=== PATIENT | male | born 1935 | race Caucasian/White ===

== ENCOUNTER 2016-03-08 13:02 | Inpatient (IN) | payer OTHER ==
[~2016-03-08] VITALS: Ht 177.8 cm; Wt 84.7 kg
[~2016-03-08 13:02] MED LIST: AMIO200T4 PO; ASCO250T4 PO; BUME2TAB3 PO; CALC-220 PO; CALC0.2510 PO; CARV25TA2 PO; CHOL100010 PO; CLOP1TAB5 PO; FINA5TAB4 PO; LEVAAER2 INH; MULT-618 PO; NITR0.4S UT; NORT10CA2 PO; NRN100 PO; NVLGI7030 SC; PANC1200 PO; PANT40TA PO; POTA10CA28 PO; SERT25TA PO; SIMV20TA2 PO; SLWMEC PO; SYMIN160 INH; TAMS0.4C59 PO; TRIA0.1C20 TOP; WARF3TAB PO
--- NOTE | 2016-03-08 13:18 | EMERGENCY ROOM VISIT NOTE ---
History Report prepared by Masoud: Binta Jimenez Under the Supervision of: Dr. Ayaan Patten M.D. First contact with patient: 13:07 Stated Complaint: LACERATION/FALOL/DIZZINESS History of Present Illness The patient is an 80 year old male who presents to the Emergency Room with complaints of a sudden syncopal episode that occurred prior to arrival. The patient states that he felt dizzy and lightheaded and then suddenly lost consciousness. He states that he didn't feel well this morning, noting that he didn't eat anything but took his medications. The patient notes that he hit his head during the fall, noting that he is experiencing pain to his head. He additionally notes numbness to his hands, back pain, and pain to his elbows. The patient denies any neck pain, abdominal pain, or hip pain. He notes a history of pancreatic cancer and diabetes. EMS notes that the patient's blood glucose level was low today. The patient notes that he is on Coumadin. Source of History: patient, EMS Onset: prior to arrival Position: other (syncopal) Quality: other (syncopal episode) Timing: other (sudden) Associated Symptoms: + LOC, + back pain, No abdominal pain, No neck pain Note: Associated Symptoms: head pain, numbness to hands, pain to elbows, hit head during fall. Review of Systems See HPI for pertinent positives & negatives. A total of 10 systems reviewed and were otherwise negative. 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 (8) CVA (cerebral vascular accident) (9) Depression (10) DM2 (diabetes mellitus, type 2) (11) Fall (12) GERD (gastroesophageal reflux disease) (13) HLD (hyperlipidemia) (14) HTN (hypertension) (15) Pancreatic cancer (16) Pancreatic insufficiency Surgical Problems: (1) H/O cervical spine surgery (2) H/O hernia repair (3) H/O percutaneous transluminal coronary angioplasty (4) History of cardiac cath (5) History of hip replacement (6) S/P cholecystectomy (7) S/P hip replacement (8) Stented coronary artery Family History Diabetes mellitus FH: cancer FH: gallbladder disease Heart disease Hypertension Kidney disease Lung disease Social History Smoking Status: Former Smoker Drug Use: none Marital Status: single, in relationship Housing Status: lives with family Occupation Status: retired Current/Historical Medications Scheduled Ascorbic Acid (Vitamin C), 500 MG PO DAILY Atorvastatin (Lipitor), 10 MG PO DAILY Calcitriol (Rocaltrol Cap), 0.25 MCG PO MWF Carvedilol (Coreg), 6.25 MG PO BID Cholecalciferol (Vitamin D), 5,000 INTER.UNIT PO DAILY Clopidogrel Bisulfate (Plavix), 75 MG PO DAILY Esomeprazole Magnesium (Nexium), 40 MG PO DAILY Fluticasone Furoate-Vilanterol (Breo Ellipta), 1 PUFF INH DAILY Fluticasone Propionate (Nasal) (Flonase Allergy Relief), 2 SPRAY RICHA DAILY Insulin Aspart Protamine & Asp (Novolog Mix 70/30), 28 UNITS SC QAM Insulin Aspart Protamine & Asp (Novolog Mix 70/30), 12 UNITS SC QPM Magnesium Chloride (Mag64), 1 TAB PO DAILY Multiple Vitamins W/ Minerals (Centrum Silver Ultra Mens), 1 TABLET PO DAILY Nitroglycerin (Nitrostat), 0.4 MG UT PRN Pancrelipase (Lipase-Protease- (Creon 62276), 3 CAP PO with each meal Pancrelipase (Lipase-Protease- (Creon 50953), 1-2 CAP PO WITH SNACKS Potassium Chloride (Micro-K Ext Rel), 10 MEQ PO DAILY Sacubitril-Valsartan (Entresto 24-26 mg), 1 TAB PO BID Sertraline (Zoloft), 25 MG PO DAILY Tamsulosin Hcl (Flomax), 0.4 MG PO DAILY Torsemide (Demadex), 20 MG PO UD Warfarin Sodium (Coumadin), 3 MG PO UD Warfarin Sodium (Coumadin), 1.5 MG PO UD Scheduled PRN Levalbuterol (Xopenex Hfa), 2 PUFFS INH Q4H PRN for SOB/COUGH/WHEEZING Allergies Coded Allergies: Lisinopril (Verified Allergy, Unknown, RASH, 06/24/15) Spironolactone (Verified Allergy, Unknown, unkn, 06/24/15) Zolpidem (Verified Adverse Reaction, Unknown, HALLUCINATIONS, 06/24/15) Physical Exam Vital Signs Date Time Temp Pulse Resp B/P Pulse Ox O2 Delivery O2 Flow Rate FiO2 03/08/16 16:24 112/63 03/08/16 15:55 98/53 03/08/16 15:46 68 20 87/47 96 Room Air 69/45 03/08/16 13:24 67 03/08/16 13:24 36.6 57 14 102/50 94 Room Air Physical Exam GENERAL: Patient is well appearing and in minimal distress. HEENT: Small laceration over top of head. Normocephalic, mucous membranes moist , no nasal congestion, no scleral icterus. NECK: No stridor, no adenopathy, no meningismus, trachea is midline. LUNGS: No dyspnea. Clear to auscultation and equal bilaterally. No wheeze, no rhonchi. HEART: Regular rate and rhythm. No murmurs, rubs, gallops appreciated. ABDOMEN: Soft, nontender, bowel sounds positive, no masses appreciated, no peritonitis. BACK: Abrasion over left flank, nontender. No midline tenderness, no CVA tenderness EXTREMITIES: Tenderness to palpation mildly over the left elbow. Mild tenderness just below left scapula. Normal motion all extremities, no cyanosis , no edema. NEUROLOGIC: Alert and oriented, no acute motor or sensory deficits, no focal weakness, cranial nerves grossly intact. SKIN: No rash, no jaundice, no diaphoresis. Medical Decision & Procedures ER Provider Diagnostic Interpretation: X ray results and stated below per my interpretation and radiologist interpretation. Other radiology results and stated below per my review and radiologist interpretation: CT HEAD WITHOUT CONTRAST (CT) CLINICAL HISTORY: Head trauma, syncope. Head pain. Cough and laceration. COMPARISON STUDY: 08/22/2012 TECHNIQUE: Axial CT of the brain is performed from the vertex to the skull base. IV contrast was not administered for this examination. CT DOSE: 729.78 mGycm FINDINGS: There is scaphocephaly. No intra or extra-axial mass lesions are visualized. There is no CT evidence of acute cortical infarction. There is no evidence of midline shift. There is no acute hemorrhage. No calvarial fractures are visualized. There are patchy white matter hypodensities likely on a small vessel basis. There is a right parietal hypodensity involving both pearce and white matter. This is consistent with an area of prior infarction. There is no evidence of pathologic ventricular dilatation. There is no evidence of acute sinusitis IMPRESSION: Interval right parietal infarct. No acute intracranial findings. Electronically signed by: Mohsen Dobbs M.D. 03/08/2016 2:06 PM CHEST ONE VIEW PORTABLE CLINICAL HISTORY: Syncope COMPARISON STUDY: Chest radiograph June 24, 2015 FINDINGS: Lung volumes are normal. There is no consolidation or evidence of pulmonary edema. Apparent mild increase in mediastinal widening and cardiomegaly is likely due to supine technique. There is decreased sensitivity for detection of pneumothorax but no pneumothorax is identified. IMPRESSION: 1. No acute findings. 2. Apparent increase in size of the cardiac silhouette and mediastinal widening is likely due to supine technique. Electronically signed by: Torsten Dorsey M.D. 03/08/2016 1:[address] DOSE: 953.29 mGycm HISTORY: Trauma. Neuropathy. syncope left arm tingling TECHNIQUE: Multiaxial CT images of the cervical spine were performed and reformatted in the sagittal and coronal plane without the use of contrast. COMPARISON: None. FINDINGS: No evidence for compression deformity. Considerable degenerative change throughout the entire cervical region. Posterior laminectomies from C3 through C7. Considerable degenerative changes C1-C2 complex as well as all lateral facets. Mild anterior and posterior osteophytic reaction throughout. No acute bony abnormality. IMPRESSION: Findings of severe degenerative change combined with extensive posterior laminectomy defects. No acute process is appreciated. Electronically signed by: Korey Aguero M.D. 03/08/2016 2:11 PM Laboratory Results 03/08/16 13:40 Red Blood Count 4.76, Mean Corpuscular Volume 89.1, Mean Corpuscular Hemoglobin 30.7, Mean Corpuscular Hemoglobin Concent 34.4, Mean Platelet Volume 10.0, Neutrophils (%) (Auto) 69.6, Lymphocytes (%) (Auto) 19.8, Monocytes (%) (Auto) 8.6, Eosinophils (%) (Auto) 1.0, Basophils (%) (Auto) 0.2, Neutrophils # (Auto) 8.53, Lymphocytes # (Auto) 2.42, Monocytes # (Auto) 1.05, Eosinophils # (Auto) 0.12, Basophils # (Auto) 0.02 03/08/16 13:40 Test 03/08/16 13:40 White Blood Count 12.24 K/uL (4.8-10.8) Red Blood Count 4.76 M/uL (4.7-6.1) Hemoglobin 14.6 g/dL (14.0-18.0) Hematocrit 42.4 % (42-52) Mean Corpuscular Volume 89.1 fL (80-100) Mean Corpuscular Hemoglobin 30.7 pg (25-34) Mean Corpuscular Hemoglobin Concent 34.4 g/dl (32-36) Platelet Count 211 K/uL (130-400) Mean Platelet Volume 10.0 fL (7.4-10.4) Neutrophils (%) (Auto) 69.6 % Lymphocytes (%) (Auto) 19.8 % Monocytes (%) (Auto) 8.6 % Eosinophils (%) (Auto) 1.0 % Basophils (%) (Auto) 0.2 % Neutrophils # (Auto) 8.53 K/uL (1.4-6.5) Lymphocytes # (Auto) 2.42 K/uL (1.2-3.4) Monocytes # (Auto) 1.05 K/uL (0.11-0.59) Eosinophils # (Auto) 0.12 K/uL (0-0.5) Basophils # (Auto) 0.02 K/uL (0-0.2) RDW Standard Deviation 55.6 fL (36.4-46.3) RDW Coefficient of Variation 17.0 % (11.5-14.5) Immature Granulocyte % (Auto) 0.8 % Immature Granulocyte # (Auto) 0.10 K/uL (0.00-0.02) Ovalocytes 1+ Prothrombin Time 56.2 SECONDS (9.0-12.0) Prothromb Time International Ratio 4.9 (0.9-1.1) Activated Partial Thromboplast Time 40.6 SECONDS (21.0-31.0) Partial Thromboplastin Ratio 1.6 Anion Gap 9.0 mmol/L (3-11) Est Creatinine Clear Calc Drug Dose 25.5 ml/min Estimated GFR () 25.7 Estimated GFR (Non- 22.1 BUN/Creatinine Ratio 35.6 (10-20) Calcium Level 9.0 mg/dl (8.5-10.1) Magnesium Level 2.6 mg/dl (1.8-2.4) Laboratory results as reviewed by me. Medications Administered Medications (Trade) Dose Ordered Sig/Quoc Route Start Time Stop Time Status Last Admin Dose Admin Sodium Chloride (Nss 500ml) 500 ml @ 999 mls/hr Q31M STAT IV 03/08/16 15:51 03/08/16 16:21 DC 03/08/16 15:45 999 MLS/HR ECG Indication: syncope Rate (beats per minute): 40 Rhythm: atrial fibrillation Findings: PVC (multiple), no acute ischemic change ED Course 1310: The patient was evaluated in room B11. A complete history and physical exam was performed. 1439: I reevaluated the patient at this time and he is feeling much better. The patient's is now present and notes that the patient never passed out. She states that the patient became lightheaded and dizzy, and was on the floor, but states that he was not unconscious. 1455: Upon reevaluation, the patient is resting comfortably. I discussed results and treatment plan with the patient. He verbalized understanding and agreement with the treatment plan. The patient will be evaluated for further management. 1502: I discussed the patient's case with Inge Kirkpatrick. He is going to evaluate the patient for further treatment. 1551: Ordered Sodium Chloride 500 ml @ 999 mls/hr IV. 1554: The patient is now hypotensive, but after 500 ml of fluid, his blood pressure is now 98/66 mmHg. He states that he feels fine and I made Inge Kirkpatrick aware of the situation. Medical Decision Differential: Vaso-vagal, Intracerebral Event, Neurologic, Infectious, Volume Deficiency, Hypoglycemia, Electrolyte Abnormality, Cardiac Source, Toxicologic, amongst other pathologies entertained. 80 yr old male arrives for evaluation following near-(vs Total)-Syncopal event resulting in abrasion to top of head. Afib quite bradycardic with many PVCs. Did become significantly hypotensive of uncertain etiology which resolved with fluid bolus. This I am concerned for possible medication accidental OD as he does not at this time appear to have sepsis. Stable and feeling well throughout entire time. Mild bump Cr though not in failure. No symptoms even during hypotension (verified bilateral arms). Will need to come in for further work-up and evaluation. Consults Time Called: 1450 Consulting Physician: Inge Kirkpatrick Returned Call: [phone] I discussed the patient's case with Inge Kirkpatrick. He is going to evaluate the patient for further treatment. Impression Primary Impression: Bradycardia Additional Impressions: Syncope, Closed head injury, Supratherapeutic INR, Acute on chronic renal insufficiency Scribe Attestation The scribe's documentation has been prepared under my direction and personally reviewed by me in its entirety. I confirm that the note above accurately reflects all work, treatment, procedures, and medical decision making performed by me. Departure Information Dispostion Being Evaluated By Hospitalist Referrals Jadiel Ferrer M.D. (PCP)
--- NOTE | 2016-03-08 13:41 | DIAGNOSTIC IMAGING REPORT ---
CHEST ONE VIEW PORTABLE CLINICAL HISTORY: Syncope COMPARISON STUDY: Chest radiograph June 24, 2015 FINDINGS: Lung volumes are normal. There is no consolidation or evidence of pulmonary edema. Apparent mild increase in mediastinal widening and cardiomegaly is likely due to supine technique. There is decreased sensitivity for detection of pneumothorax but no pneumothorax is identified. IMPRESSION: 1. No acute findings. 2. Apparent increase in size of the cardiac silhouette and mediastinal widening is likely due to supine technique. Electronically signed by: Torsten Dorsey M.D. 03/08/2016 1:39 PM
[2016-03-08 13:56] LABS: HEMATOCRIT 42.4 % (42-52); MEAN CELL VOLUME 89.1 fL (80-100); MEAN CORPUSCULAR HEMOGLOBIN 30.7 pg (25-34); MEAN CORPUSCULAR HGB CONC 34.4 g/dl (32-36); PLATELET COUNT 211 K/uL (130-400); RED BLOOD COUNT 4.76 M/uL (4.7-6.1); WHITE BLOOD COUNT 12.24 K/uL (4.8-10.8)
--- NOTE | 2016-03-08 14:07 | DIAGNOSTIC IMAGING REPORT ---
CT HEAD WITHOUT CONTRAST (CT) CLINICAL HISTORY: Head trauma, syncope. Head pain. Cough and laceration. COMPARISON STUDY: 08/22/2012 TECHNIQUE: Axial CT of the brain is performed from the vertex to the skull base. IV contrast was not administered for this examination. CT DOSE: 729.78 mGycm FINDINGS: There is scaphocephaly. No intra or extra-axial mass lesions are visualized. There is no CT evidence of acute cortical infarction. There is no evidence of midline shift. There is no acute hemorrhage. No calvarial fractures are visualized. There are patchy white matter hypodensities likely on a small vessel basis. There is a right parietal hypodensity involving both pearce and white matter. This is consistent with an area of prior infarction. There is no evidence of pathologic ventricular dilatation. There is no evidence of acute sinusitis IMPRESSION: Interval right parietal infarct. No acute intracranial findings. Electronically signed by: Mohsen Dobbs M.D. 03/08/2016 2:06 PM
[2016-03-08 14:12] LABS: PARTIAL THROMBOPLASTIN RATIO 1.6; PROTHROMBIN TIME (PATIENT) 56.2 SECONDS (9.0-12.0)
--- NOTE | 2016-03-08 14:12 | DIAGNOSTIC IMAGING REPORT ---
CERVICAL SPINE CT CT DOSE: 953.29 mGycm HISTORY: Trauma. Neuropathy. syncope left arm tingling TECHNIQUE: Multiaxial CT images of the cervical spine were performed and reformatted in the sagittal and coronal plane without the use of contrast. COMPARISON: None. FINDINGS: No evidence for compression deformity. Considerable degenerative change throughout the entire cervical region. Posterior laminectomies from C3 through C7. Considerable degenerative changes C1-C2 complex as well as all lateral facets. Mild anterior and posterior osteophytic reaction throughout. No acute bony abnormality. IMPRESSION: Findings of severe degenerative change combined with extensive posterior laminectomy defects. No acute process is appreciated. Electronically signed by: Korey Aguero M.D. 03/08/2016 2:11 PM
[2016-03-08 14:19] LABS: BASO % 0.2 %; BASO ABS # 0.02 K/uL (0-0.2); COMPLETE YES; IG% 0.8 %; LYMPH % 19.8 %; LYMPH ABS # 2.42 K/uL (1.2-3.4); MONO % 8.6 %; NEUT % 69.6 %; OVALOCYTES 1+
[2016-03-08 14:22] LABS: INR 4.9 (0.9-1.1)
[2016-03-08] MEDS ORDERED: FLUT0.15 NAE (14:38)
[2016-03-08 14:39] LABS: BUN/CREATININE RATIO 35.6 (10-20); CREATININE 2.6 mg/dl (0.60-1.40)
[2016-03-08] MEDS ORDERED: FLUT1INH INH (14:39)
[2016-03-08] MEDS ORDERED: TORS20TA2 PO (14:39)
[2016-03-08] MEDS ORDERED: CARV6.25 PO (14:39)
[2016-03-08] MEDS ORDERED: NXM/40 PO (14:39)
[2016-03-08] MEDS ORDERED: SACU1TAB PO (14:39)
[2016-03-08] MEDS ORDERED: ATOR10TA88 PO (14:39)
[2016-03-08] MEDS ORDERED: SODIUM CHLORIDE 0.9% 500ML 500 ML IV STA (15:51)
[2016-03-08] MEDS ORDERED: NITROGLYCERIN 0.4 MG SL PER TAB CHARGE SL PRN (17:00)
[2016-03-08] MEDS ORDERED: ONDANSETRON INJ 2 MG/ML 2 ML VIAL IV PRN (17:00)
[2016-03-08] MEDS ORDERED: GLUCOSE 10 TABS/TUBE PO PRN (17:15)
[2016-03-08] MEDS ORDERED: GLUCOSE 40% GEL 15 GM TUBE PO PRN (17:15)
[2016-03-08] MEDS ORDERED: GLUCAGON FOR INJ 1 MG VIAL SQ PRN (17:15)
[2016-03-08] MEDS ORDERED: DEXTROSE 50% 50 ML SYR IV PRN (17:15)
[2016-03-08 18:10] LABS: MAGNESIUM 2.6 mg/dl (1.8-2.4)
[2016-03-08 18:43] VITALS: BP 104/50; PULSE 48; TEMP 36.7; O2SAT 97; BMI 29.4
[2016-03-08 19:19] VITALS: BP 107/57; PULSE 46; TEMP 36.3; O2SAT 97
[2016-03-08 19:30] VITALS: BP 106/49; PULSE 55; TEMP 36.3; O2SAT 95
[2016-03-08] MEDS ORDERED: PANCREAZE (LIPASE 10,500U) CAP PO PRN (19:45)
[2016-03-08] MEDS ORDERED: PHARMACY GLYCEMIC MGMT CONSULT PRN (19:45)
[2016-03-08 20:00] VITALS: O2SAT 95
[2016-03-08] MEDS ORDERED: SODIUM CHLORIDE 0.9% 1000ML 1,000 ML IV SCH (20:00)
[2016-03-08 20:04] LABS: URINE APPEARANCE CLEAR (CLEAR); URINE BILIRUBIN NEG (NEG); URINE COLOR YELLOW; URINE NITRITE NEG (NEG); URINE SPECIFIC GRAVITY 1.005 (1.000-1.030); UROBILINOGEN NEG (NEG)
[2016-03-08 20:05] LABS: MANUAL MICROSCOPIC REQUIRED? NO; REVIEW REQ? NO
[2016-03-08 20:22] LABS: CKMB/CK RATIO 7.9 (0-3.0)
[2016-03-08] MEDS: ACETAMINOPHEN 325 MG TAB PO PRN (20:47)
[2016-03-08] MEDS: INSULIN ASPART 100 UNITS/ML 3 ML PEN SC SCH (20:53)
[2016-03-08] MEDS: PANTOprazole INJ 40 MG in SYRINGE 0 ML IV SCH (21:41)
--- NOTE | 2016-03-08 22:42 | History and Physical ---
History & Physical Date & Time of Service: Mar 08, 2016 at 22:25 Chief Complaint: FALL Primary Care Physician: Jadiel Ferrer M.D. 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 Follows with [facility]. Patient admits to having poor appetite for the past few weeks now. Report intermittent dry heaving and epigastric pain. Today, patient woke up not feeling well- weak. He did not have breakfast, but administered usual Insulin dose. In the afternoon, patient got up from the chair and walked to go the bathroom. While walking, he felt dizziness and fell on the floor hitting his head on the cupboard. The fall was witnessed by his partner- no loss of consciousness, confusion, seizures noted. No chest pain,dyspnea, palpitations. Patient then brought to the ER by ambulance. At the ED, while being monitored, he was noted to be in A fib, HR 60s, but frequently drops to 30s. BP also noted to be as low as 69/45 as well, which responded to fluid challenge. On my exam, patient appears weak but alert, oriented, denies chest pain, dyspnea , dizziness, palpitations, nausea. Has some left shoulder pain after the fall. Past Medical/Surgical History Medical Problems: (1) Afib Status: Chronic (2) BPH (benign prostatic hyperplasia) Status: Chronic (3) CAD (coronary artery disease) Status: Chronic (4) CHF (congestive heart failure) Status: Chronic (5) CKD (chronic kidney disease), stage III Status: Chronic (6) COPD (chronic obstructive pulmonary disease) Status: Chronic (7) Current use of alf anticoagulation Status: Chronic (8) CVA (cerebral vascular accident) Status: Chronic (9) Depression Status: Chronic (10) DM2 (diabetes mellitus, type 2) Status: Chronic (11) GERD (gastroesophageal reflux disease) Status: Chronic (12) HLD (hyperlipidemia) Status: Chronic (13) HTN (hypertension) Status: Chronic (14) Pancreatic cancer Permanent Comment: [facility] 02/04 s/p neoadjuvant chemoradiotherapy 2005 Jason Urena MD Status: Chronic (15) Pancreatic insufficiency Status: Chronic Surgical Problems: (1) H/O cervical spine surgery Status: Chronic (2) H/O hernia repair Status: Chronic (3) H/O percutaneous transluminal coronary angioplasty Status: Resolved (4) History of cardiac cath Permanent Comment: with stent placement Status: Chronic (5) History of hip replacement Status: Chronic (6) S/P cholecystectomy Status: Chronic (7) S/P hip replacement Status: Chronic (8) Stented coronary artery Status: Chronic Family History Diabetes mellitus FH: cancer FH: gallbladder disease Heart disease Hypertension Kidney disease Lung disease Social History Smoking Status: Former Smoker Drug Use: none Marital Status: single, in relationship Housing status: lives with family Occupational Status: retired Immunizations History of Influenza Vaccine: Yes Influenza Vaccine Date: Jan 19, 2015 History of Tetanus Vaccine?: Unknown History of Pneumococcal: Yes Pneumococcal Date: Dec 21, 2010 History of Hepatitis B Vaccine: Unknown Multi-Drug Resistant Organisms History of MDRO: No Allergies Coded Allergies: Lisinopril (Verified Allergy, Unknown, RASH, 06/24/15) Spironolactone (Verified Allergy, Unknown, unkn, 06/24/15) Zolpidem (Verified Adverse Reaction, Unknown, HALLUCINATIONS, 06/24/15) Home Medications Scheduled Ascorbic Acid (Vitamin C), 500 MG PO DAILY Atorvastatin (Lipitor), 10 MG PO DAILY Calcitriol (Rocaltrol Cap), 0.25 MCG PO MWF Carvedilol (Coreg), 6.25 MG PO BID Cholecalciferol (Vitamin D), 5,000 INTER.UNIT PO DAILY Clopidogrel Bisulfate (Plavix), 75 MG PO DAILY Esomeprazole Magnesium (Nexium), 40 MG PO DAILY Fluticasone Furoate-Vilanterol (Breo Ellipta), 1 PUFF INH DAILY Fluticasone Propionate (Nasal) (Flonase Allergy Relief), 2 SPRAY RICHA DAILY Insulin Aspart Protamine & Asp (Novolog Mix 70/30), 28 UNITS SC QAM Insulin Aspart Protamine & Asp (Novolog Mix 70/30), 12 UNITS SC QPM Magnesium Chloride (Mag64), 1 TAB PO DAILY Multiple Vitamins W/ Minerals (Centrum Silver Ultra Mens), 1 TABLET PO DAILY Nitroglycerin (Nitrostat), 0.4 MG UT PRN Pancrelipase (Lipase-Protease- (Creon 59334), 3 CAP PO with each meal Pancrelipase (Lipase-Protease- (Creon 76866), 1-2 CAP PO WITH SNACKS Potassium Chloride (Micro-K Ext Rel), 10 MEQ PO DAILY Sacubitril-Valsartan (Entresto 24-26 mg), 1 TAB PO BID Sertraline (Zoloft), 25 MG PO DAILY Tamsulosin Hcl (Flomax), 0.4 MG PO DAILY Torsemide (Demadex), 20 MG PO UD Warfarin Sodium (Coumadin), 3 MG PO UD Warfarin Sodium (Coumadin), 1.5 MG PO UD Scheduled PRN Levalbuterol (Xopenex Hfa), 2 PUFFS INH Q4H PRN for SOB/COUGH/WHEEZING Review of Systems Constitutional- no fever; no weight loss Eyes- no acute visual changes ENT- no sinus drainage; no pharyngitis Pulmonary- no cough, no wheezing, no shortness of breath Cardiac- no chest pain, no palpitations, no orthopnea, no dependent edema GI- (+) as noted above - no dysuria, no hematuria Musculoskeletal- (+) left shoulder pain, no myalgias Derm- no rashes, no new skin lesions, no changing skin lesions Hematologic- no unusual bruising, no unusual bleeding Lymphatics- no adenopathy Endocrine- no polyuria or polydipsia; no heat or cold intolerance Neuro- no headaches, no focal neurologic symptoms Psych- no anxiety, no depression Physical Exam Vital Signs Date Time Temp Pulse Resp B/P Pulse Ox O2 Delivery O2 Flow Rate FiO2 03/08/16 19:30 36.3 55 18 106/49 95 Room Air 03/08/16 19:19 36.3 46 18 107/57 97 Room Air 03/08/16 18:43 36.7 48 19 104/50 97 Room Air 03/08/16 17:47 52 16 90/49 94 Room Air 03/08/16 16:24 112/63 03/08/16 15:55 98/53 03/08/16 15:46 68 20 87/47 96 Room Air 69/45 03/08/16 13:24 67 03/08/16 13:24 36.6 57 14 102/50 94 Room Air General Appearance: WD/WN, no apparent distress Head: + pertinent finding ((+) abrasion ont he left parietal region) Eyes: normal inspection, EOMI, sclerae normal ENT: normal ENT inspection, pharynx normal, + pertinent finding (poor hearing) Neck: supple, no adenopathy, thyroid normal, no JVD, trachea midline Respiratory/Chest: chest non-tender, lungs clear, normal breath sounds, no respiratory distress, no accessory muscle use Cardiovascular: no murmur, + irregularly irregular Abdomen/GI: normal bowel sounds, non tender, soft, no organomegaly Back: normal inspection, no CVA tenderness Extremities/Musculoskelatal: normal inspection, no calf tenderness, no pedal edema, normal range of motion Neurologic/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: 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, no motor/sensory deficits, alert, normal mood/affect, normal reflexes, oriented x 3 Skin: normal color, warm/dry, no rash Lymphatic: no adenopathy Diagnostics Laboratory Results Results Past 24 Hours Test 03/08/16 13:33 03/08/16 13:40 03/08/16 16:47 03/08/16 18:07 Range/Units Bedside Glucose 66 136 115 70-99 mg/dl White Blood Count 12.24 4.8-10.8 K/uL Red Blood Count 4.76 4.7-6.1 M/uL Hemoglobin 14.6 14.0-18.0 g/dL Hematocrit 42.4 42-52 % Mean Corpuscular Volume 89.1 80-100 fL Mean Corpuscular Hemoglobin 30.7 25-34 pg Mean Corpuscular Hemoglobin Concent 34.4 32-36 g/dl Platelet Count 211 130-400 K/uL Mean Platelet Volume 10.0 7.4-10.4 fL Neutrophils (%) (Auto) 69.6 % Lymphocytes (%) (Auto) 19.8 % Monocytes (%) (Auto) 8.6 % Eosinophils (%) (Auto) 1.0 % Basophils (%) (Auto) 0.2 % Neutrophils # (Auto) 8.53 1.4-6.5 K/uL Lymphocytes # (Auto) 2.42 1.2-3.4 K/uL Monocytes # (Auto) 1.05 0.11-0.59 K/uL Eosinophils # (Auto) 0.12 0-0.5 K/uL Basophils # (Auto) 0.02 0-0.2 K/uL RDW Standard Deviation 55.6 36.4-46.3 fL RDW Coefficient of Variation 17.0 11.5-14.5 % Immature Granulocyte % (Auto) 0.8 % Immature Granulocyte # (Auto) 0.10 0.00-0.02 K/uL Ovalocytes 1+ Prothrombin Time 56.2 9.0-12.0 SECONDS Prothromb Time International Ratio 4.9 0.9-1.1 Activated Partial Thromboplast Time 40.6 21.0-31.0 SECONDS Partial Thromboplastin Ratio 1.6 Sodium Level 142 136-145 mmol/L Potassium Level 4.0 3.5-5.1 mmol/L Chloride Level 107 98-107 mmol/L Carbon Dioxide Level 26 21-32 mmol/L Anion Gap 9.0 3-11 mmol/L Blood Urea Nitrogen 93 7-18 mg/dl Creatinine 2.60 0.60-1.40 mg/dl Est Creatinine Clear Calc Drug Dose 25.5 ml/min Estimated GFR () 25.7 Estimated GFR (Non- 22.1 BUN/Creatinine Ratio 35.6 10-20 Random Glucose 60 70-99 mg/dl Calcium Level 9.0 8.5-10.1 mg/dl Magnesium Level 2.6 1.8-2.4 mg/dl Troponin I 0.274 0-0.045 ng/ml Test 03/08/16 19:15 03/08/16 19:50 03/08/16 20:40 Range/Units Total Creatine Kinase 38 39-308 U/L Creatine Kinase MB 3.0 0.5-3.6 ng/ml Creatine Kinase MB Ratio 7.9 0-3.0 Troponin I 0.290 0-0.045 ng/ml Urine Color YELLOW Urine Appearance CLEAR CLEAR Urine pH 5.0 4.5-7.5 Urine Specific [place] 1.005 1.000-1.030 Urine Protein NEG NEG Urine Glucose (UA) NEG NEG Urine Ketones NEG NEG Urine Occult Blood NEG NEG Urine Nitrite NEG NEG Urine Bilirubin NEG NEG Urine Urobilinogen NEG NEG Urine Leukocyte Esterase NEG NEG Bedside Glucose 275 70-99 mg/dl Microbiology Results 03/08/16 Blood Culture, Received Pending 03/08/16 Blood Culture, Received Pending Diagnostic Radiology CT head: IMPRESSION: Interval right parietal infarct. No acute intracranial findings. CXR: 1. No acute findings. 2. Apparent increase in size of the cardiac silhouette and mediastinal widening is likely due to supine technique. Cervical Spine CT: IMPRESSION: Findings of severe degenerative change combined with extensive posterior laminectomy defects. No acute process is appreciated. 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 FALL, PRESYNCOPE LIKELY SECONDARY TO: ORTHOSTASIS, VOLUME DEPLETION - secondary to poor appetite, continued use of diuretics - gentle IV fluids hold Coreg, Entresto, Torsemide for now HYPOGLYCEMIA - poor oral intake, continue use of Novolog - Insulin Sliding scale for now R/O ACS - cardiac markers, echo R/O SYMPTOMATIC BRADYCARDIA - HR observed to be dropping to the 30s, asymptomatic, BP stable - check TSH - Co reg held - monitor for now - Cardiology consulted R/O INFECTION - check urine and blood cultures NAUSEA, POOR APPETITE - history of hiatal hernia per patient - Protonix - may need GI consult if persistent HISTORY OF CAD - cardiac markers, echo - on coumadin, plavix hold Coreg and Entresto for now NON ISCHEMIC CARDIOMYOPATHY - volume depleted - hold Torsemide - gentle IV fluids A FIB, ON COUMADIN - INR 4.9 - coumadin held monitor daily DM 2 - hold Novolog ISS for now Pharmacy consult may need to reduce dose of insulin as patient's appetite has been very poor HYPERTENSION - patient's blood pressure on the lower side - hold Coreg, Entresto, Torsemide for now CKD 3 - baseline around 1.5, but increasing to 2-2.2 the past few months - monitor HISTORY OF CVA - on coumadin, Plavix COPD not in exacerbation HISTORY OF PANCREATIC CANCER - on creON DVT prophylaxis on coumadin Code status Full code as per patient Disposition pending lives at home will need PT/OT Advanced Directives Existing Advance Directive: Yes Existing Living Will: Yes Existing Power of Supervisor Vendor Quality: Yes VTE Prophylaxis VTE Risk Assessment Done? Y/N: Yes Risk Level: Moderate
[2016-03-08] MEDS ORDERED: INSULIN GLARGINE SOLOSTAR 100 UNITS/ML 3 ML PEN SC SCH (22:45)
[2016-03-08 23:25] VITALS: BP_SYST 73; BP_SYST 90; BP_DIAS 41; BP_DIAS 49; PULSE 44; PULSE 52; TEMP 36.4; O2SAT 95
[2016-03-08] MEDS ORDERED: NURSING VERBAL MED ORDER ONE (23:45)
[2016-03-08 23:59] LABS: CKMB/CK RATIO 8.4 (0-3.0)
[2016-03-09] VITALS (49 sets, daily range): BP systolic 88–147; BP diastolic 38–69; PULSE 39–78; TEMP 36.6–36.8; O2SAT 90–99; Ht 177.8 cm; Wt 84.7 kg
[2016-03-09] MEDS ORDERED: NURSING VERBAL MED ORDER ONE (00:30)
--- NOTE | 2016-03-09 00:38 | Progress Note ---
Progress Note attending addendum: noted to have hypotension at around 1130pm, 70/30s; HR 44 external pacemaker placed, to maintain HR > 50; 500cc NSS given as bolus BP improved to systolic 100, HR 50-60s discussed with Dr. Ellis will transfer to ICU called [facility]- no answer, left a voicemail requesting for callback to update her on patient's status Donnie Lo MD
[2016-03-09] MEDS ORDERED: SODIUM CHLORIDE 0.9% 1000ML 500 ML IV ONE (00:45)
[2016-03-09] MEDS ORDERED: DOPamine 400MG / 250ML D5W ONE (02:27)
[2016-03-09] MEDS ORDERED: DOPamine 400MG / D5W 400 MG IV PRN (02:30)
[2016-03-09 06:05] LABS: HEMATOCRIT 42.3 % (42-52); MEAN CELL VOLUME 87.4 fL (80-100); MEAN CORPUSCULAR HEMOGLOBIN 30.2 pg (25-34); MEAN CORPUSCULAR HGB CONC 34.5 g/dl (32-36); MEAN PLATELET VOLUME 10.1 fL (7.4-10.4); PLATELET COUNT 218 K/uL (130-400); RED BLOOD COUNT 4.84 M/uL (4.7-6.1); WHITE BLOOD COUNT 12.18 K/uL (4.8-10.8)
[2016-03-09] MEDS: INSULIN ASPART 100 UNITS/ML 3 ML PEN SC SCH ×4 (06:05→20:50)
[2016-03-09 06:17] LABS: PROTHROMBIN TIME (PATIENT) 65.1 SECONDS (9.0-12.0)
[2016-03-09 06:21] LABS: INR 5.7 (0.9-1.1)
[2016-03-09 06:41] LABS: BUN/CREATININE RATIO 31.7 (10-20); CREATININE 2.7 mg/dl (0.60-1.40); MAGNESIUM 2.2 mg/dl (1.8-2.4); THYROID STIMULATING HORMONE 0.466 uIu/ml (0.300-4.500)
[2016-03-09 06:46] LABS: BASO % 0.1 %; BASO ABS # 0.01 K/uL (0-0.2); COMPLETE YES; ECHINOCYTES 1+; IG% 1.3 %; LYMPH % 18.9 %; MONO % 7.3 %; NEUT % 70.4 %; OVALOCYTES 1+
[2016-03-09 06:55] LABS: ESTIMATED AVERAGE GLUCOSE 189 mg/dl; HA1C FLAG Normal (Normal)
--- NOTE | 2016-03-09 07:12 | Critical Care Consultation ---
Critical Care Consultation Date of Consultation: Mar 09, 2016. Attending Physician: Meche Madrigal.Hoda Reason for Consultation: A-fib with heart rates dropping to the 30s frequently History of Present Illness This is an 80 year old white male that presented to [facility] for a fall, and has a significant past medical history of CAD, A-Fib on Coumadin, and Non-ischemic Cardiomyopathy with and EF of 33% baseline, DM II, HTN, CKD3, CVA. He follows with [facility]. Patient has a poor appetite for the last few weeks, as well as dry heaving epigastric pain. The patient woke up feeling weak and did not eat breakfast, but took his usual morning insulin dose. Later in the day , he became dizzy while walking to the bathroom and fell head-first, and hit his left shoulder on the way down. It was witnessed by his partner. He is unsure whether he lost consciousness, seize, or experience chest pain, palpitations, dyspnea. He was brought to the ED by ambulance. In the ED he had an episode of A-Fib, and a fluctuating HR from the 60s to 30s, and hypotensive BP's as low as 69/45. He was given IV fluids, which improved his state. He is anxious today about his status. He complains of left hand numbness that has been present ever since he hit his left shoulder. His left shoulder is achy with ROM due to the fall. Past Medical/Surgical History Whipple Procedure for Pancreatic Cancer, patient does not know how long ago Family History Diabetes mellitus FH: cancer FH: gallbladder disease Heart disease Hypertension Kidney disease Lung disease Social History Smoking Status: Former Smoker Drug Use: none Marital Status: single, in relationship Housing Status: lives with family Occupation Status: retired Allergies Coded Allergies: Lisinopril (Verified Allergy, Unknown, RASH, 06/24/15) Spironolactone (Verified Allergy, Unknown, unkn, 06/24/15) Zolpidem (Verified Adverse Reaction, Unknown, HALLUCINATIONS, 06/24/15) Home Medications Scheduled Ascorbic Acid (Vitamin C), 500 MG PO DAILY Atorvastatin (Lipitor), 10 MG PO DAILY Calcitriol (Rocaltrol Cap), 0.25 MCG PO MWF Carvedilol (Coreg), 6.25 MG PO BID Cholecalciferol (Vitamin D), 5,000 INTER.UNIT PO DAILY Clopidogrel Bisulfate (Plavix), 75 MG PO DAILY Esomeprazole Magnesium (Nexium), 40 MG PO DAILY Fluticasone Furoate-Vilanterol (Breo Ellipta), 1 PUFF INH DAILY Fluticasone Propionate (Nasal) (Flonase Allergy Relief), 2 SPRAY RICHA DAILY Insulin Aspart Protamine & Asp (Novolog Mix 70/30), 28 UNITS SC QAM Insulin Aspart Protamine & Asp (Novolog Mix 70/30), 12 UNITS SC QPM Magnesium Chloride (Mag64), 1 TAB PO DAILY Multiple Vitamins W/ Minerals (Centrum Silver Ultra Mens), 1 TABLET PO DAILY Nitroglycerin (Nitrostat), 0.4 MG UT PRN Pancrelipase (Lipase-Protease- (Creon 30953), 3 CAP PO with each meal Pancrelipase (Lipase-Protease- (Creon 88863), 1-2 CAP PO WITH SNACKS Potassium Chloride (Micro-K Ext Rel), 10 MEQ PO DAILY Sacubitril-Valsartan (Entresto 24-26 mg), 1 TAB PO BID Sertraline (Zoloft), 25 MG PO DAILY Tamsulosin Hcl (Flomax), 0.4 MG PO DAILY Torsemide (Demadex), 20 MG PO UD Warfarin Sodium (Coumadin), 3 MG PO UD Warfarin Sodium (Coumadin), 1.5 MG PO UD Scheduled PRN Levalbuterol (Xopenex Hfa), 2 PUFFS INH Q4H PRN for SOB/COUGH/WHEEZING Current Inpatient Medications Current Inpatient Medications Medications (Trade) Dose Ordered Sig/Quoc Route Start Time Stop Time Status Last Admin Dose Admin Sodium Chloride (Nss 1000ml) 1,000 ml @ 75 mls/hr [id number] IV 03/08/16 20:00 04/07/16 19:59 03/08/16 19:45 50 MLS/HR Acetaminophen (Tylenol Tab) 650 mg Q4H PRN PO 03/08/16 17:00 04/07/16 16:59 03/08/16 20:47 650 MG Ondansetron HCl (Zofran Inj) 4 mg Q6H PRN IV 03/08/16 17:00 04/07/16 16:59 Nitroglycerin (Nitrostat Tab) 0.4 mg UD PRN SL 03/08/16 17:00 04/07/16 16:59 Insulin Aspart SLIDING SCALE G... ACHS SC 03/08/16 21:00 04/07/16 20:59 03/08/16 20:53 6 UNITS Pantoprazole Sodium/Syringe (Protonix Inj/ Syringe) 10 ml @ 5 mls/min DAILY@09,21 IV 03/08/16 21:00 04/07/16 20:59 03/08/16 21:41 5 MLS/MIN Glucose (Glucose 40% Gel) 15-30 GRAMS 15 GRAMS... UD PRN PO 03/08/16 17:15 04/07/16 17:14 Glucose (Glucose Chew Tab) 4-8 Tablets 4 Tabl... UD PRN PO 03/08/16 17:15 04/07/16 17:14 Dextrose (Dextrose 50% 50ML Syringe) 25-50ML OF 50% DW IV FOR... UD PRN IV 03/08/16 17:15 04/07/16 17:14 Glucagon (Glucagon Inj) 1 mg UD PRN SQ 03/08/16 17:15 04/07/16 17:14 Miscellaneous Information (Consult Glycemic Management Pharmacy) 1 ea UD PRN N/A 03/08/16 19:45 04/07/16 19:44 Atorvastatin Calcium (Lipitor Tab) 10 mg DAILY PO 03/09/16 09:00 04/08/16 08:59 Calcitriol (Rocaltrol Cap) 0.25 mcg DAILY PO 03/09/16 09:00 04/08/16 08:59 Clopidogrel Bisulfate (plAVix TAB) 75 mg DAILY PO 03/09/16 09:00 04/08/16 08:59 Fluticasone Propionate (Flonase Nasal [place]) 2 sprays DAILY RICHA 03/09/16 09:00 04/08/16 08:59 Levalbuterol (Xopenex Hfa Inhaler) 2 puffs Q4H PRN INH 03/08/16 17:30 04/07/16 17:29 Multivitamins/ Minerals (Multivitamin W/ Minerals Tab) 1 tab DAILY PO 03/09/16 09:00 04/08/16 08:59 Sertraline HCl (Zoloft Tab) 25 mg DAILY PO 03/09/16 09:00 04/08/16 08:59 Tamsulosin HCl (Flomax Cap) 0.4 mg DAILY PO 03/09/16 09:00 04/08/16 08:59 Miscellaneous Information (Order Awaiting Action) 1 ea QS N/A 03/08/16 19:45 04/07/16 19:44 Amylase/Lipase/ Protease (Pancreaze (Lipase 10,500U) Cap) 2 cap TIDM PO 03/09/16 07:15 04/08/16 07:29 Amylase/Lipase/ Protease (Pancreaze (Lipase 10,500U) Cap) 1-2 CAPS WITH SNACKS UD PRN PO 03/08/16 19:45 04/07/16 19:44 Insulin Glargine 10 unit 10 unit BID SC 03/08/16 22:45 04/07/16 22:44 03/08/16 23:10 10 UNIT Dopamine HCl/ Dextrose (DOPamine 400MG / D5W) 250 ml @ 0 mls/hr Q0M PRN IV 03/09/16 02:30 04/08/16 02:29 Review of Systems Constitutional: + fever (complains of daily fevers "head ackerman up" first with meals, and now frequently throughout the days), + weight loss (8 lbs in last month) Eyes: + eye pain (photophobia) ENT: + hearing loss (hear loss noted in right ear), No nasal symptoms, No sore throat, No tinnitus Respiratory: + wheezing, No cough, No shortness of breath Cardiovascular: No chest pain, No palpitations Abdomen: + nausea, + pain, + vomiting, No constipation, No diarrhea Musculoskeletal: + joint pain Genitourinary - Male: + urinary frequency Neurologic: + numbness/tingling (left hand numbness reported) Endocrine: + excessive urination Integumentary: + problem reported (ecchymosis 2x2 cm area on top of head d/t fall, small hematoma right AC space) Physical Exam Date Time Temp Pulse Resp B/P Pulse Ox O2 Delivery O2 Flow Rate FiO2 03/09/16 06:03 64 23 112/69 97 Nasal Cannula 2.0 03/09/16 04:21 Nasal Cannula 2.0 03/09/16 04:00 67 19 124/60 95 Nasal Cannula 2.0 03/09/16 02:42 47 23 97/60 93 03/09/16 02:17 47 23 97/51 95 03/09/16 00:17 95/57 101/49 03/09/16 00:01 95 Room Air 03/08/16 23:25 36.4 44 16 90/49 95 Room Air 52 73/41 03/08/16 20:00 95 Room Air 03/08/16 19:30 36.3 55 18 106/49 95 Room Air 03/08/16 19:19 36.3 46 18 107/57 97 Room Air 03/08/16 18:43 36.7 48 19 104/50 97 Room Air 03/08/16 17:47 52 16 90/49 94 Room Air 03/08/16 16:24 112/63 03/08/16 15:55 98/53 03/08/16 15:46 68 20 87/47 96 Room Air 69/45 03/08/16 13:24 67 03/08/16 13:24 36.6 57 14 102/50 94 Room Air General Appearance: no apparent distress Head: normocephalic Eyes: PERRLA, no discharge, EOMI, sclerae normal, conjunctivae normal ENT: normal ear exam, normal mouth exam (no dentition) Neck: normal range of motion, trachea midline, no stridor, supple, no lymphadenopathy, other (pain to palpation over left lateral neck) Respiratory: no tenderness, wheezing Cardiovasular: irregular rate (bradycardia) Abdomen: normal bowel sounds, no rebound, no masses, guarding Genitourinary - Male: external genitalia normal Back: normal inspection Upper Extremities: no edema, deformity (third digit on right hand distal portion missing, d/t injury) Lower Extremities: no edema Pulses: dorsalis pedis (R) (1+), dorsalis pedis (L) (1+) Neuro: alert, oriented x 3, normal motor exam Psychiatric: normal affect, no suicidal ideation Laboratory Results Last 24 Hours Test 03/08/16 13:33 03/08/16 13:40 03/08/16 16:47 03/08/16 18:07 Bedside Glucose 66 mg/dl 136 mg/dl 115 mg/dl White Blood Count 12.24 K/uL Red Blood Count 4.76 M/uL Hemoglobin 14.6 g/dL Hematocrit 42.4 % Mean Corpuscular Volume 89.1 fL Mean Corpuscular Hemoglobin 30.7 pg Mean Corpuscular Hemoglobin Concent 34.4 g/dl Platelet Count 211 K/uL Mean Platelet Volume 10.0 fL Neutrophils (%) (Auto) 69.6 % Lymphocytes (%) (Auto) 19.8 % Monocytes (%) (Auto) 8.6 % Eosinophils (%) (Auto) 1.0 % Basophils (%) (Auto) 0.2 % Neutrophils # (Auto) 8.53 K/uL Lymphocytes # (Auto) 2.42 K/uL Monocytes # (Auto) 1.05 K/uL Eosinophils # (Auto) 0.12 K/uL Basophils # (Auto) 0.02 K/uL RDW Standard Deviation 55.6 fL RDW Coefficient of Variation 17.0 % Immature Granulocyte % (Auto) 0.8 % Immature Granulocyte # (Auto) 0.10 K/uL Ovalocytes 1+ Prothrombin Time 56.2 SECONDS Prothromb Time International Ratio 4.9 Activated Partial Thromboplast Time 40.6 SECONDS Partial Thromboplastin Ratio 1.6 Sodium Level 142 mmol/L Potassium Level 4.0 mmol/L Chloride Level 107 mmol/L Carbon Dioxide Level 26 mmol/L Anion Gap 9.0 mmol/L Blood Urea Nitrogen 93 mg/dl Creatinine 2.60 mg/dl Est Creatinine Clear Calc Drug Dose 25.5 ml/min Estimated GFR () 25.7 Estimated GFR (Non- 22.1 BUN/Creatinine Ratio 35.6 Random Glucose 60 mg/dl Calcium Level 9.0 mg/dl Magnesium Level 2.6 mg/dl Troponin I 0.274 ng/ml Test 03/08/16 19:15 03/08/16 19:50 03/08/16 20:40 03/08/16 22:55 Total Creatine Kinase 38 U/L 37 U/L Creatine Kinase MB 3.0 ng/ml 3.1 ng/ml Creatine Kinase MB Ratio 7.9 8.4 Troponin I 0.290 ng/ml 0.275 ng/ml Urine Color YELLOW Urine Appearance CLEAR Urine pH 5.0 Urine Specific Story 1.005 Urine Protein NEG Urine Glucose (UA) NEG Urine Ketones NEG Urine Occult Blood NEG Urine Nitrite NEG Urine Bilirubin NEG Urine Urobilinogen NEG Urine Leukocyte Esterase NEG Bedside Glucose 275 mg/dl Test 03/09/16 05:46 03/09/16 06:05 White Blood Count 12.18 K/uL Red Blood Count 4.84 M/uL Hemoglobin 14.6 g/dL Hematocrit 42.3 % Mean Corpuscular Volume 87.4 fL Mean Corpuscular Hemoglobin 30.2 pg Mean Corpuscular Hemoglobin Concent 34.5 g/dl Platelet Count 218 K/uL Mean Platelet Volume 10.1 fL Neutrophils (%) (Auto) 70.4 % Lymphocytes (%) (Auto) 18.9 % Monocytes (%) (Auto) 7.3 % Eosinophils (%) (Auto) 2.0 % Basophils (%) (Auto) 0.1 % Neutrophils # (Auto) 8.58 K/uL Lymphocytes # (Auto) 2.30 K/uL Monocytes # (Auto) 0.89 K/uL Eosinophils # (Auto) 0.24 K/uL Basophils # (Auto) 0.01 K/uL RDW Standard Deviation 54.6 fL RDW Coefficient of Variation 16.8 % Immature Granulocyte % (Auto) 1.3 % Immature Granulocyte # (Auto) 0.16 K/uL Ovalocytes 1+ Echinocytes 1+ Prothrombin Time 65.1 SECONDS Prothromb Time International Ratio 5.7 Sodium Level 144 mmol/L Potassium Level 4.0 mmol/L Chloride Level 109 mmol/L Carbon Dioxide Level 25 mmol/L Anion Gap 10.0 mmol/L Blood Urea Nitrogen 86 mg/dl Creatinine 2.70 mg/dl Est Creatinine Clear Calc Drug Dose 22.2 ml/min Estimated GFR () 24.5 Estimated GFR (Non- 21.1 BUN/Creatinine Ratio 31.7 Random Glucose 87 mg/dl Estimated Average Glucose 189 mg/dl Hemoglobin A1c 8.2 % Calcium Level 8.0 mg/dl Magnesium Level 2.2 mg/dl Total Creatine Kinase 41 U/L Creatine Kinase MB 3.7 ng/ml Creatine Kinase MB Ratio 9.0 Troponin I 0.298 ng/ml Thyroid Stimulating Hormone (TSH) 0.466 uIu/ml Bedside Glucose 87 mg/dl Diagnostic Results CERVICAL SPINE CT CT DOSE: 953.29 mGycm HISTORY: Trauma. Neuropathy. syncope left arm tingling TECHNIQUE: Multiaxial CT images of the cervical spine were performed and reformatted in the sagittal and coronal plane without the use of contrast. COMPARISON: None. FINDINGS: No evidence for compression deformity. Considerable degenerative change throughout the entire cervical region. Posterior laminectomies from C3 through C7. Considerable degenerative changes C1-C2 complex as well as all lateral facets. Mild anterior and posterior osteophytic reaction throughout. No acute bony abnormality. IMPRESSION: Findings of severe degenerative change combined with extensive posterior laminectomy defects. No acute process is appreciated. Electronically signed by: Korey Aguero M.D. CHEST ONE VIEW PORTABLE CLINICAL HISTORY: Syncope COMPARISON STUDY: Chest radiograph June 24, 2015 FINDINGS: Lung volumes are normal. There is no consolidation or evidence of pulmonary edema. Apparent mild increase in mediastinal widening and cardiomegaly is likely due to supine technique. There is decreased sensitivity for detection of pneumothorax but no pneumothorax is identified. IMPRESSION: 1. No acute findings. 2. Apparent increase in size of the cardiac silhouette and mediastinal widening is likely due to supine technique. Electronically signed by: Torsten Dorsey M.D. 03/08/2016 1:[address] HEAD WITHOUT CONTRAST (CT) CLINICAL HISTORY: Head trauma, syncope. Head pain. Cough and laceration. COMPARISON STUDY: 08/22/2012 TECHNIQUE: Axial CT of the brain is performed from the vertex to the skull base. IV contrast was not administered for this examination. CT DOSE: 729.78 mGycm FINDINGS: There is scaphocephaly. No intra or extra-axial mass lesions are visualized. There is no CT evidence of acute cortical infarction. There is no evidence of midline shift. There is no acute hemorrhage. No calvarial fractures are visualized. There are patchy white matter hypodensities likely on a small vessel basis. There is a right parietal hypodensity involving both pearce and white matter. This is consistent with an area of prior infarction. There is no evidence of pathologic ventricular dilatation. There is no evidence of acute sinusitis IMPRESSION: Interval right parietal infarct. No acute intracranial findings. Electronically signed by: Mohsen Dobbs Assessment & Plan Attending: Dr. 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 * AHA Diet * Continue Protonix QDaily * Hx Pancreatic Cancer - Continue Creon at home medication dose Renal: * BUN 86, Freight Engineer 2.7, BUN/Freight Engineer Ratio 31.7 * Voiding without dysuria, no barlow needed * Acute on Chronic CKD - gently push IV fluids, changed NS IV fluids to Half NSS , strictly monitor serial labs * Nephrology Consulted Endocrine: * DM II - A1C 8.5% - SSI & check sugars QDaily * Poor appetite * Pharmacy consulted by Hospitalist team Heme: * INR 5.7, PT 65.1, PTT 40.6 * Blood Cultures pending * Hold Coumadin ID: * Afebrile * Monitor fever curve * WBC 12 today Musculoskeletal: * Recommended PT/OT Consult IV Access: * Left [address] * Peripheral IV in place * Obtained consent for Central Line access per Dr. Graves Electrolytes: * Na 144, K 4.0, Cl 109 * Change NS fluids to 0.45 NSS DVT prophylaxis * Hold coumadin * SCDs in place Code status: Full code as per patient Level III Billing I have personally reviewed the patient's vitals, labs, imaging, diagnostics, nursing notes, consulted with other providers, I&Os, and microbiology reports, seen & evaluated the patient. Please refer to Dr. Graves's addendum for further recommendations. I have personally evaluated and examined this patient. I agree with assessment and plan of Binta Masterson PA-C. Patient is critically ill due to sick sinus syndrome and symptomatic bradycardia. His nose supratherapeutic INR, holding Coumadin not cracking at this time patient has pre-existing nonischemic cardiomyopathy was eventually able to stop transcutaneous pacing however required vasopressin. Cardiac output was waxing and waning well on the dopamine which was being infused for a peripheral IV. Done anticipates permanent pacemaker until INR corrected, placed right IJ central line to provide access for both vasoactive medications and possible transvenous pacer if required secondary to failure of vasoactive's to correct hypotension and bradycardia. I have personally spent 55 minutes of critical care time in the direct management of this patient. This is a life/limb threatening event. This includes time spent evaluating patient, direct bedside care, chart review, placing orders, interpretation of diagnostic studies, discussion with consultants, patient, and family members, as well as other required patient management activities. This time is exclusive of all separately billable procedures, and teaching time and separate from and in addition to any other critical care service time.
[2016-03-09] MEDS: CLOPIDOGREL BISULFATE 75 MG TAB PO SCH (07:44)
[2016-03-09] MEDS: ATORVASTATIN 10 MG TAB PO SCH (07:44)
[2016-03-09] MEDS: CALCITRIOL 0.25 MCG CAP PO SCH (07:44)
[2016-03-09] MEDS: TAMSULOSIN HCL 0.4 MG CAP PO SCH (07:45)
[2016-03-09] MEDS: SERTRALINE HCL 50 MG TAB PO SCH (07:48)
[2016-03-09] MEDS: PANTOprazole INJ 40 MG in SYRINGE 0 ML IV SCH (07:50)
[2016-03-09] MEDS: PANCREAZE (LIPASE 10,500U) CAP PO SCH ×3 (08:24→16:38)
--- NOTE | 2016-03-09 08:49 | Clinical Documentation Query ---
SOHAM Burgos : CLINICAL DOCUMENTATION QUERIES QUERY 1 OF 3 Patient is an 80 year old male admitted with presyncope. Differential broad but included orthostasis, volume depletion, hypoglycemia, ACS, symptomatic bradycardia, and infection. Patient has been repleted with IVF, BSG corrected, no chest pain or anginal equivalents, no ischemic EKG changes, afebrile, no leukocytosis on admission with cultures pending. Patient was noted to have recurrent hypotension in the setting of bradycardia, noted on telemetry. Subsequently, patient has been transferred to ICU. Treatment has included external cutaneous pacing and Dopamine infusion. Cardiology has been consulted for possible pacemaker. As possible and appropriate, please explicitly state your opinion at this time for the reason your patient was admitted. In your clinical opinion is this patient being managed for: (x ) Symptomatic bradycardia ( ) Other explanation of clinical findings (Please Explain) ( ) Unable to determine (Please Define) ( ) Need to Discuss ( ) Not Agree The medical record reflects the following clinical findings, treatment, and risk factors. Clinical Indicators: As above Treatment: IVF, external pacing, dopamine, ICU standard of care, cardiology consult Risk Factors: Age, afib, beta blockade QUERY 2 OF 3 Documentation includes "CKD 3". Baseline creatinine noted to be around 1.5 mg/dl, but also noting increasing the past few months to 2-2.2 mg/dl. Estimated GFR range from 2/16 to present of 26-34 ml/min. Additionally, serum creatinine on admission of 2.6 mg/dl with further increase this a.m. to 2.70 mg/dl. Patient is being treated with IVF, monitored with serial chemistries, and is to be seen in consultation by nephrology. In your clinical opinion is this patient being managed for: (x ) JOSUÉ on CKD stage 3-4 ( ) Other explanation of clinical findings (Please Explain) ( ) Unable to determine (Please Define) ( ) Need to Discuss ( ) Not Agree The medical record reflects the following clinical findings, treatment, and risk factors. Clinical Indicators: As above Treatment: Patient is being treated with IVF, monitored with serial chemistries, and is to be seen in consultation by nephrology Risk Factors: Age, afib, medications, hypotension QUERY 3 OF 3 Documentation includes "non-ischemic cardiomyopathy EF 33%." He is treated with Bumex and Coreg. Historical documentation includes a diagnosis of chronic systolic congestive heart failure. In your clinical opinion is this patient being managed for: (x ) Chronic systolic congestive heart failure ( ) Other explanation of clinical findings (Please Explain) ( ) Unable to determine (Please Define) ( ) Need to Discuss ( ) Not Agree The medical record reflects the following clinical findings, treatment, and risk factors. Clinical Indicators: As above Treatment: Currently Torsemide is on hold as arrived volume depleted. Risk Factors: Age, CAD, DM, hypertension Please clarify and document your clinical opinion in the progress notes and discharge summary. Terms such as "probable", "suspected", "likely", "questionable", "possible", or "still to be ruled out" are acceptable. IF IN AGREEMENT, YOU MUST DOCUMENT ABOVE DIAGNOSTIC STATEMENT IN DAILY PROGRESS NOTES AND DISCHARGE SUMMARY. This document is not part of the patient's record. Thank You, Richard Masterson, IVANA [phone]
[2016-03-09] MEDS ORDERED: INSULIN GLARGINE SOLOSTAR 100 UNITS/ML 3 ML PEN SC SCH (09:00)
--- NOTE | 2016-03-09 09:08 | CARDIOLOGY CONSULTATION ---
DATE OF CONSULTATION: 03/09/2016 DATE OF CONSULTATION: 03/09/2016. REFERRING PHYSICIAN: Dr. Lo. REASON FOR CONSULTATION: Bradycardia. HISTORY OF PRESENT ILLNESS: This is an 80-year-old male patient with multiple medical problems including ischemic cardiomyopathy with an estimated left ventricular ejection fraction of around 30%. He has had severe coronary artery disease and has undergone multiple coronary interventions including high risk left main stenting and ostial right coronary artery stenting in 2005. He had a repeat cardiac catheterization in 2012 that showed the stents to be patent. Between 2009 and 2012 his left ventricular ejection fraction declined from 55-33%. He had been followed by [facility] for many years; however about 4-5 months ago he was not happy with his care and transferred his specialty care to [facility] where he sees Dr. Wood for cardiology and set up inspector there. It should be noted that in the past he has declined to consider dialysis. He was offered an ICD and also declined that procedure. According to his partner, Lisa, who is with him today when he arrived at [place] they changed medications around but he really never felt any better. Over the past several weeks he has been slowly declining. He has had a loss of appetite and developed ongoing weakness. On the day of admission he was feeling weak and did not eat breakfast. He administered his usual dose of insulin and in the afternoon he got up to go the bathroom and while walking there became dizzy and fell to the floor. He did not lose consciousness and was alert immediately after the event. He was brought to the Emergency Department where he was given IV fluids and his blood pressure responded. His heart rates were in the 60s on admission and in a persistent atrial fibrillation. At times however, his heart rates dropped into the 30 and an external pacemaker was applied. He eventually was brought to the ICU where he was started on 3 mcg of dopamine, which stabilized his heart rate and he has remained stable through the rest of the night. The temporary pacemaker has been turned off. He is alert and oriented in no acute distress. He was made n.p.o. in possible preparation for procedures and he is complaining as he has not had breakfast. ALLERGIES: LISINOPRIL WHICH HE MAY HAVE DEVELOPED A RASH TO. HE ALSO HAS AN ALLERGY TO LOSARTAN DUE TO ORTHOSTATIC HYPOTENSION. HE ALSO LISTED ALLERGIES TO ZOLPIDEM AND SPIROLACTONE. PAST MEDICAL HISTORY: He has chronic stage III heart failure due to systolic dysfunction from an ischemic cardiomyopathy. His last estimated left ventricular ejection fraction was 33%. He has frequent ventricular ectopy and runs of nonsustained V-tach. He has been treated empirically with amiodarone in the past. He has chronic kidney disease and in the past has declined dialysis. He has also declined an ICD implant in the past. He is status post right parietal stroke documented by MRI and neurological findings in 2013. He has had multiple high risk stenting performed in 2005. This includes left main trunk stenting and ostial right coronary artery stenting. In 2012 he had a repeat cardiac catheterization that indicated the stents were patent. As mentioned above in 2009, his left ventricular ejection fraction was 55% and now has declined to 33%. He has chronic atrial fibrillation and a history of COPD. Finally, there is mention in the H\T\P of the patient having a Whipple's procedure for pancreatic cancer in 2005. SOCIAL HISTORY: He is a former smoker. He lives with his partner. FAMILY MEDICAL HISTORY: Noncontributory. REVIEW OF SYSTEMS: The 10-point review of systems is negative except for the history of chief complaint. PHYSICAL EXAMINATION: GENERAL: He is alert and oriented. VITAL SIGNS: Blood pressure is 123/53, pulse is irregular at 70 beats per minute. He is afebrile. HEAD, EYES, EARS, NOSE, AND THROAT: He is microcytic. Pupils are equal and reactive to light. Mucous membranes are moist. NECK: The neck veins are flat. Carotids have good upstrokes bilaterally without bruits. Thyroid is nonpalpable. RESPIRATORY: Breath sounds equal bilaterally and clear to auscultation. CARDIOVASCULAR: Heart has a regular rhythm. Normal S1, S2. No S3, S4. No cardiac rubs or murmurs. GASTROINTESTINAL: Abdomen is soft, nontender without organomegaly. EXTREMITIES: Free of edema, digit clubbing, or cyanosis. NEUROLOGIC: Grossly intact. SKIN: Warm to touch. LYMPH NODES: Negative to palpation. LABORATORY DATA: Hemoglobin is 14.6, potassium is 4.0. Creatinine is 2.6. Troponin is 0.29. IMPRESSION: 1. Ischemic cardiomyopathy with severe LV dysfunction and an estimated left ventricular ejection fraction of 30%. 2. Chronic atrial fibrillation, history of ventricular arrhythmias declining an ICD in the past. 3. Persistent atrial fibrillation with bradycardia. 4. Chronic kidney disease stage IV-V. 5. Diabetes mellitus. 6. Loss of appetite and poor oral intake over the past several weeks. 7. History of pancreatic cancer with a Whipple's procedure in 2006. RECOMMENDATIONS: I believe the patient should be evaluated for a pacemaker and ICD. I would hold his warfarin. Unfortunately, his INR is elevated today. I would continue the dopamine to maintain his heart rate, but at some point I think we may be able to discontinue this medication as we have held his Coreg. He will be seen by nephrology to provide a plan for his chronic kidney disease. Further evaluation and treatment following the above. LESLIED
[2016-03-09] MEDS: CEROVITE ADV FORMULA TAB PO SCH (11:29)
[2016-03-09] MEDS: SODIUM CHLORIDE 0.45% 1000ML 1,000 ML IV SCH (11:32)
--- NOTE | 2016-03-09 12:21 | ECHOCARDIOGRAM REPORT ---
*NOTICE TO RECEIVING LIBERTARIAN AGENCY This information is strictly Confidential and protected under [place] law. [place] law prohibits you from making any further disclosure of this information unless further disclosure is expressly permitted by the written consent of the person to whom it pertains or is authorized by law. A general authorization for the release of medical or other information is not sufficient for this purpose. Hospital accepts no responsibility if the information is made available to any other person, INCLUDING THE PATIENT. Interpretation Summary * Name: CALLY LOONEY JR Study Date: 03/09/2016 06:53 AM BP: 113/47 mmHg * Patient Location: [facility] HR: 44 * : 1935 (M/d/yyyy) Gender: Male Height: 70 in * Age: 80 yrs Ethnicity: CA Weight: 205 lb * Ordering Physician: Donnie Lo * Referring Physician: Self, Referred * Performed By: Kendra Pichardo RCS * * Reason For Study: Elevated Troponin * BSA: 2.1 m2 * The study was technically limited. * -- Conclusions -- * The study was technically limited. * The left ventricle is moderately dilated. * Left ventricular systolic function is moderate to severely reduced. * Ejection Fraction = 30-35%. * The right ventricular systolic function is normal. * There is mild mitral regurgitation. Procedure Details * A complete two-dimensional transthoracic echocardiogram was performed (2D, M-mode, Doppler and color flow Doppler). * Patient supine for imagining. Parasternal views were unobtainable due to shock pads needing to remain in position but some additional images where obtained from subcostal window to supplement for this. Left Ventricle * The left ventricle is moderately dilated. * Ejection Fraction = 30-35%. * Left ventricular systolic function is moderate to severely reduced. Right Ventricle * The right ventricle is normal size. * The right ventricular systolic function is normal. Atria * The left atrium is moderately dilated. * The right atrium is moderately dilated. * The interatrial septum is intact with no evidence for an atrial septal defect. Mitral Valve * The mitral valve anatomy is normal. * There is mild mitral regurgitation. Tricuspid Valve * The tricuspid valve is not well visualized. * Significant tricuspid regurgitation is absent. Aortic Valve * The aortic valve is not well visualized. * No hemodynamically significant valvular aortic stenosis. * Mild aortic regurgitation. Pulmonic Valve * The pulmonic valve is not well visualized. * There is no significant pulmonary regurgitation. Pericardium/Pleural * There is no pericardial effusion. MMode 2D Measurements and Calculations IVSd 10 cm IVSs 1.2 cm LVIDd 6.0 cm LVIDs 4.9 cm LVPWd 1.0 cm LVPWs 1.2 cm IVS/LVPW 0.96 FS 18.0 % EDV(Teich) 180.1 ml ESV(Teich) 114.0 ml EF(Teich) 36.7 % EDV(cubed) 216.2 ml ESV(cubed) 119.2 ml EF(cubed) 44.8 % % IVS thick 17.9 % % LVPW thick 13.5 % LV mass(C)d 252.7 grams LV mass(C)dI 119.8 grams/m\S\2 LV mass(C)s 221.8 grams LV mass(C)sI 105.2 grams/m\S\2 CO(Teich) 2.9 l/min CI(Teich) 1.4 l/min/m\S\2 SV(Teich) 66.1 ml SI(Teich) 31.4 ml/m\S\2 CO(cubed) 4.3 l/min CI(cubed) 2.0 l/min/m\S\2 SV(cubed) 97.0 ml SI(cubed) 46.0 ml/m\S\2 Ao root diam 3.5 cm Ao root area 9.7 cm\S\2 LA dimension 3.1 cm LA/Ao 0.87 LVAd ap4 35.0 cm\S\2 LVLd ap4 7.9 cm EDV(MOD-sp4) 130.0 ml LVAs ap4 27.1 cm\S\2 LVLs ap4 7.3 cm ESV(MOD-sp4) 84.0 ml EF(MOD-sp4) 35.4 % LVAd ap2 30.0 cm\S\2 LVLd ap2 7.9 cm EDV(MOD-sp2) 94.0 ml LVAs ap2 21.1 cm\S\2 LVLs ap2 7.1 cm ESV(MOD-sp2) 51.0 ml EF(MOD-sp2) 45.7 % CO(MOD-sp4) 2.0 l/min CI(MOD-sp4) 0.96 l/min/m\S\2 SV(MOD-sp4) 46.0 ml SI(MOD-sp4) 21.8 ml/m\S\2 CO(MOD-sp2) 1.9 l/min CI(MOD-sp2) 0.90 l/min/m\S\2 SV(MOD-sp2) 43.0 ml SI(MOD-sp2) 20.4 ml/m\S\2 Doppler Measurements and Calculations MV E max jony 84.1 cm/sec MV P1/2t max jony 95.1 cm/sec MV P1/2t 105.3 msec MVA(P1/2t) 2.1 cm\S\2 MV dec slope 264.3 cm/sec\S\2 MV dec time 0.28 sec Ao V2 max 130.1 cm/sec Ao max PG 6.9 mmHg Ao max PG (full) 4.7 mmHg AI max jony 408.7 cm/sec AI max PG 66.8 mmHg AI dec slope 224.5 cm/sec\S\2 AI P1/2t 533.2 msec LV V1 max PG 2.2 mmHg LV V1 max 74.2 cm/sec
[2016-03-09] MEDS: FLUTICASONE PROPIONATE NA SPR 16 GM BTL NAE SCH (12:34)
--- NOTE | 2016-03-09 13:55 | Pharmacy Progress Note ---
Glycemic Control Intl Consult Date of Service Mar 09, 2016. Scope Glycemic Pharmacist consulted by Dr Lo on 03/08/16 for glycemic control and to write orders per [facility] inpatient glycemic control protocol Objective Weight (Kilograms): 83.300 Accuchecks BSG (last 24hrs): Test 03/08/16 16:47 03/08/16 18:07 03/08/16 20:40 03/09/16 05:46 Bedside Glucose 136 mg/dl (70-99) 115 mg/dl (70-99) 275 mg/dl (70-99) Random Glucose 87 mg/dl (70-99) Test 03/09/16 06:05 03/09/16 11:01 Bedside Glucose 87 mg/dl (70-99) 85 mg/dl (70-99) Laboratory Data (last 24hrs) Test 03/09/16 05:46 Anion Gap 10.0 mmol/L BUN/Creatinine Ratio 31.7 Blood Urea Nitrogen 86 mg/dl Creatinine 2.70 mg/dl Hemoglobin A1c 8.2 % Potassium Level 4.0 mmol/L Sodium Level 144 mmol/L White Blood Count 12.18 K/uL Red Blood Count 4.84 M/uL Hemoglobin 14.6 g/dL Hematocrit 42.3 % Mean Corpuscular Volume 87.4 fL Mean Corpuscular Hemoglobin 30.2 pg Mean Corpuscular Hemoglobin Concent 34.5 g/dl Platelet Count 218 K/uL Mean Platelet Volume 10.1 fL Neutrophils (%) (Auto) 70.4 % Lymphocytes (%) (Auto) 18.9 % Monocytes (%) (Auto) 7.3 % Eosinophils (%) (Auto) 2.0 % Basophils (%) (Auto) 0.1 % Neutrophils # (Auto) 8.58 K/uL Lymphocytes # (Auto) 2.30 K/uL Monocytes # (Auto) 0.89 K/uL Eosinophils # (Auto) 0.24 K/uL Basophils # (Auto) 0.01 K/uL HbA1c Test 03/09/16 05:46 Hemoglobin A1c 8.2 %(4.5-5.6) H Recent Pertinent Medications Outpatient Anti-diabetic Regimen: * NovoLog Mix 70/30 * 28 units SQ in the AM * 12 units SQ in the evening with supper * A1c = 8.2 % 03/09/16 The patient is currently receiving: * Basal insulin: Lantus 10 units every 12 hours - currently on hold , has only received 1 dose 03/08 in the PM * Correctional Insulin: NovoLog Correction per scale AC/HS Goal Range: Low 140 mg/dL - High 180 mg/dL Correction Factor: 30 mg/dL/unit * Prandial insulin: Per carb ratio of 1 unit per 25 grams CHO consumed Risk Factors for Insulin Resistance: * Steroids: none none at this time * Infection: none at this time * Pressors: dopamine IV * IVF: 1/2NS @ 75mL/hr * Recent Surgery: n/a * Diet: T2DM/AHA, 1500mL restriction, mechanical soft * Mechanical Ventilation: n/a Assessment & Plan ASSESSMENT: * ADA & AACE recommend a goal blood sugar range 140-180 mg/dl for the majority of critically ill & non-critically ill patients. However, more stringent targets may be selected in individual cases. 03/09/16 * 80 y/o known type 2 diabetic who presents with near syncope and amanda cardia. * Hypoglycemia noted on admission * the patient has not been feeling well and has had decreased PO intake, however has continued his insulin administrations * BSGs remain below goal range despite minimal insulin administration * will continue to hold long acting Lantus at this time and only order correctional insulin * A1c- current * 8.2% may be slightly above goal for this patient, however would not aim much lower secondary to the Elements of Diabetes Care Scoring Scale and suggested glycemic targets based on this. PLAN FOR INPATIENT GLYCEMIC CONTROL: * Continue to hold outpatient regimen at this time * mixed insulins are not typically used for inpatients secondary to changing PO status/difficulty to titrate * Begin basal/bolus insulin with Lantus and NovoLog * Hold Lantus at this time secondary to BSGs below goal range * Continue NovoLog AC and HS * Correction factor: 30mg/dL/unit * Carb ratio: remove at this time * Goal range: 140-180mg/dL per ADA recommendations * A1c - current * added to discharge instructions This patient may require additional counseling upon discharge as to avoid hypoglycemia in the future when PO intake varies. * Please note that the plan above was derived based on current level of insulin resistance and hospital stress. These recommendations are appropriate for inpatient admission only. Plan of care upon discharge will need to be reassessed to avoid potential outpatient hypo/hyperglycemia. Thank you.
--- NOTE | 2016-03-09 17:17 | DIAGNOSTIC IMAGING REPORT ---
CHEST ONE VIEW PORTABLE CLINICAL HISTORY: line placement tube position COMPARISON STUDY: 03/08/2016 FINDINGS: Placement right internal jugular catheter in superior vena cava. No evidence pneumothorax. IMPRESSION: Superior vena cava. No evidence pneumothorax. Electronically signed by: Korey Aguero M.D. 03/09/2016 5:15 PM
--- NOTE | 2016-03-09 17:27 | Progress Note ---
Internal Med Progress Note Date of Service: Mar 09, 2016. Provider Documentation: SUBJECTIVE: Resting comfortably requiring dopamine drip to keep heart rate and blood pressure up denies chest pain or sob no headaches afebrile no nausea OBJECTIVE: Vital Signs-as noted below Exam: General-alert and oriented. Not in distress ENT-Hard of hearing Neck-no neck masses Lungs-cta b/l no wheezing or crackles Heart-S1 and S2 heard irregular rate and rhythm, no murmurs Abdomen-Soft bowels sounds present non tender no distension Extremities-no edema no erythema Neuro-alert and awake moves extremities Lab data as noted below. 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 FALL, PRESYNCOPE LIKELY SECONDARY TO: SYMPTOMATIC BRADYCARDIA tsh is normal hx of cardiomyopathy wth EF 30-35% requiring dopamine drip has introducer sheath incase temporary pacing required plan for pacemaker mostlikely on Saturday close monitor in ICU. NAUSEA, POOR APPETITE history of hiatal hernia per patient On Protonix Will monitor and GI consult if persistent HISTORY OF CAD mild elevation of troponin mostly from bradycardia on coumadin, plavix holding Coreg and Entresto for now NON ISCHEMIC CARDIOMYOPATHY poor appetite dehydration? on gentle fluids will monitor for volume overload holding Torsemide A FIB, ON COUMADIN INR 5.7 coumadin held will f/u inr DM 2 Holding Novolog currently on ISS for now Pharmacy consulted will monitor. HYPERTENSION hypotensive Holding Coreg, Entresto, Torsemide for now Arf on CKD 3 baseline around 1.5, but increasing to 2-2.2 the past few months cr 2.7 today on gentle fluids and diuretics on hold nephrology consulted f/u labs HISTORY OF CVA on coumadin, Plavix COPD not in exacerbation HISTORY OF PANCREATIC CANCER s/p Whipple procedure on creON DVT prophylaxis on coumadin inr 5.7 Code status Full code as per patient Disposition close monitor in icu await pacemaker/ICD Vital Signs: Date Time Temp Pulse Resp B/P Pulse Ox O2 Delivery O2 Flow Rate FiO2 03/09/16 16:14 36.6 70 12 117/60 96 Room Air 03/09/16 16:00 Room Air 03/09/16 15:59 71 18 133/45 99 Room Air 03/09/16 15:44 41 23 144/61 97 Room Air 03/09/16 14:59 41 19 147/62 94 Room Air 03/09/16 14:29 48 21 142/50 94 Room Air 03/09/16 14:20 43 25 122/48 96 Room Air 03/09/16 13:30 42 18 95 03/09/16 13:29 43 35 89/55 93 03/09/16 13:00 48 20 95 03/09/16 12:59 51 16 105/47 94 03/09/16 12:30 47 21 88/52 95 03/09/16 12:00 49 6 91 03/09/16 11:59 36.7 54 12 88/38 94 03/09/16 11:31 51 29 98/58 90 03/09/16 11:30 52 29 96 03/09/16 11:19 93 Room Air 03/09/16 11:00 52 10 93 03/09/16 10:59 44 11 96/45 93 03/09/16 10:30 44 18 96 03/09/16 10:29 50 13 108/62 97 03/09/16 10:00 51 17 94 03/09/16 09:00 48 23 96 03/09/16 08:59 48 21 113/47 91 03/09/16 08:30 54 14 111/67 96 03/09/16 08:00 Nasal Cannula 03/09/16 08:00 55 22 96 03/09/16 07:59 36.6 56 15 123/53 94 Nasal Cannula 2.0 03/09/16 07:45 94 Nasal Cannula 2.0 03/09/16 07:44 78 13 145/65 96 03/09/16 07:30 52 26 95 03/09/16 07:29 46 24 127/64 97 03/09/16 07:14 48 21 127/50 97 03/09/16 07:00 58 19 97 03/09/16 06:03 64 23 112/69 97 Nasal Cannula 2.0 03/09/16 04:21 Nasal Cannula 2.0 03/09/16 04:00 67 19 124/60 95 Nasal Cannula 2.0 03/09/16 02:42 47 23 97/60 93 03/09/16 02:17 47 23 97/51 95 03/09/16 00:17 95/57 101/49 03/09/16 00:01 95 Room Air 03/08/16 23:25 36.4 44 16 90/49 95 Room Air 52 73/41 03/08/16 20:00 95 Room Air 03/08/16 19:30 36.3 55 18 106/49 95 Room Air 03/08/16 19:19 36.3 46 18 107/57 97 Room Air 03/08/16 18:43 36.7 48 19 104/50 97 Room Air 03/08/16 17:47 52 16 90/49 94 Room Air Lab Results: Results Past 24 Hours Test 03/08/16 18:07 03/08/16 19:15 03/08/16 19:50 03/08/16 20:40 Range/Units Bedside Glucose 115 275 70-99 mg/dl Total Creatine Kinase 38 39-308 U/L Creatine Kinase MB 3.0 0.5-3.6 ng/ml Creatine Kinase MB Ratio 7.9 0-3.0 Troponin I 0.290 0-0.045 ng/ml Urine Color YELLOW Urine Appearance CLEAR CLEAR Urine pH 5.0 4.5-7.5 Urine Specific [place] 1.005 1.000-1.030 Urine Protein NEG NEG Urine Glucose (UA) NEG NEG Urine Ketones NEG NEG Urine Occult Blood NEG NEG Urine Nitrite NEG NEG Urine Bilirubin NEG NEG Urine Urobilinogen NEG NEG Urine Leukocyte Esterase NEG NEG Test 03/08/16 22:55 03/09/16 05:46 03/09/16 06:05 03/09/16 11:01 Range/Units Total Creatine Kinase 37 41 39-308 U/L Creatine Kinase MB 3.1 3.7 0.5-3.6 ng/ml Creatine Kinase MB Ratio 8.4 9.0 0-3.0 Troponin I 0.275 0.298 0-0.045 ng/ml White Blood Count 12.18 4.8-10.8 K/uL Red Blood Count 4.84 4.7-6.1 M/uL Hemoglobin 14.6 14.0-18.0 g/dL Hematocrit 42.3 42-52 % Mean Corpuscular Volume 87.4 80-100 fL Mean Corpuscular Hemoglobin 30.2 25-34 pg Mean Corpuscular Hemoglobin Concent 34.5 32-36 g/dl Platelet Count 218 130-400 K/uL Mean Platelet Volume 10.1 7.4-10.4 fL Neutrophils (%) (Auto) 70.4 % Lymphocytes (%) (Auto) 18.9 % Monocytes (%) (Auto) 7.3 % Eosinophils (%) (Auto) 2.0 % Basophils (%) (Auto) 0.1 % Neutrophils # (Auto) 8.58 1.4-6.5 K/uL Lymphocytes # (Auto) 2.30 1.2-3.4 K/uL Monocytes # (Auto) 0.89 0.11-0.59 K/uL Eosinophils # (Auto) 0.24 0-0.5 K/uL Basophils # (Auto) 0.01 0-0.2 K/uL RDW Standard Deviation 54.6 36.4-46.3 fL RDW Coefficient of Variation 16.8 11.5-14.5 % Immature Granulocyte % (Auto) 1.3 % Immature Granulocyte # (Auto) 0.16 0.00-0.02 K/uL Ovalocytes 1+ Echinocytes 1+ Prothrombin Time 65.1 9.0-12.0 SECONDS Prothromb Time International Ratio 5.7 0.9-1.1 Sodium Level 144 136-145 mmol/L Potassium Level 4.0 3.5-5.1 mmol/L Chloride Level 109 98-107 mmol/L Carbon Dioxide Level 25 21-32 mmol/L Anion Gap 10.0 3-11 mmol/L Blood Urea Nitrogen 86 7-18 mg/dl Creatinine 2.70 0.60-1.40 mg/dl Est Creatinine Clear Calc Drug Dose 22.2 ml/min Estimated GFR () 24.5 Estimated GFR (Non- 21.1 BUN/Creatinine Ratio 31.7 10-20 Random Glucose 87 70-99 mg/dl Estimated Average Glucose 189 mg/dl Hemoglobin A1c 8.2 4.5-5.6 % Calcium Level 8.0 8.5-10.1 mg/dl Magnesium Level 2.2 1.8-2.4 mg/dl Thyroid Stimulating Hormone (TSH) 0.466 0.300-4.500 uIu/ml Bedside Glucose 87 85 70-99 mg/dl Test 03/09/16 16:14 Range/Units Bedside Glucose 215 70-99 mg/dl Microbiology Results 03/08/16 Blood Culture, Received Pending 03/08/16 Blood Culture, Received Pending
--- NOTE | 2016-03-09 19:57 | Procedure Note ---
Procedure Note Procedure Date Mar 09, 2016. Central Line Procedure time out: side/site verified, patient ID confirmed, sterile procedure used Consent obtained: written Performed by: attending Indications: central drug admin. (dopamine), other (transvenous pacing) Contraindications: coagulopathy Prep: chlorhexadine prep Anesthesia: local injection, lidocaine 1% without epi Volume anesthetic (ml's): 2 Central line lumen: single Central line location: internal jugular (R) Additional details: ultrasound guidance, Selinger technique used, line sutured , good blood return CXR: appropriate position, no pneumothorax Patient tolerated procedure: well Post-procedure vital signs: reviewed and stable
--- NOTE | 2016-03-09 22:45 | NEPHROLOGY CONSULTATION ---
DATE OF CONSULTATION: 03/09/2016 REASON FOR CONSULTATION: JOSUÉ on CKD. HISTORY OF PRESENT ILLNESS: This is a patient with CKD stage III, who used to follow with me, but then moved to [place] and transitioned care to Dr. Barrientos. Patient does have underlying atrial fibrillation, on Coumadin; also has nonischemic cardiomyopathy with a depressed ejection fraction. He has had a poor appetite for several weeks and became lightheaded and had a fall. The patient was significantly bradycardic in the Emergency Room and was transcutaneously paced overnight and then started on dopamine and pulse is now in the 60s. The patient is feeling better with a better appetite and is much more awake and talkative. PAST MEDICAL HISTORY: Atrial fibrillation, BPH, heart disease, CKD stage III/IV with baseline creatinine in the high 2s, COPD, history of stroke, type 2 diabetes, hyperlipidemia, hypertension, pancreatic cancer, status post a Whipple in 2005. PAST SURGICAL HISTORY: Whipple, a stent placement to the heart, hip replacement, cholecystectomy, hernia repair, C-spine surgery. FAMILY HISTORY: Significant for hypertension and kidney disease. SOCIAL HISTORY: Former smoker. No alcohol, no drugs. Lives with family. REVIEW OF SYSTEMS: No fevers or chills. No shortness of breath. No chest pain. Positive fatigue, positive lightheadedness. When he fell, he did hit his head, but otherwise, with no other complaints at this time. Positive generalized weakness and dizziness. All other review of systems, otherwise, negative. CURRENT MEDICATIONS: Half normal saline at 75 mL an hour, Protonix, Lipitor 10, calcitriol 0.25 mcg daily, Plavix 75 mg daily, Zoloft 25 mg daily, Flomax 0.4 mg daily, pancreatic enzymes 2 capsules p.o. t.i.d. with meals, dopamine drip, sliding scale insulin. PHYSICAL EXAMINATION: VITAL SIGNS: Temperature 36.6, pulse 70, respiratory rate is 12, blood pressure 117/60, satting 96% on room air. Ins and outs 1844 in, 1000 out, voided 1000 mL today. GENERAL: Awake, alert, oriented x3. EYES: No scleral icterus. HEAD: Does have a lesion on his head/a laceration. NECK: Supple. PULMONARY: Clear to auscultation. CARDIAC: Bradycardic and irregular. ABDOMEN: Bowel sounds positive, soft, nontender. EXTREMITIES: No significant clubbing, cyanosis or edema. NEUROLOGIC: Nonfocal. DERMATOLOGIC: No rash or ulcers noted, other than the lesion on his head. LABORATORY STUDIES: A white count is 12,000, H\T\H 14 and 42, platelet count is 218. Sodium is 144, potassium is 4, chloride is 109, bicarbonate is 25, BUN is 86, creatinine is 2.7, glucose 87. Hemoglobin A1c 8.2, calcium is 8, mag is 2.2. Total CK 41. Troponin 0.298. TSH 0.466. INR is up to 5.7. UA was bland. Blood cultures are pending. Chest x-ray shows no acute findings, mediastinal widening, attributed to the techniques used to obtain the chest x-ray. IMPRESSION AND PLAN: Acute kidney injury with a creatinine of 2.7 in the setting of hypotension and bradycardia; likely had decreased perfusion to the kidneys and creatinine may worsen before it starts to improve, depending on the severity of the insult to the kidneys; may have been severe enough to cause an acute tubular necrosis-like episode. No indication for dialysis at this time. We will continue to follow electrolytes. Patient clinically appears to be improving with increased perfusion to the kidneys and good urine output with stable electrolytes. I greatly appreciate cardiology as well as pulmonary critical care for their help. Hopefully, creatinine eventually improves back down to baseline. CK is normal; so, no element of rhabdomyolysis and UA is bland. So, at this point, I feel the acute kidney injury is secondary to intravascular volume depletion/decreased perfusion to the kidneys, which may be severe enough to cause acute tubular necrosis, plus or minus a prerenal picture. Hopefully, creatinine starts to improve with the continued improvement in hemodynamics. I appreciate the consultation. CM
[2016-03-10] VITALS (37 sets, daily range): BP systolic 74–139; BP diastolic 40–85; PULSE 33–84; TEMP 36.3–36.6; O2SAT 90–97
[2016-03-10] MEDS: SODIUM CHLORIDE 0.45% 1000ML 1,000 ML IV SCH (01:04)
[2016-03-10] MEDS: ACETAMINOPHEN 325 MG TAB PO PRN (03:22)
[2016-03-10 05:46] LABS: BASO % 0.1 %; BASO ABS # 0.01 K/uL (0-0.2); COMPLETE YES; EOS % 2.6 %; HEMATOCRIT 39.8 % (42-52); IG% 0.6 %; LYMPH % 21.8 %; MEAN CELL VOLUME 87.7 fL (80-100); MEAN CORPUSCULAR HEMOGLOBIN 30.4 pg (25-34); MEAN CORPUSCULAR HGB CONC 34.7 g/dl (32-36); MEAN PLATELET VOLUME 9.4 fL (7.4-10.4); MONO % 8.2 %; NEUT % 66.7 %; PLATELET COUNT 189 K/uL (130-400); RED BLOOD COUNT 4.54 M/uL (4.7-6.1); WHITE BLOOD COUNT 11.03 K/uL (4.8-10.8)
[2016-03-10 06:01] LABS: PROTHROMBIN TIME (PATIENT) 43.9 SECONDS (9.0-12.0)
[2016-03-10 06:02] LABS: INR 3.9 (0.9-1.1)
[2016-03-10 06:13] LABS: BUN/CREATININE RATIO 30.7 (10-20); CREATININE 2.3 mg/dl (0.60-1.40); MAGNESIUM 2.3 mg/dl (1.8-2.4); POTASSIUM 3.9 mmol/L (3.5-5.1)
[2016-03-10 06:20] LABS: CALCIUM 8.1 mg/dl (8.5-10.1)
[2016-03-10] MEDS: CLOPIDOGREL BISULFATE 75 MG TAB PO SCH (07:44)
[2016-03-10] MEDS: PANCREAZE (LIPASE 10,500U) CAP PO SCH ×3 (07:44→17:08)
[2016-03-10] MEDS: FLUTICASONE PROPIONATE NA SPR 16 GM BTL NAE SCH (07:44)
[2016-03-10] MEDS: CEROVITE ADV FORMULA TAB PO SCH (07:44)
[2016-03-10] MEDS: TAMSULOSIN HCL 0.4 MG CAP PO SCH (07:45)
[2016-03-10] MEDS: CALCITRIOL 0.25 MCG CAP PO SCH (07:45)
[2016-03-10] MEDS: SERTRALINE HCL 50 MG TAB PO SCH (07:45)
[2016-03-10] MEDS: ATORVASTATIN 10 MG TAB PO SCH (07:46)
[2016-03-10] MEDS: PANTOprazole INJ 40 MG in SYRINGE 0 ML IV SCH (07:49)
[2016-03-10] MEDS: INSULIN ASPART 100 UNITS/ML 3 ML PEN SC SCH ×4 (07:51→21:08)
--- NOTE | 2016-03-10 08:13 | Cardiology Consultation ---
Cardiology Consultation Date of Consultation: Mar 09, 2016. Requesting Physician: Dr. Ellis Reason for Consultation: Ischemic cardiomyopathy, atrial fibrillation was slow heart rate Pt evaluation today including: conversation w/ patient, conversation w/ family , physical exam, lab review, review of studies, conversation w/ presales consultant, review of inpatient medication list History of Present Illness This is a very pleasant 80-year-old gentleman who has a history of ischemic cardiomyopathy including multiple coronary interventions. His left ventricular ejection fraction had declined to 33% in 2012 and has remained in that range. He was initially followed by [facility], subsequently transferred his care to [place], and has now returned to [facility]. He has a history of nonsustained ventricular tachycardia which I believe has been asymptomatic in the past. He has been offered an ICD in the past which she has declined, and still is not sure he wants that therapy. His current admission however is due to progressive weakness, loss of appetite and some shortness of breath. He then had a dizzy spell where he fell to the floor, evidently did not lose consciousness but came close. In the emergency room he was hypotensive and his blood pressure responded to IV fluids, he was also in atrial fibrillation (which is permanent) and he was bradycardic on minimal AV miky blocking medications (carvedilol 6.25 mg twice a day). His heart rate has increased with discontinuation of beta blockade and addition of dobutamine, he was temporary pacemaker for some time but that has been turned off. Here he has had a rising creatinine due to acute kidney injury, probably due to hypotension and bradycardia and decreased perfusion. He has also had low- grade enzyme release which is probably demand ischemia not infarction. Past Medical/Surgical History Medical Problems: (1) Afib Status: Chronic (2) BPH (benign prostatic hyperplasia) Status: Chronic (3) CAD (coronary artery disease) Status: Chronic (4) CHF (congestive heart failure) Status: Chronic (5) CKD (chronic kidney disease), stage III Status: Chronic (6) COPD (chronic obstructive pulmonary disease) Status: Chronic (7) Current use of long term care social worker anticoagulation Status: Chronic (8) CVA (cerebral vascular accident) Status: Chronic (9) Depression Status: Chronic (10) DM2 (diabetes mellitus, type 2) Status: Chronic (11) GERD (gastroesophageal reflux disease) Status: Chronic (12) HLD (hyperlipidemia) Status: Chronic (13) HTN (hypertension) Status: Chronic (14) Pancreatic cancer Permanent Comment: Whipple 02/04 s/p neoadjuvant chemoradiotherapy 2005 Jason Urena MD Status: Chronic (15) Pancreatic insufficiency Status: Chronic Surgical Problems: (1) H/O cervical spine surgery Status: Chronic (2) H/O hernia repair Status: Chronic (3) H/O percutaneous transluminal coronary angioplasty Status: Resolved (4) History of cardiac cath Permanent Comment: with stent placement Status: Chronic (5) History of hip replacement Status: Chronic (6) S/P cholecystectomy Status: Chronic (7) S/P hip replacement Status: Chronic (8) Stented coronary artery Status: Chronic Family History Diabetes mellitus FH: cancer FH: gallbladder disease Heart disease Hypertension Kidney disease Lung disease Social History Smoking Status: Former Smoker History of Alcohol Use: No Review of Systems Constitutional: No fever, No weakness, No weight loss Respiratory: + dyspnea on exertion, No cough, No shortness of breath, No wheezing Cardiac: + problem reported (presyncope prior to admission), + see HPI, No PND , No chest pain, No edema, No orthopnea, No palpitations Abdomen: No GI bleeding, No diarrhea, No nausea, No pain, No vomiting Male : No nocturia more than once/night, No sexual dysfunction, No slowing stream, No urinary frequency Neurologic: No balance problems, No numbness/tingling, No paralysis, No weakness Heme: No abnormal bleeding/bruising, No clotting problems Endo: No fatigue Skin: No problem reported All Other Systems: Reviewed and Negative Allergies Coded Allergies: Lisinopril (Verified Allergy, Unknown, RASH, 06/24/15) Spironolactone (Verified Allergy, Unknown, unkn, 06/24/15) Zolpidem (Verified Adverse Reaction, Unknown, HALLUCINATIONS, 06/24/15) Medications Current Inpatient Medications Medications (Trade) Dose Ordered Sig/Quoc Route Start Time Stop Time Status Last Admin Dose Admin Acetaminophen (Tylenol Tab) 650 mg Q4H PRN PO 03/08/16 17:00 04/07/16 16:59 03/10/16 03:22 650 MG Ondansetron HCl (Zofran Inj) 4 mg Q6H PRN IV 03/08/16 17:00 04/07/16 16:59 Nitroglycerin (Nitrostat Tab) 0.4 mg UD PRN SL 03/08/16 17:00 04/07/16 16:59 Insulin Aspart (novoLOG ASPART) SLIDING SCALE G... ACHS SC 03/08/16 21:00 04/07/16 20:59 03/09/16 20:50 2 UNITS Glucose (Glucose 40% Gel) 15-30 GRAMS 15 GRAMS... UD PRN PO 03/08/16 17:15 04/07/16 17:14 Glucose (Glucose Chew Tab) 4-8 Tablets 4 Tabl... UD PRN PO 03/08/16 17:15 04/07/16 17:14 Dextrose (Dextrose 50% 50ML Syringe) 25-50ML OF 50% DW IV FOR... UD PRN IV 03/08/16 17:15 04/07/16 17:14 Glucagon (Glucagon Inj) 1 mg UD PRN SQ 03/08/16 17:15 04/07/16 17:14 Miscellaneous Information (Consult Glycemic Management Pharmacy) 1 ea UD PRN N/A 03/08/16 19:45 04/07/16 19:44 Atorvastatin Calcium (Lipitor Tab) 10 mg DAILY PO 03/09/16 09:00 04/08/16 08:59 03/09/16 07:44 10 MG Calcitriol (Rocaltrol Cap) 0.25 mcg DAILY PO 03/09/16 09:00 04/08/16 08:59 03/09/16 07:44 0.25 MCG Clopidogrel Bisulfate (plAVix TAB) 75 mg DAILY PO 03/09/16 09:00 04/08/16 08:59 03/09/16 07:44 75 MG Fluticasone Propionate (Flonase Nasal [place]) 2 sprays DAILY RICHA 03/09/16 09:00 04/08/16 08:59 03/09/16 12:34 2 SPRAYS Levalbuterol (Xopenex Hfa Inhaler) 2 puffs Q4H PRN INH 03/08/16 17:30 04/07/16 17:29 Multivitamins/ Minerals (Multivitamin W/ Minerals Tab) 1 tab DAILY PO 03/09/16 09:00 04/08/16 08:59 03/09/16 11:29 1 TAB Sertraline HCl (Zoloft Tab) 25 mg DAILY PO 03/09/16 09:00 04/08/16 08:59 03/09/16 07:48 25 MG Tamsulosin HCl (Flomax Cap) 0.4 mg DAILY PO 03/09/16 09:00 04/08/16 08:59 03/09/16 07:45 0.4 MG Miscellaneous Information (Order Awaiting Action) 1 ea QS N/A 03/08/16 19:45 04/07/16 19:44 Amylase/Lipase/ Protease (Pancreaze (Lipase 10,500U) Cap) 2 cap TIDM PO 03/09/16 07:15 04/08/16 07:29 03/09/16 16:38 2 CAP Amylase/Lipase/ Protease (Pancreaze (Lipase 10,500U) Cap) 1-2 CAPS WITH SNACKS UD PRN PO 03/08/16 19:45 04/07/16 19:44 Insulin Glargine 10 unit 10 unit BID SC 03/08/16 22:45 04/07/16 22:44 Future Hold 03/08/16 23:10 10 UNIT Dopamine HCl/ Dextrose 250 ml @ 0 mls/hr Q0M PRN IV 03/09/16 02:30 04/08/16 02:29 03/10/16 05:12 3 MLS/HR Pantoprazole Sodium 40 mg/ Syringe 10 ml @ 5 mls/min Q24H IV 03/10/16 09:00 04/09/16 08:59 Sodium Chloride (1/2 Nss 1000ml) 1,000 ml @ 75 mls/hr [id number] IV 03/09/16 11:00 04/08/16 10:59 03/10/16 01:04 75 MLS/HR Physical Exam Vital Signs Past 12 Hours Date Time Temp Pulse Resp B/P Pulse Ox O2 Delivery O2 Flow Rate FiO2 03/10/16 05:59 36.6 61 19 130/72 94 Room Air 03/10/16 05:30 57 16 130/85 95 Room Air 03/10/16 04:59 42 10 120/68 90 Room Air 03/10/16 04:29 67 15 128/45 93 Room Air 03/10/16 04:08 96 Room Air 2.0 03/10/16 04:00 51 19 128/65 97 Room Air 03/10/16 03:33 50 13 127/45 96 Room Air 03/10/16 03:29 70 32 74/55 Room Air 03/10/16 02:59 33 15 126/59 96 Room Air 03/10/16 02:29 54 24 122/56 94 Room Air 03/10/16 00:30 54 16 109/70 93 Room Air 03/10/16 00:00 96 Room Air 2.0 03/09/16 23:59 36.8 49 21 112/50 92 Room Air 03/09/16 23:29 39 15 114/52 93 Room Air 03/09/16 22:59 47 19 119/62 93 Room Air 03/09/16 22:30 51 16 131/50 94 Room Air 03/09/16 21:59 43 23 93/64 91 Room Air 03/09/16 21:29 45 13 111/64 95 Room Air 03/09/16 20:30 67 18 138/51 93 Room Air 03/09/16 20:22 96 Room Air 2.0 03/09/16 20:00 53 26 126/65 94 Room Air Constitutional: General Apperance: heathly-appearing Level of Distress: mild distress Psychiatric: Mental Status: active & alert Head: normocephalic Eyes: EOM: EOMI ENMT: normal ENT inspection, hearing grossly normal Neck: supple, no masses Lungs: Respiratory effort: no dyspnea, good air movement Auscultation: breath sounds normal, no wheezing Cardiovascular: Heart Auscultation: no murmurs, no rubs, no gallops, bradycardia, irregular rate rhythm Peripheral Pulses: Bruits: none appreciated Abdomen: Bowel Sounds: normal Inspection & Palpation: soft, no tenderness, guarding & rebound, no masses Musculoskeletal: normal strength (5/5 throughout) Extremities: no edema Neurologic: Cranial Nerves: grossly intact Sensation: grossly intact Data Laboratory Results: Last 24 Hours Test 03/09/16 11:01 03/09/16 16:14 03/09/16 20:46 03/10/16 05:31 Bedside Glucose 85 mg/dl 215 mg/dl 224 mg/dl White Blood Count 11.03 K/uL Red Blood Count 4.54 M/uL Hemoglobin 13.8 g/dL Hematocrit 39.8 % Mean Corpuscular Volume 87.7 fL Mean Corpuscular Hemoglobin 30.4 pg Mean Corpuscular Hemoglobin Concent 34.7 g/dl Platelet Count 189 K/uL Mean Platelet Volume 9.4 fL Neutrophils (%) (Auto) 66.7 % Lymphocytes (%) (Auto) 21.8 % Monocytes (%) (Auto) 8.2 % Eosinophils (%) (Auto) 2.6 % Basophils (%) (Auto) 0.1 % Neutrophils # (Auto) 7.36 K/uL Lymphocytes # (Auto) 2.40 K/uL Monocytes # (Auto) 0.90 K/uL Eosinophils # (Auto) 0.29 K/uL Basophils # (Auto) 0.01 K/uL RDW Standard Deviation 53.6 fL RDW Coefficient of Variation 16.6 % Immature Granulocyte % (Auto) 0.6 % Immature Granulocyte # (Auto) 0.07 K/uL Prothrombin Time 43.9 SECONDS Prothromb Time International Ratio 3.9 Sodium Level 143 mmol/L Potassium Level 3.9 mmol/L Chloride Level 112 mmol/L Carbon Dioxide Level 21 mmol/L Anion Gap 10.0 mmol/L Blood Urea Nitrogen 71 mg/dl Creatinine 2.30 mg/dl Est Creatinine Clear Calc Drug Dose 26.0 ml/min Estimated GFR () 29.8 Estimated GFR (Non- 25.7 BUN/Creatinine Ratio 30.7 Random Glucose 90 mg/dl Calcium Level 8.1 mg/dl Magnesium Level 2.3 mg/dl Imaging: An echocardiogram done here on 03/09/2016 shows an ejection fraction between 30 and 35%. EKG: Atrial fibrillation with a very slow ventricular heart rate, on admission his heart rate was about 60 on electrocardiography however prehospitalization was in the mid 40s on average which included a lot of ventricular ectopy that is effective heart rate was slower than that. Telemetry reviewed: Atrial fibrillation with very frequent ventricular ectopy including PVCs and nonsustained ventricular tachycardia. Significant bradycardia , occasional pacing on admission with an external pacemaker, increasing heart rate subsequently but still quite slow. Assessment & Plan #1. Ischemic cardiomyopathy: He has a long-standing ischemic cardiomyopathy, he has been on Vadim there is no past and had a reaction to them check believe was allergic not renal insufficiency but that is also a problem, he has been on low- dose beta-blockade but they cannot be increased due to bradycardia, now to the point where he required temporary pacing. We therefore cannot treat his cardiomyopathy with appropriate medical therapy due to his bradycardia. He has had an ejection fraction stable in the low 30% range for several years, however symptoms have now been worsening. He has been offered an ICD in the past, I discussed that at length with him and his and he is not sure he wants that therapy. His is going to leave the decision up to him. He is going to think about it, clearly he is a candidate for ICD implantation for primary prevention of sudden cardiac . #2. Atrial fibrillation with slow ventricular response: He has atrial fibrillation now off of beta-blockade continues to have very slow heart rate although does not require temporary pacing. He is however on dobutamine. He will require pacing. He is agreeable to pace therapy. Although his conducted QRS is not wide enough to warrant biventricular pacing I think that if we implant a pacemaker he will be predominantly pacer dependent and should have a biventricular pacer implanted. He is in permanent atrial fibrillation so that would require a left ventricular and right ventricular lead. If he does not agreed to ICD therapy we would use a right ventricular pacing lead, if he does agree to ice the therapy we would use a defibrillator right ventricular lead. His INR is elevated at this point and will have to wait until that decreases and he has to think about what type of therapy he wants over the long run. #3. Ventricular ectopy: He has very frequent ventricular ectopy including PVCs and runs of ventricular tachycardia. This may well interfere with our ability to biventricular pace. He will likely need treatment of this, higher doses of beta-blockade might work or he may need amiodarone or another antiarrhythmic. Certainly with amiodarone and his heart rate will be even slower and so we can' t initiate that at this time. #4. Renal insufficiency: This is likely in part due to hypoperfusion due to a very irregular heart rate decreasing cardiac output as well as his cardiomyopathy doing the same and more recently hypotension. His renal function may improve significantly with biventricular pacing, it often does. Perhaps if it increases sufficiently we can consider a sore ARB therapy although his allergy needs to be worked through. #5. Congestive heart failure: He is clearly class III congestive heart failure based on the NYHA classification. As such she is a candidate for biventricular pacing if he requires significant pacing and I suspect he will be pacing all of the time once he is on appropriate medications, if not before. With his high INR I am inclined to let it drift down, he has not been on warfarin for several days and therefore this should correct on its own. In the meantime I will continue to talk to him about what type of therapy he desires. Thank you for allowing me to participate in his care.
--- NOTE | 2016-03-10 08:19 | Critical Care Progress Note ---
Critical Care Progress Note Date of Service Mar 10, 2016. Attending Dr. Graves Subjective Patient states he is not doing well today secondary to his breakfast tray not having any salt nor sugar and his food not tasting well due to this. Otherwise no chest pain no shortness of breath no abdominal pain. Objective MAGISTRATE ASSISTANT/Neuro: AAOx 3, Pupils: Equal round reactive, Focal Signs: None EEG/CT/MRI: CT had previously reviewed Restraints: None Respiratory: Scattered rhonchi bilaterally Chest x-ray: 03/09/2016 were reviewed HOB up 30 degrees: Yes Cardiovascular: S1-S2 occasional extrasystoles no murmurs rubs gallops CV drips: Dopamine 3 g Rhythm: Sinus EK03/08/2016 reviewed ECHO: 03/09/2016 echo reviewed EF 35% Fluids/Renal: Discontinued, patient taking fluids by mouth Net Urine: Net +1 L for stay Ruff: None GI/Nutrition: AHA ADA diet abdomen soft nondistended nontender Prophylaxis: Protonix On Creon 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 Endocrine: Last 24 hour glucose: Ranging from 85-224, recently restarted food Insulin protocol: Yes; Drip: No Hematology: DVT prophylaxis: Per therapeutic INR at 3.9, SCDs in place Infectious Disease/Immunology: Tmax: 36 6 CVL (date): Placed 03/09/2016, needed for vasoactive medication administration, and possible temporary transvenous pacer placement, poor vascular access Antimicrobials: None Cultures: Blood: No growth at 24 hours Assessment & Plan Cardiology: * Hx Atrial Fibrillation - Coumadin Held * Hx of Non-ischemic Cardiomyopathy * Continue Dopamine 2.5 mg * Cardiology Consulted * Hold Coreg, Entresto, Torsemide for now for Hypertension management per Cardiology * Anticipate pacer placement once coagulation profile within normal limits G.I. * AHA Diet * Continue Protonix QDaily * Hx Pancreatic Cancer - Continue Creon at home medication dose Renal: * BUN/creatinine improving slightly, reviewed renal consult * Stopped IV fluids as patient taking adequate by mouth Endocrine: * DM II - A1C 8.5% - SSI & check sugars per protocol * Heme: * Hold Coumadin * SCDs for prophylaxis ID: * Afebrile * Monitor fever curve * WBC 12 today IV Access: * Right introducer right internal jugular vein Patient critically ill due to coagulopathy, supratherapeutic INR, sick sinus syndrome, symptomatic bradycardia requiring vasoactive medications to maintain rate cardiac output. I have personally spent 40 minutes of critical care time in the direct management of this patient. This is a life/limb threatening event. This includes time spent evaluating patient, direct bedside care, chart review, placing orders, interpretation of diagnostic studies, discussion with consultants, patient, and family members, as well as other required patient management activities. This time is exclusive of all separately billable procedures, and teaching time and separate from and in addition to any other critical care service time. Data Medications: Current Inpatient Medications Medications (Trade) Dose Ordered Sig/Quoc Route Start Time Stop Time Status Last Admin Dose Admin Acetaminophen (Tylenol Tab) 650 mg Q4H PRN PO 03/08/16 17:00 04/07/16 16:59 03/10/16 03:22 650 MG Ondansetron HCl (Zofran Inj) 4 mg Q6H PRN IV 03/08/16 17:00 04/07/16 16:59 Nitroglycerin (Nitrostat Tab) 0.4 mg UD PRN SL 03/08/16 17:00 04/07/16 16:59 Insulin Aspart (novoLOG ASPART) SLIDING SCALE G... ACHS SC 03/08/16 21:00 04/07/16 20:59 03/09/16 20:50 2 UNITS Glucose (Glucose 40% Gel) 15-30 GRAMS 15 GRAMS... UD PRN PO 03/08/16 17:15 04/07/16 17:14 Glucose (Glucose Chew Tab) 4-8 Tablets 4 Tabl... UD PRN PO 03/08/16 17:15 04/07/16 17:14 Dextrose (Dextrose 50% 50ML Syringe) 25-50ML OF 50% DW IV FOR... UD PRN IV 03/08/16 17:15 04/07/16 17:14 Glucagon (Glucagon Inj) 1 mg UD PRN SQ 03/08/16 17:15 04/07/16 17:14 Miscellaneous Information (Consult Glycemic Management Pharmacy) 1 ea UD PRN N/A 03/08/16 19:45 04/07/16 19:44 Atorvastatin Calcium (Lipitor Tab) 10 mg DAILY PO 03/09/16 09:00 04/08/16 08:59 03/10/16 07:46 10 MG Calcitriol (Rocaltrol Cap) 0.25 mcg DAILY PO 03/09/16 09:00 04/08/16 08:59 03/10/16 07:45 0.25 MCG Clopidogrel Bisulfate (plAVix TAB) 75 mg DAILY PO 03/09/16 09:00 04/08/16 08:59 03/10/16 07:44 75 MG Fluticasone Propionate (Flonase Nasal [place]) 2 sprays DAILY RICHA 03/09/16 09:00 04/08/16 08:59 03/10/16 07:44 2 SPRAYS Levalbuterol (Xopenex Hfa Inhaler) 2 puffs Q4H PRN INH 03/08/16 17:30 04/07/16 17:29 Multivitamins/ Minerals (Multivitamin W/ Minerals Tab) 1 tab DAILY PO 03/09/16 09:00 04/08/16 08:59 03/10/16 07:44 1 TAB Sertraline HCl (Zoloft Tab) 25 mg DAILY PO 03/09/16 09:00 04/08/16 08:59 03/10/16 07:45 25 MG Tamsulosin HCl (Flomax Cap) 0.4 mg DAILY PO 03/09/16 09:00 04/08/16 08:59 03/10/16 07:45 0.4 MG Miscellaneous Information (Order Awaiting Action) 1 ea QS N/A 03/08/16 19:45 04/07/16 19:44 Amylase/Lipase/ Protease (Pancreaze (Lipase 10,500U) Cap) 2 cap TIDM PO 03/09/16 07:15 04/08/16 07:29 03/10/16 07:44 2 CAP Amylase/Lipase/ Protease (Pancreaze (Lipase 10,500U) Cap) 1-2 CAPS WITH SNACKS UD PRN PO 03/08/16 19:45 04/07/16 19:44 Insulin Glargine 10 unit 10 unit BID SC 03/08/16 22:45 04/07/16 22:44 Future Hold 03/08/16 23:10 10 UNIT Dopamine HCl/ Dextrose 250 ml @ 0 mls/hr Q0M PRN IV 03/09/16 02:30 04/08/16 02:29 03/10/16 05:12 3 MLS/HR Pantoprazole Sodium 40 mg/ Syringe 10 ml @ 5 mls/min Q24H IV 03/10/16 09:00 04/09/16 08:59 03/10/16 07:49 5 MLS/MIN Sodium Chloride (1/2 Nss 1000ml) 1,000 ml @ 75 mls/hr [id number] IV 03/09/16 11:00 04/08/16 10:59 03/10/16 01:04 75 MLS/HR I & O: 24-Hour Column 03/10/16 07:59 Intake Total 3077 ml Output Total 1975 ml Balance 1102 ml Vital Signs: Date Time Temp Pulse Resp B/P Pulse Ox O2 Delivery O2 Flow Rate FiO2 03/10/16 05:59 36.6 61 19 130/72 94 Room Air 03/10/16 05:30 57 16 130/85 95 Room Air 03/10/16 04:59 42 10 120/68 90 Room Air 03/10/16 04:29 67 15 128/45 93 Room Air 03/10/16 04:08 96 Room Air 2.0 03/10/16 04:00 51 19 128/65 97 Room Air 03/10/16 03:33 50 13 127/45 96 Room Air 03/10/16 03:29 70 32 74/55 Room Air 03/10/16 02:59 33 15 126/59 96 Room Air 03/10/16 02:29 54 24 122/56 94 Room Air 03/10/16 00:30 54 16 109/70 93 Room Air 03/10/16 00:00 96 Room Air 2.0 03/09/16 23:59 36.8 49 21 112/50 92 Room Air 03/09/16 23:29 39 15 114/52 93 Room Air 03/09/16 22:59 47 19 119/62 93 Room Air 03/09/16 22:30 51 16 131/50 94 Room Air 03/09/16 21:59 43 23 93/64 91 Room Air 03/09/16 21:29 45 13 111/64 95 Room Air 03/09/16 20:30 67 18 138/51 93 Room Air 03/09/16 20:22 96 Room Air 2.0 03/09/16 20:00 53 26 126/65 94 Room Air 03/09/16 19:29 40 23 147/60 95 Room Air 03/09/16 18:00 76 20 135/44 96 Room Air 03/09/16 16:14 36.6 70 12 117/60 96 Room Air 03/09/16 16:00 Room Air 03/09/16 15:59 71 18 133/45 99 Room Air 03/09/16 15:44 41 23 144/61 97 Room Air 03/09/16 14:59 41 19 147/62 94 Room Air 03/09/16 14:29 48 21 142/50 94 Room Air 03/09/16 14:20 43 25 122/48 96 Room Air 03/09/16 13:30 42 18 95 03/09/16 13:29 43 35 89/55 93 03/09/16 13:00 48 20 95 03/09/16 12:59 51 16 105/47 94 03/09/16 12:30 47 21 88/52 95 03/09/16 12:00 49 6 91 03/09/16 11:59 36.7 54 12 88/38 94 03/09/16 11:31 51 29 98/58 90 03/09/16 11:30 52 29 96 03/09/16 11:19 93 Room Air 03/09/16 11:00 52 10 93 03/09/16 10:59 44 11 96/45 93 03/09/16 10:30 44 18 96 03/09/16 10:29 50 13 108/62 97 03/09/16 10:00 51 17 94 03/09/16 09:00 48 23 96 03/09/16 08:59 48 21 113/47 91 03/09/16 08:30 54 14 111/67 96 Laboratory Results: Last 24 Hours Test 03/09/16 11:01 03/09/16 16:14 03/09/16 20:46 03/10/16 05:31 Bedside Glucose 85 mg/dl 215 mg/dl 224 mg/dl White Blood Count 11.03 K/uL Red Blood Count 4.54 M/uL Hemoglobin 13.8 g/dL Hematocrit 39.8 % Mean Corpuscular Volume 87.7 fL Mean Corpuscular Hemoglobin 30.4 pg Mean Corpuscular Hemoglobin Concent 34.7 g/dl Platelet Count 189 K/uL Mean Platelet Volume 9.4 fL Neutrophils (%) (Auto) 66.7 % Lymphocytes (%) (Auto) 21.8 % Monocytes (%) (Auto) 8.2 % Eosinophils (%) (Auto) 2.6 % Basophils (%) (Auto) 0.1 % Neutrophils # (Auto) 7.36 K/uL Lymphocytes # (Auto) 2.40 K/uL Monocytes # (Auto) 0.90 K/uL Eosinophils # (Auto) 0.29 K/uL Basophils # (Auto) 0.01 K/uL RDW Standard Deviation 53.6 fL RDW Coefficient of Variation 16.6 % Immature Granulocyte % (Auto) 0.6 % Immature Granulocyte # (Auto) 0.07 K/uL Prothrombin Time 43.9 SECONDS Prothromb Time International Ratio 3.9 Sodium Level 143 mmol/L Potassium Level 3.9 mmol/L Chloride Level 112 mmol/L Carbon Dioxide Level 21 mmol/L Anion Gap 10.0 mmol/L Blood Urea Nitrogen 71 mg/dl Creatinine 2.30 mg/dl Est Creatinine Clear Calc Drug Dose 26.0 ml/min Estimated GFR () 29.8 Estimated GFR (Non- 25.7 BUN/Creatinine Ratio 30.7 Random Glucose 90 mg/dl Calcium Level 8.1 mg/dl Magnesium Level 2.3 mg/dl
--- NOTE | 2016-03-10 10:31 | Pharmacy Progress Note ---
Glycemic Control: Progress Nt Date of Service Mar 10, 2016. Scope Glycemic Pharmacist consulted by Dr Lo on 03/08/16 for glycemic control and to write orders per [facility] inpatient glycemic control protocol. Objective Accuchecks BSG (last 24hrs): Test 03/09/16 11:01 03/09/16 16:14 03/09/16 20:46 03/10/16 05:31 Bedside Glucose 85 mg/dl (70-99) 215 mg/dl (70-99) 224 mg/dl (70-99) Random Glucose 90 mg/dl (70-99) Laboratory Data (last 24hrs) Test 03/10/16 05:31 Anion Gap 10.0 mmol/L BUN/Creatinine Ratio 30.7 Blood Urea Nitrogen 71 mg/dl Creatinine 2.30 mg/dl Potassium Level 3.9 mmol/L Sodium Level 143 mmol/L White Blood Count 11.03 K/uL Red Blood Count 4.54 M/uL Hemoglobin 13.8 g/dL Hematocrit 39.8 % Mean Corpuscular Volume 87.7 fL Mean Corpuscular Hemoglobin 30.4 pg Mean Corpuscular Hemoglobin Concent 34.7 g/dl Platelet Count 189 K/uL Mean Platelet Volume 9.4 fL Neutrophils (%) (Auto) 66.7 % Lymphocytes (%) (Auto) 21.8 % Monocytes (%) (Auto) 8.2 % Eosinophils (%) (Auto) 2.6 % Basophils (%) (Auto) 0.1 % Neutrophils # (Auto) 7.36 K/uL Lymphocytes # (Auto) 2.40 K/uL Monocytes # (Auto) 0.90 K/uL Eosinophils # (Auto) 0.29 K/uL Basophils # (Auto) 0.01 K/uL HbA1c: Test 03/09/16 05:46 Hemoglobin A1c 8.2 % (4.5-5.6) H Recent Pertinent Medications Outpatient Anti-diabetic Regimen: * NovoLog Mix 70/30 * 28 units SQ in the AM * 12 units SQ in the evening with supper The patient is currently receiving: * Basal insulin: Lantus 10 units every 12 hours - currently on hold , has only received 1 dose 12/8 in the PM * Correctional Insulin: NovoLog Correction per scale AC/HS Goal Range: Low 140 mg/dL - High 180 mg/dL Correction Factor: 30 mg/dL/unit * Prandial insulin: Not ordered Risk Factors for Insulin Resistance: * Pressors: dopamine IV * Diet: T2DM/AHA, 1500mL restriction, mechanical soft - resumed yesterday Assessment & Plan ASSESSMENT: * ADA & AACE recommend a goal blood sugar range 140-180 mg/dl for the majority of critically ill & non-critically ill patients. However, more stringent targets may be selected in individual cases. 03/09/16 * 80 y/o known type 2 diabetic who presents with near syncope and amanda cardia. * Hypoglycemia noted on admission * the patient has not been feeling well and has had decreased PO intake, however has continued his insulin administrations * BSGs remain below goal range despite minimal insulin administration * will continue to hold long acting Lantus at this time and only order correctional insulin * A1c- current * 8.2% may be slightly above goal for this patient, however would not aim much lower secondary to the Elements of Diabetes Care Scoring Scale and suggested glycemic targets based on this. 03/10/16 * Mr. Redd received 4 units of insulin yesterday with BSGs ranging from 85- 224 mg/dL in the past 24 hrs * His BSGs became elevated later yesterday, most likely due to po intake w/o prandial coverage * His fasting is acceptable this AM w/o basal insulin on board - will continue to hold basal at this time PLAN FOR INPATIENT GLYCEMIC CONTROL: * Continue to hold Lantus for now - will consider resuming a low dose if BSGs become significantly elevated with carb coverage on board * Continue correction factor of 30 mg/dl/unit * ADD carb ratio of 1 unit per 20 grams CHO consumed * Continue goal range of Low 140 mg/dL - High 180 mg/dL for critically ill patient in the ICU * Please note that the plan above was derived based on current level of insulin resistance and hospital stress. These recommendations are appropriate for inpatient admission only. Plan of care upon discharge will need to be reassessed to avoid potential outpatient hypo/hyperglycemia. Thank you.
--- NOTE | 2016-03-10 11:50 | Cardiology Follow-Up ---
Subjective Date of Service: Mar 10, 2016. Pt evaluation today including: conversation w/ patient, physical exam, lab review, review of studies, review of inpatient medication list History of Present Illness This is a very pleasant 80-year-old gentleman who has a history of ischemic cardiomyopathy including multiple coronary interventions. His left ventricular ejection fraction had declined to 33% in 2012 and has remained in that range. He was initially followed by [facility], subsequently transferred his care to [facility], and has now returned to [facility]. He has a history of nonsustained ventricular tachycardia which I believe has been asymptomatic in the past. He has been offered an ICD in the past which she has declined, and still is not sure he wants that therapy. His current admission however is due to progressive weakness, loss of appetite and some shortness of breath. He then had a dizzy spell where he fell to the floor, evidently did not lose consciousness but came close. In the emergency room he was hypotensive and his blood pressure responded to IV fluids, he was also in atrial fibrillation (which is permanent) and he was bradycardic on minimal AV miky blocking medications (carvedilol 6.25 mg twice a day). His heart rate has increased with discontinuation of beta blockade and addition of dobutamine, he was temporary pacemaker for some time but that has been turned off. Here he has had a rising creatinine due to acute kidney injury, probably due to hypotension and bradycardia and decreased perfusion. He has also had low- grade enzyme release which is probably demand ischemia not infarction. Yesterday I discussed options of biventricular pacing to improve cardiac output and renal perfusion as well as to try to help his cardiomyopathy due to improvement in regularity, I also discussed ICD implantation. At that time he was not sure whether he wanted an ICD. Since yesterday he feels well, he has decided to go ahead with the ICD, and he feels better in general. Social History Smoking Status: Former Smoker History of Alcohol Use: No Review of Systems Respiratory: + dyspnea on exertion, No cough, No shortness of breath, No wheezing Cardiac: + problem reported (presyncope prior to admission), + see HPI, No PND , No chest pain, No edema, No orthopnea, No palpitations Medications Cardiovascular: Item Value Date Time Atorvastatin 10 mg 03/09/16 0900 Calcium DAILY/PO 03/10/16 0746 (Lipitor Tab) Clopidogrel 75 mg 03/09/16 0900 Bisulfate DAILY/PO 03/10/16 0744 (plAVix TAB) Dopamine HCl/ 250 ml @ 0 mls/hr 03/09/16 0230 Dextrose .Q0M PRN/IV 03/10/16 0512 Objective Vital Signs Past 12 Hours Date Time Temp Pulse Resp B/P Pulse Ox O2 Delivery O2 Flow Rate FiO2 03/10/16 07:45 95 Room Air 03/10/16 05:59 36.6 61 19 130/72 94 Room Air 03/10/16 05:30 57 16 130/85 95 Room Air 03/10/16 04:59 42 10 120/68 90 Room Air 03/10/16 04:29 67 15 128/45 93 Room Air 03/10/16 04:08 96 Room Air 2.0 03/10/16 04:00 51 19 128/65 97 Room Air 03/10/16 03:33 50 13 127/45 96 Room Air 03/10/16 03:29 70 32 74/55 Room Air 03/10/16 02:59 33 15 126/59 96 Room Air 03/10/16 02:29 54 24 122/56 94 Room Air 03/10/16 00:30 54 16 109/70 93 Room Air 03/10/16 00:00 96 Room Air 2.0 03/09/16 23:59 36.8 49 21 112/50 92 Room Air Last Recorded Weight-Kilograms: 83.300 Intake & Output 8-Hour Column 03/09/16 03/10/16 03/10/16 16:00 00:00 08:00 Intake Total 1231 ml 941 ml 905 ml Output Total 650 ml 625 ml 700 ml Balance 581 ml 316 ml 205 ml 24-Hour Column 03/10/16 08:00 Intake Total 3077 ml Output Total 1975 ml Balance 1102 ml Physical Exam Constitutional: General Apperance: heathly-appearing Level of Distress: mild distress Lungs: Respiratory effort: no dyspnea, good air movement Auscultation: breath sounds normal, no wheezing Cardiovascular: Heart Auscultation: no murmurs, no rubs, no gallops, bradycardia, irregular rate rhythm Peripheral Pulses: Bruits: none appreciated Extremities: no edema Data Laboratory Results: Last 24 Hours Test 03/09/16 16:14 03/09/16 20:46 03/10/16 05:31 Bedside Glucose 215 mg/dl 224 mg/dl White Blood Count 11.03 K/uL Red Blood Count 4.54 M/uL Hemoglobin 13.8 g/dL Hematocrit 39.8 % Mean Corpuscular Volume 87.7 fL Mean Corpuscular Hemoglobin 30.4 pg Mean Corpuscular Hemoglobin Concent 34.7 g/dl Platelet Count 189 K/uL Mean Platelet Volume 9.4 fL Neutrophils (%) (Auto) 66.7 % Lymphocytes (%) (Auto) 21.8 % Monocytes (%) (Auto) 8.2 % Eosinophils (%) (Auto) 2.6 % Basophils (%) (Auto) 0.1 % Neutrophils # (Auto) 7.36 K/uL Lymphocytes # (Auto) 2.40 K/uL Monocytes # (Auto) 0.90 K/uL Eosinophils # (Auto) 0.29 K/uL Basophils # (Auto) 0.01 K/uL RDW Standard Deviation 53.6 fL RDW Coefficient of Variation 16.6 % Immature Granulocyte % (Auto) 0.6 % Immature Granulocyte # (Auto) 0.07 K/uL Prothrombin Time 43.9 SECONDS Prothromb Time International Ratio 3.9 Sodium Level 143 mmol/L Potassium Level 3.9 mmol/L Chloride Level 112 mmol/L Carbon Dioxide Level 21 mmol/L Anion Gap 10.0 mmol/L Blood Urea Nitrogen 71 mg/dl Creatinine 2.30 mg/dl Est Creatinine Clear Calc Drug Dose 26.0 ml/min Estimated GFR () 29.8 Estimated GFR (Non- 25.7 BUN/Creatinine Ratio 30.7 Random Glucose 90 mg/dl Calcium Level 8.1 mg/dl Magnesium Level 2.3 mg/dl Telemetry reviewed: Atrial fibrillation, heart rate often around 60 bpm. Frequent ventricular ectopy including a run of nonsustained ventricular tachycardia this morning. Assessment and Plan #1. Ischemic cardiomyopathy: He has a long-standing ischemic cardiomyopathy, he has been on BRANDON inhibition in the past and had a reaction to him which I believe was allergic, not renal insufficiency but that is also a problem, he has been on low-dose beta-blockade but that cannot be increased due to bradycardia, now to the point where he required temporary pacing. We therefore cannot treat his cardiomyopathy with appropriate medical therapy due to his bradycardia. He has had an ejection fraction stable in the low 30% range for several years, however symptoms have now been worsening. He has been offered an ICD in the past, I discussed that at length with him and his yesterday and he was not sure he wanted that therapy, however he has reconsidered and is willing to have an ICD placement. Clearly he is a candidate for ICD implantation for primary prevention of sudden cardiac . #2. Atrial fibrillation with slow ventricular response: He has atrial fibrillation now off of beta-blockade and continues to have a slow heart rate although does not require temporary pacing. He is however on dobutamine. He will require pacing. Although his conducted QRS is not wide enough to warrant biventricular pacing I think that if we implant a pacemaker he will be predominantly pacer dependent and should have a biventricular pacer implanted. He is in permanent atrial fibrillation so that would require a left ventricular and right ventricular ICD lead. His heart rate has improved now off of medications and with improvement in his general status, with increased ectopy I agree with reduction or discontinuation of dobutamine. #3. Ventricular ectopy: He has very frequent ventricular ectopy including PVCs and runs of ventricular tachycardia. This may well interfere with our ability to biventricularly pace. He will likely need treatment of ventricular ectopy, higher doses of beta-blockade might work or he may need amiodarone or another antiarrhythmic. Certainly with amiodarone and his heart rate will be even slower and so we can't initiate that at this time. With a long run of nonsustained ventricular tachycardia I agree with reduction of dobutamine. If we have to we can consider temporary pacemaker implantation by very reluctant to do that with his high INR. #4. Renal insufficiency: This is likely in part due to hypoperfusion due to a very irregular heart rate decreasing cardiac output as well as his cardiomyopathy doing the same and more recently hypotension. His renal function may improve significantly with biventricular pacing, it often does. Perhaps if it increases sufficiently we can consider a sore ARB therapy although his allergy needs to be worked through. His kidney function is better today. #5. Congestive heart failure: He is clearly class III congestive heart failure based on the NYHA classification. As such he is a candidate for biventricular pacing if he requires significant pacing and I suspect he will be pacing all of the time once he is on appropriate medications, if not before. I will plan on biventricular pacemaker (as part of an ICD) therapy on Saturday with titration of beta blockade subsequently. With his high INR I am inclined to let it drift down, he has not been on warfarin for several days and therefore this should correct on its own. Today his INR has dropped significantly although it is still elevated. If it does not drop significantly tomorrow we will give him a small dose of vitamin K so that his INR will be closer to normal on Saturday. Thank you for allowing me to participate in his care.
--- NOTE | 2016-03-10 12:38 | CARDIOLOGY PROGRESS NOTE ---
DATE: 03/10/2016 SUBJECTIVE: The patient is seen and examined at the bedside. Denies chest discomfort or unusual shortness of breath. A 20 beats edilberto of nonsustained ventricular tachycardia recorded this morning at approximately 10:00 a.m. No associated symptoms. Otherwise, telemetry demonstrates atrial fibrillation with frequent ventricular ectopy. The patient denies shortness of breath or palpitations. No lightheadedness or dizziness. He has been evaluated by electrophysiology with tentative plan for ICD implantation on Saturday. The is present at bedside. She offers no complaints. REVIEW OF SYSTEMS: Pertinent positives noted above, a 4-system review including cardiovascular, pulmonary, neurologic, and endocrinologic systems otherwise unremarkable. LABORATORY DATA: White blood cell count 11.03, hemoglobin is 13.8, platelet count is 189. Sodium 143, potassium 3.9, chloride 102, CO2 is 21, BUN 71, creatinine 2.30. INR is 3.9. PHYSICAL EXAMINATION: VITAL SIGNS: Temperature is 36.6 degrees centigrade, pulse is 65 beats per minute and irregular, respiratory rate 24 breaths per minute, blood pressure 107/74, SAO2 93% on room air. GENERAL: NAD, awake, alert and oriented x3. HEENT: Mucous membranes moist. No scleral icterus. Conjunctivae pink. NECK: Supple. No JVD or HJR. No carotid bruit. HEART: Irregular with a normal S1 and S2, soft 1/6 mid systolic murmur heard best at the apex. LUNGS: Clear without rales, rhonchi or wheeze. ABDOMEN: Soft, nontender. No rebound or guarding. EXTREMITIES: Warm and dry without clubbing, cyanosis or edema. NEUROLOGIC: Demonstrates no focal motor deficit. FINAL IMPRESSION: 1. An 80-year-old male with known severe underlying ischemic cardiomyopathy, presents with symptomatic bradycardia, heart rate currently supported with dopamine infusion, however, 20 beats edilberto of nonsustained ventricular tachycardia recorded his a.m. without associated symptoms. 2. Chronic atrial fibrillation with supratherapeutic INR. 3. Chronic kidney disease stage IV-V. 4. Nonsustained ventricular tachycardia. PLAN AND RECOMMENDATIONS: I had a long discussion with the patient and his regarding the indications for ICD. They are agreeable to implantation of BIV ICD on Saturday with Dr. Carrington. Coumadin is on hold. INR is trending down slowly. We will repeat his INR in the a.m. and consider treatment with vitamin K. pending review of that result. Dopamine infusion will be reduced to 1.5 mcg per kilogram per minute. We will continue to follow telemetry closely. AV miky blocking agents will remain on hold.
--- NOTE | 2016-03-10 17:35 | Progress Note ---
Internal Med Progress Note Date of Service: Mar 10, 2016. Provider Documentation: SUBJECTIVE: slept ok denies any chest pain or sob no headaches afebrile had breakfast waiting for procedure on Saturday OBJECTIVE: Vital Signs-as noted below Exam: General-alert and oriented. Not in distress ENT-Hard of hearing Neck-no neck masses Lungs-cta b/l no wheezing or crackles Heart-S1 and S2 heard irregular rate and rhythm, no murmurs Abdomen-Soft bowels sounds present non tender no distension Extremities-no edema no erythema Neuro-alert and awake moves extremities Lab data as noted below. 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 FALL, PRESYNCOPE LIKELY SECONDARY TO: SYMPTOMATIC BRADYCARDIA tsh is normal hx of cardiomyopathy wth EF 30-35% still requiring dopamine drip has introducer sheath incase temporary pacing required plan for ICD on Saturday close monitor in ICU. NAUSEA, POOR APPETITE history of hiatal hernia per patient On Protonix Will monitor and GI consult if persistent No complaints HISTORY OF CAD mild elevation of troponin mostly from bradycardia on , plavix holding Coreg and Entresto for now NON ISCHEMIC CARDIOMYOPATHY poor appetite dehydration? on gentle fluids will monitor for volume overload holding Torsemide stopped fluids today A FIB, ON COUMADIN INR 5.7 to 3.9 today Coumadin held will f/u inr DM 2 Holding Novolog currently on ISS for now Pharmacy consulted 215/224/90/231 will monitor. HYPERTENSION hypotensive Holding Coreg, Entresto, Torsemide for now Arf on CKD 3 baseline around 1.5, but increasing to 2-2.2 the past few months cr 2.7 yesterday cr .3 today stopped fluids today. diuretics on hold nephrology consulted f/u labs HISTORY OF CVA on coumadin, Plavix Coumadin on hold COPD not in exacerbation HISTORY OF PANCREATIC CANCER s/p Whipple procedure on creON DVT prophylaxis inr 3.9 Code status Full code as per patient Disposition close monitor in icu await pacemaker/ICD Vital Signs: Date Time Temp Pulse Resp B/P Pulse Ox O2 Delivery O2 Flow Rate FiO2 03/10/16 14:00 68 20 104/40 95 Room Air 03/10/16 11:31 36.6 46 24 107/74 93 Room Air 03/10/16 11:30 47 23 95 03/10/16 11:30 95 Room Air 03/10/16 11:00 59 17 95 03/10/16 10:59 53 25 126/65 93 03/10/16 10:30 49 17 105/58 95 03/10/16 10:05 61 20 131/63 96 03/10/16 10:00 58 20 130/56 95 03/10/16 09:30 54 14 94 03/10/16 09:29 58 13 126/62 91 03/10/16 09:00 57 15 94 03/10/16 08:59 42 14 119/53 95 03/10/16 08:30 60 16 93 03/10/16 08:29 71 13 104/44 03/10/16 08:00 54 14 93 03/10/16 07:59 36.3 47 123/81 92 03/10/16 07:58 55 14 113/54 93 03/10/16 07:45 95 Room Air 03/10/16 07:30 84 15 93 03/10/16 07:00 49 14 96 03/10/16 05:59 36.6 61 19 130/72 94 Room Air 03/10/16 05:30 57 16 130/85 95 Room Air 03/10/16 04:59 42 10 120/68 90 Room Air 03/10/16 04:29 67 15 128/45 93 Room Air 03/10/16 04:08 96 Room Air 2.0 03/10/16 04:00 51 19 128/65 97 Room Air 03/10/16 03:33 50 13 127/45 96 Room Air 03/10/16 03:29 70 32 74/55 Room Air 03/10/16 02:59 33 15 126/59 96 Room Air 03/10/16 02:29 54 24 122/56 94 Room Air 03/10/16 00:30 54 16 109/70 93 Room Air 03/10/16 00:00 96 Room Air 2.0 03/09/16 23:59 36.8 49 21 112/50 92 Room Air 03/09/16 23:29 39 15 114/52 93 Room Air 03/09/16 22:59 47 19 119/62 93 Room Air 03/09/16 22:30 51 16 131/50 94 Room Air 03/09/16 21:59 43 23 93/64 91 Room Air 03/09/16 21:29 45 13 111/64 95 Room Air 03/09/16 20:30 67 18 138/51 93 Room Air 03/09/16 20:22 96 Room Air 2.0 03/09/16 20:00 53 26 126/65 94 Room Air 03/09/16 19:29 40 23 147/60 95 Room Air 03/09/16 18:00 76 20 135/44 96 Room Air Lab Results: Results Past 24 Hours Test 03/09/16 20:46 03/10/16 05:31 03/10/16 16:36 Range/Units Bedside Glucose 224 231 70-99 mg/dl White Blood Count 11.03 4.8-10.8 K/uL Red Blood Count 4.54 4.7-6.1 M/uL Hemoglobin 13.8 14.0-18.0 g/dL Hematocrit 39.8 42-52 % Mean Corpuscular Volume 87.7 80-100 fL Mean Corpuscular Hemoglobin 30.4 25-34 pg Mean Corpuscular Hemoglobin Concent 34.7 32-36 g/dl Platelet Count 189 130-400 K/uL Mean Platelet Volume 9.4 7.4-10.4 fL Neutrophils (%) (Auto) 66.7 % Lymphocytes (%) (Auto) 21.8 % Monocytes (%) (Auto) 8.2 % Eosinophils (%) (Auto) 2.6 % Basophils (%) (Auto) 0.1 % Neutrophils # (Auto) 7.36 1.4-6.5 K/uL Lymphocytes # (Auto) 2.40 1.2-3.4 K/uL Monocytes # (Auto) 0.90 0.11-0.59 K/uL Eosinophils # (Auto) 0.29 0-0.5 K/uL Basophils # (Auto) 0.01 0-0.2 K/uL RDW Standard Deviation 53.6 36.4-46.3 fL RDW Coefficient of Variation 16.6 11.5-14.5 % Immature Granulocyte % (Auto) 0.6 % Immature Granulocyte # (Auto) 0.07 0.00-0.02 K/uL Prothrombin Time 43.9 9.0-12.0 SECONDS Prothromb Time International Ratio 3.9 0.9-1.1 Sodium Level 143 136-145 mmol/L Potassium Level 3.9 3.5-5.1 mmol/L Chloride Level 112 98-107 mmol/L Carbon Dioxide Level 21 21-32 mmol/L Anion Gap 10.0 3-11 mmol/L Blood Urea Nitrogen 71 7-18 mg/dl Creatinine 2.30 0.60-1.40 mg/dl Est Creatinine Clear Calc Drug Dose 26.0 ml/min Estimated GFR () 29.8 Estimated GFR (Non- 25.7 BUN/Creatinine Ratio 30.7 10-20 Random Glucose 90 70-99 mg/dl Calcium Level 8.1 8.5-10.1 mg/dl Magnesium Level 2.3 1.8-2.4 mg/dl
[2016-03-10] MEDS ORDERED: NURSING VERBAL MED ORDER ONE (17:45)
[2016-03-10] MEDS: POLYETHYLENE (MIRALAX) 17 GM PACK PO SCH (18:16)
[2016-03-10] MEDS: DOCUSATE SODIUM 100 MG CAP PO SCH (18:16)
[2016-03-10] MEDS ORDERED: POLYETHYLENE (MIRALAX) 17 GM PACK PO ONE (21:30)
[2016-03-11] VITALS (41 sets, daily range): BP systolic 91–144; BP diastolic 42–82; PULSE 34–88; TEMP 36.4–36.8; O2SAT 90–98
[2016-03-11 05:40] LABS: COMPLETE YES; HEMATOCRIT 38.9 % (42-52); IG% 0.6 %; LYMPH % 16.7 %; LYMPH ABS # 1.74 K/uL (1.2-3.4); MEAN CELL VOLUME 88.6 fL (80-100); MEAN CORPUSCULAR HEMOGLOBIN 30.1 pg (25-34); MEAN CORPUSCULAR HGB CONC 33.9 g/dl (32-36); MEAN PLATELET VOLUME 9.6 fL (7.4-10.4); MONO % 6.7 %; PLATELET COUNT 175 K/uL (130-400); RED BLOOD COUNT 4.39 M/uL (4.7-6.1); WHITE BLOOD COUNT 10.45 K/uL (4.8-10.8)
[2016-03-11 05:48] LABS: INR 2.7 (0.9-1.1); PROTHROMBIN TIME (PATIENT) 30.5 SECONDS (9.0-12.0)
[2016-03-11 06:10] LABS: MAGNESIUM 2.4 mg/dl (1.8-2.4); POTASSIUM 4.6 mmol/L (3.5-5.1)
[2016-03-11 06:27] LABS: CALCIUM 8.3 mg/dl (8.5-10.1)
[2016-03-11] MEDS ORDERED: PHYTONADIONE 5 MG TAB PO STA (07:35)
--- NOTE | 2016-03-11 07:54 | Cardiology Follow-Up ---
Subjective Date of Service: Mar 11, 2016. Pt evaluation today including: conversation w/ patient, physical exam, lab review, review of studies, review of inpatient medication list History of Present Illness This is a very pleasant 80-year-old gentleman who has a history of ischemic cardiomyopathy including multiple coronary interventions. His left ventricular ejection fraction had declined to 33% in 2012 and has remained in that range. He was initially followed by [facility], subsequently transferred his care to [facility], and has now returned to [facility]. He has a history of nonsustained ventricular tachycardia which I believe has been asymptomatic in the past. He has been offered an ICD in the past which she has declined, and still is not sure he wants that therapy. His current admission however is due to progressive weakness, loss of appetite and some shortness of breath. He then had a dizzy spell where he fell to the floor, evidently did not lose consciousness but came close. In the emergency room he was hypotensive and his blood pressure responded to IV fluids, he was also in atrial fibrillation (which is permanent) and he was bradycardic on minimal AV miky blocking medications (carvedilol 6.25 mg twice a day). His heart rate has increased with discontinuation of beta blockade and addition of dobutamine, he was temporary pacemaker for some time but that has been turned off. Here he has had a rising creatinine due to acute kidney injury, probably due to hypotension and bradycardia and decreased perfusion. He has also had low- grade enzyme release which is probably demand ischemia not infarction. I discussed options of biventricular pacing to improve cardiac output and renal perfusion as well as to try to help his cardiomyopathy due to improvement in regularity, Since yesterday he feels well, he has decided to go ahead with the ICD, and he feels better from the cardiovascular standpoint, he is complaining about his bowels. Social History Smoking Status: Former Smoker History of Alcohol Use: No Review of Systems Respiratory: + dyspnea on exertion, No cough, No shortness of breath, No wheezing Cardiac: + problem reported (presyncope prior to admission), + see HPI, No PND , No chest pain, No edema, No orthopnea, No palpitations Objective Vital Signs Past 12 Hours Date Time Temp Pulse Resp B/P Pulse Ox O2 Delivery O2 Flow Rate FiO2 03/11/16 05:59 36.8 46 14 136/72 96 Room Air 03/11/16 05:00 69 21 130/82 94 Room Air 03/11/16 04:22 96 Room Air 2.0 03/11/16 03:59 71 23 141/59 Room Air 03/11/16 02:00 47 17 129/52 95 Room Air 03/11/16 01:00 53 18 134/57 93 Room Air 03/11/16 00:21 96 Room Air 2.0 03/11/16 00:00 36.8 61 14 125/48 92 Room Air 03/10/16 22:00 48 26 119/47 93 Room Air 03/10/16 21:00 41 16 139/59 96 Room Air 03/10/16 20:07 96 Room Air 2.0 03/10/16 19:59 36.6 48 22 106/45 93 Room Air Last Recorded Weight-Kilograms: 83.000 Intake & Output 8-Hour Column 03/10/16 03/11/16 03/11/16 16:00 00:00 08:00 Intake Total 1067 ml 407 ml 141 ml Output Total 550 ml 50 ml 375 ml Balance 517 ml 357 ml -234 ml 24-Hour Column 03/11/16 08:00 Intake Total 1615 ml Output Total 975 ml Balance 640 ml Physical Exam Constitutional: General Apperance: heathly-appearing Level of Distress: mild distress Lungs: Respiratory effort: no dyspnea, good air movement Auscultation: breath sounds normal, no wheezing Cardiovascular: Heart Auscultation: no murmurs, no rubs, no gallops, bradycardia, irregular rate rhythm Peripheral Pulses: Bruits: none appreciated Extremities: no edema Data Laboratory Results: Last 24 Hours Test 03/10/16 16:36 03/10/16 21:01 03/11/16 05:14 03/11/16 05:15 Bedside Glucose 231 mg/dl 202 mg/dl White Blood Count 10.45 K/uL Red Blood Count 4.39 M/uL Hemoglobin 13.2 g/dL Hematocrit 38.9 % Mean Corpuscular Volume 88.6 fL Mean Corpuscular Hemoglobin 30.1 pg Mean Corpuscular Hemoglobin Concent 33.9 g/dl Platelet Count 175 K/uL Mean Platelet Volume 9.6 fL Neutrophils (%) (Auto) 74.0 % Lymphocytes (%) (Auto) 16.7 % Monocytes (%) (Auto) 6.7 % Eosinophils (%) (Auto) 2.0 % Basophils (%) (Auto) 0.0 % Neutrophils # (Auto) 7.74 K/uL Lymphocytes # (Auto) 1.74 K/uL Monocytes # (Auto) 0.70 K/uL Eosinophils # (Auto) 0.21 K/uL Basophils # (Auto) 0.00 K/uL RDW Standard Deviation 54.5 fL RDW Coefficient of Variation 16.7 % Immature Granulocyte % (Auto) 0.6 % Immature Granulocyte # (Auto) 0.06 K/uL Prothrombin Time 30.5 SECONDS Prothromb Time International Ratio 2.7 Sodium Level 141 mmol/L Potassium Level 4.6 mmol/L Chloride Level 111 mmol/L Carbon Dioxide Level 22 mmol/L Anion Gap 8.0 mmol/L Blood Urea Nitrogen 62 mg/dl Creatinine 2.00 mg/dl Est Creatinine Clear Calc Drug Dose 29.9 ml/min Estimated GFR () 35.2 Estimated GFR (Non- 30.4 BUN/Creatinine Ratio 31.0 Random Glucose 199 mg/dl Calcium Level 8.3 mg/dl Magnesium Level 2.4 mg/dl Telemetry reviewed: Lupe berger with an improvement in heart rate, very frequent PVCs, nonsustained ventricular tachycardia Assessment and Plan #1. Ischemic cardiomyopathy: He has a long-standing ischemic cardiomyopathy, he has been on BRANDON inhibition in the past and had a reaction to him which I believe was allergic, not renal insufficiency but that is also a problem, he has been on low-dose beta-blockade but that cannot be increased due to bradycardia, now to the point where he required temporary pacing. We therefore cannot treat his cardiomyopathy with appropriate medical therapy due to his bradycardia. He has had an ejection fraction stable in the low 30% range for several years, however symptoms have now been worsening. He has been offered an ICD in the past, I discussed that at length with him and his yesterday and he was not sure he wanted that therapy, however he has reconsidered and is willing to have an ICD placement. Clearly he is a candidate for ICD implantation for primary prevention of sudden cardiac . #2. Atrial fibrillation with slow ventricular response: He has atrial fibrillation now off of beta-blockade and now does not require temporary pacing. He is however on dobutamine. He will require pacing. Although his conducted QRS is not wide enough to warrant biventricular pacing I think that if we implant a pacemaker he will be predominantly pacer dependent and should have a biventricular pacer implanted. He is in permanent atrial fibrillation so that would require a left ventricular and right ventricular ICD lead. His heart rate has improved now off of medications and with improvement in his general status, with increased ectopy I agree with reduction or discontinuation of dobutamine. #3. Ventricular ectopy: He has very frequent ventricular ectopy including PVCs and runs of ventricular tachycardia. This may well interfere with our ability to biventricularly pace. He will likely need treatment of ventricular ectopy, higher doses of beta-blockade might work or he may need amiodarone or another antiarrhythmic. Certainly with amiodarone his heart rate will be even slower and so we can't initiate that at this time. #4. Renal insufficiency: This is likely in part due to hypoperfusion due to a very irregular heart rate decreasing cardiac output as well as his cardiomyopathy doing the same and more recently hypotension. His renal function has been improving and may improve significantly with biventricular pacing, it often does. Perhaps if it increases sufficiently we can consider a trial of ARB therapy although his allergy needs to be worked through. His kidney function is better today. #5. Congestive heart failure: He is clearly class III congestive heart failure based on the NYHA classification. As such he is a candidate for biventricular pacing if he requires significant pacing and I suspect he will be pacing all of the time once he is on appropriate medications, if not before. I will plan on biventricular pacemaker (as part of an ICD) therapy on Saturday with titration of beta blockade subsequently. With his high INR I am going to give a low dose of vitamin K. Today his INR has dropped significantly although it is still elevated and may not get low enough for surgery tomorrow morning. If it does not drop significantly throughout today we will give him an additional dose of vitamin K this evening so that his INR will be closer to normal on Saturday. Thank you for allowing me to participate in his care.
[2016-03-11] MEDS: PANCREAZE (LIPASE 10,500U) CAP PO SCH ×3 (07:57→16:27)
[2016-03-11] MEDS ORDERED: INSULIN GLARGINE SOLOSTAR 100 UNITS/ML 3 ML PEN SC ONE (08:00)
[2016-03-11] MEDS: PANTOprazole INJ 40 MG in SYRINGE 0 ML IV SCH (08:01)
[2016-03-11] MEDS: FLUTICASONE PROPIONATE NA SPR 16 GM BTL NAE SCH (08:02)
[2016-03-11] MEDS: TAMSULOSIN HCL 0.4 MG CAP PO SCH (08:02)
[2016-03-11] MEDS: DOCUSATE SODIUM 100 MG CAP PO SCH ×2 (08:02→21:00)
[2016-03-11] MEDS: CALCITRIOL 0.25 MCG CAP PO SCH (08:04)
[2016-03-11] MEDS: CLOPIDOGREL BISULFATE 75 MG TAB PO SCH (08:04)
[2016-03-11] MEDS: CEROVITE ADV FORMULA TAB PO SCH (08:04)
[2016-03-11] MEDS: SERTRALINE HCL 50 MG TAB PO SCH (08:05)
[2016-03-11] MEDS: ATORVASTATIN 10 MG TAB PO SCH (08:05)
[2016-03-11] MEDS: INSULIN ASPART 100 UNITS/ML 3 ML PEN SC SCH ×4 (08:16→21:03)
--- NOTE | 2016-03-11 09:31 | Cardiology Follow-Up ---
Subjective General Date of Service: Mar 11, 2016. Pt evaluation today including: conversation w/ patient, physical exam, chart review, lab review, review of studies, review of inpatient medication list History of Present Illness The patient is a 80 year old male seen in follow up. Complains of constipation and mild abdominal discomfort which has improved over the past 12 hours. No CP or SOB. Frequent PVC's and 3 - 5 salvos of NSVT on telemetry. Low dose dopamine infusing. Patient is hemodynamically stable. Allergies Coded Allergies: Lisinopril (Verified Allergy, Unknown, RASH, 06/24/15) Spironolactone (Verified Allergy, Unknown, unkn, 06/24/15) Zolpidem (Verified Adverse Reaction, Unknown, HALLUCINATIONS, 06/24/15) Social History Smoking Status: Former Smoker Hx Tobacco Use In Past Year?: No Hx Alcohol Use - Type And Amou: No Hx Substance Use - Type And Am: No Problem List Medical Problems: (1) Acute bronchitis Status: Acute (2) Chronic renal disease Status: Acute (3) Elevated troponin Status: Acute (4) Influenza Status: Acute (5) Systolic congestive heart failure Status: Acute Review of Systems Respiratory: + cough, + dyspnea on exertion, No dyspnea at rest, No hemoptysis , No shortness of breath, No sputum, No wheezing Cardiac: No PND, No chest pain, No claudication, No edema, No orthopnea, No palpitations Physical Exam Vital Signs Last Vital Signs Documentation Date Time Temp Pulse Resp B/P Pulse Ox O2 Delivery O2 Flow Rate FiO2 03/11/16 08:59 42 18 144/53 94 Room Air 03/11/16 07:59 36.4 03/11/16 04:22 2.0 Physical Exam Constitutional: General Apperance: heathly-appearing Level of Distress: mild distress Psychiatric: Mental Status: active & alert Head: normocephalic Eyes: EOM: EOMI ENMT: normal ENT inspection, hearing grossly normal Neck: supple, no masses Lungs: Respiratory effort: no dyspnea, good air movement Auscultation: breath sounds normal, no wheezing Cardiovascular: Heart Auscultation: no murmurs, no rubs, no gallops, bradycardia, irregular rate rhythm Peripheral Pulses: Bruits: none appreciated Abdomen: Bowel Sounds: normal Inspection & Palpation: soft, no tenderness, guarding & rebound, no masses Musculoskeletal: normal strength (5/5 throughout) Extremities: no edema Neurologic: Cranial Nerves: grossly intact Sensation: grossly intact Assessment and Plan Assessment and Plan FINAL IMPRESSION: 1. An 80-year-old male with known severe underlying ischemic cardiomyopathy, presents with symptomatic bradycardia, heart rate currently supported with with low dose dopamine infusion. 2. Chronic atrial fibrillation with therapeutic INR. 2.7 today. 3. Chronic kidney disease stage IV. 4. Nonsustained ventricular tachycardia. PLAN AND RECOMMENDATIONS: Patient will receive dose of vitamine K per EP recommendations. Continue low dose dopamine infusion. Repeat electrolytes in AM. Plan BiV-ICD implantation in AM. Will Follow. Laboratory Results Last 24 Hours Test 03/10/16 16:36 03/10/16 21:01 03/11/16 05:14 03/11/16 05:15 Bedside Glucose 231 mg/dl 202 mg/dl White Blood Count 10.45 K/uL Red Blood Count 4.39 M/uL Hemoglobin 13.2 g/dL Hematocrit 38.9 % Mean Corpuscular Volume 88.6 fL Mean Corpuscular Hemoglobin 30.1 pg Mean Corpuscular Hemoglobin Concent 33.9 g/dl Platelet Count 175 K/uL Mean Platelet Volume 9.6 fL Neutrophils (%) (Auto) 74.0 % Lymphocytes (%) (Auto) 16.7 % Monocytes (%) (Auto) 6.7 % Eosinophils (%) (Auto) 2.0 % Basophils (%) (Auto) 0.0 % Neutrophils # (Auto) 7.74 K/uL Lymphocytes # (Auto) 1.74 K/uL Monocytes # (Auto) 0.70 K/uL Eosinophils # (Auto) 0.21 K/uL Basophils # (Auto) 0.00 K/uL RDW Standard Deviation 54.5 fL RDW Coefficient of Variation 16.7 % Immature Granulocyte % (Auto) 0.6 % Immature Granulocyte # (Auto) 0.06 K/uL Prothrombin Time 30.5 SECONDS Prothromb Time International Ratio 2.7 Sodium Level 141 mmol/L Potassium Level 4.6 mmol/L Chloride Level 111 mmol/L Carbon Dioxide Level 22 mmol/L Anion Gap 8.0 mmol/L Blood Urea Nitrogen 62 mg/dl Creatinine 2.00 mg/dl Est Creatinine Clear Calc Drug Dose 29.9 ml/min Estimated GFR () 35.2 Estimated GFR (Non- 30.4 BUN/Creatinine Ratio 31.0 Random Glucose 199 mg/dl Calcium Level 8.3 mg/dl Magnesium Level 2.4 mg/dl
--- NOTE | 2016-03-11 11:03 | Pharmacy Progress Note ---
Glycemic Control: Progress Nt Date of Service Mar 11, 2016. Scope Glycemic Pharmacist consulted by Dr Lo on 03/08/16 for glycemic control and to write orders per [facility] inpatient glycemic control protocol. Objective Accuchecks BSG (last 24hrs): Test 03/10/16 16:36 03/10/16 21:01 03/11/16 05:15 Bedside Glucose 231 mg/dl (70-99) 202 mg/dl (70-99) Random Glucose 199 mg/dl (70-99) Laboratory Data (last 24hrs) Test 03/11/16 05:14 03/11/16 05:15 White Blood Count 10.45 K/uL Red Blood Count 4.39 M/uL Hemoglobin 13.2 g/dL Hematocrit 38.9 % Mean Corpuscular Volume 88.6 fL Mean Corpuscular Hemoglobin 30.1 pg Mean Corpuscular Hemoglobin Concent 33.9 g/dl Platelet Count 175 K/uL Mean Platelet Volume 9.6 fL Neutrophils (%) (Auto) 74.0 % Lymphocytes (%) (Auto) 16.7 % Monocytes (%) (Auto) 6.7 % Eosinophils (%) (Auto) 2.0 % Basophils (%) (Auto) 0.0 % Neutrophils # (Auto) 7.74 K/uL Lymphocytes # (Auto) 1.74 K/uL Monocytes # (Auto) 0.70 K/uL Eosinophils # (Auto) 0.21 K/uL Basophils # (Auto) 0.00 K/uL Anion Gap 8.0 mmol/L BUN/Creatinine Ratio 31.0 Blood Urea Nitrogen 62 mg/dl Creatinine 2.00 mg/dl Potassium Level 4.6 mmol/L Sodium Level 141 mmol/L HbA1c: Test 03/09/16 05:46 Hemoglobin A1c 8.2 % (4.5-5.6) H Recent Pertinent Medications Outpatient Anti-diabetic Regimen: * NovoLog Mix 70/30 * 28 units SQ in the AM * 12 units SQ in the evening with supper The patient is currently receiving: * Basal insulin: Lantus 10 units every 12 hours - currently on hold , has only received 1 dose 12/8 in the PM * Correctional Insulin: NovoLog Correction per scale AC/HS Goal Range: Low 140 mg/dL - High 180 mg/dL Correction Factor: 30 mg/dL/unit * Prandial insulin: 1 unit per 20 gm CHO consumed Risk Factors for Insulin Resistance: * Pressors: dopamine IV * Diet: T2DM/AHA, 1500mL restriction, mechanical soft - resumed yesterday Risk Factors for Insulin Sensitivity: * Acute on chronic kidney disease - SCr improving daily Assessment & Plan ASSESSMENT: * ADA & AACE recommend a goal blood sugar range 140-180 mg/dl for the majority of critically ill & non-critically ill patients. However, more stringent targets may be selected in individual cases. 03/09/16 * 80 y/o known type 2 diabetic who presents with near syncope and amanda cardia. * Hypoglycemia noted on admission * the patient has not been feeling well and has had decreased PO intake, however has continued his insulin administrations * BSGs remain below goal range despite minimal insulin administration * will continue to hold long acting Lantus at this time and only order correctional insulin * A1c- current * 8.2% may be slightly above goal for this patient, however would not aim much lower secondary to the Elements of Diabetes Care Scoring Scale and suggested glycemic targets based on this. 03/10/16 * Mr. Redd received 4 units of insulin yesterday with BSGs ranging from 85- 224 mg/dL in the past 24 hrs * His BSGs became elevated later yesterday, most likely due to po intake w/o prandial coverage * His fasting is acceptable this AM w/o basal insulin on board - will continue to hold basal at this time 03/11/16 * Mr. Redd's BSGs have finally started to increase and consistently stay high * This is most likely a result of resuming po intake and SCr improving * He received 9 units of insulin yesterday with fasting today of 199 mg/dL * Will plan to resume basal at this time but will be conservative with dosing and only give a one time dose as he will be NPO tomorrow for ICD placement PLAN FOR INPATIENT GLYCEMIC CONTROL: * Lantus 10 units x 1 this AM - re-evaluate tomorrow if additional Lantus needed * Continue correction factor of 30 mg/dl/unit * Continue carb ratio of 1 unit per 20 grams CHO consumed * Continue goal range of Low 140 mg/dL - High 180 mg/dL for critically ill patient in the ICU DISCHARGE RECOMMENDATIONS: * Continue outpatient regimen of Novolog 70/30 as per A1c and CDE discussion with patient's * Ensure patient and understand that dose needs reduced if patient is not eating well during the day (which occurred prior to admission). Can consider having them decrease AM dose to 20 units if patient does not plan to eat much during breakfast/lunch that day. Thank you.
--- NOTE | 2016-03-11 12:25 | Critical Care Progress Note ---
Critical Care Progress Note Date of Service Mar 11, 2016. Attending Dr. Graves Subjective No complaints, denies chest pain shortness of breath, no headache. 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 Endocrine: Last 24 hour glucose: Ranging from 215-231, recently restarted food Insulin protocol: Yes; Drip: No Hematology: DVT prophylaxis: Per therapeutic INR at 2.7, SCDs in place Infectious Disease/Immunology: Tmax: 36 6 CVL (date): Placed 03/09/2016, needed for vasoactive medication administration, and possible temporary transvenous pacer placement, poor vascular access Antimicrobials: None Cultures: Blood: No growth at 24 hours Assessment & Plan Cardiology: * Hx Atrial Fibrillation - Coumadin Held * Hx of Non-ischemic Cardiomyopathy * Continue Dopamine * Cardiology Consulted * Pacer/AICD placement scheduled for tomorrow G.I. * AHA Diet * Continue Protonix QDaily * Hx Pancreatic Cancer - Continue Creon at home medication dose * Nothing by mouth after midnight, reviewed pharmacy glycemic control, we'll not get p.m. insulin Renal: * BUN/creatinine improving slightly, reviewed renal consult * Stopped IV fluids as patient taking adequate by mouth * Nothing by mouth at midnight, and saline will be TKO at midnight Endocrine: * DM II - A1C 8.5% - SSI & check sugars per protocol * Heme: * Hold Coumadin * SCDs for prophylaxis * Given 2.5 mg vitamin K by mouth in anticipation of pacer tomorrow management by cardiology ID: * Afebrile * Monitor fever curve * WBC 12 today IV Access: * Right introducer right internal jugular vein for vasoactive medications and possible temporary pacer if needed * DC CVL tomorrow once pacer placed Data Medications: Current Inpatient Medications Medications (Trade) Dose Ordered Sig/Quoc Route Start Time Stop Time Status Last Admin Dose Admin Acetaminophen (Tylenol Tab) 650 mg Q4H PRN PO 03/08/16 17:00 04/07/16 16:59 03/10/16 03:22 650 MG Ondansetron HCl (Zofran Inj) 4 mg Q6H PRN IV 03/08/16 17:00 04/07/16 16:59 Nitroglycerin (Nitrostat Tab) 0.4 mg UD PRN SL 03/08/16 17:00 04/07/16 16:59 Insulin Aspart (novoLOG ASPART) SLIDING SCALE G... ACHS SC 03/08/16 21:00 04/07/16 20:59 03/11/16 12:02 5 UNITS Glucose (Glucose 40% Gel) 15-30 GRAMS 15 GRAMS... UD PRN PO 03/08/16 17:15 04/07/16 17:14 Glucose (Glucose Chew Tab) 4-8 Tablets 4 Tabl... UD PRN PO 03/08/16 17:15 04/07/16 17:14 Dextrose (Dextrose 50% 50ML Syringe) 25-50ML OF 50% DW IV FOR... UD PRN IV 03/08/16 17:15 04/07/16 17:14 Glucagon (Glucagon Inj) 1 mg UD PRN SQ 03/08/16 17:15 04/07/16 17:14 Miscellaneous Information (Consult Glycemic Management Pharmacy) 1 ea UD PRN N/A 03/08/16 19:45 04/07/16 19:44 Atorvastatin Calcium (Lipitor Tab) 10 mg DAILY PO 03/09/16 09:00 04/08/16 08:59 03/11/16 08:05 10 MG Calcitriol (Rocaltrol Cap) 0.25 mcg DAILY PO 03/09/16 09:00 04/08/16 08:59 03/11/16 08:04 0.25 MCG Clopidogrel Bisulfate (plAVix TAB) 75 mg DAILY PO 03/09/16 09:00 04/08/16 08:59 03/11/16 08:04 75 MG Fluticasone Propionate (Flonase Nasal [place]) 2 sprays DAILY RICHA 03/09/16 09:00 04/08/16 08:59 03/11/16 08:02 2 SPRAYS Levalbuterol (Xopenex Hfa Inhaler) 2 puffs Q4H PRN INH 03/08/16 17:30 04/07/16 17:29 Multivitamins/ Minerals (Multivitamin W/ Minerals Tab) 1 tab DAILY PO 03/09/16 09:00 04/08/16 08:59 03/11/16 08:04 1 TAB Sertraline HCl (Zoloft Tab) 25 mg DAILY PO 03/09/16 09:00 04/08/16 08:59 03/11/16 08:05 25 MG Tamsulosin HCl (Flomax Cap) 0.4 mg DAILY PO 03/09/16 09:00 04/08/16 08:59 03/11/16 08:02 0.4 MG Miscellaneous Information (Order Awaiting Action) 1 ea QS N/A 03/08/16 19:45 04/07/16 19:44 Amylase/Lipase/ Protease (Pancreaze (Lipase 10,500U) Cap) 2 cap TIDM PO 03/09/16 07:15 04/08/16 07:29 03/11/16 11:14 2 CAP Amylase/Lipase/ Protease 1-2 CAPS WITH SNACKS UD PRN PO 03/08/16 19:45 04/07/16 19:44 Dopamine HCl/ Dextrose 250 ml @ 0 mls/hr Q0M PRN IV 03/09/16 02:30 04/08/16 02:29 03/10/16 05:12 3 MLS/HR Pantoprazole Sodium/Syringe (Protonix Inj/ Syringe) 10 ml @ 5 mls/min Q24H IV 03/10/16 09:00 04/09/16 08:59 03/11/16 08:01 5 MLS/MIN Docusate Sodium (coLACE CAP) 100 mg BID PO 03/10/16 18:00 04/09/16 17:59 03/11/16 08:02 100 MG Polyethylene (Miralax Powder Packet) 17 gm HS PO 03/10/16 18:00 04/09/16 17:59 03/10/16 18:16 17 GM Polyethylene (Miralax Powder Packet) 17 gm Q6H PRN PO 03/10/16 21:15 04/09/16 21:14 Cefazolin Sodium 1000 mg 1,000 mg PREOP IV 03/12/16 06:00 03/12/16 12:00 Lactated Ringer's (Lr 1000ml) 1,000 ml @ 15 mls/hr Q24H ONCE IV 03/12/16 06:00 03/13/16 05:59 I & O: 24-Hour Column 03/11/16 07:59 Intake Total 1615 ml Output Total 975 ml Balance 640 ml Vital Signs: Date Time Temp Pulse Resp B/P Pulse Ox O2 Delivery O2 Flow Rate FiO2 03/11/16 10:00 82 18 100/59 94 Room Air 03/11/16 08:59 42 18 144/53 94 Room Air 03/11/16 08:00 61 19 96 03/11/16 07:59 36.4 82 17 129/78 97 Room Air 03/11/16 07:40 97 Room Air 03/11/16 07:00 71 22 97 03/11/16 05:59 36.8 46 14 136/72 96 Room Air 03/11/16 05:00 69 21 130/82 94 Room Air 03/11/16 04:22 96 Room Air 2.0 03/11/16 03:59 71 23 141/59 Room Air 03/11/16 02:00 47 17 129/52 95 Room Air 03/11/16 01:00 53 18 134/57 93 Room Air 03/11/16 00:21 96 Room Air 2.0 03/11/16 00:00 36.8 61 14 125/48 92 Room Air 03/10/16 22:00 48 26 119/47 93 Room Air 03/10/16 21:00 41 16 139/59 96 Room Air 03/10/16 20:07 96 Room Air 2.0 03/10/16 19:59 36.6 48 22 106/45 93 Room Air 03/10/16 19:18 63 21 82/51 92 03/10/16 16:15 Room Air 03/10/16 14:00 68 20 104/40 95 Room Air Laboratory Results: Last 24 Hours Test 03/10/16 16:36 03/10/16 21:01 03/11/16 05:14 03/11/16 05:15 Bedside Glucose 231 mg/dl 202 mg/dl White Blood Count 10.45 K/uL Red Blood Count 4.39 M/uL Hemoglobin 13.2 g/dL Hematocrit 38.9 % Mean Corpuscular Volume 88.6 fL Mean Corpuscular Hemoglobin 30.1 pg Mean Corpuscular Hemoglobin Concent 33.9 g/dl Platelet Count 175 K/uL Mean Platelet Volume 9.6 fL Neutrophils (%) (Auto) 74.0 % Lymphocytes (%) (Auto) 16.7 % Monocytes (%) (Auto) 6.7 % Eosinophils (%) (Auto) 2.0 % Basophils (%) (Auto) 0.0 % Neutrophils # (Auto) 7.74 K/uL Lymphocytes # (Auto) 1.74 K/uL Monocytes # (Auto) 0.70 K/uL Eosinophils # (Auto) 0.21 K/uL Basophils # (Auto) 0.00 K/uL RDW Standard Deviation 54.5 fL RDW Coefficient of Variation 16.7 % Immature Granulocyte % (Auto) 0.6 % Immature Granulocyte # (Auto) 0.06 K/uL Prothrombin Time 30.5 SECONDS Prothromb Time International Ratio 2.7 Sodium Level 141 mmol/L Potassium Level 4.6 mmol/L Chloride Level 111 mmol/L Carbon Dioxide Level 22 mmol/L Anion Gap 8.0 mmol/L Blood Urea Nitrogen 62 mg/dl Creatinine 2.00 mg/dl Est Creatinine Clear Calc Drug Dose 29.9 ml/min Estimated GFR () 35.2 Estimated GFR (Non- 30.4 BUN/Creatinine Ratio 31.0 Random Glucose 199 mg/dl Calcium Level 8.3 mg/dl Magnesium Level 2.4 mg/dl
--- NOTE | 2016-03-11 13:17 | PROGRESS NOTE ---
DATE: 03/11/2016 SUBJECTIVE: The patient denies any new complaints. He denies any constipation, abdominal pain which he had 2 days ago, but no longer has that. No chest pain or shortness of breath. He is still getting low dose dopamine. He is otherwise hemodynamically stable. He is scheduled to have a biventricular ICD placement tomorrow. Urine output has increased. He made 1300 mL in a 24-hour time period yesterday. PHYSICAL EXAMINATION: GENERAL: He is awake, alert, oriented x3. HEENT: Mucous membrane is moist. NECK: Supple. No jugular venous distention. VITAL SIGNS: Most recent vital signs shows a blood pressure of 100/59, 94% on room air, pulse rate 82 per minute. CHEST: Bilateral decreased breath sounds and occasional crackles. CARDIOVASCULAR: S1 and S2 irregular. ABDOMEN: Soft, nontender. EXTREMITIES: Show no edema. LABORATORY TESTS: From this morning shows sodium 141, potassium 4.6, chloride 111, BUN 62, creatinine is 2.00. It is worth noting creatinine has improved from the peak of 2.7 to 2.0 now. Glucose 202, calcium 8.3, magnesium 2.4. ASSESSMENT AND PLAN: An 80-year-old male with known severe underlying ischemic cardiomyopathy, presented with symptomatic bradycardia, hypotension which led to acute kidney injury. 1. Acute kidney injury. This was prerenal secondary to low blood pressure and low heart rate. It has improved with better vital signs. He is making adequate urine. He does not appear fluid overloaded or volume depleted at this time. Continue current management. No further action needed from the renal standpoint. Most likely creatinine will improve further in the coming days. MTDD
--- NOTE | 2016-03-11 17:08 | Progress Note ---
Internal Med Progress Note Date of Service: Mar 11, 2016. Provider Documentation: SUBJECTIVE: was constipated but moved bowels now has some abdominal discomfort afebrile denies chest pain or sob awaiting procedure in am OBJECTIVE: Vital Signs-as noted below Exam: General-alert and oriented. Not in distress ENT-Hard of hearing Neck-no neck masses Lungs-cta b/l no wheezing or crackles Heart-S1 and S2 heard irregular rate and rhythm, no murmurs Abdomen-Soft bowels sounds present non tender no distension Extremities-no edema no erythema Neuro-alert and awake moves extremities Lab data as noted below. 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 FALL, PRESYNCOPE LIKELY SECONDARY TO: SYMPTOMATIC BRADYCARDIA tsh is normal hx of cardiomyopathy wth EF 30-35% still requiring low dose dopamine drip has introducer sheath incase temporary pacing required plan for ICD on Saturday close monitor in ICU. stable NAUSEA, POOR APPETITE history of hiatal hernia per patient On Protonix Will monitor and GI consult if persistent No complaints . stable HISTORY OF CAD mild elevation of troponin mostly from bradycardia on , plavix holding Coreg and Entresto for now asymptomatic NON ISCHEMIC CARDIOMYOPATHY will monitor for volume overload holding Torsemide A FIB, ON COUMADIN INR 5.7 to 2.7 today Coumadin held received vitamin k for procedure tomorrow. will f/u inr DM 2 Holding Novolog currently on ISS for now Pharmacy consulted 202/199/258/213 will monitor. HYPERTENSION hypotensive Holding Coreg, Entresto, Torsemide for now Arf on CKD 3 baseline around 1.5, but increasing to 2-2.2 the past few months presented with cr 2.7 received gentle fluids cr .2.0 today stopped fluids diuretics on hold nephrology consulted f/u labs HISTORY OF CVA on coumadin, Plavix Coumadin on hold COPD not in exacerbation HISTORY OF PANCREATIC CANCER s/p Whipple procedure on creON DVT prophylaxis inr 2.7 Code status Full code as per patient Disposition close monitor in icu await pacemaker/ICD in am. Vital Signs: Date Time Temp Pulse Resp B/P Pulse Ox O2 Delivery O2 Flow Rate FiO2 03/11/16 15:08 98 Room Air 03/11/16 12:30 46 15 95 03/11/16 12:00 45 22 94 03/11/16 11:59 36.5 35 14 112/57 96 Room Air 03/11/16 11:35 93 Room Air 03/11/16 11:30 88 26 96 03/11/16 11:00 52 20 133/66 94 03/11/16 10:30 34 16 96 03/11/16 10:00 82 18 100/59 94 Room Air 03/11/16 08:59 42 18 144/53 94 Room Air 03/11/16 08:00 61 19 96 03/11/16 07:59 36.4 82 17 129/78 97 Room Air 03/11/16 07:40 97 Room Air 03/11/16 07:00 71 22 97 03/11/16 05:59 36.8 46 14 136/72 96 Room Air 03/11/16 05:00 69 21 130/82 94 Room Air 03/11/16 04:22 96 Room Air 2.0 03/11/16 03:59 71 23 141/59 Room Air 03/11/16 02:00 47 17 129/52 95 Room Air 03/11/16 01:00 53 18 134/57 93 Room Air 03/11/16 00:21 96 Room Air 2.0 03/11/16 00:00 36.8 61 14 125/48 92 Room Air 03/10/16 22:00 48 26 119/47 93 Room Air 03/10/16 21:00 41 16 139/59 96 Room Air 03/10/16 20:07 96 Room Air 2.0 03/10/16 19:59 36.6 48 22 106/45 93 Room Air 03/10/16 19:18 63 21 82/51 92 Lab Results: Results Past 24 Hours Test 03/10/16 21:01 03/11/16 05:14 03/11/16 05:15 03/11/16 11:23 Range/Units Bedside Glucose 202 258 70-99 mg/dl White Blood Count 10.45 4.8-10.8 K/uL Red Blood Count 4.39 4.7-6.1 M/uL Hemoglobin 13.2 14.0-18.0 g/dL Hematocrit 38.9 42-52 % Mean Corpuscular Volume 88.6 80-100 fL Mean Corpuscular Hemoglobin 30.1 25-34 pg Mean Corpuscular Hemoglobin Concent 33.9 32-36 g/dl Platelet Count 175 130-400 K/uL Mean Platelet Volume 9.6 7.4-10.4 fL Neutrophils (%) (Auto) 74.0 % Lymphocytes (%) (Auto) 16.7 % Monocytes (%) (Auto) 6.7 % Eosinophils (%) (Auto) 2.0 % Basophils (%) (Auto) 0.0 % Neutrophils # (Auto) 7.74 1.4-6.5 K/uL Lymphocytes # (Auto) 1.74 1.2-3.4 K/uL Monocytes # (Auto) 0.70 0.11-0.59 K/uL Eosinophils # (Auto) 0.21 0-0.5 K/uL Basophils # (Auto) 0.00 0-0.2 K/uL RDW Standard Deviation 54.5 36.4-46.3 fL RDW Coefficient of Variation 16.7 11.5-14.5 % Immature Granulocyte % (Auto) 0.6 % Immature Granulocyte # (Auto) 0.06 0.00-0.02 K/uL Prothrombin Time 30.5 9.0-12.0 SECONDS Prothromb Time International Ratio 2.7 0.9-1.1 Sodium Level 141 136-145 mmol/L Potassium Level 4.6 3.5-5.1 mmol/L Chloride Level 111 98-107 mmol/L Carbon Dioxide Level 22 21-32 mmol/L Anion Gap 8.0 3-11 mmol/L Blood Urea Nitrogen 62 7-18 mg/dl Creatinine 2.00 0.60-1.40 mg/dl Est Creatinine Clear Calc Drug Dose 29.9 ml/min Estimated GFR () 35.2 Estimated GFR (Non- 30.4 BUN/Creatinine Ratio 31.0 10-20 Random Glucose 199 70-99 mg/dl Calcium Level 8.3 8.5-10.1 mg/dl Magnesium Level 2.4 1.8-2.4 mg/dl Test 03/11/16 16:30 Range/Units Bedside Glucose 213 70-99 mg/dl
[2016-03-11 18:40] LABS: INR 2.2 (0.9-1.1); PROTHROMBIN TIME (PATIENT) 24.8 SECONDS (9.0-12.0)
[2016-03-11] MEDS ORDERED: NURSING VERBAL MED ORDER ONE (19:45)
[2016-03-11] MEDS ORDERED: PHYTONADIONE 5 MG TAB PO ONE (20:15)
[2016-03-11] MEDS: POLYETHYLENE (MIRALAX) 17 GM PACK PO SCH (21:04)
[2016-03-12] VITALS (28 sets, daily range): BP systolic 79–170; BP diastolic 47–93; PULSE 39–108; TEMP 36.5–36.8; O2SAT 92–100
[2016-03-12] MEDS ORDERED: SODIUM CHLORIDE 0.9% 1000ML 1,000 ML IV SCH (01:00)
[2016-03-12] MEDS ORDERED: LACTATED RINGER'S 1000ML 1,000 ML IV ONE (06:00)
[2016-03-12] MEDS ORDERED: CEFAZOLIN IV 2,000 MG/60 ML D5W IV SCH (06:00)
[2016-03-12 06:17] LABS: BASO % 0.1 %; BASO ABS # 0.01 K/uL (0-0.2); COMPLETE YES; EOS % 3.6 %; IG% 0.4 %; LYMPH ABS # 1.71 K/uL (1.2-3.4); MEAN CORPUSCULAR HEMOGLOBIN 30.4 pg (25-34); MEAN CORPUSCULAR HGB CONC 34.2 g/dl (32-36); MEAN PLATELET VOLUME 10.3 fL (7.4-10.4); MONO % 7.9 %; PLATELET COUNT 160 K/uL (130-400); RED BLOOD COUNT 4.27 M/uL (4.7-6.1)
[2016-03-12 06:25] LABS: INR 1.5 (0.9-1.1); PROTHROMBIN TIME (PATIENT) 16.7 SECONDS (9.0-12.0)
[2016-03-12 06:51] LABS: BUN/CREATININE RATIO 26.4 (10-20); MAGNESIUM 2.6 mg/dl (1.8-2.4); POTASSIUM 4.5 mmol/L (3.5-5.1)
[2016-03-12] MEDS ORDERED: BACITRACIN OINT 0.9 GM PKT ONE (06:58)
[2016-03-12] MEDS ORDERED: BACITRACIN 50000 UNIT VIAL ONE (06:58)
[2016-03-12] MEDS ORDERED: LIDOCAINE HCL 1% 20 ML VIAL ONE (06:58)
[2016-03-12] MEDS ORDERED: MIDAZOLAM HCL 5 MG/ML 1 ML VIAL ONE (07:13)
[2016-03-12] MEDS ORDERED: FENTANYL CITRATE INJ 50 MCG/1 ML 2 ML VIAL ONE (07:13)
[2016-03-12] MEDS ORDERED: INSULIN GLARGINE SOLOSTAR 100 UNITS/ML 3 ML PEN SC SCH ×2 (07:15→21:00)
[2016-03-12] MEDS: PANCREAZE (LIPASE 10,500U) CAP PO SCH ×3 (07:15→15:49)
[2016-03-12 07:20] LABS: CALCIUM 8.5 mg/dl (8.5-10.1)
[2016-03-12] MEDS ORDERED: KEFZOL SPECIAL PROCEDURE STOCK 1 GM ADDVIAL IV ONE (07:20)
[2016-03-12] MEDS: INSULIN ASPART 100 UNITS/ML 3 ML PEN SC SCH ×4 (07:30→20:40)
--- NOTE | 2016-03-12 07:38 | Procedure Note ---
Pre-Mod Sedation Assessment General Date of Moderate Sedation: Mar 12, 2016. Vital Signs: Vital Signs Past 12 Hours Date Time Temp Pulse Resp B/P Pulse Ox O2 Delivery O2 Flow Rate FiO2 03/12/16 05:59 75 17 134/49 Room Air 03/12/16 05:27 58 17 142/52 92 Room Air 03/12/16 04:59 80 18 170/64 95 Room Air 03/12/16 04:09 95 Room Air 2.0 03/12/16 03:59 53 16 147/54 93 Room Air 03/12/16 03:00 55 19 121/75 93 Room Air 03/12/16 02:00 57 20 134/48 95 Room Air 03/12/16 01:00 39 18 123/51 94 Room Air 03/12/16 00:11 95 Room Air 2.0 03/11/16 23:59 54 22 122/64 91 Room Air 03/11/16 22:59 66 20 137/57 94 Room Air 03/11/16 21:59 40 26 127/48 93 Room Air 03/11/16 21:00 70 23 124/58 Room Air 03/11/16 20:03 53 15 105/42 93 Room Air 03/11/16 20:03 95 Room Air 2.0 Review Cardiovascular: + irregularly irregular Abdomen: normal bowel sounds Lungs: lungs clear Pre-Sedation Airway Assessment Oral Cavity: Dental Abnormalities Smoking Status: Former Smoker Procedure Planning Contraindications-for Mod Sed: None Yes Notes The planned sedation has been discussed with the patient and consent obtained. I have identified the patient, determined the appropriateness of sedation and have assessed the patient immediately prior to the procedure. All medicine(s) and interventions are by my order.
[2016-03-12] MEDS: CLOPIDOGREL BISULFATE 75 MG TAB PO SCH ×2 (09:00→11:37)
[2016-03-12] MEDS: DOCUSATE SODIUM 100 MG CAP PO SCH ×2 (09:00→20:49)
--- NOTE | 2016-03-12 09:17 | Procedure Note ---
Post-Mod Sedation Assessment General Date of Moderate Sedation Mar 12, 2016. Vital Signs: Vital Signs Past 12 Hours Date Time Temp Pulse Resp B/P Pulse Ox O2 Delivery O2 Flow Rate FiO2 03/12/16 05:59 75 17 134/49 Room Air 03/12/16 05:27 58 17 142/52 92 Room Air 03/12/16 04:59 80 18 170/64 95 Room Air 03/12/16 04:09 95 Room Air 2.0 03/12/16 03:59 53 16 147/54 93 Room Air 03/12/16 03:00 55 19 121/75 93 Room Air 03/12/16 02:00 57 20 134/48 95 Room Air 03/12/16 01:00 39 18 123/51 94 Room Air 03/12/16 00:11 95 Room Air 2.0 03/11/16 23:59 54 22 122/64 91 Room Air 03/11/16 22:59 66 20 137/57 94 Room Air 03/11/16 21:59 40 26 127/48 93 Room Air Review - Discharge Criteria Vital Signs Stable: Yes Alert/Oriented/Conversant: Yes Returned to Baseline Mental St: Yes Nausea Absent/Minimal: Yes Pain/Discomfort/Absent/Minimal: Yes Normal/Baseline Respirations: Yes Active Bleeding?: No
--- NOTE | 2016-03-12 09:20 | Cardiology Procedure Brief Nt ---
Preliminary Cardiology Note Procedure Date Mar 12, 2016. Pre-Procedure Diagnosis ischemic cardiomyopathy and bradycardia Post-Procedure Diagnosis same Procedure(s) Performed Left subclavian venogram Right ventricular ICD lead implantation Coronary sinus angiography Biventricular ICD implantation (no atrial lead) Prosthetist Dr. Carrington Health [employer] Manager(s) none Estimated Blood Loss 50 cc Preliminary Findings Acceptable lead position in the mid posterior lateral left ventricle, diaphragmatic pacing in many configurations but acceptable margin from LV 1 to LV 2 Recommendations Monitor Specimens None Anesthesia local with sedation Complication(s) None Disposition Surgical ICU
--- NOTE | 2016-03-12 09:23 | Pharmacy Progress Note ---
Glycemic Control: Progress Nt Date of Service Mar 12, 2016. Scope Glycemic Pharmacist consulted by Dr Lo on 03/08/16 for glycemic control and to write orders per [facility] inpatient glycemic control protocol. Objective Accuchecks BSG (last 24hrs): Test 03/11/16 11:23 03/11/16 16:30 03/11/16 20:25 03/12/16 05:54 Bedside Glucose 258 mg/dl (70-99) 213 mg/dl (70-99) 197 mg/dl (70-99) Random Glucose 195 mg/dl (70-99) Laboratory Data (last 24hrs) Test 03/12/16 05:54 Anion Gap 8.0 mmol/L BUN/Creatinine Ratio 26.4 Blood Urea Nitrogen 53 mg/dl Creatinine 2.00 mg/dl Potassium Level 4.5 mmol/L Sodium Level 145 mmol/L White Blood Count 9.50 K/uL Red Blood Count 4.27 M/uL Hemoglobin 13.0 g/dL Hematocrit 38.0 % Mean Corpuscular Volume 89.0 fL Mean Corpuscular Hemoglobin 30.4 pg Mean Corpuscular Hemoglobin Concent 34.2 g/dl Platelet Count 160 K/uL Mean Platelet Volume 10.3 fL Neutrophils (%) (Auto) 70.0 % Lymphocytes (%) (Auto) 18.0 % Monocytes (%) (Auto) 7.9 % Eosinophils (%) (Auto) 3.6 % Basophils (%) (Auto) 0.1 % Neutrophils # (Auto) 6.65 K/uL Lymphocytes # (Auto) 1.71 K/uL Monocytes # (Auto) 0.75 K/uL Eosinophils # (Auto) 0.34 K/uL Basophils # (Auto) 0.01 K/uL HbA1c: Test 03/09/16 05:46 Hemoglobin A1c 8.2 %(4.5-5.6) H Recent Pertinent Medications Outpatient Anti-diabetic Regimen: * NovoLog Mix 70/30 * 28 units SQ in the AM * 12 units SQ in the evening with supper * A1c = 8.2 % 03/09/16 The patient is currently receiving: * Basal insulin: Lantus 10 units PRN - last dose 03/11 AM * Correctional Insulin: NovoLog Correction per scale AC/HS Goal Range: Low 140 mg/dL - High 180 mg/dL Correction Factor: 30 mg/dL/unit * Prandial insulin: Per carb ratio of 1 unit per 15 grams CHO consumed Risk Factors for Insulin Resistance: * Pressors: dopamine IV - likely will be discontinued postprocedure * Recent Procedure: 03/[address] Carrington * Diet: T2DM/AHA, 1500mL restriction, mechanical soft --> NPO --> diet resumed post procedure Assessment & Plan ASSESSMENT: * ADA & AACE recommend a goal blood sugar range 140-180 mg/dl for the majority of critically ill & non-critically ill patients. However, more stringent targets may be selected in individual cases. 03/09/16 * 80 y/o known type 2 diabetic who presents with near syncope and amanda cardia. * Hypoglycemia noted on admission * the patient has not been feeling well and has had decreased PO intake, however has continued his insulin administrations * BSGs remain below goal range despite minimal insulin administration * will continue to hold long acting Lantus at this time and only order correctional insulin * A1c- current * 8.2% may be slightly above goal for this patient, however would not aim much lower secondary to the Elements of Diabetes Care Scoring Scale and suggested glycemic targets based on this. 03/10/16 * Mr. Redd received 4 units of insulin yesterday with BSGs ranging from 85- 224 mg/dL in the past 24 hrs * His BSGs became elevated later yesterday, most likely due to po intake w/o prandial coverage * His fasting is acceptable this AM w/o basal insulin on board - will continue to hold basal at this time 03/11/16 * Mr. Redd's BSGs have finally started to increase and consistently stay high * This is most likely a result of resuming po intake and SCr improving * He received 9 units of insulin yesterday with fasting today of 199 mg/dL * Will plan to resume basal at this time but will be conservative with dosing and only give a one time dose as he will be NPO tomorrow for ICD placement 03/12/16 * Mr Redd received 24 units on 03/11 with BSGs ranging from 197-258mg/dL * likely he is somewhat basal insulin deficient since we were holding doses 2/ 2 hypoglycemia on admission - will resume basal insulin and likely see a trend downward of BSGs * NPO this AM for procedure with Dr. Nydegger - likely diet will resume after this. * continue both basal and prandial insulins * slight tighten carb ratio at this time for better glycemic control PLAN FOR INPATIENT GLYCEMIC CONTROL: * Continue to hold outpatient regimen at this time * mixed insulins are not typically used for inpatients secondary to changing PO status/difficulty to titrate * Lantus 10 units SQ x1 this AM * Will further increase to 10 units BID - half dose if BSG is below 140mg/dL * Continue NovoLog AC and HS * Correction factor: 30mg/dL/unit * Carb ratio: 1 unit per 10 g of CHO consumed * Goal range: 140-180mg/dL per ADA recommendations * A1c - current * added to discharge instructions This patient may require additional counseling upon discharge as to avoid hypoglycemia in the future when PO intake varies. * Please note that the plan above was derived based on current level of insulin resistance and hospital stress. These recommendations are appropriate for inpatient admission only. Plan of care upon discharge will need to be reassessed to avoid potential outpatient hypo/hyperglycemia. Thank you.
[2016-03-12] MEDS: TAMSULOSIN HCL 0.4 MG CAP PO SCH (10:02)
[2016-03-12] MEDS: ATORVASTATIN 10 MG TAB PO SCH (10:02)
[2016-03-12] MEDS: SERTRALINE HCL 50 MG TAB PO SCH (10:02)
[2016-03-12] MEDS: CALCITRIOL 0.25 MCG CAP PO SCH (10:02)
[2016-03-12] MEDS: PANTOprazole SOD 40 MG TAB PO SCH (10:02)
[2016-03-12] MEDS: CEROVITE ADV FORMULA TAB PO SCH (10:02)
[2016-03-12] MEDS: FLUTICASONE PROPIONATE NA SPR 16 GM BTL NAE SCH (10:03)
[2016-03-12] MEDS: ACETAMINOPHEN/CODEINE 300/30MG TAB PO PRN ×2 (10:05→22:04)
[2016-03-12] MEDS: CARVEDILOL 6.25 MG TAB PO SCH ×2 (11:40→20:08)
--- NOTE | 2016-03-12 11:50 | Cardiology Follow-Up ---
Subjective General Date of Service: Mar 12, 2016. Chief Complaint: follow up syncope, cardiomyopathy, chronic AF Pt evaluation today including: conversation w/ patient, conversation w/ family , physical exam, conversation w/ [facility] consultant History of Present Illness The patient is a 80 year old male seen in general cardiology follow up today. Earlier this am he underwent implant of a biventricular pacemaker AICD by EP. Pt tolerated the procedure well. He returned to the surgical intensive care unit. Telemetry reveals occasional ventricular paced QRS complexes with ventricular rates in the 90-100 bpm range. Underlying rhythm appears to be atrial fibrillation with rapid ventricular rate and recurrent PVCs with occasional ventricular pacing. Allergies Coded Allergies: Lisinopril (Verified Allergy, Unknown, RASH, 06/24/15) Spironolactone (Verified Allergy, Unknown, unkn, 06/24/15) Zolpidem (Verified Adverse Reaction, Unknown, HALLUCINATIONS, 06/24/15) Social History Smoking Status: Former Smoker Hx Tobacco Use In Past Year?: No Hx Alcohol Use - Type And Amou: No Hx Substance Use - Type And Am: No Problem List Medical Problems: (1) Acute bronchitis Status: Acute (2) Chronic renal disease Status: Acute (3) Elevated troponin Status: Acute (4) Influenza Status: Acute (5) Systolic congestive heart failure Status: Acute Physical Exam Vital Signs Last Vital Signs Documentation Date Time Temp Pulse Resp B/P Pulse Ox O2 Delivery O2 Flow Rate FiO2 03/12/16 11:14 Nasal Cannula 03/12/16 10:14 104 20 115/73 94 03/12/16 09:44 36.7 03/12/16 04:09 2.0 Physical Exam Constitutional: General Apperance: heathly-appearing Level of Distress: mild distress Psychiatric: Mental Status: active & alert Head: normocephalic Eyes: EOM: EOMI ENMT: normal ENT inspection, hearing grossly normal Neck: supple, no masses Lungs: Respiratory effort: no dyspnea, good air movement Auscultation: breath sounds normal, no wheezing Cardiovascular: Heart Auscultation: no murmurs, no rubs, no gallops, irregular rate rhythm Peripheral Pulses: Bruits: none appreciated Abdomen: Bowel Sounds: normal Inspection & Palpation: soft, no tenderness, guarding & rebound, no masses Musculoskeletal: normal strength (5/5 throughout) Extremities: no edema Neurologic: Cranial Nerves: grossly intact Sensation: grossly intact Additional Comments: Chest wall: Left infraclavicular device pocket site clean dry and intact. Assessment and Plan Assessment and Plan Impression: 80-year-old male 1. Admitted with syncope, noted to have persistent bradycardia which required transient transcutaneous pacing and support with dopamine 2. History of chronic atrial fibrillation for which he is on chronic anticoagulation, history of past strokes 3. Chronic systolic heart failure, LVEF 30-35% 4. 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 Stage III chronic kidney disease 6. History of hyperkalemia 7. Underlying COPD Recommendations: As said previously been documented this hospital stay, the patient had previously followed as an outpatient with both the undersigned as well as Erica [place] of our practice. His last been seen by Erica [place] on . In the meantime he had transitioned care to Dr Wood of cardiology in [place]. Medication changes were made including the addition of Entresto (sacubitril/ valsartan) I had personally previously discussed AICD placement with the patient and he declined. Patient however came in with a syncopal episode, and was agreeable to device implant this hospital stay. A biventricular device was implanted due to anticipated need for chronic pacing. He is now off the dopamine infusion. His INR had been reversed with vitamin K to proceed with the procedure, and he is now back on Coumadin. No bridge therapy given risk of pocket hematoma. Clopidogrel had been held this morning preprocedure, I have asked for his morning dose to be administered at this time, as he does have a history of left main stenting. At present, will remain off of Entresto , but will reassess candidacy for initiating this medication again based on his blood pressure, kidney function, and electrolytes. Proceed with carvedilol as previously ordered by electrophysiology. ACEI / ARB therapy at been held in the past due to renal insufficiency, and presumed orthostatic hypotension, but he apparently was on Entresto (with valsartan component) and as noted above will re-consider resuming this. Plan to transfer to telemetry, as he no longer requires ICU level care , as he is off of the dopamine infusion and his intracardiac device is functioning appropriately. Resume coumadin for stroke and DVT prophylaxis. Laboratory Results Last 24 Hours Test 03/11/16 16:30 03/11/16 18:05 03/11/16 20:25 03/12/16 05:54 Bedside Glucose 213 mg/dl 197 mg/dl Prothrombin Time 24.8 SECONDS 16.7 SECONDS Prothromb Time International Ratio 2.2 1.5 White Blood Count 9.50 K/uL Red Blood Count 4.27 M/uL Hemoglobin 13.0 g/dL Hematocrit 38.0 % Mean Corpuscular Volume 89.0 fL Mean Corpuscular Hemoglobin 30.4 pg Mean Corpuscular Hemoglobin Concent 34.2 g/dl Platelet Count 160 K/uL Mean Platelet Volume 10.3 fL Neutrophils (%) (Auto) 70.0 % Lymphocytes (%) (Auto) 18.0 % Monocytes (%) (Auto) 7.9 % Eosinophils (%) (Auto) 3.6 % Basophils (%) (Auto) 0.1 % Neutrophils # (Auto) 6.65 K/uL Lymphocytes # (Auto) 1.71 K/uL Monocytes # (Auto) 0.75 K/uL Eosinophils # (Auto) 0.34 K/uL Basophils # (Auto) 0.01 K/uL RDW Standard Deviation 55.3 fL RDW Coefficient of Variation 16.9 % Immature Granulocyte % (Auto) 0.4 % Immature Granulocyte # (Auto) 0.04 K/uL Sodium Level 145 mmol/L Potassium Level 4.5 mmol/L Chloride Level 114 mmol/L Carbon Dioxide Level 23 mmol/L Anion Gap 8.0 mmol/L Blood Urea Nitrogen 53 mg/dl Creatinine 2.00 mg/dl Est Creatinine Clear Calc Drug Dose 29.9 ml/min Estimated GFR () 35.2 Estimated GFR (Non- 30.4 BUN/Creatinine Ratio 26.4 Random Glucose 195 mg/dl Calcium Level 8.5 mg/dl Magnesium Level 2.6 mg/dl Test 03/12/16 09:59 Bedside Glucose 191 mg/dl
[2016-03-12 12:30] LABS: HEMATOCRIT 37.4 % (42-52)
[2016-03-12] MEDS ORDERED: CARVEDILOL 3.125 MG TAB PO ONE (12:30)
[2016-03-12 12:38] LABS: INR 1.4 (0.9-1.1); PROTHROMBIN TIME (PATIENT) 15.3 SECONDS (9.0-12.0)
--- NOTE | 2016-03-12 12:47 | Nephrology Progress Note ---
Nephrology Progress Note Date of Service: Mar 12, 2016. Subjective 80 yo male admitted with bradycardia requiring a dopamine drip and regis on ckd and seen this morning. pt feels better. no complaints. waiting for AICD placement this morning. no chest pain or sob. Objective Date Time Temp Pulse Resp B/P Pulse Ox O2 Delivery O2 Flow Rate FiO2 03/12/16 12:00 Room Air 03/12/16 11:44 36.7 99 16 88/52 99 Room Air 03/12/16 11:14 Nasal Cannula 03/12/16 10:59 99 24 119/49 99 Room Air 03/12/16 10:35 100 19 97/65 100 Room Air 03/12/16 10:14 104 20 115/73 94 Room Air 03/12/16 09:59 96 18 119/74 94 Room Air 03/12/16 09:45 Room Air 03/12/16 09:44 36.7 100 15 100/71 93 Room Air 03/12/16 09:30 95 16 128/76 98 Room Air 03/12/16 09:15 95 16 123/80 98 Room Air 03/12/16 06:59 73 18 127/47 94 Room Air 03/12/16 05:59 75 17 134/49 Room Air 03/12/16 05:27 58 17 142/52 92 Room Air 03/12/16 04:59 80 18 170/64 95 Room Air 03/12/16 04:09 95 Room Air 2.0 03/12/16 03:59 53 16 147/54 93 Room Air 03/12/16 03:00 55 19 121/75 93 Room Air 03/12/16 02:00 57 20 134/48 95 Room Air 03/12/16 01:00 39 18 123/51 94 Room Air 03/12/16 00:11 95 Room Air 2.0 03/11/16 23:59 54 22 122/64 91 Room Air 03/11/16 22:59 66 20 137/57 94 Room Air 03/11/16 21:59 40 26 127/48 93 Room Air 03/11/16 21:00 70 23 124/58 Room Air 03/11/16 20:03 53 15 105/42 93 Room Air 03/11/16 20:03 95 Room Air 2.0 03/11/16 19:00 36.7 44 24 91/50 96 Room Air 03/11/16 17:59 37 27 123/51 96 03/11/16 17:00 44 18 96 03/11/16 16:59 51 18 119/52 95 03/11/16 16:59 51 18 119/52 95 03/11/16 16:30 51 19 95 03/11/16 16:00 36.5 40 20 104/44 95 03/11/16 16:00 40 20 104/44 95 03/11/16 15:30 55 21 95 03/11/16 15:08 98 Room Air 03/11/16 15:00 58 24 95 03/11/16 15:00 58 24 95 03/11/16 14:59 61 20 134/52 93 03/11/16 14:59 61 20 134/52 93 03/11/16 14:30 39 22 96 03/11/16 14:00 40 22 96 03/11/16 13:59 48 19 111/48 92 03/11/16 13:59 48 19 111/48 92 03/11/16 13:30 40 21 93 03/11/16 13:00 39 21 90 03/11/16 13:00 39 21 90 Physical Exam: General-aaox3 Eyes-no sceral icterus ENT-mmm Neck-supple Lungs-cta Heart-irregular Abdomen-bs+ s/nt/nd Extremities-no c/c/e Neuro-nonfocal Current Inpatient Medications Medications (Trade) Dose Ordered Sig/Quoc Route Start Time Stop Time Status Last Admin Dose Admin Nitroglycerin (Nitrostat Tab) 0.4 mg UD PRN SL 03/08/16 17:00 04/07/16 16:59 Glucose (Glucose 40% Gel) 15-30 GRAMS 15 GRAMS... UD PRN PO 03/08/16 17:15 04/07/16 17:14 Glucose (Glucose Chew Tab) 4-8 Tablets 4 Tabl... UD PRN PO 03/08/16 17:15 04/07/16 17:14 Dextrose (Dextrose 50% 50ML Syringe) 25-50ML OF 50% DW IV FOR... UD PRN IV 03/08/16 17:15 04/07/16 17:14 Glucagon (Glucagon Inj) 1 mg UD PRN SQ 03/08/16 17:15 04/07/16 17:14 Miscellaneous Information (Consult Glycemic Management Pharmacy) 1 ea UD PRN N/A 03/08/16 19:45 04/07/16 19:44 Atorvastatin Calcium (Lipitor Tab) 10 mg DAILY PO 03/09/16 09:00 04/08/16 08:59 03/12/16 10:02 10 MG Calcitriol (Rocaltrol Cap) 0.25 mcg DAILY PO 03/09/16 09:00 04/08/16 08:59 03/12/16 10:02 0.25 MCG Clopidogrel Bisulfate (plAVix TAB) 75 mg DAILY PO 03/09/16 09:00 04/08/16 08:59 03/12/16 11:37 75 MG Fluticasone Propionate (Flonase Nasal [place]) 2 sprays DAILY RICHA 03/09/16 09:00 04/08/16 08:59 03/12/16 10:03 2 SPRAYS Levalbuterol (Xopenex Hfa Inhaler) 2 puffs Q4H PRN INH 03/08/16 17:30 04/07/16 17:29 Multivitamins/ Minerals (Multivitamin W/ Minerals Tab) 1 tab DAILY PO 03/09/16 09:00 04/08/16 08:59 03/12/16 10:02 1 TAB Sertraline HCl (Zoloft Tab) 25 mg DAILY PO 03/09/16 09:00 04/08/16 08:59 03/12/16 10:02 25 MG Tamsulosin HCl (Flomax Cap) 0.4 mg DAILY PO 03/09/16 09:00 04/08/16 08:59 03/12/16 10:02 0.4 MG Miscellaneous Information (Order Awaiting Action) 1 ea QS N/A 03/08/16 19:45 04/07/16 19:44 Amylase/Lipase/ Protease (Pancreaze (Lipase 10,500U) Cap) 2 cap TIDM PO 03/09/16 07:15 04/08/16 07:29 03/12/16 10:02 2 CAP Amylase/Lipase/ Protease (Pancreaze (Lipase 10,500U) Cap) 1-2 CAPS WITH SNACKS UD PRN PO 03/08/16 19:45 04/07/16 19:44 Docusate Sodium (coLACE CAP) 100 mg BID PO 03/10/16 18:00 1/9/17 17:59 03/11/16 21:00 100 MG Polyethylene (Miralax Powder Packet) 17 gm HS PO 03/10/16 18:00 04/09/16 17:59 03/11/16 21:04 17 GM Polyethylene (Miralax Powder Packet) 17 gm Q6H PRN PO 03/10/16 21:15 04/09/16 21:14 Insulin Aspart (novoLOG ASPART) SLIDING SCALE G... Q6 SC 03/12/16 07:15 04/11/16 07:14 03/12/16 10:08 7 UNITS Pantoprazole Sodium (Protonix Tab) 40 mg QAM PO 03/12/16 09:00 04/11/16 08:59 03/12/16 10:02 40 MG Carvedilol (Coreg Tab) 6.25 mg BID PO 03/12/16 21:00 04/11/16 20:59 03/12/16 11:40 6.25 MG Warfarin Sodium (Coumadin Tab) 3 mg TODAY@1600 ONCE PO 03/12/16 16:00 03/12/16 16:01 Acetaminophen/ Codeine Phosphate 1 tab for pain scale 4-6 2 t... Q4H PRN PO 03/12/16 09:30 04/11/16 09:29 03/12/16 10:05 2 TAB Cefazolin Sodium/ Dextrose (Ancef Iv/D5 50ml) 60 ml @ 100 mls/hr Q8H IV 03/12/16 16:00 03/13/16 15:59 Acetaminophen (Tylenol Tab) 650 mg Q4H PRN PO 03/12/16 09:30 04/11/16 09:29 Insulin Glargine (Lantus Solostar Pen) 10 unit BID SC 03/12/16 21:00 04/11/16 20:59 Last 24 Hours Test 03/11/16 16:30 03/11/16 18:05 03/11/16 20:25 03/12/16 05:54 Bedside Glucose 213 mg/dl 197 mg/dl Prothrombin Time 24.8 SECONDS 16.7 SECONDS Prothromb Time International Ratio 2.2 1.5 White Blood Count 9.50 K/uL Red Blood Count 4.27 M/uL Hemoglobin 13.0 g/dL Hematocrit 38.0 % Mean Corpuscular Volume 89.0 fL Mean Corpuscular Hemoglobin 30.4 pg Mean Corpuscular Hemoglobin Concent 34.2 g/dl Platelet Count 160 K/uL Mean Platelet Volume 10.3 fL Neutrophils (%) (Auto) 70.0 % Lymphocytes (%) (Auto) 18.0 % Monocytes (%) (Auto) 7.9 % Eosinophils (%) (Auto) 3.6 % Basophils (%) (Auto) 0.1 % Neutrophils # (Auto) 6.65 K/uL Lymphocytes # (Auto) 1.71 K/uL Monocytes # (Auto) 0.75 K/uL Eosinophils # (Auto) 0.34 K/uL Basophils # (Auto) 0.01 K/uL RDW Standard Deviation 55.3 fL RDW Coefficient of Variation 16.9 % Immature Granulocyte % (Auto) 0.4 % Immature Granulocyte # (Auto) 0.04 K/uL Sodium Level 145 mmol/L Potassium Level 4.5 mmol/L Chloride Level 114 mmol/L Carbon Dioxide Level 23 mmol/L Anion Gap 8.0 mmol/L Blood Urea Nitrogen 53 mg/dl Creatinine 2.00 mg/dl Est Creatinine Clear Calc Drug Dose 29.9 ml/min Estimated GFR () 35.2 Estimated GFR (Non- 30.4 BUN/Creatinine Ratio 26.4 Random Glucose 195 mg/dl Calcium Level 8.5 mg/dl Magnesium Level 2.6 mg/dl Test 03/12/16 09:59 03/12/16 12:20 Bedside Glucose 191 mg/dl Hemoglobin 12.6 g/dL Hematocrit 37.4 % Prothrombin Time 15.3 SECONDS Prothromb Time International Ratio 1.4 Assessment & Plan cue-[id number]-likely had element of atn with poor perfusion to kidneys secondary to hypotension and bradycardia. pulse is better now and for AICD this morning. creatinine peaked at 2.7 and now at 2. follows with Dr[address] Barrientos in [place]. no role for dialysis at this time. creatinine stable. volume status is acceptable. electrolytes are good other than hypermagnesemia and recieving no magnesium at this time. monitor. no changes.
--- NOTE | 2016-03-12 13:02 | Cardiology Progress Note ---
Cardiology Progress Note Patient assessed per request of nursing. Concern of fullness at incision site for AICD/ small amount of blood on bandage which as since been changed. Patient asymptomatic lying at 20 degrees, supine. Mild fullness around device perhaps mild / small hematoma, but incision looks stable. Hgb, and INR stable. Last Resulted 03/12/16 05:54 Red Blood Count 4.27, Mean Corpuscular Volume 89.0, Mean Corpuscular Hemoglobin 30.4, Mean Corpuscular Hemoglobin Concent 34.2, Mean Platelet Volume 10.3, Neutrophils (%) (Auto) 70.0, Lymphocytes (%) (Auto) 18.0, Monocytes (%) (Auto) 7.9, Eosinophils (%) (Auto) 3.6, Basophils (%) (Auto) 0.1, Neutrophils # (Auto) 6.65, Lymphocytes # (Auto) 1.71, Monocytes # (Auto) 0.75, Eosinophils # (Auto) 0.34, Basophils # (Auto) 0.01 03/12/16 12:20 Last Resulted 03/12/16 05:54 Past 24 Hours Test 03/11/16 18:05 03/12/16 05:54 03/12/16 12:20 Range/Units Prothromb Time International Ratio 2.2 H 1.5 H 1.4 H 0.9-1.1 Prothrombin Time 24.8 H 16.7 H 15.3 H 9.0-12.0 SECONDS Impression: Perhaps small/ mild pocket hematoma BP , site, Hgb and INR stable. Will hold today's dose of coumadin. Check INR in am. Need not minimize time off coumadin as given chronic AF, h/o Cerebrovascular disease, and low LVEF he at high risk of stroke. No bridge given bleeding risk. Will place pressure bandage, and monitor. INR and CBC ordered for am. Mr Ohara of ICU discussed case with Dr Carrington who in addition to above recommended we sit pt up so allow better visualization and gravity. Franky Morales, DO
--- NOTE | 2016-03-12 13:11 | CRITICAL CARE PROGRESS NOTE ---
DATE: 03/12/2016 GENERAL INFORMATION: This is an 80-year-old gentleman with a history of atrial fibrillation, nonischemic cardiomyopathy, coronary artery disease, chronic kidney disease, diabetes and hypertension who presented to the hospital and was admitted on March 08 secondary to syncope. He was found to have sick sinus syndrome and symptomatic bradycardia with a supratherapeutic INR. He required transcutaneous pacing, which was eventually stopped and he was also placed on dopamine. A central line was placed on arrival to the intensive care unit as well. His Coumadin was held and he underwent biventricular pacemaker placement earlier today. His care was discussed in detail on multidisciplinary rounds, this morning. He has no specific complaints. He denies shortness of breath or chest pain. PHYSICAL EXAMINATION: VITAL SIGNS: Maximum temperature 36.7, heart rate 39-104, respiratory rate 16-24, blood pressure 88-115/52-73, oxygen saturation 99% on room air. A 24-hour fluid balance minus 9 mL. GENERAL: He is awake, alert and in no acute distress. CHEST: Lungs are clear to auscultation bilaterally. The left chest has a dressing just below the clavicle which has a small amount of blood seeping through. It is firm surrounding the dressing and mildly tender to palpation. It is asymmetric with respect to the edema on that side of the chest compared to the right side. HEART: Irregular. No murmurs. ABDOMEN: Soft, nondistended, nontender. EXTREMITIES: Warm. No edema. LABORATORY DATA: White blood cell count 9.5, hemoglobin 13, hematocrit 38.9, platelets 160. INR 1.5, PT 16.7. Sodium 145, potassium 4.5, chloride 114, CO2 23, BUN 53, creatinine 2.0, blood sugar 191, magnesium 2.6. MEDICATIONS: Tylenol with codeine, pancrease, Lipitor, calcitriol, Coreg, cefazolin, Plavix, Colace, Flonase, NovoLog sliding scale, Lantus, Xopenex, multivitamin, nitroglycerin, Protonix, MiraLax, Zoloft, tamsulosin and Coumadin. MICROBIOLOGY: Blood cultures March 08 - no growth to date. IMPRESSION: 1. Status post biventricular pacemaker placement secondary to sick sinus syndrome. I am concerned he may be having some bleeding into the pocket. 2. History of atrial fibrillation and coronary artery disease. 3. History of nonischemic cardiomyopathy. 4. Acute kidney injury on chronic kidney disease, improved. 5. History of hypertension, presently his blood pressure is soft, hopefully this is not secondary to volume loss from bleeding. His dopamine has been discontinued after his procedure this morning. 6. Diabetes mellitus, now on Lantus. 7. History of cerebrovascular accident. 8. History of pancreatic cancer status post Whipple. PLAN: 1. I have ordered serial blood counts throughout the day today and I am also repeating coags. The cardiology service has been paged. 2. The triple-lumen catheter has been discontinued. 3. Hold carvedilol for now. 4. Continue to hold Coumadin for the time being. He received Plavix today. 5. Continue to follow the creatinine. I do not think he needs additional fluids at this point. 6. I have ordered physical therapy. 7. Continue Protonix for GI prophylaxis. 8. He has SCDs in place. 9. Hold transfer for the time being. [facility]
--- NOTE | 2016-03-12 14:13 | DIAGNOSTIC IMAGING REPORT ---
CHEST ONE VIEW PORTABLE CLINICAL HISTORY: Postop pacemaker placement. Trauma. COMPARISON STUDY: 03/09/2016 FINDINGS: The heart is mildly enlarged. There is a left subclavian pacemaker/defibrillator present. There is no focal pulmonary consolidation. There is no failure. There is no pneumothorax. There are bibasal atelectatic changes.[ IMPRESSION: Mild bibasilar atelectasis. No evidence of acute parenchymal consolidation. No evidence of pneumothorax. Electronically signed by: Mohsen Dobbs M.D. 03/12/2016 2:12 PM
[2016-03-12] MEDS ORDERED: NURSING VERBAL MED ORDER ONE (14:45)
[2016-03-12] MEDS: CEFAZOLIN IV 2,000 MG in DEXTROSE 5% 50ML 50 ML IV SCH (15:49)
[2016-03-12] MEDS ORDERED: WARFARIN SOD 3 MG TAB PO ONE (16:00)
[2016-03-12 16:39] LABS: HEMATOCRIT 37.4 % (42-52)
--- NOTE | 2016-03-12 16:59 | Progress Note ---
Internal Med Progress Note Date of Service: Mar 12, 2016. Provider Documentation: SUBJECTIVE: s/p ICD today had some bleeding at the site which seems controlled now had some pain at site earlier but resolved now denies chest pain or sob cough once in a while afebrile hemodynamics stable OBJECTIVE: Vital Signs-as noted below Exam: General-alert and oriented. Not in distress ENT-Hard of hearing Neck-no neck masses Lungs-cta b/l no wheezing or crackles Heart-S1 and S2 heard irregular rate and rhythm, no murmurs s/p ICD site is bandaged Abdomen-Soft bowels sounds present non tender no distension Extremities-no edema no erythema Neuro-alert and awake moves extremities Lab data as noted below. 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 s/p ICD with biventricular pace maker today .HAd some bleeding at site post procdure. Coumadin o n hold. lose monitro in ICU today. Possible d/c in 1-2 days if stable.PT/OT. FALL, PRESYNCOPE LIKELY SECONDARY TO: SYMPTOMATIC BRADYCARDIA Sick sinus syndrome tsh is normal hx of cardiomyopathy wth EF 30-35% Required low dose dopamine drip has introducer sheath incase temporary pacing required which is removed today s/p ICD today- had some bleeding post procedure-question of bleeding in to pocket- close monitor. Coumadin on hold NAUSEA, POOR APPETITE history of hiatal hernia per patient On Protonix Will monitor and GI consult if persistent No complaints . stable HISTORY OF CAD mild elevation of troponin mostly from bradycardia on , plavix restarted coreg holding Entresto for now asymptomatic NON ISCHEMIC CARDIOMYOPATHY will monitor for volume overload holding Torsemide for now A FIB, ON COUMADIN INR was 5.7 Coumadin held received vitamin k for procedure inr 1.4 today. restart Coumadin as per cardiology will f/u inr DM 2 Holding Novolog mix currently on ISS for now 197/195/191/211 Pharmacy consulted will monitor. HYPERTENSION hypotensive on presentation was on dopamine drip currently off dopamine drip Coreg restarted Holding Entresto, Torsemide for now Arf on CKD 3 baseline around 1.5, but increasing to 2-2.2 the past few months presented with cr 2.7 received gentle fluids cr .2.0 today stopped fluids diuretics on hold nephrology consulted f/u labs HISTORY OF CVA on Coumadin, Plavix Coumadin on hold COPD not in exacerbation HISTORY OF PANCREATIC CANCER s/p Whipple procedure on creON DVT prophylaxis inr 1.4 scds Code status Full code as per patient Disposition close monitor in icu pt/ot Vital Signs: Date Time Temp Pulse Resp B/P Pulse Ox O2 Delivery O2 Flow Rate FiO2 03/12/16 18:56 108 18 89/93 99 Room Air 03/12/16 16:00 100 18 92/60 95 Room Air 03/12/16 16:00 Room Air 03/12/16 13:59 93 21 90/59 99 Room Air 03/12/16 13:30 83 15 107/50 97 Room Air 03/12/16 12:59 98 26 83/57 99 Room Air 03/12/16 12:44 88 16 88/58 96 Room Air 03/12/16 12:39 96 15 88/64 94 Room Air 03/12/16 12:14 86 15 84/63 97 Room Air 03/12/16 12:00 Room Air 03/12/16 11:44 36.7 99 16 88/52 99 Room Air 03/12/16 11:14 Nasal Cannula 03/12/16 10:59 99 24 119/49 99 Room Air 03/12/16 10:35 100 19 97/65 100 Room Air 03/12/16 10:14 104 20 115/73 94 Room Air 03/12/16 09:59 96 18 119/74 94 Room Air 03/12/16 09:45 Room Air 03/12/16 09:44 36.7 100 15 100/71 93 Room Air 03/12/16 09:30 95 16 128/76 98 Room Air 03/12/16 09:15 95 16 123/80 98 Room Air 03/12/16 06:59 73 18 127/47 94 Room Air 03/12/16 05:59 75 17 134/49 Room Air 03/12/16 05:27 58 17 142/52 92 Room Air 03/12/16 04:59 80 18 170/64 95 Room Air 03/12/16 04:09 95 Room Air 2.0 03/12/16 03:59 53 16 147/54 93 Room Air 03/12/16 03:00 55 19 121/75 93 Room Air 03/12/16 02:00 57 20 134/48 95 Room Air 03/12/16 01:00 39 18 123/51 94 Room Air 03/12/16 00:11 95 Room Air 2.0 03/11/16 23:59 54 22 122/64 91 Room Air 03/11/16 22:59 66 20 137/57 94 Room Air 03/11/16 21:59 40 26 127/48 93 Room Air 03/11/16 21:00 70 23 124/58 Room Air 03/11/16 20:03 53 15 105/42 93 Room Air 03/11/16 20:03 95 Room Air 2.0 Lab Results: Results Past 24 Hours Test 03/11/16 20:25 03/12/16 05:54 03/12/16 09:59 03/12/16 12:20 Range/Units Bedside Glucose 197 191 70-99 mg/dl White Blood Count 9.50 4.8-10.8 K/uL Red Blood Count 4.27 4.7-6.1 M/uL Hemoglobin 13.0 12.6 14.0-18.0 g/dL Hematocrit 38.0 37.4 42-52 % Mean Corpuscular Volume 89.0 80-100 fL Mean Corpuscular Hemoglobin 30.4 25-34 pg Mean Corpuscular Hemoglobin Concent 34.2 32-36 g/dl Platelet Count 160 130-400 K/uL Mean Platelet Volume 10.3 7.4-10.4 fL Neutrophils (%) (Auto) 70.0 % Lymphocytes (%) (Auto) 18.0 % Monocytes (%) (Auto) 7.9 % Eosinophils (%) (Auto) 3.6 % Basophils (%) (Auto) 0.1 % Neutrophils # (Auto) 6.65 1.4-6.5 K/uL Lymphocytes # (Auto) 1.71 1.2-3.4 K/uL Monocytes # (Auto) 0.75 0.11-0.59 K/uL Eosinophils # (Auto) 0.34 0-0.5 K/uL Basophils # (Auto) 0.01 0-0.2 K/uL RDW Standard Deviation 55.3 36.4-46.3 fL RDW Coefficient of Variation 16.9 11.5-14.5 % Immature Granulocyte % (Auto) 0.4 % Immature Granulocyte # (Auto) 0.04 0.00-0.02 K/uL Prothrombin Time 16.7 15.3 9.0-12.0 SECONDS Prothromb Time International Ratio 1.5 1.4 0.9-1.1 Sodium Level 145 136-145 mmol/L Potassium Level 4.5 3.5-5.1 mmol/L Chloride Level 114 98-107 mmol/L Carbon Dioxide Level 23 21-32 mmol/L Anion Gap 8.0 3-11 mmol/L Blood Urea Nitrogen 53 7-18 mg/dl Creatinine 2.00 0.60-1.40 mg/dl Est Creatinine Clear Calc Drug Dose 29.9 ml/min Estimated GFR () 35.2 Estimated GFR (Non- 30.4 BUN/Creatinine Ratio 26.4 10-20 Random Glucose 195 70-99 mg/dl Calcium Level 8.5 8.5-10.1 mg/dl Magnesium Level 2.6 1.8-2.4 mg/dl Test 03/12/16 15:51 Range/Units Hemoglobin 12.7 14.0-18.0 g/dL Hematocrit 37.4 42-52 % Bedside Glucose 211 70-99 mg/dl Microbiology Results 03/12/16 MRSA DNA Surveillance Screen - Final, Complete Specimen Negative for MRSA by DNA Probe
[2016-03-12] MEDS: POLYETHYLENE (MIRALAX) 17 GM PACK PO SCH (20:49)
[2016-03-12 22:16] LABS: HEMATOCRIT 38.1 % (42-52)
[2016-03-13] VITALS (22 sets, daily range): BP systolic 75–118; BP diastolic 45–77; PULSE 66–114; TEMP 36.6–37.1; O2SAT 94–100
[2016-03-13] MEDS ORDERED: SODIUM CHLORIDE 0.9% 250ML 250 ML IV ONE ×2 (03:00)
[2016-03-13 06:42] LABS: BASO % 0.1 %; BASO ABS # 0.01 K/uL (0-0.2); COMPLETE YES; EOS % 3.9 %; HEMATOCRIT 37.6 % (42-52); IG% 0.3 %; LYMPH % 15.6 %; LYMPH ABS # 1.85 K/uL (1.2-3.4); MEAN CELL VOLUME 90.4 fL (80-100); MEAN CORPUSCULAR HGB CONC 33.2 g/dl (32-36); MEAN PLATELET VOLUME 9.9 fL (7.4-10.4); MONO % 7.3 %; NEUT % 72.8 %; PLATELET COUNT 131 K/uL (130-400); RED BLOOD COUNT 4.16 M/uL (4.7-6.1); WHITE BLOOD COUNT 11.85 K/uL (4.8-10.8)
[2016-03-13] MEDS: INSULIN ASPART 100 UNITS/ML 3 ML PEN SC SCH ×4 (06:42→21:11)
[2016-03-13 06:52] LABS: INR 1.2 (0.9-1.1); PROTHROMBIN TIME (PATIENT) 13.3 SECONDS (9.0-12.0)
[2016-03-13 07:16] LABS: BUN/CREATININE RATIO 19.3 (10-20); CALCIUM 8.7 mg/dl (8.5-10.1); CREATININE 2.9 mg/dl (0.60-1.40); MAGNESIUM 2.4 mg/dl (1.8-2.4)
[2016-03-13] MEDS: PANCREAZE (LIPASE 10,500U) CAP PO SCH ×3 (07:33→16:30)
--- NOTE | 2016-03-13 07:46 | DIAGNOSTIC IMAGING REPORT ---
CHEST 2 VIEWS ROUTINE CLINICAL HISTORY: Pacemaker insertion. COMPARISON STUDY: Chest radiograph March 12, 2016 FINDINGS: No pneumothorax is identified status post placement of a left subclavian biventricular pacer/AICD. Lead tips project over the right ventricle as well as a second lead which likely extends through the coronary sinus. Moderate cardiomegaly is unchanged. There is no evidence of pulmonary edema. Bibasilar opacities favor atelectasis. IMPRESSION: 1. No pneumothorax following placement of a left subclavian biventricular pacer/AICD. 2. No evidence of pulmonary edema. 3. Bibasilar opacities which favor atelectasis. Electronically signed by: Torsten Dorsey M.D. 03/13/2016 7:45 AM
[2016-03-13] MEDS ORDERED: DOPamine 400MG / D5W 400 MG IV PRN (08:15)
[2016-03-13] MEDS ORDERED: ALBUMIN HUMAN 25% 12.5 GM/50 ML VIAL IV SCH (08:30)
[2016-03-13] MEDS: CEFAZOLIN IV 2,000 MG in DEXTROSE 5% 50ML 50 ML IV SCH ×3 (08:41)
[2016-03-13] MEDS: FLUTICASONE PROPIONATE NA SPR 16 GM BTL NAE SCH (08:41)
[2016-03-13] MEDS: DOCUSATE SODIUM 100 MG CAP PO SCH ×2 (08:42→21:08)
[2016-03-13] MEDS: PANTOprazole SOD 40 MG TAB PO SCH (08:42)
[2016-03-13] MEDS: CLOPIDOGREL BISULFATE 75 MG TAB PO SCH (08:42)
[2016-03-13] MEDS: ATORVASTATIN 10 MG TAB PO SCH (08:42)
[2016-03-13] MEDS: SERTRALINE HCL 50 MG TAB PO SCH (08:42)
[2016-03-13] MEDS: CALCITRIOL 0.25 MCG CAP PO SCH (08:43)
[2016-03-13] MEDS: CEROVITE ADV FORMULA TAB PO SCH (08:43)
[2016-03-13] MEDS: TAMSULOSIN HCL 0.4 MG CAP PO SCH (08:43)
--- NOTE | 2016-03-13 08:52 | Cardiology Follow-Up ---
Subjective General Date of Service: Mar 13, 2016. Chief Complaint: follow up syncope, cardiomyopathy, chronic AF Pt evaluation today including: conversation w/ patient, physical exam History of Present Illness The patient is a 80 year old male seen in cardiology follow up. Pt notes mild left shoulder discomfort (procedure side) , no pain at AICD pocket site. Pressure bandage removed-mild ecchymosis in the left axilla, no significant hematoma, incision intact. SBP low yesterday and overnight in the 80's, BUN and creatinine increased, decreased urine output. Telemetry and device check reveal AF with frequent PVCs. Limiting percentage of biV pacing. Allergies Coded Allergies: Lisinopril (Verified Allergy, Unknown, RASH, 06/24/15) Spironolactone (Verified Allergy, Unknown, unkn, 06/24/15) Zolpidem (Verified Adverse Reaction, Unknown, HALLUCINATIONS, 06/24/15) Social History Smoking Status: Former Smoker Hx Tobacco Use In Past Year?: No Hx Alcohol Use - Type And Amou: No Hx Substance Use - Type And Am: No Problem List Medical Problems: (1) Acute bronchitis Status: Acute (2) Chronic renal disease Status: Acute (3) Elevated troponin Status: Acute (4) Influenza Status: Acute (5) Systolic congestive heart failure Status: Acute Physical Exam Vital Signs Last Vital Signs Documentation Date Time Temp Pulse Resp B/P Pulse Ox O2 Delivery O2 Flow Rate FiO2 03/13/16 06:19 87 19 87/63 97 03/13/16 04:00 Room Air 03/13/16 03:59 36.6 03/12/16 04:09 2.0 Physical Exam Constitutional: General Apperance: heathly-appearing Level of Distress: mild distress Psychiatric: Mental Status: active & alert Head: normocephalic Eyes: EOM: EOMI ENMT: normal ENT inspection, hearing grossly normal Neck: supple, no masses Lungs: Respiratory effort: no dyspnea, good air movement Auscultation: breath sounds normal, no wheezing Cardiovascular: Heart Auscultation: no murmurs, no rubs, no gallops, irregular rate rhythm Peripheral Pulses: Bruits: none appreciated Abdomen: Bowel Sounds: normal Inspection & Palpation: soft, no tenderness, guarding & rebound, no masses Musculoskeletal: normal strength (5/5 throughout) Extremities: no edema Neurologic: Cranial Nerves: grossly intact Sensation: grossly intact Additional Comments: Pocket site as described in HPI. Assessment and Plan Assessment and Plan Impression: 80-year-old male with noted hypotension yesterday , last night and this am, now with JOSUÉ on baseline Stage IV CKD 1. Admitted with syncope, noted to have persistent bradycardia which required transient transcutaneous pacing and support with dopamine 2. History of chronic atrial fibrillation (also frequent PVCs) for which he is on chronic anticoagulation, history of past strokes 3. Chronic systolic heart failure, LVEF 30-35% 4. 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 Stage III chronic kidney disease 6. History of hyperkalemia 7. Underlying COPD Recommendations: CXR with no PTX. Question if patient is intravascularly volume depleted- elevated HR, elevated BUN/ CR, hypotension, decreased urine output. Start IVF NS at 75 mg/hour. Limited TTecho to rule out pericardial effusion, assess IVC size for estimation of CVP, RA pressure performed, no significant pericardial effusion. Moderate biventricular systolic dysfunction noted. Inferior vena cava diameter small, completely collapses with inspiration, consistent with low CVP, low RA pressure. Since no pericardial effusion, will resume coumadin. Instead of proceeding with coreg and BP support with dopamine, recommend holding coreg, and not restarting dopamine , and administer IVF. Start low dose oral amiodarone, fo purpose of PVC suppression, reduce ectopy, increase BiV pacing and hopefully improve cardiac output as a result. Pt has chronic AF, low dose amiodarone low is not likely to cause chemical cardioversion in setting of low INR, feel safe to start now. K, has trending up, will hold multivitamin. Entresto on hold due to low BP and JOSUÉ. DVT proph: coumadin restarted. Franky Morales, Laboratory Results Last 24 Hours Test 03/12/16 09:59 03/12/16 12:20 03/12/16 15:51 03/12/16 20:40 Bedside Glucose 191 mg/dl 211 mg/dl 84 mg/dl Hemoglobin 12.6 g/dL 12.7 g/dL Hematocrit 37.4 % 37.4 % Prothrombin Time 15.3 SECONDS Prothromb Time International Ratio 1.4 Test 03/12/16 22:07 03/13/16 00:35 03/13/16 06:18 03/13/16 06:30 Hemoglobin 12.9 g/dL 12.5 g/dL Hematocrit 38.1 % 37.6 % Lactic Acid Level 1.0 mmol/L Bedside Glucose 85 mg/dl White Blood Count 11.85 K/uL Red Blood Count 4.16 M/uL Mean Corpuscular Volume 90.4 fL Mean Corpuscular Hemoglobin 30.0 pg Mean Corpuscular Hemoglobin Concent 33.2 g/dl Platelet Count 131 K/uL Mean Platelet Volume 9.9 fL Neutrophils (%) (Auto) 72.8 % Lymphocytes (%) (Auto) 15.6 % Monocytes (%) (Auto) 7.3 % Eosinophils (%) (Auto) 3.9 % Basophils (%) (Auto) 0.1 % Neutrophils # (Auto) 8.62 K/uL Lymphocytes # (Auto) 1.85 K/uL Monocytes # (Auto) 0.87 K/uL Eosinophils # (Auto) 0.46 K/uL Basophils # (Auto) 0.01 K/uL RDW Standard Deviation 57.0 fL RDW Coefficient of Variation 17.1 % Immature Granulocyte % (Auto) 0.3 % Immature Granulocyte # (Auto) 0.04 K/uL Prothrombin Time 13.3 SECONDS Prothromb Time International Ratio 1.2 Sodium Level 143 mmol/L Potassium Level 5.0 mmol/L Chloride Level 111 mmol/L Carbon Dioxide Level 22 mmol/L Anion Gap 10.0 mmol/L Blood Urea Nitrogen 56 mg/dl Creatinine 2.90 mg/dl Est Creatinine Clear Calc Drug Dose 20.6 ml/min Estimated GFR () 22.5 Estimated GFR (Non- 19.4 BUN/Creatinine Ratio 19.3 Random Glucose 95 mg/dl Calcium Level 8.7 mg/dl Magnesium Level 2.4 mg/dl Test 03/13/16 08:04
[2016-03-13] MEDS: SODIUM CHLORIDE 0.9% 1000ML 1,000 ML IV SCH ×2 (08:53→21:14)
[2016-03-13] MEDS ORDERED: CARVEDILOL 3.125 MG TAB PO SCH (09:00)
--- NOTE | 2016-03-13 09:45 | Nephrology Progress Note ---
Nephrology Progress Note Date of Service: Mar 13, 2016. Subjective 80 yo male admitted with bradycardia requiring a dopamine drip and regis on ckd, creatinine eventually improved to 2 and then went for an AICD yesterday. did require about 10cc of contrast. pts bp was low yesterday and urination has trended down. creatinine up to 2.9 today. pt tender over insertion site. otherwise doing well. started on albumin and iv fluids. Objective Date Time Temp Pulse Resp B/P Pulse Ox O2 Delivery O2 Flow Rate FiO2 03/13/16 08:00 Room Air 03/13/16 08:00 36.9 107 16 95/58 99 Room Air 03/13/16 06:19 87 19 87/63 97 03/13/16 04:59 86 15 99/53 94 03/13/16 04:00 Room Air 03/13/16 03:59 36.6 93 17 94/52 94 Room Air 03/13/16 02:59 102 16 94/48 96 Room Air 03/13/16 02:47 73 19 75/61 96 Room Air 03/13/16 01:59 105 16 87/54 97 03/13/16 01:49 96 18 78/56 96 03/13/16 00:59 97 20 88/55 97 Room Air 03/13/16 00:01 Room Air 03/13/16 00:00 95 18 99/55 98 Room Air 03/12/16 23:40 36.6 96 18 79/51 96 Room Air 03/12/16 23:00 81 13 83/60 98 Room Air 03/12/16 22:00 36.8 104 20 104/72 97 Room Air 03/12/16 20:00 Room Air 03/12/16 20:00 36.5 97 20 92/60 98 Room Air 03/12/16 18:56 108 18 89/93 99 Room Air 03/12/16 16:00 100 18 92/60 95 Room Air 03/12/16 16:00 Room Air 03/12/16 13:59 93 21 90/59 99 Room Air 03/12/16 13:30 83 15 107/50 97 Room Air 03/12/16 12:59 98 26 83/57 99 Room Air 03/12/16 12:44 88 16 88/58 96 Room Air 03/12/16 12:39 96 15 88/64 94 Room Air 03/12/16 12:14 86 15 84/63 97 Room Air 03/12/16 12:00 Room Air 03/12/16 11:44 36.7 99 16 88/52 99 Room Air 03/12/16 11:14 Nasal Cannula 03/12/16 10:59 99 24 119/49 99 Room Air 03/12/16 10:35 100 19 97/65 100 Room Air 03/12/16 10:14 104 20 115/73 94 Room Air 03/12/16 09:59 96 18 119/74 94 Room Air 03/12/16 09:45 Room Air 03/12/16 09:44 36.7 100 15 100/71 93 Room Air Physical Exam: General-aaox3 Eyes-no sceral icterus ENT-mmm Neck-supple Lungs-clear Heart-irregular/tachy Abdomen-bs+ s/nt/nd Extremities-no c/c/e Neuro-nonfocal Current Inpatient Medications Medications (Trade) Dose Ordered Sig/Quoc Route Start Time Stop Time Status Last Admin Dose Admin Nitroglycerin (Nitrostat Tab) 0.4 mg UD PRN SL 03/08/16 17:00 04/07/16 16:59 Glucose (Glucose 40% Gel) 15-30 GRAMS 15 GRAMS... UD PRN PO 03/08/16 17:15 04/07/16 17:14 Glucose (Glucose Chew Tab) 4-8 Tablets 4 Tabl... UD PRN PO 03/08/16 17:15 04/07/16 17:14 Dextrose (Dextrose 50% 50ML Syringe) 25-50ML OF 50% DW IV FOR... UD PRN IV 03/08/16 17:15 04/07/16 17:14 Glucagon (Glucagon Inj) 1 mg UD PRN SQ 03/08/16 17:15 04/07/16 17:14 Miscellaneous Information (Consult Glycemic Management Pharmacy) 1 ea UD PRN N/A 03/08/16 19:45 04/07/16 19:44 Atorvastatin Calcium (Lipitor Tab) 10 mg DAILY PO 03/09/16 09:00 04/08/16 08:59 03/13/16 08:42 10 MG Calcitriol (Rocaltrol Cap) 0.25 mcg DAILY PO 03/09/16 09:00 04/08/16 08:59 03/13/16 08:43 0.25 MCG Clopidogrel Bisulfate (plAVix TAB) 75 mg DAILY PO 03/09/16 09:00 04/08/16 08:59 03/13/16 08:42 75 MG Fluticasone Propionate (Flonase Nasal Joffre) 2 sprays DAILY RICHA 03/09/16 09:00 04/08/16 08:59 03/13/16 08:41 2 SPRAYS Levalbuterol (Xopenex Hfa Inhaler) 2 puffs Q4H PRN INH 03/08/16 17:30 04/07/16 17:29 Sertraline HCl (Zoloft Tab) 25 mg DAILY PO 03/09/16 09:00 04/08/16 08:59 03/13/16 08:42 25 MG Tamsulosin HCl (Flomax Cap) 0.4 mg DAILY PO 03/09/16 09:00 04/08/16 08:59 03/13/16 08:43 0.4 MG Miscellaneous Information (Order Awaiting Action) 1 ea QS N/A 03/08/16 19:45 04/07/16 19:44 Amylase/Lipase/ Protease (Pancreaze (Lipase 10,500U) Cap) 2 cap TIDM PO 03/09/16 07:15 04/08/16 07:29 03/13/16 07:33 2 CAP Amylase/Lipase/ Protease (Pancreaze (Lipase 10,500U) Cap) 1-2 CAPS WITH SNACKS UD PRN PO 03/08/16 19:45 04/07/16 19:44 Docusate Sodium (coLACE CAP) 100 mg BID PO 03/10/16 18:00 04/09/16 17:59 03/13/16 08:42 100 MG Polyethylene (Miralax Powder Packet) 17 gm HS PO 03/10/16 18:00 04/09/16 17:59 03/12/16 20:49 17 GM Polyethylene (Miralax Powder Packet) 17 gm Q6H PRN PO 03/10/16 21:15 04/09/16 21:14 Pantoprazole Sodium (Protonix Tab) 40 mg QAM PO 03/12/16 09:00 04/11/16 08:59 03/13/16 08:42 40 MG Acetaminophen/ Codeine Phosphate 1 tab for pain scale 4-6 2 t... Q4H PRN PO 03/12/16 09:30 04/11/16 09:29 03/12/16 22:04 2 TAB Cefazolin Sodium/ Dextrose (Ancef Iv/D5 50ml) 60 ml @ 100 mls/hr Q8H IV 03/12/16 16:00 03/13/16 15:59 03/13/16 08:41 100 MLS/HR Acetaminophen (Tylenol Tab) 650 mg Q4H PRN PO 03/12/16 09:30 04/11/16 09:29 Insulin Glargine (Lantus Solostar Pen) 10 unit BID SC 03/12/16 21:00 04/11/16 20:59 Future Hold 03/12/16 20:47 5 UNIT Insulin Aspart SLIDING SCALE G... ACHS SC 03/12/16 16:00 04/11/16 15:59 03/12/16 16:43 6 UNITS Dopamine HCl/ Dextrose 0 ml @ 0 mls/hr Q0M PRN IV 03/13/16 08:15 04/12/16 08:14 Future Hold Sodium Chloride (Nss 1000ml) 1,000 ml @ 75 mls/hr [id number] IV 03/13/16 08:45 04/12/16 08:44 03/13/16 08:53 75 MLS/HR Warfarin Sodium (Coumadin Tab) 2.5 mg DAILY@16 PO 03/13/16 16:00 04/12/16 15:59 Amiodarone HCl (Cordarone Tab) 200 mg BID PO 03/13/16 09:00 04/12/16 08:59 Last 24 Hours Test 03/12/16 09:59 03/12/16 12:20 03/12/16 15:51 03/12/16 20:40 Bedside Glucose 191 mg/dl 211 mg/dl 84 mg/dl Hemoglobin 12.6 g/dL 12.7 g/dL Hematocrit 37.4 % 37.4 % Prothrombin Time 15.3 SECONDS Prothromb Time International Ratio 1.4 Test 03/12/16 22:07 03/13/16 00:35 03/13/16 06:18 03/13/16 06:30 Hemoglobin 12.9 g/dL 12.5 g/dL Hematocrit 38.1 % 37.6 % Lactic Acid Level 1.0 mmol/L Bedside Glucose 85 mg/dl White Blood Count 11.85 K/uL Red Blood Count 4.16 M/uL Mean Corpuscular Volume 90.4 fL Mean Corpuscular Hemoglobin 30.0 pg Mean Corpuscular Hemoglobin Concent 33.2 g/dl Platelet Count 131 K/uL Mean Platelet Volume 9.9 fL Neutrophils (%) (Auto) 72.8 % Lymphocytes (%) (Auto) 15.6 % Monocytes (%) (Auto) 7.3 % Eosinophils (%) (Auto) 3.9 % Basophils (%) (Auto) 0.1 % Neutrophils # (Auto) 8.62 K/uL Lymphocytes # (Auto) 1.85 K/uL Monocytes # (Auto) 0.87 K/uL Eosinophils # (Auto) 0.46 K/uL Basophils # (Auto) 0.01 K/uL RDW Standard Deviation 57.0 fL RDW Coefficient of Variation 17.1 % Immature Granulocyte % (Auto) 0.3 % Immature Granulocyte # (Auto) 0.04 K/uL Prothrombin Time 13.3 SECONDS Prothromb Time International Ratio 1.2 Sodium Level 143 mmol/L Potassium Level 5.0 mmol/L Chloride Level 111 mmol/L Carbon Dioxide Level 22 mmol/L Anion Gap 10.0 mmol/L Blood Urea Nitrogen 56 mg/dl Creatinine 2.90 mg/dl Est Creatinine Clear Calc Drug Dose 20.6 ml/min Estimated GFR () 22.5 Estimated GFR (Non- 19.4 BUN/Creatinine Ratio 19.3 Random Glucose 95 mg/dl Calcium Level 8.7 mg/dl Magnesium Level 2.4 mg/dl Test 03/13/16 08:33 Procalcitonin 0.10 ng/mL Date/Time Source Procedure Growth Status 03/12/16 15:15 Nasal MRSA DNA Surveillance Screen - Final Specimen Negative for MRSA by DNA Probe Complete Assessment & Plan [id number]-creatinine trending back up and may have element of volume depletion. hopefully creatinine will start to improve back down to 2 and urination increases. tolerating the fluids well. no role for dialysis. greatly appreciate cardiology and critical care help. continue iv fluids as tolerated and will follow creatinine trend. pts k also trending up and will make sure he is on a low k diet.
[2016-03-13] MEDS: AMIODARONE 200 MG TAB PO SCH ×2 (09:48→21:08)
[2016-03-13] MEDS: POLYETHYLENE (MIRALAX) 17 GM PACK PO PRN (10:48)
--- NOTE | 2016-03-13 12:56 | Pharmacy Progress Note ---
Glycemic Control: Progress Nt Date of Service Mar 13, 2016. Scope Glycemic Pharmacist consulted by Dr Lo on 03/08/16 for glycemic control and to write orders per [facility] inpatient glycemic control protocol. Objective Accuchecks BSG (last 24hrs): Test 03/12/16 15:51 03/12/16 20:40 03/13/16 06:18 03/13/16 06:30 Bedside Glucose 211 mg/dl (70-99) 84 mg/dl (70-99) 85 mg/dl (70-99) Random Glucose 95 mg/dl (70-99) Test 03/13/16 10:48 Bedside Glucose 128 mg/dl (70-99) Laboratory Data (last 24hrs) Test 03/13/16 06:30 Anion Gap 10.0 mmol/L BUN/Creatinine Ratio 19.3 Blood Urea Nitrogen 56 mg/dl Creatinine 2.90 mg/dl Potassium Level 5.0 mmol/L Sodium Level 143 mmol/L White Blood Count 11.85 K/uL Red Blood Count 4.16 M/uL Hemoglobin 12.5 g/dL Hematocrit 37.6 % Mean Corpuscular Volume 90.4 fL Mean Corpuscular Hemoglobin 30.0 pg Mean Corpuscular Hemoglobin Concent 33.2 g/dl Platelet Count 131 K/uL Mean Platelet Volume 9.9 fL Neutrophils (%) (Auto) 72.8 % Lymphocytes (%) (Auto) 15.6 % Monocytes (%) (Auto) 7.3 % Eosinophils (%) (Auto) 3.9 % Basophils (%) (Auto) 0.1 % Neutrophils # (Auto) 8.62 K/uL Lymphocytes # (Auto) 1.85 K/uL Monocytes # (Auto) 0.87 K/uL Eosinophils # (Auto) 0.46 K/uL Basophils # (Auto) 0.01 K/uL HbA1c: Test 03/09/16 05:46 Hemoglobin A1c 8.2 %(4.5-5.6) H Recent Pertinent Medications Outpatient Anti-diabetic Regimen: * NovoLog Mix 70/30 * 28 units SQ in the AM * 12 units SQ in the evening with supper * A1c = 8.2 % 03/09/16 The patient is currently receiving: * Basal insulin: Lantus 10 units SQ BID - PM dose on 03/12 required 50% reduction * Correctional Insulin: NovoLog Correction per scale AC/HS Goal Range: Low 140 mg/dL - High 180 mg/dL Correction Factor: 30 mg/dL/unit * Prandial insulin: Per carb ratio of 1 unit per 15 grams CHO consumed Risk Factors for Insulin Resistance: * Pressors: dopamine IV - ON HOLD * Recent Procedure: 03/[address] Carrington * Diet: T2DM/AHA, 1500mL restriction, mechanical soft Assessment & Plan ASSESSMENT: * ADA & AACE recommend a goal blood sugar range 140-180 mg/dl for the majority of critically ill & non-critically ill patients. However, more stringent targets may be selected in individual cases. 03/09/16 * 80 y/o known type 2 diabetic who presents with near syncope and amanda cardia. * Hypoglycemia noted on admission * the patient has not been feeling well and has had decreased PO intake, however has continued his insulin administrations * BSGs remain below goal range despite minimal insulin administration * will continue to hold long acting Lantus at this time and only order correctional insulin * A1c- current * 8.2% may be slightly above goal for this patient, however would not aim much lower secondary to the Elements of Diabetes Care Scoring Scale and suggested glycemic targets based on this. 03/10/16 * Mr. Redd received 4 units of insulin yesterday with BSGs ranging from 85- 224 mg/dL in the past 24 hrs * His BSGs became elevated later yesterday, most likely due to po intake w/o prandial coverage * His fasting is acceptable this AM w/o basal insulin on board - will continue to hold basal at this time 03/11/16 * Mr. Redd's BSGs have finally started to increase and consistently stay high * This is most likely a result of resuming po intake and SCr improving * He received 9 units of insulin yesterday with fasting today of 199 mg/dL * Will plan to resume basal at this time but will be conservative with dosing and only give a one time dose as he will be NPO tomorrow for ICD placement 03/12/16 * Mr Redd received 24 units on 03/11 with BSGs ranging from 197-258mg/dL * likely he is somewhat basal insulin deficient since we were holding doses 2/ 2 hypoglycemia on admission - will resume basal insulin and likely see a trend downward of BSGs * NPO this AM for procedure with Dr. Carrington - likely diet will resume after this. * continue both basal and prandial insulins * slight tighten carb ratio at this time for better glycemic control 03/13/16 * After being NPO on 03/12 and receiving 15 units of basal insulin, BSGs are below goal range * hold AM Lantus * Decrease dose to Lantus 10 units SQ q PM * Carb ratio was made more aggressive yesterday, however dinner --> PM BSG went below goal range * loosen carb ratio back to 1:15 PLAN FOR INPATIENT GLYCEMIC CONTROL: * Continue to hold outpatient regimen at this time * mixed insulins are not typically used for inpatients secondary to changing PO status/difficulty to titrate * Hold Lantus this AM * Lantus 10 units SQ q PM * half dose if BSG is below 140mg/dL * Continue NovoLog AC and HS * Correction factor: 30mg/dL/unit * Carb ratio: 1 unit per 15 g of CHO consumed * Goal range: 140-180mg/dL per ADA recommendations * A1c - current * added to discharge instructions This patient may require additional counseling upon discharge as to avoid hypoglycemia in the future when PO intake varies. * Please note that the plan above was derived based on current level of insulin resistance and hospital stress. These recommendations are appropriate for inpatient admission only. Plan of care upon discharge will need to be reassessed to avoid potential outpatient hypo/hyperglycemia. Thank you.
--- NOTE | 2016-03-13 15:21 | ECHOCARDIOGRAM REPORT ---
*NOTICE TO RECEIVING DEMOCRAT AGENCY This information is strictly Confidential and protected under [place] law. [place] law prohibits you from making any further disclosure of this information unless further disclosure is expressly permitted by the written consent of the person to whom it pertains or is authorized by law. A general authorization for the release of medical or other information is not sufficient for this purpose. Hospital accepts no responsibility if the information is made available to any other person, INCLUDING THE PATIENT. Interpretation Summary * Name: CALLY LOONEY JR Study Date: 03/13/2016 09:43 AM BP: 87/63 mmHg * Patient Location: [facility] HR: 99 * : 1935 (M/d/yyyy) Gender: Male Height: 70 in * Age: 80 yrs Ethnicity: [place] Weight: 185 lb * Ordering Physician: Gustavo Morales DO, [facility] * Performed By: Yuliya Mike RCS * * Reason For Study: ASSESS FOR PERICARDIAL EFFUSION POST AICD / 2D / MV INFLOW / IVC * BSA: 2.0 m2 * -- Conclusions -- * A focused study was performed in the surgical ICU to evaluate for hypotension. * Limited focused views were obtained. * A trivial amount of pericardial fluid is noted adjacent to the lateral wall and the right ventricular free wall. * There is no pericardial effusion. * There are no echocardiographic indications of cardiac tamponade. * Normal inferior vena cava size and collapsability with sniff indicates a normal right atrial pressure of 3 mmHg Procedure Details * Limited views were obtained. Left Ventricle * There is mild concentric left ventricular hypertrophy. * Left ventricular systolic function is moderately reduced. * Ejection Fraction = 30-35%. * There is moderate global hypokinesis of the left ventricle. Right Ventricle * The right ventricle is grossly normal size. * The right ventricular systolic function is mildly reduced. Atria * The left atrium is moderately dilated. * The right atrium is moderately dilated. Aortic Valve * The aortic valve is trileaflet. Pericardium/Pleural * A trivial amount of pericardial fluide is noted adjacent to the the lateral wall and the right ventricular free wall. * There is no pericardial effusion. * There are no echocardiographic indications of cardiac tamponade. Great Vessels * Normal inferior vena cava size and collapsability with sniff indicates a normal right atrial pressure of 3 mmHg
[2016-03-13 16:27] LABS: MANUAL MICROSCOPIC REQUIRED? NO; REVIEW REQ? NO; URINE APPEARANCE CLEAR (CLEAR); URINE BILIRUBIN NEG (NEG); URINE COLOR YELLOW; URINE EPITHELIAL CELL AUTO >30 /lpf (0-5); URINE NITRITE NEG (NEG); URINE SPECIFIC GRAVITY 1.018 (1.000-1.030); UROBILINOGEN NEG (NEG); ZZUR CULT IF INDIC CLEAN CATCH NO
[2016-03-13 16:53] LABS: BUN/CREATININE RATIO 16.8 (10-20); CREATININE 3.3 mg/dl (0.60-1.40)
[2016-03-13] MEDS: WARFARIN SOD 2.5 MG TAB PO SCH (16:58)
[2016-03-13] MEDS ORDERED: SODIUM CHLORIDE 0.9% 500ML 500 ML IV ONE (17:00)
[2016-03-13] MEDS ORDERED: LIDOCAINE HCL 2% JELLY 30 ML TUBE EXT ONE (17:05)
--- NOTE | 2016-03-13 17:05 | CRITICAL CARE PROGRESS NOTE ---
DATE: 03/13/2016 DATE: 03/13/2016. GENERAL INFORMATION: The patient's care was discussed on multidisciplinary rounds this morning. His blood pressure was soft overnight in the 80s-90s and his urine output dropped off. He developed ecchymosis over his right chest and axilla as well. He is post-procedure day 1 from biventricular pacemaker placement. He has no specific complaints other than some chest discomfort around the pacemaker site. He denies shortness of breath and is having some difficulty urinating. His bladder scan does show 210 mL after voiding about 50 mL. He denies shortness of breath, abdominal pain, chest pain. He had a bowel movement last night. PHYSICAL EXAMINATION: VITAL SIGNS: Maximum temperature 36.9, heart rate 73-108, respiratory rate 18-27, blood pressure 83-118/50-60, oxygen saturation 95% on room air. 24-hour fluid balance is positive 91 mL. GENERAL: He is awake, alert and sitting in a chair. He can easily carry on a conversation. LUNGS: Clear to auscultation bilaterally. No rales, rhonchi or wheezes. HEART: Irregular. No murmurs. CHEST: With ecchymosis and induration around the pacemaker battery site. ABDOMINAL EXAMINATION: Limited due to his seated position but nontender and mildly distended, hypoactive bowel sounds. EXTREMITIES: Warm. No edema and adequate capillary refill. LABORATORY DATA: Sodium 143, potassium 5, chloride 111, CO2 22, BUN 56, creatinine 2.9. Procalcitonin 0.1. Blood sugar 128, magnesium 2.4, calcium 8.7. White blood cell count 11.85, hemoglobin 12.5, hematocrit 37.6, platelets 131. INR 1.2. Urinalysis and urine electrolytes are pending. MICROBIOLOGY: Blood cultures 03/08/2016 no growth to date. Portable chest x-ray from this morning was reviewed and shows no evidence of pulmonary edema. He has some bibasilar infiltrates consistent with atelectasis. MEDICATIONS AND INFUSIONS: Acetaminophen, Tylenol with codeine, amiodarone, pancrease, atorvastatin, Pro-Calcitriol, cefazolin, Plavix, Colace, Flonase, sliding scale insulin, Lantus, Xopenex, Protonix, nitroglycerin as needed, MiraLax, Zoloft, normal saline 75 mL per hour, tamsulosin, Coumadin. IMPRESSION AND PLAN: CARDIOVASCULAR: He is postop day 1 from his biventricular pacemaker placement. He has chronic atrial fibrillation and is having ectopy for which amiodarone was started earlier today by the cardiology service. His blood pressure has improved off the carvedilol which was held today. We will continue to hold Coreg and hope to suppress his tachycardia. Anticoagulation was also started today. He continues on Plavix. PULMONARY: No active issues. NEUROLOGY: He has pain at the pacemaker insertion site. I offered him some acetaminophen for that. RENAL: He has acute kidney injury which may be secondary to some volume depletion along with his cardiomyopathy. I should note that his ejection fraction today on echocardiogram was 30-35% and there was no pericardial effusion or tamponade. The nephrology service is seeing him and he received 12.5 grams of albumin this morning as well. Continue saline and consider small boluses should his pressure drop. Urine electrolytes are pending. Potassium a little bit elevated today and we are rechecking a PRP presently. INFECTIOUS DISEASE: White blood cell count is a bit elevated. This may be secondary to the hematoma. He had an episode of diaphoresis and chills last night. Low threshold for getting blood cultures and considering antibiotics. I do not see a definite source of infection presently. Urine culture is pending. GASTROINTESTINAL: No active issues. History of Whipple/pancreatic ca. I will change him to a renal diet if he is not already on one. HEMATOLOGY: He did have some bleeding and ecchymosis, but his blood counts have remained stable throughout yesterday into today. PROPHYLAXIS: He is on Protonix and is beginning his Coumadin. Many to Dr. Morales in his care of this patient. Please call me with any questions or concerns. Addendum: Cr continues to rise and he has PVR of 210cc. Attempts made by RN's at placement of barlow and Coude catheter without success. Has had ureteroscopy in the past and may have had difficulty with barlow placement in the past as well. Urology has been paged. MTDD
[2016-03-13 17:06] LABS: CALCIUM 8.7 mg/dl (8.5-10.1)
[2016-03-13] MEDS ORDERED: NURSING DECISION MEDICATION ORDER SCH (18:00)
--- NOTE | 2016-03-13 18:06 | Progress Note ---
Medicine Progress Note Date & Time of Visit: Mar 13, 2016 at 17:50. Subjective Patient seen at bedside. present. Patient denies chest pain or SOB. Notes a little lightheadedness when he first walked around his room with a walker that quickly resolved. Objective Last 8 Hrs Date Time Temp Pulse Resp B/P Pulse Ox O2 Delivery O2 Flow Rate FiO2 03/13/16 16:00 36.9 109 18 113/70 99 Room Air 03/13/16 16:00 Room Air 03/13/16 14:00 36.6 104 19 118/45 95 Room Air 03/13/16 13:59 106 19 118/45 95 Room Air 03/13/16 13:26 111 27 114/76 100 Room Air 03/13/16 13:23 111 22 94/64 98 Room Air 03/13/16 13:21 107 25 90/61 99 Room Air 03/13/16 12:43 36.7 105 18 83/54 98 Room Air 03/13/16 12:00 Room Air 03/13/16 10:00 108 18 112/77 96 Room Air Physical Exam: General-awake; alert; NAD Eyes-EOMI; no scleral icterus Neck-no stridor; trachea midline Lungs-CTA bilaterally; no wheezes/crackles Heart-tachycardic; irregularly irregular Abdomen-soft; NTND; nBS Extremities-2+ peripheral pulses; no c/c/e Neuro-no gross focal deficits Laboratory Results: Last 24 Hours Test 03/12/16 20:40 03/12/16 22:07 03/13/16 00:35 03/13/16 06:18 Bedside Glucose 84 mg/dl 85 mg/dl Hemoglobin 12.9 g/dL Hematocrit 38.1 % Lactic Acid Level 1.0 mmol/L Test 03/13/16 06:30 03/13/16 08:33 03/13/16 10:48 03/13/16 16:05 White Blood Count 11.85 K/uL Red Blood Count 4.16 M/uL Hemoglobin 12.5 g/dL Hematocrit 37.6 % Mean Corpuscular Volume 90.4 fL Mean Corpuscular Hemoglobin 30.0 pg Mean Corpuscular Hemoglobin Concent 33.2 g/dl Platelet Count 131 K/uL Mean Platelet Volume 9.9 fL Neutrophils (%) (Auto) 72.8 % Lymphocytes (%) (Auto) 15.6 % Monocytes (%) (Auto) 7.3 % Eosinophils (%) (Auto) 3.9 % Basophils (%) (Auto) 0.1 % Neutrophils # (Auto) 8.62 K/uL Lymphocytes # (Auto) 1.85 K/uL Monocytes # (Auto) 0.87 K/uL Eosinophils # (Auto) 0.46 K/uL Basophils # (Auto) 0.01 K/uL RDW Standard Deviation 57.0 fL RDW Coefficient of Variation 17.1 % Immature Granulocyte % (Auto) 0.3 % Immature Granulocyte # (Auto) 0.04 K/uL Prothrombin Time 13.3 SECONDS Prothromb Time International Ratio 1.2 Sodium Level 143 mmol/L Potassium Level 5.0 mmol/L Chloride Level 111 mmol/L Carbon Dioxide Level 22 mmol/L Anion Gap 10.0 mmol/L Blood Urea Nitrogen 56 mg/dl Creatinine 2.90 mg/dl Est Creatinine Clear Calc Drug Dose 20.6 ml/min Estimated GFR () 22.5 Estimated GFR (Non- 19.4 BUN/Creatinine Ratio 19.3 Random Glucose 95 mg/dl Calcium Level 8.7 mg/dl Magnesium Level 2.4 mg/dl Procalcitonin 0.10 ng/mL Bedside Glucose 128 mg/dl Urine Color YELLOW Urine Appearance CLEAR Urine pH 5.0 Urine Specific [place] 1.018 Urine Protein NEG Urine Glucose (UA) NEG Urine Ketones NEG Urine Occult Blood 2+ Urine Nitrite NEG Urine Bilirubin NEG Urine Urobilinogen NEG Urine Leukocyte Esterase SMALL Urine WBC (Auto) 5-10 /hpf Urine RBC (Auto) 5-10 /hpf Urine Hyaline Casts (Auto) 1-5 /lpf Urine Epithelial Cells (Auto) >30 /lpf Urine Bacteria (Auto) NEG Urine Osmolality 396 mOms/kg Urine Random Sodium 21 mEq/L Urine Random Chloride 22 mEq/L Test 03/13/16 16:24 Sodium Level 138 mmol/L Potassium Level 5.0 mmol/L Chloride Level 108 mmol/L Carbon Dioxide Level 20 mmol/L Anion Gap 10.0 mmol/L Blood Urea Nitrogen 55 mg/dl Creatinine 3.30 mg/dl Est Creatinine Clear Calc Drug Dose 18.1 ml/min Estimated GFR () 19.2 Estimated GFR (Non- 16.6 BUN/Creatinine Ratio 16.8 Random Glucose 192 mg/dl Calcium Level 8.7 mg/dl Assessment & Plan 80 year old male with history of CAD, A fib on Coumadin, 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 Found to have symptomatic bradycardia, sick sinus syndrome. s/p biventricular pacemaker 03/12/16. FALL, PRESYNCOPE - likely 2/2 symptomatic bradycardia - Cardiology consulted - initially required pressure support with dopamine drip - also had temporary pacemaker - s/p biventricular pacemaker 03/12/16 - started on amiodarone for ectopy HISTORY OF NON ISCHEMIC CARDIOMYOPATHY - continue atorvastatin, clopidogrel - holding carvedilol, torsemide and Entresto given low-normal pressures and JOSUÉ A FIB - Coumadin initially held for supratherapeutic INR - Coumadin restarted post-procedure - started on Amiodarone DM 2 - glycemic pharmacy consulted - continue insulin therapy Acute renal insufficiency (baseline CKD stage 3) - nephrology consulted - possibly related to volume depletion, cardiomyopathy - receiving albumin and IVF's - holding torsemide and Entresto HISTORY OF CVA - continue Coumadin, Plavix, Atorvastatin HISTORY OF PANCREATIC CANCER - s/p Whipple procedure - continue Pancreaze DVT prophylaxis - Coumadin Code status Full code as per patient Consultants: Critical care Nephrology Cardiology Procedures: CT head Interval right parietal infarct. No acute intracranial findings. CT c-spine Findings of severe degenerative change combined with extensive posterior laminectomy defects. No acute process is appreciated. TTE * The study was technically limited. * The left ventricle is moderately dilated. * Left ventricular systolic function is moderate to severely reduced. * Ejection Fraction = 30-35%. * The right ventricular systolic function is normal. * There is mild mitral regurgitation. Current Inpatient Medications: Current Inpatient Medications Medications (Trade) Dose Ordered Sig/Quoc Route Start Time Stop Time Status Last Admin Dose Admin Nitroglycerin (Nitrostat Tab) 0.4 mg UD PRN SL 03/08/16 17:00 04/07/16 16:59 Glucose (Glucose 40% Gel) 15-30 GRAMS 15 GRAMS... UD PRN PO 03/08/16 17:15 04/07/16 17:14 Glucose (Glucose Chew Tab) 4-8 Tablets 4 Tabl... UD PRN PO 03/08/16 17:15 04/07/16 17:14 Dextrose (Dextrose 50% 50ML Syringe) 25-50ML OF 50% DW IV FOR... UD PRN IV 03/08/16 17:15 04/07/16 17:14 Glucagon (Glucagon Inj) 1 mg UD PRN SQ 03/08/16 17:15 04/07/16 17:14 Miscellaneous Information (Consult Glycemic Management Pharmacy) 1 ea UD PRN N/A 03/08/16 19:45 04/07/16 19:44 Atorvastatin Calcium (Lipitor Tab) 10 mg DAILY PO 03/09/16 09:00 04/08/16 08:59 03/13/16 08:42 10 MG Calcitriol (Rocaltrol Cap) 0.25 mcg DAILY PO 03/09/16 09:00 04/08/16 08:59 03/13/16 08:43 0.25 MCG Clopidogrel Bisulfate (plAVix TAB) 75 mg DAILY PO 03/09/16 09:00 04/08/16 08:59 03/13/16 08:42 75 MG Fluticasone Propionate (Flonase Nasal [place]) 2 sprays DAILY RICHA 03/09/16 09:00 04/08/16 08:59 03/13/16 08:41 2 SPRAYS Levalbuterol (Xopenex Hfa Inhaler) 2 puffs Q4H PRN INH 03/08/16 17:30 04/07/16 17:29 Sertraline HCl (Zoloft Tab) 25 mg DAILY PO 03/09/16 09:00 04/08/16 08:59 03/13/16 08:42 25 MG Tamsulosin HCl (Flomax Cap) 0.4 mg DAILY PO 03/09/16 09:00 04/08/16 08:59 03/13/16 08:43 0.4 MG Miscellaneous Information (Order Awaiting Action) 1 ea QS N/A 03/08/16 19:45 04/07/16 19:44 Amylase/Lipase/ Protease (Pancreaze (Lipase 10,500U) Cap) 2 cap TIDM PO 03/09/16 07:15 04/08/16 07:29 03/13/16 16:30 2 CAP Amylase/Lipase/ Protease (Pancreaze (Lipase 10,500U) Cap) 1-2 CAPS WITH SNACKS UD PRN PO 03/08/16 19:45 04/07/16 19:44 Docusate Sodium (coLACE CAP) 100 mg BID PO 03/10/16 18:00 04/09/16 17:59 03/13/16 08:42 100 MG Polyethylene (Miralax Powder Packet) 17 gm HS PO 03/10/16 18:00 04/09/16 17:59 03/12/16 20:49 17 GM Polyethylene (Miralax Powder Packet) 17 gm Q6H PRN PO 03/10/16 21:15 04/09/16 21:14 03/13/16 10:48 17 GM Pantoprazole Sodium (Protonix Tab) 40 mg QAM PO 03/12/16 09:00 04/11/16 08:59 03/13/16 08:42 40 MG Acetaminophen/ Codeine Phosphate (Tylenol w/ Codeine #3 Tab) 1 tab for pain scale 4-6 2 t... Q4H PRN PO 03/12/16 09:30 04/11/16 09:29 03/12/16 22:04 2 TAB Acetaminophen (Tylenol Tab) 650 mg Q4H PRN PO 03/12/16 09:30 04/11/16 09:29 Insulin Aspart SLIDING SCALE G... ACHS SC 03/12/16 16:00 04/11/16 15:59 03/13/16 17:06 3 UNITS Dopamine HCl/ Dextrose 0 ml @ 0 mls/hr Q0M PRN IV 03/13/16 08:15 04/12/16 08:14 Future Hold Sodium Chloride (Nss 1000ml) 1,000 ml @ 75 mls/hr [id number] IV 03/13/16 08:45 04/12/16 08:44 03/13/16 08:53 75 MLS/HR Warfarin Sodium (Coumadin Tab) 2.5 mg DAILY@16 PO 03/13/16 16:00 04/12/16 15:59 03/13/16 16:58 2.5 MG Amiodarone HCl (Cordarone Tab) 200 mg BID PO 03/13/16 09:00 04/12/16 08:59 03/13/16 09:48 200 MG Insulin Glargine 10 unit 10 unit PM SC 03/13/16 21:00 04/12/16 20:59 Sodium Chloride (Nss 500ml) 500 ml @ 500 mls/hr Q1H ONCE IV 03/13/16 17:00 03/13/16 17:59 03/13/16 17:33 500 MLS/HR
[2016-03-13 20:04] LABS: INR 1.3 (0.9-1.1)
[2016-03-13] MEDS ORDERED: INSULIN GLARGINE SOLOSTAR 100 UNITS/ML 3 ML PEN SC SCH (21:00)
[2016-03-13] MEDS: POLYETHYLENE (MIRALAX) 17 GM PACK PO SCH (21:08)
[2016-03-13 23:20] LABS: BUN/CREATININE RATIO 18.2 (10-20); POTASSIUM 4.4 mmol/L (3.5-5.1)
[2016-03-14] VITALS (16 sets, daily range): BP systolic 74–113; BP diastolic 42–63; PULSE 76–113; TEMP 36.5–36.9; O2SAT 96–100
[2016-03-14 00:35] LABS: CALCIUM 7.5 mg/dl (8.5-10.1)
[2016-03-14 05:45] LABS: MEAN CELL VOLUME 89.9 fL (80-100); MEAN CORPUSCULAR HEMOGLOBIN 29.2 pg (25-34); MEAN CORPUSCULAR HGB CONC 32.4 g/dl (32-36); MEAN PLATELET VOLUME 10.2 fL (7.4-10.4); PLATELET COUNT 104 K/uL (130-400); RED BLOOD COUNT 3.67 M/uL (4.7-6.1); WHITE BLOOD COUNT 11.64 K/uL (4.8-10.8)
[2016-03-14 05:53] LABS: INR 1.3 (0.9-1.1); PROTHROMBIN TIME (PATIENT) 13.9 SECONDS (9.0-12.0)
[2016-03-14 06:24] LABS: CREATININE 3.3 mg/dl (0.60-1.40); MAGNESIUM 2.2 mg/dl (1.8-2.4); PHOSPHORUS 3.8 mg/dl (2.5-4.9); POTASSIUM 4.6 mmol/L (3.5-5.1)
[2016-03-14 06:50] LABS: CALCIUM 8.4 mg/dl (8.5-10.1)
[2016-03-14] MEDS: PANCREAZE (LIPASE 10,500U) CAP PO SCH ×3 (07:52→16:32)
[2016-03-14] MEDS: ACETAMINOPHEN/CODEINE 300/30MG TAB PO PRN ×2 (07:56→22:25)
[2016-03-14] MEDS ORDERED: ALUMINUM/MAGNESIUM/SIMETH (MAALOX MAX) 30 ML UDC PO ONE (08:00)
[2016-03-14] MEDS ORDERED: ALUMINUM/MAGNESIUM SUSP 30 ML UDC ONE (08:00)
[2016-03-14] MEDS: ONDANSETRON INJ 2 MG/ML 2 ML VIAL IV PRN (08:34)
--- NOTE | 2016-03-14 08:41 | Urology Consultation ---
History General Date of Service: Mar 14, 2016. Chief Complaint: incomplete bladder emptying Primary Care Physician: Jadiel Ferrer M.D. History of Present Illness 80 yo male admitted s/p fall. consulted for incomplete bladder emptying and inability to place barlow catheter. Failed attempt to place barlow by nursing staff. Pt with gross hematuria after placement. Per Dr. Galaviz, nursing staff to avoid placing the catheter while on Plavix as this could cause increased bleeding. PVR of 125ml today per RN. Cr noted to be 3.3. Hx of CKD. Baseline between 1.9-2.0 over the past year. Pt reports he is voiding well on his own currently. He is more concerned about his chest pain, SOB, and nausea he is c/o this morning. He reports he feels as though his "egg is caught in my throat." Laboratory Last 24 Hours Test 03/13/16 08:33 03/13/16 10:48 03/13/16 16:05 03/13/16 16:24 Procalcitonin 0.10 ng/mL Bedside Glucose 128 mg/dl Urine Color YELLOW Urine Appearance CLEAR Urine pH 5.0 Urine Specific [place] 1.018 Urine Protein NEG Urine Glucose (UA) NEG Urine Ketones NEG Urine Occult Blood 2+ Urine Nitrite NEG Urine Bilirubin NEG Urine Urobilinogen NEG Urine Leukocyte Esterase SMALL Urine WBC (Auto) 5-10 /hpf Urine RBC (Auto) 5-10 /hpf Urine Hyaline Casts (Auto) 1-5 /lpf Urine Epithelial Cells (Auto) >30 /lpf Urine Bacteria (Auto) NEG Urine Osmolality 396 mOms/kg Urine Random Sodium 21 mEq/L Urine Random Chloride 22 mEq/L Sodium Level 138 mmol/L Potassium Level 5.0 mmol/L Chloride Level 108 mmol/L Carbon Dioxide Level 20 mmol/L Anion Gap 10.0 mmol/L Blood Urea Nitrogen 55 mg/dl Creatinine 3.30 mg/dl Est Creatinine Clear Calc Drug Dose 18.1 ml/min Estimated GFR () 19.2 Estimated GFR (Non- 16.6 BUN/Creatinine Ratio 16.8 Random Glucose 192 mg/dl Calcium Level 8.7 mg/dl Test 03/13/16 19:40 03/13/16 21:06 03/13/16 22:18 03/14/16 05:35 Prothrombin Time 14.0 SECONDS 13.9 SECONDS Prothromb Time International Ratio 1.3 1.3 Bedside Glucose 200 mg/dl Sodium Level 141 mmol/L 139 mmol/L Potassium Level 4.4 mmol/L 4.6 mmol/L Chloride Level 113 mmol/L 111 mmol/L Carbon Dioxide Level 20 mmol/L 18 mmol/L Anion Gap 8.0 mmol/L 10.0 mmol/L Blood Urea Nitrogen 55 mg/dl 59 mg/dl Creatinine 3.00 mg/dl 3.30 mg/dl Est Creatinine Clear Calc Drug Dose 19.9 ml/min 18.1 ml/min Estimated GFR () 21.6 19.2 Estimated GFR (Non- 18.6 16.6 BUN/Creatinine Ratio 18.2 18.0 Random Glucose 153 mg/dl 98 mg/dl Calcium Level 7.5 mg/dl 8.4 mg/dl White Blood Count 11.64 K/uL Red Blood Count 3.67 M/uL Hemoglobin 10.7 g/dL Hematocrit 33.0 % Mean Corpuscular Volume 89.9 fL Mean Corpuscular Hemoglobin 29.2 pg Mean Corpuscular Hemoglobin Concent 32.4 g/dl RDW Standard Deviation 56.0 fL RDW Coefficient of Variation 16.9 % Platelet Count 104 K/uL Mean Platelet Volume 10.2 fL Phosphorus Level 3.8 mg/dl Magnesium Level 2.2 mg/dl Test 03/14/16 06:12 03/14/16 08:27 Bedside Glucose 100 mg/dl Problem List Medical Problems: (1) Acute bronchitis Status: Acute (2) Chronic renal disease Status: Acute (3) Elevated troponin Status: Acute (4) Influenza Status: Acute (5) Systolic congestive heart failure Status: Acute Past History A Fib, BPH, cancer (pancreatic), congestive heart failure, COPD, coronary artery disease, CVA/TIA/stroke (CVA), depression, diabetes, GERD, high cholesterol, other (CKD) Past Surgical History: angioplasty with stent (coronary artery), cardiac catheterization, cholecystectomy, spinal surgery (cervical spine), THR, other ( hernia repair) Family History Diabetes mellitus FH: cancer FH: gallbladder disease Heart disease Hypertension Kidney disease Lung disease Social History Hx Tobacco Use In Past Year?: No Smoking: other (former smoker) Drug use: none Marital status: single, in relationship Housing status: lives with family Occupation status: retired Immunizations History of Influenza Vaccine: Yes Influenza Vaccine Date: Jan 19, 2015 History of Tetanus Vaccine?: Unknown History of Pneumococcal: Yes Pneumococcal Date: Dec 21, 2010 History of Hepatitis B Vaccine: Unknown History of MDRO No Allergies Coded Allergies: Lisinopril (Verified Allergy, Unknown, RASH, 06/24/15) Spironolactone (Verified Allergy, Unknown, unkn, 06/24/15) Zolpidem (Verified Adverse Reaction, Unknown, HALLUCINATIONS, 06/24/15) Medications Home Medications: Home Meds and Scripts Medications Dose Route/Sig Max Daily Dose Days Date Category Dose Instructions Entresto 24-26 mg (Sacubitril-Valsartan) 1 Tab Tab 1 Tab PO BID 03/08/16 Reported Coreg (Carvedilol) 6.25 Mg Tab 6.25 Mg PO BID 03/08/16 Reported Demadex (Torsemide) 20 Mg Tab 20 Mg PO UD 03/08/16 Reported 1 TAB IF GAIN OF 3 LBS 2 TABS IF GAIN OF 5 LBS Nexium (Esomeprazole Magnesium) 40 Mg Capcr 40 Mg PO DAILY 03/08/16 Reported Breo Ellipta (Fluticasone Furoate-Vilanterol) 1 Inh Inh 1 Puff INH DAILY 03/08/16 Reported Lipitor (Atorvastatin Calcium) 10 Mg Tab 10 Mg PO DAILY 03/08/16 Reported Flonase Allergy Relief (Fluticasone Propionate (Nasal)) 50 Mcg/Act Spr 2 [place] RICHA DAILY 03/08/16 Reported Mag64 (Magnesium Chloride) 64 Mg Tabcr 1 Tab PO DAILY 30 06/02/15 Rx Rocaltrol Cap (Calcitriol) 0.25 Mcg Cap 0.25 Mcg PO MWF 05/28/15 Reported Creon 53634 (Pancrelipase (Lipase-Protease-) 1 Cap Cap 1-2 Cap PO WITH SNACKS 05/28/15 Reported Xopenex Hfa (Levalbuterol) Inh 2 Puffs INH Q4H PRN 11/24/14 Reported Zoloft (Sertraline HCl) 25 Mg Tab 25 Mg PO DAILY 11/24/14 Reported TAKE 1 TABLET DAILY Creon 24860 (Pancrelipase (Lipase-Protease-) 1 Cap Cap 3 Cap PO WITH EACH MEAL 11/24/14 Reported Vitamin C (Ascorbic Acid) 250 Mg Tab 500 Mg PO DAILY 11/24/14 Reported Coumadin (Warfarin Sodium) 3 Mg Tab 1.5 Mg PO UD 30 11/24/14 Reported SATURDAY, SATURDAY,SATURDAY, SATURDAY Vitamin D (Cholecalciferol) 1,000 Inter.unit Tab 5,000 Inter.unit PO DAILY 06/10/14 Reported Micro-K Ext Rel (Potassium Chloride) 10 Meq Capcr 10 Meq PO DAILY 06/10/14 Reported TAKE 1 TABLET DAILY WITH FOOD Plavix (Clopidogrel Bisulfate) 75 Mg Tab 75 Mg PO DAILY 02/02/13 Reported Centrum Silver Ultra Mens (Multiple Vitamins W/ Minerals) 1 Tab Tab 1 Tablet PO DAILY 02/02/13 Reported Nitrostat (Nitroglycerin) 0.4 Mg Sub 0.4 Mg UT PRN 02/02/13 Reported Novolog Mix 70/30 (Insulin Aspart Protamine & Asp) 1 Inj Inj 12 Units SC QPM 08/22/12 Reported TAKE WITH SUPPER Novolog Mix 70/30 (Insulin Aspart Protamine & Asp) 1 Inj Inj 28 Units SC QAM 08/22/12 Reported Flomax (Tamsulosin Hcl) 0.4 Mg Cap 0.4 Mg PO DAILY 08/22/12 Reported TAKE 1 TABLET DAILY Coumadin (Warfarin Sodium) 3 Mg Tab 3 Mg PO UD 08/22/12 Reported SATURDAY, SATURDAY, SATURDAY Inpatient Medications: Current Inpatient Medications Medications (Trade) Dose Ordered Sig/Quoc Route Start Time Stop Time Status Last Admin Dose Admin Nitroglycerin (Nitrostat Tab) 0.4 mg UD PRN SL 03/08/16 17:00 04/07/16 16:59 Glucose (Glucose 40% Gel) 15-30 GRAMS 15 GRAMS... UD PRN PO 03/08/16 17:15 04/07/16 17:14 Glucose (Glucose Chew Tab) 4-8 Tablets 4 Tabl... UD PRN PO 03/08/16 17:15 04/07/16 17:14 Dextrose (Dextrose 50% 50ML Syringe) 25-50ML OF 50% DW IV FOR... UD PRN IV 03/08/16 17:15 04/07/16 17:14 Glucagon (Glucagon Inj) 1 mg UD PRN SQ 03/08/16 17:15 04/07/16 17:14 Miscellaneous Information (Consult Glycemic Management Pharmacy) 1 ea UD PRN N/A 03/08/16 19:45 04/07/16 19:44 Atorvastatin Calcium (Lipitor Tab) 10 mg DAILY PO 03/09/16 09:00 04/08/16 08:59 03/13/16 08:42 10 MG Calcitriol (Rocaltrol Cap) 0.25 mcg DAILY PO 03/09/16 09:00 04/08/16 08:59 03/13/16 08:43 0.25 MCG Clopidogrel Bisulfate (plAVix TAB) 75 mg DAILY PO 03/09/16 09:00 04/08/16 08:59 Future Hold 03/13/16 08:42 75 MG Fluticasone Propionate (Flonase Nasal [place]) 2 sprays DAILY RICHA 03/09/16 09:00 04/08/16 08:59 03/13/16 08:41 2 SPRAYS Levalbuterol (Xopenex Hfa Inhaler) 2 puffs Q4H PRN INH 03/08/16 17:30 04/07/16 17:29 Sertraline HCl (Zoloft Tab) 25 mg DAILY PO 03/09/16 09:00 04/08/16 08:59 03/13/16 08:42 25 MG Tamsulosin HCl (Flomax Cap) 0.4 mg DAILY PO 03/09/16 09:00 04/08/16 08:59 03/13/16 08:43 0.4 MG Miscellaneous Information (Order Awaiting Action) 1 ea QS N/A 03/08/16 19:45 04/07/16 19:44 Amylase/Lipase/ Protease (Pancreaze (Lipase 10,500U) Cap) 2 cap TIDM PO 03/09/16 07:15 04/08/16 07:29 03/14/16 07:52 2 CAP Amylase/Lipase/ Protease (Pancreaze (Lipase 10,500U) Cap) 1-2 CAPS WITH SNACKS UD PRN PO 03/08/16 19:45 04/07/16 19:44 Docusate Sodium (coLACE CAP) 100 mg BID PO 03/10/16 18:00 04/09/16 17:59 03/13/16 21:08 100 MG Polyethylene (Miralax Powder Packet) 17 gm HS PO 03/10/16 18:00 04/09/16 17:59 03/13/16 21:08 17 GM Polyethylene (Miralax Powder Packet) 17 gm Q6H PRN PO 03/10/16 21:15 04/09/16 21:14 03/13/16 10:48 17 GM Pantoprazole Sodium (Protonix Tab) 40 mg QAM PO 03/12/16 09:00 04/11/16 08:59 03/13/16 08:42 40 MG Acetaminophen/ Codeine Phosphate (Tylenol w/ Codeine #3 Tab) 1 tab for pain scale 4-6 2 t... Q4H PRN PO 03/12/16 09:30 04/11/16 09:29 03/14/16 07:56 2 TAB Acetaminophen (Tylenol Tab) 650 mg Q4H PRN PO 03/12/16 09:30 04/11/16 09:29 Insulin Aspart SLIDING SCALE G... ACHS MA 03/12/16 16:00 04/11/16 15:59 03/13/16 21:11 1 UNITS Sodium Chloride (Nss 1000ml) 1,000 ml @ 75 mls/hr [id number] IV 03/13/16 08:45 04/12/16 08:44 03/13/16 21:14 75 MLS/HR Warfarin Sodium (Coumadin Tab) 2.5 mg DAILY@16 PO 03/13/16 16:00 04/12/16 15:59 Future Hold 03/13/16 16:58 2.5 MG Amiodarone HCl (Cordarone Tab) 200 mg BID PO 03/13/16 09:00 04/12/16 08:59 03/13/16 21:08 200 MG Insulin Glargine (Lantus Solostar Pen) 10 unit PM SC 03/13/16 21:00 04/12/16 20:59 03/13/16 21:10 10 UNIT Review of Systems Review of Systems Constitutional: No chills, No fever Eyes: No double vision Neurological: No dizzy Endocrine: No excessive thirst Gastrointestinal: + nausea, No abdominal pain, No vomiting Cardiovascular: + chest pain Respiratory: + shortness of breath Skin: No rash Musculoskeletal: + arthritis Male : No painful urination Physical Exam Vital Signs: Vital Signs Past 12 Hours Date Time Temp Pulse Resp B/P Pulse Ox O2 Delivery O2 Flow Rate FiO2 03/14/16 06:17 106 16 108/63 98 Room Air 03/14/16 04:00 98 Room Air 03/14/16 04:00 36.9 107 16 98/63 99 Room Air 03/14/16 02:00 36.9 106 16 105/57 97 Room Air 03/14/16 00:00 98 Room Air 03/14/16 00:00 113 16 104/58 98 Room Air 03/13/16 22:00 114 17 97/48 99 Room Air Physical Exam: General Appearance: + moderate distress Eyes: bilateral eyes normal inspection ENT: hearing grossly normal Neck: no JVD Respiratory/Chest: no respiratory distress, no accessory muscle use Cardiovascular: no JVD Extremities: normal inspection Neurologic/Psychiatric: alert, normal mood/affect, oriented x 3 Skin: normal color Assessment & Plan Assessment & Plan A/P: Incomplete bladder emptying; gross hematuria s/p attempted barlow placement RN and Denny Brito PA-C notified of pt's SOB and chest pain this AM. Would recommend leaving barlow catheter out for now d/t increased risk of bleeding with placement. Continue to monitor PVRs qshift. Call urology if pt unable to void. Would also recommend starting him on Flomax if able, however I am cautious to do so in the setting of recent fall. Continue to monitor renal function. Thanks for the consult. No further management at this time. Will continue to follow along with primary service.
[2016-03-14] MEDS: INSULIN ASPART 100 UNITS/ML 3 ML PEN SC SCH ×4 (08:56→19:34)
--- NOTE | 2016-03-14 09:09 | Cardiology Follow-Up ---
Subjective General Date of Service: Mar 14, 2016. Chief Complaint: incomplete bladder emptying Pt evaluation today including: conversation w/ patient, physical exam History of Present Illness The patient is a 80 year old male seen in follow up. Patient feels worse this am. Did well yesterday. BP better during the day and overnight last night. This am he started his breakfast, ate some toast an then had chest pain. He then reported nausea and vomited. At the time of my assessment, he had just completed a stat EKG and he was feeling better post vomiting having received zofran an SL nitroglycerin. Telemetry reveals V-paced rhythm with frequent PVCs and brief salvos of non sustained VT , 6 beats in duration. Renal function has worsened, creatinine 3 yesterday, now 3.5 this am. Allergies Coded Allergies: Lisinopril (Verified Allergy, Unknown, RASH, 06/24/15) Spironolactone (Verified Allergy, Unknown, unkn, 06/24/15) Zolpidem (Verified Adverse Reaction, Unknown, HALLUCINATIONS, 06/24/15) Social History Smoking Status: Former Smoker Hx Tobacco Use In Past Year?: No Hx Alcohol Use - Type And Amou: No Hx Substance Use - Type And Am: No Problem List Medical Problems: (1) Acute bronchitis Status: Acute (2) Chronic renal disease Status: Acute (3) Elevated troponin Status: Acute (4) Influenza Status: Acute (5) Systolic congestive heart failure Status: Acute Physical Exam Vital Signs Last Vital Signs Documentation Date Time Temp Pulse Resp B/P Pulse Ox O2 Delivery O2 Flow Rate FiO2 03/14/16 06:17 106 16 108/63 98 Room Air 03/14/16 04:00 36.9 03/12/16 04:09 2.0 Physical Exam Constitutional: General Apperance: heathly-appearing Level of Distress: mild distress Psychiatric: Mental Status: active & alert Head: normocephalic Eyes: EOM: EOMI ENMT: normal ENT inspection, hearing grossly normal Neck: supple, no masses Lungs: Respiratory effort: no dyspnea, good air movement Auscultation: breath sounds normal, no wheezing Cardiovascular: Heart Auscultation: no murmurs, no rubs, no gallops, irregular rate rhythm Peripheral Pulses: Bruits: none appreciated Abdomen: Bowel Sounds: normal Inspection & Palpation: soft, no tenderness, guarding & rebound, no masses Musculoskeletal: normal strength (5/5 throughout) Extremities: no edema Neurologic: Cranial Nerves: grossly intact Sensation: grossly intact Assessment and Plan Assessment and Plan Impression: 80-year-old male 1. Admitted with syncope, noted to have persistent bradycardia which required transient transcutaneous pacing and support with dopamine -underwent biventricular pacemaker AICD , 03/12/16 2. History of chronic atrial fibrillation (also frequent PVCs) for which he is on chronic anticoagulation, history of past strokes 3. Chronic systolic heart failure, LVEF 30-35% 4. 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 JOSUÉ, on baseline stage IV chronic kidney disease -likely due to poor renal perfusion , low cardiac output state, hypovolemia 6. History of hyperkalemia 7. Underlying COPD Recommendations: Question if patient is intravascularly volume depleted- elevated HR, elevated BUN/ CR, hypotension, decreased urine output. Continue Plavix, given h/o left main stent, would continue unless there is overt sign of hemorrhage (which is not present ). Continue NS 75 ml/hr. No need for barlow at present, no significant bladder retention of bladder scan. Limited TTecho to rule out pericardial effusion, assess IVC size for estimation of CVP, RA pressure performed, no significant pericardial effusion. Moderate biventricular systolic dysfunction noted. Inferior vena cava diameter small, completely collapses with inspiration, consistent with low CVP, low RA pressure. Since no pericardial effusion, will resume coumadin. Instead of proceeding with coreg and BP support with dopamine, recommend holding coreg, and not restarting dopamine , and administer IVF. Start low dose oral amiodarone, fo purpose of PVC suppression, reduce ectopy, increase BiV pacing and hopefully improve cardiac output as a result. Pt has chronic AF, low dose amiodarone low is not likely to cause chemical cardioversion in setting of low INR, feel safe to start now. Troponin ordered. Entresto on hold due to low BP and JOSUÉ. DVT proph: coumadin restarted. Franky Morales, Laboratory Results Last 24 Hours Test 03/13/16 10:48 03/13/16 16:05 03/13/16 16:24 03/13/16 19:40 Bedside Glucose 128 mg/dl Urine Color YELLOW Urine Appearance CLEAR Urine pH 5.0 Urine Specific [place] 1.018 Urine Protein NEG Urine Glucose (UA) NEG Urine Ketones NEG Urine Occult Blood 2+ Urine Nitrite NEG Urine Bilirubin NEG Urine Urobilinogen NEG Urine Leukocyte Esterase SMALL Urine WBC (Auto) 5-10 /hpf Urine RBC (Auto) 5-10 /hpf Urine Hyaline Casts (Auto) 1-5 /lpf Urine Epithelial Cells (Auto) >30 /lpf Urine Bacteria (Auto) NEG Urine Osmolality 396 mOms/kg Urine Random Sodium 21 mEq/L Urine Random Chloride 22 mEq/L Sodium Level 138 mmol/L Potassium Level 5.0 mmol/L Chloride Level 108 mmol/L Carbon Dioxide Level 20 mmol/L Anion Gap 10.0 mmol/L Blood Urea Nitrogen 55 mg/dl Creatinine 3.30 mg/dl Est Creatinine Clear Calc Drug Dose 18.1 ml/min Estimated GFR () 19.2 Estimated GFR (Non- 16.6 BUN/Creatinine Ratio 16.8 Random Glucose 192 mg/dl Calcium Level 8.7 mg/dl Prothrombin Time 14.0 SECONDS Prothromb Time International Ratio 1.3 Test 03/13/16 21:06 03/13/16 22:18 03/14/16 05:35 03/14/16 06:12 Bedside Glucose 200 mg/dl 100 mg/dl Sodium Level 141 mmol/L 139 mmol/L Potassium Level 4.4 mmol/L 4.6 mmol/L Chloride Level 113 mmol/L 111 mmol/L Carbon Dioxide Level 20 mmol/L 18 mmol/L Anion Gap 8.0 mmol/L 10.0 mmol/L Blood Urea Nitrogen 55 mg/dl 59 mg/dl Creatinine 3.00 mg/dl 3.30 mg/dl Est Creatinine Clear Calc Drug Dose 19.9 ml/min 18.1 ml/min Estimated GFR () 21.6 19.2 Estimated GFR (Non- 18.6 16.6 BUN/Creatinine Ratio 18.2 18.0 Random Glucose 153 mg/dl 98 mg/dl Calcium Level 7.5 mg/dl 8.4 mg/dl White Blood Count 11.64 K/uL Red Blood Count 3.67 M/uL Hemoglobin 10.7 g/dL Hematocrit 33.0 % Mean Corpuscular Volume 89.9 fL Mean Corpuscular Hemoglobin 29.2 pg Mean Corpuscular Hemoglobin Concent 32.4 g/dl RDW Standard Deviation 56.0 fL RDW Coefficient of Variation 16.9 % Platelet Count 104 K/uL Mean Platelet Volume 10.2 fL Prothrombin Time 13.9 SECONDS Prothromb Time International Ratio 1.3 Phosphorus Level 3.8 mg/dl Magnesium Level 2.2 mg/dl Test 03/14/16 08:27
[2016-03-14] MEDS: CLOPIDOGREL BISULFATE 75 MG TAB PO SCH (09:23)
[2016-03-14] MEDS: ATORVASTATIN 10 MG TAB PO SCH (09:23)
[2016-03-14] MEDS: DOCUSATE SODIUM 100 MG CAP PO SCH ×2 (09:23→19:38)
[2016-03-14] MEDS: SERTRALINE HCL 50 MG TAB PO SCH (09:24)
[2016-03-14] MEDS: AMIODARONE 200 MG TAB PO SCH ×2 (09:24→16:34)
[2016-03-14] MEDS: CALCITRIOL 0.25 MCG CAP PO SCH (09:24)
[2016-03-14] MEDS: PANTOprazole SOD 40 MG TAB PO SCH (09:24)
[2016-03-14] MEDS: TAMSULOSIN HCL 0.4 MG CAP PO SCH (09:24)
[2016-03-14] MEDS: FLUTICASONE PROPIONATE NA SPR 16 GM BTL NAE SCH (09:26)
--- NOTE | 2016-03-14 09:45 | Cardiology Follow-Up ---
Subjective Date of Service: Mar 14, 2016. Pt evaluation today including: conversation w/ patient, physical exam, lab review, review of studies, review of inpatient medication list History of Present Illness This is a very pleasant 80-year-old gentleman who has a history of ischemic cardiomyopathy including multiple coronary interventions. His left ventricular ejection fraction had declined to 33% in 2012 and has remained in that range. He was initially followed by [facility], subsequently transferred his care to [place], and has now returned to [facility]. He has a history of nonsustained ventricular tachycardia which I believe has been asymptomatic in the past. He has been offered an ICD in the past which she has declined. His current admission however is due to progressive weakness, loss of appetite and some shortness of breath. He then had a dizzy spell where he fell to the floor, evidently did not lose consciousness but came close. In the emergency room he was hypotensive and his blood pressure responded to IV fluids, he was also in atrial fibrillation (which is permanent) and he was bradycardic on minimal AV miky blocking medications (carvedilol 6.25 mg twice a day which he needs for his cardiomyopathy). His heart rate has increased with discontinuation of beta blockade and addition of dobutamine, he was temporary paced for some time. Here he has had a rising creatinine due to acute kidney injury, probably due to hypotension and bradycardia and decreased perfusion. He has also had low-grade enzyme release which is probably demand ischemia not infarction. I discussed options of biventricular pacing to improve cardiac output and renal perfusion as well as to try to help his cardiomyopathy due to improvement in regularity, He agreed to this and ICD therapy and a Bi-Ventricular ICD (without an atrial lead) was implanted 03/12/2016. There was only one adequate LV location due to venous anatomy, it is anatomically good but thresholds are a little high but stable and acceptable. With very frequent ventricular ectopy oral amiodarone has been started. He is not feeling very well today, some nausea and vomiting. No significant incisional discomfort. Social History Smoking Status: Former Smoker History of Alcohol Use: No Review of Systems Respiratory: + cough, No dyspnea at rest, No hemoptysis, No shortness of breath , No sputum, No wheezing Cardiac: No PND, No chest pain, No claudication, No edema, No orthopnea, No palpitations Objective Vital Signs Past 12 Hours Date Time Temp Pulse Resp B/P Pulse Ox O2 Delivery O2 Flow Rate FiO2 03/14/16 08:54 Room Air 03/14/16 06:17 106 16 108/63 98 Room Air 03/14/16 04:00 98 Room Air 03/14/16 04:00 36.9 107 16 98/63 99 Room Air 03/14/16 02:00 36.9 106 16 105/57 97 Room Air 03/14/16 00:00 98 Room Air 03/14/16 00:00 113 16 104/58 98 Room Air 03/13/16 22:00 114 17 97/48 99 Room Air Last Recorded Weight-Kilograms: 87.500 Intake & Output 8-Hour Column 03/13/16 03/14/16 03/14/16 16:00 00:00 08:00 Intake Total 1816 ml 1420 ml 840 ml Output Total 125 ml 200 ml Balance 1816 ml 1295 ml 640 ml 24-Hour Column 03/14/16 08:00 Intake Total 4076 ml Output Total 325 ml Balance 3751 ml Physical Exam Constitutional: General Apperance: heathly-appearing Level of Distress: mild distress Lungs: Respiratory effort: no dyspnea, good air movement Auscultation: breath sounds normal, no wheezing Cardiovascular: Heart Auscultation: no murmurs, no rubs, no gallops, tachycardia, irregular rate rhythm Peripheral Pulses: Bruits: none appreciated Data Laboratory Results: Last 24 Hours Test 03/13/16 10:48 03/13/16 16:05 03/13/16 16:24 03/13/16 19:40 Bedside Glucose 128 mg/dl Urine Color YELLOW Urine Appearance CLEAR Urine pH 5.0 Urine Specific [place] 1.018 Urine Protein NEG Urine Glucose (UA) NEG Urine Ketones NEG Urine Occult Blood 2+ Urine Nitrite NEG Urine Bilirubin NEG Urine Urobilinogen NEG Urine Leukocyte Esterase SMALL Urine WBC (Auto) 5-10 /hpf Urine RBC (Auto) 5-10 /hpf Urine Hyaline Casts (Auto) 1-5 /lpf Urine Epithelial Cells (Auto) >30 /lpf Urine Bacteria (Auto) NEG Urine Osmolality 396 mOms/kg Urine Random Sodium 21 mEq/L Urine Random Chloride 22 mEq/L Sodium Level 138 mmol/L Potassium Level 5.0 mmol/L Chloride Level 108 mmol/L Carbon Dioxide Level 20 mmol/L Anion Gap 10.0 mmol/L Blood Urea Nitrogen 55 mg/dl Creatinine 3.30 mg/dl Est Creatinine Clear Calc Drug Dose 18.1 ml/min Estimated GFR () 19.2 Estimated GFR (Non- 16.6 BUN/Creatinine Ratio 16.8 Random Glucose 192 mg/dl Calcium Level 8.7 mg/dl Prothrombin Time 14.0 SECONDS Prothromb Time International Ratio 1.3 Test 03/13/16 21:06 03/13/16 22:18 03/14/16 05:35 03/14/16 06:12 Bedside Glucose 200 mg/dl 100 mg/dl Sodium Level 141 mmol/L 139 mmol/L Potassium Level 4.4 mmol/L 4.6 mmol/L Chloride Level 113 mmol/L 111 mmol/L Carbon Dioxide Level 20 mmol/L 18 mmol/L Anion Gap 8.0 mmol/L 10.0 mmol/L Blood Urea Nitrogen 55 mg/dl 59 mg/dl Creatinine 3.00 mg/dl 3.30 mg/dl Est Creatinine Clear Calc Drug Dose 19.9 ml/min 18.1 ml/min Estimated GFR () 21.6 19.2 Estimated GFR (Non- 18.6 16.6 BUN/Creatinine Ratio 18.2 18.0 Random Glucose 153 mg/dl 98 mg/dl Calcium Level 7.5 mg/dl 8.4 mg/dl White Blood Count 11.64 K/uL Red Blood Count 3.67 M/uL Hemoglobin 10.7 g/dL Hematocrit 33.0 % Mean Corpuscular Volume 89.9 fL Mean Corpuscular Hemoglobin 29.2 pg Mean Corpuscular Hemoglobin Concent 32.4 g/dl RDW Standard Deviation 56.0 fL RDW Coefficient of Variation 16.9 % Platelet Count 104 K/uL Mean Platelet Volume 10.2 fL Prothrombin Time 13.9 SECONDS Prothromb Time International Ratio 1.3 Phosphorus Level 3.8 mg/dl Magnesium Level 2.2 mg/dl Test 03/14/16 09:18 Imaging: Post-op CXR shows good lead position (RV and LV), no pneumothorax Telemetry reviewed: Intermittent appropriate V pacing, PVCs and runs of ventricular beats, some intrinsic conduction Assessment and Plan #1. Ischemic cardiomyopathy: Post ICD implant: The device is functioning well, the site looks good. #2. Atrial fibrillation: On admission with slow ventricular response, now improved but very irregular. #3. Ventricular ectopy: He has very frequent ventricular ectopy including PVCs and runs of ventricular tachycardia. This will interfere with our ability to biventricularly pace. He is on oral amiodarone, but that may take some time to take effect. Consider IV for a few days. #4. Renal insufficiency: This is likely in part due to hypoperfusion due to a very irregular heart rate decreasing cardiac output as well as his cardiomyopathy doing the same and more recently hypotension. His renal function may improve overf the long run with biventricular pacing and rate regularization. Thank you for allowing me to participate in his care.
--- NOTE | 2016-03-14 09:46 | Nephrology Progress Note ---
Nephrology Progress Note Date of Service: Mar 14, 2016. Subjective 80 yo male admitted with bradycardia required a dopamine drip. initially had regis which improved with better bp support and dopamine. creatinine was 2 and then worsened after the defibrillator was placed. may have been having hypoperfusion significant enough to have a second insult and creatinine worsening again. does have some urinary retention which we are monitoring. pt choked on his eggs this morning resulting in nausea and vomiting. has been having pvcs and followed by cardiology. bp remains in the 80s despite iv fluids. pt though comfortable and happy. Objective Date Time Temp Pulse Resp B/P Pulse Ox O2 Delivery O2 Flow Rate FiO2 03/14/16 08:54 Room Air 03/14/16 06:17 106 16 108/63 98 Room Air 03/14/16 04:00 98 Room Air 03/14/16 04:00 36.9 107 16 98/63 99 Room Air 03/14/16 02:00 36.9 106 16 105/57 97 Room Air 03/14/16 00:00 98 Room Air 03/14/16 00:00 113 16 104/58 98 Room Air 03/13/16 22:00 114 17 97/48 99 Room Air 03/13/16 20:00 100 Room Air 03/13/16 19:59 37.1 84 17 92/64 100 Room Air 03/13/16 18:26 37.1 104 16 113/72 99 03/13/16 16:00 36.9 109 18 113/70 99 Room Air 03/13/16 16:00 Room Air 03/13/16 14:00 36.6 104 19 118/45 95 Room Air 03/13/16 13:59 106 19 118/45 95 Room Air 03/13/16 13:26 111 27 114/76 100 Room Air 03/13/16 13:23 111 22 94/64 98 Room Air 03/13/16 13:21 107 25 90/61 99 Room Air 03/13/16 12:43 36.7 105 18 83/54 98 Room Air 03/13/16 12:00 Room Air 03/13/16 10:00 108 18 112/77 96 Room Air Physical Exam: General-aaox3 Eyes-no sceral icterus ENT-mmm Neck-supple Lungs-cta Heart-irregular/tachy Abdomen-bs+ s/nt/nd Extremities-no c/c/e Neuro-nonfocal Current Inpatient Medications Medications (Trade) Dose Ordered Sig/Quoc Route Start Time Stop Time Status Last Admin Dose Admin Nitroglycerin (Nitrostat Tab) 0.4 mg UD PRN SL 03/08/16 17:00 04/07/16 16:59 03/14/16 08:34 0.4 MG Glucose (Glucose 40% Gel) 15-30 GRAMS 15 GRAMS... UD PRN PO 03/08/16 17:15 04/07/16 17:14 Glucose (Glucose Chew Tab) 4-8 Tablets 4 Tabl... UD PRN PO 03/08/16 17:15 04/07/16 17:14 Dextrose (Dextrose 50% 50ML Syringe) 25-50ML OF 50% DW IV FOR... UD PRN IV 03/08/16 17:15 04/07/16 17:14 Glucagon (Glucagon Inj) 1 mg UD PRN SQ 03/08/16 17:15 04/07/16 17:14 Miscellaneous Information (Consult Glycemic Management Pharmacy) 1 ea UD PRN N/A 03/08/16 19:45 04/07/16 19:44 Atorvastatin Calcium (Lipitor Tab) 10 mg DAILY PO 03/09/16 09:00 04/08/16 08:59 03/14/16 09:23 10 MG Calcitriol (Rocaltrol Cap) 0.25 mcg DAILY PO 03/09/16 09:00 04/08/16 08:59 03/14/16 09:24 0.25 MCG Clopidogrel Bisulfate (plAVix TAB) 75 mg DAILY PO 03/09/16 09:00 04/08/16 08:59 Future hold 03/14/16 09:23 75 MG Fluticasone Propionate (Flonase Nasal [place]) 2 sprays DAILY RICHA 03/09/16 09:00 04/08/16 08:59 03/14/16 09:26 2 SPRAYS Levalbuterol (Xopenex Hfa Inhaler) 2 puffs Q4H PRN INH 03/08/16 17:30 04/07/16 17:29 Sertraline HCl (Zoloft Tab) 25 mg DAILY PO 03/09/16 09:00 04/08/16 08:59 03/14/16 09:24 25 MG Tamsulosin HCl (Flomax Cap) 0.4 mg DAILY PO 03/09/16 09:00 04/08/16 08:59 03/14/16 09:24 0.4 MG Miscellaneous Information (Order Awaiting Action) 1 ea QS N/A 03/08/16 19:45 04/07/16 19:44 Amylase/Lipase/ Protease (Pancreaze (Lipase 10,500U) Cap) 2 cap TIDM PO 03/09/16 07:15 04/08/16 07:29 03/14/16 07:52 2 CAP Amylase/Lipase/ Protease (Pancreaze (Lipase 10,500U) Cap) 1-2 CAPS WITH SNACKS UD PRN PO 03/08/16 19:45 04/07/16 19:44 Docusate Sodium (coLACE CAP) 100 mg BID PO 03/10/16 18:00 04/09/16 17:59 03/14/16 09:23 100 MG Polyethylene (Miralax Powder Packet) 17 gm HS PO 03/10/16 18:00 04/09/16 17:59 03/13/16 21:08 17 GM Polyethylene (Miralax Powder Packet) 17 gm Q6H PRN PO 03/10/16 21:15 04/09/16 21:14 03/13/16 10:48 17 GM Pantoprazole Sodium (Protonix Tab) 40 mg QAM PO 03/12/16 09:00 04/11/16 08:59 03/14/16 09:24 40 MG Acetaminophen/ Codeine Phosphate (Tylenol w/ Codeine #3 Tab) 1 tab for pain scale 4-6 2 t... Q4H PRN PO 03/12/16 09:30 04/11/16 09:29 03/14/16 07:56 2 TAB Acetaminophen (Tylenol Tab) 650 mg Q4H PRN PO 03/12/16 09:30 04/11/16 09:29 Insulin Aspart SLIDING SCALE G... ACHS SC 03/12/16 16:00 04/11/16 15:59 03/13/16 21:11 1 UNITS Sodium Chloride (Nss 1000ml) 1,000 ml @ 75 mls/hr [id number] IV 03/13/16 08:45 04/12/16 08:44 03/13/16 21:14 75 MLS/HR Warfarin Sodium (Coumadin Tab) 2.5 mg DAILY@16 PO 03/13/16 16:00 04/12/16 15:59 Future hold 03/13/16 16:58 2.5 MG Amiodarone HCl (Cordarone Tab) 200 mg BID PO 03/13/16 09:00 04/12/16 08:59 03/14/16 09:24 200 MG Insulin Glargine (Lantus Solostar Pen) 10 unit PM SC 03/13/16 21:00 04/12/16 20:59 03/13/16 21:10 10 UNIT Ondansetron HCl (Zofran Inj) 4 mg Q4H PRN IV 03/14/16 08:45 04/13/16 08:44 03/14/16 08:34 4 MG Last 24 Hours Test 03/13/16 10:48 03/13/16 16:05 03/13/16 16:24 03/13/16 19:40 Bedside Glucose 128 mg/dl Urine Color YELLOW Urine Appearance CLEAR Urine pH 5.0 Urine Specific [place] 1.018 Urine Protein NEG Urine Glucose (UA) NEG Urine Ketones NEG Urine Occult Blood 2+ Urine Nitrite NEG Urine Bilirubin NEG Urine Urobilinogen NEG Urine Leukocyte Esterase SMALL Urine WBC (Auto) 5-10 /hpf Urine RBC (Auto) 5-10 /hpf Urine Hyaline Casts (Auto) 1-5 /lpf Urine Epithelial Cells (Auto) >30 /lpf Urine Bacteria (Auto) NEG Urine Osmolality 396 mOms/kg Urine Random Sodium 21 mEq/L Urine Random Chloride 22 mEq/L Sodium Level 138 mmol/L Potassium Level 5.0 mmol/L Chloride Level 108 mmol/L Carbon Dioxide Level 20 mmol/L Anion Gap 10.0 mmol/L Blood Urea Nitrogen 55 mg/dl Creatinine 3.30 mg/dl Est Creatinine Clear Calc Drug Dose 18.1 ml/min Estimated GFR () 19.2 Estimated GFR (Non- 16.6 BUN/Creatinine Ratio 16.8 Random Glucose 192 mg/dl Calcium Level 8.7 mg/dl Prothrombin Time 14.0 SECONDS Prothromb Time International Ratio 1.3 Test 03/13/16 21:06 03/13/16 22:18 03/14/16 05:35 03/14/16 06:12 Bedside Glucose 200 mg/dl 100 mg/dl Sodium Level 141 mmol/L 139 mmol/L Potassium Level 4.4 mmol/L 4.6 mmol/L Chloride Level 113 mmol/L 111 mmol/L Carbon Dioxide Level 20 mmol/L 18 mmol/L Anion Gap 8.0 mmol/L 10.0 mmol/L Blood Urea Nitrogen 55 mg/dl 59 mg/dl Creatinine 3.00 mg/dl 3.30 mg/dl Est Creatinine Clear Calc Drug Dose 19.9 ml/min 18.1 ml/min Estimated GFR () 21.6 19.2 Estimated GFR (Non- 18.6 16.6 BUN/Creatinine Ratio 18.2 18.0 Random Glucose 153 mg/dl 98 mg/dl Calcium Level 7.5 mg/dl 8.4 mg/dl White Blood Count 11.64 K/uL Red Blood Count 3.67 M/uL Hemoglobin 10.7 g/dL Hematocrit 33.0 % Mean Corpuscular Volume 89.9 fL Mean Corpuscular Hemoglobin 29.2 pg Mean Corpuscular Hemoglobin Concent 32.4 g/dl RDW Standard Deviation 56.0 fL RDW Coefficient of Variation 16.9 % Platelet Count 104 K/uL Mean Platelet Volume 10.2 fL Prothrombin Time 13.9 SECONDS Prothromb Time International Ratio 1.3 Phosphorus Level 3.8 mg/dl Magnesium Level 2.2 mg/dl Test 03/14/16 09:18 Assessment & Plan [id number]-creatinine worsening from likely second insult. discussed case with Dr. Morales, Dr. Carrington and Dr. Lau of critical care. Cardiology is considering adjusting the amiodarone for better rhythm control. may help with bp and perfusion to kidneys. expect creatinine to worsen and eventually peak and start to trend down again. no role for dialysis. giving fluids as tolerated to help with renal recovery. does have element of urinary retention which we are monitoring. Metabolic acidosis-will switch normal saline to 1/2ns with 75 of bicarb and monitor calcium levels which may drop with bicarb administration.
[2016-03-14] MEDS ORDERED: AMIODARONE IV BOLUS / DRIP IV STA (11:19)
[2016-03-14] MEDS: SODIUM BICARBONATE 8.4% INJ 75 MEQ in SODIUM CHLORIDE 0.45% 1000ML 1,000 ML IV SCH (11:31)
[2016-03-14] MEDS ORDERED: AMIODARONE / D5W 100 ML IV SCH (12:00)
--- NOTE | 2016-03-14 12:07 | Pharmacy Progress Note ---
Glycemic Control: Progress Nt Date of Service Mar 14, 2016. Scope Glycemic Pharmacist consulted by Dr Lo on 03/08/16 for glycemic control and to write orders per [facility] inpatient glycemic control protocol. Objective Accuchecks BSG (last 24hrs): Test 03/13/16 16:24 03/13/16 21:06 03/13/16 22:18 03/14/16 05:35 Random Glucose 192 mg/dl (70-99) 153 mg/dl (70-99) 98 mg/dl (70-99) Bedside Glucose 200 mg/dl (70-99) Test 03/14/16 06:12 03/14/16 11:18 Bedside Glucose 100 mg/dl (70-99) 105 mg/dl (70-99) Laboratory Data (last 24hrs) Test 03/13/16 16:24 03/13/16 22:18 03/14/16 05:35 Anion Gap 10.0 mmol/L 8.0 mmol/L 10.0 mmol/L BUN/Creatinine Ratio 16.8 18.2 18.0 Blood Urea Nitrogen 55 mg/dl 55 mg/dl 59 mg/dl Creatinine 3.30 mg/dl 3.00 mg/dl 3.30 mg/dl Potassium Level 5.0 mmol/L 4.4 mmol/L 4.6 mmol/L Sodium Level 138 mmol/L 141 mmol/L 139 mmol/L White Blood Count 11.64 K/uL HbA1c: Test 03/09/16 05:46 Hemoglobin A1c 8.2 % (4.5-5.6) H Recent Pertinent Medications Outpatient Anti-diabetic Regimen: * NovoLog Mix 70/30 * 28 units SQ in the AM * 12 units SQ in the evening with supper * A1c = 8.2 % 03/09/16 The patient is currently receiving: * Basal insulin: Lantus 10 units SQ PM - half dose if BSG is below 140mg/dL * Correctional Insulin: NovoLog Correction per scale AC/HS Goal Range: Low 140 mg/dL - High 180 mg/dL Correction Factor: 30 mg/dL/unit * Prandial insulin: Per carb ratio of 1 unit per 15 grams CHO consumed Risk Factors for Insulin Resistance: * Pressors: none * IV fluids: amiodarone gtt started today (mixed in dextrose) * Recent Procedure: 03/[address] Carrington * Diet: T2DM/AHA/low K, 1500mL restriction, mechanical soft Assessment & Plan ASSESSMENT: * ADA & AACE recommend a goal blood sugar range 140-180 mg/dl for the majority of critically ill & non-critically ill patients. However, more stringent targets may be selected in individual cases. 03/09/16 * 80 y/o known type 2 diabetic who presents with near syncope and amanda cardia. * Hypoglycemia noted on admission * the patient has not been feeling well and has had decreased PO intake, however has continued his insulin administrations * BSGs remain below goal range despite minimal insulin administration * will continue to hold long acting Lantus at this time and only order correctional insulin * A1c- current * 8.2% may be slightly above goal for this patient, however would not aim much lower secondary to the Elements of Diabetes Care Scoring Scale and suggested glycemic targets based on this. 03/11/16 * Mr. Redd's BSGs have finally started to increase and consistently stay high * This is most likely a result of resuming po intake and SCr improving * He received 9 units of insulin yesterday with fasting today of 199 mg/dL * Will plan to resume basal at this time but will be conservative with dosing and only give a one time dose as he will be NPO tomorrow for ICD placement 03/12/16 * Mr Redd received 24 units on 03/11 with BSGs ranging from 197-258mg/dL * likely he is somewhat basal insulin deficient since we were holding doses 2/ 2 hypoglycemia on admission - will resume basal insulin and likely see a trend downward of BSGs * NPO this AM for procedure with Dr. Carrington - likely diet will resume after this. * continue both basal and prandial insulins * slight tighten carb ratio at this time for better glycemic control 03/13/16 * After being NPO on 03/12 and receiving 15 units of basal insulin, BSGs are below goal range * hold AM Lantus * Decrease dose to Lantus 10 units SQ q PM * Carb ratio was made more aggressive yesterday, however dinner --> PM BSG went below goal range * loosen carb ratio back to 1:15 03/14/16 * BSGs dracy throughout the day yesterday after omitting AM Lantus for below goal values * After the PM dose of Lantus was given, BSGs have returned to normal, and now, below goal * continue evening Lantus with a slight decrease, but change parameter to hold if BSG is below 140mg/dL * Mr Redd is complaining of nausea and had emesis after breakfast today * likely BSGs will remain at or below goal while he is not tolerating PO intake well PLAN FOR INPATIENT GLYCEMIC CONTROL: * Continue to hold outpatient regimen at this time * mixed insulins are not typically used for inpatients secondary to changing PO status/difficulty to titrate * Lantus 8 units SQ q PM * hold dose if BSG is below 140mg/dL * Continue NovoLog AC and HS * Correction factor: 30mg/dL/unit * Carb ratio: 1 unit per 15 g of CHO consumed * Goal range: 140-180mg/dL per ADA recommendations * A1c - current * added to discharge instructions * Please note that the plan above was derived based on current level of insulin resistance and hospital stress. These recommendations are appropriate for inpatient admission only. Plan of care upon discharge will need to be reassessed to avoid potential outpatient hypo/hyperglycemia. Thank you.
[2016-03-14] MEDS ORDERED: AMIODARONE / D5W 200 ML IV SCH (12:15)
[2016-03-14 15:32] LABS: BUN/CREATININE RATIO 17.6 (10-20); CREATININE 3.5 mg/dl (0.60-1.40); POTASSIUM 5.1 mmol/L (3.5-5.1)
[2016-03-14 15:38] LABS: CALCIUM 7.6 mg/dl (8.5-10.1)
--- NOTE | 2016-03-14 16:04 | Progress Note ---
Medicine Progress Note Date & Time of Visit: Mar 14, 2016 at 15:59. Subjective Patient seen and examined. Nursing staff notes episode of nausea, vomiting and chest discomfort this morning. Patient evaluated by Cardiology. Started on IV amiodarone today. Objective Last 8 Hrs Date Time Temp Pulse Resp B/P Pulse Ox O2 Delivery O2 Flow Rate FiO2 03/14/16 14:42 100 03/14/16 14:00 36.7 93 20 101/52 100 Nasal Cannula 4.0 03/14/16 12:00 100 Nasal Cannula 4.0 03/14/16 12:00 36.7 88 12 89/55 100 Nasal Cannula 4.0 03/14/16 10:00 36.7 90 18 83/57 100 Room Air 03/14/16 08:54 Room Air 03/14/16 08:00 36.7 86 18 113/42 96 Room Air 03/14/16 08:00 98 Room Air Physical Exam: General-awake; alert; NAD Eyes-EOMI; no scleral icterus Neck-no stridor; trachea midline Lungs-CTA bilaterally anteriorly Heart-tachycardic; irregularly irregular Abdomen-soft; NTND; nBS Extremities-2+ peripheral pulses; no c/c/e Neuro-no gross focal deficits Laboratory Results: Last 24 Hours Test 03/13/16 16:05 03/13/16 16:24 03/13/16 19:40 03/13/16 21:06 Urine Color YELLOW Urine Appearance CLEAR Urine pH 5.0 Urine Specific [place] 1.018 Urine Protein NEG Urine Glucose (UA) NEG Urine Ketones NEG Urine Occult Blood 2+ Urine Nitrite NEG Urine Bilirubin NEG Urine Urobilinogen NEG Urine Leukocyte Esterase SMALL Urine WBC (Auto) 5-10 /hpf Urine RBC (Auto) 5-10 /hpf Urine Hyaline Casts (Auto) 1-5 /lpf Urine Epithelial Cells (Auto) >30 /lpf Urine Bacteria (Auto) NEG Urine Osmolality 396 mOms/kg Urine Random Sodium 21 mEq/L Urine Random Chloride 22 mEq/L Sodium Level 138 mmol/L Potassium Level 5.0 mmol/L Chloride Level 108 mmol/L Carbon Dioxide Level 20 mmol/L Anion Gap 10.0 mmol/L Blood Urea Nitrogen 55 mg/dl Creatinine 3.30 mg/dl Est Creatinine Clear Calc Drug Dose 18.1 ml/min Estimated GFR () 19.2 Estimated GFR (Non- 16.6 BUN/Creatinine Ratio 16.8 Random Glucose 192 mg/dl Calcium Level 8.7 mg/dl Prothrombin Time 14.0 SECONDS Prothromb Time International Ratio 1.3 Bedside Glucose 200 mg/dl Test 03/13/16 22:18 03/14/16 05:35 03/14/16 06:12 03/14/16 09:18 Sodium Level 141 mmol/L 139 mmol/L Potassium Level 4.4 mmol/L 4.6 mmol/L Chloride Level 113 mmol/L 111 mmol/L Carbon Dioxide Level 20 mmol/L 18 mmol/L Anion Gap 8.0 mmol/L 10.0 mmol/L Blood Urea Nitrogen 55 mg/dl 59 mg/dl Creatinine 3.00 mg/dl 3.30 mg/dl Est Creatinine Clear Calc Drug Dose 19.9 ml/min 18.1 ml/min Estimated GFR () 21.6 19.2 Estimated GFR (Non- 18.6 16.6 BUN/Creatinine Ratio 18.2 18.0 Random Glucose 153 mg/dl 98 mg/dl Calcium Level 7.5 mg/dl 8.4 mg/dl White Blood Count 11.64 K/uL Red Blood Count 3.67 M/uL Hemoglobin 10.7 g/dL Hematocrit 33.0 % Mean Corpuscular Volume 89.9 fL Mean Corpuscular Hemoglobin 29.2 pg Mean Corpuscular Hemoglobin Concent 32.4 g/dl RDW Standard Deviation 56.0 fL RDW Coefficient of Variation 16.9 % Platelet Count 104 K/uL Mean Platelet Volume 10.2 fL Prothrombin Time 13.9 SECONDS Prothromb Time International Ratio 1.3 Phosphorus Level 3.8 mg/dl Magnesium Level 2.2 mg/dl Bedside Glucose 100 mg/dl Troponin I 0.384 ng/ml Test 03/14/16 11:18 03/14/16 15:03 Bedside Glucose 105 mg/dl Sodium Level 138 mmol/L Potassium Level 5.1 mmol/L Chloride Level 110 mmol/L Carbon Dioxide Level 17 mmol/L Anion Gap 11.0 mmol/L Blood Urea Nitrogen 62 mg/dl Creatinine 3.50 mg/dl Est Creatinine Clear Calc Drug Dose 17.1 ml/min Estimated GFR () 17.9 Estimated GFR (Non- 15.5 BUN/Creatinine Ratio 17.6 Random Glucose 130 mg/dl Calcium Level 7.6 mg/dl Date/Time Source Procedure Growth Status 03/14/16 11:00 Urine , Clean Catch Urine Culture Pending Received Assessment & Plan 80 year old male with history of CAD, A fib on Coumadin, 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 Found to have symptomatic bradycardia, sick sinus syndrome, s/p biventricular pacemaker 03/12/16. FALL, PRESYNCOPE - likely 2/2 symptomatic bradycardia - Cardiology consulted - initially required pressure support with dopamine drip - also had temporary pacemaker - s/p biventricular pacemaker 03/12/16 - started on amiodarone for ectopy HISTORY OF NON ISCHEMIC CARDIOMYOPATHY - continue atorvastatin, clopidogrel - holding carvedilol, torsemide and Entresto given low-normal pressures and JOSUÉ A FIB - Coumadin initially held for supratherapeutic INR - Coumadin restarted post-procedure - started on Amiodarone DM 2 - glycemic pharmacy consulted - continue insulin therapy Acute renal insufficiency (baseline CKD stage 3) - nephrology consulted - possibly related to volume depletion, cardiomyopathy - receiving albumin and cautious IVF's - holding torsemide and Entresto HISTORY OF CVA - continue Coumadin, Plavix, Atorvastatin HISTORY OF PANCREATIC CANCER - s/p Whipple procedure - continue Pancreaze BPH - Urology consulted for mild urinary retention - no indication for barlow catheter at this time - continue tamsulosin DVT prophylaxis - Coumadin DISPO PT recommending acute rehab when medically stable Code status Full code as per patient Consultants: Critical care Nephrology Cardiology Urology Procedures: CT head Interval right parietal infarct. No acute intracranial findings. CT c-spine Findings of severe degenerative change combined with extensive posterior laminectomy defects. No acute process is appreciated. TTE * The study was technically limited. * The left ventricle is moderately dilated. * Left ventricular systolic function is moderate to severely reduced. * Ejection Fraction = 30-35%. * The right ventricular systolic function is normal. * There is mild mitral regurgitation. Current Inpatient Medications: Current Inpatient Medications Medications (Trade) Dose Ordered Sig/Quoc Route Start Time Stop Time Status Last Admin Dose Admin Nitroglycerin (Nitrostat Tab) 0.4 mg UD PRN SL 03/08/16 17:00 04/07/16 16:59 03/14/16 08:34 0.4 MG Glucose (Glucose 40% Gel) 15-30 GRAMS 15 GRAMS... UD PRN PO 03/08/16 17:15 04/07/16 17:14 Glucose (Glucose Chew Tab) 4-8 Tablets 4 Tabl... UD PRN PO 03/08/16 17:15 04/07/16 17:14 Dextrose (Dextrose 50% 50ML Syringe) 25-50ML OF 50% DW IV FOR... UD PRN IV 03/08/16 17:15 04/07/16 17:14 Glucagon (Glucagon Inj) 1 mg UD PRN SQ 03/08/16 17:15 04/07/16 17:14 Miscellaneous Information (Consult Glycemic Management Pharmacy) 1 ea UD PRN N/A 03/08/16 19:45 04/07/16 19:44 Atorvastatin Calcium (Lipitor Tab) 10 mg DAILY PO 03/09/16 09:00 04/08/16 08:59 03/14/16 09:23 10 MG Calcitriol (Rocaltrol Cap) 0.25 mcg DAILY PO 03/09/16 09:00 04/08/16 08:59 03/14/16 09:24 0.25 MCG Clopidogrel Bisulfate (plAVix TAB) 75 mg DAILY PO 03/09/16 09:00 04/08/16 08:59 Future hold 03/14/16 09:23 75 MG Fluticasone Propionate (Flonase Nasal [place]) 2 sprays DAILY RICHA 03/09/16 09:00 04/08/16 08:59 03/14/16 09:26 2 SPRAYS Levalbuterol (Xopenex Hfa Inhaler) 2 puffs Q4H PRN INH 03/08/16 17:30 04/07/16 17:29 Sertraline HCl (Zoloft Tab) 25 mg DAILY PO 03/09/16 09:00 04/08/16 08:59 03/14/16 09:24 25 MG Tamsulosin HCl (Flomax Cap) 0.4 mg DAILY PO 03/09/16 09:00 04/08/16 08:59 03/14/16 09:24 0.4 MG Miscellaneous Information (Order Awaiting Action) 1 ea QS N/A 03/08/16 19:45 04/07/16 19:44 Amylase/Lipase/ Protease (Pancreaze (Lipase 10,500U) Cap) 2 cap TIDM PO 03/09/16 07:15 04/08/16 07:29 03/14/16 07:52 2 CAP Amylase/Lipase/ Protease (Pancreaze (Lipase 10,500U) Cap) 1-2 CAPS WITH SNACKS UD PRN PO 03/08/16 19:45 04/07/16 19:44 Docusate Sodium (coLACE CAP) 100 mg BID PO 03/10/16 18:00 04/09/16 17:59 03/14/16 09:23 100 MG Polyethylene (Miralax Powder Packet) 17 gm HS PO 03/10/16 18:00 04/09/16 17:59 03/13/16 21:08 17 GM Polyethylene (Miralax Powder Packet) 17 gm Q6H PRN PO 03/10/16 21:15 04/09/16 21:14 03/13/16 10:48 17 GM Pantoprazole Sodium (Protonix Tab) 40 mg QAM PO 03/12/16 09:00 04/11/16 08:59 03/14/16 09:24 40 MG Acetaminophen/ Codeine Phosphate (Tylenol w/ Codeine #3 Tab) 1 tab for pain scale 4-6 2 t... Q4H PRN PO 03/12/16 09:30 04/11/16 09:29 03/14/16 07:56 2 TAB Acetaminophen (Tylenol Tab) 650 mg Q4H PRN PO 03/12/16 09:30 04/11/16 09:29 Insulin Aspart (novoLOG ASPART) SLIDING SCALE G... ACHS SC 03/12/16 16:00 04/11/16 15:59 03/13/16 21:11 1 UNITS Warfarin Sodium (Coumadin Tab) 2.5 mg DAILY@16 PO 03/13/16 16:00 04/12/16 15:59 Future hold 03/13/16 16:58 2.5 MG Ondansetron HCl 4 mg 4 mg Q4H PRN IV 03/14/16 08:45 04/13/16 08:44 03/14/16 08:34 4 MG Sodium Bicarbonate/ Sodium Chloride (Sodium Bicarbonate 8.4% Inj/1/2 Nss 1000ml) 1,075 ml @ 75 mls/hr [id number] IV 03/14/16 10:00 04/13/16 09:59 03/14/16 11:31 75 MLS/HR Amiodarone HCl 200 mg 200 mg BIDM PO 03/14/16 16:30 04/13/16 16:29 Amiodarone HCL/ Dextrose 200 ml @ 33.3 mls/hr Q6H1M IV 03/14/16 12:15 03/14/16 18:15 03/14/16 12:04 33.3 MLS/HR Amiodarone HCL/ Dextrose (Nexterone / D5w) 200 ml @ 16.7 mls/hr Q96H24C IV 03/14/16 18:16 04/13/16 18:15 Insulin Glargine (Lantus Solostar Pen) 8 unit PM SC 03/14/16 21:00 04/13/16 20:59
[2016-03-14] MEDS ORDERED: ALBUMIN HUMAN 25% 12.5 GM/50 ML VIAL IV STA (16:13)
[2016-03-14] MEDS: WARFARIN SOD 2.5 MG TAB PO SCH (16:33)
--- NOTE | 2016-03-14 17:25 | CRITICAL CARE PROGRESS NOTE ---
DATE: 03/14/2016 GENERAL INFORMATION: There were no acute events overnight. This morning, however, while we were on multidisciplinary rounds, the patient experienced some chest discomfort, which he describes as his typical indigestion. He had recently eaten breakfast and had received some pain medication. He started to vomit and was given sublingual nitroglycerin. EKG showed a paced rhythm with some ectopy. His pain resolved after emesis and troponins are being trended. When I talked to him this afternoon, he describes no chest pain whatsoever. He believes that the emesis was what made him feel better. I have discussed his care with the cardiology service and he was started on amiodarone infusion today. Additionally, he is still having postvoid residuals when he urinates. OBJECTIVE: VITAL SIGNS: Maximum temperature 37.1, heart rate 80-114, respiratory rate 16-18, and blood pressure 92-108/40s-60s. Oxygen saturation 98% on room air. 24-hour fluid balance positive 3.9 liters. GENERAL: He is awake, alert and sitting in a chair. He feels comfortable and is eating ice cream. NEUROLOGIC: He follows commands and moves all 4 extremities. LUNGS: Have some rales in the right base. No rhonchi or wheezes. HEART: Regular rate, irregular rhythm. No murmurs noted. CHEST: Shows the ecchymosis in the inferior clavicular area on the right. There is some tenderness to palpation as well. There is a dressing, which is clean, dry and intact. ABDOMEN: Limited due to the patient's seated position. EXTREMITIES: Warm. No edema. LABORATORY DATA: White blood cell count 11.64, hemoglobin 10.7, hematocrit 33, and platelets 104. Sodium 139, potassium 4.6, chloride 111, CO2 of 18, BUN 59, creatinine 3.3, calcium 8.4, magnesium 2.2, and phosphorus 3.8. Troponin 0.384. Blood sugar 100. INR 1.3. MEDICATIONS: Acetaminophen, Tylenol #3, amiodarone infusion, pancrease, atorvastatin, Rocalcitriol, Plavix, Colace, Flonase, NovoLog insulin, Lantus insulin, Xopenex, nitroglycerin, Zofran, Protonix, MiraLax, Zoloft, bicarbonate infusion, tamsulosin, and Coumadin. IMPRESSION: 1. Postop day #2 status post biventricular pacemaker placement. 2. Chronic atrial fibrillation, now on amiodarone infusion. 3. Acute kidney injury and post-void residual - inability to place barlow but still urinating. 4. Cardiomyopathy, ejection fraction 30%-35%. 5. Leukocytosis. 6. Decreasing platelets. 7. History of pancreatic cancer, status post Whipple. 8. Diabetes mellitus with adequate blood sugar control. 9. History of benign prostatic hypertrophy. 10. History of cerebrovascular accident. 11. History of coronary artery disease, status post stenting and on Plavix. 12. Hematuria, likely from trauma associated with barlow attempts. PLAN: NEUROLOGIC: Continue Tylenol or Tylenol #3 for analgesia. CARDIOVASCULAR: Continue to hold carvedilol and continue amiodarone infusion. Continue to hydrate with IV fluids and sodium bicarbonate. PULMONARY: No active issues. Encourage deep breathing. RENAL: Continue sodium bicarbonate infusion. Follow potassium and creatinine. GASTROINTESTINAL: Begin a diet. Maalox was ordered as q. 6 hours p.r.n. constipation. Consider Dulcolax suppository. Continue GI prophylaxis. HEMATOLOGY: Follow platelets and watch for any signs of bleeding. He was resumed on Coumadin yesterday and will follow the INR. GENITOURINARY: Many thanks to the urology service. No definite need for Barlow catheter at present time. There is certainly a risk for hematuria and bleeding since he is on the Plavix if instrumentation would be needed. Follow post-void residuals. INFECTIOUS DISEASE: No active issues. Follow the white blood cell count. Low threshold for blood cultures should he become febrile. Many thanks for asking me to see this patient. Please call me with any questions or concerns. If his blood pressure remains stable, I think he may be a candidate for transfer to telemetry later today. His blood pressure is softer since he has been on amiodarone. MTDD
[2016-03-14] MEDS: AMIODARONE / D5W 200 ML IV SCH (18:30)
[2016-03-14] MEDS: POLYETHYLENE (MIRALAX) 17 GM PACK PO SCH (19:38)
[2016-03-14] MEDS: INSULIN GLARGINE SOLOSTAR 100 UNITS/ML 3 ML PEN SC SCH (19:42)
[2016-03-14 20:25] LABS: BUN/CREATININE RATIO 15.7 (10-20); CALCIUM 7.8 mg/dl (8.5-10.1); CREATININE 3.7 mg/dl (0.60-1.40); POTASSIUM 4.9 mmol/L (3.5-5.1)
[2016-03-15] VITALS (16 sets, daily range): BP systolic 72–135; BP diastolic 42–87; PULSE 77–110; TEMP 36.4–37; O2SAT 91–100
[2016-03-15] MEDS: SODIUM BICARBONATE 8.4% INJ 75 MEQ in SODIUM CHLORIDE 0.45% 1000ML 1,000 ML IV SCH ×2 (01:51→16:40)
[2016-03-15] MEDS: AMIODARONE / D5W 200 ML IV SCH ×2 (04:39→16:43)
[2016-03-15 05:50] LABS: HEMATOCRIT 28.7 % (42-52); MEAN CELL VOLUME 90.8 fL (80-100); MEAN CORPUSCULAR HEMOGLOBIN 30.1 pg (25-34); MEAN CORPUSCULAR HGB CONC 33.1 g/dl (32-36); RED BLOOD COUNT 3.16 M/uL (4.7-6.1); WHITE BLOOD COUNT 8.99 K/uL (4.8-10.8)
[2016-03-15 05:58] LABS: INR 1.4 (0.9-1.1); PROTHROMBIN TIME (PATIENT) 15.3 SECONDS (9.0-12.0)
[2016-03-15 06:13] LABS: MEAN PLATELET VOLUME 10.5 fL (7.4-10.4); PLATELET COUNT 98 K/uL (130-400)
[2016-03-15 06:14] LABS: BASO % 0.1 %; BASO ABS # 0.01 K/uL (0-0.2); COMPLETE YES; ECHINOCYTES 1+; EOS % 1.9 %; IG% 0.3 %; LYMPH % 11.5 %; LYMPH ABS # 1.03 K/uL (1.2-3.4); MONO % 7.3 %; NEUT % 78.9 %; PLT ESTIMATE DECREASED
[2016-03-15 06:30] LABS: BUN/CREATININE RATIO 16.2 (10-20); CREATININE 4.1 mg/dl (0.60-1.40); MAGNESIUM 2.3 mg/dl (1.8-2.4); PHOSPHORUS 4.1 mg/dl (2.5-4.9); POTASSIUM 4.7 mmol/L (3.5-5.1)
[2016-03-15 06:43] LABS: CALCIUM 7.7 mg/dl (8.5-10.1)
[2016-03-15] MEDS: PANCREAZE (LIPASE 10,500U) CAP PO SCH ×3 (07:44→16:30)
[2016-03-15] MEDS: AMIODARONE 200 MG TAB PO SCH ×2 (07:44→16:40)
[2016-03-15] MEDS: ACETAMINOPHEN/CODEINE 300/30MG TAB PO PRN (07:45)
--- NOTE | 2016-03-15 08:02 | DIAGNOSTIC IMAGING REPORT ---
RENAL ULTRASOUND HISTORY: Renal ultrasound kaylin rule out hydro COMPARISON: None. FINDINGS: Right kidney: Maximum dimension 11.5 cm. Mild fullness right renal collecting system. 1.2 cm complex cystic nodule lower pole. Left kidney: 11.1 cm maximum dimension. No significant hydronephrosis. 1.5 cm mid pole cyst. 3 cm lateral cyst. 1 cm nonobstructing lower pole calcification Normal corticomedullary differentiation and cortical thickness. Bladder: No bladder wall thickening. The bilateral ureteral jets were identified. IMPRESSION: 1. there is mild hydronephrosis right kidney. 2. Several left renal cyst. 3. Complex cyst mid to lower aspect right kidney. Electronically signed by: Korey Aguero M.D. 03/15/2016 8:01 AM
--- NOTE | 2016-03-15 09:38 | Cardiology Follow-Up ---
Subjective General Date of Service: Mar 15, 2016. Chief Complaint: incomplete bladder emptying Pt evaluation today including: conversation w/ patient History of Present Illness The patient is a 80 year old male seen in follow up. Pt actually feels improved today. No additional chest pain or nausea since yesterday am. Creatinine continues to increase. Still with hypotension, SBPs mostly in the 80's , one recent reading overnight in the 70's. Ectopy improved on telemetry, on amiodarone infusion. Allergies Coded Allergies: Lisinopril (Verified Allergy, Unknown, RASH, 06/24/15) Spironolactone (Verified Allergy, Unknown, unkn, 06/24/15) Zolpidem (Verified Adverse Reaction, Unknown, HALLUCINATIONS, 06/24/15) Social History Smoking Status: Former Smoker Hx Tobacco Use In Past Year?: No Hx Alcohol Use - Type And Amou: No Hx Substance Use - Type And Am: No Problem List Medical Problems: (1) Acute bronchitis Status: Acute (2) Chronic renal disease Status: Acute (3) Elevated troponin Status: Acute (4) Influenza Status: Acute (5) Systolic congestive heart failure Status: Acute Physical Exam Vital Signs Last Vital Signs Documentation Date Time Temp Pulse Resp B/P Pulse Ox O2 Delivery O2 Flow Rate FiO2 03/15/16 06:56 85 24 102/77 100 Room Air 03/15/16 03:59 37.0 03/14/16 14:00 4.0 Physical Exam Constitutional: General Apperance: heathly-appearing Level of Distress: mild distress Psychiatric: Mental Status: active & alert Head: normocephalic Eyes: EOM: EOMI ENMT: normal ENT inspection, hearing grossly normal Neck: supple, no masses Lungs: Respiratory effort: no dyspnea, good air movement Auscultation: breath sounds normal, no wheezing Cardiovascular: Heart Auscultation: no murmurs, no rubs, no gallops, tachycardia, irregular rate rhythm Peripheral Pulses: Bruits: none appreciated Abdomen: Bowel Sounds: normal Inspection & Palpation: soft, no tenderness, guarding & rebound, no masses Musculoskeletal: normal strength (5/5 throughout) Neurologic: Cranial Nerves: grossly intact Sensation: grossly intact Assessment and Plan Assessment and Plan Impression: 80-year-old male 1. Admitted with syncope, noted to have persistent bradycardia which required transient transcutaneous pacing and support with dopamine -underwent biventricular pacemaker AICD , 03/12/16 2. History of chronic atrial fibrillation (also frequent PVCs) for which he is on chronic anticoagulation, history of past strokes 3. Chronic systolic heart failure, LVEF 30-35% 4. 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 JOSUÉ, on baseline stage IV chronic kidney disease -likely due to poor renal perfusion , low cardiac output state, hypovolemia 6. History of hyperkalemia 7. Underlying COPD Recommendations: Continue to hold beta blockers. Start dopamine , for inotropic and BP support. Continue amiodarone infusion. PICC line for dopamine, in R upper extremity, if not amenable to right side , need to avoid left arm given recent AICD due to risk of DVT. Can infuse low dose dopamine at 2.5 mcg/ kg/ min via peripheral IV pending PICC. Franky Morales, Laboratory Results Last 24 Hours Test 03/14/16 11:18 03/14/16 15:03 03/14/16 16:30 03/14/16 19:31 Bedside Glucose 105 mg/dl 162 mg/dl 166 mg/dl Sodium Level 138 mmol/L Potassium Level 5.1 mmol/L Chloride Level 110 mmol/L Carbon Dioxide Level 17 mmol/L Anion Gap 11.0 mmol/L Blood Urea Nitrogen 62 mg/dl Creatinine 3.50 mg/dl Est Creatinine Clear Calc Drug Dose 17.1 ml/min Estimated GFR () 17.9 Estimated GFR (Non- 15.5 BUN/Creatinine Ratio 17.6 Random Glucose 130 mg/dl Calcium Level 7.6 mg/dl Test 03/14/16 19:54 03/15/16 05:04 03/15/16 06:23 Sodium Level 136 mmol/L 137 mmol/L Potassium Level 4.9 mmol/L 4.7 mmol/L Chloride Level 107 mmol/L 107 mmol/L Carbon Dioxide Level 18 mmol/L 20 mmol/L Anion Gap 11.0 mmol/L 10.0 mmol/L Blood Urea Nitrogen 58 mg/dl 66 mg/dl Creatinine 3.70 mg/dl 4.10 mg/dl Est Creatinine Clear Calc Drug Dose 16.2 ml/min 14.6 ml/min Estimated GFR () 16.7 14.8 Estimated GFR (Non- 14.4 12.8 BUN/Creatinine Ratio 15.7 16.2 Random Glucose 162 mg/dl 141 mg/dl Calcium Level 7.8 mg/dl 7.7 mg/dl White Blood Count 8.99 K/uL Red Blood Count 3.16 M/uL Hemoglobin 9.5 g/dL Hematocrit 28.7 % Mean Corpuscular Volume 90.8 fL Mean Corpuscular Hemoglobin 30.1 pg Mean Corpuscular Hemoglobin Concent 33.1 g/dl Platelet Count 98 K/uL Mean Platelet Volume 10.5 fL Neutrophils (%) (Auto) 78.9 % Lymphocytes (%) (Auto) 11.5 % Monocytes (%) (Auto) 7.3 % Eosinophils (%) (Auto) 1.9 % Basophils (%) (Auto) 0.1 % Neutrophils # (Auto) 7.09 K/uL Lymphocytes # (Auto) 1.03 K/uL Monocytes # (Auto) 0.66 K/uL Eosinophils # (Auto) 0.17 K/uL Basophils # (Auto) 0.01 K/uL RDW Standard Deviation 56.9 fL RDW Coefficient of Variation 17.2 % Immature Granulocyte % (Auto) 0.3 % Immature Granulocyte # (Auto) 0.03 K/uL Platelet Estimate DECREASED Echinocytes 1+ Prothrombin Time 15.3 SECONDS Prothromb Time International Ratio 1.4 Phosphorus Level 4.1 mg/dl Magnesium Level 2.3 mg/dl Troponin I 0.248 ng/ml Bedside Glucose 146 mg/dl
[2016-03-15] MEDS: INSULIN ASPART 100 UNITS/ML 3 ML PEN SC SCH ×4 (10:13→21:00)
[2016-03-15] MEDS: FLUTICASONE PROPIONATE NA SPR 16 GM BTL NAE SCH (10:15)
[2016-03-15] MEDS: ATORVASTATIN 10 MG TAB PO SCH (10:15)
[2016-03-15] MEDS: TAMSULOSIN HCL 0.4 MG CAP PO SCH (10:15)
[2016-03-15] MEDS: DOCUSATE SODIUM 100 MG CAP PO SCH ×2 (10:15→21:35)
[2016-03-15] MEDS: CLOPIDOGREL BISULFATE 75 MG TAB PO SCH (10:16)
[2016-03-15] MEDS: PANTOprazole SOD 40 MG TAB PO SCH (10:16)
[2016-03-15] MEDS: CALCITRIOL 0.25 MCG CAP PO SCH (10:16)
[2016-03-15] MEDS: SERTRALINE HCL 50 MG TAB PO SCH (10:18)
--- NOTE | 2016-03-15 11:16 | Pharmacy Progress Note ---
Glycemic Control: Progress Nt Date of Service Mar 15, 2016. Scope Glycemic Pharmacist consulted by Dr Lo on 03/08/16 for glycemic control and to write orders per [facility] inpatient glycemic control protocol. Objective Accuchecks BSG (last 24hrs): Test 03/14/16 11:18 03/14/16 15:03 03/14/16 16:30 03/14/16 19:31 Bedside Glucose 105 mg/dl (70-99) 162 mg/dl (70-99) 166 mg/dl (70-99) Random Glucose 130 mg/dl (70-99) Test 03/14/16 19:54 03/15/16 05:04 03/15/16 06:23 Random Glucose 162 mg/dl (70-99) 141 mg/dl (70-99) Bedside Glucose 146 mg/dl (70-99) Laboratory Data (last 24hrs) Test 03/14/16 15:03 03/14/16 19:54 03/15/16 05:04 Anion Gap 11.0 mmol/L 11.0 mmol/L 10.0 mmol/L BUN/Creatinine Ratio 17.6 15.7 16.2 Blood Urea Nitrogen 62 mg/dl 58 mg/dl 66 mg/dl Creatinine 3.50 mg/dl 3.70 mg/dl 4.10 mg/dl Potassium Level 5.1 mmol/L 4.9 mmol/L 4.7 mmol/L Sodium Level 138 mmol/L 136 mmol/L 137 mmol/L White Blood Count 8.99 K/uL Red Blood Count 3.16 M/uL Hemoglobin 9.5 g/dL Hematocrit 28.7 % Mean Corpuscular Volume 90.8 fL Mean Corpuscular Hemoglobin 30.1 pg Mean Corpuscular Hemoglobin Concent 33.1 g/dl Platelet Count 98 K/uL Mean Platelet Volume 10.5 fL Neutrophils (%) (Auto) 78.9 % Lymphocytes (%) (Auto) 11.5 % Monocytes (%) (Auto) 7.3 % Eosinophils (%) (Auto) 1.9 % Basophils (%) (Auto) 0.1 % Neutrophils # (Auto) 7.09 K/uL Lymphocytes # (Auto) 1.03 K/uL Monocytes # (Auto) 0.66 K/uL Eosinophils # (Auto) 0.17 K/uL Basophils # (Auto) 0.01 K/uL Recent Pertinent Medications Outpatient Anti-diabetic Regimen: * NovoLog Mix 70/30 * 28 units SQ in the AM * 12 units SQ in the evening with supper * A1c = 8.2 % 03/09/16 The patient is currently receiving: * Basal insulin: Lantus 8 units SQ PM - hold dose if BSG is below 140mg/dL * Correctional Insulin: NovoLog Correction per scale AC/HS Goal Range: Low 140 mg/dL - High 180 mg/dL Correction Factor: 30 mg/dL/unit * Prandial insulin: Per carb ratio of 1 unit per 15 grams CHO consumed Risk Factors for Insulin Resistance: * Pressors: dopamine gtt * Renal: increasing serum creatinine can alter kinetics of insulin * IV fluids: amiodarone gtt(mixed in dextrose) * Recent Procedure: 03/[address] Carrington * Diet: T2DM/AHA/low K, 1500mL restriction, mechanical soft Assessment & Plan ASSESSMENT: * ADA & AACE recommend a goal blood sugar range 140-180 mg/dl for the majority of critically ill & non-critically ill patients. However, more stringent targets may be selected in individual cases. 03/09/16 * 80 y/o known type 2 diabetic who presents with near syncope and amanda cardia. * Hypoglycemia noted on admission * the patient has not been feeling well and has had decreased PO intake, however has continued his insulin administrations * BSGs remain below goal range despite minimal insulin administration * will continue to hold long acting Lantus at this time and only order correctional insulin * A1c- current * 8.2% may be slightly above goal for this patient, however would not aim much lower secondary to the Elements of Diabetes Care Scoring Scale and suggested glycemic targets based on this. 03/12/16 * Mr Redd received 24 units on 03/11 with BSGs ranging from 197-258mg/dL * likely he is somewhat basal insulin deficient since we were holding doses 2/ 2 hypoglycemia on admission - will resume basal insulin and likely see a trend downward of BSGs * NPO this AM for procedure with Dr. Carrington - likely diet will resume after this. * continue both basal and prandial insulins * slight tighten carb ratio at this time for better glycemic control 03/14/16 * BSGs darcy throughout the day yesterday after omitting AM Lantus for below goal values * After the PM dose of Lantus was given, BSGs have returned to normal, and now, below goal * continue evening Lantus with a slight decrease, but change parameter to hold if BSG is below 140mg/dL * Mr Redd is complaining of nausea and had emesis after breakfast today * likely BSGs will remain at or below goal while he is not tolerating PO intake well 03/15/16 * BSGs WNL throughout the day on 03/14 with only 9 units of insulin administered * continue reduced Lantus dose * If BSGs begin to rise again today * may consider increasing Lantus back to 10 units or tightening NovoLog parameters PLAN FOR INPATIENT GLYCEMIC CONTROL: * Continue to hold outpatient regimen at this time * mixed insulins are not typically used for inpatients secondary to changing PO status/difficulty to titrate * Lantus 8 units SQ q PM * hold dose if BSG is below 140mg/dL * Continue NovoLog AC and HS * Correction factor: 30mg/dL/unit * Carb ratio: 1 unit per 15 g of CHO consumed * Goal range: 140-180mg/dL per ADA recommendations * A1c - current * added to discharge instructions * Please note that the plan above was derived based on current level of insulin resistance and hospital stress. These recommendations are appropriate for inpatient admission only. Plan of care upon discharge will need to be reassessed to avoid potential outpatient hypo/hyperglycemia. Thank you.
[2016-03-15] MEDS: DOPamine 400MG / D5W 400 MG IV PRN (11:26)
--- NOTE | 2016-03-15 13:03 | Progress Note ---
Subjective Date of Service: Mar 15, 2016. Subjective Pt evaluation today including: conversation w/ patient, chart review, lab review Voiding: voiding difficulty Pt reports difficulty voiding this AM. No recorded PVRs this morning. Hematuria persists. Denies n/v, SOB, or chest pain this AM. Cr has risen to 4.10. UC&S and cytology are negative. Problem List Medical Problems: (1) Acute bronchitis Status: Acute (2) Chronic renal disease Status: Acute (3) Elevated troponin Status: Acute (4) Influenza Status: Acute (5) Systolic congestive heart failure Status: Acute Review of Systems Constitutional: No chills, No fever Respiratory: No shortness of breath Cardiac: No chest pain Abdomen: No nausea, No pain, No vomiting Male : + hematuria, + slowing stream Objective Vital Signs Date Time Temp Pulse Resp B/P Pulse Ox O2 Delivery O2 Flow Rate FiO2 03/15/16 12:00 Room Air 03/15/16 08:00 Room Air 03/15/16 08:00 Room Air 03/15/16 06:56 85 24 102/77 100 Room Air 03/15/16 04:59 90 20 79/45 97 Room Air 03/15/16 04:00 Room Air 03/15/16 03:59 37.0 95 16 80/43 91 Room Air 03/15/16 02:59 85 14 86/49 98 Room Air 03/15/16 01:59 77 14 80/42 93 Room Air 03/15/16 00:59 84 12 72/44 95 Room Air 03/15/16 00:01 Room Air 03/14/16 23:59 36.6 84 12 82/42 98 Room Air 03/14/16 22:00 98 16 85/53 100 Room Air 03/14/16 21:00 80 102/55 98 03/14/16 20:00 82 14 111/51 99 Room Air 03/14/16 20:00 100 Room Air 03/14/16 19:30 76 14 84/56 03/14/16 19:00 36.5 79 16 94/52 100 Room Air 03/14/16 16:00 98 Room Air 03/14/16 16:00 36.7 86 12 81/48 99 Room Air 03/14/16 14:42 100 03/14/16 14:00 36.7 93 20 101/52 100 Nasal Cannula 4.0 Physical Exam General Appearance: no apparent distress Eyes: normal inspection ENT: hearing grossly normal Neck: no JVD Respiratory/Chest: no respiratory distress, no accessory muscle use Cardiovascular: no JVD Extremities: normal inspection Neurologic/Psychiatric: alert, normal mood/affect, oriented x 3 Skin: normal color Laboratory Results Last 24 Hours Test 03/14/16 15:03 03/14/16 16:30 03/14/16 19:31 03/14/16 19:54 Sodium Level 138 mmol/L 136 mmol/L Potassium Level 5.1 mmol/L 4.9 mmol/L Chloride Level 110 mmol/L 107 mmol/L Carbon Dioxide Level 17 mmol/L 18 mmol/L Anion Gap 11.0 mmol/L 11.0 mmol/L Blood Urea Nitrogen 62 mg/dl 58 mg/dl Creatinine 3.50 mg/dl 3.70 mg/dl Est Creatinine Clear Calc Drug Dose 17.1 ml/min 16.2 ml/min Estimated GFR () 17.9 16.7 Estimated GFR (Non- 15.5 14.4 BUN/Creatinine Ratio 17.6 15.7 Random Glucose 130 mg/dl 162 mg/dl Calcium Level 7.6 mg/dl 7.8 mg/dl Bedside Glucose 162 mg/dl 166 mg/dl Test 03/15/16 05:04 03/15/16 06:23 03/15/16 11:28 White Blood Count 8.99 K/uL Red Blood Count 3.16 M/uL Hemoglobin 9.5 g/dL Hematocrit 28.7 % Mean Corpuscular Volume 90.8 fL Mean Corpuscular Hemoglobin 30.1 pg Mean Corpuscular Hemoglobin Concent 33.1 g/dl Platelet Count 98 K/uL Mean Platelet Volume 10.5 fL Neutrophils (%) (Auto) 78.9 % Lymphocytes (%) (Auto) 11.5 % Monocytes (%) (Auto) 7.3 % Eosinophils (%) (Auto) 1.9 % Basophils (%) (Auto) 0.1 % Neutrophils # (Auto) 7.09 K/uL Lymphocytes # (Auto) 1.03 K/uL Monocytes # (Auto) 0.66 K/uL Eosinophils # (Auto) 0.17 K/uL Basophils # (Auto) 0.01 K/uL RDW Standard Deviation 56.9 fL RDW Coefficient of Variation 17.2 % Immature Granulocyte % (Auto) 0.3 % Immature Granulocyte # (Auto) 0.03 K/uL Platelet Estimate DECREASED Echinocytes 1+ Prothrombin Time 15.3 SECONDS Prothromb Time International Ratio 1.4 Sodium Level 137 mmol/L Potassium Level 4.7 mmol/L Chloride Level 107 mmol/L Carbon Dioxide Level 20 mmol/L Anion Gap 10.0 mmol/L Blood Urea Nitrogen 66 mg/dl Creatinine 4.10 mg/dl Est Creatinine Clear Calc Drug Dose 14.6 ml/min Estimated GFR () 14.8 Estimated GFR (Non- 12.8 BUN/Creatinine Ratio 16.2 Random Glucose 141 mg/dl Calcium Level 7.7 mg/dl Phosphorus Level 4.1 mg/dl Magnesium Level 2.3 mg/dl Troponin I 0.248 ng/ml Bedside Glucose 146 mg/dl 141 mg/dl Assessment and Plan A/P: Incomplete bladder emptying, gross hematuria I have discussed pt's rising Cr and incomplete bladder emptying with crisis counselor Dr. Lau this morning. Remain in agreement to avoid barlow placement unless he develops complete urinary retention or worsening renal function. Pt is at high risk for persistent gross hematuria with barlow placement as he is currently on Plavix. Strict I&Os not needed at this time, and Dr. Lau does not feel a barlow will change/improve current clinical course at this time. Continue to monitor renal function and PVRs qshift. No further management at this time. Recall if pt develops complete urinary retention or barlow catheter felt necessary. Will sign off for now. Thanks for allowing us to participate in this pt's care.
--- NOTE | 2016-03-15 14:31 | DIAGNOSTIC IMAGING REPORT ---
CHEST ONE VIEW PORTABLE CLINICAL HISTORY: Right PICC placement. COMPARISON STUDY: Chest radiograph March 13, 2016. FINDINGS: The tip of the right PICC is slightly obscured by pacer leads but is likely within the distal SVC. A left subclavian pacer/AICD is in place. There is no pneumothorax or evidence of pulmonary edema. Cardiomegaly is unchanged. IMPRESSION: Tip of right PICC partially obscured by pacer leads but likely within the distal SVC. Electronically signed by: Torsten Dorsey M.D. 03/15/2016 2:29 PM
--- NOTE | 2016-03-15 15:18 | Nephrology Progress Note ---
Nephrology Progress Note Date of Service: Mar 15, 2016. Subjective 80 yo male admitted with bradycardia required a dopamine drip. initially had regis which improved with better bp support and dopamine. creatinine started to worsen and urine output decreasing. pt not uremic. comfortable. good appetite. no sob. started on iv amiodarone and recently started on dopamine again to help improve cardiac output and improve bp. continues on bicarb drip. Objective Date Time Temp Pulse Resp B/P Pulse Ox O2 Delivery O2 Flow Rate FiO2 03/15/16 12:00 Room Air 03/15/16 08:00 Room Air 03/15/16 08:00 Room Air 03/15/16 06:56 85 24 102/77 100 Room Air 03/15/16 04:59 90 20 79/45 97 Room Air 03/15/16 04:00 Room Air 03/15/16 03:59 37.0 95 16 80/43 91 Room Air 03/15/16 02:59 85 14 86/49 98 Room Air 03/15/16 01:59 77 14 80/42 93 Room Air 03/15/16 00:59 84 12 72/44 95 Room Air 03/15/16 00:01 Room Air 03/14/16 23:59 36.6 84 12 82/42 98 Room Air 03/14/16 22:00 98 16 85/53 100 Room Air 03/14/16 21:00 80 102/55 98 03/14/16 20:00 82 14 111/51 99 Room Air 03/14/16 20:00 100 Room Air 03/14/16 19:30 76 14 84/56 03/14/16 19:00 36.5 79 16 94/52 100 Room Air 03/14/16 16:00 98 Room Air 03/14/16 16:00 36.7 86 12 81/48 99 Room Air Physical Exam: General-aaox3 Eyes-no sceral icterus ENT-mmm Neck-supple Lungs-clear Heart-irregular/tachy Abdomen-bs+ s/nt/nd Extremities-no c/c/e Neuro-nonfocal Current Inpatient Medications Medications (Trade) Dose Ordered Sig/Quoc Route Start Time Stop Time Status Last Admin Dose Admin Nitroglycerin (Nitrostat Tab) 0.4 mg UD PRN SL 03/08/16 17:00 04/07/16 16:59 03/14/16 08:34 0.4 MG Glucose (Glucose 40% Gel) 15-30 GRAMS 15 GRAMS... UD PRN PO 03/08/16 17:15 04/07/16 17:14 Glucose (Glucose Chew Tab) 4-8 Tablets 4 Tabl... UD PRN PO 03/08/16 17:15 04/07/16 17:14 Dextrose (Dextrose 50% 50ML Syringe) 25-50ML OF 50% DW IV FOR... UD PRN IV 03/08/16 17:15 04/07/16 17:14 Glucagon (Glucagon Inj) 1 mg UD PRN SQ 03/08/16 17:15 04/07/16 17:14 Miscellaneous Information (Consult Glycemic Management Pharmacy) 1 ea UD PRN N/A 03/08/16 19:45 04/07/16 19:44 Atorvastatin Calcium (Lipitor Tab) 10 mg DAILY PO 03/09/16 09:00 04/08/16 08:59 03/15/16 10:15 10 MG Calcitriol (Rocaltrol Cap) 0.25 mcg DAILY PO 03/09/16 09:00 04/08/16 08:59 03/15/16 10:16 0.25 MCG Clopidogrel Bisulfate (plAVix TAB) 75 mg DAILY PO 03/09/16 09:00 04/08/16 08:59 Future hold 03/15/16 10:16 75 MG Fluticasone Propionate (Flonase Nasal [place]) 2 sprays DAILY RICHA 03/09/16 09:00 04/08/16 08:59 03/15/16 10:15 2 SPRAYS Levalbuterol (Xopenex Hfa Inhaler) 2 puffs Q4H PRN INH 03/08/16 17:30 04/07/16 17:29 Sertraline HCl (Zoloft Tab) 25 mg DAILY PO 03/09/16 09:00 04/08/16 08:59 03/15/16 10:18 25 MG Tamsulosin HCl (Flomax Cap) 0.4 mg DAILY PO 03/09/16 09:00 04/08/16 08:59 03/15/16 10:15 0.4 MG Miscellaneous Information (Order Awaiting Action) 1 ea QS N/A 03/08/16 19:45 04/07/16 19:44 Amylase/Lipase/ Protease (Pancreaze (Lipase 10,500U) Cap) 2 cap TIDM PO 03/09/16 07:15 04/08/16 07:29 03/15/16 11:34 2 CAP Amylase/Lipase/ Protease (Pancreaze (Lipase 10,500U) Cap) 1-2 CAPS WITH SNACKS UD PRN PO 03/08/16 19:45 04/07/16 19:44 Docusate Sodium (coLACE CAP) 100 mg BID PO 03/10/16 18:00 04/09/16 17:59 03/15/16 10:15 100 MG Polyethylene (Miralax Powder Packet) 17 gm HS PO 03/10/16 18:00 04/09/16 17:59 03/14/16 19:38 17 GM Polyethylene (Miralax Powder Packet) 17 gm Q6H PRN PO 03/10/16 21:15 04/09/16 21:14 03/13/16 10:48 17 GM Pantoprazole Sodium (Protonix Tab) 40 mg QAM PO 03/12/16 09:00 04/11/16 08:59 03/15/16 10:16 40 MG Acetaminophen/ Codeine Phosphate (Tylenol w/ Codeine #3 Tab) 1 tab for pain scale 4-6 2 t... Q4H PRN PO 03/12/16 09:30 04/11/16 09:29 03/15/16 07:45 2 TAB Acetaminophen (Tylenol Tab) 650 mg Q4H PRN PO 03/12/16 09:30 04/11/16 09:29 Insulin Aspart (novoLOG ASPART) SLIDING SCALE G... ACHS SC 03/12/16 16:00 04/11/16 15:59 03/15/16 12:03 2 UNITS Warfarin Sodium (Coumadin Tab) 2.5 mg DAILY@16 PO 03/13/16 16:00 04/12/16 15:59 Future hold 03/14/16 16:33 2.5 MG Ondansetron HCl 4 mg 4 mg Q4H PRN IV 03/14/16 08:45 04/13/16 08:44 03/14/16 08:34 4 MG Sodium Bicarbonate/ Sodium Chloride (Sodium Bicarbonate 8.4% Inj/1/2 Nss 1000ml) 1,075 ml @ 75 mls/hr [id number] IV 03/14/16 10:00 04/13/16 09:59 03/15/16 01:51 75 MLS/HR Amiodarone HCl 200 mg 200 mg BIDM PO 03/14/16 16:30 04/13/16 16:29 03/15/16 07:44 200 MG Amiodarone HCL/ Dextrose (Nexterone / D5w) 200 ml @ 16.7 mls/hr [id number] IV 03/14/16 18:16 04/13/16 18:15 03/15/16 04:39 16.7 MLS/HR Insulin Glargine 8 unit 8 unit PM SC 03/14/16 21:00 04/13/16 20:59 03/14/16 19:42 8 UNIT Dopamine HCl/ Dextrose (DOPamine 400MG / D5W) 250 ml @ 0 mls/hr Q0M PRN IV 03/15/16 09:45 04/14/16 09:44 03/15/16 11:26 8.2 MLS/HR Last 24 Hours Test 03/14/16 15:03 03/14/16 16:30 03/14/16 19:31 03/14/16 19:54 Sodium Level 138 mmol/L 136 mmol/L Potassium Level 5.1 mmol/L 4.9 mmol/L Chloride Level 110 mmol/L 107 mmol/L Carbon Dioxide Level 17 mmol/L 18 mmol/L Anion Gap 11.0 mmol/L 11.0 mmol/L Blood Urea Nitrogen 62 mg/dl 58 mg/dl Creatinine 3.50 mg/dl 3.70 mg/dl Est Creatinine Clear Calc Drug Dose 17.1 ml/min 16.2 ml/min Estimated GFR () 17.9 16.7 Estimated GFR (Non- 15.5 14.4 BUN/Creatinine Ratio 17.6 15.7 Random Glucose 130 mg/dl 162 mg/dl Calcium Level 7.6 mg/dl 7.8 mg/dl Bedside Glucose 162 mg/dl 166 mg/dl Test 03/15/16 05:04 03/15/16 06:23 03/15/16 11:28 White Blood Count 8.99 K/uL Red Blood Count 3.16 M/uL Hemoglobin 9.5 g/dL Hematocrit 28.7 % Mean Corpuscular Volume 90.8 fL Mean Corpuscular Hemoglobin 30.1 pg Mean Corpuscular Hemoglobin Concent 33.1 g/dl Platelet Count 98 K/uL Mean Platelet Volume 10.5 fL Neutrophils (%) (Auto) 78.9 % Lymphocytes (%) (Auto) 11.5 % Monocytes (%) (Auto) 7.3 % Eosinophils (%) (Auto) 1.9 % Basophils (%) (Auto) 0.1 % Neutrophils # (Auto) 7.09 K/uL Lymphocytes # (Auto) 1.03 K/uL Monocytes # (Auto) 0.66 K/uL Eosinophils # (Auto) 0.17 K/uL Basophils # (Auto) 0.01 K/uL RDW Standard Deviation 56.9 fL RDW Coefficient of Variation 17.2 % Immature Granulocyte % (Auto) 0.3 % Immature Granulocyte # (Auto) 0.03 K/uL Platelet Estimate DECREASED Echinocytes 1+ Prothrombin Time 15.3 SECONDS Prothromb Time International Ratio 1.4 Sodium Level 137 mmol/L Potassium Level 4.7 mmol/L Chloride Level 107 mmol/L Carbon Dioxide Level 20 mmol/L Anion Gap 10.0 mmol/L Blood Urea Nitrogen 66 mg/dl Creatinine 4.10 mg/dl Est Creatinine Clear Calc Drug Dose 14.6 ml/min Estimated GFR () 14.8 Estimated GFR (Non- 12.8 BUN/Creatinine Ratio 16.2 Random Glucose 141 mg/dl Calcium Level 7.7 mg/dl Phosphorus Level 4.1 mg/dl Magnesium Level 2.3 mg/dl Troponin I 0.248 ng/ml Bedside Glucose 146 mg/dl 141 mg/dl Assessment & Plan [id number] worsening and on iv amio and started on dopamine. bp is better. there has been some more excitability on tele with the dopamine but I agree that the benefits outweight the risks. unfortunately urine output is trending down. did do renal us and shows mild hydro but do not feel the hydro is contributing significantly to the regis. no indication for emergent dialysis at this time. creatinine though likely to continue to worsen over the next several days and may need temporary dialysis in the future if creatinine continues to worsen. acidosis-bicarb levels are improving. on 1/2ns with 75 of bicarb and tolerating the fluids well. will give one gram of calcium gluconate with the excitability and check an ionized calcium tomorrow. .
[2016-03-15] MEDS ORDERED: CALCIUM GLUCONATE 10% 1,000 MG in SODIUM CHLORIDE 0.9% 50ML 50 ML IV ONE (15:30)
[2016-03-15] MEDS: WARFARIN SOD 2.5 MG TAB PO SCH (16:39)
[2016-03-15] MEDS: ONDANSETRON INJ 2 MG/ML 2 ML VIAL IV PRN (16:39)
--- NOTE | 2016-03-15 17:13 | Progress Note ---
Medicine Progress Note Date & Time of Visit: Mar 15, 2016 at 17:04. Subjective Patient seen and examined. Feeling well today. Denies chest pain, SOB. Objective Last 8 Hrs Date Time Temp Pulse Resp B/P Pulse Ox O2 Delivery O2 Flow Rate FiO2 03/15/16 12:00 Room Air Physical Exam: General-awake; alert; NAD Eyes-EOMI; no scleral icterus Neck-no stridor; trachea midline Lungs-CTA bilaterally; no wheezes/crackles Heart-irregularly irregular Abdomen-soft; NTND; nBS Extremities-2+ peripheral pulses; no c/c/e Neuro-no gross focal deficits Laboratory Results: Last 24 Hours Test 03/14/16 19:31 03/14/16 19:54 03/15/16 05:04 03/15/16 06:23 Bedside Glucose 166 mg/dl 146 mg/dl Sodium Level 136 mmol/L 137 mmol/L Potassium Level 4.9 mmol/L 4.7 mmol/L Chloride Level 107 mmol/L 107 mmol/L Carbon Dioxide Level 18 mmol/L 20 mmol/L Anion Gap 11.0 mmol/L 10.0 mmol/L Blood Urea Nitrogen 58 mg/dl 66 mg/dl Creatinine 3.70 mg/dl 4.10 mg/dl Est Creatinine Clear Calc Drug Dose 16.2 ml/min 14.6 ml/min Estimated GFR () 16.7 14.8 Estimated GFR (Non- 14.4 12.8 BUN/Creatinine Ratio 15.7 16.2 Random Glucose 162 mg/dl 141 mg/dl Calcium Level 7.8 mg/dl 7.7 mg/dl White Blood Count 8.99 K/uL Red Blood Count 3.16 M/uL Hemoglobin 9.5 g/dL Hematocrit 28.7 % Mean Corpuscular Volume 90.8 fL Mean Corpuscular Hemoglobin 30.1 pg Mean Corpuscular Hemoglobin Concent 33.1 g/dl Platelet Count 98 K/uL Mean Platelet Volume 10.5 fL Neutrophils (%) (Auto) 78.9 % Lymphocytes (%) (Auto) 11.5 % Monocytes (%) (Auto) 7.3 % Eosinophils (%) (Auto) 1.9 % Basophils (%) (Auto) 0.1 % Neutrophils # (Auto) 7.09 K/uL Lymphocytes # (Auto) 1.03 K/uL Monocytes # (Auto) 0.66 K/uL Eosinophils # (Auto) 0.17 K/uL Basophils # (Auto) 0.01 K/uL RDW Standard Deviation 56.9 fL RDW Coefficient of Variation 17.2 % Immature Granulocyte % (Auto) 0.3 % Immature Granulocyte # (Auto) 0.03 K/uL Platelet Estimate DECREASED Echinocytes 1+ Prothrombin Time 15.3 SECONDS Prothromb Time International Ratio 1.4 Phosphorus Level 4.1 mg/dl Magnesium Level 2.3 mg/dl Troponin I 0.248 ng/ml Test 03/15/16 11:28 03/15/16 16:54 Bedside Glucose 141 mg/dl 146 mg/dl Assessment & Plan 80 year old male with history of CAD, A fib on Coumadin, 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 Found to have symptomatic bradycardia, sick sinus syndrome, s/p biventricular pacemaker 03/12/16. FALL, PRESYNCOPE - likely 2/2 symptomatic bradycardia - Cardiology consulted - initially required pressure support with dopamine drip - now back on dopamine for pressure support - also had temporary pacemaker - s/p biventricular pacemaker 03/12/16 - started on amiodarone for ectopy HISTORY OF NON ISCHEMIC CARDIOMYOPATHY - continue atorvastatin, clopidogrel - holding carvedilol, torsemide and Entresto given low-normal pressures and JOSUÉ A FIB - Coumadin initially held for supratherapeutic INR - Coumadin restarted post-procedure - started on Amiodarone DM 2 - glycemic pharmacy consulted - continue insulin therapy Acute renal insufficiency (baseline CKD stage 3) - nephrology consulted - possibly related to volume depletion, cardiomyopathy - received albumin - receiving IVF's with sodium bicarbonate - holding torsemide and Entresto - renal ultrasound with mild hydronephrosis, not thought to be contributory HISTORY OF CVA - continue Coumadin, Plavix, Atorvastatin HISTORY OF PANCREATIC CANCER - s/p Whipple procedure - continue Pancreaze BPH - Urology consulted for mild urinary retention - no indication for barlow catheter at this time - continue tamsulosin DVT prophylaxis - Coumadin DISPO PT recommending acute rehab when medically stable Code status Full code as per patient Consultants: Critical care Nephrology Cardiology Urology Procedures: CT head Interval right parietal infarct. No acute intracranial findings. CT c-spine Findings of severe degenerative change combined with extensive posterior laminectomy defects. No acute process is appreciated. TTE * The study was technically limited. * The left ventricle is moderately dilated. * Left ventricular systolic function is moderate to severely reduced. * Ejection Fraction = 30-35%. * The right ventricular systolic function is normal. * There is mild mitral regurgitation. Renal ultrasound 1. there is mild hydronephrosis right kidney. 2. Several left renal cyst. 3. Complex cyst mid to lower aspect right kidney. Current Inpatient Medications: Current Inpatient Medications Medications (Trade) Dose Ordered Sig/Quoc Route Start Time Stop Time Status Last Admin Dose Admin Nitroglycerin (Nitrostat Tab) 0.4 mg UD PRN SL 03/08/16 17:00 04/07/16 16:59 03/14/16 08:34 0.4 MG Glucose (Glucose 40% Gel) 15-30 GRAMS 15 GRAMS... UD PRN PO 03/08/16 17:15 04/07/16 17:14 Glucose (Glucose Chew Tab) 4-8 Tablets 4 Tabl... UD PRN PO 03/08/16 17:15 04/07/16 17:14 Dextrose (Dextrose 50% 50ML Syringe) 25-50ML OF 50% DW IV FOR... UD PRN IV 03/08/16 17:15 04/07/16 17:14 Glucagon (Glucagon Inj) 1 mg UD PRN SQ 03/08/16 17:15 04/07/16 17:14 Miscellaneous Information (Consult Glycemic Management Pharmacy) 1 ea UD PRN N/A 03/08/16 19:45 04/07/16 19:44 Atorvastatin Calcium (Lipitor Tab) 10 mg DAILY PO 03/09/16 09:00 04/08/16 08:59 03/15/16 10:15 10 MG Calcitriol (Rocaltrol Cap) 0.25 mcg DAILY PO 03/09/16 09:00 04/08/16 08:59 03/15/16 10:16 0.25 MCG Clopidogrel Bisulfate (plAVix TAB) 75 mg DAILY PO 03/09/16 09:00 04/08/16 08:59 Future hold 03/15/16 10:16 75 MG Fluticasone Propionate (Flonase Nasal [place]) 2 sprays DAILY RICHA 03/09/16 09:00 04/08/16 08:59 03/15/16 10:15 2 SPRAYS Levalbuterol (Xopenex Hfa Inhaler) 2 puffs Q4H PRN INH 03/08/16 17:30 04/07/16 17:29 Sertraline HCl (Zoloft Tab) 25 mg DAILY PO 03/09/16 09:00 04/08/16 08:59 03/15/16 10:18 25 MG Tamsulosin HCl (Flomax Cap) 0.4 mg DAILY PO 03/09/16 09:00 04/08/16 08:59 03/15/16 10:15 0.4 MG Miscellaneous Information (Order Awaiting Action) 1 ea QS N/A 03/08/16 19:45 04/07/16 19:44 Amylase/Lipase/ Protease (Pancreaze (Lipase 10,500U) Cap) 2 cap TIDM PO 03/09/16 07:15 04/08/16 07:29 03/15/16 11:34 2 CAP Amylase/Lipase/ Protease (Pancreaze (Lipase 10,500U) Cap) 1-2 CAPS WITH SNACKS UD PRN PO 03/08/16 19:45 04/07/16 19:44 Docusate Sodium (coLACE CAP) 100 mg BID PO 03/10/16 18:00 04/09/16 17:59 03/15/16 10:15 100 MG Polyethylene (Miralax Powder Packet) 17 gm HS PO 03/10/16 18:00 04/09/16 17:59 03/14/16 19:38 17 GM Polyethylene (Miralax Powder Packet) 17 gm Q6H PRN PO 03/10/16 21:15 04/09/16 21:14 03/13/16 10:48 17 GM Pantoprazole Sodium (Protonix Tab) 40 mg QAM PO 03/12/16 09:00 04/11/16 08:59 03/15/16 10:16 40 MG Acetaminophen/ Codeine Phosphate (Tylenol w/ Codeine #3 Tab) 1 tab for pain scale 4-6 2 t... Q4H PRN PO 03/12/16 09:30 04/11/16 09:29 03/15/16 07:45 2 TAB Acetaminophen (Tylenol Tab) 650 mg Q4H PRN PO 03/12/16 09:30 04/11/16 09:29 Insulin Aspart (novoLOG ASPART) SLIDING SCALE G... ACHS SC 03/12/16 16:00 04/11/16 15:59 03/15/16 12:03 2 UNITS Warfarin Sodium (Coumadin Tab) 2.5 mg DAILY@16 PO 03/13/16 16:00 04/12/16 15:59 Future hold 03/15/16 16:39 2.5 MG Ondansetron HCl 4 mg 4 mg Q4H PRN IV 03/14/16 08:45 04/13/16 08:44 03/15/16 16:39 4 MG Sodium Bicarbonate/ Sodium Chloride (Sodium Bicarbonate 8.4% Inj/1/2 Nss 1000ml) 1,075 ml @ 75 mls/hr [id number] IV 03/14/16 10:00 04/13/16 09:59 03/15/16 16:40 75 MLS/HR Amiodarone HCl 200 mg 200 mg BIDM PO 03/14/16 16:30 04/13/16 16:29 03/15/16 16:40 200 MG Amiodarone HCL/ Dextrose (Nexterone / D5w) 200 ml @ 16.7 mls/hr [id number] IV 03/14/16 18:16 04/13/16 18:15 03/15/16 16:43 16.7 MLS/HR Insulin Glargine 8 unit 8 unit PM SC 03/14/16 21:00 04/13/16 20:59 03/14/16 19:42 8 UNIT Dopamine HCl/ Dextrose (DOPamine 400MG / D5W) 250 ml @ 0 mls/hr Q0M PRN IV 03/15/16 09:45 04/14/16 09:44 03/15/16 11:26 8.2 MLS/HR
[2016-03-15] MEDS ORDERED: PROCHLORPERAZINE IV ONE (19:00)
--- NOTE | 2016-03-15 19:46 | DIAGNOSTIC IMAGING REPORT ---
ABDOMEN 2 VIEWS CLINICAL HISTORY: nausea, vomiting, constipation COMPARISON STUDY: 06/19/2013 FINDINGS: No free air is visualized. There are no transition zones to indicate a high-grade bowel obstruction. There are postsurgical changes of a right hip arthroplasty. There are surgical clips within the upper abdomen. There are granular calcifications within the left quadrants, possibly related to enteric contents. Degenerative changes are present within the spine. IMPRESSION: No evidence of bowel obstruction. No evidence of free air. Electronically signed by: Mohsen Dobbs M.D. 03/15/2016 7:44 PM
--- NOTE | 2016-03-15 19:49 | CRITICAL CARE PROGRESS NOTE ---
DATE: 03/15/2016 SUBJECTIVE: The patient's blood pressure was low overnight and his urine output had not increased despite IV fluids and volume expansion. During the day today, he was placed on a dopamine infusion and he continues on the amiodarone infusion. He continues to have hematuria and only use the urinal once during the day today. His postvoid residual was less than 200 mL. This evening, he became very nauseated and vomited digested food several times. He was given Zofran and complains of some bilateral lower quadrant pain. He reports that he sometimes vomits at home, but he feels like this may be different. He continues to receive his Plavix and his Coumadin. OBJECTIVE: VITAL SIGNS: Maximum temperature 37, heart rate 80s-90s, respiratory rate 12-24, blood pressure not documented since this morning at 7:00 a.m. I have seen in the low 100s. Oxygen saturation 100% on room air. A 24-hour fluid balance positive 2.7 liters. He had a bowel movement last night and this morning. GENERAL: He is awake but looking tired. LUNGS: Decreased breath sounds in the bases and throughout but more so in the bases. No rales, rhonchi or wheezes. HEART: Irregular. I do not hear any murmurs. Chest shows there to be a piece of gauze over the incision site of the pacemaker. The area surrounding it is firm and ecchymotic. ABDOMEN: Mildly distended and tender inferiorly, no rebound or guarding. Bowel sounds are hypoactive. EXTREMITIES: Somewhat cool but there is no edema. LABORATORY DATA: White blood cell count 8.99, hemoglobin 9.5, hematocrit 28.7, platelets 98. Sodium 137, potassium 4.7, chloride 107, CO2 20, BUN 66, creatinine 4.1, blood sugar 141, calcium 7.7, phosphorus 4.1. Troponin 2.48. MEDICATIONS: Reviewed. IMAGING DATA: Chest x-ray from today was reviewed and shows no definite pulmonary edema. PICC line is in place. Renal ultrasound from today also shows mild right hydronephrosis and bilateral renal cysts. IMPRESSION: 1. Postop day #3 status post pacemaker placement. 2. Chronic atrial fibrillation and some hypotension, improved with the dopamine. His ectopy is also improved with the amiodarone. 3. Cardiomyopathy, ejection fraction 30-35% 4. Acute kidney injury likely from ATN. Cr has not peaked and urine output is poor. 4. Nausea - ? diabetic gastroparesis. 5. Diabetes mellitus with satisfactory blood sugar control. 6. Hematuria and inability to place Ruff or Coude catheter. 7. Leukocytosis, improved. 8. Decreasing platelets. 9. History of cerebrovascular accident. 10. History of coronary artery disease status post stenting and he remains on Plavix. PLAN: 1. I have ordered abdominal x-ray, rule out obstruction. 2. I gave him 1 small dose of Compazine. 3. Continue amiodarone and dopamine and hope it helps his renal perfusion. 4. Follow chemistries and watch for hyperkalemia. Continue sodium bicarbonate infusion. 5. Continue postvoid residuals after each time he urinates. 6. Occupational therapy was ordered. He is getting PT. 7. Follow platelets carefully. 8. Urology is still following in the event that he should require a Ruff. 9. Continue bowel regimen. Please call me with any questions or concerns. MTDD
--- NOTE | 2016-03-15 20:29 | CRITICAL CARE PROGRESS NOTE ---
DATE: 03/15/2016 NO DICTATION.
[2016-03-15 21:04] LABS: BUN/CREATININE RATIO 15.4 (10-20); CREATININE 4.5 mg/dl (0.60-1.40); POTASSIUM 4.5 mmol/L (3.5-5.1)
[2016-03-15 21:13] LABS: CALCIUM 7.9 mg/dl (8.5-10.1)
[2016-03-15] MEDS: INSULIN GLARGINE SOLOSTAR 100 UNITS/ML 3 ML PEN SC SCH (21:34)
[2016-03-15] MEDS: POLYETHYLENE (MIRALAX) 17 GM PACK PO SCH (21:34)
[2016-03-16] VITALS (26 sets, daily range): BP systolic 84–125; BP diastolic 38–81; PULSE 70–92; TEMP 36.9–37.7; O2SAT 90–96
[2016-03-16] MEDS: AMIODARONE / D5W 200 ML IV SCH ×2 (04:16→15:24)
[2016-03-16 05:42] LABS: HEMATOCRIT 28.3 % (42-52); MEAN CELL VOLUME 88.4 fL (80-100); MEAN CORPUSCULAR HEMOGLOBIN 29.7 pg (25-34); MEAN CORPUSCULAR HGB CONC 33.6 g/dl (32-36); MEAN PLATELET VOLUME 9.7 fL (7.4-10.4); PLATELET COUNT 108 K/uL (130-400); WHITE BLOOD COUNT 10.83 K/uL (4.8-10.8)
[2016-03-16 05:52] LABS: INR 1.9 (0.9-1.1); PROTHROMBIN TIME (PATIENT) 21.1 SECONDS (9.0-12.0)
[2016-03-16] MEDS: SODIUM BICARBONATE 8.4% INJ 75 MEQ in SODIUM CHLORIDE 0.45% 1000ML 1,000 ML IV SCH (05:55)
[2016-03-16] MEDS: ACETAMINOPHEN/CODEINE 300/30MG TAB PO PRN (05:57)
[2016-03-16 06:23] LABS: BUN/CREATININE RATIO 13.7 (10-20); MAGNESIUM 2.2 mg/dl (1.8-2.4); PHOSPHORUS 4.4 mg/dl (2.5-4.9); POTASSIUM 4.4 mmol/L (3.5-5.1)
[2016-03-16 06:30] LABS: CALCIUM 7.5 mg/dl (8.5-10.1); CREATININE 4.9 mg/dl (0.60-1.40)
[2016-03-16] MEDS: INSULIN ASPART 100 UNITS/ML 3 ML PEN SC SCH ×4 (07:40→21:00)
[2016-03-16] MEDS: PANCREAZE (LIPASE 10,500U) CAP PO SCH ×3 (07:47→16:50)
--- NOTE | 2016-03-16 07:48 | Nephrology Progress Note ---
Nephrology Progress Note Date of Service: Mar 16, 2016. Subjective 80 yo male with regis/atn with anuric/oliguria. has 400 cc via bladder scan. difficult to catheterize. pt did have nausea and vomiting last night. still alert and eating well with no sob and no chest pain. pt feels he needs to have a bm. Objective Date Time Temp Pulse Resp B/P Pulse Ox O2 Delivery O2 Flow Rate FiO2 03/16/16 05:59 80 17 110/61 93 Room Air 03/16/16 05:09 87 19 103/38 93 Room Air 03/16/16 04:00 Room Air 03/16/16 03:59 37.1 80 14 111/55 96 Room Air 03/16/16 02:59 80 12 107/55 90 Room Air 03/16/16 01:59 84 12 115/44 91 Room Air 03/16/16 00:59 76 14 103/49 95 Room Air 03/16/16 00:01 Room Air 03/16/16 00:00 37.7 82 16 104/52 93 Room Air 03/15/16 22:59 85 14 126/46 93 Room Air 03/15/16 21:59 93 14 120/51 95 Room Air 03/15/16 20:59 95 16 117/43 94 Room Air 03/15/16 20:00 Room Air 03/15/16 19:59 36.8 97 14 135/63 93 Room Air 03/15/16 18:00 36.4 105 16 115/87 98 03/15/16 16:00 36.6 110 22 116/64 98 03/15/16 16:00 Room Air 03/15/16 14:00 36.6 96 17 127/49 100 03/15/16 12:00 Room Air 03/15/16 11:59 36.5 97 15 113/64 98 03/15/16 09:59 36.5 89 7 98/57 96 03/15/16 08:00 Room Air 03/15/16 08:00 36.5 84 22 /51 91 03/15/16 08:00 Room Air Physical Exam: General-aaox3 Eyes-no sceral icterus ENT-mmm Neck-supple Lungs-cta Heart-irregular, chest wall with bruising with recent defibrillator Abdomen-bs+ s/nt/nd Extremities-no c/c/e Neuro-nonfocal Current Inpatient Medications Medications (Trade) Dose Ordered Sig/Quoc Route Start Time Stop Time Status Last Admin Dose Admin Nitroglycerin (Nitrostat Tab) 0.4 mg UD PRN SL 03/08/16 17:00 04/07/16 16:59 03/14/16 08:34 0.4 MG Glucose (Glucose 40% Gel) 15-30 GRAMS 15 GRAMS... UD PRN PO 03/08/16 17:15 04/07/16 17:14 Glucose (Glucose Chew Tab) 4-8 Tablets 4 Tabl... UD PRN PO 03/08/16 17:15 04/07/16 17:14 Dextrose (Dextrose 50% 50ML Syringe) 25-50ML OF 50% DW IV FOR... UD PRN IV 03/08/16 17:15 04/07/16 17:14 Glucagon (Glucagon Inj) 1 mg UD PRN SQ 03/08/16 17:15 04/07/16 17:14 Miscellaneous Information (Consult Glycemic Management Pharmacy) 1 ea UD PRN N/A 03/08/16 19:45 04/07/16 19:44 Atorvastatin Calcium (Lipitor Tab) 10 mg DAILY PO 03/09/16 09:00 04/08/16 08:59 03/15/16 10:15 10 MG Calcitriol (Rocaltrol Cap) 0.25 mcg DAILY PO 03/09/16 09:00 04/08/16 08:59 03/15/16 10:16 0.25 MCG Clopidogrel Bisulfate (plAVix TAB) 75 mg DAILY PO 03/09/16 09:00 04/08/16 08:59 Future hold 03/15/16 10:16 75 MG Fluticasone Propionate (Flonase Nasal [place]) 2 sprays DAILY RICHA 03/09/16 09:00 04/08/16 08:59 03/15/16 10:15 2 SPRAYS Levalbuterol (Xopenex Hfa Inhaler) 2 puffs Q4H PRN INH 03/08/16 17:30 04/07/16 17:29 Sertraline HCl (Zoloft Tab) 25 mg DAILY PO 03/09/16 09:00 04/08/16 08:59 03/15/16 10:18 25 MG Tamsulosin HCl (Flomax Cap) 0.4 mg DAILY PO 03/09/16 09:00 04/08/16 08:59 03/15/16 10:15 0.4 MG Miscellaneous Information (Order Awaiting Action) 1 ea QS N/A 03/08/16 19:45 04/07/16 19:44 Amylase/Lipase/ Protease (Pancreaze (Lipase 10,500U) Cap) 2 cap TIDM PO 03/09/16 07:15 04/08/16 07:29 03/15/16 11:34 2 CAP Amylase/Lipase/ Protease (Pancreaze (Lipase 10,500U) Cap) 1-2 CAPS WITH SNACKS UD PRN PO 03/08/16 19:45 04/07/16 19:44 Docusate Sodium (coLACE CAP) 100 mg BID PO 03/10/16 18:00 04/09/16 17:59 03/15/16 10:15 100 MG Polyethylene (Miralax Powder Packet) 17 gm HS PO 03/10/16 18:00 04/09/16 17:59 03/14/16 19:38 17 GM Polyethylene (Miralax Powder Packet) 17 gm Q6H PRN PO 03/10/16 21:15 04/09/16 21:14 03/13/16 10:48 17 GM Pantoprazole Sodium (Protonix Tab) 40 mg QAM PO 03/12/16 09:00 04/11/16 08:59 03/15/16 10:16 40 MG Acetaminophen/ Codeine Phosphate (Tylenol w/ Codeine #3 Tab) 1 tab for pain scale 4-6 2 t... Q4H PRN PO 03/12/16 09:30 04/11/16 09:29 03/16/16 05:57 1 TAB Acetaminophen (Tylenol Tab) 650 mg Q4H PRN PO 03/12/16 09:30 04/11/16 09:29 Insulin Aspart (novoLOG ASPART) SLIDING SCALE G... ACHS SC 03/12/16 16:00 04/11/16 15:59 03/15/16 12:03 2 UNITS Warfarin Sodium (Coumadin Tab) 2.5 mg DAILY@16 PO 03/13/16 16:00 04/12/16 15:59 Future hold 03/15/16 16:39 2.5 MG Ondansetron HCl 4 mg 4 mg Q4H PRN IV 03/14/16 08:45 04/13/16 08:44 03/15/16 16:39 4 MG Sodium Bicarbonate/ Sodium Chloride (Sodium Bicarbonate 8.4% Inj/1/2 Nss 1000ml) 1,075 ml @ 75 mls/hr [id number] IV 03/14/16 10:00 04/13/16 09:59 03/16/16 05:55 75 MLS/HR Amiodarone HCl 200 mg 200 mg BIDM PO 03/14/16 16:30 04/13/16 16:29 03/15/16 16:40 200 MG Amiodarone HCL/ Dextrose (Nexterone / D5w) 200 ml @ 16.7 mls/hr [id number] IV 03/14/16 18:16 04/13/16 18:15 03/16/16 04:16 16.7 MLS/HR Insulin Glargine 8 unit 8 unit PM SC 03/14/16 21:00 04/13/16 20:59 03/15/16 21:34 8 UNIT Dopamine HCl/ Dextrose (DOPamine 400MG / D5W) 250 ml @ 0 mls/hr Q0M PRN IV 03/15/16 09:45 04/14/16 09:44 03/15/16 11:26 8.2 MLS/HR Last 24 Hours Test 03/15/16 11:28 03/15/16 16:54 03/15/16 20:14 03/15/16 20:57 Bedside Glucose 141 mg/dl 146 mg/dl 152 mg/dl Sodium Level 135 mmol/L Potassium Level 4.5 mmol/L Chloride Level 103 mmol/L Carbon Dioxide Level 19 mmol/L Anion Gap 13.0 mmol/L Blood Urea Nitrogen 69 mg/dl Creatinine 4.50 mg/dl Est Creatinine Clear Calc Drug Dose 13.3 ml/min Estimated GFR () 13.2 Estimated GFR (Non- 11.4 BUN/Creatinine Ratio 15.4 Random Glucose 163 mg/dl Calcium Level 7.9 mg/dl Test 03/16/16 05:29 03/16/16 06:18 White Blood Count 10.83 K/uL Red Blood Count 3.20 M/uL Hemoglobin 9.5 g/dL Hematocrit 28.3 % Mean Corpuscular Volume 88.4 fL Mean Corpuscular Hemoglobin 29.7 pg Mean Corpuscular Hemoglobin Concent 33.6 g/dl RDW Standard Deviation 53.9 fL RDW Coefficient of Variation 16.7 % Platelet Count 108 K/uL Mean Platelet Volume 9.7 fL Prothrombin Time 21.1 SECONDS Prothromb Time International Ratio 1.9 Sodium Level 135 mmol/L Potassium Level 4.4 mmol/L Chloride Level 103 mmol/L Carbon Dioxide Level 21 mmol/L Anion Gap 11.0 mmol/L Blood Urea Nitrogen 67 mg/dl Creatinine 4.90 mg/dl Est Creatinine Clear Calc Drug Dose 13.3 ml/min Estimated GFR () 11.9 Estimated GFR (Non- 10.3 BUN/Creatinine Ratio 13.7 Random Glucose 99 mg/dl Calcium Level 7.5 mg/dl Ionized Calcium 1.06 mmol/l Phosphorus Level 4.4 mg/dl Magnesium Level 2.2 mg/dl Bedside Glucose 102 mg/dl Assessment & Plan regis-anuric with 400cc of urine output-may benefit from a barlow catheter although difficult insertion. critical care to discuss further with urology. trying to optimize heart rhythm with amio and dopamine and greatly appreciate cardiology help. pt is on 1/2 ns with 75 of bicarb and would like to stop the iv fluids for concern of eventual volume overload. may need dialysis however bicarb and electrolytes and volume status are acceptable at this time. monitoring for uremia. for now, no dialysis indicated. hypocalcemia-ionized calcium is low and would give iv calcium gluconate. .
[2016-03-16] MEDS ORDERED: CALCIUM GLUCONATE 10% 1,000 MG in SODIUM CHLORIDE 0.9% 50ML 50 ML IV ONE (08:00)
[2016-03-16] MEDS ORDERED: SODIUM CHLORIDE 0.65% NA SOLN 45 ML (OCEAN) ONE (08:31)
[2016-03-16] MEDS: FLUTICASONE PROPIONATE NA SPR 16 GM BTL NAE SCH (08:32)
[2016-03-16] MEDS: TAMSULOSIN HCL 0.4 MG CAP PO SCH (08:32)
[2016-03-16] MEDS: CLOPIDOGREL BISULFATE 75 MG TAB PO SCH (08:32)
[2016-03-16] MEDS: ATORVASTATIN 10 MG TAB PO SCH (08:32)
[2016-03-16] MEDS: SERTRALINE HCL 50 MG TAB PO SCH (08:32)
[2016-03-16] MEDS: DOCUSATE SODIUM 100 MG CAP PO SCH ×2 (08:32→21:15)
[2016-03-16] MEDS: CALCITRIOL 0.25 MCG CAP PO SCH (08:33)
[2016-03-16] MEDS: AMIODARONE 200 MG TAB PO SCH ×2 (08:33→16:49)
[2016-03-16] MEDS: PANTOprazole SOD 40 MG TAB PO SCH (08:33)
--- NOTE | 2016-03-16 08:43 | Procedure Note ---
Procedure Note Patient with worsening renal function, poor voiding. Staff unable to place barlow yesterday, called for assistance. 18 fr coude barlow placed in standard sterile fashion, 10 cc in balloon, drainage of clear urine, no hematuria on initial placement. Well tolerated. Continue care per primary service.
--- NOTE | 2016-03-16 08:45 | DIAGNOSTIC IMAGING REPORT ---
CHEST ONE VIEW PORTABLE CLINICAL HISTORY: wheezing dyspnea COMPARISON STUDY: 03/15/2016 FINDINGS: Mild stable cardiomegaly. Trace catheters lies as well as bipolar cardiac pacemaker/fibrillator unchanged. No pneumothorax. Lungs are grossly clear. IMPRESSION: Unchanged evaluation of the chest compared to the prior study. Electronically signed by: Korey Aguero M.D. 03/16/2016 8:44 AM
[2016-03-16] MEDS ORDERED: FENTANYL CITRATE INJ 50 MCG/1 ML 2 ML VIAL IV PRN (09:45)
[2016-03-16] MEDS ORDERED: BISACODYL 10 MG SUPP PR PRN (09:45)
--- NOTE | 2016-03-16 10:02 | Progress Note ---
Subjective Date of Service: Mar 16, 2016. Subjective 80 year old male s/p fall. Urology initially consulted for incomplete bladder emptying and difficult barlow placement. Barlow at that time was avoided due to hematuria and pt being on Plavix. Unfortunately his creatinine has continued to rise and pt reported difficulty voiding. Dr. Cruz placed 18 nepalese coude cath with 10 cc balloon this am. Clear urine. No hematuria upon placement. Urine remains clear. White count -10.8 Creatinine went from 4.1 to 4.9 today. Urine culture, cytology and blood cultures are negative. AFVSS Problem List Medical Problems: (1) Acute bronchitis Status: Acute (2) Chronic renal disease Status: Acute (3) Elevated troponin Status: Acute (4) Influenza Status: Acute (5) Systolic congestive heart failure Status: Acute Review of Systems Constitutional: No chills, No fever ENT: No hearing loss Respiratory: No cough Cardiac: No chest pain Abdomen: No nausea, No vomiting Male : + see HPI Heme: No abnormal bleeding/bruising Skin: No rash Objective Vital Signs Date Time Temp Pulse Resp B/P Pulse Ox O2 Delivery O2 Flow Rate FiO2 03/16/16 08:00 Room Air 03/16/16 08:00 37.0 70 18 84/58 95 Room Air 03/16/16 05:59 80 17 110/61 93 Room Air 03/16/16 05:09 87 19 103/38 93 Room Air 03/16/16 04:00 Room Air 03/16/16 03:59 37.1 80 14 111/55 96 Room Air 03/16/16 02:59 80 12 107/55 90 Room Air 03/16/16 01:59 84 12 115/44 91 Room Air 03/16/16 00:59 76 14 103/49 95 Room Air 03/16/16 00:01 Room Air 03/16/16 00:00 37.7 82 16 104/52 93 Room Air 03/15/16 22:59 85 14 126/46 93 Room Air 03/15/16 21:59 93 14 120/51 95 Room Air 03/15/16 20:59 95 16 117/43 94 Room Air 03/15/16 20:00 Room Air 03/15/16 19:59 36.8 97 14 135/63 93 Room Air 03/15/16 18:00 36.4 105 16 115/87 98 03/15/16 16:00 36.6 110 22 116/64 98 03/15/16 16:00 Room Air 03/15/16 14:00 36.6 96 17 127/49 100 03/15/16 12:00 Room Air 03/15/16 11:59 36.5 97 15 113/64 98 03/15/16 09:59 36.5 89 7 98/57 96 Physical Exam General Appearance: no apparent distress Respiratory/Chest: no respiratory distress, no accessory muscle use Neurologic/Psychiatric: alert Skin: normal color Laboratory Results Last 24 Hours Test 03/15/16 11:28 03/15/16 16:54 03/15/16 20:14 03/15/16 20:57 Bedside Glucose 141 mg/dl 146 mg/dl 152 mg/dl Sodium Level 135 mmol/L Potassium Level 4.5 mmol/L Chloride Level 103 mmol/L Carbon Dioxide Level 19 mmol/L Anion Gap 13.0 mmol/L Blood Urea Nitrogen 69 mg/dl Creatinine 4.50 mg/dl Est Creatinine Clear Calc Drug Dose 13.3 ml/min Estimated GFR () 13.2 Estimated GFR (Non- 11.4 BUN/Creatinine Ratio 15.4 Random Glucose 163 mg/dl Calcium Level 7.9 mg/dl Test 03/16/16 05:29 03/16/16 06:18 White Blood Count 10.83 K/uL Red Blood Count 3.20 M/uL Hemoglobin 9.5 g/dL Hematocrit 28.3 % Mean Corpuscular Volume 88.4 fL Mean Corpuscular Hemoglobin 29.7 pg Mean Corpuscular Hemoglobin Concent 33.6 g/dl RDW Standard Deviation 53.9 fL RDW Coefficient of Variation 16.7 % Platelet Count 108 K/uL Mean Platelet Volume 9.7 fL Prothrombin Time 21.1 SECONDS Prothromb Time International Ratio 1.9 Sodium Level 135 mmol/L Potassium Level 4.4 mmol/L Chloride Level 103 mmol/L Carbon Dioxide Level 21 mmol/L Anion Gap 11.0 mmol/L Blood Urea Nitrogen 67 mg/dl Creatinine 4.90 mg/dl Est Creatinine Clear Calc Drug Dose 13.3 ml/min Estimated GFR () 11.9 Estimated GFR (Non- 10.3 BUN/Creatinine Ratio 13.7 Random Glucose 99 mg/dl Calcium Level 7.5 mg/dl Ionized Calcium 1.06 mmol/l Phosphorus Level 4.4 mg/dl Magnesium Level 2.2 mg/dl Total Bilirubin 0.3 mg/dl Direct Bilirubin 0.2 mg/dl Aspartate Amino Transf (AST/SGOT) 16 U/L Alanine Aminotransferase (ALT/SGPT) 9 U/L Alkaline Phosphatase 136 U/L Total Protein 5.6 gm/dl Albumin 2.3 gm/dl Bedside Glucose 102 mg/dl Assessment and Plan Urinary retention 18 fr coude placed this am by Dr. Cruz. Urine remains clear. Hopefully his renal function will improve. Renal u/s on 03/15 only showed mild right sided hydro. Please call with persistent hematuria. Consider TOV prior to discharge.
--- NOTE | 2016-03-16 10:53 | Cardiology Follow-Up ---
Subjective General Date of Service: Mar 16, 2016. Chief Complaint: follow-up shortness of breath, congestive heart failure Pt evaluation today including: conversation w/ patient, physical exam, conversation w/ behavioral consultant History of Present Illness The patient is a 80 year old male seen in follow-up. Patient remains in the ICU room 103. A right upper extremity PICC line was successfully placed yesterday and dopamine is being infused at a rate of 2.5 pg/kg/m. Blood pressure is improved with most of his systolic blood pressures over 100 mmHg, compared to being in the 80 mmHg range before the dopamine. Patient denies any chest discomfort or shortness of breath. Ruff catheter had been placed with the assistance of urology just before my arrival today. Urine free of gross hematuria was present in the collection system. The patient was tolerating the catheter well. Telemetry reveals atrial fibrillation with frequent PVCs approximately 100 bpm. He had some short salvos of nonsustained ventricular tachycardia yesterday, but nothing prolonged. He denies any subjective palpitations. Allergies Coded Allergies: Lisinopril (Verified Allergy, Unknown, RASH, 06/24/15) Spironolactone (Verified Allergy, Unknown, unkn, 06/24/15) Zolpidem (Verified Adverse Reaction, Unknown, HALLUCINATIONS, 06/24/15) Social History Smoking Status: Former Smoker Hx Tobacco Use In Past Year?: No Hx Alcohol Use - Type And Amou: No Hx Substance Use - Type And Am: No Problem List Medical Problems: (1) Acute bronchitis Status: Acute (2) Chronic renal disease Status: Acute (3) Elevated troponin Status: Acute (4) Influenza Status: Acute (5) Systolic congestive heart failure Status: Acute Physical Exam Vital Signs Last Vital Signs Documentation Date Time Temp Pulse Resp B/P Pulse Ox O2 Delivery O2 Flow Rate FiO2 03/16/16 10:00 36.9 83 18 104/54 94 Room Air 03/14/16 14:00 4.0 Physical Exam Constitutional: General Apperance: heathly-appearing Level of Distress: mild distress Psychiatric: Mental Status: active & alert Head: normocephalic Eyes: EOM: EOMI ENMT: normal ENT inspection, hearing grossly normal Neck: supple, no masses Lungs: Respiratory effort: no dyspnea, good air movement Auscultation: breath sounds normal, no wheezing Cardiovascular: Heart Auscultation: no murmurs, no rubs, no gallops, tachycardia, irregular rate rhythm Peripheral Pulses: Bruits: none appreciated Abdomen: Bowel Sounds: normal Inspection & Palpation: soft, no tenderness, guarding & rebound, no masses Musculoskeletal: normal strength (5/5 throughout) Neurologic: Cranial Nerves: grossly intact Sensation: grossly intact Assessment and Plan Assessment and Plan Impression: 80-year-old male with low cardiac output syndrome, cardiorenal syndrome. 1. Admitted with syncope, noted to have persistent bradycardia which required transient transcutaneous pacing and support with dopamine -underwent biventricular pacemaker AICD , 03/12/16 2. History of chronic atrial fibrillation (also frequent PVCs) for which he is on chronic anticoagulation, history of past strokes 3. Chronic systolic heart failure, LVEF 30-35% 4. 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 JOSUÉ, on baseline stage IV chronic kidney disease -likely due to poor renal perfusion , low cardiac output state, hypovolemia 6. History of hyperkalemia 7. Underlying COPD Recommendations: Continue to hold beta blockers. Continue dopamine for inotropic and BP support. Continue amiodarone infusion. Ruff catheter is now place. Continue to monitor kidney function. Electrolyte replacement as already been ordered by the primary service. Continue Plavix. Coumadin will be held in case temporary dialysis catheter needs to be placed. I will be rounding this weekend and will continue to follow the patient. Franky Morales, Laboratory Results Last 24 Hours Test 03/15/16 11:28 03/15/16 16:54 03/15/16 20:14 03/15/16 20:57 Bedside Glucose 141 mg/dl 146 mg/dl 152 mg/dl Sodium Level 135 mmol/L Potassium Level 4.5 mmol/L Chloride Level 103 mmol/L Carbon Dioxide Level 19 mmol/L Anion Gap 13.0 mmol/L Blood Urea Nitrogen 69 mg/dl Creatinine 4.50 mg/dl Est Creatinine Clear Calc Drug Dose 13.3 ml/min Estimated GFR () 13.2 Estimated GFR (Non- 11.4 BUN/Creatinine Ratio 15.4 Random Glucose 163 mg/dl Calcium Level 7.9 mg/dl Test 03/16/16 05:29 03/16/16 06:18 White Blood Count 10.83 K/uL Red Blood Count 3.20 M/uL Hemoglobin 9.5 g/dL Hematocrit 28.3 % Mean Corpuscular Volume 88.4 fL Mean Corpuscular Hemoglobin 29.7 pg Mean Corpuscular Hemoglobin Concent 33.6 g/dl RDW Standard Deviation 53.9 fL RDW Coefficient of Variation 16.7 % Platelet Count 108 K/uL Mean Platelet Volume 9.7 fL Prothrombin Time 21.1 SECONDS Prothromb Time International Ratio 1.9 Sodium Level 135 mmol/L Potassium Level 4.4 mmol/L Chloride Level 103 mmol/L Carbon Dioxide Level 21 mmol/L Anion Gap 11.0 mmol/L Blood Urea Nitrogen 67 mg/dl Creatinine 4.90 mg/dl Est Creatinine Clear Calc Drug Dose 13.3 ml/min Estimated GFR () 11.9 Estimated GFR (Non- 10.3 BUN/Creatinine Ratio 13.7 Random Glucose 99 mg/dl Calcium Level 7.5 mg/dl Ionized Calcium 1.06 mmol/l Phosphorus Level 4.4 mg/dl Magnesium Level 2.2 mg/dl Total Bilirubin 0.3 mg/dl Direct Bilirubin 0.2 mg/dl Aspartate Amino Transf (AST/SGOT) 16 U/L Alanine Aminotransferase (ALT/SGPT) 9 U/L Alkaline Phosphatase 136 U/L Total Protein 5.6 gm/dl Albumin 2.3 gm/dl Bedside Glucose 102 mg/dl
[2016-03-16] MEDS ORDERED: FUROSEMIDE INJ 80 MG in SYRINGE 0 ML IV ONE (15:00)
[2016-03-16] MEDS: DOPamine 400MG / D5W 400 MG IV PRN (15:23)
[2016-03-16] MEDS: ONDANSETRON INJ 2 MG/ML 2 ML VIAL IV PRN (16:05)
--- NOTE | 2016-03-16 16:25 | Progress Note ---
Medicine Progress Note Date & Time of Visit: Mar 16, 2016 at 16:16. Subjective Patient seen and examined. Barlow catheter inserted this morning by Urology for urinary retention. Other than requesting to be repositioned, patient is without complaints. Objective Last 8 Hrs Date Time Temp Pulse Resp B/P Pulse Ox O2 Delivery O2 Flow Rate FiO2 03/16/16 14:29 37.2 86 18 118/55 93 Room Air 03/16/16 13:59 87 18 125/48 96 Room Air 03/16/16 13:29 83 16 108/65 94 Room Air 03/16/16 12:59 79 15 104/56 94 Room Air 03/16/16 12:00 87 16 115/81 94 Room Air 03/16/16 12:00 Room Air 03/16/16 10:00 36.9 83 18 104/54 94 Room Air 03/16/16 09:29 77 16 122/73 90 Room Air Physical Exam: General-awake; alert; NAD Eyes-EOMI; no scleral icterus Neck-no stridor; trachea midline Lungs-coarse breath sounds; no wheezes/crackles Heart-irregularly irregular Abdomen-soft; NTND; nBS Extremities-2+ peripheral pulses; trace le edema Neuro-no gross focal deficits Laboratory Results: Last 24 Hours Test 03/15/16 16:54 03/15/16 20:14 03/15/16 20:57 03/16/16 05:29 Bedside Glucose 146 mg/dl 152 mg/dl Sodium Level 135 mmol/L 135 mmol/L Potassium Level 4.5 mmol/L 4.4 mmol/L Chloride Level 103 mmol/L 103 mmol/L Carbon Dioxide Level 19 mmol/L 21 mmol/L Anion Gap 13.0 mmol/L 11.0 mmol/L Blood Urea Nitrogen 69 mg/dl 67 mg/dl Creatinine 4.50 mg/dl 4.90 mg/dl Est Creatinine Clear Calc Drug Dose 13.3 ml/min 13.3 ml/min Estimated GFR () 13.2 11.9 Estimated GFR (Non- 11.4 10.3 BUN/Creatinine Ratio 15.4 13.7 Random Glucose 163 mg/dl 99 mg/dl Calcium Level 7.9 mg/dl 7.5 mg/dl White Blood Count 10.83 K/uL Red Blood Count 3.20 M/uL Hemoglobin 9.5 g/dL Hematocrit 28.3 % Mean Corpuscular Volume 88.4 fL Mean Corpuscular Hemoglobin 29.7 pg Mean Corpuscular Hemoglobin Concent 33.6 g/dl RDW Standard Deviation 53.9 fL RDW Coefficient of Variation 16.7 % Platelet Count 108 K/uL Mean Platelet Volume 9.7 fL Prothrombin Time 21.1 SECONDS Prothromb Time International Ratio 1.9 Ionized Calcium 1.06 mmol/l Phosphorus Level 4.4 mg/dl Magnesium Level 2.2 mg/dl Total Bilirubin 0.3 mg/dl Direct Bilirubin 0.2 mg/dl Aspartate Amino Transf (AST/SGOT) 16 U/L Alanine Aminotransferase (ALT/SGPT) 9 U/L Alkaline Phosphatase 136 U/L Total Protein 5.6 gm/dl Albumin 2.3 gm/dl Test 03/16/16 06:18 03/16/16 11:08 Bedside Glucose 102 mg/dl Bedside Glucose (other) 109 mg/dl Assessment & Plan 80 year old male with history of CAD, A fib on Coumadin, 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 Found to have symptomatic bradycardia, sick sinus syndrome, s/p biventricular pacemaker 03/12/16. FALL, PRESYNCOPE - likely 2/2 symptomatic bradycardia - Cardiology consulted - initially required pressure support with dopamine drip, then weaned off - now back on dopamine for pressure support - also initially had temporary pacemaker - s/p biventricular pacemaker 03/12/16 - started on amiodarone for ectopy HISTORY OF NON ISCHEMIC CARDIOMYOPATHY - continue atorvastatin, clopidogrel - holding carvedilol, torsemide and Entresto given low-normal pressures and JOSUÉ A FIB - Coumadin initially held for supratherapeutic INR - Coumadin then restarted post-procedure - Coumadin back on hold in case of need for line placement - started on Amiodarone DM 2 - glycemic pharmacy consulted - continue insulin therapy Acute renal insufficiency (baseline CKD stage 3) - nephrology consulted - possibly related to volume depletion, cardiomyopathy - received albumin and IVF's with sodium bicarbonate - holding torsemide and Entresto - renal ultrasound with mild hydronephrosis, not thought to be contributory Urinary retention - Urology consulted - barlow placed - continue tamsulosin HISTORY OF CVA - continue Plavix, Atorvastatin - Coumadin on hold in case of need for line placement HISTORY OF PANCREATIC CANCER - s/p Whipple procedure - continue Pancreaze DVT prophylaxis - Coumadin on hold - SCD's DISPO PT recommending acute rehab when medically stable Code status Full code as per patient Consultants: Critical care Nephrology Cardiology Urology Procedures: CT head Interval right parietal infarct. No acute intracranial findings. CT c-spine Findings of severe degenerative change combined with extensive posterior laminectomy defects. No acute process is appreciated. TTE * The study was technically limited. * The left ventricle is moderately dilated. * Left ventricular systolic function is moderate to severely reduced. * Ejection Fraction = 30-35%. * The right ventricular systolic function is normal. * There is mild mitral regurgitation. Renal ultrasound 1. there is mild hydronephrosis right kidney. 2. Several left renal cyst. 3. Complex cyst mid to lower aspect right kidney. Current Inpatient Medications: Current Inpatient Medications Medications (Trade) Dose Ordered Sig/Quoc Route Start Time Stop Time Status Last Admin Dose Admin Nitroglycerin (Nitrostat Tab) 0.4 mg UD PRN SL 03/08/16 17:00 04/07/16 16:59 03/14/16 08:34 0.4 MG Glucose (Glucose 40% Gel) 15-30 GRAMS 15 GRAMS... UD PRN PO 03/08/16 17:15 04/07/16 17:14 Glucose (Glucose Chew Tab) 4-8 Tablets 4 Tabl... UD PRN PO 03/08/16 17:15 04/07/16 17:14 Dextrose (Dextrose 50% 50ML Syringe) 25-50ML OF 50% DW IV FOR... UD PRN IV 03/08/16 17:15 04/07/16 17:14 Glucagon (Glucagon Inj) 1 mg UD PRN SQ 03/08/16 17:15 04/07/16 17:14 Miscellaneous Information (Consult Glycemic Management Pharmacy) 1 ea UD PRN N/A 03/08/16 19:45 04/07/16 19:44 Atorvastatin Calcium (Lipitor Tab) 10 mg DAILY PO 03/09/16 09:00 04/08/16 08:59 03/16/16 08:32 10 MG Calcitriol (Rocaltrol Cap) 0.25 mcg DAILY PO 03/09/16 09:00 04/08/16 08:59 03/16/16 08:33 0.25 MCG Clopidogrel Bisulfate (plAVix TAB) 75 mg DAILY PO 03/09/16 09:00 04/08/16 08:59 Future hold 03/16/16 08:32 75 MG Fluticasone Propionate (Flonase Nasal [place]) 2 sprays DAILY RICHA 03/09/16 09:00 04/08/16 08:59 03/16/16 08:32 2 SPRAYS Levalbuterol (Xopenex Hfa Inhaler) 2 puffs Q4H PRN INH 03/08/16 17:30 04/07/16 17:29 Sertraline HCl (Zoloft Tab) 25 mg DAILY PO 03/09/16 09:00 04/08/16 08:59 03/16/16 08:32 25 MG Tamsulosin HCl (Flomax Cap) 0.4 mg DAILY PO 03/09/16 09:00 04/08/16 08:59 03/16/16 08:32 0.4 MG Miscellaneous Information (Order Awaiting Action) 1 ea QS N/A 03/08/16 19:45 04/07/16 19:44 Amylase/Lipase/ Protease (Pancreaze (Lipase 10,500U) Cap) 2 cap TIDM PO 03/09/16 07:15 04/08/16 07:29 03/16/16 11:47 2 CAP Amylase/Lipase/ Protease (Pancreaze (Lipase 10,500U) Cap) 1-2 CAPS WITH SNACKS UD PRN PO 03/08/16 19:45 04/07/16 19:44 Docusate Sodium (coLACE CAP) 100 mg BID PO 03/10/16 18:00 04/09/16 17:59 03/16/16 08:32 100 MG Polyethylene (Miralax Powder Packet) 17 gm HS PO 03/10/16 18:00 04/09/16 17:59 03/14/16 19:38 17 GM Polyethylene (Miralax Powder Packet) 17 gm Q6H PRN PO 03/10/16 21:15 04/09/16 21:14 03/13/16 10:48 17 GM Pantoprazole Sodium (Protonix Tab) 40 mg QAM PO 03/12/16 09:00 04/11/16 08:59 03/16/16 08:33 40 MG Acetaminophen/ Codeine Phosphate (Tylenol w/ Codeine #3 Tab) 1 tab for pain scale 4-6 2 t... Q4H PRN PO 03/12/16 09:30 04/11/16 09:29 03/16/16 05:57 1 TAB Acetaminophen (Tylenol Tab) 650 mg Q4H PRN PO 03/12/16 09:30 04/11/16 09:29 Insulin Aspart (novoLOG ASPART) SLIDING SCALE G... ACHS SC 03/12/16 16:00 04/11/16 15:59 03/15/16 12:03 2 UNITS Warfarin Sodium (Coumadin Tab) 2.5 mg DAILY@16 PO 03/13/16 16:00 04/12/16 15:59 Future Hold 03/15/16 16:39 2.5 MG Ondansetron HCl (Zofran Inj) 4 mg Q4H PRN IV 03/14/16 08:45 04/13/16 08:44 03/15/16 16:39 4 MG Amiodarone HCl 200 mg 200 mg BIDM PO 03/14/16 16:30 04/13/16 16:29 03/16/16 08:33 200 MG Amiodarone HCL/ Dextrose 200 ml @ 16.7 mls/hr [id number] IV 03/14/16 18:16 04/13/16 18:15 03/16/16 15:24 16.7 MLS/HR Dopamine HCl/ Dextrose (DOPamine 400MG / D5W) 250 ml @ 0 mls/hr Q0M PRN IV 03/15/16 09:45 04/14/16 09:44 03/16/16 15:23 8 MLS/HR Fentanyl Citrate (Fentanyl Inj) 25 mcg Q2H PRN IV 03/16/16 09:45 03/30/16 09:44 03/16/16 11:32 25 MCG Bisacodyl (Dulcolax Supp) 10 mg DAILY PRN [place] 03/16/16 09:45 04/15/16 09:44 Insulin Glargine (Lantus Solostar Pen) 4 unit PM SC 03/16/16 21:00 04/15/16 20:59
--- NOTE | 2016-03-16 17:03 | CRITICAL CARE PROGRESS NOTE ---
DATE: 03/16/2016 GENERAL INFORMATION: Last evening, the patient was very nauseated. That seems to have improved. He did not, however, make any urine last night and this morning the urology service placed a Coude catheter. He has not had much urine output throughout the day either. He denies chest pain other than around the pacemaker site. He continues on amiodarone and dopamine infusions. He has not had a bowel movement in the past 24 hours. His care was discussed in detail on multidisciplinary rounds today. PHYSICAL EXAMINATION: VITAL SIGNS: Maximum temperature 37.7, heart rate 70s-80s, respiratory rate 12-19, blood pressure 120-115/40s-50s, oxygen saturation 96% on 4 liters nasal cannula. A 24-hour fluid balance positive 2.37 liters. GENERAL: He is awake and alert and in no distress. NEUROLOGIC: He moves all 4 extremities and is oriented to person and place. LUNGS: Have some fine bibasilar rales. No rhonchi or wheezes. HEART: Irregular. No murmurs noted. ABDOMEN: Distended, firm, nontender. Hypoactive bowel sounds. EXTREMITIES: With 2+ edema of the hands and 1+ in the feet. Chest shows ecchymosis around the pacemaker battery. The dressing is intact. LABORATORY DATA: White blood cell count 10.83, hemoglobin 9.5, hematocrit 28.3, platelets 108. Sodium 135, potassium 4.4, chloride 103, CO2 21, BUN 67, creatinine 4.9, calcium 7.5, magnesium 4.4, phosphorus 2.2. IMAGING DATA: Portable chest x-ray from this morning was reviewed which shows cardiomegaly and no definitive infiltrate. MEDICATIONS AND INFUSIONS: Acetaminophen, amiodarone infusion at 0.5 mg per hour, pancrease, atorvastatin, Dulcolax, Rocaltrol, Plavix, dopamine 2.5 mcg per kilogram per minute, fentanyl, Flonase, insulin sliding scale, Lantus, Xopenex, nitroglycerin, Zofran, Protonix, MiraLax, Zoloft, tamsulosin. IMPRESSION: 1. Status post biventricular pacemaker placement. 2. Acute kidney injury, oliguric despite volume resuscitation and dopamine. 3. Cardiomyopathy, ejection fraction 30-35%. 4. Constipation. 5. Diabetes mellitus. 6. Hematuria, no real change. 7. Decreased platelets, improving. 8. History of cerebrovascular accident. 9. History of coronary artery disease and stenting. PLAN: 1. Fentanyl was started today as his Tylenol No.3 was not adequately controlling the pain in his left upper chest. 2. Lasix 60 mg IV x1 has been given. He may require hemodialysis. 3. Coumadin is being held. 4. Continue physical therapy and occupational therapy. 5. Consider b.i.d. MiraLax. 6. Discontinue sodium bicarbonate infusion. Many thanks to Dr. Morales and Dr. Sifuentes for their assistance in this patient's care. Please call me with any questions or concerns.
[2016-03-16] MEDS ORDERED: INSULIN GLARGINE SOLOSTAR 100 UNITS/ML 3 ML PEN SC SCH (21:00)
[2016-03-16] MEDS: POLYETHYLENE (MIRALAX) 17 GM PACK PO SCH (21:17)
[2016-03-17] VITALS (26 sets, daily range): BP systolic 86–149; BP diastolic 42–93; PULSE 79–96; TEMP 36.8–37.2; O2SAT 90–96
[2016-03-17] MEDS: AMIODARONE / D5W 200 ML IV SCH ×2 (03:26→16:00)
[2016-03-17 06:27] LABS: BASO % 0.1 %; BASO ABS # 0.01 K/uL (0-0.2); COMPLETE YES; EOS % 2.1 %; IG% 0.3 %; LYMPH % 9.3 %; LYMPH ABS # 1.09 K/uL (1.2-3.4); MEAN CELL VOLUME 87.5 fL (80-100); MEAN CORPUSCULAR HGB CONC 34.3 g/dl (32-36); MEAN PLATELET VOLUME 10.4 fL (7.4-10.4); MONO % 8.8 %; NEUT % 79.4 %; PLATELET COUNT 121 K/uL (130-400); WHITE BLOOD COUNT 11.73 K/uL (4.8-10.8)
[2016-03-17 06:36] LABS: INR 2.6 (0.9-1.1); PROTHROMBIN TIME (PATIENT) 29.1 SECONDS (9.0-12.0)
[2016-03-17 07:16] LABS: BUN/CREATININE RATIO 13.1 (10-20); CREATININE 5.8 mg/dl (0.60-1.40); MAGNESIUM 2.2 mg/dl (1.8-2.4); POTASSIUM 4.3 mmol/L (3.5-5.1)
--- NOTE | 2016-03-17 07:19 | Progress Note ---
Subjective Date of Service: Mar 17, 2016. Subjective Pt evaluation today including: conversation w/ patient, physical exam, chart review, lab review, review of inpatient medication list Pain: Denies PO Intake: Marla PO Voiding: barlow catheter in place (urine clear) 80 yo male seen yesterday for complex barlow placement. Catheter draining well, urine clear. No new complaints. AM Cr pending. Problem List Medical Problems: (1) Acute bronchitis Status: Acute (2) Chronic renal disease Status: Acute (3) Elevated troponin Status: Acute (4) Influenza Status: Acute (5) Systolic congestive heart failure Status: Acute Review of Systems Constitutional: No chills, No fever Eyes: No worsening of vision ENT: No hearing loss Respiratory: No shortness of breath Abdomen: No nausea, No vomiting Male : + see HPI, No hematuria Neurologic: No memory loss Skin: No new/changing skin lesions Objective Vital Signs Date Time Temp Pulse Resp B/P Pulse Ox O2 Delivery O2 Flow Rate FiO2 03/17/16 06:00 84 14 91 03/17/16 05:58 36.9 89 16 113/59 90 03/17/16 05:00 82 12 92 03/17/16 04:12 94 Room Air 4.0 03/17/16 04:00 83 12 93 03/17/16 03:59 82 12 96/45 93 03/17/16 03:00 84 12 93 03/17/16 02:00 80 12 95 03/17/16 01:59 37.2 83 12 103/42 95 03/17/16 01:00 81 12 93 03/17/16 00:13 94 Room Air 4.0 03/17/16 00:00 84 12 95 03/16/16 23:59 83 12 98/39 94 03/16/16 23:00 86 21 94 03/16/16 22:00 87 21 96 03/16/16 21:59 79 12 86/40 96 03/16/16 21:26 92 14 111/52 93 03/16/16 20:00 82 14 94 03/16/16 20:00 94 Room Air 4.0 03/16/16 19:59 36.9 89 14 110/81 94 03/16/16 19:00 86 14 95 03/16/16 18:00 86 18 103/50 94 Room Air 03/16/16 16:59 37.4 81 17 113/64 94 Room Air 03/16/16 16:00 Room Air 03/16/16 15:59 84 16 105/43 95 Room Air 03/16/16 14:29 37.2 86 18 118/55 93 Room Air 03/16/16 13:59 87 18 125/48 96 Room Air 03/16/16 13:29 83 16 108/65 94 Room Air 03/16/16 12:59 79 15 104/56 94 Room Air 03/16/16 12:00 87 16 115/81 94 Room Air 03/16/16 12:00 Room Air 03/16/16 10:00 36.9 83 18 104/54 94 Room Air 03/16/16 09:29 77 16 122/73 90 Room Air 03/16/16 08:00 Room Air 03/16/16 08:00 Room Air 03/16/16 08:00 37.0 70 18 84/58 95 Room Air Physical Exam General Appearance: no apparent distress ENT: hearing grossly normal Neck: no adenopathy Respiratory/Chest: no respiratory distress, no accessory muscle use Abdomen: non tender, soft Neurologic/Psychiatric: alert Skin: normal color Laboratory Results Last 24 Hours Test 03/16/16 11:08 03/16/16 16:12 03/16/16 20:00 03/17/16 05:37 Bedside Glucose (other) 109 mg/dl 124 mg/dl Bedside Glucose 121 mg/dl White Blood Count 11.73 K/uL Red Blood Count 3.20 M/uL Hemoglobin 9.6 g/dL Hematocrit 28.0 % Mean Corpuscular Volume 87.5 fL Mean Corpuscular Hemoglobin 30.0 pg Mean Corpuscular Hemoglobin Concent 34.3 g/dl Platelet Count 121 K/uL Mean Platelet Volume 10.4 fL Neutrophils (%) (Auto) 79.4 % Lymphocytes (%) (Auto) 9.3 % Monocytes (%) (Auto) 8.8 % Eosinophils (%) (Auto) 2.1 % Basophils (%) (Auto) 0.1 % Neutrophils # (Auto) 9.31 K/uL Lymphocytes # (Auto) 1.09 K/uL Monocytes # (Auto) 1.03 K/uL Eosinophils # (Auto) 0.25 K/uL Basophils # (Auto) 0.01 K/uL RDW Standard Deviation 54.8 fL RDW Coefficient of Variation 17.0 % Immature Granulocyte % (Auto) 0.3 % Immature Granulocyte # (Auto) 0.04 K/uL Prothrombin Time 29.1 SECONDS Prothromb Time International Ratio 2.6 Test 03/17/16 05:39 Bedside Glucose 94 mg/dl Assessment and Plan A/P 80 yo male s/p barlow placement Modest urine output since barlow placed. Monitor Cr, medical evaluation for renal failure ongoing. Would not suspect a significant obstructive component. Would plan trial of void prior to discharge home. Will arrange for outpatient follow-up of the patient's voiding with our service. Thank you for allowing us to participate in this patient's acute care. Please recall our service PRN any new questions or concerns.
[2016-03-17 07:25] LABS: CALCIUM 7.6 mg/dl (8.5-10.1)
[2016-03-17 07:26] LABS: PHOSPHORUS 5.3 mg/dl (2.5-4.9)
[2016-03-17] MEDS ORDERED: BUMETANIDE IV 1 MG in SYRINGE 0 ML IV ONE (07:30)
[2016-03-17] MEDS: DOCUSATE SODIUM 100 MG CAP PO SCH ×2 (07:31→20:01)
[2016-03-17] MEDS: SERTRALINE HCL 50 MG TAB PO SCH (07:31)
[2016-03-17] MEDS: ATORVASTATIN 10 MG TAB PO SCH (07:31)
[2016-03-17] MEDS: PANTOprazole SOD 40 MG TAB PO SCH (07:32)
[2016-03-17] MEDS: CLOPIDOGREL BISULFATE 75 MG TAB PO SCH (07:32)
[2016-03-17] MEDS: PANCREAZE (LIPASE 10,500U) CAP PO SCH ×3 (07:32→16:46)
[2016-03-17] MEDS: TAMSULOSIN HCL 0.4 MG CAP PO SCH (07:32)
[2016-03-17] MEDS: AMIODARONE 200 MG TAB PO SCH ×2 (07:32→16:46)
[2016-03-17] MEDS: CALCITRIOL 0.25 MCG CAP PO SCH (07:32)
[2016-03-17] MEDS: FLUTICASONE PROPIONATE NA SPR 16 GM BTL NAE SCH (07:33)
[2016-03-17] MEDS: POLYETHYLENE (MIRALAX) 17 GM PACK PO SCH ×2 (07:33→20:01)
[2016-03-17] MEDS: INSULIN ASPART 100 UNITS/ML 3 ML PEN SC SCH ×4 (07:43→20:11)
--- NOTE | 2016-03-17 08:49 | Cardiology Follow-Up ---
Subjective General Date of Service: Mar 17, 2016. Chief Complaint: follow-up shortness of breath, congestive heart failure Pt evaluation today including: conversation w/ patient, physical exam History of Present Illness The patient is a 80 year old male seen in cardiology follow up. Pt only complains [facility]. Denies SOB. Has been confined to bed for over a week since presenting to the hospital. Telemetry reveals AF, occasional V paced QRS complexes, less PVCs. Allergies Coded Allergies: Lisinopril (Verified Allergy, Unknown, RASH, 06/24/15) Spironolactone (Verified Allergy, Unknown, unkn, 06/24/15) Zolpidem (Verified Adverse Reaction, Unknown, HALLUCINATIONS, 06/24/15) Social History Smoking Status: Former Smoker Hx Tobacco Use In Past Year?: No Hx Alcohol Use - Type And Amou: No Hx Substance Use - Type And Am: No Problem List Medical Problems: (1) Acute bronchitis Status: Acute (2) Chronic renal disease Status: Acute (3) Elevated troponin Status: Acute (4) Influenza Status: Acute (5) Systolic congestive heart failure Status: Acute Physical Exam Vital Signs Last Vital Signs Documentation Date Time Temp Pulse Resp B/P Pulse Ox O2 Delivery O2 Flow Rate FiO2 03/17/16 08:00 Room Air 03/17/16 06:00 84 14 91 03/17/16 05:58 36.9 113/59 03/17/16 04:12 4.0 Physical Exam Constitutional: General Apperance: heathly-appearing Level of Distress: mild distress Psychiatric: Mental Status: active & alert Head: normocephalic Eyes: EOM: EOMI ENMT: normal ENT inspection, hearing grossly normal Neck: supple, no masses Lungs: Respiratory effort: no dyspnea, good air movement Auscultation: breath sounds normal, no wheezing Cardiovascular: Heart Auscultation: no murmurs, no rubs, no gallops, tachycardia, irregular rate rhythm Peripheral Pulses: Bruits: none appreciated Abdomen: Bowel Sounds: normal Inspection & Palpation: soft, no tenderness, guarding & rebound, no masses Musculoskeletal: normal strength (5/5 throughout) Neurologic: Cranial Nerves: grossly intact Sensation: grossly intact Assessment and Plan Assessment and Plan Impression: 80-year-old male with low cardiac output syndrome, cardiorenal syndrome. 1. Admitted with syncope, noted to have persistent bradycardia which required transient transcutaneous pacing and support with dopamine -underwent biventricular pacemaker AICD , 03/12/16 2. History of chronic atrial fibrillation (also frequent PVCs) for which he is on chronic anticoagulation, history of past strokes 3. Chronic systolic heart failure, LVEF 30-35% 4. 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 JOSUÉ, on baseline stage IV chronic kidney disease -likely due to poor renal perfusion , low cardiac output state, hypovolemia 6. History of hyperkalemia 7. Underlying COPD Recommendations: Continue dopamine for inotropic and BP support. Continue amiodarone infusion. Ruff catheter is now place. Creatinine continues to worsen. Baseline creatinine was ~2.3 mg/dl, up to 5.8 mg/dl this am. INR =2.6 , coumadin is on hold. Continue current measures. Will discuss with nephrology. Franky Morales DO Laboratory Results Last 24 Hours Test 03/16/16 11:08 03/16/16 16:12 03/16/16 20:00 03/17/16 05:37 Bedside Glucose (other) 109 mg/dl 124 mg/dl Bedside Glucose 121 mg/dl White Blood Count 11.73 K/uL Red Blood Count 3.20 M/uL Hemoglobin 9.6 g/dL Hematocrit 28.0 % Mean Corpuscular Volume 87.5 fL Mean Corpuscular Hemoglobin 30.0 pg Mean Corpuscular Hemoglobin Concent 34.3 g/dl Platelet Count 121 K/uL Mean Platelet Volume 10.4 fL Neutrophils (%) (Auto) 79.4 % Lymphocytes (%) (Auto) 9.3 % Monocytes (%) (Auto) 8.8 % Eosinophils (%) (Auto) 2.1 % Basophils (%) (Auto) 0.1 % Neutrophils # (Auto) 9.31 K/uL Lymphocytes # (Auto) 1.09 K/uL Monocytes # (Auto) 1.03 K/uL Eosinophils # (Auto) 0.25 K/uL Basophils # (Auto) 0.01 K/uL RDW Standard Deviation 54.8 fL RDW Coefficient of Variation 17.0 % Immature Granulocyte % (Auto) 0.3 % Immature Granulocyte # (Auto) 0.04 K/uL Prothrombin Time 29.1 SECONDS Prothromb Time International Ratio 2.6 Sodium Level 134 mmol/L Potassium Level 4.3 mmol/L Chloride Level 102 mmol/L Carbon Dioxide Level 19 mmol/L Anion Gap 13.0 mmol/L Blood Urea Nitrogen 76 mg/dl Creatinine 5.80 mg/dl Est Creatinine Clear Calc Drug Dose 11.3 ml/min Estimated GFR () 9.7 Estimated GFR (Non- 8.4 BUN/Creatinine Ratio 13.1 Random Glucose 96 mg/dl Calcium Level 7.6 mg/dl Phosphorus Level 5.3 mg/dl Magnesium Level 2.2 mg/dl Test 03/17/16 05:39 Bedside Glucose 94 mg/dl
--- NOTE | 2016-03-17 10:33 | Pharmacy Progress Note ---
Glycemic: Assessment & Plan Date of Service Mar 17, 2016. Assessment & Plan The patient is currently receiving 4 units of insulin per day yesterday; 12 units on 03/15. BSGs ranging 94 - 124 mg/dl over the past 24hrs. I will place Lantus on hold to prevent hypoglycemia. SCr = 1.5mg/dL today. Urff catheter placed. * Basal insulin: Lantus 4 units every 24 hours - HOLD at this time * Correctional Insulin: Novolog Correction per scale ACHS Goal Range: Low 140 mg/dL - High 180 mg/dL Correction Factor: 30 mg/dL/unit * Prandial insulin: Per carb ratio of 1 unit per 15 grams CHO consumed Pharmacy will continue to monitor patient daily and write orders per [facility] inpatient glycemic control protocol. Thanks. * Please note that the plan above was derived based on current level of insulin resistance and hospital stress. These recommendations are appropriate for inpatient admission only. Plan of care upon discharge will need to be reassessed to avoid potential outpatient hypo/hyperglycemia.
--- NOTE | 2016-03-17 12:49 | Progress Note ---
Medicine Progress Note Date & Time of Visit: Mar 17, 2016 at 12:45. Subjective Patient seen and examined. Is without complaints this morning. Objective Last 8 Hrs Date Time Temp Pulse Resp B/P Pulse Ox O2 Delivery O2 Flow Rate FiO2 03/17/16 12:00 37.2 95 16 126/70 91 Room Air 03/17/16 10:00 94 18 109/83 93 Room Air 03/17/16 08:00 36.8 93 13 129/93 93 Room Air 03/17/16 08:00 Room Air 03/17/16 06:00 84 14 91 03/17/16 05:58 36.9 89 16 113/59 90 03/17/16 05:00 82 12 92 Physical Exam: General-sleeping but arousable Eyes-EOMI; no scleral icterus Neck-no stridor; trachea midline Lungs-coarse breath sounds anteriorly Heart-irregularly irregular Abdomen-soft; NTND; nBS Extremities-2+ peripheral pulses; 1+ le edema; edema of ue, r>l Neuro-no gross focal deficits Laboratory Results: Last 24 Hours Test 03/16/16 16:12 03/16/16 20:00 03/17/16 05:37 03/17/16 05:39 Bedside Glucose (other) 124 mg/dl Bedside Glucose 121 mg/dl 94 mg/dl White Blood Count 11.73 K/uL Red Blood Count 3.20 M/uL Hemoglobin 9.6 g/dL Hematocrit 28.0 % Mean Corpuscular Volume 87.5 fL Mean Corpuscular Hemoglobin 30.0 pg Mean Corpuscular Hemoglobin Concent 34.3 g/dl Platelet Count 121 K/uL Mean Platelet Volume 10.4 fL Neutrophils (%) (Auto) 79.4 % Lymphocytes (%) (Auto) 9.3 % Monocytes (%) (Auto) 8.8 % Eosinophils (%) (Auto) 2.1 % Basophils (%) (Auto) 0.1 % Neutrophils # (Auto) 9.31 K/uL Lymphocytes # (Auto) 1.09 K/uL Monocytes # (Auto) 1.03 K/uL Eosinophils # (Auto) 0.25 K/uL Basophils # (Auto) 0.01 K/uL RDW Standard Deviation 54.8 fL RDW Coefficient of Variation 17.0 % Immature Granulocyte % (Auto) 0.3 % Immature Granulocyte # (Auto) 0.04 K/uL Prothrombin Time 29.1 SECONDS Prothromb Time International Ratio 2.6 Sodium Level 134 mmol/L Potassium Level 4.3 mmol/L Chloride Level 102 mmol/L Carbon Dioxide Level 19 mmol/L Anion Gap 13.0 mmol/L Blood Urea Nitrogen 76 mg/dl Creatinine 5.80 mg/dl Est Creatinine Clear Calc Drug Dose 11.3 ml/min Estimated GFR () 9.7 Estimated GFR (Non- 8.4 BUN/Creatinine Ratio 13.1 Random Glucose 96 mg/dl Calcium Level 7.6 mg/dl Phosphorus Level 5.3 mg/dl Magnesium Level 2.2 mg/dl Test 03/17/16 11:05 Bedside Glucose (other) 142 mg/dl Assessment & Plan 80 year old male with history of CAD, A fib on Coumadin, 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 Found to have symptomatic bradycardia, sick sinus syndrome, s/p biventricular pacemaker 03/12/16. FALL, PRESYNCOPE - likely 2/2 symptomatic bradycardia - Cardiology consulted - initially required pressure support with dopamine drip, then weaned off - now back on dopamine for pressure support - also initially had temporary pacemaker - s/p biventricular pacemaker 03/12/16 - continued on amiodarone for ectopy HISTORY OF NON ISCHEMIC CARDIOMYOPATHY - continue atorvastatin, clopidogrel - holding carvedilol, torsemide and Entresto given pressor requirement and JOSUÉ A FIB - Coumadin initially held for supratherapeutic INR - Coumadin then restarted post-procedure - Coumadin back on hold in case of need for line placement - continued on Amiodarone DM 2 - glycemic pharmacy consulted - continue insulin therapy Acute renal insufficiency (baseline CKD stage 3) - nephrology consulted - worsening - received albumin and IVF's with sodium bicarbonate - now intermittently diuresing with furosemide vs bumetanide - holding torsemide and Entresto (home medications) - renal ultrasound with mild hydronephrosis, not thought to be contributory Urinary retention - Urology consulted - barlow placed - continue tamsulosin HISTORY OF CVA - continue Plavix, Atorvastatin - Coumadin on hold in case of need for line placement HISTORY OF PANCREATIC CANCER - s/p Whipple procedure - continue Pancreaze DVT prophylaxis - Coumadin on hold - SCD's DISPO PT recommending acute rehab when medically stable Code status Full code as per patient Consultants: Critical care Nephrology Cardiology Urology Procedures: CT head Interval right parietal infarct. No acute intracranial findings. CT c-spine Findings of severe degenerative change combined with extensive posterior laminectomy defects. No acute process is appreciated. TTE * The study was technically limited. * The left ventricle is moderately dilated. * Left ventricular systolic function is moderate to severely reduced. * Ejection Fraction = 30-35%. * The right ventricular systolic function is normal. * There is mild mitral regurgitation. Renal ultrasound 1. there is mild hydronephrosis right kidney. 2. Several left renal cyst. 3. Complex cyst mid to lower aspect right kidney. Current Inpatient Medications: Current Inpatient Medications Medications (Trade) Dose Ordered Sig/Quoc Route Start Time Stop Time Status Last Admin Dose Admin Nitroglycerin (Nitrostat Tab) 0.4 mg UD PRN SL 03/08/16 17:00 04/07/16 16:59 03/14/16 08:34 0.4 MG Glucose (Glucose 40% Gel) 15-30 GRAMS 15 GRAMS... UD PRN PO 03/08/16 17:15 04/07/16 17:14 Glucose (Glucose Chew Tab) 4-8 Tablets 4 Tabl... UD PRN PO 03/08/16 17:15 04/07/16 17:14 Dextrose (Dextrose 50% 50ML Syringe) 25-50ML OF 50% DW IV FOR... UD PRN IV 03/08/16 17:15 04/07/16 17:14 Glucagon (Glucagon Inj) 1 mg UD PRN SQ 03/08/16 17:15 04/07/16 17:14 Miscellaneous Information (Consult Glycemic Management Pharmacy) 1 ea UD PRN N/A 03/08/16 19:45 04/07/16 19:44 Atorvastatin Calcium (Lipitor Tab) 10 mg DAILY PO 03/09/16 09:00 04/08/16 08:59 03/17/16 07:31 10 MG Calcitriol (Rocaltrol Cap) 0.25 mcg DAILY PO 03/09/16 09:00 04/08/16 08:59 03/17/16 07:32 0.25 MCG Clopidogrel Bisulfate (plAVix TAB) 75 mg DAILY PO 03/09/16 09:00 04/08/16 08:59 Future hold 03/17/16 07:32 75 MG Fluticasone Propionate (Flonase Nasal [place]) 2 sprays DAILY RICHA 03/09/16 09:00 04/08/16 08:59 03/17/16 07:33 2 SPRAYS Levalbuterol (Xopenex Hfa Inhaler) 2 puffs Q4H PRN INH 03/08/16 17:30 04/07/16 17:29 Sertraline HCl (Zoloft Tab) 25 mg DAILY PO 03/09/16 09:00 04/08/16 08:59 03/17/16 07:31 25 MG Tamsulosin HCl (Flomax Cap) 0.4 mg DAILY PO 03/09/16 09:00 04/08/16 08:59 03/17/16 07:32 0.4 MG Miscellaneous Information (Order Awaiting Action) 1 ea QS N/A 03/08/16 19:45 04/07/16 19:44 Amylase/Lipase/ Protease (Pancreaze (Lipase 10,500U) Cap) 2 cap TIDM PO 03/09/16 07:15 04/08/16 07:29 03/17/16 11:46 2 CAP Amylase/Lipase/ Protease (Pancreaze (Lipase 10,500U) Cap) 1-2 CAPS WITH SNACKS UD PRN PO 03/08/16 19:45 04/07/16 19:44 Docusate Sodium (coLACE CAP) 100 mg BID PO 03/10/16 18:00 04/09/16 17:59 03/17/16 07:31 100 MG Polyethylene (Miralax Powder Packet) 17 gm Q6H PRN PO 03/10/16 21:15 04/09/16 21:14 03/13/16 10:48 17 GM Pantoprazole Sodium (Protonix Tab) 40 mg QAM PO 03/12/16 09:00 04/11/16 08:59 03/17/16 07:32 40 MG Acetaminophen/ Codeine Phosphate (Tylenol w/ Codeine #3 Tab) 1 tab for pain scale 4-6 2 t... Q4H PRN PO 03/12/16 09:30 04/11/16 09:29 03/16/16 05:57 1 TAB Acetaminophen (Tylenol Tab) 650 mg Q4H PRN PO 03/12/16 09:30 04/11/16 09:29 Insulin Aspart (novoLOG ASPART) SLIDING SCALE G... ACHS SC 03/12/16 16:00 04/11/16 15:59 03/15/16 12:03 2 UNITS Warfarin Sodium (Coumadin Tab) 2.5 mg DAILY@16 PO 03/13/16 16:00 04/12/16 15:59 Future Hold 03/15/16 16:39 2.5 MG Ondansetron HCl (Zofran Inj) 4 mg Q4H PRN IV 03/14/16 08:45 04/13/16 08:44 03/16/16 16:05 4 MG Amiodarone HCl 200 mg 200 mg BIDM PO 03/14/16 16:30 04/13/16 16:29 03/17/16 07:32 200 MG Amiodarone HCL/ Dextrose 200 ml @ 16.7 mls/hr [id number] IV 03/14/16 18:16 04/13/16 18:15 03/17/16 03:26 16.7 MLS/HR Dopamine HCl/ Dextrose (DOPamine 400MG / D5W) 250 ml @ 0 mls/hr Q0M PRN IV 03/15/16 09:45 04/14/16 09:44 03/16/16 15:23 8 MLS/HR Fentanyl Citrate (Fentanyl Inj) 25 mcg Q2H PRN IV 03/16/16 09:45 03/30/16 09:44 03/16/16 11:32 25 MCG Bisacodyl (Dulcolax Supp) 10 mg DAILY PRN [place] 03/16/16 09:45 04/15/16 09:44 03/17/16 10:10 10 MG Insulin Glargine (Lantus Solostar Pen) 4 unit PM SC 03/16/16 21:00 04/15/16 20:59 Future Hold 03/16/16 21:18 4 UNIT Polyethylene (Miralax Powder Packet) 17 gm BID PO 03/17/16 09:00 04/16/16 08:59 03/17/16 07:33 17 GM
[2016-03-17] MEDS: ACETAMINOPHEN 325 MG TAB PO PRN (12:53)
--- NOTE | 2016-03-17 13:39 | CRITICAL CARE PROGRESS NOTE ---
DATE: 03/17/2016 DATE: 03/17/2016. SUBJECTIVE: There were no acute events overnight. He remains on a dopamine infusion at 2.5 mcg per kilogram per minute as well as amiodarone at 0.5 mg per minute. He had a bowel movement this morning but does not seem to remember it. He is not eating very well and is having difficulty holding his food secondary to edema in his hands. He seems more drowsy and fell asleep during breakfast when his nurse was trying to feed him. He certainly is a bit slow to respond to my questions, but answers them appropriately. He received Bumex 1 mg IV this morning. He has had 250 mL of urine output since 6:30 a.m. today. PHYSICAL EXAMINATION: VITAL SIGNS: Maximum temperature 37.2, heart rate 80s, respiratory rate 12, blood pressure 86-113/30s-60s. Oxygen saturation 94% on room air. 24-hour fluid balance positive 1.5 liters. GENERAL: He will awaken but is slow to respond. He follows commands and moves all 4 extremities but it seems to take him several seconds to respond. LUNGS: Have decreased breath sounds in the bases. No rales, rhonchi or wheezes. HEART: Irregularly irregular. I do not hear a murmur. CHEST: The inferior clavicular pacemaker incision is clean, dry and intact and well approximated. ABDOMEN: Moderately distended, a bit firm, nontender, hypoactive bowel sounds. EXTREMITIES: With 2+ edema of the hands and 1+ edema of the feet. All extremities are warm. LABORATORY DATA: White blood cell count 11.7, hemoglobin 9.6, hematocrit 28, platelets 121. Sodium 134, potassium 4.3, chloride 102, CO2 19, BUN 76, creatinine 5.8. Calcium 7.6, phosphorus 5.3, magnesium 2.2. MEDICATIONS AND INFUSIONS: Tylenol #3, amiodarone infusion and p.o., pancrease, atorvastatin, Dulcolax, rocaltrol, Plavix, dopamine, Colace, fentanyl, Flonase, NovoLog, Xopenex, nitroglycerin, Zofran, Protonix, MiraLax, Zoloft, Flomax. There is no radiographic data from today. IMPRESSION: 1. Acute kidney injury, nonoliguric. His urine output is increasing; however, his BUN and creatinine are not stabilizing. The renal service is following and we are watching his potassium and volume status. He is now definitely more drowsy, which I attribute to his elevated BUN. Hopefully, we will see some improvement in his BUN and creatinine soon or I anticipate he will need hemodialysis. Hopefully his blood pressure will be able to tolerate that. 2. Status post pacemaker placement on 03/12/2016 with post-procedure bleeding. 3. Chronic atrial fibrillation. The warfarin is being held due to the possibility of needing a temporary dialysis catheter. 4. Cardiomyopathy, ejection fraction 30-35%. 5. Constipation, improved. 6. Diabetes mellitus with satisfactory blood sugar control. 7. Hematuria, definitely improved. 8. Decreased platelets, continues to improve. 9. History of cerebrovascular accident. 10. History of coronary artery disease and stenting. 11. Encephalopathy likely secondary to elevated BUN. PLAN: 1. Continue Tylenol or Tylenol #3 for pain. The fentanyl did not really help him according to his nurse. I will discontinue that. 2. Continue incentive spirometry. Hopefully, he will not become hypoxemic as he has had very positive fluid balance over the past week. 3. Continue to hold Coumadin in anticipation of temporary HD catheter. 4. Continue dopamine and amiodarone. His ectopy has improved. Consider discontinuing the amiodarone infusion. 5. I increased the MiraLax to b.i.d. and we could consider an enema. He had a Dulcolax suppository earlier today. 6. Continue to hold the Coumadin. 7. Await further recommendations from the nephrology service. Consider albumin with a Bumex or Lasix chaser. 8. Continue Plavix for CAD. [facility]
--- NOTE | 2016-03-17 15:38 | Nephrology Progress Note ---
Nephrology Progress Note Date of Service: Mar 17, 2016. Subjective 250 cc uop first 8hrs today; still on amio + dopa; extremely tired; no n/v; not overtly dyspneic Objective Date Time Temp Pulse Resp B/P Pulse Ox O2 Delivery O2 Flow Rate FiO2 03/17/16 14:00 96 14 86/68 93 Room Air 03/17/16 12:00 Room Air 03/17/16 12:00 37.2 95 16 126/70 91 Room Air 03/17/16 10:00 94 18 109/83 93 Room Air 03/17/16 08:00 36.8 93 13 129/93 93 Room Air 03/17/16 08:00 Room Air 03/17/16 06:00 84 14 91 03/17/16 05:58 36.9 89 16 113/59 90 03/17/16 05:00 82 12 92 03/17/16 04:12 94 Room Air 4.0 03/17/16 04:00 83 12 93 03/17/16 03:59 82 12 96/45 93 03/17/16 03:00 84 12 93 03/17/16 02:00 80 12 95 03/17/16 01:59 37.2 83 12 103/42 95 03/17/16 01:00 81 12 93 03/17/16 00:13 94 Room Air 4.0 03/17/16 00:00 84 12 95 03/16/16 23:59 83 12 98/39 94 03/16/16 23:00 86 21 94 03/16/16 22:00 87 21 96 03/16/16 21:59 79 12 86/40 96 03/16/16 21:26 92 14 111/52 93 03/16/16 20:00 82 14 94 03/16/16 20:00 94 Room Air 4.0 03/16/16 19:59 36.9 89 14 110/81 94 03/16/16 19:00 86 14 95 03/16/16 18:00 86 18 103/50 94 Room Air 03/16/16 16:59 37.4 81 17 113/64 94 Room Air 03/16/16 16:00 Room Air 03/16/16 15:59 84 16 105/43 95 Room Air Physical Exam: General-extremely fatigued, oriented x 3, on RA Eyes-no sceral icterus ENT-dry mm Neck-supple Lungs-diminished and rhoncherous in places but no wheeze/ crackle Heart-RRR w/ frequent premature beat; defib incision clean Abdomen-bs+ s/nt/nd; barlow present Extremities-no c/c; 2+ ankle edema + BUE edema Neuro-[place] Current Inpatient Medications Medications (Trade) Dose Ordered Sig/Quoc Route Start Time Stop Time Status Last Admin Dose Admin Nitroglycerin (Nitrostat Tab) 0.4 mg UD PRN SL 03/08/16 17:00 04/07/16 16:59 03/14/16 08:34 0.4 MG Glucose (Glucose 40% Gel) 15-30 GRAMS 15 GRAMS... UD PRN PO 03/08/16 17:15 04/07/16 17:14 Glucose (Glucose Chew Tab) 4-8 Tablets 4 Tabl... UD PRN PO 03/08/16 17:15 04/07/16 17:14 Dextrose (Dextrose 50% 50ML Syringe) 25-50ML OF 50% DW IV FOR... UD PRN IV 03/08/16 17:15 04/07/16 17:14 Glucagon (Glucagon Inj) 1 mg UD PRN SQ 03/08/16 17:15 04/07/16 17:14 Miscellaneous Information (Consult Glycemic Management Pharmacy) 1 ea UD PRN N/A 03/08/16 19:45 04/07/16 19:44 Atorvastatin Calcium (Lipitor Tab) 10 mg DAILY PO 03/09/16 09:00 04/08/16 08:59 03/17/16 07:31 10 MG Calcitriol (Rocaltrol Cap) 0.25 mcg DAILY PO 03/09/16 09:00 04/08/16 08:59 03/17/16 07:32 0.25 MCG Clopidogrel Bisulfate (plAVix TAB) 75 mg DAILY PO 03/09/16 09:00 04/08/16 08:59 Future hold 03/17/16 07:32 75 MG Fluticasone Propionate (Flonase Nasal [place]) 2 sprays DAILY RICHA 03/09/16 09:00 04/08/16 08:59 03/17/16 07:33 2 SPRAYS Levalbuterol (Xopenex Hfa Inhaler) 2 puffs Q4H PRN INH 03/08/16 17:30 04/07/16 17:29 Sertraline HCl (Zoloft Tab) 25 mg DAILY PO 03/09/16 09:00 04/08/16 08:59 03/17/16 07:31 25 MG Tamsulosin HCl (Flomax Cap) 0.4 mg DAILY PO 03/09/16 09:00 04/08/16 08:59 03/17/16 07:32 0.4 MG Miscellaneous Information (Order Awaiting Action) 1 ea QS N/A 03/08/16 19:45 04/07/16 19:44 Amylase/Lipase/ Protease (Pancreaze (Lipase 10,500U) Cap) 2 cap TIDM PO 03/09/16 07:15 04/08/16 07:29 03/17/16 11:46 2 CAP Amylase/Lipase/ Protease (Pancreaze (Lipase 10,500U) Cap) 1-2 CAPS WITH SNACKS UD PRN PO 03/08/16 19:45 04/07/16 19:44 Docusate Sodium (coLACE CAP) 100 mg BID PO 03/10/16 18:00 04/09/16 17:59 03/17/16 07:31 100 MG Polyethylene (Miralax Powder Packet) 17 gm Q6H PRN PO 03/10/16 21:15 04/09/16 21:14 03/13/16 10:48 17 GM Pantoprazole Sodium (Protonix Tab) 40 mg QAM PO 03/12/16 09:00 04/11/16 08:59 03/17/16 07:32 40 MG Acetaminophen/ Codeine Phosphate (Tylenol w/ Codeine #3 Tab) 1 tab for pain scale 4-6 2 t... Q4H PRN PO 03/12/16 09:30 04/11/16 09:29 03/16/16 05:57 1 TAB Acetaminophen (Tylenol Tab) 650 mg Q4H PRN PO 03/12/16 09:30 04/11/16 09:29 03/17/16 12:53 650 MG Insulin Aspart (novoLOG ASPART) SLIDING SCALE G... ACHS SC 03/12/16 16:00 04/11/16 15:59 03/15/16 12:03 2 UNITS Warfarin Sodium (Coumadin Tab) 2.5 mg DAILY@16 PO 03/13/16 16:00 04/12/16 15:59 Future Hold 03/15/16 16:39 2.5 MG Ondansetron HCl (Zofran Inj) 4 mg Q4H PRN IV 03/14/16 08:45 04/13/16 08:44 03/16/16 16:05 4 MG Amiodarone HCl 200 mg 200 mg BIDM PO 03/14/16 16:30 04/13/16 16:29 03/17/16 07:32 200 MG Amiodarone HCL/ Dextrose 200 ml @ 16.7 mls/hr [id number] IV 03/14/16 18:16 04/13/16 18:15 03/17/16 03:26 16.7 MLS/HR Dopamine HCl/ Dextrose (DOPamine 400MG / D5W) 250 ml @ 0 mls/hr Q0M PRN IV 03/15/16 09:45 04/14/16 09:44 03/16/16 15:23 8 MLS/HR Fentanyl Citrate (Fentanyl Inj) 25 mcg Q2H PRN IV 03/16/16 09:45 03/30/16 09:44 03/16/16 11:32 25 MCG Bisacodyl (Dulcolax Supp) 10 mg DAILY PRN [place] 03/16/16 09:45 04/15/16 09:44 03/17/16 10:10 10 MG Insulin Glargine (Lantus Solostar Pen) 4 unit PM SC 03/16/16 21:00 04/15/16 20:59 Future Hold 03/16/16 21:18 4 UNIT Polyethylene (Miralax Powder Packet) 17 gm BID PO 03/17/16 09:00 04/16/16 08:59 03/17/16 07:33 17 GM Last 24 Hours Test 03/16/16 16:12 03/16/16 20:00 03/17/16 05:37 03/17/16 05:39 Bedside Glucose (other) 124 mg/dl Bedside Glucose 121 mg/dl 94 mg/dl White Blood Count 11.73 K/uL Red Blood Count 3.20 M/uL Hemoglobin 9.6 g/dL Hematocrit 28.0 % Mean Corpuscular Volume 87.5 fL Mean Corpuscular Hemoglobin 30.0 pg Mean Corpuscular Hemoglobin Concent 34.3 g/dl Platelet Count 121 K/uL Mean Platelet Volume 10.4 fL Neutrophils (%) (Auto) 79.4 % Lymphocytes (%) (Auto) 9.3 % Monocytes (%) (Auto) 8.8 % Eosinophils (%) (Auto) 2.1 % Basophils (%) (Auto) 0.1 % Neutrophils # (Auto) 9.31 K/uL Lymphocytes # (Auto) 1.09 K/uL Monocytes # (Auto) 1.03 K/uL Eosinophils # (Auto) 0.25 K/uL Basophils # (Auto) 0.01 K/uL RDW Standard Deviation 54.8 fL RDW Coefficient of Variation 17.0 % Immature Granulocyte % (Auto) 0.3 % Immature Granulocyte # (Auto) 0.04 K/uL Prothrombin Time 29.1 SECONDS Prothromb Time International Ratio 2.6 Sodium Level 134 mmol/L Potassium Level 4.3 mmol/L Chloride Level 102 mmol/L Carbon Dioxide Level 19 mmol/L Anion Gap 13.0 mmol/L Blood Urea Nitrogen 76 mg/dl Creatinine 5.80 mg/dl Est Creatinine Clear Calc Drug Dose 11.3 ml/min Estimated GFR () 9.7 Estimated GFR (Non- 8.4 BUN/Creatinine Ratio 13.1 Random Glucose 96 mg/dl Calcium Level 7.6 mg/dl Phosphorus Level 5.3 mg/dl Magnesium Level 2.2 mg/dl Test 03/17/16 11:05 Bedside Glucose (other) 142 mg/dl Assessment & Plan 80 yo male with atn and borderline oliguria on underlying ckd 4 w/ baseline creatinine about 2.0. EF 30% and w/ CAD; admitted after syncope from arrhythmia oliguric ATN on CKD 4, worsening creatinine though chemistries remain acceptable. may well need to start HD next 24-48 hrs for volume and clearance issues, though no urgent start needed today. cont strict I/O and bp/rhythm support. volume overload > trying to optimize heart rhythm with amio and dopamine; IVF off. had 80 mg iv lasix yesterday x 1, had bumex this am 1 mg x 1 Appreciate consult; will follow with you. Care coordinated w/ Andrew Mckenna
[2016-03-17] MEDS: DOPamine 400MG / D5W 400 MG IV PRN (22:06)
[2016-03-18] VITALS (34 sets, daily range): BP systolic 91–177; BP diastolic 44–106; PULSE 68–90; TEMP 36.5–37; O2SAT 91–97
[2016-03-18] MEDS: AMIODARONE / D5W 200 ML IV SCH (03:50)
[2016-03-18 06:26] LABS: HEMATOCRIT 27.2 % (42-52); MEAN CELL VOLUME 86.6 fL (80-100); MEAN CORPUSCULAR HEMOGLOBIN 30.3 pg (25-34); MEAN CORPUSCULAR HGB CONC 34.9 g/dl (32-36); MEAN PLATELET VOLUME 9.9 fL (7.4-10.4); PLATELET COUNT 117 K/uL (130-400); RED BLOOD COUNT 3.14 M/uL (4.7-6.1); WHITE BLOOD COUNT 10.81 K/uL (4.8-10.8)
[2016-03-18 06:51] LABS: INR 3.1 (0.9-1.1); PROTHROMBIN TIME (PATIENT) 35.2 SECONDS (9.0-12.0)
[2016-03-18 07:30] LABS: BUN/CREATININE RATIO 12.3 (10-20); MAGNESIUM 2.3 mg/dl (1.8-2.4); PHOSPHORUS 6.1 mg/dl (2.5-4.9); POTASSIUM 4.3 mmol/L (3.5-5.1)
[2016-03-18] MEDS: ATORVASTATIN 10 MG TAB PO SCH (07:33)
[2016-03-18] MEDS: CLOPIDOGREL BISULFATE 75 MG TAB PO SCH (07:33)
[2016-03-18] MEDS: POLYETHYLENE (MIRALAX) 17 GM PACK PO SCH ×2 (07:33→20:10)
[2016-03-18] MEDS: DOCUSATE SODIUM 100 MG CAP PO SCH ×2 (07:33→20:10)
[2016-03-18] MEDS: PANCREAZE (LIPASE 10,500U) CAP PO SCH ×3 (07:33→16:14)
[2016-03-18] MEDS: SERTRALINE HCL 50 MG TAB PO SCH (07:34)
[2016-03-18] MEDS: AMIODARONE 200 MG TAB PO SCH ×2 (07:34→16:14)
[2016-03-18] MEDS: CALCITRIOL 0.25 MCG CAP PO SCH (07:34)
[2016-03-18] MEDS: FLUTICASONE PROPIONATE NA SPR 16 GM BTL NAE SCH (07:34)
[2016-03-18] MEDS: TAMSULOSIN HCL 0.4 MG CAP PO SCH (07:34)
[2016-03-18] MEDS: PANTOprazole SOD 40 MG TAB PO SCH (07:34)
[2016-03-18 07:35] LABS: CALCIUM 7.8 mg/dl (8.5-10.1)
[2016-03-18] MEDS: INSULIN ASPART 100 UNITS/ML 3 ML PEN SC SCH ×4 (07:35→20:40)
[2016-03-18] MEDS ORDERED: PHYTONADIONE INJ 2.5 MG in SODIUM CHLORIDE 0.9% 50ML 50 ML IV STA (08:57)
--- NOTE | 2016-03-18 08:58 | Cardiology Follow-Up ---
Subjective General Date of Service: Mar 18, 2016. Chief Complaint: follow-up shortness of breath, congestive heart failure Pt evaluation today including: conversation w/ patient, physical exam History of Present Illness The patient is a 80 year old male seen in follow up. The patient remains in the ICU. He remains on a dopamine infusion at 2.5 mcg/kg /m, amiodarone at 0.5 mg/m. He small breakfast this morning. His only complaint is fatigue. He remains bedbound for the most part. He has always been small amounts of time in the bedside chair. He remains oliguric, with minimal urine output after Bumex yesterday. Creatinine has trended up from yesterday to 6 mg/dL. Coumadin has been on hold with last dose on 03/15/16 the INR however remains elevated at 3.1 mg /dl. Allergies Coded Allergies: Lisinopril (Verified Allergy, Unknown, RASH, 06/24/15) Spironolactone (Verified Allergy, Unknown, unkn, 06/24/15) Zolpidem (Verified Adverse Reaction, Unknown, HALLUCINATIONS, 06/24/15) Social History Smoking Status: Former Smoker Hx Tobacco Use In Past Year?: No Hx Alcohol Use - Type And Amou: No Hx Substance Use - Type And Am: No Problem List Medical Problems: (1) Acute bronchitis Status: Acute (2) Chronic renal disease Status: Acute (3) Elevated troponin Status: Acute (4) Influenza Status: Acute (5) Systolic congestive heart failure Status: Acute Physical Exam Vital Signs Last Vital Signs Documentation Date Time Temp Pulse Resp B/P Pulse Ox O2 Delivery O2 Flow Rate FiO2 03/18/16 08:00 37.0 81 18 95/65 95 Room Air 03/18/16 04:27 4.0 Physical Exam Constitutional: General Apperance: heathly-appearing Level of Distress: mild distress Psychiatric: Mental Status: active & alert Head: normocephalic Eyes: EOM: EOMI ENMT: normal ENT inspection, hearing grossly normal Neck: supple, no masses Lungs: Respiratory effort: no dyspnea, good air movement Auscultation: breath sounds normal, no wheezing Cardiovascular: Heart Auscultation: no murmurs, no rubs, no gallops, tachycardia, irregular rate rhythm Peripheral Pulses: Bruits: none appreciated Abdomen: Bowel Sounds: normal Inspection & Palpation: soft, no tenderness, guarding & rebound, no masses Musculoskeletal: normal strength (5/5 throughout) Neurologic: Cranial Nerves: grossly intact Sensation: grossly intact Assessment and Plan Assessment and Plan Impression: 80-year-old male with a history of CAD, remote left main and RCA stents, chronic A. fib, with cardiomyopathy out of proportion to his CAD who is now being followed in the ICU with with low cardiac output syndrome, cardiorenal syndrome. 1. Admitted with syncope, noted to have persistent bradycardia which required transient transcutaneous pacing and support with dopamine -underwent biventricular pacemaker AICD , 03/12/16 2. History of chronic atrial fibrillation (also frequent PVCs) for which he is on chronic anticoagulation, history of past strokes 3. Chronic systolic heart failure, LVEF 30-35%, RV dysfunction 4. 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 JOSUÉ, on baseline stage IV chronic kidney disease -likely due to poor renal perfusion , low cardiac output state, hypovolemia 6. History of hyperkalemia 7. Underlying COPD Recommendations: Continue dopamine for inotropic and BP support. Discontinue IV amiodarone. Continue oral amiodarone. Blood pressure has been too low back carvedilol or other afterload reduction agents. Will administer a 2.5 mg IV 1, in anticipation of need for dialysis access. Patient's significant other is his girlfriend, Lisa. I'll discuss progress with her when she rested. DVT prophylaxis: Coumadin has been held with last dose on 03/15/16, INR slightly above goal today. If remains of anticoagulation with subtherapeutic INR for a significant amount of time, will likely need DVT prophylaxis. Plavix has been continued due to his history of left main stenting. Would recommend limiting time off of anticoagulation due to history of cardioembolic stroke. Lines: Right upper extremity PICC line, Ruff catheter. Franky Morales, Laboratory Results Last 24 Hours Test 03/17/16 11:05 03/17/16 16:08 03/18/16 05:22 03/18/16 05:57 Bedside Glucose (other) 142 mg/dl 173 mg/dl Bedside Glucose 132 mg/dl White Blood Count 10.81 K/uL Red Blood Count 3.14 M/uL Hemoglobin 9.5 g/dL Hematocrit 27.2 % Mean Corpuscular Volume 86.6 fL Mean Corpuscular Hemoglobin 30.3 pg Mean Corpuscular Hemoglobin Concent 34.9 g/dl RDW Standard Deviation 54.2 fL RDW Coefficient of Variation 17.2 % Platelet Count 117 K/uL Mean Platelet Volume 9.9 fL Prothrombin Time 35.2 SECONDS Prothromb Time International Ratio 3.1 Sodium Level 134 mmol/L Potassium Level 4.3 mmol/L Chloride Level 100 mmol/L Carbon Dioxide Level 19 mmol/L Anion Gap 15.0 mmol/L Blood Urea Nitrogen 75 mg/dl Creatinine 6.00 mg/dl Est Creatinine Clear Calc Drug Dose 10.9 ml/min Estimated GFR () 9.3 Estimated GFR (Non- 8.1 BUN/Creatinine Ratio 12.3 Random Glucose 127 mg/dl Calcium Level 7.8 mg/dl Phosphorus Level 6.1 mg/dl Magnesium Level 2.3 mg/dl
[2016-03-18 09:33] LABS: HEPATITIS B AB NEG
--- NOTE | 2016-03-18 15:31 | Nephrology Progress Note ---
Nephrology Progress Note Date of Service: Mar 18, 2016. Subjective 700cc uop so far today; still on amio; dopa just turned off when I saw him; extremely tired; no n/v; poor/touch appetite; not overtly dyspneic Objective Date Time Temp Pulse Resp B/P Pulse Ox O2 Delivery O2 Flow Rate FiO2 03/18/16 14:00 87 12 149/89 95 Room Air 03/18/16 13:29 86 11 140/63 93 Room Air 03/18/16 13:00 80 13 147/59 96 Room Air 03/18/16 12:00 Room Air 03/18/16 12:00 36.9 88 20 165/95 97 Room Air 03/18/16 10:00 86 16 91/75 95 Room Air 03/18/16 08:00 37.0 81 18 95/65 95 Room Air 03/18/16 08:00 Room Air 03/18/16 06:00 87 17 95 03/18/16 05:59 79 16 101/63 93 03/18/16 05:02 78 12 129/44 91 03/18/16 05:00 82 13 95 03/18/16 04:27 94 Room Air 4.0 03/18/16 04:00 82 14 94 03/18/16 03:59 36.7 78 12 132/61 94 03/18/16 03:00 86 12 96 03/18/16 02:00 75 10 93 03/18/16 01:59 36.8 83 12 107/71 94 03/18/16 01:00 80 20 96 03/18/16 00:08 94 Room Air 4.0 03/18/16 00:07 84 12 107/59 03/18/16 00:00 75 19 95 03/17/16 23:00 87 19 95 03/17/16 22:00 81 19 96 03/17/16 21:59 84 10 102/45 95 03/17/16 21:00 88 12 94 03/17/16 20:59 83 10 100/53 95 03/17/16 20:11 92 12 133/59 93 03/17/16 20:00 94 Room Air 4.0 03/17/16 20:00 36.8 86 13 03/17/16 19:00 79 22 149/49 93 03/17/16 18:00 81 14 100/60 93 Room Air 03/17/16 16:00 Room Air 03/17/16 16:00 37.1 84 20 128/63 94 Room Air Physical Exam: General-fatigued, oriented x 3, on RA Eyes-no sceral icterus ENT-dry mm Neck-supple Lungs-diminished and rhoncherous in places Heart-RRR w/ frequent premature beats Abdomen-bs+ s/nt/nd; barlow present Extremities-no c/c; 2+ ankle edema + BUE edema Neuro-[place], notable myoclonic jerks today Current Inpatient Medications Medications (Trade) Dose Ordered Sig/Quoc Route Start Time Stop Time Status Last Admin Dose Admin Nitroglycerin (Nitrostat Tab) 0.4 mg UD PRN SL 03/08/16 17:00 04/07/16 16:59 03/14/16 08:34 0.4 MG Glucose (Glucose 40% Gel) 15-30 GRAMS 15 GRAMS... UD PRN PO 03/08/16 17:15 04/07/16 17:14 Glucose (Glucose Chew Tab) 4-8 Tablets 4 Tabl... UD PRN PO 03/08/16 17:15 04/07/16 17:14 Dextrose (Dextrose 50% 50ML Syringe) 25-50ML OF 50% DW IV FOR... UD PRN IV 03/08/16 17:15 04/07/16 17:14 Glucagon (Glucagon Inj) 1 mg UD PRN SQ 03/08/16 17:15 04/07/16 17:14 Miscellaneous Information (Consult Glycemic Management Pharmacy) 1 ea UD PRN N/A 03/08/16 19:45 04/07/16 19:44 Atorvastatin Calcium (Lipitor Tab) 10 mg DAILY PO 03/09/16 09:00 04/08/16 08:59 03/18/16 07:33 10 MG Calcitriol (Rocaltrol Cap) 0.25 mcg DAILY PO 03/09/16 09:00 04/08/16 08:59 03/18/16 07:34 0.25 MCG Clopidogrel Bisulfate (plAVix TAB) 75 mg DAILY PO 03/09/16 09:00 04/08/16 08:59 Future hold 03/18/16 07:33 75 MG Fluticasone Propionate (Flonase Nasal [place]) 2 sprays DAILY RICHA 03/09/16 09:00 04/08/16 08:59 03/18/16 07:34 2 SPRAYS Levalbuterol (Xopenex Hfa Inhaler) 2 puffs Q4H PRN INH 03/08/16 17:30 04/07/16 17:29 Sertraline HCl (Zoloft Tab) 25 mg DAILY PO 03/09/16 09:00 04/08/16 08:59 03/18/16 07:34 25 MG Tamsulosin HCl (Flomax Cap) 0.4 mg DAILY PO 03/09/16 09:00 04/08/16 08:59 03/18/16 07:34 0.4 MG Miscellaneous Information (Order Awaiting Action) 1 ea QS N/A 03/08/16 19:45 04/07/16 19:44 Amylase/Lipase/ Protease (Pancreaze (Lipase 10,500U) Cap) 2 cap TIDM PO 03/09/16 07:15 04/08/16 07:29 03/18/16 11:41 2 CAP Amylase/Lipase/ Protease (Pancreaze (Lipase 10,500U) Cap) 1-2 CAPS WITH SNACKS UD PRN PO 03/08/16 19:45 04/07/16 19:44 Docusate Sodium (coLACE CAP) 100 mg BID PO 03/10/16 18:00 04/09/16 17:59 03/18/16 07:33 100 MG Polyethylene (Miralax Powder Packet) 17 gm Q6H PRN PO 03/10/16 21:15 04/09/16 21:14 03/13/16 10:48 17 GM Pantoprazole Sodium (Protonix Tab) 40 mg QAM PO 03/12/16 09:00 04/11/16 08:59 03/18/16 07:34 40 MG Acetaminophen/ Codeine Phosphate (Tylenol w/ Codeine #3 Tab) 1 tab for pain scale 4-6 2 t... Q4H PRN PO 03/12/16 09:30 04/11/16 09:29 03/16/16 05:57 1 TAB Acetaminophen (Tylenol Tab) 650 mg Q4H PRN PO 03/12/16 09:30 04/11/16 09:29 03/17/16 12:53 650 MG Insulin Aspart (novoLOG ASPART) SLIDING SCALE G... ACHS SC 03/12/16 16:00 04/11/16 15:59 03/18/16 11:42 2 UNITS Warfarin Sodium (Coumadin Tab) 2.5 mg DAILY@16 PO 03/13/16 16:00 04/12/16 15:59 Future Hold 03/15/16 16:39 2.5 MG Ondansetron HCl (Zofran Inj) 4 mg Q4H PRN IV 03/14/16 08:45 04/13/16 08:44 03/16/16 16:05 4 MG Amiodarone HCl 200 mg 200 mg BIDM PO 03/14/16 16:30 04/13/16 16:29 03/18/16 07:34 200 MG Dopamine HCl/ Dextrose (DOPamine 400MG / D5W) 250 ml @ 0 mls/hr Q0M PRN IV 03/15/16 09:45 04/14/16 09:44 03/17/16 22:06 16.7 MLS/HR Bisacodyl (Dulcolax Supp) 10 mg DAILY PRN GA 03/16/16 09:45 04/15/16 09:44 03/17/16 10:10 10 MG Insulin Glargine (Lantus Solostar Pen) 4 unit PM SC 03/16/16 21:00 04/15/16 20:59 Future Hold 03/16/16 21:18 4 UNIT Polyethylene (Miralax Powder Packet) 17 gm BID PO 03/17/16 09:00 04/16/16 08:59 03/18/16 07:33 17 GM Last 24 Hours Test 03/17/16 16:08 03/18/16 05:22 03/18/16 05:57 03/18/16 11:27 Bedside Glucose (other) 173 mg/dl 154 mg/dl Bedside Glucose 132 mg/dl White Blood Count 10.81 K/uL Red Blood Count 3.14 M/uL Hemoglobin 9.5 g/dL Hematocrit 27.2 % Mean Corpuscular Volume 86.6 fL Mean Corpuscular Hemoglobin 30.3 pg Mean Corpuscular Hemoglobin Concent 34.9 g/dl RDW Standard Deviation 54.2 fL RDW Coefficient of Variation 17.2 % Platelet Count 117 K/uL Mean Platelet Volume 9.9 fL Prothrombin Time 35.2 SECONDS Prothromb Time International Ratio 3.1 Sodium Level 134 mmol/L Potassium Level 4.3 mmol/L Chloride Level 100 mmol/L Carbon Dioxide Level 19 mmol/L Anion Gap 15.0 mmol/L Blood Urea Nitrogen 75 mg/dl Creatinine 6.00 mg/dl Est Creatinine Clear Calc Drug Dose 10.9 ml/min Estimated GFR () 9.3 Estimated GFR (Non- 8.1 BUN/Creatinine Ratio 12.3 Random Glucose 127 mg/dl Calcium Level 7.8 mg/dl Phosphorus Level 6.1 mg/dl Magnesium Level 2.3 mg/dl Hepatitis B Surface Antigen NEG Hepatitis B Surface Antibody NEG Assessment & Plan 80 yo male with atn and borderline oliguria on underlying ckd 4 w/ baseline creatinine about 2.0. EF 30% and w/ CAD; admitted after syncope from arrhythmia borderline oliguric ATN on CKD 4, worsening creatinine though we may be nearing plateau/ rate of rise has slowed. chemistries remain acceptable. may well need to start HD next 24-48 hrs for volume and clearance issues, though no urgent start needed today. cont strict I/O, daily/bid bmp and bp/rhythm support. volume overload > trying to optimize heart rhythm with amio; IVF off. had 80 mg iv lasix 12/16 x 1, had bumex 12/17 1 mg x 1; no diuretics today and would use prn only Appreciate consult; will follow with you. Care coordinated w/ Andrew Mckenna
--- NOTE | 2016-03-18 16:14 | CRITICAL CARE PROGRESS NOTE ---
DATE: 03/18/2016 SUBJECTIVE: There were no acute events overnight. The patient has no specific complaints other than he feels lousy. He is starting to make more urine today and has not had any diuretics. He was on amiodarone and dopamine infusions this morning and since then the amiodarone has been discontinued. He remains on oral amiodarone. He is having bowel movements. PHYSICAL EXAMINATION: VITAL SIGNS: Maximum temperature 37.2, heart rate 70s-80s, respiratory rate 12-16, blood pressure 101-149/40s-70s, oxygen saturation 95% on room air. A 24-hour fluid balance positive 267 mL. GENERAL: He is awake and sitting in the bed. He is slow to respond at times but stays awake more easily than he did yesterday. LUNGS: Remarkably clear with the exception of decreased breath sounds at the bases. HEART: Irregular. I do not hear any murmurs. CHEST: Incision in the left upper chest is well approximated and without drainage. ABDOMEN: Firm, mildly distended, nontender. Active bowel sounds. EXTREMITIES: With 2+ edema of the hands and trace to 1+ in the feet. NEUROLOGIC: He is able to carry on a conversation and move all 4 extremities. His speech is clear. LABORATORY DATA: White blood cell count 10.81, hemoglobin 9.5, hematocrit 27.2, platelets 117. Sodium 134, potassium 4.3, chloride 100, CO2 of 19, BUN 75, creatinine 6, blood sugar 127, calcium 7.8, phosphorus 6.1, magnesium 2.3. INR 3.1. Urine culture 03/14/2016 no growth. MEDICATIONS AND INFUSIONS: Acetaminophen, Tylenol No. 3, amiodarone, Pancrease, atorvastatin, Dulcolax, Rocaltrol, Plavix, Colace, dopamine, Flonase, insulin sliding scale, NovoLog, Xopenex, nitroglycerin, Zofran, Protonix, MiraLax, Zoloft, Flomax. IMPRESSION: 1. Acute kidney injury, nonoliguric. His urine output continues to increase, although it is not clear that he will avert hemodialysis at this point. 2. Cardiomyopathy, ejection fraction 30%-35%. 3. Chronic atrial fibrillation status post biventricular pacemaker on 03/12/2016. He has been transitioned to oral amiodarone and the dopamine is being weaned off. 4. Diabetes mellitus with satisfactory blood sugars. 5. Constipation, improved. 6. Decreased platelets, likely secondary to bleeding after his pacemaker. This could be secondary to medications as well. It is relatively stable. 7. History of cerebrovascular accident. 8. History of coronary artery disease, stenting, he is on Plavix. 9. Encephalopathy, suspected secondary to elevated BUN. PLAN: 1. Attempt to wean off the dopamine. 2. Continue to follow PRP and await return of his renal function or the need for hemodialysis. 3. Incentive spirometry. 4. Continue to hold Coumadin. 5. The amiodarone infusion has been discontinued. 6. Continue Plavix. 7. His Lantus appears to have been stopped by the pharmacy as he is not eating very well. 8. Follow the platelets. Thank you for asking me to see this nice gentleman. Please call me with any questions or concerns.
--- NOTE | 2016-03-18 17:09 | Progress Note ---
Medicine Progress Note Date & Time of Visit: Mar 18, 2016 at 17:06. Subjective Patient seen and examined. Is without complaints today. Feels tired. Objective Last 8 Hrs Date Time Temp Pulse Resp B/P Pulse Ox O2 Delivery O2 Flow Rate FiO2 03/18/16 16:00 36.6 79 16 110/50 96 Room Air 03/18/16 16:00 Room Air 03/18/16 15:29 68 18 116/56 94 Room Air 03/18/16 14:59 90 23 119/61 95 Room Air 03/18/16 14:29 84 16 137/62 94 Room Air 03/18/16 14:00 87 12 149/89 95 Room Air 03/18/16 13:29 86 11 140/63 93 Room Air 03/18/16 13:00 80 13 147/59 96 Room Air 03/18/16 12:00 Room Air 03/18/16 12:00 36.9 88 20 165/95 97 Room Air 03/18/16 10:00 86 16 91/75 95 Room Air Physical Exam: General-awake; alert; NAD Eyes-EOMI; no scleral icterus Neck-no stridor; trachea midline Lungs-coarse breath sounds Heart-irregularly irregular Abdomen-soft; NTND; nBS Extremities-2+ peripheral pulses; 1+ le edema; edema of ue, r>l Neuro-no gross focal deficits Laboratory Results: Last 24 Hours Test 03/18/16 05:22 03/18/16 05:57 03/18/16 11:27 03/18/16 16:04 Bedside Glucose 132 mg/dl 160 mg/dl White Blood Count 10.81 K/uL Red Blood Count 3.14 M/uL Hemoglobin 9.5 g/dL Hematocrit 27.2 % Mean Corpuscular Volume 86.6 fL Mean Corpuscular Hemoglobin 30.3 pg Mean Corpuscular Hemoglobin Concent 34.9 g/dl RDW Standard Deviation 54.2 fL RDW Coefficient of Variation 17.2 % Platelet Count 117 K/uL Mean Platelet Volume 9.9 fL Prothrombin Time 35.2 SECONDS Prothromb Time International Ratio 3.1 Sodium Level 134 mmol/L Potassium Level 4.3 mmol/L Chloride Level 100 mmol/L Carbon Dioxide Level 19 mmol/L Anion Gap 15.0 mmol/L Blood Urea Nitrogen 75 mg/dl Creatinine 6.00 mg/dl Est Creatinine Clear Calc Drug Dose 10.9 ml/min Estimated GFR () 9.3 Estimated GFR (Non- 8.1 BUN/Creatinine Ratio 12.3 Random Glucose 127 mg/dl Calcium Level 7.8 mg/dl Phosphorus Level 6.1 mg/dl Magnesium Level 2.3 mg/dl Hepatitis B Surface Antigen NEG Hepatitis B Surface Antibody NEG Bedside Glucose (other) 154 mg/dl Assessment & Plan 80 year old male with history of CAD, A fib on Coumadin, 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 Found to have symptomatic bradycardia, sick sinus syndrome, s/p biventricular pacemaker 03/12/16. FALL, PRESYNCOPE - likely 2/2 symptomatic bradycardia - Cardiology consulted - initially required pressure support with dopamine drip, then weaned off - now back on dopamine for pressure support - also initially had temporary pacemaker - s/p biventricular pacemaker 03/12/16 - continued on amiodarone for ectopy HISTORY OF NON ISCHEMIC CARDIOMYOPATHY - continue atorvastatin, clopidogrel - holding carvedilol, torsemide and Entresto given pressor requirement and JOSUÉ A FIB - Coumadin initially held for supratherapeutic INR - Coumadin then restarted post-procedure - Coumadin back on hold in case of need for line placement - continued on Amiodarone DM 2 - glycemic pharmacy consulted - continue insulin therapy Acute renal insufficiency (baseline CKD stage 3) - nephrology consulted - creatinine up-trending - received albumin and IVF's with sodium bicarbonate - intermittently diuresed with furosemide vs bumetanide - holding torsemide and Entresto (home medications) - renal ultrasound with mild hydronephrosis, not thought to be contributory - urine output improving Urinary retention - Urology consulted - barlow placed - continue tamsulosin HISTORY OF CVA - continue Plavix, Atorvastatin - Coumadin on hold in case of need for line placement HISTORY OF PANCREATIC CANCER - s/p Whipple procedure - continue Pancreaze DVT prophylaxis - Coumadin on hold - SCD's DISPO PT recommending acute rehab when medically stable Code status Full code as per patient Discharge planning: rehab hospital Consultants: Critical care Nephrology Cardiology Urology Procedures: CT head Interval right parietal infarct. No acute intracranial findings. CT c-spine Findings of severe degenerative change combined with extensive posterior laminectomy defects. No acute process is appreciated. TTE * The study was technically limited. * The left ventricle is moderately dilated. * Left ventricular systolic function is moderate to severely reduced. * Ejection Fraction = 30-35%. * The right ventricular systolic function is normal. * There is mild mitral regurgitation. Renal ultrasound 1. there is mild hydronephrosis right kidney. 2. Several left renal cyst. 3. Complex cyst mid to lower aspect right kidney. Current Inpatient Medications: Current Inpatient Medications Medications (Trade) Dose Ordered Sig/Quoc Route Start Time Stop Time Status Last Admin Dose Admin Nitroglycerin (Nitrostat Tab) 0.4 mg UD PRN SL 03/08/16 17:00 04/07/16 16:59 03/14/16 08:34 0.4 MG Glucose (Glucose 40% Gel) 15-30 GRAMS 15 GRAMS... UD PRN PO 03/08/16 17:15 04/07/16 17:14 Glucose (Glucose Chew Tab) 4-8 Tablets 4 Tabl... UD PRN PO 03/08/16 17:15 04/07/16 17:14 Dextrose (Dextrose 50% 50ML Syringe) 25-50ML OF 50% DW IV FOR... UD PRN IV 03/08/16 17:15 04/07/16 17:14 Glucagon (Glucagon Inj) 1 mg UD PRN SQ 03/08/16 17:15 04/07/16 17:14 Miscellaneous Information (Consult Glycemic Management Pharmacy) 1 ea UD PRN N/A 03/08/16 19:45 04/07/16 19:44 Atorvastatin Calcium (Lipitor Tab) 10 mg DAILY PO 03/09/16 09:00 04/08/16 08:59 03/18/16 07:33 10 MG Calcitriol (Rocaltrol Cap) 0.25 mcg DAILY PO 03/09/16 09:00 04/08/16 08:59 03/18/16 07:34 0.25 MCG Clopidogrel Bisulfate (plAVix TAB) 75 mg DAILY PO 03/09/16 09:00 04/08/16 08:59 Future hold 03/18/16 07:33 75 MG Fluticasone Propionate (Flonase Nasal [place]) 2 sprays DAILY RICHA 03/09/16 09:00 04/08/16 08:59 03/18/16 07:34 2 SPRAYS Levalbuterol (Xopenex Hfa Inhaler) 2 puffs Q4H PRN INH 03/08/16 17:30 04/07/16 17:29 Sertraline HCl (Zoloft Tab) 25 mg DAILY PO 03/09/16 09:00 04/08/16 08:59 03/18/16 07:34 25 MG Tamsulosin HCl (Flomax Cap) 0.4 mg DAILY PO 03/09/16 09:00 04/08/16 08:59 03/18/16 07:34 0.4 MG Miscellaneous Information (Order Awaiting Action) 1 ea QS N/A 03/08/16 19:45 04/07/16 19:44 Amylase/Lipase/ Protease (Pancreaze (Lipase 10,500U) Cap) 2 cap TIDM PO 03/09/16 07:15 04/08/16 07:29 03/18/16 16:14 2 CAP Amylase/Lipase/ Protease (Pancreaze (Lipase 10,500U) Cap) 1-2 CAPS WITH SNACKS UD PRN PO 03/08/16 19:45 04/07/16 19:44 Docusate Sodium (coLACE CAP) 100 mg BID PO 03/10/16 18:00 04/09/16 17:59 03/18/16 07:33 100 MG Polyethylene (Miralax Powder Packet) 17 gm Q6H PRN PO 03/10/16 21:15 04/09/16 21:14 03/13/16 10:48 17 GM Pantoprazole Sodium (Protonix Tab) 40 mg QAM PO 03/12/16 09:00 04/11/16 08:59 03/18/16 07:34 40 MG Acetaminophen/ Codeine Phosphate (Tylenol w/ Codeine #3 Tab) 1 tab for pain scale 4-6 2 t... Q4H PRN PO 03/12/16 09:30 04/11/16 09:29 03/16/16 05:57 1 TAB Acetaminophen (Tylenol Tab) 650 mg Q4H PRN PO 03/12/16 09:30 04/11/16 09:29 03/17/16 12:53 650 MG Insulin Aspart (novoLOG ASPART) SLIDING SCALE G... ACHS SC 03/12/16 16:00 04/11/16 15:59 03/18/16 16:39 4 UNITS Warfarin Sodium (Coumadin Tab) 2.5 mg DAILY@16 PO 03/13/16 16:00 04/12/16 15:59 Future Hold 03/15/16 16:39 2.5 MG Ondansetron HCl (Zofran Inj) 4 mg Q4H PRN IV 03/14/16 08:45 04/13/16 08:44 03/16/16 16:05 4 MG Amiodarone HCl 200 mg 200 mg BIDM PO 03/14/16 16:30 04/13/16 16:29 03/18/16 16:14 200 MG Dopamine HCl/ Dextrose (DOPamine 400MG / D5W) 250 ml @ 0 mls/hr Q0M PRN IV 03/15/16 09:45 04/14/16 09:44 03/17/16 22:06 16.7 MLS/HR Bisacodyl (Dulcolax Supp) 10 mg DAILY PRN GA 03/16/16 09:45 04/15/16 09:44 03/17/16 10:10 10 MG Insulin Glargine (Lantus Solostar Pen) 4 unit PM SC 03/16/16 21:00 04/15/16 20:59 Future Hold 03/16/16 21:18 4 UNIT Polyethylene (Miralax Powder Packet) 17 gm BID PO 03/17/16 09:00 04/16/16 08:59 03/18/16 07:33 17 GM
[2016-03-19] VITALS (53 sets, daily range): BP systolic 61–137; BP diastolic 32–66; PULSE 51–116; TEMP 36.6–38.6; O2SAT 90–99
[2016-03-19 05:37] LABS: MEAN CELL VOLUME 85.5 fL (80-100); MEAN CORPUSCULAR HEMOGLOBIN 29.3 pg (25-34); MEAN CORPUSCULAR HGB CONC 34.2 g/dl (32-36); MEAN PLATELET VOLUME 10.3 fL (7.4-10.4); PLATELET COUNT 127 K/uL (130-400); RED BLOOD COUNT 3.04 M/uL (4.7-6.1); WHITE BLOOD COUNT 9.33 K/uL (4.8-10.8)
[2016-03-19 05:44] LABS: INR 1.6 (0.9-1.1); PROTHROMBIN TIME (PATIENT) 17.1 SECONDS (9.0-12.0)
[2016-03-19] MEDS: ACETAMINOPHEN/CODEINE 300/30MG TAB PO PRN (06:03)
[2016-03-19 06:26] LABS: BUN/CREATININE RATIO 12.1 (10-20); CREATININE 6.6 mg/dl (0.60-1.40); MAGNESIUM 2.3 mg/dl (1.8-2.4); PHOSPHORUS 6.2 mg/dl (2.5-4.9)
[2016-03-19 06:34] LABS: CALCIUM 7.6 mg/dl (8.5-10.1)
[2016-03-19] MEDS ORDERED: VANCOMYCIN INJ 500 MG in SODIUM CHLORIDE 0.9% 250ML 250 ML IV STA (06:58)
[2016-03-19] MEDS ORDERED: VANCOMYCIN INJ 1,800 MG in SODIUM CHLORIDE 0.9% 500ML 500 ML IV STA (07:02)
[2016-03-19] MEDS: PANCREAZE (LIPASE 10,500U) CAP PO SCH ×3 (07:15→16:30)
[2016-03-19] MEDS: AMIODARONE 200 MG TAB PO SCH ×2 (07:15→16:30)
[2016-03-19] MEDS ORDERED: MEPERIDINE HCL 25 MG/ML CARP ONE (07:20)
--- NOTE | 2016-03-19 07:29 | Nephrology Progress Note ---
Nephrology Progress Note Date of Service: Mar 19, 2016. Subjective 80 yo male with regis/atn whose urine output has increased over the weekend. unfortunately, creatinine continues to trend up. last night, pt started to have chills and rigors. continues to have rigors. antibiotics have been started. Objective Date Time Temp Pulse Resp B/P Pulse Ox O2 Delivery O2 Flow Rate FiO2 03/19/16 06:00 79 18 95 03/19/16 05:59 82 18 98/50 93 03/19/16 05:00 79 18 96 03/19/16 04:09 94 Room Air 03/19/16 04:00 36.9 88 18 96 03/19/16 03:59 84 27 116/58 97 03/19/16 03:00 86 16 98 03/19/16 02:07 94 16 132/59 94 03/19/16 02:00 87 13 91 03/19/16 01:00 91 13 96 03/19/16 00:00 36.6 85 13 137/58 93 03/19/16 00:00 94 Room Air 03/18/16 23:59 83 13 124/106 95 03/18/16 23:00 79 13 95 03/18/16 22:59 75 13 151/68 95 03/18/16 22:00 85 12 96 03/18/16 21:00 80 14 97 03/18/16 20:59 77 14 143/79 96 03/18/16 20:09 36.5 80 14 177/78 95 03/18/16 20:00 94 Room Air 03/18/16 19:00 80 14 95 03/18/16 18:00 73 14 105/45 96 Room Air 03/18/16 16:00 36.6 79 16 110/50 96 Room Air 03/18/16 16:00 Room Air 03/18/16 15:29 68 18 116/56 94 Room Air 03/18/16 14:59 90 23 119/61 95 Room Air 03/18/16 14:29 84 16 137/62 94 Room Air 03/18/16 14:00 87 12 149/89 95 Room Air 03/18/16 13:29 86 11 140/63 93 Room Air 03/18/16 13:00 80 13 147/59 96 Room Air 03/18/16 12:00 Room Air 03/18/16 12:00 36.9 88 20 165/95 97 Room Air 03/18/16 10:00 86 16 91/75 95 Room Air 03/18/16 08:00 37.0 81 18 95/65 95 Room Air 03/18/16 08:00 Room Air Physical Exam: General-aaox2, rigors Eyes-no sceral icterus ENT-mmm Neck-supple Lungs-clear Heart-irregular, tachy Abdomen-bs+ s/nt/nd Extremities-+2 edema Neuro-rigors, chills Current Inpatient Medications Medications (Trade) Dose Ordered Sig/Quoc Route Start Time Stop Time Status Last Admin Dose Admin Nitroglycerin (Nitrostat Tab) 0.4 mg UD PRN SL 03/08/16 17:00 04/07/16 16:59 03/14/16 08:34 0.4 MG Glucose (Glucose 40% Gel) 15-30 GRAMS 15 GRAMS... UD PRN PO 03/08/16 17:15 04/07/16 17:14 Glucose (Glucose Chew Tab) 4-8 Tablets 4 Tabl... UD PRN PO 03/08/16 17:15 04/07/16 17:14 Dextrose (Dextrose 50% 50ML Syringe) 25-50ML OF 50% DW IV FOR... UD PRN IV 03/08/16 17:15 04/07/16 17:14 Glucagon (Glucagon Inj) 1 mg UD PRN SQ 03/08/16 17:15 04/07/16 17:14 Miscellaneous Information (Consult Glycemic Management Pharmacy) 1 ea UD PRN N/A 03/08/16 19:45 04/07/16 19:44 Atorvastatin Calcium (Lipitor Tab) 10 mg DAILY PO 03/09/16 09:00 04/08/16 08:59 03/18/16 07:33 10 MG Calcitriol (Rocaltrol Cap) 0.25 mcg DAILY PO 03/09/16 09:00 04/08/16 08:59 03/18/16 07:34 0.25 MCG Clopidogrel Bisulfate (plAVix TAB) 75 mg DAILY PO 03/09/16 09:00 04/08/16 08:59 Future hold 03/18/16 07:33 75 MG Fluticasone Propionate (Flonase Nasal [place]) 2 sprays DAILY RICHA 03/09/16 09:00 04/08/16 08:59 03/18/16 07:34 2 SPRAYS Levalbuterol (Xopenex Hfa Inhaler) 2 puffs Q4H PRN INH 03/08/16 17:30 04/07/16 17:29 Sertraline HCl (Zoloft Tab) 25 mg DAILY PO 03/09/16 09:00 04/08/16 08:59 03/18/16 07:34 25 MG Tamsulosin HCl (Flomax Cap) 0.4 mg DAILY PO 03/09/16 09:00 04/08/16 08:59 03/18/16 07:34 0.4 MG Miscellaneous Information (Order Awaiting Action) 1 ea QS N/A 03/08/16 19:45 04/07/16 19:44 Amylase/Lipase/ Protease (Pancreaze (Lipase 10,500U) Cap) 2 cap TIDM PO 03/09/16 07:15 04/08/16 07:29 03/18/16 16:14 2 CAP Amylase/Lipase/ Protease (Pancreaze (Lipase 10,500U) Cap) 1-2 CAPS WITH SNACKS UD PRN PO 03/08/16 19:45 04/07/16 19:44 Docusate Sodium (coLACE CAP) 100 mg BID PO 03/10/16 18:00 04/09/16 17:59 03/18/16 20:10 100 MG Polyethylene (Miralax Powder Packet) 17 gm Q6H PRN PO 03/10/16 21:15 04/09/16 21:14 03/13/16 10:48 17 GM Pantoprazole Sodium (Protonix Tab) 40 mg QAM PO 03/12/16 09:00 04/11/16 08:59 03/18/16 07:34 40 MG Acetaminophen/ Codeine Phosphate (Tylenol w/ Codeine #3 Tab) 1 tab for pain scale 4-6 2 t... Q4H PRN PO 03/12/16 09:30 04/11/16 09:29 03/19/16 06:03 2 TAB Acetaminophen (Tylenol Tab) 650 mg Q4H PRN PO 03/12/16 09:30 04/11/16 09:29 03/17/16 12:53 650 MG Insulin Aspart (novoLOG ASPART) SLIDING SCALE G... ACHS SC 03/12/16 16:00 04/11/16 15:59 03/18/16 16:39 4 UNITS Warfarin Sodium (Coumadin Tab) 2.5 mg DAILY@16 PO 03/13/16 16:00 04/12/16 15:59 Future Hold 03/15/16 16:39 2.5 MG Ondansetron HCl (Zofran Inj) 4 mg Q4H PRN IV 03/14/16 08:45 04/13/16 08:44 03/16/16 16:05 4 MG Amiodarone HCl 200 mg 200 mg BIDM PO 03/14/16 16:30 04/13/16 16:29 03/18/16 16:14 200 MG Dopamine HCl/ Dextrose (DOPamine 400MG / D5W) 250 ml @ 0 mls/hr Q0M PRN IV 03/15/16 09:45 04/14/16 09:44 03/17/16 22:06 16.7 MLS/HR Bisacodyl (Dulcolax Supp) 10 mg DAILY PRN ND 03/16/16 09:45 04/15/16 09:44 03/17/16 10:10 10 MG Insulin Glargine (Lantus Solostar Pen) 4 unit PM SC 03/16/16 21:00 04/15/16 20:59 Future Hold 03/16/16 21:18 4 UNIT Polyethylene 17 gm 17 gm BID PO 03/17/16 09:00 04/16/16 08:59 03/18/16 20:10 17 GM Vancomycin HCl 500 mg/Sodium Chloride 260 ml @ 125 mls/hr NOW STAT IV 03/19/16 06:58 03/19/16 09:02 UNV Vancomycin HCl/ Sodium Chloride (Vancomycin Inj/ Nss 500ml) 536 ml @ 200 mls/hr NOW STAT IV 03/19/16 07:02 03/19/16 09:42 Last 24 Hours Test 03/18/16 11:27 03/18/16 16:04 03/18/16 20:14 03/19/16 05:00 Bedside Glucose (other) 154 mg/dl Bedside Glucose 160 mg/dl 139 mg/dl White Blood Count 9.33 K/uL Red Blood Count 3.04 M/uL Hemoglobin 8.9 g/dL Hematocrit 26.0 % Mean Corpuscular Volume 85.5 fL Mean Corpuscular Hemoglobin 29.3 pg Mean Corpuscular Hemoglobin Concent 34.2 g/dl RDW Standard Deviation 53.6 fL RDW Coefficient of Variation 17.2 % Platelet Count 127 K/uL Mean Platelet Volume 10.3 fL Prothrombin Time 17.1 SECONDS Prothromb Time International Ratio 1.6 Sodium Level 133 mmol/L Potassium Level 4.0 mmol/L Chloride Level 101 mmol/L Carbon Dioxide Level 18 mmol/L Anion Gap 14.0 mmol/L Blood Urea Nitrogen 80 mg/dl Creatinine 6.60 mg/dl Est Creatinine Clear Calc Drug Dose 9.9 ml/min Estimated GFR () 8.3 Estimated GFR (Non- 7.2 BUN/Creatinine Ratio 12.1 Random Glucose 117 mg/dl Calcium Level 7.6 mg/dl Phosphorus Level 6.2 mg/dl Magnesium Level 2.3 mg/dl Test 03/19/16 05:30 Bedside Glucose 116 mg/dl Date/Time Source Procedure Growth Status 03/19/16 06:53 Blood Blood Culture Pending Tiera Batch 03/19/16 06:53 Blood Blood Culture Pending Tiera Batch Assessment & Plan regis-urinating well. was hoping creatinine was to have peaked and started to improve. however creatinine continues to trend up. now with rigors and chills and may be becoming septic which would be another insult to the kidneys. discussed further with Dr. Lau. inr is trending down. working on giving him antibiotics and will re-evaluate in the afternoon. despite bun and creatinine trending up, the k and bicarb are stable. does have edema and is puffy but still oxygenating well. concern of mental status worsening as creatinine continues to trend up however feel his rigors/chills may be more an element of sepsis than uremia. may initiate dialysis this afternoon depending on clinical presentation in the afternoon after rigors improve. .
[2016-03-19] MEDS ORDERED: VANCOMYCIN CONSULT ACTIVE PRN (07:30)
[2016-03-19] MEDS ORDERED: MEPERIDINE HCL 25 MG/ML CARP IV STA (07:30)
[2016-03-19] MEDS: INSULIN ASPART 100 UNITS/ML 3 ML PEN SC SCH ×4 (07:54→21:00)
[2016-03-19] MEDS: CEFEPIME IV 500 MG in DEXTROSE 5% 100ML 100 ML IV SCH ×2 (08:00→20:33)
[2016-03-19] MEDS: PANTOprazole SOD 40 MG TAB PO SCH (09:00)
[2016-03-19] MEDS: ATORVASTATIN 10 MG TAB PO SCH (09:00)
[2016-03-19] MEDS: DOCUSATE SODIUM 100 MG CAP PO SCH ×2 (09:00→21:26)
[2016-03-19] MEDS: TAMSULOSIN HCL 0.4 MG CAP PO SCH (09:00)
[2016-03-19] MEDS: POLYETHYLENE (MIRALAX) 17 GM PACK PO SCH ×2 (09:00→21:26)
[2016-03-19] MEDS: CLOPIDOGREL BISULFATE 75 MG TAB PO SCH (09:00)
[2016-03-19] MEDS: SERTRALINE HCL 50 MG TAB PO SCH (09:00)
[2016-03-19] MEDS: FLUTICASONE PROPIONATE NA SPR 16 GM BTL NAE SCH (09:00)
[2016-03-19] MEDS: DOPamine 400MG / D5W 400 MG IV PRN ×2 (09:38→23:32)
[2016-03-19 09:51] LABS: URINE APPEARANCE TURBID (CLEAR); URINE BILIRUBIN NEG (NEG); URINE COLOR YELLOW; URINE EPITHELIAL CELL AUTO >30 /lpf (0-5); URINE NITRITE NEG (NEG); URINE SPECIFIC GRAVITY 1.016 (1.000-1.030); UROBILINOGEN NEG (NEG)
[2016-03-19 09:53] LABS: MANUAL MICROSCOPIC REQUIRED? NO; REVIEW REQ? YES
[2016-03-19] MEDS ORDERED: SODIUM CHLORIDE 0.9% 500ML 500 ML IV SCH (10:00)
[2016-03-19] MEDS ORDERED: ALBUMIN HUMAN 25% 12.5 GM/50 ML VIAL IV ONE (10:00)
[2016-03-19] MEDS ORDERED: CEFEPIME CONSULT ACTIVE PRN ×2 (10:15)
[2016-03-19] MEDS ORDERED: SODIUM BICARB 8.4% INJ 50 MEQ/50 ML SYR IV STA (10:44)
--- NOTE | 2016-03-19 10:44 | Progress Note ---
Progress Note [employer]: Rigors this morning. Eventually febrile. PICC removed and vanco started at 0751. Will call time 0 for sepsis bundle at 0740 based on my evaluation when I arrived on the unit and after having a chance to evaluate. Blood cultures drawn. Cefepime also ordered. Lactic acid being drawn right now. Recently hypotensive - last hour - getting NS 250ml and albumin 25grams. Will not give 30ml/kg bolus due to CMP and renal failure. Placed on dopa at 2mcg/kg/min. Will reevaluate regarding HD this afternoon and repeat lactate at 1300.
[2016-03-19 10:54] LABS: ISTAT ALLEN TEST Pass; ISTAT ARTERIAL BLOOD GAS HCO3 16 meq/L (19-24); ISTAT ARTERIAL BLOOD GAS PCO2 38 mmHg (35-46); ISTAT ARTERIAL BLOOD GAS PO2 81 mmHg (80-95); ISTAT ARTERIAL BLOOD GAS pH 7.23 (7.35-7.45); ISTAT CARBON DIOXIDE 17 mEq/l (24-31); ISTAT DELIVERY SYSTEM Cannula; ISTAT SITE R Radial
[2016-03-19] MEDS ORDERED: SODIUM BICARB 8.4% INJ 50 MEQ/50 ML SYR - CCU EMERGENCY DRUG IV ONE (11:19)
--- NOTE | 2016-03-19 12:23 | Pharmacy Progress Note ---
Pharmacy Antibiotic Consult Date of Service: Mar 19, 2016. Pharmacy Dosing Scope Pharmacy is consulted to initiate Vancomycin/Cefepime IV dosing therapy, order appropriate labs and adjust drug dose/frequency. Subjective The patient is a 80 year old male admitted on Mar 08, 2016 at 16:59 after falling at home. Objective Height (Feet): 5 Height (Inches): 10.00 Weight (Kilograms): 89.000 Lab Results (24hrs): Laboratory Tests Test 03/19/16 05:00 BUN/Creatinine Ratio 12.1 Blood Urea Nitrogen 80 mg/dl Creatinine 6.60 mg/dl White Blood Count 9.33 K/uL Micro Results: Item Value Date Time Blood Culture Received 03/19/16 0720 Blood Pending Blood Culture Received 03/19/16 0712 Blood Pending Catheter Tip Culture Received 03/19/16 0000 Catheter Tip Picc Line Pending Urine Culture Received 03/19/16 0000 Urine,Catheterized Pending Urine Culture - Final Complete 03/14/16 1100 Urine , Clean Catch NO GROWTH - LESS THAN 1,000 COLONIES/ML MRSA DNA Surveillance Screen - Final Complete 03/12/16 1515 Nasal Specimen Negative for MRSA by DNA Probe Blood Culture - Final Complete 03/08/16 1922 Blood NO GROWTH Blood Culture - Final Complete 03/08/16 1915 Blood NO GROWTH Assessment & Plan Patient's SCr has increased dramatically during admission (2.6 --> 3.5 --> 6.6) . Urine output has started to increase, however, SCr continues to rise. Pt is being evaluated for possible dialysis initiation this afternoon. VANCOMYCIN * Loading dose: Vancomycin 1800 mg (~20mg/kg) IV x1 dose, then dosing based on random vanc levels * Goal trough level estimate: between 15 - 20 mcg/mL for possible sepsis. * Random level has been ordered for: 03/20/16 with AM labs * Vanc will be re-dosed when level falls within goal range and monitored carefully in the setting of unstable renal function CEFEPIME * Cefepime 500mg IV q12h on Day 1, for total of 1gm, then Cefepime 500mg IV daily * as recommended for patients with CrCl < 11mL/min or patients receiving intermittent HD Pharmacy will continue to follow and will adjust dose/frequency as necessary. Thank you
--- NOTE | 2016-03-19 12:48 | CARDIOLOGY PROGRESS NOTE ---
DATE: 03/19/2016 HISTORY OF PRESENT ILLNESS: The patient is an 80-year-old male seen in followup. This morning the patient developed rigors. He was treated empirically with antibiotics and received Demerol. Mental status somewhat confused currently. Denies chest discomfort or shortness of breath. Blood cultures sent to the lab. The patient's creatinine continues to trend upward. Dopamine discontinued yesterday in the afternoon; however, restart his a.m. in the setting of rigors and hypotension. is present at bedside. Case discussed with the critical care team as well. REVIEW OF SYSTEMS: The pertinent positive noted above. A 4-system review including cardiovascular, pulmonary, gastroenterologic, and musculoskeletal systems otherwise negative. MEDICATIONS: Reviewed via EMR. Please see list for details. Telemetry demonstrates intermittent ventricular pacing. LABORATORY DATA: White blood cell count 9.33, hemoglobin 8.9, platelet count is 127. Sodium 133, potassium 4.0, chloride 101, CO2 is 18, BUN is 80, creatinine is 6.60. ABG 7.23/38/81/16/93%. INR is 1.6. PHYSICAL EXAMINATION: VITAL SIGNS: Temperature is 37.1 degrees centigrade, pulse 109 beats per minute and irregular, respiratory rate is 18 breaths per minute, blood pressure 198/59, SaO2 of 96% on 2 liters. GENERAL: Confused, NAD, chronically ill. HEENT: Mucous membranes moist. NECK: Supple with no mass. RESPIRATORY: Clear bilateral, no rales, rhonchi or wheeze. HEART: Irregular, tachycardia, no murmur or rub appreciated. ABDOMEN: Soft, nontender. No rebound or guarding. EXTREMITIES: Warm and dry with +2 upper and lower extremity edema. FINAL IMPRESSION: 1. 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 2. Chronic atrial fibrillation with frequent premature ventricular contractions -- borderline rate control. 3. Chronic systolic heart failure with ejection fraction of 30-35% -- patient currently volume overloaded secondary to acute renal dysfunction, poor urine output. 4. Acute rigors -- suspect early sepsis, treatment as per critical care team. 5. 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 6. Acute kidney injury on chronic kidney disease. 7. Underlying chronic obstructive pulmonary disease. PLAN AND RECOMMENDATIONS: Agree with restarting dopamine in the setting of early sepsis, acute rigors. Continue amiodarone for rhythm control, avoid afterload reducing agents currently due to hypotension. Await nephrology input regarding possible dialysis with further decline in renal function and poor urine output and volume overload. Recommend limiting time off anticoagulation due to history of cardioembolic stroke. Continue Plavix due to history of left main stenting. Continue to follow during hospitalization.
[2016-03-19 13:37] LABS: BUN/CREATININE RATIO 12.9 (10-20); CREATININE 6.6 mg/dl (0.60-1.40); POTASSIUM 3.5 mmol/L (3.5-5.1)
[2016-03-19 13:46] LABS: CALCIUM 7.5 mg/dl (8.5-10.1)
--- NOTE | 2016-03-19 14:10 | CRITICAL CARE PROGRESS NOTE ---
DATE: 03/19/2016 GENERAL INFORMATION: There were no acute events overnight until he complained of back pain just before 0700. He then had rigors and eventually had a fever of 38.6. Blood cultures were drawn and he was given vancomycin IV stat and then cefepime. His initial lactate was 1.6 according to his nurse; however, I do not see it documented in the computer. His PICC line was removed and he now has peripheral access. He is drowsy secondary to receiving some Demerol for his rigors. He denies pain and will awaken to converse with me, but he wants to stay awake for very long. He had a bowel movement yesterday. He was placed on oxygen when he was having rigors. He was never hypoxemic. PHYSICAL EXAMINATION: VITAL SIGNS: Maximum temperature 38.6, heart rate 70-111, respiratory rate 18-27, blood pressure 98-151/50, and oxygen saturation 95% on 2 liters nasal cannula. 24-hour fluid balance is 431 mL. Urine output over 24 hours is 850 mL. GENERAL: He will awaken to sternal rub and noxious stimuli such as putting Yankaur catheter in his posterior pharynx. LUNGS: Have decreased breath sounds throughout. No rales, rhonchi or wheezes. HEART: Tachycardic, irregular. No murmurs. ABDOMEN: Mildly distended. Soft and nontender. Hypoactive bowel sounds. EXTREMITIES: With 2-3+ edema. NEUROLOGIC: He follows commands and moves all 4 extremities, but is very drowsy to lethargic when not stimulated. LABORATORY DATA: White blood cell count 9.33, hemoglobin 8.9, hematocrit 26, and platelets 127. ABG, pH 7.23, pCO2 of 38, pO2 of 81, and HCO3 of 16. Sodium 133, potassium 4, chloride 101, CO2 of 18, BUN 80, creatinine 6.6, blood sugar 117, phosphorus 6.2, and magnesium 2.3. Urinalysis significant for moderate leukocyte esterase, 3+ blood, and 10-30 white blood cells. INR 1.6. MEDICATIONS AND INFUSIONS: Acetaminophen, Tylenol #3, amiodarone, pancrease, Lipitor, Dulcolax, Rocaltrol, cefepime day zero, Plavix, Colace, dopamine, Flonase, insulin sliding scale, Xopenex, nitroglycerin, Zofran, Protonix, MiraLax, Zoloft, tamsulosin, and vancomycin day zero. IMPRESSION: 1. Fever and probably sepsis. He was placed back on some dopamine and I am giving him judicious volume with 25 grams of albumin and 250 mL of saline. The most likely source at this point is his PICC line. Urine culture has been collected. I am waiting to see if he needs a dialysis catheter today before checking a chest x-ray. He is on Cefepime and Vancomycin. 2. Acute on chronic kidney failure with creatinine worse than yesterday. This may be related to his sepsis and I thought perhaps he was turning the corner on his renal failure yesterday. Labs are being drawn at 1:00 p.m. and we will reevaluate possible dialysis today. 3. Metabolic encephalopathy, which is multifactorial. 4. Cardiomyopathy, ejection fraction 30%-35%. 5. Chronic atrial fibrillation with INR now 1.6. Coumadin on hold for temporary dialysis catheter. 6. History of coronary artery disease, status post stenting. He remains on Plavix. 7. Constipation, resolved. 8. Diabetes mellitus with controlled blood sugars. 9. Decreased platelets, stable. 10. History of cerebrovascular accident. 11. Status post biventricular pacemaker placement on 03/12/2016. 12. History of pancreatic cancer, status post Whipple in 2005. PLAN: NEUROLOGIC: Avoid sedatives and treat pain with Tylenol. PULMONARY: No active issues other than he is at risk for aspiration due to his altered mental status. Eventually, he will need to be using his incentive spirometer when he is able. CARDIOVASCULAR: Continue dopamine and judicious fluid management. He is on p.o. amiodarone as well as his Plavix. RENAL: Consideration for dialysis this afternoon after labs are back. GASTROINTESTINAL: N.p.o. for now. Continue GI prophylaxis. His bowel regimen seems to be working for him. ID: Vanco and Cefepime Follow cultures. His was updated at the bedside. Please call me with any questions or concerns. Critical care time 40 minutes. CM
--- NOTE | 2016-03-19 18:46 | Progress Note ---
Medicine Progress Note Date & Time of Visit: Mar 19, 2016 at 18:39. Subjective Patient seen and examined. Had rigors this morning. Objective Last 8 Hrs Date Time Temp Pulse Resp B/P Pulse Ox O2 Delivery O2 Flow Rate FiO2 03/19/16 18:00 92 15 103/46 96 03/19/16 17:29 95 10 89/45 96 03/19/16 16:59 99 12 87/48 96 03/19/16 16:00 Nasal Cannula 2.0 03/19/16 15:59 37.1 91 21 99/46 97 03/19/16 15:29 116 13 99/48 94 03/19/16 14:29 100 10 72/48 96 Nasal Cannula 2.0 03/19/16 13:58 109 9 82/55 96 Nasal Cannula 2.0 03/19/16 13:29 106 12 82/55 94 Nasal Cannula 2.0 03/19/16 13:27 108 20 80/44 95 Nasal Cannula 2.0 03/19/16 12:59 89 34 87/37 95 Nasal Cannula 2.0 03/19/16 12:44 87 11 90/43 95 Nasal Cannula 2.0 03/19/16 12:00 37.1 109 18 98/59 96 Nasal Cannula 2.0 03/19/16 12:00 Nasal Cannula 2.0 Physical Exam: General-awake; alert; NAD Eyes-EOMI; no scleral icterus Neck-no stridor; trachea midline Lungs-coarse breath sounds anteriorly Heart-irregularly irregular Abdomen-soft; NTND; nBS Extremities-2+ peripheral pulses; 1+ le edema; edema of ue, r>l Neuro-no gross focal deficits Laboratory Results: Last 24 Hours Test 03/18/16 20:14 03/19/16 00:00 03/19/16 05:00 03/19/16 05:30 Bedside Glucose 139 mg/dl 116 mg/dl Urine Color YELLOW Urine Appearance TURBID Urine pH 5.0 Urine Specific [place] 1.016 Urine Protein 2+ Urine Glucose (UA) NEG Urine Ketones NEG Urine Occult Blood 3+ Urine Nitrite NEG Urine Bilirubin NEG Urine Urobilinogen NEG Urine Leukocyte Esterase MODERATE Urine WBC (Auto) 10-30 /hpf Urine RBC (Auto) >30 /hpf Urine Hyaline Casts (Auto) 1-5 /lpf Urine Epithelial Cells (Auto) >30 /lpf Urine Bacteria (Auto) NEG Urine Pathogenic Casts /lpf Urine Yeast (Auto) White Blood Count 9.33 K/uL Red Blood Count 3.04 M/uL Hemoglobin 8.9 g/dL Hematocrit 26.0 % Mean Corpuscular Volume 85.5 fL Mean Corpuscular Hemoglobin 29.3 pg Mean Corpuscular Hemoglobin Concent 34.2 g/dl RDW Standard Deviation 53.6 fL RDW Coefficient of Variation 17.2 % Platelet Count 127 K/uL Mean Platelet Volume 10.3 fL Prothrombin Time 17.1 SECONDS Prothromb Time International Ratio 1.6 Sodium Level 133 mmol/L Potassium Level 4.0 mmol/L Chloride Level 101 mmol/L Carbon Dioxide Level 18 mmol/L Anion Gap 14.0 mmol/L Blood Urea Nitrogen 80 mg/dl Creatinine 6.60 mg/dl Est Creatinine Clear Calc Drug Dose 9.9 ml/min Estimated GFR () 8.3 Estimated GFR (Non- 7.2 BUN/Creatinine Ratio 12.1 Random Glucose 117 mg/dl Calcium Level 7.6 mg/dl Phosphorus Level 6.2 mg/dl Magnesium Level 2.3 mg/dl Test 03/19/16 10:37 03/19/16 10:41 03/19/16 13:02 03/19/16 17:33 Bedside Lactic Acid Arterial 1.01 mmol/L Blood Gas Sample Site R Radial Bedside Blood Gas pH (LAB) 7.23 Bedside Blood Gas pCO2 (LAB) 38 mmHg Bedside Blood Gas pO2 (LAB) 81 mmHg Bedside Blood Gas HCO3 (LAB) 16 meq/L Bedside Blood Gas Total CO2 17 mEq/l Bedside Blood Gas Base Excess (LAB) -12.0 meq/L Bedside Blood Gas O2 Saturation 93.0 % Louie Test Pass Oxygen Delivery Device Cannula Sodium Level 135 mmol/L Potassium Level 3.5 mmol/L Chloride Level 102 mmol/L Carbon Dioxide Level 17 mmol/L Anion Gap 16.0 mmol/L Blood Urea Nitrogen 85 mg/dl Creatinine 6.60 mg/dl Est Creatinine Clear Calc Drug Dose 9.9 ml/min Estimated GFR () 8.3 Estimated GFR (Non- 7.2 BUN/Creatinine Ratio 12.9 Random Glucose 121 mg/dl Lactic Acid Level 1.5 mmol/L Calcium Level 7.5 mg/dl Bedside Glucose 148 mg/dl Date/Time Source Procedure Growth Status 03/19/16 07:20 Blood Blood Culture Pending Received 03/19/16 07:12 Blood Blood Culture - Preliminary Gram Negative Bacilli Resulted 03/19/16 00:00 Urine,Catheterized Urine Culture Pending Received 03/19/16 00:00 Catheter Tip Picc Line Catheter Tip Culture Pending Received Assessment & Plan 80 year old male with history of CAD, A fib on Coumadin, 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 Found to have symptomatic bradycardia, sick sinus syndrome, s/p biventricular pacemaker 03/12/16. Now with sepsis (febrile, rigors, hypotensive), likely PICC line related. Sepsis - likely line related as source - cautious fluid resuscitation as per ICU given worsening kidney function and concern for volume overload - continue dopamine drip - blood cultures 1 of 2 with gram negative bacilli - PICC line removed and tip sent for culture - urine culture pending - continue vancomycin and cefepime - lactic acid normal FALL, PRESYNCOPE - likely 2/2 symptomatic bradycardia - Cardiology consulted - initially required pressure support with dopamine drip, then weaned off - now back on dopamine drip - also initially had temporary pacemaker - s/p biventricular pacemaker 03/12/16 - continued on amiodarone for ectopy HISTORY OF NON ISCHEMIC CARDIOMYOPATHY - continue atorvastatin, clopidogrel - holding carvedilol, torsemide and Entresto given pressor requirement and JOSUÉ A FIB - Coumadin initially held for supratherapeutic INR - Coumadin then restarted post-procedure (pacemaker placement) - Coumadin back on hold in case of need for line placement for HD - continued on Amiodarone DM 2 - glycemic pharmacy consulted - continue insulin therapy Acute renal insufficiency (baseline CKD stage 3) - nephrology consulted - creatinine up-trending - received albumin and IVF's with sodium bicarbonate - then intermittently diuresed with furosemide vs bumetanide given volume status - holding torsemide and Entresto (home medications) - renal ultrasound with mild hydronephrosis, not thought to be contributory - urine output was improving but now on decline, likely 2/2 sepsis Urinary retention - Urology consulted - barlow placed - continue tamsulosin HISTORY OF CVA - continue Plavix, Atorvastatin - Coumadin on hold in case of need for line placement HISTORY OF PANCREATIC CANCER - s/p Whipple procedure - continue Pancreaze DVT prophylaxis - Coumadin on hold - SCD's DISPO PT recommending acute rehab when medically stable Code status Full code as per patient Discharge planning: rehab hospital Consultants: Critical care Nephrology Cardiology Urology Procedures: CT head Interval right parietal infarct. No acute intracranial findings. CT c-spine Findings of severe degenerative change combined with extensive posterior laminectomy defects. No acute process is appreciated. TTE * The study was technically limited. * The left ventricle is moderately dilated. * Left ventricular systolic function is moderate to severely reduced. * Ejection Fraction = 30-35%. * The right ventricular systolic function is normal. * There is mild mitral regurgitation. Renal ultrasound 1. there is mild hydronephrosis right kidney. 2. Several left renal cyst. 3. Complex cyst mid to lower aspect right kidney. Current Inpatient Medications: Current Inpatient Medications Medications (Trade) Dose Ordered Sig/Quoc Route Start Time Stop Time Status Last Admin Dose Admin Nitroglycerin (Nitrostat Tab) 0.4 mg UD PRN SL 03/08/16 17:00 04/07/16 16:59 03/14/16 08:34 0.4 MG Glucose (Glucose 40% Gel) 15-30 GRAMS 15 GRAMS... UD PRN PO 03/08/16 17:15 04/07/16 17:14 Glucose (Glucose Chew Tab) 4-8 Tablets 4 Tabl... UD PRN PO 03/08/16 17:15 04/07/16 17:14 Dextrose (Dextrose 50% 50ML Syringe) 25-50ML OF 50% DW IV FOR... UD PRN IV 03/08/16 17:15 04/07/16 17:14 Glucagon (Glucagon Inj) 1 mg UD PRN SQ 03/08/16 17:15 04/07/16 17:14 Miscellaneous Information (Consult Glycemic Management Pharmacy) 1 ea UD PRN N/A 03/08/16 19:45 04/07/16 19:44 Atorvastatin Calcium (Lipitor Tab) 10 mg DAILY PO 03/09/16 09:00 04/08/16 08:59 03/18/16 07:33 10 MG Clopidogrel Bisulfate (plAVix TAB) 75 mg DAILY PO 03/09/16 09:00 04/08/16 08:59 Future hold 03/18/16 07:33 75 MG Fluticasone Propionate (Flonase Nasal [place]) 2 sprays DAILY RICHA 03/09/16 09:00 04/08/16 08:59 03/18/16 07:34 2 SPRAYS Levalbuterol (Xopenex Hfa Inhaler) 2 puffs Q4H PRN INH 03/08/16 17:30 04/07/16 17:29 Sertraline HCl (Zoloft Tab) 25 mg DAILY PO 03/09/16 09:00 04/08/16 08:59 03/18/16 07:34 25 MG Tamsulosin HCl (Flomax Cap) 0.4 mg DAILY PO 03/09/16 09:00 04/08/16 08:59 03/18/16 07:34 0.4 MG Miscellaneous Information (Order Awaiting Action) 1 ea QS N/A 03/08/16 19:45 04/07/16 19:44 Amylase/Lipase/ Protease (Pancreaze (Lipase 10,500U) Cap) 2 cap TIDM PO 03/09/16 07:15 04/08/16 07:29 03/18/16 16:14 2 CAP Amylase/Lipase/ Protease (Pancreaze (Lipase 10,500U) Cap) 1-2 CAPS WITH SNACKS UD PRN PO 03/08/16 19:45 04/07/16 19:44 Docusate Sodium (coLACE CAP) 100 mg BID PO 03/10/16 18:00 04/09/16 17:59 03/18/16 20:10 100 MG Polyethylene (Miralax Powder Packet) 17 gm Q6H PRN PO 03/10/16 21:15 04/09/16 21:14 03/13/16 10:48 17 GM Pantoprazole Sodium (Protonix Tab) 40 mg QAM PO 03/12/16 09:00 04/11/16 08:59 03/18/16 07:34 40 MG Acetaminophen/ Codeine Phosphate (Tylenol w/ Codeine #3 Tab) 1 tab for pain scale 4-6 2 t... Q4H PRN PO 03/12/16 09:30 04/11/16 09:29 03/19/16 06:03 2 TAB Acetaminophen (Tylenol Tab) 650 mg Q4H PRN PO 03/12/16 09:30 04/11/16 09:29 03/17/16 12:53 650 MG Insulin Aspart (novoLOG ASPART) SLIDING SCALE G... ACHS SC 03/12/16 16:00 04/11/16 15:59 03/18/16 16:39 4 UNITS Warfarin Sodium (Coumadin Tab) 2.5 mg DAILY@16 PO 03/13/16 16:00 04/12/16 15:59 Future Hold 03/15/16 16:39 2.5 MG Ondansetron HCl (Zofran Inj) 4 mg Q4H PRN IV 03/14/16 08:45 04/13/16 08:44 03/16/16 16:05 4 MG Amiodarone HCl 200 mg 200 mg BIDM PO 03/14/16 16:30 04/13/16 16:29 03/18/16 16:14 200 MG Dopamine HCl/ Dextrose (DOPamine 400MG / D5W) 250 ml @ 0 mls/hr Q0M PRN IV 03/15/16 09:45 04/14/16 09:44 03/19/16 09:38 6.7 MLS/HR Bisacodyl (Dulcolax Supp) 10 mg DAILY PRN MS 03/16/16 09:45 04/15/16 09:44 03/17/16 10:10 10 MG Insulin Glargine (Lantus Solostar Pen) 4 unit PM SC 03/16/16 21:00 04/15/16 20:59 Future Hold 03/16/16 21:18 4 UNIT Polyethylene 17 gm 17 gm BID PO 03/17/16 09:00 04/16/16 08:59 03/18/16 20:10 17 GM Cefepime HCl/ Dextrose (Maxipime IV/D5 100ml) 105.65 ml @ 200 mls/ hr Q12H IV 03/19/16 08:00 03/19/16 21:00 03/19/16 08:00 200 MLS/HR Vancomycin HCl 1 ea 1 ea UD PRN N/A 03/19/16 07:30 04/18/16 07:29 Sodium Chloride (Nss 500ml) 500 ml @ 250 mls/hr Q2H IV 03/19/16 10:00 04/18/16 09:59 03/19/16 10:14 250 MLS/HR Cefepime HCl 1 ea 1 ea UD PRN N/A 03/19/16 10:15 04/18/16 10:14 Cefepime HCl/ Dextrose (Maxipime IV/D5 100ml) 105.65 ml @ 200 mls/ hr Q24H IV 03/20/16 20:00 03/29/16 19:59 Calcitriol (Rocaltrol Cap) 0.25 mcg MoWeFr@0900 PO 03/21/16 09:00 04/20/16 08:59
[2016-03-19] MEDS ORDERED: [UNRECOGNIZED DRUG - OTHER] IV STA (18:56)
[2016-03-19] MEDS ORDERED: LEVOFLOXACIN IV STA (18:56)
[2016-03-19] MEDS ORDERED: D5W IV STA (18:56)
[2016-03-19] MEDS ORDERED: PREMIXED IV STA (18:56)
[2016-03-19] MEDS ORDERED: NURSING VERBAL MED ORDER ONE ×2 (19:00→22:15)
--- NOTE | 2016-03-19 19:10 | DIAGNOSTIC IMAGING REPORT ---
CHEST ONE VIEW PORTABLE CLINICAL HISTORY: Chest x-ray for central line placement COMPARISON STUDY: 03/16/2016 FINDINGS: The heart is enlarged. There is no focal pulmonary consolidation. There is a double-lumen left subclavian implantable defibrillator. The right-sided PICC catheter has been removed. There is been interval insertion of left internal jugular central venous catheter. The tip extends to the superior vena cava. There is no pneumothorax.[ IMPRESSION: No pneumothorax status post placement of left internal jugular central venous catheter. Electronically signed by: Mohsen Dobbs M.D. 03/19/2016 7:08 PM
[2016-03-19] MEDS ORDERED: LEVOFLOXACIN CONSULT ACTIVE PRN (20:00)
[2016-03-19] MEDS ORDERED: LEVOFLOXACIN 750MG / D5W IV ONE (20:00)
[2016-03-19] MEDS: ACETAMINOPHEN 325 MG TAB PO PRN (21:41)
[2016-03-19] MEDS: ALBUMIN HUMAN 25% 12.5 GM/50 ML VIAL IV SCH ×2 (22:32→23:12)
--- NOTE | 2016-03-19 23:50 | OPERATIVE REPORT ---
DATE OF OPERATION: 03/19/2016 PROCEDURE: Left internal jugular triple lumen catheter placement. PREPROCEDURE DIAGNOSIS: Sepsis. POSTPROCEDURE DIAGNOSIS: Same. INDICATIONS: Need for vasopressors and multiple lab draws. TIME OF PROCEDURE: 6:15 p.m. DESCRIPTION OF PROCEDURE: Informed consent was obtained from his . The patient was placed supine and a time out was performed. The half mask, sterile gown, and sterile gloves were donned and I prepared the right neck with chlorhexidine. The patient was draped in sterile fashion from head to toe. A 2 mL of lidocaine was used to numb the skin adjacent to the left internal jugular vein. I then used an 18 gauge needle and the ultrasound to cannulate the vein on the first pass. A wire was placed through the needle and the needle was removed. A #11 scalpel blade was used to make a talon in the skin adjacent to the wire. The vein was then dilated using the dilator from the arrow triple lumen kit. The triple lumen catheter was then placed over the wire and the wire was removed. All 3 ports had good blood flow and flushed easily. The line was sutured into place and a dressing was applied. The patient tolerated the procedure well and follow up chest x-ray had no pneumothorax and showed the tip of the line to be in the superior vena cava. Hemostasis was achieved. I attest to the content of the Intraoperative Record and any orders documented therein. Any exceptio ns are noted below.
[2016-03-20] VITALS (37 sets, daily range): BP systolic 87–132; BP diastolic 39–83; PULSE 83–108; TEMP 36.6–36.9; O2SAT 86–97
[2016-03-20] MEDS: ACETAMINOPHEN/CODEINE 300/30MG TAB PO PRN ×2 (02:17→21:03)
[2016-03-20 04:55] LABS: HEMATOCRIT 25.6 % (42-52); MEAN CELL VOLUME 85.3 fL (80-100); MEAN CORPUSCULAR HEMOGLOBIN 30.3 pg (25-34); MEAN CORPUSCULAR HGB CONC 35.5 g/dl (32-36); PLATELET COUNT 133 K/uL (130-400)
[2016-03-20 04:56] LABS: INR 1.9 (0.9-1.1); PROTHROMBIN TIME (PATIENT) 20.5 SECONDS (9.0-12.0)
[2016-03-20 05:29] LABS: BUN/CREATININE RATIO 12.2 (10-20); CALCIUM 7.2 mg/dl (8.5-10.1); CREATININE 6.6 mg/dl (0.60-1.40); MAGNESIUM 2.2 mg/dl (1.8-2.4); PHOSPHORUS 6.4 mg/dl (2.5-4.9); POTASSIUM 4.2 mmol/L (3.5-5.1)
--- NOTE | 2016-03-20 07:02 | Nephrology Progress Note ---
Nephrology Progress Note Date of Service: Mar 20, 2016. Subjective 80 yo male with regis/atn with creatinine of 6.6. yesterday, pt became septic. blood cultures were positive for gram negative bacilli. he was having rigors. this morning, pt more comfortable. no longer with rigors. more alert. still urinating. knows where he is and the year. complaining of pain in the left shoulder. no n/v. no sob. Objective Date Time Temp Pulse Resp B/P Pulse Ox O2 Delivery O2 Flow Rate FiO2 03/20/16 06:00 91 13 114/69 96 Room Air 03/20/16 05:59 97 17 114/69 96 03/20/16 04:00 95 Room Air 03/20/16 04:00 36.8 98 17 114/42 93 Room Air 03/20/16 03:29 108 26 92/57 86 03/20/16 03:00 99 10 94 03/20/16 02:30 102 8 127/45 94 03/20/16 02:14 98 17 129/83 92 03/20/16 02:00 98 13 132/55 03/20/16 01:00 94 14 94 03/20/16 01:00 94 14 91/51 94 03/20/16 00:29 91 19 106/52 96 03/20/16 00:00 36.8 99 20 114/59 95 Room Air 03/19/16 23:59 95 Room Air 03/19/16 21:30 114 23 95 03/19/16 21:29 106 24 109/57 96 03/19/16 21:24 106 25 105/48 95 03/19/16 21:19 107 18 134/66 96 03/19/16 21:15 100 12 91 03/19/16 21:14 103 16 115/56 96 03/19/16 21:09 100 15 99/58 90 03/19/16 21:04 99 13 111/48 94 03/19/16 21:00 96 16 96 03/19/16 20:59 99 18 101/59 95 03/19/16 20:54 99 12 99/57 94 03/19/16 20:49 99 14 100/44 94 03/19/16 20:45 98 16 95 03/19/16 20:44 97 21 109/49 92 03/19/16 20:37 91 9 90/37 03/19/16 20:36 97 10 76/41 03/19/16 20:30 95 13 92 03/19/16 20:29 99 11 96/42 94 03/19/16 20:15 99 14 92 03/19/16 20:00 94 Room Air 03/19/16 20:00 102 15 93 03/19/16 18:00 92 15 103/46 96 03/19/16 17:29 95 10 89/45 96 03/19/16 16:59 99 12 87/48 96 03/19/16 16:00 Nasal Cannula 2.0 03/19/16 15:59 37.1 91 21 99/46 97 03/19/16 15:29 116 13 99/48 94 03/19/16 14:29 100 10 72/48 96 Nasal Cannula 2.0 03/19/16 13:58 109 9 82/55 96 Nasal Cannula 2.0 03/19/16 13:29 106 12 82/55 94 Nasal Cannula 2.0 03/19/16 13:27 108 20 80/44 95 Nasal Cannula 2.0 03/19/16 12:59 89 34 87/37 95 Nasal Cannula 2.0 03/19/16 12:44 87 11 90/43 95 Nasal Cannula 2.0 03/19/16 12:00 37.1 109 18 98/59 96 Nasal Cannula 2.0 03/19/16 12:00 Nasal Cannula 2.0 03/19/16 10:14 92 9 97/37 96 Nasal Cannula 2.0 03/19/16 09:59 37.1 95 11 80/32 96 Nasal Cannula 2.0 03/19/16 09:52 97 10 80/47 95 Nasal Cannula 2.0 03/19/16 09:29 51 14 61/44 92 Nasal Cannula 2.0 03/19/16 09:16 90 18 80/35 96 Nasal Cannula 2.0 03/19/16 09:14 84 12 62/47 95 Nasal Cannula 2.0 03/19/16 09:12 85 10 80/39 96 Nasal Cannula 2.0 03/19/16 09:05 88 11 76/35 94 Nasal Cannula 2.0 03/19/16 08:00 38.6 87 14 88/46 99 Nasal Cannula 2.0 03/19/16 08:00 Nasal Cannula 03/19/16 08:00 Nasal Cannula 2.0 Physical Exam: General-aaox3 Eyes-no sceral icterus ENT-mmm Neck-supple Lungs-clear Heart-irregular Abdomen-bs+ s/nt/nd Extremities-+2 edema in arms and legs Neuro-nonfocal Current Inpatient Medications Medications (Trade) Dose Ordered Sig/Quoc Route Start Time Stop Time Status Last Admin Dose Admin Nitroglycerin (Nitrostat Tab) 0.4 mg UD PRN SL 03/08/16 17:00 04/07/16 16:59 03/14/16 08:34 0.4 MG Glucose (Glucose 40% Gel) 15-30 GRAMS 15 GRAMS... UD PRN PO 03/08/16 17:15 04/07/16 17:14 Glucose (Glucose Chew Tab) 4-8 Tablets 4 Tabl... UD PRN PO 03/08/16 17:15 04/07/16 17:14 Dextrose (Dextrose 50% 50ML Syringe) 25-50ML OF 50% DW IV FOR... UD PRN IV 03/08/16 17:15 04/07/16 17:14 Glucagon (Glucagon Inj) 1 mg UD PRN SQ 03/08/16 17:15 04/07/16 17:14 Miscellaneous Information (Consult Glycemic Management Pharmacy) 1 ea UD PRN N/A 03/08/16 19:45 04/07/16 19:44 Atorvastatin Calcium (Lipitor Tab) 10 mg DAILY PO 03/09/16 09:00 04/08/16 08:59 03/18/16 07:33 10 MG Clopidogrel Bisulfate (plAVix TAB) 75 mg DAILY PO 03/09/16 09:00 04/08/16 08:59 Future hold 03/18/16 07:33 75 MG Fluticasone Propionate (Flonase Nasal [place]) 2 sprays DAILY RICHA 03/09/16 09:00 04/08/16 08:59 03/18/16 07:34 2 SPRAYS Levalbuterol (Xopenex Hfa Inhaler) 2 puffs Q4H PRN INH 03/08/16 17:30 04/07/16 17:29 Sertraline HCl (Zoloft Tab) 25 mg DAILY PO 03/09/16 09:00 04/08/16 08:59 03/18/16 07:34 25 MG Tamsulosin HCl (Flomax Cap) 0.4 mg DAILY PO 03/09/16 09:00 04/08/16 08:59 03/18/16 07:34 0.4 MG Miscellaneous Information (Order Awaiting Action) 1 ea QS N/A 03/08/16 19:45 04/07/16 19:44 Amylase/Lipase/ Protease (Pancreaze (Lipase 10,500U) Cap) 2 cap TIDM PO 03/09/16 07:15 04/08/16 07:29 03/18/16 16:14 2 CAP Amylase/Lipase/ Protease (Pancreaze (Lipase 10,500U) Cap) 1-2 CAPS WITH SNACKS UD PRN PO 03/08/16 19:45 04/07/16 19:44 Docusate Sodium (coLACE CAP) 100 mg BID PO 03/10/16 18:00 04/09/16 17:59 03/19/16 21:26 100 MG Polyethylene (Miralax Powder Packet) 17 gm Q6H PRN PO 03/10/16 21:15 04/09/16 21:14 03/13/16 10:48 17 GM Pantoprazole Sodium (Protonix Tab) 40 mg QAM PO 03/12/16 09:00 04/11/16 08:59 03/18/16 07:34 40 MG Acetaminophen/ Codeine Phosphate (Tylenol w/ Codeine #3 Tab) 1 tab for pain scale 4-6 2 t... Q4H PRN PO 03/12/16 09:30 04/11/16 09:29 03/20/16 02:17 2 TAB Acetaminophen (Tylenol Tab) 650 mg Q4H PRN PO 03/12/16 09:30 04/11/16 09:29 03/19/16 21:41 650 MG Insulin Aspart (novoLOG ASPART) SLIDING SCALE G... ACHS SC 03/12/16 16:00 04/11/16 15:59 03/18/16 16:39 4 UNITS Warfarin Sodium (Coumadin Tab) 2.5 mg DAILY@16 PO 03/13/16 16:00 04/12/16 15:59 Future Hold 03/15/16 16:39 2.5 MG Ondansetron HCl (Zofran Inj) 4 mg Q4H PRN IV 03/14/16 08:45 04/13/16 08:44 03/16/16 16:05 4 MG Amiodarone HCl 200 mg 200 mg BIDM PO 03/14/16 16:30 04/13/16 16:29 03/18/16 16:14 200 MG Dopamine HCl/ Dextrose (DOPamine 400MG / D5W) 250 ml @ 0 mls/hr Q0M PRN IV 03/15/16 09:45 04/14/16 09:44 03/19/16 23:32 13.4 MLS/HR Bisacodyl (Dulcolax Supp) 10 mg DAILY PRN OK 03/16/16 09:45 04/15/16 09:44 03/17/16 10:10 10 MG Insulin Glargine (Lantus Solostar Pen) 4 unit PM SC 03/16/16 21:00 04/15/16 20:59 Future Hold 03/16/16 21:18 4 UNIT Polyethylene (Miralax Powder Packet) 17 gm BID PO 03/17/16 09:00 04/16/16 08:59 03/19/16 21:26 17 GM Vancomycin HCl (Consult) 1 ea UD PRN N/A 03/19/16 07:30 04/18/16 07:29 Cefepime HCl 1 ea 1 ea UD PRN N/A 03/19/16 10:15 04/18/16 10:14 Cefepime HCl/ Dextrose (Maxipime IV/D5 100ml) 105.65 ml @ 200 mls/ hr Q24H IV 03/20/16 20:00 03/29/16 19:59 Calcitriol (Rocaltrol Cap) 0.25 mcg MoWeFr@0900 PO 03/21/16 09:00 04/20/16 08:59 Levofloxacin 1 ea 1 ea UD PRN N/A 03/19/16 20:00 04/18/16 19:59 Levofloxacin/Prmx (Levaquin / D5W/ Premixed D5W) 100 ml @ 100 mls/hr Q48H IV 03/21/16 20:00 03/29/16 19:59 Last 24 Hours Test 03/19/16 10:37 03/19/16 10:41 03/19/16 13:02 03/19/16 17:33 Bedside Lactic Acid Arterial 1.01 mmol/L Blood Gas Sample Site R Radial Bedside Blood Gas pH (LAB) 7.23 Bedside Blood Gas pCO2 (LAB) 38 mmHg Bedside Blood Gas pO2 (LAB) 81 mmHg Bedside Blood Gas HCO3 (LAB) 16 meq/L Bedside Blood Gas Total CO2 17 mEq/l Bedside Blood Gas Base Excess (LAB) -12.0 meq/L Bedside Blood Gas O2 Saturation 93.0 % Louie Test Pass Oxygen Delivery Device Cannula Sodium Level 135 mmol/L Potassium Level 3.5 mmol/L Chloride Level 102 mmol/L Carbon Dioxide Level 17 mmol/L Anion Gap 16.0 mmol/L Blood Urea Nitrogen 85 mg/dl Creatinine 6.60 mg/dl Est Creatinine Clear Calc Drug Dose 9.9 ml/min Estimated GFR () 8.3 Estimated GFR (Non- 7.2 BUN/Creatinine Ratio 12.9 Random Glucose 121 mg/dl Lactic Acid Level 1.5 mmol/L Calcium Level 7.5 mg/dl Bedside Glucose 148 mg/dl Test 03/19/16 21:19 03/19/16 21:21 03/20/16 04:25 03/20/16 06:22 Bedside Glucose 173 mg/dl 179 mg/dl 122 mg/dl White Blood Count 19.70 K/uL Red Blood Count 3.00 M/uL Hemoglobin 9.1 g/dL Hematocrit 25.6 % Mean Corpuscular Volume 85.3 fL Mean Corpuscular Hemoglobin 30.3 pg Mean Corpuscular Hemoglobin Concent 35.5 g/dl RDW Standard Deviation 53.7 fL RDW Coefficient of Variation 17.3 % Platelet Count 133 K/uL Mean Platelet Volume 10.0 fL Prothrombin Time 20.5 SECONDS Prothromb Time International Ratio 1.9 Sodium Level 134 mmol/L Potassium Level 4.2 mmol/L Chloride Level 102 mmol/L Carbon Dioxide Level 19 mmol/L Anion Gap 13.0 mmol/L Blood Urea Nitrogen 81 mg/dl Creatinine 6.60 mg/dl Est Creatinine Clear Calc Drug Dose 9.9 ml/min Estimated GFR () 8.3 Estimated GFR (Non- 7.2 BUN/Creatinine Ratio 12.2 Random Glucose 130 mg/dl Calcium Level 7.2 mg/dl Phosphorus Level 6.4 mg/dl Magnesium Level 2.2 mg/dl Random Vancomycin Level 15.2 mcg/ml Date/Time Source Procedure Growth Status 12/19/16 07:20 Blood Blood Culture - Preliminary Gram Negative Bacilli Resulted 03/19/16 07:12 Blood Blood Culture - Preliminary Gram Negative Bacilli Resulted Assessment & Plan regis/atn who has had a complicated hospital course with bradycardia/hypotension at presentation requiring dopamine drip and transcutaneous pacing. underwent aicd placement and developed second insult and worsening regis. now with third insult to kidneys with gram negative bacilli. creatinine though has been 6.6 for past 36 hours and urinating over 400 cc a day. pt not uremic. not hyperkalemia. not severely acidotic. does have interstitial edema in arms and legs. inr 1.9-coumadin on hold. would like to avoid placement of a temporary dialysis catheter today with the elevated inr and gram negative bacteremia. may be safer for patient to re-evaluate tomorrow as the infection continues to improve with appropriate antibiotics. would only dialyze today on an emergent basis. will discuss further with team. .
[2016-03-20] MEDS: INSULIN ASPART 100 UNITS/ML 3 ML PEN SC SCH ×4 (07:35→21:00)
[2016-03-20] MEDS: SERTRALINE HCL 50 MG TAB PO SCH (07:36)
[2016-03-20] MEDS: CLOPIDOGREL BISULFATE 75 MG TAB PO SCH (07:36)
[2016-03-20] MEDS: POLYETHYLENE (MIRALAX) 17 GM PACK PO SCH ×2 (07:36→21:00)
[2016-03-20] MEDS: AMIODARONE 200 MG TAB PO SCH ×2 (07:36→16:29)
[2016-03-20] MEDS: DOCUSATE SODIUM 100 MG CAP PO SCH ×2 (07:36→21:01)
[2016-03-20] MEDS: PANCREAZE (LIPASE 10,500U) CAP PO SCH ×3 (07:36→16:29)
[2016-03-20] MEDS: ATORVASTATIN 10 MG TAB PO SCH (07:36)
[2016-03-20] MEDS: FLUTICASONE PROPIONATE NA SPR 16 GM BTL NAE SCH (07:37)
[2016-03-20] MEDS: PANTOprazole SOD 40 MG TAB PO SCH (07:37)
[2016-03-20] MEDS: TAMSULOSIN HCL 0.4 MG CAP PO SCH (07:37)
[2016-03-20] MEDS: ALBUMIN HUMAN 25% 12.5 GM/50 ML VIAL IV SCH ×2 (08:29→08:33)
--- NOTE | 2016-03-20 10:54 | Pharmacy Progress Note ---
Pharmacy Antibiotic Prog Note Date of Service: Mar 20, 2016. Subjective: The patient is currently receiving Vancomycin IV, dosing guided by random levels in the setting of severe JOSUÉ. The patient is currently on day # 2 of Vancomycin IV therapy. Objective: Height (Feet): 5 Height (Inches): 10.00 Weight (Kilograms): 91.300 Levels: Item Value Date Time Random Vancomycin Level 15.2 mcg/ml 03/20/16 0425 Lab Results (24hrs): Laboratory Tests Test 03/19/16 13:02 03/20/16 04:25 BUN/Creatinine Ratio 12.9 12.2 Blood Urea Nitrogen 85 mg/dl 81 mg/dl Creatinine 6.60 mg/dl 6.60 mg/dl White Blood Count 19.70 K/uL Micro Results: Item Value Date Time Blood Culture - Preliminary Resulted 03/19/16 0720 Blood Probable Pseudomonas Species Blood Culture - Preliminary Resulted 03/19/16 0712 Blood Probable Pseudomonas Species Catheter Tip Culture Received 03/19/16 0000 Catheter Tip Picc Line Pending Urine Culture Received 03/19/16 0000 Urine,Catheterized Pending MRSA DNA Surveillance Screen - Final Complete 03/19/16 0000 Nasal Specimen Negative for MRSA by DNA Probe Urine Culture - Final Complete 03/14/16 1100 Urine , Clean Catch NO GROWTH - LESS THAN 1,000 COLONIES/ML MRSA DNA Surveillance Screen - Final Complete 03/12/16 1515 Nasal Specimen Negative for MRSA by DNA Probe Blood Culture - Final Complete 03/08/16 1922 Blood NO GROWTH Blood Culture - Final Complete 03/08/16 1915 Blood NO GROWTH Assessment & Plan: Patient's SCr has increased dramatically during admission (2.6 --> 3.5 --> 6.6) . Urine output has started to increase, however, SCr continues to rise. Pt is being evaluated for possible dialysis initiation. Broad-spectrum abx initiated d/t the assumption of early sepsis as pt developed fever/rigors/confusion. Probable pseudomonas species growing in 2/2 blood cultures. VANCOMYCIN * Random vanc level this mornin.2 mcg/mL * Goal trough level estimate: between 15 - 20 mcg/mL for possible sepsis. * Vancomycin 650mg IV x1 dose now * Random level has been ordered for: 03/21/16 with AM labs * Vanc will be re-dosed when level falls within goal range and monitored carefully in the setting of unstable renal function CEFEPIME * Cefepime 500mg IV q12h on Day 1, for total of 1gm, then Cefepime 500mg IV daily * as recommended for patients with CrCl < 11mL/min or patients receiving intermittent HD LEVAQUIN * Levaquin 750mg IV x1 dose, then 500mg IV q48h Pharmacy will continue to follow and will adjust dose/frequency as necessary. Thank you
[2016-03-20] MEDS ORDERED: VANCOMYCIN INJ 650 MG in SODIUM CHLORIDE 0.9% 250ML 250 ML IV ONE (11:00)
--- NOTE | 2016-03-20 11:23 | Progress Note ---
Internal Med Progress Note Date of Service: Mar 20, 2016. Provider Documentation: SUBJECTIVE: Patient denies any new complaints. Had a fever spike 38.1 yesterday, no more chills. No new cough, chest pain, nausea, vomiting, abd pain, urinary symptoms C/o back /left shoulder pain OBJECTIVE: Vital Signs-as noted below Exam: General-awake; alert; NAD Eyes-EOMI; no scleral icterus Neck-no JVD; Left IJ Central line + Lungs-coarse breath sounds anteriorly Heart-irregularly irregular Abdomen-soft; NTND; nBS Extremities-2+ peripheral pulses; 1+ le edema; edema of ue, r>l Neuro-no gross focal deficits Lab data as noted below. Procedures: CT head Interval right parietal infarct. No acute intracranial findings. CT c-spine Findings of severe degenerative change combined with extensive posterior laminectomy defects. No acute process is appreciated. TTE * The study was technically limited. * The left ventricle is moderately dilated. * Left ventricular systolic function is moderate to severely reduced. * Ejection Fraction = 30-35%. * The right ventricular systolic function is normal. * There is mild mitral regurgitation. Renal ultrasound 1. there is mild hydronephrosis right kidney. 2. Several left renal cyst. 3. Complex cyst mid to lower aspect right kidney. 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 Found to have symptomatic bradycardia, sick sinus syndrome, s/p biventricular pacemaker 03/12/16. Now with sepsis (febrile, rigors, hypotensive). SEPSIS/BACTEREMIA (GRAM NEG- PROBABLE PSEUDOMONAS) - Unclear source - D/D considered: Abdominal source, UTI but not positive, no pneumonia, Line in situ- sent for cultures - IV fluid - cautious with worsening kidney function/concern for volume overload - On IV Dopamine drip - Blood cx x 2- probable pseudomonas. Follow up PICC line/tip for culture, Urine culture- pending - Continue with IV Vancomycin, Cefepime, Add levofloxacin for double pseudomonas coverage; Lactic acid- normal FALL, PRESYNCOPE - likely 2/2 symptomatic bradycardia - initially required pressure support with dopamine drip, then weaned off - now back on dopamine drip - also initially had temporary pacemaker - s/p biventricular pacemaker 03/12/16 - continued on amiodarone for ectopy - Cardiology on board HISTORY OF NON ISCHEMIC CARDIOMYOPATHY - continue atorvastatin, clopidogrel - holding carvedilol, torsemide and Entresto given pressor requirement and JOSUÉ A FIB - Coumadin initially held for supratherapeutic INR - Coumadin then restarted post-procedure (pacemaker placement) - Coumadin back on hold in case of need for line placement for HD - Continued on Amiodarone DM 2 - glycemic pharmacy consulted - continue insulin therapy JOSUÉ (baseline CKD stage 3) - nephrology consulted - creatinine up-trending - received albumin and IVF's with sodium bicarbonate - then intermittently diuresed with furosemide vs bumetanide given volume status - holding torsemide and Entresto (home medications) - renal ultrasound with mild hydronephrosis, not thought to be contributory - urine output was improving but now on decline, likely 2/2 sepsis - Nephrology to decide about dialysis URINARY RETENTION - Urology consulted - barlow placed - continue tamsulosin HISTORY OF CVA - continue Plavix, Atorvastatin - Coumadin on hold in case of need for line placement HISTORY OF PANCREATIC CANCER - s/p Whipple procedure - continue Pancreaze DVT prophylaxis - Coumadin on hold - SCD's DISPO PT recommending acute rehab when medically stable Code status Full code as per patient Discharge planning: rehab hospital Discussed with Emergency Services Director/ by bedside,. Vital Signs: Date Time Temp Pulse Resp B/P Pulse Ox O2 Delivery O2 Flow Rate FiO2 03/20/16 08:29 36.9 88 19 103/48 94 Room Air 03/20/16 08:00 Room Air 03/20/16 07:59 93 22 109/66 95 Room Air 03/20/16 07:44 95 18 101/49 97 Room Air 03/20/16 07:30 93 20 100/62 94 Room Air 03/20/16 07:14 93 19 113/65 97 Room Air 03/20/16 06:00 91 13 114/69 96 Room Air 03/20/16 05:59 97 17 114/69 96 03/20/16 04:00 95 Room Air 03/20/16 04:00 36.8 98 17 114/42 93 Room Air 03/20/16 03:29 108 26 92/57 86 03/20/16 03:00 99 10 94 03/20/16 02:30 102 8 127/45 94 03/20/16 02:14 98 17 129/83 92 03/20/16 02:00 98 13 132/55 03/20/16 01:00 94 14 94 03/20/16 01:00 94 14 91/51 94 03/20/16 00:29 91 19 106/52 96 03/20/16 00:00 36.8 99 20 114/59 95 Room Air 03/19/16 23:59 95 Room Air 03/19/16 21:30 114 23 95 03/19/16 21:29 106 24 109/57 96 03/19/16 21:24 106 25 105/48 95 03/19/16 21:19 107 18 134/66 96 03/19/16 21:15 100 12 91 03/19/16 21:14 103 16 115/56 96 03/19/16 21:09 100 15 99/58 90 03/19/16 21:04 99 13 111/48 94 03/19/16 21:00 96 16 96 03/19/16 20:59 99 18 101/59 95 03/19/16 20:54 99 12 99/57 94 03/19/16 20:49 99 14 100/44 94 03/19/16 20:45 98 16 95 03/19/16 20:44 97 21 109/49 92 16 20:37 91 9 90/37 03/19/16 20:36 97 10 76/41 03/19/16 20:30 95 13 92 03/19/16 20:29 99 11 96/42 94 03/19/16 20:15 99 14 92 03/19/16 20:00 94 Room Air 03/19/16 20:00 102 15 93 03/19/16 18:00 92 15 103/46 96 16 17:29 95 10 89/45 96 16 16:59 99 12 87/48 96 03/19/16 16:00 Nasal Cannula 2.0 03/19/16 15:59 37.1 91 21 99/46 97 03/19/16 15:29 116 13 99/48 94 03/19/16 14:29 100 10 72/48 96 Nasal Cannula 2.0 03/19/16 13:58 109 9 82/55 96 Nasal Cannula 2.0 03/19/16 13:29 106 12 82/55 94 Nasal Cannula 2.0 03/19/16 13:27 108 20 80/44 95 Nasal Cannula 2.0 03/19/16 12:59 89 34 87/37 95 Nasal Cannula 2.0 03/19/16 12:44 87 11 90/43 95 Nasal Cannula 2.0 03/19/16 12:00 37.1 109 18 98/59 96 Nasal Cannula 2.0 03/19/16 12:00 Nasal Cannula 2.0 Lab Results: Results Past 24 Hours Test 03/19/16 13:02 03/19/16 17:33 03/19/16 21:19 03/19/16 21:21 Range/Units Sodium Level 135 136-145 mmol/L Potassium Level 3.5 3.5-5.1 mmol/L Chloride Level 102 98-107 mmol/L Carbon Dioxide Level 17 21-32 mmol/L Anion Gap 16.0 3-11 mmol/L Blood Urea Nitrogen 85 7-18 mg/dl Creatinine 6.60 0.60-1.40 mg/dl Est Creatinine Clear Calc Drug Dose 9.9 ml/min Estimated GFR () 8.3 Estimated GFR (Non- 7.2 BUN/Creatinine Ratio 12.9 10-20 Random Glucose 121 70-99 mg/dl Lactic Acid Level 1.5 0.4-2.0 mmol/L Calcium Level 7.5 8.5-10.1 mg/dl Bedside Glucose 148 173 179 70-99 mg/dl Test 03/20/16 04:25 03/20/16 06:22 03/20/16 11:00 Range/Units White Blood Count 19.70 4.8-10.8 K/uL Red Blood Count 3.00 4.7-6.1 M/uL Hemoglobin 9.1 14.0-18.0 g/dL Hematocrit 25.6 42-52 % Mean Corpuscular Volume 85.3 80-100 fL Mean Corpuscular Hemoglobin 30.3 25-34 pg Mean Corpuscular Hemoglobin Concent 35.5 32-36 g/dl RDW Standard Deviation 53.7 36.4-46.3 fL RDW Coefficient of Variation 17.3 11.5-14.5 % Platelet Count 133 130-400 K/uL Mean Platelet Volume 10.0 7.4-10.4 fL Prothrombin Time 20.5 9.0-12.0 SECONDS Prothromb Time International Ratio 1.9 0.9-1.1 Sodium Level 134 136-145 mmol/L Potassium Level 4.2 3.5-5.1 mmol/L Chloride Level 102 98-107 mmol/L Carbon Dioxide Level 19 21-32 mmol/L Anion Gap 13.0 3-11 mmol/L Blood Urea Nitrogen 81 7-18 mg/dl Creatinine 6.60 0.60-1.40 mg/dl Est Creatinine Clear Calc Drug Dose 9.9 ml/min Estimated GFR () 8.3 Estimated GFR (Non- 7.2 BUN/Creatinine Ratio 12.2 10-20 Random Glucose 130 70-99 mg/dl Calcium Level 7.2 8.5-10.1 mg/dl Phosphorus Level 6.4 2.5-4.9 mg/dl Magnesium Level 2.2 1.8-2.4 mg/dl Random Vancomycin Level 15.2 mcg/ml Bedside Glucose 122 70-99 mg/dl Bedside Glucose (other) 86 70-99 mg/dl
[2016-03-20] MEDS ORDERED: OLANZAPINE ZYDIS 5 MG ORALLY DIS. TAB PO ONE (15:00)
[2016-03-20] MEDS: ACETAMINOPHEN 325 MG TAB PO PRN ×2 (15:25→22:59)
--- NOTE | 2016-03-20 15:28 | CRITICAL CARE PROGRESS NOTE ---
DATE: 03/20/2016 SUBJECTIVE: There were no acute events overnight. The patient's care was discussed in detail on multidisciplinary rounds today. He has grown probable Pseudomonas from his blood cultures drawn yesterday. Levaquin was added to his antibiotic regimen last night and I placed a triple lumen catheter yesterday evening. He is more awake today and answering questions. He complains of some difficulty swallowing and feels like his throat is dry. He is not eating very well and feels uncomfortable from all the swelling that he has. His dopamine has been weaned from 3 mcg per kilogram per minute to 1.5 mcg per kilogram per minute since rounds today. His urine output yesterday was 450 mL. For the day today, he has already had 525 mL. PHYSICAL EXAMINATION: VITAL SIGNS: Maximum temperature 38.6 yesterday, heart rate 91-108, respiratory rate -26, blood pressure 92-114/40-60, oxygen saturation 88-96% on room air. 24-hour fluid balance positive 1.3 liters. GENERAL: He is awake but a little bit drowsy. He can carry on a conversation but is slow to respond. NEUROLOGIC: He moves all 4 extremities and is oriented to person and place. LUNGS: Have decreased breath sounds at the bases but no rales, rhonchi or wheezes. HEART: Irregular, no murmurs. ABDOMEN: Distended, firm, diffusely mildly tender. No rebound or guarding. Bowel sounds hypoactive. EXTREMITIES: With 2+ lower extremity edema and 2-3+ upper extremity edema. LABORATORY DATA: White blood cell count 19.7, hemoglobin 9.1, hematocrit 25.6, platelets 133. Sodium 134, potassium 4.2, chloride 102, CO2 of 19, BUN 81, creatinine 6.6. INR 1.9. Blood cultures drawn yesterday, probable Pseudomonas in both sets. Blood cultures from today pending. Catheter tip shows no growth from the PICC line. Urine culture less than 1000 colonies per mL, no growth. MEDICATIONS AND INFUSIONS: Acetaminophen, Tylenol No. 3, amiodarone, pancrease, atorvastatin, Dulcolax, Rocaltrol, cefepime day 2, Plavix, Colace, dopamine, Flonase, insulin sliding scale, Xopenex, Levaquin day 2, nitroglycerin, Zofran, Protonix, MiraLax, Zoloft, Flomax, vancomycin day 2. IMPRESSION: This is an 80-year-old gentleman admitted to the hospital on March 08 secondary to syncope. He also had bradycardia and underwent pacemaker placement after his anticoagulation was held. He has had acute kidney injury post-procedure and now Gram-negative bacteremia. Problems are as follows: 1. Gram-negative bacteremia, of undetermined source. Followup cultures are pending and he is double covered for Pseudomonas. He has no abdominal pain and nothing is growing in the urine at this point. He did have a hematoma and some bleeding after his pacemaker. 2. Acute kidney injury with creatinine that was starting to plateau when he became septic. His urine output is increasing today with ongoing use of dopamine as well. Neurology is following and we have opted not to dialyze him today in order to try to clear his blood before placing another catheter. 3. Metabolic encephalopathy, multifactorial. His BUN has been rising, but he was more somnolent and confused yesterday. Overall, he has improved. 4. Chronic atrial fibrillation on Coumadin as an outpatient. Coumadin is on hold in anticipation of probable dialysis catheter tomorrow. 5. Difficulty swallowing subjectively by the patient. He has not been noted to aspirate. 6. Cardiomyopathy, ejection fraction 30%-35%. 7. History of coronary artery disease, status post stenting for which he continues and has continued on his Plavix. 8. Diabetes mellitus, now off his long-acting insulin, but blood sugars are controlled. 9. Decreased platelets, possibly secondary to bleeding, resolved. 10. History of cerebrovascular accident. 11. Status post biventricular pacemaker on 03/12/2016. 12. History of pancreatic cancer status post Whipple. PLAN: 1. Infectious disease consultation. 2. Speech therapy consult. 3. Probable dialysis tomorrow. 4. Continue broad-spectrum antibiotics and consider discontinuing the vancomycin. Repeat blood cultures. 5. Watch volume status carefully. His last CVP was 4. 6. Continue oral amiodarone which was started this admission along with an amiodarone infusion. 7. Wean dopamine. 8. Provide DVT prophylaxis with SCDs. PPI for GI prophylaxis. He is getting physical therapy as well. Out of bed to chair. I discussed his care with his extensively yesterday and again today. She had an opportunity to ask questions. Critical care time 35 minutes. CM
--- NOTE | 2016-03-20 15:37 | Progress Note ---
Progress Note ID Consult Dictated #[id number] A/P: 1. Pseudomonas septicemia -Continue abx, repeat cultures pending, await final sensitivities -Would repeat echo -Will follow, thank you
--- NOTE | 2016-03-20 16:20 | Cardiology Follow-Up ---
Subjective General Date of Service: Mar 20, 2016. Chief Complaint: follow-up shortness of breath, congestive heart failure Pt evaluation today including: conversation w/ patient, physical exam, chart review, lab review, review of studies, review of inpatient medication list History of Present Illness The patient is a 80 year old male seen in follow up. Feeling better today. No rigors. Blood cultures with pseudomonas. Denies CP or SOB. Dopamine infusing. Hemodynamically stable. Allergies Coded Allergies: Lisinopril (Verified Allergy, Unknown, RASH, 06/24/15) Spironolactone (Verified Allergy, Unknown, unkn, 06/24/15) Zolpidem (Verified Adverse Reaction, Unknown, HALLUCINATIONS, 06/24/15) Social History Smoking Status: Former Smoker Hx Tobacco Use In Past Year?: No Hx Alcohol Use - Type And Amou: No Hx Substance Use - Type And Am: No Problem List Medical Problems: (1) Acute bronchitis Status: Acute (2) Chronic renal disease Status: Acute (3) Elevated troponin Status: Acute (4) Influenza Status: Acute (5) Systolic congestive heart failure Status: Acute Review of Systems Respiratory: No cough, No dyspnea at rest, No hemoptysis, No shortness of breath, No wheezing Cardiac: No PND, No chest pain, No claudication, No edema, No orthopnea, No palpitations Physical Exam Vital Signs Last Vital Signs Documentation Date Time Temp Pulse Resp B/P Pulse Ox O2 Delivery O2 Flow Rate FiO2 03/20/16 14:29 90 18 109/59 94 Room Air 03/20/16 11:59 36.6 03/19/16 16:00 2.0 Physical Exam Constitutional: Level of Distress: NAD, chronically ill Psychiatric: Mental Status: active & alert Head: normocephalic Eyes: EOM: EOMI ENMT: normal ENT inspection, hearing grossly normal Neck: supple, no masses Lungs: Respiratory effort: no dyspnea, good air movement Auscultation: breath sounds normal, no wheezing Cardiovascular: Heart Auscultation: no murmurs, no rubs, no gallops, irregular rate rhythm Peripheral Pulses: Bruits: none appreciated Abdomen: Bowel Sounds: normal Inspection & Palpation: soft, no tenderness, guarding & rebound, no masses Musculoskeletal: normal strength (5/5 throughout) Extremities: edema Neurologic: Gait & Station: pertinent finding (No focal motor deficit) Cranial Nerves: grossly intact Assessment and Plan Assessment and Plan FINAL IMPRESSION: 1. Pseudomonas bacteremia / sepsis 2. 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 3. Chronic atrial fibrillation with frequent premature ventricular contractions -- borderline rate control. 4. Chronic systolic heart failure with ejection fraction of 30-35% -- patient currently volume overloaded secondary to acute renal dysfunction, poor urine output. 5. 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 6. Acute kidney injury on chronic kidney disease. -creatinine plateaued at 6.6 7. Underlying chronic obstructive pulmonary disease. PLAN AND RECOMMENDATIONS: Await ID input. Continue broad spectrum antibiotics. Wean low dose dopamine infusion as tolerated. Coumadin on hold in anticipation of dialysis catheter placement. Probable HD tomorrow. Will Follow. Laboratory Results Last 24 Hours Test 03/19/16 17:33 03/19/16 21:21 03/20/16 04:25 03/20/16 06:22 Bedside Glucose 148 mg/dl 179 mg/dl 122 mg/dl White Blood Count 19.70 K/uL Red Blood Count 3.00 M/uL Hemoglobin 9.1 g/dL Hematocrit 25.6 % Mean Corpuscular Volume 85.3 fL Mean Corpuscular Hemoglobin 30.3 pg Mean Corpuscular Hemoglobin Concent 35.5 g/dl RDW Standard Deviation 53.7 fL RDW Coefficient of Variation 17.3 % Platelet Count 133 K/uL Mean Platelet Volume 10.0 fL Prothrombin Time 20.5 SECONDS Prothromb Time International Ratio 1.9 Sodium Level 134 mmol/L Potassium Level 4.2 mmol/L Chloride Level 102 mmol/L Carbon Dioxide Level 19 mmol/L Anion Gap 13.0 mmol/L Blood Urea Nitrogen 81 mg/dl Creatinine 6.60 mg/dl Est Creatinine Clear Calc Drug Dose 9.9 ml/min Estimated GFR () 8.3 Estimated GFR (Non- 7.2 BUN/Creatinine Ratio 12.2 Random Glucose 130 mg/dl Calcium Level 7.2 mg/dl Phosphorus Level 6.4 mg/dl Magnesium Level 2.2 mg/dl Random Vancomycin Level 15.2 mcg/ml Test 03/20/16 11:00 Bedside Glucose (other) 86 mg/dl
--- NOTE | 2016-03-20 16:25 | INFECT. DISEASE CONSULTATION ---
DATE OF CONSULTATION: 03/20/2016 DATE OF CONSULTATION: 03/20/2016. REQUESTING PHYSICIAN: Dr. Lau. HISTORY OF PRESENT ILLNESS: This is an 80-year-old gentleman who was admitted from home after he had a fall at home. He has a history of nonischemic cardiomyopathy with a known ejection fraction of 33%. He was admitted to the intensive care unit and was followed by critical care as well as cardiology. The decision was made to place a pacemaker and this was done on the . Throughout his hospital stay he also has had poor urine output and incomplete emptying of his bladder. He is also being followed by urology. Catheter has been placed. When he was initially admitted to the hospital, he was afebrile. Over the course of his hospital stay he had a low grade temperature on the of 37.7, on the 19 of March he had a T-max of 38.6. This was an isolated incident. He has subsequently been afebrile; however, as part of his workup for fever blood cultures were obtained on the and are growing a probable pseudomonas species in 2 out of 2 sets. His initial blood cultures on the are no growth and final. He did have a urine culture on the at the time of urology consultation and again this was no growth. A repeat urine culture was done on the and this is showing less than 1000 colonies. A urinalysis on the showed 10-30 WBCs, but no bacteria on urinalysis. He also had a catheter tip removed on the , and the tip is no growth. Repeat blood cultures were ordered today and results of this are pending. He was started on cefepime today and is due to get levofloxacin as well tomorrow. He has been on vancomycin empirically. He has also been placed on amiodarone. He appears to be tolerating antibiotics well. Review of systems is difficult with this patient. He does admit to having diffuse pain. He states this is in the back of the neck and the abdomen. He denies any chest pain. He states he has no difficulty breathing. He states that he is hungry but he is having difficulty swallowing. He denies any fevers or chills; however he did have a documented one time temperature last night of 38.6. He currently has a Ruff catheter in place and a left-sided IJ catheter. Since admission to the hospital, he has had worsening creatinine as well and this has gone up to 6.6 today. He is being followed by nephrology as well. All remaining review of systems are reviewed and are negative except or as noted above. PAST MEDICAL HISTORY: Significant for Afib, BPH, coronary artery disease, CHF, chronic kidney disease, COPD, CVA, depression, type 2 diabetes, GERD, hyperlipidemia, hypertension, pancreatic cancer. PAST SURGICAL HISTORY: Significant for cervical spine surgery, hernia repair, coronary angioplasty, cardiac catheterization, hip replacement, cholecystectomy. FAMILY HISTORY: Noncontributory. SOCIAL HISTORY: Significant for history of tobacco use. He denies any drug or alcohol use. He lives with his family. ALLERGIES: INCLUDE LISINOPRIL, AMBIEN AND SPIRONOLACTONE. CURRENT MEDICATIONS: Include Levaquin, calcitriol, cefepime, vancomycin, MiraLax, Dulcolax, dopamine, amiodarone, Zofran, insulin, Tylenol #3, Protonix, MiraLax, Colace, Lipitor, Plavix, Flonase, Zoloft, Flomax, pancreatic enzyme, Xopenex. PHYSICAL EXAMINATION: VITAL SIGNS: He has been afebrile with a T-max on the of 38.6 at 8 a.m. He has otherwise been afebrile. Pulse 90, respiratory rate 18, blood pressure 109/59, oxygen saturation is 94% on room air. GENERAL: He is awake, alert and oriented. HEAD, EYES, EARS, NOSE, AND THROAT: Mucous membranes are dry. HEART: Without murmur. LUNGS: Clear bilaterally but there is poor inspiratory effort. ABDOMEN: Soft and nondistended, but there is diffuse tenderness to light palpation. Ruff catheter is in place. There is no edema. SKIN: Without rash. Left IJ catheter is in place and is clean, dry and intact. LABORATORY STUDIES: Chemistry panel today reveals a sodium of 134, potassium 4.2, chloride 102, bicarbonate 19, BUN 81, creatinine 6.6, glucose is 122. LFTs were done on the and are within normal limits. CBC today reveals a white blood cell count of 19.7, up from 9.3 yesterday, hemoglobin 9.1, hematocrit 25.6, glucose 133. Again, urinalysis on the shows 10-30 WBCs with no bacteria. Her random vancomycin level today is 15. Hepatitis C antibodies are negative. Again, blood cultures from the are growing probable pseudomonas species in 2 of 2 sets. Repeat blood cultures from today are pending and cath tip from the is no growth to date. A urine culture from the is less than 1000 colonies. Urine culture from the is no growth and final blood cultures from the are no growth and final x2 sets. Most recent chest x-ray was done on the and this showed no pneumothorax after insertion of central catheter no consolidation was noted. An abdominal x-ray was done on the which shows no evidence of free air or obstruction. Her renal ultrasound was performed on the and shows mild hydronephrosis of the right kidney. Head CT was done in the ER and was unremarkable for acute findings. He also had a cervical spine CT done as part of this fall workup which showed degenerative joint disease but no acute process. ASSESSMENT AND PLAN: Pseudomonas septicemia, questionable central line versus urinary source. He will be continued on antibiotics pending the results of his repeat blood cultures and sensitivities. It does appear that his last echocardiogram was performed prior to having positive blood cultures. This may require a repeat echocardiogram to assess for any evidence of infected pacer leads, however this would be less likely with pseudomonas. We will follow along with you. Thank you for this consultation.
[2016-03-20] MEDS: CEFEPIME IV 500 MG in DEXTROSE 5% 100ML 100 ML IV SCH (21:01)
[2016-03-21] VITALS (32 sets, daily range): BP systolic 62–118; BP diastolic 26–69; PULSE 68–111; TEMP 36.6–36.9; O2SAT 86–100
[2016-03-21] MEDS: DOPamine 400MG / D5W 400 MG IV PRN (05:34)
[2016-03-21 05:38] LABS: BASO % 0.2 %; BASO ABS # 0.03 K/uL (0-0.2); COMPLETE YES; EOS % 3.3 %; HEMATOCRIT 26.2 % (42-52); IG% 0.5 %; LYMPH ABS # 1.03 K/uL (1.2-3.4); MEAN CELL VOLUME 85.9 fL (80-100); MEAN CORPUSCULAR HEMOGLOBIN 30.2 pg (25-34); MEAN CORPUSCULAR HGB CONC 35.1 g/dl (32-36); MEAN PLATELET VOLUME 9.4 fL (7.4-10.4); MONO % 4.7 %; NEUT % 84.3 %; PLATELET COUNT 145 K/uL (130-400); RED BLOOD COUNT 3.05 M/uL (4.7-6.1); WHITE BLOOD COUNT 14.69 K/uL (4.8-10.8)
[2016-03-21 05:44] LABS: INR 1.7 (0.9-1.1); PROTHROMBIN TIME (PATIENT) 18.1 SECONDS (9.0-12.0)
[2016-03-21 06:19] LABS: BUN/CREATININE RATIO 12.4 (10-20); CALCIUM 7.7 mg/dl (8.5-10.1); CREATININE 6.6 mg/dl (0.60-1.40); PHOSPHORUS 5.9 mg/dl (2.5-4.9); POTASSIUM 3.9 mmol/L (3.5-5.1)
--- NOTE | 2016-03-21 06:27 | Nephrology Progress Note ---
Nephrology Progress Note Date of Service: Mar 21, 2016. Subjective 80 yo male with regis/atn with creatinine of 6.6 yesterday. today's labs are pending. pt with improved urine output and eating well. nurse from overnight felt he was "a little off". pt has had multiple insults to the kidney. did get 25 grams of albumin yesterday to try to improve intravascular volume. pt with pseudomonas bacteremia. negative urine culture. Objective Date Time Temp Pulse Resp B/P Pulse Ox O2 Delivery O2 Flow Rate FiO2 03/21/16 06:00 93 18 100/68 93 Room Air 03/21/16 04:00 36.8 83 14 97/43 94 Room Air 03/21/16 04:00 94 Room Air 03/21/16 02:00 99 19 117/49 96 Room Air 03/21/16 00:00 99 12 93/53 96 Room Air 03/20/16 23:59 96 Room Air 03/20/16 22:00 96 17 105/52 93 Room Air 03/20/16 20:00 95 Room Air 03/20/16 20:00 36.8 105 15 104/60 93 Room Air 03/20/16 18:00 95 20 90/58 93 Room Air 03/20/16 16:00 Room Air 03/20/16 16:00 36.9 84 17 87/40 97 Room Air 03/20/16 15:29 99 17 98/40 94 Room Air 03/20/16 15:11 89 15 95/41 03/20/16 15:08 94 22 87/53 03/20/16 15:05 89 23 108/51 03/20/16 14:59 103 17 117/65 03/20/16 14:29 90 18 109/59 94 Room Air 03/20/16 13:59 83 16 89/42 92 Room Air 03/20/16 12:59 85 15 93/50 96 Room Air 03/20/16 12:29 89 16 98/61 94 Room Air 03/20/16 12:00 Room Air 03/20/16 11:59 36.6 87 19 94/49 94 Room Air 03/20/16 11:29 89 25 109/56 96 Room Air 03/20/16 11:16 97 22 119/44 94 Room Air 03/20/16 10:59 90 15 119/44 94 Room Air 03/20/16 10:29 88 18 114/41 95 Room Air 03/20/16 09:59 91 23 104/50 95 Room Air 03/20/16 09:29 90 14 110/39 95 Room Air 03/20/16 08:29 36.9 88 19 103/48 94 Room Air 03/20/16 08:00 Room Air 03/20/16 08:00 Nasal Cannula 03/20/16 07:59 93 22 109/66 95 Room Air 03/20/16 07:44 95 18 101/49 97 Room Air 03/20/16 07:30 93 20 100/62 94 Room Air 03/20/16 07:14 93 19 113/65 97 Room Air Physical Exam: General-aaox3 Eyes-no sceral icterus ENT-mmm Neck-supple Lungs-cta Heart-irregular, tachy Abdomen-bs+ s/nt/nd Extremities-+2 edema Neuro-nonfocal Current Inpatient Medications Medications (Trade) Dose Ordered Sig/Quoc Route Start Time Stop Time Status Last Admin Dose Admin Nitroglycerin (Nitrostat Tab) 0.4 mg UD PRN SL 03/08/16 17:00 04/07/16 16:59 03/14/16 08:34 0.4 MG Glucose (Glucose 40% Gel) 15-30 GRAMS 15 GRAMS... UD PRN PO 03/08/16 17:15 04/07/16 17:14 Glucose (Glucose Chew Tab) 4-8 Tablets 4 Tabl... UD PRN PO 03/08/16 17:15 04/07/16 17:14 Dextrose (Dextrose 50% 50ML Syringe) 25-50ML OF 50% DW IV FOR... UD PRN IV 03/08/16 17:15 04/07/16 17:14 Glucagon (Glucagon Inj) 1 mg UD PRN SQ 03/08/16 17:15 04/07/16 17:14 Miscellaneous Information (Consult Glycemic Management Pharmacy) 1 ea UD PRN N/A 03/08/16 19:45 04/07/16 19:44 Atorvastatin Calcium (Lipitor Tab) 10 mg DAILY PO 03/09/16 09:00 04/08/16 08:59 03/20/16 07:36 10 MG Clopidogrel Bisulfate (plAVix TAB) 75 mg DAILY PO 03/09/16 09:00 04/08/16 08:59 Future hold 03/20/16 07:36 75 MG Fluticasone Propionate (Flonase Nasal [place]) 2 sprays DAILY RICHA 03/09/16 09:00 04/08/16 08:59 03/20/16 07:37 2 SPRAYS Levalbuterol (Xopenex Hfa Inhaler) 2 puffs Q4H PRN INH 03/08/16 17:30 04/07/16 17:29 Sertraline HCl (Zoloft Tab) 25 mg DAILY PO 03/09/16 09:00 04/08/16 08:59 03/20/16 07:36 25 MG Tamsulosin HCl (Flomax Cap) 0.4 mg DAILY PO 03/09/16 09:00 04/08/16 08:59 03/20/16 07:37 0.4 MG Miscellaneous Information (Order Awaiting Action) 1 ea QS N/A 03/08/16 19:45 04/07/16 19:44 Amylase/Lipase/ Protease (Pancreaze (Lipase 10,500U) Cap) 2 cap TIDM PO 03/09/16 07:15 04/08/16 07:29 03/20/16 16:29 2 CAP Amylase/Lipase/ Protease (Pancreaze (Lipase 10,500U) Cap) 1-2 CAPS WITH SNACKS UD PRN PO 03/08/16 19:45 04/07/16 19:44 Docusate Sodium (coLACE CAP) 100 mg BID PO 03/10/16 18:00 04/09/16 17:59 03/20/16 21:01 100 MG Polyethylene (Miralax Powder Packet) 17 gm Q6H PRN PO 03/10/16 21:15 04/09/16 21:14 03/13/16 10:48 17 GM Pantoprazole Sodium (Protonix Tab) 40 mg QAM PO 03/12/16 09:00 04/11/16 08:59 03/20/16 07:37 40 MG Acetaminophen/ Codeine Phosphate (Tylenol w/ Codeine #3 Tab) 1 tab for pain scale 4-6 2 t... Q4H PRN PO 03/12/16 09:30 04/11/16 09:29 03/20/16 21:03 2 TAB Acetaminophen (Tylenol Tab) 650 mg Q4H PRN PO 03/12/16 09:30 04/11/16 09:29 03/20/16 22:59 650 MG Insulin Aspart (novoLOG ASPART) SLIDING SCALE G... ACHS SC 03/12/16 16:00 04/11/16 15:59 03/18/16 16:39 4 UNITS Warfarin Sodium (Coumadin Tab) 2.5 mg DAILY@16 PO 03/13/16 16:00 04/12/16 15:59 Future Hold 03/15/16 16:39 2.5 MG Ondansetron HCl (Zofran Inj) 4 mg Q4H PRN IV 03/14/16 08:45 04/13/16 08:44 03/16/16 16:05 4 MG Amiodarone HCl 200 mg 200 mg BIDM PO 03/14/16 16:30 04/13/16 16:29 03/20/16 16:29 200 MG Dopamine HCl/ Dextrose (DOPamine 400MG / D5W) 250 ml @ 0 mls/hr Q0M PRN IV 03/15/16 09:45 04/14/16 09:44 03/21/16 05:34 6.6 MLS/HR Bisacodyl (Dulcolax Supp) 10 mg DAILY PRN OK 03/16/16 09:45 04/15/16 09:44 03/17/16 10:10 10 MG Polyethylene (Miralax Powder Packet) 17 gm BID PO 03/17/16 09:00 04/16/16 08:59 03/20/16 07:36 17 GM Vancomycin HCl (Consult) 1 ea UD PRN N/A 03/19/16 07:30 04/18/16 07:29 Cefepime HCl 1 ea 1 ea UD PRN N/A 03/19/16 10:15 04/18/16 10:14 Cefepime HCl/ Dextrose (Maxipime IV/D5 100ml) 105.65 ml @ 200 mls/ hr Q24H IV 03/20/16 20:00 03/29/16 19:59 03/20/16 21:01 200 MLS/HR Calcitriol (Rocaltrol Cap) 0.25 mcg MoWeFr@0900 PO 03/21/16 09:00 1/20/17 08:59 Levofloxacin 1 ea 1 ea UD PRN N/A 03/19/16 20:00 04/18/16 19:59 Levofloxacin/Prmx (Levaquin / D5W/ Premixed D5W) 100 ml @ 100 mls/hr Q48H IV 03/21/16 20:00 03/29/16 19:59 Last 24 Hours Test 03/20/16 06:22 03/20/16 11:00 03/20/16 16:06 03/21/16 05:25 Bedside Glucose 122 mg/dl Bedside Glucose (other) 86 mg/dl 90 mg/dl White Blood Count 14.69 K/uL Red Blood Count 3.05 M/uL Hemoglobin 9.2 g/dL Hematocrit 26.2 % Mean Corpuscular Volume 85.9 fL Mean Corpuscular Hemoglobin 30.2 pg Mean Corpuscular Hemoglobin Concent 35.1 g/dl Platelet Count 145 K/uL Mean Platelet Volume 9.4 fL Neutrophils (%) (Auto) 84.3 % Lymphocytes (%) (Auto) 7.0 % Monocytes (%) (Auto) 4.7 % Eosinophils (%) (Auto) 3.3 % Basophils (%) (Auto) 0.2 % Neutrophils # (Auto) 12.37 K/uL Lymphocytes # (Auto) 1.03 K/uL Monocytes # (Auto) 0.69 K/uL Eosinophils # (Auto) 0.49 K/uL Basophils # (Auto) 0.03 K/uL RDW Standard Deviation 55.7 fL RDW Coefficient of Variation 17.6 % Immature Granulocyte % (Auto) 0.5 % Immature Granulocyte # (Auto) 0.08 K/uL Prothrombin Time 18.1 SECONDS Prothromb Time International Ratio 1.7 Random Vancomycin Level 17.4 mcg/ml Date/Time Source Procedure Growth Status 03/20/16 13:45 Blood Blood Culture Pending Received 03/20/16 13:36 Blood Blood Culture Pending Received Assessment & Plan regis/atn with multiple insults to the kidney. may need dialysis during this admission. monitoring closely. on appropriate antibiotics and did get 25 grams of albumin to help intravascular volume given low cvps yesterday. urinated 800cc yesterday and has 300cc out already this morning. on low dose dopamine which is helping to aide in renal recovery. holding on dialysis for now and hoping creatinine will peak and start to improve. inr 1.7 today and leukocytosis is improving. creatinine has remained 6.6 for past three days and hoping it will start to trend down in the next 24 hours. will give another dose of albumin 25 grams. electrolytes otherwise stable. .
[2016-03-21] MEDS: INSULIN ASPART 100 UNITS/ML 3 ML PEN SC SCH ×4 (07:54→23:54)
[2016-03-21] MEDS: ALBUMIN HUMAN 25% 12.5 GM/50 ML VIAL IV SCH ×2 (07:55→09:11)
[2016-03-21] MEDS: PANCREAZE (LIPASE 10,500U) CAP PO SCH ×3 (07:56→16:30)
[2016-03-21] MEDS: POLYETHYLENE (MIRALAX) 17 GM PACK PO SCH ×2 (07:56→21:12)
[2016-03-21] MEDS: CLOPIDOGREL BISULFATE 75 MG TAB PO SCH (07:57)
[2016-03-21] MEDS: DOCUSATE SODIUM 100 MG CAP PO SCH ×2 (07:57→19:41)
[2016-03-21] MEDS: ATORVASTATIN 10 MG TAB PO SCH (07:57)
[2016-03-21] MEDS: SERTRALINE HCL 50 MG TAB PO SCH (07:57)
[2016-03-21] MEDS: TAMSULOSIN HCL 0.4 MG CAP PO SCH (07:58)
[2016-03-21] MEDS: PANTOprazole SOD 40 MG TAB PO SCH (07:58)
[2016-03-21] MEDS: CALCITRIOL 0.25 MCG CAP PO SCH (07:58)
[2016-03-21] MEDS: AMIODARONE 200 MG TAB PO SCH ×2 (07:58→16:30)
[2016-03-21] MEDS: FLUTICASONE PROPIONATE NA SPR 16 GM BTL NAE SCH (07:59)
--- NOTE | 2016-03-21 09:40 | ECHOCARDIOGRAM REPORT ---
*NOTICE TO RECEIVING CONSTITUTION PARTY AGENCY This information is strictly Confidential and protected under [place] law. [place] law prohibits you from making any further disclosure of this information unless further disclosure is expressly permitted by the written consent of the person to whom it pertains or is authorized by law. A general authorization for the release of medical or other information is not sufficient for this purpose. Hospital accepts no responsibility if the information is made available to any other person, INCLUDING THE PATIENT. Interpretation Summary * Name: CALLY LOONEY JR Study Date: 03/21/2016 07:36 AM BP: 100/68 mmHg * Patient Location: .[facility]\S\E103\S\1 HR: 110 * : 1935 (M/d/yyyy) Gender: Male Height: 70 in * Age: 80 yrs Ethnicity: CA Weight: 201 lb * Ordering Physician: Syeda Lau * Referring Physician: Self, Referred * Performed By: Yuliya Mike RCS * * Reason For Study: BACTEREMIA * BSA: 2.1 m2 * The study was technically adequate. * Limited views were obtained. * Compared to prior study, changes are noted. * -- Conclusions -- * Ejection Fraction = 30-35%. * There is moderate global hypokinesis of the left ventricle. * There is mild concentric left ventricular hypertrophy. * There is a small circumferential pericardial effusion with a moderate amount of fluid in the posterior region. * Pericardial fibrinous strands are noted. * There is no diastolic compression of the right ventricle to suggest cardiac tamponade. Procedure Details * Limited views were obtained. Left Ventricle * There is mild concentric left ventricular hypertrophy. * Ejection Fraction = 30-35%. * There is moderate global hypokinesis of the left ventricle. Right Ventricle * There is a catheter in the right ventricle. * The right ventricular cavity size is normal (basal dimension <4.2 cm in right ventricular apical 4-chamber view). * The right ventricular systolic function is normal. Atria * The left atrium is moderately dilated. * The right atrium is moderately dilated. Mitral Valve * There is moderate mitral annular calcification. * The mitral valve leaflets appear thickened, but open well. * There is no mitral valve stenosis. * There is mild to moderate mitral regurgitation. Tricuspid Valve * The tricuspid valve anatomy is normal. * There is no tricuspid stenosis. * No tricuspid regurgitation. Aortic Valve * The aortic valve is not well visualized. * Aortic valve sclerosis mild, without significant aortic valvular stenosis. * There is no significant aortic regurgitation. Pulmonic Valve * The pulmonary valve is not well seen, but the Doppler examination is normal without significant regurgitation or stenosis. Pericardium/Pleural * There is a small circumferential pericardial effusion with a moderate amount of fluid in the posterior region. * Pericardial fibrinous strands are noted. * There is no diastolic compression of the right ventricle to suggest cardiac tamponade. Great Vessels * Dilated inferior vena cava with reduced collapsability with sniff indicates an elevated right atrial pressure of 15 mmHg MMode 2D Measurements and Calculations IVSd 1.7 cm IVSs 2.1 cm LVIDd 6.6 cm LVIDs 5.5 cm LVPWd 1.4 cm LVPWs 2.0 cm IVS/LVPW 1.2 FS 17.0 % EDV(Teich) 225.1 ml ESV(Teich) 147.2 ml EF(Teich) 34.6 % EDV(cubed) 290.1 ml ESV(cubed) 166.0 ml EF(cubed) 42.8 % % IVS thick 29.3 % % LVPW thick 44.3 % LV mass(C)d 515.7 grams LV mass(C)dI 246.5 grams/m\S\2 LV mass(C)s 616.0 grams LV mass(C)sI 294.5 grams/m\S\2 SV(Teich) 78.0 ml SI(Teich) 37.3 ml/m\S\2 SV(cubed) 124.1 ml SI(cubed) 59.3 ml/m\S\2 Ao root diam 3.6 cm Ao root area 10.1 cm\S\2 LA dimension 4.5 cm LA/Ao 1.3 LVOT diam 2.2 cm LVOT area 3.9 cm\S\2
--- NOTE | 2016-03-21 09:56 | Cardiology Follow-Up ---
Subjective General Date of Service: Mar 21, 2016. Chief Complaint: follow-up shortness of breath, congestive heart failure Pt evaluation today including: conversation w/ patient, conversation w/ family , physical exam, chart review, lab review, review of studies, conversation w/ market intelligence consultant, review of inpatient medication list History of Present Illness The patient is a 80 year old male seen in follow up. More confused today. C/o dysphagia. Nursing reports CP earlier, however, patient denies CP currently. Unable to wean dopamine. Creatinine and edema unchanged. Allergies Coded Allergies: Lisinopril (Verified Allergy, Unknown, RASH, 06/24/15) Spironolactone (Verified Allergy, Unknown, unkn, 06/24/15) Zolpidem (Verified Adverse Reaction, Unknown, HALLUCINATIONS, 06/24/15) Social History Smoking Status: Former Smoker Hx Tobacco Use In Past Year?: No Hx Alcohol Use - Type And Amou: No Hx Substance Use - Type And Am: No Problem List Medical Problems: (1) Acute bronchitis Status: Acute (2) Chronic renal disease Status: Acute (3) Elevated troponin Status: Acute (4) Influenza Status: Acute (5) Systolic congestive heart failure Status: Acute Review of Systems Respiratory: + shortness of breath, No cough, No dyspnea at rest, No dyspnea on exertion, No hemoptysis, No wheezing Cardiac: + edema, No PND, No chest pain, No claudication, No orthopnea, No palpitations Physical Exam Vital Signs Last Vital Signs Documentation Date Time Temp Pulse Resp B/P Pulse Ox O2 Delivery O2 Flow Rate FiO2 03/21/16 09:00 97 13 105/56 97 Room Air 03/21/16 07:59 36.7 03/19/16 16:00 2.0 Physical Exam Constitutional: Level of Distress: NAD, chronically ill Psychiatric: Mental Status: active & alert Head: normocephalic Eyes: EOM: EOMI ENMT: normal ENT inspection, hearing grossly normal Neck: supple, no masses Lungs: Respiratory effort: no dyspnea, good air movement Auscultation: breath sounds normal, no wheezing Cardiovascular: Heart Auscultation: no murmurs, no rubs, no gallops, irregular rate rhythm Peripheral Pulses: Bruits: none appreciated Abdomen: Bowel Sounds: normal Inspection & Palpation: soft, no tenderness, guarding & rebound, no masses Musculoskeletal: normal strength (5/5 throughout) Extremities: edema Neurologic: Gait & Station: pertinent finding (No focal motor deficit) Cranial Nerves: grossly intact Assessment and Plan Assessment and Plan FINAL IMPRESSION: 1. Pseudomonas bacteremia / sepsis - no vegetation on TTE - catheter tip culture negative 2. Small circumferential pericardial effusion - ? uremic or procedure related 3. TTE evidence of elevated RA pressure 4. 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 5. Chronic atrial fibrillation with frequent premature ventricular contractions -- borderline rate control. 6. Chronic systolic heart failure and cardiorenal syndrome with ejection fraction of 30-35% -volume overloaded. 7. 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 8. Acute kidney injury on chronic kidney disease. -creatinine plateaued at 6.6 9. Underlying chronic obstructive pulmonary disease. PLAN AND RECOMMENDATIONS: Transition dopamine infusion to levophed secondary to frequent ventricular ectopy and borderline rate control. PPM interrogation today to assess thresholds with evidence of new pericardial effusion. Coumadin on hold. Continue plavix. Await nephrology input regarding possible HD. Antibiotics per ID. Laboratory Results Last 24 Hours Test 03/20/16 11:00 03/20/16 16:06 03/21/16 05:25 03/21/16 06:18 Bedside Glucose (other) 86 mg/dl 90 mg/dl White Blood Count 14.69 K/uL Red Blood Count 3.05 M/uL Hemoglobin 9.2 g/dL Hematocrit 26.2 % Mean Corpuscular Volume 85.9 fL Mean Corpuscular Hemoglobin 30.2 pg Mean Corpuscular Hemoglobin Concent 35.1 g/dl Platelet Count 145 K/uL Mean Platelet Volume 9.4 fL Neutrophils (%) (Auto) 84.3 % Lymphocytes (%) (Auto) 7.0 % Monocytes (%) (Auto) 4.7 % Eosinophils (%) (Auto) 3.3 % Basophils (%) (Auto) 0.2 % Neutrophils # (Auto) 12.37 K/uL Lymphocytes # (Auto) 1.03 K/uL Monocytes # (Auto) 0.69 K/uL Eosinophils # (Auto) 0.49 K/uL Basophils # (Auto) 0.03 K/uL RDW Standard Deviation 55.7 fL RDW Coefficient of Variation 17.6 % Immature Granulocyte % (Auto) 0.5 % Immature Granulocyte # (Auto) 0.08 K/uL Prothrombin Time 18.1 SECONDS Prothromb Time International Ratio 1.7 Sodium Level 134 mmol/L Potassium Level 3.9 mmol/L Chloride Level 103 mmol/L Carbon Dioxide Level 19 mmol/L Anion Gap 12.0 mmol/L Blood Urea Nitrogen 82 mg/dl Creatinine 6.60 mg/dl Est Creatinine Clear Calc Drug Dose 10.0 ml/min Estimated GFR () 8.3 Estimated GFR (Non- 7.2 BUN/Creatinine Ratio 12.4 Random Glucose 133 mg/dl Calcium Level 7.7 mg/dl Phosphorus Level 5.9 mg/dl Random Vancomycin Level 17.4 mcg/ml Bedside Glucose 135 mg/dl
--- NOTE | 2016-03-21 09:58 | Pharmacy Progress Note ---
Glycemic: Assessment & Plan Date of Service Mar 21, 2016. Assessment & Plan Patient is an 80yo diabetic male who typically uses ~40 units of insulin per day as an outpatient. Since admission, renal function has been reduced dramatically (SCr 6.6 past 3 days). Patient has also had very little to eat past several days d/t difficulty swallowing, etc. Patient has required no insulin the past 48+ hours, with blood sugars all within or below goal range. Basal insulin has been discontinued at this point and patient has accu-checks four times daily with correctional insulin available if blood sugars begin to rise as kidney function and/or nutrition improves. * Basal insulin: On hold for now * Correctional Insulin: Novolog Correction per scale ACHS Goal Range: Low 140 mg/dL - High 180 mg/dL Correction Factor: 30 mg/dL/unit * Prandial insulin: Per carb ratio of 1 unit per 15 grams CHO consumed No changes needed to inpatient regimen at this time. Pharmacy will continue to monitor patient daily and write orders per [facility] inpatient glycemic control protocol. Thanks. * Please note that the plan above was derived based on current level of insulin resistance and hospital stress. These recommendations are appropriate for inpatient admission only. Plan of care upon discharge will need to be reassessed to avoid potential outpatient hypo/hyperglycemia.
[2016-03-21] MEDS: NOREPINEPHRINE BIT INJ 8 MG in DEXTROSE 5% 500ML 500 ML IV PRN ×2 (11:13→23:59)
--- NOTE | 2016-03-21 11:25 | Progress Note ---
Subjective Date of Service: Mar 21, 2016. Subjective repeat blood cultures pending, blood cultures from 03/19 growing pseudomonas, I to aztreonam only. Echo done on 03/21, no evidence of veg, effusion noted, no tamponade. He remains afebrile. tolerating abx, placed on cefepime and levaquin emperically. creat remains elevated 6.6, ? HD. wbc improved to 14.7 today. cath tip culture negative, final, urine culture negative. Problem List Medical Problems: (1) Acute bronchitis Status: Acute (2) Chronic renal disease Status: Acute (3) Elevated troponin Status: Acute (4) Influenza Status: Acute (5) Systolic congestive heart failure Status: Acute Objective Vital Signs Date Time Temp Pulse Resp B/P Pulse Ox O2 Delivery O2 Flow Rate FiO2 03/21/16 09:00 97 13 105/56 97 Room Air 03/21/16 08:29 104 14 105/64 95 Room Air 03/21/16 08:00 Room Air 03/21/16 07:59 36.7 111 15 118/59 95 Room Air 03/21/16 07:29 96 13 106/33 91 Room Air 03/21/16 06:00 93 18 100/68 93 Room Air 03/21/16 04:00 36.8 83 14 97/43 94 Room Air 03/21/16 04:00 94 Room Air 03/21/16 02:00 99 19 117/49 96 Room Air 03/21/16 00:00 99 12 93/53 96 Room Air 03/20/16 23:59 96 Room Air 03/20/16 22:00 96 17 105/52 93 Room Air 03/20/16 20:00 95 Room Air 03/20/16 20:00 36.8 105 15 104/60 93 Room Air 03/20/16 18:00 95 20 90/58 93 Room Air 03/20/16 16:00 Room Air 03/20/16 16:00 36.9 84 17 87/40 97 Room Air 03/20/16 15:29 99 17 98/40 94 Room Air 03/20/16 15:11 89 15 95/41 03/20/16 15:08 94 22 87/53 03/20/16 15:05 89 23 108/51 03/20/16 14:59 103 17 117/65 03/20/16 14:29 90 18 109/59 94 Room Air 03/20/16 13:59 83 16 89/42 92 Room Air 03/20/16 12:59 85 15 93/50 96 Room Air 03/20/16 12:29 89 16 98/61 94 Room Air 03/20/16 12:00 Room Air 03/20/16 11:59 36.6 87 19 94/49 94 Room Air 03/20/16 11:29 89 25 109/56 96 Room Air Laboratory Results Item Value Date Time Blood Culture - Preliminary Resulted 03/19/16 0712 Blood Pseudomonas Aeruginosa Blood Culture - Final Complete 03/19/16 0720 Blood Pseudomonas Aeruginosa Catheter Tip Culture - Final Complete 03/19/16 0000 Catheter Tip Picc Line NO GROWTH Urine Culture - Final Complete 03/19/16 0000 Urine,Catheterized NO GROWTH - LESS THAN 1,000 COLONIES/ML Last 24 Hours Test 03/20/16 16:06 03/21/16 05:25 03/21/16 06:18 Bedside Glucose (other) 90 mg/dl White Blood Count 14.69 K/uL Red Blood Count 3.05 M/uL Hemoglobin 9.2 g/dL Hematocrit 26.2 % Mean Corpuscular Volume 85.9 fL Mean Corpuscular Hemoglobin 30.2 pg Mean Corpuscular Hemoglobin Concent 35.1 g/dl Platelet Count 145 K/uL Mean Platelet Volume 9.4 fL Neutrophils (%) (Auto) 84.3 % Lymphocytes (%) (Auto) 7.0 % Monocytes (%) (Auto) 4.7 % Eosinophils (%) (Auto) 3.3 % Basophils (%) (Auto) 0.2 % Neutrophils # (Auto) 12.37 K/uL Lymphocytes # (Auto) 1.03 K/uL Monocytes # (Auto) 0.69 K/uL Eosinophils # (Auto) 0.49 K/uL Basophils # (Auto) 0.03 K/uL RDW Standard Deviation 55.7 fL RDW Coefficient of Variation 17.6 % Immature Granulocyte % (Auto) 0.5 % Immature Granulocyte # (Auto) 0.08 K/uL Prothrombin Time 18.1 SECONDS Prothromb Time International Ratio 1.7 Sodium Level 134 mmol/L Potassium Level 3.9 mmol/L Chloride Level 103 mmol/L Carbon Dioxide Level 19 mmol/L Anion Gap 12.0 mmol/L Blood Urea Nitrogen 82 mg/dl Creatinine 6.60 mg/dl Est Creatinine Clear Calc Drug Dose 10.0 ml/min Estimated GFR () 8.3 Estimated GFR (Non- 7.2 BUN/Creatinine Ratio 12.4 Random Glucose 133 mg/dl Calcium Level 7.7 mg/dl Phosphorus Level 5.9 mg/dl Random Vancomycin Level 17.4 mcg/ml Bedside Glucose 135 mg/dl Assessment and Plan (1) Pseudomonas septicemia Assessment & Plan: continue cefepime, will stop levaquin, especially with pt being on amio as well. He will likely need 14 days from first negative, 03/20 cultures pending. ? source, cath tip negative, urine culture negative, echo without veg. continue supportive care. Discharge planning: rehab hospital
[2016-03-21] MEDS ORDERED: VANCOMYCIN INJ 800 MG in SODIUM CHLORIDE 0.9% 250ML 250 ML IV ONE (12:00)
--- NOTE | 2016-03-21 12:30 | Critical Care Progress Note ---
Critical Care Progress Note Date of Service Mar 21, 2016. Attending Dr. Cleveland Subjective Sleepy today C/o difficulty swallowing, feeling sore. Hiccups for couple of days. Remains on Dopamine Objective Date Time Temp Pulse Resp B/P Pulse Ox O2 Delivery O2 Flow Rate FiO2 03/21/16 09:00 97 13 105/56 97 Room Air 03/21/16 08:29 104 14 105/64 95 Room Air 03/21/16 08:00 Room Air 03/21/16 07:59 36.7 111 15 118/59 95 Room Air 03/21/16 07:29 96 13 106/33 91 Room Air 03/21/16 06:00 93 18 100/68 93 Room Air 03/21/16 04:00 36.8 83 14 97/43 94 Room Air 03/21/16 04:00 94 Room Air 03/21/16 02:00 99 19 117/49 96 Room Air 03/21/16 00:00 99 12 93/53 96 Room Air 03/20/16 23:59 96 Room Air 03/20/16 22:00 96 17 105/52 93 Room Air 03/20/16 20:00 95 Room Air 03/20/16 20:00 36.8 105 15 104/60 93 Room Air 03/20/16 18:00 95 20 90/58 93 Room Air 03/20/16 16:00 Room Air 03/20/16 16:00 36.9 84 17 87/40 97 Room Air 03/20/16 15:29 99 17 98/40 94 Room Air 03/20/16 15:11 89 15 95/41 03/20/16 15:08 94 22 87/53 03/20/16 15:05 89 23 108/51 03/20/16 14:59 103 17 117/65 03/20/16 14:29 90 18 109/59 94 Room Air 03/20/16 13:59 83 16 89/42 92 Room Air 03/20/16 12:59 85 15 93/50 96 Room Air 03/20/16 12:29 89 16 98/61 94 Room Air BOTTOM SAW OPERATOR: AAOx 3 but lethargic. No focal deficit HEENT: PERRL. Throat is clean, no thrush Pupils: Equal round reactive, Focal Signs: None Respiratory: Scattered rhonchi bilaterally Cardiovascular: S1-S2 occasional extrasystoles no murmurs rubs gallops Rhythm: paced Abdomen: Soft, non-tender, non-distended Ext: Anasarca, more pronounced in the upper extremities 24-Hour Column 03/21/16 08:00 Intake Total 1519 ml Output Total 875 ml Balance 644 ml Assessment & Plan 80 year-old male with advanced cardiomyopathy, s/p PPM/ICD. Now with Pseudomonas bacteremia, PICC removed. Worsening renal failure A-fib H/o pancreatic CA, s/p Whipple DM H/o CVA Plan: BOTTOM SAW OPERATOR: Monitor mental status, most likely uremia plays a role in his confusion CVS: Switch Dopamine to Levophed, not bradycardic now that he was the pacemaker. Also, Levophed is less arrhythmogenic. Continue Plavix. Warfarin on hold for now. Resume when ok with cardiology given pocket hematoma Continue Amiodarone Pulmonary: Stable for now Elevate head ID: Pseudomonas sensitivities reviewed. Abx tailored to Cefepime for now. F/u repeat blood cultures PICC removed Renal/Metabolic: May require HD Monitor creatinine and urine output. S/p albumin today GI: Failed swallow evaluation today Needs NGT Heme: To eventually resume anticoagulation Platelets recovered Endo: Good glycemic control for now I discussed his care with his extensively at bedside She had an opportunity to ask questions. DVT prophylaxis: ICDs Critical care time 35 minutes. Data Medications: Current Inpatient Medications Medications (Trade) Dose Ordered Sig/Quoc Route Start Time Stop Time Status Last Admin Dose Admin Nitroglycerin (Nitrostat Tab) 0.4 mg UD PRN SL 03/08/16 17:00 04/07/16 16:59 03/14/16 08:34 0.4 MG Glucose (Glucose 40% Gel) 15-30 GRAMS 15 GRAMS... UD PRN PO 03/08/16 17:15 04/07/16 17:14 Glucose (Glucose Chew Tab) 4-8 Tablets 4 Tabl... UD PRN PO 03/08/16 17:15 04/07/16 17:14 Dextrose (Dextrose 50% 50ML Syringe) 25-50ML OF 50% DW IV FOR... UD PRN IV 03/08/16 17:15 04/07/16 17:14 Glucagon (Glucagon Inj) 1 mg UD PRN SQ 03/08/16 17:15 04/07/16 17:14 Miscellaneous Information (Consult Glycemic Management Pharmacy) 1 ea UD PRN N/A 03/08/16 19:45 04/07/16 19:44 Atorvastatin Calcium (Lipitor Tab) 10 mg DAILY PO 03/09/16 09:00 04/08/16 08:59 03/21/16 07:57 10 MG Clopidogrel Bisulfate (plAVix TAB) 75 mg DAILY PO 03/09/16 09:00 04/08/16 08:59 Future hold 03/21/16 07:57 75 MG Fluticasone Propionate (Flonase Nasal Graham) 2 sprays DAILY RICHA 03/09/16 09:00 04/08/16 08:59 03/21/16 07:59 2 SPRAYS Levalbuterol (Xopenex Hfa Inhaler) 2 puffs Q4H PRN INH 03/08/16 17:30 04/07/16 17:29 Sertraline HCl (Zoloft Tab) 25 mg DAILY PO 03/09/16 09:00 04/08/16 08:59 03/21/16 07:57 25 MG Tamsulosin HCl (Flomax Cap) 0.4 mg DAILY PO 03/09/16 09:00 04/08/16 08:59 03/21/16 07:58 0.4 MG Miscellaneous Information (Order Awaiting Action) 1 ea QS N/A 03/08/16 19:45 04/07/16 19:44 Amylase/Lipase/ Protease (Pancreaze (Lipase 10,500U) Cap) 2 cap TIDM PO 03/09/16 07:15 04/08/16 07:29 03/21/16 07:56 2 CAP Amylase/Lipase/ Protease (Pancreaze (Lipase 10,500U) Cap) 1-2 CAPS WITH SNACKS UD PRN PO 03/08/16 19:45 04/07/16 19:44 Docusate Sodium (coLACE CAP) 100 mg BID PO 03/10/16 18:00 04/09/16 17:59 03/21/16 07:57 100 MG Polyethylene (Miralax Powder Packet) 17 gm Q6H PRN PO 03/10/16 21:15 04/09/16 21:14 03/13/16 10:48 17 GM Pantoprazole Sodium (Protonix Tab) 40 mg QAM PO 03/12/16 09:00 04/11/16 08:59 03/21/16 07:58 40 MG Acetaminophen/ Codeine Phosphate (Tylenol w/ Codeine #3 Tab) 1 tab for pain scale 4-6 2 t... Q4H PRN PO 03/12/16 09:30 04/11/16 09:29 03/20/16 21:03 2 TAB Acetaminophen (Tylenol Tab) 650 mg Q4H PRN PO 03/12/16 09:30 04/11/16 09:29 03/20/16 22:59 650 MG Insulin Aspart (novoLOG ASPART) SLIDING SCALE G... ACHS SC 03/12/16 16:00 04/11/16 15:59 03/18/16 16:39 4 UNITS Warfarin Sodium (Coumadin Tab) 2.5 mg DAILY@16 PO 03/13/16 16:00 04/12/16 15:59 Future Hold 03/15/16 16:39 2.5 MG Ondansetron HCl (Zofran Inj) 4 mg Q4H PRN IV 03/14/16 08:45 04/13/16 08:44 03/16/16 16:05 4 MG Amiodarone HCl 200 mg 200 mg BIDM PO 03/14/16 16:30 04/13/16 16:29 03/21/16 07:58 200 MG Dopamine HCl/ Dextrose (DOPamine 400MG / D5W) 250 ml @ 0 mls/hr Q0M PRN IV 03/15/16 09:45 04/14/16 09:44 03/21/16 05:34 6.6 MLS/HR Bisacodyl (Dulcolax Supp) 10 mg DAILY PRN MI 03/16/16 09:45 04/15/16 09:44 03/17/16 10:10 10 MG Polyethylene (Miralax Powder Packet) 17 gm BID PO 03/17/16 09:00 04/16/16 08:59 03/21/16 07:56 17 GM Vancomycin HCl (Consult) 1 ea UD PRN N/A 03/19/16 07:30 04/18/16 07:29 Cefepime HCl 1 ea 1 ea UD PRN N/A 03/19/16 10:15 04/18/16 10:14 Cefepime HCl/ Dextrose (Maxipime IV/D5 100ml) 105.65 ml @ 200 mls/ hr Q24H IV 03/20/16 20:00 03/29/16 19:59 03/20/16 21:01 200 MLS/HR Calcitriol (Rocaltrol Cap) 0.25 mcg MoWeFr@0900 PO 03/21/16 09:00 04/20/16 08:59 03/21/16 07:58 0.25 MCG Levofloxacin (Consult) 1 ea UD PRN N/A 03/19/16 20:00 04/18/16 19:59 Albumin Human 12.5 gm 12.5 gm 0700,0800 IV 03/21/16 07:00 03/21/16 18:00 03/21/16 09:11 12.5 GM Norepinephrine Bitartrate 8 mg/ Dextrose 508 ml @ 0 mls/hr Q0M PRN IV 03/21/16 10:45 04/20/16 10:44 03/21/16 11:13 30 MLS/HR Vancomycin HCl/ Sodium Chloride (Vancomycin Inj/ Nss 250ml) 266 ml @ 125 mls/hr TODAY@1200 ONCE IV 03/21/16 12:00 03/21/16 14:07 I & O: 24-Hour Column 03/21/16 08:00 Intake Total 1519 ml Output Total 875 ml Balance 644 ml Vital Signs: Date Time Temp Pulse Resp B/P Pulse Ox O2 Delivery O2 Flow Rate FiO2 03/21/16 09:00 97 13 105/56 97 Room Air 03/21/16 08:29 104 14 105/64 95 Room Air 03/21/16 08:00 Room Air 03/21/16 07:59 36.7 111 15 118/59 95 Room Air 03/21/16 07:29 96 13 106/33 91 Room Air 03/21/16 06:00 93 18 100/68 93 Room Air 03/21/16 04:00 36.8 83 14 97/43 94 Room Air 03/21/16 04:00 94 Room Air 03/21/16 02:00 99 19 117/49 96 Room Air 03/21/16 00:00 99 12 93/53 96 Room Air 03/20/16 23:59 96 Room Air 03/20/16 22:00 96 17 105/52 93 Room Air 03/20/16 20:00 95 Room Air 03/20/16 20:00 36.8 105 15 104/60 93 Room Air 03/20/16 18:00 95 20 90/58 93 Room Air 03/20/16 16:00 Room Air 03/20/16 16:00 36.9 84 17 87/40 97 Room Air 03/20/16 15:29 99 17 98/40 94 Room Air 03/20/16 15:11 89 15 95/41 03/20/16 15:08 94 22 87/53 03/20/16 15:05 89 23 108/51 03/20/16 14:59 103 17 117/65 03/20/16 14:29 90 18 109/59 94 Room Air 03/20/16 13:59 83 16 89/42 92 Room Air 03/20/16 12:59 85 15 93/50 96 Room Air 03/20/16 12:29 89 16 98/61 94 Room Air 03/20/16 12:00 Room Air 03/20/16 11:59 36.6 87 19 94/49 94 Room Air Laboratory Results: Last 24 Hours Test 03/20/16 16:06 03/21/16 05:25 03/21/16 06:18 Bedside Glucose (other) 90 mg/dl White Blood Count 14.69 K/uL Red Blood Count 3.05 M/uL Hemoglobin 9.2 g/dL Hematocrit 26.2 % Mean Corpuscular Volume 85.9 fL Mean Corpuscular Hemoglobin 30.2 pg Mean Corpuscular Hemoglobin Concent 35.1 g/dl Platelet Count 145 K/uL Mean Platelet Volume 9.4 fL Neutrophils (%) (Auto) 84.3 % Lymphocytes (%) (Auto) 7.0 % Monocytes (%) (Auto) 4.7 % Eosinophils (%) (Auto) 3.3 % Basophils (%) (Auto) 0.2 % Neutrophils # (Auto) 12.37 K/uL Lymphocytes # (Auto) 1.03 K/uL Monocytes # (Auto) 0.69 K/uL Eosinophils # (Auto) 0.49 K/uL Basophils # (Auto) 0.03 K/uL RDW Standard Deviation 55.7 fL RDW Coefficient of Variation 17.6 % Immature Granulocyte % (Auto) 0.5 % Immature Granulocyte # (Auto) 0.08 K/uL Prothrombin Time 18.1 SECONDS Prothromb Time International Ratio 1.7 Sodium Level 134 mmol/L Potassium Level 3.9 mmol/L Chloride Level 103 mmol/L Carbon Dioxide Level 19 mmol/L Anion Gap 12.0 mmol/L Blood Urea Nitrogen 82 mg/dl Creatinine 6.60 mg/dl Est Creatinine Clear Calc Drug Dose 10.0 ml/min Estimated GFR () 8.3 Estimated GFR (Non- 7.2 BUN/Creatinine Ratio 12.4 Random Glucose 133 mg/dl Calcium Level 7.7 mg/dl Phosphorus Level 5.9 mg/dl Random Vancomycin Level 17.4 mcg/ml Bedside Glucose 135 mg/dl
--- NOTE | 2016-03-21 14:24 | Cardiology Follow-Up ---
Subjective Date of Service: Mar 21, 2016. Pt evaluation today including: conversation w/ patient, conversation w/ family , physical exam, lab review, review of studies, conversation w/ nurse consultant History of Present Illness This is a very pleasant 80-year-old gentleman who has a history of ischemic cardiomyopathy including multiple coronary interventions. His left ventricular ejection fraction had declined to 33% in 2012 and has remained in that range. He was initially followed by [facility], subsequently transferred his care to [place], and has now returned to [facility]. He has a history of nonsustained ventricular tachycardia which I believe has been asymptomatic in the past. He has been offered an ICD in the past which she has declined. His current admission however is due to progressive weakness, loss of appetite and some shortness of breath. He then had a dizzy spell where he fell to the floor, evidently did not lose consciousness but came close. In the emergency room he was hypotensive and his blood pressure responded to IV fluids, he was also in atrial fibrillation (which is permanent) and he was bradycardic on minimal AV miky blocking medications (carvedilol 6.25 mg twice a day which he needs for his cardiomyopathy). His heart rate has increased with discontinuation of beta blockade and addition of dobutamine, he was temporary paced for some time. Here he has had a rising creatinine due to acute kidney injury, probably due to hypotension and bradycardia and decreased perfusion. He has also had low-grade enzyme release which is probably demand ischemia not infarction. I discussed options of biventricular pacing to improve cardiac output and renal perfusion as well as to try to help his cardiomyopathy due to improvement in regularity, He agreed to this and ICD therapy and a Bi-Ventricular ICD (without an atrial lead) was implanted 03/12/2016. There was only one adequate LV location due to venous anatomy, it is anatomically good but thresholds were a little high but stable and acceptable. Events over the last several days were reviewed, he is having difficulty with hypotension and kidney function, he does have a small pericardial effusion and his left ventricular pacing threshold is increased somewhat. He is sleepy today , does not communicate normally but appears to be comfortable in bed. Social History Smoking Status: Former Smoker History of Alcohol Use: No Review of Systems Respiratory: + shortness of breath, No cough, No dyspnea at rest, No dyspnea on exertion, No hemoptysis, No wheezing Cardiac: + edema, No PND, No chest pain, No claudication, No orthopnea, No palpitations Objective Vital Signs Past 12 Hours Date Time Temp Pulse Resp B/P Pulse Ox O2 Delivery O2 Flow Rate FiO2 03/21/16 12:39 Room Air Nasal Cannula 03/21/16 12:15 36.9 89 14 101/49 97 Room Air 03/21/16 12:15 Room Air 03/21/16 09:00 97 13 105/56 97 Room Air 03/21/16 08:29 104 14 105/64 95 Room Air 03/21/16 08:00 Room Air 03/21/16 07:59 36.7 111 15 118/59 95 Room Air 03/21/16 07:29 96 13 106/33 91 Room Air 03/21/16 06:00 93 18 100/68 93 Room Air 03/21/16 04:00 36.8 83 14 97/43 94 Room Air 03/21/16 04:00 94 Room Air Last Recorded Weight-Kilograms: 92.200 Intake & Output 8-Hour Column 03/20/16 03/20/16 03/21/16 15:59 23:59 07:59 Intake Total 472 ml 394 ml 653 ml Output Total 275 ml 275 ml 325 ml Balance 197 ml 119 ml 328 ml 24-Hour Column 03/21/16 07:59 Intake Total 1519 ml Output Total 875 ml Balance 644 ml Physical Exam Constitutional: Level of Distress: NAD, chronically ill Lungs: Respiratory effort: good air movement Auscultation: no wheezing, decreased breath sounds Cardiovascular: Heart Auscultation: no murmurs, no rubs, no gallops, irregular rate rhythm Peripheral Pulses: Bruits: none appreciated The incision is clean and dry, no hematoma or ecchymosis. No tenderness. Data Laboratory Results: Last 24 Hours Test 03/20/16 16:06 03/21/16 05:25 03/21/16 06:18 03/21/16 11:05 Bedside Glucose (other) 90 mg/dl 92 mg/dl White Blood Count 14.69 K/uL Red Blood Count 3.05 M/uL Hemoglobin 9.2 g/dL Hematocrit 26.2 % Mean Corpuscular Volume 85.9 fL Mean Corpuscular Hemoglobin 30.2 pg Mean Corpuscular Hemoglobin Concent 35.1 g/dl Platelet Count 145 K/uL Mean Platelet Volume 9.4 fL Neutrophils (%) (Auto) 84.3 % Lymphocytes (%) (Auto) 7.0 % Monocytes (%) (Auto) 4.7 % Eosinophils (%) (Auto) 3.3 % Basophils (%) (Auto) 0.2 % Neutrophils # (Auto) 12.37 K/uL Lymphocytes # (Auto) 1.03 K/uL Monocytes # (Auto) 0.69 K/uL Eosinophils # (Auto) 0.49 K/uL Basophils # (Auto) 0.03 K/uL RDW Standard Deviation 55.7 fL RDW Coefficient of Variation 17.6 % Immature Granulocyte % (Auto) 0.5 % Immature Granulocyte # (Auto) 0.08 K/uL Prothrombin Time 18.1 SECONDS Prothromb Time International Ratio 1.7 Sodium Level 134 mmol/L Potassium Level 3.9 mmol/L Chloride Level 103 mmol/L Carbon Dioxide Level 19 mmol/L Anion Gap 12.0 mmol/L Blood Urea Nitrogen 82 mg/dl Creatinine 6.60 mg/dl Est Creatinine Clear Calc Drug Dose 10.0 ml/min Estimated GFR () 8.3 Estimated GFR (Non- 7.2 BUN/Creatinine Ratio 12.4 Random Glucose 133 mg/dl Calcium Level 7.7 mg/dl Phosphorus Level 5.9 mg/dl Random Vancomycin Level 17.4 mcg/ml Bedside Glucose 135 mg/dl Imaging: I reviewed his chest x-rays from postoperative pacemaker implantation to current, left ventricular lead appears to be unchanged in position as does the right ventricular lead. Pacemaker evaluation: His left ventricular pacing threshold has been gradually increasing since implantation, however remains within the capability of his device. We did not try alternative vectors for pacing, in the laboratory at implant these cause diaphragmatic pacing. Assessment and Plan #1. Biventricular ICD: Post ICD implant: The device is functioning adequately although the left ventricular pacing threshold is gradually rising. We did reprogram the device today but did not test for additional vectors as they cause diaphragmatic pacing at implant. We may be able to test for that in the future, perhaps there will be a change postoperatively if there was a micro- dislodgment of the lead. The site looks good. #2. Atrial fibrillation: On admission with slow ventricular response, now improved but continues to be irregular. #3. Ventricular ectopy: He has very frequent ventricular ectopy including PVCs and runs of ventricular tachycardia. This will interfere with our ability to biventricularly pace. This may limit his long-term response but over the short- term is probably not terribly important. #4. Rising left ventricular lead threshold: I don't think this is due to perforation, I have not heard of a left ventricular lead (which is in a epicardial vein) perforation, and a small pericardial effusion is unlikely to be due to perforation. Right ventricular lead appears to be stable and in good location as well. On x-ray the left ventricular lead position appears unchanged. I think this is due to changes in his myocardium or micro- dislodgment (slight movement) which can occur and is not generally detrimental. We should continue to follow his threshold, at some point I would like to test for different factors but at the moment I was really not consider invasive evaluation. Thank you for allowing me to participate in his care.
--- NOTE | 2016-03-21 15:03 | DIAGNOSTIC IMAGING REPORT ---
MODIFIED BARIUM SWALLOW CLINICAL HISTORY: Difficulty swallowing. COMPARISON STUDY: Modified barium swallow May 21, 2014. Fluoroscopy time: 4 minutes. FINDINGS: Several episodes of silent tracheal aspiration were noted with thin liquids, nectar thick liquids and honey consistency. No aspiration was noted with pudding consistency. There was premature spillage. Residuals were noted with pudding consistency. IMPRESSION: 1. Several episodes of silent tracheal aspiration with thin liquids, nectar thick liquids and honey consistency. No aspiration with pudding consistency. 2. Premature spillage with thin liquids and nectar thick liquids with moderate residuals with pudding consistency. 3. Full recommendations by speech pathology to follow. Electronically signed by: Torsten Dorsey M.D. 03/21/2016 3:02 PM
[2016-03-21] MEDS ORDERED: INSULIN ASPART 100 UNITS/ML 3 ML PEN SC SCH (16:15)
[2016-03-21] MEDS ORDERED: NURSING VERBAL MED ORDER ONE ×2 (16:15→17:30)
[2016-03-21] MEDS ORDERED: NOVASOURCE RENAL 1000ML BAG PO SCH (17:30)
--- NOTE | 2016-03-21 17:43 | DIAGNOSTIC IMAGING REPORT ---
KUB CLINICAL HISTORY: Abdominal film for nasogastric tube placement COMPARISON STUDY: 03/15/2016 FINDINGS: There is a feeding tube with its tip at the level of the gastric cardia. The heart is enlarged. There is no pathologic bowel dilatation. There are degenerative changes within the spine. There is a screw visualized from a right hip arthroplasty. IMPRESSION: The feeding tube is positioned within the stomach. Electronically signed by: Mohsen Dobbs M.D. 03/21/2016 5:42 PM
--- NOTE | 2016-03-21 17:58 | Progress Note ---
Internal Med Progress Note Date of Service: Mar 21, 2016. Provider Documentation: SUBJECTIVE: Patient had a video fluroscopy- aspirating + NPO now and has an NG tube No new cough, chest pain, nausea, vomiting, abd pain, urinary symptoms No fever spikes OBJECTIVE: Vital Signs-as noted below Exam: General-awake; oriented x 2, lethargic Eyes-EOMI; no scleral icterus Neck-no JVD; Left IJ Central line + Lungs-coarse breath sounds anteriorly Heart-irregularly irregular Abdomen-soft; NTND; nBS Extremities-2+ peripheral pulses; 1+ le edema; edema of ue, r>l Neuro-no gross focal deficits Lab data as noted below. Procedures: CT head Interval right parietal infarct. No acute intracranial findings. CT c-spine Findings of severe degenerative change combined with extensive posterior laminectomy defects. No acute process is appreciated. TTE * The study was technically limited. * The left ventricle is moderately dilated. * Left ventricular systolic function is moderate to severely reduced. * Ejection Fraction = 30-35%. * The right ventricular systolic function is normal. * There is mild mitral regurgitation. Renal ultrasound 1. there is mild hydronephrosis right kidney. 2. Several left renal cyst. 3. Complex cyst mid to lower aspect right kidney. 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 Found to have symptomatic bradycardia, sick sinus syndrome, s/p biventricular pacemaker 03/12/16. Now with sepsis (febrile, rigors, hypotensive). SEPSIS/BACTEREMIA ( PSEUDOMONAS) - Unclear source - D/D considered: Abdominal source, UTI but negative, no pneumonia, Line in situ- sent for cultures - IV fluid - cautious with worsening kidney function/concern for volume overload - S/P IV Dopamine drip--changed to levophed due to ventricular ectopy - Blood cx x 2- pseudomonas. Tip culture/Urine cx- negative. Repeat Blood cultures ordered - pending. - Continue with IV Cefepime per ID (To be continued x 14 days post negative repeat blood cx). Lactic acid- normal SYMPTOMATIC BRADYCARDIA S/P BIVENTRICULAR PACEMAKER AICD -03/21/16 -Echo shows small circumferential pericardial effusion -EP evaluated patient- interrogated pacemaker and reprogramed the device -On amiodarone for ectopy -Cardiology/EP following ASPIRATION + Video swallow test done today - aspirating liquids/solids -Swallow evaluation recommends- NPO -NG tube placed- plan is to start feeding from today HISTORY OF NON ISCHEMIC CARDIOMYOPATHY - continue atorvastatin, clopidogrel - holding carvedilol, torsemide and Entresto given pressor requirement and JOSUÉ A FIB - Coumadin initially held for supratherapeutic INR - Coumadin then restarted post-procedure (pacemaker placement) - Coumadin back on hold in case of need for line placement for HD - Continued on Amiodarone DM 2 - glycemic pharmacy consulted - continue insulin therapy JOSUÉ (baseline CKD stage 3) - nephrology consulted - creatinine up-trending - received albumin and IVF's with sodium bicarbonate - then intermittently diuresed with furosemide vs bumetanide given volume status - holding torsemide and Entresto (home medications) - renal ultrasound with mild hydronephrosis, not thought to be contributory - urine output was improving but now on decline, likely 2/2 sepsis - Nephrology to decide about dialysis URINARY RETENTION - Urology consulted - barlow placed - continue tamsulosin HISTORY OF CVA - continue Plavix, Atorvastatin - Coumadin on hold in case of need for line placement HISTORY OF PANCREATIC CANCER - s/p Whipple procedure - continue Pancreaze NUTRITION Video swallow test done today - aspirating liquids/solids -Swallow evaluation recommends- NPO -NG tube placed- plan is to start feeding from today DVT prophylaxis - Coumadin on hold - SCD's DISPO PT recommending acute rehab when medically stable Code status Full code as per patient Discharge planning: rehab hospital Discussed with Hogshead Inspector/ by bedside,. Vital Signs: Date Time Temp Pulse Resp B/P Pulse Ox O2 Delivery O2 Flow Rate FiO2 03/21/16 16:00 Room Air 03/21/16 15:02 104 17 105/62 96 Room Air 03/21/16 14:29 102 18 103/53 95 Room Air 03/21/16 13:59 103 18 92/58 93 Room Air 03/21/16 13:29 109 16 102/52 96 Room Air 03/21/16 12:39 Room Air Nasal Cannula 03/21/16 12:15 36.9 89 14 101/49 97 Room Air 03/21/16 12:15 Room Air 03/21/16 09:00 97 13 105/56 97 Room Air 03/21/16 08:29 104 14 105/64 95 Room Air 03/21/16 08:00 Room Air 03/21/16 07:59 36.7 111 15 118/59 95 Room Air 03/21/16 07:29 96 13 106/33 91 Room Air 03/21/16 06:00 93 18 100/68 93 Room Air 03/21/16 04:00 36.8 83 14 97/43 94 Room Air 03/21/16 04:00 94 Room Air 03/21/16 02:00 99 19 117/49 96 Room Air 03/21/16 00:00 99 12 93/53 96 Room Air 03/20/16 23:59 96 Room Air 03/20/16 22:00 96 17 105/52 93 Room Air 03/20/16 20:00 95 Room Air 03/20/16 20:00 36.8 105 15 104/60 93 Room Air 03/20/16 18:00 95 20 90/58 93 Room Air Lab Results: Results Past 24 Hours Test 03/21/16 05:25 03/21/16 06:18 03/21/16 11:05 Range/Units White Blood Count 14.69 4.8-10.8 K/uL Red Blood Count 3.05 4.7-6.1 M/uL Hemoglobin 9.2 14.0-18.0 g/dL Hematocrit 26.2 42-52 % Mean Corpuscular Volume 85.9 80-100 fL Mean Corpuscular Hemoglobin 30.2 25-34 pg Mean Corpuscular Hemoglobin Concent 35.1 32-36 g/dl Platelet Count 145 130-400 K/uL Mean Platelet Volume 9.4 7.4-10.4 fL Neutrophils (%) (Auto) 84.3 % Lymphocytes (%) (Auto) 7.0 % Monocytes (%) (Auto) 4.7 % Eosinophils (%) (Auto) 3.3 % Basophils (%) (Auto) 0.2 % Neutrophils # (Auto) 12.37 1.4-6.5 K/uL Lymphocytes # (Auto) 1.03 1.2-3.4 K/uL Monocytes # (Auto) 0.69 0.11-0.59 K/uL Eosinophils # (Auto) 0.49 0-0.5 K/uL Basophils # (Auto) 0.03 0-0.2 K/uL RDW Standard Deviation 55.7 36.4-46.3 fL RDW Coefficient of Variation 17.6 11.5-14.5 % Immature Granulocyte % (Auto) 0.5 % Immature Granulocyte # (Auto) 0.08 0.00-0.02 K/uL Prothrombin Time 18.1 9.0-12.0 SECONDS Prothromb Time International Ratio 1.7 0.9-1.1 Sodium Level 134 136-145 mmol/L Potassium Level 3.9 3.5-5.1 mmol/L Chloride Level 103 98-107 mmol/L Carbon Dioxide Level 19 21-32 mmol/L Anion Gap 12.0 3-11 mmol/L Blood Urea Nitrogen 82 7-18 mg/dl Creatinine 6.60 0.60-1.40 mg/dl Est Creatinine Clear Calc Drug Dose 10.0 ml/min Estimated GFR () 8.3 Estimated GFR (Non- 7.2 BUN/Creatinine Ratio 12.4 10-20 Random Glucose 133 70-99 mg/dl Calcium Level 7.7 8.5-10.1 mg/dl Phosphorus Level 5.9 2.5-4.9 mg/dl Random Vancomycin Level 17.4 mcg/ml Bedside Glucose 135 70-99 mg/dl Bedside Glucose (other) 92 70-99 mg/dl
[2016-03-21] MEDS: CEFEPIME IV 500 MG in DEXTROSE 5% 100ML 100 ML IV SCH (19:41)
[2016-03-21] MEDS ORDERED: LEVOFLOXACIN 500MG / D5W IV SCH (20:00)
[2016-03-22] VITALS (48 sets, daily range): BP systolic 82–123; BP diastolic 43–69; PULSE 83–113; TEMP 36.4–37; O2SAT 90–100
[2016-03-22] MEDS: INSULIN ASPART 100 UNITS/ML 3 ML PEN SC SCH ×3 (05:49→16:50)
[2016-03-22 06:01] LABS: HEMATOCRIT 26.3 % (42-52); MEAN CELL VOLUME 84.6 fL (80-100); MEAN CORPUSCULAR HEMOGLOBIN 29.9 pg (25-34); MEAN CORPUSCULAR HGB CONC 35.4 g/dl (32-36); MEAN PLATELET VOLUME 9.4 fL (7.4-10.4); PLATELET COUNT 171 K/uL (130-400); RED BLOOD COUNT 3.11 M/uL (4.7-6.1); WHITE BLOOD COUNT 13.63 K/uL (4.8-10.8)
--- NOTE | 2016-03-22 06:22 | Nephrology Progress Note ---
Nephrology Progress Note Date of Service: Mar 22, 2016. Subjective 80 yo male with regis/atn with creatinine of 6.6 yesterday. today's labs are pending. pt off of dopamine secondary to ectopy and on levo. urine output is slowing down overnight. was 250 from 3 to 11 and 120 from 11 to 7. pt now on tube feeds since having difficulty with swallowing. pt more confused now. Objective Date Time Temp Pulse Resp B/P Pulse Ox O2 Delivery O2 Flow Rate FiO2 03/22/16 04:29 90 14 86/48 97 03/22/16 04:00 Room Air 03/22/16 03:59 36.6 103 16 101/67 98 Room Air 03/22/16 03:29 104 18 118/45 98 03/22/16 02:59 92 16 97/60 98 03/22/16 02:29 102 15 98/50 100 03/22/16 01:59 111 16 96/56 97 03/22/16 01:29 98 17 119/55 100 03/22/16 00:59 103 13 99/57 99 03/22/16 00:29 103 17 91/61 99 03/22/16 00:01 Room Air 03/21/16 23:59 36.8 102 15 108/51 99 Room Air 03/21/16 23:48 95 20 98/55 98 03/21/16 23:29 82 16 85/57 99 03/21/16 22:59 90 22 91/53 97 03/21/16 22:29 102 14 113/50 97 03/21/16 21:59 108 22 101/69 97 03/21/16 21:49 109 22 93/53 93 03/21/16 21:32 101 16 90/43 96 03/21/16 21:29 68 19 78/43 95 03/21/16 21:23 108 20 84/49 95 03/21/16 21:04 97 22 88/50 92 03/21/16 21:02 89 19 62/26 86 03/21/16 20:59 92 26 79/45 98 03/21/16 20:43 93 26 92/56 03/21/16 20:29 102 21 91/51 03/21/16 20:00 Room Air 03/21/16 19:59 36.6 92 22 116/44 100 Room Air 03/21/16 19:29 91 23 113/57 100 03/21/16 19:12 102 22 90/48 96 03/21/16 18:00 88 20 100/48 95 Room Air 03/21/16 16:00 Room Air 03/21/16 15:02 104 17 105/62 96 Room Air 03/21/16 14:29 102 18 103/53 95 Room Air 03/21/16 13:59 103 18 92/58 93 Room Air 03/21/16 13:29 109 16 102/52 96 Room Air 03/21/16 12:39 Room Air Nasal Cannula 03/21/16 12:15 36.9 89 14 101/49 97 Room Air 03/21/16 12:15 Room Air 03/21/16 09:00 97 13 105/56 97 Room Air 03/21/16 08:29 104 14 105/64 95 Room Air 03/21/16 08:00 Room Air 03/21/16 07:59 36.7 111 15 118/59 95 Room Air 03/21/16 07:29 96 13 106/33 91 Room Air Physical Exam: General-confused, lethargic Eyes-no sceral icterus ENT-mmm Neck-supple Lungs-decreased breath sounds at bases Heart-irregular, tachy Abdomen-bs+ s/nt/nd Extremities-+3 pitting edema Neuro-confused Current Inpatient Medications Medications (Trade) Dose Ordered Sig/Quoc Route Start Time Stop Time Status Last Admin Dose Admin Nitroglycerin (Nitrostat Tab) 0.4 mg UD PRN SL 03/08/16 17:00 04/07/16 16:59 03/14/16 08:34 0.4 MG Glucose (Glucose 40% Gel) 15-30 GRAMS 15 GRAMS... UD PRN PO 03/08/16 17:15 04/07/16 17:14 Glucose (Glucose Chew Tab) 4-8 Tablets 4 Tabl... UD PRN PO 03/08/16 17:15 04/07/16 17:14 Dextrose (Dextrose 50% 50ML Syringe) 25-50ML OF 50% DW IV FOR... UD PRN IV 03/08/16 17:15 04/07/16 17:14 03/21/16 18:22 50 ML Glucagon (Glucagon Inj) 1 mg UD PRN SQ 03/08/16 17:15 04/07/16 17:14 Miscellaneous Information (Consult Glycemic Management Pharmacy) 1 ea UD PRN N/A 03/08/16 19:45 04/07/16 19:44 Atorvastatin Calcium (Lipitor Tab) 10 mg DAILY PO 03/09/16 09:00 04/08/16 08:59 03/21/16 07:57 10 MG Clopidogrel Bisulfate (plAVix TAB) 75 mg DAILY PO 03/09/16 09:00 04/08/16 08:59 Future hold 03/21/16 07:57 75 MG Fluticasone Propionate (Flonase Nasal [place]) 2 sprays DAILY RICHA 03/09/16 09:00 04/08/16 08:59 03/21/16 07:59 2 SPRAYS Levalbuterol (Xopenex Hfa Inhaler) 2 puffs Q4H PRN INH 03/08/16 17:30 04/07/16 17:29 Sertraline HCl (Zoloft Tab) 25 mg DAILY PO 03/09/16 09:00 04/08/16 08:59 03/21/16 07:57 25 MG Tamsulosin HCl (Flomax Cap) 0.4 mg DAILY PO 03/09/16 09:00 04/08/16 08:59 03/21/16 07:58 0.4 MG Miscellaneous Information (Order Awaiting Action) 1 ea QS N/A 03/08/16 19:45 04/07/16 19:44 Amylase/Lipase/ Protease (Pancreaze (Lipase 10,500U) Cap) 2 cap TIDM PO 03/09/16 07:15 04/08/16 07:29 03/21/16 07:56 2 CAP Amylase/Lipase/ Protease (Pancreaze (Lipase 10,500U) Cap) 1-2 CAPS WITH SNACKS UD PRN PO 03/08/16 19:45 04/07/16 19:44 Docusate Sodium (coLACE CAP) 100 mg BID PO 03/10/16 18:00 04/09/16 17:59 03/21/16 07:57 100 MG Polyethylene (Miralax Powder Packet) 17 gm Q6H PRN PO 03/10/16 21:15 04/09/16 21:14 03/13/16 10:48 17 GM Pantoprazole Sodium (Protonix Tab) 40 mg QAM PO 03/12/16 09:00 04/11/16 08:59 03/21/16 07:58 40 MG Acetaminophen/ Codeine Phosphate (Tylenol w/ Codeine #3 Tab) 1 tab for pain scale 4-6 2 t... Q4H PRN PO 03/12/16 09:30 04/11/16 09:29 03/20/16 21:03 2 TAB Acetaminophen (Tylenol Tab) 650 mg Q4H PRN PO 03/12/16 09:30 04/11/16 09:29 03/20/16 22:59 650 MG Warfarin Sodium (Coumadin Tab) 2.5 mg DAILY@16 PO 03/13/16 16:00 04/12/16 15:59 Future Hold 03/15/16 16:39 2.5 MG Ondansetron HCl (Zofran Inj) 4 mg Q4H PRN IV 03/14/16 08:45 04/13/16 08:44 03/16/16 16:05 4 MG Amiodarone HCl 200 mg 200 mg BIDM PO 03/14/16 16:30 04/13/16 16:29 03/21/16 07:58 200 MG Dopamine HCl/ Dextrose (DOPamine 400MG / D5W) 250 ml @ 0 mls/hr Q0M PRN IV 03/15/16 09:45 04/14/16 09:44 03/21/16 05:34 6.6 MLS/HR Bisacodyl (Dulcolax Supp) 10 mg DAILY PRN SD 03/16/16 09:45 04/15/16 09:44 03/17/16 10:10 10 MG Polyethylene (Miralax Powder Packet) 17 gm BID PO 03/17/16 09:00 04/16/16 08:59 03/21/16 21:12 17 GM Vancomycin HCl (Consult) 1 ea UD PRN N/A 03/19/16 07:30 04/18/16 07:29 Cefepime HCl 1 ea 1 ea UD PRN N/A 03/19/16 10:15 04/18/16 10:14 Cefepime HCl/ Dextrose (Maxipime IV/D5 100ml) 105.65 ml @ 200 mls/ hr Q24H IV 03/20/16 20:00 03/29/16 19:59 03/21/16 19:41 200 MLS/HR Calcitriol (Rocaltrol Cap) 0.25 mcg MoWeFr@0900 PO 03/21/16 09:00 04/20/16 08:59 03/21/16 07:58 0.25 MCG Levofloxacin 1 ea 1 ea UD PRN N/A 03/19/16 20:00 04/18/16 19:59 Norepinephrine Bitartrate/ Dextrose (Levophed Inj/ D5W 500ml) 508 ml @ 0 mls/hr Q0M PRN IV 03/21/16 10:45 04/20/16 10:44 03/21/16 23:59 53.4 MLS/HR Insulin Aspart (novoLOG ASPART) SLIDING SCALE G... Q6 SC 03/21/16 18:00 04/20/16 17:59 03/22/16 05:49 2 UNITS Enteral Nutritional Formula (Novasource Renal) 1,000 ml 20 ML/HR PO 03/21/16 17:30 04/20/16 17:29 03/21/16 18:23 1,000 ML Last 24 Hours Test 03/21/16 06:18 03/21/16 11:05 03/22/16 05:42 Bedside Glucose 135 mg/dl Bedside Glucose (other) 92 mg/dl White Blood Count 13.63 K/uL Red Blood Count 3.11 M/uL Hemoglobin 9.3 g/dL Hematocrit 26.3 % Mean Corpuscular Volume 84.6 fL Mean Corpuscular Hemoglobin 29.9 pg Mean Corpuscular Hemoglobin Concent 35.4 g/dl RDW Standard Deviation 55.1 fL RDW Coefficient of Variation 17.6 % Platelet Count 171 K/uL Mean Platelet Volume 9.4 fL Assessment & Plan regis/atn with multiple insults to the kidney. was hoping he would eventually recover but appears to be clinically worsening throughout the hospitilization. recommending initiation of dialysis to help with mental status and optimize electrolytes. given the pressors and ectopy, was treating conservatively but now with the decrease in mental status, the benefits outweigh the risks. unable to remove fluid with the pt on pressors but would like to remove toxins. will discuss further with critical care about placement of temporary dialysis catheter. inr 1.7 yesterday. .
[2016-03-22 06:36] LABS: BUN/CREATININE RATIO 12.1 (10-20); CALCIUM 7.7 mg/dl (8.5-10.1); CREATININE 6.7 mg/dl (0.60-1.40); POTASSIUM 3.9 mmol/L (3.5-5.1)
[2016-03-22] MEDS: AMIODARONE 200 MG TAB PO SCH ×2 (10:39→16:49)
[2016-03-22] MEDS: DOCUSATE SODIUM 100 MG CAP PO SCH (10:40)
[2016-03-22] MEDS: PANCREAZE (LIPASE 10,500U) CAP PO SCH ×3 (10:40→16:09)
[2016-03-22] MEDS: FLUTICASONE PROPIONATE NA SPR 16 GM BTL NAE SCH (10:40)
[2016-03-22] MEDS: TAMSULOSIN HCL 0.4 MG CAP PO SCH (10:41)
[2016-03-22] MEDS: POLYETHYLENE (MIRALAX) 17 GM PACK PO SCH ×2 (10:41→16:52)
[2016-03-22] MEDS: ATORVASTATIN 10 MG TAB PO SCH (10:42)
[2016-03-22] MEDS: SERTRALINE HCL 50 MG TAB PO SCH (10:42)
[2016-03-22] MEDS: PANTOprazole SOD 40 MG TAB PO SCH (10:42)
[2016-03-22] MEDS: CLOPIDOGREL BISULFATE 75 MG TAB PO SCH (10:42)
--- NOTE | 2016-03-22 11:03 | Critical Care Progress Note ---
Critical Care Progress Note Date of Service Mar 22, 2016. Attending Dr. [place] Subjective Appears more confused today. Remains on Levophed Objective Date Time Temp Pulse Resp B/P Pulse Ox O2 Delivery O2 Flow Rate FiO2 03/21/16 09:00 97 13 105/56 97 Room Air 03/21/16 08:29 104 14 105/64 95 Room Air 03/21/16 08:00 Room Air 03/21/16 07:59 36.7 111 15 118/59 95 Room Air 03/21/16 07:29 96 13 106/33 91 Room Air 03/21/16 06:00 93 18 100/68 93 Room Air 03/21/16 04:00 36.8 83 14 97/43 94 Room Air 03/21/16 04:00 94 Room Air 03/21/16 02:00 99 19 117/49 96 Room Air 03/21/16 00:00 99 12 93/53 96 Room Air 03/20/16 23:59 96 Room Air 03/20/16 22:00 96 17 105/52 93 Room Air 03/20/16 20:00 95 Room Air 03/20/16 20:00 36.8 105 15 104/60 93 Room Air 03/20/16 18:00 95 20 90/58 93 Room Air 03/20/16 16:00 Room Air 03/20/16 16:00 36.9 84 17 87/40 97 Room Air 03/20/16 15:29 99 17 98/40 94 Room Air 03/20/16 15:11 89 15 95/41 03/20/16 15:08 94 22 87/53 03/20/16 15:05 89 23 108/51 03/20/16 14:59 103 17 117/65 03/20/16 14:29 90 18 109/59 94 Room Air 03/20/16 13:59 83 16 89/42 92 Room Air 03/20/16 12:59 85 15 93/50 96 Room Air 03/20/16 12:29 89 16 98/61 94 Room Air TYPESETTING SUPERVISOR: AAOx 3 but lethargic. No focal deficit HEENT: PERRL. Throat is clean, no thrush Pupils: Equal round reactive, Focal Signs: None Respiratory: Scattered rhonchi bilaterally Cardiovascular: S1-S2 occasional extrasystoles no murmurs rubs gallops Rhythm: paced Abdomen: Soft, non-tender, non-distended Ext: Anasarca, more pronounced in the upper extremities 24-Hour Column 03/21/16 08:00 Intake Total 1519 ml Output Total 875 ml Balance 644 ml Assessment & Plan 80 year-old male with advanced cardiomyopathy, s/p PPM/Bi-V ICD. Now with Pseudomonas bacteremia, PICC removed. Worsening renal failure A-fib H/o pancreatic CA, s/p Whipple DM H/o CVA Plan: TYPESETTING SUPERVISOR: Monitor mental status, most likely uremia plays a role in his confusion Will start HD today CVS: Continue Levophed as an inopressor. S/p Bi-V ICD on 03/12/16 Continue Plavix. Warfarin on hold for now. Resume when ok with cardiology given pocket hematoma Continue Amiodarone Pulmonary: Stable for now Elevate head ID: Pseudomonas sensitivities reviewed. Abx tailored to Cefepime for now. Repeat blood cultures from 03/20 negative to date PICC removed Renal/Metabolic: Initiate HD today Monitor creatinine and urine output. Will insert a femoral HD catheter GI: S/p NGT, failed swallow eval Heme: To eventually resume anticoagulation Platelets recovered Endo: Good glycemic control for now I discussed his care with his extensively at bedside She had an opportunity to ask questions. DVT prophylaxis: ICDs Critical care time 35 minutes. Data Medications: Current Inpatient Medications Medications (Trade) Dose Ordered Sig/Quoc Route Start Time Stop Time Status Last Admin Dose Admin Nitroglycerin (Nitrostat Tab) 0.4 mg UD PRN SL 03/08/16 17:00 04/07/16 16:59 03/14/16 08:34 0.4 MG Glucose (Glucose 40% Gel) 15-30 GRAMS 15 GRAMS... UD PRN PO 03/08/16 17:15 04/07/16 17:14 Glucose (Glucose Chew Tab) 4-8 Tablets 4 Tabl... UD PRN PO 03/08/16 17:15 04/07/16 17:14 Dextrose (Dextrose 50% 50ML Syringe) 25-50ML OF 50% DW IV FOR... UD PRN IV 03/08/16 17:15 04/07/16 17:14 03/21/16 18:22 50 ML Glucagon (Glucagon Inj) 1 mg UD PRN SQ 03/08/16 17:15 04/07/16 17:14 Miscellaneous Information (Consult Glycemic Management Pharmacy) 1 ea UD PRN N/A 03/08/16 19:45 04/07/16 19:44 Atorvastatin Calcium (Lipitor Tab) 10 mg DAILY PO 03/09/16 09:00 04/08/16 08:59 03/22/16 10:42 10 MG Clopidogrel Bisulfate (plAVix TAB) 75 mg DAILY PO 03/09/16 09:00 04/08/16 08:59 Future hold 03/22/16 10:42 75 MG Fluticasone Propionate (Flonase Nasal [place]) 2 sprays DAILY RICHA 03/09/16 09:00 04/08/16 08:59 03/22/16 10:40 2 SPRAYS Levalbuterol (Xopenex Hfa Inhaler) 2 puffs Q4H PRN INH 03/08/16 17:30 04/07/16 17:29 Sertraline HCl (Zoloft Tab) 25 mg DAILY PO 03/09/16 09:00 04/08/16 08:59 03/22/16 10:42 25 MG Tamsulosin HCl (Flomax Cap) 0.4 mg DAILY PO 03/09/16 09:00 04/08/16 08:59 03/21/16 07:58 0.4 MG Miscellaneous Information (Order Awaiting Action) 1 ea QS N/A 03/08/16 19:45 04/07/16 19:44 Amylase/Lipase/ Protease (Pancreaze (Lipase 10,500U) Cap) 2 cap TIDM PO 03/09/16 07:15 04/08/16 07:29 03/22/16 10:40 2 CAP Amylase/Lipase/ Protease (Pancreaze (Lipase 10,500U) Cap) 1-2 CAPS WITH SNACKS UD PRN PO 03/08/16 19:45 04/07/16 19:44 Docusate Sodium (coLACE CAP) 100 mg BID PO 03/10/16 18:00 04/09/16 17:59 03/21/16 07:57 100 MG Polyethylene (Miralax Powder Packet) 17 gm Q6H PRN PO 03/10/16 21:15 04/09/16 21:14 03/13/16 10:48 17 GM Pantoprazole Sodium (Protonix Tab) 40 mg QAM PO 03/12/16 09:00 04/11/16 08:59 03/21/16 07:58 40 MG Acetaminophen/ Codeine Phosphate (Tylenol w/ Codeine #3 Tab) 1 tab for pain scale 4-6 2 t... Q4H PRN PO 03/12/16 09:30 04/11/16 09:29 03/20/16 21:03 2 TAB Acetaminophen (Tylenol Tab) 650 mg Q4H PRN PO 03/12/16 09:30 04/11/16 09:29 03/20/16 22:59 650 MG Warfarin Sodium (Coumadin Tab) 2.5 mg DAILY@16 PO 03/13/16 16:00 04/12/16 15:59 Future Hold 03/15/16 16:39 2.5 MG Ondansetron HCl (Zofran Inj) 4 mg Q4H PRN IV 03/14/16 08:45 04/13/16 08:44 03/16/16 16:05 4 MG Amiodarone HCl 200 mg 200 mg BIDM PO 03/14/16 16:30 04/13/16 16:29 03/22/16 10:39 200 MG Dopamine HCl/ Dextrose (DOPamine 400MG / D5W) 250 ml @ 0 mls/hr Q0M PRN IV 03/15/16 09:45 04/14/16 09:44 03/21/16 05:34 6.6 MLS/HR Bisacodyl (Dulcolax Supp) [address] 03/16/16 09:45 04/15/16 09:44 03/17/16 10:10 10 MG Polyethylene (Miralax Powder Packet) 17 gm BID PO 03/17/16 09:00 04/16/16 08:59 03/22/16 10:41 17 GM Cefepime HCl 1 ea 1 ea UD PRN N/A 03/19/16 10:15 04/18/16 10:14 Cefepime HCl/ Dextrose (Maxipime IV/D5 100ml) 105.65 ml @ 200 mls/ hr Q24H IV 03/20/16 20:00 03/29/16 19:59 03/21/16 19:41 200 MLS/HR Calcitriol 0.25 mcg 0.25 mcg MoWeFr@0900 PO 03/21/16 09:00 04/20/16 08:59 03/21/16 07:58 0.25 MCG Norepinephrine Bitartrate/ Dextrose (Levophed Inj/ D5W 500ml) 508 ml @ 0 mls/hr Q0M PRN IV 03/21/16 10:45 04/20/16 10:44 03/21/16 23:59 53.4 MLS/HR Insulin Aspart (novoLOG ASPART) SLIDING SCALE G... Q6 SC 03/21/16 18:00 04/20/16 17:59 03/22/16 05:49 2 UNITS Enteral Nutritional Formula (Novasource Renal) 1,000 ml 20 ML/HR PO 03/21/16 17:30 04/20/16 17:29 03/21/16 18:23 1,000 ML I & O: 24-Hour Column 03/22/16 08:00 Intake Total 1590 ml Output Total 720 ml Balance 870 ml Vital Signs: Date Time Temp Pulse Resp B/P Pulse Ox O2 Delivery O2 Flow Rate FiO2 03/22/16 06:14 100 21 100/55 98 03/22/16 05:59 88 8 89/43 98 03/22/16 05:44 88 13 95/58 98 03/22/16 05:29 93 11 100/57 99 03/22/16 04:59 87 13 95/44 98 03/22/16 04:29 90 14 86/48 97 03/22/16 04:00 Room Air 03/22/16 03:59 36.6 103 16 101/67 98 Room Air 03/22/16 03:29 104 18 118/45 98 03/22/16 02:59 92 16 97/60 98 03/22/16 02:29 102 15 98/50 100 03/22/16 01:59 111 16 96/56 97 03/22/16 01:29 98 17 119/55 100 03/22/16 00:59 103 13 99/57 99 03/22/16 00:29 103 17 91/61 99 03/22/16 00:01 Room Air 03/21/16 23:59 36.8 102 15 108/51 99 Room Air 03/21/16 23:48 95 20 98/55 98 03/21/16 23:29 82 16 85/57 99 03/21/16 22:59 90 22 91/53 97 03/21/16 22:29 102 14 113/50 97 03/21/16 21:59 108 22 101/69 97 03/21/16 21:49 109 22 93/53 93 03/21/16 21:32 101 16 90/43 96 03/21/16 21:29 68 19 78/43 95 03/21/16 21:23 108 20 84/49 95 03/21/16 21:04 97 22 88/50 92 03/21/16 21:02 89 19 62/26 86 03/21/16 20:59 92 26 79/45 98 03/21/16 20:43 93 26 92/56 03/21/16 20:29 102 21 91/51 03/21/16 20:00 Room Air 03/21/16 19:59 36.6 92 22 116/44 100 Room Air 03/21/16 19:29 91 23 113/57 100 03/21/16 19:12 102 22 90/48 96 03/21/16 18:00 88 20 100/48 95 Room Air 03/21/16 16:00 Room Air 03/21/16 15:02 104 17 105/62 96 Room Air 03/21/16 14:29 102 18 103/53 95 Room Air 03/21/16 13:59 103 18 92/58 93 Room Air 03/21/16 13:29 109 16 102/52 96 Room Air 03/21/16 12:39 Room Air Nasal Cannula 03/21/16 12:15 36.9 89 14 101/49 97 Room Air 03/21/16 12:15 Room Air Laboratory Results: Last 24 Hours Test 03/21/16 11:05 03/22/16 05:42 Bedside Glucose (other) 92 mg/dl White Blood Count 13.63 K/uL Red Blood Count 3.11 M/uL Hemoglobin 9.3 g/dL Hematocrit 26.3 % Mean Corpuscular Volume 84.6 fL Mean Corpuscular Hemoglobin 29.9 pg Mean Corpuscular Hemoglobin Concent 35.4 g/dl RDW Standard Deviation 55.1 fL RDW Coefficient of Variation 17.6 % Platelet Count 171 K/uL Mean Platelet Volume 9.4 fL Sodium Level 134 mmol/L Potassium Level 3.9 mmol/L Chloride Level 104 mmol/L Carbon Dioxide Level 19 mmol/L Anion Gap 11.0 mmol/L Blood Urea Nitrogen 81 mg/dl Creatinine 6.70 mg/dl Est Creatinine Clear Calc Drug Dose 10.0 ml/min Estimated GFR () 8.2 Estimated GFR (Non- 7.0 BUN/Creatinine Ratio 12.1 Random Glucose 218 mg/dl Calcium Level 7.7 mg/dl Random Vancomycin Level 20.6 mcg/ml
--- NOTE | 2016-03-22 12:25 | Procedure Note ---
Procedure Note Procedure Date Mar 22, 2016. Central Line Procedure time out: side/site verified, patient ID confirmed, sterile procedure used Consent obtained: written Time of procedure: 12:00 Performed by: attending Indications: other (Hemodialysis) Prep: chlorhexadine prep, sterile drape, sterile procedures used Anesthesia: local injection, lidocaine 1% without epi Volume anesthetic (ml's): 5 Central line lumen: double (20 cm) Central line location: femoral (R) Additional details: percutaneous placement, ultrasound guidance, Selinger technique used, line sutured, good blood return Complications: none Patient tolerated procedure: well Post-procedure vital signs: reviewed and stable Comments: May proceed with hemodialysis
--- NOTE | 2016-03-22 12:25 | Progress Note ---
Internal Med Progress Note Date of Service: Mar 22, 2016. Provider Documentation: SUBJECTIVE: Patient is deteriorating clinically. Mental status: Confused, disoriented today No new cough, chest pain, nausea, vomiting, abd pain, urinary symptoms No fever spikes Has an feeding tube OBJECTIVE: Vital Signs-as noted below Exam: General-awake; disoriented x 2, no distress Eyes-EOMI; no scleral icterus HEENT- Feeding tube + Neck-no JVD; Left IJ Central line + Lungs-coarse breath sounds anteriorly Heart-irregularly irregular Abdomen-soft; NTND; nBS Extremities-2+ peripheral pulses; 1+ le edema; edema of UE- Rt > Lt Neuro-no gross focal deficits Lab data as noted below. Procedures: CT head Interval right parietal infarct. No acute intracranial findings. CT c-spine Findings of severe degenerative change combined with extensive posterior laminectomy defects. No acute process is appreciated. TTE * The study was technically limited. * The left ventricle is moderately dilated. * Left ventricular systolic function is moderate to severely reduced. * Ejection Fraction = 30-35%. * The right ventricular systolic function is normal. * There is mild mitral regurgitation. Renal ultrasound 1. there is mild hydronephrosis right kidney. 2. Several left renal cyst. 3. Complex cyst mid to lower aspect right kidney. 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 Found to have symptomatic bradycardia, sick sinus syndrome, s/p biventricular pacemaker 03/12/16. Now with sepsis (febrile, rigors, hypotensive). JOSUÉ (baseline CKD stage 3)- Deteriorating - Received albumin and IVF's with sodium bicarbonate, then intermittently diuresed with furosemide vs bumetanide given volume status - Holding torsemide and Entresto (home medications) - Renal ultrasound with mild hydronephrosis, not thought to be contributory - urine output was improving but now on decline, likely 2/2 sepsis - Nephrology-- PLAN is to start dialysis given worsening/mental status changes/ Dialysis catheter placement SEPSIS/BACTEREMIA ( PSEUDOMONAS) - Unclear source - D/D considered: Abdominal source, UTI but negative, no pneumonia, Line in situ- sent for cultures - Afebrile - IV fluid - cautious with worsening kidney function/concern for volume overload - S/P IV Dopamine drip--changed to levophed due to ventricular ectopy - Blood cx x 2- pseudomonas. Tip culture/Urine cx- negative. Repeat Blood cultures ordered - pending. - Continue with IV Cefepime per ID (To be continued x 14 days post negative repeat blood cx). Lactic acid- normal SYMPTOMATIC BRADYCARDIA S/P BIVENTRICULAR PACEMAKER AICD -03/21/16 -Echo shows small circumferential pericardial effusion -EP evaluated patient- interrogated pacemaker and reprogramed the device -On amiodarone for ectopy -Cardiology/EP following HISTORY OF NON ISCHEMIC CARDIOMYOPATHY - continue atorvastatin, clopidogrel - holding carvedilol, torsemide and Entresto given pressor requirement and JOSUÉ A FIB - Coumadin initially held for supratherapeutic INR - Coumadin then restarted post-procedure (pacemaker placement) - Coumadin back on hold for need for line placement for HD - Continued on Amiodarone DM 2 - glycemic pharmacy consulted - continue insulin therapy URINARY RETENTION - Urology consulted - barlow placed - continue tamsulosin HISTORY OF CVA - continue Plavix, Atorvastatin - Coumadin on hold in case of need for line placement HISTORY OF PANCREATIC CANCER - s/p Whipple procedure - continue Pancreaze NUTRITION/ASPIRATION + Video swallow test done 03/21/16 - aspirating liquids/solids -Swallow evaluation recommends- NPO -NG tube placed- plan is to start feeding from today DVT prophylaxis - Coumadin on hold - SCD's DISPO PT recommending acute rehab when medically stable Code status Full code as per patient Discharge planning: rehab hospital Discussed with Instructor Physical/ by bedside. PROGNOSIS: Guarded Vital Signs: Date Time Temp Pulse Resp B/P Pulse Ox O2 Delivery O2 Flow Rate FiO2 03/22/16 11:29 36.4 96 14 118/48 100 Nasal Cannula 2.0 03/22/16 10:59 103 21 100/62 99 Nasal Cannula 2.0 03/22/16 09:59 95 13 86/53 100 Nasal Cannula 2.0 03/22/16 09:29 93 14 118/47 03/22/16 08:59 89 23 86/51 100 Nasal Cannula 2.0 03/22/16 08:29 98 17 93/45 100 Nasal Cannula 2.0 03/22/16 08:00 Room Air Nasal Cannula 03/22/16 07:59 36.8 100 17 82/45 99 Nasal Cannula 2.0 03/22/16 07:29 83 15 90/61 98 03/22/16 06:59 95 12 95/55 97 03/22/16 06:14 100 21 100/55 98 03/22/16 05:59 88 8 89/43 98 03/22/16 05:44 88 13 95/58 98 03/22/16 05:29 93 11 100/57 99 03/22/16 04:59 87 13 95/44 98 03/22/16 04:29 90 14 86/48 97 03/22/16 04:00 Room Air 03/22/16 03:59 36.6 103 16 101/67 98 Room Air 03/22/16 03:29 104 18 118/45 98 03/22/16 02:59 92 16 97/60 98 03/22/16 02:29 102 15 98/50 100 03/22/16 01:59 111 16 96/56 97 03/22/16 01:29 98 17 119/55 100 03/22/16 00:59 103 13 99/57 99 03/22/16 00:29 103 17 91/61 99 03/22/16 00:01 Room Air 03/21/16 23:59 36.8 102 15 108/51 99 Room Air 03/21/16 23:48 95 20 98/55 98 03/21/16 23:29 82 16 85/57 99 03/21/16 22:59 90 22 91/53 97 03/21/16 22:29 102 14 113/50 97 03/21/16 21:59 108 22 101/69 97 03/21/16 21:49 109 22 93/53 93 03/21/16 21:32 101 16 90/43 96 03/21/16 21:29 68 19 78/43 95 03/21/16 21:23 108 20 84/49 95 03/21/16 21:04 97 22 88/50 92 03/21/16 21:02 89 19 62/26 86 03/21/16 20:59 92 26 79/45 98 03/21/16 20:43 93 26 92/56 03/21/16 20:29 102 21 91/51 03/21/16 20:00 Room Air 03/21/16 19:59 36.6 92 22 116/44 100 Room Air 03/21/16 19:29 91 23 113/57 100 03/21/16 19:12 102 22 90/48 96 03/21/16 18:00 88 20 100/48 95 Room Air 03/21/16 16:00 Room Air 03/21/16 15:02 104 17 105/62 96 Room Air 03/21/16 14:29 102 18 103/53 95 Room Air 03/21/16 13:59 103 18 92/58 93 Room Air 03/21/16 13:29 109 16 102/52 96 Room Air 03/21/16 12:39 Room Air Nasal Cannula Lab Results: Results Past 24 Hours Test 03/22/16 05:42 03/22/16 11:03 Range/Units White Blood Count 13.63 4.8-10.8 K/uL Red Blood Count 3.11 4.7-6.1 M/uL Hemoglobin 9.3 14.0-18.0 g/dL Hematocrit 26.3 42-52 % Mean Corpuscular Volume 84.6 80-100 fL Mean Corpuscular Hemoglobin 29.9 25-34 pg Mean Corpuscular Hemoglobin Concent 35.4 32-36 g/dl RDW Standard Deviation 55.1 36.4-46.3 fL RDW Coefficient of Variation 17.6 11.5-14.5 % Platelet Count 171 130-400 K/uL Mean Platelet Volume 9.4 7.4-10.4 fL Sodium Level 134 136-145 mmol/L Potassium Level 3.9 3.5-5.1 mmol/L Chloride Level 104 98-107 mmol/L Carbon Dioxide Level 19 21-32 mmol/L Anion Gap 11.0 3-11 mmol/L Blood Urea Nitrogen 81 7-18 mg/dl Creatinine 6.70 0.60-1.40 mg/dl Est Creatinine Clear Calc Drug Dose 10.0 ml/min Estimated GFR () 8.2 Estimated GFR (Non- 7.0 BUN/Creatinine Ratio 12.1 10-20 Random Glucose 218 70-99 mg/dl Calcium Level 7.7 8.5-10.1 mg/dl Random Vancomycin Level 20.6 mcg/ml Bedside Glucose 216 70-99 mg/dl
--- NOTE | 2016-03-22 13:37 | Cardiology Follow-Up ---
Subjective General Date of Service: Mar 22, 2016. Chief Complaint: follow-up shortness of breath, congestive heart failure Pt evaluation today including: conversation w/ patient, conversation w/ family , physical exam, chart review, lab review, review of studies, review of inpatient medication list History of Present Illness The patient is a 80 year old male seen in follow up. More confused today. No recurrent CP. Dopamine transitioned to levaphed. No significant change in PVC's on monitor. Creatinine and edema unchanged. Dialysis catheter in place. Plan for HD today. Allergies Coded Allergies: Lisinopril (Verified Allergy, Unknown, RASH, 06/24/15) Spironolactone (Verified Allergy, Unknown, unkn, 06/24/15) Zolpidem (Verified Adverse Reaction, Unknown, HALLUCINATIONS, 06/24/15) Social History Smoking Status: Former Smoker Hx Tobacco Use In Past Year?: No Hx Alcohol Use - Type And Amou: No Hx Substance Use - Type And Am: No Problem List Medical Problems: (1) Acute bronchitis Status: Acute (2) Chronic renal disease Status: Acute (3) Elevated troponin Status: Acute (4) Influenza Status: Acute (5) Systolic congestive heart failure Status: Acute Review of Systems Respiratory: No cough, No hemoptysis, No shortness of breath, No sputum, No wheezing Cardiac: + edema, No chest pain, No orthopnea Physical Exam Vital Signs Last Vital Signs Documentation Date Time Temp Pulse Resp B/P Pulse Ox O2 Delivery O2 Flow Rate FiO2 03/22/16 12:00 Nasal Cannula 2.0 03/22/16 11:29 36.4 96 14 118/48 100 Physical Exam Constitutional: Level of Distress: NAD, chronically ill Psychiatric: Mental Status: active & alert Head: normocephalic Eyes: EOM: EOMI ENMT: normal ENT inspection, hearing grossly normal Neck: supple, no masses Lungs: Respiratory effort: good air movement Auscultation: no wheezing, decreased breath sounds Cardiovascular: Heart Auscultation: no murmurs, no rubs, no gallops, irregular rate rhythm Peripheral Pulses: Bruits: none appreciated Abdomen: Bowel Sounds: normal Inspection & Palpation: soft, no tenderness, guarding & rebound, no masses Musculoskeletal: normal strength (5/5 throughout) Extremities: edema (anasarca ) Neurologic: Gait & Station: pertinent finding (No focal motor deficit) Cranial Nerves: grossly intact Assessment and Plan Assessment and Plan FINAL IMPRESSION: 1. Pseudomonas bacteremia / sepsis - no vegetation on TTE - catheter tip culture negative 2. Small circumferential pericardial effusion - likely uremic 3. TTE evidence of elevated RA pressure 4. 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 5. Chronic atrial fibrillation with frequent premature ventricular contractions -- borderline rate control. 6. Chronic systolic heart failure and cardiorenal syndrome with ejection fraction of 30-35% -volume overloaded. 7. 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 8. Acute kidney injury on chronic kidney disease. -creatinine up to 6.7 9. Underlying chronic obstructive pulmonary disease. PLAN AND RECOMMENDATIONS: Appreciate EP input. Coumadin on hold. Continue plavix, amiodarone, and atorvastatin. HD today as per nephrology. Antibiotics per ID. Laboratory Results Last 24 Hours Test 03/22/16 05:42 03/22/16 11:03 White Blood Count 13.63 K/uL Red Blood Count 3.11 M/uL Hemoglobin 9.3 g/dL Hematocrit 26.3 % Mean Corpuscular Volume 84.6 fL Mean Corpuscular Hemoglobin 29.9 pg Mean Corpuscular Hemoglobin Concent 35.4 g/dl RDW Standard Deviation 55.1 fL RDW Coefficient of Variation 17.6 % Platelet Count 171 K/uL Mean Platelet Volume 9.4 fL Sodium Level 134 mmol/L Potassium Level 3.9 mmol/L Chloride Level 104 mmol/L Carbon Dioxide Level 19 mmol/L Anion Gap 11.0 mmol/L Blood Urea Nitrogen 81 mg/dl Creatinine 6.70 mg/dl Est Creatinine Clear Calc Drug Dose 10.0 ml/min Estimated GFR () 8.2 Estimated GFR (Non- 7.0 BUN/Creatinine Ratio 12.1 Random Glucose 218 mg/dl Calcium Level 7.7 mg/dl Random Vancomycin Level 20.6 mcg/ml Bedside Glucose 216 mg/dl
--- NOTE | 2016-03-22 15:11 | Progress Note ---
Subjective Date of Service: Mar 22, 2016. Subjective repeat cultures negative, tolerating cefepime, for HD. afebrile. wbc improving. cath tip and urine culture negative. Problem List Medical Problems: (1) Acute bronchitis Status: Acute (2) Chronic renal disease Status: Acute (3) Elevated troponin Status: Acute (4) Influenza Status: Acute (5) Systolic congestive heart failure Status: Acute Objective Vital Signs Date Time Temp Pulse Resp B/P Pulse Ox O2 Delivery O2 Flow Rate FiO2 03/22/16 14:45 103 108/56 03/22/16 14:30 106 110/64 03/22/16 14:15 102 116/55 03/22/16 14:00 113 121/64 03/22/16 13:45 107 113/55 03/22/16 13:30 104 107/61 03/22/16 13:30 100 20 100/54 100 Nasal Cannula 2.0 03/22/16 13:15 105 110/59 03/22/16 13:00 109 106/69 03/22/16 12:58 86 16 98/43 99 Nasal Cannula 2.0 03/22/16 12:45 36.6 93 111/58 03/22/16 12:29 98 17 87/63 100 Nasal Cannula 2.0 03/22/16 12:00 Nasal Cannula 2.0 03/22/16 11:59 97 13 98/53 100 Nasal Cannula 2.0 03/22/16 11:29 36.4 96 14 118/48 100 Nasal Cannula 2.0 03/22/16 10:59 103 21 100/62 99 Nasal Cannula 2.0 03/22/16 09:59 95 13 86/53 100 Nasal Cannula 2.0 03/22/16 09:29 93 14 118/47 03/22/16 08:59 89 23 86/51 100 Nasal Cannula 2.0 03/22/16 08:29 98 17 93/45 100 Nasal Cannula 2.0 03/22/16 08:00 Room Air Nasal Cannula 03/22/16 08:00 Nasal Cannula 2.0 03/22/16 07:59 36.8 100 17 82/45 99 Nasal Cannula 2.0 03/22/16 07:29 83 15 90/61 98 03/22/16 06:59 95 12 95/55 97 03/22/16 06:14 100 21 100/55 98 03/22/16 05:59 88 8 89/43 98 03/22/16 05:44 88 13 95/58 98 03/22/16 05:29 93 11 100/57 99 03/22/16 04:59 87 13 95/44 98 03/22/16 04:29 90 14 86/48 97 03/22/16 04:00 Room Air 03/22/16 03:59 36.6 103 16 101/67 98 Room Air 03/22/16 03:29 104 18 118/45 98 03/22/16 02:59 92 16 97/60 98 03/22/16 02:29 102 15 98/50 100 03/22/16 01:59 111 16 96/56 97 03/22/16 01:29 98 17 119/55 100 03/22/16 00:59 103 13 99/57 99 03/22/16 00:29 103 17 91/61 99 03/22/16 00:01 Room Air 03/21/16 23:59 36.8 102 15 108/51 99 Room Air 03/21/16 23:48 95 20 98/55 98 03/21/16 23:29 82 16 85/57 99 03/21/16 22:59 90 22 91/53 97 03/21/16 22:29 102 14 113/50 97 03/21/16 21:59 108 22 101/69 97 03/21/16 21:49 109 22 93/53 93 03/21/16 21:32 101 16 90/43 96 03/21/16 21:29 68 19 78/43 95 03/21/16 21:23 108 20 84/49 95 03/21/16 21:04 97 22 88/50 92 03/21/16 21:02 89 19 62/26 86 03/21/16 20:59 92 26 79/45 98 03/21/16 20:43 93 26 92/56 03/21/16 20:29 102 21 91/51 03/21/16 20:00 Room Air 03/21/16 19:59 36.6 92 22 116/44 100 Room Air 03/21/16 19:29 91 23 113/57 100 03/21/16 19:12 102 22 90/48 96 03/21/16 18:00 88 20 100/48 95 Room Air 03/21/16 16:00 Room Air Laboratory Results Item Value Date Time Catheter Tip Culture - Final Complete 03/19/16 0000 Catheter Tip Picc Line NO GROWTH Urine Culture - Final Complete 03/19/16 0000 Urine,Catheterized NO GROWTH - LESS THAN 1,000 COLONIES/ML Blood Culture - Preliminary Resulted 03/19/16 0712 Blood Pseudomonas Aeruginosa Blood Culture - Final Complete 03/19/16 0720 Blood Pseudomonas Aeruginosa Blood Culture - Preliminary Resulted 03/20/16 1336 Blood NO GROWTH TO DATE. Blood Culture - Preliminary Resulted 03/20/16 1345 Blood NO GROWTH TO DATE. Last 24 Hours Test 03/21/16 18:13 03/21/16 18:43 03/21/16 22:07 03/21/16 23:50 Bedside Glucose (other) 60 mg/dl 140 mg/dl 232 mg/dl 231 mg/dl Test 03/22/16 05:42 03/22/16 05:45 03/22/16 11:03 White Blood Count 13.63 K/uL Red Blood Count 3.11 M/uL Hemoglobin 9.3 g/dL Hematocrit 26.3 % Mean Corpuscular Volume 84.6 fL Mean Corpuscular Hemoglobin 29.9 pg Mean Corpuscular Hemoglobin Concent 35.4 g/dl RDW Standard Deviation 55.1 fL RDW Coefficient of Variation 17.6 % Platelet Count 171 K/uL Mean Platelet Volume 9.4 fL Sodium Level 134 mmol/L Potassium Level 3.9 mmol/L Chloride Level 104 mmol/L Carbon Dioxide Level 19 mmol/L Anion Gap 11.0 mmol/L Blood Urea Nitrogen 81 mg/dl Creatinine 6.70 mg/dl Est Creatinine Clear Calc Drug Dose 10.0 ml/min Estimated GFR () 8.2 Estimated GFR (Non- 7.0 BUN/Creatinine Ratio 12.1 Random Glucose 218 mg/dl Calcium Level 7.7 mg/dl Random Vancomycin Level 20.6 mcg/ml Bedside Glucose (other) 223 mg/dl Bedside Glucose 216 mg/dl Assessment and Plan (1) Pseudomonas septicemia Assessment & Plan: continue cefepime, will stop levaquin, especially with pt being on amio as well. He will likely need 14 days from first negative, 03/20 cultures pending. ? source, cath tip negative, urine culture negative, echo without veg. continue supportive care. Discharge planning: rehab hospital
[2016-03-22] MEDS: DOCUSATE SODIUM 100 MG/10 ML UDC PO SCH (16:52)
[2016-03-22] MEDS: CEFEPIME IV 500 MG in DEXTROSE 5% 100ML 100 ML IV SCH (20:13)
[2016-03-23] VITALS (42 sets, daily range): BP systolic 94–136; BP diastolic 41–81; PULSE 78–114; TEMP 36.8–37; O2SAT 90–99
[2016-03-23 06:12] LABS: BASO % 0.2 %; BASO ABS # 0.02 K/uL (0-0.2); EOS % 6.3 %; HEMATOCRIT 25.7 % (42-52); IG% 2.7 %; LYMPH % 14.8 %; LYMPH ABS # 1.22 K/uL (1.2-3.4); MEAN CELL VOLUME 85.1 fL (80-100); MEAN CORPUSCULAR HEMOGLOBIN 28.5 pg (25-34); MEAN CORPUSCULAR HGB CONC 33.5 g/dl (32-36); MEAN PLATELET VOLUME 10.1 fL (7.4-10.4); PLATELET COUNT 177 K/uL (130-400); RED BLOOD COUNT 3.02 M/uL (4.7-6.1); WHITE BLOOD COUNT 8.24 K/uL (4.8-10.8)
[2016-03-23] MEDS: INSULIN ASPART 100 UNITS/ML 3 ML PEN SC SCH ×5 (06:17→20:34)
[2016-03-23 06:34] LABS: INR 2.1 (0.9-1.1); PARTIAL THROMBOPLASTIN RATIO 1.7; PROTHROMBIN TIME (PATIENT) 22.7 SECONDS (9.0-12.0)
[2016-03-23 06:49] LABS: ALB/GLOB RATIO 0.7 (0.9-2); ALKALINE PHOSPHATASE 172 U/L (45-117); ALT/SGPT < 6 U/L (12-78); AST/SGOT 12 U/L (15-37); BLOOD UREA NITROGEN 63 mg/dl (7-18); BUN/CREATININE RATIO 11.8 (10-20); CALCIUM 7.3 mg/dl (8.5-10.1); CARBON DIOXIDE 22 mmol/L (21-32); CHLORIDE 103 mmol/L (98-107); GLUCOSE 212 mg/dl (70-99); MAGNESIUM 2.1 mg/dl (1.8-2.4); PHOSPHORUS 4.4 mg/dl (2.5-4.9); POTASSIUM 3.6 mmol/L (3.5-5.1); SODIUM 136 mmol/L (136-145)
[2016-03-23 06:54] LABS: COMPLETE YES
--- NOTE | 2016-03-23 07:02 | DIAGNOSTIC IMAGING REPORT ---
CHEST ONE VIEW PORTABLE CLINICAL HISTORY: Shortness of breath COMPARISON STUDY: 03/19/2016 FINDINGS: The heart is enlarged. There is a left subclavian pacer/defibrillator present. There is a left internal jugular central venous catheter. There is mild central pulmonary vascular congestion. There is no lobar consolidation. There is blunting of the lateral costophrenic angles.[ There is a feeding tube within the stomach. IMPRESSION: Cardiomegaly and mild pulmonary vascular congestion. No evidence of focal pulmonary consolidation Electronically signed by: Mohsen Dobbs M.D. 03/23/2016 7:00 AM
--- NOTE | 2016-03-23 07:03 | Nephrology Progress Note ---
Nephrology Progress Note Date of Service: Mar 23, 2016. Subjective 80 yo male with regis/atn who is requiring pressors, continues to be intermittently confused. had temporary catheter placed yesterday and underwent a short two hour treatment. weight is down a kilo although no uf done on dialysis secondary to pressors. dialyzing for clearance. urine output 225 from 3 to 11 and 275 from 11 to 7. Objective Date Time Temp Pulse Resp B/P Pulse Ox O2 Delivery O2 Flow Rate FiO2 03/23/16 04:00 Room Air 03/23/16 04:00 107 14 117/49 94 Room Air 03/23/16 02:00 90 18 110/55 95 03/23/16 00:01 36.8 102 14 106/69 96 Room Air 03/23/16 00:01 Room Air 03/22/16 22:00 36.6 93 16 104/63 93 Room Air 03/22/16 20:00 37.0 88 15 83/47 92 Room Air 03/22/16 20:00 Room Air 03/22/16 19:59 102 13 83/47 95 03/22/16 19:29 84 14 93/62 90 03/22/16 19:05 94 15 111/46 91 03/22/16 17:59 97 17 120/55 96 Room Air 03/22/16 17:29 94 15 97/61 92 Room Air 03/22/16 16:59 96 16 92/60 94 Room Air 03/22/16 16:03 36.6 98 21 87/52 97 Room Air 03/22/16 16:00 Room Air 03/22/16 15:29 98 16 99/56 100 Nasal Cannula 2.0 03/22/16 15:19 93 16 123/60 100 Nasal Cannula 2.0 03/22/16 15:12 36.4 105 112/63 03/22/16 15:00 106 107/61 03/22/16 14:45 103 108/56 03/22/16 14:30 106 110/64 03/22/16 14:15 102 116/55 03/22/16 14:00 113 121/64 03/22/16 13:45 107 113/55 03/22/16 13:30 104 107/61 03/22/16 13:30 100 20 100/54 100 Nasal Cannula 2.0 03/22/16 13:15 105 110/59 12/22/16 13:00 109 106/69 03/22/16 12:58 86 16 98/43 99 Nasal Cannula 2.0 03/22/16 12:45 36.6 93 111/58 03/22/16 12:29 98 17 87/63 100 Nasal Cannula 2.0 03/22/16 12:00 Nasal Cannula 2.0 03/22/16 11:59 97 13 98/53 100 Nasal Cannula 2.0 03/22/16 11:29 36.4 96 14 118/48 100 Nasal Cannula 2.0 03/22/16 10:59 103 21 100/62 99 Nasal Cannula 2.0 03/22/16 09:59 95 13 86/53 100 Nasal Cannula 2.0 03/22/16 09:29 93 14 118/47 03/22/16 08:59 89 23 86/51 100 Nasal Cannula 2.0 03/22/16 08:29 98 17 93/45 100 Nasal Cannula 2.0 03/22/16 08:00 Room Air Nasal Cannula 03/22/16 08:00 Nasal Cannula 2.0 03/22/16 07:59 36.8 100 17 82/45 99 Nasal Cannula 2.0 03/22/16 07:29 83 15 90/61 98 03/22/16 06:59 95 12 95/55 97 Physical Exam: General-confused Eyes-no sceral icterus ENT-mmm, +ng tube Neck-supple Lungs-decreased breath sounds at bases Heart-irregular, tachy Abdomen-bs+ s/nt/nd Extremities-+2 to 3 pitting edema Neuro-confused Current Inpatient Medications Medications (Trade) Dose Ordered Sig/Quoc Route Start Time Stop Time Status Last Admin Dose Admin Nitroglycerin (Nitrostat Tab) 0.4 mg UD PRN SL 03/08/16 17:00 04/07/16 16:59 03/14/16 08:34 0.4 MG Glucose (Glucose 40% Gel) 15-30 GRAMS 15 GRAMS... UD PRN PO 03/08/16 17:15 04/07/16 17:14 Glucose (Glucose Chew Tab) 4-8 Tablets 4 Tabl... UD PRN PO 03/08/16 17:15 04/07/16 17:14 Dextrose (Dextrose 50% 50ML Syringe) 25-50ML OF 50% DW IV FOR... UD PRN IV 03/08/16 17:15 04/07/16 17:14 03/21/16 18:22 50 ML Glucagon (Glucagon Inj) 1 mg UD PRN SQ 03/08/16 17:15 04/07/16 17:14 Miscellaneous Information (Consult Glycemic Management Pharmacy) 1 ea UD PRN N/A 03/08/16 19:45 04/07/16 19:44 Atorvastatin Calcium (Lipitor Tab) 10 mg DAILY PO 03/09/16 09:00 04/08/16 08:59 03/22/16 10:42 10 MG Clopidogrel Bisulfate (plAVix TAB) 75 mg DAILY PO 03/09/16 09:00 04/08/16 08:59 Future hold 03/22/16 10:42 75 MG Fluticasone Propionate (Flonase Nasal [place]) 2 sprays DAILY RICHA 03/09/16 09:00 04/08/16 08:59 03/22/16 10:40 2 SPRAYS Levalbuterol (Xopenex Hfa Inhaler) 2 puffs Q4H PRN INH 03/08/16 17:30 04/07/16 17:29 Sertraline HCl (Zoloft Tab) 25 mg DAILY PO 03/09/16 09:00 04/08/16 08:59 03/22/16 10:42 25 MG Tamsulosin HCl (Flomax Cap) 0.4 mg DAILY PO 03/09/16 09:00 04/08/16 08:59 03/21/16 07:58 0.4 MG Miscellaneous Information (Order Awaiting Action) 1 ea QS N/A 03/08/16 19:45 04/07/16 19:44 Amylase/Lipase/ Protease (Pancreaze (Lipase 10,500U) Cap) 2 cap TIDM PO 03/09/16 07:15 04/08/16 07:29 03/22/16 10:40 2 CAP Amylase/Lipase/ Protease (Pancreaze (Lipase 10,500U) Cap) 1-2 CAPS WITH SNACKS UD PRN PO 03/08/16 19:45 04/07/16 19:44 Polyethylene (Miralax Powder Packet) 17 gm Q6H PRN PO 03/10/16 21:15 1/9/17 21:14 03/13/16 10:48 17 GM Acetaminophen/ Codeine Phosphate (Tylenol w/ Codeine #3 Tab) 1 tab for pain scale 4-6 2 t... Q4H PRN PO 03/12/16 09:30 04/11/16 09:29 03/20/16 21:03 2 TAB Acetaminophen (Tylenol Tab) 650 mg Q4H PRN PO 03/12/16 09:30 04/11/16 09:29 03/20/16 22:59 650 MG Warfarin Sodium (Coumadin Tab) 2.5 mg DAILY@16 PO 03/13/16 16:00 04/12/16 15:59 Future Hold 03/15/16 16:39 2.5 MG Ondansetron HCl (Zofran Inj) 4 mg Q4H PRN IV 03/14/16 08:45 04/13/16 08:44 03/16/16 16:05 4 MG Amiodarone HCl 200 mg 200 mg BIDM PO 03/14/16 16:30 04/13/16 16:29 03/22/16 16:49 200 MG Dopamine HCl/ Dextrose (DOPamine 400MG / D5W) 250 ml @ 0 mls/hr Q0M PRN IV 03/15/16 09:45 04/14/16 09:44 03/21/16 05:34 6.6 MLS/HR Bisacodyl (Dulcolax Supp) 10 mg DAILY PRN TN 03/16/16 09:45 04/15/16 09:44 03/17/16 10:10 10 MG Polyethylene (Miralax Powder Packet) 17 gm BID PO 03/17/16 09:00 04/16/16 08:59 03/22/16 16:52 17 GM Cefepime HCl 1 ea 1 ea UD PRN N/A 03/19/16 10:15 04/18/16 10:14 Cefepime HCl/ Dextrose (Maxipime IV/D5 100ml) 105.65 ml @ 200 mls/ hr Q24H IV 03/20/16 20:00 03/29/16 19:59 03/22/16 20:13 200 MLS/HR Calcitriol 0.25 mcg 0.25 mcg MoWeFr@0900 PO 03/21/16 09:00 04/20/16 08:59 03/21/16 07:58 0.25 MCG Norepinephrine Bitartrate/ Dextrose (Levophed Inj/ D5W 500ml) 508 ml @ 0 mls/hr Q0M PRN IV 03/21/16 10:45 04/20/16 10:44 03/21/16 23:59 53.4 MLS/HR Insulin Aspart (novoLOG ASPART) SLIDING SCALE G... Q6 SC 03/21/16 18:00 04/20/16 17:59 03/23/16 06:17 1 UNITS Enteral Nutritional Formula (Novasource Renal) 1,000 ml 20 ML/HR PO 03/21/16 17:30 04/20/16 17:29 03/21/16 18:23 1,000 ML Docusate Sodium (coLACE SYRUP) 100 mg BID PO 03/22/16 21:00 04/21/16 20:59 03/22/16 16:52 100 MG Lansoprazole (Prevacid Solutab) 30 mg QAM PO 03/23/16 09:00 04/22/16 08:59 Last 24 Hours Test 03/22/16 11:03 03/22/16 16:14 03/23/16 05:30 03/23/16 05:40 Bedside Glucose 216 mg/dl 205 mg/dl Prothrombin Time 22.7 SECONDS Prothromb Time International Ratio 2.1 Activated Partial Thromboplast Time 45.3 SECONDS Partial Thromboplastin Ratio 1.7 White Blood Count 8.24 K/uL Red Blood Count 3.02 M/uL Hemoglobin 8.6 g/dL Hematocrit 25.7 % Mean Corpuscular Volume 85.1 fL Mean Corpuscular Hemoglobin 28.5 pg Mean Corpuscular Hemoglobin Concent 33.5 g/dl Platelet Count 177 K/uL Mean Platelet Volume 10.1 fL Neutrophils (%) (Auto) 68.0 % Lymphocytes (%) (Auto) 14.8 % Monocytes (%) (Auto) 8.0 % Eosinophils (%) (Auto) 6.3 % Basophils (%) (Auto) 0.2 % Neutrophils # (Auto) 5.60 K/uL Lymphocytes # (Auto) 1.22 K/uL Monocytes # (Auto) 0.66 K/uL Eosinophils # (Auto) 0.52 K/uL Basophils # (Auto) 0.02 K/uL RDW Standard Deviation 54.9 fL RDW Coefficient of Variation 17.7 % Immature Granulocyte % (Auto) 2.7 % Immature Granulocyte # (Auto) 0.22 K/uL Sodium Level 136 mmol/L Potassium Level 3.6 mmol/L Chloride Level 103 mmol/L Carbon Dioxide Level 22 mmol/L Anion Gap 11.0 mmol/L Blood Urea Nitrogen 63 mg/dl Creatinine 5.20 mg/dl Est Creatinine Clear Calc Drug Dose 12.8 ml/min Estimated GFR () 11.1 Estimated GFR (Non- 9.6 BUN/Creatinine Ratio 11.8 Random Glucose 212 mg/dl Lactic Acid Level 0.8 mmol/L Calcium Level 7.3 mg/dl Phosphorus Level 4.4 mg/dl Magnesium Level 2.1 mg/dl Total Bilirubin 0.4 mg/dl Aspartate Amino Transf (AST/SGOT) 12 U/L Alanine Aminotransferase (ALT/SGPT) < 6 U/L Alkaline Phosphatase 172 U/L Total Protein 5.2 gm/dl Albumin 2.1 gm/dl Globulin 3.1 gm/dl Albumin/Globulin Ratio 0.7 Assessment & Plan regis/atn with multiple insults to the kidney. now on dialysis for clearance of toxins. requiring pressors and unable to remove fluid. will plan on a longer dialysis treatment today of 3 hours. 4k bath. hoping dialysis may help with confusion although confusion may be multifactorial. anemia-hg levels are trending down. may have element of dilution with the third spacing of fluid. ok to give dose of procrit. to check iron sat and ferritin.
[2016-03-23] MEDS: PANCREAZE (LIPASE 10,500U) CAP PO SCH ×3 (07:15→16:03)
[2016-03-23] MEDS ORDERED: EPOETIN ALFA 10,000 UNITS/ML VIAL IV. SCH (08:00)
[2016-03-23] MEDS ORDERED: EPOETIN ALFA 4000 UNITS/ML VIAL IV. SCH (08:00)
[2016-03-23] MEDS: TAMSULOSIN HCL 0.4 MG CAP PO SCH (08:11)
--- NOTE | 2016-03-23 10:36 | Progress Note ---
Subjective Date of Service: Mar 23, 2016. Subjective repeat blood cultures remain negative, tolerating cefepime, had HD yesterday, creat slightly better today. wbc nml at 8.2, all other micro negative Problem List Medical Problems: (1) Acute bronchitis Status: Acute (2) Chronic renal disease Status: Acute (3) Elevated troponin Status: Acute (4) Influenza Status: Acute (5) Systolic congestive heart failure Status: Acute Objective Vital Signs Date Time Temp Pulse Resp B/P Pulse Ox O2 Delivery O2 Flow Rate FiO2 03/23/16 10:15 109 133/55 03/23/16 10:00 90 107/81 03/23/16 09:45 102 110/56 03/23/16 09:30 103 94/61 03/23/16 09:15 83 106/62 03/23/16 09:00 105 120/56 03/23/16 08:45 110 113/81 03/23/16 08:30 113 119/58 03/23/16 08:25 37.0 99 110/50 03/23/16 04:00 Room Air 03/23/16 04:00 107 14 117/49 94 Room Air 03/23/16 02:00 90 18 110/55 95 03/23/16 00:01 36.8 102 14 106/69 96 Room Air 03/23/16 00:01 Room Air 03/22/16 22:00 36.6 93 16 104/63 93 Room Air 03/22/16 20:00 37.0 88 15 83/47 92 Room Air 03/22/16 20:00 Room Air 03/22/16 19:59 102 13 83/47 95 03/22/16 19:29 84 14 93/62 90 03/22/16 19:05 94 15 111/46 91 03/22/16 17:59 97 17 120/55 96 Room Air 03/22/16 17:29 94 15 97/61 92 Room Air 03/22/16 16:59 96 16 92/60 94 Room Air 03/22/16 16:03 36.6 98 21 87/52 97 Room Air 03/22/16 16:00 Room Air 03/22/16 15:29 98 16 99/56 100 Nasal Cannula 2.0 03/22/16 15:19 93 16 123/60 100 Nasal Cannula 2.0 03/22/16 15:12 36.4 105 112/63 03/22/16 15:00 106 107/61 03/22/16 14:45 103 108/56 03/22/16 14:30 106 110/64 03/22/16 14:15 102 116/55 03/22/16 14:00 113 121/64 03/22/16 13:45 107 113/55 03/22/16 13:30 104 107/61 03/22/16 13:30 100 20 100/54 100 Nasal Cannula 2.0 03/22/16 13:15 105 110/59 03/22/16 13:00 109 106/69 03/22/16 12:58 86 16 98/43 99 Nasal Cannula 2.0 03/22/16 12:45 36.6 93 111/58 03/22/16 12:29 98 17 87/63 100 Nasal Cannula 2.0 03/22/16 12:00 Nasal Cannula 2.0 03/22/16 11:59 97 13 98/53 100 Nasal Cannula 2.0 03/22/16 11:29 36.4 96 14 118/48 100 Nasal Cannula 2.0 03/22/16 10:59 103 21 100/62 99 Nasal Cannula 2.0 Laboratory Results Item Value Date Time Blood Culture - Preliminary Resulted 03/20/16 1345 Blood NO GROWTH TO DATE. Blood Culture - Preliminary Resulted 03/20/16 1336 Blood NO GROWTH TO DATE. Blood Culture - Final Complete 03/19/16 0720 Blood Pseudomonas Aeruginosa Blood Culture - Preliminary Resulted 03/19/16 0712 Blood Pseudomonas Aeruginosa Last 24 Hours Test 03/22/16 11:03 03/22/16 16:14 03/23/16 05:30 03/23/16 05:40 Bedside Glucose 216 mg/dl 205 mg/dl Prothrombin Time 22.7 SECONDS Prothromb Time International Ratio 2.1 Activated Partial Thromboplast Time 45.3 SECONDS Partial Thromboplastin Ratio 1.7 White Blood Count 8.24 K/uL Red Blood Count 3.02 M/uL Hemoglobin 8.6 g/dL Hematocrit 25.7 % Mean Corpuscular Volume 85.1 fL Mean Corpuscular Hemoglobin 28.5 pg Mean Corpuscular Hemoglobin Concent 33.5 g/dl Platelet Count 177 K/uL Mean Platelet Volume 10.1 fL Neutrophils (%) (Auto) 68.0 % Lymphocytes (%) (Auto) 14.8 % Monocytes (%) (Auto) 8.0 % Eosinophils (%) (Auto) 6.3 % Basophils (%) (Auto) 0.2 % Neutrophils # (Auto) 5.60 K/uL Lymphocytes # (Auto) 1.22 K/uL Monocytes # (Auto) 0.66 K/uL Eosinophils # (Auto) 0.52 K/uL Basophils # (Auto) 0.02 K/uL RDW Standard Deviation 54.9 fL RDW Coefficient of Variation 17.7 % Immature Granulocyte % (Auto) 2.7 % Immature Granulocyte # (Auto) 0.22 K/uL Red Blood Cell Morphology Unremarkable Sodium Level 136 mmol/L Potassium Level 3.6 mmol/L Chloride Level 103 mmol/L Carbon Dioxide Level 22 mmol/L Anion Gap 11.0 mmol/L Blood Urea Nitrogen 63 mg/dl Creatinine 5.20 mg/dl Est Creatinine Clear Calc Drug Dose 12.8 ml/min Estimated GFR () 11.1 Estimated GFR (Non- 9.6 BUN/Creatinine Ratio 11.8 Random Glucose 212 mg/dl Lactic Acid Level 0.8 mmol/L Calcium Level 7.3 mg/dl Phosphorus Level 4.4 mg/dl Magnesium Level 2.1 mg/dl Total Bilirubin 0.4 mg/dl Aspartate Amino Transf (AST/SGOT) 12 U/L Alanine Aminotransferase (ALT/SGPT) < 6 U/L Alkaline Phosphatase 172 U/L Total Protein 5.2 gm/dl Albumin 2.1 gm/dl Globulin 3.1 gm/dl Albumin/Globulin Ratio 0.7 Test 03/23/16 07:59 Random Cortisol 15.88 mcg/dl Assessment and Plan (1) Pseudomonas septicemia Assessment & Plan: continue He will likely need 14 days from first negative, 03/20 cultures negative to date, stop04/03 ? source, cath tip negative, urine culture negative, echo without veg. continue supportive care. Discharge planning: rehab hospital
[2016-03-23] MEDS: POLYETHYLENE (MIRALAX) 17 GM PACK PO SCH (11:33)
[2016-03-23] MEDS: DOCUSATE SODIUM 100 MG/10 ML UDC PO SCH (11:33)
[2016-03-23] MEDS: CALCITRIOL 0.25 MCG CAP PO SCH (11:34)
[2016-03-23] MEDS: AMIODARONE 200 MG TAB PO SCH ×2 (11:39→16:03)
[2016-03-23] MEDS: CLOPIDOGREL BISULFATE 75 MG TAB PO SCH (11:40)
[2016-03-23] MEDS: LANSOPRAZOLE SOLUTAB 30 MG PO SCH (11:40)
[2016-03-23] MEDS: SERTRALINE HCL 50 MG TAB PO SCH (11:40)
[2016-03-23] MEDS ORDERED: ASCORBIC ACID 500 MG TAB PO ONE (11:40)
[2016-03-23] MEDS: ATORVASTATIN 10 MG TAB PO SCH (11:40)
[2016-03-23] MEDS: FLUTICASONE PROPIONATE NA SPR 16 GM BTL NAE SCH (11:40)
--- NOTE | 2016-03-23 11:51 | Cardiology Follow-Up ---
Subjective General Date of Service: Mar 23, 2016. Chief Complaint: follow-up shortness of breath, congestive heart failure Pt evaluation today including: conversation w/ patient, conversation w/ family , physical exam, chart review, lab review, review of studies, review of inpatient medication list History of Present Illness The patient is a 80 year old male seen in follow up. More alert today. No recurrent CP. BP stable on low dose levaphed. No significant change in PVC's on monitor. Creatinine and edema unchanged. On HD this AM. Allergies Coded Allergies: Lisinopril (Verified Allergy, Unknown, RASH, 06/24/15) Spironolactone (Verified Allergy, Unknown, unkn, 06/24/15) Zolpidem (Verified Adverse Reaction, Unknown, HALLUCINATIONS, 06/24/15) Social History Smoking Status: Former Smoker Hx Tobacco Use In Past Year?: No Hx Alcohol Use - Type And Amou: No Hx Substance Use - Type And Am: No Problem List Medical Problems: (1) Acute bronchitis Status: Acute (2) Chronic renal disease Status: Acute (3) Elevated troponin Status: Acute (4) Influenza Status: Acute (5) Systolic congestive heart failure Status: Acute Review of Systems Respiratory: No cough, No dyspnea at rest, No shortness of breath, No wheezing Cardiac: + edema, + palpitations, No PND, No chest pain, No orthopnea Physical Exam Vital Signs Last Vital Signs Documentation Date Time Temp Pulse Resp B/P Pulse Ox O2 Delivery O2 Flow Rate FiO2 03/23/16 11:15 109 108/68 03/23/16 10:59 13 96 Room Air 03/23/16 08:25 37.0 03/22/16 15:29 2.0 Physical Exam Constitutional: Level of Distress: NAD, chronically ill Psychiatric: Mental Status: active & alert Head: normocephalic Eyes: EOM: EOMI ENMT: normal ENT inspection, hearing grossly normal Neck: supple, no masses Lungs: Respiratory effort: good air movement Auscultation: no wheezing, decreased breath sounds Cardiovascular: Heart Auscultation: no murmurs, no rubs, no gallops, irregular rate rhythm Peripheral Pulses: Bruits: none appreciated Abdomen: Bowel Sounds: normal Inspection & Palpation: soft, no tenderness, guarding & rebound, no masses Musculoskeletal: normal strength (5/5 throughout) Extremities: edema (anasarca ) Neurologic: Gait & Station: pertinent finding (No focal motor deficit) Cranial Nerves: grossly intact Assessment and Plan Assessment and Plan FINAL IMPRESSION: 1. Volume overload / systolic heart failure / cardiorenal syndrome with ejection fraction of 30-35%/ TTE evidence of elevated RA pressure 2. Small circumferential pericardial effusion - likely uremic 3. Pseudomonas bacteremia / sepsis - no vegetation on TTE - catheter tip culture negative 4. 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 5. Chronic atrial fibrillation with frequent premature ventricular contractions - borderline rate control. - Coumadin on hold, however, INR therapeutic likely secondary to hepatic congestion/addition of amiodarone 6. Chronic systolic heart failure and -volume overloaded. 7. 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 8. Acute kidney injury on chronic kidney disease. -creatinine up to 6.7 9. Underlying chronic obstructive pulmonary disease. PLAN AND RECOMMENDATIONS: HD today. Restart coumadin when INR trends downward. Prefer coumadin rather than DOAC in patient with ARF Continue plavix, amiodarone, and atorvastatin. Wean levophed as tolerated post-HD. Antibiotics per ID. Laboratory Results Last 24 Hours Test 03/22/16 16:14 03/23/16 05:30 03/23/16 05:40 03/23/16 07:59 Bedside Glucose 205 mg/dl Prothrombin Time 22.7 SECONDS Prothromb Time International Ratio 2.1 Activated Partial Thromboplast Time 45.3 SECONDS Partial Thromboplastin Ratio 1.7 White Blood Count 8.24 K/uL Red Blood Count 3.02 M/uL Hemoglobin 8.6 g/dL Hematocrit 25.7 % Mean Corpuscular Volume 85.1 fL Mean Corpuscular Hemoglobin 28.5 pg Mean Corpuscular Hemoglobin Concent 33.5 g/dl Platelet Count 177 K/uL Mean Platelet Volume 10.1 fL Neutrophils (%) (Auto) 68.0 % Lymphocytes (%) (Auto) 14.8 % Monocytes (%) (Auto) 8.0 % Eosinophils (%) (Auto) 6.3 % Basophils (%) (Auto) 0.2 % Neutrophils # (Auto) 5.60 K/uL Lymphocytes # (Auto) 1.22 K/uL Monocytes # (Auto) 0.66 K/uL Eosinophils # (Auto) 0.52 K/uL Basophils # (Auto) 0.02 K/uL RDW Standard Deviation 54.9 fL RDW Coefficient of Variation 17.7 % Immature Granulocyte % (Auto) 2.7 % Immature Granulocyte # (Auto) 0.22 K/uL Red Blood Cell Morphology Unremarkable Sodium Level 136 mmol/L Potassium Level 3.6 mmol/L Chloride Level 103 mmol/L Carbon Dioxide Level 22 mmol/L Anion Gap 11.0 mmol/L Blood Urea Nitrogen 63 mg/dl Creatinine 5.20 mg/dl Est Creatinine Clear Calc Drug Dose 12.8 ml/min Estimated GFR () 11.1 Estimated GFR (Non- 9.6 BUN/Creatinine Ratio 11.8 Random Glucose 212 mg/dl Lactic Acid Level 0.8 mmol/L Calcium Level 7.3 mg/dl Phosphorus Level 4.4 mg/dl Magnesium Level 2.1 mg/dl Total Bilirubin 0.4 mg/dl Aspartate Amino Transf (AST/SGOT) 12 U/L Alanine Aminotransferase (ALT/SGPT) < 6 U/L Alkaline Phosphatase 172 U/L Total Protein 5.2 gm/dl Albumin 2.1 gm/dl Globulin 3.1 gm/dl Albumin/Globulin Ratio 0.7 Random Cortisol 15.88 mcg/dl Test 03/23/16 11:31 Bedside Glucose 166 mg/dl
--- NOTE | 2016-03-23 12:58 | Progress Note ---
Internal Med Progress Note Date of Service: Mar 23, 2016. Provider Documentation: SUBJECTIVE: Patient is deteriorating clinically. Mental status: Confused, disoriented today No new cough, chest pain, nausea, vomiting, abd pain, urinary symptoms No fever spikes Has an feeding tube OBJECTIVE: Vital Signs-as noted below Exam: General-awake; disoriented x 2, no distress Eyes-EOMI; no scleral icterus HEENT- Feeding tube + Neck-no JVD; Left IJ Central line + Lungs-coarse breath sounds anteriorly Heart-irregularly irregular Abdomen-soft; NTND; nBS Extremities-2+ peripheral pulses; 1+ le edema; edema of UE- Rt > Lt Neuro-no gross focal deficits Lab data as noted below. Procedures: CT head Interval right parietal infarct. No acute intracranial findings. CT c-spine Findings of severe degenerative change combined with extensive posterior laminectomy defects. No acute process is appreciated. TTE * The study was technically limited. * The left ventricle is moderately dilated. * Left ventricular systolic function is moderate to severely reduced. * Ejection Fraction = 30-35%. * The right ventricular systolic function is normal. * There is mild mitral regurgitation. Renal ultrasound 1. there is mild hydronephrosis right kidney. 2. Several left renal cyst. 3. Complex cyst mid to lower aspect right kidney. 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 Found to have symptomatic bradycardia, sick sinus syndrome, s/p biventricular pacemaker 03/12/16. Now with sepsis (febrile, rigors, hypotensive). JOSUÉ (baseline CKD stage 3) - - Received albumin and IVF's with sodium bicarbonate, then intermittently diuresed with furosemide vs bumetanide given volume status - Holding torsemide and Entresto (home medications) - Renal ultrasound with mild hydronephrosis, not thought to be contributory - urine output was improving but now on decline, likely 2/2 sepsis - Nephrology on board. Discussed with Dr Sifuentes PLAN: Started dialysis today after placement of dialysis catheter on 03/22/16 SEPSIS/BACTEREMIA ( PSEUDOMONAS) - Unclear source - D/D considered: Abdominal source, UTI but negative, no pneumonia, Line in situ- sent for cultures - Afebrile - IV fluid - cautious with worsening kidney function/concern for volume overload - S/P IV Dopamine drip--changed to levophed due to ventricular ectopy - Blood cx x 2- pseudomonas. Tip culture/Urine cx- negative. Repeat Blood cultures ordered - negative - Continue with IV Cefepime per ID (To be continued x 14 days post negative repeat blood cx). Lactic acid- normal SYMPTOMATIC BRADYCARDIA S/P BIVENTRICULAR PACEMAKER AICD -03/21/16 -Echo shows small circumferential pericardial effusion -EP evaluated patient- interrogated pacemaker and reprogramed the device -On amiodarone for ectopy -Cardiology/EP following HISTORY OF NON ISCHEMIC CARDIOMYOPATHY - continue atorvastatin, clopidogrel - holding carvedilol, torsemide and Entresto given pressor requirement and JOSUÉ A FIB - Coumadin initially held for supratherapeutic INR - Coumadin then restarted post-procedure (pacemaker placement) - Coumadin back on hold for need for line placement for HD - Continued on Amiodarone DM 2 - glycemic pharmacy consulted - continue insulin therapy URINARY RETENTION - Urology consulted - barlow placed - continue tamsulosin HISTORY OF CVA - continue Plavix, Atorvastatin - Coumadin on hold in case of need for line placement HISTORY OF PANCREATIC CANCER - s/p Whipple procedure - continue Pancreaze NUTRITION/ASPIRATION + Video swallow test done 03/21/16 - aspirating liquids/solids -Swallow evaluation recommends- NPO -NG tube placed- feeding started DVT prophylaxis - Coumadin on hold - SCD's DISPO PT recommending acute rehab when medically stable Code status Full code as per patient Discharge planning: rehab hospital Discussed with Instrument Engineer/ by bedside. PROGNOSIS: Guarded Vital Signs: Date Time Temp Pulse Resp B/P Pulse Ox O2 Delivery O2 Flow Rate FiO2 03/23/16 12:00 Room Air 03/23/16 11:59 36.9 114 23 118/77 96 Room Air 03/23/16 11:50 36.9 106 103/49 03/23/16 11:39 109 14 103/49 96 Room Air 03/23/16 11:15 109 108/68 03/23/16 11:00 101 115/72 03/23/16 10:59 101 13 115/72 96 Room Air 03/23/16 10:45 105 118/59 03/23/16 10:30 102 117/71 03/23/16 10:15 109 133/55 03/23/16 10:00 90 107/81 03/23/16 09:59 90 15 107/81 92 Room Air 03/23/16 09:45 102 110/56 03/23/16 09:30 103 94/61 03/23/16 09:15 83 106/62 03/23/16 09:00 105 120/56 03/23/16 08:59 105 13 120/56 94 Room Air 03/23/16 08:45 110 113/81 03/23/16 08:30 113 119/58 03/23/16 08:25 37.0 99 110/50 03/23/16 08:00 Room Air 03/23/16 07:59 36.9 99 13 99/51 93 Room Air 03/23/16 06:59 109 18 136/76 96 Room Air 03/23/16 04:00 Room Air 03/23/16 04:00 107 14 117/49 94 Room Air 03/23/16 02:00 90 18 110/55 95 03/23/16 00:01 36.8 102 14 106/69 96 Room Air 03/23/16 00:01 Room Air 03/22/16 22:00 36.6 93 16 104/63 93 Room Air 03/22/16 20:00 37.0 88 15 83/47 92 Room Air 03/22/16 20:00 Room Air 03/22/16 19:59 102 13 83/47 95 03/22/16 19:29 84 14 93/62 90 03/22/16 19:05 94 15 111/46 91 03/22/16 17:59 97 17 120/55 96 Room Air 03/22/16 17:29 94 15 97/61 92 Room Air 03/22/16 16:59 96 16 92/60 94 Room Air 03/22/16 16:03 36.6 98 21 87/52 97 Room Air 03/22/16 16:00 Room Air 03/22/16 15:29 98 16 99/56 100 Nasal Cannula 2.0 03/22/16 15:19 93 16 123/60 100 Nasal Cannula 2.0 03/22/16 15:12 36.4 105 112/63 03/22/16 15:00 106 107/61 03/22/16 14:45 103 108/56 03/22/16 14:30 106 110/64 03/22/16 14:15 102 116/55 03/22/16 14:00 113 121/64 03/22/16 13:45 107 113/55 03/22/16 13:30 104 107/61 03/22/16 13:30 100 20 100/54 100 Nasal Cannula 2.0 03/22/16 13:15 105 110/59 03/22/16 13:00 109 106/69 03/22/16 12:58 86 16 98/43 99 Nasal Cannula 2.0 Lab Results: Results Past 24 Hours Test 03/22/16 16:14 03/23/16 05:30 03/23/16 05:40 03/23/16 07:59 Range/Units Bedside Glucose 205 70-99 mg/dl Prothrombin Time 22.7 9.0-12.0 SECONDS Prothromb Time International Ratio 2.1 0.9-1.1 Activated Partial Thromboplast Time 45.3 21.0-31.0 SECONDS Partial Thromboplastin Ratio 1.7 White Blood Count 8.24 4.8-10.8 K/uL Red Blood Count 3.02 4.7-6.1 M/uL Hemoglobin 8.6 14.0-18.0 g/dL Hematocrit 25.7 42-52 % Mean Corpuscular Volume 85.1 80-100 fL Mean Corpuscular Hemoglobin 28.5 25-34 pg Mean Corpuscular Hemoglobin Concent 33.5 32-36 g/dl Platelet Count 177 130-400 K/uL Mean Platelet Volume 10.1 7.4-10.4 fL Neutrophils (%) (Auto) 68.0 % Lymphocytes (%) (Auto) 14.8 % Monocytes (%) (Auto) 8.0 % Eosinophils (%) (Auto) 6.3 % Basophils (%) (Auto) 0.2 % Neutrophils # (Auto) 5.60 1.4-6.5 K/uL Lymphocytes # (Auto) 1.22 1.2-3.4 K/uL Monocytes # (Auto) 0.66 0.11-0.59 K/uL Eosinophils # (Auto) 0.52 0-0.5 K/uL Basophils # (Auto) 0.02 0-0.2 K/uL RDW Standard Deviation 54.9 36.4-46.3 fL RDW Coefficient of Variation 17.7 11.5-14.5 % Immature Granulocyte % (Auto) 2.7 % Immature Granulocyte # (Auto) 0.22 0.00-0.02 K/uL Red Blood Cell Morphology Unremarkable Sodium Level 136 136-145 mmol/L Potassium Level 3.6 3.5-5.1 mmol/L Chloride Level 103 98-107 mmol/L Carbon Dioxide Level 22 21-32 mmol/L Anion Gap 11.0 3-11 mmol/L Blood Urea Nitrogen 63 7-18 mg/dl Creatinine 5.20 0.60-1.40 mg/dl Est Creatinine Clear Calc Drug Dose 12.8 ml/min Estimated GFR () 11.1 Estimated GFR (Non- 9.6 BUN/Creatinine Ratio 11.8 10-20 Random Glucose 212 70-99 mg/dl Lactic Acid Level 0.8 0.4-2.0 mmol/L Calcium Level 7.3 8.5-10.1 mg/dl Phosphorus Level 4.4 2.5-4.9 mg/dl Magnesium Level 2.1 1.8-2.4 mg/dl Total Bilirubin 0.4 0.2-1 mg/dl Aspartate Amino Transf (AST/SGOT) 12 15-37 U/L Alanine Aminotransferase (ALT/SGPT) < 6 12-78 U/L Alkaline Phosphatase 172 45-117 U/L Total Protein 5.2 6.4-8.2 gm/dl Albumin 2.1 3.4-5.0 gm/dl Globulin 3.1 2.5-4.0 gm/dl Albumin/Globulin Ratio 0.7 0.9-2 Random Cortisol 15.88 mcg/dl Test 03/23/16 11:31 Range/Units Bedside Glucose 166 70-99 mg/dl
--- NOTE | 2016-03-23 14:03 | Pharmacy Progress Note ---
Glycemic Control: Progress Nt Date of Service Mar 23, 2016. Scope Glycemic Pharmacist consulted by Dr Lo on 03/08/16 for glycemic control and to write orders per [facility] inpatient glycemic control protocol. Objective Accuchecks BSG (last 24hrs): Test 03/22/16 16:14 03/23/16 05:40 03/23/16 11:31 Bedside Glucose 205 mg/dl (70-99) 166 mg/dl (70-99) Random Glucose 212 mg/dl (70-99) Laboratory Data (last 24hrs) Test 03/23/16 05:40 Anion Gap 11.0 mmol/L BUN/Creatinine Ratio 11.8 Blood Urea Nitrogen 63 mg/dl Creatinine 5.20 mg/dl Potassium Level 3.6 mmol/L Sodium Level 136 mmol/L White Blood Count 8.24 K/uL Red Blood Count 3.02 M/uL Hemoglobin 8.6 g/dL Hematocrit 25.7 % Mean Corpuscular Volume 85.1 fL Mean Corpuscular Hemoglobin 28.5 pg Mean Corpuscular Hemoglobin Concent 33.5 g/dl Platelet Count 177 K/uL Mean Platelet Volume 10.1 fL Neutrophils (%) (Auto) 68.0 % Lymphocytes (%) (Auto) 14.8 % Monocytes (%) (Auto) 8.0 % Eosinophils (%) (Auto) 6.3 % Basophils (%) (Auto) 0.2 % Neutrophils # (Auto) 5.60 K/uL Lymphocytes # (Auto) 1.22 K/uL Monocytes # (Auto) 0.66 K/uL Eosinophils # (Auto) 0.52 K/uL Basophils # (Auto) 0.02 K/uL HbA1c: Test 03/09/16 05:46 Hemoglobin A1c 8.2 % (4.5-5.6) H Recent Pertinent Medications Outpatient Anti-diabetic Regimen: * Novolog 70/30 mix 28 units w/ breakfast + 12 units with dinner * A1c = 8.2 % 03/09/16 The patient is currently receiving: * Basal insulin: None * Correctional Insulin: Novolog Correction per scale Q 6 hrs Goal Range: Low 140 mg/dL - High 180 mg/dL Correction Factor: 30 mg/dL/unit * Prandial insulin: Per carb ratio of 1 unit per 15 grams CHO consumed * Oral Agents: None currently Risk Factors for Insulin Resistance: * Steroids: n/a * Infection: pseudomonas aeruginosa sepsis/bacteremia; receiving cefepime ( renally dosed) * Pressors: norepinephrine running at 0.1mcg/kg/min this AM * IVF: n/a * Recent Surgery: ICD placement on 03/12 * Diet: was receiving Fibersource TF at 20cc/hr, this is being changed to Peptamen Bariatric at 20cc/hr * Mechanical Ventilation: n/a; currently on room air Assessment & Plan ASSESSMENT: 03/23/16 * Glycemic control did deteriorate yesterday with the initiation of tube feeds ( BSGs peaked in low 200's) * Today his tube feeds were changed to a formula that will deliver fewer carbs ( a little less than half the prior formula's carb content) -- this may lead to improved glycemic control * Usually we would add a scheduled dose of rapid acting insulin ATC to cover carbs delivered in continuous tube feeds, but given uncertainty of insulin requirements with lower-carb TFs I feel that it's best we wait 24 hours and cover with correctional insulin only in the interim. Tomorrow we can add a scheduled dose of Novolog or Regular insulin to cover carbs in these feeds. * There was discussion today that norepi may be titrated down today if tolerated , and if not he may receive a dose of dexamethasone and possibly a cosyntropin stim test in the AM...this will lead to increased insulin resistance and we may need to escalate insulin doses as a result. * Will check BSGs more frequently (Q 4 hrs) for now given variables in motion that could change glycemic control for the better or worse PLAN FOR INPATIENT GLYCEMIC CONTROL: * No basal insulin at this time * Correctional Insulin with NOVOLOG Q 4 hrs * Goal Range: Low 140 mg/dL - High 180 mg/dL * Correction Factor: 30 mg/dL/unit * Consider addition of scheduled prandial insulin dose ATC tomorrow to cover carbs in TFs if patient develops hyperglycemia * Please note that the plan above was derived based on current level of insulin resistance and hospital stress. These recommendations are appropriate for inpatient admission only. Plan of care upon discharge will need to be reassessed to avoid potential outpatient hypo/hyperglycemia. Thank you.
[2016-03-23] MEDS: PEPTAMEN INTENSE VHP 1000ML BAG NG SCH (16:04)
[2016-03-23] MEDS ORDERED: NURSING VERBAL MED ORDER ONE (16:45)
--- NOTE | 2016-03-23 19:34 | Critical Care Progress Note ---
Critical Care Progress Note Date of Service Mar 23, 2016. Attending Dr. Graves Objective Date Time Temp Pulse Resp B/P Pulse Ox O2 Delivery O2 Flow Rate FiO2 03/21/16 09:00 97 13 105/56 97 Room Air 03/21/16 08:29 104 14 105/64 95 Room Air 03/21/16 08:00 Room Air 03/21/16 07:59 36.7 111 15 118/59 95 Room Air 03/21/16 07:29 96 13 106/33 91 Room Air 03/21/16 06:00 93 18 100/68 93 Room Air 03/21/16 04:00 36.8 83 14 97/43 94 Room Air 03/21/16 04:00 94 Room Air 03/21/16 02:00 99 19 117/49 96 Room Air 03/21/16 00:00 99 12 93/53 96 Room Air 03/20/16 23:59 96 Room Air 03/20/16 22:00 96 17 105/52 93 Room Air 03/20/16 20:00 95 Room Air 03/20/16 20:00 36.8 105 15 104/60 93 Room Air 03/20/16 18:00 95 20 90/58 93 Room Air 03/20/16 16:00 Room Air 03/20/16 16:00 36.9 84 17 87/40 97 Room Air 03/20/16 15:29 99 17 98/40 94 Room Air 03/20/16 15:11 89 15 95/41 03/20/16 15:08 94 22 87/53 03/20/16 15:05 89 23 108/51 03/20/16 14:59 103 17 117/65 03/20/16 14:29 90 18 109/59 94 Room Air 03/20/16 13:59 83 16 89/42 92 Room Air 03/20/16 12:59 85 15 93/50 96 Room Air 03/20/16 12:29 89 16 98/61 94 Room Air HIGH RISK CASE MANAGER: AAOx 3 but lethargic. No focal deficit HEENT: PERRL. Throat is clean, no thrush Pupils: Equal round reactive, Focal Signs: None Respiratory: Scattered rhonchi bilaterally Cardiovascular: S1-S2 occasional extrasystoles no murmurs rubs gallops Rhythm: paced Abdomen: Soft, non-tender, non-distended Ext: Anasarca, more pronounced in the upper extremities 24-Hour Column 03/21/16 08:00 Intake Total 1519 ml Output Total 875 ml Balance 644 ml Assessment & Plan 80 year-old male with advanced cardiomyopathy, s/p PPM/Bi-V ICD. Now with Pseudomonas bacteremia, PICC removed. Worsening renal failure A-fib H/o pancreatic CA, s/p Whipple DM H/o CVA Plan: HIGH RISK CASE MANAGER: Monitor mental status, most likely uremia plays a role in his confusion Will continue HD today for uremia improvement CVS: Wean Levophed as tolerated. S/p Bi-V ICD on 03/12/16 Continue Plavix. Warfarin on hold for now. Resume when ok with cardiology given pocket hematoma Continue Amiodarone Pulmonary: Stable for now Elevate head ID: Pseudomonas sensitivities reviewed. Abx tailored to Cefepime for now. Repeat blood cultures from 03/20 negative to date PICC removed, attempt to remove central line as soon as off vasoactive consistently Renal/Metabolic: HD today Monitor creatinine and urine output. femoral HD catheter GI: S/p NGT, failed swallow eval Having difficulty giving pancreatic enzymes via NG tube, change formulation to elemental Heme: To eventually resume anticoagulation Platelets recovered Endo: Cortisol response adequate, if continues to be hypotensive consider Decadron and cortisol stim test, added high-dose vitamin C daily to tube feeds I discussed his care with his extensively at bedside She had an opportunity to ask questions. DVT prophylaxis: ICDs I have personally spent 40 minutes of critical care time in the direct management of this patient. This is a life/limb threatening event. This includes time spent evaluating patient, direct bedside care, chart review, placing orders, interpretation of diagnostic studies, discussion with consultants, patient, and family members, as well as other required patient management activities. This time is exclusive of all separately billable procedures, and teaching time and separate from and in addition to any other critical care service time. Data Medications: Current Inpatient Medications Medications (Trade) Dose Ordered Sig/Quoc Route Start Time Stop Time Status Last Admin Dose Admin Nitroglycerin (Nitrostat Tab) 0.4 mg UD PRN SL 03/08/16 17:00 04/07/16 16:59 03/14/16 08:34 0.4 MG Glucose (Glucose 40% Gel) 15-30 GRAMS 15 GRAMS... UD PRN PO 03/08/16 17:15 04/07/16 17:14 Glucose (Glucose Chew Tab) 4-8 Tablets 4 Tabl... UD PRN PO 03/08/16 17:15 04/07/16 17:14 Dextrose (Dextrose 50% 50ML Syringe) 25-50ML OF 50% DW IV FOR... UD PRN IV 03/08/16 17:15 04/07/16 17:14 03/21/16 18:22 50 ML Glucagon (Glucagon Inj) 1 mg UD PRN SQ 03/08/16 17:15 04/07/16 17:14 Miscellaneous Information (Consult Glycemic Management Pharmacy) 1 ea UD PRN N/A 03/08/16 19:45 04/07/16 19:44 Atorvastatin Calcium (Lipitor Tab) 10 mg DAILY PO 03/09/16 09:00 04/08/16 08:59 03/23/16 11:40 10 MG Clopidogrel Bisulfate (plAVix TAB) 75 mg DAILY PO 03/09/16 09:00 04/08/16 08:59 Future hold 03/23/16 11:40 75 MG Fluticasone Propionate (Flonase Nasal [place]) 2 sprays DAILY RICHA 03/09/16 09:00 04/08/16 08:59 03/23/16 11:40 2 SPRAYS Levalbuterol (Xopenex Hfa Inhaler) 2 puffs Q4H PRN INH 03/08/16 17:30 04/07/16 17:29 Sertraline HCl (Zoloft Tab) 25 mg DAILY PO 03/09/16 09:00 04/08/16 08:59 03/23/16 11:40 25 MG Miscellaneous Information (Order Awaiting Action) 1 ea QS N/A 03/08/16 19:45 04/07/16 19:44 Amylase/Lipase/ Protease (Pancreaze (Lipase 10,500U) Cap) 2 cap TIDM PO 03/09/16 07:15 04/08/16 07:29 Future Hold 03/23/16 11:40 2 CAP Amylase/Lipase/ Protease (Pancreaze (Lipase 10,500U) Cap) 1-2 CAPS WITH SNACKS UD PRN PO 03/08/16 19:45 04/07/16 19:44 Polyethylene (Miralax Powder Packet) 17 gm Q6H PRN PO 03/10/16 21:15 04/09/16 21:14 03/13/16 10:48 17 GM Acetaminophen/ Codeine Phosphate (Tylenol w/ Codeine #3 Tab) 1 tab for pain scale 4-6 2 t... Q4H PRN PO 03/12/16 09:30 04/11/16 09:29 03/20/16 21:03 2 TAB Acetaminophen (Tylenol Tab) 650 mg Q4H PRN PO 03/12/16 09:30 04/11/16 09:29 03/20/16 22:59 650 MG Warfarin Sodium (Coumadin Tab) 2.5 mg DAILY@16 PO 03/13/16 16:00 04/12/16 15:59 Future Hold 03/15/16 16:39 2.5 MG Ondansetron HCl (Zofran Inj) 4 mg Q4H PRN IV 03/14/16 08:45 04/13/16 08:44 03/16/16 16:05 4 MG Amiodarone HCl (Cordarone Tab) 200 mg BIDM PO 03/14/16 16:30 04/13/16 16:29 03/23/16 16:03 200 MG Bisacodyl (Dulcolax Supp) 10 mg DAILY PRN TX 03/16/16 09:45 04/15/16 09:44 Future Hold 03/17/16 10:10 10 MG Polyethylene (Miralax Powder Packet) 17 gm BID PO 03/17/16 09:00 04/16/16 08:59 Future Hold 03/22/16 16:52 17 GM Cefepime HCl 1 ea 1 ea UD PRN N/A 03/19/16 10:15 04/18/16 10:14 Cefepime HCl/ Dextrose (Maxipime IV/D5 100ml) 105.65 ml @ 200 mls/ hr Q24H IV 03/20/16 20:00 03/29/16 19:59 03/22/16 20:13 200 MLS/HR Calcitriol 0.25 mcg 0.25 mcg MoWeFr@0900 PO 03/21/16 09:00 04/20/16 08:59 03/21/16 07:58 0.25 MCG Norepinephrine Bitartrate/ Dextrose (Levophed Inj/ D5W 500ml) 508 ml @ 0 mls/hr Q0M PRN IV 03/21/16 10:45 04/20/16 10:44 03/21/16 23:59 53.4 MLS/HR Docusate Sodium (coLACE SYRUP) 100 mg BID PO 03/22/16 21:00 04/21/16 20:59 Future Hold 03/22/16 16:52 100 MG Lansoprazole (Prevacid Solutab) 30 mg QAM PO 03/23/16 09:00 04/22/16 08:59 03/23/16 11:40 30 MG Ascorbic Acid (Vitamin C Tab) 1,000 mg QAM PO 03/24/16 09:00 04/23/16 08:59 Enteral Nutritional Formula (Peptamen Intense VHP) 1,000 ml CONTINUOUS NG 03/23/16 11:45 04/22/16 11:44 03/23/16 16:04 1,000 ML Insulin Aspart (novoLOG ASPART) SLIDING SCALE G... Q4 SC 03/23/16 16:00 04/22/16 15:59 03/23/16 16:06 2 UNITS I & O: 24-Hour Column 03/23/16 08:00 Intake Total 1817 ml Output Total 650 ml Balance 1167 ml Vital Signs: Date Time Temp Pulse Resp B/P Pulse Ox O2 Delivery O2 Flow Rate FiO2 03/23/16 17:59 81 14 104/41 95 Room Air 03/23/16 16:59 103 19 105/41 95 Room Air 03/23/16 16:29 90 19 111/51 97 Room Air 03/23/16 16:00 Room Air 03/23/16 15:59 36.9 81 17 94/55 90 Room Air 03/23/16 15:29 97 21 101/73 98 Room Air 03/23/16 14:59 79 18 97/48 93 Room Air 03/23/16 14:44 86 16 107/50 96 Room Air 03/23/16 14:29 91 19 94/62 92 Room Air 03/23/16 13:29 94 19 123/61 98 Room Air 03/23/16 12:59 96 20 119/69 98 Room Air 03/23/16 12:29 100 26 121/48 98 Room Air 03/23/16 12:00 Room Air 03/23/16 11:59 36.9 114 23 118/77 96 Room Air 03/23/16 11:50 36.9 106 103/49 03/23/16 11:39 109 14 103/49 96 Room Air 03/23/16 11:15 109 108/68 03/23/16 11:00 101 115/72 03/23/16 10:59 101 13 115/72 96 Room Air 03/23/16 10:45 105 118/59 03/23/16 10:30 102 117/71 03/23/16 10:15 109 133/55 03/23/16 10:00 90 107/81 03/23/16 09:59 90 15 107/81 92 Room Air 03/23/16 09:45 102 110/56 03/23/16 09:30 103 94/61 03/23/16 09:15 83 106/62 03/23/16 09:00 105 120/56 03/23/16 08:59 105 13 120/56 94 Room Air 03/23/16 08:45 110 113/81 03/23/16 08:30 113 119/58 03/23/16 08:25 37.0 99 110/50 03/23/16 08:00 Room Air 03/23/16 07:59 36.9 99 13 99/51 93 Room Air 03/23/16 06:59 109 18 136/76 96 Room Air 03/23/16 04:00 Room Air 03/23/16 04:00 107 14 117/49 94 Room Air 03/23/16 02:00 90 18 110/55 95 03/23/16 00:01 36.8 102 14 106/69 96 Room Air 03/23/16 00:01 Room Air 03/22/16 22:00 36.6 93 16 104/63 93 Room Air 03/22/16 20:00 37.0 88 15 83/47 92 Room Air 03/22/16 20:00 Room Air 03/22/16 19:59 102 13 83/47 95 03/22/16 19:29 84 14 93/62 90 Laboratory Results: Last 24 Hours Test 03/23/16 05:30 03/23/16 05:40 03/23/16 07:59 03/23/16 11:31 Prothrombin Time 22.7 SECONDS Prothromb Time International Ratio 2.1 Activated Partial Thromboplast Time 45.3 SECONDS Partial Thromboplastin Ratio 1.7 White Blood Count 8.24 K/uL Red Blood Count 3.02 M/uL Hemoglobin 8.6 g/dL Hematocrit 25.7 % Mean Corpuscular Volume 85.1 fL Mean Corpuscular Hemoglobin 28.5 pg Mean Corpuscular Hemoglobin Concent 33.5 g/dl Platelet Count 177 K/uL Mean Platelet Volume 10.1 fL Neutrophils (%) (Auto) 68.0 % Lymphocytes (%) (Auto) 14.8 % Monocytes (%) (Auto) 8.0 % Eosinophils (%) (Auto) 6.3 % Basophils (%) (Auto) 0.2 % Neutrophils # (Auto) 5.60 K/uL Lymphocytes # (Auto) 1.22 K/uL Monocytes # (Auto) 0.66 K/uL Eosinophils # (Auto) 0.52 K/uL Basophils # (Auto) 0.02 K/uL RDW Standard Deviation 54.9 fL RDW Coefficient of Variation 17.7 % Immature Granulocyte % (Auto) 2.7 % Immature Granulocyte # (Auto) 0.22 K/uL Red Blood Cell Morphology Unremarkable Sodium Level 136 mmol/L Potassium Level 3.6 mmol/L Chloride Level 103 mmol/L Carbon Dioxide Level 22 mmol/L Anion Gap 11.0 mmol/L Blood Urea Nitrogen 63 mg/dl Creatinine 5.20 mg/dl Est Creatinine Clear Calc Drug Dose 12.8 ml/min Estimated GFR () 11.1 Estimated GFR (Non- 9.6 BUN/Creatinine Ratio 11.8 Random Glucose 212 mg/dl Lactic Acid Level 0.8 mmol/L Calcium Level 7.3 mg/dl Phosphorus Level 4.4 mg/dl Magnesium Level 2.1 mg/dl Total Bilirubin 0.4 mg/dl Aspartate Amino Transf (AST/SGOT) 12 U/L Alanine Aminotransferase (ALT/SGPT) < 6 U/L Alkaline Phosphatase 172 U/L Total Protein 5.2 gm/dl Albumin 2.1 gm/dl Globulin 3.1 gm/dl Albumin/Globulin Ratio 0.7 Random Cortisol 15.88 mcg/dl Bedside Glucose 166 mg/dl Test 03/23/16 16:02 Bedside Glucose 240 mg/dl
[2016-03-23] MEDS: CEFEPIME IV 500 MG in DEXTROSE 5% 100ML 100 ML IV SCH (20:31)
[2016-03-23] MEDS: ACETAMINOPHEN IV 100 ML IV PRN (21:46)
[2016-03-24] VITALS (33 sets, daily range): BP systolic 81–137; BP diastolic 36–76; PULSE 69–119; TEMP 36.5–37; O2SAT 92–99
[2016-03-24] MEDS: INSULIN ASPART 100 UNITS/ML 3 ML PEN SC SCH ×6 (01:58→20:08)
[2016-03-24 03:47] LABS: HEMATOCRIT 25.8 % (42-52); MEAN CELL VOLUME 86.9 fL (80-100); MEAN CORPUSCULAR HEMOGLOBIN 29.6 pg (25-34); MEAN CORPUSCULAR HGB CONC 34.1 g/dl (32-36); MEAN PLATELET VOLUME 9.5 fL (7.4-10.4); PLATELET COUNT 175 K/uL (130-400); RED BLOOD COUNT 2.97 M/uL (4.7-6.1); WHITE BLOOD COUNT 8.49 K/uL (4.8-10.8)
[2016-03-24 04:10] LABS: BUN/CREATININE RATIO 12.7 (10-20); CALCIUM 7.2 mg/dl (8.5-10.1); CREATININE 3.6 mg/dl (0.60-1.40); POTASSIUM 3.6 mmol/L (3.5-5.1)
[2016-03-24 04:14] LABS: FERRITIN 191.4 ng/ml (8.0-388.0)
[2016-03-24] MEDS: ATORVASTATIN 10 MG TAB PO SCH (07:52)
[2016-03-24] MEDS: FLUTICASONE PROPIONATE NA SPR 16 GM BTL NAE SCH (07:52)
[2016-03-24] MEDS: LANSOPRAZOLE SOLUTAB 30 MG PO SCH (07:52)
[2016-03-24] MEDS: CLOPIDOGREL BISULFATE 75 MG TAB PO SCH (07:52)
[2016-03-24] MEDS: AMIODARONE 200 MG TAB PO SCH ×2 (07:52→16:13)
[2016-03-24] MEDS: ASCORBIC ACID 500 MG TAB PO SCH (07:53)
[2016-03-24] MEDS: SERTRALINE HCL 50 MG TAB PO SCH (07:53)
--- NOTE | 2016-03-24 09:47 | Dialysis Progress Note ---
Nephrology Dialysis Note Date of Service: Mar 24, 2016. Subjective 80 yo male with regis/atn who no longer requires dialysis. although not requiring oxygen, pt feels sob. has dobhoff tube in place on tube feeds at 20cc /hr. seen on dialysis. catheter is positional. difficult to run. much more alert. Objective Date Time Temp Pulse Resp B/P Pulse Ox O2 Delivery O2 Flow Rate FiO2 03/24/16 08:00 98 Room Air 03/24/16 08:00 36.9 105 16 113/54 98 Room Air 03/24/16 06:11 93 8 98/64 99 Room Air 03/24/16 05:59 37.0 84 10 81/41 98 Room Air 03/24/16 04:59 97 18 106/55 99 Room Air 03/24/16 04:47 99 Room Air 03/24/16 03:59 102 26 103/54 94 Room Air 03/24/16 02:59 94 19 99/47 95 Room Air 03/24/16 01:59 94 7 104/51 96 Room Air 03/24/16 00:59 103 21 120/57 98 Room Air 03/24/16 00:23 99 Room Air 03/23/16 23:59 37.0 84 13 99/51 95 Room Air 03/23/16 22:59 78 8 100/41 94 03/23/16 21:59 97 12 107/53 99 Room Air 03/23/16 20:59 78 17 95/62 92 03/23/16 20:05 99 Room Air 03/23/16 20:00 37.0 98 22 110/64 95 Room Air 03/23/16 19:00 88 17 93 03/23/16 17:59 81 14 104/41 95 Room Air 03/23/16 16:59 103 19 105/41 95 Room Air 03/23/16 16:29 90 19 111/51 97 Room Air 03/23/16 16:00 Room Air 03/23/16 15:59 36.9 81 17 94/55 90 Room Air 03/23/16 15:29 97 21 101/73 98 Room Air 03/23/16 14:59 79 18 97/48 93 Room Air 03/23/16 14:44 86 16 107/50 96 Room Air 03/23/16 14:29 91 19 94/62 92 Room Air 03/23/16 13:29 94 19 123/61 98 Room Air 03/23/16 12:59 96 20 119/69 98 Room Air 03/23/16 12:29 100 26 121/48 98 Room Air 03/23/16 12:00 Room Air 03/23/16 11:59 36.9 114 23 118/77 96 Room Air 03/23/16 11:50 36.9 106 103/49 03/23/16 11:39 109 14 103/49 96 Room Air 03/23/16 11:15 109 108/68 03/23/16 11:00 101 115/72 03/23/16 10:59 101 13 115/72 96 Room Air 03/23/16 10:45 105 118/59 03/23/16 10:30 102 117/71 03/23/16 10:15 109 133/55 03/23/16 10:00 90 107/81 03/23/16 09:59 90 15 107/81 92 Room Air 03/23/16 09:45 102 110/56 Physical Exam: General-aaox3, more alert Eyes-no sceral icterus ENT-mmm, +ng tube Neck-supple Lungs-decreased breath sounds at bases Heart-irregular, tachy Abdomen-bs+ s/nt/nd Extremities-+2 to 3 pitting edema, +scrotal edema Neuro-nonfocal Current Inpatient Medications Medications (Trade) Dose Ordered Sig/Quoc Route Start Time Stop Time Status Last Admin Dose Admin Nitroglycerin (Nitrostat Tab) 0.4 mg UD PRN SL 03/08/16 17:00 04/07/16 16:59 03/14/16 08:34 0.4 MG Glucose (Glucose 40% Gel) 15-30 GRAMS 15 GRAMS... UD PRN PO 03/08/16 17:15 04/07/16 17:14 Glucose (Glucose Chew Tab) 4-8 Tablets 4 Tabl... UD PRN PO 03/08/16 17:15 04/07/16 17:14 Dextrose (Dextrose 50% 50ML Syringe) 25-50ML OF 50% DW IV FOR... UD PRN IV 03/08/16 17:15 04/07/16 17:14 03/21/16 18:22 50 ML Glucagon (Glucagon Inj) 1 mg UD PRN SQ 03/08/16 17:15 04/07/16 17:14 Miscellaneous Information (Consult Glycemic Management Pharmacy) 1 ea UD PRN N/A 03/08/16 19:45 04/07/16 19:44 Atorvastatin Calcium (Lipitor Tab) 10 mg DAILY PO 03/09/16 09:00 04/08/16 08:59 03/24/16 07:52 10 MG Clopidogrel Bisulfate (plAVix TAB) 75 mg DAILY PO 03/09/16 09:00 04/08/16 08:59 Future hold 03/24/16 07:52 75 MG Fluticasone Propionate (Flonase Nasal [place]) 2 sprays DAILY RICHA 03/09/16 09:00 04/08/16 08:59 03/24/16 07:52 2 SPRAYS Levalbuterol (Xopenex Hfa Inhaler) 2 puffs Q4H PRN INH 03/08/16 17:30 04/07/16 17:29 Sertraline HCl (Zoloft Tab) 25 mg DAILY PO 03/09/16 09:00 04/08/16 08:59 03/24/16 07:53 25 MG Miscellaneous Information (Order Awaiting Action) 1 ea QS N/A 03/08/16 19:45 04/07/16 19:44 Amylase/Lipase/ Protease (Pancreaze (Lipase 10,500U) Cap) 2 cap TIDM PO 03/09/16 07:15 04/08/16 07:29 Future Hold 03/23/16 11:40 2 CAP Amylase/Lipase/ Protease (Pancreaze (Lipase 10,500U) Cap) 1-2 CAPS WITH SNACKS UD PRN PO 03/08/16 19:45 04/07/16 19:44 Polyethylene (Miralax Powder Packet) 17 gm Q6H PRN PO 03/10/16 21:15 04/09/16 21:14 03/13/16 10:48 17 GM Acetaminophen/ Codeine Phosphate (Tylenol w/ Codeine #3 Tab) 1 tab for pain scale 4-6 2 t... Q4H PRN PO 03/12/16 09:30 04/11/16 09:29 03/20/16 21:03 2 TAB Acetaminophen (Tylenol Tab) 650 mg Q4H PRN PO 03/12/16 09:30 04/11/16 09:29 03/20/16 22:59 650 MG Warfarin Sodium (Coumadin Tab) 2.5 mg DAILY@16 PO 03/13/16 16:00 04/12/16 15:59 Future Hold 03/15/16 16:39 2.5 MG Ondansetron HCl (Zofran Inj) 4 mg Q4H PRN IV 03/14/16 08:45 04/13/16 08:44 03/16/16 16:05 4 MG Amiodarone HCl (Cordarone Tab) 200 mg BIDM PO 03/14/16 16:30 04/13/16 16:29 03/24/16 07:52 200 MG Bisacodyl (Dulcolax Supp) 10 mg DAILY PRN MT 03/16/16 09:45 04/15/16 09:44 Future Hold 03/17/16 10:10 10 MG Polyethylene (Miralax Powder Packet) 17 gm BID PO 03/17/16 09:00 04/16/16 08:59 Future Hold 03/22/16 16:52 17 GM Cefepime HCl 1 ea 1 ea UD PRN N/A 03/19/16 10:15 04/18/16 10:14 Cefepime HCl/ Dextrose (Maxipime IV/D5 100ml) 105.65 ml @ 200 mls/ hr Q24H IV 03/20/16 20:00 03/29/16 19:59 03/23/16 20:31 200 MLS/HR Calcitriol 0.25 mcg 0.25 mcg MoWeFr@0900 PO 03/21/16 09:00 04/20/16 08:59 03/21/16 07:58 0.25 MCG Norepinephrine Bitartrate/ Dextrose (Levophed Inj/ D5W 500ml) 508 ml @ 0 mls/hr Q0M PRN IV 03/21/16 10:45 04/20/16 10:44 03/21/16 23:59 53.4 MLS/HR Docusate Sodium (coLACE SYRUP) 100 mg BID PO 03/22/16 21:00 04/21/16 20:59 Future Hold 03/22/16 16:52 100 MG Lansoprazole (Prevacid Solutab) 30 mg QAM PO 03/23/16 09:00 1/22/17 08:59 03/24/16 07:52 30 MG Ascorbic Acid (Vitamin C Tab) 1,000 mg QAM PO 03/24/16 09:00 04/23/16 08:59 03/24/16 07:53 1,000 MG Enteral Nutritional Formula (Peptamen Intense VHP) 1,000 ml CONTINUOUS NG 03/23/16 11:45 04/22/16 11:44 03/23/16 16:04 1,000 ML Insulin Aspart SLIDING SCALE G... Q4 SC 03/23/16 16:00 04/22/16 15:59 03/24/16 07:58 1 UNITS Acetaminophen (Ofirmev Iv) 100 ml @ 400 mls/hr Q8H PRN IV 03/23/16 20:30 04/22/16 20:29 03/23/16 21:46 400 MLS/HR Last 24 Hours Test 03/23/16 11:31 03/23/16 16:02 03/23/16 20:26 03/24/16 01:52 Bedside Glucose 166 mg/dl 240 mg/dl 237 mg/dl 235 mg/dl Test 03/24/16 03:36 03/24/16 07:51 White Blood Count 8.49 K/uL Red Blood Count 2.97 M/uL Hemoglobin 8.8 g/dL Hematocrit 25.8 % Mean Corpuscular Volume 86.9 fL Mean Corpuscular Hemoglobin 29.6 pg Mean Corpuscular Hemoglobin Concent 34.1 g/dl RDW Standard Deviation 56.2 fL RDW Coefficient of Variation 17.7 % Platelet Count 175 K/uL Mean Platelet Volume 9.5 fL Sodium Level 138 mmol/L Potassium Level 3.6 mmol/L Chloride Level 103 mmol/L Carbon Dioxide Level 25 mmol/L Anion Gap 10.0 mmol/L Blood Urea Nitrogen 46 mg/dl Creatinine 3.60 mg/dl Est Creatinine Clear Calc Drug Dose 18.6 ml/min Estimated GFR () 17.3 Estimated GFR (Non- 14.9 BUN/Creatinine Ratio 12.7 Random Glucose 204 mg/dl Calcium Level 7.2 mg/dl Iron Level 96 mcg/dl Total Iron Binding Capacity 149 mcg/dl Transferrin 118 mg/dl Transferrin % Saturation 58 % Ferritin 191.4 ng/ml Bedside Glucose 196 mg/dl Assessment & Plan regis/atn with multiple insults to the kidney. now on dialysis for clearance of toxins. bp is better and off pressors. dialyzing for clearance at this time. needed to reposition temporary catheter. repeat cultures are negative. will plan on tunneled line on saturday. Dr. Hicks aware. although coumadin on hold, inr is 2.1. to repeat coags again tomorrow. seen on dialysis.
[2016-03-24] MEDS ORDERED: GLUTAMINE 15 GM PO ONE (10:14)
--- NOTE | 2016-03-24 10:42 | Critical Care Progress Note ---
Critical Care Progress Note Date of Service Mar 24, 2016. Attending Dr. Graves Subjective Mild dyspnea, alert and oriented Objective Date Time Temp Pulse Resp B/P Pulse Ox O2 Delivery O2 Flow Rate FiO2 03/21/16 09:00 97 13 105/56 97 Room Air 03/21/16 08:29 104 14 105/64 95 Room Air 03/21/16 08:00 Room Air 03/21/16 07:59 36.7 111 15 118/59 95 Room Air 03/21/16 07:29 96 13 106/33 91 Room Air 03/21/16 06:00 93 18 100/68 93 Room Air 03/21/16 04:00 36.8 83 14 97/43 94 Room Air 03/21/16 04:00 94 Room Air 03/21/16 02:00 99 19 117/49 96 Room Air 03/21/16 00:00 99 12 93/53 96 Room Air 03/20/16 23:59 96 Room Air 03/20/16 22:00 96 17 105/52 93 Room Air 03/20/16 20:00 95 Room Air 03/20/16 20:00 36.8 105 15 104/60 93 Room Air 03/20/16 18:00 95 20 90/58 93 Room Air 03/20/16 16:00 Room Air 03/20/16 16:00 36.9 84 17 87/40 97 Room Air 03/20/16 15:29 99 17 98/40 94 Room Air 03/20/16 15:11 89 15 95/41 03/20/16 15:08 94 22 87/53 03/20/16 15:05 89 23 108/51 03/20/16 14:59 103 17 117/65 03/20/16 14:29 90 18 109/59 94 Room Air 03/20/16 13:59 83 16 89/42 92 Room Air 03/20/16 12:59 85 15 93/50 96 Room Air 03/20/16 12:29 89 16 98/61 94 Room Air SPECIAL SERVICES COORDINATOR: AAOx 3 but lethargic. No focal deficit HEENT: PERRL. Throat is clean, no thrush Pupils: Equal round reactive, Focal Signs: None Respiratory: Scattered rhonchi bilaterally Cardiovascular: S1-S2 occasional extrasystoles no murmurs rubs gallops Rhythm: paced Abdomen: Soft, non-tender, non-distended Ext: Anasarca, more pronounced in the upper extremities 24-Hour Column 03/21/16 08:00 Intake Total 1519 ml Output Total 875 ml Balance 644 ml Assessment & Plan 80 year-old male with advanced cardiomyopathy, s/p PPM/Bi-V ICD. Now with Pseudomonas bacteremia, PICC removed. Worsening renal failure A-fib H/o pancreatic CA, s/p Whipple DM H/o CVA Plan: SPECIAL SERVICES COORDINATOR: Metabolic encephalopathy secondary to uremia, improved today status post hemodialysis CVS: Hypotension: Resolved off pressors for 24 hours S/p Bi-V ICD on 03/12/16 Continue Plavix. Warfarin on hold for now. Resume when ok with cardiology given pocket hematoma Continue Amiodarone Pulmonary: Elevate head ID: Pseudomonas sensitivities reviewed. Abx tailored to Cefepime for now. Repeat blood cultures from 03/20 negative to date, will treat 14 days from at this point PICC removed If able to tolerate hemodialysis, we will discontinue central venous catheter and HD catheter, plan tunneled cath Saturday. Renal/Metabolic: HD today Monitor creatinine and urine output. femoral HD catheter GI: S/p NGT, failed swallow eval Having difficulty giving pancreatic enzymes via NG tube, change formulation to elemental - increase to goal feeding, adding protein Heme: To eventually resume anticoagulation Platelets recovered Endo: Cortisol response adequate, if continues to be hypotensive consider Decadron and cortisol stim test, added high-dose vitamin C daily to tube feeds I discussed his care with his extensively at bedside She had an opportunity to ask questions. DVT prophylaxis: ICDs Stable for downgrade of care Data Medications: Current Inpatient Medications Medications (Trade) Dose Ordered Sig/Quoc Route Start Time Stop Time Status Last Admin Dose Admin Nitroglycerin (Nitrostat Tab) 0.4 mg UD PRN SL 03/08/16 17:00 04/07/16 16:59 03/14/16 08:34 0.4 MG Glucose (Glucose 40% Gel) 15-30 GRAMS 15 GRAMS... UD PRN PO 03/08/16 17:15 04/07/16 17:14 Glucose (Glucose Chew Tab) 4-8 Tablets 4 Tabl... UD PRN PO 03/08/16 17:15 04/07/16 17:14 Dextrose (Dextrose 50% 50ML Syringe) 25-50ML OF 50% DW IV FOR... UD PRN IV 03/08/16 17:15 04/07/16 17:14 03/21/16 18:22 50 ML Glucagon (Glucagon Inj) 1 mg UD PRN SQ 03/08/16 17:15 04/07/16 17:14 Miscellaneous Information (Consult Glycemic Management Pharmacy) 1 ea UD PRN N/A 03/08/16 19:45 04/07/16 19:44 Atorvastatin Calcium (Lipitor Tab) 10 mg DAILY PO 03/09/16 09:00 04/08/16 08:59 03/24/16 07:52 10 MG Clopidogrel Bisulfate (plAVix TAB) 75 mg DAILY PO 03/09/16 09:00 04/08/16 08:59 Future hold 03/24/16 07:52 75 MG Fluticasone Propionate (Flonase Nasal [place]) 2 sprays DAILY RICHA 03/09/16 09:00 04/08/16 08:59 03/24/16 07:52 2 SPRAYS Levalbuterol (Xopenex Hfa Inhaler) 2 puffs Q4H PRN INH 03/08/16 17:30 04/07/16 17:29 Sertraline HCl (Zoloft Tab) 25 mg DAILY PO 03/09/16 09:00 04/08/16 08:59 03/24/16 07:53 25 MG Miscellaneous Information (Order Awaiting Action) 1 ea QS N/A 03/08/16 19:45 04/07/16 19:44 Amylase/Lipase/ Protease (Pancreaze (Lipase 10,500U) Cap) 2 cap TIDM PO 03/09/16 07:15 04/08/16 07:29 Future Hold 03/23/16 11:40 2 CAP Amylase/Lipase/ Protease (Pancreaze (Lipase 10,500U) Cap) 1-2 CAPS WITH SNACKS UD PRN PO 03/08/16 19:45 04/07/16 19:44 Polyethylene (Miralax Powder Packet) 17 gm Q6H PRN PO 03/10/16 21:15 04/09/16 21:14 03/13/16 10:48 17 GM Acetaminophen/ Codeine Phosphate (Tylenol w/ Codeine #3 Tab) 1 tab for pain scale 4-6 2 t... Q4H PRN PO 03/12/16 09:30 04/11/16 09:29 03/20/16 21:03 2 TAB Acetaminophen (Tylenol Tab) 650 mg Q4H PRN PO 03/12/16 09:30 04/11/16 09:29 03/20/16 22:59 650 MG Warfarin Sodium (Coumadin Tab) 2.5 mg DAILY@16 PO 03/13/16 16:00 04/12/16 15:59 Future Hold 03/15/16 16:39 2.5 MG Ondansetron HCl (Zofran Inj) 4 mg Q4H PRN IV 03/14/16 08:45 04/13/16 08:44 03/16/16 16:05 4 MG Amiodarone HCl (Cordarone Tab) 200 mg BIDM PO 03/14/16 16:30 04/13/16 16:29 03/24/16 07:52 200 MG Bisacodyl (Dulcolax Supp) 10 mg DAILY PRN CO 03/16/16 09:45 04/15/16 09:44 Future Hold 03/17/16 10:10 10 MG Polyethylene (Miralax Powder Packet) 17 gm BID PO 03/17/16 09:00 04/16/16 08:59 Future Hold 03/22/16 16:52 17 GM Cefepime HCl 1 ea 1 ea UD PRN N/A 03/19/16 10:15 04/18/16 10:14 Cefepime HCl/ Dextrose (Maxipime IV/D5 100ml) 105.65 ml @ 200 mls/ hr Q24H IV 03/20/16 20:00 03/29/16 19:59 03/23/16 20:31 200 MLS/HR Calcitriol 0.25 mcg 0.25 mcg MoWeFr@0900 PO 03/21/16 09:00 04/20/16 08:59 03/21/16 07:58 0.25 MCG Norepinephrine Bitartrate/ Dextrose (Levophed Inj/ D5W 500ml) 508 ml @ 0 mls/hr Q0M PRN IV 03/21/16 10:45 04/20/16 10:44 03/21/16 23:59 53.4 MLS/HR Docusate Sodium (coLACE SYRUP) 100 mg BID PO 03/22/16 21:00 04/21/16 20:59 Future Hold 03/22/16 16:52 100 MG Lansoprazole (Prevacid Solutab) 30 mg QAM PO 03/23/16 09:00 04/22/16 08:59 03/24/16 07:52 30 MG Ascorbic Acid (Vitamin C Tab) 1,000 mg QAM PO 03/24/16 09:00 04/23/16 08:59 03/24/16 07:53 1,000 MG Enteral Nutritional Formula (Peptamen Intense VHP) 1,000 ml CONTINUOUS NG 03/23/16 11:45 04/22/16 11:44 03/23/16 16:04 1,000 ML Insulin Aspart SLIDING SCALE G... Q4 SC 03/23/16 16:00 04/22/16 15:59 03/24/16 07:58 1 UNITS Acetaminophen (Ofirmev Iv) 100 ml @ 400 mls/hr Q8H PRN IV 03/23/16 20:30 04/22/16 20:29 03/23/16 21:46 400 MLS/HR I & O: 24-Hour Column 03/24/16 08:00 Intake Total 1311 ml Output Total 1100 ml Balance 211 ml Vital Signs: Date Time Temp Pulse Resp B/P Pulse Ox O2 Delivery O2 Flow Rate FiO2 03/24/16 10:00 101 18 99/63 99 Room Air 03/24/16 08:00 98 Room Air 03/24/16 08:00 36.9 105 16 113/54 98 Room Air 03/24/16 06:11 93 8 98/64 99 Room Air 03/24/16 05:59 37.0 84 10 81/41 98 Room Air 03/24/16 04:59 97 18 106/55 99 Room Air 03/24/16 04:47 99 Room Air 03/24/16 03:59 102 26 103/54 94 Room Air 03/24/16 02:59 94 19 99/47 95 Room Air 03/24/16 01:59 94 7 104/51 96 Room Air 03/24/16 00:59 103 21 120/57 98 Room Air 03/24/16 00:23 99 Room Air 03/23/16 23:59 37.0 84 13 99/51 95 Room Air 03/23/16 22:59 78 8 100/41 94 03/23/16 21:59 97 12 107/53 99 Room Air 03/23/16 20:59 78 17 95/62 92 03/23/16 20:05 99 Room Air 03/23/16 20:00 37.0 98 22 110/64 95 Room Air 03/23/16 19:00 88 17 93 03/23/16 17:59 81 14 104/41 95 Room Air 03/23/16 16:59 103 19 105/41 95 Room Air 03/23/16 16:29 90 19 111/51 97 Room Air 03/23/16 16:00 Room Air 03/23/16 15:59 36.9 81 17 94/55 90 Room Air 03/23/16 15:29 97 21 101/73 98 Room Air 03/23/16 14:59 79 18 97/48 93 Room Air 03/23/16 14:44 86 16 107/50 96 Room Air 03/23/16 14:29 91 19 94/62 92 Room Air 03/23/16 13:29 94 19 123/61 98 Room Air 03/23/16 12:59 96 20 119/69 98 Room Air 03/23/16 12:29 100 26 121/48 98 Room Air 03/23/16 12:00 Room Air 03/23/16 11:59 36.9 114 23 118/77 96 Room Air 03/23/16 11:50 36.9 106 103/49 03/23/16 11:39 109 14 103/49 96 Room Air 03/23/16 11:15 109 108/68 03/23/16 11:00 101 115/72 03/23/16 10:59 101 13 115/72 96 Room Air 03/23/16 10:45 105 118/59 03/23/16 10:30 102 117/71 03/23/16 10:15 109 133/55 Laboratory Results: Last 24 Hours Test 03/23/16 11:31 03/23/16 16:02 03/23/16 20:26 03/24/16 01:52 Bedside Glucose 166 mg/dl 240 mg/dl 237 mg/dl 235 mg/dl Test 03/24/16 03:36 03/24/16 07:51 White Blood Count 8.49 K/uL Red Blood Count 2.97 M/uL Hemoglobin 8.8 g/dL Hematocrit 25.8 % Mean Corpuscular Volume 86.9 fL Mean Corpuscular Hemoglobin 29.6 pg Mean Corpuscular Hemoglobin Concent 34.1 g/dl RDW Standard Deviation 56.2 fL RDW Coefficient of Variation 17.7 % Platelet Count 175 K/uL Mean Platelet Volume 9.5 fL Sodium Level 138 mmol/L Potassium Level 3.6 mmol/L Chloride Level 103 mmol/L Carbon Dioxide Level 25 mmol/L Anion Gap 10.0 mmol/L Blood Urea Nitrogen 46 mg/dl Creatinine 3.60 mg/dl Est Creatinine Clear Calc Drug Dose 18.6 ml/min Estimated GFR () 17.3 Estimated GFR (Non- 14.9 BUN/Creatinine Ratio 12.7 Random Glucose 204 mg/dl Calcium Level 7.2 mg/dl Iron Level 96 mcg/dl Total Iron Binding Capacity 149 mcg/dl Transferrin 118 mg/dl Transferrin % Saturation 58 % Ferritin 191.4 ng/ml Bedside Glucose 196 mg/dl
--- NOTE | 2016-03-24 12:13 | Progress Note ---
Internal Med Progress Note Date of Service: Mar 24, 2016. Provider Documentation: SUBJECTIVE: Patient is deteriorating clinically. Mental status: Improved, less confused, oriented to place, person No new cough, chest pain, nausea, vomiting, abd pain, urinary symptoms No fever spikes Has an feeding tube OBJECTIVE: Vital Signs-as noted below Exam: General-awake; disoriented x 2, no distress Eyes-EOMI; no scleral icterus HEENT- Feeding tube + Neck-no JVD Lungs-coarse breath sounds anteriorly Heart-irregularly irregular Abdomen-soft; NTND; nBS Extremities-2+ peripheral pulses; 1+ le edema; edema of UE- Rt > Lt Neuro-no gross focal deficits Lab data as noted below. Procedures: CT head Interval right parietal infarct. No acute intracranial findings. CT c-spine Findings of severe degenerative change combined with extensive posterior laminectomy defects. No acute process is appreciated. TTE * The study was technically limited. * The left ventricle is moderately dilated. * Left ventricular systolic function is moderate to severely reduced. * Ejection Fraction = 30-35%. * The right ventricular systolic function is normal. * There is mild mitral regurgitation. Renal ultrasound 1. there is mild hydronephrosis right kidney. 2. Several left renal cyst. 3. Complex cyst mid to lower aspect right kidney. 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 Found to have symptomatic bradycardia, sick sinus syndrome, s/p biventricular pacemaker 03/12/16. Now with sepsis (febrile, rigors, hypotensive). JOSUÉ (baseline CKD stage 3) - Improving - Newly started on Dialysis on 03/23/16; Temporary dialysis catheter placed on 03/21/16 removed on 03/24/16; Permanent dialysis catheter placed - Received albumin and IVF's with sodium bicarbonate, then intermittently diuresed with furosemide vs bumetanide given volume status - Held torsemide and Entresto (home medications) - Renal ultrasound with mild hydronephrosis, not thought to be contributory - Nephrology on board. Discussed with Dr Sifuentes SEPSIS/BACTEREMIA ( PSEUDOMONAS) - Improving - Unclear source - D/D considered: Abdominal source, UTI but negative, no pneumonia, Line in situ- sent for cultures - Afebrile - IV fluid - cautious with worsening kidney function/concern for volume overload - S/P IV Dopamine drip--changed to levophed due to ventricular ectopy--off it since 03/23/16 - Blood cx x 2- pseudomonas. Tip culture/Urine cx- negative. Repeat Blood cultures ordered - negative - Continue with IV Cefepime per ID (To be continued x 14 days post negative repeat blood cx). Lactic acid- normal SYMPTOMATIC BRADYCARDIA S/P BIVENTRICULAR PACEMAKER AICD -03/21/16 -Echo shows small circumferential pericardial effusion -EP evaluated patient- interrogated pacemaker and reprogramed the device -On amiodarone for ectopy -Cardiology/EP following HISTORY OF NON ISCHEMIC CARDIOMYOPATHY - continue atorvastatin, clopidogrel - holding carvedilol, torsemide and Entresto given pressor requirement and JOSUÉ A FIB - Coumadin initially held for supratherapeutic INR - Coumadin then restarted post-procedure (pacemaker placement) - Coumadin back on hold for need for line placement for HD . To restart after the placement - Continued on Amiodarone DM 2 - glycemic pharmacy consulted - continue insulin therapy URINARY RETENTION - Urology consulted - barlow placed - continue tamsulosin HISTORY OF CVA - continue Plavix, Atorvastatin - Coumadin on hold in case of need for line placement HISTORY OF PANCREATIC CANCER - s/p Whipple procedure - continue Pancreaze NUTRITION/ASPIRATION + Video swallow test done 03/21/16 - aspirating liquids/solids -Swallow evaluation recommends- NPO -NG tube placed- feeding started DVT prophylaxis - Coumadin on hold - SCD's DISPO PT recommending acute rehab when medically stable Code status Full code as per patient Discharge planning: rehab hospital Discussed with Petroleum Production Engineer/ by bedside. PROGNOSIS: Guarded Vital Signs: Date Time Temp Pulse Resp B/P Pulse Ox O2 Delivery O2 Flow Rate FiO2 03/24/16 12:00 36.5 105 16 101/59 98 Room Air 03/24/16 12:00 98 Room Air 03/24/16 10:48 36.9 69 137/36 03/24/16 10:30 71 102/42 03/24/16 10:15 99 104/58 03/24/16 10:00 110 91/61 03/24/16 10:00 101 18 99/63 99 Room Air 03/24/16 09:45 99 104/56 03/24/16 09:30 74 102/49 03/24/16 09:15 104 113/55 03/24/16 09:00 81 103/60 03/24/16 08:45 70 91/58 03/24/16 08:36 102 105/53 03/24/16 08:30 36.9 84 109/56 03/24/16 08:00 98 Room Air 03/24/16 08:00 36.9 105 16 113/54 98 Room Air 03/24/16 06:11 93 8 98/64 99 Room Air 03/24/16 05:59 37.0 84 10 81/41 98 Room Air 03/24/16 04:59 97 18 106/55 99 Room Air 03/24/16 04:47 99 Room Air 03/24/16 03:59 102 26 103/54 94 Room Air 03/24/16 02:59 94 19 99/47 95 Room Air 03/24/16 01:59 94 7 104/51 96 Room Air 03/24/16 00:59 103 21 120/57 98 Room Air 03/24/16 00:23 99 Room Air 03/23/16 23:59 37.0 84 13 99/51 95 Room Air 03/23/16 22:59 78 8 100/41 94 03/23/16 21:59 97 12 107/53 99 Room Air 03/23/16 20:59 78 17 95/62 92 03/23/16 20:05 99 Room Air 03/23/16 20:00 37.0 98 22 110/64 95 Room Air 03/23/16 19:00 88 17 93 03/23/16 17:59 81 14 104/41 95 Room Air 03/23/16 16:59 103 19 105/41 95 Room Air 03/23/16 16:29 90 19 111/51 97 Room Air 03/23/16 16:00 Room Air 03/23/16 15:59 36.9 81 17 94/55 90 Room Air 03/23/16 15:29 97 21 101/73 98 Room Air 03/23/16 14:59 79 18 97/48 93 Room Air 03/23/16 14:44 86 16 107/50 96 Room Air 03/23/16 14:29 91 19 94/62 92 Room Air 03/23/16 13:29 94 19 123/61 98 Room Air 03/23/16 12:59 96 20 119/69 98 Room Air 03/23/16 12:29 100 26 121/48 98 Room Air Lab Results: Results Past 24 Hours Test 03/23/16 16:02 03/23/16 20:26 03/24/16 01:52 03/24/16 03:36 Range/Units Bedside Glucose 240 237 235 70-99 mg/dl White Blood Count 8.49 4.8-10.8 K/uL Red Blood Count 2.97 4.7-6.1 M/uL Hemoglobin 8.8 14.0-18.0 g/dL Hematocrit 25.8 42-52 % Mean Corpuscular Volume 86.9 80-100 fL Mean Corpuscular Hemoglobin 29.6 25-34 pg Mean Corpuscular Hemoglobin Concent 34.1 32-36 g/dl RDW Standard Deviation 56.2 36.4-46.3 fL RDW Coefficient of Variation 17.7 11.5-14.5 % Platelet Count 175 130-400 K/uL Mean Platelet Volume 9.5 7.4-10.4 fL Sodium Level 138 136-145 mmol/L Potassium Level 3.6 3.5-5.1 mmol/L Chloride Level 103 98-107 mmol/L Carbon Dioxide Level 25 21-32 mmol/L Anion Gap 10.0 3-11 mmol/L Blood Urea Nitrogen 46 7-18 mg/dl Creatinine 3.60 0.60-1.40 mg/dl Est Creatinine Clear Calc Drug Dose 18.6 ml/min Estimated GFR () 17.3 Estimated GFR (Non- 14.9 BUN/Creatinine Ratio 12.7 10-20 Random Glucose 204 70-99 mg/dl Calcium Level 7.2 8.5-10.1 mg/dl Iron Level 96 35-175 mcg/dl Total Iron Binding Capacity 149 250-450 mcg/dl Transferrin 118 200-360 mg/dl Transferrin % Saturation 58 20-50 % Ferritin 191.4 8.0-388.0 ng/ml Test 03/24/16 07:51 03/24/16 11:27 03/24/16 12:02 Range/Units Bedside Glucose 196 166 70-99 mg/dl
[2016-03-24 12:18] LABS: INR 1.7 (0.9-1.1)
[2016-03-24] MEDS: ACETAMINOPHEN IV 100 ML IV PRN (14:21)
[2016-03-24] MEDS: POLYETHYLENE (MIRALAX) 17 GM PACK PO PRN (14:22)
--- NOTE | 2016-03-24 14:41 | PROGRESS NOTE ---
DATE: 03/24/2016 CARDIOLOGY CONSULTATION FOLLOWUP NOTE The patient seen and examined. Chart, medications, telemetry reviewed. SUBJECTIVE: The patient underwent transient dialysis this morning with fair tolerance. Blood pressures were somewhat labile during the procedure. He received dialysis for clearance of toxins, dissipates Perm-A-Cath on Saturday. The patient denies any chest pains or dizziness. Heart rates have been somewhat variable. Overall, the patient notes no complaints of chest pain or discomfort, defibrillator site is healing. OBJECTIVE: VITAL SIGNS: Heart rate is 78, blood pressure is 108/50. HEENT: Normocephalic, atraumatic. NECK: Thin. There is no distinct jugular venous distention. LUNGS: Reveal diminished breath sounds with rhonchi, rale. CARDIOVASCULAR: Irregular There is no S3 gallop. EXTREMITIES: Revealed diffuse moderate anasarca. LABORATORY DATA: White cell count is 8.4, hemoglobin is 8.8. Sodium this morning was 138, potassium 3.6, chloride 103, bicarbonate 25, BUN 46, creatinine 3.6. 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 The patient tolerated transient dialysis this morning without overt arrhythmias. Anticoagulation is notable for declining INR 1.7 on no medical therapies. He does not anticipate replacement of a tunneled line. We will hold Coumadin. Continue current medication. MTDD
--- NOTE | 2016-03-24 14:50 | Pharmacy Progress Note ---
Glycemic: Assessment & Plan Date of Service Mar 24, 2016. Assessment & Plan The patient is currently receiving 7-8 units of insulin per day. BSGs ranging 166 - 240 mg/dl over the past 24hrs. Trending down, probably because patient has been weaned off of norepinephrine without any steroid, and Peptamen Bariatric has fewer than 1/2 the carbs of Novasource. Will continue same regimen for now and reassess in am. * Basal insulin: none at this time * Correctional Insulin: Novolog Correction per scale q4h Goal Range: Low 140 mg/dL - High 180 mg/dL Correction Factor: 30 mg/dL/unit * Prandial insulin: none at this time BSGs continue to improve, no changes needed to inpatient regimen at this time. Pharmacy will continue to monitor patient daily and write orders per [facility] inpatient glycemic control protocol. Thanks. * Please note that the plan above was derived based on current level of insulin resistance and hospital stress. These recommendations are appropriate for inpatient admission only. Plan of care upon discharge will need to be reassessed to avoid potential outpatient hypo/hyperglycemia.
[2016-03-24] MEDS: PEPTAMEN INTENSE VHP 1000ML BAG NG SCH (16:15)
[2016-03-24] MEDS: CEFEPIME IV 500 MG in DEXTROSE 5% 100ML 100 ML IV SCH (20:06)
--- NOTE | 2016-03-24 22:29 | DIAGNOSTIC IMAGING REPORT ---
PATRICK CLINICAL HISTORY: Coresafe placement COMPARISON STUDY: [place] March 21, 2016. FINDINGS: This exam is mildly compromised by motion artifact. A left subclavian pacer/AICD is partially imaged. The tip of the feeding tube projects over the distal body of the stomach. IMPRESSION: Tip of feeding tube projects over the distal body of the stomach. Electronically signed by: Torsten Dorsey M.D. 03/24/2016 10:27 PM
[2016-03-25] VITALS (35 sets, daily range): BP systolic 100–149; BP diastolic 60–78; PULSE 87–120; TEMP 36.8–36.9; O2SAT 94–99
[2016-03-25 05:40] LABS: HEMATOCRIT 25.7 % (42-52); MEAN CELL VOLUME 86.8 fL (80-100); MEAN CORPUSCULAR HEMOGLOBIN 30.1 pg (25-34); MEAN CORPUSCULAR HGB CONC 34.6 g/dl (32-36); MEAN PLATELET VOLUME 10.3 fL (7.4-10.4); PLATELET COUNT 178 K/uL (130-400); RED BLOOD COUNT 2.96 M/uL (4.7-6.1); WHITE BLOOD COUNT 10.56 K/uL (4.8-10.8)
[2016-03-25 05:56] LABS: INR 1.6 (0.9-1.1); PROTHROMBIN TIME (PATIENT) 17.3 SECONDS (9.0-12.0)
[2016-03-25 06:06] LABS: BUN/CREATININE RATIO 14.9 (10-20); CALCIUM 7.8 mg/dl (8.5-10.1); CREATININE 3.1 mg/dl (0.60-1.40); POTASSIUM 3.7 mmol/L (3.5-5.1)
[2016-03-25] MEDS: INSULIN ASPART 100 UNITS/ML 3 ML PEN SC SCH ×8 (06:09→20:16)
[2016-03-25] MEDS: AMIODARONE 200 MG TAB PO SCH ×2 (07:56→16:45)
[2016-03-25] MEDS ORDERED: METOPROLOL SUCC 25MG EXT REL TAB PO ONE (09:13)
[2016-03-25] MEDS: ASCORBIC ACID 500 MG TAB PO SCH (09:27)
[2016-03-25] MEDS: CLOPIDOGREL BISULFATE 75 MG TAB PO SCH (09:27)
[2016-03-25] MEDS: ATORVASTATIN 10 MG TAB PO SCH (09:27)
[2016-03-25] MEDS: SERTRALINE HCL 50 MG TAB PO SCH (09:28)
[2016-03-25] MEDS: LANSOPRAZOLE SOLUTAB 30 MG PO SCH (09:28)
[2016-03-25] MEDS: GLUTAMINE 15 GM PO SCH (09:29)
[2016-03-25] MEDS: FLUTICASONE PROPIONATE NA SPR 16 GM BTL NAE SCH (09:29)
--- NOTE | 2016-03-25 09:43 | Progress Note ---
Internal Med Progress Note Date of Service: Mar 25, 2016. Provider Documentation: SUBJECTIVE: Patient is c/o generalized weakness. Mental status: Improved, less confused, oriented to place, person No new cough, chest pain, nausea, vomiting, abd pain, urinary symptoms No fever spikes Has an feeding tube OBJECTIVE: Vital Signs-as noted below Exam: General-awake; disoriented x 2, no distress Eyes-EOMI; no scleral icterus HEENT- Feeding tube + Neck-no JVD Lungs-coarse breath sounds anteriorly Heart-irregularly irregular Abdomen-soft; NTND; nBS Extremities-2+ peripheral pulses; 1+ le edema; edema of UE- Rt > Lt; Dialysis catheter + Neuro-no gross focal deficits Lab data as noted below. Procedures: CT head Interval right parietal infarct. No acute intracranial findings. CT c-spine Findings of severe degenerative change combined with extensive posterior laminectomy defects. No acute process is appreciated. TTE * The study was technically limited. * The left ventricle is moderately dilated. * Left ventricular systolic function is moderate to severely reduced. * Ejection Fraction = 30-35%. * The right ventricular systolic function is normal. * There is mild mitral regurgitation. Renal ultrasound 1. there is mild hydronephrosis right kidney. 2. Several left renal cyst. 3. Complex cyst mid to lower aspect right kidney. 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 Found to have symptomatic bradycardia, sick sinus syndrome, s/p biventricular pacemaker 03/12/16. Now with sepsis (febrile, rigors, hypotensive). JOSUÉ (baseline CKD stage 3) - Improving - Newly started on Dialysis on 03/23/16; Temporary dialysis catheter placed on 03/21/16. Plan is tunnel cath on saturday - Received albumin and IVF's with sodium bicarbonate, then intermittently diuresed with furosemide vs bumetanide given volume status - Held torsemide and Entresto (home medications) - Renal ultrasound with mild hydronephrosis, not thought to be contributory - Nephrology on board. Discussed with Dr Sifuentes SEPSIS/BACTEREMIA ( PSEUDOMONAS) - Improved - Unclear source - D/D considered: Abdominal source, UTI but negative, no pneumonia, Line in situ- sent for cultures - Afebrile - IV fluid - cautious with worsening kidney function/concern for volume overload - S/P IV Dopamine drip--changed to levophed due to ventricular ectopy--off it since 03/23/16 - Blood cx x 2- pseudomonas. Tip culture/Urine cx- negative. Repeat Blood cultures ordered - negative - Continue with IV Cefepime per ID (To be continued x 14 days post negative repeat blood cx- Day 3). Lactic acid- normal SYMPTOMATIC BRADYCARDIA S/P BIVENTRICULAR PACEMAKER AICD -03/21/16 -Echo shows small circumferential pericardial effusion -EP evaluated patient- interrogated pacemaker and reprogramed the device -On amiodarone for Ectopy -Cardiology/EP following HISTORY OF NON ISCHEMIC CARDIOMYOPATHY - continue atorvastatin, clopidogrel - holding carvedilol, torsemide and Entresto given pressor requirement and JOSUÉ A FIB - Coumadin initially held for supratherapeutic INR - Coumadin then restarted post-procedure (pacemaker placement) - Coumadin back on hold for need for tunnel placement for HD . To restart after the placement on saturday - Continued on Amiodarone DM 2 - glycemic pharmacy consulted - continue insulin therapy URINARY RETENTION - Urology consulted - barlow placed - continue tamsulosin HISTORY OF CVA - continue Plavix, Atorvastatin - Coumadin on hold in case of need for line placement HISTORY OF PANCREATIC CANCER - s/p Whipple procedure - continue Pancreaze NUTRITION/ASPIRATION + Video swallow test done 03/21/16 - aspirating liquids/solids -Swallow evaluation recommends- NPO -NG tube placed- feeding started DVT prophylaxis - Coumadin on hold - SCD's DISPO PT recommending acute rehab when medically stable Code status Full code as per patient Discharge planning: Rehab hospital Discussed with Skiver Machine Operator/ by bedside. PROGNOSIS: Guarded Vital Signs: Date Time Temp Pulse Resp B/P Pulse Ox O2 Delivery O2 Flow Rate FiO2 03/25/16 08:00 36.8 118 19 117/60 97 Room Air 03/25/16 08:00 97 Room Air 03/25/16 05:59 117 10 105/64 97 Room Air 03/25/16 05:29 113 8 103/65 97 Room Air 03/25/16 04:25 97 Room Air 03/25/16 03:59 111 17 104/66 97 Room Air 03/25/16 02:59 102 13 100/71 96 Room Air 03/25/16 01:59 114 24 118/60 99 Room Air 03/25/16 00:59 119 11 129/62 98 Room Air 03/25/16 00:17 97 Room Air 03/24/16 23:59 105 12 118/63 97 Room Air 03/24/16 22:59 97 12 117/60 99 Room Air 03/24/16 21:59 104 12 120/54 96 Room Air 03/24/16 20:59 115 24 117/74 96 Room Air 03/24/16 20:41 99 Room Air 03/24/16 20:00 112 23 98 Room Air 03/24/16 19:59 119 16 122/64 92 Room Air 03/24/16 19:00 112 15 99 Room Air 03/24/16 18:00 107 16 110/66 93 Room Air 03/24/16 16:00 98 Room Air 03/24/16 16:00 37.0 100 16 104/56 98 Room Air 03/24/16 14:00 118 18 107/76 93 Room Air 03/24/16 12:00 36.5 105 16 101/59 98 Room Air 03/24/16 12:00 98 Room Air 03/24/16 10:48 36.9 69 137/36 03/24/16 10:30 71 102/42 03/24/16 10:15 99 104/58 03/24/16 10:00 110 91/61 03/24/16 10:00 101 18 99/63 99 Room Air 03/24/16 09:45 99 104/56 Lab Results: Results Past 24 Hours Test 03/24/16 11:27 03/24/16 12:02 03/24/16 16:08 03/24/16 19:54 Range/Units Bedside Glucose 166 213 203 70-99 mg/dl Prothrombin Time 19.0 9.0-12.0 SECONDS Prothromb Time International Ratio 1.7 0.9-1.1 Test 03/25/16 01:02 03/25/16 04:47 03/25/16 05:17 03/25/16 07:43 Range/Units Bedside Glucose 175 205 215 70-99 mg/dl White Blood Count 10.56 4.8-10.8 K/uL Red Blood Count 2.96 4.7-6.1 M/uL Hemoglobin 8.9 14.0-18.0 g/dL Hematocrit 25.7 42-52 % Mean Corpuscular Volume 86.8 80-100 fL Mean Corpuscular Hemoglobin 30.1 25-34 pg Mean Corpuscular Hemoglobin Concent 34.6 32-36 g/dl RDW Standard Deviation 55.3 36.4-46.3 fL RDW Coefficient of Variation 17.8 11.5-14.5 % Platelet Count 178 130-400 K/uL Mean Platelet Volume 10.3 7.4-10.4 fL Prothrombin Time 17.3 9.0-12.0 SECONDS Prothromb Time International Ratio 1.6 0.9-1.1 Sodium Level 140 136-145 mmol/L Potassium Level 3.7 3.5-5.1 mmol/L Chloride Level 105 98-107 mmol/L Carbon Dioxide Level 26 21-32 mmol/L Anion Gap 9.0 3-11 mmol/L Blood Urea Nitrogen 46 7-18 mg/dl Creatinine 3.10 0.60-1.40 mg/dl Est Creatinine Clear Calc Drug Dose 21.4 ml/min Estimated GFR () 20.7 Estimated GFR (Non- 17.9 BUN/Creatinine Ratio 14.9 10-20 Random Glucose 207 70-99 mg/dl Calcium Level 7.8 8.5-10.1 mg/dl
--- NOTE | 2016-03-25 10:57 | Nephrology Progress Note ---
Nephrology Progress Note Date of Service: Mar 25, 2016. Subjective 80 yo male with regis/atn on dialysis. has had three dialysis treatments on , saturday and saturday. saturday's treatment was difficult with poor blood flows from temporary catheter. pt is agitated today but much more alert. Objective Date Time Temp Pulse Resp B/P Pulse Ox O2 Delivery O2 Flow Rate FiO2 03/25/16 09:59 102 17 117/68 99 03/25/16 09:30 108 14 97 03/25/16 09:00 112 14 96 03/25/16 08:59 95 13 119/66 99 03/25/16 08:30 111 12 97 03/25/16 08:00 36.8 118 19 117/60 97 Room Air 03/25/16 08:00 104 19 96 03/25/16 08:00 97 Room Air 03/25/16 05:59 117 10 105/64 97 Room Air 03/25/16 05:29 113 8 103/65 97 Room Air 03/25/16 04:25 97 Room Air 03/25/16 03:59 111 17 104/66 97 Room Air 03/25/16 02:59 102 13 100/71 96 Room Air 03/25/16 01:59 114 24 118/60 99 Room Air 03/25/16 00:59 119 11 129/62 98 Room Air 03/25/16 00:17 97 Room Air 03/24/16 23:59 105 12 118/63 97 Room Air 03/24/16 22:59 97 12 117/60 99 Room Air 03/24/16 21:59 104 12 120/54 96 Room Air 03/24/16 20:59 115 24 117/74 96 Room Air 03/24/16 20:41 99 Room Air 03/24/16 20:00 112 23 98 Room Air 03/24/16 19:59 119 16 122/64 92 Room Air 03/24/16 19:00 112 15 99 Room Air 03/24/16 18:00 107 16 110/66 93 Room Air 03/24/16 16:00 98 Room Air 03/24/16 16:00 37.0 100 16 104/56 98 Room Air 03/24/16 14:00 118 18 107/76 93 Room Air 03/24/16 12:00 36.5 105 16 101/59 98 Room Air 03/24/16 12:00 98 Room Air Physical Exam: General-aaox3, anxious Eyes-no sceral icterus ENT-mmm, +ng tube Neck-supple Lungs-cta anteriorly Heart-irregular, tachy Abdomen-bs+ s/nt/nd Extremities-+1 edema Neuro-nonfocal Current Inpatient Medications Medications (Trade) Dose Ordered Sig/Quoc Route Start Time Stop Time Status Last Admin Dose Admin Nitroglycerin (Nitrostat Tab) 0.4 mg UD PRN SL 03/08/16 17:00 04/07/16 16:59 03/14/16 08:34 0.4 MG Glucose (Glucose 40% Gel) 15-30 GRAMS 15 GRAMS... UD PRN PO 03/08/16 17:15 04/07/16 17:14 Glucose (Glucose Chew Tab) 4-8 Tablets 4 Tabl... UD PRN PO 03/08/16 17:15 04/07/16 17:14 Dextrose (Dextrose 50% 50ML Syringe) 25-50ML OF 50% DW IV FOR... UD PRN IV 03/08/16 17:15 04/07/16 17:14 03/21/16 18:22 50 ML Glucagon (Glucagon Inj) 1 mg UD PRN SQ 03/08/16 17:15 04/07/16 17:14 Miscellaneous Information (Consult Glycemic Management Pharmacy) 1 ea UD PRN N/A 03/08/16 19:45 04/07/16 19:44 Atorvastatin Calcium (Lipitor Tab) 10 mg DAILY PO 03/09/16 09:00 04/08/16 08:59 03/25/16 09:27 10 MG Clopidogrel Bisulfate (plAVix TAB) 75 mg DAILY PO 03/09/16 09:00 04/08/16 08:59 Future hold 03/25/16 09:27 75 MG Fluticasone Propionate (Flonase Nasal [place]) 2 sprays DAILY RICHA 03/09/16 09:00 04/08/16 08:59 03/25/16 09:29 2 SPRAYS Levalbuterol (Xopenex Hfa Inhaler) 2 puffs Q4H PRN INH 03/08/16 17:30 04/07/16 17:29 Sertraline HCl (Zoloft Tab) 25 mg DAILY PO 12/9/16 09:00 04/08/16 08:59 03/25/16 09:28 25 MG Miscellaneous Information (Order Awaiting Action) 1 ea QS N/A 03/08/16 19:45 04/07/16 19:44 Amylase/Lipase/ Protease (Pancreaze (Lipase 10,500U) Cap) 2 cap TIDM PO 03/09/16 07:15 04/08/16 07:29 Future Hold 03/23/16 11:40 2 CAP Amylase/Lipase/ Protease (Pancreaze (Lipase 10,500U) Cap) 1-2 CAPS WITH SNACKS UD PRN PO 03/08/16 19:45 04/07/16 19:44 Polyethylene (Miralax Powder Packet) 17 gm Q6H PRN PO 03/10/16 21:15 04/09/16 21:14 03/24/16 14:22 17 GM Acetaminophen/ Codeine Phosphate (Tylenol w/ Codeine #3 Tab) 1 tab for pain scale 4-6 2 t... Q4H PRN PO 03/12/16 09:30 04/11/16 09:29 03/20/16 21:03 2 TAB Acetaminophen (Tylenol Tab) 650 mg Q4H PRN PO 03/12/16 09:30 04/11/16 09:29 03/20/16 22:59 650 MG Warfarin Sodium (Coumadin Tab) 2.5 mg DAILY@16 PO 03/13/16 16:00 04/12/16 15:59 Future Hold 03/15/16 16:39 2.5 MG Ondansetron HCl (Zofran Inj) 4 mg Q4H PRN IV 03/14/16 08:45 04/13/16 08:44 03/16/16 16:05 4 MG Amiodarone HCl (Cordarone Tab) 200 mg BIDM PO 03/14/16 16:30 04/13/16 16:29 03/25/16 07:56 200 MG Bisacodyl (Dulcolax Supp) 10 mg DAILY PRN [place] 03/16/16 09:45 04/15/16 09:44 Future Hold 03/17/16 10:10 10 MG Polyethylene (Miralax Powder Packet) 17 gm BID PO 03/17/16 09:00 04/16/16 08:59 Future Hold 03/22/16 16:52 17 GM Cefepime HCl 1 ea 1 ea UD PRN N/A 03/19/16 10:15 04/18/16 10:14 Cefepime HCl/ Dextrose (Maxipime IV/D5 100ml) 105.65 ml @ 200 mls/ hr Q24H IV 03/20/16 20:00 03/29/16 19:59 03/24/16 20:06 200 MLS/HR Calcitriol 0.25 mcg 0.25 mcg MoWeFr@0900 PO 03/21/16 09:00 04/20/16 08:59 03/21/16 07:58 0.25 MCG Norepinephrine Bitartrate/ Dextrose (Levophed Inj/ D5W 500ml) 508 ml @ 0 mls/hr Q0M PRN IV 03/21/16 10:45 04/20/16 10:44 03/21/16 23:59 53.4 MLS/HR Docusate Sodium (coLACE SYRUP) 100 mg BID PO 03/22/16 21:00 04/21/16 20:59 Future Hold 03/22/16 16:52 100 MG Lansoprazole (Prevacid Solutab) 30 mg QAM PO 03/23/16 09:00 04/22/16 08:59 03/25/16 09:28 30 MG Ascorbic Acid (Vitamin C Tab) 1,000 mg QAM PO 03/24/16 09:00 04/23/16 08:59 03/25/16 09:27 1,000 MG Enteral Nutritional Formula (Peptamen Intense VHP) 1,000 ml CONTINUOUS NG 03/23/16 11:45 04/22/16 11:44 03/24/16 16:15 1,000 ML Insulin Aspart SLIDING SCALE G... Q4 SC 03/23/16 16:00 04/22/16 15:59 03/25/16 07:55 1 UNITS Acetaminophen (Ofirmev Iv) 100 ml @ 400 mls/hr Q8H PRN IV 03/23/16 20:30 04/22/16 20:29 03/24/16 14:21 400 MLS/HR Glutamine (Glutasolve) 10 gm DAILY PO 03/25/16 09:00 04/24/16 08:59 03/25/16 09:29 10 GM Metoprolol Succinate (Toprol Xl Tab) 12.5 mg QAM PO 03/26/16 09:00 04/25/16 08:59 Last 24 Hours Test 03/24/16 11:27 03/24/16 12:02 03/24/16 16:08 03/24/16 19:54 Bedside Glucose 166 mg/dl 213 mg/dl 203 mg/dl Prothrombin Time 19.0 SECONDS Prothromb Time International Ratio 1.7 Test 03/25/16 01:02 03/25/16 04:47 03/25/16 05:17 03/25/16 07:43 Bedside Glucose 175 mg/dl 205 mg/dl 215 mg/dl White Blood Count 10.56 K/uL Red Blood Count 2.96 M/uL Hemoglobin 8.9 g/dL Hematocrit 25.7 % Mean Corpuscular Volume 86.8 fL Mean Corpuscular Hemoglobin 30.1 pg Mean Corpuscular Hemoglobin Concent 34.6 g/dl RDW Standard Deviation 55.3 fL RDW Coefficient of Variation 17.8 % Platelet Count 178 K/uL Mean Platelet Volume 10.3 fL Prothrombin Time 17.3 SECONDS Prothromb Time International Ratio 1.6 Sodium Level 140 mmol/L Potassium Level 3.7 mmol/L Chloride Level 105 mmol/L Carbon Dioxide Level 26 mmol/L Anion Gap 9.0 mmol/L Blood Urea Nitrogen 46 mg/dl Creatinine 3.10 mg/dl Est Creatinine Clear Calc Drug Dose 21.4 ml/min Estimated GFR () 20.7 Estimated GFR (Non- 17.9 BUN/Creatinine Ratio 14.9 Random Glucose 207 mg/dl Calcium Level 7.8 mg/dl Assessment & Plan regis/atn with multiple insults to the kidney. plan to remove temporary catheter today. tentatively scheduled for tunneled line tomorrow. inr is 1.6 today and holding coumadin. will stop the tube feeds at midnight tonight in anticipation of procedure tomorrow. to recheck inr again tomorrow. bp is better and edema is improving. urine though is very dark. likely with significant intravascular volume depletion. to give albumin with lasix today to see if we can stimulate urine output. depending on bp tomorrow, may consider removing fluid on dialysis tomorrow. so far, have only dialyzed for clearance of toxins.
[2016-03-25] MEDS ORDERED: ALBUMIN 25% 50 ML with FUROSEMIDE INJ 40 MG IV SCH ×2 (12:00)
--- NOTE | 2016-03-25 13:56 | PROGRESS NOTE ---
DATE: 03/25/2016 CARDIOLOGY CONSULTATION FOLLOWUP NOTE The patient seen and examined. Chart, medications, telemetry reviewed. SUBJECTIVE: The patient appears to once again more alert this morning though feels "tired." Notes no chest pain or worsening shortness of breath, has mild GI upset with receiving tube feeds. OBJECTIVE: VITAL SIGNS: Heart rate is 110. Blood pressure is 117/60. NECK: Thick. There is no distinct jugular venous distention. LUNGS: Revealed diminished breath sounds but predominantly are clear. CARDIOVASCULAR: ____ ABDOMEN: Mildly distended without rebound or guarding. EXTREMITIES: Without cyanosis or clubbing. There is diffuse anasarca on extremities though improved from his prior examinations. LABORATORY DATA: Sodium is 140, potassium is 3.7, chloride is 105, bicarbonate is 26, BUN is 46, creatinine is 3.1. Urinary outputs remain oliguric. IMPRESSION: An 80-year-old male with complex history with issues which include systolic heart failure, cardiorenal syndrome, chronic atrial fibrillation with difficult to control ventricular response rates, complex coronary artery disease with ischemic cardiomyopathy, acute renal insufficiency, pseudomonas sepsis. The patient is status post defibrillator implantation 03/12/2016. RECOMMENDATIONS: The patient has manifested improved hemodynamics. Will reinstitute low dose beta mansi with Toprol XL 12.5 mg per day. Continue amiodarone as previously prescribed. We will follow the patient.
--- NOTE | 2016-03-25 14:58 | Pharmacy Progress Note ---
Glycemic: Assessment & Plan Date of Service Mar 25, 2016. Assessment & Plan Item Value Date Time Bedside Glucose 254 mg/dl H 03/25/16 1136 Bedside Glucose 215 mg/dl H 03/25/16 0743 Bedside Glucose 205 mg/dl H 03/25/16 0447 Bedside Glucose 175 mg/dl H 03/25/16 0102 Bedside Glucose 203 mg/dl H 03/24/16 1954 Bedside Glucose 166 mg/dl H 03/24/16 1127 Bedside Glucose 196 mg/dl H 03/24/16 0751 PLAN: Peptamen TF @ goal (60cc/hr). Will add scheduled dose of Novolog to cover CHO's in TF. * Basal insulin: Not ordered at this time * Correctional Insulin: Novolog Correction per scale q 4 hours Goal Range: Low 140 mg/dL - High 180 mg/dL Correction Factor: 30 mg/dL/unit * TF insulin: Novolog 2 units sq every 4 hours. Hold if TF on hold Pharmacy will continue to monitor patient daily and write orders per [facility] inpatient glycemic control protocol. Thanks. * Please note that the plan above was derived based on current level of insulin resistance and hospital stress. These recommendations are appropriate for inpatient admission only. Plan of care upon discharge will need to be reassessed to avoid potential outpatient hypo/hyperglycemia.
[2016-03-25] MEDS: PEPTAMEN INTENSE VHP 1000ML BAG NG SCH (15:23)
--- NOTE | 2016-03-25 16:45 | Critical Care Progress Note ---
Critical Care Progress Note Date of Service Mar 25, 2016. Attending Dr. Graves Subjective Patient complains of generalized fatigue otherwise no kimber chest pain or exertional dyspnea Objective Date Time Temp Pulse Resp B/P Pulse Ox O2 Delivery O2 Flow Rate FiO2 03/21/16 09:00 97 13 105/56 97 Room Air 03/21/16 08:29 104 14 105/64 95 Room Air 03/21/16 08:00 Room Air 03/21/16 07:59 36.7 111 15 118/59 95 Room Air 03/21/16 07:29 96 13 106/33 91 Room Air 03/21/16 06:00 93 18 100/68 93 Room Air 03/21/16 04:00 36.8 83 14 97/43 94 Room Air 03/21/16 04:00 94 Room Air 03/21/16 02:00 99 19 117/49 96 Room Air 03/21/16 00:00 99 12 93/53 96 Room Air 03/20/16 23:59 96 Room Air 03/20/16 22:00 96 17 105/52 93 Room Air 03/20/16 20:00 95 Room Air 03/20/16 20:00 36.8 105 15 104/60 93 Room Air 03/20/16 18:00 95 20 90/58 93 Room Air 03/20/16 16:00 Room Air 03/20/16 16:00 36.9 84 17 87/40 97 Room Air 03/20/16 15:29 99 17 98/40 94 Room Air 03/20/16 15:11 89 15 95/41 03/20/16 15:08 94 22 87/53 03/20/16 15:05 89 23 108/51 03/20/16 14:59 103 17 117/65 03/20/16 14:29 90 18 109/59 94 Room Air 03/20/16 13:59 83 16 89/42 92 Room Air 03/20/16 12:59 85 15 93/50 96 Room Air 03/20/16 12:29 89 16 98/61 94 Room Air METER/RELAY TECHNICIAN: AAOx 3 but lethargic. No focal deficit HEENT: PERRL. Throat is clean, no thrush Pupils: Equal round reactive, Focal Signs: None Respiratory: Scattered rhonchi bilaterally Cardiovascular: S1-S2 occasional extrasystoles no murmurs rubs gallops Rhythm: paced Abdomen: Soft, non-tender, non-distended Ext: Right hemodialysis catheter present and femoral pain. 24-Hour Column 03/21/16 08:00 Intake Total 1519 ml Output Total 875 ml Balance 644 ml Assessment & Plan 80 year-old male with advanced cardiomyopathy, s/p PPM/Bi-V ICD. Now with Pseudomonas bacteremia, PICC removed. JOSUÉ A-fib H/o pancreatic CA, s/p Whipple DM H/o CVA Plan: METER/RELAY TECHNICIAN: Metabolic encephalopathy secondary to uremia, continue improvement with decreasing uremia CVS: Hypotension: Resolved s S/p Bi-V ICD on 03/12/16 Continue Plavix. Warfarin on hold for now. Plan for possible tunneled hemodialysis cath Saturday Continue Amiodarone Metoprolol restarted Pulmonary: Elevate head ID: Pseudomonas sensitivities reviewed. Abx tailored to Cefepime for now. Repeat blood cultures from 03/20 negative to date, will treat 14 days from at this point PICC removed I personally removed the Right femoral hemodialysis catheter, plan tunneled cath Saturday. Renal/Metabolic: Urine output improving Monitor creatinine and urine output. GI: S/p NGT, failed swallow eval Having difficulty giving pancreatic enzymes via NG tube, change formulation to elemental - increase to goal feeding, adding protein Heme: To eventually resume anticoagulation Platelets recovered Endo: On insulin protocol DVT prophylaxis: ICDs Stable for downgrade of care Data Medications: Current Inpatient Medications Medications (Trade) Dose Ordered Sig/Quoc Route Start Time Stop Time Status Last Admin Dose Admin Nitroglycerin (Nitrostat Tab) 0.4 mg UD PRN SL 03/08/16 17:00 04/07/16 16:59 03/14/16 08:34 0.4 MG Glucose (Glucose 40% Gel) 15-30 GRAMS 15 GRAMS... UD PRN PO 03/08/16 17:15 04/07/16 17:14 Glucose (Glucose Chew Tab) 4-8 Tablets 4 Tabl... UD PRN PO 03/08/16 17:15 04/07/16 17:14 Dextrose (Dextrose 50% 50ML Syringe) 25-50ML OF 50% DW IV FOR... UD PRN IV 03/08/16 17:15 04/07/16 17:14 03/21/16 18:22 50 ML Glucagon (Glucagon Inj) 1 mg UD PRN SQ 03/08/16 17:15 04/07/16 17:14 Miscellaneous Information (Consult Glycemic Management Pharmacy) 1 ea UD PRN N/A 03/08/16 19:45 04/07/16 19:44 Atorvastatin Calcium (Lipitor Tab) 10 mg DAILY PO 03/09/16 09:00 04/08/16 08:59 03/25/16 09:27 10 MG Clopidogrel Bisulfate (plAVix TAB) 75 mg DAILY PO 03/09/16 09:00 04/08/16 08:59 Future hold 03/25/16 09:27 75 MG Fluticasone Propionate (Flonase Nasal [place]) 2 sprays DAILY RICHA 03/09/16 09:00 04/08/16 08:59 03/25/16 09:29 2 SPRAYS Levalbuterol (Xopenex Hfa Inhaler) 2 puffs Q4H PRN INH 03/08/16 17:30 04/07/16 17:29 Sertraline HCl (Zoloft Tab) 25 mg DAILY PO 03/09/16 09:00 04/08/16 08:59 03/25/16 09:28 25 MG Miscellaneous Information (Order Awaiting Action) 1 ea QS N/A 03/08/16 19:45 04/07/16 19:44 Amylase/Lipase/ Protease (Pancreaze (Lipase 10,500U) Cap) 2 cap TIDM PO 03/09/16 07:15 04/08/16 07:29 Future Hold 03/23/16 11:40 2 CAP Amylase/Lipase/ Protease (Pancreaze (Lipase 10,500U) Cap) 1-2 CAPS WITH SNACKS UD PRN PO 03/08/16 19:45 04/07/16 19:44 Polyethylene (Miralax Powder Packet) 17 gm Q6H PRN PO 03/10/16 21:15 04/09/16 21:14 03/24/16 14:22 17 GM Acetaminophen/ Codeine Phosphate (Tylenol w/ Codeine #3 Tab) 1 tab for pain scale 4-6 2 t... Q4H PRN PO 03/12/16 09:30 04/11/16 09:29 03/20/16 21:03 2 TAB Acetaminophen (Tylenol Tab) 650 mg Q4H PRN PO 03/12/16 09:30 04/11/16 09:29 03/20/16 22:59 650 MG Warfarin Sodium (Coumadin Tab) 2.5 mg DAILY@16 PO 03/13/16 16:00 04/12/16 15:59 Future Hold 03/15/16 16:39 2.5 MG Ondansetron HCl (Zofran Inj) 4 mg Q4H PRN IV 03/14/16 08:45 04/13/16 08:44 03/16/16 16:05 4 MG Amiodarone HCl (Cordarone Tab) 200 mg BIDM PO 03/14/16 16:30 04/13/16 16:29 03/25/16 07:56 200 MG Bisacodyl (Dulcolax Supp) 10 mg DAILY PRN [place] 03/16/16 09:45 04/15/16 09:44 Future Hold 03/17/16 10:10 10 MG Polyethylene (Miralax Powder Packet) 17 gm BID PO 03/17/16 09:00 04/16/16 08:59 Future Hold 03/22/16 16:52 17 GM Cefepime HCl 1 ea 1 ea UD PRN N/A 03/19/16 10:15 04/18/16 10:14 Cefepime HCl/ Dextrose (Maxipime IV/D5 100ml) 105.65 ml @ 200 mls/ hr Q24H IV 03/20/16 20:00 03/29/16 19:59 03/24/16 20:06 200 MLS/HR Calcitriol 0.25 mcg 0.25 mcg MoWeFr@0900 PO 03/21/16 09:00 04/20/16 08:59 03/21/16 07:58 0.25 MCG Norepinephrine Bitartrate/ Dextrose (Levophed Inj/ D5W 500ml) 508 ml @ 0 mls/hr Q0M PRN IV 03/21/16 10:45 04/20/16 10:44 03/21/16 23:59 53.4 MLS/HR Docusate Sodium (coLACE SYRUP) 100 mg BID PO 03/22/16 21:00 04/21/16 20:59 Future Hold 03/22/16 16:52 100 MG Lansoprazole (Prevacid Solutab) 30 mg QAM PO 03/23/16 09:00 04/22/16 08:59 03/25/16 09:28 30 MG Ascorbic Acid (Vitamin C Tab) 1,000 mg QAM PO 03/24/16 09:00 04/23/16 08:59 03/25/16 09:27 1,000 MG Enteral Nutritional Formula (Peptamen Intense VHP) 1,000 ml CONTINUOUS NG 03/23/16 11:45 04/22/16 11:44 03/25/16 15:23 1,000 ML Insulin Aspart SLIDING SCALE G... Q4 SC 03/23/16 16:00 04/22/16 15:59 03/25/16 15:54 2 UNITS Acetaminophen (Ofirmev Iv) 100 ml @ 400 mls/hr Q8H PRN IV 03/23/16 20:30 04/22/16 20:29 03/24/16 14:21 400 MLS/HR Glutamine (Glutasolve) 10 gm DAILY PO 03/25/16 09:00 04/24/16 08:59 03/25/16 09:29 10 GM Metoprolol Succinate (Toprol Xl Tab) 12.5 mg QAM PO 03/26/16 09:00 04/25/16 08:59 Insulin Aspart (novoLOG ASPART) 2 units Q4 SC 03/25/16 16:00 04/24/16 15:59 03/25/16 15:55 2 UNITS I & O: 24-Hour Column 03/25/16 07:59 Intake Total 1115 ml Output Total 850 ml Balance 265 ml Vital Signs: Date Time Temp Pulse Resp B/P Pulse Ox O2 Delivery O2 Flow Rate FiO2 03/25/16 16:02 36.9 103 16 98 03/25/16 15:39 36.9 103 16 130/78 98 Room Air 03/25/16 14:09 36.8 101 20 96 2.0 03/25/16 14:00 101 20 96 03/25/16 13:59 95 13 119/69 98 03/25/16 13:30 119 19 96 03/25/16 13:00 87 9 99 03/25/16 12:59 104 10 101/67 97 03/25/16 12:30 105 10 97 03/25/16 12:16 94 Room Air 03/25/16 12:00 36.8 95 15 96 03/25/16 12:00 95 15 96 03/25/16 11:59 99 17 109/69 97 03/25/16 11:30 102 23 96 03/25/16 11:00 102 22 95 03/25/16 10:59 110 12 115/62 95 03/25/16 10:30 114 26 98 03/25/16 10:00 120 13 97 03/25/16 09:59 102 17 117/68 99 03/25/16 09:30 108 14 97 03/25/16 09:00 112 14 96 03/25/16 08:59 95 13 119/66 99 03/25/16 08:30 111 12 97 03/25/16 08:00 36.8 118 19 117/60 97 Room Air 03/25/16 08:00 104 19 96 03/25/16 08:00 97 Room Air 03/25/16 05:59 117 10 105/64 97 Room Air 03/25/16 05:29 113 8 103/65 97 Room Air 03/25/16 04:25 97 Room Air 03/25/16 03:59 111 17 104/66 97 Room Air 03/25/16 02:59 102 13 100/71 96 Room Air 03/25/16 01:59 114 24 118/60 99 Room Air 03/25/16 00:59 119 11 129/62 98 Room Air 03/25/16 00:17 97 Room Air 03/24/16 23:59 105 12 118/63 97 Room Air 03/24/16 22:59 97 12 117/60 99 Room Air 03/24/16 21:59 104 12 120/54 96 Room Air 03/24/16 20:59 115 24 117/74 96 Room Air 03/24/16 20:41 99 Room Air 03/24/16 20:00 112 23 98 Room Air 03/24/16 19:59 119 16 122/64 92 Room Air 03/24/16 19:00 112 15 99 Room Air 03/24/16 18:00 107 16 110/66 93 Room Air Laboratory Results: Last 24 Hours Test 03/24/16 19:54 03/25/16 01:02 03/25/16 04:47 03/25/16 05:17 Bedside Glucose 203 mg/dl 175 mg/dl 205 mg/dl White Blood Count 10.56 K/uL Red Blood Count 2.96 M/uL Hemoglobin 8.9 g/dL Hematocrit 25.7 % Mean Corpuscular Volume 86.8 fL Mean Corpuscular Hemoglobin 30.1 pg Mean Corpuscular Hemoglobin Concent 34.6 g/dl RDW Standard Deviation 55.3 fL RDW Coefficient of Variation 17.8 % Platelet Count 178 K/uL Mean Platelet Volume 10.3 fL Prothrombin Time 17.3 SECONDS Prothromb Time International Ratio 1.6 Sodium Level 140 mmol/L Potassium Level 3.7 mmol/L Chloride Level 105 mmol/L Carbon Dioxide Level 26 mmol/L Anion Gap 9.0 mmol/L Blood Urea Nitrogen 46 mg/dl Creatinine 3.10 mg/dl Est Creatinine Clear Calc Drug Dose 21.4 ml/min Estimated GFR () 20.7 Estimated GFR (Non- 17.9 BUN/Creatinine Ratio 14.9 Random Glucose 207 mg/dl Calcium Level 7.8 mg/dl Test 03/25/16 07:43 03/25/16 11:36 Bedside Glucose 215 mg/dl 254 mg/dl
[2016-03-25] MEDS: CEFEPIME IV 500 MG in DEXTROSE 5% 100ML 100 ML IV SCH (20:09)
[2016-03-26] VITALS (24 sets, daily range): BP systolic 81–124; BP diastolic 50–72; PULSE 74–111; TEMP 36.2–37.2; O2SAT 95–100
[2016-03-26] MEDS: INSULIN ASPART 100 UNITS/ML 3 ML PEN SC SCH ×15 (00:14→23:59)
[2016-03-26 07:33] LABS: HEMATOCRIT 24.3 % (42-52); MEAN CORPUSCULAR HEMOGLOBIN 29.7 pg (25-34); MEAN CORPUSCULAR HGB CONC 33.3 g/dl (32-36); MEAN PLATELET VOLUME 10.3 fL (7.4-10.4); PLATELET COUNT 209 K/uL (130-400); RED BLOOD COUNT 2.73 M/uL (4.7-6.1); WHITE BLOOD COUNT 11.29 K/uL (4.8-10.8)
[2016-03-26 07:45] LABS: INR 1.3 (0.9-1.1)
[2016-03-26] MEDS ORDERED: ALBUMIN HUMAN 25% 12.5 GM/50 ML VIAL IV SCH (08:00)
[2016-03-26] MEDS ORDERED: EPOETIN ALFA 10,000 UNITS/ML VIAL IV. SCH (08:00)
[2016-03-26] MEDS: INSULIN GLARGINE SOLOSTAR 100 UNITS/ML 3 ML PEN SC SCH (08:07)
[2016-03-26] MEDS: ASCORBIC ACID 500 MG TAB PO SCH (08:08)
[2016-03-26] MEDS: CLOPIDOGREL BISULFATE 75 MG TAB PO SCH (08:08)
[2016-03-26] MEDS: AMIODARONE 200 MG TAB PO SCH ×2 (08:08→16:46)
[2016-03-26] MEDS: FLUTICASONE PROPIONATE NA SPR 16 GM BTL NAE SCH (08:09)
[2016-03-26 08:10] LABS: BUN/CREATININE RATIO 16.8 (10-20); CALCIUM 7.9 mg/dl (8.5-10.1); CREATININE 3.5 mg/dl (0.60-1.40); POTASSIUM 4.1 mmol/L (3.5-5.1)
[2016-03-26] MEDS: GLUTAMINE 15 GM PO SCH (08:10)
[2016-03-26] MEDS: ATORVASTATIN 10 MG TAB PO SCH (08:10)
[2016-03-26] MEDS: LANSOPRAZOLE SOLUTAB 30 MG PO SCH (08:10)
[2016-03-26] MEDS: SERTRALINE HCL 50 MG TAB PO SCH (08:10)
[2016-03-26] MEDS: CALCITRIOL 0.25 MCG CAP PO SCH (08:10)
[2016-03-26] MEDS ORDERED: METOPROLOL SUCC 25MG EXT REL TAB PO SCH ×2 (09:00→21:00)
[2016-03-26] MEDS ORDERED: METOPROLOL SUCC 25MG EXT REL TAB PO ONE (10:00)
--- NOTE | 2016-03-26 10:20 | Surgery Consultation ---
Consultation Date of Service Mar 26, 2016. Chief Complaint Acute renal failure History of Present Illness The patient is a 80 year old male admitted with syncopal episode and developed acute renal failure. Dialysis was started via a temporary groin catheter which was pulled yesterday. For permcath insertion today. Vitals Vital Signs Past 12 Hours Date Time Temp Pulse Resp B/P Pulse Ox O2 Delivery O2 Flow Rate FiO2 03/26/16 08:03 36.5 101 20 116/61 100 Room Air 03/26/16 08:00 Room Air 03/26/16 04:00 Room Air 03/26/16 03:33 36.8 93 18 124/72 95 Room Air 03/26/16 00:00 Room Air 03/25/16 23:07 36.8 107 18 112/69 99 Room Air Allergies Coded Allergies: Lisinopril (Verified Allergy, Unknown, RASH, 06/24/15) Spironolactone (Verified Allergy, Unknown, unkn, 06/24/15) Zolpidem (Verified Adverse Reaction, Unknown, HALLUCINATIONS, 06/24/15) Home Medications Scheduled Ascorbic Acid (Vitamin C), 500 MG PO DAILY Atorvastatin (Lipitor), 10 MG PO DAILY Calcitriol (Rocaltrol Cap), 0.25 MCG PO MWF Carvedilol (Coreg), 6.25 MG PO BID Cholecalciferol (Vitamin D), 5,000 INTER.UNIT PO DAILY Clopidogrel Bisulfate (Plavix), 75 MG PO DAILY Esomeprazole Magnesium (Nexium), 40 MG PO DAILY Fluticasone Furoate-Vilanterol (Breo Ellipta), 1 PUFF INH DAILY Fluticasone Propionate (Nasal) (Flonase Allergy Relief), 2 SPRAY RICHA DAILY Insulin Aspart Protamine & Asp (Novolog Mix 70/30), 28 UNITS SC QAM Insulin Aspart Protamine & Asp (Novolog Mix 70/30), 12 UNITS SC QPM Magnesium Chloride (Mag64), 1 TAB PO DAILY Multiple Vitamins W/ Minerals (Centrum Silver Ultra Mens), 1 TABLET PO DAILY Nitroglycerin (Nitrostat), 0.4 MG UT PRN Pancrelipase (Lipase-Protease- (Creon 38083), 3 CAP PO with each meal Pancrelipase (Lipase-Protease- (Creon 99248), 1-2 CAP PO WITH SNACKS Potassium Chloride (Micro-K Ext Rel), 10 MEQ PO DAILY Sacubitril-Valsartan (Entresto 24-26 mg), 1 TAB PO BID Sertraline (Zoloft), 25 MG PO DAILY Tamsulosin Hcl (Flomax), 0.4 MG PO DAILY Torsemide (Demadex), 20 MG PO UD Warfarin Sodium (Coumadin), 3 MG PO UD Warfarin Sodium (Coumadin), 1.5 MG PO UD Scheduled PRN Levalbuterol (Xopenex Hfa), 2 PUFFS INH Q4H PRN for SOB/COUGH/WHEEZING Problem List Medical Problems: (1) Afib (2) BPH (benign prostatic hyperplasia) (3) CAD (coronary artery disease) (4) CHF (congestive heart failure) (5) CKD (chronic kidney disease), stage III (6) COPD (chronic obstructive pulmonary disease) (7) Current use of care home anticoagulation (8) CVA (cerebral vascular accident) (9) Depression (10) DM2 (diabetes mellitus, type 2) (11) GERD (gastroesophageal reflux disease) (12) HLD (hyperlipidemia) (13) HTN (hypertension) (14) Pancreatic cancer (15) Pancreatic insufficiency (16) Pseudomonas septicemia Surgical Problems: (1) H/O cervical spine surgery (2) H/O hernia repair (3) H/O percutaneous transluminal coronary angioplasty (4) History of cardiac cath (5) History of hip replacement (6) S/P cholecystectomy (7) S/P hip replacement (8) Stented coronary artery Surgical / Medical History Hx Cardiac Surgery: Yes (stents, heart valve) Hx Abdominal Surgery: Yes (whipple) Hx Cancer Surgery: Yes (WHIPPLE, PARTIAL PANCREATECTOMY, PARTAIL GASTRECTOMY) Hx Thoracic Surgery: No Hx Orthopedic: Yes (B/L CELINE, NECK) Hx Urinary Tract Surgery: Yes (KIDNEY STONES) Past Medical/Surgical History: CVA/TIA, Diabetes, Heart Disease, Hypertension Family History Diabetes mellitus FH: cancer FH: gallbladder disease Heart disease Hypertension Kidney disease Lung disease Social History Smoking Status: Former Smoker Hx Tobacco Use In Past Year?: No Hx Alcohol Use - Type & Amnt: No Hx Substance Use -Type & Amnt: No Review of Systems Constitutional: No chills, No diaphoresis, No fatigue, No fever, No malaise, No problem reported, No sweats, No weakness, No weight gain, No weight loss Respiratory: No FAM, No PND, No cough, No cyanosis, No dyspnea, No hemoptysis, No orthopnea, No problem reported, No short of breath, No sputum production, No stridor, No wheezing Cardiovascular: No chest pain, No chest pressure, No chest tightness, No cyanosis, No diaphoresis, No edema, No intermittent claudication, No lightheadedness, No mumur, No orthopnea, No palpitations, No paroxysmal nocturnal dyspnea, No problem reported, No syncope Gastrointestinal: No abdominal pain, No anorexia, No appetite changes, No belching, No constipation, No diarrhea, No dysphagia, No flatulence, No food intolerance, No heartburn, No hematemesis, No hematochezia, No hemorrhoids, No indigestion, No nausea, No problem reported, No rectal bleeding, No stool changes, No vomiting Musculoskeletal: No back pain, No gout, No joint pain, No joint swelling, No muscle pain, No muscle stiffness, No muscle weakness, No neck pain, No problem reported Neurologic: No LOC, No dizziness, No headache, No lethargy, No memory loss, No numbness, No paresthesia, No pre-existing deficit, No problem reported, No seizures, No tics, No tingling, No tremors, No vertigo, No weakness Physical Exam Constitutional: General Apperance: heathly-appearing, well-nourished, well-developed Level of Distress: NAD, chronically ill Ambulation: ambulating normally Psychiatric: Mental Status: active & alert, normal mood, normal affect Orientation: oriented except where noted, to time, to place, to person Memory: recent memory normal, remote memory normal Head: normocephalic, atraumatic Eyes: EOM: EOMI Lungs: Respiratory effort: good air movement Auscultation: no wheezing, decreased breath sounds Cardiovascular: Heart Auscultation: RRR Peripheral Pulses: Radial Pulse: normal on the left Femoral Pulse: normal on the left, normal on the right Abdomen: Inspection & Palpation: soft Musculoskeletal: abnormal strength Extremities: Upper Right: no cyanosis, no varicosities, no palpable cord, no clubbing, no ulcers, no mottling, edema Upper Left: no cyanosis, no varicosities, no palpable cord, no clubbing, no ulcers, no mottling, edema Lower Right: no cyanosis, no edema, no varicosities, no palpable cord, no clubbing, no ulcers, no mottling Lower Left: no cyanosis, no edema, no varicosities, no palpable cord, no clubbing, no ulcers, no mottling Neurologic: Cranial Nerves: grossly intact Sensation: grossly intact Assessment and Plan Imp: Acute renal failure Plan: Patient for insertion of permcath today. I have discussed the risks options and benefits of the procedure with the patient. The patient understands the risks options and benefits and agrees to the procedure. Thank you very much for letting me participate in the care of this patient.
--- NOTE | 2016-03-26 10:21 | Procedure Note ---
Pre-Mod Sedation Assessment General Date of Moderate Sedation: Mar 26, 2016. Vital Signs: Vital Signs Past 12 Hours Date Time Temp Pulse Resp B/P Pulse Ox O2 Delivery O2 Flow Rate FiO2 03/26/16 08:03 36.5 101 20 116/61 100 Room Air 03/26/16 08:00 Room Air 03/26/16 04:00 Room Air 03/26/16 03:33 36.8 93 18 124/72 95 Room Air 03/26/16 00:00 Room Air 03/25/16 23:07 36.8 107 18 112/69 99 Room Air Review Cardiovascular: + irregularly irregular Abdomen: normal bowel sounds Lungs: lungs clear Pre-Sedation Airway Assessment Oral Cavity: Dental Abnormalities Smoking Status: Former Smoker Mallampati Classification: Class I ASA Classification: Class II Notes The planned sedation has been discussed with the patient and consent obtained. I have identified the patient, determined the appropriateness of sedation and have assessed the patient immediately prior to the procedure. All medicine(s) and interventions are by my order.
[2016-03-26] MEDS ORDERED: FENTANYL CITRATE INJ 50 MCG/1 ML 2 ML VIAL ONE (10:27)
[2016-03-26] MEDS ORDERED: MIDAZOLAM HCL 1 MG/ML 2ML VIAL ONE (10:27)
--- NOTE | 2016-03-26 10:33 | Pharmacy Progress Note ---
Glycemic Control: Progress Nt Date of Service Mar 26, 2016. Scope Glycemic Pharmacist consulted by Dr Lo on 03/08/16 for glycemic control and to write orders per [facility] inpatient glycemic control protocol. Objective Accuchecks BSG (last 24hrs): Test 03/25/16 11:36 03/25/16 15:37 03/25/16 20:11 03/26/16 00:01 Bedside Glucose 254 mg/dl (70-99) 221 mg/dl (70-99) 221 mg/dl (70-99) 239 mg/dl (70-99) Test 03/26/16 04:51 03/26/16 07:16 03/26/16 07:52 Bedside Glucose 243 mg/dl (70-99) 211 mg/dl (70-99) Random Glucose 201 mg/dl (70-99) Laboratory Data (last 24hrs) Test 03/26/16 07:16 Anion Gap 8.0 mmol/L BUN/Creatinine Ratio 16.8 Blood Urea Nitrogen 59 mg/dl Creatinine 3.50 mg/dl Potassium Level 4.1 mmol/L Sodium Level 140 mmol/L White Blood Count 11.29 K/uL HbA1c: Test 03/09/16 05:46 Hemoglobin A1c 8.2 % (4.5-5.6) H Recent Pertinent Medications Outpatient Anti-diabetic Regimen: * Novolog 70/30 mix 28 units w/ breakfast + 12 units with dinner * A1c = 8.2 % 03/09/16 The patient is currently receiving: * Basal insulin: None * Correctional Insulin: Novolog Correction per scale Q 4 hrs Goal Range: Low 140 mg/dL - High 180 mg/dL Correction Factor: 30 mg/dL/unit * Prandial insulin: Novolog 2 units SQ Q 4 hrs to cover CHO's in tube feeds * Oral Agents: None currently Risk Factors for Insulin Resistance: * Steroids: n/a * Infection: pseudomonas aeruginosa sepsis/bacteremia; receiving cefepime ( renally dosed) * Recent Surgery: ICD placement on 03/12 * Diet: receiving Peptamen Bariatric TF at 60cc/hr (goal); delivers ~18-19gm CHO every 4 hours Assessment & Plan ASSESSMENT: 03/23/16 * Glycemic control did deteriorate yesterday with the initiation of tube feeds ( BSGs peaked in low 200's) * Today his tube feeds were changed to a formula that will deliver fewer carbs ( a little less than half the prior formula's carb content) -- this may lead to improved glycemic control * Usually we would add a scheduled dose of rapid acting insulin ATC to cover carbs delivered in continuous tube feeds, but given uncertainty of insulin requirements with lower-carb TFs I feel that it's best we wait 24 hours and cover with correctional insulin only in the interim. Tomorrow we can add a scheduled dose of Novolog or Regular insulin to cover carbs in these feeds. * There was discussion today that norepi may be titrated down today if tolerated , and if not he may receive a dose of dexamethasone and possibly a cosyntropin stim test in the AM...this will lead to increased insulin resistance and we may need to escalate insulin doses as a result. * Will check BSGs more frequently (Q 4 hrs) for now given variables in motion that could change glycemic control for the better or worse 03/26/16 * Patient did begin scheduled Novolog Q 4 hrs to cover CHO's in tube feeds yesterday afternoon. Despite this BSGs have remained at the same level ~200- 240. Will increase this prandial insulin dose, but will also add some basal insulin at this time. This patient required ~40 units of insulin per day in the form of 70/30 insulin. Will keep the basal insulin dose low at this time as a precaution as excess basal insulin can lead to hypoglycemia if tube feeds are d/c'd abruptly. * Will continue Q 4 hr BSGs and coverage with Novolog CF and scheduled prandial dose today; however I would like to transition to Q 6 hr Regular insulin soon for patient convenience. PLAN FOR INPATIENT GLYCEMIC CONTROL: * Begin Lantus 5 units SQ Q AM * Correctional Insulin with NOVOLOG Q 4 hrs * Change Goal Range to Low 120 mg/dL - High 180 mg/dL * Continue Correction Factor of 30 mg/dL/unit * Increase Novolog to 4 units SQ Q 4 hrs to be given while patient received Peptamen Lars TF's at the current rate; this dose should be held if TFs are held. * Please note that the plan above was derived based on current level of insulin resistance and hospital stress. These recommendations are appropriate for inpatient admission only. Plan of care upon discharge will need to be reassessed to avoid potential outpatient hypo/hyperglycemia. Thank you.
--- NOTE | 2016-03-26 10:54 | CARDIOLOGY PROGRESS NOTE ---
DATE: 03/26/2016 The patient seen and examined. Chart, medications, telemetry reviewed. SUBJECTIVE: The patient examined, sitting out of bed in chair this morning, feels slightly better. Still receiving tube feeds for nutrition. Has been moving bowels. Notes no chest pains. Notes no dizziness. Notes no syncope or near syncope. OBJECTIVE: VITAL SIGNS: Heart rate is 100, blood pressure is 116/61. NECK: There is no distinct jugular venous distention. LUNGS: Reveal diminished breath sounds, but better aeration at the baseline. CARDIOVASCULAR: Regular with frequent ventricular ectopy. Pacer defibrillator sites without irritation. ABDOMEN: Soft. EXTREMITIES: Mild anasarca changes, though lessening edema. LABORATORY STUDIES: Sodium is 140, potassium is 4.1, chloride is 105, bicarbonate 27, BUN is 59, creatinine is 3.5. Hemoglobin is 8.1. Telemetry reveals complex mixed paced atrial arrhythmias and complex ventricular ectopy. PLAN: Will titrate beta mansi further increasing Toprol to 25 mg a.m., 12.5 mg p.m., as long as blood pressure allows. Continue current therapies as ordered. Will follow closely. Will need to resume warfarin when capable. The patient anticipates possible vascular procedure today.
[2016-03-26] MEDS ORDERED: HEPARIN SOD (PORCINE) 5000 UNIT/ML 1 ML VIAL ONE (10:55)
[2016-03-26] MEDS ORDERED: FENTANYL CITRATE INJ 50 MCG/1 ML 2 ML VIAL IV ONE (11:24)
[2016-03-26] MEDS ORDERED: HEPARIN SOD (PORCINE) 5000 UNIT/ML 1 ML VIAL IV ONE (11:24)
[2016-03-26] MEDS ORDERED: LIDOCAINE HCL 1% 20 ML VIAL INH ONE (11:24)
--- NOTE | 2016-03-26 11:30 | [facility] Post Operative Brief Note ---
Immediate Operative Summary Operative Date Mar 26, 2016. Pre-Operative Diagnosis Acute Renal Failure Post-Operative Diagnosis Same Procedure(s) Performed Insertion of Perm Catheter, Right Internal Jugular Approach, USN localization of Right Internal Jugular Vein, Fluoro for positioning. Surgeon Dr. Hicks Copy Preparer Surgeon(s) None Estimated Blood Loss 3 Findings tip in distal svc Specimens None Anesthesia Local Complication(s) None Disposition
[2016-03-26] MEDS: ACETAMINOPHEN/CODEINE 300/30MG TAB PO PRN (11:49)
--- NOTE | 2016-03-26 11:56 | DIAGNOSTIC IMAGING REPORT ---
DATE OF PROCEDURE: 03/26/2016 PREOPERATIVE DIAGNOSIS: Acute renal failure. POSTOPERATIVE DIAGNOSIS: Same. PROCEDURE: Insertion of right internal jugular vein PermCath, ultrasound localization of right internal jugular vein, and fluoroscopic imaging for positioning. SURGEON: Dr. Hicks. ANESTHETIC: Local. PROCEDURE INDICATIONS: The patient is an 80-year-old male that was admitted with syncopal episode and subsequently has developed renal failure. He is being dialyzed through a temporary catheter which was removed this weekend. PermCath was recommended. He understood the risks, options and benefits and agreed to have this procedure. The patient was taken to the angio suite and placed in supine position. After the right side of the neck and chest wall were prepped and draped in a sterile manner, local anesthetic was administered. Ultrasound localization of the internal jugular vein on the right side showed it to be patent with no filling defects and compressed easily. Next, a stab wound was made in the anterior chest wall. A 19-cm PermCath was inserted through the stab wound in the chest wall and brought out through the puncture site in the neck. Puncture site was dilated until a 14-Singaporean peel away sheath was inserted. Catheter was inserted through the peel away sheath and the peel away sheath removed. Both ports aspirated and flushed easily. The catheter sat in a nice curve. Both ports were instilled with heparin. Catheter was sutured to the anterior chest wall with nylon sutures. The puncture site in the neck was closed with a 4-0 subcuticular Vicryl suture and covered with Dermabond. The catheter itself was covered in the usual dressing. The patient left the angio suite in good condition and tolerated the procedure well.
--- NOTE | 2016-03-26 13:17 | Progress Note ---
Internal Med Progress Note Date of Service: Mar 26, 2016. Provider Documentation: SUBJECTIVE: Patient was transferred out of ICU on 03/25/16 Patient is doing better. Mental status: Improved- AAOX3 No fever, new cough, chest pain, nausea, vomiting, abd pain, urinary symptoms Has feeding tube + tube feedings + Wants to eat OBJECTIVE: Vital Signs-as noted below Exam: General-AAOX3, no diswtress Eyes-EOMI; no scleral icterus HEENT- Feeding tube + Neck-no JVD Lungs-coarse breath sounds anteriorly Heart-irregularly irregular Abdomen-soft; NTND; nBS Extremities-2+ peripheral pulses; 1+ le edema; edema of UE- Rt > Lt; Dialysis catheter + Neuro-no gross focal deficits Lab data as noted below. Procedures: CT head Interval right parietal infarct. No acute intracranial findings. CT c-spine Findings of severe degenerative change combined with extensive posterior laminectomy defects. No acute process is appreciated. TTE * The study was technically limited. * The left ventricle is moderately dilated. * Left ventricular systolic function is moderate to severely reduced. * Ejection Fraction = 30-35%. * The right ventricular systolic function is normal. * There is mild mitral regurgitation. Renal ultrasound 1. there is mild hydronephrosis right kidney. 2. Several left renal cyst. 3. Complex cyst mid to lower aspect right kidney. 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 Found to have symptomatic bradycardia, sick sinus syndrome, s/p biventricular pacemaker 03/12/16. Now with sepsis (febrile, rigors, hypotensive). JOSUÉ (baseline CKD stage 3) - Improving - Newly started on Dialysis on 03/23/16; Temporary dialysis catheter placed on 03/21/16. Underwent permanent dialysis catheter placement on 03/26/16 - Received albumin and IVF's with sodium bicarbonate, then intermittently diuresed with furosemide vs bumetanide given volume status - Held torsemide and Entresto (home medications) - Renal ultrasound with mild hydronephrosis, not thought to be contributory - Nephrology on board. Discussed with Dr Sifuentes METABOLIC ENCEPHALOPATHY SECONDARY TO UREMIA/SEPSIS -Resolved. AAOX3 now -Monitor SEPSIS/BACTEREMIA ( PSEUDOMONAS) - Improved - Unclear source - D/D considered: Abdominal source, UTI but negative, no pneumonia, Line in situ- sent for cultures - Afebrile - S/P IV Dopamine drip--changed to levophed later due to ventricular ectopy-- off it since 03/23/16 - Blood cx x 2- pseudomonas. Tip culture/Urine cx- negative. Repeat Blood cultures x 2 - negative - Continue with IV Cefepime per ID (To be continued x 14 days post negative repeat blood cx- Day 08/12). Lactic acid- normal SYMPTOMATIC BRADYCARDIA S/P BIVENTRICULAR PACEMAKER AICD -03/21/16 -Echo shows small circumferential pericardial effusion -EP evaluated patient- interrogated pacemaker and reprogramed the device -On amiodarone BID for Ectopy -Cardiology/EP following HISTORY OF NON ISCHEMIC CARDIOMYOPATHY - Continue atorvastatin, clopidogrel - Held carvedilol, torsemide and Entresto on admission given pressor requirement and JOSUÉ - Started Metoprolol and titrating for Tachycardia, per cardiology A FIB - Coumadin initially held for supratherapeutic INR - Coumadin then restarted post-procedure (pacemaker placement) - Coumadin back on hold for need for tunnel placement for HD- done today . To be restarted - Continued on Amiodarone BID, Toprol titration DM 2 - glycemic pharmacy consulted - continue insulin therapy URINARY RETENTION - Urology consulted - Ruff placed - Continue tamsulosin HISTORY OF CVA - continue Plavix, Atorvastatin - Coumadin on hold in case of need for line placement HISTORY OF PANCREATIC CANCER - s/p Whipple procedure - continue Pancreaze NUTRITION/ASPIRATION + Video swallow test done 03/21/16 - aspirating liquids/solids -Swallow evaluation recommends- NPO -NG tube placed- feedings + -Repeat Video swallow test today DVT prophylaxis - Coumadin on hold - SCD's DISPO PT/OT to be continued- will need rehab CODE STATUS Full code as per patient Discharge planning: Rehab hospital Discussed with by bedside. PROGNOSIS: Guarded Vital Signs: Date Time Temp Pulse Resp B/P Pulse Ox O2 Delivery O2 Flow Rate FiO2 03/26/16 13:03 36.7 111 18 98/60 98 Room Air 96 03/26/16 12:40 36.5 87 18 103/65 98 Nasal Cannula 2.0 03/26/16 12:17 36.4 109 18 108/67 99 Room Air 03/26/16 12:00 Room Air 03/26/16 11:40 36.7 88 20 107/68 97 Nasal Cannula 2.0 03/26/16 10:35 36.4 94 16 137/94 98 Room Air 03/26/16 08:03 36.5 101 20 116/61 100 Room Air 03/26/16 08:00 Room Air 03/26/16 04:00 Room Air 03/26/16 03:33 36.8 93 18 124/72 95 Room Air 03/26/16 00:00 Room Air 03/25/16 23:07 36.8 107 18 112/69 99 Room Air 03/25/16 20:00 96 Room Air 03/25/16 19:46 36.8 105 18 149/75 96 Room Air 03/25/16 16:30 98 Room Air 03/25/16 16:02 36.9 103 16 98 03/25/16 15:39 36.9 103 16 130/78 98 Room Air 03/25/16 14:09 36.8 101 20 96 2.0 03/25/16 14:00 101 20 96 03/25/16 13:59 95 13 119/69 98 03/25/16 13:30 119 19 96 Lab Results: Results Past 24 Hours Test 03/25/16 15:37 03/25/16 20:11 03/26/16 00:01 03/26/16 04:51 Range/Units Bedside Glucose 221 221 239 243 70-99 mg/dl Test 03/26/16 07:16 03/26/16 07:52 03/26/16 11:51 Range/Units White Blood Count 11.29 4.8-10.8 K/uL Red Blood Count 2.73 4.7-6.1 M/uL Hemoglobin 8.1 14.0-18.0 g/dL Hematocrit 24.3 42-52 % Mean Corpuscular Volume 89.0 80-100 fL Mean Corpuscular Hemoglobin 29.7 25-34 pg Mean Corpuscular Hemoglobin Concent 33.3 32-36 g/dl RDW Standard Deviation 59.0 36.4-46.3 fL RDW Coefficient of Variation 18.1 11.5-14.5 % Platelet Count 209 130-400 K/uL Mean Platelet Volume 10.3 7.4-10.4 fL Prothrombin Time 14.0 9.0-12.0 SECONDS Prothromb Time International Ratio 1.3 0.9-1.1 Sodium Level 140 136-145 mmol/L Potassium Level 4.1 3.5-5.1 mmol/L Chloride Level 105 98-107 mmol/L Carbon Dioxide Level 27 21-32 mmol/L Anion Gap 8.0 3-11 mmol/L Blood Urea Nitrogen 59 7-18 mg/dl Creatinine 3.50 0.60-1.40 mg/dl Est Creatinine Clear Calc Drug Dose 18.9 ml/min Estimated GFR () 17.9 Estimated GFR (Non- 15.5 BUN/Creatinine Ratio 16.8 10-20 Random Glucose 201 70-99 mg/dl Calcium Level 7.9 8.5-10.1 mg/dl Bedside Glucose 211 167 70-99 mg/dl
--- NOTE | 2016-03-26 14:38 | Dialysis Progress Note ---
Nephrology Dialysis Note Date of Service: Mar 26, 2016. Subjective 80 yo male with regis/atn on dialysis. had new dialysis tunneled line placed today. seen on dialysis. flows are good. pt with dobhoff tube in place and still having issues with swallowing. Objective Date Time Temp Pulse Resp B/P Pulse Ox O2 Delivery O2 Flow Rate FiO2 03/26/16 14:00 36.6 97 18 118/69 96 Room Air 03/26/16 13:03 36.7 111 18 98/60 98 Room Air 96 03/26/16 12:40 36.5 87 18 103/65 98 Nasal Cannula 2.0 03/26/16 12:17 36.4 109 18 108/67 99 Room Air 03/26/16 12:00 Room Air 03/26/16 11:40 36.7 88 20 107/68 97 Nasal Cannula 2.0 03/26/16 10:35 36.4 94 16 137/94 98 Room Air 03/26/16 08:03 36.5 101 20 116/61 100 Room Air 03/26/16 08:00 Room Air 03/26/16 04:00 Room Air 03/26/16 03:33 36.8 93 18 124/72 95 Room Air 03/26/16 00:00 Room Air 03/25/16 23:07 36.8 107 18 112/69 99 Room Air 03/25/16 20:00 96 Room Air 03/25/16 19:46 36.8 105 18 149/75 96 Room Air 03/25/16 16:30 98 Room Air 03/25/16 16:02 36.9 103 16 98 03/25/16 15:39 36.9 103 16 130/78 98 Room Air Physical Exam: General-aaox3 Eyes-no sceral icterus ENT-mmm, +ng tube Neck-supple Lungs-clear Heart-irregular, tachy Abdomen-bs+ s/nt/nd Extremities-+2 edema Neuro-nonfocal Current Inpatient Medications Medications (Trade) Dose Ordered Sig/Quoc Route Start Time Stop Time Status Last Admin Dose Admin Nitroglycerin (Nitrostat Tab) 0.4 mg UD PRN SL 03/08/16 17:00 04/07/16 16:59 03/14/16 08:34 0.4 MG Glucose (Glucose 40% Gel) 15-30 GRAMS 15 GRAMS... UD PRN PO 03/08/16 17:15 04/07/16 17:14 Glucose (Glucose Chew Tab) 4-8 Tablets 4 Tabl... UD PRN PO 03/08/16 17:15 04/07/16 17:14 Dextrose (Dextrose 50% 50ML Syringe) 25-50ML OF 50% DW IV FOR... UD PRN IV 03/08/16 17:15 04/07/16 17:14 03/21/16 18:22 50 ML Glucagon (Glucagon Inj) 1 mg UD PRN SQ 03/08/16 17:15 04/07/16 17:14 Miscellaneous Information (Consult Glycemic Management Pharmacy) 1 ea UD PRN N/A 03/08/16 19:45 04/07/16 19:44 Atorvastatin Calcium (Lipitor Tab) 10 mg DAILY PO 03/09/16 09:00 04/08/16 08:59 03/26/16 08:10 10 MG Clopidogrel Bisulfate (plAVix TAB) 75 mg DAILY PO 03/09/16 09:00 04/08/16 08:59 Future hold 03/26/16 08:08 75 MG Fluticasone Propionate (Flonase Nasal Spicer) 2 sprays DAILY RICHA 03/09/16 09:00 04/08/16 08:59 03/26/16 08:09 2 SPRAYS Levalbuterol (Xopenex Hfa Inhaler) 2 puffs Q4H PRN INH 03/08/16 17:30 04/07/16 17:29 Sertraline HCl (Zoloft Tab) 25 mg DAILY PO 03/09/16 09:00 04/08/16 08:59 03/26/16 08:10 25 MG Miscellaneous Information (Order Awaiting Action) 1 ea QS N/A 03/08/16 19:45 04/07/16 19:44 Amylase/Lipase/ Protease (Pancreaze (Lipase 10,500U) Cap) 2 cap TIDM PO 03/09/16 07:15 04/08/16 07:29 Future Hold 03/23/16 11:40 2 CAP Amylase/Lipase/ Protease (Pancreaze (Lipase 10,500U) Cap) 1-2 CAPS WITH SNACKS UD PRN PO 03/08/16 19:45 04/07/16 19:44 Polyethylene (Miralax Powder Packet) 17 gm Q6H PRN PO 03/10/16 21:15 04/09/16 21:14 03/24/16 14:22 17 GM Acetaminophen (Tylenol Tab) 650 mg Q4H PRN PO 03/12/16 09:30 04/11/16 09:29 03/20/16 22:59 650 MG Warfarin Sodium (Coumadin Tab) 2.5 mg DAILY@16 PO 03/13/16 16:00 04/12/16 15:59 Future Hold 03/15/16 16:39 2.5 MG Ondansetron HCl (Zofran Inj) 4 mg Q4H PRN IV 03/14/16 08:45 04/13/16 08:44 03/16/16 16:05 4 MG Amiodarone HCl (Cordarone Tab) 200 mg BIDM PO 03/14/16 16:30 04/13/16 16:29 03/26/16 08:08 200 MG Bisacodyl (Dulcolax Supp) 10 mg DAILY PRN DE 03/16/16 09:45 04/15/16 09:44 Future Hold 03/17/16 10:10 10 MG Polyethylene (Miralax Powder Packet) 17 gm BID PO 03/17/16 09:00 04/16/16 08:59 Future Hold 03/22/16 16:52 17 GM Cefepime HCl 1 ea 1 ea UD PRN N/A 03/19/16 10:15 04/18/16 10:14 Cefepime HCl/ Dextrose (Maxipime IV/D5 100ml) 105.65 ml @ 200 mls/ hr Q24H IV 03/20/16 20:00 03/29/16 19:59 03/25/16 20:09 200 MLS/HR Calcitriol (Rocaltrol Cap) 0.25 mcg MoWeFr@0900 PO 03/21/16 09:00 04/20/16 08:59 03/26/16 08:10 0.25 MCG Docusate Sodium (coLACE SYRUP) 100 mg BID PO 03/22/16 21:00 04/21/16 20:59 Future Hold 03/22/16 16:52 100 MG Lansoprazole (Prevacid Solutab) 30 mg QAM PO 03/23/16 09:00 04/22/16 08:59 12/26/16 08:10 30 MG Ascorbic Acid (Vitamin C Tab) 1,000 mg QAM PO 03/24/16 09:00 04/23/16 08:59 03/26/16 08:08 1,000 MG Enteral Nutritional Formula (Peptamen Intense VHP) 1,000 ml CONTINUOUS NG 03/23/16 11:45 04/22/16 11:44 03/25/16 15:23 1,000 ML Insulin Aspart SLIDING SCALE G... Q4 SC 03/23/16 16:00 04/22/16 15:59 03/26/16 12:10 1 UNITS Acetaminophen (Ofirmev Iv) 100 ml @ 400 mls/hr Q8H PRN IV 03/23/16 20:30 04/22/16 20:29 03/24/16 14:21 400 MLS/HR Glutamine (Glutasolve) 10 gm DAILY PO 03/25/16 09:00 04/24/16 08:59 03/26/16 08:10 10 GM Insulin Aspart (novoLOG ASPART) 4 units Q4 SC 03/26/16 08:00 04/25/16 07:59 03/26/16 12:00 4 UNITS Insulin Glargine (Lantus Solostar Pen) 5 unit QAM SC 03/26/16 09:00 04/25/16 08:59 03/26/16 08:07 5 UNIT Epoetin Stewart (Procrit Inj) 10,000 units TODAY@0800 IV. 03/26/16 08:00 03/26/16 16:00 Albumin Human (Albumin 25%) 12.5 gm TODAY@0800 IV 03/26/16 08:00 03/26/16 16:00 Metoprolol Succinate (Toprol Xl Tab) 25 mg QAM PO 03/27/16 09:00 04/26/16 08:59 Metoprolol Succinate (Toprol Xl Tab) 12.5 mg PM PO 03/26/16 21:00 04/25/16 20:59 Last 24 Hours Test 03/25/16 15:37 03/25/16 20:11 03/26/16 00:01 03/26/16 04:51 Bedside Glucose 221 mg/dl 221 mg/dl 239 mg/dl 243 mg/dl Test 03/26/16 07:16 03/26/16 07:52 03/26/16 11:51 White Blood Count 11.29 K/uL Red Blood Count 2.73 M/uL Hemoglobin 8.1 g/dL Hematocrit 24.3 % Mean Corpuscular Volume 89.0 fL Mean Corpuscular Hemoglobin 29.7 pg Mean Corpuscular Hemoglobin Concent 33.3 g/dl RDW Standard Deviation 59.0 fL RDW Coefficient of Variation 18.1 % Platelet Count 209 K/uL Mean Platelet Volume 10.3 fL Prothrombin Time 14.0 SECONDS Prothromb Time International Ratio 1.3 Sodium Level 140 mmol/L Potassium Level 4.1 mmol/L Chloride Level 105 mmol/L Carbon Dioxide Level 27 mmol/L Anion Gap 8.0 mmol/L Blood Urea Nitrogen 59 mg/dl Creatinine 3.50 mg/dl Est Creatinine Clear Calc Drug Dose 18.9 ml/min Estimated GFR () 17.9 Estimated GFR (Non- 15.5 BUN/Creatinine Ratio 16.8 Random Glucose 201 mg/dl Calcium Level 7.9 mg/dl Bedside Glucose 211 mg/dl 167 mg/dl Assessment & Plan regis/atn with multiple insults to the kidney. new dialysis catheter. on 4 k bath. will attempt to remove fluid depending on bp. using albumin to help. lungs cta but pt does have significant edema. likely third spacing. hopefully will be able to tolerate fluid removal. afib-spoke with joshua and he is ok with restarting the coumadin. reinitiated the coumadin for redosing today at 4pm.
[2016-03-26] MEDS: WARFARIN SOD 2.5 MG TAB PO SCH (16:46)
[2016-03-26] MEDS: ACETAMINOPHEN 325 MG TAB PO PRN (18:03)
[2016-03-26] MEDS: CEFEPIME IV 500 MG in DEXTROSE 5% 100ML 100 ML IV SCH (20:28)
[2016-03-27] VITALS (8 sets, daily range): BP systolic 101–125; BP diastolic 60–66; PULSE 80–104; TEMP 36.6–37.1; O2SAT 94–100
[2016-03-27] MEDS: INSULIN ASPART 100 UNITS/ML 3 ML PEN SC SCH ×6 (00:02→21:00)
[2016-03-27] MEDS: ACETAMINOPHEN 325 MG TAB PO PRN ×3 (02:00→23:20)
[2016-03-27 06:05] LABS: HEMATOCRIT 24.3 % (42-52); MEAN CELL VOLUME 90.3 fL (80-100); MEAN CORPUSCULAR HEMOGLOBIN 30.1 pg (25-34); MEAN CORPUSCULAR HGB CONC 33.3 g/dl (32-36); MEAN PLATELET VOLUME 10.5 fL (7.4-10.4); PLATELET COUNT 222 K/uL (130-400); RED BLOOD COUNT 2.69 M/uL (4.7-6.1); WHITE BLOOD COUNT 11.08 K/uL (4.8-10.8)
[2016-03-27 06:35] LABS: BUN/CREATININE RATIO 17.9 (10-20); CALCIUM 8.3 mg/dl (8.5-10.1); CREATININE 2.1 mg/dl (0.60-1.40); POTASSIUM 3.9 mmol/L (3.5-5.1)
[2016-03-27] MEDS: FLUTICASONE PROPIONATE NA SPR 16 GM BTL NAE SCH (08:27)
[2016-03-27] MEDS: SERTRALINE HCL 50 MG TAB PO SCH (08:27)
[2016-03-27] MEDS: GLUTAMINE 15 GM PO SCH (08:27)
[2016-03-27] MEDS: ATORVASTATIN 10 MG TAB PO SCH (08:27)
[2016-03-27] MEDS: CLOPIDOGREL BISULFATE 75 MG TAB PO SCH (08:27)
[2016-03-27] MEDS: AMIODARONE 200 MG TAB PO SCH ×2 (08:28→16:40)
[2016-03-27] MEDS: ASCORBIC ACID 500 MG TAB PO SCH (08:28)
[2016-03-27] MEDS: INSULIN GLARGINE SOLOSTAR 100 UNITS/ML 3 ML PEN SC SCH (08:29)
[2016-03-27] MEDS: LANSOPRAZOLE SOLUTAB 30 MG PO SCH (08:30)
[2016-03-27] MEDS ORDERED: METOPROLOL SUCC 25MG EXT REL TAB PO SCH (09:00)
--- NOTE | 2016-03-27 10:06 | Nephrology Progress Note ---
Nephrology Progress Note Date of Service: Mar 27, 2016. Subjective 80 yo male with regis/atn on dialysis. tolerated dialysis well. pt more alert. going for swallowing study today. on dobhoff tube with tube feeds. urination is improving but urine still dark. Objective Date Time Temp Pulse Resp B/P Pulse Ox O2 Delivery O2 Flow Rate FiO2 03/27/16 08:00 Room Air 03/27/16 07:50 36.8 81 16 101/66 100 Nasal Cannula 2.0 03/27/16 04:08 36.6 80 18 102/60 100 Nasal Cannula 2.0 03/27/16 04:00 100 Nasal Cannula 2.0 03/27/16 00:00 Room Air 03/26/16 23:20 37.2 87 20 105/60 97 Room Air 03/26/16 20:31 92 104/63 03/26/16 19:30 Room Air 03/26/16 19:10 36.2 95 18 122/63 99 Room Air 03/26/16 17:38 36.7 83 98/54 03/26/16 17:15 88 98/62 03/26/16 17:00 84 119/61 03/26/16 16:45 91 100/56 03/26/16 16:30 92 113/60 03/26/16 16:15 84 107/59 03/26/16 16:00 Room Air 03/26/16 16:00 96 103/61 03/26/16 15:45 94 96/62 03/26/16 15:30 94 107/62 03/26/16 15:15 96 99/62 03/26/16 15:00 90 103/65 03/26/16 14:45 82 97/58 03/26/16 14:30 86 81/50 03/26/16 14:13 36.5 74 103/57 03/26/16 14:00 36.6 97 18 118/69 96 Room Air 03/26/16 13:03 36.7 111 18 98/60 98 Room Air 96 03/26/16 12:40 36.5 87 18 103/65 98 Nasal Cannula 2.0 03/26/16 12:17 36.4 109 18 108/67 99 Room Air 03/26/16 12:00 Room Air 03/26/16 11:40 36.7 88 20 107/68 97 Nasal Cannula 2.0 12/26/16 10:35 36.4 94 16 137/94 98 Room Air Physical Exam: General-aaox3 Eyes-no sceral icterus ENT-mmm, +ng tube Neck-supple Lungs-cta Heart-irregular Abdomen-bs+ s/nt/nd Extremities-+2 edema Neuro-nonfocal Current Inpatient Medications Medications (Trade) Dose Ordered Sig/Quoc Route Start Time Stop Time Status Last Admin Dose Admin Nitroglycerin (Nitrostat Tab) 0.4 mg UD PRN SL 03/08/16 17:00 04/07/16 16:59 03/14/16 08:34 0.4 MG Glucose (Glucose 40% Gel) 15-30 GRAMS 15 GRAMS... UD PRN PO 03/08/16 17:15 04/07/16 17:14 Glucose (Glucose Chew Tab) 4-8 Tablets 4 Tabl... UD PRN PO 03/08/16 17:15 04/07/16 17:14 Dextrose (Dextrose 50% 50ML Syringe) 25-50ML OF 50% DW IV FOR... UD PRN IV 03/08/16 17:15 04/07/16 17:14 03/21/16 18:22 50 ML Glucagon (Glucagon Inj) 1 mg UD PRN SQ 03/08/16 17:15 04/07/16 17:14 Miscellaneous Information (Consult Glycemic Management Pharmacy) 1 ea UD PRN N/A 03/08/16 19:45 04/07/16 19:44 Atorvastatin Calcium (Lipitor Tab) 10 mg DAILY PO 03/09/16 09:00 04/08/16 08:59 03/27/16 08:27 10 MG Clopidogrel Bisulfate (plAVix TAB) 75 mg DAILY PO 03/09/16 09:00 04/08/16 08:59 Future hold 03/27/16 08:27 75 MG Fluticasone Propionate (Flonase Nasal Kellogg) 2 sprays DAILY RICHA 03/09/16 09:00 04/08/16 08:59 03/27/16 08:27 2 SPRAYS Levalbuterol (Xopenex Hfa Inhaler) 2 puffs Q4H PRN INH 03/08/16 17:30 04/07/16 17:29 Sertraline HCl (Zoloft Tab) 25 mg DAILY PO 03/09/16 09:00 04/08/16 08:59 03/27/16 08:27 25 MG Miscellaneous Information (Order Awaiting Action) 1 ea QS N/A 03/08/16 19:45 04/07/16 19:44 Amylase/Lipase/ Protease (Pancreaze (Lipase 10,500U) Cap) 2 cap TIDM PO 03/09/16 07:15 04/08/16 07:29 Future Hold 03/23/16 11:40 2 CAP Amylase/Lipase/ Protease (Pancreaze (Lipase 10,500U) Cap) 1-2 CAPS WITH SNACKS UD PRN PO 03/08/16 19:45 04/07/16 19:44 Polyethylene (Miralax Powder Packet) 17 gm Q6H PRN PO 03/10/16 21:15 04/09/16 21:14 03/24/16 14:22 17 GM Acetaminophen (Tylenol Tab) 650 mg Q4H PRN PO 03/12/16 09:30 04/11/16 09:29 03/26/16 18:03 650 MG Warfarin Sodium (Coumadin Tab) 2.5 mg DAILY@16 PO 03/13/16 16:00 04/12/16 15:59 Future hold 03/26/16 16:46 2.5 MG Ondansetron HCl (Zofran Inj) 4 mg Q4H PRN IV 03/14/16 08:45 04/13/16 08:44 03/16/16 16:05 4 MG Amiodarone HCl (Cordarone Tab) 200 mg BIDM PO 03/14/16 16:30 04/13/16 16:29 03/27/16 08:28 200 MG Bisacodyl (Dulcolax Supp) 10 mg DAILY PRN AL 03/16/16 09:45 04/15/16 09:44 Future Hold 03/17/16 10:10 10 MG Polyethylene (Miralax Powder Packet) 17 gm BID PO 03/17/16 09:00 04/16/16 08:59 Future Hold 03/22/16 16:52 17 GM Cefepime HCl 1 ea 1 ea UD PRN N/A 03/19/16 10:15 04/18/16 10:14 Cefepime HCl/ Dextrose (Maxipime IV/D5 100ml) 105.65 ml @ 200 mls/ hr Q24H IV 03/20/16 20:00 03/29/16 19:59 03/26/16 20:28 200 MLS/HR Calcitriol (Rocaltrol Cap) 0.25 mcg MoWeFr@0900 PO 03/21/16 09:00 04/20/16 08:59 03/26/16 08:10 0.25 MCG Docusate Sodium (coLACE SYRUP) 100 mg BID PO 03/22/16 21:00 04/21/16 20:59 Future Hold 03/22/16 16:52 100 MG Lansoprazole (Prevacid Solutab) 30 mg QAM PO 03/23/16 09:00 04/22/16 08:59 03/27/16 08:30 30 MG Ascorbic Acid (Vitamin C Tab) 1,000 mg QAM PO 03/24/16 09:00 04/23/16 08:59 03/27/16 08:28 1,000 MG Enteral Nutritional Formula 1000 ml 1,000 ml CONTINUOUS NG 03/23/16 11:45 04/22/16 11:44 03/25/16 15:23 1,000 ML Acetaminophen (Ofirmev Iv) 100 ml @ 400 mls/hr Q8H PRN IV 03/23/16 20:30 04/22/16 20:29 03/24/16 14:21 400 MLS/HR Glutamine (Glutasolve) 10 gm DAILY PO 03/25/16 09:00 04/24/16 08:59 03/27/16 08:27 10 GM Insulin Glargine (Lantus Solostar Pen) 5 unit QAM SC 03/26/16 09:00 04/25/16 08:59 03/27/16 08:29 5 UNIT Metoprolol Succinate (Toprol Xl Tab) 25 mg QAM PO 03/27/16 09:00 04/26/16 08:59 03/27/16 08:28 25 MG Metoprolol Succinate (Toprol Xl Tab) 12.5 mg PM PO 03/26/16 21:00 04/25/16 20:59 03/26/16 20:36 12.5 MG Insulin Human Regular (novoLIN-R) 6 units Q6 SC 03/27/16 12:00 1/26/17 11:59 Insulin Human Regular (novoLIN-R) SLIDING SCALE G... Q6 SC 03/27/16 12:00 04/26/16 11:59 Epoetin Stewart (Procrit Inj) 10,000 units TODAY@0600 IV. 03/28/16 06:00 03/28/16 18:00 Albumin Human (Albumin 25%) 12.5 gm TODAY@0600 IV 03/28/16 06:00 03/28/16 18:00 Last 24 Hours Test 03/26/16 11:51 03/26/16 16:07 03/26/16 20:06 03/26/16 23:58 Bedside Glucose 167 mg/dl 134 mg/dl 132 mg/dl 158 mg/dl Test 03/27/16 04:19 03/27/16 05:40 03/27/16 08:19 Bedside Glucose 165 mg/dl 170 mg/dl White Blood Count 11.08 K/uL Red Blood Count 2.69 M/uL Hemoglobin 8.1 g/dL Hematocrit 24.3 % Mean Corpuscular Volume 90.3 fL Mean Corpuscular Hemoglobin 30.1 pg Mean Corpuscular Hemoglobin Concent 33.3 g/dl RDW Standard Deviation 58.1 fL RDW Coefficient of Variation 18.0 % Platelet Count 222 K/uL Mean Platelet Volume 10.5 fL Sodium Level 139 mmol/L Potassium Level 3.9 mmol/L Chloride Level 103 mmol/L Carbon Dioxide Level 28 mmol/L Anion Gap 8.0 mmol/L Blood Urea Nitrogen 38 mg/dl Creatinine 2.10 mg/dl Est Creatinine Clear Calc Drug Dose 31.3 ml/min Estimated GFR () 33.2 Estimated GFR (Non- 28.7 BUN/Creatinine Ratio 17.9 Random Glucose 151 mg/dl Calcium Level 8.3 mg/dl Assessment & Plan regis/atn with multiple insults to the kidney. new dialysis catheter. continue dialysis - to help with fluid removal and clearance of toxins. do not feel he will need chronic dialysis and will look for signs of renal recovery. pt is urinating better but urine still dark. will give albumin with lasix daily for next three days to help stimulate urine output and try to mobilize the third spaced fluid.
[2016-03-27] MEDS ORDERED: ALBUMIN 25% 50 ML with FUROSEMIDE INJ 40 MG IV SCH ×4 (10:15→16:45)
--- NOTE | 2016-03-27 11:00 | Cardiology Follow-Up ---
Subjective General Date of Service: Mar 27, 2016. Chief Complaint: follow-up shortness of breath, congestive heart failure Pt evaluation today including: conversation w/ patient, physical exam, chart review, lab review, review of studies, review of inpatient medication list History of Present Illness Patient seen and examined. Chart, medications, telemetry reviewed. Feeling better overall. Trouble swallowing. Scheduled for a swallowing study today No chest pain, palpitations, or resting dyspnea. Bowels moving. Improved urination. Telemetry: Intermittently ventricular paced. Atrial fibrillation with possible aberrant conduction. Intermittent PVC's in singles, couplets, and triplets. Allergies Coded Allergies: Lisinopril (Verified Allergy, Unknown, RASH, 06/24/15) Spironolactone (Verified Allergy, Unknown, unkn, 06/24/15) Zolpidem (Verified Adverse Reaction, Unknown, HALLUCINATIONS, 06/24/15) Social History Smoking Status: Former Smoker Hx Tobacco Use In Past Year?: No Hx Alcohol Use - Type And Amou: No Hx Substance Use - Type And Am: No Problem List Medical Problems: (1) Acute bronchitis Status: Acute (2) Chronic renal disease Status: Acute (3) Elevated troponin Status: Acute (4) Influenza Status: Acute (5) Systolic congestive heart failure Status: Acute Physical Exam Vital Signs Last Vital Signs Documentation Date Time Temp Pulse Resp B/P Pulse Ox O2 Delivery O2 Flow Rate FiO2 03/27/16 08:00 Room Air 03/27/16 07:50 36.8 81 16 101/66 100 2.0 Physical Exam Constitutional: Level of Distress: NAD, chronically ill Psychiatric: Mental Status: normal mood, normal affect Orientation: to time, to place, to person Memory: recent memory normal, remote memory normal Head: normocephalic, atraumatic Eyes: EOM: EOMI ENMT: normal ENT inspection, hearing grossly normal Neck: supple, no masses Lungs: Respiratory effort: good air movement Auscultation: no wheezing, no rales/crackles, decreased breath sounds Cardiovascular: Heart Auscultation: no murmurs, no rubs, no gallops, irregular rate rhythm Peripheral Pulses: Bruits: none appreciated Radial Pulse: normal on the left Femoral Pulse: normal on the left, normal on the right Abdomen: Bowel Sounds: normal Inspection & Palpation: soft Extremities: no cyanosis, no clubbing, edema Neurologic: Gait & Station: pertinent finding (No focal motor deficit) Cranial Nerves: grossly intact Assessment and Plan Assessment and Plan Markedly complex 80-year-old male with moderately severe left ventricular systolic congestive heart failure out of proportion to his underlying coronary artery disease history, acute renal dysfunction, cardiorenal syndrome, necessitating dialysis this admission, and chronic atrial fibrillation with difficult to control ventricular response rates along with complex ventricular ectopy. Patient status post 03/12/2016 BiV-ICD implantation with course also complicated by pseudomonas sepsis. Given telemetry findings will continue to increase evidenced based beta-mansi therapy dosing as blood pressure permits, attempting to lower heart rates and hopefully improve biventricular pacing. Amiodarone will be continued as prescribed, 200 mg twice a day. Continue statin, clopidogrel, and Coumadin anticoagulation. Digoxin avoided given renal dysfunction, concurrent amiodarone use. No ACEI/ARB/Aldactone/Entresto. Patient seen and examined. Assessment as above Will continue to titrate beta mansi upward. Romel Srivastava MD Laboratory Results Last 24 Hours Test 03/26/16 11:51 03/26/16 16:07 03/26/16 20:06 03/26/16 23:58 Bedside Glucose 167 mg/dl 134 mg/dl 132 mg/dl 158 mg/dl Test 03/27/16 04:19 03/27/16 05:40 03/27/16 08:19 Bedside Glucose 165 mg/dl 170 mg/dl White Blood Count 11.08 K/uL Red Blood Count 2.69 M/uL Hemoglobin 8.1 g/dL Hematocrit 24.3 % Mean Corpuscular Volume 90.3 fL Mean Corpuscular Hemoglobin 30.1 pg Mean Corpuscular Hemoglobin Concent 33.3 g/dl RDW Standard Deviation 58.1 fL RDW Coefficient of Variation 18.0 % Platelet Count 222 K/uL Mean Platelet Volume 10.5 fL Sodium Level 139 mmol/L Potassium Level 3.9 mmol/L Chloride Level 103 mmol/L Carbon Dioxide Level 28 mmol/L Anion Gap 8.0 mmol/L Blood Urea Nitrogen 38 mg/dl Creatinine 2.10 mg/dl Est Creatinine Clear Calc Drug Dose 31.3 ml/min Estimated GFR () 33.2 Estimated GFR (Non- 28.7 BUN/Creatinine Ratio 17.9 Random Glucose 151 mg/dl Calcium Level 8.3 mg/dl
--- NOTE | 2016-03-27 11:41 | Pharmacy Progress Note ---
Glycemic: Assessment & Plan Date of Service Mar 27, 2016. Assessment & Plan Outpatient Anti-diabetic Regimen: * Novolog 70/30 mix 28 units w/ breakfast + 12 units with dinner * A1c = 8.2 % 03/09/16 ASSESSMENT: 03/27/16: * Patient's BSGs have been within or near goal range for the past 24 hours. * Patient transitioned to Regular insulin today with q6hr BSGs. Dose adjusted accordingly to maintain equivalent CHO coverage. * Patient was switched from tube feeds to a diet at lunch time. * Type 2 diabetic/AHA/low potassium, mechanical soft, 1500mL fluid restriction * Due to the transitioning of insulin this morning, slight deficit in carb coverage. Therefore, pre-lunch BSG elevated (236). * Will switch back to Novolog again for meal coverage and adjust as diet advances. 03/26/16 * Patient did begin scheduled Novolog Q 4 hrs to cover CHO's in tube feeds yesterday afternoon. Despite this BSGs have remained at the same level ~200- 240. Will increase this prandial insulin dose, but will also add some basal insulin at this time. This patient required ~40 units of insulin per day in the form of 70/30 insulin. Will keep the basal insulin dose low at this time as a precaution as excess basal insulin can lead to hypoglycemia if tube feeds are d/c'd abruptly. * Will continue Q 4 hr BSGs and coverage with Novolog CF and scheduled prandial dose today; however I would like to transition to Q 6 hr Regular insulin soon for patient convenience. 03/23/16 * Glycemic control did deteriorate yesterday with the initiation of tube feeds ( BSGs peaked in low 200's) * Today his tube feeds were changed to a formula that will deliver fewer carbs ( a little less than half the prior formula's carb content) -- this may lead to improved glycemic control * Usually we would add a scheduled dose of rapid acting insulin ATC to cover carbs delivered in continuous tube feeds, but given uncertainty of insulin requirements with lower-carb TFs I feel that it's best we wait 24 hours and cover with correctional insulin only in the interim. Tomorrow we can add a scheduled dose of Novolog or Regular insulin to cover carbs in these feeds. * There was discussion today that norepi may be titrated down today if tolerated , and if not he may receive a dose of dexamethasone and possibly a cosyntropin stim test in the AM...this will lead to increased insulin resistance and we may need to escalate insulin doses as a result. * Will check BSGs more frequently (Q 4 hrs) for now given variables in motion that could change glycemic control for the better or worse PLAN FOR INPATIENT GLYCEMIC CONTROL: * Lantus 5 units SQ Q AM * Correctional/prandial Insulin with NOVOLOG, accu-checks ACHS * Goal Range to Low 120 mg/dL - High 160 mg/dL * Continue Correction Factor of 30 mg/dL/unit * Carb ratio: 1 unit per 12 gm CHO consumed * Please note that the plan above was derived based on current level of insulin resistance and hospital stress. These recommendations are appropriate for inpatient admission only. Plan of care upon discharge will need to be reassessed to avoid potential outpatient hypo/hyperglycemia. Thank you.
[2016-03-27] MEDS ORDERED: INSULIN HUMAN REGULAR SC SCH ×2 (12:00)
--- NOTE | 2016-03-27 12:29 | DIAGNOSTIC IMAGING REPORT ---
VIDEO SWALLOW HISTORY: Solid aspiration. Follow-up study. TECHNIQUE: Video fluoroscopic evaluation of swallowing was performed in the AP and lateral projections by the speech pathology staff. The patient is fed nectar-thick and thin liquid barium, a barium coated wafer, and barium pudding. FLUOROSCOPY TIME: 1.7 minutes. COMPARISON STUDY: 03/21/2016 FINDINGS: There is normal hyoid excursion and epiglottic deflection. No significant penetration or aspiration identified. There was premature vallecular leakage. The study is performed with an indwelling nasogastric tube in place IMPRESSION: 1. No aspiration identified. 2. Please see the speech pathologist report for detailed findings and recommendations. Electronically signed by: Mohsen Dobbs M.D. 03/27/2016 12:28 PM
[2016-03-27] MEDS ORDERED: ACETAMINOPHEN 325 MG TAB PO SCH (12:30)
--- NOTE | 2016-03-27 12:34 | Progress Note ---
Internal Med Progress Note Date of Service: Mar 27, 2016. Provider Documentation: SUBJECTIVE: Patient was transferred out of ICU on 03/25/16 Patient is doing very well- sitting in chair. C/o neck pain/left shoulder pain. Mental status: AAOX3, back to baseline No fever, new cough, chest pain, nausea, vomiting, abd pain, urinary symptoms OBJECTIVE: Vital Signs-as noted below Exam: General-AAOX3, no distress Eyes-EOMI; no scleral icterus HEENT- Feeding tube + Neck-no JVD Lungs-coarse breath sounds anteriorly Heart-irregularly irregular Abdomen-soft; NTND; normal BS Extremities-edema ; Able to abduct left shoulder to > 90 degrees Neuro-no gross focal deficits Skin - dialysis catheter present Lab data as noted below. Procedures: CT head Interval right parietal infarct. No acute intracranial findings. CT c-spine Findings of severe degenerative change combined with extensive posterior laminectomy defects. No acute process is appreciated. TTE * The study was technically limited. * The left ventricle is moderately dilated. * Left ventricular systolic function is moderate to severely reduced. * Ejection Fraction = 30-35%. * The right ventricular systolic function is normal. * There is mild mitral regurgitation. Renal ultrasound 1. there is mild hydronephrosis right kidney. 2. Several left renal cyst. 3. Complex cyst mid to lower aspect right kidney. 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 Found to have symptomatic bradycardia, sick sinus syndrome, s/p biventricular pacemaker 03/12/16. Later got sepsis /bacteremia (pseudomonas) (febrile, rigors , hypotensive).-unclear source. Supposed to be on IV antibiotics for 14 days post repeat bl cultures negative. His creatinine continued to worsen leading to mental status changes. Eventually was started on dialysis on . New permanent dialysis line placed on 03/26, temporary removed. Mental status improved-back to baseline- AAOX3. Passed video swallow study on 03/27/16 and NG tube was removed--> started on mechanical soft diet. Coumadin was restarted too on 03/26/16 post tunnel line placement for HD. Overall improving after a prolonged ICU/hospitalization course. ASSESSMENT/PLAN JOSUÉ (baseline CKD stage 3) - Improving - Newly started on Dialysis on 03/23/16; Temporary dialysis catheter placed on 03/21/16. Underwent permanent dialysis catheter placement on 03/26/16 - Received albumin and IVF's with sodium bicarbonate, then intermittently diuresed with furosemide vs bumetanide given volume status - Held torsemide and Entresto (home medications) - Renal ultrasound with mild hydronephrosis, not thought to be contributory - Nephrology on board. METABOLIC ENCEPHALOPATHY SECONDARY TO UREMIA/SEPSIS -Resolved. AAOX3 -Monitor SEPSIS/BACTEREMIA ( PSEUDOMONAS) - Sepsis resolved - Unclear source - D/D considered: Abdominal source, UTI but negative, no pneumonia, Line in situ- sent for cultures - Afebrile - S/P IV Dopamine drip--changed to levophed later due to ventricular ectopy-- off it since 03/23/16 - Blood cx x 2- pseudomonas. Tip culture/Urine cx- negative. Repeat Blood cultures x 2 - negative - Continue with IV Cefepime per ID (To be continued x 14 days post negative repeat blood cx- Day 09/12). Lactic acid- normal SYMPTOMATIC BRADYCARDIA S/P BIVENTRICULAR PACEMAKER AICD -03/21/16 -Echo shows small circumferential pericardial effusion -EP evaluated patient- interrogated pacemaker and reprogramed the device -On amiodarone BID for Ectopy -Cardiology/EP following HISTORY OF NON ISCHEMIC CARDIOMYOPATHY - Continue atorvastatin, clopidogrel - Held carvedilol, torsemide and Entresto on admission given pressor requirement and JOSUÉ - Started Metoprolol and titrating for Tachycardia, per cardiology A FIB - Coumadin initially held for supratherapeutic INR - Coumadin then restarted post-procedure (pacemaker placement) - Coumadin back on hold for need for tunnel placement for HD- done today . To be restarted - Continued on Amiodarone BID, Toprol titration DM 2 - glycemic pharmacy consulted - continue insulin therapy URINARY RETENTION - Urology consulted - Ruff placed - Continue tamsulosin HISTORY OF CVA - continue Plavix, Atorvastatin - Coumadin on hold in case of need for line placement HISTORY OF PANCREATIC CANCER - s/p Whipple procedure - continue Pancreaze NUTRITION/ASPIRATION + Video swallow test done 03/21/16 - aspirating liquids/solids -Swallow evaluation recommends- NPO--> Feeding tube placed-started on feeds --> passed repeat video swallow test on 03/27/16--> dc nasal tube and started on mechanical soft diet. DVT prophylaxis - Coumadin restarted - SCD's DISPO PT/OT to be continued- will need rehab CODE STATUS Full code as per patient Discussed with significant other by bedside. Vital Signs: Date Time Temp Pulse Resp B/P Pulse Ox O2 Delivery O2 Flow Rate FiO2 03/27/16 11:47 36.9 95 18 107/63 100 Nasal Cannula 2.0 03/27/16 08:00 Room Air 03/27/16 07:50 36.8 81 16 101/66 100 Nasal Cannula 2.0 03/27/16 04:08 36.6 80 18 102/60 100 Nasal Cannula 2.0 03/27/16 04:00 100 Nasal Cannula 2.0 03/27/16 00:00 Room Air 03/26/16 23:20 37.2 87 20 105/60 97 Room Air 03/26/16 20:31 92 104/63 03/26/16 19:30 Room Air 03/26/16 19:10 36.2 95 18 122/63 99 Room Air 03/26/16 17:38 36.7 83 98/54 03/26/16 17:15 88 98/62 03/26/16 17:00 84 119/61 03/26/16 16:45 91 100/56 03/26/16 16:30 92 113/60 03/26/16 16:15 84 107/59 03/26/16 16:00 Room Air 03/26/16 16:00 96 103/61 03/26/16 15:45 94 96/62 03/26/16 15:30 94 107/62 03/26/16 15:15 96 99/62 03/26/16 15:00 90 103/65 03/26/16 14:45 82 97/58 03/26/16 14:30 86 81/50 03/26/16 14:13 36.5 74 103/57 03/26/16 14:00 36.6 97 18 118/69 96 Room Air 03/26/16 13:03 36.7 111 18 98/60 98 Room Air 96 03/26/16 12:40 36.5 87 18 103/65 98 Nasal Cannula 2.0 Lab Results: Results Past 24 Hours Test 03/26/16 16:07 12/26/16 20:06 03/26/16 23:58 03/27/16 04:19 Range/Units Bedside Glucose 134 132 158 165 70-99 mg/dl Test 03/27/16 05:40 03/27/16 08:19 Range/Units White Blood Count 11.08 4.8-10.8 K/uL Red Blood Count 2.69 4.7-6.1 M/uL Hemoglobin 8.1 14.0-18.0 g/dL Hematocrit 24.3 42-52 % Mean Corpuscular Volume 90.3 80-100 fL Mean Corpuscular Hemoglobin 30.1 25-34 pg Mean Corpuscular Hemoglobin Concent 33.3 32-36 g/dl RDW Standard Deviation 58.1 36.4-46.3 fL RDW Coefficient of Variation 18.0 11.5-14.5 % Platelet Count 222 130-400 K/uL Mean Platelet Volume 10.5 7.4-10.4 fL Sodium Level 139 136-145 mmol/L Potassium Level 3.9 3.5-5.1 mmol/L Chloride Level 103 98-107 mmol/L Carbon Dioxide Level 28 21-32 mmol/L Anion Gap 8.0 3-11 mmol/L Blood Urea Nitrogen 38 7-18 mg/dl Creatinine 2.10 0.60-1.40 mg/dl Est Creatinine Clear Calc Drug Dose 31.3 ml/min Estimated GFR () 33.2 Estimated GFR (Non- 28.7 BUN/Creatinine Ratio 17.9 10-20 Random Glucose 151 70-99 mg/dl Calcium Level 8.3 8.5-10.1 mg/dl Bedside Glucose 170 70-99 mg/dl
[2016-03-27] MEDS: WARFARIN SOD 2.5 MG TAB PO SCH (15:23)
[2016-03-27] MEDS ORDERED: NURSING VERBAL MED ORDER ONE (16:15)
--- NOTE | 2016-03-27 16:35 | DIAGNOSTIC IMAGING REPORT ---
LEFT SHOULDER 3 VIEWS HISTORY: Left shoulder pain COMPARISON: None. FINDINGS: There is no fracture or dislocation. Soft tissues are unremarkable. The left clavicle is intact. There is a left-sided pacemaker. Moderate AC joint arthropathy. Narrowing of the subacromial space. Mild osteoarthritis at the glenohumeral joint. IMPRESSION: 1. No fracture or dislocation within the left shoulder. 2. Degenerative changes as described above. 3. Narrowing of the subacromial space. This is consistent with chronic rotator cuff injury. Electronically signed by: Osmin Mandel M.D. 03/27/2016 4:34 PM
[2016-03-27] MEDS: PANCREAZE (LIPASE 10,500U) CAP PO SCH (16:39)
[2016-03-27] MEDS: DOCUSATE SODIUM 100 MG/10 ML UDC PO SCH (21:00)
[2016-03-27] MEDS: CEFEPIME IV 500 MG in DEXTROSE 5% 100ML 100 ML IV SCH (21:11)
[2016-03-27] MEDS: METOPROLOL SUCC 25MG EXT REL TAB PO SCH (21:14)
[2016-03-28] VITALS (19 sets, daily range): BP systolic 82–122; BP diastolic 48–88; PULSE 67–98; TEMP 36.5–36.9; O2SAT 95–100
[2016-03-28] MEDS: ALBUMIN 25% 50 ML with FUROSEMIDE INJ 40 MG IV SCH ×2 (04:44)
[2016-03-28] MEDS ORDERED: ALBUMIN HUMAN 25% 12.5 GM/50 ML VIAL IV SCH (06:00)
[2016-03-28] MEDS ORDERED: EPOETIN ALFA 10,000 UNITS/ML VIAL IV. SCH (06:00)
[2016-03-28 07:16] LABS: HEMATOCRIT 23.2 % (42-52); MEAN CELL VOLUME 90.6 fL (80-100); MEAN CORPUSCULAR HEMOGLOBIN 30.1 pg (25-34); MEAN CORPUSCULAR HGB CONC 33.2 g/dl (32-36); MEAN PLATELET VOLUME 10.4 fL (7.4-10.4); PLATELET COUNT 232 K/uL (130-400); RED BLOOD COUNT 2.56 M/uL (4.7-6.1); WHITE BLOOD COUNT 11.74 K/uL (4.8-10.8)
[2016-03-28] MEDS: ACETAMINOPHEN 325 MG TAB PO PRN (07:22)
[2016-03-28 07:23] LABS: INR 1.3 (0.9-1.1)
[2016-03-28] MEDS: AMIODARONE 200 MG TAB PO SCH ×2 (07:23→16:17)
[2016-03-28] MEDS: PANCREAZE (LIPASE 10,500U) CAP PO SCH ×3 (07:24→16:18)
[2016-03-28 07:46] LABS: BUN/CREATININE RATIO 22.3 (10-20); CALCIUM 8.6 mg/dl (8.5-10.1); CREATININE 2.1 mg/dl (0.60-1.40); POTASSIUM 4.4 mmol/L (3.5-5.1)
[2016-03-28] MEDS: INSULIN ASPART 100 UNITS/ML 3 ML PEN SC SCH ×4 (08:34→20:46)
--- NOTE | 2016-03-28 11:36 | Cardiology Follow-Up ---
Subjective General Date of Service: Mar 28, 2016. Chief Complaint: follow-up shortness of breath, congestive heart failure Pt evaluation today including: conversation w/ patient, physical exam, chart review, lab review, review of studies, review of inpatient medication list History of Present Illness Patient seen in the Dialysis Unit, towards the end of treatment which he tolerated relatively well No chest pain, palpitations, or worsening dyspnea. Telemetry: Intermittently ventricular paced. Atrial fibrillation with possible aberrant conduction. Intermittent PVC's in singles, couplets, triplets, 14 beat run of wide complex tachycardia at 08:06:49. He did not receive Toprol XL this morning. Allergies Coded Allergies: Lisinopril (Verified Allergy, Unknown, RASH, 06/24/15) Spironolactone (Verified Allergy, Unknown, unkn, 06/24/15) Zolpidem (Verified Adverse Reaction, Unknown, HALLUCINATIONS, 06/24/15) Social History Smoking Status: Former Smoker Hx Tobacco Use In Past Year?: No Hx Alcohol Use - Type And Amou: No Hx Substance Use - Type And Am: No Problem List Medical Problems: (1) Acute bronchitis Status: Acute (2) Chronic renal disease Status: Acute (3) Elevated troponin Status: Acute (4) Influenza Status: Acute (5) Systolic congestive heart failure Status: Acute Physical Exam Vital Signs Last Vital Signs Documentation Date Time Temp Pulse Resp B/P Pulse Ox O2 Delivery O2 Flow Rate FiO2 03/28/16 11:15 71 109/59 03/28/16 08:28 36.7 03/28/16 08:00 18 100 2.0 03/28/16 07:47 Room Air Physical Exam Constitutional: Level of Distress: NAD, chronically ill Psychiatric: Memory: recent memory normal, remote memory normal Head: normocephalic, atraumatic Eyes: EOM: EOMI Lungs: Respiratory effort: good air movement Auscultation: decreased breath sounds Cardiovascular: Heart Auscultation: no murmurs, no rubs, no gallops, irregular rate rhythm Abdomen: Bowel Sounds: normal Extremities: no cyanosis, no clubbing, edema Neurologic: Cranial Nerves: grossly intact Assessment and Plan Assessment and Plan Complex 80-year-old male with moderately severe left ventricular systolic congestive heart failure out of proportion to his underlying coronary artery disease history and acute renal dysfunction, cardiorenal syndrome, necessitating dialysis, and chronic atrial fibrillation with difficult to control ventricular response rates along with complex ventricular ectopy. Patient status post 03/12/2016 BiV-ICD implantation. Course also complicated by pseudomonas sepsis. He continues to make progression in the right direction. Continue evidenced based beta-mansi therapy, increasing if needed for additional heart rate control, as blood pressure permits. Continue Amiodarone 200 mg twice a day. Continue statin, clopidogrel, and Coumadin anticoagulation. Increase activities as tolerated Patient was seen and examined Agree with above. Hgb 7.7, would consider transfusion with any further drop Romel Srivastava MD Laboratory Results Last 24 Hours Test 03/27/16 16:17 03/27/16 20:05 03/28/16 06:20 03/28/16 07:08 Bedside Glucose 172 mg/dl 134 mg/dl 155 mg/dl White Blood Count 11.74 K/uL Red Blood Count 2.56 M/uL Hemoglobin 7.7 g/dL Hematocrit 23.2 % Mean Corpuscular Volume 90.6 fL Mean Corpuscular Hemoglobin 30.1 pg Mean Corpuscular Hemoglobin Concent 33.2 g/dl RDW Standard Deviation 59.7 fL RDW Coefficient of Variation 18.5 % Platelet Count 232 K/uL Mean Platelet Volume 10.4 fL Prothrombin Time 14.0 SECONDS Prothromb Time International Ratio 1.3 Sodium Level 138 mmol/L Potassium Level 4.4 mmol/L Chloride Level 103 mmol/L Carbon Dioxide Level 28 mmol/L Anion Gap 7.0 mmol/L Blood Urea Nitrogen 47 mg/dl Creatinine 2.10 mg/dl Est Creatinine Clear Calc Drug Dose 30.9 ml/min Estimated GFR () 33.2 Estimated GFR (Non- 28.7 BUN/Creatinine Ratio 22.3 Random Glucose 146 mg/dl Calcium Level 8.6 mg/dl
[2016-03-28] MEDS: DOCUSATE SODIUM 100 MG/10 ML UDC PO SCH ×2 (12:16→20:03)
[2016-03-28] MEDS: ATORVASTATIN 10 MG TAB PO SCH (12:17)
--- NOTE | 2016-03-28 12:17 | PROGRESS NOTE ---
DATE: 03/28/2016 DIALYSIS NOTE The patient was seen during dialysis. He is tolerating dialysis very well as of now. He is an 80-year-old male with acute kidney injury/ATN, requiring dialysis support. He still has a lot of lower extremity as well as generalized edema, although he denies shortness of breath or denies any acute complaints. His blood pressure is running low. PHYSICAL EXAMINATION: VITAL SIGNS: At this point of time, his systolic blood pressure was 90, 100% on 2-liter nasal cannula, pulse rate 73 per minute, temperature 36.9. HEENT: Mucous membrane is moist. NECK: Supple. No jugular venous distention. CHEST: Bilateral decreased breath sounds secondary to lack of inspiratory effort. CARDIOVASCULAR: S1 and S2 very distant. I could not hear any heart sound. ABDOMEN: Soft, nontender, obese. EXTREMITIES: Show 2+ edema, extending all the way into the upper thigh as well as upper extremity edema. The catheter is working fine with a blood flow of 350. LABORATORY TESTS: From this morning show sodium 138, potassium 4.4, BUN 47, creatinine 2.1, creatinine is same as yesterday. Hemoglobin 7.7. WBC count 11.74. ASSESSMENT AND PLAN: An 80-year-old male with acute kidney injury/acute tubular necrosis with multiple insults to the kidney. He is currently requiring dialysis support for his renal failure. At this time, he still has lot of lower extremity as well as upper extremity edema. We will continue to do dialysis for a few more sessions to help with the clearance as well as fluid removal; however, the urine output has definitely improved which is a very encouraging sign. Creatinine today is same as yesterday, which is also very good sign. Most likely patient will recover from this acute renal failure. Continue with the Lasix/albumin as is being ordered. Hemoglobin is down to 7.7. If it goes below 7, please consider blood transfusion. MTDD
[2016-03-28] MEDS: LANSOPRAZOLE SOLUTAB 30 MG PO SCH (12:30)
[2016-03-28] MEDS: INSULIN GLARGINE SOLOSTAR 100 UNITS/ML 3 ML PEN SC SCH (12:30)
[2016-03-28] MEDS: SERTRALINE HCL 50 MG TAB PO SCH (12:30)
[2016-03-28] MEDS: METOPROLOL SUCC 25MG EXT REL TAB PO SCH ×2 (12:30→20:02)
[2016-03-28] MEDS: ASCORBIC ACID 500 MG TAB PO SCH (12:30)
[2016-03-28] MEDS: CLOPIDOGREL BISULFATE 75 MG TAB PO SCH (12:30)
[2016-03-28] MEDS: FLUTICASONE PROPIONATE NA SPR 16 GM BTL NAE SCH (12:30)
[2016-03-28] MEDS: GLUTAMINE 15 GM PO SCH (12:30)
[2016-03-28] MEDS: CALCITRIOL 0.25 MCG CAP PO SCH (12:30)
[2016-03-28] MEDS: WARFARIN SOD 2.5 MG TAB PO SCH (16:17)
--- NOTE | 2016-03-28 17:50 | Progress Note ---
Internal Med Progress Note Date of Service: Mar 28, 2016. Provider Documentation: SUBJECTIVE: Patient was transferred out of ICU on 03/25/16 Patient is doing better. C/o neck pain/left shoulder pain. C/o still having difficulty eating regular food. No fever, new cough, chest pain, nausea, vomiting, abd pain, urinary symptoms Had a lose BM. OBJECTIVE: Vital Signs-as noted below Exam: General-AAOX3, no distress Eyes-EOMI; no scleral icterus HEENT- Feeding tube + Neck-no JVD Lungs-coarse breath sounds anteriorly Heart-irregularly irregular Abdomen-soft; NTND; normal BS Extremities-edema ; Able to abduct left shoulder to > 90 degrees Neuro-no gross focal deficits Skin - dialysis catheter present Lab data as noted below. Procedures: CT head Interval right parietal infarct. No acute intracranial findings. CT c-spine Findings of severe degenerative change combined with extensive posterior laminectomy defects. No acute process is appreciated. TTE * The study was technically limited. * The left ventricle is moderately dilated. * Left ventricular systolic function is moderate to severely reduced. * Ejection Fraction = 30-35%. * The right ventricular systolic function is normal. * There is mild mitral regurgitation. Renal ultrasound 1. there is mild hydronephrosis right kidney. 2. Several left renal cyst. 3. Complex cyst mid to lower aspect right kidney. 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 Found to have symptomatic bradycardia, sick sinus syndrome, s/p biventricular pacemaker 03/12/16. Later got sepsis /bacteremia (pseudomonas) (febrile, rigors , hypotensive).-unclear source. Supposed to be on IV antibiotics for 14 days post repeat bl cultures negative. His creatinine continued to worsen leading to mental status changes. Eventually was started on dialysis on . New permanent dialysis line placed on 03/26, temporary removed. Mental status improved-back to baseline- AAOX3. Passed video swallow study on 03/27/16 and NG tube was removed--> started on mechanical soft diet. Coumadin was restarted too on 03/26/16 post tunnel line placement for HD. Overall improving after a prolonged ICU/hospitalization course. ASSESSMENT/PLAN JOSUÉ (baseline CKD stage 3) - Improving - Newly started on Dialysis on 03/23/16; Temporary dialysis catheter placed on 03/21/16. Underwent permanent dialysis catheter placement on 03/26/16 - Received albumin and IVF's with sodium bicarbonate, then intermittently diuresed with furosemide vs bumetanide given volume status - Held torsemide and Entresto (home medications) - Renal ultrasound with mild hydronephrosis, not thought to be contributory - Nephrology on board. Plan: Continue dialysis, but hopefully this would just be temporary and eventually should be able to take him off as beginning to make urine and creatinine stable. ANEMIA Hb dropped to 7.7 Already received dialysis today If < 7 would transfuse METABOLIC ENCEPHALOPATHY SECONDARY TO UREMIA/SEPSIS -Resolved. AAOX3 -Monitor SEPSIS/BACTEREMIA ( PSEUDOMONAS) - Sepsis resolved - Unclear source - D/D considered: Abdominal source, UTI but negative, no pneumonia, Line in situ- sent for cultures - Afebrile - S/P IV Dopamine drip--changed to levophed later due to ventricular ectopy-- off it since 03/23/16 - Blood cx x 2- pseudomonas. Tip culture/Urine cx- negative. Repeat Blood cultures x 2 - negative - Continue with IV Cefepime per ID (To be continued x 14 days post negative repeat blood cx- Day 09/12). Lactic acid- normal SYMPTOMATIC BRADYCARDIA S/P BIVENTRICULAR PACEMAKER AICD -03/21/16 -Echo shows small circumferential pericardial effusion -EP evaluated patient- interrogated pacemaker and reprogramed the device -On amiodarone BID for Ectopy -Cardiology/EP following HISTORY OF NON ISCHEMIC CARDIOMYOPATHY - Continue atorvastatin, clopidogrel - Held carvedilol, torsemide and Entresto on admission given pressor requirement and JOSUÉ - Started Metoprolol and titrating for Tachycardia, per cardiology A FIB - Coumadin initially held for supratherapeutic INR - Coumadin then restarted post-procedure (pacemaker placement) - Coumadin back on hold for need for tunnel placement for HD- done today . To be restarted - Continued on Amiodarone BID, Toprol titration LEFT SHOULDER PAIN Post fall -X ray- no fracture, chronic rotator cuff tear DM 2 - glycemic pharmacy consulted - continue insulin therapy URINARY RETENTION - Urology consulted - Ruff placed - Continue tamsulosin HISTORY OF CVA - continue Plavix, Atorvastatin - Coumadin on hold in case of need for line placement HISTORY OF PANCREATIC CANCER - s/p Whipple procedure - continue Pancreaze NUTRITION/ASPIRATION + Video swallow test done 03/21/16 - aspirating liquids/solids -Swallow evaluation recommends- NPO--> Feeding tube placed - started on feeds -- > passed repeat video swallow test on 03/27/16--> d/c nasal tube and started on mechanical soft diet. Still complaining of some difficulty swallowing. DVT prophylaxis - Coumadin restarted - SCD's DISPO PT/OT to be continued- will need rehab CODE STATUS Full code as per patient Discussed with significant other by bedside. Vital Signs: Date Time Temp Pulse Resp B/P Pulse Ox O2 Delivery O2 Flow Rate FiO2 03/28/16 16:00 Nasal Cannula 2.0 03/28/16 15:47 36.5 75 18 119/67 98 Nasal Cannula 2.0 03/28/16 11:34 36.6 75 109/58 03/28/16 11:34 75 109/58 03/28/16 11:15 71 109/59 03/28/16 11:00 71 109/68 03/28/16 10:45 76 105/64 03/28/16 10:30 72 112/60 03/28/16 10:15 98 122/66 03/28/16 10:00 77 111/56 03/28/16 09:45 76 114/58 03/28/16 09:30 79 118/59 03/28/16 09:15 70 104/88 03/28/16 09:00 71 113/59 03/28/16 08:45 81 82/48 03/28/16 08:36 74 104/55 03/28/16 08:28 36.7 67 88/57 03/28/16 08:00 36.9 73 18 117/68 100 2.0 03/28/16 07:47 Room Air 03/28/16 04:00 Room Air 03/28/16 03:36 36.8 84 20 115/65 95 Nasal Cannula 2.0 03/28/16 00:00 Room Air 03/27/16 23:18 36.7 82 20 125/65 98 Nasal Cannula 2.0 03/27/16 21:10 100 118/65 03/27/16 20:00 Nasal Cannula 2.0 03/27/16 19:49 36.6 93 20 107/65 97 Nasal Cannula 2.0 Lab Results: Results Past 24 Hours Test 03/27/16 20:05 03/28/16 06:20 03/28/16 07:08 03/28/16 11:57 Range/Units Bedside Glucose 134 155 128 70-99 mg/dl White Blood Count 11.74 4.8-10.8 K/uL Red Blood Count 2.56 4.7-6.1 M/uL Hemoglobin 7.7 14.0-18.0 g/dL Hematocrit 23.2 42-52 % Mean Corpuscular Volume 90.6 80-100 fL Mean Corpuscular Hemoglobin 30.1 25-34 pg Mean Corpuscular Hemoglobin Concent 33.2 32-36 g/dl RDW Standard Deviation 59.7 36.4-46.3 fL RDW Coefficient of Variation 18.5 11.5-14.5 % Platelet Count 232 130-400 K/uL Mean Platelet Volume 10.4 7.4-10.4 fL Prothrombin Time 14.0 9.0-12.0 SECONDS Prothromb Time International Ratio 1.3 0.9-1.1 Sodium Level 138 136-145 mmol/L Potassium Level 4.4 3.5-5.1 mmol/L Chloride Level 103 98-107 mmol/L Carbon Dioxide Level 28 21-32 mmol/L Anion Gap 7.0 3-11 mmol/L Blood Urea Nitrogen 47 7-18 mg/dl Creatinine 2.10 0.60-1.40 mg/dl Est Creatinine Clear Calc Drug Dose 30.9 ml/min Estimated GFR () 33.2 Estimated GFR (Non- 28.7 BUN/Creatinine Ratio 22.3 10-20 Random Glucose 146 70-99 mg/dl Calcium Level 8.6 8.5-10.1 mg/dl Test 03/28/16 16:13 Range/Units Bedside Glucose 152 70-99 mg/dl
[2016-03-28] MEDS: LEValbuterol HFA 15GM INHALER INH PRN (19:55)
[2016-03-28] MEDS: CEFEPIME IV 500 MG in DEXTROSE 5% 100ML 100 ML IV SCH (20:00)
[2016-03-28] MEDS ORDERED: LORAZEPAM 0.5 MG TAB PO STA (23:39)
[2016-03-29] VITALS (9 sets, daily range): BP systolic 116–142; BP diastolic 49–72; PULSE 70–81; TEMP 36.2–36.8; O2SAT 96–100
[2016-03-29] MEDS: ALBUMIN 25% 50 ML with FUROSEMIDE INJ 40 MG IV SCH ×2 (05:19)
[2016-03-29 07:18] LABS: HEMATOCRIT 25.2 % (42-52); MEAN CELL VOLUME 92.6 fL (80-100); MEAN CORPUSCULAR HEMOGLOBIN 30.1 pg (25-34); MEAN CORPUSCULAR HGB CONC 32.5 g/dl (32-36); MEAN PLATELET VOLUME 10.8 fL (7.4-10.4); PLATELET COUNT 264 K/uL (130-400); RED BLOOD COUNT 2.72 M/uL (4.7-6.1); WHITE BLOOD COUNT 11.98 K/uL (4.8-10.8)
[2016-03-29] MEDS: AMIODARONE 200 MG TAB PO SCH ×2 (07:21→16:52)
[2016-03-29] MEDS: PANCREAZE (LIPASE 10,500U) CAP PO SCH ×3 (07:22→16:53)
[2016-03-29 07:23] LABS: INR 1.4 (0.9-1.1); PROTHROMBIN TIME (PATIENT) 15.5 SECONDS (9.0-12.0)
[2016-03-29 07:49] LABS: BUN/CREATININE RATIO 15.1 (10-20); CALCIUM 8.3 mg/dl (8.5-10.1); CREATININE 1.8 mg/dl (0.60-1.40)
[2016-03-29] MEDS: METOPROLOL SUCC 25MG EXT REL TAB PO SCH ×2 (08:14→21:03)
[2016-03-29] MEDS: ATORVASTATIN 10 MG TAB PO SCH (08:14)
[2016-03-29] MEDS: CLOPIDOGREL BISULFATE 75 MG TAB PO SCH (08:14)
[2016-03-29] MEDS: DOCUSATE SODIUM 100 MG/10 ML UDC PO SCH ×2 (08:15→21:00)
[2016-03-29] MEDS: GLUTAMINE 15 GM PO SCH (08:15)
[2016-03-29] MEDS: FLUTICASONE PROPIONATE NA SPR 16 GM BTL NAE SCH (08:15)
[2016-03-29] MEDS: SERTRALINE HCL 50 MG TAB PO SCH (08:15)
[2016-03-29] MEDS: ASCORBIC ACID 500 MG TAB PO SCH (08:15)
[2016-03-29] MEDS: LANSOPRAZOLE SOLUTAB 30 MG PO SCH (08:15)
[2016-03-29] MEDS: INSULIN GLARGINE SOLOSTAR 100 UNITS/ML 3 ML PEN SC SCH (08:24)
[2016-03-29] MEDS: INSULIN ASPART 100 UNITS/ML 3 ML PEN SC SCH ×4 (08:24→21:13)
--- NOTE | 2016-03-29 10:31 | Cardiology Follow-Up ---
Subjective General Date of Service: Mar 29, 2016. Chief Complaint: follow-up shortness of breath, congestive heart failure Pt evaluation today including: conversation w/ patient, physical exam, chart review, lab review, review of studies, review of inpatient medication list History of Present Illness Patient seen and examined. Lone complaint is that of an ongoing dry throat, trouble swallowing, cough. Fluid retention improving. No chest pain. No dyspnea. No orthopnea. No palpitations. Telemetry: Intermittently ventricular paced. Atrial fibrillation with possible aberrant conduction. Intermittent PVC's in singles, couplets, triplets. Allergies Coded Allergies: Lisinopril (Verified Allergy, Unknown, RASH, 06/24/15) Spironolactone (Verified Allergy, Unknown, unkn, 06/24/15) Zolpidem (Verified Adverse Reaction, Unknown, HALLUCINATIONS, 06/24/15) Social History Smoking Status: Former Smoker Hx Tobacco Use In Past Year?: No Hx Alcohol Use - Type And Amou: No Hx Substance Use - Type And Am: No Problem List Medical Problems: (1) Acute bronchitis Status: Acute (2) Chronic renal disease Status: Acute (3) Elevated troponin Status: Acute (4) Influenza Status: Acute (5) Systolic congestive heart failure Status: Acute Physical Exam Vital Signs Last Vital Signs Documentation Date Time Temp Pulse Resp B/P Pulse Ox O2 Delivery O2 Flow Rate FiO2 03/29/16 07:54 36.8 70 18 130/66 96 Room Air 03/29/16 04:00 2.0 Physical Exam Constitutional: Level of Distress: NAD, chronically ill Psychiatric: Orientation: to time, to place, to person Memory: recent memory normal, remote memory normal Head: normocephalic, atraumatic Eyes: EOM: EOMI Neck: pertinent finding (Normal JVP) Lungs: Respiratory effort: good air movement Auscultation: no wheezing, no rales/crackles, no rhonchi, decreased breath sounds Cardiovascular: Heart Auscultation: no murmurs, no rubs, no gallops, irregular rate rhythm Abdomen: Bowel Sounds: normal Extremities: no cyanosis, no clubbing, edema (1+) Neurologic: Cranial Nerves: grossly intact Assessment and Plan Assessment and Plan Complex 80-year-old male with moderately severe left ventricular systolic congestive heart failure out of proportion to his underlying coronary artery disease history, admitted on 03/08/2016 following a syncope episode. Course notable for symptomatic bradycardia status post 03/21/2016 BiV ICD implantation , metabolic encephalopathy secondary to pseudomonas sepsis, acute kidney injury on top of the chronic cardiorenal issues requiring dialysis, urinary retention, anemia, swallowing difficulty. Patient with chronic atrial fibrillation with difficult to control ventricular rates along with complex ventricular ectopy. RECOMMENDATIONS/PLAN: Increase evidenced based beta-mansi therapy Continue Amiodarone 200 mg twice a day. Continue statin, clopidogrel, and Coumadin anticoagulation. Increase activities as tolerated. ? PRN Adam Kaur Patient seen and examined. Assessment as above. Tolerating increased beta mansi with less ventricular ectopy on telemetry. Romel Srivastava MD Laboratory Results Last 24 Hours Test 03/28/16 11:57 03/28/16 16:13 03/28/16 20:22 03/29/16 06:40 Bedside Glucose 128 mg/dl 152 mg/dl 194 mg/dl White Blood Count 11.98 K/uL Red Blood Count 2.72 M/uL Hemoglobin 8.2 g/dL Hematocrit 25.2 % Mean Corpuscular Volume 92.6 fL Mean Corpuscular Hemoglobin 30.1 pg Mean Corpuscular Hemoglobin Concent 32.5 g/dl RDW Standard Deviation 60.8 fL RDW Coefficient of Variation 19.0 % Platelet Count 264 K/uL Mean Platelet Volume 10.8 fL Prothrombin Time 15.5 SECONDS Prothromb Time International Ratio 1.4 Sodium Level 138 mmol/L Potassium Level 4.0 mmol/L Chloride Level 103 mmol/L Carbon Dioxide Level 26 mmol/L Anion Gap 9.0 mmol/L Blood Urea Nitrogen 27 mg/dl Creatinine 1.80 mg/dl Est Creatinine Clear Calc Drug Dose 36.0 ml/min Estimated GFR () 40.0 Estimated GFR (Non- 34.5 BUN/Creatinine Ratio 15.1 Random Glucose 148 mg/dl Calcium Level 8.3 mg/dl Test 03/29/16 06:47 Bedside Glucose 151 mg/dl
--- NOTE | 2016-03-29 11:07 | Pharmacy Progress Note ---
Glycemic: Assessment & Plan Date of Service Mar 29, 2016. Assessment & Plan Outpatient Anti-diabetic Regimen: * Novolog 70/30 mix 28 units w/ breakfast + 12 units with dinner * A1c = 8.2 % 03/09/16 ASSESSMENT: 03/29/16: * Patient's BSGs have been very reasonable past 48 hours on current regimen. ( BSGs ranging from 128 -194 mg/dL). * No changes at this time. * Pharmacy will continue to follow and make adjustments to insulin regimen if needed. 03/27/16 * Patient's BSGs have been within or near goal range for the past 24 hours. * Patient transitioned to Regular insulin today with q6hr BSGs. Dose adjusted accordingly to maintain equivalent CHO coverage. * Patient was switched from tube feeds to a diet at lunch time. * Type 2 diabetic/AHA/low potassium, mechanical soft, 1500mL fluid restriction * Due to the transitioning of insulin this morning, slight deficit in carb coverage. Therefore, pre-lunch BSG elevated (236). * Will switch back to Novolog again for meal coverage and adjust as diet advances. PLAN FOR INPATIENT GLYCEMIC CONTROL: * Lantus 5 units SQ Q AM * Correctional/prandial Insulin with NOVOLOG, accu-checks ACHS * Goal Range to Low 120 mg/dL - High 160 mg/dL * Continue Correction Factor of 30 mg/dL/unit * Carb ratio: 1 unit per 12 gm CHO consumed * Please note that the plan above was derived based on current level of insulin resistance and hospital stress. These recommendations are appropriate for inpatient admission only. Plan of care upon discharge will need to be reassessed to avoid potential outpatient hypo/hyperglycemia. Thank you.
[2016-03-29] MEDS: LEValbuterol HFA 15GM INHALER INH PRN (12:53)
[2016-03-29] MEDS ORDERED: MAGIC SWIZZLE PO PRN (13:15)
--- NOTE | 2016-03-29 13:26 | Progress Note ---
Internal Med Progress Note Date of Service: Mar 29, 2016. Provider Documentation: SUBJECTIVE: Patient was transferred out of ICU on 03/25/16 Patient still c/o difficulty swallowing and occasional burning. C/o neck pain/ left shoulder pain. BMs better No fever, new cough, chest pain, nausea, vomiting, abd pain, urinary symptoms Tele- continues to have ectopy OBJECTIVE: Vital Signs-as noted below Exam: General-AAOX3, no distress Eyes-EOMI; no scleral icterus Neck-no JVD Lungs-coarse breath sounds anteriorly Heart-irregularly irregular Abdomen-soft; NTND; normal BS Extremities-edema ; Able to abduct left shoulder to > 90 degrees Neuro-no gross focal deficits Skin - dialysis catheter present Lab data as noted below. Procedures: CT head Interval right parietal infarct. No acute intracranial findings. CT c-spine Findings of severe degenerative change combined with extensive posterior laminectomy defects. No acute process is appreciated. TTE * The study was technically limited. * The left ventricle is moderately dilated. * Left ventricular systolic function is moderate to severely reduced. * Ejection Fraction = 30-35%. * The right ventricular systolic function is normal. * There is mild mitral regurgitation. Renal ultrasound 1. there is mild hydronephrosis right kidney. 2. Several left renal cyst. 3. Complex cyst mid to lower aspect right kidney. 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 Found to have symptomatic bradycardia, sick sinus syndrome, s/p biventricular pacemaker 03/12/16. Later got sepsis /bacteremia (pseudomonas) (febrile, rigors , hypotensive).-unclear source. Supposed to be on IV antibiotics for 14 days post repeat bl cultures negative. His creatinine continued to worsen leading to mental status changes. Eventually was started on dialysis on . New permanent dialysis line placed on 03/26, temporary removed. Mental status improved-back to baseline- AAOX3. Passed video swallow study on 03/27/16 and NG tube was removed--> started on mechanical soft diet. Coumadin was restarted too on 03/26/16 post tunnel line placement for HD. Overall improving after a prolonged ICU/hospitalization course. Continues to have poor swallowing, Hb fluctuating. ASSESSMENT/PLAN JOSUÉ (baseline CKD stage 3) - Improving - Newly started on Dialysis on 03/23/16; Temporary dialysis catheter placed on 03/21/16. Underwent permanent dialysis catheter placement on 03/26/16 - Received albumin and IVF's with sodium bicarbonate, then intermittently diuresed with furosemide vs bumetanide given volume status - Held torsemide and Entresto (home medications) - Renal ultrasound with mild hydronephrosis, not thought to be contributory - Nephrology on board. Plan: Continue dialysis, but hopefully this would just be temporary and eventually should be able to take him off as beginning to make urine and creatinine improving ANEMIA Hb dropped to 7.7--> today up to 8.8 -Transfuse if drops below 8. DIFFICULTY SWALLOWING: Unclear etiology. No thrush. Has not had intubations this admission. Had not had PO intake for long while in ICU due to aspiration -Will start magic swizzles PRN -Mechanical soft diet SEPSIS/BACTEREMIA ( PSEUDOMONAS) - Sepsis resolved - Unclear source - D/D considered: Abdominal source, UTI but negative, no pneumonia, Line in situ- sent for cultures - Afebrile - S/P IV Dopamine drip--changed to levophed later due to ventricular ectopy-- off it since 03/23/16 - Blood cx x 2- pseudomonas. Tip culture/Urine cx- negative. Repeat Blood cultures x 2 - negative - Continue with IV Cefepime per ID (To be continued x 14 days post negative repeat blood cx- Day 714). Lactic acid- normal SYMPTOMATIC BRADYCARDIA S/P BIVENTRICULAR PACEMAKER AICD -03/21/16 -Echo shows small circumferential pericardial effusion -S/P EP evaluation- interrogated pacemaker and reprogramed the device -On amiodarone BID for Ectopy, ongoing . Titrating Metoprolol --> Increased to 37.5 mg BID from 25 mg bid today -Cardiology following. S/P EP evaluation HISTORY OF NON ISCHEMIC CARDIOMYOPATHY - Continue atorvastatin, clopidogrel - Discontinued carvedilol, torsemide and Entresto on admission given pressor requirement and JOSUÉ and changes in medications - Started Metoprolol and titrating for Tachycardia, per cardiology A FIB - Coumadin initially held for supra therapeutic INR - Coumadin then restarted post-procedure (pacemaker placement) - Coumadin back on hold for need for tunnel placement for HD- done on 03/26 . Restarted - Continued on Amiodarone BID, Toprol titration--> Increased to 37.5 mg BID from 25 mg bid today LEFT SHOULDER PAIN Post fall -X ray- no fracture, chronic rotator cuff tear DM 2 - glycemic pharmacy consulted - continue insulin therapy URINARY RETENTION - Urology consulted - Ruff placed - Continue tamsulosin HISTORY OF CVA - continue Plavix, Atorvastatin - Coumadin on hold in case of need for line placement HISTORY OF PANCREATIC CANCER - s/p Whipple procedure - continue Pancreaze NUTRITION/ASPIRATION + Video swallow test done 03/21/16 - aspirating liquids/solids -Swallow evaluation recommends- NPO --> Feeding tube placed - started on feeds - -> passed repeat video swallow test on 03/27/16 --> d/c nasal tube and started on mechanical soft diet 2 days ago. Still complaining of some difficulty swallowing. DVT prophylaxis - Coumadin restarted - SCD's DISPO PT/OT to be continued- will need rehab once stable Continues to have ectopy, titrating medications, so need to monitor. Monitor diet intake CODE STATUS Full code as per patient Discussed with significant other by bedside. Vital Signs: Date Time Temp Pulse Resp B/P Pulse Ox O2 Delivery O2 Flow Rate FiO2 03/29/16 12:57 20 100 Nasal Cannula 2.0 03/29/16 12:00 Room Air 03/29/16 11:31 36.8 81 18 142/49 96 03/29/16 07:54 36.8 70 18 130/66 96 Room Air 03/29/16 07:52 Room Air 03/29/16 04:04 36.7 73 18 129/64 97 Room Air 03/29/16 04:00 Nasal Cannula 2.0 03/28/16 23:38 36.8 76 20 119/68 100 Nasal Cannula 2.0 03/28/16 23:20 Nasal Cannula 2.0 03/28/16 19:59 36.5 76 18 115/64 100 Nasal Cannula 2.0 03/28/16 19:59 72 105/69 03/28/16 19:40 Nasal Cannula 2.0 03/28/16 16:00 Nasal Cannula 2.0 03/28/16 15:47 36.5 75 18 119/67 98 Nasal Cannula 2.0 Lab Results: Results Past 24 Hours Test 03/28/16 16:13 03/28/16 20:22 03/29/16 06:40 03/29/16 06:47 Range/Units Bedside Glucose 152 194 151 70-99 mg/dl White Blood Count 11.98 4.8-10.8 K/uL Red Blood Count 2.72 4.7-6.1 M/uL Hemoglobin 8.2 14.0-18.0 g/dL Hematocrit 25.2 42-52 % Mean Corpuscular Volume 92.6 80-100 fL Mean Corpuscular Hemoglobin 30.1 25-34 pg Mean Corpuscular Hemoglobin Concent 32.5 32-36 g/dl RDW Standard Deviation 60.8 36.4-46.3 fL RDW Coefficient of Variation 19.0 11.5-14.5 % Platelet Count 264 130-400 K/uL Mean Platelet Volume 10.8 7.4-10.4 fL Prothrombin Time 15.5 9.0-12.0 SECONDS Prothromb Time International Ratio 1.4 0.9-1.1 Sodium Level 138 136-145 mmol/L Potassium Level 4.0 3.5-5.1 mmol/L Chloride Level 103 98-107 mmol/L Carbon Dioxide Level 26 21-32 mmol/L Anion Gap 9.0 3-11 mmol/L Blood Urea Nitrogen 27 7-18 mg/dl Creatinine 1.80 0.60-1.40 mg/dl Est Creatinine Clear Calc Drug Dose 36.0 ml/min Estimated GFR () 40.0 Estimated GFR (Non- 34.5 BUN/Creatinine Ratio 15.1 10-20 Random Glucose 148 70-99 mg/dl Calcium Level 8.3 8.5-10.1 mg/dl Test 03/29/16 11:12 Range/Units Bedside Glucose 191 70-99 mg/dl
[2016-03-29] MEDS: WARFARIN SOD 2.5 MG TAB PO SCH (16:50)
[2016-03-29] MEDS: CEFEPIME IV 1,000 MG in DEXTROSE 5% 100ML 100 ML IV SCH (20:58)
[2016-03-29] MEDS: ONDANSETRON INJ 2 MG/ML 2 ML VIAL IV PRN (21:10)
[2016-03-29] MEDS: LIDOCAINE HCL 2% VISCOUS SOLN 60 ML, DiphenhydrAMINE HCL SYRUP 150 MG, ALUMINUM/MAGNESI... MT PRN ×4 (21:16)
[2016-03-30] VITALS (27 sets, daily range): BP systolic 93–125; BP diastolic 49–71; PULSE 50–99; TEMP 36.4–37; O2SAT 90–100
[2016-03-30] MEDS: ACETAMINOPHEN 325 MG TAB PO PRN (00:29)
[2016-03-30 05:53] LABS: HEMATOCRIT 24.4 % (42-52); MEAN CELL VOLUME 91.7 fL (80-100); MEAN CORPUSCULAR HEMOGLOBIN 29.7 pg (25-34); MEAN CORPUSCULAR HGB CONC 32.4 g/dl (32-36); MEAN PLATELET VOLUME 10.2 fL (7.4-10.4); PLATELET COUNT 276 K/uL (130-400); RED BLOOD COUNT 2.66 M/uL (4.7-6.1); WHITE BLOOD COUNT 9.98 K/uL (4.8-10.8)
[2016-03-30 06:04] LABS: INR 1.7 (0.9-1.1); PROTHROMBIN TIME (PATIENT) 18.4 SECONDS (9.0-12.0)
[2016-03-30 06:23] LABS: BUN/CREATININE RATIO 13.6 (10-20); CALCIUM 8.1 mg/dl (8.5-10.1); POTASSIUM 3.8 mmol/L (3.5-5.1)
[2016-03-30] MEDS: INSULIN ASPART 100 UNITS/ML 3 ML PEN SC SCH ×5 (06:33→20:39)
[2016-03-30] MEDS: LIDOCAINE HCL 2% VISCOUS SOLN 60 ML, DiphenhydrAMINE HCL SYRUP 150 MG, ALUMINUM/MAGNESI... MT PRN ×4 (07:17)
[2016-03-30] MEDS: LANSOPRAZOLE SOLUTAB 30 MG PO SCH (07:18)
[2016-03-30] MEDS: AMIODARONE 200 MG TAB PO SCH ×2 (07:18→18:29)
[2016-03-30] MEDS: ATORVASTATIN 10 MG TAB PO SCH (07:18)
[2016-03-30] MEDS: PANCREAZE (LIPASE 10,500U) CAP PO SCH ×3 (07:19→18:28)
[2016-03-30] MEDS: CLOPIDOGREL BISULFATE 75 MG TAB PO SCH (07:19)
[2016-03-30] MEDS: METOPROLOL SUCC 25MG EXT REL TAB PO SCH (07:20)
[2016-03-30] MEDS: SERTRALINE HCL 50 MG TAB PO SCH (07:21)
[2016-03-30] MEDS: DOCUSATE SODIUM 100 MG/10 ML UDC PO SCH ×2 (07:22→20:37)
[2016-03-30] MEDS: GLUTAMINE 15 GM PO SCH (07:22)
[2016-03-30] MEDS: ASCORBIC ACID 500 MG TAB PO SCH (07:23)
[2016-03-30] MEDS: CALCITRIOL 0.25 MCG CAP PO SCH (07:23)
[2016-03-30] MEDS: FLUTICASONE PROPIONATE NA SPR 16 GM BTL NAE SCH (07:25)
[2016-03-30] MEDS: INSULIN GLARGINE SOLOSTAR 100 UNITS/ML 3 ML PEN SC SCH (09:00)
[2016-03-30] MEDS ORDERED: POLYETHYLENE (MIRALAX) 17 GM PACK PO PRN ×2 (09:00)
--- NOTE | 2016-03-30 09:47 | Cardiology Follow-Up ---
Subjective General Date of Service: Mar 30, 2016. Chief Complaint: follow-up shortness of breath, congestive heart failure Pt evaluation today including: conversation w/ patient, physical exam, chart review, lab review, review of studies, review of inpatient medication list History of Present Illness Patient seen and examined. Dry throat, trouble swallowing, cough improved with the use of Magic Swizzle. Fluid retention improving. Scheduled for dialysis today at 14:00 No chest pain. No dyspnea. No orthopnea. No palpitations. Telemetry: Intermittently ventricular paced. Atrial fibrillation with possible aberrant conduction. Intermittent PVC's in singles and couplets; ventricular ectopy has considerably improved with gradual uptitration of beta-mansi therapy. Allergies Coded Allergies: Lisinopril (Verified Allergy, Unknown, RASH, 06/24/15) Spironolactone (Verified Allergy, Unknown, unkn, 06/24/15) Zolpidem (Verified Adverse Reaction, Unknown, HALLUCINATIONS, 06/24/15) Social History Smoking Status: Former Smoker Hx Tobacco Use In Past Year?: No Hx Alcohol Use - Type And Amou: No Hx Substance Use - Type And Am: No Problem List Medical Problems: (1) Acute bronchitis Status: Acute (2) Chronic renal disease Status: Acute (3) Elevated troponin Status: Acute (4) Influenza Status: Acute (5) Systolic congestive heart failure Status: Acute Physical Exam Vital Signs Last Vital Signs Documentation Date Time Temp Pulse Resp B/P Pulse Ox O2 Delivery O2 Flow Rate FiO2 03/30/16 08:00 96 Nasal Cannula 2.0 03/30/16 07:52 36.6 70 18 113/67 Physical Exam Constitutional: Level of Distress: NAD, chronically ill Psychiatric: Orientation: to time, to place, to person Memory: recent memory normal, remote memory normal Head: normocephalic, atraumatic Eyes: EOM: EOMI Neck: pertinent finding (Normal JVP) Lungs: Respiratory effort: good air movement Auscultation: no wheezing, no rales/crackles, no rhonchi, decreased breath sounds Cardiovascular: Heart Auscultation: no murmurs, no rubs, no gallops, irregular rate rhythm Abdomen: Bowel Sounds: normal Extremities: no cyanosis, no clubbing, edema (1+) Neurologic: Cranial Nerves: grossly intact Assessment and Plan Assessment and Plan Complex 80-year-old male with moderately severe left ventricular systolic congestive heart failure out of proportion to his underlying coronary artery disease history, admitted on 03/08/2016 following a syncope episode. Course notable for symptomatic bradycardia status post 03/21/2016 BiV ICD implantation , metabolic encephalopathy secondary to pseudomonas sepsis, acute kidney injury on top of the chronic cardiorenal issues requiring dialysis, urinary retention, anemia, swallowing difficulty. Patient with chronic atrial fibrillation with difficult to control ventricular rates along with complex ventricular ectopy. RECOMMENDATIONS/PLAN: Increase Toprol XL to 50 mg twice a day Continue Amiodarone 200 mg BID, statin, clopidogrel, Coumadin anticoagulation. Increase activities as tolerated. Please call if any problems Laboratory Results Last 24 Hours Test 03/29/16 11:12 03/29/16 20:09 03/30/16 00:28 03/30/16 05:41 Bedside Glucose 191 mg/dl 182 mg/dl 149 mg/dl White Blood Count 9.98 K/uL Red Blood Count 2.66 M/uL Hemoglobin 7.9 g/dL Hematocrit 24.4 % Mean Corpuscular Volume 91.7 fL Mean Corpuscular Hemoglobin 29.7 pg Mean Corpuscular Hemoglobin Concent 32.4 g/dl RDW Standard Deviation 60.4 fL RDW Coefficient of Variation 19.1 % Platelet Count 276 K/uL Mean Platelet Volume 10.2 fL Prothrombin Time 18.4 SECONDS Prothromb Time International Ratio 1.7 Sodium Level 137 mmol/L Potassium Level 3.8 mmol/L Chloride Level 101 mmol/L Carbon Dioxide Level 28 mmol/L Anion Gap 8.0 mmol/L Blood Urea Nitrogen 27 mg/dl Creatinine 2.00 mg/dl Est Creatinine Clear Calc Drug Dose 32.4 ml/min Estimated GFR () 35.2 Estimated GFR (Non- 30.4 BUN/Creatinine Ratio 13.6 Random Glucose 143 mg/dl Calcium Level 8.1 mg/dl Test 03/30/16 06:29 Bedside Glucose 152 mg/dl
[2016-03-30] MEDS ORDERED: INSULIN GLARGINE SOLOSTAR 100 UNITS/ML 3 ML PEN SC ONE (10:45)
--- NOTE | 2016-03-30 10:50 | Pharmacy Progress Note ---
Glycemic: Assessment & Plan Date of Service Mar 30, 2016. Assessment & Plan Outpatient Anti-diabetic Regimen: * Novolog 70/30 mix 28 units w/ breakfast + 12 units with dinner * A1c = 8.2 % 03/09/16 ASSESSMENT: 03/30/16 * Patient received 16 units of insulin yesterday, with BSGs ranging from 148 - 191 mg/dL. * Patient is to be dialyzed today (M,W,F). * Patient is tolerating diet, but has some difficulty with swallowing d/t prolonged NPO period earlier during admission. * Carb intake has been quite low, but appears to be improving slowly. * No changes to current regimen. Will continue to follow. * Recent A1c (8.2%) indicates reasonable outpatient glycemic control in an 80yo male with multiple co-morbidities. Although insulin use during admission has differed greatly from home regimen, expect that he may be okay to resume home dosing upon discharge if diet continues to advance to baseline. Will continue to follow and make some recommendations for discharge as it approaches. 03/29/16 * Patient's BSGs have been very reasonable past 48 hours on current regimen. ( BSGs ranging from 128 -194 mg/dL). * No changes at this time. 03/27/16 * Patient's BSGs have been within or near goal range for the past 24 hours. * Patient transitioned to Regular insulin today with q6hr BSGs. Dose adjusted accordingly to maintain equivalent CHO coverage. * Patient was switched from tube feeds to a diet at lunch time. * Type 2 diabetic/AHA/low potassium, mechanical soft, 1500mL fluid restriction * Due to the transitioning of insulin this morning, slight deficit in carb coverage. Therefore, pre-lunch BSG elevated (236). * Will switch back to Novolog again for meal coverage and adjust as diet advances. PLAN FOR INPATIENT GLYCEMIC CONTROL: * Lantus 5 units SQ Q AM * Correctional/prandial Insulin with NOVOLOG, accu-checks ACHS * Correction Factor: 30 mg/dL/unit * Carb ratio: 1 unit per 12 gm CHO consumed * Goal Range: Low 120 mg/dL - High 160 mg/dL * Please note that the plan above was derived based on current level of insulin resistance and hospital stress. These recommendations are appropriate for inpatient admission only. Plan of care upon discharge will need to be reassessed to avoid potential outpatient hypo/hyperglycemia. Thank you.
[2016-03-30] MEDS ORDERED: COUGH DROP (SUGAR FREE) LOZ 24 LOZ/1 BOX ONE (11:33)
--- NOTE | 2016-03-30 13:38 | Progress Note ---
Medicine Progress Note Date & Time of Visit: Mar 30, 2016 at 13:37 . Subjective Gradually improving. Afebrile. Strength improved. Has some discomfort when swallowing. Occasional nonproductive cough. No chest pain. No nausea, vomiting, diarrhea. Still has Ruff catheter; urine output improved. . Objective Last 8 Hrs Date Time Temp Pulse Resp B/P Pulse Ox O2 Delivery O2 Flow Rate FiO2 03/30/16 11:56 36.4 78 18 115/70 100 Nasal Cannula 2.0 03/30/16 11:18 97 Nasal Cannula 2.0 03/30/16 08:00 96 Nasal Cannula 2.0 03/30/16 07:52 36.6 70 18 113/67 90 Room Air Physical Exam: General- no distress Eyes- anicteric ENT- mild erythema tongue Neck- + JVD Lungs- few basilar rales Heart- regular, occasional ectopy, gallop appreciated Abdomen- normal bowel sounds, soft, nontender Extremities- 1+ pretibial edema Neuro- alert, oriented . Laboratory Results: Last 24 Hours Test 03/29/16 20:09 03/30/16 00:28 03/30/16 05:41 03/30/16 06:29 Bedside Glucose 182 mg/dl 149 mg/dl 152 mg/dl White Blood Count 9.98 K/uL Red Blood Count 2.66 M/uL Hemoglobin 7.9 g/dL Hematocrit 24.4 % Mean Corpuscular Volume 91.7 fL Mean Corpuscular Hemoglobin 29.7 pg Mean Corpuscular Hemoglobin Concent 32.4 g/dl RDW Standard Deviation 60.4 fL RDW Coefficient of Variation 19.1 % Platelet Count 276 K/uL Mean Platelet Volume 10.2 fL Prothrombin Time 18.4 SECONDS Prothromb Time International Ratio 1.7 Sodium Level 137 mmol/L Potassium Level 3.8 mmol/L Chloride Level 101 mmol/L Carbon Dioxide Level 28 mmol/L Anion Gap 8.0 mmol/L Blood Urea Nitrogen 27 mg/dl Creatinine 2.00 mg/dl Est Creatinine Clear Calc Drug Dose 32.4 ml/min Estimated GFR () 35.2 Estimated GFR (Non- 30.4 BUN/Creatinine Ratio 13.6 Random Glucose 143 mg/dl Calcium Level 8.1 mg/dl Test 03/30/16 11:25 Bedside Glucose 197 mg/dl Assessment & Plan CORONARY ARTERY DISEASE No anginal symptoms. Continue clopidogrel and metoprolol. CHF Chronic left ventricular systolic heart failure. Echo on 03/09/16 demonstrated LVEF of 30-35 percent. No BRANDON or ARB due to acute on chronic kidney disease. Continue metoprolol succinate and furosemide. CARDIAC ARRHYTHMIAS Bradycardic day of admission. Beta mansi was held. Cardiology consulted. External pacing was attempted, but not well tolerated. Started on dopamine for inotropic support. Biventricular pacemaker placed on 03/12/16. Chronic atrial fibrillation. Frequent PVCs and nonsustained ventricular tachycardia. Received amiodarone with improvement. Continue metoprolol, amiodarone, warfarin. HYPERTENSION Blood pressures well-controlled. Continue metoprolol. CEREBROVASCULAR DISEASE Continue clopidogrel. CKD III / ACUTE KIDNEY INJURY Baseline creatinine 1.9 in May 2015. Serum creatinine 2.6 on admission and darcy as high as 6.7. Nephrology consulted. Suspected acute tubular necrosis. Required hemodialysis. Appears to be recovering from ATN. Urine output improved. Serum creatinine today = 2.0 Continue hemodialysis as directed by nephrology. DM TYPE 2 Random blood sugar on admission 66. Hemoglobin A1c 8.2. Receiving Lantus and NovoLog per protocol. Fasting blood sugar today = 152 ANEMIA HISTORY PANCREATIC CA S/P [place]. Continue pancreatic enzymes. SEPSIS Patient was hypotensive the day of admission; blood cultures negative at that time. Developed fever on 03/19/16. 2/2 blood cultures grew Pseudomonas aeruginosa. Source uncertain- urine culture negative, central venous catheter tip negative. Receiving cefepime. Afebrile. VTE PROPHYLAXIS SCDs ordered. Titrate warfarin. Ambulate. DISPOSITION Anticipated need for inpatient rehabilitation. Family Medicine follow-up with Dr. Ferrer. . Discharge planning: rehab hospital Consultants: Critical care Nephrology Cardiology Urology Procedures: CT head Interval right parietal infarct. No acute intracranial findings. CT c-spine Findings of severe degenerative change combined with extensive posterior laminectomy defects. No acute process is appreciated. TTE * The study was technically limited. * The left ventricle is moderately dilated. * Left ventricular systolic function is moderate to severely reduced. * Ejection Fraction = 30-35%. * The right ventricular systolic function is normal. * There is mild mitral regurgitation. Renal ultrasound 1. there is mild hydronephrosis right kidney. 2. Several left renal cyst. 3. Complex cyst mid to lower aspect right kidney. Current Inpatient Medications: Current Inpatient Medications Medications (Trade) Dose Ordered Sig/Quoc Route Start Time Stop Time Status Last Admin Dose Admin Nitroglycerin (Nitrostat Tab) 0.4 mg UD PRN SL 03/08/16 17:00 04/07/16 16:59 03/14/16 08:34 0.4 MG Glucose (Glucose 40% Gel) 15-30 GRAMS 15 GRAMS... UD PRN PO 03/08/16 17:15 04/07/16 17:14 Glucose (Glucose Chew Tab) 4-8 Tablets 4 Tabl... UD PRN PO 03/08/16 17:15 04/07/16 17:14 Dextrose (Dextrose 50% 50ML Syringe) 25-50ML OF 50% DW IV FOR... UD PRN IV 03/08/16 17:15 04/07/16 17:14 03/21/16 18:22 50 ML Glucagon (Glucagon Inj) 1 mg UD PRN SQ 03/08/16 17:15 04/07/16 17:14 Miscellaneous Information (Consult Glycemic Management Pharmacy) 1 ea UD PRN N/A 03/08/16 19:45 04/07/16 19:44 Atorvastatin Calcium (Lipitor Tab) 10 mg DAILY PO 03/09/16 09:00 04/08/16 08:59 03/30/16 07:18 10 MG Clopidogrel Bisulfate (plAVix TAB) 75 mg DAILY PO 03/09/16 09:00 04/08/16 08:59 Future hold 03/30/16 07:19 75 MG Fluticasone Propionate (Flonase Nasal [place]) 2 sprays DAILY RICHA 03/09/16 09:00 04/08/16 08:59 03/30/16 07:25 2 SPRAYS Levalbuterol (Xopenex Hfa Inhaler) 2 puffs Q4H PRN INH 03/08/16 17:30 04/07/16 17:29 03/29/16 12:53 2 PUFFS Sertraline HCl (Zoloft Tab) 25 mg DAILY PO 03/09/16 09:00 04/08/16 08:59 03/30/16 07:21 25 MG Miscellaneous Information (Order Awaiting Action) 1 ea QS N/A 03/08/16 19:45 04/07/16 19:44 Amylase/Lipase/ Protease (Pancreaze (Lipase 10,500U) Cap) 1-2 CAPS WITH SNACKS UD PRN PO 03/08/16 19:45 04/07/16 19:44 Acetaminophen (Tylenol Tab) 650 mg Q4H PRN PO 03/12/16 09:30 04/11/16 09:29 03/30/16 00:29 650 MG Warfarin Sodium (Coumadin Tab) 2.5 mg DAILY@16 PO 03/13/16 16:00 04/12/16 15:59 Future hold 03/29/16 16:50 2.5 MG Ondansetron HCl (Zofran Inj) 4 mg Q4H PRN IV 03/14/16 08:45 04/13/16 08:44 03/29/16 21:10 4 MG Amiodarone HCl (Cordarone Tab) 200 mg BIDM PO 03/14/16 16:30 04/13/16 16:29 03/30/16 07:18 200 MG Bisacodyl (Dulcolax Supp) 10 mg DAILY PRN MD 03/16/16 09:45 04/15/16 09:44 Future Hold 03/17/16 10:10 10 MG Cefepime HCl (Consult) 1 ea UD PRN N/A 03/19/16 10:15 04/03/16 23:59 Calcitriol (Rocaltrol Cap) 0.25 mcg MoWeFr@0900 PO 03/21/16 09:00 04/20/16 08:59 03/30/16 07:23 0.25 MCG Docusate Sodium (coLACE SYRUP) 100 mg BID PO 03/22/16 21:00 04/21/16 20:59 Future hold 03/30/16 07:22 100 MG Lansoprazole (Prevacid Solutab) 30 mg QAM PO 03/23/16 09:00 04/22/16 08:59 03/30/16 07:18 30 MG Ascorbic Acid (Vitamin C Tab) 1,000 mg QAM PO 03/24/16 09:00 04/23/16 08:59 03/30/16 07:23 1,000 MG Glutamine (Glutasolve) 10 gm DAILY PO 03/25/16 09:00 04/24/16 08:59 03/30/16 07:22 10 GM Insulin Glargine (Lantus Solostar Pen) 5 unit QAM SC 03/26/16 09:00 04/25/16 08:59 Future hold 03/30/16 09:00 5 UNIT Insulin Aspart SLIDING SCALE G... ACHS SC 03/27/16 12:30 04/26/16 12:29 03/30/16 12:00 3 UNITS Cefepime HCl/ Dextrose (Maxipime IV/D5 100ml) 111.3 ml @ 200 mls/hr Q24H IV 03/29/16 20:00 04/03/16 23:59 03/29/16 20:58 200 MLS/HR Polyethylene (Miralax Powder Packet) 17 gm DAILY PRN PO 03/30/16 09:00 04/29/16 08:59 Metoprolol Succinate 50 mg 50 mg BID PO 03/30/16 21:00 04/29/16 20:59 Furosemide/Syringe (Lasix Inj/ Syringe) 6 ml @ 4 mls/min BID IV 03/30/16 21:00 04/29/16 20:59 UNV Amylase/Lipase/ Protease (Pancreaze (Lipase 10,500U) Cap) 2 cap AC PO 03/30/16 16:15 04/29/16 16:14 UNV
--- NOTE | 2016-03-30 13:53 | NEPHROLOGY PROGRESS NOTE ---
DATE: 03/30/2016 SUBJECTIVE: The patient is doing better. He seems stronger and was able to have a more strong conversation with me today than the last few days. He is making urine. His urine output yesterday was 1430 mL and the urine is also getting more clear. He denies any symptoms. He does have some weakness and shortness of breath which is to be expected as he has been in the hospital for more than 2 weeks now. PHYSICAL EXAMINATION: VITAL SIGNS: Blood pressure 115/70, 100% on 2 liter nasal cannula, pulse 78 per minute, temperature 36.4. HEENT: Mucous membrane is moist. NECK: Supple. No jugular venous distention. CHEST: Bilateral decreased breath sounds and occasional crackles. CARDIOVASCULAR: S1 and S2, regular. ABDOMEN: Soft, nontender. EXTREMITIES: Shows 2+ edema extending all the way into the upper thigh as well as upper extremity edema. LABORATORY TESTS: From this morning shows sodium 137, potassium 3.8, BUN 27, creatinine 2.0. Calcium 8.1. Hemoglobin 7.9, platelet count 276, WBC count 9.98. ASSESSMENT AND PLAN: An 80-year-old male with acute kidney injury/acute tubular necrosis with multiple insults to the kidney, has been in the hospital for more than 2 weeks now. 1. Acute renal failure. This is from acute tubular necrosis. However, he has had significant renal recovery as evidenced by a much lower creatinine and increasing urine output. I do not think he will be a long-term dialysis patient. He will be having dialysis later today. Will try to take about 2-3 kilo off. I would also write her Lasix 60 mg IV twice daily to mobilize his fluid overload. He does have extensive edema at both upper and lower extremities. Hemoglobin is also low. If it goes below 7, please consider blood transfusion. I am not planning to remove the dialysis catheter over the weekend. If everything remains stable, we can tentatively plan to remove the dialysis catheter on Saturday. CM
[2016-03-30] MEDS ORDERED: MAGIC MOUTHWASH PO SCH (16:15)
[2016-03-30] MEDS: FUROSEMIDE INJ 60 MG in SYRINGE 0 ML IV SCH (18:27)
[2016-03-30] MEDS: DEXAMETHASONE CONC SOLN 3.75 MG, NYSTATIN SUSP 30 ML, DiphenhydrAMINE HCL SYRUP 300 MG,... PO SCH ×10 (18:28→20:38)
[2016-03-30] MEDS: WARFARIN SOD 2.5 MG TAB PO SCH (18:29)
[2016-03-30] MEDS: METOPROLOL SUCC 50MG EXT REL TAB PO SCH (20:36)
[2016-03-30] MEDS: CEFEPIME IV 1,000 MG in DEXTROSE 5% 100ML 100 ML IV SCH (20:36)
[2016-03-30] MEDS ORDERED: METOPROLOL SUCC 25MG EXT REL TAB PO SCH (21:00)
[2016-03-31 03:01] VITALS: BP 99/61; PULSE 69; TEMP 36.5; O2SAT 95
[2016-03-31] MEDS: ACETAMINOPHEN 325 MG TAB PO PRN (03:02)
[2016-03-31] MEDS: DEXAMETHASONE CONC SOLN 3.75 MG, NYSTATIN SUSP 30 ML, DiphenhydrAMINE HCL SYRUP 300 MG,... PO SCH ×20 (06:13→21:58)
[2016-03-31 07:21] LABS: HEMATOCRIT 23.2 % (42-52); MEAN CELL VOLUME 92.4 fL (80-100); MEAN CORPUSCULAR HEMOGLOBIN 29.9 pg (25-34); MEAN CORPUSCULAR HGB CONC 32.3 g/dl (32-36); MEAN PLATELET VOLUME 10.7 fL (7.4-10.4); PLATELET COUNT 283 K/uL (130-400); RED BLOOD COUNT 2.51 M/uL (4.7-6.1); WHITE BLOOD COUNT 8.01 K/uL (4.8-10.8)
[2016-03-31 07:35] LABS: INR 1.9 (0.9-1.1); PROTHROMBIN TIME (PATIENT) 21.2 SECONDS (9.0-12.0)
[2016-03-31 07:45] LABS: BUN/CREATININE RATIO 11.4 (10-20); CALCIUM 7.6 mg/dl (8.5-10.1); CREATININE 1.7 mg/dl (0.60-1.40)
[2016-03-31 08:37] VITALS: BP 122/65; PULSE 79; TEMP 36.6; O2SAT 97
[2016-03-31] MEDS: AMIODARONE 200 MG TAB PO SCH ×2 (08:48→17:38)
[2016-03-31] MEDS: PANCREAZE (LIPASE 10,500U) CAP PO SCH ×3 (08:48→16:22)
[2016-03-31] MEDS: FUROSEMIDE INJ 60 MG in SYRINGE 0 ML IV SCH ×2 (08:49→17:39)
[2016-03-31] MEDS: FLUTICASONE PROPIONATE NA SPR 16 GM BTL NAE SCH (08:50)
[2016-03-31] MEDS: CLOPIDOGREL BISULFATE 75 MG TAB PO SCH (08:51)
[2016-03-31] MEDS: ATORVASTATIN 10 MG TAB PO SCH (08:51)
[2016-03-31] MEDS: LANSOPRAZOLE SOLUTAB 30 MG PO SCH (08:52)
[2016-03-31] MEDS: METOPROLOL SUCC 50MG EXT REL TAB PO SCH ×2 (08:52→21:59)
[2016-03-31] MEDS: ASCORBIC ACID 500 MG TAB PO SCH (08:52)
[2016-03-31] MEDS: SERTRALINE HCL 50 MG TAB PO SCH (08:53)
[2016-03-31] MEDS: DOCUSATE SODIUM 100 MG/10 ML UDC PO SCH ×2 (09:00→21:57)
[2016-03-31] MEDS: GLUTAMINE 15 GM PO SCH (09:00)
[2016-03-31] MEDS: INSULIN ASPART 100 UNITS/ML 3 ML PEN SC SCH ×4 (09:07→21:00)
[2016-03-31] MEDS: INSULIN GLARGINE SOLOSTAR 100 UNITS/ML 3 ML PEN SC SCH (09:08)
[2016-03-31 12:17] VITALS: BP 118/72; PULSE 74; TEMP 36.4; O2SAT 96
[2016-03-31 16:07] VITALS: BP 113/65; PULSE 76; TEMP 36.5; O2SAT 96
[2016-03-31] MEDS: WARFARIN SOD 2.5 MG TAB PO SCH (16:22)
[2016-03-31 19:42] VITALS: BP 100/65; PULSE 78; TEMP 36.5; O2SAT 97
[2016-03-31] MEDS: CEFEPIME IV 1,000 MG in DEXTROSE 5% 100ML 100 ML IV SCH (20:30)
[2016-03-31] MEDS: TAMSULOSIN HCL 0.4 MG CAP PO SCH (21:59)
--- NOTE | 2016-03-31 23:10 | Progress Note ---
Medicine Progress Note Date & Time of Visit: Mar 31, 2016 at 10:10 . Subjective Tired. No new concerns. Has some discomfort from dialysis catheter. No fever, chills. No CP. No cough or SOB. No nausea, vomiting, diarrhea. Still has Ruff cath. . Objective Last 8 Hrs Date Time Temp Pulse Resp B/P Pulse Ox O2 Delivery O2 Flow Rate FiO2 03/31/16 20:34 Room Air 03/31/16 19:42 36.5 78 18 100/65 97 Room Air 03/31/16 16:29 Room Air 03/31/16 16:07 36.5 76 18 113/65 96 Room Air Physical Exam: General- lying in bed; no distress Eyes- anicteric Neck- + JVD Lungs- essentially clear Heart- regular, no gallop appreciated Abdomen- normal bowel sounds, soft, nontender Extremities- 1+ pretibial edema Neuro- alert, oriented . Laboratory Results: Last 24 Hours Test 03/31/16 06:30 03/31/16 06:53 03/31/16 11:44 03/31/16 16:28 White Blood Count 8.01 K/uL Red Blood Count 2.51 M/uL Hemoglobin 7.5 g/dL Hematocrit 23.2 % Mean Corpuscular Volume 92.4 fL Mean Corpuscular Hemoglobin 29.9 pg Mean Corpuscular Hemoglobin Concent 32.3 g/dl RDW Standard Deviation 62.1 fL RDW Coefficient of Variation 19.2 % Platelet Count 283 K/uL Mean Platelet Volume 10.7 fL Prothrombin Time 21.2 SECONDS Prothromb Time International Ratio 1.9 Sodium Level 137 mmol/L Potassium Level 4.0 mmol/L Chloride Level 100 mmol/L Carbon Dioxide Level 29 mmol/L Anion Gap 8.0 mmol/L Blood Urea Nitrogen 19 mg/dl Creatinine 1.70 mg/dl Est Creatinine Clear Calc Drug Dose 35.2 ml/min Estimated GFR () 42.9 Estimated GFR (Non- 37.0 BUN/Creatinine Ratio 11.4 Random Glucose 123 mg/dl Calcium Level 7.6 mg/dl Bedside Glucose 131 mg/dl 174 mg/dl 128 mg/dl Test 03/31/16 20:00 Bedside Glucose 137 mg/dl Assessment & Plan CORONARY ARTERY DISEASE No anginal symptoms. Continue clopidogrel and metoprolol. CHF Chronic left ventricular systolic heart failure. Echo on 03/09/16 demonstrated LVEF of 30-35 percent. No BRANDON or ARB due to acute on chronic kidney disease. Continue metoprolol succinate and furosemide. CARDIAC ARRHYTHMIAS Bradycardia day of admission. Beta mansi was held. Cardiology consulted. External pacing was attempted, but not well tolerated. Started on dopamine for inotropic support. Biventricular pacemaker placed on 03/12/16. Chronic atrial fibrillation. Frequent PVCs and nonsustained ventricular tachycardia. Received amiodarone with improvement. Continue metoprolol, amiodarone, warfarin. HYPERTENSION Blood pressures well-controlled. Continue metoprolol. CEREBROVASCULAR DISEASE Continue clopidogrel. CKD III / ACUTE KIDNEY INJURY Baseline creatinine 1.9 in May 2015. Serum creatinine 2.6 on admission and darcy as high as 6.7. Nephrology consulted. Suspected acute tubular necrosis. Required hemodialysis. Appears to be recovering from ATN. Urine output improved. Serum creatinine today = 1.7 Further management as directed by nephrology. DM TYPE 2 Random blood sugar on admission 66. Hemoglobin A1c 8.2. Receiving Lantus and NovoLog per protocol. Fasting blood sugar today = 131 Follow. ANEMIA Hgb 14.6 --> --> 7.5. Anemia probably multifactorial; no gross GI bleeding. Check stools for OB. Follow. HISTORY PANCREATIC CA S/P [place]. Continue pancreatic enzymes. SEPSIS Patient was hypotensive the day of admission; blood cultures negative at that time. Developed fever on 03/19/16. 2/2 blood cultures grew Pseudomonas aeruginosa. Source uncertain- urine culture negative, central venous catheter tip negative. Received cefepime x 10 days. Afebrile. VTE PROPHYLAXIS SCDs ordered. Titrate warfarin. Ambulate. DISPOSITION Anticipated need for inpatient rehabilitation. Family Medicine follow-up with Dr. Ferrer. Components of this document were electronically copied and updated from the last documentation created by the undersigned in order to maintain a complete, accurate, and current record. Any portion of this document created by another author, if any, will be attributed to them. I certify that the record accurately reflects the patient's current status and services provided on the date of service. . Discharge planning: rehab hospital Consultants: Critical care Nephrology Cardiology Urology . Procedures: CT head Interval right parietal infarct. No acute intracranial findings. CT c-spine Findings of severe degenerative change combined with extensive posterior laminectomy defects. No acute process is appreciated. TTE * The study was technically limited. * The left ventricle is moderately dilated. * Left ventricular systolic function is moderate to severely reduced. * Ejection Fraction = 30-35%. * The right ventricular systolic function is normal. * There is mild mitral regurgitation. Renal ultrasound 1. there is mild hydronephrosis right kidney. 2. Several left renal cyst. 3. Complex cyst mid to lower aspect right kidney. . Current Inpatient Medications: Current Inpatient Medications Medications (Trade) Dose Ordered Sig/Quoc Route Start Time Stop Time Status Last Admin Dose Admin Nitroglycerin (Nitrostat Tab) 0.4 mg UD PRN SL 03/08/16 17:00 04/07/16 16:59 03/14/16 08:34 0.4 MG Glucose (Glucose 40% Gel) 15-30 GRAMS 15 GRAMS... UD PRN PO 03/08/16 17:15 04/07/16 17:14 Glucose (Glucose Chew Tab) 4-8 Tablets 4 Tabl... UD PRN PO 03/08/16 17:15 04/07/16 17:14 Dextrose (Dextrose 50% 50ML Syringe) 25-50ML OF 50% DW IV FOR... UD PRN IV 03/08/16 17:15 04/07/16 17:14 03/21/16 18:22 50 ML Glucagon (Glucagon Inj) 1 mg UD PRN SQ 03/08/16 17:15 04/07/16 17:14 Miscellaneous Information (Consult Glycemic Management Pharmacy) 1 ea UD PRN N/A 03/08/16 19:45 04/07/16 19:44 Atorvastatin Calcium (Lipitor Tab) 10 mg DAILY PO 03/09/16 09:00 04/08/16 08:59 03/31/16 08:51 10 MG Clopidogrel Bisulfate (plAVix TAB) 75 mg DAILY PO 03/09/16 09:00 04/08/16 08:59 Future hold 03/31/16 08:51 75 MG Fluticasone Propionate (Flonase Nasal [place]) 2 sprays DAILY RICHA 03/09/16 09:00 04/08/16 08:59 03/31/16 08:50 2 SPRAYS Levalbuterol (Xopenex Hfa Inhaler) 2 puffs Q4H PRN INH 03/08/16 17:30 04/07/16 17:29 03/29/16 12:53 2 PUFFS Sertraline HCl (Zoloft Tab) 25 mg DAILY PO 03/09/16 09:00 04/08/16 08:59 03/31/16 08:53 25 MG Miscellaneous Information (Order Awaiting Action) 1 ea QS N/A 03/08/16 19:45 04/07/16 19:44 Amylase/Lipase/ Protease (Pancreaze (Lipase 10,500U) Cap) 1-2 CAPS WITH SNACKS UD PRN PO 03/08/16 19:45 04/07/16 19:44 Acetaminophen (Tylenol Tab) 650 mg Q4H PRN PO 03/12/16 09:30 04/11/16 09:29 03/31/16 03:02 650 MG Warfarin Sodium (Coumadin Tab) 2.5 mg DAILY@16 PO 03/13/16 16:00 04/12/16 15:59 Future hold 03/31/16 16:22 2.5 MG Ondansetron HCl (Zofran Inj) 4 mg Q4H PRN IV 03/14/16 08:45 04/13/16 08:44 03/29/16 21:10 4 MG Amiodarone HCl (Cordarone Tab) 200 mg BIDM PO 03/14/16 16:30 04/13/16 16:29 03/31/16 17:38 200 MG Bisacodyl (Dulcolax Supp) 10 mg DAILY PRN [place] 03/16/16 09:45 04/15/16 09:44 Future Hold 03/17/16 10:10 10 MG Cefepime HCl (Consult) 1 ea UD PRN N/A 03/19/16 10:15 04/03/16 23:59 Calcitriol (Rocaltrol Cap) 0.25 mcg MoWeFr@0900 PO 03/21/16 09:00 04/20/16 08:59 03/30/16 07:23 0.25 MCG Docusate Sodium (coLACE SYRUP) 100 mg BID PO 03/22/16 21:00 04/21/16 20:59 Future hold 03/31/16 21:57 100 MG Lansoprazole (Prevacid Solutab) 30 mg QAM PO 03/23/16 09:00 04/22/16 08:59 03/31/16 08:52 30 MG Ascorbic Acid (Vitamin C Tab) 1,000 mg QAM PO 03/24/16 09:00 04/23/16 08:59 03/31/16 08:52 1,000 MG Glutamine (Glutasolve) 10 gm DAILY PO 03/25/16 09:00 04/24/16 08:59 03/30/16 07:22 10 GM Insulin Glargine (Lantus Solostar Pen) 5 unit QAM SC 03/26/16 09:00 04/25/16 08:59 Future hold 03/31/16 09:08 5 UNIT Insulin Aspart SLIDING SCALE G... ACHS SC 03/27/16 12:30 04/26/16 12:29 03/31/16 17:42 1 UNITS Cefepime HCl/ Dextrose (Maxipime IV/D5 100ml) 111.3 ml @ 200 mls/hr Q24H IV 03/29/16 20:00 04/03/16 23:59 03/31/16 20:30 200 MLS/HR Polyethylene (Miralax Powder Packet) 17 gm DAILY PRN PO 03/30/16 09:00 04/29/16 08:59 Metoprolol Succinate 50 mg 50 mg BID PO 03/30/16 21:00 04/29/16 20:59 03/31/16 21:59 50 MG Furosemide/Syringe (Lasix Inj/ Syringe) 6 ml @ 4 mls/min BID17 IV 03/30/16 17:00 04/29/16 16:59 03/31/16 17:39 4 MLS/MIN Amylase/Lipase/ Protease 2 cap AC PO 03/30/16 16:15 04/29/16 16:14 03/31/16 16:22 2 CAP Dexamethasone/ Nystatin/ Diphenhydramine HCl/Sucrose/ Microcrystalline Cellulose/Barcode (Decadron Conc Soln/Mycostatin Susp/Benadryl Syrup/Ora-Sweet Syrup/Ora-Plus Susp. Vehicle) ACHS PO 03/30/16 16:15 04/29/16 16:14 03/31/16 21:58 5 ML Tamsulosin HCl (Flomax Cap) 0.4 mg HS PO 03/31/16 21:00 04/30/16 20:59 03/31/16 21:59 0.4 MG
[2016-03-31 23:59] VITALS: BP 103/64; PULSE 88; TEMP 36.6; O2SAT 97
[2016-04-01 04:08] VITALS: BP 111/63; PULSE 85; TEMP 36.7; O2SAT 93
[2016-04-01 06:56] LABS: HEMATOCRIT 23.8 % (42-52); MEAN CELL VOLUME 93.3 fL (80-100); MEAN CORPUSCULAR HEMOGLOBIN 30.2 pg (25-34); MEAN CORPUSCULAR HGB CONC 32.4 g/dl (32-36); MEAN PLATELET VOLUME 10.2 fL (7.4-10.4); PLATELET COUNT 269 K/uL (130-400); RED BLOOD COUNT 2.55 M/uL (4.7-6.1); WHITE BLOOD COUNT 5.74 K/uL (4.8-10.8)
[2016-04-01 07:07] LABS: INR 2.1 (0.9-1.1); PROTHROMBIN TIME (PATIENT) 23.3 SECONDS (9.0-12.0)
[2016-04-01 07:26] LABS: BUN/CREATININE RATIO 11.6 (10-20); MAGNESIUM 1.8 mg/dl (1.8-2.4); POTASSIUM 4.1 mmol/L (3.5-5.1)
[2016-04-01 07:29] LABS: ALB/GLOB RATIO 0.8 (0.9-2)
[2016-04-01] MEDS: INSULIN ASPART 100 UNITS/ML 3 ML PEN SC SCH ×4 (07:42→21:18)
[2016-04-01] MEDS: PANCREAZE (LIPASE 10,500U) CAP PO SCH ×3 (07:42→17:08)
[2016-04-01] MEDS: DEXAMETHASONE CONC SOLN 3.75 MG, NYSTATIN SUSP 30 ML, DiphenhydrAMINE HCL SYRUP 300 MG,... PO SCH ×20 (07:42→21:16)
[2016-04-01 08:00] VITALS: BP 111/68; PULSE 85; TEMP 36.6; O2SAT 96
[2016-04-01] MEDS: SERTRALINE HCL 50 MG TAB PO SCH (08:42)
[2016-04-01] MEDS: CLOPIDOGREL BISULFATE 75 MG TAB PO SCH (08:43)
[2016-04-01] MEDS: METOPROLOL SUCC 50MG EXT REL TAB PO SCH ×2 (08:43→21:17)
[2016-04-01] MEDS: ASCORBIC ACID 500 MG TAB PO SCH (08:43)
[2016-04-01] MEDS: ATORVASTATIN 10 MG TAB PO SCH (08:43)
[2016-04-01] MEDS: LANSOPRAZOLE SOLUTAB 30 MG PO SCH (08:43)
[2016-04-01] MEDS: AMIODARONE 200 MG TAB PO SCH ×2 (08:44→17:09)
[2016-04-01] MEDS: DOCUSATE SODIUM 100 MG/10 ML UDC PO SCH ×2 (08:44→21:16)
[2016-04-01] MEDS: GLUTAMINE 15 GM PO SCH ×2 (08:44→08:55)
[2016-04-01] MEDS: FUROSEMIDE INJ 60 MG in SYRINGE 0 ML IV SCH (08:44)
[2016-04-01] MEDS: FLUTICASONE PROPIONATE NA SPR 16 GM BTL NAE SCH (08:44)
[2016-04-01] MEDS: INSULIN GLARGINE SOLOSTAR 100 UNITS/ML 3 ML PEN SC SCH (08:45)
--- NOTE | 2016-04-01 10:27 | Pharmacy Progress Note ---
Glycemic: Assessment & Plan Date of Service Apr 01, 2016. Assessment & Plan Item Value Date Time Bedside Glucose 124 mg/dl H 04/01/16 0704 Bedside Glucose 137 mg/dl H 03/31/161999 Bedside Glucose 128 mg/dl H 03/31/16 1628 Bedside Glucose 174 mg/dl H 03/31/16 1144 Random Glucose 123 mg/dl H 03/31/16 0630 03/28/16: The patient received 13 units of insulin. 03/29/16: The patient received 16 units of insulin. 03/30/16: The patient received 15 units of insulin. 03/31/16: The patient received 10 units of insulin. * Basal insulin: Lantus 5 units every HS, hold for BSG < 110 mg/dL * Correctional Insulin: Novolog Correction per scale ACHS Goal Range: Low 120 mg/dL - High 160 mg/dL Correction Factor: 30 mg/dL/unit * Prandial insulin: Per carb ratio of 1 unit per 12 grams CHO consumed No changed needed at this time. Pharmacy will continue to monitor patient daily and write orders per [facility] inpatient glycemic control protocol. Thanks. * Please note that the plan above was derived based on current level of insulin resistance and hospital stress. These recommendations are appropriate for inpatient admission only. Plan of care upon discharge will need to be reassessed to avoid potential outpatient hypo/hyperglycemia.
[2016-04-01 11:34] VITALS: BP 106/58; PULSE 89; TEMP 36.7; O2SAT 94
[2016-04-01] MEDS ORDERED: ALBUMIN HUMAN 25% 12.5 GM/50 ML VIAL IV ONE (13:15)
[2016-04-01] MEDS ORDERED: HEPARIN SOD (PORCINE) 1000 UNIT/ML 10 ML VIAL IV SCH ×2 (13:15)
--- NOTE | 2016-04-01 14:24 | PROGRESS NOTE ---
DATE: 04/01/2016 SUBJECTIVE: The patient is doing better. He seems stronger. Ruff catheter was removed yesterday. He is making urine. Although he has some difficulty as expected as he was on a Ruff catheter for more than 3 weeks. The last bladder scan was 100 mL. He is getting IV Lasix and he is making urine. Blood pressure is somewhat low, but acceptable. PHYSICAL EXAMINATION: VITAL SIGNS: Most recent vital signs shows a blood pressure 115/70, 98% on room air, pulse rate 79 per minute, temperature 36.7. HEENT: Mucous membrane is moist. NECK: Supple. No jugular venous distention. CHEST: Bilateral decreased breath sounds and occasional crackles. CARDIOVASCULAR: S1 and S2, regular. 2/6 systolic murmur heard. ABDOMEN: Soft, nontender. EXTREMITIES: Show 1+ edema. The edema is definitely less than a few days ago. LABS: Blood work, hemoglobin 7.7, platelet count 269, WBC count 5.74. Sodium 139, potassium 4.1, BUN 23, creatinine 2.0. Albumin 2.8, calcium 8.0. Magnesium 1.8. Creatinine yesterday was 1.7. ASSESSMENT AND PLAN: An 80-year-old male with acute kidney injury/acute tubular necrosis with multiple insults to the kidney, has been in the hospital for more than 2 weeks now. 1. Acute renal failure. This was from classic acute tubular necrosis needing dialysis. However, he has had significant renal recovery as evidenced by a much lower creatinine increasing urine output. I do not think he will be a long-term dialysis patient. I did write for dialysis order for tomorrow and will try to take about 2-3 kilo off. I would continue to use the Lasix intravenous. In fact, I increased the dose to Lasix 80 mg IV twice daily. He does not need albumin at this point, he has had many, many doses of albumin. I would continue to keep an eye on his postvoid residual urine. Hemoglobin is low, if it goes below 7, please consider blood transfusion. Dialysis order for tomorrow is already written. Will do 3 hours, take about 2-3 kilo off. MTDD
[2016-04-01 15:27] VITALS: BP 95/58; PULSE 82; TEMP 36.8; O2SAT 97
[2016-04-01] MEDS: WARFARIN SOD 2.5 MG TAB PO SCH (17:07)
[2016-04-01] MEDS: FUROSEMIDE INJ 80 MG in SYRINGE 0 ML IV SCH (17:10)
[2016-04-01 19:30] VITALS: BP 116/68; PULSE 74; TEMP 36.9; O2SAT 97
--- NOTE | 2016-04-01 20:49 | Progress Note ---
Medicine Progress Note Date & Time of Visit: Apr 01, 2016 ~ 15:00 . Subjective No new problems or concerns. No fever or chills. No chest pain, cough, dyspnea. No nausea or vomiting. No diarrhea. Ruff catheter removed yesterday. Having some hesitancy with voiding. No dysuria. . Objective Last 8 Hrs Date Time Temp Pulse Resp B/P Pulse Ox O2 Delivery O2 Flow Rate FiO2 04/01/16 19:30 36.9 74 20 116/68 97 Room Air 04/01/16 16:23 Room Air 04/01/16 15:27 36.8 82 18 95/58 97 Room Air Physical Exam: General- no distress Neck- + JVD Lungs- clear Heart- regular, no gallop appreciated Abdomen- normal bowel sounds, soft, nontender Extremities- 1+ pretibial edema Neuro- alert, oriented . Laboratory Results: Last 24 Hours Test 04/01/16 06:28 04/01/16 07:04 04/01/16 11:07 04/01/16 12:35 White Blood Count 5.74 K/uL Red Blood Count 2.55 M/uL Hemoglobin 7.7 g/dL Hematocrit 23.8 % Mean Corpuscular Volume 93.3 fL Mean Corpuscular Hemoglobin 30.2 pg Mean Corpuscular Hemoglobin Concent 32.4 g/dl RDW Standard Deviation 64.8 fL RDW Coefficient of Variation 19.2 % Platelet Count 269 K/uL Mean Platelet Volume 10.2 fL Prothrombin Time 23.3 SECONDS Prothromb Time International Ratio 2.1 Sodium Level 139 mmol/L Potassium Level 4.1 mmol/L Chloride Level 101 mmol/L Carbon Dioxide Level 30 mmol/L Anion Gap 8.0 mmol/L Blood Urea Nitrogen 23 mg/dl Creatinine 2.00 mg/dl Est Creatinine Clear Calc Drug Dose 29.9 ml/min Estimated GFR () 35.2 Estimated GFR (Non- 30.4 BUN/Creatinine Ratio 11.6 Random Glucose 118 mg/dl Calcium Level 8.0 mg/dl Magnesium Level 1.8 mg/dl Total Bilirubin 0.5 mg/dl Aspartate Amino Transf (AST/SGOT) 11 U/L Alanine Aminotransferase (ALT/SGPT) 8 U/L Alkaline Phosphatase 96 U/L Total Protein 6.2 gm/dl Albumin 2.8 gm/dl Globulin 3.4 gm/dl Albumin/Globulin Ratio 0.8 Bedside Glucose 124 mg/dl 263 mg/dl Stool Occult Blood NEGATIVE Test 04/01/16 16:20 04/01/16 19:55 Bedside Glucose 147 mg/dl 258 mg/dl Assessment & Plan CORONARY ARTERY DISEASE No anginal symptoms. Continue clopidogrel and metoprolol. CHF Chronic left ventricular systolic heart failure. Echo on 03/09/16 demonstrated LVEF of 30-35 percent. No BRANDON or ARB due to acute on chronic kidney disease. Continue metoprolol succinate and furosemide. CARDIAC ARRHYTHMIAS Bradycardia day of admission. Beta mansi was held. Cardiology consulted. External pacing was attempted, but not well tolerated. Started on dopamine for inotropic support. Biventricular pacemaker placed on 03/12/16. Chronic atrial fibrillation. Frequent PVCs and nonsustained ventricular tachycardia. Received amiodarone with improvement. Continue metoprolol, amiodarone, warfarin. HYPERTENSION Blood pressures well-controlled. Continue metoprolol. CEREBROVASCULAR DISEASE Continue clopidogrel. CKD III / ACUTE KIDNEY INJURY Baseline creatinine 1.9 in May 2015. Serum creatinine 2.6 on admission and darcy as high as 6.7. Nephrology consulted. Suspected acute tubular necrosis. Required hemodialysis. Appears to be recovering from ATN. Urine output improved. Serum creatinine today = 2.0 Further management per Nephrology. DM TYPE 2 Random blood sugar on admission 66. Hemoglobin A1c 8.2. Receiving Lantus and NovoLog per protocol. Fasting blood sugar today = 124 Follow. ANEMIA Hgb 14.6 --> --> 7.7. Anemia probably multifactorial; no gross GI bleeding. Stools for neg for OB. Follow. HISTORY PANCREATIC CA S/P [place]. Continue pancreatic enzymes. SEPSIS Patient was hypotensive the day of admission; blood cultures negative at that time. Developed fever on 03/19/16. 2/2 blood cultures grew Pseudomonas aeruginosa. Source uncertain- urine culture negative, central venous catheter tip negative. Received cefepime x 10 days. Afebrile. VTE PROPHYLAXIS SCDs ordered. Titrate warfarin. Ambulate. DISPOSITION Anticipated need for inpatient rehabilitation. Family Medicine follow-up with Dr. Ferrer. Components of this document were electronically copied and updated from the last documentation created by the undersigned in order to maintain a complete, accurate, and current record. Any portion of this document created by another author, if any, will be attributed to them. I certify that the record accurately reflects the patient's current status and services provided on the date of service. . Discharge planning: rehab hospital Consultants: Critical care Nephrology Cardiology Urology . Procedures: CT head Interval right parietal infarct. No acute intracranial findings. CT c-spine Findings of severe degenerative change combined with extensive posterior laminectomy defects. No acute process is appreciated. TTE * The study was technically limited. * The left ventricle is moderately dilated. * Left ventricular systolic function is moderate to severely reduced. * Ejection Fraction = 30-35%. * The right ventricular systolic function is normal. * There is mild mitral regurgitation. Renal ultrasound 1. there is mild hydronephrosis right kidney. 2. Several left renal cyst. 3. Complex cyst mid to lower aspect right kidney. . Current Inpatient Medications: Current Inpatient Medications Medications (Trade) Dose Ordered Sig/Quoc Route Start Time Stop Time Status Last Admin Dose Admin Nitroglycerin (Nitrostat Tab) 0.4 mg UD PRN SL 03/08/16 17:00 04/07/16 16:59 03/14/16 08:34 0.4 MG Glucose (Glucose 40% Gel) 15-30 GRAMS 15 GRAMS... UD PRN PO 03/08/16 17:15 04/07/16 17:14 Glucose (Glucose Chew Tab) 4-8 Tablets 4 Tabl... UD PRN PO 03/08/16 17:15 04/07/16 17:14 Dextrose (Dextrose 50% 50ML Syringe) 25-50ML OF 50% DW IV FOR... UD PRN IV 03/08/16 17:15 04/07/16 17:14 03/21/16 18:22 50 ML Glucagon (Glucagon Inj) 1 mg UD PRN SQ 03/08/16 17:15 04/07/16 17:14 Miscellaneous Information (Consult Glycemic Management Pharmacy) 1 ea UD PRN N/A 03/08/16 19:45 04/07/16 19:44 Atorvastatin Calcium (Lipitor Tab) 10 mg DAILY PO 03/09/16 09:00 04/08/16 08:59 04/01/16 08:43 10 MG Clopidogrel Bisulfate (plAVix TAB) 75 mg DAILY PO 03/09/16 09:00 04/08/16 08:59 Future hold 04/01/16 08:43 75 MG Fluticasone Propionate (Flonase Nasal [place]) 2 sprays DAILY RICHA 03/09/16 09:00 04/08/16 08:59 04/01/16 08:44 2 SPRAYS Levalbuterol (Xopenex Hfa Inhaler) 2 puffs Q4H PRN INH 03/08/16 17:30 04/07/16 17:29 03/29/16 12:53 2 PUFFS Sertraline HCl (Zoloft Tab) 25 mg DAILY PO 03/09/16 09:00 04/08/16 08:59 04/01/16 08:42 25 MG Miscellaneous Information (Order Awaiting Action) 1 ea QS N/A 03/08/16 19:45 04/07/16 19:44 Amylase/Lipase/ Protease (Pancreaze (Lipase 10,500U) Cap) 1-2 CAPS WITH SNACKS UD PRN PO 03/08/16 19:45 04/07/16 19:44 Acetaminophen (Tylenol Tab) 650 mg Q4H PRN PO 03/12/16 09:30 04/11/16 09:29 03/31/16 03:02 650 MG Warfarin Sodium (Coumadin Tab) 2.5 mg DAILY@16 PO 03/13/16 16:00 04/12/16 15:59 Future hold 04/01/16 17:07 2.5 MG Ondansetron HCl (Zofran Inj) 4 mg Q4H PRN IV 03/14/16 08:45 04/13/16 08:44 03/29/16 21:10 4 MG Amiodarone HCl (Cordarone Tab) 200 mg BIDM PO 03/14/16 16:30 04/13/16 16:29 04/01/16 17:09 200 MG Bisacodyl (Dulcolax Supp) 10 mg DAILY PRN [place] 03/16/16 09:45 04/15/16 09:44 Future Hold 03/17/16 10:10 10 MG Cefepime HCl (Consult) 1 ea UD PRN N/A 03/19/16 10:15 04/03/16 23:59 Calcitriol (Rocaltrol Cap) 0.25 mcg MoWeFr@0900 PO 03/21/16 09:00 04/20/16 08:59 03/30/16 07:23 0.25 MCG Docusate Sodium (coLACE SYRUP) 100 mg BID PO 03/22/16 21:00 04/21/16 20:59 Future hold 03/31/16 21:57 100 MG Lansoprazole (Prevacid Solutab) 30 mg QAM PO 03/23/16 09:00 04/22/16 08:59 04/01/16 08:43 30 MG Ascorbic Acid (Vitamin C Tab) 1,000 mg QAM PO 03/24/16 09:00 04/23/16 08:59 04/01/16 08:43 1,000 MG Glutamine (Glutasolve) 10 gm DAILY PO 03/25/16 09:00 04/24/16 08:59 03/30/16 07:22 10 GM Insulin Glargine (Lantus Solostar Pen) 5 unit QAM SC 03/26/16 09:00 04/25/16 08:59 Future hold 04/01/16 08:45 5 UNIT Insulin Aspart SLIDING SCALE G... ACHS SC 03/27/16 12:30 04/26/16 12:29 04/01/16 12:35 7 UNITS Cefepime HCl/ Dextrose (Maxipime IV/D5 100ml) 111.3 ml @ 200 mls/hr Q24H IV 03/29/16 20:00 04/03/16 23:59 03/31/16 20:30 200 MLS/HR Polyethylene (Miralax Powder Packet) 17 gm DAILY PRN PO 03/30/16 09:00 04/29/16 08:59 Metoprolol Succinate (Toprol Xl Tab) 50 mg BID PO 03/30/16 21:00 04/29/16 20:59 04/01/16 08:43 50 MG Amylase/Lipase/ Protease 2 cap AC PO 03/30/16 16:15 04/29/16 16:14 04/01/16 17:08 2 CAP Dexamethasone/ Nystatin/ Diphenhydramine HCl/Sucrose/ Microcrystalline Cellulose/Barcode (Decadron Conc Soln/Mycostatin Susp/Benadryl Syrup/Ora-Sweet Syrup/Ora-Plus Susp. Vehicle) ACHS PO 03/30/16 16:15 04/29/16 16:14 04/01/16 17:07 5 ML Tamsulosin HCl 0.4 mg 0.4 mg HS PO 03/31/16 21:00 04/30/16 20:59 03/31/16 21:59 0.4 MG Furosemide/Syringe (Lasix Inj/ Syringe) 8 ml @ 4 mls/min BID17 IV 04/01/16 17:00 05/01/16 16:59 04/01/16 17:10 4 MLS/MIN Heparin Sodium (Porcine) (Heparin Iv Bolus) 2,000 unit TODAY@0800 IV 04/02/16 08:00 04/02/16 18:00 Heparin Sodium (Porcine) (Heparin Iv Bolus) 500 unit TODAY@0900,1000,1100 IV 04/02/16 09:00 04/02/16 18:00 Albumin Human (Albumin 25%) 12.5 gm TODAY@0800 IV 04/02/16 08:00 04/02/16 18:00
[2016-04-01] MEDS: TAMSULOSIN HCL 0.4 MG CAP PO SCH (21:16)
[2016-04-01] MEDS: CEFEPIME IV 1,000 MG in DEXTROSE 5% 100ML 100 ML IV SCH (21:42)
[2016-04-01] MEDS: ONDANSETRON INJ 2 MG/ML 2 ML VIAL IV PRN (21:44)
[2016-04-01 23:37] VITALS: BP 108/64; PULSE 73; TEMP 36.8; O2SAT 99
[2016-04-02] VITALS (24 sets, daily range): BP systolic 81–116; BP diastolic 45–75; PULSE 59–91; TEMP 36.3–36.9; O2SAT 90–97
[2016-04-02] MEDS: DEXAMETHASONE CONC SOLN 3.75 MG, NYSTATIN SUSP 30 ML, DiphenhydrAMINE HCL SYRUP 300 MG,... PO SCH ×20 (07:00→21:16)
[2016-04-02 07:04] LABS: HEMATOCRIT 23.8 % (42-52)
[2016-04-02 07:14] LABS: INR 2.3 (0.9-1.1); PROTHROMBIN TIME (PATIENT) 25.6 SECONDS (9.0-12.0)
[2016-04-02 07:36] LABS: BUN/CREATININE RATIO 10.5 (10-20); CALCIUM 8.2 mg/dl (8.5-10.1); CREATININE 2.2 mg/dl (0.60-1.40); POTASSIUM 4.3 mmol/L (3.5-5.1)
[2016-04-02] MEDS: ASCORBIC ACID 500 MG TAB PO SCH (07:47)
[2016-04-02] MEDS: METOPROLOL SUCC 50MG EXT REL TAB PO SCH ×2 (07:48→21:18)
[2016-04-02] MEDS: CLOPIDOGREL BISULFATE 75 MG TAB PO SCH (07:48)
[2016-04-02] MEDS: ATORVASTATIN 10 MG TAB PO SCH (07:48)
[2016-04-02] MEDS: PANCREAZE (LIPASE 10,500U) CAP PO SCH ×3 (07:48→15:43)
[2016-04-02] MEDS: FUROSEMIDE INJ 80 MG in SYRINGE 0 ML IV SCH ×2 (07:49→15:47)
[2016-04-02] MEDS: SERTRALINE HCL 50 MG TAB PO SCH (07:49)
[2016-04-02] MEDS: AMIODARONE 200 MG TAB PO SCH ×2 (07:50→15:48)
[2016-04-02] MEDS: CALCITRIOL 0.25 MCG CAP PO SCH (07:50)
[2016-04-02] MEDS: DOCUSATE SODIUM 100 MG/10 ML UDC PO SCH ×3 (07:51→21:00)
[2016-04-02] MEDS: FLUTICASONE PROPIONATE NA SPR 16 GM BTL NAE SCH (07:51)
[2016-04-02] MEDS: LANSOPRAZOLE SOLUTAB 30 MG PO SCH (07:52)
[2016-04-02] MEDS: GLUTAMINE 15 GM PO SCH (07:52)
[2016-04-02] MEDS ORDERED: ALBUMIN HUMAN 25% 12.5 GM/50 ML VIAL IV SCH (08:00)
[2016-04-02] MEDS: INSULIN ASPART 100 UNITS/ML 3 ML PEN SC SCH ×4 (08:00→21:00)
[2016-04-02] MEDS ORDERED: HEPARIN SOD (PORCINE) 1000 UNIT/ML 10 ML VIAL IV SCH (08:00)
[2016-04-02] MEDS: INSULIN GLARGINE SOLOSTAR 100 UNITS/ML 3 ML PEN SC SCH (08:43)
[2016-04-02] MEDS: HEPARIN SOD (PORCINE) 1000 UNIT/ML 10 ML VIAL IV SCH ×3 (09:00→11:00)
--- NOTE | 2016-04-02 13:24 | PROGRESS NOTE ---
DATE: 04/02/2016 DIALYSIS NOTE SUBJECTIVE: The patient just finished his dialysis. He tolerated it very well. Two kilo of ultrafiltration was done without problem. CBC worked fine. He is making increasing amount of urine. In fact, yesterday in a 24-hour time period, he made 1200 mL of urine. His edema is also getting less and less and he is getting stronger. OBJECTIVE: VITAL SIGNS: Blood pressure 116/75, 97% on room air, pulse rate 90 per minute, temperature 36.8. HEENT: Mucous membranes are moist. NECK: Supple. No jugular venous distention. CHEST: Bilateral decreased breath sounds and occasional crackles. CARDIOVASCULAR: S1 and S2 regular. Soft systolic murmur heard. ABDOMEN: Soft, nontender. EXTREMITIES: Show 1+ edema; however, the edema is definitely much less than few days ago. LABORATORY DATA: Sodium 141, potassium 4.3, BUN 23, creatinine 2.2, calcium 8.2, hemoglobin 7.8, WBC count 5.7, platelet count 269. ASSESSMENT AND PLAN: An 80-year-old male with acute kidney injury/acute tubular necrosis with multiple insults to the kidney. He has been in the hospital for more than 2 weeks now. Acute renal failure. This was from classic acute tubular necrosis, requiring dialysis. However, he has had significant renal recovery as evidenced by a much lower creatinine and increasing urine output. At this point, I would stop his dialysis and continue to follow his labs and urine output. I will continue the Lasix for fluid mobilization. I will not remove the dialysis catheter quite yet, but we can consider that by the end of the week. He does not need albumin at this time and will be stopped. He does need a bladder scan again to see whether he is emptying his bladder adequately as he was on a Ruff catheter for more than 2 weeks. Hemoglobin is low, if it goes below 7, please consider blood transfusion. MTDD
[2016-04-02] MEDS: WARFARIN SOD 2.5 MG TAB PO SCH (15:44)
--- NOTE | 2016-04-02 18:24 | Progress Note ---
Medicine Progress Note Date & Time of Visit: Apr 02, 2016 at 14:40 . Subjective Tired. Dyspneic on exertion. No chest pain. No nausea, vomiting, diarrhea. Voiding without difficulty. . Objective Last 8 Hrs Date Time Temp Pulse Resp B/P Pulse Ox O2 Delivery O2 Flow Rate FiO2 04/02/16 15:02 Room Air 04/02/16 12:37 36.8 90 22 116/75 97 Room Air 04/02/16 11:56 Room Air 04/02/16 11:40 36.8 71 94/50 04/02/16 11:30 59 92/49 04/02/16 11:15 68 84/50 04/02/16 11:00 91 112/61 04/02/16 10:45 72 86/54 04/02/16 10:30 73 100/55 Physical Exam: General- no distress Neck- + JVD Lungs- clear Heart- RRR Abdomen- + bowel sounds, soft, nontender Extremities- 1+ pretibial edema; no calf tenderness Neuro- alert, oriented . Laboratory Results: Last 24 Hours Test 04/01/16 19:55 04/02/16 06:30 04/02/16 07:00 04/02/16 12:22 Bedside Glucose 258 mg/dl 122 mg/dl 148 mg/dl Hemoglobin 7.8 g/dL Hematocrit 23.8 % Prothrombin Time 25.6 SECONDS Prothromb Time International Ratio 2.3 Sodium Level 141 mmol/L Potassium Level 4.3 mmol/L Chloride Level 103 mmol/L Carbon Dioxide Level 31 mmol/L Anion Gap 7.0 mmol/L Blood Urea Nitrogen 23 mg/dl Creatinine 2.20 mg/dl Est Creatinine Clear Calc Drug Dose 27.2 ml/min Estimated GFR () 31.4 Estimated GFR (Non- 27.1 BUN/Creatinine Ratio 10.5 Random Glucose 115 mg/dl Calcium Level 8.2 mg/dl Magnesium Level 2.0 mg/dl Vitamin B12 Level 992 pg/mL Folate > 24.00 ng/mL Test 04/02/16 16:21 Bedside Glucose 168 mg/dl Assessment & Plan CORONARY ARTERY DISEASE No anginal symptoms. Continue clopidogrel and metoprolol. CHF Chronic left ventricular systolic heart failure. Echo on 03/09/16 demonstrated LVEF of 30-35%. No BRANDON or ARB due to acute on chronic kidney disease. Continue metoprolol succinate and furosemide. CARDIAC ARRHYTHMIAS Bradycardia day of admission. Beta mansi was held. Cardiology consulted. External pacing was attempted, but not well tolerated. Started on dopamine for inotropic support. Biventricular pacemaker placed on 03/12/16. Chronic atrial fibrillation. Frequent PVCs and nonsustained ventricular tachycardia. Received amiodarone with improvement. Continue metoprolol, amiodarone, warfarin. HYPERTENSION Blood pressures well-controlled. Continue metoprolol. CEREBROVASCULAR DISEASE Continue clopidogrel. CKD III / ACUTE KIDNEY INJURY Baseline creatinine 1.9 in May 2015. Serum creatinine 2.6 on admission and darcy as high as 6.7. Nephrology consulted. Suspected acute tubular necrosis. Required hemodialysis. Appears to be recovering from ATN. Urine output improved. Serum creatinine today = 2.2 Further management per Nephrology. DM TYPE 2 Random blood sugar on admission 66. Hemoglobin A1c 8.2. Receiving Lantus and NovoLog per protocol. Fasting blood sugar today = 122 Follow. ANEMIA Hgb 14.6 --> --> 7.8. Anemia probably multifactorial- acute illness, JOSUÉ, multiple phlebotomies. No gross GI bleeding. Stools for neg for OB. Fe 96, transferrin sat 58%, ferritin 191. B12 992. Folate > 24. Patient appears to be symptomatic. Transfuse to maintain Hgb > 8. Follow. HISTORY PANCREATIC CA S/P [place]. Continue pancreatic enzymes. SEPSIS Patient was hypotensive the day of admission; blood cultures negative at that time. Developed fever on 03/19/16. 2/2 blood cultures grew Pseudomonas aeruginosa. Source uncertain- urine culture negative, central venous catheter tip negative. Received cefepime x 10 days. Afebrile. VTE PROPHYLAXIS SCDs ordered. Titrate warfarin. Ambulate. DISPOSITION Anticipated need for inpatient rehabilitation. Family Medicine follow-up with Dr. Ferrer. Components of this document were electronically copied and updated from the last documentation created by the undersigned in order to maintain a complete, accurate, and current record. Any portion of this document created by another author, if any, will be attributed to them. I certify that the record accurately reflects the patient's current status and services provided on the date of service. . Discharge planning: rehab hospital Consultants: Critical care Nephrology Cardiology Urology . Procedures: CT head Interval right parietal infarct. No acute intracranial findings. CT c-spine Findings of severe degenerative change combined with extensive posterior laminectomy defects. No acute process is appreciated. TTE * The study was technically limited. * The left ventricle is moderately dilated. * Left ventricular systolic function is moderate to severely reduced. * Ejection Fraction = 30-35%. * The right ventricular systolic function is normal. * There is mild mitral regurgitation. Renal ultrasound 1. there is mild hydronephrosis right kidney. 2. Several left renal cyst. 3. Complex cyst mid to lower aspect right kidney. . Current Inpatient Medications: Current Inpatient Medications Medications (Trade) Dose Ordered Sig/Quoc Route Start Time Stop Time Status Last Admin Dose Admin Nitroglycerin (Nitrostat Tab) 0.4 mg UD PRN SL 03/08/16 17:00 04/07/16 16:59 03/14/16 08:34 0.4 MG Glucose (Glucose 40% Gel) 15-30 GRAMS 15 GRAMS... UD PRN PO 03/08/16 17:15 04/07/16 17:14 Glucose (Glucose Chew Tab) 4-8 Tablets 4 Tabl... UD PRN PO 03/08/16 17:15 04/07/16 17:14 Dextrose (Dextrose 50% 50ML Syringe) 25-50ML OF 50% DW IV FOR... UD PRN IV 03/08/16 17:15 04/07/16 17:14 03/21/16 18:22 50 ML Glucagon (Glucagon Inj) 1 mg UD PRN SQ 03/08/16 17:15 04/07/16 17:14 Miscellaneous Information (Consult Glycemic Management Pharmacy) 1 ea UD PRN N/A 03/08/16 19:45 04/07/16 19:44 Atorvastatin Calcium (Lipitor Tab) 10 mg DAILY PO 03/09/16 09:00 04/08/16 08:59 04/02/16 07:48 10 MG Clopidogrel Bisulfate (plAVix TAB) 75 mg DAILY PO 03/09/16 09:00 04/08/16 08:59 Future hold 04/02/16 07:48 75 MG Fluticasone Propionate (Flonase Nasal [place]) 2 sprays DAILY RICHA 03/09/16 09:00 04/08/16 08:59 04/02/16 07:51 2 SPRAYS Levalbuterol (Xopenex Hfa Inhaler) 2 puffs Q4H PRN INH 03/08/16 17:30 04/07/16 17:29 03/29/16 12:53 2 PUFFS Sertraline HCl (Zoloft Tab) 25 mg DAILY PO 03/09/16 09:00 04/08/16 08:59 04/02/16 07:49 25 MG Miscellaneous Information (Order Awaiting Action) 1 ea QS N/A 03/08/16 19:45 04/07/16 19:44 Amylase/Lipase/ Protease (Pancreaze (Lipase 10,500U) Cap) 1-2 CAPS WITH SNACKS UD PRN PO 03/08/16 19:45 04/07/16 19:44 Acetaminophen (Tylenol Tab) 650 mg Q4H PRN PO 03/12/16 09:30 04/11/16 09:29 03/31/16 03:02 650 MG Warfarin Sodium (Coumadin Tab) 2.5 mg DAILY@16 PO 03/13/16 16:00 04/12/16 15:59 Future hold 04/02/16 15:44 2.5 MG Ondansetron HCl (Zofran Inj) 4 mg Q4H PRN IV 03/14/16 08:45 04/13/16 08:44 04/01/16 21:44 4 MG Amiodarone HCl (Cordarone Tab) 200 mg BIDM PO 03/14/16 16:30 04/13/16 16:29 04/02/16 15:48 200 MG Bisacodyl (Dulcolax Supp) 10 mg DAILY PRN [place] 03/16/16 09:45 04/15/16 09:44 Future Hold 03/17/16 10:10 10 MG Cefepime HCl (Consult) 1 ea UD PRN N/A 03/19/16 10:15 04/03/16 23:59 Calcitriol (Rocaltrol Cap) 0.25 mcg MoWeFr@0900 PO 03/21/16 09:00 04/20/16 08:59 04/02/16 07:50 0.25 MCG Docusate Sodium (coLACE SYRUP) 100 mg BID PO 03/22/16 21:00 04/21/16 20:59 Future hold 04/01/16 21:16 100 MG Lansoprazole (Prevacid Solutab) 30 mg QAM PO 03/23/16 09:00 04/22/16 08:59 04/02/16 07:52 30 MG Ascorbic Acid (Vitamin C Tab) 1,000 mg QAM PO 03/24/16 09:00 04/23/16 08:59 04/02/16 07:47 1,000 MG Glutamine (Glutasolve) 10 gm DAILY PO 03/25/16 09:00 04/24/16 08:59 04/02/16 07:52 10 GM Insulin Glargine (Lantus Solostar Pen) 5 unit QAM SC 03/26/16 09:00 04/25/16 08:59 Future hold 04/02/16 08:43 5 UNIT Insulin Aspart SLIDING SCALE G... ACHS SC 03/27/16 12:30 04/26/16 12:29 04/02/16 08:00 3 UNITS Cefepime HCl/ Dextrose (Maxipime IV/D5 100ml) 111.3 ml @ 200 mls/hr Q24H IV 03/29/16 20:00 04/03/16 23:59 04/01/16 21:42 200 MLS/HR Polyethylene (Miralax Powder Packet) 17 gm DAILY PRN PO 03/30/16 09:00 04/29/16 08:59 Metoprolol Succinate (Toprol Xl Tab) 50 mg BID PO 03/30/16 21:00 04/29/16 20:59 04/02/16 07:48 50 MG Amylase/Lipase/ Protease 2 cap AC PO 03/30/16 16:15 04/29/16 16:14 04/02/16 15:43 2 CAP Dexamethasone/ Nystatin/ Diphenhydramine HCl/Sucrose/ Microcrystalline Cellulose/Barcode (Decadron Conc Soln/Mycostatin Susp/Benadryl Syrup/Ora-Sweet Syrup/Ora-Plus Susp. Vehicle) ACHS PO 03/30/16 16:15 04/29/16 16:14 04/02/16 15:45 5 ML Tamsulosin HCl 0.4 mg 0.4 mg HS PO 03/31/16 21:00 04/30/16 20:59 04/01/16 21:16 0.4 MG Furosemide/Syringe (Lasix Inj/ Syringe) 8 ml @ 4 mls/min BID17 IV 04/01/16 17:00 05/01/16 16:59 04/02/16 15:47 4 MLS/MIN
[2016-04-02] MEDS: CEFEPIME IV 1,000 MG in DEXTROSE 5% 100ML 100 ML IV SCH (21:16)
[2016-04-02] MEDS: TAMSULOSIN HCL 0.4 MG CAP PO SCH (21:17)
[2016-04-03] VITALS: BP 111/55; PULSE 70; TEMP 36.5; O2SAT 95
[2016-04-03 03:56] VITALS: BP 99/56; PULSE 69; TEMP 36.8; O2SAT 96
[2016-04-03 06:05] LABS: HEMATOCRIT 28.6 % (42-52); MEAN CELL VOLUME 92.6 fL (80-100); MEAN CORPUSCULAR HEMOGLOBIN 30.1 pg (25-34); MEAN CORPUSCULAR HGB CONC 32.5 g/dl (32-36); MEAN PLATELET VOLUME 10.6 fL (7.4-10.4); PLATELET COUNT 252 K/uL (130-400); RED BLOOD COUNT 3.09 M/uL (4.7-6.1); WHITE BLOOD COUNT 5.43 K/uL (4.8-10.8)
[2016-04-03 06:14] LABS: INR 2.4 (0.9-1.1); PROTHROMBIN TIME (PATIENT) 26.1 SECONDS (9.0-12.0)
[2016-04-03 06:44] LABS: CALCIUM 7.9 mg/dl (8.5-10.1); CREATININE 1.8 mg/dl (0.60-1.40); POTASSIUM 4.4 mmol/L (3.5-5.1)
[2016-04-03] MEDS: DEXAMETHASONE CONC SOLN 3.75 MG, NYSTATIN SUSP 30 ML, DiphenhydrAMINE HCL SYRUP 300 MG,... PO SCH ×10 (07:00→11:26)
--- NOTE | 2016-04-03 07:34 | Nephrology Progress Note ---
Nephrology Progress Note Date of Service: Apr 03, 2016. Subjective 80 yo male with regis/atn on dialysis. looking for signs of renal recovery. pt did have difficult barlow insertion at time of admission requiring urology to place barlow. now with issues with difficulty starting and having intermittent flows. harder to urinate lying down. easier standing. really wants to go to [facility] today. Objective Date Time Temp Pulse Resp B/P Pulse Ox O2 Delivery O2 Flow Rate FiO2 04/03/16 04:03 Room Air 04/03/16 03:56 36.8 69 23 99/56 96 Room Air 04/03/16 00:18 Room Air 04/03/16 00:00 36.5 70 20 111/55 95 Room Air 04/02/16 21:15 Room Air 04/02/16 21:09 36.6 70 18 107/58 92 04/02/16 20:13 36.3 72 18 102/65 97 04/02/16 19:12 36.6 72 18 95/51 96 04/02/16 18:43 36.6 71 18 97/57 92 04/02/16 18:36 36.8 71 18 102/55 94 04/02/16 18:19 36.8 76 18 102/66 96 04/02/16 15:02 Room Air 04/02/16 12:37 36.8 90 22 116/75 97 Room Air 04/02/16 11:56 Room Air 04/02/16 11:40 36.8 71 94/50 04/02/16 11:30 59 92/49 04/02/16 11:15 68 84/50 04/02/16 11:00 91 112/61 04/02/16 10:45 72 86/54 04/02/16 10:30 73 100/55 04/02/16 10:15 68 110/52 04/02/16 10:00 60 89/53 04/02/16 09:45 70 99/48 04/02/16 09:30 72 81/46 04/02/16 09:15 64 97/50 04/02/16 09:00 79 103/72 04/02/16 08:45 65 98/53 04/02/16 08:38 70 101/47 04/02/16 08:31 36.4 63 104/45 04/02/16 08:00 Room Air 04/02/16 07:49 36.9 76 20 100/55 90 Physical Exam: General-aaox3 Eyes-no sceral icterus ENT-mmm Neck-supple Lungs-cta Heart-paced Abdomen-bs+ s/nt/nd Extremities-no edema Neuro-nonfocal Current Inpatient Medications Medications (Trade) Dose Ordered Sig/Quoc Route Start Time Stop Time Status Last Admin Dose Admin Nitroglycerin (Nitrostat Tab) 0.4 mg UD PRN SL 03/08/16 17:00 04/07/16 16:59 03/14/16 08:34 0.4 MG Glucose (Glucose 40% Gel) 15-30 GRAMS 15 GRAMS... UD PRN PO 03/08/16 17:15 04/07/16 17:14 Glucose (Glucose Chew Tab) 4-8 Tablets 4 Tabl... UD PRN PO 03/08/16 17:15 04/07/16 17:14 Dextrose (Dextrose 50% 50ML Syringe) 25-50ML OF 50% DW IV FOR... UD PRN IV 03/08/16 17:15 04/07/16 17:14 03/21/16 18:22 50 ML Glucagon (Glucagon Inj) 1 mg UD PRN SQ 03/08/16 17:15 04/07/16 17:14 Miscellaneous Information (Consult Glycemic Management Pharmacy) 1 ea UD PRN N/A 03/08/16 19:45 04/07/16 19:44 Atorvastatin Calcium (Lipitor Tab) 10 mg DAILY PO 03/09/16 09:00 04/08/16 08:59 04/02/16 07:48 10 MG Clopidogrel Bisulfate (plAVix TAB) 75 mg DAILY PO 03/09/16 09:00 04/08/16 08:59 Future hold 04/02/16 07:48 75 MG Fluticasone Propionate (Flonase Nasal [place]) 2 sprays DAILY RICHA 03/09/16 09:00 04/08/16 08:59 04/02/16 07:51 2 SPRAYS Levalbuterol (Xopenex Hfa Inhaler) 2 puffs Q4H PRN INH 03/08/16 17:30 04/07/16 17:29 03/29/16 12:53 2 PUFFS Sertraline HCl (Zoloft Tab) 25 mg DAILY PO 03/09/16 09:00 04/08/16 08:59 04/02/16 07:49 25 MG Miscellaneous Information (Order Awaiting Action) 1 ea QS N/A 03/08/16 19:45 04/07/16 19:44 Amylase/Lipase/ Protease (Pancreaze (Lipase 10,500U) Cap) 1-2 CAPS WITH SNACKS UD PRN PO 03/08/16 19:45 04/07/16 19:44 Acetaminophen (Tylenol Tab) 650 mg Q4H PRN PO 03/12/16 09:30 04/11/16 09:29 03/31/16 03:02 650 MG Warfarin Sodium (Coumadin Tab) 2.5 mg DAILY@16 PO 03/13/16 16:00 04/12/16 15:59 Future hold 04/02/16 15:44 2.5 MG Ondansetron HCl (Zofran Inj) 4 mg Q4H PRN IV 03/14/16 08:45 04/13/16 08:44 04/01/16 21:44 4 MG Amiodarone HCl (Cordarone Tab) 200 mg BIDM PO 03/14/16 16:30 04/13/16 16:29 04/02/16 15:48 200 MG Bisacodyl (Dulcolax Supp) 10 mg DAILY PRN [place] 03/16/16 09:45 04/15/16 09:44 Future Hold 03/17/16 10:10 10 MG Cefepime HCl (Consult) 1 ea UD PRN N/A 03/19/16 10:15 04/03/16 23:59 Calcitriol (Rocaltrol Cap) 0.25 mcg MoWeFr@0900 PO 03/21/16 09:00 04/20/16 08:59 04/02/16 07:50 0.25 MCG Docusate Sodium (coLACE SYRUP) 100 mg BID PO 03/22/16 21:00 04/21/16 20:59 Future hold 04/01/16 21:16 100 MG Lansoprazole (Prevacid Solutab) 30 mg QAM PO 03/23/16 09:00 04/22/16 08:59 04/02/16 07:52 30 MG Ascorbic Acid (Vitamin C Tab) 1,000 mg QAM PO 03/24/16 09:00 04/23/16 08:59 04/02/16 07:47 1,000 MG Glutamine (Glutasolve) 10 gm DAILY PO 03/25/16 09:00 04/24/16 08:59 04/02/16 07:52 10 GM Insulin Glargine (Lantus Solostar Pen) 5 unit QAM SC 03/26/16 09:00 04/25/16 08:59 Future hold 04/02/16 08:43 5 UNIT Insulin Aspart SLIDING SCALE G... ACHS SC 03/27/16 12:30 04/26/16 12:29 04/02/16 08:00 3 UNITS Cefepime HCl/ Dextrose (Maxipime IV/D5 100ml) 111.3 ml @ 200 mls/hr Q24H IV 03/29/16 20:00 04/03/16 23:59 04/02/16 21:16 200 MLS/HR Polyethylene (Miralax Powder Packet) 17 gm DAILY PRN PO 03/30/16 09:00 04/29/16 08:59 Metoprolol Succinate (Toprol Xl Tab) 50 mg BID PO 03/30/16 21:00 04/29/16 20:59 04/02/16 21:18 50 MG Amylase/Lipase/ Protease 2 cap AC PO 03/30/16 16:15 04/29/16 16:14 04/02/16 15:43 2 CAP Dexamethasone/ Nystatin/ Diphenhydramine HCl/Sucrose/ Microcrystalline Cellulose/Barcode (Decadron Conc Soln/Mycostatin Susp/Benadryl Syrup/Ora-Sweet Syrup/Ora-Plus Susp. Vehicle) ACHS PO 03/30/16 16:15 04/29/16 16:14 04/02/16 21:16 5 ML Tamsulosin HCl 0.4 mg 0.4 mg HS PO 03/31/16 21:00 04/30/16 20:59 04/02/16 21:17 0.4 MG Furosemide/Syringe (Lasix Inj/ Syringe) 8 ml @ 4 mls/min BID17 IV 04/01/16 17:00 05/01/16 16:59 04/02/16 15:47 4 MLS/MIN Last 24 Hours Test 04/02/16 12:22 04/02/16 16:21 04/02/16 20:05 04/03/16 05:00 Bedside Glucose 148 mg/dl 168 mg/dl 113 mg/dl White Blood Count 5.43 K/uL Red Blood Count 3.09 M/uL Hemoglobin 9.3 g/dL Hematocrit 28.6 % Mean Corpuscular Volume 92.6 fL Mean Corpuscular Hemoglobin 30.1 pg Mean Corpuscular Hemoglobin Concent 32.5 g/dl RDW Standard Deviation 60.6 fL RDW Coefficient of Variation 18.5 % Platelet Count 252 K/uL Mean Platelet Volume 10.6 fL Prothrombin Time 26.1 SECONDS Prothromb Time International Ratio 2.4 Sodium Level 138 mmol/L Potassium Level 4.4 mmol/L Chloride Level 102 mmol/L Carbon Dioxide Level 28 mmol/L Anion Gap 8.0 mmol/L Blood Urea Nitrogen 14 mg/dl Creatinine 1.80 mg/dl Est Creatinine Clear Calc Drug Dose 33.2 ml/min Estimated GFR () 40.0 Estimated GFR (Non- 34.5 BUN/Creatinine Ratio 8.0 Random Glucose 123 mg/dl Calcium Level 7.9 mg/dl Test 04/03/16 06:40 Bedside Glucose 124 mg/dl Assessment & Plan regis/atn with multiple insults to the kidney. on dialysis but hopeful for eventual recovery. would still consider him regis. continue dialysis schedule. urology-pt did require urology for placement of barlow and had long insertion period. pt is urinating and appears to be emptying bladder but difficulty initiating and has intermittent flows.
[2016-04-03] MEDS: FUROSEMIDE INJ 80 MG in SYRINGE 0 ML IV SCH (07:40)
[2016-04-03] MEDS: ATORVASTATIN 10 MG TAB PO SCH (07:41)
[2016-04-03] MEDS: CLOPIDOGREL BISULFATE 75 MG TAB PO SCH (07:41)
[2016-04-03] MEDS: METOPROLOL SUCC 50MG EXT REL TAB PO SCH (07:41)
[2016-04-03] MEDS: LANSOPRAZOLE SOLUTAB 30 MG PO SCH (07:42)
[2016-04-03] MEDS: AMIODARONE 200 MG TAB PO SCH (07:42)
[2016-04-03] MEDS: ASCORBIC ACID 500 MG TAB PO SCH (07:42)
[2016-04-03] MEDS: PANCREAZE (LIPASE 10,500U) CAP PO SCH ×2 (07:43→11:26)
[2016-04-03] MEDS: FLUTICASONE PROPIONATE NA SPR 16 GM BTL NAE SCH (07:44)
--- NOTE | 2016-04-03 07:50 | DIAGNOSTIC IMAGING REPORT ---
CHEST ONE VIEW PORTABLE CLINICAL HISTORY: Congestive failure COMPARISON STUDY: 03/23/2016 FINDINGS: The heart is enlarged. There is a left subclavian pacemaker/defibrillator present. There is a right-sided PermCath. There is minor blunting of the lateral costophrenic angle suggesting trace effusions. There is mild pulmonary vascular congestion. There is no focal pulmonary consolidation[ IMPRESSION: Cardiomegaly and mild pulmonary vascular congestion. No evidence of focal pulmonary consolidation Electronically signed by: Mohsen Dobbs M.D. 04/03/2016 7:49 AM
[2016-04-03] MEDS: DOCUSATE SODIUM 100 MG/10 ML UDC PO SCH (07:51)
[2016-04-03 07:52] VITALS: BP 113/81; PULSE 72; TEMP 36.5; O2SAT 92
[2016-04-03] MEDS: SERTRALINE HCL 50 MG TAB PO SCH (08:31)
[2016-04-03] MEDS: GLUTAMINE 15 GM PO SCH (08:31)
[2016-04-03] MEDS: INSULIN ASPART 100 UNITS/ML 3 ML PEN SC SCH ×2 (08:33→11:56)
[2016-04-03] MEDS: INSULIN GLARGINE SOLOSTAR 100 UNITS/ML 3 ML PEN SC SCH (08:34)
[2016-04-03 10:18] VITALS: BP 113/65; PULSE 65; O2SAT 98
--- NOTE | 2016-04-03 11:14 | Pharmacy Progress Note ---
Glycemic Control: Progress Nt Date of Service Apr 03, 2016. Scope Glycemic Pharmacist consulted by Dr Lo on 03/08/16 for glycemic control and to write orders per [facility] inpatient glycemic control protocol. Objective Accuchecks BSG (last 24hrs): Test 04/02/16 12:22 04/02/16 16:21 04/02/16 20:05 04/03/16 05:00 Bedside Glucose 148 mg/dl (70-99) 168 mg/dl (70-99) 113 mg/dl (70-99) Random Glucose 123 mg/dl (70-99) Test 04/03/16 06:40 Bedside Glucose 124 mg/dl (70-99) Laboratory Data (last 24hrs) Test 04/03/16 05:00 Anion Gap 8.0 mmol/L BUN/Creatinine Ratio 8.0 Blood Urea Nitrogen 14 mg/dl Creatinine 1.80 mg/dl Potassium Level 4.4 mmol/L Sodium Level 138 mmol/L White Blood Count 5.43 K/uL HbA1c: 8.2% on 03/09/16 Recent Pertinent Medications Outpatient Anti-diabetic Regimen: * NovoLog Mix 70/30 28 units SQ AM + 12 units SQ PM The patient is currently receiving: * Basal insulin: Lantus 5 units every 24 hours given in the morning * Correctional Insulin: Novolog Correction per scale ACHS Goal Range: Low 120 mg/dL - High 160 mg/dL Correction Factor: 30 mg/dL/unit * Prandial insulin: Per carb ratio of 1 unit per 12 grams CHO consumed Assessment & Plan ASSESSMENT: * 80yo T2DM male maintained on premixed insulin as an outpatient with adequate control based on age and co-morbidities. * Outpatient regimen changed to SQ basal bolus insulin regimen with Lantus + NovoLog for inpatient use. Preferred to use individual components of basal + prandial insulin rather than pre-mixed insulin for easier titration for hypo/ hyperglycemia and changes in PO intake. * Patient has been receiving ~10-20 units of insulin per day with adequate control and minimal insulin order changes. Total daily dose fluctuates depending on PO intake (receives more CHO coverage) * AM fasting BSG in goal range, no changes needed to basal insulin * Post-prandial BSGs in goal range, no changes to CF/CR insulin needed * Minimal changes needed over the last few days and patient seems to be stabilizing. Will sign off of glycemic consult at this time. * ADA & AACE recommend a goal blood sugar range 140-180 mg/dl for the majority of critically ill & non-critically ill patients. However, more stringent targets may be selected in individual cases. PLAN FOR INPATIENT GLYCEMIC CONTROL: * Continue Basal insulin with LANTUS 5 units SQ daily in AM * Correctional Insulin with NOVOLOG per scale ACHS or Q6hrs while NPO * Goal Range: Low 120 mg/dL - High 160 mg/dL * Correction Factor: 30 mg/dL/unit * Nutritional / Prandial insulin per carb ratio of 1 unit per 12 grams CHO consumed * Pharmacy is signing off of glycemic consult. Please feel free to re-consult if needed. Thank you. * Please note that the plan above was derived based on current level of insulin resistance and hospital stress. These recommendations are appropriate for inpatient admission only. Plan of care upon discharge will need to be reassessed to avoid potential outpatient hypo/hyperglycemia. Thank you.
[2016-04-03 11:45] VITALS: BP 103/61; PULSE 73; TEMP 36.6; O2SAT 98
--- NOTE | 2016-04-03 14:31 | Progress Note ---
Medicine Progress Note Date & Time of Visit: Apr 03, 2016 at 13:50 . Subjective Received blood transfusion last evening without incident. Feels better today. Ambulating with less dyspnea and less fatigue. No chest pain. No nausea or vomiting. No diarrhea. . Objective Last 8 Hrs Date Time Temp Pulse Resp B/P Pulse Ox O2 Delivery O2 Flow Rate FiO2 04/03/16 12:00 Room Air 04/03/16 11:45 36.6 73 20 103/61 98 Room Air 04/03/16 10:18 65 98 04/03/16 08:00 Room Air 04/03/16 07:52 36.5 72 18 113/81 92 Room Air Physical Exam: General- sitting in chair at bedside; no distress Neck- slight JVD in upright position Lungs- clear Heart- RRR with occasional ectopy Abdomen- + bowel sounds, soft, nontender Extremities- 1-2+ pretibial edema; no calf tenderness Neuro- alert, oriented . Laboratory Results: Last 24 Hours Test 04/02/16 16:21 04/02/16 20:05 04/03/16 05:00 04/03/16 06:40 Bedside Glucose 168 mg/dl 113 mg/dl 124 mg/dl White Blood Count 5.43 K/uL Red Blood Count 3.09 M/uL Hemoglobin 9.3 g/dL Hematocrit 28.6 % Mean Corpuscular Volume 92.6 fL Mean Corpuscular Hemoglobin 30.1 pg Mean Corpuscular Hemoglobin Concent 32.5 g/dl RDW Standard Deviation 60.6 fL RDW Coefficient of Variation 18.5 % Platelet Count 252 K/uL Mean Platelet Volume 10.6 fL Prothrombin Time 26.1 SECONDS Prothromb Time International Ratio 2.4 Sodium Level 138 mmol/L Potassium Level 4.4 mmol/L Chloride Level 102 mmol/L Carbon Dioxide Level 28 mmol/L Anion Gap 8.0 mmol/L Blood Urea Nitrogen 14 mg/dl Creatinine 1.80 mg/dl Est Creatinine Clear Calc Drug Dose 33.2 ml/min Estimated GFR () 40.0 Estimated GFR (Non- 34.5 BUN/Creatinine Ratio 8.0 Random Glucose 123 mg/dl Calcium Level 7.9 mg/dl Test 04/03/16 11:23 Bedside Glucose 162 mg/dl Assessment & Plan CORONARY ARTERY DISEASE No anginal symptoms. Continue clopidogrel and metoprolol. CHF Chronic left ventricular systolic heart failure. Echo on 03/09/16 demonstrated LVEF of 30-35%. No BRANDON or ARB due to acute on chronic kidney disease. Continue metoprolol succinate and furosemide. CARDIAC ARRHYTHMIAS Bradycardia day of admission. Beta mansi was held. Cardiology consulted. External pacing was attempted, but not well tolerated. Started on dopamine for chronotropic support. Biventricular pacemaker placed on 03/12/16. Chronic atrial fibrillation. Frequent PVCs and nonsustained ventricular tachycardia. Received amiodarone with improvement. Continue metoprolol, amiodarone. Amiodarone dose at time of discharge 200 mg BID; further dosing per Cardiology. Continue warfarin. INR 2.4 day of discharge. HYPERTENSION Blood pressures well-controlled. BP 103/64 day of discharge. Continue metoprolol. CEREBROVASCULAR DISEASE Continue clopidogrel. CKD III / ACUTE KIDNEY INJURY Baseline creatinine 1.9 in May 2015. Serum creatinine 2.6 on admission and darcy as high as 6.7. Valsartan discontinued. Nephrology consulted. Suspected acute tubular necrosis. Required hemodialysis. Appears to be recovering from ATN. Tunneled dialysis catheter placed. Urine output improving. Serum creatinine day of discharge = 1.8. Further management per Nephrology. DM TYPE 2 Random blood sugar on admission 66. Hemoglobin A1c 8.2. Fasting blood sugar day 124 of discharge. Received Lantus and NovoLog per protocol. Usually takes NovoLog Mix 70/30 at home- consider transition from Lantus / NovoLog to NovoLog Mix 70/30 if blood sugars stable. ANEMIA Hgb 14.6 --> --> 7.8. Anemia probably multifactorial- acute illness, JOSUÉ, multiple phlebotomies. No gross GI bleeding. Stools for neg for OB. Fe 96, transferrin sat 58%, ferritin 191. B12 992. Folate > 24. Patient was symptomatic. Received 1 unit pRBC's on 04/02/16. Hgb 9.3 day of discharge. Follow. HISTORY PANCREATIC CA S/P [place]. Continue pancreatic enzymes. SEPSIS Patient was hypotensive the day of admission; blood cultures negative at that time. Developed fever on 03/19/16. 2/2 blood cultures 05/20/15 grew Pseudomonas aeruginosa. Source uncertain- urine culture negative, central venous catheter tip negative. Repeat blood cultures on 03/20/16 negative. Received cefepime x 14 days. Afebrile. VTE PROPHYLAXIS On warfarin with therapeutic INR. Ambulate. DISPOSITION Arrangements being made for inpatient rehabilitation at [facility]. Family Medicine follow-up with Dr. Ferrer. Nephrology follow-up with Dr. Sifuentes. Cardiology follow-up with Korey Hartley PA-C. Warfarin management per [facility]. Components of this document were electronically copied and updated from the last documentation created by the undersigned in order to maintain a complete, accurate, and current record. Any portion of this document created by another author, if any, will be attributed to them. I certify that the record accurately reflects the patient's current status and services provided on the date of service. . Discharge planning: rehab hospital Consultants: Critical care Nephrology Cardiology Urology . Procedures: CT head Interval right parietal infarct. No acute intracranial findings. CT c-spine Findings of severe degenerative change combined with extensive posterior laminectomy defects. No acute process is appreciated. TTE * The study was technically limited. * The left ventricle is moderately dilated. * Left ventricular systolic function is moderate to severely reduced. * Ejection Fraction = 30-35%. * The right ventricular systolic function is normal. * There is mild mitral regurgitation. Renal ultrasound 1. there is mild hydronephrosis right kidney. 2. Several left renal cyst. 3. Complex cyst mid to lower aspect right kidney. . Current Inpatient Medications: Current Inpatient Medications Medications (Trade) Dose Ordered Sig/Quoc Route Start Time Stop Time Status Last Admin Dose Admin Nitroglycerin (Nitrostat Tab) 0.4 mg UD PRN SL 03/08/16 17:00 04/07/16 16:59 03/14/16 08:34 0.4 MG Glucose (Glucose 40% Gel) 15-30 GRAMS 15 GRAMS... UD PRN PO 03/08/16 17:15 04/07/16 17:14 Glucose (Glucose Chew Tab) 4-8 Tablets 4 Tabl... UD PRN PO 03/08/16 17:15 04/07/16 17:14 Dextrose (Dextrose 50% 50ML Syringe) 25-50ML OF 50% DW IV FOR... UD PRN IV 03/08/16 17:15 04/07/16 17:14 03/21/16 18:22 50 ML Glucagon (Glucagon Inj) 1 mg UD PRN SQ 03/08/16 17:15 04/07/16 17:14 Atorvastatin Calcium (Lipitor Tab) 10 mg DAILY PO 03/09/16 09:00 04/08/16 08:59 04/03/16 07:41 10 MG Clopidogrel Bisulfate (plAVix TAB) 75 mg DAILY PO 03/09/16 09:00 04/08/16 08:59 Future hold 04/03/16 07:41 75 MG Fluticasone Propionate (Flonase Nasal [place]) 2 sprays DAILY RICHA 03/09/16 09:00 04/08/16 08:59 04/03/16 07:44 2 SPRAYS Levalbuterol (Xopenex Hfa Inhaler) 2 puffs Q4H PRN INH 03/08/16 17:30 04/07/16 17:29 03/29/16 12:53 2 PUFFS Sertraline HCl (Zoloft Tab) 25 mg DAILY PO 03/09/16 09:00 04/08/16 08:59 04/03/16 08:31 25 MG Miscellaneous Information (Order Awaiting Action) 1 ea QS N/A 03/08/16 19:45 04/07/16 19:44 Amylase/Lipase/ Protease (Pancreaze (Lipase 10,500U) Cap) 1-2 CAPS WITH SNACKS UD PRN PO 03/08/16 19:45 04/07/16 19:44 Acetaminophen (Tylenol Tab) 650 mg Q4H PRN PO 03/12/16 09:30 04/11/16 09:29 03/31/16 03:02 650 MG Warfarin Sodium (Coumadin Tab) 2.5 mg DAILY@16 PO 03/13/16 16:00 04/12/16 15:59 Future hold 04/02/16 15:44 2.5 MG Ondansetron HCl (Zofran Inj) 4 mg Q4H PRN IV 03/14/16 08:45 04/13/16 08:44 04/01/16 21:44 4 MG Amiodarone HCl (Cordarone Tab) 200 mg BIDM PO 03/14/16 16:30 04/13/16 16:29 04/03/16 07:42 200 MG Bisacodyl (Dulcolax Supp) 10 mg DAILY PRN MI 03/16/16 09:45 1/15/17 09:44 Future Hold 03/17/16 10:10 10 MG Cefepime HCl (Consult) 1 ea UD PRN N/A 03/19/16 10:15 04/03/16 23:59 Calcitriol (Rocaltrol Cap) 0.25 mcg MoWeFr@0900 PO 03/21/16 09:00 04/20/16 08:59 04/02/16 07:50 0.25 MCG Docusate Sodium (coLACE SYRUP) 100 mg BID PO 03/22/16 21:00 04/21/16 20:59 Future hold 04/01/16 21:16 100 MG Lansoprazole (Prevacid Solutab) 30 mg QAM PO 03/23/16 09:00 04/22/16 08:59 04/03/16 07:42 30 MG Ascorbic Acid (Vitamin C Tab) 1,000 mg QAM PO 03/24/16 09:00 04/23/16 08:59 04/03/16 07:42 1,000 MG Glutamine (Glutasolve) 10 gm DAILY PO 03/25/16 09:00 04/24/16 08:59 04/03/16 08:31 10 GM Insulin Glargine (Lantus Solostar Pen) 5 unit QAM SC 03/26/16 09:00 04/25/16 08:59 Future hold 04/03/16 08:34 5 UNIT Insulin Aspart SLIDING SCALE G... ACHS SC 03/27/16 12:30 04/26/16 12:29 04/03/16 11:56 4 UNITS Cefepime HCl/ Dextrose (Maxipime IV/D5 100ml) 111.3 ml @ 200 mls/hr Q24H IV 03/29/16 20:00 04/03/16 23:59 04/02/16 21:16 200 MLS/HR Polyethylene (Miralax Powder Packet) 17 gm DAILY PRN PO 03/30/16 09:00 04/29/16 08:59 Metoprolol Succinate (Toprol Xl Tab) 50 mg BID PO 03/30/16 21:00 04/29/16 20:59 04/03/16 07:41 50 MG Amylase/Lipase/ Protease 2 cap AC PO 03/30/16 16:15 04/29/16 16:14 04/03/16 11:26 2 CAP Dexamethasone/ Nystatin/ Diphenhydramine HCl/Sucrose/ Microcrystalline Cellulose/Barcode (Decadron Conc Soln/Mycostatin Susp/Benadryl Syrup/Ora-Sweet Syrup/Ora-Plus Susp. Vehicle) ACHS PO 03/30/16 16:15 04/29/16 16:14 04/03/16 11:26 5 ML Tamsulosin HCl 0.4 mg 0.4 mg HS PO 03/31/16 21:00 04/30/16 20:59 04/02/16 21:17 0.4 MG Furosemide/Syringe (Lasix Inj/ Syringe) 8 ml @ 4 mls/min BID17 IV 04/01/16 17:00 05/01/16 16:59 04/03/16 07:40 4 MLS/MIN
[2016-04-03] MEDS ORDERED: CRD200 PO (14:45)
[2016-04-03] MEDS ORDERED: INSDGIPEN SC (14:45)
[2016-04-03] MEDS ORDERED: MRLP17X PO (14:45)
[2016-04-03] MEDS ORDERED: TPRSR50 PO (14:45)
[2016-04-03] MEDS ORDERED: LSX80 PO (14:45)
[2016-04-03] MEDS ORDERED: NVLGIPEN SC (14:45)
[2016-04-03] MEDS ORDERED: CMD25 PO (14:45)
--- NOTE | 2016-04-03 14:57 | Discharge Instructions ---
Discharge Instructions Admission Reason for Admission: bradycardia Discharge Discharge Diagnosis / Problem: bradycardia, acute kidney injury, sepsis Discharge Goals Goal(s): Decrease discomfort, Improve function, Increase independence, Improve disease control Activity Recommendations Activity Level: Assistance Required Therapies: Physical Therapy, Occupational Therapy . Additional Information Patient informed of condition: Yes Advance Directives: Yes DNR: No Level of Care: Acute Rehab Communicable Disease: No Prognosis: Improving Instructions / Follow-Up Instructions / Follow-Up FOLLOW-UP APPOINTMENTS: PRIMARY CARE Dr. Ferrer CARDIOLOGY Korey Hartley PA-C NEPHROLOGY Dr. Sifuentes WARFARIN MANAGEMENT [facility] Thank you for receiving this patient in transfer. Please call if you have any questions. Bernardino Davis . Current Hospital Diet Patient's current hospital diet: AHA Diet (Heart Healthy), Diabetes Type 2 Diet Discharge Diet Recommended Diet: AHA Diet (Heart Healthy), Diabetes Type 2 Diet, Renal Diet Procedures Procedures Performed: cardiac monitoring IV medications echo biventricular pacer / ICD 03/12/[address] head CT c-spine video swallo insertion of perm catheter, right IJ by Dr. Hicks hemodialysis Pending Studies Studies pending at discharge: no Physician Orders On Transfer Special Precautions: fall precautions . Dressing Changes: dialysis catheter dressing changes per protocol . Vital Signs: routine . Weigh: daily . Additional Orders: Fingerstick blood sugars AC + HS. Hemodialysis as directed by Dr. Sifuentes. Warfarin management per your institution's protocol. INR goal 2-3. Please monitor H/H and basic metabolic profile twice a week until stable, then as clinically indicated. . POLST Discussion: Not Applicable Laboratory Results Hemoglobin A1c Test 03/09/16 05:46 Range/Units Estimated Average Glucose 189 mg/dl Hemoglobin A1c 8.2 H 4.5-5.6 % Medical Emergencies . Who to Call and When: Medical Emergencies: If at any time you feel your situation is an emergency, please call 911 immediately. . Non-Emergent Contact Non-Emergency issues call your: Primary Care Provider, Rating Examiner, Strap Stitcher . . "Provider Documentation" section prepared by Bernardino Davis. Core Measure Problem Core Measures: None
--- NOTE | 2016-04-03 15:02 | Discharge Summary ---
Discharge Summary Admission Date: Mar 08, 2016 at 16:59 Discharge Date: Apr 03, 2016 Discharge Disposition: Rehab ([facility]) Principal Diagnosis: bradycardia (slow atrial fib) acute kidney injury (ATN) Pseudomonas bacteremia / sepsis anemia - multifactorial . 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: Chronic (8) CVA (cerebral vascular accident) Status: Chronic (9) Depression Status: Chronic (10) DM2 (diabetes mellitus, type 2) Status: Chronic (11) GERD (gastroesophageal reflux disease) Status: Chronic (12) HLD (hyperlipidemia) Status: Chronic (13) HTN (hypertension) Status: Chronic (14) Pancreatic cancer Permanent Comment: [place] 02/04 s/p neoadjuvant chemoradiotherapy 2005 Jason Urena MD Status: Chronic (15) Pancreatic insufficiency Status: Chronic Surgical Problems: (1) H/O cervical spine surgery Status: Chronic (2) H/O hernia repair Status: Chronic (3) H/O percutaneous transluminal coronary angioplasty Status: Resolved (4) History of cardiac cath Permanent Comment: with stent placement Status: Chronic (5) History of hip replacement Status: Chronic (6) S/P cholecystectomy Status: Chronic (7) S/P hip replacement Status: Chronic (8) Stented coronary artery Status: Chronic . Procedures: CT head Interval right parietal infarct. No acute intracranial findings. CT c-spine Findings of severe degenerative change combined with extensive posterior laminectomy defects. No acute process is appreciated. TTE * The study was technically limited. * The left ventricle is moderately dilated. * Left ventricular systolic function is moderate to severely reduced. * Ejection Fraction = 30-35%. * The right ventricular systolic function is normal. * There is mild mitral regurgitation. Renal ultrasound 1. there is mild hydronephrosis right kidney. 2. Several left renal cyst. 3. Complex cyst mid to lower aspect right kidney. . Consultations: Critical care Nephrology Cardiology Urology . Medication Reconciliation New Medications: Furosemide (Furosemide) 80 Mg Tab 80 MG PO BID, #60 TAB New med. Will need Rx when discharged from [facility]. Amiodarone HCl (Amiodarone HCl) 200 Mg Tab 200 MG PO BIDM, #60 TAB New med. Will need Rx when discharged from [facility]. Insulin Aspart (Novolog Flexpen) 100 Units/Ml Inj 0 UNITS SC ACHS, #10 ML goal range = 120-160 correction factor = 30 mg/dl/unit carb ratio = 1 unit per 15 gms carb Insulin Glargine (Lantus Solostar) 100 Unit/Ml Inj 5 UNIT SC QAM, #10 ML Metoprolol Succinate (Metoprolol Succinate ER) 50 Mg Tabcr 50 MG PO BID, #60 TAB New med. Will need Rx when discharged from [facility]. Polyethylene (Miralax) 17 Gm Pow 17 GM PO DAILY PRN for Constipation for 30 Days Warfarin Sod (Coumadin) 2.5 Mg Tab 2.5 MG PO DAILY@16, #30 TAB Adjust to maintain INR 2-3. Continued Medications: Ascorbic Acid (Vitamin C) 250 Mg Tab 500 MG PO DAILY Atorvastatin (Lipitor) 10 Mg Tab 10 MG PO DAILY, TAB Calcitriol (Rocaltrol Cap) 0.25 Mcg Cap 0.25 MCG PO MWF, CAP Clopidogrel Bisulfate (Plavix) 75 Mg Tab 75 MG PO DAILY, TAB Esomeprazole Magnesium (Nexium) 40 Mg Capcr 40 MG PO DAILY, CAP Fluticasone Furoate-Vilanterol (Breo Ellipta) 1 Inh Inh 1 PUFF INH DAILY Fluticasone Propionate (Nasal) (Flonase Allergy Relief) 50 Mcg/Act Spr 2 SPRAY RICHA DAILY Levalbuterol (Xopenex Hfa) Inh 2 PUFFS INH Q4H PRN for SOB/COUGH/WHEEZING Multiple Vitamins W/ Minerals (Centrum Silver Ultra Mens) 1 Tab Tab 1 TABLET PO DAILY Nitroglycerin (Nitrostat) 0.4 Mg Sub 0.4 MG UT PRN, BTL Pancrelipase (Lipase-Protease- (Creon 65340) 1 Cap Cap 0 PO UD, CAP 3 capsules before each meal. 1 capsule before snacks. Sertraline (Zoloft) 25 Mg Tab 25 MG PO DAILY, TAB TAKE 1 TABLET DAILY Tamsulosin Hcl (Flomax) 0.4 Mg Cap 0.4 MG PO HS, CAP TAKE 1 TABLET DAILY Discontinued Medications: Carvedilol (Coreg) 6.25 Mg Tab 6.25 MG PO BID, TAB Cholecalciferol (Vitamin D) 1,000 Inter.unit Tab 5000 INTER.UNIT PO DAILY, TAB Insulin Aspart Protamine & Asp (Novolog Mix 70/30) 1 Inj Inj 28 UNITS SC QAM, BTL Insulin Aspart Protamine & Asp (Novolog Mix 70/30) 1 Inj Inj 12 UNITS SC QPM, BTL TAKE WITH SUPPER Magnesium Chloride (Mag64) 64 Mg Tabcr 1 TAB PO DAILY for 30 Days, 1 Refill Potassium Chloride (Micro-K Ext Rel) 10 Meq Capcr 10 MEQ PO DAILY, CAP TAKE 1 TABLET DAILY WITH FOOD Sacubitril-Valsartan (Entresto 24-26 mg) 1 Tab Tab 1 TAB PO BID Torsemide (Demadex) 20 Mg Tab 20 MG PO UD, TAB 1 TAB IF GAIN OF 3 LBS 2 TABS IF GAIN OF 5 LBS Warfarin Sodium (Coumadin) 3 Mg Tab 3 MG PO UD, TAB SATURDAY, SATURDAY, SATURDAY Warfarin Sodium (Coumadin) 3 Mg Tab 1.5 MG PO UD for 30 Days, #30 TAB 5 Refills SATURDAY, SATURDAY,SATURDAY, SATURDAY Admission Information HPI (per Admitting provider): 80 year old male with history of CAD, A fib on coumadin, Non ischemic cardiomyopathy EF 33%, DM, HTN, CKD3, CVA, presenting with fall, presyncope. Follows with [facility]. Patient admits to having poor appetite for the past few weeks now. Report intermittent dry heaving and epigastric pain. Today, patient woke up not feeling well- weak. He did not have breakfast, but administered usual Insulin dose. In the afternoon, patient got up from the chair and walked to go the bathroom. While walking, he felt dizziness and fell on the floor hitting his head on the cupboard. The fall was witnessed by his partner- no loss of consciousness, confusion, seizures noted. No chest pain,dyspnea, palpitations. Patient then brought to the ER by ambulance. At the ED, while being monitored, he was noted to be in A fib, HR 60s, but frequently drops to 30s. BP also noted to be as low as 69/45 as well, which responded to fluid challenge. On my exam, patient appears weak but alert, oriented, denies chest pain, dyspnea , dizziness, palpitations, nausea. Has some left shoulder pain after the fall. . Physical Exam (per Admitting): General Appearance: WD/WN, no apparent distress Head: + pertinent finding ((+) abrasion ont he left parietal region) Eyes: normal inspection, EOMI, sclerae normal ENT: normal ENT inspection, pharynx normal, + pertinent finding (poor hearing) Neck: supple, no adenopathy, thyroid normal, no JVD, trachea midline Respiratory/Chest: chest non-tender, lungs clear, normal breath sounds, no respiratory distress, no accessory muscle use Cardiovascular: no murmur, + irregularly irregular Abdomen/GI: normal bowel sounds, non tender, soft, no organomegaly Back: normal inspection, no CVA tenderness Extremities/Musculoskelatal: normal inspection, no calf tenderness, no pedal edema, normal range of motion Neurologic/Psych: 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 Continue clopidogrel and metoprolol. CHF Chronic left ventricular systolic heart failure. Echo on 03/09/16 demonstrated LVEF of 30-35%. No BRANDON or ARB due to acute on chronic kidney disease. Continue metoprolol succinate and furosemide. CARDIAC ARRHYTHMIAS Bradycardia day of admission. Beta manis was held. Cardiology consulted. External pacing was attempted, but not well tolerated. Started on dopamine for chronotropic support. Biventricular pacemaker placed on 03/12/16. Chronic atrial fibrillation. Frequent PVCs and nonsustained ventricular tachycardia. Received amiodarone with improvement. Continue metoprolol, amiodarone. Amiodarone dose at time of discharge 200 mg BID; further dosing per Cardiology. Continue warfarin. INR 2.4 day of discharge. HYPERTENSION Blood pressures well-controlled. BP 103/64 day of discharge. Continue metoprolol. CEREBROVASCULAR DISEASE Continue clopidogrel. CKD III / ACUTE KIDNEY INJURY Baseline creatinine 1.9 in May 2015. Serum creatinine 2.6 on admission and darcy as high as 6.7. Valsartan discontinued. Nephrology consulted. Suspected acute tubular necrosis. Required hemodialysis. Appears to be recovering from ATN. Tunneled dialysis catheter placed. Urine output improving. Serum creatinine day of discharge = 1.8. Further management per Nephrology. DM TYPE 2 Random blood sugar on admission 66. Hemoglobin A1c 8.2. Fasting blood sugar day 124 of discharge. Received Lantus and NovoLog per protocol. Usually takes NovoLog Mix 70/30 at home- consider transition from Lantus / NovoLog to NovoLog Mix 70/30 if blood sugars stable (at reduced dose due to JOSUÉ) . ANEMIA Hgb 14.6 --> --> 7.8. Anemia probably multifactorial- acute illness, JOSUÉ, multiple phlebotomies. No gross GI bleeding. Stools for neg for OB. Fe 96, transferrin sat 58%, ferritin 191. B12 992. Folate > 24. Patient was symptomatic. Received 1 unit pRBC's on 04/02/16. Hgb 9.3 day of discharge. Follow. HISTORY PANCREATIC CA S/P [place]. Continue pancreatic enzymes. SEPSIS Patient was hypotensive the day of admission; blood cultures negative at that time. Developed fever on 03/19/16. 05/03 blood cultures 05/20/15 grew Pseudomonas aeruginosa. Source uncertain- urine culture negative, central venous catheter tip negative. Repeat blood cultures on 03/20/16 negative. Received cefepime x 14 days. Afebrile. VTE PROPHYLAXIS On warfarin with therapeutic INR. Ambulate. DISPOSITION Arrangements being made for inpatient rehabilitation at [facility]. Family Medicine follow-up with Dr. Ferrer. Nephrology follow-up with Dr. Sifuentes. Cardiology follow-up with Korey Hartley PA-C. Warfarin management per [facility]. Components of this document were electronically copied and updated from the last documentation created by the undersigned in order to maintain a complete, accurate, and current record. Any portion of this document created by another author, if any, will be attributed to them. I certify that the record accurately reflects the patient's current status and services provided on the date of service. . Total time spent on discharge = 45 min. This includes examination of the patient, discharge planning, medication reconciliation, and communication with other providers. . Discharge Instructions Admission Reason for Admission: bradycardia Discharge Discharge Diagnosis / Problem: bradycardia, acute kidney injury, sepsis Discharge Goals Goal(s): Decrease discomfort, Improve function, Increase independence, Improve disease control Activity Recommendations Activity Level: Assistance Required Therapies: Physical Therapy, Occupational Therapy . Additional Information Patient informed of condition: Yes Advance Directives: Yes DNR: No Level of Care: Acute Rehab Communicable Disease: No Prognosis: Improving Instructions / Follow-Up Instructions / Follow-Up FOLLOW-UP APPOINTMENTS: PRIMARY CARE Dr. Ferrer CARDIOLOGY Korey Hartley PA-C NEPHROLOGY Dr. Sifuentes WARFARIN MANAGEMENT [facility] Thank you for receiving this patient in transfer. Please call if you have any questions. Bernardino Davis . Current Hospital Diet Patient's current hospital diet: AHA Diet (Heart Healthy), Diabetes Type 2 Diet Discharge Diet Recommended Diet: AHA Diet (Heart Healthy), Diabetes Type 2 Diet, Renal Diet Procedures Procedures Performed: cardiac monitoring IV medications echo biventricular pacer / ICD 03/12/[address] head CT c-spine video swallo insertion of perm catheter, right IJ by Dr. Hicks hemodialysis Pending Studies Studies pending at discharge: no Physician Orders On Transfer Special Precautions: fall precautions . Dressing Changes: dialysis catheter dressing changes per protocol . Vital Signs: routine . Weigh: daily . Additional Orders: Fingerstick blood sugars AC + HS. Hemodialysis as directed by Dr. Sifuentes. Warfarin management per your institution's protocol. INR goal 2-3. Please monitor H/H and basic metabolic profile twice a week until stable, then as clinically indicated. . POLST Discussion: Not Applicable Laboratory Results Hemoglobin A1c Test 03/09/16 05:46 Range/Units Estimated Average Glucose 189 mg/dl Hemoglobin A1c 8.2 H 4.5-5.6 % Medical Emergencies . Who to Call and When: Medical Emergencies: If at any time you feel your situation is an emergency, please call 911 immediately. . Non-Emergent Contact Non-Emergency issues call your: Primary Care Provider, School Adjustment Counselor, Customer Experience Associate . . "Provider Documentation" section prepared by Bernardino Davis. Core Measure Problem Core Measures: None . Additional Copies To Duong Lira M.D.; Korey Hartley PA-C; Janice Sifuentes DO; Jadiel Ferrer M.D.
[2016-04-03 15:12] VITALS: BP 103/61; PULSE 73; TEMP 36.6; O2SAT 98
[2016-04-03] MEDS: WARFARIN SOD 2.5 MG TAB PO SCH (15:26)
--- NOTE | 2016-04-14 12:29 | OPERATIVE REPORT ---
DATE OF OPERATION: 03/12/2016 PREOPERATIVE DIAGNOSES: 1. Ischemic cardiomyopathy. 2. Intraventricular conduction delay. 3. Congestive heart failure. 4. Bradycardia. 5. Permanent atrial fibrillation. POSTOPERATIVE DIAGNOSES: Same. PROCEDURES: 1. Left subclavian venography. 2. Right ventricular ICD lead implantation. 3. Coronary sinus angiography. 4. Biventricular ICD implantation. SURGEON: Ihsan Carrington M.D. ANESTHESIA: Local with sedation. HISTORY: This is an 80-year-old male with a history of ischemic cardiomyopathy with multiple coronary interventions. His ejection fraction is in the 33% range. He presented with progressive weakness, dizziness and collapsed. In the Emergency Room, he was hypotensive and was bradycardic on minimal AV miky blocking medications (carvedilol 6.25 mg twice a day which he requires for his left ventricular dysfunction). Dobutamine was added and a temporary pacemaker was placed; however, that was able to be discontinued. He is in permanent atrial fibrillation. He requires ventricular pacing for bradycardia to allow use of medications for his cardiomyopathy, he does have a borderline IVCD of the left bundle type, however, will require pacing and therefore should have a biventricular pacemaker with his cardiomyopathy. After obtaining informed consent for the procedure, he was brought to the laboratory on 03/12/2016, being NPO after midnight. He was identified in the laboratory, prepped and draped in standard sterile manner for a left-sided ICD implantation. Dye was injected via the left arm IV site in order to opacify the left subclavian vein. Left subclavian venipuncture was then performed and a guidewire placed through the left subclavian vein into the superior vena cava. The area was further infiltrated with 1% lidocaine local anesthetic and a 6 cm incision was made parallel to the left clavicle and 3 cm below it and carried down to the anterior pectoralis fascia. An ICD pocket was formed by blunt dissection anterior to the pectoralis fascia. A bacitracin-soaked sponge (50,000 units in 50 mL normal saline solution) was placed in the pocket. A 10.5-[place] Medtronic lead introducer was placed over the guidewire into the left subclavian vein, the dilator and guidewire were removed and a bipolar active fixation steroid-tipped dual coil defibrillator lead was advanced through the introducer into the superior vena cava. The guidewire was placed through the introducer and introducer stripped away from lead and guidewire. Using a curved stylette, the ventricular lead was advanced through the right ventricular outflow tract into the pulmonary artery and then using a straight stylette was positioned in the right ventricular apex. Ventricular pacing was evaluated in bipolar configuration at a pulse width of 0.5 milliseconds. Final ventricular pacing threshold was 0.3 volts with a current of 0.6 milliamp, 5-volt lead impedance was 522 ohms and R-waves were sensed at 4.8 millivolts. Diaphragmatic pacing was not present with a 10-volt bipolar output. An atrial lead was not used due to permanent atrial fibrillation. The short guidewire was replaced using the introducer with a long guidewire and a AdNear coronary sinus sheath was advanced to position in the right atrium. Using x-ray dye, the sheath was advanced into the coronary sinus. Coronary sinus angiography was performed in various projections. A reasonable posterolateral vessel was identified and a guidewire manipulated into this vessel. A quadripolar left ventricular lead was advanced to position. Position was adequate in the mid posterior left ventricle, there being no good far lateral vessels. Diaphragmatic pacing was evident in a number of configurations, however from LV tip to LV2, diaphragmatic pacing was not present with a 10-volt bipolar output. The pacing threshold in this configuration was 2.2 volts at a pulse width of 1.0 millisecond, current was 1.5 milliamp and 5-volt lead impedance was 1633 ohms. This was felt to be acceptable and the best location available. The left ventricular lead and the right ventricular lead were then sutured to the anterior pectoralis fascia using 2 sutures of 2-0 silk around each lead collar. The bacitracin-soaked sponge was removed from the pocket, the guidewire was removed from left subclavian vein and hemostasis was obtained. The ICD (Medtronic Amplia) was attached to the leads and found to be functioning normally. The atrial port on the ICD was plugged with a pin plug, this pin plug is model 6725, lot #[id number]. The ICD was placed in the pocket with the leads coiled beneath it. The incision was closed with a running double subcutaneous closure of 3-0 Vicryl, followed by a running subcuticular skin closure of 4-0 Vicryl. Bacitracin ointment was placed on the incision and a pressure dressing applied. The patient tolerated the procedure well, there were no complications and estimated blood loss was 50 mL. The ventricular lead is a Medtronic model 6947M, serial #[id number] and is a bipolar active fixation steroid-tipped dual coil MRI compatible ICD lead. The left ventricular lead is a Medtronic model 4598, serial #[id number] and is a quadripolar coronary sinus lead. This is also MRI compatible. The ICD is a Medtronic Amplia MRI quad CRTD SureScan, model NDWG8LN, serial #[id number]. The ICD was reprogrammed in the laboratory to final settings. MTDD
== END 2016-04-03 15:30 | DRG 224 ==
LOC: ENRESERVTM → ENRESERVDT → EDBD 13:02 → C.EDB 13:07 → C.MED 16:59 → C.2T 19:25 → C.MSICU 03-09 00:35 → CANBEDREQ 03-12 12:18 → C.2T 03-25 16:15
PROVIDERS: ADMIT Internal Medicine; ATTEND Hospitalist
PROC: 02HV33Z Insertion of Infusion Device into Superior Vena Cava, Percutaneous Approach (ICD-10-PCS; 2016-03-09)
PROC: B214YZZ Fluoroscopy of Right Heart using Other Contrast (ICD-10-PCS; principal; 2016-03-12 07:30)
PROC: B517YZZ Fluoroscopy of Left Subclavian Vein using Other Contrast (ICD-10-PCS; principal; 2016-03-12 07:30)
PROC: 0JH609Z Insertion of Cardiac Resynchronization Defibrillator Pulse Generator into Chest Subcutaneous Tissue and Fascia, Open Approach (ICD-10-PCS; principal; 2016-03-12 07:30)
PROC: 02HK3KZ Insertion of Defibrillator Lead into Right Ventricle, Percutaneous Approach (ICD-10-PCS; principal; 2016-03-12 07:30)
PROC: 02HL3KZ Insertion of Defibrillator Lead into Left Ventricle, Percutaneous Approach (ICD-10-PCS; principal; 2016-03-12 07:30)
PROC: 02HV33Z Insertion of Infusion Device into Superior Vena Cava, Percutaneous Approach (ICD-10-PCS; 2016-03-19)
PROC: 06HM33Z Insertion of Infusion Device into Right Femoral Vein, Percutaneous Approach (ICD-10-PCS; 2016-03-22)
PROC: 05HM33Z Insertion of Infusion Device into Right Internal Jugular Vein, Percutaneous Approach (ICD-10-PCS; 2016-03-26)
DX: I47.2 Ventricular tachycardia (principal); N17.0 Acute kidney failure with tubular necrosis; I42.9 Cardiomyopathy, unspecified; I48.1 Persistent atrial fibrillation; A41.52 Sepsis due to Pseudomonas; C25.9 Malignant neoplasm of pancreas, unspecified; I50.22 Chronic systolic (congestive) heart failure; N18.5 Chronic kidney disease, stage 5; G93.49 Other encephalopathy; I12.0 Hypertensive chronic kidney disease with stage 5 chronic kidney disease or end stage renal disease; N13.30 Unspecified hydronephrosis; I25.119 Atherosclerotic heart disease of native coronary artery with unspecified angina pectoris; N40.1 Benign prostatic hyperplasia with lower urinary tract symptoms; F32.9 Major depressive disorder, single episode, unspecified; J44.9 Chronic obstructive pulmonary disease, unspecified; K21.9 Gastro-esophageal reflux disease without esophagitis; Z96.649 Presence of unspecified artificial hip joint; Z95.5 Presence of coronary angioplasty implant and graft; R79.1 Abnormal coagulation profile; D64.9 Anemia, unspecified; E11.649 Type 2 diabetes mellitus with hypoglycemia without coma; R00.1 Bradycardia, unspecified; E11.21 Type 2 diabetes mellitus with diabetic nephropathy; E78.5 Hyperlipidemia, unspecified; Z92.3 Personal history of irradiation; E86.1 Hypovolemia; R33.9 Retention of urine, unspecified; S09.90XA Unspecified injury of head, initial encounter; I45.89 Other specified conduction disorders; E86.0 Dehydration; J20.9 Acute bronchitis, unspecified; I48.2 Chronic atrial fibrillation; E83.41 Hypermagnesemia; K31.84 Gastroparesis; J11.81 Influenza due to unidentified influenza virus with encephalopathy; Z87.891 Personal history of nicotine dependence; S00.91XA Abrasion of unspecified part of head, initial encounter; W18.30XA Fall on same level, unspecified, initial encounter; Y92.009 Unspecified place in unspecified non-institutional (private) residence as the place of occurrence of the external cause; Y93.01 Activity, walking, marching and hiking; Z79.01 Long term (current) use of anticoagulants; Z86.73 Personal history of transient ischemic attack (TIA), and cerebral infarction without residual deficits

== ENCOUNTER → 2016-05-29 | Outpatient (CLI) | payer OTHER ==
[~2016-05-29] MED LIST changes: -AMIO200T4 PO; +ASCO500T16 PO; +ATOR10TA88 PO; -BUME2TAB3 PO; -CALC-220 PO; -CARV25TA2 PO; +CHOL1000 PO; -CHOL100010 PO; +CMD25 PO; +CMD3 PO; +CRD200 PO; +DOCU-94 PO; +FINA5TAB PO; -FINA5TAB4 PO; +FLUT0.15 NAE; +FLUT1INH INH; +INSDGIPEN SC; +LANS30CA12 PO; +LSX80 PO; +METO50TA7 PO; +MRLP17X PO; -NORT10CA2 PO; -NRN100 PO; +NVLGIPEN SC; +NXM/40 PO; -PANT40TA PO; -POTA10CA28 PO; +SENN-83 PO; -SIMV20TA2 PO; -SLWMEC PO; -SYMIN160 INH; +TPRSR50 PO; -TRIA0.1C20 TOP; -WARF3TAB PO
== END | disposition home or self-care (01) ==
LOC: C.LABSPEC 10:49
PROVIDERS: ATTEND Urology
DX: N40.1 Benign prostatic hyperplasia with lower urinary tract symptoms (principal); R33.8 Other retention of urine

== ENCOUNTER 2016-06-22 06:33 | Day surgery (SDC) | payer OTHER ==
[~2016-06-22] VITALS: Ht 160 cm; Wt 76.0 kg
[~2016-06-22 06:33] MED LIST changes: -ASCO500T16 PO; -CHOL1000 PO; -CMD3 PO; -DOCU-94 PO; -FINA5TAB PO; -LANS30CA12 PO; -METO50TA7 PO; -NVLGI7030 SC; -SENN-83 PO
[2016-06-22] MEDS ORDERED: GLUCOSE 40% GEL 15 GM TUBE ONE ×2 (06:54→07:35)
[2016-06-22] MEDS ORDERED: NURSING VERBAL MED ORDER ONE (07:00)
[2016-06-22 07:08] LABS: INR 2.2 (0.9-1.1); PARTIAL THROMBOPLASTIN RATIO 1.4; PROTHROMBIN TIME (PATIENT) 24.1 SECONDS (9.0-12.0)
[2016-06-22] MEDS ORDERED: FINA5TAB PO (07:20)
[2016-06-22] MEDS ORDERED: NVLGI7030 SC ×2 (07:20)
[2016-06-22] MEDS ORDERED: DOCU-94 PO (07:20)
[2016-06-22] MEDS ORDERED: METO50TA7 PO (07:20)
[2016-06-22 07:21] VITALS: BP 136/64; PULSE 73; TEMP 36.5; O2SAT 99; Ht 160 cm; Wt 76.0 kg
--- NOTE | 2016-06-22 07:49 | History and Physical ---
History & Physical Date of Service Jun 22, 2016. History & Physical Chief Complaint Functioning kidneys History of Present Illness The patient is a 80 year old male admitted with syncopal episode and developed acute renal failure. Dialysis was started via a temporary groin catheter which was pulled and a permcath placed. He now has functioning kidneys and no longer on dialysis Allergies Coded Allergies: Lisinopril (Verified Allergy, Unknown, RASH, 06/24/15) Spironolactone (Verified Allergy, Unknown, unkn, 06/24/15) Zolpidem (Verified Adverse Reaction, Unknown, HALLUCINATIONS, 06/24/15) Home Medications Scheduled Ascorbic Acid (Vitamin C), 500 MG PO DAILY Atorvastatin (Lipitor), 10 MG PO DAILY Calcitriol (Rocaltrol Cap), 0.25 MCG PO MWF Carvedilol (Coreg), 6.25 MG PO BID Cholecalciferol (Vitamin D), 5,000 INTER.UNIT PO DAILY Clopidogrel Bisulfate (Plavix), 75 MG PO DAILY Esomeprazole Magnesium (Nexium), 40 MG PO DAILY Fluticasone Furoate-Vilanterol (Breo Ellipta), 1 PUFF INH DAILY Fluticasone Propionate (Nasal) (Flonase Allergy Relief), 2 SPRAY RICHA DAILY Insulin Aspart Protamine & Asp (Novolog Mix 70/30), 28 UNITS SC QAM Insulin Aspart Protamine & Asp (Novolog Mix 70/30), 12 UNITS SC QPM Magnesium Chloride (Mag64), 1 TAB PO DAILY Multiple Vitamins W/ Minerals (Centrum Silver Ultra Mens), 1 TABLET PO DAILY Nitroglycerin (Nitrostat), 0.4 MG UT PRN Pancrelipase (Lipase-Protease- (Creon 66677), 3 CAP PO with each meal Pancrelipase (Lipase-Protease- (Creon 61718), 1-2 CAP PO WITH SNACKS Potassium Chloride (Micro-K Ext Rel), 10 MEQ PO DAILY Sacubitril-Valsartan (Entresto 24-26 mg), 1 TAB PO BID Sertraline (Zoloft), 25 MG PO DAILY Tamsulosin Hcl (Flomax), 0.4 MG PO DAILY Torsemide (Demadex), 20 MG PO UD Warfarin Sodium (Coumadin), 3 MG PO UD Warfarin Sodium (Coumadin), 1.5 MG PO UD Scheduled PRN Levalbuterol (Xopenex Hfa), 2 PUFFS INH Q4H PRN for SOB/COUGH/WHEEZING Problem List Medical Problems: (1) Afib (2) BPH (benign prostatic hyperplasia) (3) CAD (coronary artery disease) (4) CHF (congestive heart failure) (5) CKD (chronic kidney disease), stage III (6) COPD (chronic obstructive pulmonary disease) (7) 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 (8) CVA (cerebral vascular accident) (9) Depression (10) DM2 (diabetes mellitus, type 2) (11) GERD (gastroesophageal reflux disease) (12) HLD (hyperlipidemia) (13) HTN (hypertension) (14) Pancreatic cancer (15) Pancreatic insufficiency (16) Pseudomonas septicemia Surgical Problems: (1) H/O cervical spine surgery (2) H/O hernia repair (3) H/O percutaneous transluminal coronary angioplasty (4) History of cardiac cath (5) History of hip replacement (6) S/P cholecystectomy (7) S/P hip replacement (8) Stented coronary artery Surgical / Medical History Hx Cardiac Surgery: Yes (stents, heart valve) Hx Abdominal Surgery: Yes (whipple) Hx Cancer Surgery: Yes (WHIPPLE, PARTIAL PANCREATECTOMY, PARTAIL GASTRECTOMY) Hx Thoracic Surgery: No Hx Orthopedic: Yes (B/L CELINE, NECK) Hx Urinary Tract Surgery: Yes (KIDNEY STONES) Past Medical/Surgical History: CVA/TIA, Diabetes, Heart Disease, Hypertension Family History Diabetes mellitus FH: cancer FH: gallbladder disease Heart disease Hypertension Kidney disease Lung disease Social History Smoking Status: Former Smoker Hx Tobacco Use In Past Year?: No Hx Alcohol Use - Type & Amnt: No Hx Substance Use -Type & Amnt: No Review of Systems Constitutional: No chills, No diaphoresis, No fatigue, No fever, No malaise, No problem reported, No sweats, No weakness, No weight gain, No weight loss Respiratory: No FAM, No PND, No cough, No cyanosis, No dyspnea, No hemoptysis, No orthopnea, No problem reported, No short of breath, No sputum production, No stridor, No wheezing Cardiovascular: No chest pain, No chest pressure, No chest tightness, No cyanosis, No diaphoresis, No edema, No intermittent claudication, No lightheadedness, No mumur, No orthopnea, No palpitations, No paroxysmal nocturnal dyspnea, No problem reported, No syncope Gastrointestinal: No abdominal pain, No anorexia, No appetite changes, No belching, No constipation, No diarrhea, No dysphagia, No flatulence, No food intolerance, No heartburn, No hematemesis, No hematochezia, No hemorrhoids, No indigestion, No nausea, No problem reported, No rectal bleeding, No stool changes, No vomiting Musculoskeletal: No back pain, No gout, No joint pain, No joint swelling, No muscle pain, No muscle stiffness, No muscle weakness, No neck pain, No problem reported Neurologic: No LOC, No dizziness, No headache, No lethargy, No memory loss, No numbness, No paresthesia, No pre-existing deficit, No problem reported, No seizures, No tics, No tingling, No tremors, No vertigo, No weakness Physical Exam Constitutional: General Apperance: heathly-appearing, well-nourished, well-developed Level of Distress: NAD, Ambulation: ambulating normally Psychiatric: Mental Status: active & alert, normal mood, normal affect Orientation: oriented except where noted, to time, to place, to person Memory: recent memory normal, remote memory normal Head: normocephalic, atraumatic Eyes: EOM: EOMI Lungs: Respiratory effort: good air movement Auscultation: no wheezing, normal breath sounds Cardiovascular: Heart Auscultation: RRR Peripheral Pulses: Radial Pulse: normal on the left Femoral Pulse: normal on the left, normal on the right Abdomen: Inspection & Palpation: soft Musculoskeletal: abnormal strength Extremities: Upper Right: no cyanosis, no varicosities, no palpable cord, no clubbing, no ulcers, no mottling, no edema Upper Left: no cyanosis, no varicosities, no palpable cord, no clubbing, no ulcers, no mottling, no edema Lower Right: no cyanosis, no edema, no varicosities, no palpable cord, no clubbing, no ulcers, no mottling Lower Left: no cyanosis, no edema, no varicosities, no palpable cord, no clubbing, no ulcers, no mottling Neurologic: Cranial Nerves: grossly intact Sensation: grossly intact Assessment and Plan Imp: Functioning kidneys, post permcath Plan: Patient for removal of permcath today. I have discussed the risks options and benefits of the procedure with the patient. The patient understands the risks options and benefits and agrees to the procedure.
[2016-06-22 07:50] VITALS: BP 136/64; PULSE 73; TEMP 36.5; O2SAT 99
[2016-06-22] MEDS ORDERED: LIDOCAINE HCL 1% 20 ML VIAL ONE (08:01)
[2016-06-22] MEDS ORDERED: LIDOCAINE HCL 1% 20 ML VIAL INFIL ONE (08:26)
[2016-06-22 08:35] VITALS: BP 124/66; PULSE 73; TEMP 37; O2SAT 96
--- NOTE | 2016-06-22 08:39 | DIAGNOSTIC IMAGING REPORT ---
DATE OF PROCEDURE: 06/22/2016 PREOPERATIVE DIAGNOSIS: Acute kidney injury status post tunneled dialysis catheter placement. POSTOPERATIVE DIAGNOSIS: Same. PROCEDURE: Removal of right tunneled dialysis catheter. SURGEON: Elvin Hicks M.D. RESIDENCE SUPERVISOR: Esvin Marte M.D. ANESTHESIA: Local anesthesia only. ESTIMATED BLOOD LOSS: 3 mL. COMPLICATIONS: None. INDICATIONS: This is an 81-year-old gentleman who several months ago had an episode of acute renal failure. Short term dialysis was indicated. At that time a tunneled dialysis catheter was placed. Fortunately, the patient has recovered and he no longer requires dialysis. Catheter removal was indicated. PROCEDURE: The patient was brought to the endovascular suite and placed in supine position. The right neck and chest were prepped and draped in normal sterile fashion. Time out was performed and all parties agreed to correct patient and procedure to be performed. Appropriate surgical antibiotics were administered. The sutures were removed. The entire tract was instilled with local anesthetic. Using blunt dissection and gentle downward traction, the catheter was freed up from the surrounding tissue. The catheter was gently pulled and slid out easily. Pressure was held on the neck insertion site as well as the chest wall site. Hemostasis was achieved. The patient was transferred to recovery room in satisfactory condition. I, Dr. Hicks was present and scrubed for the entire procedure. [facility]
--- NOTE | 2016-06-22 08:44 | [facility] Post Operative Brief Note ---
Immediate Operative Summary Operative Date Jun 22, 2016. Pre-Operative Diagnosis Functioning kidneys, post permcath Post-Operative Diagnosis Same Procedure(s) Performed Perm Cath Removal Surgeon Fabiola Hand Ironer Surgeon(s) Rosanna Estimated Blood Loss 3 Findings catheter and cuff removed Specimens a; perm cath Anesthesia Local Complication(s) None Disposition
--- NOTE | 2016-06-22 08:46 | Discharge Instructions ---
Discharge Instructions Date of Service Jun 22, 2016. Visit Reason for Visit: Stage 3 Chronic Kidney Disease W/Improved Function Discharge Discharge Diagnosis / Problem: Functioning kidneys Discharge Goals Goal(s): Therapeutic intervention Activity Recommendations Activity Limitations: per Instructions/Follow-up section Anesthesia . Post Anesthesia Instructions: If you have had General Anesthesia or IV Sedation: * Do not drive today. * Resume driving when surgeon permits. * Do not make important decisions or sign legal documents today. * Call surgeon for: 1. Temperature elevations greater than 101 degrees F. 2. Uncontrollable pain. 3. Excessive bleeding. 4. Persistent nausea and vomiting. 5. Medication intolerance (nausea, vomiting or rash). * For nausea and vomiting use only clear liquids such as: tea, soda, bouillon until nausea subsides, then gradually increase diet as tolerated. * If you have any concerns or questions, call your surgeon's office. If physician is unavailable and it is an emergency, call 911 or go to the nearest emergency room. . Instructions / Follow-Up Instructions / Follow-Up Call [phone] with any questions or concerns. SPECIAL CARE INSTRUCTIONS: Medications: * Continue to take your medications as directed. If you have been given a prescription for Plavix, please fill it immediately and take as directed. Incision Care: * Your puncture site may have some bruising and minor swelling for about one week. * You will have a small dressing covering your puncture site. You may remove the dressing after 24 hours and shower. You may let the warm soapy water run over it, but be sure to dry the puncture site well and keep it dry. * DO NOT IMMERSE THE INCISION IN A TUB/POOL/etc. UNTIL HEALED. * Puncture sites should be kept covered with a band-aid until it begins to heal. Restrictions: * Depending on whether you leg or arm was punctured to access the arteries, you will be required to lay flat, hold your arm still, or both, for about 4 hours after the procedure to prevent bleeding. * Limit your activity for the first 48 hours. You may walk and go up and down steps. Avoid excessive bending or movement at the puncture site. Possible Complications: * Excessive Swelling - after blood flow is improved you may notice increased swelling in the lower legs. This is a normal response. This usually depends on the amount of blockages in the leg, how long they have been there prior to your procedure and how much blood flow was restored. Elevating your legs will help to improve this. Please notify our office ([phone] ) if the swelling does not go away after lying in bed overnight. * Infection/Drainage/Bleeding - Drainage or bleeding from the puncture site should be minimal. If you have excessive bleeding or drainage, call our office ([phone]) right away. * Pain - You may experience some mild pain or soreness at your puncture site. If your pain does not improve, please contact our office ([phone]). Call your doctor and seek emergent treatment if you develop: * Temperature above 101 degrees * Any fever or chills * Any redness or purulent drainage from the puncture site * Any new dusky/blue colored toes or feet with coolness or sharp or aching pain. SKIN IRRITATION: * You may experience some redness and/or swelling in the area where radiation was administered. If any skin irritation occurs, please contact your family physician. FOLLOW UP VISIT: Keep any scheduled doctor appointments. Diet Recommendations Recommended Home Diet: resume previous diet Procedures Procedures Performed: Perm Cath Removal Pending Studies Studies pending at discharge: no Medical Emergencies . Who to Call and When: Medical Emergencies: If at any time you feel your situation is an emergency, please call 911 immediately. . Non-Emergent Contact Non-Emergency issues call your: Surgeon . . "Provider Documentation" section prepared by Elvin Hicks.
[2016-06-22 09:05] VITALS: BP 124/67; PULSE 70; TEMP 36.6; O2SAT 98
[2016-06-22 09:35] VITALS: BP 140/71; PULSE 84; TEMP 36.5; O2SAT 95
== END 2016-06-22 09:35 | disposition home or self-care (01) ==
LOC: C.ACU 06:33
PROVIDERS: ATTEND Surgery Vascular Surgery
DX: Z45.2 Encounter for adjustment and management of vascular access device (principal); N17.9 Acute kidney failure, unspecified; Z88.8 Allergy status to other drugs, medicaments and biological substances; Z79.01 Long term (current) use of anticoagulants; Z79.899 Other long term (current) drug therapy; Z79.02 Long term (current) use of antithrombotics/antiplatelets; Z79.4 Long term (current) use of insulin; N18.3 Chronic kidney disease, stage 3 (moderate); E11.22 Type 2 diabetes mellitus with diabetic chronic kidney disease; K21.9 Gastro-esophageal reflux disease without esophagitis; E78.5 Hyperlipidemia, unspecified; J44.9 Chronic obstructive pulmonary disease, unspecified; I50.9 Heart failure, unspecified; I25.10 Atherosclerotic heart disease of native coronary artery without angina pectoris; N40.0 Benign prostatic hyperplasia without lower urinary tract symptoms; I12.9 Hypertensive chronic kidney disease with stage 1 through stage 4 chronic kidney disease, or unspecified chronic kidney disease

== ENCOUNTER 2016-09-24 12:54 | Inpatient (IN) | payer OTHER ==
[~2016-09-24] VITALS: Ht 165.1 cm; Wt 83.7 kg
[~2016-09-24 12:54] MED LIST changes: +ATOR10TA82 PO; -ATOR10TA88 PO; +DOCU-94 PO; +FINA5TAB PO; -INSDGIPEN SC; +METO50TA7 PO; +NVLGI7030 SC; -NVLGIPEN SC; -TPRSR50 PO
[2016-09-24 15:15] VITALS: BP 113/56; PULSE 78; TEMP 36.6; O2SAT 97
[2016-09-24] MEDS ORDERED: ACETAMINOPHEN 325 MG TAB PO PRN (15:15)
[2016-09-24] MEDS ORDERED: ONDANSETRON INJ 2 MG/ML 2 ML VIAL IV PRN (15:15)
[2016-09-24 15:41] VITALS: BP 113/56; PULSE 78; TEMP 36.6; O2SAT 97; Ht 165.1 cm; Wt 83.7 kg
--- NOTE | 2016-09-24 15:55 | DIAGNOSTIC IMAGING REPORT ---
CHEST ONE VIEW PORTABLE CLINICAL HISTORY: volume overload dyspnea COMPARISON STUDY: 04/03/2016 FINDINGS: Moderate stable cardia megaly. Lungs are clear. Diaphragms smooth. IMPRESSION: Moderate stable cardiomegaly. Electronically signed by: Korey Aguero M.D. 09/24/2016 3:54 PM Dictated Date/Time: 09/24/2016 3:53 PM
[2016-09-24 16:15] LABS: INR 2.6 (0.9-1.1); PROTHROMBIN TIME (PATIENT) 28.6 SECONDS (9.0-12.0)
[2016-09-24] MEDS ORDERED: DEXTROSE 50% 50 ML SYR IV PRN (16:15)
[2016-09-24] MEDS ORDERED: NITROGLYCERIN 0.4 MG SL PER TAB CHARGE UT PRN (16:15)
[2016-09-24] MEDS ORDERED: GLUCAGON FOR INJ 1 MG VIAL SQ PRN (16:15)
[2016-09-24] MEDS ORDERED: GLUCOSE 40% GEL 15 GM TUBE PO PRN (16:15)
[2016-09-24] MEDS ORDERED: GLUCOSE 10 TABS/TUBE PO PRN (16:15)
[2016-09-24] MEDS ORDERED: LEValbuterol HFA 15GM INHALER INH PRN (16:15)
[2016-09-24] MEDS ORDERED: CHOL1000 PO (16:18)
[2016-09-24] MEDS ORDERED: LSX80 PO (16:18)
[2016-09-24] MEDS ORDERED: LANS30CA12 PO (16:18)
[2016-09-24] MEDS ORDERED: SENN-83 PO (16:18)
[2016-09-24] MEDS ORDERED: ASCO500T16 PO (16:18)
[2016-09-24] MEDS ORDERED: CRD200 PO (16:18)
[2016-09-24] MEDS ORDERED: CMD3 PO (16:20)
--- NOTE | 2016-09-24 16:24 | DIAGNOSTIC IMAGING REPORT ---
HEAD CT NONCONTRAST CT DOSE: 537.48 mGy.cm HISTORY: Working headache. TECHNIQUE: Multiaxial CT images of the head were performed without the use of intravenous contrast. Automated exposure control was utilized for this study. Comparison: Head CT 03/08/2016. Findings: The paranasal sinuses and mastoid air cells are clear. The calvarium and skull base are intact. There is no mass, hematoma, midline shift, acute infarct. White matter hypodensity is nonspecific but suggestive of microvascular ischemic change. The ventricles and sulci demonstrate mild age-related involutional changes. Old right frontoparietal infarct remains unchanged. Impression: No significant change compared to the prior study. No acute intracranial abnormality. Electronically signed by: Osmin Mandel M.D. 09/24/2016 4:22 PM Dictated Date/Time: 09/24/2016 4:04 PM
[2016-09-24 16:26] LABS: BUN/CREATININE RATIO 13.6 (10-20); CALCIUM 8.8 mg/dl (8.5-10.1); CREATININE 2.3 mg/dl (0.60-1.40); MAGNESIUM 2.5 mg/dl (1.8-2.4); POTASSIUM 3.9 mmol/L (3.5-5.1)
[2016-09-24] MEDS ORDERED: FUROSEMIDE INJ 80 MG in SYRINGE 0 ML IV ONE (16:30)
[2016-09-24] MEDS ORDERED: PANCREAZE (LIPASE 10,500U) CAP PO PRN (17:00)
[2016-09-24] MEDS ORDERED: WARFARIN SOD 3 MG TAB PO SCH (17:00)
[2016-09-24 17:04] LABS: BASO % 0.7 %; BASO ABS # 0.05 K/uL (0-0.2); EOS % 2.4 %; HEMATOCRIT 32.9 % (42-52); IG% 0.3 %; LYMPH % 17.2 %; LYMPH ABS # 1.31 K/uL (1.2-3.4); MEAN CELL VOLUME 98.5 fL (80-100); MEAN CORPUSCULAR HEMOGLOBIN 31.1 pg (25-34); MEAN PLATELET VOLUME 9.8 fL (7.4-10.4); MONO % 7.7 %; NEUT % 71.7 %; PLATELET COUNT 230 K/uL (130-400); RED BLOOD COUNT 3.34 M/uL (4.7-6.1); WHITE BLOOD COUNT 7.62 K/uL (4.8-10.8)
[2016-09-24 17:06] LABS: COMPLETE YES; MEAN CORPUSCULAR HGB CONC 31.6 g/dl (32-36)
--- NOTE | 2016-09-24 17:15 | History and Physical ---
History & Physical Date & Time of Service: Sep 24, 2016 at 16:24 Chief Complaint: Chf, Chronic Kidney Disease Primary Care Physician: Jadiel Ferrer M.D. History of Present Illness Source: patient, clinic records, hospital records This is an 81 y/o male with PMH of CKD stage IV, CAD, chronic systolic CHF with EF 30-35% in 2015, symptomatic bradycardia s/p pacemaker, atrial fibrillation on Coumadin, history of CVA, HTN, COPD, DM type 2, history of pancreatic CA, GERD, and other problems listed below who presents as a direct admission from Dr. Sifuentes for volume overload. patient reports 1 month history of 15 lb weight gain, bilateral LE edema, increased abdominal girth, diffuse abdominal pressure, dyspnea on exertion, orthopnea. He is not feeling SOB at present. Last week patient's Lasix was increased from 80 mg BID to 160 mg BID without improvement. No dietary indiscretion. He was seen by Dr. Sifuentes in clinic today and sent for direct admission for IV diuresis. Patient states he developed a concussion in Apr 2016 from falling and hitting his head. Since that time has intermittent headaches described as sharp electric pain starting in left episcopalian and radiating to his entire head. Headache is not bothering him at present. Tylenol helps at home. Patient also admits to cough with clear sputum, sore throat, nasal/ sinus congestion, sneezing, left ear ache for past 2 weeks. Has chronic RUE weakness from prior CVA. Patient denies fever, chills, vision change, acute numbness or weakness, chest pain, palpitations, syncope, N/ V/D, dysuria, increased frequency, abnormal bleeding. No sick contact or recent hospitalization. 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 Status: Chronic (8) CVA (cerebral vascular accident) Status: Chronic (9) Depression Status: Chronic (10) DM2 (diabetes mellitus, type 2) Status: Chronic (11) GERD (gastroesophageal reflux disease) Status: Chronic (12) HLD (hyperlipidemia) Status: Chronic (13) HTN (hypertension) Status: Chronic (14) Pancreatic cancer Permanent Comment: [place] 02/04 s/p neoadjuvant chemoradiotherapy 2005 Jason Urena MD Status: Chronic (15) Pancreatic insufficiency Status: Chronic Surgical Problems: (1) H/O cervical spine surgery Status: Chronic (2) H/O hernia repair Status: Chronic (3) H/O percutaneous transluminal coronary angioplasty Status: Resolved (4) History of cardiac cath Permanent Comment: with stent placement Status: Chronic (5) History of hip replacement Status: Chronic (6) S/P cholecystectomy Status: Chronic (7) S/P hip replacement Status: Chronic (8) Stented coronary artery Status: Chronic Family History Diabetes mellitus FH: cancer FH: gallbladder disease Heart disease Hypertension Kidney disease Lung disease Social History Smoking Status: Never Smoker Alcohol Use: none Marital Status: in relationship Housing status: lives with significant other Occupational Status: retired Immunizations History of Influenza Vaccine: Yes Influenza Vaccine Date: Jan 19, 2015 History of Tetanus Vaccine?: Unknown History of Pneumococcal: Yes Pneumococcal Date: Dec 21, 2010 History of Hepatitis B Vaccine: Unknown Multi-Drug Resistant Organisms History of MDRO: No Allergies Coded Allergies: Lisinopril (Verified Allergy, Unknown, RASH, 06/24/15) Spironolactone (Verified Allergy, Unknown, unkn, 06/24/15) Zolpidem (Verified Adverse Reaction, Unknown, HALLUCINATIONS, 06/24/15) Home Medications Scheduled Amiodarone HCl (Amiodarone HCl), 200 MG PO BID Ascorbic Acid (Ascorbic Acid), 1,000 MG PO DAILY Atorvastatin (Lipitor), 10 MG PO DAILY Calcitriol (Rocaltrol Cap), 0.25 MCG PO MWF Cholecalciferol (Vitamin D3), 1 TAB PO DAILY Clopidogrel Bisulfate (Plavix), 75 MG PO DAILY Esomeprazole Magnesium (Nexium), 40 MG PO DAILY Finasteride (Proscar), 1 TAB PO DAILY Fluticasone Furoate-Vilanterol (Breo Ellipta), 1 PUFF INH DAILY Fluticasone Propionate (Nasal) (Flonase Allergy Relief), 2 SPRAY RICHA DAILY Furosemide (Furosemide), 160 MG PO BID Insulin Aspart 70/30 (Novolog Mix 70/30), 28 SC am Insulin Aspart 70/30 (Novolog Mix 70/30), 12 SC PM Lansoprazole (Prevacid), 30 MG PO DAILY Metoprolol Succ (Toprol Xl) (Toprol-Xl), 1 TAB PO DAILY Multiple Vitamins W/ Minerals (Centrum Silver Ultra Mens), 1 TABLET PO DAILY Pancrelipase (Lipase-Protease- (Creon [id number]), 0 PO UD Sennosides-Docusate Sodium (Senexon-S), 1 TAB PO DAILY Sertraline (Zoloft), 25 MG PO DAILY Tamsulosin Hcl (Flomax), 0.4 MG PO DAILY Warfarin Sod (Coumadin), 1.5 MG PO UD Warfarin Sod (Coumadin), 3 MG PO UD Scheduled PRN Levalbuterol (Xopenex Hfa), 2 PUFFS INH Q4H PRN for SOB/COUGH/WHEEZING Nitroglycerin (Nitrostat), 0.4 MG UT UD PRN for Chest Pain Review of Systems Ten systems reviewed and negative except as noted in HPI. Physical Exam Vital Signs Date Time Temp Pulse Resp B/P (MAP) Pulse Ox O2 Delivery O2 Flow Rate FiO2 09/24/16 16:00 Room Air 09/24/16 15:41 36.6 78 18 113/56 97 Room Air General Appearance: WD/WN, no apparent distress, + pertinent finding (pleasant alert 81 year old male, sitting on bedside chair, no distress, significant other at bedside) Head: normocephalic, atraumatic, + pertinent finding (left and right episcopalian tender to palpation) Eyes: normal inspection, sclerae normal ENT: hearing grossly normal, pharynx normal, + pertinent finding (left canal and TM normal. declines to remove R hearing aid for exam. mild bilateral frontal and maxillary sinus tenderness.) Neck: supple, no JVD, trachea midline Respiratory/Chest: lungs clear, normal breath sounds, no respiratory distress, no accessory muscle use Cardiovascular: regular rate, rhythm, no murmur Abdomen/GI: normal bowel sounds, soft, + pertinent finding (moderately distended but soft. diffuse mild tenderness. ) Extremities/Musculoskelatal: no calf tenderness, + pertinent finding (2+ pretibial edema to the knee bilaterally) Neurologic/Psych: alert, normal mood/affect, oriented x 3, + pertinent finding (no facial droop. no dysarthria.) Skin: normal color, warm/dry, + pertinent finding (few scattered ecchymotic areas on upper extremities) Diagnostics Laboratory Results Results Past 24 Hours Test 09/24/16 15:14 09/24/16 15:49 09/24/16 15:57 09/24/16 16:12 Range/Units Prothrombin Time 28.6 9.0-12.0 SECONDS Prothromb Time International Ratio 2.6 0.9-1.1 Bedside Glucose 208 70-99 mg/dl Diagnostic Radiology HEAD CT NONCONTRAST CT DOSE: 537.48 mGy.cm HISTORY: Working headache. TECHNIQUE: Multiaxial CT images of the head were performed without the use of intravenous contrast. Automated exposure control was utilized for this study. Comparison: Head CT 03/08/2016. Findings: The paranasal sinuses and mastoid air cells are clear. The calvarium and skull base are intact. There is no mass, hematoma, midline shift, acute infarct. White matter hypodensity is nonspecific but suggestive of microvascular ischemic change. The ventricles and sulci demonstrate mild age-related involutional changes. Old right frontoparietal infarct remains unchanged. Impression: No significant change compared to the prior study. No acute intracranial abnormality. CHEST ONE VIEW PORTABLE CLINICAL HISTORY: volume overload dyspnea COMPARISON STUDY: 04/03/2016 FINDINGS: Moderate stable cardia megaly. Lungs are clear. Diaphragms smooth. IMPRESSION: Moderate stable cardiomegaly. EKG Ventricular-paced rhythm with occasional Premature ventricular complexes, no significant change from prior EKG, per cardiology read, also reviewed by me Impression Assessment and Plan VOLUME OVERLOAD Sent as direct admission by Dr. Sifuentes Presents with 15 lb weight gain, bilateral LE edema, increased abdominal girth, FAM Failed outpatient increase in PO Lasix to 160 mg BID H/o CKD stage IV, hx short term dialysis, chronic systolic CHF (EF 30-35% in 2015) CXR- moderate stable cardiomegaly, ? prominent pulmonary vasculature Pro-BNP elevated to ~17K Troponin bumped to 0.212- likely due to volume overload; will recheck this evening EKG shows v-paced rhythm with PVCs Check echo May have ascites- check abdominal US Will give IV Lasix 80 mg TID as per Dr. Sifuentes Fluid and sodium restriction Monitor daily weight and intake/output Consult nephrology HEADACHES Unclear etiology Ongoing since fall with concussion in April CT head negative Check ESR DM TYPE 2 Reported symptomatic hypoglycemia on home regimen- will hold home Novolog 70/30 Monitor BSG AC HS Novolog sliding scale Check A1c in am CORONARY ARTERY DISEASE No anginal symptoms Continue Plavix and beta mansi ATRIAL FIBRILLATION SYMPTOMATIC BRADYCARDIA S/P PACEMAKER In ventricular paced rhythm with occasional PVCs Continue amiodarone and metoprolol INR is 2.6; continue Coumadin HYPERTENSION BP is controlled Continue metoprolol CKD STAGE IV Creatinine is 2.3; baseline ~2-2.4 Monitor renal function on IV Lasix HISTORY OF CVA With residual LUE weakness Continue Plavix HISTORY PANCREATIC CA S/p [place], chemo, radiation in 2005 Continue pancreatic enzymes VTE PROPHYLAXIS On Coumadin DISPOSITION Admit to telemetry Follows with Dr. Ferrer for primary care CODE STATUS Full code per my discussion with the patient. Patient seen in collaboration with Dr. Colbert. Please see his addendum. Attending Note: Patient is 81 yr male who presents for management of Volume overload status as per recommendations from his Chemical Radiation Technician . Reports worsening edema, weight gain, SOB on exertion associated with clear sputum, generalized abdominal discomfort, chronic headache. Physical Exam: General Appearance:Moderately built and nourished, no apparent distress Head: normocephalic, Atraumatic, + Hearing loss Eyes: normal inspection, EOMI, PERRL Neck: supple, Trachea midline Respiratory/Chest: Normal breath sounds, CTA Cardiovascular: S1, S2, No murmur Abdomen/GI:Soft, generalized tenderness, Bowel sounds present Extremities/Musculoskelatal:normal inspection, 2+ edema Neurologic/Psych:AAOX3, grossly no focal neurological deficits Assessment and Plan: Volume overload:Multifactorial: CHF, CKD H/O Transient HD Continue diuretics per Nephrology I/Os, daily weight, fluid/salt restriction Update ECHO: prior ECHO showed pericardial effusion CHRONIC ELEVATION OF TROPONIN In setting of CHF/CKD Troponin elevation likely secondary to cardiac strain from volume overload status Denies chest pain, Trend cardiac enzymes Generalized Abd pian: Likely secondary to volume overload status Will get ABD USD I personally reviewed the record. Patient is interviewed and examined at bedside. Patient's care is coordinated with Meenakshi Dunbar PA-C. Please refer to the documentation above for details of patient's presentation and for discussion of other issues. Advanced Directives Existing Living Will: Yes Existing Power of Vp Construction: Yes VTE Prophylaxis VTE Risk Assessment Done? Y/N: Yes Risk Level: Moderate Given or contraindicated: Warfarin (Coumadin)
[2016-09-24] MEDS: INSULIN ASPART 100 UNITS/ML 3 ML PEN SC SCH ×2 (17:39→20:39)
[2016-09-24] MEDS: PANCREAZE (LIPASE 10,500U) CAP PO SCH (17:40)
[2016-09-24 19:14] VITALS: BP 124/68; PULSE 81; TEMP 36.5; O2SAT 96
[2016-09-24 20:08] LABS: URINE APPEARANCE CLEAR (CLEAR); URINE BILIRUBIN NEG (NEG); URINE COLOR YELLOW; URINE NITRITE NEG (NEG); UROBILINOGEN NEG (NEG); ZZUR CULT IF INDIC CLEAN CATCH YES
[2016-09-24 20:09] LABS: MANUAL MICROSCOPIC REQUIRED? NO; REVIEW REQ? NO
[2016-09-24 20:33] LABS: URINE PROTIEN/CREAT RATIO 0.4 (0-0.2)
[2016-09-24] MEDS: AMIODARONE 200 MG TAB PO SCH (20:34)
[2016-09-24] MEDS: FUROSEMIDE INJ 80 MG in SYRINGE 0 ML IV SCH (20:34)
[2016-09-25] VITALS: BP 117/64; PULSE 75; TEMP 36.8; O2SAT 97
[2016-09-25 04:00] VITALS: BP 109/52; PULSE 80; TEMP 36.8; O2SAT 92
[2016-09-25 06:57] LABS: BASO % 0.4 %; BASO ABS # 0.03 K/uL (0-0.2); COMPLETE YES; EOS % 3.2 %; HEMATOCRIT 32.6 % (42-52); IG% 0.4 %; LYMPH % 17.6 %; LYMPH ABS # 1.22 K/uL (1.2-3.4); MEAN CELL VOLUME 97.6 fL (80-100); MEAN CORPUSCULAR HEMOGLOBIN 29.6 pg (25-34); MEAN CORPUSCULAR HGB CONC 30.4 g/dl (32-36); MEAN PLATELET VOLUME 9.1 fL (7.4-10.4); MONO % 8.7 %; NEUT % 69.7 %; PLATELET COUNT 202 K/uL (130-400); RED BLOOD COUNT 3.34 M/uL (4.7-6.1); WHITE BLOOD COUNT 6.93 K/uL (4.8-10.8)
[2016-09-25 07:04] LABS: INR 2.5 (0.9-1.1); PROTHROMBIN TIME (PATIENT) 27.6 SECONDS (9.0-12.0)
[2016-09-25 07:29] LABS: BUN/CREATININE RATIO 14.8 (10-20); CREATININE 2.1 mg/dl (0.60-1.40); POTASSIUM 3.3 mmol/L (3.5-5.1)
--- NOTE | 2016-09-25 07:38 | DIAGNOSTIC IMAGING REPORT ---
ULTRASOUND ABDOMEN COMPLETE CLINICAL HISTORY: Generalized abdominal pain. COMPARISON STUDY: Abdominal CT dated 02/02/2013. TECHNIQUE: Real-time, grayscale, and color flow sonography of the abdomen was performed. Images are reviewed in the transverse and longitudinal planes. FINDINGS: Liver: The liver is normal in size and heterogeneous in echotexture. There is central intrahepatic biliary ductal dilatation. The main portal vein is patent. Gallbladder: The gallbladder is surgically absent. The common bile duct measures up to 0.5 cm in diameter. Pancreas: Not well visualized due to overlying bowel gas. Spleen: The spleen is normal in size and echotexture, measuring 10.3 cm in length. A 10 mm echogenic focus in the spleen is incidentally noted and of doubtful significance. Kidneys: The kidneys demonstrate cortical atrophy. There is no hydronephrosis. The right kidney measures 1.1 cm in length and the left kidney measures 10.3 cm in length. No shadowing calculi are identified. Small left renal cysts measure up to 2.8 cm. Abdominal vasculature: Visualized portions of the abdominal aorta is normal in caliber noting atherosclerotic irregularity. Ascites: None. IMPRESSION: 1. No acute sonographic abnormality is identified. 2. Status post cholecystectomy. 3. The pancreas was not visualized. Electronically signed by: Denny Kang M.D. 09/25/2016 7:37 AM Dictated Date/Time: 09/25/2016 7:33 AM
[2016-09-25 08:38] VITALS: BP 117/60; PULSE 74; TEMP 36.6; O2SAT 94
[2016-09-25] MEDS: FINASTERIDE 5 MG TAB PO SCH (08:52)
[2016-09-25] MEDS: PANTOprazole SOD 40 MG TAB PO SCH (08:52)
[2016-09-25] MEDS: AMIODARONE 200 MG TAB PO SCH ×2 (08:53→20:32)
[2016-09-25] MEDS: PANCREAZE (LIPASE 10,500U) CAP PO SCH ×3 (08:53→16:32)
[2016-09-25] MEDS: ATORVASTATIN 10 MG TAB PO SCH (08:53)
[2016-09-25] MEDS: DOCUSATE SODIUM/SENNA 50/8.6MG TAB PO SCH (08:53)
[2016-09-25] MEDS: FUROSEMIDE INJ 80 MG in SYRINGE 0 ML IV SCH ×3 (08:53→20:31)
[2016-09-25] MEDS: CHOLECALCIFEROL 1000 INTER.UNIT TAB PO SCH (08:53)
[2016-09-25] MEDS: CEROVITE ADV FORMULA TAB PO SCH (08:53)
[2016-09-25] MEDS: CLOPIDOGREL BISULFATE 75 MG TAB PO SCH (08:54)
[2016-09-25] MEDS: TAMSULOSIN HCL 0.4 MG CAP PO SCH (08:54)
[2016-09-25] MEDS: METOPROLOL SUCC 50MG EXT REL TAB PO SCH (08:54)
[2016-09-25] MEDS: SERTRALINE HCL 50 MG TAB PO SCH (08:54)
[2016-09-25] MEDS: ASCORBIC ACID 500 MG TAB PO SCH (08:54)
--- NOTE | 2016-09-25 08:54 | Clinical Documentation Query ---
CLINICAL DOCUMENTATION QUERY Dr. AKINS, In your clinical opinion is this patient being managed for: ( + ) Acute on chronic systolic CHF ( ) Other explanation of clinical findings (Please Explain) ( ) Unable to determine (Please Define) ( ) Need to Discuss ( ) Not Agree The medical record reflects the following clinical findings, treatment, and risk factors. Clinical Indicators: 81 yo male presenting with 15 lb wt gain in 1 month, bilateral LE edema, FAM, orthopnea, increasing abd girth. BNP 15495. H/P indicates multifactorial volume overload: CHF and CKD Treatment: tele, IV lasix TID, continue metoprolol and cordarone, daily wts, I/O, heart health/low Na diet, ECHO, nephrology consult Risk Factors:age, CKD stage IV, chronic systolic CHF, A fib, HTN, DM Please clarify and document your clinical opinion in the progress notes and discharge summary. Terms such as "probable", "suspected", "likely", "questionable", "possible", or "still to be ruled out" are acceptable. IF IN AGREEMENT, YOU MUST DOCUMENT ABOVE DIAGNOSTIC STATEMENT IN DAILY PROGRESS NOTES AND DISCHARGE SUMMARY. This document is not part of the patient's record. Thank You, Emily Salazar, IVANA [phone]
[2016-09-25] MEDS: FLUTICASONE PROPIONATE NA SPR 16 GM BTL NAE SCH (08:55)
[2016-09-25] MEDS: INSULIN ASPART 100 UNITS/ML 3 ML PEN SC SCH ×4 (08:57→20:30)
[2016-09-25] MEDS ORDERED: NON-FORMULARY MEDICATION (Fluticasone Furoate-Vilanterol (Breo Ellipta) 1 PUFF) INH SCH (09:00)
[2016-09-25] MEDS ORDERED: POTASSIUM CHLORIDE 10 MEQ TABCR PO STA (09:54)
--- NOTE | 2016-09-25 09:55 | ECHOCARDIOGRAM REPORT ---
*NOTICE TO RECEIVING [employer] This information is strictly Confidential and protected under [place] law. [place] law prohibits you from making any further disclosure of this information unless further disclosure is expressly permitted by the written consent of the person to whom it pertains or is authorized by law. A general authorization for the release of medical or other information is not sufficient for this purpose. Hospital accepts no responsibility if the information is made available to any other person, INCLUDING THE PATIENT. Interpretation Summary * Name: CALLY LOONEY JR Study Date: 09/25/2016 07:47 AM BP: 109/52 mmHg * Patient Location: C.2E\S\E212\S\1 HR: 80 * : 1935 (M/d/yyyy) Gender: Male Height: 65 in * Age: 81 yrs Ethnicity: CA Weight: 192 lb * Ordering Physician: Jason Colbert * Referring Physician: Janice Sifuentes I. * Performed By: Binta Moyer RDCS * * Reason For Study: CHF * BSA: 1.9 m2 * -- Conclusions -- * No significant change compared to previous studies dating back to 08/11. * Mildly dilated LV chamber size with normal wall thickness. * Severely reduced LV systolic function, EF 30-35%. * Moderate to severe global hypokinesis with slightly worsened inferior wall motion. * Aortic valve sclerosis moderate, without significant aortic valvular stenosis. Mild aortic insufficiency. * Moderate mitral regurgitation. * Moderate left atrial enlargement. Procedure Details * A complete two-dimensional transthoracic echocardiogram was performed (2D, M-mode, Doppler and color flow Doppler). Left Ventricle * The left ventricle is mildly dilated. * There is normal left ventricular wall thickness. * Ejection Fraction = 30-35%. * Left ventricular systolic function is severely reduced. * Moderate to severe global hypokinesis with slightly worsened inferior wall motion. Right Ventricle * The right ventricular cavity size is normal (basal dimension <4.2 cm in right ventricular apical 4-chamber view). * There is a pacemaker lead in the right ventricle. * The right ventricular systolic function is normal as assessed by tricuspid annular plane systolic excursion (TAPSE) (normal >1.5 cm). Atria * The left atrium is moderately dilated. * Right atrial size is normal. * No ASD detected; PFO is not assessed. Mitral Valve * The mitral valve anatomy is normal. * There is no mitral valve stenosis. * There is moderate mitral regurgitation. Tricuspid Valve * The tricuspid valve anatomy is normal. * There is no tricuspid stenosis. * There is mild tricuspid regurgitation. Aortic Valve * The aortic valve is trileaflet. * Aortic valve sclerosis moderate, without significant aortic valvular stenosis. * Mild aortic regurgitation. Pulmonic Valve * The pulmonary valve is not well seen, but the Doppler examination is normal without significant regurgitation or stenosis. Great Vessels * The aortic root is normal size. Pericardium/Pleural * There is no pericardial effusion. MMode 2D Measurements and Calculations IVSd 0.91 cm IVSs 1.1 cm LVIDd 5.6 cm LVIDs 4.7 cm LVPWd 2.1 cm LVPWs 2.8 cm IVS/LVPW 0.44 FS 14.9 % EDV(Teich) 151.0 ml ESV(Teich) 103.9 ml EF(Teich) 31.2 % EDV(cubed) 171.7 ml ESV(cubed) 105.9 ml EF(cubed) 38.3 % % IVS thick 22.4 % % LVPW thick 33.6 % LV mass(C)d 374.0 grams LV mass(C)dI 192.5 grams/m\S\2 LV mass(C)s 441.4 grams LV mass(C)sI 227.2 grams/m\S\2 SV(Teich) 47.1 ml SI(Teich) 24.2 ml/m\S\2 SV(cubed) 65.8 ml SI(cubed) 33.9 ml/m\S\2 Ao root diam 3.0 cm Ao root area 7.1 cm\S\2 LA dimension 5.0 cm LA/Ao 1.7 LVAd ap4 33.9 cm\S\2 LVLd ap4 7.9 cm EDV(MOD-sp4) 119.3 ml EDV(sp4-el) 123.6 ml LVAs ap4 27.4 cm\S\2 LVLs ap4 7.4 cm ESV(MOD-sp4) 86.4 ml ESV(sp4-el) 85.6 ml EF(MOD-sp4) 27.6 % EF(sp4-el) 30.7 % LVAd ap2 38.4 cm\S\2 LVLd ap2 8.1 cm EDV(MOD-sp2) 150.3 ml EDV(sp2-el) 154.2 ml LVAs ap2 30.7 cm\S\2 LVLs ap2 7.9 cm ESV(MOD-sp2) 100.6 ml ESV(sp2-el) 100.7 ml EF(MOD-sp2) 33.1 % EF(sp2-el) 34.7 % LVLd %diff 2.8 % EDV(MOD-bp) 133.3 ml LVLs %diff 6.5 % ESV(MOD-bp) 96.5 ml EF(MOD-bp) 27.7 % SV(MOD-sp4) 33.0 ml SI(MOD-sp4) 17.0 ml/m\S\2 SV(MOD-sp2) 49.7 ml SI(MOD-sp2) 25.6 ml/m\S\2 SV(MOD-bp) 36.9 ml SI(MOD-bp) 19.0 ml/m\S\2 SV(sp4-el) 38.0 ml SI(sp4-el) 19.5 ml/m\S\2 SV(sp2-el) 53.5 ml SI(sp2-el) 27.5 ml/m\S\2 Doppler Measurements and Calculations MV E max jony 103.5 cm/sec MV dec time 0.17 sec Ao V2 max 151.0 cm/sec Ao max PG 9.1 mmHg Ao max PG (full) 7.4 mmHg Ao V2 mean 107.1 cm/sec Ao mean PG 5.1 mmHg Ao mean PG (full) 4.1 mmHg Ao V2 VTI 32.7 cm AI max jony 325.5 cm/sec AI max PG 42.4 mmHg AI dec slope 160.3 cm/sec\S\2 AI P1/2t 594.6 msec LV V1 max PG 1.8 mmHg LV V1 mean PG 0.96 mmHg LV V1 max 66.3 cm/sec LV V1 mean 45.6 cm/sec LV V1 VTI 15.6 cm MR max jony 483.2 cm/sec MR max PG 93.4 mmHg SV(Ao) 231.0 ml SI(Ao) 118.9 ml/m\S\2 TR max jony 263.4 cm/sec
[2016-09-25 10:01] LABS: ESTIMATED AVERAGE GLUCOSE 157 mg/dl; HA1C FLAG Normal (Normal)
--- NOTE | 2016-09-25 11:22 | Progress Note ---
Internal Med Progress Note Date of Service: Sep 25, 2016. Provider Documentation: SUBJECTIVE: The patient was seen and examined Feels better today Diuresing a lot Denies any chest pain,palpitation,SOB OBJECTIVE: Vital Signs-as noted below Exam: General-No distress at rest Eyes-Normal ENT-normal Neck-supple Lungs-decreased breath sound bilaterally Minimal crackles at the bases Heart-Regular Abdomen-Distended,soft ,bowel sound present Extremities-1 + edema bilaterally Neuro-AAOx3 Lab data as noted below. ASSESSMENT & PLAN: Acute On Chronic Systolic Heart Failure Complicated by Renal failure and Atrial Fibrillation Presented with VOLUME OVERLOAD and FAM Failed outpatient increase in PO Lasix to 160 mg BID H/o CKD stage IV, hx short term dialysis, chronic systolic CHF (EF 30-35% in 2015) CXR- moderate stable cardiomegaly, Pro-BNP elevated to ~17K Troponin bumped to 0.212- likely due to volume overload; will recheck this evening EKG shows v-paced rhythm with PVCs Started on IV Lasix 80 mg TID as per Dr. Sifuentes Fluid and sodium restriction Repeat ECHO::No significant change compared to previous studies dating back to . * Mildly dilated LV chamber size with normal wall thickness. * Severely reduced LV systolic function, EF 30-35%. * Moderate to severe global hypokinesis with slightly worsened inferior wall motion. * Aortic valve sclerosis moderate, without significant aortic valvular stenosis. Mild aortic insufficiency. * Moderate mitral regurgitation. * Moderate left atrial enlargement. Clinically better Appreciate Nephrology input HEADACHES Ongoing since fall with concussion in April CT head negative Check ESR-~40 ,unremarkable No more complaints of Headache CKD STAGE IV Creatinine is 2.3; baseline ~2-2.4 Monitor renal function on IV Lasix Creatinine is stable Appreciate Nephrology input DM TYPE 2 Reported symptomatic hypoglycemia on home regimen- will hold home NovoLog 70/30 Monitor BSG AC HS NovoLog sliding scale Check A1c :7.1 CORONARY ARTERY DISEASE No anginal symptoms Continue Plavix and beta mansi Remains stable ATRIAL FIBRILLATION SYMPTOMATIC BRADYCARDIA S/P PACEMAKER In ventricular paced rhythm with occasional PVCs Continue amiodarone and metoprolol INR is 2.6; continue Coumadin HYPERTENSION BP is controlled Continue metoprolol HISTORY OF CVA With residual LUE weakness Continue Plavix HISTORY PANCREATIC CA S/p Whipple, chemo, radiation in 2005 Continue pancreatic enzymes VTE PROPHYLAXIS On Coumadin with Therapeutic INR CODE STATUS Full code per my discussion with the patient. DISPOSITION Awaited Vital Signs: Date Time Temp Pulse Resp B/P (MAP) Pulse Ox O2 Delivery O2 Flow Rate FiO2 09/25/16 08:38 36.6 74 18 117/60 (79) 94 Room Air 09/25/16 08:00 Room Air 09/25/16 04:00 Room Air 09/25/16 04:00 36.8 80 20 109/52 (71) 92 Room Air 09/25/16 00:00 36.8 75 20 117/64 (81) 97 Room Air 09/25/16 00:00 Room Air 09/24/16 20:00 Room Air 09/24/16 19:14 36.5 81 18 124/68 (86) 96 Room Air 09/24/16 16:00 Room Air 09/24/16 15:41 36.6 78 18 113/56 97 Room Air 09/24/16 15:15 36.6 78 20 113/56 (75) 97 Room Air Lab Results: Results Past 24 Hours Test 09/24/16 15:49 09/24/16 16:12 09/24/16 19:53 09/24/16 20:27 Range/Units White Blood Count 7.62 4.8-10.8 K/uL Red Blood Count 3.34 4.7-6.1 M/uL Hemoglobin 10.4 14.0-18.0 g/dL Hematocrit 32.9 42-52 % Mean Corpuscular Volume 98.5 80-100 fL Mean Corpuscular Hemoglobin 31.1 25-34 pg Mean Corpuscular Hemoglobin Concent 31.6 32-36 g/dl Platelet Count 230 130-400 K/uL Mean Platelet Volume 9.8 7.4-10.4 fL Neutrophils (%) (Auto) 71.7 % Lymphocytes (%) (Auto) 17.2 % Monocytes (%) (Auto) 7.7 % Eosinophils (%) (Auto) 2.4 % Basophils (%) (Auto) 0.7 % Neutrophils # (Auto) 5.47 1.4-6.5 K/uL Lymphocytes # (Auto) 1.31 1.2-3.4 K/uL Monocytes # (Auto) 0.59 0.11-0.59 K/uL Eosinophils # (Auto) 0.18 0-0.5 K/uL Basophils # (Auto) 0.05 0-0.2 K/uL RDW Standard Deviation 56.4 36.4-46.3 fL RDW Coefficient of Variation 15.8 11.5-14.5 % Immature Granulocyte % (Auto) 0.3 % Immature Granulocyte # (Auto) 0.02 0.00-0.02 K/uL Erythrocyte Sedimentation Rate 34 0-14 mm/hr Prothrombin Time 28.6 9.0-12.0 SECONDS Prothromb Time International Ratio 2.6 0.9-1.1 Sodium Level 139 136-145 mmol/L Potassium Level 3.9 3.5-5.1 mmol/L Chloride Level 102 98-107 mmol/L Carbon Dioxide Level 30 21-32 mmol/L Anion Gap 7.0 3-11 mmol/L Blood Urea Nitrogen 31 7-18 mg/dl Creatinine 2.30 0.60-1.40 mg/dl Est Creatinine Clear Calc Drug Dose 25.1 ml/min Estimated GFR () 29.5 Estimated GFR (Non- 25.5 BUN/Creatinine Ratio 13.6 10-20 Random Glucose 198 70-99 mg/dl Calcium Level 8.8 8.5-10.1 mg/dl Magnesium Level 2.5 1.8-2.4 mg/dl Troponin I 0.212 0-0.045 ng/ml Pro-B-Type Natriuretic Peptide 28969 0-1800 pg/ml Bedside Glucose 208 164 70-99 mg/dl Urine Color YELLOW Urine Appearance CLEAR CLEAR Urine pH 6.0 4.5-7.5 Urine Specific [place] 1.010 1.000-1.030 Urine Protein NEG NEG Urine Glucose (UA) NEG NEG Urine Ketones NEG NEG Urine Occult Blood TRACE NEG Urine Nitrite NEG NEG Urine Bilirubin NEG NEG Urine Urobilinogen NEG NEG Urine Leukocyte Esterase SMALL NEG Urine WBC (Auto) 5-10 0-5 /hpf Urine RBC (Auto) 0-4 0-4 /hpf Urine Hyaline Casts (Auto) 1-5 0-5 /lpf Urine Epithelial Cells (Auto) 10-20 0-5 /lpf Urine Bacteria (Auto) 2+ NEG Urine Random Creatinine 23.0 mg/dl Urine Random Total Protein 8.0 0-11.9 mg/dl Urine Protein/Creatinine Ratio 0.4 0-0.2 Test 09/24/16 22:03 09/25/16 06:36 09/25/16 06:42 Range/Units Troponin I 0.211 0-0.045 ng/ml White Blood Count 6.93 4.8-10.8 K/uL Red Blood Count 3.34 4.7-6.1 M/uL Hemoglobin 9.9 14.0-18.0 g/dL Hematocrit 32.6 42-52 % Mean Corpuscular Volume 97.6 80-100 fL Mean Corpuscular Hemoglobin 29.6 25-34 pg Mean Corpuscular Hemoglobin Concent 30.4 32-36 g/dl Platelet Count 202 130-400 K/uL Mean Platelet Volume 9.1 7.4-10.4 fL Neutrophils (%) (Auto) 69.7 % Lymphocytes (%) (Auto) 17.6 % Monocytes (%) (Auto) 8.7 % Eosinophils (%) (Auto) 3.2 % Basophils (%) (Auto) 0.4 % Neutrophils # (Auto) 4.83 1.4-6.5 K/uL Lymphocytes # (Auto) 1.22 1.2-3.4 K/uL Monocytes # (Auto) 0.60 0.11-0.59 K/uL Eosinophils # (Auto) 0.22 0-0.5 K/uL Basophils # (Auto) 0.03 0-0.2 K/uL RDW Standard Deviation 56.0 36.4-46.3 fL RDW Coefficient of Variation 15.8 11.5-14.5 % Immature Granulocyte % (Auto) 0.4 % Immature Granulocyte # (Auto) 0.03 0.00-0.02 K/uL Prothrombin Time 27.6 9.0-12.0 SECONDS Prothromb Time International Ratio 2.5 0.9-1.1 Sodium Level 141 136-145 mmol/L Potassium Level 3.3 3.5-5.1 mmol/L Chloride Level 103 98-107 mmol/L Carbon Dioxide Level 30 21-32 mmol/L Anion Gap 8.0 3-11 mmol/L Blood Urea Nitrogen 31 7-18 mg/dl Creatinine 2.10 0.60-1.40 mg/dl Est Creatinine Clear Calc Drug Dose 27.1 ml/min Estimated GFR () 33.0 Estimated GFR (Non- 28.5 BUN/Creatinine Ratio 14.8 10-20 Random Glucose 175 70-99 mg/dl Estimated Average Glucose 157 mg/dl Hemoglobin A1c 7.1 4.5-5.6 % Pro-B-Type Natriuretic Peptide 75652 0-1800 pg/ml Bedside Glucose 226 70-99 mg/dl Microbiology Results 09/24/16 Urine Culture - Preliminary, Resulted Escherichia Coli
[2016-09-25 12:14] VITALS: BP 128/80; PULSE 73; TEMP 36.4; O2SAT 97
[2016-09-25 12:51] LABS: CALCIUM 8.6 mg/dl (8.5-10.1)
[2016-09-25] MEDS ORDERED: WARFARIN SOD 0.5 MG TAB PO SCH (16:00)
[2016-09-25 16:07] VITALS: BP 112/59; PULSE 71; TEMP 36.6; O2SAT 97
[2016-09-25 19:16] VITALS: BP 105/59; PULSE 70; TEMP 36.5; O2SAT 95
[2016-09-26 00:29] VITALS: BP 108/57; PULSE 76; TEMP 36.8; O2SAT 93
[2016-09-26 04:49] VITALS: BP 113/69; PULSE 73; TEMP 37.1; O2SAT 93
[2016-09-26 07:59] VITALS: BP 114/70; PULSE 74; TEMP 36.6; O2SAT 97
[2016-09-26] MEDS: DOCUSATE SODIUM/SENNA 50/8.6MG TAB PO SCH (08:38)
[2016-09-26] MEDS: AMIODARONE 200 MG TAB PO SCH (08:38)
[2016-09-26] MEDS: TAMSULOSIN HCL 0.4 MG CAP PO SCH (08:38)
[2016-09-26] MEDS: FUROSEMIDE INJ 80 MG in SYRINGE 0 ML IV SCH ×2 (08:38→14:00)
[2016-09-26] MEDS: FINASTERIDE 5 MG TAB PO SCH (08:38)
[2016-09-26] MEDS: ASCORBIC ACID 500 MG TAB PO SCH (08:38)
[2016-09-26] MEDS: PANTOprazole SOD 40 MG TAB PO SCH (08:38)
[2016-09-26 08:39] LABS: INR 2.1 (0.9-1.1)
[2016-09-26] MEDS: PANCREAZE (LIPASE 10,500U) CAP PO SCH ×2 (08:39→11:44)
[2016-09-26] MEDS: CEROVITE ADV FORMULA TAB PO SCH (08:39)
[2016-09-26] MEDS: METOPROLOL SUCC 50MG EXT REL TAB PO SCH (08:39)
[2016-09-26] MEDS: CHOLECALCIFEROL 1000 INTER.UNIT TAB PO SCH (08:39)
[2016-09-26] MEDS: CLOPIDOGREL BISULFATE 75 MG TAB PO SCH (08:39)
[2016-09-26] MEDS: SERTRALINE HCL 50 MG TAB PO SCH (08:39)
[2016-09-26] MEDS: ATORVASTATIN 10 MG TAB PO SCH (08:39)
[2016-09-26] MEDS: FLUTICASONE PROPIONATE NA SPR 16 GM BTL NAE SCH (08:40)
[2016-09-26] MEDS: INSULIN ASPART 100 UNITS/ML 3 ML PEN SC SCH ×2 (08:42→11:45)
[2016-09-26 08:55] LABS: BUN/CREATININE RATIO 16.2 (10-20); CALCIUM 8.9 mg/dl (8.5-10.1); CREATININE 2.2 mg/dl (0.60-1.40)
[2016-09-26] MEDS ORDERED: CALCITRIOL 0.25 MCG CAP PO SCH (09:00)
--- NOTE | 2016-09-26 10:28 | Progress Note ---
Internal Med Progress Note Date of Service: Sep 26, 2016. Provider Documentation: SUBJECTIVE: The patient was seen and examined Feels much better today Diuresing a lot Denies any chest pain,palpitation,SOB Wants to go home OBJECTIVE: Vital Signs-as noted below Exam: General-No distress at rest Eyes-Normal ENT-normal Neck-supple Lungs-decreased breath sound bilaterally Minimal crackles at the bases Heart-Regular Abdomen-Distended,soft ,bowel sound present Extremities-1 + edema bilaterally Neuro-AAOx3 Lab data as noted below. ASSESSMENT & PLAN: Acute On Chronic Systolic Heart Failure Complicated by Renal failure and Atrial Fibrillation Presented with VOLUME OVERLOAD and FAM Failed outpatient increase in PO Lasix to 160 mg BID H/o CKD stage IV, hx short term dialysis, chronic systolic CHF (EF 30-35% in 2015) CXR- moderate stable cardiomegaly, Pro-BNP elevated to ~17K Troponin bumped to 0.212- likely due to volume overload; will recheck this evening EKG shows v-paced rhythm with PVCs Started on IV Lasix 80 mg TID as per Dr. Sifuentes Fluid and sodium restriction Repeat ECHO::No significant change compared to previous studies dating back to . * Mildly dilated LV chamber size with normal wall thickness. * Severely reduced LV systolic function, EF 30-35%. * Moderate to severe global hypokinesis with slightly worsened inferior wall motion. * Aortic valve sclerosis moderate, without significant aortic valvular stenosis. Mild aortic insufficiency. * Moderate mitral regurgitation. * Moderate left atrial enlargement. Clinically much better Appreciate Nephrology input Likely to go home today HEADACHES Ongoing since fall with concussion in April CT head negative Check ESR-~40 ,unremarkable No more complaints of Headache CKD STAGE IV Creatinine is 2.3; baseline ~2-2.4 Monitor renal function on IV Lasix Creatinine is stable Appreciate Nephrology input Kidney function remains stable DM TYPE 2 Reported symptomatic hypoglycemia on home regimen- will hold home NovoLog 70/30 Monitor BSG HS NovoLog sliding scale Check A1c :7.1 CORONARY ARTERY DISEASE No anginal symptoms Continue Plavix and beta mansi Remains stable ATRIAL FIBRILLATION SYMPTOMATIC BRADYCARDIA S/P PACEMAKER In ventricular paced rhythm with occasional PVCs Continue amiodarone and metoprolol INR is 2.6; continue Coumadin HYPERTENSION BP is controlled Continue metoprolol HISTORY OF CVA With residual LUE weakness Continue Plavix HISTORY PANCREATIC CA S/p Whipple, chemo, radiation in 2005 Continue pancreatic enzymes VTE PROPHYLAXIS On Coumadin with Therapeutic INR CODE STATUS Full code per my discussion with the patient. DISPOSITION Awaited Vital Signs: Date Time Temp Pulse Resp B/P (MAP) Pulse Ox O2 Delivery O2 Flow Rate FiO2 09/26/16 08:00 Room Air 09/26/16 07:59 36.6 74 16 114/70 (85) 97 Room Air 09/26/16 04:49 37.1 73 18 113/69 (84) 93 Room Air 09/26/16 04:24 Room Air 09/26/16 00:29 36.8 76 20 108/57 (74) 93 Room Air 09/26/16 00:00 Room Air 09/25/16 20:00 Room Air 09/25/16 19:16 36.5 70 22 105/59 (74) 95 Room Air 09/25/16 16:07 36.6 71 24 112/59 (76) 97 Room Air 09/25/16 16:00 Room Air 09/25/16 12:14 36.4 73 16 128/80 (96) 97 Room Air 09/25/16 12:00 Room Air Lab Results: Results Past 24 Hours Test 09/25/16 11:06 09/25/16 16:14 09/25/16 20:22 09/26/16 07:13 Range/Units Bedside Glucose 228 171 143 175 70-99 mg/dl Test 09/26/16 07:38 Range/Units Prothrombin Time 23.0 9.0-12.0 SECONDS Prothromb Time International Ratio 2.1 0.9-1.1 Sodium Level 141 136-145 mmol/L Potassium Level 4.0 3.5-5.1 mmol/L Chloride Level 102 98-107 mmol/L Carbon Dioxide Level 33 21-32 mmol/L Anion Gap 6.0 3-11 mmol/L Blood Urea Nitrogen 36 7-18 mg/dl Creatinine 2.20 0.60-1.40 mg/dl Est Creatinine Clear Calc Drug Dose 25.8 ml/min Estimated GFR () 31.2 Estimated GFR (Non- 26.9 BUN/Creatinine Ratio 16.2 10-20 Random Glucose 153 70-99 mg/dl Calcium Level 8.9 8.5-10.1 mg/dl
[2016-09-26 12:00] VITALS: BP 107/70; PULSE 71; TEMP 36.6; O2SAT 98
--- NOTE | 2016-09-26 14:01 | Discharge Instructions ---
Discharge Instructions Date of Service Sep 26, 2016. Admission Reason for Admission: Chf, Chronic Kidney Disease Discharge Discharge Diagnosis / Problem: CHF,Fluid Overload,CRF Discharge Goals Goal(s): Prevent Disease Progression Activity Recommendations Activity Limitations: resume your previous activity . Instructions / Follow-Up Instructions / Follow-Up Dr Ferrer on 10/01/16 at 11:00AM.Please keep follow up appointment with Coagulation clinic and User Experience [facility]. Please have BMP and Serum Mag checked during the visit and report to Dr Sifuentes Call your Primary Care doctor if any of the following symptoms or problems start or get worse: * Shortness of breath or difficulty breathing * Wake up at night short of breath * Chest pain * Cough * Swelling of your hands, feet, or legs * More fatigued or tired with your normal activity * Palpitations - sudden fast heart beats WEIGHT * Weigh yourself every morning after using the bathroom. * Use the same scale. * Wear the same amount of clothing. * Write your weight down on a chart. * Call your Primary Care doctor if you gain more than 2-3 pounds in 1-2 days. MEDICATIONS * Use this discharge instruction sheet for medication instructions. * Take your medications at the time your doctor ordered. * Do not skip a dose of your medicines. * If you miss a dose of medicine, take it as soon as possible, but DO NOT DOUBLE A DOSE. * Read your medicine information when you get home. * Know all of the side effects of your medicine. If in doubt, ask your pharmacist * Call your Primary Care doctor's office if you have any side effects. * Be sure all of your doctors know what medicine and herbs you take (including cold, flu, and herbal medicine). Take the following with you to your follow-up doctor appointments: * Weight Chart * Medication List * List of questions Do not drink excessive alcohol, beer or wine. Current Hospital Diet Patient's current hospital diet: Low Sodium Diet (2gm Na), AHA Diet (Heart Healthy), Diabetes Type 2 Diet Discharge Diet Recommended Diet: AHA Diet (Heart Healthy), Low Sodium Diet (2gm Na) Fluid Restriction: 1500 ml (6 cups) Pending Studies Studies pending at discharge: no Laboratory Results Hemoglobin A1c Test 09/25/16 06:36 Range/Units Estimated Average Glucose 157 mg/dl Hemoglobin A1c 7.1 H 4.5-5.6 % Medical Emergencies . Who to Call and When: Call 911 or go to the Emergency Room if: * If at any time you feel your situation is an emergency * You have tightness or pain in your chest that does not go away with rest or Nitroglycerin * You are very short of breath even with rest . Non-Emergent Contact Non-Emergency issues call your: Primary Care Provider . Past History Medical & Surgical History: (1) Volume overload (2) CKD (chronic kidney disease), stage III (3) HTN (hypertension) (4) Afib (5) CHF (congestive heart failure) (6) DM2 (diabetes mellitus, type 2) (7) COPD (chronic obstructive pulmonary disease) (8) Pancreatic insufficiency (9) Depression (10) BPH (benign prostatic hyperplasia) (11) H/O percutaneous transluminal coronary angioplasty (12) Stented coronary artery (13) History of hip replacement (14) History of cardiac cath (15) H/O hernia repair (16) S/P cholecystectomy (17) S/P hip replacement (18) H/O cervical spine surgery . "Provider Documentation" section prepared by Alex Samuels. . VTE Core Measure Inpt VTE Proph given/why not?: Warfarin (Coumadin)
[2016-09-26 14:24] VITALS: BP 107/70; PULSE 71; TEMP 36.6; O2SAT 98
--- NOTE | 2016-09-27 07:09 | Discharge Summary ---
Discharge Summary Date of Service Sep 27, 2016. Discharge Summary Admission Date: Sep 24, 2016 at 14:44 Discharge Date: Sep 26, 2016 Discharge Disposition: Home Principal Diagnosis: CHF,Fluid Overload,CRF Secondary Diagnoses/Problems: Please see H&P and Hospital Progress note Consultations: Nephrology Medication Reconciliation Continued Medications: Amiodarone HCl (Amiodarone HCl) 200 Mg Tab 200 MG PO BID, #60 TAB Ascorbic Acid (Ascorbic Acid) 500 Mg Tab 1000 MG PO DAILY, TAB Atorvastatin (Lipitor) 10 Mg Tab 10 MG PO DAILY, TAB Calcitriol (Rocaltrol Cap) 0.25 Mcg Cap 0.25 MCG PO MWF, CAP Cholecalciferol (Vitamin D3) 1,000 Unit Tab 1 TAB PO DAILY for 30 Days, #30 TAB 5 Refills Clopidogrel Bisulfate (Plavix) 75 Mg Tab 75 MG PO DAILY, TAB Esomeprazole Magnesium (Nexium) 40 Mg Capcr 40 MG PO DAILY, CAP Finasteride (Proscar) 5 Mg Tab 1 TAB PO DAILY for 90 Days, #90 TAB 1 Refill Fluticasone Furoate-Vilanterol (Breo Ellipta) 1 Inh Inh 1 PUFF INH DAILY Fluticasone Propionate (Nasal) (Flonase Allergy Relief) 50 Mcg/Act Spr 2 SPRAY RICHA DAILY Furosemide (Furosemide) 80 Mg Tab 160 MG PO BID, #60 TAB Insulin Aspart 70/30 (Novolog Mix 70/30) Susp 28 SC am, BTL Insulin Aspart 70/30 (Novolog Mix 70/30) Susp 12 SC PM, BTL Lansoprazole (Prevacid) 30 Mg Capcr 30 MG PO DAILY, CAP Levalbuterol (Xopenex Hfa) Inh 2 PUFFS INH Q4H PRN for SOB/COUGH/WHEEZING Metoprolol Succ (Toprol Xl) (Toprol-Xl) 50 Mg Tabcr 1 TAB PO DAILY for 30 Days, #30 TAB 5 Refills Multiple Vitamins W/ Minerals (Centrum Silver Ultra Mens) 1 Tab Tab 1 TABLET PO DAILY Nitroglycerin (Nitrostat) 0.4 Mg Sub 0.4 MG UT UD PRN for Chest Pain, BTL Pancrelipase (Lipase-Protease- (Creon 33701) 1 Cap Cap 0 PO UD, CAP 3 capsules before each meal. 1 capsule before snacks. Sennosides-Docusate Sodium (Senexon-S) 1 Tab Tab 1 TAB PO DAILY Sertraline (Zoloft) 25 Mg Tab 25 MG PO DAILY, TAB TAKE 1 TABLET DAILY Tamsulosin Hcl (Flomax) 0.4 Mg Cap 0.4 MG PO DAILY, CAP Warfarin Sod (Coumadin) 3 Mg Tab 1.5 MG PO UD Take 1.5 mg by mouth on Saturday, , and Saturday. Warfarin Sod (Coumadin) 3 Mg Tab 3 MG PO UD Take 3 mg by mouth on Saturday, Saturday, Saturday, Saturday. Admission Information HPI (per Admitting provider): This is an 81 y/o male with PMH of CKD stage IV, CAD, chronic systolic CHF with EF 30-35% in 2015, symptomatic bradycardia s/p pacemaker, atrial fibrillation on Coumadin, history of CVA, HTN, COPD, DM type 2, history of pancreatic CA, GERD, and other problems listed below who presents as a direct admission from Dr. Sifuentes for volume overload. patient reports 1 month history of 15 lb weight gain, bilateral LE edema, increased abdominal girth, diffuse abdominal pressure, dyspnea on exertion, orthopnea. He is not feeling SOB at present. Last week patient's Lasix was increased from 80 mg BID to 160 mg BID without improvement. No dietary indiscretion. He was seen by Dr. Sifuentes in clinic today and sent for direct admission for IV diuresis. Patient states he developed a concussion in Apr 2016 from falling and hitting his head. Since that time has intermittent headaches described as sharp electric pain starting in left anglican and radiating to his entire head. Headache is not bothering him at present. Tylenol helps at home. Patient also admits to cough with clear sputum, sore throat, nasal/ sinus congestion, sneezing, left ear ache for past 2 weeks. Has chronic RUE weakness from prior CVA. Patient denies fever, chills, vision change, acute numbness or weakness, chest pain, palpitations, syncope, N/ V/D, dysuria, increased frequency, abnormal bleeding. No sick contact or recent hospitalization. Past Medical/Surgical History Medical Problems: (1) Afib Status: Chronic (2) BPH (benign prostatic hyperplasia) Status: Chronic (3) CAD (coronary artery disease) Status: Chronic (4) CHF (congestive heart failure) Status: Chronic (5) CKD (chronic kidney disease), stage III Status: Chronic (6) COPD (chronic obstructive pulmonary disease) Status: Chronic (7) Current use of long term care social worker anticoagulation Status: Chronic (8) CVA (cerebral vascular accident) Status: Chronic (9) Depression Status: Chronic (10) DM2 (diabetes mellitus, type 2) Status: Chronic (11) GERD (gastroesophageal reflux disease) Status: Chronic (12) HLD (hyperlipidemia) Status: Chronic (13) HTN (hypertension) Status: Chronic (14) Pancreatic cancer Permanent Comment: Whipple 02/04 s/p neoadjuvant chemoradiotherapy 2005 Jason Urena MD Status: Chronic (15) Pancreatic insufficiency Status: Chronic Surgical Problems: (1) H/O cervical spine surgery Status: Chronic (2) H/O hernia repair Status: Chronic (3) H/O percutaneous transluminal coronary angioplasty Status: Resolved (4) History of cardiac cath Permanent Comment: with stent placement Status: Chronic (5) History of hip replacement Status: Chronic (6) S/P cholecystectomy Status: Chronic (7) S/P hip replacement Status: Chronic (8) Stented coronary artery Status: Chronic Family History Diabetes mellitus FH: cancer FH: gallbladder disease Heart disease Hypertension Kidney disease Lung disease Social History Smoking Status: Never Smoker Alcohol Use: none Marital Status: in relationship Housing status: lives with significant other Occupational Status: retired Immunizations History of Influenza Vaccine: Yes Influenza Vaccine Date: Jan 19, 2015 History of Tetanus Vaccine?: Unknown History of Pneumococcal: Yes Pneumococcal Date: Dec 21, 2010 History of Hepatitis B Vaccine: Unknown Multi-Drug Resistant Organisms History of MDRO: No Allergies Coded Allergies: Lisinopril (Verified Allergy, Unknown, RASH, 06/24/15) Spironolactone (Verified Allergy, Unknown, unkn, 06/24/15) Zolpidem (Verified Adverse Reaction, Unknown, HALLUCINATIONS, 06/24/15) Home Medications Scheduled Amiodarone HCl (Amiodarone HCl), 200 MG PO BID Ascorbic Acid (Ascorbic Acid), 1,000 MG PO DAILY Atorvastatin (Lipitor), 10 MG PO DAILY Calcitriol (Rocaltrol Cap), 0.25 MCG PO MWF Cholecalciferol (Vitamin D3), 1 TAB PO DAILY Clopidogrel Bisulfate (Plavix), 75 MG PO DAILY Esomeprazole Magnesium (Nexium), 40 MG PO DAILY Finasteride (Proscar), 1 TAB PO DAILY Fluticasone Furoate-Vilanterol (Breo Ellipta), 1 PUFF INH DAILY Fluticasone Propionate (Nasal) (Flonase Allergy Relief), 2 SPRAY RICHA DAILY Furosemide (Furosemide), 160 MG PO BID Insulin Aspart 70/30 (Novolog Mix 70/30), 28 SC am Insulin Aspart 70/30 (Novolog Mix 70/30), 12 SC PM Lansoprazole (Prevacid), 30 MG PO DAILY Metoprolol Succ (Toprol Xl) (Toprol-Xl), 1 TAB PO DAILY Multiple Vitamins W/ Minerals (Centrum Silver Ultra Mens), 1 TABLET PO DAILY Pancrelipase (Lipase-Protease- (Creon 75428), 0 PO UD Sennosides-Docusate Sodium (Senexon-S), 1 TAB PO DAILY Sertraline (Zoloft), 25 MG PO DAILY Tamsulosin Hcl (Flomax), 0.4 MG PO DAILY Warfarin Sod (Coumadin), 1.5 MG PO UD Warfarin Sod (Coumadin), 3 MG PO UD Scheduled PRN Levalbuterol (Xopenex Hfa), 2 PUFFS INH Q4H PRN for SOB/COUGH/WHEEZING Nitroglycerin (Nitrostat), 0.4 MG UT UD PRN for Chest Pain Review of Systems Ten systems reviewed and negative except as noted in HPI. Physical Ex - H&P Physical Exam Vital Signs Date Time Temp Pulse Resp B/P (MAP) Pulse Ox O2 Delivery O2 Flow Rate FiO2 09/24/16 16:00 Room Air 09/24/16 15:41 36.6 78 18 113/56 97 Room Air General Appearance: WD/WN, no apparent distress, + pertinent finding (pleasant alert 81 year old male, sitting on bedside chair, no distress, significant other at bedside) Head: normocephalic, atraumatic, + pertinent finding (left and right anglican tender to palpation) Eyes: normal inspection, sclerae normal ENT: hearing grossly normal, pharynx normal, + pertinent finding (left canal and TM normal. declines to remove R hearing aid for exam. mild bilateral frontal and maxillary sinus tenderness.) Neck: supple, no JVD, trachea midline Respiratory/Chest: lungs clear, normal breath sounds, no respiratory distress, no accessory muscle use Cardiovascular: regular rate, rhythm, no murmur Abdomen/GI: normal bowel sounds, soft, + pertinent finding (moderately distended but soft. diffuse mild tenderness. ) Extremities/Musculoskelatal: no calf tenderness, + pertinent finding (2+ pretibial edema to the knee bilaterally) Neurologic/Psych: alert, normal mood/affect, oriented x 3, + pertinent finding (no facial droop. no dysarthria.) Skin: normal color, warm/dry, + pertinent finding (few scattered ecchymotic areas on upper extremities) Diagnostics - H&P Diagnostics Laboratory Results Results Past 24 Hours Test 09/24/16 15:14 09/24/16 15:49 09/24/16 15:57 09/24/16 16:12 Range/Units Prothrombin Time 28.6 9.0-12.0 SECONDS Prothromb Time International Ratio 2.6 0.9-1.1 Bedside Glucose 208 70-99 mg/dl Diagnostic Radiology HEAD CT NONCONTRAST CT DOSE: 537.48 mGy.cm HISTORY: Working headache. TECHNIQUE: Multiaxial CT images of the head were performed without the use of intravenous contrast. Automated exposure control was utilized for this study. Comparison: Head CT 03/08/2016. Findings: The paranasal sinuses and mastoid air cells are clear. The calvarium and skull base are intact. There is no mass, hematoma, midline shift, acute infarct. White matter hypodensity is nonspecific but suggestive of microvascular ischemic change. The ventricles and sulci demonstrate mild age-related involutional changes. Old right frontoparietal infarct remains unchanged. Impression: No significant change compared to the prior study. No acute intracranial abnormality. CHEST ONE VIEW PORTABLE CLINICAL HISTORY: volume overload dyspnea COMPARISON STUDY: 04/03/2016 FINDINGS: Moderate stable cardia megaly. Lungs are clear. Diaphragms smooth. IMPRESSION: Moderate stable cardiomegaly. EKG Ventricular-paced rhythm with occasional Premature ventricular complexes, no significant change from prior EKG, per cardiology read, also reviewed by me Impression - H&P Impression Assessment and Plan VOLUME OVERLOAD Sent as direct admission by Dr. Sifuentes Presents with 15 lb weight gain, bilateral LE edema, increased abdominal girth, FAM Failed outpatient increase in PO Lasix to 160 mg BID H/o CKD stage IV, hx short term dialysis, chronic systolic CHF (EF 30-35% in 2015) CXR- moderate stable cardiomegaly, ? prominent pulmonary vasculature Pro-BNP elevated to ~17K Troponin bumped to 0.212- likely due to volume overload; will recheck this evening EKG shows v-paced rhythm with PVCs Check echo May have ascites- check abdominal US Will give IV Lasix 80 mg TID as per Dr. Sifuentes Fluid and sodium restriction Monitor daily weight and intake/output Consult nephrology HEADACHES Unclear etiology Ongoing since fall with concussion in April CT head negative Check ESR DM TYPE 2 Reported symptomatic hypoglycemia on home regimen- will hold home Novolog 70/30 Monitor BSG AC HS Novolog sliding scale Check A1c in am CORONARY ARTERY DISEASE No anginal symptoms Continue Plavix and beta mansi ATRIAL FIBRILLATION SYMPTOMATIC BRADYCARDIA S/P PACEMAKER In ventricular paced rhythm with occasional PVCs Continue amiodarone and metoprolol INR is 2.6; continue Coumadin HYPERTENSION BP is controlled Continue metoprolol CKD STAGE IV Creatinine is 2.3; baseline ~2-2.4 Monitor renal function on IV Lasix HISTORY OF CVA With residual LUE weakness Continue Plavix HISTORY PANCREATIC CA S/p Whipple, chemo, radiation in 2005 Continue pancreatic enzymes VTE PROPHYLAXIS On Coumadin DISPOSITION Admit to telemetry Follows with Dr. Ferrer for primary care CODE STATUS Full code per my discussion with the patient. Patient seen in collaboration with Dr. Colbert. Please see his addendum. Attending Note: Patient is 81 yr male who presents for management of Volume overload status as per recommendations from his Title I Coordinator . Reports worsening edema, weight gain, SOB on exertion associated with clear sputum, generalized abdominal discomfort, chronic headache. Physical Exam: General Appearance:Moderately built and nourished, no apparent distress Head: normocephalic, Atraumatic, + Hearing loss Eyes: normal inspection, EOMI, PERRL Neck: supple, Trachea midline Respiratory/Chest: Normal breath sounds, CTA Cardiovascular: S1, S2, No murmur Abdomen/GI:Soft, generalized tenderness, Bowel sounds present Extremities/Musculoskelatal:normal inspection, 2+ edema Neurologic/Psych:AAOX3, grossly no focal neurological deficits Assessment and Plan: Volume overload:Multifactorial: CHF, CKD H/O Transient HD Continue diuretics per Nephrology I/Os, daily weight, fluid/salt restriction Update ECHO: prior ECHO showed pericardial effusion CHRONIC ELEVATION OF TROPONIN In setting of CHF/CKD Troponin elevation likely secondary to cardiac strain from volume overload status Denies chest pain, Trend cardiac enzymes Generalized Abd pian: Likely secondary to volume overload status Will get ABD USD I personally reviewed the record. Patient is interviewed and examined at bedside. Patient's care is coordinated with Meenakshi Dunbar PA-C. Please refer to the documentation above for details of patient's presentation and for discussion of other issues. Advanced Directives Existing Living Will: Yes Existing Power of Annealing Oven Operator: Yes VTE Prophylaxis VTE Risk Assessment Done? Y/N: Yes Risk Level: Moderate Given or contraindicated: Warfarin (Coumadin) Physical Exam (per Admitting): General Appearance: WD/WN, no apparent distress, + pertinent finding ( pleasant alert 81 year old male, sitting on bedside chair, no distress, significant other at bedside) Head: normocephalic, atraumatic, + pertinent finding (left and right anglican tender to palpation) Eyes: normal inspection, sclerae normal ENT: hearing grossly normal, pharynx normal, + pertinent finding (left canal and TM normal. declines to remove R hearing aid for exam. mild bilateral frontal and maxillary sinus tenderness.) Neck: supple, no JVD, trachea midline Respiratory/Chest: lungs clear, normal breath sounds, no respiratory distress, no accessory muscle use Cardiovascular: regular rate, rhythm, no murmur Abdomen/GI: normal bowel sounds, soft, + pertinent finding (moderately distended but soft. diffuse mild tenderness. ) Extremities/Musculoskelatal: no calf tenderness, + pertinent finding (2+ pretibial edema to the knee bilaterally) Neurologic/Psych: alert, normal mood/affect, oriented x 3, + pertinent finding (no facial droop. no dysarthria.) Skin: normal color, warm/dry, + pertinent finding (few scattered ecchymotic areas on upper extremities) Hospital Course Acute On Chronic Systolic Heart Failure Complicated by Renal failure and Atrial Fibrillation Presented with VOLUME OVERLOAD and FAM Failed outpatient increase in PO Lasix to 160 mg BID H/o CKD stage IV, hx short term dialysis, chronic systolic CHF (EF 30-35% in 2015) CXR- moderate stable cardiomegaly, Pro-BNP elevated to ~17K Troponin bumped to 0.212- likely due to volume overload; will recheck this evening EKG shows v-paced rhythm with PVCs Started on IV Lasix 80 mg TID as per Dr. Sifuentes Fluid and sodium restriction Repeat ECHO::No significant change compared to previous studies dating back to . * Mildly dilated LV chamber size with normal wall thickness. * Severely reduced LV systolic function, EF 30-35%. * Moderate to severe global hypokinesis with slightly worsened inferior wall motion. * Aortic valve sclerosis moderate, without significant aortic valvular stenosis. Mild aortic insufficiency. * Moderate mitral regurgitation. * Moderate left atrial enlargement. Clinically much better Appreciate Nephrology input Likely to go home today HEADACHES Ongoing since fall with concussion in April CT head negative Check ESR-~40 ,unremarkable No more complaints of Headache CKD STAGE IV Creatinine is 2.3; baseline ~2-2.4 Monitor renal function on IV Lasix Creatinine is stable Appreciate Nephrology input Kidney function remains stable DM TYPE 2 Reported symptomatic hypoglycemia on home regimen- will hold home NovoLog 70/30 Monitor BSG AC HS NovoLog sliding scale Check A1c :7.1 CORONARY ARTERY DISEASE No anginal symptoms Continue Plavix and beta mansi Remains stable ATRIAL FIBRILLATION SYMPTOMATIC BRADYCARDIA S/P PACEMAKER In ventricular paced rhythm with occasional PVCs Continue amiodarone and metoprolol INR is 2.6; continue Coumadin HYPERTENSION BP is controlled Continue metoprolol HISTORY OF CVA With residual LUE weakness Continue Plavix HISTORY PANCREATIC CA S/p Whipple, chemo, radiation in 2005 Continue pancreatic enzymes VTE PROPHYLAXIS On Coumadin with Therapeutic INR CODE STATUS Full code per my discussion with the patient. DISPOSITION Awaited Total time spent on discharge = This includes examination of the patient, discharge planning, medication reconciliation, and communication with other providers. Discharge Instructions Date of Service Sep 26, 2016. Admission Reason for Admission: Chf, Chronic Kidney Disease Discharge Discharge Diagnosis / Problem: CHF,Fluid Overload,CRF Discharge Goals Goal(s): Prevent Disease Progression Activity Recommendations Activity Limitations: resume your previous activity . Instructions / Follow-Up Instructions / Follow-Up Dr Ferrer on 10/01/16 at 11:00AM.Please keep follow up appointment with Coagulation clinic and Title I Coordinator. Please have BMP and Serum Mag checked during the visit and report to Dr Sifuentes Call your Primary Care doctor if any of the following symptoms or problems start or get worse: * Shortness of breath or difficulty breathing * Wake up at night short of breath * Chest pain * Cough * Swelling of your hands, feet, or legs * More fatigued or tired with your normal activity * Palpitations - sudden fast heart beats WEIGHT * Weigh yourself every morning after using the bathroom. * Use the same scale. * Wear the same amount of clothing. * Write your weight down on a chart. * Call your Primary Care doctor if you gain more than 2-3 pounds in 1-2 days. MEDICATIONS * Use this discharge instruction sheet for medication instructions. * Take your medications at the time your doctor ordered. * Do not skip a dose of your medicines. * If you miss a dose of medicine, take it as soon as possible, but DO NOT DOUBLE A DOSE. * Read your medicine information when you get home. * Know all of the side effects of your medicine. If in doubt, ask your pharmacist * Call your Primary Care doctor's office if you have any side effects. * Be sure all of your doctors know what medicine and herbs you take (including cold, flu, and herbal medicine). Take the following with you to your follow-up doctor appointments: * Weight Chart * Medication List * List of questions Do not drink excessive alcohol, beer or wine. Current Hospital Diet Patient's current hospital diet: Low Sodium Diet (2gm Na), AHA Diet (Heart Healthy), Diabetes Type 2 Diet Discharge Diet Recommended Diet: AHA Diet (Heart Healthy), Low Sodium Diet (2gm Na) Fluid Restriction: 1500 ml (6 cups) Pending Studies Studies pending at discharge: no Laboratory Results Hemoglobin A1c Test 09/25/16 06:36 Range/Units Estimated Average Glucose 157 mg/dl Hemoglobin A1c 7.1 H 4.5-5.6 % Medical Emergencies . Who to Call and When: Call 911 or go to the Emergency Room if: * If at any time you feel your situation is an emergency * You have tightness or pain in your chest that does not go away with rest or Nitroglycerin * You are very short of breath even with rest . Non-Emergent Contact Non-Emergency issues call your: Primary Care Provider . Past History Medical & Surgical History: (1) Volume overload (2) CKD (chronic kidney disease), stage III (3) HTN (hypertension) (4) Afib (5) CHF (congestive heart failure) (6) DM2 (diabetes mellitus, type 2) (7) COPD (chronic obstructive pulmonary disease) (8) Pancreatic insufficiency (9) Depression (10) BPH (benign prostatic hyperplasia) (11) H/O percutaneous transluminal coronary angioplasty (12) Stented coronary artery (13) History of hip replacement (14) History of cardiac cath (15) H/O hernia repair (16) S/P cholecystectomy (17) S/P hip replacement (18) H/O cervical spine surgery . "Provider Documentation" section prepared by Alex Samuels. . VTE Core Measure Inpt VTE Proph given/why not?: Warfarin (Coumadin) <Electronically signed by Alex Samuels M.D.> Additional Copies To Jadiel Ferrer M.D.
--- NOTE | 2016-10-17 07:46 | Medical Consult ---
Consultation Note Date of Service Oct 17, 2016. Consultation Note Routine consult. Pt was discharged prior to consultation being done. No charge was placed for this consult.
[2017-01-14] MEDS ORDERED: LSX80 PO (11:34)
[2017-01-14] MEDS ORDERED: CEFD300C3 PO (11:34)
[2017-02-03] MEDS ORDERED: PANCCAP2 PO (10:04)
[2017-02-03] MEDS ORDERED: TAMS0.4C38 PO (10:04)
[2017-02-03] MEDS ORDERED: FURO80TA63 PO (10:04)
[2017-02-03] MEDS ORDERED: VNTHFA/IN INH (10:04)
[2017-02-03] MEDS ORDERED: ZRX25 PO (10:05)
[2017-02-06] MEDS ORDERED: CRD200 PO (11:25)
[2017-02-06] MEDS ORDERED: LSX/80 PO (11:25)
[2017-02-06] MEDS ORDERED: MCRK/10 PO (11:25)
[2017-02-07] MEDS ORDERED: MCRK/10 PO (12:30)
[2017-02-07] MEDS ORDERED: LSX/80 PO (12:30)
[2017-02-07] MEDS ORDERED: CRD200 PO (12:30)
== END 2016-09-26 15:20 | disposition home or self-care (01) | DRG 291 ==
LOC: C.2E 14:44
PROVIDERS: ADMIT Hospitalist; ATTEND Internal Medicine
DX: I13.0 Hypertensive heart and chronic kidney disease with heart failure and stage 1 through stage 4 chronic kidney disease, or unspecified chronic kidney disease (principal); I50.23 Acute on chronic systolic (congestive) heart failure; N18.4 Chronic kidney disease, stage 4 (severe); I69.354 Hemiplegia and hemiparesis following cerebral infarction affecting left non-dominant side; E11.22 Type 2 diabetes mellitus with diabetic chronic kidney disease; I25.10 Atherosclerotic heart disease of native coronary artery without angina pectoris; I48.91 Unspecified atrial fibrillation; K21.9 Gastro-esophageal reflux disease without esophagitis; R51 Headache; Z79.01 Long term (current) use of anticoagulants; Z79.02 Long term (current) use of antithrombotics/antiplatelets; Z79.4 Long term (current) use of insulin; Z79.899 Other long term (current) drug therapy; Z85.07 Personal history of malignant neoplasm of pancreas; Z95.0 Presence of cardiac pacemaker

== ENCOUNTER 2017-01-10 15:22 | Inpatient (IN) | payer OTHER ==
[~2017-01-10] VITALS: Ht 165.1 cm; Wt 80.3 kg
[~2017-01-10 15:22] MED LIST changes: -ASCO250T4 PO; +ASCO500T16 PO; -ATOR10TA82 PO; +ATOR10TA88 PO; +CHOL1000 PO; -CMD25 PO; +CMD3 PO; -DOCU-94 PO; +LANS30CA12 PO; -MRLP17X PO; +SENN-83 PO
[2017-01-10] MEDS ORDERED: ONDANSETRON INJ 2 MG/ML 2 ML VIAL IV STA (15:40)
[2017-01-10] MEDS ORDERED: SODIUM CHLORIDE 0.9% 1000ML 1,000 ML IV STA (15:40)
[2017-01-10 15:57] LABS: BASO % 0.5 %; BASO ABS # 0.05 K/uL (0-0.2); COMPLETE YES; EOS % 1.3 %; HEMATOCRIT 47.4 % (42-52); IG% 0.4 %; MEAN CELL VOLUME 87.6 fL (80-100); MEAN CORPUSCULAR HEMOGLOBIN 29.4 pg (25-34); MEAN CORPUSCULAR HGB CONC 33.5 g/dl (32-36); MEAN PLATELET VOLUME 9.9 fL (7.4-10.4); MONO % 8.9 %; NEUT % 71.9 %; PLATELET COUNT 246 K/uL (130-400); RED BLOOD COUNT 5.41 M/uL (4.7-6.1); WHITE BLOOD COUNT 10.59 K/uL (4.8-10.8)
--- NOTE | 2017-01-10 15:57 | DIAGNOSTIC IMAGING REPORT ---
CHEST ONE VIEW PORTABLE CLINICAL HISTORY: Weakness COMPARISON STUDY: 09/24/2016 FINDINGS: The heart remains enlarged. There is a left subclavian pacer/defibrillator present. There is no failure. There is no lobar consolidation. There are no pleural effusions. There are minor basilar atelectatic changes.[ IMPRESSION: Cardiomegaly. No active disease in the chest. Electronically signed by: Mohsen Dobbs M.D. 01/10/2017 3:56 PM Dictated Date/Time: 01/10/2017 3:53 PM
[2017-01-10 16:05] LABS: ISTAT CREATININE 5.1 mg/dl (0.6-1.3); ISTAT HEMOGLOBIN 17.3 g/dl (14.0-18.0); ISTAT IONIZED CALCIUM 0.99 mmol/l (1.12-1.32)
[2017-01-10 16:06] LABS: INR 1.9 (0.9-1.1); PARTIAL THROMBOPLASTIN RATIO 1.3; PROTHROMBIN TIME (PATIENT) 20.9 SECONDS (9.0-12.0)
--- NOTE | 2017-01-10 16:17 | DIAGNOSTIC IMAGING REPORT ---
CT OF THE HEAD WITHOUT CONTRAST CLINICAL HISTORY: Weakness. Syncope. COMPARISON STUDY: Head CT September 24, 2016. TECHNIQUE: Helical axial images of the head were obtained without IV contrast. Automated exposure control was utilized for the study. A dose lowering technique was utilized adhering to the principles of ALARA. FINDINGS: No acute intracranial hemorrhage, midline shift or mass effect is present. Ventricular system is stable. Basilar cisterns are patent. There are no extra-axial collections. An old right frontoparietal infarct is unchanged. White matter hypodensity suggests small vessel disease. There are no findings to suggest acute dural sinus thrombosis or acute territorial infarct. A small old left frontal lobe infarct is noted. There is no calvarial fracture. IMPRESSION: No acute intracranial findings. No significant change since previous exam. Electronically signed by: Torsten Dorsey M.D. 01/10/2017 4:16 PM Dictated Date/Time: 01/10/2017 4:13 PM
--- NOTE | 2017-01-10 16:23 | DIAGNOSTIC IMAGING REPORT ---
ABD/PELVIS NO IV OR ORAL CONT CLINICAL HISTORY: 81 years-old Male presenting with diffuse abd pain . TECHNIQUE: Multidetector CT of the abdomen and pelvis was performed without the use of intravenous contrast. IV contrast: None. A dose lowering technique was used consistent with the principles of ALARA (as low as reasonably achievable). COMPARISON: 02/02/2013. CT DOSE (mGy.cm): The estimated cumulative dose is 1295.93 mGy.cm. FINDINGS: Blade Sharpener topogram: Postsurgical changes of total right hip arthroplasty. Partially visualized leads for an implanted cardiac defibrillator. Lung bases: Bilateral gynecomastia. Minimal dependent changes likely atelectasis. Stable 4 mm solid right pulmonary nodule. Multichamber enlargement of the heart. Leads to the coronary sinus and right ventricular apex noted. No pericardial or pleural effusion. Liver: Nodular contour of the liver suggesting cirrhosis. Normal density. Biliary: Pneumobilia, chronic. Mild prominence of intrahepatic bile ducts, unchanged. Mild wall thickening of the bile ducts suggested. Postsurgical changes of hepatic or jejunostomy, suboptimally evaluated without intravenous or oral contrast. Gallbladder surgically absent. Pancreas: Severe atrophy of residual pancreatic tail parenchyma. Postsurgical changes of pancreaticojejunostomy, suboptimally evaluated. Spleen: Normal noncontrast appearance. Splenule noted. Adrenal glands: Normal noncontrast appearance. Kidneys and ureters: Hypodensities in the left kidney, indeterminate but likely cysts. Punctate nonobstructing calculus at the right upper pole. Cortical atrophy suggested bilaterally. No hydronephrosis. Ureters normal, allowing for suboptimal evaluation of the ureterovesical junction secondary to streak artifact. Bladder: Suboptimal evaluated secondary to streak artifact. Mild circumferential bladder wall thickening suggested. Pelvic organs: Prostate enlargement likely secondary to benign prostatic hyperplasia. Prostate is suboptimally evaluated. Bowel: Diverticulosis of the ascending colon. No pericolonic fat stranding. No bowel obstruction. Postsurgical changes of distal gastrectomy with antecolic gastrojejunostomy. Peritoneal cavity: No free fluid or intraperitoneal gas. Lymph nodes: No gross lymphadenopathy allowing for noncontrast technique. Vasculature: Atherosclerosis of the normal caliber abdominal aorta. Atherosclerosis of the origins of the renal arteries. Abdominal wall: Postsurgical changes along the right anterior abdominal wall. Musculoskeletal: Total right hip arthroplasty without gross evidence of hardware complication allowing for extensive regional streak artifact. Degenerative changes of the spine, sacroiliac joints, and pubic symphysis area IMPRESSION: 1. Postsurgical changes of Whipple procedure without evidence of complication. No bowel obstruction. 2. The presence of biliary wall thickening is suggested, which is chronic and expected in the setting of a hepaticojejunostomy. Correlate clinically to exclude acute cholangitis. 3. Mild bladder wall thickening could suggest cystitis or chronic outlet obstruction. Correlate with urinalysis. Electronically signed by: Duong Weldon M.D. 01/10/2017 4:22 PM Dictated Date/Time: 01/10/2017 4:14 PM
[2017-01-10 16:36] LABS: ALKALINE PHOSPHATASE 135 U/L (45-117); ALT/SGPT 271 U/L (12-78); AST/SGOT 281 U/L (15-37); BLOOD UREA NITROGEN 111 mg/dl (7-18); CALCIUM 8.9 mg/dl (8.5-10.1); CARBON DIOXIDE 35 mmol/L (21-32); CHLORIDE 84 mmol/L (98-107); GLUCOSE 180 mg/dl (70-99); MAGNESIUM 3.2 mg/dl (1.8-2.4); SODIUM 133 mmol/L (136-145)
[2017-01-10] MEDS ORDERED: POTASSIUM CHLORIDE 10 MEQ / 100ML WTR IV STA (17:00)
--- NOTE | 2017-01-10 17:08 | DIAGNOSTIC IMAGING REPORT ---
THORACIC SPINE 3 VIEWS ROUTINE CLINICAL HISTORY: 81 years-old Male presenting with fall mid back pain . TECHNIQUE: 3 views of the thoracic spine were obtained. COMPARISON: CT performed earlier the same day. FINDINGS: No scoliosis. Normal thoracic kyphosis. Vertebral bodies maintain normal height and alignment. Intervertebral disc spaces preserved. Mild multilevel degenerative changes in the lower cervical spine and lower thoracic spine noted. No radiographic evidence of acute fracture or subluxation. Postsurgical changes in the cervical spine of laminectomies suggested. Mild osteopenia. Partially visualized implanted cardiac defibrillator with leads to the coronary sinus and right ventricular apex. Atherosclerosis of aortic arch. IMPRESSION: Mild multilevel degenerative changes. No radiographic evidence of acute or osseous injury of the thoracic spine. Electronically signed by: Duong Weldon M.D. 01/10/2017 5:07 PM Dictated Date/Time: 01/10/2017 5:05 PM
[2017-01-10] MEDS ORDERED: POLY335019 PO (17:14)
[2017-01-10] MEDS ORDERED: CLC100X PO (17:14)
[2017-01-10] MEDS ORDERED: ACETAMINOPHEN 325 MG TAB PO PRN (18:30)
[2017-01-10] MEDS ORDERED: ONDANSETRON INJ 2 MG/ML 2 ML VIAL IV PRN (18:30)
[2017-01-10] MEDS ORDERED: POTASSIUM CHLORIDE 10 MEQ TABCR PO ONE ×2 (19:00→23:45)
[2017-01-10] MEDS ORDERED: SODIUM CHLORIDE 0.9% 1000ML 1,000 ML IV SCH (19:15)
[2017-01-10 19:21] VITALS: BP 108/64; PULSE 76; TEMP 36.7; O2SAT 98; Ht 165.1 cm; Wt 80.3 kg
[2017-01-10] MEDS ORDERED: PRVHFAIN INH (19:25)
[2017-01-10] MEDS ORDERED: CHOL100010 PO (19:25)
[2017-01-10] MEDS ORDERED: GLUCOSE 40% GEL 15 GM TUBE PO PRN (19:45)
[2017-01-10] MEDS ORDERED: GLUCOSE 10 TABS/TUBE PO PRN (19:45)
[2017-01-10] MEDS ORDERED: DEXTROSE 50% 50 ML SYR IV PRN (19:45)
[2017-01-10] MEDS ORDERED: GLUCAGON FOR INJ 1 MG VIAL SQ PRN (19:45)
[2017-01-10] MEDS ORDERED: ZLF50 PO (19:53)
[2017-01-10] MEDS ORDERED: MULT-845 PO (19:53)
[2017-01-10] MEDS ORDERED: MCRK/10 PO (19:53)
[2017-01-10] MEDS ORDERED: OXYC1CAP5 PO (19:53)
[2017-01-10] MEDS ORDERED: LEVA45AE INH (19:53)
[2017-01-10 19:57] VITALS: BP 107/63; PULSE 75; TEMP 36.4; O2SAT 97
[2017-01-10] MEDS ORDERED: OXYCODONE HCL IR 5 MG TAB (IMMEDIATE RELEASE) PO PRN (20:00)
[2017-01-10] MEDS ORDERED: LEValbuterol HFA 15GM INHALER INH PRN (20:00)
[2017-01-10] MEDS ORDERED: WARFARIN SOD 3 MG TAB PO SCH (20:00)
--- NOTE | 2017-01-10 20:27 | DIAGNOSTIC IMAGING REPORT ---
CERVICAL SPINE 2 OR 3 VIEWS CLINICAL HISTORY: 81 years-old Male presenting with neck pain s/p fall . TECHNIQUE: Lateral, frontal, and open-mouth odontoid views of the cervical spine were obtained. COMPARISON: CT from 03/08/2016. FINDINGS: Normal cervical lordosis. Vertebral body heights and alignment maintained. Intervertebral disc height loss noted from C3-4 through C6-7. Postsurgical changes of laminectomies from C4 through C7. No radiographic evidence of subluxation or fracture. Lateral masses of C1 articulate normally with C2. IMPRESSION: No radiographic evidence of acute osseous injury. Degenerative and postsurgical changes similar to prior CT from 03/08/2016. If there is continuing clinical concern for injury, cross-sectional imaging should be obtained. Electronically signed by: Duong Weldon M.D. 01/10/2017 8:26 PM Dictated Date/Time: 01/10/2017 8:23 PM
--- NOTE | 2017-01-10 20:48 | History and Physical ---
History & Physical Date & Time of Service: Jan 10, 2017 at 18:25 Chief Complaint: Syncope Primary Care Physician: Jadiel Ferrer M.D. History of Present Illness Source: patient, clinic records, hospital records This is an 81 y/o male with PMH of CAD s/p stents in 2005, chronic systolic CHF , EF 30-35% in 08/2016, Afib on Coumadin, h/o bradycardia s/p pacemaker, CKD stage IV requiring short term dialysis in the past, hx of CVA with residual LUE weakness, HTN, COPD, pancreatic CA s/p surgery, DM type 2 who presents to the ER with falls. Pt reports 2 falls at home over past 24 hours. States he became lightheaded then fell in bathroom and bedroom, and hit his head and neck. Admits to LOC, unclear duration. Pt's girlfriend helped him up. He reports right cervical and thoracic area pain after the fall. Had eye pain which resolved. Denies headache or acute vision change. Occasionally has palpitations , but denies relation to syncopal episodes. Pt reports feeling ill for past 1 week, started with N/V which resolved, generalized weakness, poor PO intake, weight loss 180 ->160 lb over 1-2 months, low abdominal pain- resolved. Pt reports chronic swallowing difficulty to solids. No diarrhea. Had BM in ER, voided at the same time, UA could not be obtained. Ruff placement was attempted twice in ER without success. He admits to dysuria, unclear duration. He reports chronic nocturia every hour, chronic difficulty voiding while standing, but can pass urine when seated without issues. Denies flank pain, hematuria, or decreased urine output. States he chronically feels cold. No fever. Has chronic occasional dry cough. Denies chest pain or SOB. Denies NSAID use. Past Medical/Surgical History Medical Problems: (1) Afib Status: Chronic (2) BPH (benign prostatic hyperplasia) Status: Chronic (3) CAD (coronary artery disease) Status: Chronic (4) CHF (congestive heart failure) Status: Chronic (5) CKD (chronic kidney disease), stage III Status: Chronic (6) COPD (chronic obstructive pulmonary disease) Status: Chronic (7) Current use of mcc anticoagulation Status: Chronic (8) CVA (cerebral vascular accident) Status: Chronic (9) Depression Status: Chronic (10) DM2 (diabetes mellitus, type 2) Status: Chronic (11) GERD (gastroesophageal reflux disease) Status: Chronic (12) HLD (hyperlipidemia) Status: Chronic (13) HTN (hypertension) Status: Chronic (14) Pancreatic cancer Permanent Comment: Geoippdnoi 02/04 s/p neoadjuvant chemoradiotherapy 2005 Jason Urena MD Status: Chronic (15) Pancreatic insufficiency Status: Chronic Surgical Problems: (1) H/O cervical spine surgery Status: Chronic (2) H/O hernia repair Status: Chronic (3) H/O percutaneous transluminal coronary angioplasty Status: Resolved (4) History of cardiac cath Permanent Comment: with stent placement Status: Chronic (5) History of hip replacement Status: Chronic (6) S/P cholecystectomy Status: Chronic (7) S/P hip replacement Status: Chronic (8) Stented coronary artery Status: Chronic Family History Diabetes mellitus FH: cancer FH: gallbladder disease Heart disease Hypertension Kidney disease Lung disease Social History Smoking Status: Former Smoker Alcohol Use: none Marital Status: in relationship Housing status: lives with significant other (with girlfriend) Occupational Status: retired Immunizations History of Influenza Vaccine: Yes Influenza Vaccine Date: Jan 19, 2015 History of Tetanus Vaccine?: Unknown History of Pneumococcal: Yes Pneumococcal Date: Dec 21, 2010 History of Hepatitis B Vaccine: Unknown Multi-Drug Resistant Organisms History of MDRO: No Allergies Coded Allergies: Lisinopril (Verified Allergy, Unknown, RASH, 01/10/17) Spironolactone (Verified Allergy, Unknown, unkn, 01/10/17) Zolpidem (Verified Adverse Reaction, Unknown, HALLUCINATIONS, 06/24/15) Home Medications Scheduled Amiodarone HCl (Amiodarone HCl), 200 MG PO BID Ascorbic Acid (Ascorbic Acid), 1,000 MG PO DAILY Atorvastatin (Lipitor), 10 MG PO DAILY Calcitriol (Rocaltrol Cap), 0.25 MCG PO MWF Cholecalciferol (Vitamin D), 1,000 UNITS PO DAILY Clopidogrel Bisulfate (Plavix), 75 MG PO DAILY Finasteride (Proscar), 1 TAB PO DAILY Fluticasone Furoate-Vilanterol (Breo Ellipta), 1 PUFF INH DAILY Fluticasone Propionate (Nasal) (Flonase Allergy Relief), 2 SPRAY RICHA DAILY Furosemide (Furosemide), 160 MG PO BID Insulin Aspart 70/30 (Novolog Mix 70/30), 28 SC am Insulin Aspart 70/30 (Novolog Mix 70/30), 12 SC PM Lansoprazole (Prevacid), 30 MG PO DAILY Metoprolol Succ (Toprol Xl) (Toprol-Xl), 1 TAB PO DAILY Multiple Vitamins W/ Minerals (Centrum Silver Adult 50+), 1 TAB PO DAILY Pancrelipase (Lipase-Protease- (Creon 27536), 0 PO UD Potassium Chloride (K-Tabs), 10 MEQ PO DAILY Sennosides-Docusate Sodium (Senexon-S), 1 TAB PO DAILY Sertraline HCl (Sertraline HCl), 1 TAB PO DAILY Tamsulosin Hcl (Flomax), 0.4 MG PO DAILY Warfarin Sod (Coumadin), 1.5 MG PO UD Warfarin Sod (Coumadin), 3 MG PO UD Scheduled PRN Levalbuterol Tartrate (Levalbuterol Tartrate Hfa), 2 PUFFS INH Q4H PRN for SOB, cough, wheezing Oxycodone Hcl (Oxycodone Hcl), 1 CAP PO Q6 PRN for Pain Miscellaneous Medications Albuterol (Ventolin Hfa), Unknown Dose INH Review of Systems Ten systems reviewed and negative except as noted in HPI. Physical Exam Vital Signs Date Time Temp Pulse Resp B/P (MAP) Pulse Ox O2 Delivery O2 Flow Rate FiO2 01/10/17 17:00 70 115/68 100 Nasal Cannula 4.0 01/10/17 16:28 87 Room Air 01/10/17 16:26 90 Nasal Cannula 4.0 01/10/17 16:19 98 Room Air 01/10/17 16:16 75 119/93 95 Room Air 01/10/17 15:37 77 91/57 98 Room Air 01/10/17 15:32 98 Room Air 01/10/17 15:29 86 General Appearance: WD/WN, no apparent distress, + pertinent finding (alert elderly male, lying in bed, not in distress) Head: normocephalic, atraumatic Eyes: normal inspection, PERRL, EOMI, sclerae normal ENT: hearing grossly normal, pharynx normal, + pertinent finding (dry oral mucosa) Neck: supple, trachea midline, + pertinent finding (right cervical paraspinal muscle tenderness. mild pain with neck ROM. ) Respiratory/Chest: lungs clear, normal breath sounds, no respiratory distress, no accessory muscle use Cardiovascular: regular rate, rhythm, no murmur Abdomen/GI: normal bowel sounds, non tender, soft Back: no CVA tenderness, + pertinent finding (right paraspinal muscle tenderness) Extremities/Musculoskelatal: no calf tenderness, no pedal edema Neurologic/Psych: alert, normal mood/affect, oriented x 3, + pertinent finding (no facial droop. no dysarthria. motor 5/5 all extremities) Skin: normal color, warm/dry, + pertinent finding (poor skin turgor) Diagnostics Laboratory Results Results Past 24 Hours Test 01/10/17 15:20 01/10/17 15:50 Range/Units White Blood Count 10.59 4.8-10.8 K/uL Red Blood Count 5.41 4.7-6.1 M/uL Hemoglobin 15.9 14.0-18.0 g/dL Hematocrit 47.4 42-52 % Mean Corpuscular Volume 87.6 80-100 fL Mean Corpuscular Hemoglobin 29.4 25-34 pg Mean Corpuscular Hemoglobin Concent 33.5 32-36 g/dl Platelet Count 246 130-400 K/uL Mean Platelet Volume 9.9 7.4-10.4 fL Neutrophils (%) (Auto) 71.9 % Lymphocytes (%) (Auto) 17.0 % Monocytes (%) (Auto) 8.9 % Eosinophils (%) (Auto) 1.3 % Basophils (%) (Auto) 0.5 % Neutrophils # (Auto) 7.62 1.4-6.5 K/uL Lymphocytes # (Auto) 1.80 1.2-3.4 K/uL Monocytes # (Auto) 0.94 0.11-0.59 K/uL Eosinophils # (Auto) 0.14 0-0.5 K/uL Basophils # (Auto) 0.05 0-0.2 K/uL RDW Standard Deviation 57.3 36.4-46.3 fL RDW Coefficient of Variation 17.9 11.5-14.5 % Immature Granulocyte % (Auto) 0.4 % Immature Granulocyte # (Auto) 0.04 0.00-0.02 K/uL Prothrombin Time 20.9 9.0-12.0 SECONDS Prothromb Time International Ratio 1.9 0.9-1.1 Activated Partial Thromboplast Time 33.3 21.0-31.0 SECONDS Partial Thromboplastin Ratio 1.3 Sodium Level 133 136-145 mmol/L Potassium Level 3.0 3.5-5.1 mmol/L Chloride Level 84 98-107 mmol/L Carbon Dioxide Level 35 21-32 mmol/L Anion Gap 14.0 16.0 16-25 mmol/L Blood Urea Nitrogen 111 7-18 mg/dl Creatinine 5.30 0.60-1.40 mg/dl Est Creatinine Clear Calc Drug Dose 10.4 ml/min Estimated GFR () 10.8 Estimated GFR (Non- 9.3 BUN/Creatinine Ratio 21.0 10-20 Random Glucose 180 70-99 mg/dl Calcium Level 8.9 8.5-10.1 mg/dl Magnesium Level 3.2 1.8-2.4 mg/dl Total Bilirubin 0.6 0.2-1 mg/dl Direct Bilirubin 0-0.2 mg/dl Aspartate Amino Transf (AST/SGOT) 281 15-37 U/L Alanine Aminotransferase (ALT/SGPT) 271 12-78 U/L Alkaline Phosphatase 135 45-117 U/L Troponin I 0.617 0-0.045 ng/ml Total Protein 7.8 6.4-8.2 gm/dl Albumin 3.6 3.4-5.0 gm/dl Lipase 95 73-393 U/L Thyroid Stimulating Hormone (TSH) 1.470 0.300-4.500 uIu/ml Chemistry Specimen Hemolysis Bedside Hemoglobin 17.3 14.0-18.0 g/dl Bedside Hematocrit 51 42-52 % Bedside Sodium 133 135-144 mEq/L Bedside Potassium 2.8 3.3-5.0 mEq/L Bedside Chloride 84 101-112 mEq/L Bedside Total CO2 37 24-31 mEq/l Bedside Blood Urea Nitrogen 104 7-18 mg/dl Bedside Creatinine 5.1 0.6-1.3 mg/dl Bedside Glucose (other) 184 70-99 mg/dl Bedside Ionized Calcium (Larry) 0.99 1.12-1.32 mmol/l Diagnostic Radiology CT OF THE HEAD WITHOUT CONTRAST CLINICAL HISTORY: Weakness. Syncope. COMPARISON STUDY: Head CT September 24, 2016. TECHNIQUE: Helical axial images of the head were obtained without IV contrast. Automated exposure control was utilized for the study. A dose lowering technique was utilized adhering to the principles of ALARA. FINDINGS: No acute intracranial hemorrhage, midline shift or mass effect is present. Ventricular system is stable. Basilar cisterns are patent. There are no extra-axial collections. An old right frontoparietal infarct is unchanged. White matter hypodensity suggests small vessel disease. There are no findings to suggest acute dural sinus thrombosis or acute territorial infarct. A small old left frontal lobe infarct is noted. There is no calvarial fracture. IMPRESSION: No acute intracranial findings. No significant change since previous exam. CHEST ONE VIEW PORTABLE CLINICAL HISTORY: Weakness COMPARISON STUDY: 09/24/2016 FINDINGS: The heart remains enlarged. There is a left subclavian pacer/defibrillator present. There is no failure. There is no lobar consolidation. There are no pleural effusions. There are minor basilar atelectatic changes.[ IMPRESSION: Cardiomegaly. No active disease in the chest. * THORACIC SPINE 3 VIEWS ROUTINE CLINICAL HISTORY: 81 years-old Male presenting with fall mid back pain . TECHNIQUE: 3 views of the thoracic spine were obtained. COMPARISON: CT performed earlier the same day. FINDINGS: No scoliosis. Normal thoracic kyphosis. Vertebral bodies maintain normal height and alignment. Intervertebral disc spaces preserved. Mild multilevel degenerative changes in the lower cervical spine and lower thoracic spine noted. No radiographic evidence of acute fracture or subluxation. Postsurgical changes in the cervical spine of laminectomies suggested. Mild osteopenia. Partially visualized implanted cardiac defibrillator with leads to the coronary sinus and right ventricular apex. Atherosclerosis of aortic arch. IMPRESSION: Mild multilevel degenerative changes. No radiographic evidence of acute or osseous injury of the thoracic spine. ABD/PELVIS NO IV OR ORAL CONT IMPRESSION: 1. Postsurgical changes of Whipple procedure without evidence of complication. No bowel obstruction. 2. The presence of biliary wall thickening is suggested, which is chronic and expected in the setting of a hepaticojejunostomy. Correlate clinically to exclude acute cholangitis. 3. Mild bladder wall thickening could suggest cystitis or chronic outlet obstruction. Correlate with urinalysis. CERVICAL SPINE 2 OR 3 VIEWS IMPRESSION: No radiographic evidence of acute osseous injury. Degenerative and postsurgical changes similar to prior CT from 03/08/2016. If there is continuing clinical concern for injury, cross-sectional imaging should be obtained. EKG ventricular paced rhythm, 82 bpm Impression Assessment and Plan S/P FALLS, POSSIBLE SYNCOPE Possibly due to orthostasis in setting of dehydration from recent ?viral GI illness, had intermittent borderline low BP's in ER, clinically dry Check orthostatic VS Pacemaker interrogation unremarkable as per ER provider Monitor for arrhythmia in telemetry CT head negative X-ray of T-spine shows degenerative changes but no fracture, check x-ray C-spine - degenerative changes ACUTE RENAL FAILURE ON CKD STAGE IV Creatinine is 5.3, baseline in 2's (2.4 in 10/2016) Likely secondary to dehydration Check UA and urine culture 1 liter NSS given in ER. Will give additional 1 liter at 100 mL/hour then reassess Consult nephro (follows with Dr. Sifuentes) Speedy attempted unsuccessfully x 2 in ER, but producing urine (? amount, was mixed with stool in ER) Check CPK to assess for rhabdomyolysis as cause of JOSUÉ Pt states he does not want dialysis again MILDLY ELEVATED TROPONIN Denies chest pain May be secondary to renal failure EKG shows paced rhythm Trend serial cardiac enzymes HYPOXIA EPISODE Unclear etiology, CXR-no acute findings Continue supplemental O2 per protocol HYPOKALEMIA K+ is 3, magnesium 3.2 10 meq IV K+ given in ER, will give additional 20 meq PO and recheck PRP in am TRANSAMINITIS AST, ALT, Alk phos acutely elevated, ? secondary to muscle injury from fall Bilirubin WNL, abdominal exam benign Recheck LFT's in am CHRONIC SYSTOLIC CHF, EF 30-35% Hypovolemic Hold Lasix S/p 1 liter IVF in ER, will give another 1 liter at 100 mL/hour Monitor volume status DYSPHAGIA Reports chronic swallowing difficulty to solids Speech therapy consulted Aspiration precautions WEIGHT LOSS Has 13 lb weight loss since 10/2016 on Epic trend Possibly secondary to recent N/V illness ?viral gastroenteritis with poor PO intake Consider lead janitor consult DM TYPE 2 Hold home Novolog 70/30 Monitor BSG AC HS Insulin aspart sliding scale CORONARY ARTERY DISEASE S/P STENTS Cath in 2012 showed patent stents per cardiology note No anginal symptoms Continue Plavix and beta mansi ATRIAL FIBRILLATION Rate is controlled Continue amiodarone and metoprolol INR is 1.9; continue Coumadin and monitor INR SYMPTOMATIC BRADYCARDIA S/p pacemaker HX HYPERTENSION BP borderline low Continue metoprolol with usual parameters HISTORY PANCREATIC CA S/p Whipple, chemo, radiation in 2005 Continue pancreatic enzymes BPH, HX URINARY RETENTION Continue tamsulosin and finasteride Follows with Dr. Cruz for urology GERD Continue PPI VTE PROPHYLAXIS On Coumadin DISPOSITION Admit to telemetry Follows with Dr. Ferrer for primary care CODE STATUS Full code per my discussion with the patient. Has living will. Does not want prolonged life support >3 days per patient. Patient seen in collaboration with Dr. Davis. Please see his addendum. Resuscitation Status FULL RESUSCITATION VTE Prophylaxis VTE Risk Assessment Done? Y/N: Yes Risk Level: High Given or contraindicated: Warfarin (Coumadin) Note ATTENDING ADDENDUM Record reviewed. Patient interviewed and examined in his room. Care coordinated with Meenakshi Rosen PA-C. Please refer to her documentation for patient's history. Briefly, 81 YO male w history of CAD, AF, hypertension, CKD, DM, pancreatic Ca s /p Whipple, and other problems. Experiencing progressive dysphagia to solids with associated 20 lb weight loss. Syncopal episode today. EXAM: General- appears to be chronically-ill, no acute distress VS- as noted HEENT- anicteric Neck- [] Lungs- clear Heart- Abdomen- [] Extremities- [] Neuro- [] DATA: Na 133, K 3.0, Cl 84, CO2 35, BUN 111, creatinine 5.3. Trop 0.617. WBC 10,590. Other lab studies as noted. CXR- cardiomegaly, no active disease. X-rays cervical and thoracic spine- degenerative disease. CT head- old frontoparietal infarct, no hemorrhage or other acute findings. CT abdomen & pelvis- postsurgical findings from Whipple, no apparent recurrent disease, mild thickening of urinary bladder. EKG performed at 15:29 reviewed and demonstrated ventricular paced rhythm at 80 / minute, repolarization abnormalities.. . ASSESSMENT AND PLAN: JOSUÉ / CKD IV No apparent urinary tract infection per CT. Poor oral intake secondary to dysphagia. IV fluids. Consult Nephrology. SYNCOPE Most likely secondary to orthostasis from volume depletion. Monitor for arrhythmias. SEVERE HYPOKALEMIA Replace / follow. DYSPHAGIA Progressive dysphagia to solids associated with ~ 10 kg weight loss. Consult GI. ELEVATED TROPONIN Troponin 0.634. No chest pain. EKG shows paced rhythm. Suspect nonspecific elevation secondary to renal disease. Check serial troponins with CPK's. Follow. CHF Chronic left ventricular systolic heart failure with LVEF 30-35%. No BRANDON or ARB due to CKD. Continue metoprolol succinate. Check f/u chest x-ray after fluid resuscitation. Please refer to J LUIS Rosen's documentation for discussion of other issues. Bernardino Davis MD .
[2017-01-10 21:25] LABS: URINE APPEARANCE CLEAR (CLEAR); URINE BILIRUBIN NEG (NEG); URINE COLOR YELLOW; URINE NITRITE NEG (NEG); URINE SPECIFIC GRAVITY 1.013 (1.000-1.030); UROBILINOGEN NEG (NEG)
[2017-01-10 21:26] LABS: MANUAL MICROSCOPIC REQUIRED? NO; REVIEW REQ? NO
--- NOTE | 2017-01-10 22:14 | EMERGENCY ROOM VISIT NOTE ---
History Report prepared by Masoud: Talat Warner Under the Supervision of: Dr. Zeb Ferreira D.O. First contact with patient: 15:26 Stated Complaint: SYNCOPE History of Present Illness The patient is a 81 year old male who presents to the Emergency Room with complaints of 2 episodes of syncope that began last night and early this morning. With both of these episodes, he became very dizzy and lightheaded, passed out, and hit his head. He currently has neck pain and head pain as well. This morning, he had 1 hour of left sided pressure chest pain. Associated with this, he had some neck pain with shortness of breath. He does not currently have chest pain. He denies any jaw or arm pain. He has some left shoulder pain and some upper back pain secondary to his fall. He notes that over this past week he has not been feeling well. He gets dizzy with changing positions, feels more weak, and is having pain with urination. He has some numbness to his fingers as well. He denies any abdominal pain, nausea, vomiting, diarrhea, leg pain, or hip pain. His last bowel movement was this morning and was normal. He is on Plavix and Coumadin. Source of History: patient Onset: yesterday Position: other (global) Symptom Intensity: 2 episodes Quality: other (Syncope) Timing: resolved Associated Symptoms: + headache, + neck pain, + SOB, + back pain, + urinary symptoms, + weakness, + numbness, No chest pain, No nausea, No vomiting, No abdominal pain, No melena, No hematochezia, No diarrhea Note: He is experiencing dizziness and lightheadedness with changing positions. Review of Systems See HPI for pertinent positives & negatives. A total of 10 systems reviewed and were otherwise negative. Past Medical & Surgical Medical Problems: (1) Afib (2) ARF (acute renal failure) (3) BPH (benign prostatic hyperplasia) (4) CAD (coronary artery disease) (5) CHF (congestive heart failure) (6) CKD (chronic kidney disease), stage III (7) COPD (chronic obstructive pulmonary disease) (8) Current use of long term care social worker anticoagulation (9) CVA (cerebral vascular accident) (10) Depression (11) DM2 (diabetes mellitus, type 2) (12) GERD (gastroesophageal reflux disease) (13) HLD (hyperlipidemia) (14) HTN (hypertension) (15) Pancreatic cancer (16) Pancreatic insufficiency (17) Pseudomonas septicemia (18) Syncope and collapse (19) Volume overload Surgical Problems: (1) H/O cervical spine surgery (2) H/O hernia repair (3) H/O percutaneous transluminal coronary angioplasty (4) History of cardiac cath (5) History of hip replacement (6) S/P cholecystectomy (7) S/P hip replacement (8) Stented coronary artery Family History Diabetes mellitus FH: cancer FH: gallbladder disease Heart disease Hypertension Kidney disease Lung disease Social History Smoking Status: Never Smoker Smokeless Tobacco Use: No Drug Use: none Marital Status: in relationship Housing Status: lives with family Occupation Status: retired Current/Historical Medications Scheduled Amiodarone HCl (Amiodarone HCl), 200 MG PO BID Ascorbic Acid (Ascorbic Acid), 1,000 MG PO DAILY Atorvastatin (Lipitor), 10 MG PO DAILY Calcitriol (Rocaltrol Cap), 0.25 MCG PO MWF Cholecalciferol (Vitamin D), 1,000 UNITS PO DAILY Clopidogrel Bisulfate (Plavix), 75 MG PO DAILY Finasteride (Proscar), 1 TAB PO DAILY Fluticasone Furoate-Vilanterol (Breo Ellipta), 1 PUFF INH DAILY Fluticasone Propionate (Nasal) (Flonase Allergy Relief), 2 SPRAY RICHA DAILY Furosemide (Furosemide), 160 MG PO BID Insulin Aspart 70/30 (Novolog Mix 70/30), 28 SC am Insulin Aspart 70/30 (Novolog Mix 70/30), 12 SC PM Lansoprazole (Prevacid), 30 MG PO DAILY Metoprolol Succ (Toprol Xl) (Toprol-Xl), 1 TAB PO DAILY Multiple Vitamins W/ Minerals (Centrum Silver Adult 50+), 1 TAB PO DAILY Pancrelipase (Lipase-Protease- (Creon [id number]), 0 PO UD Potassium Chloride (K-Tabs), 10 MEQ PO DAILY Sennosides-Docusate Sodium (Senexon-S), 1 TAB PO DAILY Sertraline HCl (Sertraline HCl), 1 TAB PO DAILY Tamsulosin Hcl (Flomax), 0.4 MG PO DAILY Warfarin Sod (Coumadin), 1.5 MG PO UD Warfarin Sod (Coumadin), 3 MG PO UD Scheduled PRN Levalbuterol Tartrate (Levalbuterol Tartrate Hfa), 2 PUFFS INH Q4H PRN for SOB, cough, wheezing Oxycodone Hcl (Oxycodone Hcl), 1 CAP PO Q6 PRN for Pain Miscellaneous Medications Albuterol (Ventolin Hfa), Unknown Dose INH Allergies Coded Allergies: Lisinopril (Verified Allergy, Unknown, RASH, 01/10/17) Spironolactone (Verified Allergy, Unknown, unkn, 01/10/17) Zolpidem (Verified Adverse Reaction, Unknown, HALLUCINATIONS, 06/24/15) Physical Exam Vital Signs Date Time Temp Pulse Resp B/P (MAP) Pulse Ox O2 Delivery O2 Flow Rate FiO2 01/10/17 18:01 121/65 01/10/17 17:31 115/70 01/10/17 17:22 70 15 99 01/10/17 17:01 115/68 01/10/17 17:00 70 115/68 100 Nasal Cannula 4.0 01/10/17 16:52 71 16 100 01/10/17 16:48 117/70 01/10/17 16:28 87 Room Air 01/10/17 16:26 90 Nasal Cannula 4.0 01/10/17 16:22 69 21 92 01/10/17 16:19 98 Room Air 01/10/17 16:16 75 119/93 95 Room Air 01/10/17 16:14 119/63 01/10/17 15:52 71 15 01/10/17 15:37 77 91/57 98 Room Air 01/10/17 15:32 98 Room Air 01/10/17 15:32 91/57 01/10/17 15:29 86 01/10/17 15:26 174/157 Physical Exam GENERAL: Sitting up in bed, ill appearing, alert, well nourished, no distress, non-toxic HEAD: NC AT. EYE EXAM: normal conjunctiva, PERRL and EOM's intact OROPHARYNX: no exudate, no erythema, lips, buccal mucosa, and tongue normal and mucous membranes are moist NECK: supple, no nuchal rigidity, no adenopathy, midline cervical tenderness to palpation LUNGS: Clear to auscultation. Normal chest wall mechanics HEART: no murmurs, S1 normal and S2 normal CHEST: Pacemaker located along the left chest wall. Stable to compression anteriorly and posteriorly. ABDOMEN: abdomen soft, non-tender, normo-active bowel sounds, no masses, no rebound or guarding. BACK: Back is symmetrical on inspection and there is no deformity, no midline tenderness, no CVA tenderness. PELVIS: Stable to compression anteriorly and posteriorly. SKIN: no rashes and no bruising UPPER EXTREMITIES: Full active and passive ROM without tenderness. LOWER EXTREMITIES: Full active and passive ROM without tenderness. No pitting edema. NEURO EXAM: GCS 15. Normal sensorium, cranial nerves II-XII intact, normal speech, no weakness of arms, no weakness of legs. Medical Decision & Procedures ER Provider Diagnostic Interpretation: Radiology results as stated below per my review and the radiologist's interpretation: CT OF THE HEAD WITHOUT CONTRAST CLINICAL HISTORY: Weakness. Syncope. COMPARISON STUDY: Head CT September 24, 2016. TECHNIQUE: Helical axial images of the head were obtained without IV contrast. Automated exposure control was utilized for the study. A dose lowering technique was utilized adhering to the principles of ALARA. FINDINGS: No acute intracranial hemorrhage, midline shift or mass effect is present. Ventricular system is stable. Basilar cisterns are patent. There are no extra-axial collections. An old right frontoparietal infarct is unchanged. White matter hypodensity suggests small vessel disease. There are no findings to suggest acute dural sinus thrombosis or acute territorial infarct. A small old left frontal lobe infarct is noted. There is no calvarial fracture. IMPRESSION: No acute intracranial findings. No significant change since previous exam. Electronically signed by: Torsten Dorsey M.D. 01/10/2017 4:16 PM Dictated Date/Time: 01/10/2017 4:13 PM CHEST ONE VIEW PORTABLE CLINICAL HISTORY: Weakness COMPARISON STUDY: 09/24/2016 FINDINGS: The heart remains enlarged. There is a left subclavian pacer/defibrillator present. There is no failure. There is no lobar consolidation. There are no pleural effusions. There are minor basilar atelectatic changes.[ IMPRESSION: Cardiomegaly. No active disease in the chest. Electronically signed by: Mohsen Dobbs M.D. 01/10/2017 3:56 PM Dictated Date/Time: 01/10/2017 3:53 PM THORACIC SPINE 3 VIEWS ROUTINE CLINICAL HISTORY: 81 years-old Male presenting with fall mid back pain . TECHNIQUE: 3 views of the thoracic spine were obtained. COMPARISON: CT performed earlier the same day. FINDINGS: No scoliosis. Normal thoracic kyphosis. Vertebral bodies maintain normal height and alignment. Intervertebral disc spaces preserved. Mild multilevel degenerative changes in the lower cervical spine and lower thoracic spine noted. No radiographic evidence of acute fracture or subluxation. Postsurgical changes in the cervical spine of laminectomies suggested. Mild osteopenia. Partially visualized implanted cardiac defibrillator with leads to the coronary sinus and right ventricular apex. Atherosclerosis of aortic arch. IMPRESSION: Mild multilevel degenerative changes. No radiographic evidence of acute or osseous injury of the thoracic spine. Electronically signed by: Duong Weldon M.D. 01/10/2017 5:07 PM Dictated Date/Time: 01/10/2017 5:05 PM ABD/PELVIS NO IV OR ORAL CONT CLINICAL HISTORY: 81 years-old Male presenting with diffuse abd pain . TECHNIQUE: Multidetector CT of the abdomen and pelvis was performed without the use of intravenous contrast. IV contrast: None. A dose lowering technique was used consistent with the principles of ALARA (as low as reasonably achievable). COMPARISON: 02/02/2013. CT DOSE (mGy.cm): The estimated cumulative dose is 1295.93 mGy.cm. FINDINGS: Funeral Director topogram: Postsurgical changes of total right hip arthroplasty. Partially visualized leads for an implanted cardiac defibrillator. Lung bases: Bilateral gynecomastia. Minimal dependent changes likely atelectasis. Stable 4 mm solid right pulmonary nodule. Multichamber enlargement of the heart. Leads to the coronary sinus and right ventricular apex noted. No pericardial or pleural effusion. Liver: Nodular contour of the liver suggesting cirrhosis. Normal density. Biliary: Pneumobilia, chronic. Mild prominence of intrahepatic bile ducts, unchanged. Mild wall thickening of the bile ducts suggested. Postsurgical changes of hepatic or jejunostomy, suboptimally evaluated without intravenous or oral contrast. Gallbladder surgically absent. Pancreas: Severe atrophy of residual pancreatic tail parenchyma. Postsurgical changes of pancreaticojejunostomy, suboptimally evaluated. Spleen: Normal noncontrast appearance. Splenule noted. Adrenal glands: Normal noncontrast appearance. Kidneys and ureters: Hypodensities in the left kidney, indeterminate but likely cysts. Punctate nonobstructing calculus at the right upper pole. Cortical atrophy suggested bilaterally. No hydronephrosis. Ureters normal, allowing for suboptimal evaluation of the ureterovesical junction secondary to streak artifact. Bladder: Suboptimal evaluated secondary to streak artifact. Mild circumferential bladder wall thickening suggested. Pelvic organs: Prostate enlargement likely secondary to benign prostatic hyperplasia. Prostate is suboptimally evaluated. Bowel: Diverticulosis of the ascending colon. No pericolonic fat stranding. No bowel obstruction. Postsurgical changes of distal gastrectomy with antecolic gastrojejunostomy. Peritoneal cavity: No free fluid or intraperitoneal gas. Lymph nodes: No gross lymphadenopathy allowing for noncontrast technique. Vasculature: Atherosclerosis of the normal caliber abdominal aorta. Atherosclerosis of the origins of the renal arteries. Abdominal wall: Postsurgical changes along the right anterior abdominal wall. Musculoskeletal: Total right hip arthroplasty without gross evidence of hardware complication allowing for extensive regional streak artifact. Degenerative changes of the spine, sacroiliac joints, and pubic symphysis area IMPRESSION: 1. Postsurgical changes of Whipple procedure without evidence of complication. No bowel obstruction. 2. The presence of biliary wall thickening is suggested, which is chronic and expected in the setting of a hepaticojejunostomy. Correlate clinically to exclude acute cholangitis. 3. Mild bladder wall thickening could suggest cystitis or chronic outlet obstruction. Correlate with urinalysis. Electronically signed by: Duong Weldon M.D. 01/10/2017 4:22 PM Dictated Date/Time: 01/10/2017 4:14 PM Laboratory Results 01/10/17 15:20 Red Blood Count 5.41, Mean Corpuscular Volume 87.6, Mean Corpuscular Hemoglobin 29.4, Mean Corpuscular Hemoglobin Concent 33.5, Mean Platelet Volume 9.9, Neutrophils (%) (Auto) 71.9, Lymphocytes (%) (Auto) 17.0, Monocytes (%) (Auto) 8.9, Eosinophils (%) (Auto) 1.3, Basophils (%) (Auto) 0.5, Neutrophils # (Auto) 7.62, Lymphocytes # (Auto) 1.80, Monocytes # (Auto) 0.94, Eosinophils # (Auto) 0.14, Basophils # (Auto) 0.05 01/10/17 15:20 Test 01/10/17 15:20 01/10/17 15:50 01/10/17 15:51 White Blood Count 10.59 K/uL (4.8-10.8) Red Blood Count 5.41 M/uL (4.7-6.1) Hemoglobin 15.9 g/dL (14.0-18.0) Hematocrit 47.4 % (42-52) Mean Corpuscular Volume 87.6 fL (80-100) Mean Corpuscular Hemoglobin 29.4 pg (25-34) Mean Corpuscular Hemoglobin Concent 33.5 g/dl (32-36) Platelet Count 246 K/uL (130-400) Mean Platelet Volume 9.9 fL (7.4-10.4) Neutrophils (%) (Auto) 71.9 % Lymphocytes (%) (Auto) 17.0 % Monocytes (%) (Auto) 8.9 % Eosinophils (%) (Auto) 1.3 % Basophils (%) (Auto) 0.5 % Neutrophils # (Auto) 7.62 K/uL (1.4-6.5) Lymphocytes # (Auto) 1.80 K/uL (1.2-3.4) Monocytes # (Auto) 0.94 K/uL (0.11-0.59) Eosinophils # (Auto) 0.14 K/uL (0-0.5) Basophils # (Auto) 0.05 K/uL (0-0.2) RDW Standard Deviation 57.3 fL (36.4-46.3) RDW Coefficient of Variation 17.9 % (11.5-14.5) Immature Granulocyte % (Auto) 0.4 % Immature Granulocyte # (Auto) 0.04 K/uL (0.00-0.02) Prothrombin Time 20.9 SECONDS (9.0-12.0) Prothromb Time International Ratio 1.9 (0.9-1.1) Activated Partial Thromboplast Time 33.3 SECONDS (21.0-31.0) Partial Thromboplastin Ratio 1.3 Est Creatinine Clear Calc Drug Dose 10.4 ml/min Estimated GFR () 10.8 Estimated GFR (Non- 9.3 BUN/Creatinine Ratio 21.0 (10-20) Calcium Level 8.9 mg/dl (8.5-10.1) Magnesium Level 3.2 mg/dl (1.8-2.4) Total Bilirubin 0.6 mg/dl (0.2-1) Direct Bilirubin mg/dl (0-0.2) Aspartate Amino Transf (AST/SGOT) 281 U/L (15-37) Alanine Aminotransferase (ALT/SGPT) 271 U/L (12-78) Alkaline Phosphatase 135 U/L (45-117) Total Protein 7.8 gm/dl (6.4-8.2) Albumin 3.6 gm/dl (3.4-5.0) Lipase 95 U/L (73-393) Thyroid Stimulating Hormone (TSH) 1.470 uIu/ml (0.300-4.500) Chemistry Specimen Hemolysis Bedside Hemoglobin 17.3 g/dl (14.0-18.0) Bedside Hematocrit 51 % (42-52) Bedside Sodium 133 mEq/L (135-144) Bedside Potassium 2.8 mEq/L (3.3-5.0) Bedside Chloride 84 mEq/L (101-112) Bedside Total CO2 37 mEq/l (24-31) Anion Gap 16.0 mmol/L (16-25) Bedside Blood Urea Nitrogen 104 mg/dl (7-18) Bedside Creatinine 5.1 mg/dl (0.6-1.3) Bedside Glucose (other) 184 mg/dl (70-99) Bedside Ionized Calcium (Larry) 0.99 mmol/l (1.12-1.32) Bedside Glucose 161 mg/dl (70-99) Laboratory results per my review. Medications Administered Medications (Trade) Dose Ordered Sig/Quoc Route Start Time Stop Time Status Last Admin Dose Admin Ondansetron HCl (Zofran Inj) 4 mg NOW STAT IV 01/10/17 15:40 01/10/17 15:42 DC 01/10/17 16:24 4 MG Sodium Chloride 1,000 ml @ 999 mls/hr Q1H1M STAT IV 01/10/17 15:40 01/10/17 16:40 DC 01/10/17 16:23 999 MLS/HR Potassium Chloride (Kcl 10 Meq / Wtr) 10 meq NOW STAT IV 01/10/17 17:00 01/10/17 17:01 DC 01/10/17 17:17 10 MEQ ECG Indication: syncope Rate (beats per minute): 82 Rhythm: other (Ventricular Paced) Findings: LBBB, other (Prolonged QTC) Comparison ECG Date: 25 September 2016 Change: no significant change ED Course ED COURSE: Vital signs were reviewed and showed hypotension. The patients medical record was reviewed The above diagnostic studies were performed and reviewed. ED treatments and interventions as stated above. 1526: The patient was evaluated in room A3. A complete history and physical examination was performed. 1540: Ordered Sodium Chloride 1000 ml @ 999 mls/hr IV, Zofran Inj 4 mg IV 1700: Ordered Potassium Chloride 10 meq IV 1731: Upon reevaluation, the patient is resting. I discussed my findings with the patient and he understands and agrees with the treatment plan. Based on the patients age, coexisting illnesses, exam and lab findings the decision to treat as an inpatient was made. The patient remained stable while under my care. The patient will be evaluated by Emily Alcazar, for further management. Medical Decision Differential diagnosis includes etiologies such as vasovagal event, infection, hypoglycemia, electrolyte abnormalities, cardiac sources, intracerebral event, toxicologic, neurologic, as well as others were entertained. Patient is an 80-year-old male who presents to ER for weakness and 2 episodes syncope. He did have some chest pressure this morning which has resolved. Labs were obtained. Patient was hypotensive initially. CBC was unremarkable. BMP shows a creatinine of 5.3 baseline of 2. Potassium was low at 3. AST and LT were elevated as well. INR was slightly felt therapeutic at 1.9. UA which resulted following admission did show UTI. Patient has clear acute kidney injury secondary to dehydration. Pacemaker was interrogated and no arrhythmias. Favor likely secondary to UTI. Patient was hydrated and admitted to internal medicine. Troponin was elevated although favor secondary to JOSUÉ. Head Trauma GCS Score: 15 Medication Reconcilliation Current Medication List: was personally reviewed by me Blood Pressure Screening Patient's blood pressure: Low blood pressure Referred to inpatient physician. Consults Time Called: [phone] Consulting Physician: Emily Alcazar Returned Call: [phone] I reviewed the patient's case with her. She will evaluate the patient for further management. Impression Primary Impression: Syncope Additional Impressions: JOSUÉ (acute kidney injury) Hypokalemia UTI (urinary tract infection) Scribe Attestation The scribe's documentation has been prepared under my direction and personally reviewed by me in its entirety. I confirm that the note above accurately reflects all work, treatment, procedures, and medical decision making performed by me. Departure Information Dispostion Being Evaluated By Hospitalist Referrals Jadiel Ferrer M.D. (PCP) Problem Qualifiers Primary Impression: Syncope Syncope type: unspecified Qualified Codes: R55 - Syncope and collapse Additional Impressions: UTI (urinary tract infection) Urinary tract infection type: acute cystitis Hematuria presence: with hematuria Qualified Codes: N30.01 - Acute cystitis with hematuria
[2017-01-10 22:38] LABS: POTASSIUM 2.4 mmol/L (3.5-5.1)
[2017-01-10 23:04] VITALS: BP 90/54; PULSE 70; TEMP 36.4; O2SAT 97
[2017-01-10] MEDS: AMIODARONE 200 MG TAB PO SCH ×2 (23:04→23:22)
[2017-01-10] MEDS ORDERED: SODIUM CHLORIDE 0.9% 500ML 500 ML IV SCH (23:15)
[2017-01-11] MEDS: POTASSIUM CHLR 10 MEQ / WTR 10 MEQ in PREMIXED WATER 100 ML IV SCH ×6 (00:13→10:40)
[2017-01-11 02:54] VITALS: BP_SYST 90; BP_SYST 95; BP_DIAS 52; BP_DIAS 55; BP_DIAS 60; PULSE 73; PULSE 78; PULSE 79; TEMP 36.4; O2SAT 98
[2017-01-11] MEDS ORDERED: PIPERACILL/TAZOBAC IV 3.375 GM in DEXTROSE 5% 100ML 100 ML IV ONE (03:30)
[2017-01-11] MEDS ORDERED: PIPERACILL/TAZOBAC CONSULT ACTIVE PRN (04:00)
--- NOTE | 2017-01-11 07:14 | Clinical Documentation Query ---
CLINICAL DOCUMENTATION QUERY 81 year old male who presents to the Emergency Room with complaints of 2 episodes of syncope. Per H&P patient has lost 13lbs since 10/2016. Per nursing admission assessment; weight 6 months ago 83.6, weight this admission 77.2, 8% loss in weight. In your clinical opinion is this patient being managed for: ( x ) Severe protein-calorie malnutrition m/b 8% loss in BW treated with GI consult, mech soft diet, daily weights, & nursing initiated dietary consult. ( ) Not Agree ( ) Other explanation of clinical findings (Please Explain) ( ) Unable to determine (Please Define) ( ) Need to Discuss The medical record reflects the following clinical findings, treatment, and risk factors. Clinical Indicators: As above. Treatment: GI consult, mech soft diet, daily weights, nursing initiated dietary consult. Risk Factors: Age, acute and chronic illness, pancreatic cancer. Please clarify and document your clinical opinion in the progress notes and discharge summary. Terms such as "probable", "suspected", "likely", "questionable", "possible", or "still to be ruled out" are acceptable. IF IN AGREEMENT, YOU MUST DOCUMENT ABOVE DIAGNOSTIC STATEMENT IN DAILY PROGRESS NOTES AND DISCHARGE SUMMARY. This document is not part of the patient's record. Malnutrition Characteristics (2 of 6) in Acute Illness/Injury CHARACTERISTICS MODERATE MALNUTRITION SEVERE MALNUTRITION ENERGY INTAKE <75% of estimated energyrequirement for >7 days <50% of estimated energyrequirement for >5 days WEIGHT LOSS 1-2%/1 week 5%/1 month 7.5%/3 months >1-2%/1 week >5%/1 month >7.5%/3 months BODY FAT*loss of SQ fat from the orbits,triceps, or fat overlying the ribs MILD MODERATE MUSCLE MASS*muscle wasting at the temples,clavicles, shoulders, interosseousspaces,scapula, thigh, calf MILD MODERATE FLUID ACCUMULATION*localized or generalized edemaof the extremities, vulva, scrotumweight loss may be masked byedema MILD MODERATE-SEVERE DIRECTOR OF TEACHER EDUCATION STRENGTH N/A measurably decreased perthe device's standards Malnutrition Characteristics (2 of 6) in Chronic Illness CHARACTERISTICS MODERATE MALNUTRITION SEVERE MALNUTRITION ENERGY INTAKE <75% of estimated energyrequirement for >1 month <75% of estimated energyrequirement for >1 month WEIGHT LOSS 5%/1 month 7.5%/3 months 10%/6 months 20%/1 year > 5%/1 month >7.5%/3 months >10%/6 months >20%/1 year BODY FAT*loss of SQ fat from the orbits,triceps, or fat overlying the ribs MILD SEVERE MUSCLE MASS*muscle wasting at the temples,clavicles, shoulders, interosseousspaces,scapula, thigh, calf MILD SEVERE FLUID ACCUMULATION*localized or generalized edemaof the extremities, vulva, scrotumweight loss may be masked byedema MILD SEVERE DIRECTOR OF TEACHER EDUCATION STRENGTH N/A measurably decreased perthe device's standards Thank You, Tee Vidal, RN [phone]
--- NOTE | 2017-01-11 07:36 | DIAGNOSTIC IMAGING REPORT ---
CHEST ONE VIEW PORTABLE CLINICAL HISTORY: CHF, acute kidney injury. COMPARISON STUDY: Chest radiograph January 10, 2017. FINDINGS: A biventricular left subclavian pacer/AICD is in place. There is no pneumothorax or pleural effusion. There is no evidence of pulmonary edema. Moderate cardiomegaly is unchanged. Mild bibasilar opacities favor atelectasis. IMPRESSION: 1. No acute cardiopulmonary findings. 2. Moderate cardiomegaly. Electronically signed by: Torsten Dorsey M.D. 01/11/2017 7:21 AM Dictated Date/Time: 01/11/2017 7:19 AM
[2017-01-11 07:38] VITALS: BP 101/63; PULSE 70; TEMP 36.3; O2SAT 98
[2017-01-11] MEDS: FLUTICASONE PROPIONATE NA SPR 16 GM BTL NAE SCH (07:42)
[2017-01-11] MEDS: TAMSULOSIN HCL 0.4 MG CAP PO SCH (07:43)
[2017-01-11] MEDS: AMIODARONE 200 MG TAB PO SCH ×2 (07:43→21:18)
[2017-01-11] MEDS: ATORVASTATIN 10 MG TAB PO SCH (07:43)
[2017-01-11] MEDS: CLOPIDOGREL BISULFATE 75 MG TAB PO SCH (07:44)
[2017-01-11] MEDS: FINASTERIDE 5 MG TAB PO SCH (07:44)
[2017-01-11] MEDS: LANSOPRAZOLE SOLUTAB 30 MG PO SCH (07:44)
[2017-01-11] MEDS: CEROVITE ADV FORMULA TAB PO SCH (07:44)
[2017-01-11] MEDS: DOCUSATE SODIUM/SENNA 50/8.6MG TAB PO SCH (07:45)
[2017-01-11] MEDS: METOPROLOL SUCC 25MG EXT REL TAB PO SCH (07:45)
[2017-01-11] MEDS: CALCITRIOL 0.25 MCG CAP PO SCH (07:45)
[2017-01-11] MEDS: ASCORBIC ACID 500 MG TAB PO SCH (07:45)
[2017-01-11] MEDS: CHOLECALCIFEROL 1000 INTER.UNIT TAB PO SCH (07:46)
[2017-01-11] MEDS: SERTRALINE HCL 50 MG TAB PO SCH (07:46)
[2017-01-11 07:47] LABS: HEMATOCRIT 38.4 % (42-52); MEAN CELL VOLUME 88.3 fL (80-100); MEAN CORPUSCULAR HEMOGLOBIN 30.1 pg (25-34); MEAN CORPUSCULAR HGB CONC 34.1 g/dl (32-36); MEAN PLATELET VOLUME 9.7 fL (7.4-10.4); PLATELET COUNT 194 K/uL (130-400); RED BLOOD COUNT 4.35 M/uL (4.7-6.1); WHITE BLOOD COUNT 7.29 K/uL (4.8-10.8)
[2017-01-11 07:54] LABS: INR 1.9 (0.9-1.1); PROTHROMBIN TIME (PATIENT) 21.4 SECONDS (9.0-12.0)
[2017-01-11] MEDS: INSULIN ASPART 100 UNITS/ML 3 ML PEN SC SCH ×5 (08:20→21:00)
--- NOTE | 2017-01-11 08:22 | Gastrointestinal Consultation ---
Gastrointestinal Consultation Date of Consultation: Jan 11, 2017 Attending Physician: Dr. Davis Consulting Physician: Dr. Butterfield Reason for Consultation: Weight loss, dysphagia History of Present Illness Patient is a 81 year old male patient of Dr. Ferrer with a hx of A-fib, CAD, CHF , CKD-4, COPD, CVA, DM-2, pancreatic cancer, S/P Whipple 2005, who was admitted on 01/10 for lightheadedness/falls. GI is consulted for dysphagia and weight loss. Though he has some difficulty remembering details, he seems oriented, able to tell me that this is 2016 and can't recall the month but knows it is 2 months until Joshua but unable to tell me who the [place] president is. He reports a 20 lbs weight loss in the past 2 months. He says that, about 2 months ago, he had a lot of nausea and vomiting and he did not seek medical attention at that time. Yesterday, he had some dry heaves. He has also had some lower abdomen that be believes began "a couple months ago." Regarding the difficulty swallowing, this was present about a year ago, then better for a while and began again a few weeks ago. It is intermittent. If feels like food gets stuck at the base of the throat. He occasionally coughs while trying to swallow. He also has a feeling of "something in there," a globus sensation when he is not eating/drinking. No specific food triggers. He denies any retrosternal burning or feeling of reflux. On arrival, he had hypokalemia at 3.0 and worsening of his renal function: Cr 5.2, up from 2.2. in September 2016. T w/o IV or oral contrast with suggestion of cirrhosis, pneumobilia S/P Whipple, diverticulosis of the ascending colon, mild bladder wall thickening suggesting cystitis or chronic outlet obstruction. Of note, EGD in [address] Israel for dysphagia did not show any esophageal or gastric remnant abnormalities. Past Medical/Surgical History Medical Problems: (1) Acute bronchitis Status: Acute (2) JOSUÉ (acute kidney injury) Status: Acute (3) Chronic renal disease Status: Acute (4) Elevated troponin Status: Acute (5) Hypokalemia Status: Acute (6) Influenza Status: Acute (7) Syncope Status: Acute (8) Systolic congestive heart failure Status: Acute (9) UTI (urinary tract infection) Status: Acute Past Medical History: 1. A-fib 2. BPH 3. CAD 4. CHF 5. CKD-4 6. CVA, residual LUE weakness 7 DM-2 8. GERD 9. Depression 10. Pancreatic cancer S/P Whipple Past Surgical History: 1. Whipple 2. Hernia repair 3. Percutaneous transluminal coronary angioplasty 4. Cardiac Cath, Coronary Stenting 5. Hip replacement 6. S/P cholecystectomy 7. Cervical spine laminectomies 8. Most recent EGD on 05/05/[address] Israel: edematous hypopharynx, GE junction with mild irregularity, normal esophageal motility, unremarkable gastric remnant; S/P prior gastroenterotomy with an unremarkable gastric remnant. Path with GE junction inflammation, no metaplasia or dysplasia. Family History Diabetes mellitus FH: cancer FH: gallbladder disease Heart disease Hypertension Kidney disease Lung disease Social History Smoking Status: Never Smoker Drug Use: none Marital Status: in relationship Housing Status: lives with family Occupation Status: retired Allergies Coded Allergies: Lisinopril (Verified Allergy, Unknown, RASH, 01/10/17) Spironolactone (Verified Allergy, Unknown, unkn, 01/10/17) Zolpidem (Verified Adverse Reaction, Unknown, HALLUCINATIONS, 06/24/15) Current Medications Home Meds and Scripts Medications Dose Route/Sig Max Daily Dose Days Date Category Dose Instructions Sertraline HCl 50 Mg Tab 1 Tab PO DAILY 30 01/10/17 Reported K-Tabs (Potassium Chloride) 10 Meq Tabcr 10 Meq PO DAILY 01/10/17 Reported Oxycodone Hcl 5 Mg Cap 1 Cap PO Q6 PRN 30 01/10/17 Reported May take 2 tablets for severe pain. Levalbuterol Tartrate Hfa (Levalbuterol Tartrate) 45 Mcg/Act Aer 2 Puffs INH Q4H PRN 01/10/17 Reported Centrum Silver Adult 50+ (Multiple Vitamins W/ Minerals) 1 Tab Tab 1 Tab PO DAILY 01/10/17 Reported Vitamin D (Cholecalciferol) 1,000 Unit Tab 1,000 Units PO DAILY 01/10/17 Reported Ventolin Hfa (Albuterol) Unknown Strength Aers Unknown Dose INH 01/10/17 Reported Coumadin (Warfarin Sod) 3 Mg Tab 3 Mg PO UD 09/24/16 Reported Take 3 mg by mouth on Saturday, Saturday, Saturday, Saturday, SATURDAY. Coumadin (Warfarin Sod) 3 Mg Tab 1.5 Mg PO UD 09/24/16 Reported Take 1.5 mg by mouth on Saturday, . Senexon-S (Sennosides-Docusate Sodium) 1 Tab Tab 1 Tab PO DAILY 09/24/16 Reported Prevacid (Lansoprazole) 30 Mg Capcr 30 Mg PO DAILY 09/24/16 Reported Ascorbic Acid 500 Mg Tab 1,000 Mg PO DAILY 09/24/16 Reported Furosemide 80 Mg Tab 160 Mg PO BID 09/24/16 Rx Amiodarone HCl 200 Mg Tab 200 Mg PO BID 09/24/16 Rx Toprol-Xl (Metoprolol Succinate) 50 Mg Tabcr 1 Tab PO DAILY 30 06/22/16 Reported Novolog Mix 70/30 (Insulin Aspart Prota 70%/Aspart 30%) Susp 12 SC PM 06/22/16 Reported Novolog Mix 70/30 (Insulin Aspart Prota 70%/Aspart 30%) Susp 28 SC AM 06/22/16 Reported Proscar (Finasteride) 5 Mg Tab 1 Tab PO DAILY 90 06/22/16 Reported Breo Ellipta (Fluticasone Furoate-Vilanterol) 1 Inh Inh 1 Puff INH DAILY 03/08/16 Reported Lipitor (Atorvastatin Calcium) 10 Mg Tab 10 Mg PO DAILY 03/08/16 Reported Flonase Allergy Relief (Fluticasone Propionate (Nasal)) 50 Mcg/Act Spr 2 [place] RICHA DAILY 03/08/16 Reported Rocaltrol Cap (Calcitriol) 0.25 Mcg Cap 0.25 Mcg PO MWF 05/28/15 Reported Creon 59151 (Pancrelipase (Lipase-Protease-) 1 Cap Cap 0 PO UD 11/24/14 Reported 2-3 capsules before each meal. 1 capsule before snacks. Plavix (Clopidogrel Bisulfate) 75 Mg Tab 75 Mg PO DAILY 02/02/13 Reported Flomax (Tamsulosin Hcl) 0.4 Mg Cap 0.4 Mg PO DAILY 08/22/12 Reported Review of Systems Constitutional: No fever, No chills, No sweats, No weight loss, No weakness Eyes: No eye pain, No redness ENT: No sore throat, No trouble swallowing, No pain on swallowing Respiratory: No cough, No wheezing, No shortness of breath, No dyspnea on exertion Cardiac: No chest pain, No edema, No palpitations Abdomen: + see HPI, + pain, + nausea, + vomiting Neuro: No memory loss, No weakness, No numbness/tingling, No vertigo, No balance problems Psych: No depression symptoms, No anxiety, No insomnia Heme: No abnormal bleeding/bruising, No night sweats Endo: No excessive thirst, No excessive urination Skin: No rash, No itch, No new/changing skin lesions, No jaundice Physical Exam Date Time Temp Pulse Resp B/P (MAP) Pulse Ox O2 Delivery O2 Flow Rate FiO2 01/11/17 07:38 36.3 70 16 101/63 (76) 98 Nasal Cannula 1.0 01/11/17 04:00 Nasal Cannula 2.0 01/11/17 02:54 36.4 78 20 95/55 (68) 98 Nasal Cannula 1.0 79 95/60 (72) 73 90/52 (65) 01/11/17 00:00 Nasal Cannula 2.0 01/10/17 23:04 36.4 70 16 90/54 (66) 97 Nasal Cannula 1.5 01/10/17 19:57 36.4 75 20 107/63 (78) 97 Nasal Cannula 2.0 01/10/17 19:45 89 114/64 95 01/10/17 19:21 36.7 76 20 108/64 98 Nasal Cannula 2.0 01/10/17 18:01 121/65 01/10/17 17:31 115/70 01/10/17 17:22 70 15 99 01/10/17 17:01 115/68 01/10/17 17:00 70 115/68 100 Nasal Cannula 4.0 01/10/17 16:52 71 16 100 01/10/17 16:48 117/70 01/10/17 16:28 87 Room Air 01/10/17 16:26 90 Nasal Cannula 4.0 01/10/17 16:22 69 21 92 01/10/17 16:19 98 Room Air 01/10/17 16:16 75 119/93 95 Room Air 01/10/17 16:14 119/63 01/10/17 15:52 71 15 01/10/17 15:37 77 91/57 98 Room Air 01/10/17 15:32 98 Room Air 01/10/17 15:32 91/57 01/10/17 15:29 86 01/10/17 15:26 174/157 General Appearance: no apparent distress Eyes: normal inspection, EOMI Neck: supple, no adenopathy, thyroid normal Respiratory/Chest: chest non-tender, lungs clear, normal breath sounds, no accessory muscle use, + decreased breath sounds, + pertinent finding (O2 by NC. ) Cardiovascular: regular rate, rhythm, no JVD, no murmur Abdomen: normal bowel sounds, non tender, soft, no organomegaly Extremities: normal inspection, no pedal edema, normal capillary refill Neurologic/Psych: alert, normal mood/affect, oriented x 3 Skin: normal color, no jaundice, warm/dry, no rash Laboratory Results Last 24 Hours Test 01/10/17 15:20 01/10/17 15:50 01/10/17 15:51 01/10/17 21:07 White Blood Count 10.59 K/uL Red Blood Count 5.41 M/uL Hemoglobin 15.9 g/dL Hematocrit 47.4 % Mean Corpuscular Volume 87.6 fL Mean Corpuscular Hemoglobin 29.4 pg Mean Corpuscular Hemoglobin Concent 33.5 g/dl Platelet Count 246 K/uL Mean Platelet Volume 9.9 fL Neutrophils (%) (Auto) 71.9 % Lymphocytes (%) (Auto) 17.0 % Monocytes (%) (Auto) 8.9 % Eosinophils (%) (Auto) 1.3 % Basophils (%) (Auto) 0.5 % Neutrophils # (Auto) 7.62 K/uL Lymphocytes # (Auto) 1.80 K/uL Monocytes # (Auto) 0.94 K/uL Eosinophils # (Auto) 0.14 K/uL Basophils # (Auto) 0.05 K/uL RDW Standard Deviation 57.3 fL RDW Coefficient of Variation 17.9 % Immature Granulocyte % (Auto) 0.4 % Immature Granulocyte # (Auto) 0.04 K/uL Prothrombin Time 20.9 SECONDS Prothromb Time International Ratio 1.9 Activated Partial Thromboplast Time 33.3 SECONDS Partial Thromboplastin Ratio 1.3 Sodium Level 133 mmol/L Potassium Level 3.0 mmol/L 2.4 mmol/L Chloride Level 84 mmol/L Carbon Dioxide Level 35 mmol/L Anion Gap 14.0 mmol/L 16.0 mmol/L Blood Urea Nitrogen 111 mg/dl Creatinine 5.30 mg/dl Est Creatinine Clear Calc Drug Dose 10.4 ml/min Estimated GFR () 10.8 Estimated GFR (Non- 9.3 BUN/Creatinine Ratio 21.0 Random Glucose 180 mg/dl Calcium Level 8.9 mg/dl Magnesium Level 3.2 mg/dl Total Bilirubin 0.6 mg/dl Direct Bilirubin mg/dl Aspartate Amino Transf (AST/SGOT) 281 U/L Alanine Aminotransferase (ALT/SGPT) 271 U/L Alkaline Phosphatase 135 U/L Troponin I 0.617 ng/ml 0.634 ng/ml Total Protein 7.8 gm/dl Albumin 3.6 gm/dl Lipase 95 U/L Thyroid Stimulating Hormone (TSH) 1.470 uIu/ml Chemistry Specimen Hemolysis Bedside Hemoglobin 17.3 g/dl Bedside Hematocrit 51 % Bedside Sodium 133 mEq/L Bedside Potassium 2.8 mEq/L Bedside Chloride 84 mEq/L Bedside Total CO2 37 mEq/l Bedside Blood Urea Nitrogen 104 mg/dl Bedside Creatinine 5.1 mg/dl Bedside Glucose (other) 184 mg/dl Bedside Ionized Calcium (Larry) 0.99 mmol/l Bedside Glucose 161 mg/dl Total Creatine Kinase 84 U/L Creatine Kinase MB 2.5 ng/ml Creatine Kinase MB Ratio 3.0 Test 01/10/17 21:10 01/11/17 00:22 01/11/17 04:44 01/11/17 07:10 Urine Color YELLOW Urine Appearance CLEAR Urine pH 5.0 Urine Specific [place] 1.013 Urine Protein NEG Urine Glucose (UA) NEG Urine Ketones NEG Urine Occult Blood 1+ Urine Nitrite NEG Urine Bilirubin NEG Urine Urobilinogen NEG Urine Leukocyte Esterase LARGE Urine WBC (Auto) >30 /hpf Urine RBC (Auto) 5-10 /hpf Urine Hyaline Casts (Auto) 1-5 /lpf Urine Epithelial Cells (Auto) 5-10 /lpf Urine Bacteria (Auto) 1+ Bedside Glucose 179 mg/dl 146 mg/dl Creatine Kinase MB Ratio Test 01/11/17 07:20 White Blood Count 7.29 K/uL Red Blood Count 4.35 M/uL Hemoglobin 13.1 g/dL Hematocrit 38.4 % Mean Corpuscular Volume 88.3 fL Mean Corpuscular Hemoglobin 30.1 pg Mean Corpuscular Hemoglobin Concent 34.1 g/dl RDW Standard Deviation 58.7 fL RDW Coefficient of Variation 18.0 % Platelet Count 194 K/uL Mean Platelet Volume 9.7 fL Prothrombin Time 21.4 SECONDS Prothromb Time International Ratio 1.9 Impression Patient is a 81 year old male with dysphagia and globus sensation in the setting of recent nausea, vomiting, abdominal pain - though he doesn't seem to have these symptoms currently and currently admitted for acute on chronic renal insufficiency, electrolyte disturbances, falls. Differentials considered are reflux esophagitis, esophageal dysmotility, candidiasis. Plan 1. After correction of electrolyte disturbances, and renal insufficiency, consider barium swallow to verify no esophageal lesions or strictures. 2. Would defer EGD, unless barium swallow shows an abnormality. 3. Also, reviewed with patient that he should remain upright after eating for a few hours to prevent esophagitis. 4. Pt is on a daily PPI, would continue . I have personally seen and examined the patient with MADINA Way. Her note reflects my exam and findings. I agree with her impression and plan. Most likely oropharyngeal dysphagia. Once stable we recommend an UGI. Kale Butterfield M.D.
--- NOTE | 2017-01-11 08:25 | NEPHROLOGY CONSULTATION ---
DATE OF CONSULTATION: 01/11/2017 ATTENDING OF RECORD: Dr. Alegria. REASON FOR CONSULTATION: JOSUÉ. HISTORY OF PRESENT ILLNESS: This is an 81-year-old male with significant cardiac history with multiple stents, systolic heart failure, AFib, and bradycardia. The patient with a stroke in the past with left upper extremity weakness as well as pancreatic cancer in the past as well, who has CKD stage IV at baseline and became sick this week with decreased appetite and lightheadedness with multiple falls. The patient went to outpatient office, was sent over to the Emergency Room for further evaluation. The patient was found to have elevated creatinine of 5.3 and started on IV fluids. The patient's potassium levels were also low and were given potassium supplementation. The patient is currently out of bed on the side, eating his breakfast starting to feel better. They did attempt a Ruff catheter twice and unsuccessful. The patient has had difficult Ruff insertions in the past. The patient is urinating okay and states he has clear urine at this time. PAST MEDICAL HISTORY: AFib, BPH, heart disease, CKD stage IV, congestive heart failure, COPD, history of stroke in the past, type 2 diabetes, hyperlipidemia, pancreatic cancer, hypertension. PAST SURGICAL HISTORY: Hip replacement, cholecystectomy, stents to the heart, and Whipple procedure. FAMILY HISTORY: Significant for diabetes and hypertension. SOCIAL HISTORY: Former smoker, no alcohol, no drugs. Lives with girlfriend at home. CURRENT MEDICATIONS: Zosyn 3.375 IV q. 12; vitamin C 1 gram daily; Lipitor 10 mg daily; calcitriol 0.25 mcg Mondays, Wednesdays, and Fridays; vitamin D 2000 units daily; Plavix 75 mg daily; Proscar 5 mg daily; Flonase 2 sprays daily; multivitamin daily; senna 1 tab daily; Zoloft 50 mg daily; Flomax 0.4 mg daily; Toprol-XL 25 mg daily; amiodarone 200 mg p.o. b.i.d. REVIEW OF SYSTEMS: Positive decreased appetite. Positive lightheadedness. Multiple falls. No nausea, vomiting, fatigue. No chest pain, no shortness of breath, no dysuria, no fevers or chills. All other review of systems otherwise negative. PHYSICAL EXAMINATION: VITAL SIGNS: Temperature 36.3, pulse 70, respiratory rate 16, blood pressure 101/63, satting 98% on 1 liter. GENERAL: Awake, alert, oriented x3. EYES: No scleral icterus. HEENT: Mucous membranes are dry. NECK: Supple. PULMONARY: Clear to auscultation. CARDIAC: Regular rate and rhythm. ABDOMEN: Bowel sounds positive, soft, nontender, nondistended. EXTREMITIES: No clubbing, cyanosis or edema. NEUROLOGIC: He does have decreased strength in the left upper extremity, mild and chronic. DERMATOLOGIC: No rash or ulcers noted. LABORATORIES: Sodium level is 133. Potassium is 2.4, chloride is 84, bicarbonate is 37, BUN 104, creatinine is 5.1, glucose 184, ionized calcium 0.99. Troponin 0.634. White count 7.2, H&H 13 and 38, platelet count is 194. INR is 1.9. UA shows 1+ blood, specific gravity 1.013, large leukocyte esterase, greater than 30 WBCs, 5-10 RBCs. INR is 1.9. IMAGING DATA: Chest x-ray shows moderate cardiomegaly, no acute cardiopulmonary findings. Abdominal and pelvis CT shows a chronic biliary wall thickening. IMPRESSION AND PLAN: 1. Acute kidney injury on chronic kidney disease stage IV with no obvious hydronephrosis who clinically appears volume depleted. I Agree with IV fluid resuscitation; however, careful given his cardiac history about fluid overloading, the patient though is not short of breath on minimal oxygen for comfort. We will follow labs and hopefully, creatinine eventually improves back down to baseline. 2. Urinalysis appears possibly infectious. Urine culture is pending. Currently on Zosyn and I defer to the primary hospitalist. 3. Renal osteodystrophy, currently on calcitriol 0.25 mcg Mondays, Wednesdays, and Fridays as well as vitamin D 1000 units a day and we will continue these medications. 4. Hypokalemia. Potassium levels significantly low and are repleting aggressively and I will follow the labs. Overall, acute kidney injury in the setting of volume depletion and currently tolerating IV fluids, but careful not to fluid overload the patient. I appreciate the consultation. CM
[2017-01-11 08:26] LABS: BUN/CREATININE RATIO 24.1 (10-20); CALCIUM 7.7 mg/dl (8.5-10.1); CKMB/CK RATIO 3.9 (0-3.0); CREATININE 4.2 mg/dl (0.60-1.40); MAGNESIUM 2.6 mg/dl (1.8-2.4); POTASSIUM 2.9 mmol/L (3.5-5.1)
[2017-01-11] MEDS ORDERED: METOPROLOL SUCC 50MG EXT REL TAB PO SCH (09:00)
[2017-01-11] MEDS ORDERED: POTASSIUM CHLORIDE 10 MEQ TABCR PO ONE (09:30)
[2017-01-11] MEDS: PIPERACILL/TAZOBAC IV 3.375 GM in DEXTROSE 5% 100ML IV SCH (11:42)
[2017-01-11 12:44] VITALS: BP 95/58; PULSE 73; TEMP 36.4; O2SAT 96
--- NOTE | 2017-01-11 15:55 | DIAGNOSTIC IMAGING REPORT ---
HEPATOBILIARY HIDA IMAGING CLINICAL HISTORY: 81 years-old Male presenting with post lap choley pain and mild t bili elevation, r/o bile leak. TECHNIQUE: Immediately following the intravenous administration of 5.5 mCi Tc-99m Choletec, dynamic anterior abdominal imaging was performed. COMPARISON: CT from 01/10/2017.. FINDINGS: Uniform hepatic tracer accumulation is shown. Prompt intrahepatic biliary excretion is seen with postsurgical changes of hepaticojejunostomy. The residual common duct and small bowel are all visualized by 6-10 minutes. This appearance represents the normal sequence of biliary excretion. IMPRESSION: 1. No evidence for cystic duct obstruction. Postsurgical changes of hepaticojejunostomy. Electronically signed by: Duong Weldon M.D. 01/11/2017 3:54 PM Dictated Date/Time: 01/11/2017 3:52 PM
[2017-01-11 16:04] VITALS: BP 112/73; PULSE 80; TEMP 36.4; O2SAT 96
[2017-01-11] MEDS: WARFARIN SOD 3 MG TAB PO SCH (16:38)
[2017-01-11 16:44] LABS: BUN/CREATININE RATIO 21.9 (10-20); CALCIUM 8.4 mg/dl (8.5-10.1); CREATININE 4.1 mg/dl (0.60-1.40); POTASSIUM 3.4 mmol/L (3.5-5.1)
[2017-01-11] MEDS ORDERED: POTASSIUM CHLORIDE 10 MEQ TABCR PO STA (18:55)
--- NOTE | 2017-01-11 18:55 | Progress Note ---
Medicine Progress Note Date & Time of Visit: Jan 11, 2017 at 18:55. Subjective Patient is doing ok, states he feels better than he did on admission. No overnight events noted. Tolerating regular consistency foods. Has been voiding without difficulty. No complaints at this time. Was seen by therapy today, thinks he did well. Denies any symptoms of CP, SOB, dizziness, or lightheadedness. Objective Last 8 Hrs Date Time Temp Pulse Resp B/P (MAP) Pulse Ox O2 Delivery O2 Flow Rate FiO2 01/11/17 16:04 36.4 80 20 112/73 (86) 96 Nasal Cannula 1.0 01/11/17 16:00 Nasal Cannula 1.0 01/11/17 12:44 36.4 73 16 95/58 (70) 96 Nasal Cannula 1.0 01/11/17 12:00 Nasal Cannula 1.0 Physical Exam: GENERAL: Patient is in no acute distress. HEENT: No acute trauma, normocephalic, atraumatic, mucous membranes moist, no nasal congestion, no scleral icterus. NECK: No stridor, trachea is midline. LUNGS: Clear to auscultation bilaterally, no wheeze, no rhonchi, breath sounds equal. HEART: Without murmurs gallops or rubs, regular rate and rhythm. ABDOMEN: Soft, nontender, bowel sounds positive EXTREMITIES: No cyanosis or edema NEUROLOGIC: Oriented x 3, no acute motor or sensory deficits, no focal weakness. SKIN: No rash, no jaundice, no diaphoresis. Laboratory Results: Last 24 Hours Test 01/10/17 21:07 01/10/17 21:10 01/11/17 00:22 01/11/17 07:10 Potassium Level 2.4 mmol/L Total Creatine Kinase 84 U/L Creatine Kinase MB 2.5 ng/ml Creatine Kinase MB Ratio 3.0 Troponin I 0.634 ng/ml Urine Color YELLOW Urine Appearance CLEAR Urine pH 5.0 Urine Specific [place] 1.013 Urine Protein NEG Urine Glucose (UA) NEG Urine Ketones NEG Urine Occult Blood 1+ Urine Nitrite NEG Urine Bilirubin NEG Urine Urobilinogen NEG Urine Leukocyte Esterase LARGE Urine WBC (Auto) >30 /hpf Urine RBC (Auto) 5-10 /hpf Urine Hyaline Casts (Auto) 1-5 /lpf Urine Epithelial Cells (Auto) 5-10 /lpf Urine Bacteria (Auto) 1+ Bedside Glucose 179 mg/dl 146 mg/dl Test 01/11/17 07:20 01/11/17 11:01 01/11/17 16:07 01/11/17 16:27 White Blood Count 7.29 K/uL Red Blood Count 4.35 M/uL Hemoglobin 13.1 g/dL Hematocrit 38.4 % Mean Corpuscular Volume 88.3 fL Mean Corpuscular Hemoglobin 30.1 pg Mean Corpuscular Hemoglobin Concent 34.1 g/dl RDW Standard Deviation 58.7 fL RDW Coefficient of Variation 18.0 % Platelet Count 194 K/uL Mean Platelet Volume 9.7 fL Prothrombin Time 21.4 SECONDS Prothromb Time International Ratio 1.9 Sodium Level 137 mmol/L 136 mmol/L Potassium Level 2.9 mmol/L 3.4 mmol/L Chloride Level 97 mmol/L 95 mmol/L Carbon Dioxide Level 32 mmol/L 31 mmol/L Anion Gap 9.0 mmol/L 10.0 mmol/L Blood Urea Nitrogen 101 mg/dl 90 mg/dl Creatinine 4.20 mg/dl 4.10 mg/dl Est Creatinine Clear Calc Drug Dose 13.1 ml/min 13.4 ml/min Estimated GFR () 14.3 14.7 Estimated GFR (Non- 12.3 12.7 BUN/Creatinine Ratio 24.1 21.9 Random Glucose 134 mg/dl 171 mg/dl Calcium Level 7.7 mg/dl 8.4 mg/dl Magnesium Level 2.6 mg/dl Total Bilirubin 0.5 mg/dl Direct Bilirubin 0.3 mg/dl Aspartate Amino Transf (AST/SGOT) 198 U/L Alanine Aminotransferase (ALT/SGPT) 209 U/L Alkaline Phosphatase 92 U/L Total Creatine Kinase 75 U/L Creatine Kinase MB 2.9 ng/ml Creatine Kinase MB Ratio 3.9 Troponin I 0.591 ng/ml Total Protein 6.3 gm/dl Albumin 2.7 gm/dl Bedside Glucose 222 mg/dl 188 mg/dl Date/Time Source Procedure Growth Status 01/10/17 21:10 Urine , Clean Catch Urine Culture - Preliminary Gram Negative Bacilli Resulted Assessment & Plan MULTIPLE FALLS, POSSIBLE SYNCOPE: -likely multifactorial from hypovolemia and orthostasis with concurrent UTI and questionable viral GI illness -still has borderline low BP's even after IV fluids and holding lasix -check orthostatic VS -pacemaker interrogation unremarkable not showing any notable events -monitor in telemetry -CT head negative -X-ray of T-spine: degenerative changes but no fracture, x-ray C-spine: degenerative changes 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 amount, was mixed with stool in ER) -CPK normal TROPONIN ELEVATION: -denies any additional cardiac symptoms -possibly related to renal failure -EKG shows paced rhythm -serial cardiac enzymes trended down HYPOXIA EPISODE: -unclear etiology -CXR: no acute findings -on 1L supplemental O2; wean as tolerated HYPOKALEMIA: -Potassium was 2.9-->3.4 on recheck -magnesium normal -replete and recheck K TRANSAMINITIS: -AST, ALT, Alk phos acutely elevated, ? secondary to muscle injury from fall -Bilirubin WNL, abdominal exam benign -trending down -HIDA scan negative CHRONIC SYSTOLIC CHF: EF 30-35% -hypovolemic on admission -Lasix held -hydrated with gentle IV fluids, now off -monitor closely with daily weights and I's and O's DYSPHAGIA: -reports chronic swallowing difficulty to solids -Speech therapy consulted -aspiration precautions -on regular consistency diet as he did not want mechanical ground consistency UNINTENTIONAL WEIGHT LOSS: -likely protein-calorie malnutrition -13 lb weight loss since 10/2016 per outpatient records -possibly secondary to UTI, or worsening renal function; possible viral gastroenteritis previously as well -appetite has improved considerably since admission -? if from acute illness or dysphagia or a neoplastic process DM TYPE II: -hold home meds Novolog 70/30 -monitor BSG AC HS -cover with correction scale Insulin + lantus CAD: S/P STENTS -cath in 2012 showed patent stents per Cardiology notes -no related symptoms at the moment -continue Plavix, statin, and beta mansi ATRIAL FIBRILLATION: -rate is controlled (paced) -continue amiodarone and metoprolol -INR: 1.9 -continue Coumadin -monitor INR Hx of SYMPTOMATIC BRADYCARDIA; S/P PACEMAKER -pacemaker interrogation -monitor on tele HYPERTENSION: -BP has been on the lower side -continue metoprolol with hold parameters Prior Hx of PANCREATIC CA: -S/p Whipple, chemo, radiation in 2006 -continue pancreatic enzymes BPH: -with history of urinary retention -continue tamsulosin and finasteride GERD: -continue PPI Current Inpatient Medications: Current Inpatient Medications Medications (Trade) Dose Ordered Sig/Quoc Route Start Time Stop Time Status Last Admin Dose Admin Acetaminophen (Tylenol Tab) 650 mg Q4H PRN PO 01/10/17 18:30 02/09/17 18:29 01/10/17 21:30 650 MG Ondansetron HCl (Zofran Inj) 4 mg Q6H PRN IV 01/10/17 18:30 02/09/17 18:29 Insulin Aspart (novoLOG ASPART) SLIDING SCALE If C... ACHS SC 01/11/17 00:00 02/10/17 00:00 01/11/17 17:12 3 UNITS Glucose (Glucose 40% Gel) 15-30 GRAMS 15 GRAMS... UD PRN PO 01/10/17 19:45 02/09/17 19:44 Glucose (Glucose Chew Tab) 4-8 Tablets 4 Tabl... UD PRN PO 01/10/17 19:45 02/09/17 19:44 Dextrose (Dextrose 50% 50ML Syringe) 25-50ML OF 50% DW IV FOR... UD PRN IV 01/10/17 19:45 02/09/17 19:44 Glucagon (Glucagon Inj) 1 mg UD PRN SQ 01/10/17 19:45 02/09/17 19:44 Amiodarone HCl (Cordarone Tab) 200 mg BID PO 01/10/17 21:00 02/09/17 20:59 01/11/17 07:43 200 MG Ascorbic Acid (Vitamin C Tab) 1,000 mg DAILY PO 01/11/17 09:00 02/10/17 08:59 01/11/17 07:45 1,000 MG Atorvastatin Calcium (Lipitor Tab) 10 mg DAILY PO 01/11/17 09:00 02/10/17 08:59 01/11/17 07:43 10 MG Calcitriol (Rocaltrol Cap) 0.25 mcg MoWeFr@0900 PO 01/11/17 09:00 02/10/17 08:59 01/11/17 07:45 0.25 MCG Cholecalciferol (Vitamin D Tab) 1,000 inter.unit DAILY PO 01/11/17 09:00 02/10/17 08:59 01/11/17 07:46 1,000 INTER.UNIT Clopidogrel Bisulfate (plAVix TAB) 75 mg DAILY PO 01/11/17 09:00 02/10/17 08:59 01/11/17 07:44 75 MG Finasteride (Proscar Tab) 5 mg DAILY PO 01/11/17 09:00 02/10/17 08:59 01/11/17 07:44 5 MG Fluticasone Propionate (Flonase Nasal [place]) 2 sprays DAILY RICHA 01/11/17 09:00 02/10/17 08:59 01/11/17 07:42 2 SPRAYS Levalbuterol (Xopenex Hfa Inhaler) 2 puffs Q4H PRN INH 01/10/17 20:00 02/09/17 19:59 Multivitamins/ Minerals (Multivitamin W/ Minerals Tab) 1 tab DAILY PO 01/11/17 09:00 02/10/17 08:59 01/11/17 07:44 1 TAB Senna/Docusate Sodium (Senokot S Tab) 1 tab DAILY PO 01/11/17 09:00 02/10/17 08:59 01/11/17 07:45 1 TAB Sertraline HCl (Zoloft Tab) 50 mg DAILY PO 01/11/17 09:00 02/10/17 08:59 01/11/17 07:46 50 MG Tamsulosin HCl (Flomax Cap) 0.4 mg DAILY PO 01/11/17 09:00 02/10/17 08:59 01/11/17 07:43 0.4 MG Warfarin Sodium (Coumadin Tab) 3 mg SuMoWeFrSa@1600 PO 01/11/17 16:00 02/10/17 15:59 01/11/17 16:38 3 MG Miscellaneous Information (Order Awaiting Action) 1 ea QS N/A 01/11/17 00:00 02/10/17 00:00 Lansoprazole (Prevacid Solutab) 30 mg DAILY PO 01/11/17 09:00 02/10/17 08:59 01/11/17 07:44 30 MG Oxycodone HCl (Roxicodone Immediate Rel Tab) 1 mg Q6 PRN PO 01/10/17 20:00 02/09/17 19:59 Miscellaneous Information (Order Awaiting Action) 1 ea QS N/A 01/11/17 00:00 02/10/17 00:00 Warfarin Sodium (Coumadin Tab) 1.5 mg TuTh@1600 PO 01/15/17 16:00 02/14/17 15:59 Metoprolol Succinate (Toprol Xl Tab) 25 mg QAM PO 01/11/17 09:00 02/10/17 08:59 01/11/17 07:45 25 MG Piperacillin Sod/ Tazobactam Sod 3.375 gm/Dextrose 115 ml @ 28.75 mls/ hr Q12H IV 01/11/17 12:00 01/16/17 11:59 01/11/17 11:42 28.75 MLS/HR Piperacillin Sod/ Tazobactam Sod (Consult) 1 ea UD PRN N/A 01/11/17 04:00 02/10/17 03:59
[2017-01-11 20:06] VITALS: BP 119/70; PULSE 98; TEMP 36.5; O2SAT 94
[2017-01-11 23:12] VITALS: BP 103/57; PULSE 72; TEMP 36.7; O2SAT 97
[2017-01-12] VITALS (9 sets, daily range): BP systolic 93–107; BP diastolic 58–71; PULSE 72–78; TEMP 36.5–36.7; O2SAT 93–98
[2017-01-12] MEDS: PIPERACILL/TAZOBAC IV 3.375 GM in DEXTROSE 5% 100ML IV SCH ×2
[2017-01-12 07:11] LABS: HEMATOCRIT 37.4 % (42-52); MEAN CELL VOLUME 89.3 fL (80-100); MEAN CORPUSCULAR HEMOGLOBIN 30.1 pg (25-34); MEAN CORPUSCULAR HGB CONC 33.7 g/dl (32-36); MEAN PLATELET VOLUME 9.9 fL (7.4-10.4); PLATELET COUNT 169 K/uL (130-400); RED BLOOD COUNT 4.19 M/uL (4.7-6.1); WHITE BLOOD COUNT 7.42 K/uL (4.8-10.8)
[2017-01-12 07:47] LABS: BUN/CREATININE RATIO 22.5 (10-20); CALCIUM 8.1 mg/dl (8.5-10.1); POTASSIUM 3.6 mmol/L (3.5-5.1)
[2017-01-12] MEDS: CLOPIDOGREL BISULFATE 75 MG TAB PO SCH (08:28)
[2017-01-12] MEDS: METOPROLOL SUCC 25MG EXT REL TAB PO SCH (08:28)
[2017-01-12] MEDS: DOCUSATE SODIUM/SENNA 50/8.6MG TAB PO SCH (08:28)
[2017-01-12] MEDS: AMIODARONE 200 MG TAB PO SCH ×2 (08:28→20:04)
[2017-01-12] MEDS: SERTRALINE HCL 50 MG TAB PO SCH (08:28)
[2017-01-12] MEDS: CEROVITE ADV FORMULA TAB PO SCH (08:28)
[2017-01-12] MEDS: CHOLECALCIFEROL 1000 INTER.UNIT TAB PO SCH (08:28)
[2017-01-12] MEDS: ATORVASTATIN 10 MG TAB PO SCH (08:28)
[2017-01-12] MEDS: LANSOPRAZOLE SOLUTAB 30 MG PO SCH (08:29)
[2017-01-12] MEDS: TAMSULOSIN HCL 0.4 MG CAP PO SCH (08:29)
[2017-01-12] MEDS: ASCORBIC ACID 500 MG TAB PO SCH (08:29)
[2017-01-12] MEDS: FINASTERIDE 5 MG TAB PO SCH (08:29)
[2017-01-12] MEDS: FLUTICASONE PROPIONATE NA SPR 16 GM BTL NAE SCH (08:30)
[2017-01-12] MEDS: INSULIN ASPART 100 UNITS/ML 3 ML PEN SC SCH ×4 (08:31→21:14)
--- NOTE | 2017-01-12 10:08 | Nephrology Progress Note ---
Nephrology Progress Note Date of Service: Jan 12, 2017. Subjective 81 yo male with regis/uti who is clinically improving. creatinine not yet back to baseline. not requiring oxygen. main complaint is constipation. otherwise doiing well. Objective Date Time Temp Pulse Resp B/P (MAP) Pulse Ox O2 Delivery O2 Flow Rate FiO2 01/12/17 08:00 95 Room Air 01/12/17 08:00 74 01/12/17 08:00 95 Nasal Cannula 1.0 01/12/17 07:58 36.5 78 16 99/61 (74) 95 Nasal Cannula 1.0 01/12/17 04:00 Room Air 01/12/17 03:57 36.7 72 19 104/61 (75) 94 Room Air 01/12/17 00:01 Room Air 01/11/17 23:12 36.7 72 18 103/57 (72) 97 Room Air 01/11/17 20:15 Room Air 01/11/17 20:06 36.5 98 20 119/70 (86) 94 Room Air 01/11/17 16:04 36.4 80 20 112/73 (86) 96 Nasal Cannula 1.0 01/11/17 16:00 Nasal Cannula 1.0 01/11/17 12:44 36.4 73 16 95/58 (70) 96 Nasal Cannula 1.0 01/11/17 12:00 Nasal Cannula 1.0 Physical Exam: General-aaox3 Eyes-no scleral icterus ENT-mmm Neck-supple Lungs-cta Heart-rrr Abdomen-bs+ s/nt/nd Extremities-no c/c/e Neuro-nonfocal Current Inpatient Medications Medications (Trade) Dose Ordered Sig/Quoc Route Start Time Stop Time Status Last Admin Dose Admin Acetaminophen (Tylenol Tab) 650 mg Q4H PRN PO 01/10/17 18:30 02/09/17 18:29 01/10/17 21:30 650 MG Ondansetron HCl (Zofran Inj) 4 mg Q6H PRN IV 01/10/17 18:30 02/09/17 18:29 Insulin Aspart (novoLOG ASPART) SLIDING SCALE If C... ACHS SC 01/11/17 00:00 02/10/17 00:00 01/12/17 08:31 7 UNITS Glucose (Glucose 40% Gel) 15-30 GRAMS 15 GRAMS... UD PRN PO 01/10/17 19:45 02/09/17 19:44 Glucose (Glucose Chew Tab) 4-8 Tablets 4 Tabl... UD PRN PO 01/10/17 19:45 02/09/17 19:44 Dextrose (Dextrose 50% 50ML Syringe) 25-50ML OF 50% DW IV FOR... UD PRN IV 01/10/17 19:45 02/09/17 19:44 Glucagon (Glucagon Inj) 1 mg UD PRN SQ 01/10/17 19:45 02/09/17 19:44 Amiodarone HCl (Cordarone Tab) 200 mg BID PO 01/10/17 21:00 02/09/17 20:59 01/12/17 08:28 200 MG Ascorbic Acid (Vitamin C Tab) 1,000 mg DAILY PO 01/11/17 09:00 02/10/17 08:59 01/12/17 08:29 1,000 MG Atorvastatin Calcium (Lipitor Tab) 10 mg DAILY PO 01/11/17 09:00 02/10/17 08:59 01/12/17 08:28 10 MG Calcitriol (Rocaltrol Cap) 0.25 mcg MoWeFr@0900 PO 01/11/17 09:00 02/10/17 08:59 01/11/17 07:45 0.25 MCG Cholecalciferol (Vitamin D Tab) 1,000 inter.unit DAILY PO 01/11/17 09:00 02/10/17 08:59 01/12/17 08:28 1,000 INTER.UNIT Clopidogrel Bisulfate (plAVix TAB) 75 mg DAILY PO 01/11/17 09:00 02/10/17 08:59 01/12/17 08:28 75 MG Finasteride (Proscar Tab) 5 mg DAILY PO 01/11/17 09:00 02/10/17 08:59 01/12/17 08:29 5 MG Fluticasone Propionate (Flonase Nasal [place]) 2 sprays DAILY RICHA 01/11/17 09:00 02/10/17 08:59 01/12/17 08:30 2 SPRAYS Levalbuterol (Xopenex Hfa Inhaler) 2 puffs Q4H PRN INH 01/10/17 20:00 02/09/17 19:59 Multivitamins/ Minerals (Multivitamin W/ Minerals Tab) 1 tab DAILY PO 01/11/17 09:00 02/10/17 08:59 01/12/17 08:28 1 TAB Senna/Docusate Sodium (Senokot S Tab) 1 tab DAILY PO 01/11/17 09:00 02/10/17 08:59 01/12/17 08:28 1 TAB Sertraline HCl (Zoloft Tab) 50 mg DAILY PO 01/11/17 09:00 02/10/17 08:59 01/12/17 08:28 50 MG Tamsulosin HCl (Flomax Cap) 0.4 mg DAILY PO 01/11/17 09:00 02/10/17 08:59 01/12/17 08:29 0.4 MG Warfarin Sodium (Coumadin Tab) 3 mg SuMoWeFrSa@1600 PO 01/11/17 16:00 02/10/17 15:59 01/11/17 16:38 3 MG Miscellaneous Information (Order Awaiting Action) 1 ea QS N/A 01/11/17 00:00 02/10/17 00:00 Lansoprazole (Prevacid Solutab) 30 mg DAILY PO 01/11/17 09:00 02/10/17 08:59 01/12/17 08:29 30 MG Oxycodone HCl (Roxicodone Immediate Rel Tab) 1 mg Q6 PRN PO 01/10/17 20:00 02/09/17 19:59 Miscellaneous Information (Order Awaiting Action) 1 ea QS N/A 01/11/17 00:00 02/10/17 00:00 Warfarin Sodium (Coumadin Tab) 1.5 mg TuTh@1600 PO 01/15/17 16:00 02/14/17 15:59 Metoprolol Succinate (Toprol Xl Tab) 25 mg QAM PO 01/11/17 09:00 02/10/17 08:59 01/12/17 08:28 25 MG Ceftriaxone Sodium 1 gm/ Dextrose 50 ml @ 100 mls/hr Q24H IV 01/12/17 10:00 01/22/17 09:59 Last 24 Hours Test 01/11/17 11:01 01/11/17 16:07 01/11/17 16:27 10/13/17 20:49 Bedside Glucose 222 mg/dl 188 mg/dl 118 mg/dl Sodium Level 136 mmol/L Potassium Level 3.4 mmol/L Chloride Level 95 mmol/L Carbon Dioxide Level 31 mmol/L Anion Gap 10.0 mmol/L Blood Urea Nitrogen 90 mg/dl Creatinine 4.10 mg/dl Est Creatinine Clear Calc Drug Dose 13.4 ml/min Estimated GFR () 14.7 Estimated GFR (Non- 12.7 BUN/Creatinine Ratio 21.9 Random Glucose 171 mg/dl Calcium Level 8.4 mg/dl Test 01/12/17 06:20 01/12/17 06:21 Bedside Glucose 220 mg/dl White Blood Count 7.42 K/uL Red Blood Count 4.19 M/uL Hemoglobin 12.6 g/dL Hematocrit 37.4 % Mean Corpuscular Volume 89.3 fL Mean Corpuscular Hemoglobin 30.1 pg Mean Corpuscular Hemoglobin Concent 33.7 g/dl RDW Standard Deviation 59.3 fL RDW Coefficient of Variation 18.1 % Platelet Count 169 K/uL Mean Platelet Volume 9.9 fL Sodium Level 137 mmol/L Potassium Level 3.6 mmol/L Chloride Level 99 mmol/L Carbon Dioxide Level 29 mmol/L Anion Gap 9.0 mmol/L Blood Urea Nitrogen 90 mg/dl Creatinine 4.00 mg/dl Est Creatinine Clear Calc Drug Dose 13.7 ml/min Estimated GFR () 15.1 Estimated GFR (Non- 13.1 BUN/Creatinine Ratio 22.5 Random Glucose 218 mg/dl Calcium Level 8.1 mg/dl Assessment & Plan [id number]-creatinine improving and pt doing well. not yet back to baseline. to restart low rate of iv fluids with plan of stopping them tomorrow. hypokalemia-repleting potassium yesterday. k improved to 3.6 today. will go ahead and give an additional 40meq of kdur again today with goal of keeping k above 4 if possible.
[2017-01-12] MEDS: SODIUM CHLORIDE 0.9% 1000ML 1,000 ML IV SCH (10:29)
[2017-01-12] MEDS: CEFTRIAXONE SOD INJ 1 GM in DEXTROSE 5% ADD-VANTAGE 50ML 50 ML IV SCH (10:29)
[2017-01-12] MEDS ORDERED: POTASSIUM CHLORIDE 10 MEQ TABCR PO ONE (10:30)
[2017-01-12] MEDS: WARFARIN SOD 3 MG TAB PO SCH (16:43)
--- NOTE | 2017-01-12 18:10 | Progress Note ---
Medicine Progress Note Date & Time of Visit: Jan 12, 2017 at 18:10. Subjective Patient is doing well, denies having any dizziness or lightheadedness. Only complaint is constipation. No overnight events noted. Tolerating PO without difficulty. Appetite improved. States his significant other is going to bring him his pancrealipase tabs. No other complaints. Appetite has improved. Objective Last 8 Hrs Date Time Temp Pulse Resp B/P (MAP) Pulse Ox O2 Delivery O2 Flow Rate FiO2 01/12/17 16:00 95 Room Air 01/12/17 15:55 36.5 75 20 107/71 (83) 98 Room Air 01/12/17 12:17 36.6 74 16 93/58 (70) 97 Nasal Cannula 01/12/17 12:00 95 Room Air Physical Exam: GENERAL: Patient is in no acute distress. HEENT: No acute trauma, normocephalic, atraumatic, mucous membranes moist, no nasal congestion, no scleral icterus. NECK: No stridor, trachea is midline. LUNGS: Clear to auscultation bilaterally, no wheeze, no rhonchi, breath sounds equal. HEART: Without murmurs gallops or rubs, regular rate and rhythm. ABDOMEN: Soft, nontender, bowel sounds positive EXTREMITIES: No cyanosis or edema NEUROLOGIC: Oriented x 3, no acute motor or sensory deficits, no focal weakness. SKIN: No rash, no jaundice, no diaphoresis. Laboratory Results: Last 24 Hours Test 01/11/17 20:49 01/12/17 06:20 01/12/17 06:21 01/12/17 11:36 Bedside Glucose 118 mg/dl 220 mg/dl 268 mg/dl White Blood Count 7.42 K/uL Red Blood Count 4.19 M/uL Hemoglobin 12.6 g/dL Hematocrit 37.4 % Mean Corpuscular Volume 89.3 fL Mean Corpuscular Hemoglobin 30.1 pg Mean Corpuscular Hemoglobin Concent 33.7 g/dl RDW Standard Deviation 59.3 fL RDW Coefficient of Variation 18.1 % Platelet Count 169 K/uL Mean Platelet Volume 9.9 fL Sodium Level 137 mmol/L Potassium Level 3.6 mmol/L Chloride Level 99 mmol/L Carbon Dioxide Level 29 mmol/L Anion Gap 9.0 mmol/L Blood Urea Nitrogen 90 mg/dl Creatinine 4.00 mg/dl Est Creatinine Clear Calc Drug Dose 13.7 ml/min Estimated GFR () 15.1 Estimated GFR (Non- 13.1 BUN/Creatinine Ratio 22.5 Random Glucose 218 mg/dl Calcium Level 8.1 mg/dl Test 01/12/17 15:56 Bedside Glucose 100 mg/dl Assessment & Plan MULTIPLE FALLS, POSSIBLE SYNCOPE: -likely multifactorial from hypovolemia and orthostasis with concurrent UTI and questionable viral GI illness -still has borderline low BP's even after IV fluids and holding lasix -check orthostatic VS -pacemaker interrogation unremarkable not showing any notable events -monitor in telemetry -CT head negative -X-ray of T-spine: degenerative changes but no fracture, x-ray C-spine: degenerative changes ACUTE RENAL FAILURE ON CKD STAGE IV: -Creatinine was 5.3, baseline in 2's (2.4 in 10/2016) -trending down slowly 4.1-->4.0 today -was on IV fluids at slow rate x 2 L since admission -likely secondary to dehydration and UTI -Nephro consulted, appreciate recs; will resume gentle IV fluids for now -Ruff attempted unsuccessfully x 2 in ER, but producing urine (? amount, was mixed with stool in ER) -CPK normal TROPONIN ELEVATION: -denies any additional cardiac symptoms -possibly related to renal failure -EKG shows paced rhythm -serial cardiac enzymes trended down HYPOXIA EPISODE: -unclear etiology -CXR: no acute findings -on 1L supplemental O2; wean as tolerated HYPOKALEMIA: -Potassium was 2.9-->3.4 on recheck -magnesium normal -replete and recheck K TRANSAMINITIS: -AST, ALT, Alk phos acutely elevated, ? secondary to muscle injury from fall -Bilirubin WNL, abdominal exam benign -trending down -HIDA scan negative CHRONIC SYSTOLIC CHF: EF 30-35% -hypovolemic on admission -Lasix held -hydrated with gentle IV fluids, initially, now plans to restart -monitor closely with daily weights and I's and O's DYSPHAGIA: -reports chronic swallowing difficulty to solids -Speech therapy consulted -aspiration precautions -on regular consistency diet as he did not want mechanical ground consistency UNINTENTIONAL WEIGHT LOSS: -likely protein-calorie malnutrition -13 lb weight loss since 10/2016 per outpatient records -possibly secondary to UTI, or worsening renal function; possible viral gastroenteritis previously as well -appetite has improved considerably since admission -? if from acute illness or dysphagia or a neoplastic process DM TYPE II: -hold home meds Novolog 70/30 -monitor BSG AC HS -cover with correction scale Insulin + lantus CAD: S/P STENTS -cath in 2012 showed patent stents per Cardiology notes -no related symptoms at the moment -continue Plavix, statin, and beta mansi ATRIAL FIBRILLATION: -rate is controlled (paced) -continue amiodarone and metoprolol -INR: 1.9 -continue Coumadin -monitor INR Hx of SYMPTOMATIC BRADYCARDIA; S/P PACEMAKER -pacemaker interrogation as above -monitor on tele HYPERTENSION: -BP has been on the lower side -continue metoprolol with hold parameters Prior Hx of PANCREATIC CA: -S/p Whipple, chemo, radiation in 2005 -continue pancreatic enzymes BPH: -with history of urinary retention -continue tamsulosin and finasteride GERD: -continue PPI Current Inpatient Medications: Current Inpatient Medications Medications (Trade) Dose Ordered Sig/Quoc Route Start Time Stop Time Status Last Admin Dose Admin Acetaminophen (Tylenol Tab) 650 mg Q4H PRN PO 01/10/17 18:30 02/09/17 18:29 01/10/17 21:30 650 MG Ondansetron HCl (Zofran Inj) 4 mg Q6H PRN IV 01/10/17 18:30 02/09/17 18:29 Insulin Aspart (novoLOG ASPART) SLIDING SCALE If C... ACHS SC 01/11/17 00:00 02/10/17 00:00 01/12/17 12:04 8 UNITS Glucose (Glucose 40% Gel) 15-30 GRAMS 15 GRAMS... UD PRN PO 01/10/17 19:45 02/09/17 19:44 Glucose (Glucose Chew Tab) 4-8 Tablets 4 Tabl... UD PRN PO 01/10/17 19:45 02/09/17 19:44 Dextrose (Dextrose 50% 50ML Syringe) 25-50ML OF 50% DW IV FOR... UD PRN IV 01/10/17 19:45 02/09/17 19:44 Glucagon (Glucagon Inj) 1 mg UD PRN SQ 01/10/17 19:45 02/09/17 19:44 Amiodarone HCl (Cordarone Tab) 200 mg BID PO 01/10/17 21:00 02/09/17 20:59 01/12/17 08:28 200 MG Ascorbic Acid (Vitamin C Tab) 1,000 mg DAILY PO 01/11/17 09:00 02/10/17 08:59 01/12/17 08:29 1,000 MG Atorvastatin Calcium (Lipitor Tab) 10 mg DAILY PO 01/11/17 09:00 02/10/17 08:59 01/12/17 08:28 10 MG Calcitriol (Rocaltrol Cap) 0.25 mcg MoWeFr@0900 PO 01/11/17 09:00 02/10/17 08:59 01/11/17 07:45 0.25 MCG Cholecalciferol (Vitamin D Tab) 1,000 inter.unit DAILY PO 01/11/17 09:00 02/10/17 08:59 01/12/17 08:28 1,000 INTER.UNIT Clopidogrel Bisulfate (plAVix TAB) 75 mg DAILY PO 01/11/17 09:00 02/10/17 08:59 01/12/17 08:28 75 MG Finasteride (Proscar Tab) 5 mg DAILY PO 01/11/17 09:00 02/10/17 08:59 01/12/17 08:29 5 MG Fluticasone Propionate (Flonase Nasal [place]) 2 sprays DAILY RICHA 01/11/17 09:00 02/10/17 08:59 01/12/17 08:30 2 SPRAYS Levalbuterol (Xopenex Hfa Inhaler) 2 puffs Q4H PRN INH 01/10/17 20:00 02/09/17 19:59 Multivitamins/ Minerals (Multivitamin W/ Minerals Tab) 1 tab DAILY PO 01/11/17 09:00 02/10/17 08:59 01/12/17 08:28 1 TAB Senna/Docusate Sodium (Senokot S Tab) 1 tab DAILY PO 01/11/17 09:00 02/10/17 08:59 01/12/17 08:28 1 TAB Sertraline HCl (Zoloft Tab) 50 mg DAILY PO 01/11/17 09:00 02/10/17 08:59 01/12/17 08:28 50 MG Tamsulosin HCl (Flomax Cap) 0.4 mg DAILY PO 01/11/17 09:00 02/10/17 08:59 01/12/17 08:29 0.4 MG Warfarin Sodium (Coumadin Tab) 3 mg SuMoWeFrSa@1600 PO 01/11/17 16:00 02/10/17 15:59 01/12/17 16:43 3 MG Miscellaneous Information (Order Awaiting Action) 1 ea QS N/A 01/11/17 00:00 02/10/17 00:00 Lansoprazole (Prevacid Solutab) 30 mg DAILY PO 01/11/17 09:00 02/10/17 08:59 01/12/17 08:29 30 MG Oxycodone HCl (Roxicodone Immediate Rel Tab) 1 mg Q6 PRN PO 01/10/17 20:00 02/09/17 19:59 Warfarin Sodium (Coumadin Tab) 1.5 mg TuTh@1600 PO 01/15/17 16:00 02/14/17 15:59 Metoprolol Succinate (Toprol Xl Tab) 25 mg QAM PO 01/11/17 09:00 02/10/17 08:59 01/12/17 08:28 25 MG Ceftriaxone Sodium 1 gm/ Dextrose 50 ml @ 100 mls/hr Q24H IV 01/12/17 10:00 01/22/17 09:59 01/12/17 10:29 100 MLS/HR Sodium Chloride 1,000 ml @ 50 mls/hr Q20H IV 01/12/17 10:15 02/11/17 10:14 01/12/17 10:29 50 MLS/HR Pancrelipase ([place] [id number] Unit) 1 cap UD PRN PO 01/12/17 11:15 02/11/17 11:14
[2017-01-13 03:20] VITALS: BP 111/63; PULSE 67; TEMP 36.5; O2SAT 95
[2017-01-13] MEDS: SODIUM CHLORIDE 0.9% 1000ML 1,000 ML IV SCH (06:14)
[2017-01-13 06:27] LABS: HEMATOCRIT 37.7 % (42-52); MEAN CORPUSCULAR HEMOGLOBIN 29.6 pg (25-34); MEAN CORPUSCULAR HGB CONC 32.9 g/dl (32-36); MEAN PLATELET VOLUME 10.1 fL (7.4-10.4); PLATELET COUNT 172 K/uL (130-400); RED BLOOD COUNT 4.19 M/uL (4.7-6.1); WHITE BLOOD COUNT 6.72 K/uL (4.8-10.8)
[2017-01-13 06:41] LABS: INR 2.2 (0.9-1.1); PROTHROMBIN TIME (PATIENT) 24.5 SECONDS (9.0-12.0)
[2017-01-13 06:59] LABS: BUN/CREATININE RATIO 23.9 (10-20); CALCIUM 8.3 mg/dl (8.5-10.1); CREATININE 3.4 mg/dl (0.60-1.40); POTASSIUM 3.6 mmol/L (3.5-5.1)
[2017-01-13 07:31] VITALS: BP 143/78; PULSE 83; TEMP 36.4; O2SAT 95
[2017-01-13] MEDS: PANCRELIPASE PO PRN ×2 (07:44→12:23)
--- NOTE | 2017-01-13 08:54 | Nephrology Progress Note ---
Nephrology Progress Note Date of Service: Jan 13, 2017. Subjective 81 yo male with regis/ecolit uti who is clinically improving. creatinine improving with low rate of iv fluids. not requiring any oxygen. laying flat. urinating well. Objective Date Time Temp Pulse Resp B/P (MAP) Pulse Ox O2 Delivery O2 Flow Rate FiO2 01/13/17 07:31 36.4 83 16 143/78 (99) 95 Room Air 01/13/17 04:00 Room Air 01/13/17 03:20 36.5 67 19 111/63 (79) 95 Room Air 01/13/17 00:00 Room Air 01/12/17 23:24 36.5 72 19 101/62 (75) 98 Room Air 01/12/17 20:00 Room Air 01/12/17 19:48 36.7 72 16 99/62 (74) 93 Room Air 01/12/17 16:00 95 Room Air 01/12/17 15:55 36.5 75 20 107/71 (83) 98 Room Air 01/12/17 12:17 36.6 74 16 93/58 (70) 97 Nasal Cannula 01/12/17 12:00 95 Room Air Physical Exam: General-aaox3 Eyes-no scleral icterus ENT-mmm Neck-supple Lungs-clear Heart-regular Abdomen-bs+ s/nt/nd Extremities-no c/c/e Neuro-nonfocal Current Inpatient Medications Medications (Trade) Dose Ordered Sig/Quoc Route Start Time Stop Time Status Last Admin Dose Admin Acetaminophen (Tylenol Tab) 650 mg Q4H PRN PO 01/10/17 18:30 02/09/17 18:29 01/10/17 21:30 650 MG Ondansetron HCl (Zofran Inj) 4 mg Q6H PRN IV 01/10/17 18:30 02/09/17 18:29 Insulin Aspart (novoLOG ASPART) SLIDING SCALE If C... ACHS SC 01/11/17 00:00 02/10/17 00:00 01/12/17 21:14 2 UNITS Glucose (Glucose 40% Gel) 15-30 GRAMS 15 GRAMS... UD PRN PO 01/10/17 19:45 02/09/17 19:44 Glucose (Glucose Chew Tab) 4-8 Tablets 4 Tabl... UD PRN PO 01/10/17 19:45 02/09/17 19:44 Dextrose (Dextrose 50% 50ML Syringe) 25-50ML OF 50% DW IV FOR... UD PRN IV 01/10/17 19:45 02/09/17 19:44 Glucagon (Glucagon Inj) 1 mg UD PRN SQ 01/10/17 19:45 02/09/17 19:44 Amiodarone HCl (Cordarone Tab) 200 mg BID PO 01/10/17 21:00 02/09/17 20:59 01/12/17 20:04 200 MG Ascorbic Acid (Vitamin C Tab) 1,000 mg DAILY PO 01/11/17 09:00 02/10/17 08:59 01/12/17 08:29 1,000 MG Atorvastatin Calcium (Lipitor Tab) 10 mg DAILY PO 01/11/17 09:00 02/10/17 08:59 01/12/17 08:28 10 MG Calcitriol (Rocaltrol Cap) 0.25 mcg MoWeFr@0900 PO 01/11/17 09:00 02/10/17 08:59 01/11/17 07:45 0.25 MCG Cholecalciferol (Vitamin D Tab) 1,000 inter.unit DAILY PO 01/11/17 09:00 02/10/17 08:59 01/12/17 08:28 1,000 INTER.UNIT Clopidogrel Bisulfate (plAVix TAB) 75 mg DAILY PO 01/11/17 09:00 02/10/17 08:59 01/12/17 08:28 75 MG Finasteride (Proscar Tab) 5 mg DAILY PO 01/11/17 09:00 02/10/17 08:59 01/12/17 08:29 5 MG Fluticasone Propionate (Flonase Nasal [place]) 2 sprays DAILY RICHA 01/11/17 09:00 02/10/17 08:59 01/12/17 08:30 2 SPRAYS Levalbuterol (Xopenex Hfa Inhaler) 2 puffs Q4H PRN INH 01/10/17 20:00 02/09/17 19:59 Multivitamins/ Minerals (Multivitamin W/ Minerals Tab) 1 tab DAILY PO 01/11/17 09:00 02/10/17 08:59 01/12/17 08:28 1 TAB Senna/Docusate Sodium (Senokot S Tab) 1 tab DAILY PO 01/11/17 09:00 02/10/17 08:59 01/12/17 08:28 1 TAB Sertraline HCl (Zoloft Tab) 50 mg DAILY PO 01/11/17 09:00 02/10/17 08:59 01/12/17 08:28 50 MG Tamsulosin HCl (Flomax Cap) 0.4 mg DAILY PO 01/11/17 09:00 02/10/17 08:59 01/12/17 08:29 0.4 MG Warfarin Sodium (Coumadin Tab) 3 mg SuMoWeFrSa@1600 PO 01/11/17 16:00 02/10/17 15:59 01/12/17 16:43 3 MG Miscellaneous Information (Order Awaiting Action) 1 ea QS N/A 01/11/17 00:00 02/10/17 00:00 Lansoprazole (Prevacid Solutab) 30 mg DAILY PO 01/11/17 09:00 02/10/17 08:59 01/12/17 08:29 30 MG Oxycodone HCl (Roxicodone Immediate Rel Tab) 1 mg Q6 PRN PO 01/10/17 20:00 02/09/17 19:59 Warfarin Sodium (Coumadin Tab) 1.5 mg TuTh@1600 PO 01/15/17 16:00 02/14/17 15:59 Metoprolol Succinate (Toprol Xl Tab) 25 mg QAM PO 01/11/17 09:00 02/10/17 08:59 01/12/17 08:28 25 MG Ceftriaxone Sodium 1 gm/ Dextrose 50 ml @ 100 mls/hr Q24H IV 01/12/17 10:00 01/22/17 09:59 01/12/17 10:29 100 MLS/HR Sodium Chloride 1,000 ml @ 50 mls/hr Q20H IV 01/12/17 10:15 02/11/17 10:14 01/13/17 06:14 50 MLS/HR Pancrelipase ([place] [address] Unit) 1 cap UD PRN PO 01/12/17 11:15 02/11/17 11:14 01/13/17 07:44 1 CAP Last 24 Hours Test 01/12/17 11:36 01/12/17 15:56 01/12/17 20:46 01/13/17 05:49 Bedside Glucose 268 mg/dl 100 mg/dl 238 mg/dl White Blood Count 6.72 K/uL Red Blood Count 4.19 M/uL Hemoglobin 12.4 g/dL Hematocrit 37.7 % Mean Corpuscular Volume 90.0 fL Mean Corpuscular Hemoglobin 29.6 pg Mean Corpuscular Hemoglobin Concent 32.9 g/dl RDW Standard Deviation 60.0 fL RDW Coefficient of Variation 18.4 % Platelet Count 172 K/uL Mean Platelet Volume 10.1 fL Prothrombin Time 24.5 SECONDS Prothromb Time International Ratio 2.2 Sodium Level 139 mmol/L Potassium Level 3.6 mmol/L Chloride Level 103 mmol/L Carbon Dioxide Level 27 mmol/L Anion Gap 9.0 mmol/L Blood Urea Nitrogen 81 mg/dl Creatinine 3.40 mg/dl Est Creatinine Clear Calc Drug Dose 16.3 ml/min Estimated GFR () 18.4 Estimated GFR (Non- 15.9 BUN/Creatinine Ratio 23.9 Random Glucose 153 mg/dl Calcium Level 8.3 mg/dl Test 01/13/17 06:12 Bedside Glucose 145 mg/dl Assessment & Plan POA-knb-[id number]-creatinine improving and pt doing well. would like to continue iv fluids for another 24 hours and then stop them on saturday morning and likely be able to go home saturday if cleared by hospitalist. creatinine improving but not yet back to baseline. hypokalemia-k of 3.6 and will give an additional 40meq of kdur to help raise the k levels above 4.
[2017-01-13] MEDS ORDERED: POTASSIUM CHLORIDE 20 MEQ TABCR PO ONE (09:00)
[2017-01-13] MEDS: CEFTRIAXONE SOD INJ 1 GM in DEXTROSE 5% ADD-VANTAGE 50ML 50 ML IV SCH (09:23)
[2017-01-13] MEDS: ATORVASTATIN 10 MG TAB PO SCH (09:23)
[2017-01-13] MEDS: CHOLECALCIFEROL 1000 INTER.UNIT TAB PO SCH (09:23)
[2017-01-13] MEDS: TAMSULOSIN HCL 0.4 MG CAP PO SCH (09:24)
[2017-01-13] MEDS: SERTRALINE HCL 50 MG TAB PO SCH (09:24)
[2017-01-13] MEDS: ASCORBIC ACID 500 MG TAB PO SCH (09:24)
[2017-01-13] MEDS: LANSOPRAZOLE SOLUTAB 30 MG PO SCH (09:24)
[2017-01-13] MEDS: CLOPIDOGREL BISULFATE 75 MG TAB PO SCH (09:24)
[2017-01-13] MEDS: FINASTERIDE 5 MG TAB PO SCH (09:24)
[2017-01-13] MEDS: CEROVITE ADV FORMULA TAB PO SCH (09:24)
[2017-01-13] MEDS: DOCUSATE SODIUM/SENNA 50/8.6MG TAB PO SCH (09:24)
[2017-01-13] MEDS: METOPROLOL SUCC 25MG EXT REL TAB PO SCH (09:24)
[2017-01-13] MEDS: INSULIN ASPART 100 UNITS/ML 3 ML PEN SC SCH ×4 (09:26→21:31)
[2017-01-13] MEDS: FLUTICASONE PROPIONATE NA SPR 16 GM BTL NAE SCH (09:27)
[2017-01-13] MEDS: AMIODARONE 200 MG TAB PO SCH ×2 (09:27→19:52)
[2017-01-13 12:33] VITALS: BP 128/85; PULSE 73; TEMP 36.4; O2SAT 97
[2017-01-13 15:54] VITALS: BP 109/67; PULSE 75; TEMP 36.4; O2SAT 98
[2017-01-13] MEDS: WARFARIN SOD 3 MG TAB PO SCH (18:04)
--- NOTE | 2017-01-13 18:11 | Progress Note ---
Medicine Progress Note Date & Time of Visit: Jan 13, 2017 at 18:10. Subjective Patient states he feels well; off oxygen. His significant other was at the bedside. Denies any new complaints. No overnight events noted. Is anxious to go home. Has moved his bowels since yesterday and is feeling better. Objective Last 8 Hrs Date Time Temp Pulse Resp B/P (MAP) Pulse Ox O2 Delivery O2 Flow Rate FiO2 01/13/17 15:54 36.4 75 18 109/67 (81) 98 Room Air 01/13/17 12:33 36.4 73 18 128/85 (99) 97 Room Air 01/13/17 12:00 Room Air Physical Exam: GENERAL: Patient is in no acute distress. HEENT: No acute trauma, normocephalic, atraumatic, mucous membranes moist, no nasal congestion, no scleral icterus. NECK: No stridor, trachea is midline. LUNGS: Clear to auscultation bilaterally, no wheeze, no rhonchi, breath sounds equal. HEART: Without murmurs gallops or rubs, regular rate and rhythm. ABDOMEN: Soft, nontender, bowel sounds positive EXTREMITIES: No cyanosis or edema NEUROLOGIC: Oriented x 3, no acute motor or sensory deficits, no focal weakness. SKIN: No rash, no jaundice, no diaphoresis. Laboratory Results: Last 24 Hours Test 01/12/17 20:46 01/13/17 05:49 01/13/17 06:12 01/13/17 11:24 Bedside Glucose 238 mg/dl 145 mg/dl 198 mg/dl White Blood Count 6.72 K/uL Red Blood Count 4.19 M/uL Hemoglobin 12.4 g/dL Hematocrit 37.7 % Mean Corpuscular Volume 90.0 fL Mean Corpuscular Hemoglobin 29.6 pg Mean Corpuscular Hemoglobin Concent 32.9 g/dl RDW Standard Deviation 60.0 fL RDW Coefficient of Variation 18.4 % Platelet Count 172 K/uL Mean Platelet Volume 10.1 fL Prothrombin Time 24.5 SECONDS Prothromb Time International Ratio 2.2 Sodium Level 139 mmol/L Potassium Level 3.6 mmol/L Chloride Level 103 mmol/L Carbon Dioxide Level 27 mmol/L Anion Gap 9.0 mmol/L Blood Urea Nitrogen 81 mg/dl Creatinine 3.40 mg/dl Est Creatinine Clear Calc Drug Dose 16.3 ml/min Estimated GFR () 18.4 Estimated GFR (Non- 15.9 BUN/Creatinine Ratio 23.9 Random Glucose 153 mg/dl Calcium Level 8.3 mg/dl Test 01/13/17 16:36 Bedside Glucose 138 mg/dl Assessment & Plan MULTIPLE FALLS, POSSIBLE SYNCOPE: -likely multifactorial from hypovolemia and orthostasis with concurrent UTI and questionable viral GI illness -still has borderline low BP's even after IV fluids and holding lasix -check orthostatic VS -pacemaker interrogation unremarkable not showing any notable events -monitor in telemetry -CT head negative -X-ray of T-spine: degenerative changes but no fracture, x-ray C-spine: degenerative changes ACUTE RENAL FAILURE ON CKD STAGE IV: -Creatinine was 5.3, baseline in 2's (2.4 in 10/2016) -trending down slowly 4.1-->4.0-->3.4 today -was on IV fluids at slow rate x 2 L since admission -likely secondary to dehydration and UTI -Nephro consulted, appreciate recs; will resume gentle IV fluids for 24 hours more -Ruff attempted unsuccessfully x 2 in ER, but producing urine (? amount, was mixed with stool in ER) -CPK normal TROPONIN ELEVATION: -denies any additional cardiac symptoms -possibly related to renal failure -EKG shows paced rhythm -serial cardiac enzymes trended down HYPOXIA EPISODE: -unclear etiology -CXR: no acute findings -on 1L supplemental O2; wean as tolerated HYPOKALEMIA: -Potassium was 2.9-->3.4-->3.4 on recheck -magnesium normal -replete and recheck K TRANSAMINITIS: -AST, ALT, Alk phos acutely elevated, ? secondary to muscle injury from fall -Bilirubin WNL, abdominal exam benign -trending down -HIDA scan negative CHRONIC SYSTOLIC CHF: EF 30-35% -hypovolemic on admission -Lasix held -hydrated with gentle IV fluids, initially, now plans to restart -monitor closely with daily weights and I's and O's -will discuss lasix dose and fluid restriction with Nephro re: outpatient recs DYSPHAGIA: -reports chronic swallowing difficulty to solids -Speech therapy consulted -aspiration precautions -on regular consistency diet as he did not want mechanical ground consistency UNINTENTIONAL WEIGHT LOSS: -likely protein-calorie malnutrition -13 lb weight loss since 10/2016 per outpatient records -possibly secondary to UTI, or worsening renal function; possible viral gastroenteritis previously as well -appetite has improved considerably since admission -? if from acute illness or dysphagia or a neoplastic process DM TYPE II: -hold home meds Novolog 70/30 -monitor BSG AC HS -cover with correction scale Insulin + lantus CAD: S/P STENTS -cath in 2012 showed patent stents per Cardiology notes -no related symptoms at the moment -continue Plavix, statin, and beta mansi ATRIAL FIBRILLATION: -rate is controlled (paced) -continue amiodarone and metoprolol -INR: 2.2 -continue Coumadin -monitor INR Hx of SYMPTOMATIC BRADYCARDIA; S/P PACEMAKER -pacemaker interrogation as above -monitor on tele HYPERTENSION: -BP has been on the lower side -continue metoprolol with hold parameters Prior Hx of PANCREATIC CA: -S/p Whipple, chemo, radiation in 2005 -continue pancreatic enzymes BPH: -with history of urinary retention -continue tamsulosin and finasteride GERD: -continue PPI Current Inpatient Medications: Current Inpatient Medications Medications (Trade) Dose Ordered Sig/Quoc Route Start Time Stop Time Status Last Admin Dose Admin Acetaminophen (Tylenol Tab) 650 mg Q4H PRN PO 01/10/17 18:30 02/09/17 18:29 01/10/17 21:30 650 MG Ondansetron HCl (Zofran Inj) 4 mg Q6H PRN IV 01/10/17 18:30 02/09/17 18:29 Insulin Aspart (novoLOG ASPART) SLIDING SCALE If C... ACHS SC 01/11/17 00:00 02/10/17 00:00 01/13/17 12:56 6 UNITS Glucose (Glucose 40% Gel) 15-30 GRAMS 15 GRAMS... UD PRN PO 01/10/17 19:45 02/09/17 19:44 Glucose (Glucose Chew Tab) 4-8 Tablets 4 Tabl... UD PRN PO 01/10/17 19:45 02/09/17 19:44 Dextrose (Dextrose 50% 50ML Syringe) 25-50ML OF 50% DW IV FOR... UD PRN IV 01/10/17 19:45 02/09/17 19:44 Glucagon (Glucagon Inj) 1 mg UD PRN SQ 01/10/17 19:45 02/09/17 19:44 Amiodarone HCl (Cordarone Tab) 200 mg BID PO 01/10/17 21:00 02/09/17 20:59 01/13/17 09:27 200 MG Ascorbic Acid (Vitamin C Tab) 1,000 mg DAILY PO 01/11/17 09:00 02/10/17 08:59 01/13/17 09:24 1,000 MG Atorvastatin Calcium (Lipitor Tab) 10 mg DAILY PO 01/11/17 09:00 02/10/17 08:59 01/13/17 09:23 10 MG Calcitriol (Rocaltrol Cap) 0.25 mcg MoWeFr@0900 PO 01/11/17 09:00 02/10/17 08:59 01/11/17 07:45 0.25 MCG Cholecalciferol (Vitamin D Tab) 1,000 inter.unit DAILY PO 01/11/17 09:00 02/10/17 08:59 01/13/17 09:23 1,000 INTER.UNIT Clopidogrel Bisulfate (plAVix TAB) 75 mg DAILY PO 01/11/17 09:00 02/10/17 08:59 01/13/17 09:24 75 MG Finasteride (Proscar Tab) 5 mg DAILY PO 01/11/17 09:00 02/10/17 08:59 01/13/17 09:24 5 MG Fluticasone Propionate (Flonase Nasal [place]) 2 sprays DAILY RICHA 01/11/17 09:00 02/10/17 08:59 01/13/17 09:27 2 SPRAYS Levalbuterol (Xopenex Hfa Inhaler) 2 puffs Q4H PRN INH 01/10/17 20:00 02/09/17 19:59 Multivitamins/ Minerals (Multivitamin W/ Minerals Tab) 1 tab DAILY PO 01/11/17 09:00 02/10/17 08:59 01/13/17 09:24 1 TAB Senna/Docusate Sodium (Senokot S Tab) 1 tab DAILY PO 01/11/17 09:00 02/10/17 08:59 01/13/17 09:24 1 TAB Sertraline HCl (Zoloft Tab) 50 mg DAILY PO 01/11/17 09:00 02/10/17 08:59 01/13/17 09:24 50 MG Tamsulosin HCl (Flomax Cap) 0.4 mg DAILY PO 01/11/17 09:00 02/10/17 08:59 01/13/17 09:24 0.4 MG Warfarin Sodium (Coumadin Tab) 3 mg SuMoWeFrSa@1600 PO 01/11/17 16:00 02/10/17 15:59 01/12/17 16:43 3 MG Miscellaneous Information (Order Awaiting Action) 1 ea QS N/A 01/11/17 00:00 02/10/17 00:00 Lansoprazole (Prevacid Solutab) 30 mg DAILY PO 01/11/17 09:00 02/10/17 08:59 01/13/17 09:24 30 MG Oxycodone HCl (Roxicodone Immediate Rel Tab) 1 mg Q6 PRN PO 01/10/17 20:00 02/09/17 19:59 Warfarin Sodium (Coumadin Tab) 1.5 mg TuTh@1600 PO 01/15/17 16:00 02/14/17 15:59 Metoprolol Succinate (Toprol Xl Tab) 25 mg QAM PO 01/11/17 09:00 02/10/17 08:59 01/13/17 09:24 25 MG Ceftriaxone Sodium 1 gm/ Dextrose 50 ml @ 100 mls/hr Q24H IV 01/12/17 10:00 01/22/17 09:59 01/13/17 09:23 100 MLS/HR Sodium Chloride 1,000 ml @ 50 mls/hr Q20H IV 01/12/17 10:15 02/11/17 10:14 01/13/17 06:14 50 MLS/HR Pancrelipase ([place] [id number] Unit) 1 cap UD PRN PO 01/12/17 11:15 02/11/17 11:14 01/13/17 12:23 1 CAP
[2017-01-13 20:00] VITALS: BP 114/73; PULSE 76; TEMP 36.3; O2SAT 97
[2017-01-14 00:29] VITALS: BP 113/63; PULSE 82; TEMP 36.5; O2SAT 94
[2017-01-14] MEDS: SODIUM CHLORIDE 0.9% 1000ML 1,000 ML IV SCH (02:15)
[2017-01-14 04:15] VITALS: BP 112/59; PULSE 71; TEMP 36.8; O2SAT 94
[2017-01-14 07:10] LABS: MEAN CORPUSCULAR HEMOGLOBIN 29.7 pg (25-34); MEAN PLATELET VOLUME 9.5 fL (7.4-10.4); PLATELET COUNT 160 K/uL (130-400); RED BLOOD COUNT 4.11 M/uL (4.7-6.1); WHITE BLOOD COUNT 7.91 K/uL (4.8-10.8)
[2017-01-14 07:37] LABS: BUN/CREATININE RATIO 24.8 (10-20); CALCIUM 8.3 mg/dl (8.5-10.1); CREATININE 2.82 mg/dl (0.60-1.40); POTASSIUM 3.7 mmol/L (3.5-5.1)
[2017-01-14 07:41] VITALS: BP 137/66; PULSE 80; TEMP 37; O2SAT 97
[2017-01-14] MEDS: INSULIN ASPART 100 UNITS/ML 3 ML PEN SC SCH ×2 (08:14→12:19)
[2017-01-14] MEDS: CALCITRIOL 0.25 MCG CAP PO SCH (08:49)
[2017-01-14] MEDS: AMIODARONE 200 MG TAB PO SCH (08:49)
[2017-01-14] MEDS: ATORVASTATIN 10 MG TAB PO SCH (08:49)
[2017-01-14] MEDS: FLUTICASONE PROPIONATE NA SPR 16 GM BTL NAE SCH (08:49)
[2017-01-14] MEDS: SERTRALINE HCL 50 MG TAB PO SCH (08:49)
[2017-01-14] MEDS: FINASTERIDE 5 MG TAB PO SCH (08:50)
[2017-01-14] MEDS: CLOPIDOGREL BISULFATE 75 MG TAB PO SCH (08:50)
[2017-01-14] MEDS: DOCUSATE SODIUM/SENNA 50/8.6MG TAB PO SCH (08:50)
[2017-01-14] MEDS: TAMSULOSIN HCL 0.4 MG CAP PO SCH (08:50)
[2017-01-14] MEDS: LANSOPRAZOLE SOLUTAB 30 MG PO SCH (08:51)
[2017-01-14] MEDS: CEROVITE ADV FORMULA TAB PO SCH (08:51)
[2017-01-14] MEDS: ASCORBIC ACID 500 MG TAB PO SCH (08:51)
[2017-01-14] MEDS: CHOLECALCIFEROL 1000 INTER.UNIT TAB PO SCH (08:51)
[2017-01-14] MEDS: METOPROLOL SUCC 25MG EXT REL TAB PO SCH (08:52)
[2017-01-14] MEDS: CEFTRIAXONE SOD INJ 1 GM in DEXTROSE 5% ADD-VANTAGE 50ML 50 ML IV SCH (08:53)
[2017-01-14] MEDS: PANCRELIPASE PO PRN ×2 (08:54→12:09)
[2017-01-14 11:17] VITALS: BP 107/68; PULSE 79; TEMP 36.5; O2SAT 97
[2017-01-14] MEDS ORDERED: LSX80 PO (11:34)
[2017-01-14] MEDS ORDERED: CEFD300C3 PO (11:34)
--- NOTE | 2017-01-14 11:52 | Discharge Instructions ---
Discharge Instructions Date of Service Jan 14, 2017. Admission Reason for Admission: Arf, Syncope And Collapse Discharge Discharge Diagnosis / Problem: Acute renal failure, UTI, syncope Discharge Goals Goal(s): Therapeutic intervention Activity Recommendations Activity Limitations: resume your previous activity . Instructions / Follow-Up Instructions / Follow-Up Please see Dr. Ferrer this week on January 17 at 12:05PM for hospital follow up Please see Cardiology and Nephrology as already scheduled. Please have blood work done on January 21 to check your kidney function Current Hospital Diet Patient's current hospital diet: Diabetes Type 2 Diet, AHA Diet (Heart Healthy) , Renal Diet Discharge Diet Recommended Diet: AHA Diet (Heart Healthy), Diabetes Type 2 Diet Pending Studies Studies pending at discharge: no Medical Emergencies . Who to Call and When: Medical Emergencies: If at any time you feel your situation is an emergency, please call 911 immediately. . Non-Emergent Contact Non-Emergency issues call your: Primary Care Provider . . "Provider Documentation" section prepared by Millie Alegria. . VTE Core Measure Inpt VTE Proph given/why not?: Warfarin (Coumadin)
[2017-01-14 12:31] VITALS: BP 107/68; PULSE 79; TEMP 36.5; O2SAT 97
--- NOTE | 2017-01-14 12:34 | Nephrology Progress Note ---
Nephrology Progress Note Date of Service: Jan 14, 2017. Subjective 81 yo male with regis/ecoli uti who is clinically improving. pt feels good. tolerating the iv fluids well. no complaints. Objective Date Time Temp Pulse Resp B/P (MAP) Pulse Ox O2 Delivery O2 Flow Rate FiO2 01/14/17 12:00 Room Air 01/14/17 11:17 36.5 79 18 107/68 (81) 97 Room Air 01/14/17 08:00 Room Air 01/14/17 07:41 37.0 80 20 137/66 (89) 97 Room Air 01/14/17 04:15 36.8 71 18 112/59 (76) 94 Room Air 01/14/17 04:00 Room Air 01/14/17 00:29 36.5 82 17 113/63 (80) 94 Room Air 01/14/17 00:00 Room Air 01/13/17 20:00 36.3 76 20 114/73 (87) 97 Room Air 01/13/17 20:00 Room Air 01/13/17 16:00 Room Air 01/13/17 15:54 36.4 75 18 109/67 (81) 98 Room Air 01/13/17 12:33 36.4 73 18 128/85 (99) 97 Room Air Physical Exam: General-aaox3 Eyes-no scleral icterus ENT-mmm Neck-supple Lungs-cta Heart-regular Abdomen-bs+ s/nt/nd Extremities-no c/c/e Neuro-nonfocal Current Inpatient Medications Medications (Trade) Dose Ordered Sig/Quoc Route Start Time Stop Time Status Last Admin Dose Admin Acetaminophen (Tylenol Tab) 650 mg Q4H PRN PO 01/10/17 18:30 02/09/17 18:29 01/10/17 21:30 650 MG Ondansetron HCl (Zofran Inj) 4 mg Q6H PRN IV 01/10/17 18:30 02/09/17 18:29 Insulin Aspart (novoLOG ASPART) SLIDING SCALE If C... ACHS SC 01/11/17 00:00 02/10/17 00:00 01/14/17 12:19 5 UNITS Glucose (Glucose 40% Gel) 15-30 GRAMS 15 GRAMS... UD PRN PO 01/10/17 19:45 02/09/17 19:44 Glucose (Glucose Chew Tab) 4-8 Tablets 4 Tabl... UD PRN PO 01/10/17 19:45 02/09/17 19:44 Dextrose (Dextrose 50% 50ML Syringe) 25-50ML OF 50% DW IV FOR... UD PRN IV 01/10/17 19:45 02/09/17 19:44 Glucagon (Glucagon Inj) 1 mg UD PRN SQ 01/10/17 19:45 02/09/17 19:44 Amiodarone HCl (Cordarone Tab) 200 mg BID PO 01/10/17 21:00 02/09/17 20:59 01/14/17 08:49 200 MG Ascorbic Acid (Vitamin C Tab) 1,000 mg DAILY PO 01/11/17 09:00 02/10/17 08:59 01/14/17 08:51 1,000 MG Atorvastatin Calcium (Lipitor Tab) 10 mg DAILY PO 01/11/17 09:00 02/10/17 08:59 01/14/17 08:49 10 MG Calcitriol (Rocaltrol Cap) 0.25 mcg MoWeFr@0900 PO 01/11/17 09:00 02/10/17 08:59 01/14/17 08:49 0.25 MCG Cholecalciferol (Vitamin D Tab) 1,000 inter.unit DAILY PO 01/11/17 09:00 02/10/17 08:59 01/14/17 08:51 1,000 INTER.UNIT Clopidogrel Bisulfate (plAVix TAB) 75 mg DAILY PO 01/11/17 09:00 02/10/17 08:59 01/14/17 08:50 75 MG Finasteride (Proscar Tab) 5 mg DAILY PO 01/11/17 09:00 02/10/17 08:59 01/14/17 08:50 5 MG Fluticasone Propionate (Flonase Nasal [place]) 2 sprays DAILY RICHA 01/11/17 09:00 02/10/17 08:59 01/14/17 08:49 2 SPRAYS Levalbuterol (Xopenex Hfa Inhaler) 2 puffs Q4H PRN INH 01/10/17 20:00 02/09/17 19:59 Multivitamins/ Minerals (Multivitamin W/ Minerals Tab) 1 tab DAILY PO 01/11/17 09:00 02/10/17 08:59 01/14/17 08:51 1 TAB Senna/Docusate Sodium (Senokot S Tab) 1 tab DAILY PO 01/11/17 09:00 02/10/17 08:59 01/14/17 08:50 1 TAB Sertraline HCl (Zoloft Tab) 50 mg DAILY PO 01/11/17 09:00 02/10/17 08:59 01/14/17 08:49 50 MG Tamsulosin HCl (Flomax Cap) 0.4 mg DAILY PO 01/11/17 09:00 02/10/17 08:59 01/14/17 08:50 0.4 MG Warfarin Sodium (Coumadin Tab) 3 mg SuMoWeFrSa@1600 PO 01/11/17 16:00 02/10/17 15:59 01/13/17 18:04 3 MG Miscellaneous Information (Order Awaiting Action) 1 ea QS N/A 01/11/17 00:00 02/10/17 00:00 01/14/17 08:00 1 EA Lansoprazole (Prevacid Solutab) 30 mg DAILY PO 01/11/17 09:00 02/10/17 08:59 01/14/17 08:51 30 MG Oxycodone HCl (Roxicodone Immediate Rel Tab) 1 mg Q6 PRN PO 01/10/17 20:00 02/09/17 19:59 Warfarin Sodium (Coumadin Tab) 1.5 mg TuTh@1600 PO 01/15/17 16:00 02/14/17 15:59 Metoprolol Succinate (Toprol Xl Tab) 25 mg QAM PO 01/11/17 09:00 02/10/17 08:59 01/14/17 08:52 25 MG Ceftriaxone Sodium 1 gm/ Dextrose 50 ml @ 100 mls/hr Q24H IV 01/12/17 10:00 01/22/17 09:59 01/14/17 08:53 100 MLS/HR Pancrelipase ([place] [id number] Unit) 1 cap UD PRN PO 01/12/17 11:15 02/11/17 11:14 01/14/17 12:09 1 CAP Last 24 Hours Test 01/13/17 16:36 01/13/17 21:02 01/14/17 06:40 Bedside Glucose 138 mg/dl 144 mg/dl 143 mg/dl White Blood Count 7.91 K/uL Red Blood Count 4.11 M/uL Hemoglobin 12.2 g/dL Hematocrit 37.0 % Mean Corpuscular Volume 90.0 fL Mean Corpuscular Hemoglobin 29.7 pg Mean Corpuscular Hemoglobin Concent 33.0 g/dl RDW Standard Deviation 61.1 fL RDW Coefficient of Variation 18.5 % Platelet Count 160 K/uL Mean Platelet Volume 9.5 fL Sodium Level 141 mmol/L Potassium Level 3.7 mmol/L Chloride Level 107 mmol/L Carbon Dioxide Level 25 mmol/L Anion Gap 9.0 mmol/L Blood Urea Nitrogen 70 mg/dl Creatinine 2.82 mg/dl Est Creatinine Clear Calc Drug Dose 19.7 ml/min Estimated GFR () 23.1 Estimated GFR (Non- 19.9 BUN/Creatinine Ratio 24.8 Random Glucose 168 mg/dl Calcium Level 8.3 mg/dl Assessment & Plan ARL-[id number]-creatinine improving. will stop the iv fluids this morning. ok from renal perspective to go home. would restart lasix at a lower dose and follow volume status closely. recheck bmp again in a week.
[2017-01-15] MEDS ORDERED: WARFARIN PO SCH (16:00)
== END 2017-01-14 13:23 | disposition home or self-care (01) | DRG 683 ==
LOC: EDBD 15:22 → C.EDA 15:24 → C.2T 18:06 → ENRESERV 18:52
PROVIDERS: ADMIT Hospitalist; ATTEND Internal Medicine
DX: N17.9 Acute kidney failure, unspecified (principal); N39.0 Urinary tract infection, site not specified; I50.22 Chronic systolic (congestive) heart failure; I13.0 Hypertensive heart and chronic kidney disease with heart failure and stage 1 through stage 4 chronic kidney disease, or unspecified chronic kidney disease; R55 Syncope and collapse; R51 Headache; M54.2 Cervicalgia; W19.XXXA Unspecified fall, initial encounter; Y92.002 Bathroom of unspecified non-institutional (private) residence as the place of occurrence of the external cause; Y92.003 Bedroom of unspecified non-institutional (private) residence as the place of occurrence of the external cause; R29.6 Repeated falls; E86.1 Hypovolemia; E87.6 Hypokalemia; E86.0 Dehydration; R09.02 Hypoxemia; R74.0 Nonspecific elevation of levels of transaminase and lactic acid dehydrogenase [LDH]; R74.8 Abnormal levels of other serum enzymes; R13.10 Dysphagia, unspecified; K59.00 Constipation, unspecified; I25.10 Atherosclerotic heart disease of native coronary artery without angina pectoris; I48.91 Unspecified atrial fibrillation; E11.22 Type 2 diabetes mellitus with diabetic chronic kidney disease; J44.9 Chronic obstructive pulmonary disease, unspecified; N18.4 Chronic kidney disease, stage 4 (severe); I69.334 Monoplegia of upper limb following cerebral infarction affecting left non-dominant side; N25.0 Renal osteodystrophy; N40.0 Benign prostatic hyperplasia without lower urinary tract symptoms; K21.9 Gastro-esophageal reflux disease without esophagitis; E78.5 Hyperlipidemia, unspecified; F32.9 Major depressive disorder, single episode, unspecified; R63.4 Abnormal weight loss; Z68.29 Body mass index [BMI] 29.0-29.9, adult; Z95.5 Presence of coronary angioplasty implant and graft; Z95.0 Presence of cardiac pacemaker; Z96.649 Presence of unspecified artificial hip joint; Z87.891 Personal history of nicotine dependence; Z79.02 Long term (current) use of antithrombotics/antiplatelets; Z79.51 Long term (current) use of inhaled steroids; Z79.4 Long term (current) use of insulin; Z79.01 Long term (current) use of anticoagulants; Z79.891 Long term (current) use of opiate analgesic; Z79.899 Other long term (current) drug therapy

== ENCOUNTER 2017-05-31 09:33 | Inpatient (IN) | payer OTHER ==
[~2017-05-31] VITALS: Ht 165.1 cm; Wt 83.9 kg
[~2017-05-31 09:33] MED LIST changes: +ATOR10TA82 PO; -ATOR10TA88 PO; -CHOL1000 PO; +CHOL100010 PO; +LEVA45AE INH; -LEVAAER2 INH; +LSX/80 PO; -LSX80 PO; +MCRK/10 PO; -METO50TA7 PO; +METO50TA8 PO; -MULT-618 PO; +MULT-845 PO; -NITR0.4S UT; -NXM/40 PO; +OXYC1CAP5 PO; -PANC1200 PO; +PANCCAP2 PO; -SERT25TA PO; +TAMS0.4C38 PO; -TAMS0.4C59 PO; +VNTHFA/IN INH; +ZLF50 PO
[2017-05-31 10:14] LABS: BASO % 0.4 %; BASO ABS # 0.04 K/uL (0-0.2); EOS % 3.4 %; EOS ABS # 0.31 K/uL (0-0.5); HEMATOCRIT 35.8 % (42-52); HEMOGLOBIN 11.7 g/dL (14.0-18.0); IG# 0.05 K/uL (0.00-0.02); LYMPH % 14.9 %; LYMPH ABS # 1.36 K/uL (1.2-3.4); MEAN CELL VOLUME 98.9 fL (80-100); MEAN CORPUSCULAR HEMOGLOBIN 32.3 pg (25-34); MEAN CORPUSCULAR HGB CONC 32.7 g/dl (32-36); MEAN PLATELET VOLUME 9.6 fL (7.4-10.4); MONO % 7.4 %; MONO ABS # 0.68 K/uL (0.11-0.59); NEUT % 73.4 %; NEUT ABS # 6.71 K/uL (1.4-6.5); PLATELET COUNT 182 K/uL (130-400); RED CELL DISTRIBUTION WIDTH CV 16.7 % (11.5-14.5); RED CELL DISTRIBUTION WIDTH SD 60.1 fL (36.4-46.3); WHITE BLOOD COUNT 9.15 K/uL (4.8-10.8)
--- NOTE | 2017-05-31 10:16 | EMERGENCY ROOM VISIT NOTE ---
History Report prepared by Masoud: Ed Arango Under the Supervision of: Dr. Cody Estrada D.O. First contact with patient: 09:53 Chief Complaint: SHORTNESS OF BREATH Stated Complaint: GAINING WEIGHT,BREATHING HARD,ALMOST FALLING Nursing Triage Summary: Pt presents with S/O. Pt reports SOB and 10 lb weight gain over the past 3-4 days. Almost fell last night. Generalized weakness. Pt has a pacer/defib. Epigastric pain. Cough of white sputum. Pt reports pain/difficulty swallowing. History of Present Illness The patient is an 82 year old male who presents to the Emergency Room with complaints of shortness of breath and sporadic weight gain that the patient has been experiencing for the past 4 days. The patient notes that he also has a dry cough that is non-productive. The notes that his weight has been up and down lately, but ultimately has gained 10 pounds in the past week. He was hospitalized in March for weight gain and fluid accumulation. The patient notes that he is experiencing some mild chest pain in the center of his chest. This pain is there currently. Source of History: patient, spouse/significant other Onset: 4 days Position: other (Respiratory) Quality: other (SOB) Associated Symptoms: + cough, + chest pain Note: weight gain Review of Systems See HPI for pertinent positives & negatives. A total of 10 systems reviewed and were otherwise negative. Past Medical & Surgical Medical Problems: (1) Afib (2) ARF (acute renal failure) (3) BPH (benign prostatic hyperplasia) (4) CAD (coronary artery disease) (5) CHF (congestive heart failure) (6) CKD (chronic kidney disease), stage III (7) COPD (chronic obstructive pulmonary disease) (8) Current use of jail anticoagulation (9) CVA (cerebral vascular accident) (10) Depression (11) DM2 (diabetes mellitus, type 2) (12) GERD (gastroesophageal reflux disease) (13) HLD (hyperlipidemia) (14) HTN (hypertension) (15) Pancreatic cancer (16) Pancreatic insufficiency (17) Pseudomonas septicemia (18) Syncope (19) Syncope and collapse (20) Volume overload Surgical Problems: (1) H/O cervical spine surgery (2) H/O hernia repair (3) H/O percutaneous transluminal coronary angioplasty (4) History of cardiac cath (5) History of hip replacement (6) S/P cholecystectomy (7) S/P hip replacement (8) Stented coronary artery Family History Diabetes mellitus FH: cancer FH: gallbladder disease Heart disease Hypertension Kidney disease Lung disease Social History Smoking Status: Never Smoker Drug Use: none Marital Status: in relationship Housing Status: lives with family Occupation Status: retired Current/Historical Medications Scheduled Amiodarone HCl (Amiodarone HCl), 200 MG PO DAILY Ascorbic Acid (Ascorbic Acid), 1,000 MG PO DAILY Atorvastatin (Lipitor), 10 MG PO DAILY Calcitriol (Rocaltrol Cap), 0.25 MCG PO MWF Cholecalciferol (Vitamin D), 1,000 UNITS PO DAILY Clopidogrel Bisulfate (Plavix), 75 MG PO DAILY Esomeprazole Magnesium (Esomeprazole Magnesium), 1 CAP PO DAILY Finasteride (Proscar), 5 MG PO DAILY Fluticasone Furoate-Vilanterol (Breo Ellipta), 1 PUFF INH DAILY Fluticasone Propionate (Nasal) (Flonase Allergy Relief), 2 SPRAY RICHA DAILY Furosemide (Lasix), 80 MG PO BID Insulin Aspart 70/30 (Novolog Mix 70/30), 28 SC am Insulin Aspart 70/30 (Novolog Mix 70/30), 12 SC PM Metoprolol Succ (Toprol Xl) (Toprol-Xl), 50 MG PO DAILY Multiple Vitamins W/ Minerals (Centrum Silver Adult 50+), 1 TAB PO DAILY Pancrelipase (Lipase-Protease- (Pancreaze), 1 CAP PO QID Potassium Chloride (K-Tabs), 10 MEQ PO DAILY Sennosides-Docusate Sodium ([place]-S), 1 TAB PO DAILY Sertraline HCl (Sertraline HCl), 50 MG PO DAILY Tamsulosin Hcl (Flomax), 0.4 MG PO DAILY Warfarin Sod (Coumadin), 1.5 MG PO UD Warfarin Sod (Coumadin), 3 MG PO UD Scheduled PRN Albuterol Hfa (Ventolin Hfa), 2-4 PUFFS INH Q6H PRN for Shortness of Breath Levalbuterol Tartrate (Levalbuterol Tartrate Hfa), 2 PUFFS INH Q4H PRN for SOB, cough, wheezing Oxycodone Hcl (Oxycodone Hcl), 1 TAB PO Q6 PRN for Pain Allergies Coded Allergies: Lisinopril (Verified Allergy, Intermediate, RASH, 05/31/17) Spironolactone (Verified Allergy, Unknown, unkn, 05/31/17) Zolpidem (Verified Adverse Reaction, Mild, HALLUCINATIONS, 05/31/17) Physical Exam Vital Signs Date Time Temp Pulse Resp B/P (MAP) Pulse Ox O2 Delivery O2 Flow Rate FiO2 05/31/17 13:53 88 19 99/64 99 05/31/17 13:02 99/64 05/31/17 12:35 88 19 05/31/17 12:32 117/66 05/31/17 12:05 90 14 05/31/17 12:02 124/65 05/31/17 11:35 86 19 99 05/31/17 11:30 97 14 91 05/31/17 11:01 116/54 05/31/17 11:00 91 13 96 05/31/17 10:04 98 Nasal Cannula 2.0 05/31/17 10:03 92 Room Air 05/31/17 09:59 82 05/31/17 09:35 36.6 81 22 110/71 96 Room Air Physical Exam GENERAL: Patient is awake, alert, and in no acute distress. Patient is resting comfortably and showing no signs of anxiety EYES: The conjunctivae are clear. The pupils are round and reactive. EARS, NOSE, MOUTH AND THROAT: The nose is without any evidence of any deformity. Mucous membranes are moist tongue is midline NECK: The neck is nontender and supple. RESPIRATORY: Normal respiratory effort is noted there is no evidence of wheezing rhonchi or rales. Breath sounds were diminished at both bases, no conversational dyspnea or tachypnea noted on exam. CARDIOVASCULAR: Regular rate and rhythm noted there no rubs or gallops normal S1 normal S2. Ectopy noted to auscultation, no definite murmur appreciated. GASTROINTESTINAL: The abdomen is soft. Bowel sounds are present in all quadrants. Abdomen is nontender PELVIS: The Pelvis is stable. No tenderness to palpation is noted. BACK: No midline tenderness or or step-off noted range of motion in flexion extension as well as rotation no signs of muscle spasm noted MUSCULOSKELETAL/EXTREMITIES: There is no evidence of gross deformity full range of motion is noted in the hips and shoulders SKIN: There is no obvious evidence of any rash. There are no petechiae, pallor or cyanosis noted. Pedal edema bilaterally. NEUROLOGIC: Patient is awake alert and oriented x3. Medical Decision & Procedures ER Provider Diagnostic Interpretation: Radiology results as stated below per my review and radiologist interpretation: CHEST ONE VIEW PORTABLE CLINICAL HISTORY: Respiratory distress. COMPARISON STUDY: 02/03/2017 FINDINGS: The heart is enlarged. There is a left subclavian pacer/defibrillator present. There is slight prominence the perihilar markings on the right, likely secondary to mild asymmetric pulmonary vascular congestion. There is no lobar consolidation.[ IMPRESSION: Cardiomegaly. Suspected mild asymmetric pulmonary vascular congestion. No evidence of lobar consolidation Electronically signed by: Mohsen Dobbs M.D. 05/31/2017 10:45 AM Dictated Date/Time: 05/31/2017 10:44 AM Laboratory Results 05/31/17 10:00 Red Blood Count 3.62, Mean Corpuscular Volume 98.9, Mean Corpuscular Hemoglobin 32.3, Mean Corpuscular Hemoglobin Concent 32.7, Mean Platelet Volume 9.6, Neutrophils (%) (Auto) 73.4, Lymphocytes (%) (Auto) 14.9, Monocytes (%) (Auto) 7.4, Eosinophils (%) (Auto) 3.4, Basophils (%) (Auto) 0.4, Neutrophils # (Auto) 6.71, Lymphocytes # (Auto) 1.36, Monocytes # (Auto) 0.68, Eosinophils # (Auto) 0.31, Basophils # (Auto) 0.04 05/31/17 10:00 Test 05/31/17 10:00 05/31/17 11:45 White Blood Count 9.15 K/uL (4.8-10.8) Red Blood Count 3.62 M/uL (4.7-6.1) Hemoglobin 11.7 g/dL (14.0-18.0) Hematocrit 35.8 % (42-52) Mean Corpuscular Volume 98.9 fL (80-100) Mean Corpuscular Hemoglobin 32.3 pg (25-34) Mean Corpuscular Hemoglobin Concent 32.7 g/dl (32-36) Platelet Count 182 K/uL (130-400) Mean Platelet Volume 9.6 fL (7.4-10.4) Neutrophils (%) (Auto) 73.4 % Lymphocytes (%) (Auto) 14.9 % Monocytes (%) (Auto) 7.4 % Eosinophils (%) (Auto) 3.4 % Basophils (%) (Auto) 0.4 % Neutrophils # (Auto) 6.71 K/uL (1.4-6.5) Lymphocytes # (Auto) 1.36 K/uL (1.2-3.4) Monocytes # (Auto) 0.68 K/uL (0.11-0.59) Eosinophils # (Auto) 0.31 K/uL (0-0.5) Basophils # (Auto) 0.04 K/uL (0-0.2) RDW Standard Deviation 60.1 fL (36.4-46.3) RDW Coefficient of Variation 16.7 % (11.5-14.5) Immature Granulocyte % (Auto) 0.5 % Immature Granulocyte # (Auto) 0.05 K/uL (0.00-0.02) Prothrombin Time 38.5 SECONDS (9.0-12.0) Prothromb Time International Ratio 3.8 (0.9-1.1) Activated Partial Thromboplast Time 45.7 SECONDS (21.0-31.0) Partial Thromboplastin Ratio 1.8 Anion Gap 7.0 mmol/L (3-11) Est Creatinine Clear Calc Drug Dose 20.0 ml/min Estimated GFR () 23.0 Estimated GFR (Non- 19.9 BUN/Creatinine Ratio 13.1 (10-20) Calcium Level 8.2 mg/dl (8.5-10.1) Total Bilirubin 0.5 mg/dl (0.2-1) Aspartate Amino Transf (AST/SGOT) 15 U/L (15-37) Alanine Aminotransferase (ALT/SGPT) 21 U/L (12-78) Alkaline Phosphatase 116 U/L (45-117) Troponin I 0.217 ng/ml (0-0.045) Pro-B-Type Natriuretic Peptide 46815 pg/ml (0-1800) Total Protein 7.6 gm/dl (6.4-8.2) Albumin 3.4 gm/dl (3.4-5.0) Globulin 4.2 gm/dl (2.5-4.0) Albumin/Globulin Ratio 0.8 (0.9-2) Urine Color YELLOW Urine Appearance CLEAR (CLEAR) Urine pH 5.0 (4.5-7.5) Urine Specific [place] 1.012 (1.000-1.030) Urine Protein NEG (NEG) Urine Glucose (UA) NEG (NEG) Urine Ketones NEG (NEG) Urine Occult Blood NEG (NEG) Urine Nitrite NEG (NEG) Urine Bilirubin NEG (NEG) Urine Urobilinogen NEG (NEG) Urine Leukocyte Esterase NEG (NEG) Laboratory results per my review. ECG Per My Interpretation Indication: SOB/dyspnea Rate (beats per minute): 82 Rhythm: other (Ventriculalry paced) Findings: PVC (Frequent), paced rhythm, other (No [place] atrial beats noted. ) Comparison ECG Date: 02/05/2017 Change: PVCs are now present. No other significant change ED Course 0958: The patient was evaluated in room C9. A complete history and physical examination were performed. 1151: I discussed the case with Dr. Ahsan Posey. She will evaluate the patient for further treatment. Medical Decision Differential diagnosis: Etiologies such as infections, reactive airway disease, pneumonia, pneumothorax , COPD, CHF, cardiac ischemia, pulmonary embolism, musculoskeletal, gastrointestinal, as well as others were entertained. Nursing notes reviewed. The patient's previous electronic medical records reviewed. Additional history is obtained from the patient's significant other. The patient is an 82-year-old male who presented to the emergency department for an evaluation of difficulty breathing. The patient has a history of pulmonary edema. He was found to have an elevation in his creatinine as well as an elevation in his troponin. The patient appears to have an elevation in these numbers at baseline. It is difficult to determine if this is an acute process at this time. I discussed the patient's laboratory and radiographic studies with him and his significant other. Because of his symptoms I also discussed this case with the on-call [facility] [address] hospitalist group. They have agreed to evaluate the patient in the emergency department for further management and disposition. Medication Reconcilliation Current Medication List: was personally reviewed by me Blood Pressure Screening Patient's blood pressure: Normal blood pressure Consults Time Called: 1145 Consulting Physician: Dr. Ahsan Posey Returned Call: 1151 I discussed the case with Dr. Ahsan Posey. She will evaluate the patient for further treatment. Impression Primary Impression: Pulmonary edema Additional Impressions: SOB (shortness of breath) Elevated troponin Scribe Attestation The scribe's documentation has been prepared under my direction and personally reviewed by me in its entirety. I confirm that the note above accurately reflects all work, treatment, procedures, and medical decision making performed by me. Departure Information Dispostion Being Evaluated By Hospitalist Referrals Jadiel Ferrer M.D. (PCP) Patient Instructions My [facility] Problem Qualifiers Primary Impression: Pulmonary edema Chronicity: acute Qualified Codes: J81.0 - Acute pulmonary edema
[2017-05-31] MEDS ORDERED: ESOM1CAP34 PO (10:25)
[2017-05-31 10:33] LABS: ALBUMIN 3.4 gm/dl (3.4-5.0); CALCIUM 8.2 mg/dl (8.5-10.1); CREATININE 2.81 mg/dl (0.60-1.40); POTASSIUM 3.7 mmol/L (3.5-5.1)
[2017-05-31 10:37] LABS: PTT PATIENT 45.7 SECONDS (21.0-31.0)
[2017-05-31 10:43] LABS: TOTAL PROTEIN 7.6 gm/dl (6.4-8.2)
--- NOTE | 2017-05-31 10:46 | DIAGNOSTIC IMAGING REPORT ---
CHEST ONE VIEW PORTABLE CLINICAL HISTORY: Respiratory distress. COMPARISON STUDY: 02/03/2017 FINDINGS: The heart is enlarged. There is a left subclavian pacer/defibrillator present. There is slight prominence the perihilar markings on the right, likely secondary to mild asymmetric pulmonary vascular congestion. There is no lobar consolidation.[ IMPRESSION: Cardiomegaly. Suspected mild asymmetric pulmonary vascular congestion. No evidence of lobar consolidation Electronically signed by: Mohsen Dobbs M.D. 05/31/2017 10:45 AM Dictated Date/Time: 05/31/2017 10:44 AM
[2017-05-31] MEDS ORDERED: OXYC-164 PO (12:43)
[2017-05-31 12:57] LABS: INR 3.8 (0.9-1.1)
[2017-05-31] MEDS ORDERED: ALBUTEROL HFA 8 GM INHALER INH PRN (13:00)
[2017-05-31] MEDS ORDERED: MAGNESIUM HYDROXIDE SUSP 30 ML UDC PO PRN (13:15)
[2017-05-31] MEDS ORDERED: NITROGLYCERIN 0.4 MG SL PER TAB CHARGE SL PRN (13:15)
[2017-05-31] MEDS ORDERED: POLYETHYLENE (MIRALAX) 17 GM PACK PO PRN (13:15)
--- NOTE | 2017-05-31 13:39 | Progress Note ---
Progress Note Date of Service May 31, 2017. Progress Note ATTENDING ADDENDUM : Patient seen and examined, care coordinated with Tammy English PA-C this is a complicated patient with past medical history of severe ischemic cardiomyopathy EF of 30% as per last echo in 2015, status post AICD placement, history of A. ab on Coumadin, history of CKD stage IV, was in dialysis now recovered presents to the ER with complaint of shortness of breath, dyspnea on exertion, significant weight gain approximately 10 pounds in last 4 days. Patient was recently seen by his cardiology he is been on Lasix 80 mg twice daily, patient reports taking medication as directed but noted persistent weight gain approximately 2 pounds daily in the last 4 days , developed significant dyspnea on exertion, orthopnea dizzy spell when standing up, mention of having occasional chest heaviness, felt pain at the AICD site, report of AICD firing approximately 2 weeks ago next PHYSICAL EXAM : General: Chronically ill appearing elderly male, in distress for shortness of breath HEENT: Sclera nonicteric, pupils equal reactive to light extraocular muscles intact, JVD could not be assessed Heart: Regular no murmur auscultated Lungs: Diminished breath sound, could not auscultate any wheezes or rales Abdomen: Distended, positive ascites nontender, bowel sounds active Extremities: Trace bilateral lower extremity edema Neuro: No focal neurological deficit noted ASSESSMENT AND PLAN: 1. Acute decompensated CHF with severe systolic dysfunction and ischemic cardiomyopathy Presented with significant volume overload, weight gain, shortness of breath, orthopnea Chest x-ray shows pulmonary congestion proBNP elevated 19,613 Ordered for IV Lasix 80 mg now And will be continued IV Lasix 80 mg every 8 hours Order for echo Cardiology consult Case discussed with on-call cardiology Dr. Winter We will monitor volume status, daily weight, intake and output Patient refused to have a Ruff catheter , because of difficult insertion in the past due to BPH 2. Chest pain rule out ACS Patient reports of intermittent chest pain, associated with shortness of breath report of AICD firing approximately 2 weeks ago, currently chest pain-free Borderline elevation of troponin possible for cardiac strain due to decompensated CHF, and JOSUÉ ON CKD stage IV We will monitor serial cardiac markers Resting echo ordered Ordered for AICD interrogation Patient will be continued on her cardiac meds-Plavix beta mansi, statin, Cardiology follow-up 3. Acute kidney injury on CKD stage IV Baseline creatinine approximately 2.3-2.5 Acute kidney injury possible secondary to decompensated heart failure We will continue IV Lasix 80 milligrams 3 times daily Monitor daily labs Nephrology consulted, patient follows with Dr. Sifuentes 4. Prolonged QTC QTC is more than 500 Avoid medication causing QTC prolongation, no Zofran, we will hold the patient' s SSRI, daily EKG, monitor basic metabolic panel and mg level 5. History of chronic A. fib on Coumadin INR elevated 3.8 No evidence of bleeding Hold Coumadin Daily PT/INR, resume Coumadin when INR is less than 3 We will continue patient's amiodarone (monitor daily EKG for prolonged QTC ), cardiology following CODE STATUS; DNR/DNI-discussed with patient Disposition: Lives at home with , has significant functional decline secondary to shortness of breath CHF decompensation, PT OT eval prior to discharge Social service consulted for discharge planning Please refer to for the documentation by Ashwini English PA-C for further discussion of other chronic issues. Shelley Foreman MD
[2017-05-31] MEDS ORDERED: GLUCOSE 10 TABS/TUBE PO PRN (13:45)
[2017-05-31] MEDS ORDERED: OXYCODONE HCL IR 5 MG TAB (IMMEDIATE RELEASE) PO PRN (13:45)
[2017-05-31] MEDS ORDERED: DEXTROSE 50% 50 ML SYR IV PRN (13:45)
[2017-05-31] MEDS ORDERED: GLUCAGON FOR INJ 1 MG VIAL SQ PRN (13:45)
[2017-05-31] MEDS ORDERED: GLUCOSE 40% GEL 15 GM TUBE PO PRN (13:45)
--- NOTE | 2017-05-31 13:45 | History and Physical ---
History & Physical Date & Time of Service: May 31, 2017 at 12:31 Chief Complaint: Gaining Weight,Breathing Hard,Almost Falling Primary Care Physician: Deana Cuello D.O. 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 Can't walk a few steps secondary to SOB. Now feeling SOB with sitting. Using 2 pillows secondary to orthopnea. Sometimes at night with cough clear phlegm. reports pt gained 8-10 pounds in past 4 days. Feels legs are chronically swollen. Has chronic "stuffy nose". Denies any dietary discretions. reports pt been taking lasix BID. Pt states 2 weeks ago felt ICD fire. Been feeling some chest heaviness. Uses rescue inhaler a couple of times a day, denies increased use. Reports pt eating and drinking ok, did eat breakfast this morning. Denies fever/chills, diaphoresis, N/V/D/C, palpitations, abdominal pain , urinary symptoms. 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 Status: Chronic (8) CVA (cerebral vascular accident) Status: Chronic (9) Depression Status: Chronic (10) DM2 (diabetes mellitus, type 2) Status: Chronic (11) GERD (gastroesophageal reflux disease) Status: Chronic (12) HLD (hyperlipidemia) Status: Chronic (13) HTN (hypertension) Status: Chronic (14) Pancreatic cancer Permanent Comment: Whipple 02/04 s/p neoadjuvant chemoradiotherapy 2005 Jason Urena MD Status: Chronic (15) Pancreatic insufficiency Status: Chronic (16) Syncope Status: Resolved Surgical Problems: (1) H/O cervical spine surgery Status: Chronic (2) H/O hernia repair Status: Chronic (3) H/O percutaneous transluminal coronary angioplasty Status: Resolved (4) History of cardiac cath Permanent Comment: with stent placement Status: Chronic (5) History of hip replacement Status: Chronic (6) S/P cholecystectomy Status: Chronic (7) S/P hip replacement Status: Chronic (8) Stented coronary artery Status: Chronic Family History Diabetes mellitus FH: cancer FH: gallbladder disease Heart disease Hypertension Kidney disease Lung disease Social History Smoking Status: Former Smoker (quit 1985, smoked cigars for 20 years) Smokeless Tobacco Use: No Alcohol Use: none Drug Use: none Marital Status: , in relationship Housing status: lives with significant other Occupational Status: retired Immunizations History of Influenza Vaccine: Yes Influenza Vaccine Date: Jan 19, 2015 History of Tetanus Vaccine?: Unknown History of Pneumococcal: Yes Pneumococcal Date: Dec 21, 2010 History of Hepatitis B Vaccine: Unknown Allergies Coded Allergies: Lisinopril (Verified Allergy, Intermediate, RASH, 05/31/17) Spironolactone (Verified Allergy, Unknown, unkn, 05/31/17) Zolpidem (Verified Adverse Reaction, Mild, HALLUCINATIONS, 05/31/17) Home Medications Scheduled Amiodarone HCl (Amiodarone HCl), 200 MG PO DAILY Ascorbic Acid (Ascorbic Acid), 1,000 MG PO DAILY Atorvastatin (Lipitor), 10 MG PO DAILY Calcitriol (Rocaltrol Cap), 0.25 MCG PO MWF Cholecalciferol (Vitamin D), 1,000 UNITS PO DAILY Clopidogrel Bisulfate (Plavix), 75 MG PO DAILY Esomeprazole Magnesium (Esomeprazole Magnesium), 1 CAP PO DAILY Finasteride (Proscar), 5 MG PO DAILY Fluticasone Furoate-Vilanterol (Breo Ellipta), 1 PUFF INH DAILY Fluticasone Propionate (Nasal) (Flonase Allergy Relief), 2 SPRAY RICHA DAILY Furosemide (Lasix), 80 MG PO BID Insulin Aspart 70/30 (Novolog Mix 70/30), 28 SC am Insulin Aspart 70/30 (Novolog Mix 70/30), 12 SC PM Metoprolol Succ (Toprol Xl) (Toprol-Xl), 50 MG PO DAILY Multiple Vitamins W/ Minerals (Centrum Silver Adult 50+), 1 TAB PO DAILY Pancrelipase (Lipase-Protease- (Pancreaze), 1 CAP PO QID Potassium Chloride (K-Tabs), 10 MEQ PO DAILY Sennosides-Docusate Sodium (Senexon-S), 1 TAB PO DAILY Sertraline HCl (Sertraline HCl), 50 MG PO DAILY Tamsulosin Hcl (Flomax), 0.4 MG PO DAILY Warfarin Sod (Coumadin), 1.5 MG PO UD Warfarin Sod (Coumadin), 3 MG PO UD Scheduled PRN Albuterol Hfa (Ventolin Hfa), 2-4 PUFFS INH Q6H PRN for Shortness of Breath Levalbuterol Tartrate (Levalbuterol Tartrate Hfa), 2 PUFFS INH Q4H PRN for SOB, cough, wheezing Oxycodone Hcl (Oxycodone Hcl), 1 TAB PO Q6 PRN for Pain Review of Systems Constitutional: No fever, No chills, No sweats Eyes: No eye pain, No redness ENT: + hearing loss (chronic - uses hearing aids), No unusual epistaxis, No trouble swallowing Respiratory: No hemoptysis Cardiovascular: + problem reported (see HPI) Abdomen: No pain, No nausea, No vomiting, No GI bleeding Musculoskeletal: + joint pain (chronic back pain - on oxycodone) Genitourinary - Male: No hematuria, No dysuria, No urinary frequency, No urinary urgency Endocrine: No excessive thirst Integumentary: No rash, No itch Physical Exam Vital Signs Date Time Temp Pulse Resp B/P (MAP) Pulse Ox O2 Delivery O2 Flow Rate FiO2 05/31/17 11:30 97 14 91 05/31/17 11:01 116/54 05/31/17 11:00 91 13 96 05/31/17 10:04 98 Nasal Cannula 2.0 05/31/17 10:03 92 Room Air 05/31/17 09:59 82 05/31/17 09:35 36.6 81 22 110/71 96 Room Air General Appearance: + pertinent finding (chronic ill appearing in mild respiratory distress - improved on O2 NC) Head: normocephalic, atraumatic Eyes: normal inspection, PERRL, sclerae normal ENT: + pertinent finding (hard of hearing, mucous membranes moist) Neck: supple, trachea midline, + pertinent finding (no JVD noted, pt has thick neck) Respiratory/Chest: + decreased breath sounds (bases bilaterally, ) Cardiovascular: + irregularly irregular Abdomen/GI: normal bowel sounds, non tender, + distended Extremities/Musculoskelatal: non-tender, + pedal edema (mild bilaterally) Neurologic/Psych: alert, oriented x 3 Skin: normal color, warm/dry Diagnostics Laboratory Results Results Past 24 Hours Test 05/31/17 10:00 05/31/17 11:45 Range/Units White Blood Count 9.15 4.8-10.8 K/uL Red Blood Count 3.62 4.7-6.1 M/uL Hemoglobin 11.7 14.0-18.0 g/dL Hematocrit 35.8 42-52 % Mean Corpuscular Volume 98.9 80-100 fL Mean Corpuscular Hemoglobin 32.3 25-34 pg Mean Corpuscular Hemoglobin Concent 32.7 32-36 g/dl Platelet Count 182 130-400 K/uL Mean Platelet Volume 9.6 7.4-10.4 fL Neutrophils (%) (Auto) 73.4 % Lymphocytes (%) (Auto) 14.9 % Monocytes (%) (Auto) 7.4 % Eosinophils (%) (Auto) 3.4 % Basophils (%) (Auto) 0.4 % Neutrophils # (Auto) 6.71 1.4-6.5 K/uL Lymphocytes # (Auto) 1.36 1.2-3.4 K/uL Monocytes # (Auto) 0.68 0.11-0.59 K/uL Eosinophils # (Auto) 0.31 0-0.5 K/uL Basophils # (Auto) 0.04 0-0.2 K/uL RDW Standard Deviation 60.1 36.4-46.3 fL RDW Coefficient of Variation 16.7 11.5-14.5 % Immature Granulocyte % (Auto) 0.5 % Immature Granulocyte # (Auto) 0.05 0.00-0.02 K/uL Prothrombin Time 38.5 9.0-12.0 SECONDS Activated Partial Thromboplast Time 45.7 21.0-31.0 SECONDS Partial Thromboplastin Ratio 1.8 Sodium Level 141 136-145 mmol/L Potassium Level 3.7 3.5-5.1 mmol/L Chloride Level 110 98-107 mmol/L Carbon Dioxide Level 24 21-32 mmol/L Anion Gap 7.0 3-11 mmol/L Blood Urea Nitrogen 37 7-18 mg/dl Creatinine 2.81 0.60-1.40 mg/dl Est Creatinine Clear Calc Drug Dose 20.0 ml/min Estimated GFR () 23.0 Estimated GFR (Non- 19.9 BUN/Creatinine Ratio 13.1 10-20 Random Glucose 59 70-99 mg/dl Calcium Level 8.2 8.5-10.1 mg/dl Total Bilirubin 0.5 0.2-1 mg/dl Aspartate Amino Transf (AST/SGOT) 15 15-37 U/L Alanine Aminotransferase (ALT/SGPT) 21 12-78 U/L Alkaline Phosphatase 116 45-117 U/L Troponin I 0.217 0-0.045 ng/ml Pro-B-Type Natriuretic Peptide 14531 0-1800 pg/ml Total Protein 7.6 6.4-8.2 gm/dl Albumin 3.4 3.4-5.0 gm/dl Globulin 4.2 2.5-4.0 gm/dl Albumin/Globulin Ratio 0.8 0.9-2 Urine Color YELLOW Urine Appearance CLEAR CLEAR Urine pH 5.0 4.5-7.5 Urine Specific Dailey 1.012 1.000-1.030 Urine Protein NEG NEG Urine Glucose (UA) NEG NEG Urine Ketones NEG NEG Urine Occult Blood NEG NEG Urine Nitrite NEG NEG Urine Bilirubin NEG NEG Urine Urobilinogen NEG NEG Urine Leukocyte Esterase NEG NEG Diagnostic Radiology CXR: IMPRESSION: Cardiomegaly. Suspected mild asymmetric pulmonary vascular congestion. No evidence of lobar consolidation EKG EKG: Ventricular paced rhythm, PVCs, rate 82 Impression Assessment and Plan ACUTE ON CHRONIC SYSTOLIC CHF Pt with increased SOB, and weight gain past 4 days. BNP: 19.613, CXR: cardiomegaly, mild asymmetric pulmonary vascular congestion. Hx echo: 08/2016: EF30-35%. -lasix 80mg IV ordered -monitor I&O's -1800 fluid restriction -supplemental oxygen per protocol -echo -cardiology consult - recommend lasix 80 -monitor cbc, prp ELEVATED TROPONIN. Hx CAD s/p STENT. R/O ACS Pt reported chest heaviness, SOB. Troponin: 0.217, (improved from previous 0.3 on previous admission). Pt with chronically elevated troponin -trend troponin -cardiology consult -recheck EKG -continue statin, beta mansi, Plavix A-FIB ON COUMADIN INR: 3.8. ventricular paced rhythm on EKG -hold coumadin tonight, plan to resume at lower dose -monitor pt-inr -continue amiodarone BRADYCARDIA S/P PACER/AICD Pt reports firing ICD 2 weeks ago -interrogation pacer JOSUÉ ON CKD IV Cr: 2.8. Was 2.3 on 05/13/17 -monitor renal functions -cardiology consult DM II Glucose 59. Up to 64 after orange juice. continue to monitor. Pt ate breakfast -hold novolog 70/30 -gentle Novolog sliding scale HTN stable -continue metoprolol -continue to monitor as pt receiving IV lasix COPD -continue breo daily and inhalers prn Hx PANCREATIC CA s/p WHIPPLE -continue pancreas enzymes BPH -continue Flomax, Proscar GERD -continue PPI DEPRESSION -Hold Zoloft /SSRI for prolong Qtc DVT Prophylaxis -On Coumadin Disposition admit tele DNR/DNI as per discussion with pt Follows with Dr Ferrer for routine care Pt was seen with Dr Foreman. See addendum ATTENDING ADDENDUM : Patient seen and examined, care coordinated with Tammy English PA-C this is a complicated patient with past medical history of severe ischemic cardiomyopathy EF of 30% as per last echo in 2016, status post AICD placement, history of A. fib on Coumadin, history of CKD stage IV, was in dialysis now recovered presents to the ER with complaint of shortness of breath, dyspnea on exertion, significant weight gain approximately 10 pounds in last 4 days. Patient was recently seen by his cardiology he is been on Lasix 80 mg twice daily, patient reports taking medication as directed but noted persistent weight gain approximately 2 pounds daily in the last 4 days , developed significant dyspnea on exertion, orthopnea dizzy spell when standing up, mention of having occasional chest heaviness, felt pain at the AICD site, report of AICD firing approximately 2 weeks ago next PHYSICAL EXAM : General: Chronically ill appearing elderly male, in distress for shortness of breath HEENT: Sclera nonicteric, pupils equal reactive to light extraocular muscles intact, JVD could not be assessed Heart: Regular no murmur auscultated Lungs: Diminished breath sound, could not auscultate any wheezes or rales Abdomen: Distended, positive ascites nontender, bowel sounds active Extremities: Trace bilateral lower extremity edema Neuro: No focal neurological deficit noted ASSESSMENT AND PLAN: 1. Acute decompensated CHF with severe systolic dysfunction and ischemic cardiomyopathy Presented with significant volume overload, weight gain, shortness of breath, orthopnea Chest x-ray shows pulmonary congestion proBNP elevated 19,613 Ordered for IV Lasix 80 mg now And will be continued IV Lasix 80 mg every 8 hours Order for echo Cardiology consult Case discussed with on-call cardiology Dr. Winter We will monitor volume status, daily weight, intake and output Patient refused to have a Ruff catheter , because of difficult insertion in the past due to BPH 2. Chest pain rule out ACS Patient reports of intermittent chest pain, associated with shortness of breath report of AICD firing approximately 2 weeks ago, currently chest pain-free Borderline elevation of troponin possible for cardiac strain due to decompensated CHF, and JOSUÉ ON CKD stage IV We will monitor serial cardiac markers Resting echo ordered Ordered for AICD interrogation Patient will be continued on her cardiac meds-Plavix beta mansi, statin, Cardiology follow-up 3. Acute kidney injury on CKD stage IV Baseline creatinine approximately 2.3-2.5 Acute kidney injury possible secondary to decompensated heart failure We will continue IV Lasix 80 milligrams 3 times daily Monitor daily labs Nephrology consulted, patient follows with Dr. Sifuentes 4. Prolonged QTC QTC is more than 500 Avoid medication causing QTC prolongation, no Zofran, we will hold the patient' s SSRI, daily EKG, monitor basic metabolic panel and mg level 5. History of chronic A. fib on Coumadin INR elevated 3.8 No evidence of bleeding Hold Coumadin Daily PT/INR, resume Coumadin when INR is less than 3 We will continue patient's amiodarone (monitor daily EKG for prolonged QTC ), cardiology following CODE STATUS; DNR/DNI-discussed with patient Disposition: Lives at home with , has significant functional decline secondary to shortness of breath CHF decompensation, PT OT eval prior to discharge Social service consulted for discharge planning Please refer to for the documentation by Ashwini English PA-C for further discussion of other chronic issues. Shelley Foreman MD Resuscitation Status DNR/DNI VTE Prophylaxis Will order VTE Prophylaxis: Yes (Pt on Coumadin ) Additional Copies To Jadiel Ferrer M.D.
[2017-05-31 14:30] VITALS: BP 102/61; PULSE 75; TEMP 36.4; O2SAT 95; Ht 165.1 cm; Wt 83.9 kg
[2017-05-31] MEDS ORDERED: PHARMACY GLYCEMIC MGMT CONSULT SCH (14:48)
[2017-05-31] MEDS ORDERED: FUROSEMIDE INJ 80 MG in SYRINGE 0 ML IV ONE (15:15)
--- NOTE | 2017-05-31 15:19 | Pharmacy Progress Note ---
Glycemic Control Intl Consult Date of Service May 31, 2017. Scope Pharmacist consulted for glycemic control and to write orders per [facility] inpatient glycemic control protocol Objective Weight (Kilograms): 85.000 Accuchecks BSG (last 24hrs): Test 05/31/17 10:00 05/31/17 11:47 Random Glucose 59 mg/dl (70-99) Bedside Glucose 52 mg/dl (70-99) Laboratory Data (last 24hrs) Test 05/31/17 10:00 Anion Gap 7.0 mmol/L BUN/Creatinine Ratio 13.1 Blood Urea Nitrogen 37 mg/dl Creatinine 2.81 mg/dl Potassium Level 3.7 mmol/L Sodium Level 141 mmol/L White Blood Count 9.15 K/uL Red Blood Count 3.62 M/uL Hemoglobin 11.7 g/dL Hematocrit 35.8 % Mean Corpuscular Volume 98.9 fL Mean Corpuscular Hemoglobin 32.3 pg Mean Corpuscular Hemoglobin Concent 32.7 g/dl Platelet Count 182 K/uL Mean Platelet Volume 9.6 fL Neutrophils (%) (Auto) 73.4 % Lymphocytes (%) (Auto) 14.9 % Monocytes (%) (Auto) 7.4 % Eosinophils (%) (Auto) 3.4 % Basophils (%) (Auto) 0.4 % Neutrophils # (Auto) 6.71 K/uL Lymphocytes # (Auto) 1.36 K/uL Monocytes # (Auto) 0.68 K/uL Eosinophils # (Auto) 0.31 K/uL Basophils # (Auto) 0.04 K/uL HbA1c PENDING Recent Pertinent Medications Outpatient Anti-diabetic Regimen: * NovoLog 70/30 Pre-Mixed insulin * 28 units in AM + 12 units in PM * A1c = 7.7 % 02/16/17 * Although this result may not be totally reliable secondary to CKD and anemia Assessment & Plan ASSESSMENT: * 82yo T2DM male admitted for CHF exacerbation- pt with hypoglycemia on admission. Hypo resolved with OJ, crackers, and meal tray. * Outpatient regimen is premixed basal/prandial insulin of NovoLog 70/30 mix insulin. * Pre-mixed insulin is difficult to titrate since it is already in a fixed distribution of basal:prandial insulin. Continuing pre-mixed insulin for admission typically lead to hypoglycemia d/t changing PO status but rapid acting insulin is unable to be held. * Home regimen will be held for admission per pharmacy consult. Will utilize recommended regimen of SQ basal bolus insulin regimen with NPH + NovoLog (CF+CR) * Pt uses a total daily outpatient dose of 40 units/day. * When split 50% basal:50% prandial this equates to NPH 10 units SQ BID + NovoLog per CF/CR of 40/13 respectively. Since pt admitted with a low BSG, will empirically reduce this dosing. Basal insulin will be needed to prevent rebound hyperglycemia - but will cautiously resume when BSG >200mg/dl PLAN FOR INPATIENT GLYCEMIC CONTROL: * Holding outpatient premixed insulin * Basal insulin * NPH SQ BID - dosing based on BSG * BSG < 200 --> 0 units * BSG 200 or above --> 8 units * Will titrate based on BSG trends * Bolus insulin * NovoLog per scale ACHS or Q6hrs while NPO * Goal Range: Low 120 mg/dL - High 160 mg/dL * Correction Factor: 40 mg/dL/unit * Nutritional / Prandial insulin per carb ratio of 1 unit per 13 grams CHO consumed * A1c with AM labs per provider * Please note that the plan above was derived based on current level of insulin resistance and hospital stress. These recommendations are appropriate for inpatient admission only. Plan of care upon discharge will need to be reassessed to avoid potential outpatient hypo/hyperglycemia. Thank you.
[2017-05-31] MEDS: CALCITRIOL 0.25 MCG CAP PO SCH (15:33)
[2017-05-31] MEDS: PANCREAZE (LIPASE 10,500U) CAP PO SCH ×2 (15:38→20:22)
[2017-05-31 15:49] VITALS: BP 124/87; PULSE 72; TEMP 36.6; O2SAT 97
--- NOTE | 2017-05-31 16:20 | Nephrology Consultation ---
Nephrology Consultation Date of Consultation: May 31, 2017. Attending Physician: Dr Terrell Requesting Physician: Dr Foreman Reason for Consultation: JOSUÉ on CKD4 History of Present Illness 82 year old male w/ baseline creatinine mid-high 2's and ischemic MINE CAPTAIN EF 25% admitted w/ acute on chronic systolic heart failure after 15lb wt gain at home in past 2 wks. Further complex medical hx as below. He noted primarily increased abdominal girth but no edema w/ these changes. He did have some worsened chronic exertional dyspnea and orthopnea w/ increased weight. His presenting creatinine was 2.8 w/ K 3.7 and a bland urine sediment. His past 2 outpt creatinines are 2.3 in mid May and 01/2017. He takes lasix 80 mg bid as outpt. Cardiology evaluated the pt and is starting him on 80 mg IV lasix tid. Past Medical/Surgical History Medical Problems: (1) Acute bronchitis Status: Acute (2) Chronic renal disease Status: Acute (3) Elevated troponin Status: Acute (4) Elevated troponin Status: Acute (5) Elevated troponin Status: Acute (6) Falls Status: Acute (7) Hypokalemia Status: Acute (8) Hypokalemia Status: Acute (9) Influenza Status: Acute (10) Orthostasis Status: Acute (11) Pulmonary edema Status: Acute (12) SOB (shortness of breath) Status: Acute (13) Systolic congestive heart failure Status: Acute (14) UTI (urinary tract infection) Status: Acute -a fib on coumadin -CAD -ischemic MINE CAPTAIN ef 30% -CKD 4 baseline creatinine mid-high 2's; has reportedly needed dialysis in the past -DM2 -s/p 2005 Whipple procedure for pancreatic CA -stroke w/ residual LUE weakness -GERD -COPD -HTN -depression -hx of hernia repair, C spine surgery, hip replacement, cholecystectomy Family History Diabetes mellitus FH: cancer FH: gallbladder disease Heart disease Hypertension Kidney disease Lung disease Social History Smoking Status: Former Smoker Drug Use: none Marital Status: , in relationship Housing Status: lives with family Occupation Status: retired Allergies Coded Allergies: Lisinopril (Verified Allergy, Intermediate, RASH, 05/31/17) Spironolactone (Verified Allergy, Unknown, unkn, 05/31/17) Zolpidem (Verified Adverse Reaction, Mild, HALLUCINATIONS, 05/31/17) Medications Current Inpatient Medications Medications (Trade) Dose Ordered Sig/Quoc Route Start Time Stop Time Status Last Admin Dose Admin Albuterol (Ventolin Hfa Inhaler) 2 puffs Q6H PRN INH 05/31/17 13:00 06/30/17 12:59 Amiodarone HCl (Cordarone Tab) 200 mg DAILY PO 06/01/17 09:00 07/01/17 08:59 Ascorbic Acid (Vitamin C Tab) 1,000 mg DAILY PO 06/01/17 09:00 07/01/17 08:59 Atorvastatin Calcium (Lipitor Tab) 10 mg DAILY PO 06/01/17 09:00 07/01/17 08:59 Calcitriol (Rocaltrol Cap) 0.25 mcg MoWeFr@0900 PO 05/31/17 16:00 06/30/17 15:59 05/31/17 15:33 0.25 MCG Cholecalciferol (Vitamin D Tab) 1,000 inter.unit DAILY PO 06/01/17 09:00 07/01/17 08:59 Clopidogrel Bisulfate (plAVix TAB) 75 mg DAILY PO 06/01/17 09:00 07/01/17 08:59 Finasteride (Proscar Tab) 5 mg DAILY PO 06/01/17 09:00 07/01/17 08:59 Fluticasone Propionate (Flonase Nasal [place]) 2 sprays DAILY RICHA 06/01/17 09:00 07/01/17 08:59 Metoprolol Succinate (Toprol Xl Tab) 50 mg DAILY PO 06/01/17 09:00 07/01/17 08:59 Multivitamins/ Minerals (Multivitamin W/ Minerals Tab) 1 tab DAILY PO 06/01/17 09:00 07/01/17 08:59 Amylase/Lipase/ Protease (Pancreaze (Lipase 10,500U) Cap) 1 cap QID PO 05/31/17 17:00 06/30/17 16:59 05/31/17 15:38 1 CAP Senna/Docusate Sodium (Senokot S Tab) 1 tab DAILY PO 06/01/17 09:00 07/01/17 08:59 Tamsulosin HCl (Flomax Cap) 0.4 mg DAILY PO 06/01/17 09:00 07/01/17 08:59 Pantoprazole Sodium (Protonix Tab) 40 mg QAM PO 06/01/17 09:00 07/01/17 08:59 Miscellaneous Information (Order Awaiting Action) 1 ea QS N/A 05/31/17 16:00 06/30/17 15:59 Oxycodone HCl (Roxicodone Immediate Rel Tab) 10 mg Q6H PRN PO 05/31/17 13:45 06/14/17 13:44 Potassium Chloride (Klor-Con M10) 10 meq DAILY PO 06/01/17 09:00 07/01/17 08:59 Warfarin Sodium (Coumadin Tab) 1 mg DAILY@16 PO 06/01/17 16:00 07/01/17 15:59 Furosemide 80 mg/ Syringe 8 ml @ 4 mls/min Q8H IV 06/01/17 00:00 07/01/17 00:00 Acetaminophen (Tylenol Tab) 650 mg Q4H PRN PO 05/31/17 13:15 06/30/17 13:14 Magnesium Hydroxide (Milk Of Magnesia Susp) 30 ml Q12H PRN PO 05/31/17 13:15 06/30/17 13:14 Nitroglycerin (Nitrostat Tab) 0.4 mg UD PRN SL 05/31/17 13:15 06/30/17 13:14 Polyethylene (Miralax Powder Packet) 17 gm DAILY PRN PO 05/31/17 13:15 06/30/17 13:14 Ipratropium [place] (Atrovent 0.02% 0.5MG/2.5ML Neb) 0.5 mg Q6RWA INH 05/31/17 15:00 06/30/17 14:59 Levalbuterol (Xopenex 1.25MG/ 0.5ML Neb) 1.25 mg Q6RWA INH 05/31/17 15:00 06/30/17 14:59 Insulin Aspart (novoLOG ASPART) SLIDING SCALE If C... ACHS SC 05/31/17 16:15 06/30/17 16:14 Glucose (Glucose 40% Gel) 15-30 GRAMS 15 GRAMS... UD PRN PO 05/31/17 13:45 06/30/17 13:44 Glucose (Glucose Chew Tab) 4-8 Tablets 4 Tabl... UD PRN PO 05/31/17 13:45 06/30/17 13:44 Dextrose (Dextrose 50% 50ML Syringe) 25-50ML OF 50% DW IV FOR... UD PRN IV 05/31/17 13:45 06/30/17 13:44 Glucagon (Glucagon Inj) 1 mg UD PRN SQ 05/31/17 13:45 06/30/17 13:44 Miscellaneous Information (Consult Glycemic Management Pharmacy) 1 ea UD N/A 05/31/17 14:48 06/30/17 14:47 Insulin Human NPH (novoLIN-N NPH) SEE PROTOCOL TEXT BIDM SC 05/31/17 21:00 06/30/17 20:59 Home Meds and Scripts Medications Dose Route/Sig Max Daily Dose Days Date Category Dose Instructions Oxycodone Hcl 10 Mg Tab 1 Tab PO Q6 PRN 30 05/31/17 Reported Esomeprazole Magnesium 40 Mg Cap 1 Cap PO DAILY 05/31/17 Reported Lasix (Furosemide) 80 Mg Tab 80 Mg PO BID 30 02/07/17 Rx Amiodarone HCl 200 Mg Tab 200 Mg PO DAILY 02/07/17 Rx K-Tabs (Potassium Chloride) 10 Meq Tabcr 10 Meq PO DAILY 02/07/17 Rx Pancreaze (Pancrelipase (Lipase-Protease-) 1 Cap Cap 1 Cap PO QID 02/03/17 Reported Ventolin Hfa (Albuterol) 200 Puffs/98610 Mcg Aers 2-4 Puffs INH Q6H PRN 02/03/17 Reported Flomax (Tamsulosin Hcl) 0.4 Mg Cap 0.4 Mg PO DAILY 02/03/17 Reported Sertraline HCl 50 Mg Tab 50 Mg PO DAILY 01/10/17 Reported Levalbuterol Tartrate Hfa (Levalbuterol Tartrate) 45 Mcg/Act Aer 2 Puffs INH Q4H PRN 01/10/17 Reported Centrum Silver Adult 50+ (Multiple Vitamins W/ Minerals) 1 Tab Tab 1 Tab PO DAILY 01/10/17 Reported Vitamin D (Cholecalciferol) 1,000 Unit Tab 1,000 Units PO DAILY 01/10/17 Reported Coumadin (Warfarin Sod) 3 Mg Tab 3 Mg PO UD 09/24/16 Reported Take 3 mg by mouth on Saturday, Saturday, Saturday, Saturday, SATURDAY. Coumadin (Warfarin Sod) 3 Mg Tab 1.5 Mg PO UD 09/24/16 Reported Take 1.5 mg by mouth on Saturday, . Senexon-S (Sennosides-Docusate Sodium) 1 Tab Tab 1 Tab PO DAILY 09/24/16 Reported Ascorbic Acid 500 Mg Tab 1,000 Mg PO DAILY 09/24/16 Reported Toprol-Xl (Metoprolol Succinate) 50 Mg Tabcr 50 Mg PO DAILY 06/22/16 Reported Novolog Mix 70/30 (Insulin Aspart Prota 70%/Aspart 30%) Susp 12 SC PM 06/22/16 Reported Novolog Mix 70/30 (Insulin Aspart Prota 70%/Aspart 30%) Susp 28 SC AM 06/22/16 Reported Proscar (Finasteride) 5 Mg Tab 5 Mg PO DAILY 06/22/16 Reported Breo Ellipta (Fluticasone Furoate-Vilanterol) 1 Inh Inh 1 Puff INH DAILY 03/08/16 Reported Lipitor (Atorvastatin Calcium) 10 Mg Tab 10 Mg PO DAILY 03/08/16 Reported Flonase Allergy Relief (Fluticasone Propionate (Nasal)) 50 Mcg/Act Spr 2 [place] RICHA DAILY 03/08/16 Reported Rocaltrol Cap (Calcitriol) 0.25 Mcg Cap 0.25 Mcg PO MWF 05/28/15 Reported Plavix (Clopidogrel Bisulfate) 75 Mg Tab 75 Mg PO DAILY 02/02/13 Reported Review of Systems Constitutional: + problem reported (wt gain), No fever, No weight loss, No fatigue Eyes: No worsening of vision ENT: No hearing loss Respiratory: + shortness of breath, + dyspnea on exertion, No cough Cardiac: No chest pain, No edema, No palpitations Abdomen: + nausea (dry heaves), No pain, No vomiting, No diarrhea Musculoskeletal: No joint pain, No muscle pain Male : + problem reported (no change in chronic voiding habits) Neuro: + weakness, No memory loss, No balance problems Psych: No depression symptoms, No anxiety Heme: No abnormal bleeding/bruising Endo: + fatigue Skin: No rash, No itch, No new/changing skin lesions Physical Exam Date Time Temp Pulse Resp B/P (MAP) Pulse Ox O2 Delivery O2 Flow Rate FiO2 05/31/17 15:49 36.6 72 20 124/87 (99) 97 Room Air 05/31/17 14:30 36.4 75 16 102/61 95 Room Air 05/31/17 13:53 88 19 99/64 99 05/31/17 13:02 99/64 05/31/17 12:35 88 19 05/31/17 12:32 117/66 05/31/17 12:05 90 14 05/31/17 12:02 124/65 05/31/17 11:35 86 19 99 05/31/17 11:30 97 14 91 05/31/17 11:01 116/54 05/31/17 11:00 91 13 96 05/31/17 10:04 98 Nasal Cannula 2.0 05/31/17 10:03 92 Room Air 05/31/17 09:59 82 05/31/17 09:35 36.6 81 22 110/71 96 Room Air General Appearance: WD/WN, no apparent distress (on ra, maneuvers w/ effort but no dsypnea for exam, a& o x 3) Eyes: EOMI ENT: normal ENT inspection Neck: supple Respiratory/Chest: lungs clear, normal breath sounds, no respiratory distress Cardiovascular: regular rate, rhythm, no edema Abdomen: normal bowel sounds, non tender, soft (no barlow, no fluid wave) Extremities: normal inspection, no pedal edema Neurologic/Psych: no motor/sensory deficits, alert, normal mood/affect, oriented x 3 Skin: no jaundice, warm/dry, no rash, + pallor Diagnostics Last 24 Hours Test 05/31/17 10:00 05/31/17 11:45 05/31/17 11:47 White Blood Count 9.15 K/uL Red Blood Count 3.62 M/uL Hemoglobin 11.7 g/dL Hematocrit 35.8 % Mean Corpuscular Volume 98.9 fL Mean Corpuscular Hemoglobin 32.3 pg Mean Corpuscular Hemoglobin Concent 32.7 g/dl Platelet Count 182 K/uL Mean Platelet Volume 9.6 fL Neutrophils (%) (Auto) 73.4 % Lymphocytes (%) (Auto) 14.9 % Monocytes (%) (Auto) 7.4 % Eosinophils (%) (Auto) 3.4 % Basophils (%) (Auto) 0.4 % Neutrophils # (Auto) 6.71 K/uL Lymphocytes # (Auto) 1.36 K/uL Monocytes # (Auto) 0.68 K/uL Eosinophils # (Auto) 0.31 K/uL Basophils # (Auto) 0.04 K/uL RDW Standard Deviation 60.1 fL RDW Coefficient of Variation 16.7 % Immature Granulocyte % (Auto) 0.5 % Immature Granulocyte # (Auto) 0.05 K/uL Prothrombin Time 38.5 SECONDS Prothromb Time International Ratio 3.8 Activated Partial Thromboplast Time 45.7 SECONDS Partial Thromboplastin Ratio 1.8 Sodium Level 141 mmol/L Potassium Level 3.7 mmol/L Chloride Level 110 mmol/L Carbon Dioxide Level 24 mmol/L Anion Gap 7.0 mmol/L Blood Urea Nitrogen 37 mg/dl Creatinine 2.81 mg/dl Est Creatinine Clear Calc Drug Dose 20.0 ml/min Estimated GFR () 23.0 Estimated GFR (Non- 19.9 BUN/Creatinine Ratio 13.1 Random Glucose 59 mg/dl Calcium Level 8.2 mg/dl Total Bilirubin 0.5 mg/dl Aspartate Amino Transf (AST/SGOT) 15 U/L Alanine Aminotransferase (ALT/SGPT) 21 U/L Alkaline Phosphatase 116 U/L Troponin I 0.217 ng/ml Pro-B-Type Natriuretic Peptide 51680 pg/ml Total Protein 7.6 gm/dl Albumin 3.4 gm/dl Globulin 4.2 gm/dl Albumin/Globulin Ratio 0.8 Thyroid Stimulating Hormone (TSH) 1.700 uIu/ml Urine Color YELLOW Urine Appearance CLEAR Urine pH 5.0 Urine Specific [place] 1.012 Urine Protein NEG Urine Glucose (UA) NEG Urine Ketones NEG Urine Occult Blood NEG Urine Nitrite NEG Urine Bilirubin NEG Urine Urobilinogen NEG Urine Leukocyte Esterase NEG Bedside Glucose 52 mg/dl Diagnostic Radiology: cxr >> cardiomegaly; mild plm congestion w/o focal consolidation/effusion EKG: V paced rhythm w/ PVCs Assessment & Plan 82 y/o M w/ CKD 4 baseline creatinine mid 2's in setting of dm, CAD, ICMO EF 25% , past Whipple, COPD, stroke w/ chronic LUE weakness admitted w/ acutely decompensated systolic HF JOSUÉ on ckd4/ cardiorenal syndrome Current chemistries, hgb, BP/HR/ 02sats acceptable. -agree w/ 80 mg IV tid -agree w/ 1.8L daily fluid limit -limited daily Na to 2 gm -ordered daily standing wt -daily bmp -strict I/O -no indication for acute dialysis Care coordinated w/ Dr. Winter. Appreciate consult; will follow with you.
--- NOTE | 2017-05-31 17:03 | CARDIOLOGY CONSULTATION ---
DATE OF CONSULTATION: 05/31/2017 INPATIENT CONSULTATION CONSULTATION REQUESTED BY: Dr. Foreman. REASON FOR CONSULTATION: Decompensated systolic heart failure. HISTORY OF PRESENT ILLNESS: Mr. Redd is a very pleasant 82-year-old gentleman who has not been seen in our cardiology clinic since April 2016. He presented to [facility] on 05/31/2017 with a complaint of shortness of breath and weight gain. He states that he started noticing his breathing started to get a little bit more difficult approximately 4 days ago. He states he first noticed that when he got out of bed in the morning and attempted to walk to the bathroom. Over the next few days, his shortness of breath continuously worsened until the point where he was becoming short of breath just standing. During that time, he states he has been compliant with all of his medications and he states he is also incompliant with his low salt diet. He has also gained 15 pounds at that time and he has noticed that his abdomen has become distended and he has had to start wearing a larger size pants, but he denies any chest pain, palpitations, lightheadedness, dizziness, or lower extremity edema. PAST SURGICAL HISTORY: 1. BIV ICD placement with a Med[employer] device - March 2016. 2. PCI of the left main and RCA in 2005. 3. Spine surgery. 4. Whipple procedure. 5. Hip replacement. 6. Cholecystectomy. 7. Cervical spine surgery. MEDICAL ILLNESSES: 1. Severe ischemic cardiomyopathy, EF 30-35%. 2. Chronic renal failure. 3. Coronary artery disease. 4. Persistent atrial fibrillation, on chronic Coumadin therapy. 5. History of pancreatic cancer. 6. COPD. 7. History of CVA. FAMILY HISTORY: Noncontributory. SOCIAL HISTORY: The patient is a former smoker, quit several years ago. Denies any alcohol or recreational drug use. He lives at home with his girlfriend. REVIEW OF SYSTEMS: As per HPI, all other review of systems reviewed and negative at this time. ALLERGIES: 1. LISINOPRIL. 2. SPIRONOLACTONE. 3. AMBIEN. MEDICATIONS AN OUTPATIENT: 1. Plavix 75 mg daily. 2. Coumadin 3 mg daily as directed by the Coumadin clinic. 3. Amiodarone 200 mg daily. 4. Atorvastatin 10 mg daily. 5. Proscar 5 mg daily. 6. Lasix 80 mg b.i.d. 7. Metoprolol succinate 50 mg b.i.d. PHYSICAL EXAMINATION: VITALS: Temperature 36.6, pulse 72, respiratory rate 14, blood pressure 124/87. GENERAL: Awake, alert, oriented x3, in no acute distress. Mild conversational dyspnea. HEENT: Normocephalic, atraumatic. Pupils equal, round, and reactive to light and accommodation. Extraocular muscles intact. Anicteric sclerae. Moist mucous membranes. Poor dentition. NECK: No JVD, no bruit. CARDIOVASCULAR: Irregularly irregular, unable to appreciate any murmurs, rubs or gallops. PULMONARY: Clear to auscultation bilaterally with scant crackles in the bilateral bases. No rhonchi or wheezing. ABDOMEN: Bowel sounds x4. Distended. No rebound, guarding, tenderness. No organomegaly. EXTREMITIES: Trace bilateral lower extremity nonpitting edema. No clubbing or cyanosis. +2 pedal pulses bilaterally. SKIN: Warm and dry. TEST RESULTS: A 12-lead EKG performed in the Emergency Department independently reviewed at this time shows a ventricularly paced rhythm. LABORATORY STUDIES OF SIGNIFICANCE: Sodium 141, potassium 3.7, BUN 37, and creatinine 2.81. INR of 3.8. IMPRESSION: 1. Acute decompensated left ventricular systolic heart failure, unclear etiology. 2. History of severe ischemic cardiomyopathy, ejection fraction 35%, status post biventricular implantable cardioverter defibrillator placement. 3. Persistent atrial fibrillation, rate controlled on chronic Coumadin therapy. 4. History of chronic kidney disease. RECOMMENDATIONS: It was my pleasure to see Mr. Redd in consultation today. From a cardiac standpoint, it is not quite clear what caused his decompensation, but he is obviously significantly volume overloaded now with a significant abdominal distention, shortness of breath and a 15-pound weight gain. So, at this time, we will increase his Lasix to 80 mg q. 8 hours IV. His potassium will be followed and supplemented as needed and will follow his volume status with this addition. Otherwise, he will be continued on his metoprolol, Plavix and Coumadin based on his INR. Strict I's and O's will be maintained.
[2017-05-31] MEDS: INSULIN ASPART 100 UNITS/ML 3 ML PEN SC SCH ×2 (17:27→21:27)
[2017-05-31] MEDS ORDERED: LEVALBUTEROL/IPRATROPIUM NEB INH SCH (18:00)
[2017-05-31] MEDS: LEVALBUTEROL 1.25MG/0.5ML NEB INH SCH (19:11)
[2017-05-31] MEDS: IPRATROPIUM BROMIDE NEB SOLN 0.02% 2.5 ML VIAL INH SCH (19:11)
[2017-05-31 19:12] VITALS: PULSE 68; O2SAT 97
[2017-05-31 19:34] VITALS: BP 110/61; PULSE 77; TEMP 36.5; O2SAT 92
[2017-05-31] MEDS: INSULIN HUMAN NPH SC SCH (21:00)
[2017-06-01] VITALS (10 sets, daily range): BP systolic 110–124; BP diastolic 53–70; PULSE 69–91; TEMP 36.4–37; O2SAT 92–100
[2017-06-01] MEDS: FUROSEMIDE INJ 80 MG in SYRINGE 0 ML IV SCH ×3 (00:07→17:06)
[2017-06-01] MEDS: ACETAMINOPHEN 325 MG TAB PO PRN (03:10)
--- NOTE | 2017-06-01 06:31 | DIAGNOSTIC IMAGING REPORT ---
CHEST ONE VIEW PORTABLE CLINICAL HISTORY: 82 years-old Male presenting with CHF. TECHNIQUE: Portable upright AP view of the chest was obtained. COMPARISON: 05/31/2017. FINDINGS: Left subclavian implanted cardiac defibrillator with leads to the right atrium and coronary sinus. Atherosclerosis of aortic arch. Cardiac silhouette moderately enlarged, unchanged. Numerous overlying external leads degrade evaluation. Mild pulmonary vascular prominence unchanged. Trace fluid within the right minor fissure. No focal opacity. No large pneumothorax. Osseous structures normal. IMPRESSION: 1. Cardiomegaly with volume overload and trace right pleural fluid. No kimber pulmonary edema. Electronically signed by: Duong Weldon M.D. 06/01/2017 6:29 AM Dictated Date/Time: 06/01/2017 6:28 AM
[2017-06-01 06:57] LABS: HEMOGLOBIN A1C 6.7 % (4.5-5.6)
[2017-06-01] MEDS: LEVALBUTEROL 1.25MG/0.5ML NEB INH SCH ×3 (07:13→19:24)
[2017-06-01] MEDS: IPRATROPIUM BROMIDE NEB SOLN 0.02% 2.5 ML VIAL INH SCH ×3 (07:14→19:24)
[2017-06-01 07:27] LABS: HEMATOCRIT 34.3 % (42-52); HEMOGLOBIN 11.3 g/dL (14.0-18.0); MEAN CELL VOLUME 97.7 fL (80-100); MEAN CORPUSCULAR HEMOGLOBIN 32.2 pg (25-34); MEAN CORPUSCULAR HGB CONC 32.9 g/dl (32-36); MEAN PLATELET VOLUME 9.6 fL (7.4-10.4); PLATELET COUNT 188 K/uL (130-400); RED CELL DISTRIBUTION WIDTH SD 60.8 fL (36.4-46.3); WHITE BLOOD COUNT 8.98 K/uL (4.8-10.8)
[2017-06-01] MEDS: INSULIN HUMAN NPH SC SCH ×3 (08:03→21:13)
[2017-06-01 08:05] LABS: ALBUMIN 3.2 gm/dl (3.4-5.0); CALCIUM 8.4 mg/dl (8.5-10.1); CREATININE 2.77 mg/dl (0.60-1.40); INR 4.4 (0.9-1.1); POTASSIUM 3.8 mmol/L (3.5-5.1)
[2017-06-01 08:09] LABS: PHOSPHORUS 3.4 mg/dl (2.5-4.9); TOTAL PROTEIN 7.1 gm/dl (6.4-8.2)
[2017-06-01] MEDS: TAMSULOSIN HCL 0.4 MG CAP PO SCH (08:41)
[2017-06-01] MEDS: PANTOprazole SOD 40 MG TAB PO SCH (08:41)
[2017-06-01] MEDS: CEROVITE ADV FORMULA TAB PO SCH (08:41)
[2017-06-01] MEDS: CLOPIDOGREL BISULFATE 75 MG TAB PO SCH (08:41)
[2017-06-01] MEDS: DOCUSATE SODIUM/SENNA 50/8.6MG TAB PO SCH (08:41)
[2017-06-01] MEDS: PANCREAZE (LIPASE 10,500U) CAP PO SCH ×4 (08:41→21:05)
[2017-06-01] MEDS: FINASTERIDE 5 MG TAB PO SCH (08:41)
[2017-06-01] MEDS: METOPROLOL SUCC 50MG EXT REL TAB PO SCH (08:41)
[2017-06-01] MEDS: ASCORBIC ACID 500 MG TAB PO SCH (08:42)
[2017-06-01] MEDS: CHOLECALCIFEROL 1000 INTER.UNIT TAB PO SCH (08:42)
[2017-06-01] MEDS: POTASSIUM CHLORIDE 10 MEQ TABCR PO SCH (08:42)
[2017-06-01] MEDS: ATORVASTATIN 10 MG TAB PO SCH (08:42)
[2017-06-01] MEDS: AMIODARONE 200 MG TAB PO SCH (08:42)
[2017-06-01] MEDS: FLUTICASONE PROPIONATE NA SPR 16 GM BTL NAE SCH (08:42)
[2017-06-01] MEDS: INSULIN ASPART 100 UNITS/ML 3 ML PEN SC SCH ×4 (08:45→21:12)
--- NOTE | 2017-06-01 09:15 | Cardiology Follow-Up ---
Subjective Subjective Date of Service: Jun 01, 2017. Pt evaluation today including: conversation w/ patient, physical exam, chart review, lab review, review of studies, review of inpatient medication list Additional Details: History: This is a 82-year-old male patient with a history of cardiomyopathy, biventricular pacemaker and chronic kidney disease. He has not had close follow -up with us for over a year. He presented with progressive shortness of breath and weight gain. According to the patient that weight gain seemed to be mostly in his abdomen. He is most likely retaining fluid there. He has no extremity edema. No neck vein distention. Problem List Medical Problems: (1) Acute bronchitis Status: Acute (2) Chronic renal disease Status: Acute (3) Elevated troponin Status: Acute (4) Elevated troponin Status: Acute (5) Elevated troponin Status: Acute (6) Falls Status: Acute (7) Hypokalemia Status: Acute (8) Hypokalemia Status: Acute (9) Influenza Status: Acute (10) Orthostasis Status: Acute (11) Pulmonary edema Status: Acute (12) SOB (shortness of breath) Status: Acute (13) Systolic congestive heart failure Status: Acute (14) UTI (urinary tract infection) Status: Acute Review of Systems Constitutional: + problem reported (wt gain), No fever, No weight loss, No fatigue Eyes: No worsening of vision Respiratory: + shortness of breath, + dyspnea on exertion, No cough Cardiac: No chest pain, No edema, No palpitations Musculoskeletal: No joint pain, No muscle pain Male : + problem reported (no change in chronic voiding habits) Neurologic: + weakness, No memory loss, No balance problems Psychiatric: No depression symptoms, No anxiety Heme: No abnormal bleeding/bruising Endo: + fatigue Objective Vital Signs Last Vital Signs Documentation Date Time Temp Pulse Resp B/P (MAP) Pulse Ox O2 Delivery O2 Flow Rate FiO2 06/01/17 08:35 69 18 113/53 (73) 100 06/01/17 07:15 Room Air 06/01/17 03:10 36.4 05/31/17 10:04 2.0 Physical Exam: General Appearance: no apparent distress ENT: hearing grossly normal Respiratory/Chest: no respiratory distress, no accessory muscle use Cardiovascular: no JVD Abdomen: non tender, soft Extremities: normal inspection Neurologic/Psychiatric: alert Skin: normal color Lymphatic: no adenopathy Assessment and Plan Impression: 1. Acute on chronic systolic heart failure 2. Chronic renal failure 3. Persistent atrial fibrillation 4. Biventricular pacemaker Recommendations: Despite the increase in diuretics the patient has not had a large diuresis. His creatinine has remained stable. My clinical exam doesn't suggest congestive heart failure. This may be progressive heart failure without congestion. I will leave the diuretic management up to nephrology. Medications: Current Inpatient Medications Medications (Trade) Dose Ordered Sig/Quoc Route Start Time Stop Time Status Last Admin Dose Admin Albuterol (Ventolin Hfa Inhaler) 2 puffs Q6H PRN INH 05/31/17 13:00 06/30/17 12:59 Amiodarone HCl (Cordarone Tab) 200 mg DAILY PO 06/01/17 09:00 07/01/17 08:59 06/01/17 08:42 200 MG Ascorbic Acid (Vitamin C Tab) 1,000 mg DAILY PO 06/01/17 09:00 07/01/17 08:59 06/01/17 08:42 1,000 MG Atorvastatin Calcium (Lipitor Tab) 10 mg DAILY PO 06/01/17 09:00 07/01/17 08:59 06/01/17 08:42 10 MG Calcitriol (Rocaltrol Cap) 0.25 mcg MoWeFr@0900 PO 05/31/17 16:00 06/30/17 15:59 05/31/17 15:33 0.25 MCG Cholecalciferol (Vitamin D Tab) 1,000 inter.unit DAILY PO 06/01/17 09:00 07/01/17 08:59 06/01/17 08:42 1,000 INTER.UNIT Clopidogrel Bisulfate (plAVix TAB) 75 mg DAILY PO 06/01/17 09:00 07/01/17 08:59 06/01/17 08:41 75 MG Finasteride (Proscar Tab) 5 mg DAILY PO 06/01/17 09:00 07/01/17 08:59 06/01/17 08:41 5 MG Fluticasone Propionate (Flonase Nasal [place]) 2 sprays DAILY RICHA 06/01/17 09:00 07/01/17 08:59 06/01/17 08:42 2 SPRAYS Metoprolol Succinate (Toprol Xl Tab) 50 mg DAILY PO 06/01/17 09:00 07/01/17 08:59 06/01/17 08:41 50 MG Multivitamins/ Minerals (Multivitamin W/ Minerals Tab) 1 tab DAILY PO 06/01/17 09:00 07/01/17 08:59 06/01/17 08:41 1 TAB Amylase/Lipase/ Protease (Pancreaze (Lipase 10,500U) Cap) 1 cap QID PO 05/31/17 17:00 06/30/17 16:59 06/01/17 08:41 1 CAP Senna/Docusate Sodium (Senokot S Tab) 1 tab DAILY PO 06/01/17 09:00 07/01/17 08:59 06/01/17 08:41 1 TAB Tamsulosin HCl (Flomax Cap) 0.4 mg DAILY PO 06/01/17 09:00 07/01/17 08:59 06/01/17 08:41 0.4 MG Pantoprazole Sodium (Protonix Tab) 40 mg QAM PO 06/01/17 09:00 07/01/17 08:59 06/01/17 08:41 40 MG Miscellaneous Information (Order Awaiting Action) 1 ea QS N/A 05/31/17 16:00 06/30/17 15:59 Oxycodone HCl (Roxicodone Immediate Rel Tab) 10 mg Q6H PRN PO 05/31/17 13:45 06/14/17 13:44 Potassium Chloride (Klor-Con M10) 10 meq DAILY PO 06/01/17 09:00 07/01/17 08:59 06/01/17 08:42 10 MEQ Warfarin Sodium (Coumadin Tab) 1 mg DAILY@16 PO 06/01/17 16:00 07/01/17 15:59 Furosemide 80 mg/ Syringe 8 ml @ 4 mls/min Q8H IV 06/01/17 00:00 07/01/17 00:00 06/01/17 08:40 4 MLS/MIN Acetaminophen (Tylenol Tab) 650 mg Q4H PRN PO 05/31/17 13:15 06/30/17 13:14 06/01/17 03:10 650 MG Magnesium Hydroxide (Milk Of Magnesia Susp) 30 ml Q12H PRN PO 05/31/17 13:15 06/30/17 13:14 Nitroglycerin (Nitrostat Tab) 0.4 mg UD PRN SL 05/31/17 13:15 06/30/17 13:14 Polyethylene (Miralax Powder Packet) 17 gm DAILY PRN PO 05/31/17 13:15 06/30/17 13:14 Ipratropium [place] (Atrovent 0.02% 0.5MG/2.5ML Neb) 0.5 mg Q6RWA INH 05/31/17 15:00 06/30/17 14:59 06/01/17 07:14 0.5 MG Levalbuterol (Xopenex 1.25MG/ 0.5ML Neb) 1.25 mg Q6RWA INH 05/31/17 15:00 06/30/17 14:59 06/01/17 07:13 1.25 MG Insulin Aspart (novoLOG ASPART) SLIDING SCALE If C... ACHS SC 05/31/17 16:15 06/30/17 16:14 06/01/17 08:45 4 UNITS Glucose (Glucose 40% Gel) 15-30 GRAMS 15 GRAMS... UD PRN PO 05/31/17 13:45 06/30/17 13:44 Glucose (Glucose Chew Tab) 4-8 Tablets 4 Tabl... UD PRN PO 05/31/17 13:45 06/30/17 13:44 Dextrose (Dextrose 50% 50ML Syringe) 25-50ML OF 50% DW IV FOR... UD PRN IV 05/31/17 13:45 06/30/17 13:44 Glucagon (Glucagon Inj) 1 mg UD PRN SQ 05/31/17 13:45 06/30/17 13:44 Miscellaneous Information (Consult Glycemic Management Pharmacy) 1 ea UD N/A 05/31/17 14:48 06/30/17 14:47 Insulin Human NPH (novoLIN-N NPH) SEE PROTOCOL TEXT BIDM SC 05/31/17 21:00 06/30/17 20:59 Lab Results: Last 24 Hours Test 05/31/17 10:00 05/31/17 11:45 05/31/17 11:47 05/31/17 16:26 White Blood Count 9.15 K/uL Red Blood Count 3.62 M/uL Hemoglobin 11.7 g/dL Hematocrit 35.8 % Mean Corpuscular Volume 98.9 fL Mean Corpuscular Hemoglobin 32.3 pg Mean Corpuscular Hemoglobin Concent 32.7 g/dl Platelet Count 182 K/uL Mean Platelet Volume 9.6 fL Neutrophils (%) (Auto) 73.4 % Lymphocytes (%) (Auto) 14.9 % Monocytes (%) (Auto) 7.4 % Eosinophils (%) (Auto) 3.4 % Basophils (%) (Auto) 0.4 % Neutrophils # (Auto) 6.71 K/uL Lymphocytes # (Auto) 1.36 K/uL Monocytes # (Auto) 0.68 K/uL Eosinophils # (Auto) 0.31 K/uL Basophils # (Auto) 0.04 K/uL RDW Standard Deviation 60.1 fL RDW Coefficient of Variation 16.7 % Immature Granulocyte % (Auto) 0.5 % Immature Granulocyte # (Auto) 0.05 K/uL Prothrombin Time 38.5 SECONDS Prothromb Time International Ratio 3.8 Activated Partial Thromboplast Time 45.7 SECONDS Partial Thromboplastin Ratio 1.8 Sodium Level 141 mmol/L Potassium Level 3.7 mmol/L Chloride Level 110 mmol/L Carbon Dioxide Level 24 mmol/L Anion Gap 7.0 mmol/L Blood Urea Nitrogen 37 mg/dl Creatinine 2.81 mg/dl Est Creatinine Clear Calc Drug Dose 20.0 ml/min Estimated GFR () 23.0 Estimated GFR (Non- 19.9 BUN/Creatinine Ratio 13.1 Random Glucose 59 mg/dl Estimated Average Glucose 146 mg/dl Hemoglobin A1c 6.7 % Calcium Level 8.2 mg/dl Total Bilirubin 0.5 mg/dl Aspartate Amino Transf (AST/SGOT) 15 U/L Alanine Aminotransferase (ALT/SGPT) 21 U/L Alkaline Phosphatase 116 U/L Troponin I 0.217 ng/ml Pro-B-Type Natriuretic Peptide 35838 pg/ml Total Protein 7.6 gm/dl Albumin 3.4 gm/dl Globulin 4.2 gm/dl Albumin/Globulin Ratio 0.8 Thyroid Stimulating Hormone (TSH) 1.700 uIu/ml Urine Color YELLOW Urine Appearance CLEAR Urine pH 5.0 Urine Specific [place] 1.012 Urine Protein NEG Urine Glucose (UA) NEG Urine Ketones NEG Urine Occult Blood NEG Urine Nitrite NEG Urine Bilirubin NEG Urine Urobilinogen NEG Urine Leukocyte Esterase NEG Bedside Glucose 52 mg/dl 149 mg/dl Test 05/31/17 19:22 05/31/17 20:28 05/31/17 23:15 06/01/17 00:57 Troponin I 0.177 ng/ml 0.188 ng/ml Bedside Glucose 160 mg/dl Urine Color YELLOW Urine Appearance CLEAR Urine pH 5.0 Urine Specific [place] 1.010 Urine Protein NEG Urine Glucose (UA) NEG Urine Ketones NEG Urine Occult Blood NEG Urine Nitrite NEG Urine Bilirubin NEG Urine Urobilinogen NEG Urine Leukocyte Esterase NEG Test 06/01/17 06:39 06/01/17 07:00 Bedside Glucose 138 mg/dl White Blood Count 8.98 K/uL Red Blood Count 3.51 M/uL Hemoglobin 11.3 g/dL Hematocrit 34.3 % Mean Corpuscular Volume 97.7 fL Mean Corpuscular Hemoglobin 32.2 pg Mean Corpuscular Hemoglobin Concent 32.9 g/dl RDW Standard Deviation 60.8 fL RDW Coefficient of Variation 17.0 % Platelet Count 188 K/uL Mean Platelet Volume 9.6 fL Prothrombin Time 45.1 SECONDS Prothromb Time International Ratio 4.4 Sodium Level 139 mmol/L Potassium Level 3.8 mmol/L Chloride Level 106 mmol/L Carbon Dioxide Level 24 mmol/L Anion Gap 9.0 mmol/L Blood Urea Nitrogen 38 mg/dl Creatinine 2.77 mg/dl Est Creatinine Clear Calc Drug Dose 20.2 ml/min Estimated GFR () 23.4 Estimated GFR (Non- 20.2 BUN/Creatinine Ratio 13.8 Random Glucose 147 mg/dl Calcium Level 8.4 mg/dl Phosphorus Level 3.4 mg/dl Magnesium Level 2.4 mg/dl Total Bilirubin 0.5 mg/dl Direct Bilirubin 0.2 mg/dl Aspartate Amino Transf (AST/SGOT) 17 U/L Alanine Aminotransferase (ALT/SGPT) 20 U/L Alkaline Phosphatase 115 U/L Troponin I 0.246 ng/ml Total Protein 7.1 gm/dl Albumin 3.2 gm/dl Globulin 3.9 gm/dl Albumin/Globulin Ratio 0.8 Triglycerides Level 110 mg/dl Cholesterol Level 103 mg/dl HDL Cholesterol 54 mg/dl LDL Cholesterol, Calculated 27 mg/dl VLDL Cholesterol, Calculated 22 mg/dl Cholesterol/HDL Ratio 1.9
--- NOTE | 2017-06-01 12:33 | Pharmacy Progress Note ---
Pharmacy Glycemic Short Note 2 Date of Service Jun 01, 2017. OUTPATIENT ANTIDIABETIC REGIMEN: * NovoLog 70/30 Pre-Mixed insulin * 28 units in AM + 12 units in PM ASSESSMENT: * 82yo T2DM male admitted for CHF exacerbation- pt with hypoglycemia on admission. Hypo resolved with OJ, crackers, and meal tray. * Have been holding basal insulin and just using bolus insulin monotherapy per CF/CR * Plan is to restart basal insulin at conservative dosing when BSG >180 mg/dl. * Outpatient regimen is premixed basal/prandial insulin of NovoLog 70/30 mix insulin. * This is difficult to titrate since it is in a fixed distribution of basal/ prandial insulin. Holding pre-mixed insulin and using NPH + NovoLog so individual components can be titrated separately * BSGs over the past 24hrs: 148, 160, 138, 241 * Since BSG now >180 mg/dl will resume basal insulin conservatively PLAN FOR INPATIENT GLYCEMIC CONTROL: * Hold outpatient oral diabetes medications * Basal insulin * NPH 8 units SQ BID * Bolus insulin * NovoLog per scale ACHS or Q6hrs while NPO * Goal Range: Low 120 mg/dL - High 160 mg/dL * Correction Factor: 40 mg/dL/unit * Nutritional / Prandial insulin per carb ratio of 1 unit per 13 grams CHO consumed PLAN FOR DISCHARGE: * A1c = 7.7 % 02/16/17 & 6.7% on 05/31/17 * Although this result may not be totally reliable secondary to CKD and anemia. However, A1c should be reliable when being compared to itself. Since A1c has dropped one point over the past 4 months it is likely that patient is experiencing hypoglycemia as an outpatient and outpatient regimen needs decreased.
--- NOTE | 2017-06-01 14:08 | Progress Note ---
Medicine Progress Note Date & Time of Visit: Jun 01, 2017 at 13:36. Subjective Pt was seen and examined Lying in bed with no distress Pt said that breathing feels slightly better Denies any chest pain, palpitation, dizziness and SOB Objective Last 8 Hrs Date Time Temp Pulse Resp B/P (MAP) Pulse Ox O2 Delivery O2 Flow Rate FiO2 06/01/17 12:12 36.6 69 18 122/68 (86) 97 Room Air 06/01/17 12:00 Room Air 06/01/17 08:35 69 18 113/53 (73) 100 06/01/17 08:00 Room Air 06/01/17 07:15 72 16 92 Room Air Physical Exam: General- No acute discharge Head- atraumatic Eyes- PERRL, EOMI ENT- oropharynx clear Neck- supple, no JVD Lungs- No crackles Heart- irregular rhythm Abdomen- normal bowel sounds, soft Extremities- no calf tenderness Neuro- alert, oriented x 3; PERRL, EOMI Skin- warm & dry Laboratory Results: Last 24 Hours Test 05/31/17 16:26 05/31/17 19:22 05/31/17 20:28 05/31/17 23:15 Bedside Glucose 149 mg/dl 160 mg/dl Troponin I 0.177 ng/ml Urine Color YELLOW Urine Appearance CLEAR Urine pH 5.0 Urine Specific [place] 1.010 Urine Protein NEG Urine Glucose (UA) NEG Urine Ketones NEG Urine Occult Blood NEG Urine Nitrite NEG Urine Bilirubin NEG Urine Urobilinogen NEG Urine Leukocyte Esterase NEG Test 06/01/17 00:57 06/01/17 06:39 06/01/17 07:00 06/01/17 11:09 Troponin I 0.188 ng/ml 0.246 ng/ml Bedside Glucose 138 mg/dl 241 mg/dl White Blood Count 8.98 K/uL Red Blood Count 3.51 M/uL Hemoglobin 11.3 g/dL Hematocrit 34.3 % Mean Corpuscular Volume 97.7 fL Mean Corpuscular Hemoglobin 32.2 pg Mean Corpuscular Hemoglobin Concent 32.9 g/dl RDW Standard Deviation 60.8 fL RDW Coefficient of Variation 17.0 % Platelet Count 188 K/uL Mean Platelet Volume 9.6 fL Prothrombin Time 45.1 SECONDS Prothromb Time International Ratio 4.4 Sodium Level 139 mmol/L Potassium Level 3.8 mmol/L Chloride Level 106 mmol/L Carbon Dioxide Level 24 mmol/L Anion Gap 9.0 mmol/L Blood Urea Nitrogen 38 mg/dl Creatinine 2.77 mg/dl Est Creatinine Clear Calc Drug Dose 20.2 ml/min Estimated GFR () 23.4 Estimated GFR (Non- 20.2 BUN/Creatinine Ratio 13.8 Random Glucose 147 mg/dl Calcium Level 8.4 mg/dl Phosphorus Level 3.4 mg/dl Magnesium Level 2.4 mg/dl Total Bilirubin 0.5 mg/dl Direct Bilirubin 0.2 mg/dl Aspartate Amino Transf (AST/SGOT) 17 U/L Alanine Aminotransferase (ALT/SGPT) 20 U/L Alkaline Phosphatase 115 U/L Total Protein 7.1 gm/dl Albumin 3.2 gm/dl Globulin 3.9 gm/dl Albumin/Globulin Ratio 0.8 Triglycerides Level 110 mg/dl Cholesterol Level 103 mg/dl HDL Cholesterol 54 mg/dl LDL Cholesterol, Calculated 27 mg/dl VLDL Cholesterol, Calculated 22 mg/dl Cholesterol/HDL Ratio 1.9 Test 06/01/17 12:31 Troponin I 0.202 ng/ml Assessment & Plan ACUTE ON CHRONIC SYSTOLIC CHF Present with worsening SOB Last Echo in 08/2016 showed EF30-35%. On Lasix 80 mg IV q8h has not been diuresis much Continue 1.8L fluid restriction Continue oxygen supplement Cardiology on board case discussed with cardiology and deferred diuresis management as per Nephro Continue monitor electrolytes Echo pending CHEST DISCOMFORT ELEVATED TROPONIN Hx CAD s/p STENT. R/O ACS Hx of chronic elevating troponin Troponin on admission 0.217, trop trending down slightly EKG showed paced with no ischemic changes Continue statin, beta mansi, Plavix A-FIB ON COUMADIN rate controlled with amiodarone and beta mansi ventricular paced rhythm on EKG Coumadin on hold with INR 4.4 today Continue monitor INR BRADYCARDIA S/P PACER/AICD Pt reports firing ICD 2 weeks ago Pacemaker was interrogated and change was made JOSUÉ ON CKD IV Cr: 2..8 on admission Creatine was 2.3 on 05/13/17 On IV lasix Nephrology on board Continue monitor BMP DM II HBA1C 6.7 BS has been stable Monitor BS HTN Continue metoprolol Stable COPD Continue respiratory treatment Hx PANCREATIC CA s/p WHIPPLE Continue pancreas enzymes BPH continue Flomax, Proscar PROLONG QTC Will avoid med that prolong qtc Zoloft on hold repeat EKG in am GERD continue PPI DEPRESSION Hold Zoloft /SSRI for prolong Qtc Stable DVT Prophylaxis Hold Coumadin INR 4.4 CODE STATUS DNR DISPOSITION Continue monitor in tele Current Inpatient Medications: Current Inpatient Medications Medications (Trade) Dose Ordered Sig/Quoc Route Start Time Stop Time Status Last Admin Dose Admin Albuterol (Ventolin Hfa Inhaler) 2 puffs Q6H PRN INH 05/31/17 13:00 06/30/17 12:59 Amiodarone HCl (Cordarone Tab) 200 mg DAILY PO 06/01/17 09:00 07/01/17 08:59 06/01/17 08:42 200 MG Ascorbic Acid (Vitamin C Tab) 1,000 mg DAILY PO 06/01/17 09:00 07/01/17 08:59 06/01/17 08:42 1,000 MG Atorvastatin Calcium (Lipitor Tab) 10 mg DAILY PO 06/01/17 09:00 07/01/17 08:59 06/01/17 08:42 10 MG Calcitriol (Rocaltrol Cap) 0.25 mcg MoWeFr@0900 PO 05/31/17 16:00 06/30/17 15:59 05/31/17 15:33 0.25 MCG Cholecalciferol (Vitamin D Tab) 1,000 inter.unit DAILY PO 06/01/17 09:00 07/01/17 08:59 06/01/17 08:42 1,000 INTER.UNIT Clopidogrel Bisulfate (plAVix TAB) 75 mg DAILY PO 06/01/17 09:00 07/01/17 08:59 06/01/17 08:41 75 MG Finasteride (Proscar Tab) 5 mg DAILY PO 06/01/17 09:00 07/01/17 08:59 06/01/17 08:41 5 MG Fluticasone Propionate (Flonase Nasal [place]) 2 sprays DAILY RICHA 06/01/17 09:00 07/01/17 08:59 06/01/17 08:42 2 SPRAYS Metoprolol Succinate (Toprol Xl Tab) 50 mg DAILY PO 06/01/17 09:00 07/01/17 08:59 06/01/17 08:41 50 MG Multivitamins/ Minerals (Multivitamin W/ Minerals Tab) 1 tab DAILY PO 06/01/17 09:00 07/01/17 08:59 06/01/17 08:41 1 TAB Amylase/Lipase/ Protease (Pancreaze (Lipase 10,500U) Cap) 1 cap QID PO 05/31/17 17:00 06/30/17 16:59 06/01/17 12:55 1 CAP Senna/Docusate Sodium (Senokot S Tab) 1 tab DAILY PO 06/01/17 09:00 07/01/17 08:59 06/01/17 08:41 1 TAB Tamsulosin HCl (Flomax Cap) 0.4 mg DAILY PO 06/01/17 09:00 07/01/17 08:59 06/01/17 08:41 0.4 MG Pantoprazole Sodium (Protonix Tab) 40 mg QAM PO 06/01/17 09:00 07/01/17 08:59 06/01/17 08:41 40 MG Miscellaneous Information (Order Awaiting Action) 1 ea QS N/A 05/31/17 16:00 06/30/17 15:59 Oxycodone HCl (Roxicodone Immediate Rel Tab) 10 mg Q6H PRN PO 05/31/17 13:45 06/14/17 13:44 Potassium Chloride (Klor-Con M10) 10 meq DAILY PO 06/01/17 09:00 07/01/17 08:59 06/01/17 08:42 10 MEQ Warfarin Sodium (Coumadin Tab) 1 mg DAILY@16 PO 06/01/17 16:00 07/01/17 15:59 Furosemide 80 mg/ Syringe 8 ml @ 4 mls/min Q8H IV 06/01/17 00:00 07/01/17 00:00 06/01/17 08:40 4 MLS/MIN Acetaminophen (Tylenol Tab) 650 mg Q4H PRN PO 05/31/17 13:15 06/30/17 13:14 06/01/17 03:10 650 MG Magnesium Hydroxide (Milk Of Magnesia Susp) 30 ml Q12H PRN PO 05/31/17 13:15 06/30/17 13:14 Nitroglycerin (Nitrostat Tab) 0.4 mg UD PRN SL 05/31/17 13:15 06/30/17 13:14 Polyethylene (Miralax Powder Packet) 17 gm DAILY PRN PO 05/31/17 13:15 06/30/17 13:14 Ipratropium [place] (Atrovent 0.02% 0.5MG/2.5ML Neb) 0.5 mg Q6RWA INH 05/31/17 15:00 06/30/17 14:59 06/01/17 07:14 0.5 MG Levalbuterol (Xopenex 1.25MG/ 0.5ML Neb) 1.25 mg Q6RWA INH 05/31/17 15:00 06/30/17 14:59 06/01/17 07:13 1.25 MG Insulin Aspart (novoLOG ASPART) SLIDING SCALE If C... ACHS SC 05/31/17 16:15 06/30/17 16:14 06/01/17 13:00 6 UNITS Glucose (Glucose 40% Gel) 15-30 GRAMS 15 GRAMS... UD PRN PO 05/31/17 13:45 06/30/17 13:44 Glucose (Glucose Chew Tab) 4-8 Tablets 4 Tabl... UD PRN PO 05/31/17 13:45 06/30/17 13:44 Dextrose (Dextrose 50% 50ML Syringe) 25-50ML OF 50% DW IV FOR... UD PRN IV 05/31/17 13:45 06/30/17 13:44 Glucagon (Glucagon Inj) 1 mg UD PRN SQ 05/31/17 13:45 06/30/17 13:44 Miscellaneous Information (Consult Glycemic Management Pharmacy) 1 ea UD N/A 05/31/17 14:48 06/30/17 14:47 Insulin Human NPH (novoLIN-N NPH) 8 units BID SC 06/01/17 12:30 07/01/17 12:29 06/01/17 13:01 8 UNITS
--- NOTE | 2017-06-01 14:51 | ECHOCARDIOGRAM REPORT ---
*NOTICE TO RECEIVING CONSTITUTION [employer]Y AGENCY This information is strictly Confidential and protected under [place] law. [place] law prohibits you from making any further disclosure of this information unless further disclosure is expressly permitted by the written consent of the person to whom it pertains or is authorized by law. A general authorization for the release of medical or other information is not sufficient for this purpose. Hospital accepts no responsibility if the information is made available to any other person, INCLUDING THE PATIENT. Interpretation Summary * Name: CALLY LOONEY JR Study Date: 06/01/2017 10:50 AM BP: 99/64 mmHg * Patient Location: [facility] HR: 88 * : 1935 (M/d/yyyy) Gender: Male Height: 65 in * Age: 82 yrs Ethnicity: CA Weight: 187 lb * Ordering Physician: Shelley Foreman * Referring Physician: Self, Referred * Performed By: Priya Tejada RDCS * * Reason For Study: Congestive Heart Failure * BSA: 1.9 m2 * -- Conclusions -- * The left ventricle is moderately dilated. * Left ventricular systolic function is severely reduced. * Ejection Fraction = 25-30%. * The right ventricular systolic function is moderately reduced. * The left atrium is moderately dilated. * The right atrium is moderately dilated. * Mild to moderate aortic regurgitation. * Moderate pulmonic valvular regurgitation. * There is severe mitral regurgitation. * There is moderate tricuspid regurgitation. * Moderate pulmonary hypertentsion. Procedure Details * A complete two-dimensional transthoracic echocardiogram was performed (2D, M-mode, Doppler and color flow Doppler). Left Ventricle * The left ventricle is moderately dilated. * There is no thrombus. * There is moderate concentric left ventricular hypertrophy. * Ejection Fraction = 25-30%. * Left ventricular systolic function is severely reduced. Right Ventricle * The right ventricle is normal size. * The right ventricular systolic function is moderately reduced. Atria * The left atrium is moderately dilated. * The right atrium is moderately dilated. Mitral Valve * The mitral valve leaflets appear thickened, but open well. * There is severe mitral regurgitation. Tricuspid Valve * Tricuspid leaflets are thickened. * There is moderate tricuspid regurgitation. Aortic Valve * The aortic valve is not well visualized. * No hemodynamically significant valvular aortic stenosis. * Mild to moderate aortic regurgitation. Pulmonic Valve * The pulmonic valve is not well visualized. * Moderate pulmonic valvular regurgitation. Great Vessels * The aortic root and proximal ascending aorta are normal sized. * Moderate pulmonary hypertentsion. Pericardium/Pleural * There is no pericardial effusion. MMode 2D Measurements and Calculations IVSd 1.1 cm IVSs 1.7 cm LVIDd 5.7 cm LVIDs 5.0 cm LVPWd 1.7 cm LVPWs 1.6 cm IVS/LVPW 0.67 FS 13.1 % EDV(Teich) 162.9 ml ESV(Teich) 117.8 ml EF(Teich) 27.7 % EDV(cubed) 189.5 ml ESV(cubed) 124.4 ml EF(cubed) 34.4 % % IVS thick 53.0 % % LVPW thick -4.34 % LV mass(C)d 357.4 grams LV mass(C)dI 185.9 grams/m\S\2 LV mass(C)s 370.4 grams LV mass(C)sI 192.7 grams/m\S\2 SV(Teich) 45.1 ml SI(Teich) 23.5 ml/m\S\2 SV(cubed) 65.1 ml SI(cubed) 33.9 ml/m\S\2 EPSS 2.0 cm Ao root diam 2.9 cm Ao root area 6.5 cm\S\2 ACS 1.3 cm LA dimension 4.4 cm LA/Ao 1.5 LVAd ap4 38.3 cm\S\2 LVLd ap4 8.8 cm EDV(MOD-sp4) 143.1 ml EDV(sp4-el) 140.7 ml LVAs ap4 31.1 cm\S\2 LVLs ap4 8.0 cm ESV(MOD-sp4) 99.9 ml ESV(sp4-el) 102.1 ml EF(MOD-sp4) 30.2 % EF(sp4-el) 27.5 % LVAd ap2 38.9 cm\S\2 LVLd ap2 9.3 cm EDV(MOD-sp2) 144.0 ml EDV(sp2-el) 137.4 ml LVAs ap2 32.2 cm\S\2 LVLs ap2 8.7 cm ESV(MOD-sp2) 103.2 ml ESV(sp2-el) 100.6 ml EF(MOD-sp2) 28.3 % EF(sp2-el) 26.8 % LVLd %diff 5.4 % EDV(MOD-bp) 147.4 ml LVLs %diff 8.2 % ESV(MOD-bp) 100.6 ml EF(MOD-bp) 31.7 % SV(MOD-sp4) 43.2 ml SI(MOD-sp4) 22.5 ml/m\S\2 SV(MOD-sp2) 40.8 ml SI(MOD-sp2) 21.2 ml/m\S\2 SV(MOD-bp) 46.8 ml SI(MOD-bp) 24.3 ml/m\S\2 SV(sp4-el) 38.6 ml SI(sp4-el) 20.1 ml/m\S\2 SV(sp2-el) 36.8 ml SI(sp2-el) 19.1 ml/m\S\2 Doppler Measurements and Calculations MV E max jony 96.6 cm/sec MV A max jony 45.3 cm/sec MV E/A 2.1 MV dec time 0.23 sec Ao V2 max 166.3 cm/sec Ao max PG 11.1 mmHg Ao max PG (full) 9.2 mmHg AI max jony 370.8 cm/sec AI max PG 55.0 mmHg AI dec slope 249.0 cm/sec\S\2 AI P1/2t 436.2 msec LV V1 max PG 1.9 mmHg LV V1 max 68.3 cm/sec MR max jony 531.5 cm/sec MR max PG 113.0 mmHg MR mean jony 385.9 cm/sec MR mean PG 68.9 mmHg MR VTI 183.0 cm MR PISA 2.1 cm\S\2 MR PISA radius 0.58 cm PA V2 max 77.2 cm/sec PA max PG 2.4 mmHg PI max jony 243.7 cm/sec PI max PG 24.0 mmHg PI dec slope 249.3 cm/sec\S\2 PI P1/2t 286.3 msec TR max jony 275.2 cm/sec
[2017-06-02] VITALS (9 sets, daily range): BP systolic 97–117; BP diastolic 53–80; PULSE 70–80; TEMP 36.5–36.8; O2SAT 92–98
[2017-06-02 06:17] LABS: HEMATOCRIT 30.1 % (42-52); HEMOGLOBIN 10.1 g/dL (14.0-18.0); MEAN CELL VOLUME 96.5 fL (80-100); MEAN CORPUSCULAR HEMOGLOBIN 32.4 pg (25-34); MEAN CORPUSCULAR HGB CONC 33.6 g/dl (32-36); MEAN PLATELET VOLUME 9.6 fL (7.4-10.4); PLATELET COUNT 164 K/uL (130-400); RED CELL DISTRIBUTION WIDTH CV 16.7 % (11.5-14.5); RED CELL DISTRIBUTION WIDTH SD 58.7 fL (36.4-46.3); WHITE BLOOD COUNT 6.95 K/uL (4.8-10.8)
[2017-06-02 06:49] LABS: ALBUMIN 2.8 gm/dl (3.4-5.0); CREATININE 2.6 mg/dl (0.60-1.40); POTASSIUM 3.3 mmol/L (3.5-5.1)
[2017-06-02 06:52] LABS: PHOSPHORUS 3.3 mg/dl (2.5-4.9); TOTAL PROTEIN 6.5 gm/dl (6.4-8.2)
[2017-06-02] MEDS: INSULIN ASPART 100 UNITS/ML 3 ML PEN SC SCH ×4 (07:00→21:00)
[2017-06-02 07:01] LABS: INR 4.2 (0.9-1.1)
[2017-06-02] MEDS: LEVALBUTEROL 1.25MG/0.5ML NEB INH SCH ×3 (07:01→19:15)
[2017-06-02] MEDS: IPRATROPIUM BROMIDE NEB SOLN 0.02% 2.5 ML VIAL INH SCH ×3 (07:01→19:14)
[2017-06-02] MEDS: PANCREAZE (LIPASE 10,500U) CAP PO SCH ×4 (07:54→21:00)
[2017-06-02] MEDS: CLOPIDOGREL BISULFATE 75 MG TAB PO SCH (07:54)
[2017-06-02] MEDS: ATORVASTATIN 10 MG TAB PO SCH (07:54)
[2017-06-02] MEDS: PANTOprazole SOD 40 MG TAB PO SCH (07:55)
[2017-06-02] MEDS: DOCUSATE SODIUM/SENNA 50/8.6MG TAB PO SCH (07:55)
[2017-06-02] MEDS: METOPROLOL SUCC 50MG EXT REL TAB PO SCH (07:55)
[2017-06-02] MEDS: FINASTERIDE 5 MG TAB PO SCH (07:55)
[2017-06-02] MEDS: FUROSEMIDE INJ 80 MG in SYRINGE 0 ML IV SCH ×2 (07:55)
[2017-06-02] MEDS: POTASSIUM CHLORIDE 10 MEQ TABCR PO SCH (07:56)
[2017-06-02] MEDS: TAMSULOSIN HCL 0.4 MG CAP PO SCH (07:56)
[2017-06-02] MEDS: CHOLECALCIFEROL 1000 INTER.UNIT TAB PO SCH (07:57)
[2017-06-02] MEDS: ASCORBIC ACID 500 MG TAB PO SCH (07:57)
[2017-06-02] MEDS: AMIODARONE 200 MG TAB PO SCH (07:57)
[2017-06-02] MEDS: CEROVITE ADV FORMULA TAB PO SCH (07:58)
[2017-06-02] MEDS: FLUTICASONE PROPIONATE NA SPR 16 GM BTL NAE SCH (07:58)
[2017-06-02] MEDS: INSULIN HUMAN NPH SC SCH ×2 (08:00→22:57)
[2017-06-02] MEDS ORDERED: POTASSIUM CHLORIDE 20 MEQ TABCR PO ONE (08:54)
--- NOTE | 2017-06-02 10:27 | Cardiology Follow-Up ---
Subjective Subjective Date of Service: Jun 02, 2017. Pt evaluation today including: conversation w/ patient, conversation w/ family , physical exam, chart review, lab review, review of studies, review of inpatient medication list Additional Details: The patient had an uneventful night. He denies progressive shortness of breath or chest pain. He's had no dizziness or lightheadedness. Problem List Medical Problems: (1) Acute bronchitis Status: Acute (2) Chronic renal disease Status: Acute (3) Elevated troponin Status: Acute (4) Elevated troponin Status: Acute (5) Elevated troponin Status: Acute (6) Falls Status: Acute (7) Hypokalemia Status: Acute (8) Hypokalemia Status: Acute (9) Influenza Status: Acute (10) Orthostasis Status: Acute (11) Pulmonary edema Status: Acute (12) SOB (shortness of breath) Status: Acute (13) Systolic congestive heart failure Status: Acute (14) UTI (urinary tract infection) Status: Acute Review of Systems Constitutional: + problem reported (wt gain), No fever, No weight loss, No fatigue Eyes: No worsening of vision Respiratory: + shortness of breath, + dyspnea on exertion, No cough Cardiac: No chest pain, No edema, No palpitations Musculoskeletal: No joint pain, No muscle pain Male : + problem reported (no change in chronic voiding habits) Neurologic: + weakness, No memory loss, No balance problems Psychiatric: No depression symptoms, No anxiety Heme: No abnormal bleeding/bruising Endo: + fatigue Objective Vital Signs Last Vital Signs Documentation Date Time Temp Pulse Resp B/P (MAP) Pulse Ox O2 Delivery O2 Flow Rate FiO2 06/02/17 08:25 36.8 73 18 115/57 (76) 95 Room Air 05/31/17 10:04 2.0 Physical Exam: General Appearance: no apparent distress ENT: normal ENT inspection, hearing grossly normal Neck: no adenopathy, no JVD Respiratory/Chest: no respiratory distress, no accessory muscle use Cardiovascular: regular rate, rhythm, no edema, no gallop, no JVD Abdomen: non tender, soft Extremities: normal inspection Neurologic/Psychiatric: alert Skin: normal color Lymphatic: no adenopathy Assessment and Plan Impression: 1. Chronic systolic heart failure 2. Chronic renal failure 3. Persistent atrial fibrillation 4. Biventricular pacemaker Recommendations: I believe this patient's congestive heart failure has resolved. I encouraged him to increase his activities walk around the unit. I will switch him from IV Lasix to oral. His labs remaining stable including his creatinine. Medications: Current Inpatient Medications Medications (Trade) Dose Ordered Sig/Quoc Route Start Time Stop Time Status Last Admin Dose Admin Albuterol (Ventolin Hfa Inhaler) 2 puffs Q6H PRN INH 05/31/17 13:00 06/30/17 12:59 Amiodarone HCl (Cordarone Tab) 200 mg DAILY PO 06/01/17 09:00 07/01/17 08:59 06/02/17 07:57 200 MG Ascorbic Acid (Vitamin C Tab) 1,000 mg DAILY PO 06/01/17 09:00 07/01/17 08:59 06/02/17 07:57 1,000 MG Atorvastatin Calcium (Lipitor Tab) 10 mg DAILY PO 06/01/17 09:00 07/01/17 08:59 06/02/17 07:54 10 MG Calcitriol (Rocaltrol Cap) 0.25 mcg MoWeFr@0900 PO 05/31/17 16:00 06/30/17 15:59 05/31/17 15:33 0.25 MCG Cholecalciferol (Vitamin D Tab) 1,000 inter.unit DAILY PO 06/01/17 09:00 07/01/17 08:59 06/02/17 07:57 1,000 INTER.UNIT Clopidogrel Bisulfate (plAVix TAB) 75 mg DAILY PO 06/01/17 09:00 07/01/17 08:59 06/02/17 07:54 75 MG Finasteride (Proscar Tab) 5 mg DAILY PO 06/01/17 09:00 07/01/17 08:59 06/02/17 07:55 5 MG Fluticasone Propionate (Flonase Nasal [place]) 2 sprays DAILY RICHA 06/01/17 09:00 07/01/17 08:59 06/02/17 07:58 2 SPRAYS Metoprolol Succinate (Toprol Xl Tab) 50 mg DAILY PO 06/01/17 09:00 07/01/17 08:59 06/02/17 07:55 50 MG Multivitamins/ Minerals (Multivitamin W/ Minerals Tab) 1 tab DAILY PO 06/01/17 09:00 07/01/17 08:59 06/02/17 07:58 1 TAB Amylase/Lipase/ Protease (Pancreaze (Lipase 10,500U) Cap) 1 cap QID PO 05/31/17 17:00 06/30/17 16:59 06/02/17 07:54 1 CAP Senna/Docusate Sodium (Senokot S Tab) 1 tab DAILY PO 06/01/17 09:00 07/01/17 08:59 06/02/17 07:55 1 TAB Tamsulosin HCl (Flomax Cap) 0.4 mg DAILY PO 06/01/17 09:00 07/01/17 08:59 06/02/17 07:56 0.4 MG Pantoprazole Sodium (Protonix Tab) 40 mg QAM PO 06/01/17 09:00 07/01/17 08:59 06/02/17 07:55 40 MG Miscellaneous Information (Order Awaiting Action) 1 ea QS N/A 05/31/17 16:00 06/30/17 15:59 Oxycodone HCl (Roxicodone Immediate Rel Tab) 10 mg Q6H PRN PO 05/31/17 13:45 06/14/17 13:44 Potassium Chloride (Klor-Con M10) 10 meq DAILY PO 06/01/17 09:00 07/01/17 08:59 06/02/17 07:56 10 MEQ Warfarin Sodium (Coumadin Tab) 1 mg DAILY@16 PO 06/01/17 16:00 07/01/17 15:59 Future Hold Furosemide 80 mg/ Syringe 8 ml @ 4 mls/min Q8H IV 06/01/17 00:00 07/01/17 00:00 06/02/17 07:55 4 MLS/MIN Acetaminophen (Tylenol Tab) 650 mg Q4H PRN PO 05/31/17 13:15 06/30/17 13:14 06/01/17 03:10 650 MG Magnesium Hydroxide (Milk Of Magnesia Susp) 30 ml Q12H PRN PO 05/31/17 13:15 06/30/17 13:14 Nitroglycerin (Nitrostat Tab) 0.4 mg UD PRN SL 05/31/17 13:15 06/30/17 13:14 Polyethylene (Miralax Powder Packet) 17 gm DAILY PRN PO 05/31/17 13:15 06/30/17 13:14 Ipratropium [place] (Atrovent 0.02% 0.5MG/2.5ML Neb) 0.5 mg Q6RWA INH 05/31/17 15:00 06/30/17 14:59 06/02/17 07:01 0.5 MG Levalbuterol (Xopenex 1.25MG/ 0.5ML Neb) 1.25 mg Q6RWA INH 05/31/17 15:00 06/30/17 14:59 06/02/17 07:01 1.25 MG Insulin Aspart (novoLOG ASPART) SLIDING SCALE If C... ACHS SC 05/31/17 16:15 06/30/17 16:14 06/01/17 21:12 3 UNITS Glucose (Glucose 40% Gel) 15-30 GRAMS 15 GRAMS... UD PRN PO 05/31/17 13:45 06/30/17 13:44 Glucose (Glucose Chew Tab) 4-8 Tablets 4 Tabl... UD PRN PO 05/31/17 13:45 06/30/17 13:44 Dextrose (Dextrose 50% 50ML Syringe) 25-50ML OF 50% DW IV FOR... UD PRN IV 05/31/17 13:45 06/30/17 13:44 Glucagon (Glucagon Inj) 1 mg UD PRN SQ 05/31/17 13:45 06/30/17 13:44 Miscellaneous Information (Consult Glycemic Management Pharmacy) 1 ea UD N/A 05/31/17 14:48 06/30/17 14:47 Insulin Human NPH (novoLIN-N NPH) 7 units BID SC 06/02/17 09:00 07/02/17 08:59 06/02/17 08:00 7 UNITS Lab Results: Last 24 Hours Test 06/01/17 11:09 06/01/17 12:31 06/01/17 15:56 06/01/17 20:21 Bedside Glucose 241 mg/dl 72 mg/dl 214 mg/dl Troponin I 0.202 ng/ml Test 06/02/17 05:42 06/02/17 06:35 White Blood Count 6.95 K/uL Red Blood Count 3.12 M/uL Hemoglobin 10.1 g/dL Hematocrit 30.1 % Mean Corpuscular Volume 96.5 fL Mean Corpuscular Hemoglobin 32.4 pg Mean Corpuscular Hemoglobin Concent 33.6 g/dl RDW Standard Deviation 58.7 fL RDW Coefficient of Variation 16.7 % Platelet Count 164 K/uL Mean Platelet Volume 9.6 fL Prothrombin Time 43.1 SECONDS Prothromb Time International Ratio 4.2 Sodium Level 141 mmol/L Potassium Level 3.3 mmol/L Chloride Level 107 mmol/L Carbon Dioxide Level 25 mmol/L Anion Gap 9.0 mmol/L Blood Urea Nitrogen 42 mg/dl Creatinine 2.60 mg/dl Est Creatinine Clear Calc Drug Dose 21.5 ml/min Estimated GFR () 25.3 Estimated GFR (Non- 21.8 BUN/Creatinine Ratio 16.3 Random Glucose 78 mg/dl Calcium Level 8.0 mg/dl Phosphorus Level 3.3 mg/dl Magnesium Level 2.3 mg/dl Total Bilirubin 0.4 mg/dl Direct Bilirubin 0.2 mg/dl Aspartate Amino Transf (AST/SGOT) 15 U/L Alanine Aminotransferase (ALT/SGPT) 19 U/L Alkaline Phosphatase 102 U/L Total Protein 6.5 gm/dl Albumin 2.8 gm/dl Globulin 3.7 gm/dl Albumin/Globulin Ratio 0.8 Bedside Glucose 94 mg/dl
--- NOTE | 2017-06-02 11:14 | Pharmacy Progress Note ---
Pharmacy Glycemic Short Note 2 Date of Service Jun 02, 2017. OUTPATIENT ANTIDIABETIC REGIMEN: * NovoLog 70/30 Pre-Mixed insulin * 28 units in AM + 12 units in PM * Total daily outpatient dose = 40 units * A1c = 6.7% on 05/31/17 ASSESSMENT: * 82yo T2DM male admitted for CHF exacerbation- pt with hypoglycemia on admission. Most likely outpatient regimen needs reduced as A1c is below goal range for patient based on age/co-morbidities. Pt experiencing hypoglycemia as an outpatient. * Outpatient regimen is premixed basal/prandial insulin of NovoLog 70/30 mix insulin. * This is difficult to titrate since it is in a fixed distribution of basal/ prandial insulin. Holding pre-mixed insulin and using NPH + NovoLog so individual components can be titrated separately * Held basal insulin x 24hrs until BSG >180mg/dl and then restarted basal insulin at conservative dosing yesterday when BSG = 241 mg/dl * BSGs over the past 24hrs: 138, 241, 72, 214, 94 * Pt felt low/symptomatic when BSG was 72, will reduce insulin parameters to maintain BSG >100 mg/dl minimum PLAN FOR INPATIENT GLYCEMIC CONTROL: * Hold outpatient oral diabetes medications * Basal insulin * NPH 7 units SQ BID * Bolus insulin * NovoLog per scale ACHS or Q6hrs while NPO * Goal Range: Low 120 mg/dL - High 160 mg/dL * Correction Factor: 40 mg/dL/unit * Nutritional / Prandial insulin per carb ratio of 1 unit per 15 grams CHO consumed PLAN FOR DISCHARGE: * A1c = 7.7 % 02/16/17 & 6.7% on 05/31/17 * Although this result may not be totally reliable secondary to CKD and anemia. However, A1c should be reliable when being compared to itself. Since A1c has dropped one point over the past 4 months it is likely that patient is experiencing hypoglycemia as an outpatient and outpatient regimen needs decreased. Patient has been receiving ~ 30 units of insulin for admission without hypo. Seems reasonable to decrease outpatient regimen to total daily dose of 30 units/day. * Change to: Novolin 70/30 premixed insulin 15-20 units in AM with breakfast + 5-10 units in PM with dinner
[2017-06-02] MEDS: FUROSEMIDE 80 MG TAB PO SCH ×2 (13:37→22:56)
[2017-06-02] MEDS: ACETAMINOPHEN 325 MG TAB PO PRN (15:37)
--- NOTE | 2017-06-02 16:40 | Progress Note ---
Medicine Progress Note Date & Time of Visit: Jun 02, 2017 at 16:31. Subjective Pt was seen and examined Sitting in chair with no distress Pt said that he feels much better He is saturated well on RA He walked in the hallway with no discomfort Denies any chest pain, palpitation dizziness and SOB Objective Last 8 Hrs Date Time Temp Pulse Resp B/P (MAP) Pulse Ox O2 Delivery O2 Flow Rate FiO2 06/02/17 16:24 36.5 75 20 114/80 (91) 95 Room Air 06/02/17 16:00 Room Air 06/02/17 14:26 72 18 95 Room Air 06/02/17 12:25 36.8 71 22 117/68 (84) 92 Room Air 06/02/17 12:00 Room Air Physical Exam: General- No acute discharge Head- atraumatic Eyes- PERRL, EOMI ENT- oropharynx clear Neck- supple, no JVD Lungs- No crackles Heart- irregular rhythm Abdomen- normal bowel sounds, soft Extremities- no calf tenderness Neuro- alert, oriented x 3; PERRL, EOMI Skin- warm & dry Laboratory Results: Last 24 Hours Test 06/01/17 20:21 06/02/17 05:42 06/02/17 06:35 06/02/17 11:33 Bedside Glucose 214 mg/dl 94 mg/dl 131 mg/dl White Blood Count 6.95 K/uL Red Blood Count 3.12 M/uL Hemoglobin 10.1 g/dL Hematocrit 30.1 % Mean Corpuscular Volume 96.5 fL Mean Corpuscular Hemoglobin 32.4 pg Mean Corpuscular Hemoglobin Concent 33.6 g/dl RDW Standard Deviation 58.7 fL RDW Coefficient of Variation 16.7 % Platelet Count 164 K/uL Mean Platelet Volume 9.6 fL Prothrombin Time 43.1 SECONDS Prothromb Time International Ratio 4.2 Sodium Level 141 mmol/L Potassium Level 3.3 mmol/L Chloride Level 107 mmol/L Carbon Dioxide Level 25 mmol/L Anion Gap 9.0 mmol/L Blood Urea Nitrogen 42 mg/dl Creatinine 2.60 mg/dl Est Creatinine Clear Calc Drug Dose 21.5 ml/min Estimated GFR () 25.3 Estimated GFR (Non- 21.8 BUN/Creatinine Ratio 16.3 Random Glucose 78 mg/dl Calcium Level 8.0 mg/dl Phosphorus Level 3.3 mg/dl Magnesium Level 2.3 mg/dl Total Bilirubin 0.4 mg/dl Direct Bilirubin 0.2 mg/dl Aspartate Amino Transf (AST/SGOT) 15 U/L Alanine Aminotransferase (ALT/SGPT) 19 U/L Alkaline Phosphatase 102 U/L Total Protein 6.5 gm/dl Albumin 2.8 gm/dl Globulin 3.7 gm/dl Albumin/Globulin Ratio 0.8 Assessment & Plan ACUTE ON CHRONIC SYSTOLIC CHF Present with worsening SOB Last Echo in 08/2016 showed EF30-35%. On Lasix 80 mg IV q8h has not been diuresis much Continue 1.8L fluid restriction Continue oxygen supplement Cardiology on board case discussed with cardiology and deferred diuresis management as per Nephro Continue monitor electrolytes / Clinically improved Saturated on RA with no distress Lasix IV changed to oral lasix Continue 1.8 ml fluid restriction Cardiology on board ECHO Showed * The left ventricle is moderately dilated. * Left ventricular systolic function is severely reduced. * Ejection Fraction = 25-30%. * The right ventricular systolic function is moderately reduced. * The left atrium is moderately dilated. * The right atrium is moderately dilated. * Mild to moderate aortic regurgitation. * Moderate pulmonic valvular regurgitation. * There is severe mitral regurgitation. * There is moderate tricuspid regurgitation. * Moderate pulmonary hypertentsion. CHEST DISCOMFORT ELEVATED TROPONIN Hx CAD s/p STENT. R/O ACS Hx of chronic elevating troponin Troponin on admission 0.217, trop trending down slightly EKG showed paced with no ischemic changes Continue statin, beta mansi, Plavix A-FIB ON COUMADIN rate controlled with amiodarone and beta mansi ventricular paced rhythm on EKG Coumadin on hold with INR 4.4 today Continue monitor INR BRADYCARDIA S/P PACER/AICD Pt reports firing ICD 2 weeks ago Pacemaker was interrogated and change was made JOSUÉ ON CKD IV Cr: 2..8 on admission Creatine was 2.3 on 05/13/17 Creatine 2.6 today Received IV lasix, than changed to oral Lasix Nephrology on board Continue monitor BMP DM II HBA1C 6.7 BS has been stable Monitor BS HTN Continue metoprolol Stable COPD Continue respiratory treatment Hx PANCREATIC CA s/p WHIPPLE Continue pancreas enzymes BPH continue Flomax, Proscar PROLONG QTC Will avoid med that prolong qtc Zoloft on hold repeat EKG in am GERD continue PPI DEPRESSION Hold Zoloft /SSRI for prolong Qtc Stable DVT Prophylaxis Hold Coumadin INR 4.2 CODE STATUS DNR DISPOSITION Continue monitor in tele Current Inpatient Medications: Current Inpatient Medications Medications (Trade) Dose Ordered Sig/Quoc Route Start Time Stop Time Status Last Admin Dose Admin Albuterol (Ventolin Hfa Inhaler) 2 puffs Q6H PRN INH 05/31/17 13:00 06/30/17 12:59 Amiodarone HCl (Cordarone Tab) 200 mg DAILY PO 06/01/17 09:00 07/01/17 08:59 06/02/17 07:57 200 MG Ascorbic Acid (Vitamin C Tab) 1,000 mg DAILY PO 06/01/17 09:00 07/01/17 08:59 06/02/17 07:57 1,000 MG Atorvastatin Calcium (Lipitor Tab) 10 mg DAILY PO 06/01/17 09:00 07/01/17 08:59 06/02/17 07:54 10 MG Calcitriol (Rocaltrol Cap) 0.25 mcg MoWeFr@0900 PO 05/31/17 16:00 06/30/17 15:59 05/31/17 15:33 0.25 MCG Cholecalciferol (Vitamin D Tab) 1,000 inter.unit DAILY PO 06/01/17 09:00 07/01/17 08:59 06/02/17 07:57 1,000 INTER.UNIT Clopidogrel Bisulfate (plAVix TAB) 75 mg DAILY PO 06/01/17 09:00 07/01/17 08:59 06/02/17 07:54 75 MG Finasteride (Proscar Tab) 5 mg DAILY PO 06/01/17 09:00 07/01/17 08:59 06/02/17 07:55 5 MG Fluticasone Propionate (Flonase Nasal [place]) 2 sprays DAILY RICHA 06/01/17 09:00 07/01/17 08:59 06/02/17 07:58 2 SPRAYS Metoprolol Succinate (Toprol Xl Tab) 50 mg DAILY PO 06/01/17 09:00 07/01/17 08:59 06/02/17 07:55 50 MG Multivitamins/ Minerals (Multivitamin W/ Minerals Tab) 1 tab DAILY PO 06/01/17 09:00 07/01/17 08:59 06/02/17 07:58 1 TAB Amylase/Lipase/ Protease (Pancreaze (Lipase 10,500U) Cap) 1 cap QID PO 05/31/17 17:00 06/30/17 16:59 06/02/17 11:31 1 CAP Senna/Docusate Sodium (Senokot S Tab) 1 tab DAILY PO 06/01/17 09:00 07/01/17 08:59 06/02/17 07:55 1 TAB Tamsulosin HCl (Flomax Cap) 0.4 mg DAILY PO 06/01/17 09:00 07/01/17 08:59 06/02/17 07:56 0.4 MG Pantoprazole Sodium (Protonix Tab) 40 mg QAM PO 06/01/17 09:00 07/01/17 08:59 06/02/17 07:55 40 MG Miscellaneous Information (Order Awaiting Action) 1 ea QS N/A 05/31/17 16:00 06/30/17 15:59 Oxycodone HCl (Roxicodone Immediate Rel Tab) 10 mg Q6H PRN PO 05/31/17 13:45 06/14/17 13:44 Potassium Chloride (Klor-Con M10) 10 meq DAILY PO 06/01/17 09:00 07/01/17 08:59 06/02/17 07:56 10 MEQ Warfarin Sodium (Coumadin Tab) 1 mg DAILY@16 PO 06/01/17 16:00 07/01/17 15:59 Future Hold Acetaminophen (Tylenol Tab) 650 mg Q4H PRN PO 05/31/17 13:15 06/30/17 13:14 06/02/17 15:37 650 MG Magnesium Hydroxide (Milk Of Magnesia Susp) 30 ml Q12H PRN PO 05/31/17 13:15 06/30/17 13:14 Nitroglycerin (Nitrostat Tab) 0.4 mg UD PRN SL 05/31/17 13:15 06/30/17 13:14 Polyethylene (Miralax Powder Packet) 17 gm DAILY PRN PO 05/31/17 13:15 06/30/17 13:14 Ipratropium [place] (Atrovent 0.02% 0.5MG/2.5ML Neb) 0.5 mg Q6RWA INH 05/31/17 15:00 06/30/17 14:59 3/4/18 14:25 0.5 MG Levalbuterol (Xopenex 1.25MG/ 0.5ML Neb) 1.25 mg Q6RWA INH 05/31/17 15:00 06/30/17 14:59 06/02/17 14:25 1.25 MG Insulin Aspart (novoLOG ASPART) SLIDING SCALE If C... ACHS SC 05/31/17 16:15 06/30/17 16:14 06/02/17 11:42 4 UNITS Glucose (Glucose 40% Gel) 15-30 GRAMS 15 GRAMS... UD PRN PO 05/31/17 13:45 06/30/17 13:44 Glucose (Glucose Chew Tab) 4-8 Tablets 4 Tabl... UD PRN PO 05/31/17 13:45 06/30/17 13:44 Dextrose (Dextrose 50% 50ML Syringe) 25-50ML OF 50% DW IV FOR... UD PRN IV 05/31/17 13:45 06/30/17 13:44 Glucagon (Glucagon Inj) 1 mg UD PRN SQ 05/31/17 13:45 06/30/17 13:44 Miscellaneous Information (Consult Glycemic Management Pharmacy) 1 ea UD N/A 05/31/17 14:48 06/30/17 14:47 Insulin Human NPH (novoLIN-N NPH) 7 units BID SC 06/02/17 09:00 07/02/17 08:59 06/02/17 08:00 7 UNITS Furosemide (Lasix Tab) 80 mg TID PO 06/02/17 14:00 07/02/17 13:59 06/02/17 13:37 80 MG
[2017-06-03] VITALS (9 sets, daily range): BP systolic 112–124; BP diastolic 56–73; PULSE 69–81; TEMP 36.3–37; O2SAT 95–99
[2017-06-03] MEDS: LEVALBUTEROL 1.25MG/0.5ML NEB INH SCH ×3 (07:10→19:00)
[2017-06-03] MEDS: IPRATROPIUM BROMIDE NEB SOLN 0.02% 2.5 ML VIAL INH SCH ×3 (07:10→19:00)
[2017-06-03 07:11] LABS: HEMATOCRIT 31.3 % (42-52); HEMOGLOBIN 10.2 g/dL (14.0-18.0); MEAN CELL VOLUME 96.9 fL (80-100); MEAN CORPUSCULAR HEMOGLOBIN 31.6 pg (25-34); MEAN CORPUSCULAR HGB CONC 32.6 g/dl (32-36); MEAN PLATELET VOLUME 9.9 fL (7.4-10.4); PLATELET COUNT 181 K/uL (130-400); RED CELL DISTRIBUTION WIDTH CV 16.9 % (11.5-14.5); WHITE BLOOD COUNT 6.66 K/uL (4.8-10.8)
[2017-06-03 07:12] LABS: INR 3.3 (0.9-1.1)
[2017-06-03 07:37] LABS: ALBUMIN 2.9 gm/dl (3.4-5.0); CALCIUM 7.9 mg/dl (8.5-10.1); CREATININE 2.92 mg/dl (0.60-1.40); POTASSIUM 3.6 mmol/L (3.5-5.1)
[2017-06-03 07:39] LABS: PHOSPHORUS 3.3 mg/dl (2.5-4.9); TOTAL PROTEIN 6.6 gm/dl (6.4-8.2)
[2017-06-03] MEDS: POTASSIUM CHLORIDE 10 MEQ TABCR PO SCH (08:28)
[2017-06-03] MEDS: FINASTERIDE 5 MG TAB PO SCH (08:28)
[2017-06-03] MEDS: METOPROLOL SUCC 50MG EXT REL TAB PO SCH (08:28)
[2017-06-03] MEDS: PANCREAZE (LIPASE 10,500U) CAP PO SCH ×4 (08:28→21:26)
[2017-06-03] MEDS: TAMSULOSIN HCL 0.4 MG CAP PO SCH (08:29)
[2017-06-03] MEDS: FUROSEMIDE 80 MG TAB PO SCH ×2 (08:29→17:10)
[2017-06-03] MEDS: ASCORBIC ACID 500 MG TAB PO SCH (08:29)
[2017-06-03] MEDS: CLOPIDOGREL BISULFATE 75 MG TAB PO SCH (08:30)
[2017-06-03] MEDS: DOCUSATE SODIUM/SENNA 50/8.6MG TAB PO SCH (08:30)
[2017-06-03] MEDS: ATORVASTATIN 10 MG TAB PO SCH (08:30)
[2017-06-03] MEDS: CEROVITE ADV FORMULA TAB PO SCH (08:30)
[2017-06-03] MEDS: AMIODARONE 200 MG TAB PO SCH (08:30)
[2017-06-03] MEDS: CHOLECALCIFEROL 1000 INTER.UNIT TAB PO SCH (08:30)
[2017-06-03] MEDS: FLUTICASONE PROPIONATE NA SPR 16 GM BTL NAE SCH (08:31)
[2017-06-03] MEDS: PANTOprazole SOD 40 MG TAB PO SCH (08:31)
[2017-06-03] MEDS: CALCITRIOL 0.25 MCG CAP PO SCH (08:31)
[2017-06-03] MEDS: INSULIN ASPART 100 UNITS/ML 3 ML PEN SC SCH ×4 (08:35→21:00)
[2017-06-03] MEDS: INSULIN HUMAN NPH SC SCH ×2 (08:36→21:30)
--- NOTE | 2017-06-03 10:25 | Cardiology Follow-Up ---
Subjective General Date of Service: Jun 03, 2017. Chief Complaint: SOB Pt evaluation today including: conversation w/ patient, physical exam, chart review, lab review, review of studies, review of inpatient medication list History of Present Illness Patient seen and examined. Notes decreased urine output and a feeling of incomplete bladder emptying following transition from IV to oral diuretic. Denies chest pain, palpitations, worsening dyspnea, orthopnea, PND, abdominal bloating, or scrotal edema. Device reprogrammed this admission; interrogation notable for BiV pacing only 88 %. No ICD shocks observed. Remaining longevity: 5.4 years. June 01, 3017 TTE Interpretation Summary ([facility], Dr. Ellsi): The left ventricle is moderately dilated. Left ventricular systolic function is severely reduced. Ejection Fraction = 25-30%. The right ventricular systolic function is moderately reduced. The left atrium is moderately dilated. The right atrium is moderately dilated. Mild to moderate aortic regurgitation. Moderate pulmonic valvular regurgitation. There is severe mitral regurgitation. There is moderate tricuspid regurgitation. Moderate pulmonary hypertentsion. Allergies Coded Allergies: Lisinopril (Verified Allergy, Intermediate, RASH, 05/31/17) Spironolactone (Verified Allergy, Unknown, unkn, 05/31/17) Zolpidem (Verified Adverse Reaction, Mild, HALLUCINATIONS, 05/31/17) Social History Smoking Status: Former Smoker Hx Tobacco Use In Past Year?: No Hx Alcohol Use - Type And Amou: No Hx Substance Use - Type And Am: No Problem List Medical Problems: (1) Acute bronchitis Status: Acute (2) Chronic renal disease Status: Acute (3) Elevated troponin Status: Acute (4) Elevated troponin Status: Acute (5) Elevated troponin Status: Acute (6) Falls Status: Acute (7) Hypokalemia Status: Acute (8) Hypokalemia Status: Acute (9) Influenza Status: Acute (10) Orthostasis Status: Acute (11) Pulmonary edema Status: Acute (12) SOB (shortness of breath) Status: Acute (13) Systolic congestive heart failure Status: Acute (14) UTI (urinary tract infection) Status: Acute Physical Exam Vital Signs Last Vital Signs Documentation Date Time Temp Pulse Resp B/P (MAP) Pulse Ox O2 Delivery O2 Flow Rate FiO2 06/03/17 07:45 36.5 71 20 124/65 (84) 97 Room Air 05/31/17 10:04 2.0 Physical Exam Constitutional: General Apperance: overweight Level of Distress: NAD Psychiatric: Mental Status: active & alert Orientation: to time, to place, to person Memory: recent memory normal, remote memory normal Head: normocephalic, atraumatic Eyes: Pupils: PERRLA Neck: pertinent finding (Normal JVP. No HJR) Lungs: Auscultation: no wheezing, no rales/crackles, no rhonchi, deminished air movement, decreased breath sounds Cardiovascular: Heart Auscultation: RRR (paced), II/ TIANNA Peripheral Pulses: Dorsalis Pedis Pulse: decreased on the left, decreased on the right Extremities: no cyanosis, no clubbing, edema (Trivial edema) Neurologic: Cranial Nerves: grossly intact Assessment and Plan Assessment and Plan Admission with acute on chronic systolic congestive heart failure. Current volume status is normovolemia ASCVD (LM and RCA stenting in 2005) Diagnosis of idiopathic cardiomyopathy in 2012 with cardiac catheterization revealing patent stents at that time Chronic atrial fibrillation with history of difficult to control rates Frequent PVCs Symptomatic bradycardia, status post biventricular pacemaker ICD implantation Chronic amiodarone therapy for nonsustained ventricular tachycardia Chronic renal insufficiency requiring transient dialysis History of urinary retention RECOMMENDATIONS: Decrease oral furosemide to 80 mg twice a day Continue Toprol XL, oral amiodarone, clopidogrel, Coumadin anticoagulation, and statin. Consider retrial of Nitrates and then the addition of Hydralazine if/when BP permits. Patient with past intolerance to BRANDON, ARB, Entresto, and Aldactone Increase activity as tolerated. CARDIOLOGY ATTENDING ADDENDUM: The patient was seen and personally examined. Agree with Korey Hartley PA-C's findings and plans as documented above. The patient is getting close to discharge. He is markedly improved from admission. Laboratory Results Last 24 Hours Test 06/02/17 11:33 06/02/17 16:23 06/02/17 20:03 06/03/17 06:05 Bedside Glucose 131 mg/dl 102 mg/dl 116 mg/dl White Blood Count 6.66 K/uL Red Blood Count 3.23 M/uL Hemoglobin 10.2 g/dL Hematocrit 31.3 % Mean Corpuscular Volume 96.9 fL Mean Corpuscular Hemoglobin 31.6 pg Mean Corpuscular Hemoglobin Concent 32.6 g/dl RDW Standard Deviation 60.0 fL RDW Coefficient of Variation 16.9 % Platelet Count 181 K/uL Mean Platelet Volume 9.9 fL Prothrombin Time 34.1 SECONDS Prothromb Time International Ratio 3.3 Sodium Level 141 mmol/L Potassium Level 3.6 mmol/L Chloride Level 109 mmol/L Carbon Dioxide Level 25 mmol/L Anion Gap 7.0 mmol/L Blood Urea Nitrogen 46 mg/dl Creatinine 2.92 mg/dl Est Creatinine Clear Calc Drug Dose 19.1 ml/min Estimated GFR () 22.0 Estimated GFR (Non- 19.0 BUN/Creatinine Ratio 15.7 Random Glucose 121 mg/dl Calcium Level 7.9 mg/dl Phosphorus Level 3.3 mg/dl Magnesium Level 2.2 mg/dl Total Bilirubin 0.4 mg/dl Direct Bilirubin 0.1 mg/dl Aspartate Amino Transf (AST/SGOT) 20 U/L Alanine Aminotransferase (ALT/SGPT) 21 U/L Alkaline Phosphatase 110 U/L Total Protein 6.6 gm/dl Albumin 2.9 gm/dl Globulin 3.7 gm/dl Albumin/Globulin Ratio 0.8 Test 06/03/17 07:55 Bedside Glucose 149 mg/dl
--- NOTE | 2017-06-03 13:28 | Pharmacy Progress Note ---
Glycemic Control Progress Note Date of Service Jun 03, 2017. Scope Glycemic Pharmacist consulted for glycemic control to write orders per [facility] inpatient glycemic control protocol. Objective Accuchecks BSG (last 24hrs): Test 06/02/17 16:23 06/02/17 20:03 06/03/17 06:05 06/03/17 07:55 Bedside Glucose 102 mg/dl (70-99) 116 mg/dl (70-99) 149 mg/dl (70-99) Random Glucose 121 mg/dl (70-99) Test 06/03/17 11:09 Bedside Glucose 253 mg/dl (70-99) HbA1c: Test 05/31/17 10:00 Hemoglobin A1c 6.7 % (4.5-5.6) H Recent Pertinent Medications The patient is currently receiving: * Basal insulin: NPH 7 units SQ BID * Correctional Insulin: Novolog Correction per scale ACHS Goal Range: Low 120 mg/dL - High 160 mg/dL Correction Factor: 40 mg/dL/unit * Prandial insulin: Per carb ratio of 1 unit per 15 grams CHO consumed Outpatient Anti-Diabetic Meds * NovoLog 70/30 Pre-Mixed insulin * 28 units in AM + 12 units in PM * Total daily outpatient dose = 40 units * A1c = 6.7% on 05/31/17 Assessment & Plan ASSESSMENT: 06/03/17 * BSGs have ranged 103-253 over the last 24 hours; only one BSG greater than 180 * Fasting BSG 149 this AM, received 14 units of NPH yesterday. There may be room to titrate this dose upwards if fasting routinely > 140. No change today. * Post prandial BSGs well controlled with current CR with the exception of today 's pre-lunch elevation. Will refrain from reacting to a single BSG, will follow trend and adjust if needed PLAN FOR INPATIENT GLYCEMIC CONTROL: * Continuing NPH 7 units SQ BID * Continuing correction factor 40 mg/dl/unit * Continuing carb ratio of 1 unit per 15 grams CHO consumed * Continuing goal range of Low 120 mg/dL - High 160 mg/dL * Please note that the plan above was derived based on current level of insulin resistance and hospital stress. These recommendations are appropriate for inpatient admission only. Plan of care upon discharge will need to be reassessed to avoid potential outpatient hypo/hyperglycemia. Thank you.
[2017-06-03] MEDS: WARFARIN SOD 1 MG TAB PO SCH ×2 (16:00→18:53)
--- NOTE | 2017-06-03 18:46 | Progress Note ---
Medicine Progress Note Date & Time of Visit: Jun 03, 2017 at 12:36. Subjective Pt was seen and examined Lying in bed with no distress Pt said that he feels fine Denies any chest pain, palpitation, dizziness and SOB Objective Last 8 Hrs Date Time Temp Pulse Resp B/P (MAP) Pulse Ox O2 Delivery O2 Flow Rate FiO2 06/03/17 16:00 36.5 77 20 124/59 (80) 99 Room Air 06/03/17 16:00 Room Air 06/03/17 14:50 72 18 98 Room Air 06/03/17 12:00 Room Air 06/03/17 11:26 36.4 70 20 112/63 (79) 97 Room Air Physical Exam: General- No acute discharge Head- atraumatic Eyes- PERRL, EOMI ENT- oropharynx clear Neck- supple, no JVD Lungs- No crackles Heart- irregular rhythm Abdomen- normal bowel sounds, soft Extremities- no calf tenderness Neuro- alert, oriented x 3; PERRL, EOMI Skin- warm & dry Laboratory Results: Last 24 Hours Test 06/02/17 20:03 06/03/17 06:05 06/03/17 07:55 06/03/17 11:09 Bedside Glucose 116 mg/dl 149 mg/dl 253 mg/dl White Blood Count 6.66 K/uL Red Blood Count 3.23 M/uL Hemoglobin 10.2 g/dL Hematocrit 31.3 % Mean Corpuscular Volume 96.9 fL Mean Corpuscular Hemoglobin 31.6 pg Mean Corpuscular Hemoglobin Concent 32.6 g/dl RDW Standard Deviation 60.0 fL RDW Coefficient of Variation 16.9 % Platelet Count 181 K/uL Mean Platelet Volume 9.9 fL Prothrombin Time 34.1 SECONDS Prothromb Time International Ratio 3.3 Sodium Level 141 mmol/L Potassium Level 3.6 mmol/L Chloride Level 109 mmol/L Carbon Dioxide Level 25 mmol/L Anion Gap 7.0 mmol/L Blood Urea Nitrogen 46 mg/dl Creatinine 2.92 mg/dl Est Creatinine Clear Calc Drug Dose 19.1 ml/min Estimated GFR () 22.0 Estimated GFR (Non- 19.0 BUN/Creatinine Ratio 15.7 Random Glucose 121 mg/dl Calcium Level 7.9 mg/dl Phosphorus Level 3.3 mg/dl Magnesium Level 2.2 mg/dl Total Bilirubin 0.4 mg/dl Direct Bilirubin 0.1 mg/dl Aspartate Amino Transf (AST/SGOT) 20 U/L Alanine Aminotransferase (ALT/SGPT) 21 U/L Alkaline Phosphatase 110 U/L Total Protein 6.6 gm/dl Albumin 2.9 gm/dl Globulin 3.7 gm/dl Albumin/Globulin Ratio 0.8 Test 06/03/17 16:17 Bedside Glucose 89 mg/dl Assessment & Plan ACUTE ON CHRONIC SYSTOLIC CHF Present with worsening SOB Last Echo in 08/2016 showed EF30-35%. On Lasix 80 mg IV q8h has not been diuresis much Continue 1.8L fluid restriction Continue oxygen supplement Cardiology on board case discussed with cardiology and deferred diuresis management as per Nephro Continue monitor electrolytes 06/03 Clinically improved Saturated on RA with no distress Was on Lasix IV that changed to oral lasix Continue 1.8 ml fluid restriction Lasix decreased from 80mg TID to 80 mg BID Monitor I/Os Cardiology on board ECHO Showed * The left ventricle is moderately dilated. * Left ventricular systolic function is severely reduced. * Ejection Fraction = 25-30%. * The right ventricular systolic function is moderately reduced. * The left atrium is moderately dilated. * The right atrium is moderately dilated. * Mild to moderate aortic regurgitation. * Moderate pulmonic valvular regurgitation. * There is severe mitral regurgitation. * There is moderate tricuspid regurgitation. * Moderate pulmonary hypertentsion. CHEST DISCOMFORT ELEVATED TROPONIN Hx CAD s/p STENT. R/O ACS Hx of chronic elevating troponin Troponin on admission 0.217, trop trending down slightly EKG showed paced with no ischemic changes Continue statin, beta mansi, Plavix Resolved A-FIB ON COUMADIN rate controlled with amiodarone and beta mansi ventricular paced rhythm on EKG INR 3.3 today Continue Coumadin 1mg Continue monitor INR BRADYCARDIA S/P PACER/AICD Pt reports firing ICD 2 weeks ago Pacemaker was interrogated and change was made JOSUÉ ON CKD IV Cr: 2..8 on admission Creatine was 2.3 on 05/13/17 Creatine 2.8 today Received IV Lasix, than changed to oral Lasix Lasix decreased to 80mg BID Case discussed with nephrology Nephrology on board Continue monitor BMP DM II HBA1C 6.7 BS has been stable Monitor BS HTN Continue metoprolol Stable COPD Continue respiratory treatment Hx PANCREATIC CA s/p WHIPPLE Continue pancreas enzymes BPH continue Flomax, Proscar PROLONG QTC Will avoid med that prolong qtc Zoloft on hold repeat EKG in am GERD continue PPI DEPRESSION Hold Zoloft /SSRI for prolong Qtc Stable DVT Prophylaxis Hold Coumadin INR 3.3 CODE STATUS DNR DISPOSITION Continue monitor in tele Current Inpatient Medications: Current Inpatient Medications Medications (Trade) Dose Ordered Sig/Quoc Route Start Time Stop Time Status Last Admin Dose Admin Albuterol (Ventolin Hfa Inhaler) 2 puffs Q6H PRN INH 05/31/17 13:00 06/30/17 12:59 Amiodarone HCl (Cordarone Tab) 200 mg DAILY PO 06/01/17 09:00 07/01/17 08:59 06/03/17 08:30 200 MG Ascorbic Acid (Vitamin C Tab) 1,000 mg DAILY PO 06/01/17 09:00 07/01/17 08:59 06/03/17 08:29 1,000 MG Atorvastatin Calcium (Lipitor Tab) 10 mg DAILY PO 06/01/17 09:00 07/01/17 08:59 06/03/17 08:30 10 MG Calcitriol (Rocaltrol Cap) 0.25 mcg MoWeFr@0900 PO 05/31/17 16:00 06/30/17 15:59 06/03/17 08:31 0.25 MCG Cholecalciferol (Vitamin D Tab) 1,000 inter.unit DAILY PO 06/01/17 09:00 07/01/17 08:59 06/03/17 08:30 1,000 INTER.UNIT Clopidogrel Bisulfate (plAVix TAB) 75 mg DAILY PO 06/01/17 09:00 07/01/17 08:59 06/03/17 08:30 75 MG Finasteride (Proscar Tab) 5 mg DAILY PO 06/01/17 09:00 07/01/17 08:59 06/03/17 08:28 5 MG Fluticasone Propionate (Flonase Nasal [place]) 2 sprays DAILY RICHA 06/01/17 09:00 07/01/17 08:59 06/03/17 08:31 2 SPRAYS Metoprolol Succinate (Toprol Xl Tab) 50 mg DAILY PO 06/01/17 09:00 07/01/17 08:59 06/03/17 08:28 50 MG Multivitamins/ Minerals (Multivitamin W/ Minerals Tab) 1 tab DAILY PO 06/01/17 09:00 07/01/17 08:59 06/03/17 08:30 1 TAB Amylase/Lipase/ Protease (Pancreaze (Lipase 10,500U) Cap) 1 cap QID PO 05/31/17 17:00 06/30/17 16:59 06/03/17 17:11 1 CAP Senna/Docusate Sodium (Senokot S Tab) 1 tab DAILY PO 06/01/17 09:00 07/01/17 08:59 06/03/17 08:30 1 TAB Tamsulosin HCl (Flomax Cap) 0.4 mg DAILY PO 06/01/17 09:00 07/01/17 08:59 06/03/17 08:29 0.4 MG Pantoprazole Sodium (Protonix Tab) 40 mg QAM PO 06/01/17 09:00 07/01/17 08:59 06/03/17 08:31 40 MG Miscellaneous Information (Order Awaiting Action) 1 ea QS N/A 05/31/17 16:00 06/30/17 15:59 Oxycodone HCl (Roxicodone Immediate Rel Tab) 10 mg Q6H PRN PO 05/31/17 13:45 06/14/17 13:44 Potassium Chloride (Klor-Con M10) 10 meq DAILY PO 06/01/17 09:00 07/01/17 08:59 06/03/17 08:28 10 MEQ Warfarin Sodium (Coumadin Tab) 1 mg DAILY@16 PO 06/01/17 16:00 07/01/17 15:59 Future hold Acetaminophen (Tylenol Tab) 650 mg Q4H PRN PO 05/31/17 13:15 06/30/17 13:14 06/02/17 15:37 650 MG Magnesium Hydroxide (Milk Of Magnesia Susp) 30 ml Q12H PRN PO 05/31/17 13:15 06/30/17 13:14 Nitroglycerin (Nitrostat Tab) 0.4 mg UD PRN SL 05/31/17 13:15 06/30/17 13:14 Polyethylene (Miralax Powder Packet) 17 gm DAILY PRN PO 05/31/17 13:15 06/30/17 13:14 Ipratropium [place] (Atrovent 0.02% 0.5MG/2.5ML Neb) 0.5 mg Q6RWA INH 05/31/17 15:00 06/30/17 14:59 06/03/17 14:50 0.5 MG Levalbuterol (Xopenex 1.25MG/ 0.5ML Neb) 1.25 mg Q6RWA INH 05/31/17 15:00 06/30/17 14:59 06/03/17 14:50 1.25 MG Insulin Aspart (novoLOG ASPART) SLIDING SCALE If C... ACHS SC 05/31/17 16:15 06/30/17 16:14 06/03/17 17:12 2 UNITS Glucose (Glucose 40% Gel) 15-30 GRAMS 15 GRAMS... UD PRN PO 05/31/17 13:45 06/30/17 13:44 Glucose (Glucose Chew Tab) 4-8 Tablets 4 Tabl... UD PRN PO 05/31/17 13:45 06/30/17 13:44 Dextrose (Dextrose 50% 50ML Syringe) 25-50ML OF 50% DW IV FOR... UD PRN IV 05/31/17 13:45 06/30/17 13:44 Glucagon (Glucagon Inj) 1 mg UD PRN SQ 05/31/17 13:45 06/30/17 13:44 Miscellaneous Information (Consult Glycemic Management Pharmacy) 1 ea UD N/A 05/31/17 14:48 06/30/17 14:47 Insulin Human NPH (novoLIN-N NPH) 7 units BID SC 06/02/17 09:00 07/02/17 08:59 06/03/17 08:36 7 UNITS Furosemide (Lasix Tab) 80 mg BID17 PO 06/03/17 17:00 07/03/17 16:59 06/03/17 17:10 80 MG
[2017-06-04 00:11] VITALS: BP 114/72; PULSE 73; TEMP 36.9; O2SAT 96
[2017-06-04 03:57] VITALS: BP 113/60; PULSE 73; TEMP 37; O2SAT 98
[2017-06-04 06:34] LABS: HEMATOCRIT 30.4 % (42-52); MEAN CELL VOLUME 96.8 fL (80-100); MEAN CORPUSCULAR HEMOGLOBIN 31.8 pg (25-34); MEAN CORPUSCULAR HGB CONC 32.9 g/dl (32-36); MEAN PLATELET VOLUME 9.2 fL (7.4-10.4); PLATELET COUNT 159 K/uL (130-400); RED CELL DISTRIBUTION WIDTH CV 16.8 % (11.5-14.5); RED CELL DISTRIBUTION WIDTH SD 59.6 fL (36.4-46.3); WHITE BLOOD COUNT 6.53 K/uL (4.8-10.8)
[2017-06-04 06:43] LABS: INR 3.1 (0.9-1.1)
[2017-06-04 07:02] VITALS: PULSE 72; O2SAT 97
[2017-06-04 07:02] LABS: CREATININE 2.78 mg/dl (0.60-1.40); POTASSIUM 3.4 mmol/L (3.5-5.1)
[2017-06-04] MEDS: IPRATROPIUM BROMIDE NEB SOLN 0.02% 2.5 ML VIAL INH SCH (07:02)
[2017-06-04] MEDS: LEVALBUTEROL 1.25MG/0.5ML NEB INH SCH (07:02)
[2017-06-04] MEDS: ASCORBIC ACID 500 MG TAB PO SCH (07:23)
[2017-06-04] MEDS: TAMSULOSIN HCL 0.4 MG CAP PO SCH (07:23)
[2017-06-04] MEDS: FUROSEMIDE 80 MG TAB PO SCH (07:23)
[2017-06-04] MEDS: POTASSIUM CHLORIDE 10 MEQ TABCR PO SCH (07:23)
[2017-06-04 07:24] VITALS: BP 116/63; PULSE 71; TEMP 36.7; O2SAT 95
[2017-06-04] MEDS: FINASTERIDE 5 MG TAB PO SCH (07:26)
[2017-06-04] MEDS: CEROVITE ADV FORMULA TAB PO SCH (07:26)
[2017-06-04] MEDS: DOCUSATE SODIUM/SENNA 50/8.6MG TAB PO SCH (07:26)
[2017-06-04] MEDS: PANTOprazole SOD 40 MG TAB PO SCH (07:26)
[2017-06-04] MEDS: METOPROLOL SUCC 50MG EXT REL TAB PO SCH (07:26)
[2017-06-04] MEDS: ATORVASTATIN 10 MG TAB PO SCH (07:27)
[2017-06-04] MEDS: CLOPIDOGREL BISULFATE 75 MG TAB PO SCH (07:27)
[2017-06-04] MEDS: PANCREAZE (LIPASE 10,500U) CAP PO SCH (07:27)
[2017-06-04] MEDS: AMIODARONE 200 MG TAB PO SCH (07:27)
[2017-06-04] MEDS: CHOLECALCIFEROL 1000 INTER.UNIT TAB PO SCH (07:27)
[2017-06-04] MEDS: FLUTICASONE PROPIONATE NA SPR 16 GM BTL NAE SCH (07:28)
[2017-06-04] MEDS ORDERED: POTASSIUM CHLORIDE 20 MEQ TABCR PO ONE (08:30)
[2017-06-04] MEDS: INSULIN ASPART 100 UNITS/ML 3 ML PEN SC SCH (08:49)
[2017-06-04] MEDS: INSULIN HUMAN NPH SC SCH (08:50)
--- NOTE | 2017-06-04 09:02 | Progress Note ---
Medicine Progress Note Date & Time of Visit: Jun 04, 2017 at 08:56. Subjective Pt was seen and examined Lying in bed with no distress Pt said that he feels fine He said that he feels good to go He denies any chest pain, palpitation, dizziness and SOB Objective Last 8 Hrs Date Time Temp Pulse Resp B/P (MAP) Pulse Ox O2 Delivery O2 Flow Rate FiO2 06/04/17 07:24 36.7 71 19 116/63 (80) 95 Room Air 06/04/17 07:02 72 18 97 Room Air 06/04/17 04:00 Room Air 06/04/17 03:57 37.0 73 18 113/60 (77) 98 Room Air Physical Exam: General- No acute discharge Head- atraumatic Eyes- PERRL, EOMI ENT- oropharynx clear Neck- supple, no JVD Lungs- No crackles Heart- irregular rhythm Abdomen- normal bowel sounds, soft Extremities- no calf tenderness Neuro- alert, oriented x 3; PERRL, EOMI Skin- warm & dry Laboratory Results: Last 24 Hours Test 06/03/17 11:09 06/03/17 16:17 06/03/17 20:03 06/04/17 06:08 Bedside Glucose 253 mg/dl 89 mg/dl 135 mg/dl White Blood Count 6.53 K/uL Red Blood Count 3.14 M/uL Hemoglobin 10.0 g/dL Hematocrit 30.4 % Mean Corpuscular Volume 96.8 fL Mean Corpuscular Hemoglobin 31.8 pg Mean Corpuscular Hemoglobin Concent 32.9 g/dl RDW Standard Deviation 59.6 fL RDW Coefficient of Variation 16.8 % Platelet Count 159 K/uL Mean Platelet Volume 9.2 fL Prothrombin Time 32.3 SECONDS Prothromb Time International Ratio 3.1 Sodium Level 142 mmol/L Potassium Level 3.4 mmol/L Chloride Level 109 mmol/L Carbon Dioxide Level 27 mmol/L Anion Gap 6.0 mmol/L Blood Urea Nitrogen 48 mg/dl Creatinine 2.78 mg/dl Est Creatinine Clear Calc Drug Dose 20.1 ml/min Estimated GFR () 23.3 Estimated GFR (Non- 20.1 BUN/Creatinine Ratio 17.1 Random Glucose 92 mg/dl Calcium Level 8.0 mg/dl Magnesium Level 2.1 mg/dl Assessment & Plan ACUTE ON CHRONIC SYSTOLIC CHF Present with worsening SOB Last Echo in 08/2016 showed EF30-35%. On Lasix 80 mg IV q8h has not been diuresis much Continue 1.8L fluid restriction Continue oxygen supplement Cardiology on board case discussed with cardiology and deferred diuresis management as per Nephro Continue monitor electrolytes 06/04 Clinically improved Saturated on RA with no distress Was on Lasix IV that changed to oral lasix Continue 1.8 ml fluid restriction Lasix decreased from 80mg TID to 80 mg BID yesterday Continue Lasix 40mg BID Monitor I/Os Cardiology on board Case discussed with cardiology and ok from cardiac standpoint to go home ECHO Showed * The left ventricle is moderately dilated. * Left ventricular systolic function is severely reduced. * Ejection Fraction = 25-30%. * The right ventricular systolic function is moderately reduced. * The left atrium is moderately dilated. * The right atrium is moderately dilated. * Mild to moderate aortic regurgitation. * Moderate pulmonic valvular regurgitation. * There is severe mitral regurgitation. * There is moderate tricuspid regurgitation. * Moderate pulmonary hypertentsion. CHEST DISCOMFORT ELEVATED TROPONIN Hx CAD s/p STENT. R/O ACS Hx of chronic elevating troponin Troponin on admission 0.217, trop trending down slightly EKG showed paced with no ischemic changes Continue statin, beta mansi, Plavix Resolved A-FIB ON COUMADIN rate controlled with amiodarone and beta mansi ventricular paced rhythm on EKG INR 3.1 today Continue Coumadin 1mg Continue monitor INR BRADYCARDIA S/P PACER/AICD Pt reports firing ICD 2 weeks ago Pacemaker was interrogated and change was made JOSUÉ ON CKD IV Cr: 2..8 on admission Creatine was 2.3 on 05/13/17 Creatine 2.7 today Received IV Lasix, than changed to oral Lasix Lasix decreased to 80mg BID Case discussed with nephrology Stable from Nephrology to go home today Continue monitor BMP DM II HBA1C 6.7 BS has been stable Monitor BS HTN Continue metoprolol Consider retrial of Nitrates and then the addition of Hydralazine if/when BP permits. Note: Patient with past intolerance to BRANDON, ARB, Entresto, and Aldactone Stable COPD Continue respiratory treatment Hx PANCREATIC CA s/p WHIPPLE Continue pancreas enzymes BPH continue Flomax, Proscar PROLONG QTC Will avoid med that prolong qtc Zoloft on hold Consider to switch Zoloft to other antidepressant med GERD continue PPI DEPRESSION Hold Zoloft /SSRI for prolong Qtc Stable DVT Prophylaxis Continue coumadin INR 3.1 CODE STATUS DNR DISPOSITION Discharge home today Consultants: Cardio Nephro Current Inpatient Medications: Current Inpatient Medications Medications (Trade) Dose Ordered Sig/Quoc Route Start Time Stop Time Status Last Admin Dose Admin Albuterol (Ventolin Hfa Inhaler) 2 puffs Q6H PRN INH 05/31/17 13:00 06/30/17 12:59 Amiodarone HCl (Cordarone Tab) 200 mg DAILY PO 06/01/17 09:00 07/01/17 08:59 06/04/17 07:27 200 MG Ascorbic Acid (Vitamin C Tab) 1,000 mg DAILY PO 06/01/17 09:00 07/01/17 08:59 06/04/17 07:23 1,000 MG Atorvastatin Calcium (Lipitor Tab) 10 mg DAILY PO 06/01/17 09:00 07/01/17 08:59 06/04/17 07:27 10 MG Calcitriol (Rocaltrol Cap) 0.25 mcg MoWeFr@0900 PO 05/31/17 16:00 06/30/17 15:59 06/03/17 08:31 0.25 MCG Cholecalciferol (Vitamin D Tab) 1,000 inter.unit DAILY PO 06/01/17 09:00 07/01/17 08:59 06/04/17 07:27 1,000 INTER.UNIT Clopidogrel Bisulfate (plAVix TAB) 75 mg DAILY PO 06/01/17 09:00 07/01/17 08:59 06/04/17 07:27 75 MG Finasteride (Proscar Tab) 5 mg DAILY PO 06/01/17 09:00 07/01/17 08:59 06/04/17 07:26 5 MG Fluticasone Propionate (Flonase Nasal [place]) 2 sprays DAILY RICHA 06/01/17 09:00 07/01/17 08:59 06/04/17 07:28 2 SPRAYS Metoprolol Succinate (Toprol Xl Tab) 50 mg DAILY PO 06/01/17 09:00 07/01/17 08:59 06/04/17 07:26 50 MG Multivitamins/ Minerals (Multivitamin W/ Minerals Tab) 1 tab DAILY PO 06/01/17 09:00 4/2/18 08:59 06/04/17 07:26 1 TAB Amylase/Lipase/ Protease (Pancreaze (Lipase 10,500U) Cap) 1 cap QID PO 05/31/17 17:00 06/30/17 16:59 06/04/17 07:27 1 CAP Senna/Docusate Sodium (Senokot S Tab) 1 tab DAILY PO 06/01/17 09:00 07/01/17 08:59 06/04/17 07:26 1 TAB Tamsulosin HCl (Flomax Cap) 0.4 mg DAILY PO 06/01/17 09:00 07/01/17 08:59 06/04/17 07:23 0.4 MG Pantoprazole Sodium (Protonix Tab) 40 mg QAM PO 06/01/17 09:00 07/01/17 08:59 06/04/17 07:26 40 MG Miscellaneous Information (Order Awaiting Action) 1 ea QS N/A 05/31/17 16:00 06/30/17 15:59 Oxycodone HCl (Roxicodone Immediate Rel Tab) 10 mg Q6H PRN PO 05/31/17 13:45 06/14/17 13:44 Potassium Chloride (Klor-Con M10) 10 meq DAILY PO 06/01/17 09:00 07/01/17 08:59 06/04/17 07:23 10 MEQ Warfarin Sodium (Coumadin Tab) 1 mg DAILY@16 PO 06/01/17 16:00 07/01/17 15:59 Future hold 06/03/17 18:53 1 MG Acetaminophen (Tylenol Tab) 650 mg Q4H PRN PO 05/31/17 13:15 06/30/17 13:14 06/02/17 15:37 650 MG Magnesium Hydroxide (Milk Of Magnesia Susp) 30 ml Q12H PRN PO 05/31/17 13:15 06/30/17 13:14 Nitroglycerin (Nitrostat Tab) 0.4 mg UD PRN SL 05/31/17 13:15 06/30/17 13:14 Polyethylene (Miralax Powder Packet) 17 gm DAILY PRN PO 05/31/17 13:15 06/30/17 13:14 Ipratropium [place] (Atrovent 0.02% 0.5MG/2.5ML Neb) 0.5 mg Q6RWA INH 05/31/17 15:00 06/30/17 14:59 06/04/17 07:02 0.5 MG Levalbuterol (Xopenex 1.25MG/ 0.5ML Neb) 1.25 mg Q6RWA INH 05/31/17 15:00 06/30/17 14:59 06/04/17 07:02 1.25 MG Insulin Aspart (novoLOG ASPART) SLIDING SCALE If C... ACHS SC 05/31/17 16:15 06/30/17 16:14 06/04/17 08:49 3 UNITS Glucose (Glucose 40% Gel) 15-30 GRAMS 15 GRAMS... UD PRN PO 05/31/17 13:45 06/30/17 13:44 Glucose (Glucose Chew Tab) 4-8 Tablets 4 Tabl... UD PRN PO 05/31/17 13:45 06/30/17 13:44 Dextrose (Dextrose 50% 50ML Syringe) 25-50ML OF 50% DW IV FOR... UD PRN IV 05/31/17 13:45 06/30/17 13:44 Glucagon (Glucagon Inj) 1 mg UD PRN SQ 05/31/17 13:45 06/30/17 13:44 Miscellaneous Information (Consult Glycemic Management Pharmacy) 1 ea UD N/A 05/31/17 14:48 06/30/17 14:47 Insulin Human NPH (novoLIN-N NPH) 7 units BID SC 06/02/17 09:00 07/02/17 08:59 06/04/17 08:50 7 UNITS Furosemide (Lasix Tab) 80 mg BID17 PO 06/03/17 17:00 07/03/17 16:59 06/04/17 07:23 80 MG
--- NOTE | 2017-06-04 09:09 | Cardiology Follow-Up ---
Subjective General Date of Service: Jun 04, 2017. Chief Complaint: SOB Pt evaluation today including: conversation w/ patient, physical exam, chart review, lab review, review of studies, review of inpatient medication list History of Present Illness Patient seen and examined. Chart, medications, and telemetry reviewed. Feeling well. No complaints. Denies chest pain, palpitations, dyspnea, orthopnea, PND, abdominal bloating, scrotal edema, or distal lower extremity edema. Device reprogrammed this admission; interrogation notable for BiV pacing only 88 %. No ICD shocks observed. Remaining longevity: 5.4 years. June 01, 3017 TTE Interpretation Summary ([facility], Dr. Ellis): The left ventricle is moderately dilated. Left ventricular systolic function is severely reduced. Ejection Fraction = 25-30%. The right ventricular systolic function is moderately reduced. The left atrium is moderately dilated. The right atrium is moderately dilated. Mild to moderate aortic regurgitation. Moderate pulmonic valvular regurgitation. There is severe mitral regurgitation. There is moderate tricuspid regurgitation. Moderate pulmonary hypertension. Allergies Coded Allergies: Lisinopril (Verified Allergy, Intermediate, RASH, 05/31/17) Spironolactone (Verified Allergy, Unknown, unkn, 05/31/17) Zolpidem (Verified Adverse Reaction, Mild, HALLUCINATIONS, 05/31/17) Social History Smoking Status: Former Smoker Hx Tobacco Use In Past Year?: No Hx Alcohol Use - Type And Amou: No Hx Substance Use - Type And Am: No Problem List Medical Problems: (1) Acute bronchitis Status: Acute (2) Chronic renal disease Status: Acute (3) Elevated troponin Status: Acute (4) Elevated troponin Status: Acute (5) Elevated troponin Status: Acute (6) Falls Status: Acute (7) Hypokalemia Status: Acute (8) Hypokalemia Status: Acute (9) Influenza Status: Acute (10) Orthostasis Status: Acute (11) Pulmonary edema Status: Acute (12) SOB (shortness of breath) Status: Acute (13) Systolic congestive heart failure Status: Acute (14) UTI (urinary tract infection) Status: Acute Physical Exam Vital Signs Last Vital Signs Documentation Date Time Temp Pulse Resp B/P (MAP) Pulse Ox O2 Delivery O2 Flow Rate FiO2 06/04/17 07:24 36.7 71 19 116/63 (80) 95 Room Air 3/2/18 10:04 2.0 Physical Exam Constitutional: General Apperance: overweight Level of Distress: NAD Psychiatric: Mental Status: active & alert Orientation: to time, to place, to person Memory: recent memory normal, remote memory normal Head: normocephalic, atraumatic Eyes: Pupils: PERRLA Neck: pertinent finding (Normal JVP. No HJR) Lungs: Auscultation: no wheezing, no rales/crackles, no rhonchi, deminished air movement, decreased breath sounds Cardiovascular: Heart Auscultation: RRR (paced), II/ TIANNA Peripheral Pulses: Dorsalis Pedis Pulse: decreased on the left, decreased on the right Extremities: no cyanosis, no clubbing, edema (Trivial edema) Neurologic: Cranial Nerves: grossly intact Assessment and Plan Assessment and Plan Admission with acute on chronic systolic congestive heart failure signs and symptoms. Current volume status is normovolemic History of ASCVD (LM and RCA stenting in 2005) Diagnosis of idiopathic cardiomyopathy in 2012 with cardiac catheterization revealing patent stents at that time Chronic atrial fibrillation with history of difficult to control rates Frequent PVCs Symptomatic bradycardia, status post biventricular pacemaker ICD implantation Chronic amiodarone therapy for nonsustained ventricular tachycardia Chronic renal insufficiency requiring transient dialysis History of urinary retention RECOMMENDATIONS: Supplement potassium orally. Continue current cardiac therapies as presently prescribed. Consider retrial of Nitrates and then the addition of Hydralazine if/when BP permits. Note: Patient with past intolerance to BRANDON, ARB, Entresto, and Aldactone Increase activity as tolerated. Outpatient cardiology follow-up at [facility]; office aware, will call patient with an appointment. CARDIOLOGY ATTENDING ADDENDUM: The patient was seen and personally examined. Agree with Korey Hartley PA-C's findings and plans as documented above. Agree with discharge and outpatient follow-up. Laboratory Results Last 24 Hours Test 06/03/17 11:09 06/03/17 16:17 06/03/17 20:03 06/04/17 06:08 Bedside Glucose 253 mg/dl 89 mg/dl 135 mg/dl White Blood Count 6.53 K/uL Red Blood Count 3.14 M/uL Hemoglobin 10.0 g/dL Hematocrit 30.4 % Mean Corpuscular Volume 96.8 fL Mean Corpuscular Hemoglobin 31.8 pg Mean Corpuscular Hemoglobin Concent 32.9 g/dl RDW Standard Deviation 59.6 fL RDW Coefficient of Variation 16.8 % Platelet Count 159 K/uL Mean Platelet Volume 9.2 fL Prothrombin Time 32.3 SECONDS Prothromb Time International Ratio 3.1 Sodium Level 142 mmol/L Potassium Level 3.4 mmol/L Chloride Level 109 mmol/L Carbon Dioxide Level 27 mmol/L Anion Gap 6.0 mmol/L Blood Urea Nitrogen 48 mg/dl Creatinine 2.78 mg/dl Est Creatinine Clear Calc Drug Dose 20.1 ml/min Estimated GFR () 23.3 Estimated GFR (Non- 20.1 BUN/Creatinine Ratio 17.1 Random Glucose 92 mg/dl Calcium Level 8.0 mg/dl Magnesium Level 2.1 mg/dl
--- NOTE | 2017-06-04 09:37 | Discharge Instructions ---
Discharge Instructions Date of Service Jun 04, 2017. Admission Reason for Admission: Chf (Congestive Heart Failure) Discharge Discharge Diagnosis / Problem: ACUTE ON CHRONIC SYSTOLIC CHF, Afib on Coumadin , JOSUÉ ON CKD IV Discharge Goals Goal(s): Decrease discomfort, Improve function, Improve disease control Activity Recommendations Activity Limitations: resume your previous activity (as tolerated) . Instructions / Follow-Up Instructions / Follow-Up Follow up with your primary care provider Dr. Ferrer on June 10 @ 11:05 Follow up with your Cardiology ( Cardiology office will call you for the follow up appointment) Follow up with your nephrology (Please call to schedule the appointment) Follow up with the coumadin clinic (INR today 3.1) Continue monitor PT/INR Continue coumadin 1.5mg daily (until instructing by the coumadin clinic) Check BMP in 1 week to monitor kidney function Continue physical therapy Fall precaution Monitor your blood pressure Monitor your blood sugar and limited concentrate sweet intake. Current Hospital Diet Patient's current hospital diet: AHA Diet (Heart Healthy), Diabetes Type 2 Diet , Low Sodium Diet (2gm Na) Discharge Diet Recommended Diet: AHA Diet (Heart Healthy), Low Sodium Diet (2gm Na), Diabetes Type 2 Diet Pending Studies Studies pending at discharge: no Laboratory Results Hemoglobin A1c Test 05/31/17 10:00 Range/Units Estimated Average Glucose 146 mg/dl Hemoglobin A1c 6.7 H 4.5-5.6 % Lipid Panel Test 06/01/17 07:00 Range/Units Triglycerides Level 110 0-150 mg/dl Cholesterol Level 103 0-200 mg/dl HDL Cholesterol 54 mg/dl Cholesterol/HDL Ratio 1.9 LDL Cholesterol, Calculated 27 mg/dl Medical Emergencies . Who to Call and When: Medical Emergencies: If at any time you feel your situation is an emergency, please call 911 immediately. . Non-Emergent Contact Non-Emergency issues call your: Primary Care Provider, Dial Equipment Engineer, [employer] Call Non-Emergent contact if: you have any medication questions . . "Provider Documentation" section prepared by Omar Terrell. .
[2017-06-04 11:21] VITALS: BP 116/63; PULSE 71; TEMP 36.7; O2SAT 95
--- NOTE | 2017-06-05 21:25 | Discharge Summary ---
Discharge Summary Date of Service Jun 05, 2017. Discharge Summary Admission Date: May 31, 2017 at 12:00 Discharge Date: Jun 04, 2017 Discharge Disposition: Home with services Principal Diagnosis: ACUTE ON CHRONIC SYSTOLIC CHF Secondary Diagnoses/Problems: CHEST DISCOMFORT ELEVATED TROPONIN A-FIB ON COUMADIN BRADYCARDIA S/P PACER/AICD Hx PANCREATIC CA s/p WHIPPLE JOSUÉ ON CKD IV DM TYPE HTN COPD PROLONG QTC GERD DEPRESSION Procedures: CHEST ONE VIEW PORTABLE CLINICAL HISTORY: 82 years-old Male presenting with CHF. TECHNIQUE: Portable upright AP view of the chest was obtained. COMPARISON: 05/31/2017. FINDINGS: Left subclavian implanted cardiac defibrillator with leads to the right atrium and coronary sinus. Atherosclerosis of aortic arch. Cardiac silhouette moderately enlarged, unchanged. Numerous overlying external leads degrade evaluation. Mild pulmonary vascular prominence unchanged. Trace fluid within the right minor fissure. No focal opacity. No large pneumothorax. Osseous structures normal. IMPRESSION: 1. Cardiomegaly with volume overload and trace right pleural fluid. No kimber pulmonary edema. Electronically signed by: Duong Weldon M.D. 06/01/2017 6:29 AM Dictated Date/Time: 06/01/2017 6:28 AM CHEST ONE VIEW PORTABLE CLINICAL HISTORY: Respiratory distress. COMPARISON STUDY: 02/03/2017 FINDINGS: The heart is enlarged. There is a left subclavian pacer/defibrillator present. There is slight prominence the perihilar markings on the right, likely secondary to mild asymmetric pulmonary vascular congestion. There is no lobar consolidation.[ IMPRESSION: Cardiomegaly. Suspected mild asymmetric pulmonary vascular congestion. No evidence of lobar consolidation Electronically signed by: Mohsen Dobbs M.D. 05/31/2017 10:45 AM Dictated Date/Time: 05/31/2017 10:44 AM ECHOO Interpretation Summary * Name: LOONEYCALLY MANZANO JR Study Date: 06/01/2017 10:50 AM BP: 99/64 mmHg * Patient Location: 207 HR: 88 * : 1935 (M/d/yyyy) Gender: Male Height: 65 in * Age: 82 yrs Ethnicity: [place] Weight: 187 lb * Ordering Physician: Shelley Foreman * Referring Physician: Self, Referred * Performed By: Priya Tejada RDCS * * Reason For Study: Congestive Heart Failure * BSA: 1.9 m2 * -- Conclusions -- * The left ventricle is moderately dilated. * Left ventricular systolic function is severely reduced. * Ejection Fraction = 25-30%. * The right ventricular systolic function is moderately reduced. * The left atrium is moderately dilated. * The right atrium is moderately dilated. * Mild to moderate aortic regurgitation. * Moderate pulmonic valvular regurgitation. * There is severe mitral regurgitation. * There is moderate tricuspid regurgitation. * Moderate pulmonary hypertentsion. Procedure Details * A complete two-dimensional transthoracic echocardiogram was performed (2D, M- mode, Doppler and color flow Doppler). Left Ventricle * The left ventricle is moderately dilated. * There is no thrombus. * There is moderate concentric left ventricular hypertrophy. * Ejection Fraction = 25-30%. * Left ventricular systolic function is severely reduced. Right Ventricle * The right ventricle is normal size. * The right ventricular systolic function is moderately reduced. Atria * The left atrium is moderately dilated. * The right atrium is moderately dilated. Mitral Valve * The mitral valve leaflets appear thickened, but open well. * There is severe mitral regurgitation. Tricuspid Valve * Tricuspid leaflets are thickened. * There is moderate tricuspid regurgitation. Aortic Valve * The aortic valve is not well visualized. * No hemodynamically significant valvular aortic stenosis. * Mild to moderate aortic regurgitation. Pulmonic Valve * The pulmonic valve is not well visualized. * Moderate pulmonic valvular regurgitation. Great Vessels * The aortic root and proximal ascending aorta are normal sized. * Moderate pulmonary hypertentsion. Pericardium/Pleural There is no pericardial effusion Consultations: Cardio Nephro Medication Reconciliation Continued Medications: Albuterol Hfa (Ventolin Hfa) 200 Puffs/54467 Mcg Aers 2-4 PUFFS INH Q6H PRN for Shortness of Breath, #1 INHALER Amiodarone HCl (Amiodarone HCl) 200 Mg Tab 200 MG PO DAILY, #30 TAB 1 Refill Ascorbic Acid (Ascorbic Acid) 500 Mg Tab 1000 MG PO DAILY, TAB Atorvastatin (Lipitor) 10 Mg Tab 10 MG PO DAILY, TAB Calcitriol (Rocaltrol Cap) 0.25 Mcg Cap 0.25 MCG PO MWF, CAP Cholecalciferol (Vitamin D) 1,000 Unit Tab 1000 UNITS PO DAILY Clopidogrel Bisulfate (Plavix) 75 Mg Tab 75 MG PO DAILY, TAB Esomeprazole Magnesium (Esomeprazole Magnesium) 40 Mg Cap 1 CAP PO DAILY Finasteride (Proscar) 5 Mg Tab 5 MG PO DAILY Fluticasone Furoate-Vilanterol (Breo Ellipta) 1 Inh Inh 1 PUFF INH DAILY Fluticasone Propionate (Nasal) (Flonase Allergy Relief) 50 Mcg/Act Spr 2 SPRAY RICHA DAILY Furosemide (Lasix) 80 Mg Tab 80 MG PO BID for 30 Days, #60 TAB 1 Refill Insulin Aspart 70/30 (Novolog Mix 70/30) Susp 28 SC am, BTL Insulin Aspart 70/30 (Novolog Mix 70/30) Susp 12 SC PM, BTL Levalbuterol Tartrate (Levalbuterol Tartrate Hfa) 45 Mcg/Act Aer 2 PUFFS INH Q4H PRN for SOB, cough, wheezing Metoprolol Succ (Toprol Xl) (Toprol-Xl) 50 Mg Tabcr 50 MG PO DAILY Multiple Vitamins W/ Minerals (Centrum Silver Adult 50+) 1 Tab Tab 1 TAB PO DAILY Oxycodone Hcl (Oxycodone Hcl) 10 Mg Tab 1 TAB PO Q6 PRN for Pain for 30 Days, #120 TAB Pancrelipase (Lipase-Protease- (Pancreaze) 1 Cap Cap 1 CAP PO QID Potassium Chloride (K-Tabs) 10 Meq Tabcr 10 MEQ PO DAILY, #30 1 Refill Sennosides-Docusate Sodium (Senexon-S) 1 Tab Tab 1 TAB PO DAILY Sertraline HCl (Sertraline HCl) 50 Mg Tab 50 MG PO DAILY Tamsulosin Hcl (Flomax) 0.4 Mg Cap 0.4 MG PO DAILY, CAP Warfarin Sod (Coumadin) 3 Mg Tab 1.5 MG PO DAILY Take 1.5 mg by mouth on Saturday, . Discontinued Medications: Warfarin Sod (Coumadin) 3 Mg Tab 3 MG PO UD Take 3 mg by mouth on Saturday, Saturday, Saturday, Saturday, SATURDAY. Admission Information HPI (per Admitting provider): Pt is 82 y/o M with PMH CAD s/p stents, chronic systolic CHF, EF: 30-35% on echo 08/2016, a-fib on Coumadin, hx bradycardia s/p pacemaker/AICD, CKD IV requiring dialysis in past, hx pancreatic CA s/p Whipple procedure, COPD, HTN, CVA with residual LUE weakness presented to ER with c/o increased SOB past 4 days. Can't walk a few steps secondary to SOB. Now feeling SOB with sitting. Using 2 pillows secondary to orthopnea. Sometimes at night with cough clear phlegm. reports pt gained 8-10 pounds in past 4 days. Feels legs are chronically swollen. Has chronic "stuffy nose". Denies any dietary discretions. reports pt been taking lasix BID. Pt states 2 weeks ago felt ICD fire. Been feeling some chest heaviness. Uses rescue inhaler a couple of times a day, denies increased use. Reports pt eating and drinking ok, did eat breakfast this morning. Denies fever/chills, diaphoresis, N/V/D/C, palpitations, abdominal pain , urinary symptoms. Physical Exam (per Admitting): General Appearance: + pertinent finding (chronic ill appearing in mild respiratory distress - improved on O2 NC) Head: normocephalic, atraumatic Eyes: normal inspection, PERRL, sclerae normal ENT: + pertinent finding (hard of hearing, mucous membranes moist) Neck: supple, trachea midline, + pertinent finding (no JVD noted, pt has thick neck) Respiratory/Chest: + decreased breath sounds (bases bilaterally, ) Cardiovascular: + irregularly irregular Abdomen/GI: normal bowel sounds, non tender, + distended Extremities/Musculoskelatal: non-tender, + pedal edema (mild bilaterally) Neurologic/Psych: alert, oriented x 3 Skin: normal color, warm/dry Hospital Course ACUTE ON CHRONIC SYSTOLIC CHF Present with worsening SOB Last Echo in 08/2016 showed EF30-35%. On Lasix 80 mg IV q8h has not been diuresis much Continue 1.8L fluid restriction Continue oxygen supplement Cardiology on board case discussed with cardiology and deferred diuresis management as per Nephro Continue monitor electrolytes 06/04 Clinically improved Saturated on RA with no distress Was on Lasix IV that changed to oral lasix Continue 1.8 ml fluid restriction Lasix decreased from 80mg TID to 80 mg BID yesterday Continue Lasix 40mg BID Monitor I/Os Cardiology on board Case discussed with cardiology and ok from cardiac standpoint to go home ECHO Showed * The left ventricle is moderately dilated. * Left ventricular systolic function is severely reduced. * Ejection Fraction = 25-30%. * The right ventricular systolic function is moderately reduced. * The left atrium is moderately dilated. * The right atrium is moderately dilated. * Mild to moderate aortic regurgitation. * Moderate pulmonic valvular regurgitation. * There is severe mitral regurgitation. * There is moderate tricuspid regurgitation. * Moderate pulmonary hypertentsion. CHEST DISCOMFORT ELEVATED TROPONIN Hx CAD s/p STENT. R/O ACS Hx of chronic elevating troponin Troponin on admission 0.217, trop trending down slightly EKG showed paced with no ischemic changes Continue statin, beta mansi, Plavix Resolved A-FIB ON COUMADIN rate controlled with amiodarone and beta mansi ventricular paced rhythm on EKG INR 3.1 today Continue Coumadin 1mg Continue monitor INR BRADYCARDIA S/P PACER/AICD Pt reports firing ICD 2 weeks ago Pacemaker was interrogated and change was made JOSUÉ ON CKD IV Cr: 2..8 on admission Creatine was 2.3 on 05/13/17 Creatine 2.7 today Received IV Lasix, than changed to oral Lasix Lasix decreased to 80mg BID Case discussed with nephrology Stable from Nephrology to go home today Continue monitor BMP DM II HBA1C 6.7 BS has been stable Monitor BS HTN Continue metoprolol Consider retrial of Nitrates and then the addition of Hydralazine if/when BP permits. Note: Patient with past intolerance to BRANDON, ARB, Entresto, and Aldactone Stable COPD Continue respiratory treatment Hx PANCREATIC CA s/p WHIPPLE Continue pancreas enzymes BPH continue Flomax, Proscar PROLONG QTC Will avoid med that prolong qtc Zoloft on hold Consider to switch Zoloft to other antidepressant med GERD continue PPI DEPRESSION Hold Zoloft /SSRI for prolong Qtc Stable DVT Prophylaxis Continue coumadin INR 3.1 CODE STATUS DNR DISPOSITION Discharge home today Total time spent on discharge = 35 MINUTES This includes examination of the patient, discharge planning, medication reconciliation, and communication with other providers. Discharge Instructions Discharge Instructions Date of Service Jun 04, 2017. Admission Reason for Admission: Chf (Congestive Heart Failure) Discharge Discharge Diagnosis / Problem: ACUTE ON CHRONIC SYSTOLIC CHF, Afib on Coumadin , JOSUÉ ON CKD IV Discharge Goals Goal(s): Decrease discomfort, Improve function, Improve disease control Activity Recommendations Activity Limitations: resume your previous activity (as tolerated) . Instructions / Follow-Up Instructions / Follow-Up Follow up with your primary care provider Dr. Ferrer on June 10 @ 11:05 Follow up with your Cardiology ( Cardiology office will call you for the follow up appointment) Follow up with your nephrology (Please call to schedule the appointment) Follow up with the coumadin clinic (INR today 3.1) Continue monitor PT/INR Continue coumadin 1.5mg daily (until instructing by the coumadin clinic) Check BMP in 1 week to monitor kidney function Continue physical therapy Fall precaution Monitor your blood pressure Monitor your blood sugar and limited concentrate sweet intake. Current Hospital Diet Patient's current hospital diet: AHA Diet (Heart Healthy), Diabetes Type 2 Diet , Low Sodium Diet (2gm Na) Discharge Diet Recommended Diet: AHA Diet (Heart Healthy), Low Sodium Diet (2gm Na), Diabetes Type 2 Diet Pending Studies Studies pending at discharge: no Laboratory Results Hemoglobin A1c Test 05/31/17 10:00 Range/Units Estimated Average Glucose 146 mg/dl Hemoglobin A1c 6.7 H 4.5-5.6 % Lipid Panel Test 06/01/17 07:00 Range/Units Triglycerides Level 110 0-150 mg/dl Cholesterol Level 103 0-200 mg/dl HDL Cholesterol 54 mg/dl Cholesterol/HDL Ratio 1.9 LDL Cholesterol, Calculated 27 mg/dl Medical Emergencies . Who to Call and When: Medical Emergencies: If at any time you feel your situation is an emergency, please call 911 immediately. . Non-Emergent Contact Non-Emergency issues call your: Primary Care Provider, Field Mechanic, Belting Cutter Call Non-Emergent contact if: you have any medication questions . . "Provider Documentation" section prepared by Omar Terrell. . Additional Copies To Deana Cuello D.O.
== END 2017-06-04 12:25 | disposition home or self-care (01) | DRG 291 ==
LOC: C.EDB 09:34 → C.2E 12:00 → ENRESERV 12:59
PROVIDERS: ADMIT Hospitalist; ATTEND Internal Medicine
DX: I13.0 Hypertensive heart and chronic kidney disease with heart failure and stage 1 through stage 4 chronic kidney disease, or unspecified chronic kidney disease (principal); I50.23 Acute on chronic systolic (congestive) heart failure; C25.9 Malignant neoplasm of pancreas, unspecified; N18.4 Chronic kidney disease, stage 4 (severe); N17.9 Acute kidney failure, unspecified; Z95.810 Presence of automatic (implantable) cardiac defibrillator; I48.91 Unspecified atrial fibrillation; N40.0 Benign prostatic hyperplasia without lower urinary tract symptoms; Z79.01 Long term (current) use of anticoagulants; E78.5 Hyperlipidemia, unspecified; Z79.4 Long term (current) use of insulin; Z88.8 Allergy status to other drugs, medicaments and biological substances; J44.9 Chronic obstructive pulmonary disease, unspecified; Z86.73 Personal history of transient ischemic attack (TIA), and cerebral infarction without residual deficits; F32.9 Major depressive disorder, single episode, unspecified; I25.5 Ischemic cardiomyopathy; E11.9 Type 2 diabetes mellitus without complications; Z95.5 Presence of coronary angioplasty implant and graft; Z96.649 Presence of unspecified artificial hip joint

== ENCOUNTER 2017-06-25 09:45 | Observation (INO) | payer OTHER ==
[~2017-06-25] VITALS: Ht 165.1 cm; Wt 85.7 kg
[~2017-06-25 09:45] MED LIST changes: +ESOM1CAP34 PO; -LANS30CA12 PO; +OXYC-164 PO; -OXYC1CAP5 PO
[2017-06-25 11:31] VITALS: BP 121/71; PULSE 69; TEMP 36.6; O2SAT 93
[2017-06-25 11:32] VITALS: BP 121/71; PULSE 69; TEMP 36.6; O2SAT 93; BMI 32.6
[2017-06-25] MEDS ORDERED: DEXTROSE 50% 50 ML SYR ONE (11:56)
[2017-06-25] MEDS ORDERED: NURSING VERBAL MED ORDER ONE (12:15)
[2017-06-25] MEDS ORDERED: DEXTROSE 50% 50 ML SYR IV PRN (12:15)
[2017-06-25] MEDS ORDERED: GLUCOSE 40% GEL 15 GM TUBE PO PRN (12:15)
[2017-06-25] MEDS ORDERED: GLUCAGON FOR INJ 1 MG VIAL SQ PRN (12:15)
[2017-06-25] MEDS ORDERED: GLUCOSE 10 TABS/TUBE PO PRN (12:15)
--- NOTE | 2017-06-25 12:43 | DIAGNOSTIC IMAGING REPORT ---
SINGLE VIEW CHEST CLINICAL HISTORY: Congestive heart failure. FINDINGS: An AP, portable, upright chest radiograph is compared to study dated 06/01/2017. The examination is degraded by portable technique and apical lordotic positioning. A 2-lead cardiac AICD is unchanged in position and largely obscures the left upper chest. The heart is markedly enlarged and there is atherosclerotic calcification of the thoracic aorta. The pulmonary vasculature is noncongested. Linear atelectasis versus scarring is again seen in the right midlung. Bibasilar atelectasis is observed. No airspace consolidation or large pleural effusion is identified. No pneumothorax is seen. The skeletal structures are osteopenic. The bony thorax is grossly intact. IMPRESSION: 1. Cardiomegaly and AICD. There is no radiographic evidence of congestive failure. 2. No airspace consolidation or pleural effusion is identified. Electronically signed by: Denny Kang M.D. 06/25/2017 12:41 PM Dictated Date/Time: 06/25/2017 12:40 PM
[2017-06-25] MEDS ORDERED: PHARMACY GLYCEMIC MGMT CONSULT PRN (12:47)
[2017-06-25 12:48] LABS: BASO % 0.6 %; BASO ABS # 0.04 K/uL (0-0.2); EOS % 2.8 %; EOS ABS # 0.19 K/uL (0-0.5); HEMATOCRIT 33.2 % (42-52); HEMOGLOBIN 10.5 g/dL (14.0-18.0); IG# 0.02 K/uL (0.00-0.02); LYMPH % 15.9 %; LYMPH ABS # 1.09 K/uL (1.2-3.4); MEAN CELL VOLUME 98.2 fL (80-100); MEAN CORPUSCULAR HEMOGLOBIN 31.1 pg (25-34); MEAN CORPUSCULAR HGB CONC 31.6 g/dl (32-36); MEAN PLATELET VOLUME 9.1 fL (7.4-10.4); MONO ABS # 0.55 K/uL (0.11-0.59); NEUT % 72.4 %; NEUT ABS # 4.98 K/uL (1.4-6.5); PLATELET COUNT 161 K/uL (130-400); RED CELL DISTRIBUTION WIDTH CV 16.6 % (11.5-14.5); RED CELL DISTRIBUTION WIDTH SD 59.4 fL (36.4-46.3); WHITE BLOOD COUNT 6.87 K/uL (4.8-10.8)
--- NOTE | 2017-06-25 13:02 | History and Physical ---
History & Physical Date & Time of Service: Jun 25, 2017 at 12:42 Chief Complaint: Acute On Chronic Systolic Heart Failure Primary Care Physician: Deana Cuello D.O. History of Present Illness Source: patient, clinic records, hospital records Patient is an 82-year-old male with a PMH of systolic CHF (EF 25-30%), nonischemic cardiomyopathy, bradycardia (s/p biventricular AICD placement), persistent A. fib (on Coumadin), CAD (s/p stents), h/o pancreatic cancer (s/p Whipple in 2005), DM II, HTN, COPD and other medical problems listed below who presents as a direct admit from Dr. Morales's office for worsening SOB and weight gain. Patient was recently admitted from 05/31-06/05 for acute on chronic systolic CHF and JOSUÉ on CKD. Echo performed during admission showed a decreased in estimated EF from 30-35% (August 2016) to 25-30%. Received IV Lasix 80 mg Q8 and was followed by cardiology and nephrology. Returned to cardiology clinic yesterday for hospital follow-up and was found to be short of breath with ~10 lb weight gain. Received IV Lasix 80 mg x1 and was told to return to clinic today. Was found to have gained an additional 2 lbs and creatinine function declined from 2.6 to 2.8. Was sent to [facility] for further treatment and evaluation. Patient endorses SOB with any type of exertion, even walking to and from the restroom. Endorses orthopnea and weight gain primarily in abdomen. Diffuse abdominal discomfort 2/2 fullness today. Decreased appetite over the last 2 weeks with intermittent episodes of symptomatic hypoglycemia (diaphoretic, shaking). Was found to be hypoglycemic in cardio clinic the previous 2 days with BSG in high 30s-40s. Receives 70/30 insulin BID at home. Denies fever, chills, lightheadedness, confusion, near-syncope, visual changes, chest pain, palpitations, nausea or vomiting. LE swelling (chronic). Past Medical/Surgical History Medical Problems: (1) Afib Status: Chronic (2) BPH (benign prostatic hyperplasia) Status: Chronic (3) CAD (coronary artery disease) Status: Chronic (4) CHF (congestive heart failure) Status: Chronic (5) CKD (chronic kidney disease), stage III Status: Chronic (6) COPD (chronic obstructive pulmonary disease) Status: Chronic (7) Current use of medical terminologist anticoagulation Status: Chronic (8) CVA (cerebral vascular accident) Status: Chronic (9) Depression Status: Chronic (10) DM2 (diabetes mellitus, type 2) Status: Chronic (11) GERD (gastroesophageal reflux disease) Status: Chronic (12) HLD (hyperlipidemia) Status: Chronic (13) HTN (hypertension) Status: Chronic (14) Pancreatic cancer Permanent Comment: Whipple 02/04 s/p neoadjuvant chemoradiotherapy 2005 Jason Urena MD Status: Chronic (15) Pancreatic insufficiency Status: Chronic Surgical Problems: (1) H/O cervical spine surgery Status: Chronic (2) H/O hernia repair Status: Chronic (3) H/O percutaneous transluminal coronary angioplasty Status: Resolved (4) History of cardiac cath Permanent Comment: with stent placement Status: Chronic (5) History of hip replacement Status: Chronic (6) S/P cholecystectomy Status: Chronic (7) S/P hip replacement Status: Chronic (8) Stented coronary artery Status: Chronic Family History Diabetes mellitus FH: cancer FH: gallbladder disease Heart disease Hypertension Kidney disease Lung disease Social History Smoking Status: Former Smoker Alcohol Use: none Drug Use: none Marital Status: , in relationship Housing status: lives with significant other Occupational Status: retired Immunizations History of Influenza Vaccine: Yes Influenza Vaccine Date: Jan 19, 2015 History of Tetanus Vaccine?: Unknown History of Pneumococcal: Yes Pneumococcal Date: Dec 21, 2010 History of Hepatitis B Vaccine: Unknown Allergies Coded Allergies: Lisinopril (Verified Allergy, Intermediate, RASH, 05/31/17) Spironolactone (Verified Allergy, Unknown, unkn, 05/31/17) Zolpidem (Verified Adverse Reaction, Mild, HALLUCINATIONS, 05/31/17) Home Medications Scheduled Amiodarone HCl (Amiodarone HCl), 200 MG PO DAILY Ascorbic Acid (Ascorbic Acid), 1,000 MG PO DAILY Atorvastatin (Lipitor), 10 MG PO DAILY Calcitriol (Rocaltrol Cap), 0.25 MCG PO MWF Cholecalciferol (Vitamin D), 1,000 UNITS PO DAILY Clopidogrel Bisulfate (Plavix), 75 MG PO DAILY Esomeprazole Magnesium (Esomeprazole Magnesium), 1 CAP PO DAILY Finasteride (Proscar), 5 MG PO DAILY Fluticasone Furoate-Vilanterol (Breo Ellipta), 1 PUFF INH DAILY Fluticasone Propionate (Nasal) (Flonase Allergy Relief), 2 SPRAY RICHA DAILY Furosemide (Lasix), 80 MG PO BID Insulin Aspart 70/30 (Novolog Mix 70/30), 28 SC am Insulin Aspart 70/30 (Novolog Mix 70/30), 12 SC PM Metoprolol Succ (Toprol Xl) (Toprol-Xl), 50 MG PO DAILY Multiple Vitamins W/ Minerals (Centrum Silver Adult 50+), 1 TAB PO DAILY Pancrelipase (Lipase-Protease- (Pancreaze), 1 CAP PO QID Potassium Chloride (K-Tabs), 10 MEQ PO DAILY Sennosides-Docusate Sodium (Senexon-S), 1 TAB PO DAILY Sertraline HCl (Sertraline HCl), 50 MG PO DAILY Tamsulosin Hcl (Flomax), 0.4 MG PO DAILY Warfarin Sod (Coumadin), 0.5 TAB PO TuTh@1600 Warfarin Sod (Coumadin), 1 TAB PO SuMoWeFrSa@1600 Scheduled PRN Albuterol Hfa (Ventolin Hfa), 2-4 PUFFS INH Q6H PRN for Shortness of Breath Docusate Sodium (Colace), 1 CAP PO BID PRN for Constipation Levalbuterol Tartrate (Levalbuterol Tartrate Hfa), 2 PUFFS INH Q4H PRN for SOB, cough, wheezing Oxycodone Hcl (Oxycodone Hcl), 1 TAB PO Q6 PRN for Pain Review of Systems Ten systems reviewed and negative except as noted in the HPI. Physical Exam Vital Signs Date Time Temp Pulse Resp B/P (MAP) Pulse Ox O2 Delivery O2 Flow Rate FiO2 06/25/17 11:32 36.6 69 22 121/71 93 Room Air 06/25/17 11:31 36.6 69 22 121/71 (88) 93 Room Air General Appearance: + mild distress (diaphoretic, shaking from hypoglycemia. Resolved after dextrose) Head: normocephalic, atraumatic Eyes: normal inspection, PERRL, sclerae normal ENT: normal ENT inspection, hearing grossly normal, pharynx normal Neck: supple, thyroid normal, trachea midline Respiratory/Chest: chest non-tender, lungs clear, normal breath sounds, no respiratory distress, no accessory muscle use, + pertinent finding (Saturating well on NC O2) Cardiovascular: regular rate, rhythm, no murmur, normal peripheral pulses, + pertinent finding (1-2+ pitting edema in BLE ) Abdomen/GI: non tender (some distension ), soft, no organomegaly Back: normal inspection Extremities/Musculoskelatal: normal inspection, no calf tenderness, no pedal edema Neurologic/Psych: no motor/sensory deficits, alert, normal mood/affect, oriented x 3 Skin: normal color, warm/dry, no rash Diagnostics Laboratory Results Results Past 24 Hours Test 06/25/17 12:36 Range/Units Diagnostic Radiology CXR: IMPRESSION: 1. Cardiomegaly and AICD. There is no radiographic evidence of congestive failure. 2. No airspace consolidation or pleural effusion is identified. EKG Ventricular-paced rhythm. Underlying atrial fibrillation at 73 bpm. Impression Assessment and Plan Patient is an 82-year-old male with a PMH of systolic CHF (EF 25-30%), nonischemic cardiomyopathy, bradycardia (s/p biventricular AICD placement), persistent A. fib (on Coumadin), CAD (s/p stents), h/o pancreatic cancer (s/p Whipple in 2005), DM II, HTN, COPD and other medical problems listed below who presents as a direct admit from Dr. Morales's office for worsening SOB and weight gain. Acute on chronic systolic CHF: -In setting of non-ischemic cardiomyopathy -Recent admission for acute on chronic CHF -EF worsened from 30-35% in 09/15 to 20-25% in 06/16 -Received IV lasix 80mg Q8h -Since discharge, has gained 10#, becoming SOB -BNP of 18,990 -IV Lasix 80mg Q8h -Strict I&Os, daily weights -Discussed with cardiology. Appreciate recs Persistent A Fib: -Cont amiodarone, beta mansi -Hold warfarin since INR is supratherapeutic at 4.2 CKD: -Baseline Cr ~mid-high 2s -Cr of 2.6 in clinic yesterday, 2.8 today -Cardiorenal syndrome playing a role -Nephro consult -Cont calcitriol, Vit D -Repeat BMP in AM Hypoglycemia in setting of DM II: -In setting of decreased appetite, poor renal clearance of insulin -Intermittent symptomatic episodes x 2 weeks -Had symptomatic episode upon arrival with BSG of 55 -Has been taking insulin at home even with BSG ~100 -Hold home agents -Naoma SSI while in-patient -Glycemic control consult placed -BSG checks AC HS Elevated troponin: -H/o elevated troponin in setting of ESRD, CHF -No chest pain, EKG changes -Trop of 0.248 initially today -Will continue to trend COPD: -Stable -Cont Breo, albuterol inhalers -Cont Xopenex nebs PRN CAD (s/p stents in 2005): -No chest pain -Most recent cath without new obstruction H/o CVA: -Cont plavix Depression: -Cont SSRI -Caution in setting of prolonged qtc -Repeat EKG in AM H/o pancreatic cancer: -S/p Whipple in 2005 -Cont pancreatic enzyme supplementation Disposition: -Consult palliative care in setting of worsening CHF/cardiomyopathy -Not interested in dialysis under any circumstance -Need to clarify goals of care -DNR DVT Ppx: Warfarin held in setting of supratherapeutic INR Code status: DNR PCP: Aline Cuello Dispo: Obs tele. Discharge planning ordered. Patient seen in collaboration with Dr. Colbert. Please see addendum. Attending Note: Patient is an 82 yr male with Significant Cardiomyopathy S/P AICD and other comorbidities presents with history of worsening shortness of breath on exertion , Weight gain, leg swelling. Patient was elevated by his Hair And Makeup Designer at his office today and was advised to get admitted at [facility] for IV diuretic therapy and further management. Patient's Cardiomyopathy has been progressively worsening lately and he also reports orthopnea. Patient reports mild generalized abdominal discomfort which he believes secondary to fluid accumulation. He also has been noted to have hypoglycemic episodes lately but denies any change in Insulin dosing recently. Physical Exam: Vitals signs as noted above General Appearance:Moderately built and nourished, no apparent distress Head: normocephalic, Atraumatic Eyes: normal inspection, EOMI, PERRL Neck: supple, Trachea midline Respiratory/Chest: Normal breath sounds, CTA, No accessory muscle use Cardiovascular:Irregularly Irregular, No murmur Abdomen/GI:Soft, Generalized tenderness, Bowel sounds present Extremities/Musculoskelatal:normal inspection, 2+ B/L edema Neurologic/Psych:AAOX3, grossly no focal neurological deficits Skin:normal color,warm Assessment and Plan: Acute on Chronic systolic CHF Exacerbation: EF:25-30% S/P AICD IV diuretics I/Os, daily weight, fluid restriction Cardiology Consulted Consulted Palliative care as well to address goals of Care Patient prefers not be started on dialysis if he clinically deteriorates Supra therapeutic INR: Hold Coumadin Monitor INR Hypoglycemia: Liberalize ISS therapy Monitor BGs levels May need to adjust his home Insulin dose prior to discharge Abdominal Pain: Check ABD USD I personally reviewed the record. Patient is interviewed and examined at bedside. Patient's care is coordinated with Lisa Sabillon PA-C. Please refer to the documentation above for details of patient's presentation and for discussion of other issues. Advanced Directives Existing Living Will: Yes Existing Power of Edger Saw Operator: No Resuscitation Status VTE Prophylaxis Will order VTE Prophylaxis: Yes
[2017-06-25 13:07] LABS: INR 4.2 (0.9-1.1)
[2017-06-25 13:17] LABS: CALCIUM 8.2 mg/dl (8.5-10.1); CREATININE 2.72 mg/dl (0.60-1.40); POTASSIUM 3.6 mmol/L (3.5-5.1); TOTAL PROTEIN 6.6 gm/dl (6.4-8.2)
[2017-06-25] MEDS ORDERED: DOCU-94 PO (13:28)
[2017-06-25] MEDS ORDERED: CMD3 PO (13:28)
[2017-06-25] MEDS ORDERED: DOCUSATE SODIUM 100 MG CAP PO PRN (13:30)
[2017-06-25] MEDS ORDERED: ALBUTEROL HFA 8 GM INHALER INH PRN (13:30)
[2017-06-25] MEDS ORDERED: OXYCODONE HCL IR 5 MG TAB (IMMEDIATE RELEASE) PO PRN (13:30)
[2017-06-25] MEDS: FUROSEMIDE INJ 80 MG in SYRINGE 0 ML IV SCH ×2 (13:55→21:57)
--- NOTE | 2017-06-25 14:11 | Pharmacy Progress Note ---
Glycemic Control Intl Consult Date of Service Jun 25, 2017. Scope Glycemic Pharmacist consulted by Lisa Sabillon on 06/25/17 for glycemic control and to write orders per [facility] inpatient glycemic control protocol Objective Weight (Kilograms): 88.880 Accuchecks BSG (last 24hrs): Test 06/25/17 12:36 Random Glucose 59 mg/dl (70-99) Laboratory Data (last 24hrs) Test 06/25/17 12:36 Anion Gap 7.0 mmol/L BUN/Creatinine Ratio 12.9 Blood Urea Nitrogen 35 mg/dl Creatinine 2.72 mg/dl Potassium Level 3.6 mmol/L Sodium Level 139 mmol/L White Blood Count 6.87 K/uL Red Blood Count 3.38 M/uL Hemoglobin 10.5 g/dL Hematocrit 33.2 % Mean Corpuscular Volume 98.2 fL Mean Corpuscular Hemoglobin 31.1 pg Mean Corpuscular Hemoglobin Concent 31.6 g/dl Platelet Count 161 K/uL Mean Platelet Volume 9.1 fL Neutrophils (%) (Auto) 72.4 % Lymphocytes (%) (Auto) 15.9 % Monocytes (%) (Auto) 8.0 % Eosinophils (%) (Auto) 2.8 % Basophils (%) (Auto) 0.6 % Neutrophils # (Auto) 4.98 K/uL Lymphocytes # (Auto) 1.09 K/uL Monocytes # (Auto) 0.55 K/uL Eosinophils # (Auto) 0.19 K/uL Basophils # (Auto) 0.04 K/uL Recent Pertinent Medications Outpatient Anti-diabetic Regimen: * Novolog 70/30 - 28 units in the AM and 12 units in the PM * A1c = 6.7 % 05/31/17 Risk Factors for Insulin Resistance: * Diet: low sodium plus type 2 diabetes Assessment & Plan ASSESSMENT: * Ms Redd is an 82 y/o M with a complicated PMH including cardiomyopathy with cardiorenal syndrome, CHF, COPD, Afib on warfarin, CAD with stents, pancreatic cancer s/p Whipple procedure, and very well controlled type 2 diabetes (goal HbA1C according to the Elements of Diabetes Care Scoring Scale is 7.6-8.0%). The patient is admitted with worsening shortness of breath and weight gain. * After speaking with Lisa Sabillon, she informed me that the patient has had several episodes of hypoglycemia. At the cardio clinic today, the patient's blood sugar was in the 30s and the patient was given a sandwich and juice. The blood sugar increased to 100 but within 20 minutes of admission here at the hospital, the patient's blood sugar was again in the 50s. He received IV dextrose.Per the patient's partner, he always receives his insulin no matter what his blood sugar is. His kidneys have worsened to a creatinine of 2.8 mg/dL (most likely the patient's new baseline). The providers are open to a regimen not containing Novolog 70/30. * Will hold off on basal insulin currently as the patient should be covered by the 70/30 through tonight. Will provide a loose correction factor of 45 ( between weight-based stress of 1 and 2) without a carbohydrate ratio. The regular from the 70/30 would provide carbohydrate coverage at this point. Will hand off to second shift for continued management throughout the evening. Plan a check for 0200 to ensure patient does not have continued hypoglycemia. PLAN FOR INPATIENT GLYCEMIC CONTROL: * Correctional Insulin with NOVOLOG per scale ACHS or Q6hrs while NPO * Goal Range: Low 140 mg/dL - High 180 mg/dL * Correction Factor: 45 mg/dL/unit * Nutritional / Prandial insulin per carb ratio of 1 unit per -- grams CHO consumed * Please note that the plan above was derived based on current level of insulin resistance and hospital stress. These recommendations are appropriate for inpatient admission only. Plan of care upon discharge will need to be reassessed to avoid potential outpatient hypo/hyperglycemia. Thank you.
[2017-06-25 15:37] VITALS: Ht 165.1 cm; Wt 85.7 kg
[2017-06-25 15:55] VITALS: BP 102/58; PULSE 72; TEMP 36.6; O2SAT 98
[2017-06-25 16:00] VITALS: O2SAT 98
[2017-06-25] MEDS: INSULIN ASPART 100 UNITS/ML 3 ML PEN SC SCH ×2 (17:31→20:20)
[2017-06-25 19:05] VITALS: BP 112/72; PULSE 79; TEMP 36.6; O2SAT 98
[2017-06-25] MEDS: PANCREAZE (LIPASE 10,500U) CAP PO SCH ×2 (19:30→21:57)
[2017-06-25] MEDS: ACETAMINOPHEN 325 MG TAB PO PRN (19:34)
--- NOTE | 2017-06-25 19:49 | CARDIOLOGY CONSULTATION ---
DATE OF CONSULTATION: 06/25/2017 PRIMARY CARE PHYSICIAN: Dr. Cuello. REFERRING PHYSICIAN: Lisa Sabillon. INDICATIONS: Decompensated systolic heart failure, right greater than left; hypoglycemia. HISTORY OF PRESENT ILLNESS: The patient is a complex 82-year-old male with recent hospitalization at [facility] on 05/31/2017. His underlying history is notable for mixed ischemic and nonischemic cardiomyopathy with severe LV dysfunction, class III systolic heart failure, prior coronary artery disease with coronary interventions of the left main and the right coronary artery in 2005 without progression and disease by cardiac catheterization in 2012; chronic atrial fibrillation status post Bi-V pacemaker defibrillator; chronic renal insufficiency. The patient presents now noting since hospital discharge on 06/05/2017 initially doing well, then gradual increase in abdominal girth and lower extremity edema and bloating with a sense of breathlessness. He noted no specific chest pain other than mild tightness across the abdomen and lower chest. Notes no syncope or near syncope. Has been following dietary restrictions and fluid restrictions. Has been taking medications as prescribed. Notes no bleeding difficulties. Notes no melena or hematochezia, dysuria or hematuria. Notes no fevers, chills, unexplained infections. Weight is gradually climbing at home per patient's own description. He was seen yesterday in the outpatient setting with a clinical evidence of increasing heart failure and declining renal function. He was given single dose of IV furosemide and represented today for evaluation, with little change in overall sense of heart failure and marked per hypoglycemia observed. He is referred now for inpatient management. REVIEW OF SYSTEMS: As per HPI and otherwise negative. ALLERGIES: NOTED TO BE LISINOPRIL, SPIRONOLACTONE, AND ZOLPIDEM. MEDICATIONS: Per list are amiodarone 200 mg p.o. q. day; vitamin C 1000 mg per day; atorvastatin 10 mg p.o. q. day; calcitriol 0.25 mcg 1 tablet Saturday, Saturday, Saturday; vitamin D 1000 units q. day; clopidogrel 75 mg p.o. q. day; esomeprazole 40 mg q. day; finasteride 5 mg p.o. q. day; furosemide 80 mg p.o. b.i.d.; insulin 70/30 NovoLog 20 units a.m. and 12:00 p.m.; metoprolol succinate 50 mg p.o. q. day; pancrelipase 1 capsule q.i.d.; potassium chloride 10 mEq q. day; sertraline 50 mg q. day; tamsulosin 0.4 mg p.o. q. day; and warfarin variable dosing. PAST MEDICAL HISTORY: In addition to HPI, is notable for prior pancreatic carcinoma status post Whipple procedure in January 2006, hypertension, hyperlipidemia, chronic gastroesophageal reflux, chronic obstructive lung disease, past TIA and stroke. PAST SURGICAL HISTORY: Notable per list, cervical spine surgery, hernia repair, Whipple procedure as described in January 2006, hip replacement in 2011, spinal surgery in the remote past and cervical spine in 1994, umbilical hernia repair as a child, cystoscopy and cystourethroscopy with cystostomy. FAMILY HISTORY: Positive for heart disease, hypertension. SOCIAL HISTORY: The patient is a nonsmoker, resides with . PHYSICAL EXAMINATION: VITAL SIGNS: Heart rate 69, blood pressure is 121/71. HEENT: Normocephalic and atraumatic. NECK: Thin. There is mild jugular venous distention. LUNGS: Reveal diminished breath sounds, diffuse crackles at the bases. CARDIOVASCULAR: Regular with paced rhythm. There is a grade 2/6 systolic murmur at the base. PMI is displaced laterally. ABDOMEN: Moderately distended, slightly tense. EXTREMITIES: Reveal 2 to 3+ lower extremity edema bilaterally. There are intact distal pulses. DIAGNOSTIC DATA: Chest x-ray today demonstrates cardiomegaly, but no acute pulmonary edema or infiltrate. LABORATORY DATA: White cell count 6.8, hemoglobin is 10.5, hematocrit is 33.2. Sodium is 139, potassium is 3.6, chloride is 105, bicarbonate is 27, BUN is 35, creatinine is 2.72, glucose is 59. Troponins are elevated in the setting of chronic elevation and renal insufficiency. Albumin is 3.0. TSH on 05/31/2017 was 1.7. EKG today demonstrates atrial fibrillation with ventricular paced rhythm, rate 73. Telemetry reveals ventricular paced rhythm with transient run of ventricular arrhythmia noted shortly after hospitalization. Echocardiogram done on 06/01/2017 demonstrated severely reduced LV systolic function, EF 25% with moderate right ventricular dysfunction. There is biatrial enlargement with [id number] aortic insufficiency, moderate pulmonary insufficiency, severe mitral and moderate tricuspid insufficiency with moderate pulmonary hypertension, peak tricuspid valve regurgitant velocity of 2.8 m/sec. IMPRESSION: An 82-year-old male with history of mixed etiology, diffuse cardiomyopathy with class 3 congestive heart failure with recent hospitalization on 05/31/2017 with decompensated systolic heart failure; returns now with once again symptoms of abdominal bloating, leg edema and 5-8 pound weight gain, overt left heart failure is not being manifest, renal function has declined slightly. He notes appetite is substantially reduced since hospital discharge and sugars have been running low. PLAN: We will attempt to optimize fluid status, but will need to do cautiously given chronic renal insufficiency. Furosemide has been ordered to be increased to 80 mg IV t.i.d. for first 24 hours. Oxygen supplementation will be maintained. Discussed in detail with patient and . The patient is at risk for further renal deterioration with mixed cardiomyopathy and valvular disease with worsening right heart failure observed. MTDD
--- NOTE | 2017-06-25 21:44 | DIAGNOSTIC IMAGING REPORT ---
ABDOMEN COMPLETE (US) HISTORY: Pain abdominal pain. COMPARISON: None. FINDINGS: Pancreas: Not well seen due to overlying bowel content Liver: Uniform and neck region is Gallbladder: Prior cholecystectomy CBD: 5 mm Kidneys: 3 cm mid pole left renal cyst. No evidence for renal hydronephrosis. Spleen: Normal in size. Aorta: Normal in caliber. IVC: Patent. IMPRESSION: No significant abnormality identified within the within the abdomen. Prior Whipple procedure and cholecystectomy. Limited visibility of the pancreas The above report was generated using voice recognition software. It may contain grammatical, syntax or spelling errors. Electronically signed by: Korey Aguero M.D. 06/25/2017 9:43 PM Dictated Date/Time: 06/25/2017 9:41 PM
[2017-06-25] MEDS: LEValbuterol HFA 15GM INHALER INH PRN (21:56)
--- NOTE | 2017-06-25 22:13 | Nephrology Consultation ---
Nephrology Consultation Date of Consultation: Jun 25, 2017. Attending Physician: dr villalta Requesting Physician: dr villalta Reason for Consultation: cardiorenal syndrome History of Present Illness 82 year old male w/ severe cardiac disease and ckd 4 and multiple recent admissions for mgt of cardiorenal syndrome came to cardiology clinic yesterday w / worsening wt gain, dyspnea, increased abdominal girth. He had iv lasix in clinic yesterday but w/ minimal effect. 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 He has had acute dialysis during a past hospitalization and states he would never do that again, not once. unlikely that he would tolerate chronic dialysis in any event. he was started on IV lasix 80 mg tid, to which he has responded in the past. He has also been having issues since presentation w/ symptomatic hypoglycemia and is being followed closely for that. His creatinine on presentation was 2.7. He tells me that he follows fluid limits but his disputes this. no nsaids. no f/c. Past Medical/Surgical History Medical Problems: (1) Acute bronchitis Status: Acute (2) Chronic renal disease Status: Acute (3) Elevated troponin Status: Acute (4) Elevated troponin Status: Acute (5) Elevated troponin Status: Acute (6) Falls Status: Acute (7) Hypokalemia Status: Acute (8) Hypokalemia Status: Acute (9) Influenza Status: Acute (10) Orthostasis Status: Acute (11) Pulmonary edema Status: Acute (12) SOB (shortness of breath) Status: Acute (13) Systolic congestive heart failure Status: Acute (14) UTI (urinary tract infection) Status: Acute -a fib on coumadin -CAD s/p L main stenting -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% -CKD 4 baseline creatinine mid-high 2's; has needed acute dialysis in the past -DM2 -s/p 2005 Whipple procedure for pancreatic CA -stroke w/ residual LUE weakness -GERD -COPD -HTN -depression -hx of hernia repair, C spine surgery, hip replacement, cholecystectomy Family History Diabetes mellitus FH: cancer FH: gallbladder disease Heart disease Hypertension Kidney disease Lung disease Social History Smoking Status: Former Smoker Drug Use: none Marital Status: , in relationship Housing Status: lives with family Occupation Status: retired Allergies Coded Allergies: Lisinopril (Verified Allergy, Intermediate, RASH, 05/31/17) Spironolactone (Verified Allergy, Unknown, unkn, 05/31/17) Zolpidem (Verified Adverse Reaction, Mild, HALLUCINATIONS, 05/31/17) Medications Current Inpatient Medications Medications (Trade) Dose Ordered Sig/Quoc Route Start Time Stop Time Status Last Admin Dose Admin Acetaminophen (Tylenol Tab) 650 mg Q4H PRN PO 06/25/17 12:15 07/25/17 12:14 06/25/17 19:34 650 MG Insulin Aspart (novoLOG ASPART) SLIDING SCALE If C... ACHS SC 06/25/17 16:15 07/25/17 16:14 Glucose (Glucose 40% Gel) 15-30 GRAMS 15 GRAMS... UD PRN PO 06/25/17 12:15 07/25/17 12:14 Glucose (Glucose Chew Tab) 4-8 Tablets 4 Tabl... UD PRN PO 06/25/17 12:15 07/25/17 12:14 Dextrose (Dextrose 50% 50ML Syringe) 25-50ML OF 50% DW IV FOR... UD PRN IV 06/25/17 12:15 07/25/17 12:14 Glucagon (Glucagon Inj) 1 mg UD PRN SQ 06/25/17 12:15 07/25/17 12:14 Miscellaneous Information (Consult Glycemic Management Pharmacy) 1 ea UD PRN N/A 06/25/17 12:47 07/25/17 12:46 Furosemide 80 mg/ Syringe 8 ml @ 4 mls/min Q8H IV 06/25/17 14:00 07/25/17 12:14 06/25/17 13:55 4 MLS/MIN Amiodarone HCl (Cordarone Tab) 200 mg DAILY PO 06/26/17 09:00 07/26/17 08:59 Atorvastatin Calcium (Lipitor Tab) 10 mg DAILY PO 06/26/17 09:00 07/26/17 08:59 Calcitriol (Rocaltrol Cap) 0.25 mcg MoWeFr@0900 PO 06/26/17 09:00 07/26/17 08:59 Cholecalciferol (Vitamin D Tab) 1,000 inter.unit DAILY PO 06/26/17 09:00 07/26/17 08:59 Docusate Sodium (coLACE CAP) 100 mg BID PRN PO 06/25/17 13:30 07/25/17 13:29 Finasteride (Proscar Tab) 5 mg DAILY PO 06/26/17 09:00 07/26/17 08:59 Fluticasone Propionate (Flonase Nasal [place]) 2 sprays DAILY PRN RICHA 06/26/17 09:00 07/26/17 08:59 Levalbuterol (Xopenex Hfa Inhaler) 2 puffs Q4H PRN INH 06/25/17 13:30 07/25/17 13:29 Metoprolol Succinate (Toprol Xl Tab) 50 mg DAILY PO 06/26/17 09:00 07/26/17 08:59 Amylase/Lipase/ Protease (Pancreaze (Lipase 10,500U) Cap) 1 cap QID PO 06/25/17 17:00 07/25/17 16:59 06/25/17 19:30 1 CAP Senna/Docusate Sodium (Senokot S Tab) 1 tab DAILY PO 06/26/17 09:00 07/26/17 08:59 Tamsulosin HCl (Flomax Cap) 0.4 mg DAILY PO 06/26/17 09:00 07/26/17 08:59 Miscellaneous Information (Order Awaiting Action) 1 ea QS N/A 06/25/17 16:00 07/25/17 15:59 Oxycodone HCl (Roxicodone Immediate Rel Tab) 10 mg Q6 PRN PO 06/25/17 13:30 07/25/17 13:29 Potassium Chloride (Klor-Con M10) 10 meq DAILY PO 06/26/17 09:00 07/26/17 08:59 Pantoprazole Sodium (Protonix Tab) 40 mg QAM PO 06/26/17 09:00 07/26/17 08:59 Insulin Aspart (novoLOG ASPART) SLIDING SCALE If C... TODAY@0200 DC 06/26/17 02:00 06/26/17 02:01 Clopidogrel Bisulfate (plAVix TAB) 75 mg DAILY PO 06/26/17 09:00 07/26/17 08:59 Sertraline HCl (Zoloft Tab) 50 mg DAILY PO 06/26/17 09:00 07/26/17 08:59 Home Meds and Scripts Medications Dose Route/Sig Max Daily Dose Days Date Category Coumadin (Warfarin Sod) 3 Mg Tab 1 Tab PO SUMOWEFRSA@1600 06/25/17 Reported Colace (Docusate Sodium) 100 Mg Cap 1 Cap PO BID PRN 15 06/25/17 Reported Oxycodone Hcl 10 Mg Tab 1 Tab PO Q6 PRN 30 05/31/17 Reported Esomeprazole Magnesium 40 Mg Cap 1 Cap PO DAILY 05/31/17 Reported Lasix (Furosemide) 80 Mg Tab 80 Mg PO BID 30 02/07/17 Rx Amiodarone HCl 200 Mg Tab 200 Mg PO DAILY 02/07/17 Rx K-Tabs (Potassium Chloride) 10 Meq Tabcr 10 Meq PO DAILY 02/07/17 Rx Pancreaze (Pancrelipase (Lipase-Protease-) 1 Cap Cap 1 Cap PO QID 02/03/17 Reported Ventolin Hfa (Albuterol) 200 Puffs/89797 Mcg Aers 2-4 Puffs INH Q6H PRN 02/03/17 Reported Flomax (Tamsulosin Hcl) 0.4 Mg Cap 0.4 Mg PO DAILY 02/03/17 Reported Sertraline HCl 50 Mg Tab 50 Mg PO DAILY 01/10/17 Reported Levalbuterol Tartrate Hfa (Levalbuterol Tartrate) 45 Mcg/Act Aer 2 Puffs INH Q4H PRN 01/10/17 Reported Centrum Silver Adult 50+ (Multiple Vitamins W/ Minerals) 1 Tab Tab 1 Tab PO DAILY 01/10/17 Reported Vitamin D (Cholecalciferol) 1,000 Unit Tab 1,000 Units PO DAILY 01/10/17 Reported Coumadin (Warfarin Sod) 3 Mg Tab 0.5 Tab PO TUTH@1600 09/24/16 Reported Senexon-S (Sennosides-Docusate Sodium) 1 Tab Tab 1 Tab PO DAILY 09/24/16 Reported Ascorbic Acid 500 Mg Tab 1,000 Mg PO DAILY 09/24/16 Reported Toprol-Xl (Metoprolol Succinate) 50 Mg Tabcr 50 Mg PO DAILY 06/22/16 Reported Novolog Mix 70/30 (Insulin Aspart Prota 70%/Aspart 30%) Susp 12 SC PM 06/22/16 Reported Novolog Mix 70/30 (Insulin Aspart Prota 70%/Aspart 30%) Susp 28 SC AM 06/22/16 Reported Proscar (Finasteride) 5 Mg Tab 5 Mg PO DAILY 06/22/16 Reported Breo Ellipta (Fluticasone Furoate-Vilanterol) 1 Inh Inh 1 Puff INH DAILY 03/08/16 Reported Lipitor (Atorvastatin Calcium) 10 Mg Tab 10 Mg PO DAILY 03/08/16 Reported Flonase Allergy Relief (Fluticasone Propionate (Nasal)) 50 Mcg/Act Spr 2 [place] RICHA DAILY 03/08/16 Reported Rocaltrol Cap (Calcitriol) 0.25 Mcg Cap 0.25 Mcg PO MWF 05/28/15 Reported Plavix (Clopidogrel Bisulfate) 75 Mg Tab 75 Mg PO DAILY 02/02/13 Reported Review of Systems Constitutional: + weakness, + fatigue, No fever, No chills Eyes: No worsening of vision ENT: No hearing loss Respiratory: + dyspnea on exertion, + dyspnea at rest, No cough Cardiac: + orthopnea, + edema, No chest pain, No palpitations Abdomen: + see HPI, No pain, No nausea, No vomiting, No diarrhea, No constipation Musculoskeletal: No joint pain, No muscle pain Male : No dysuria, No urinary frequency, No incontinence Neuro: + weakness, + balance problems Psych: No depression symptoms, No anxiety Heme: No abnormal bleeding/bruising Endo: + fatigue Skin: No rash, No itch Physical Exam Date Time Temp Pulse Resp B/P (MAP) Pulse Ox O2 Delivery O2 Flow Rate FiO2 06/25/17 19:05 36.6 79 22 112/72 (85) 98 Nasal Cannula 2.0 06/25/17 16:00 98 Nasal Cannula 2.0 06/25/17 15:55 36.6 72 18 102/58 (73) 98 Room Air 06/25/17 11:32 36.6 69 22 121/71 93 Room Air 06/25/17 11:31 36.6 69 22 121/71 (88) 93 Room Air 24-Hour Column 06/26/17 07:59 Output Total 100 ml Balance -100 ml General Appearance: + mild distress (on 02NC very mildly sob w/ speech/eating) , + obese Eyes: EOMI ENT: normal ENT inspection Neck: supple Respiratory/Chest: + decreased breath sounds (andrés L base), + crackles (andrés end insp R base) Cardiovascular: regular rate, rhythm Abdomen: normal bowel sounds, non tender, soft (no barlow) Extremities: + pedal edema (and ble edema 2-3+ pretibial) Neurologic/Psych: alert, normal mood/affect, oriented x 3 Skin: no jaundice, warm/dry, no rash Diagnostics Last 24 Hours Test 06/25/17 11:54 06/25/17 12:13 06/25/17 12:36 06/25/17 16:14 Bedside Glucose 55 mg/dl 102 mg/dl 79 mg/dl White Blood Count 6.87 K/uL Red Blood Count 3.38 M/uL Hemoglobin 10.5 g/dL Hematocrit 33.2 % Mean Corpuscular Volume 98.2 fL Mean Corpuscular Hemoglobin 31.1 pg Mean Corpuscular Hemoglobin Concent 31.6 g/dl Platelet Count 161 K/uL Mean Platelet Volume 9.1 fL Neutrophils (%) (Auto) 72.4 % Lymphocytes (%) (Auto) 15.9 % Monocytes (%) (Auto) 8.0 % Eosinophils (%) (Auto) 2.8 % Basophils (%) (Auto) 0.6 % Neutrophils # (Auto) 4.98 K/uL Lymphocytes # (Auto) 1.09 K/uL Monocytes # (Auto) 0.55 K/uL Eosinophils # (Auto) 0.19 K/uL Basophils # (Auto) 0.04 K/uL RDW Standard Deviation 59.4 fL RDW Coefficient of Variation 16.6 % Immature Granulocyte % (Auto) 0.3 % Immature Granulocyte # (Auto) 0.02 K/uL Prothrombin Time 43.3 SECONDS Prothromb Time International Ratio 4.2 Sodium Level 139 mmol/L Potassium Level 3.6 mmol/L Chloride Level 105 mmol/L Carbon Dioxide Level 27 mmol/L Anion Gap 7.0 mmol/L Blood Urea Nitrogen 35 mg/dl Creatinine 2.72 mg/dl Est Creatinine Clear Calc Drug Dose 21.1 ml/min Estimated GFR () 24.0 Estimated GFR (Non- 20.7 BUN/Creatinine Ratio 12.9 Random Glucose 59 mg/dl Calcium Level 8.2 mg/dl Total Bilirubin 0.3 mg/dl Aspartate Amino Transf (AST/SGOT) 32 U/L Alanine Aminotransferase (ALT/SGPT) 27 U/L Alkaline Phosphatase 133 U/L Troponin I 0.248 ng/ml Pro-B-Type Natriuretic Peptide 62251 pg/ml Total Protein 6.6 gm/dl Albumin 3.0 gm/dl Globulin 3.6 gm/dl Albumin/Globulin Ratio 0.8 Test 06/25/17 18:20 06/25/17 20:15 Troponin I 0.247 ng/ml Bedside Glucose 97 mg/dl Diagnostic Radiology: cxr > no evidence of HF, congestion, consolidation EKG: v paced rhythm w/ underlying a fib Assessment & Plan 82 y/o M w/ regis on ckd 4 in the setting of end stage heart failure w/ cardiomyopathy, systolic HF, CAD, afib, copd and cardiorenal syndrome. not a dialysis candidate. will attempt gentle diuresis in this complex pt to help with symptomatic volume overload; poor prognosis overall. for the moment, his serum chemistries (apart from BG which pharmacy is following closely), anemia, bp, HR are all acceptable -agree w/ lasix 80 mg iv tid -strict I/O, fluid limit lowered to 1.5 L daily, < 2 gm Na daily -daily bmp -will order ua for completeness -will increase K supplement to 20 mEq daily; may well need more appreciate consult; will follow with you.
[2017-06-25 23:42] VITALS: BP 100/62; PULSE 74; TEMP 36.4; O2SAT 96
[2017-06-26] VITALS (8 sets, daily range): BP systolic 92–124; BP diastolic 49–73; PULSE 66–84; TEMP 36.5–37.1; O2SAT 91–97
[2017-06-26] MEDS ORDERED: INSULIN ASPART 100 UNITS/ML 3 ML PEN SC SCH (02:00)
[2017-06-26] MEDS: FUROSEMIDE INJ 80 MG in SYRINGE 0 ML IV SCH ×3 (06:44→22:00)
[2017-06-26 08:15] LABS: HEMATOCRIT 34.2 % (42-52); HEMOGLOBIN 11.2 g/dL (14.0-18.0); MEAN CELL VOLUME 96.9 fL (80-100); MEAN CORPUSCULAR HEMOGLOBIN 31.7 pg (25-34); MEAN CORPUSCULAR HGB CONC 32.7 g/dl (32-36); PLATELET COUNT 175 K/uL (130-400); RED CELL DISTRIBUTION WIDTH CV 16.8 % (11.5-14.5); WHITE BLOOD COUNT 7.95 K/uL (4.8-10.8)
[2017-06-26 08:27] LABS: INR 3.6 (0.9-1.1)
[2017-06-26] MEDS: CHOLECALCIFEROL 1000 INTER.UNIT TAB PO SCH (08:40)
[2017-06-26] MEDS: CLOPIDOGREL BISULFATE 75 MG TAB PO SCH (08:40)
[2017-06-26] MEDS: SERTRALINE HCL 50 MG TAB PO SCH (08:40)
[2017-06-26] MEDS: PANTOprazole SOD 40 MG TAB PO SCH (08:40)
[2017-06-26] MEDS: DOCUSATE SODIUM/SENNA 50/8.6MG TAB PO SCH (08:40)
[2017-06-26] MEDS: TAMSULOSIN HCL 0.4 MG CAP PO SCH (08:40)
[2017-06-26] MEDS: POTASSIUM CHLORIDE 10 MEQ TABCR PO SCH (08:41)
[2017-06-26] MEDS: PANCREAZE (LIPASE 10,500U) CAP PO SCH ×4 (08:41→21:00)
[2017-06-26] MEDS: METOPROLOL SUCC 50MG EXT REL TAB PO SCH (08:42)
[2017-06-26] MEDS: ATORVASTATIN 10 MG TAB PO SCH (08:43)
[2017-06-26] MEDS: AMIODARONE 200 MG TAB PO SCH (08:43)
[2017-06-26] MEDS: CALCITRIOL 0.25 MCG CAP PO SCH (08:43)
[2017-06-26] MEDS: LEValbuterol HFA 15GM INHALER INH PRN (08:44)
[2017-06-26 08:48] LABS: CALCIUM 8.2 mg/dl (8.5-10.1); CREATININE 2.87 mg/dl (0.60-1.40); POTASSIUM 3.8 mmol/L (3.5-5.1)
[2017-06-26] MEDS ORDERED: INSULIN HUMAN NPH SC SCH ×2 (09:00→16:45)
[2017-06-26] MEDS ORDERED: POTASSIUM CHLORIDE 10 MEQ TABCR PO SCH (09:00)
[2017-06-26] MEDS ORDERED: FLUTICASONE PROPIONATE NA SPR 16 GM BTL NAE PRN (09:00)
[2017-06-26] MEDS: FINASTERIDE 5 MG TAB PO SCH (09:03)
[2017-06-26] MEDS: INSULIN ASPART 100 UNITS/ML 3 ML PEN SC SCH ×4 (10:08→23:09)
[2017-06-26 10:09] LABS: HEMOGLOBIN A1C 6.5 % (4.5-5.6)
--- NOTE | 2017-06-26 10:39 | Cardiology Follow-Up ---
Subjective General Date of Service: Jun 26, 2017. Chief Complaint: CHF Pt evaluation today including: conversation w/ patient, physical exam, chart review, lab review, review of studies, review of inpatient medication list History of Present Illness Patient sitting up in chair this AM. Reports feeling better. SOB improving. Edema improving but not at his baseline. Abdominal bloating improving. According to weights, remains about 4-5 lbs above discharge weight several weeks ago. No chest pain. No dizziness, syncope or near syncope. No palpitations. Allergies Coded Allergies: Lisinopril (Verified Allergy, Intermediate, RASH, 05/31/17) Spironolactone (Verified Allergy, Unknown, unkn, 05/31/17) Zolpidem (Verified Adverse Reaction, Mild, HALLUCINATIONS, 05/31/17) Social History Smoking Status: Former Smoker Hx Tobacco Use In Past Year?: No Hx Alcohol Use - Type And Amou: No Hx Substance Use - Type And Am: No Problem List Medical Problems: (1) Acute bronchitis Status: Acute (2) Chronic renal disease Status: Acute (3) Elevated troponin Status: Acute (4) Elevated troponin Status: Acute (5) Elevated troponin Status: Acute (6) Falls Status: Acute (7) Hypokalemia Status: Acute (8) Hypokalemia Status: Acute (9) Influenza Status: Acute (10) Orthostasis Status: Acute (11) Pulmonary edema Status: Acute (12) SOB (shortness of breath) Status: Acute (13) Systolic congestive heart failure Status: Acute (14) UTI (urinary tract infection) Status: Acute Review of Systems Respiratory: + dyspnea on exertion, No cough, No wheezing, No dyspnea at rest, No hemoptysis Cardiac: + edema, No chest pain, No orthopnea, No PND, No palpitations Physical Exam Vital Signs Last Vital Signs Documentation Date Time Temp Pulse Resp B/P (MAP) Pulse Ox O2 Delivery O2 Flow Rate FiO2 06/26/17 07:46 37.1 84 16 92/63 (73) 97 06/26/17 04:00 Room Air 06/25/17 20:00 2.0 Physical Exam Constitutional: General Apperance: overweight Level of Distress: NAD, chronically ill Psychiatric: Mental Status: active & alert Orientation: to time, to place, to person Head: normocephalic Eyes: Pupils: PERRLA Neck: supple, pertinent finding (+JVD in the upright position) Lungs: Auscultation: breath sounds normal, no wheezing, no rales/crackles Cardiovascular: Heart Auscultation: RRR, II/ TIANNA Abdomen: Bowel Sounds: normal Inspection & Palpation: soft, distended Extremities: edema (1-2+ edema to knees) Assessment and Plan Assessment and Plan ASSESSMENT: 82-year-old male 1. Acute on chronic decompensated biventricular systolic HF exacerbation, with underlying moderate to severe valvular heart disease. 2. Mixed cardiomyopathy, ischemic/non ischemic 3. 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 Paroxysmal VT - 2 non sustained episodes yesterday evening. No symptoms 5. CKD - stable PLAN: Good diuresis overnight. Weight down 2 kg since admission. Renal function stable. Continue IV diuretics today. Continue metoprolol therapy. Prior intolerances of other medications noted including BRANDON, ARB, Entresto, and Aldactone. He was previously discharged on furosemide 80 mg BID, with resultant acute decompensation. May need to try alternant diuretic therapy, torsemide vs bumex as outpatient. Will need to review outpatient records and determine what he has taken in the past. Discussed with nephrology, in agreement. Case to be discussed with Dr. Srivastvaa. Will follow. Patient was seen and examined, assessment and plan as above. Slightly improved today but right greater the left heart failure troublesome. Romel Srivastava MD Laboratory Results Last 24 Hours Test 06/25/17 11:54 06/25/17 12:13 06/25/17 12:36 06/25/17 16:14 Bedside Glucose 55 mg/dl 102 mg/dl 79 mg/dl White Blood Count 6.87 K/uL Red Blood Count 3.38 M/uL Hemoglobin 10.5 g/dL Hematocrit 33.2 % Mean Corpuscular Volume 98.2 fL Mean Corpuscular Hemoglobin 31.1 pg Mean Corpuscular Hemoglobin Concent 31.6 g/dl Platelet Count 161 K/uL Mean Platelet Volume 9.1 fL Neutrophils (%) (Auto) 72.4 % Lymphocytes (%) (Auto) 15.9 % Monocytes (%) (Auto) 8.0 % Eosinophils (%) (Auto) 2.8 % Basophils (%) (Auto) 0.6 % Neutrophils # (Auto) 4.98 K/uL Lymphocytes # (Auto) 1.09 K/uL Monocytes # (Auto) 0.55 K/uL Eosinophils # (Auto) 0.19 K/uL Basophils # (Auto) 0.04 K/uL RDW Standard Deviation 59.4 fL RDW Coefficient of Variation 16.6 % Immature Granulocyte % (Auto) 0.3 % Immature Granulocyte # (Auto) 0.02 K/uL Prothrombin Time 43.3 SECONDS Prothromb Time International Ratio 4.2 Sodium Level 139 mmol/L Potassium Level 3.6 mmol/L Chloride Level 105 mmol/L Carbon Dioxide Level 27 mmol/L Anion Gap 7.0 mmol/L Blood Urea Nitrogen 35 mg/dl Creatinine 2.72 mg/dl Est Creatinine Clear Calc Drug Dose 21.1 ml/min Estimated GFR () 24.0 Estimated GFR (Non- 20.7 BUN/Creatinine Ratio 12.9 Random Glucose 59 mg/dl Calcium Level 8.2 mg/dl Total Bilirubin 0.3 mg/dl Aspartate Amino Transf (AST/SGOT) 32 U/L Alanine Aminotransferase (ALT/SGPT) 27 U/L Alkaline Phosphatase 133 U/L Troponin I 0.248 ng/ml Pro-B-Type Natriuretic Peptide 19272 pg/ml Total Protein 6.6 gm/dl Albumin 3.0 gm/dl Globulin 3.6 gm/dl Albumin/Globulin Ratio 0.8 Test 06/25/17 18:20 06/25/17 20:15 06/26/17 02:15 06/26/17 08:00 Troponin I 0.247 ng/ml Bedside Glucose 97 mg/dl 105 mg/dl White Blood Count 7.95 K/uL Red Blood Count 3.53 M/uL Hemoglobin 11.2 g/dL Hematocrit 34.2 % Mean Corpuscular Volume 96.9 fL Mean Corpuscular Hemoglobin 31.7 pg Mean Corpuscular Hemoglobin Concent 32.7 g/dl RDW Standard Deviation 59.0 fL RDW Coefficient of Variation 16.8 % Platelet Count 175 K/uL Mean Platelet Volume 9.0 fL Prothrombin Time 36.6 SECONDS Prothromb Time International Ratio 3.6 Sodium Level 138 mmol/L Potassium Level 3.8 mmol/L Chloride Level 103 mmol/L Carbon Dioxide Level 28 mmol/L Anion Gap 6.0 mmol/L Blood Urea Nitrogen 42 mg/dl Creatinine 2.87 mg/dl Est Creatinine Clear Calc Drug Dose 19.7 ml/min Estimated GFR () 22.4 Estimated GFR (Non- 19.4 BUN/Creatinine Ratio 14.5 Random Glucose 122 mg/dl Estimated Average Glucose 140 mg/dl Hemoglobin A1c 6.5 % Calcium Level 8.2 mg/dl Triglycerides Level 94 mg/dl Cholesterol Level 85 mg/dl HDL Cholesterol 43 mg/dl LDL Cholesterol, Calculated 23 mg/dl VLDL Cholesterol, Calculated 19 mg/dl Cholesterol/HDL Ratio 2.0
--- NOTE | 2017-06-26 12:54 | Nephrology Progress Note ---
Nephrology Progress Note Date of Service: Jun 26, 2017. Subjective no pain; breathing better; 1L negative; wt 86.6 kg today; no N, no chest pain; tolerating on barlow; at bedside Objective Date Time Temp Pulse Resp B/P (MAP) Pulse Ox O2 Delivery O2 Flow Rate FiO2 06/26/17 12:03 36.5 79 18 117/71 (86) 96 06/26/17 08:00 97 Room Air 06/26/17 07:46 37.1 84 16 92/63 (73) 97 06/26/17 04:00 Room Air 06/26/17 03:55 36.7 72 19 94/49 (64) 91 Room Air 06/25/17 23:59 Room Air 06/25/17 23:42 36.4 74 18 100/62 (75) 96 Room Air 06/25/17 20:00 Nasal Cannula 2.0 06/25/17 19:05 36.6 79 22 112/72 (85) 98 Nasal Cannula 2.0 06/25/17 16:00 98 Nasal Cannula 2.0 06/25/17 15:55 36.6 72 18 102/58 (73) 98 Room Air Physical Exam: General Appearance: + mild distress (on RA in chair very mildly sob w/ speech/ eating), + obese Eyes: EOMI ENT: normal ENT inspection Neck: supple Respiratory/Chest: + decreased breath sounds (BL bases), fewer crackles Cardiovascular: regular rate, rhythm Abdomen: normal bowel sounds, non tender, soft (no barlow) Extremities: + pedal edema (and ble edema 2-3+ pretibial) Neurologic/Psych: alert, normal mood/affect, oriented x 3 Skin: no jaundice, warm/dry, no rash Current Inpatient Medications Medications (Trade) Dose Ordered Sig/Quoc Route Start Time Stop Time Status Last Admin Dose Admin Acetaminophen (Tylenol Tab) 650 mg Q4H PRN PO 06/25/17 12:15 07/25/17 12:14 06/25/17 19:34 650 MG Insulin Aspart (novoLOG ASPART) SLIDING SCALE If C... ACHS SC 06/25/17 16:15 07/25/17 16:14 06/26/17 12:37 7 UNITS Glucose (Glucose 40% Gel) 15-30 GRAMS 15 GRAMS... UD PRN PO 06/25/17 12:15 07/25/17 12:14 Glucose (Glucose Chew Tab) 4-8 Tablets 4 Tabl... UD PRN PO 06/25/17 12:15 07/25/17 12:14 Dextrose (Dextrose 50% 50ML Syringe) 25-50ML OF 50% DW IV FOR... UD PRN IV 06/25/17 12:15 07/25/17 12:14 Glucagon (Glucagon Inj) 1 mg UD PRN SQ 06/25/17 12:15 07/25/17 12:14 Miscellaneous Information (Consult Glycemic Management Pharmacy) 1 ea UD PRN N/A 06/25/17 12:47 07/25/17 12:46 Furosemide 80 mg/ Syringe 8 ml @ 4 mls/min Q8H IV 06/25/17 14:00 07/25/17 12:14 06/26/17 06:44 4 MLS/MIN Amiodarone HCl (Cordarone Tab) 200 mg DAILY PO 06/26/17 09:00 07/26/17 08:59 06/26/17 08:43 200 MG Atorvastatin Calcium (Lipitor Tab) 10 mg DAILY PO 06/26/17 09:00 07/26/17 08:59 06/26/17 08:43 10 MG Calcitriol (Rocaltrol Cap) 0.25 mcg MoWeFr@0900 PO 06/26/17 09:00 07/26/17 08:59 06/26/17 08:43 0.25 MCG Cholecalciferol (Vitamin D Tab) 1,000 inter.unit DAILY PO 06/26/17 09:00 07/26/17 08:59 06/26/17 08:40 1,000 INTER.UNIT Docusate Sodium (coLACE CAP) 100 mg BID PRN PO 06/25/17 13:30 07/25/17 13:29 Finasteride (Proscar Tab) 5 mg DAILY PO 06/26/17 09:00 07/26/17 08:59 06/26/17 09:03 5 MG Fluticasone Propionate (Flonase Nasal [place]) 2 sprays DAILY PRN RICHA 06/26/17 09:00 07/26/17 08:59 Levalbuterol (Xopenex Hfa Inhaler) 2 puffs Q4H PRN INH 06/25/17 13:30 07/25/17 13:29 06/26/17 08:44 2 PUFFS Metoprolol Succinate (Toprol Xl Tab) 50 mg DAILY PO 06/26/17 09:00 07/26/17 08:59 06/26/17 08:42 50 MG Amylase/Lipase/ Protease (Pancreaze (Lipase 10,500U) Cap) 1 cap QID PO 06/25/17 17:00 07/25/17 16:59 06/26/17 12:34 1 CAP Senna/Docusate Sodium (Senokot S Tab) 1 tab DAILY PO 06/26/17 09:00 07/26/17 08:59 06/26/17 08:40 1 TAB Tamsulosin HCl (Flomax Cap) 0.4 mg DAILY PO 06/26/17 09:00 07/26/17 08:59 06/26/17 08:40 0.4 MG Miscellaneous Information (Order Awaiting Action) 1 ea QS N/A 06/25/17 16:00 07/25/17 15:59 Oxycodone HCl (Roxicodone Immediate Rel Tab) 10 mg Q6 PRN PO 06/25/17 13:30 07/25/17 13:29 Pantoprazole Sodium (Protonix Tab) 40 mg QAM PO 06/26/17 09:00 07/26/17 08:59 06/26/17 08:40 40 MG Clopidogrel Bisulfate (plAVix TAB) 75 mg DAILY PO 06/26/17 09:00 07/26/17 08:59 06/26/17 08:40 75 MG Sertraline HCl (Zoloft Tab) 50 mg DAILY PO 06/26/17 09:00 07/26/17 08:59 06/26/17 08:40 50 MG Potassium Chloride (Klor-Con M10) 20 meq DAILY PO 06/26/17 09:00 07/26/17 08:59 06/26/17 08:41 20 MEQ Insulin Human NPH (novoLIN-N NPH) 8 units BIDM SC 06/26/17 09:00 07/26/17 08:59 Future hold 06/26/17 10:09 8 UNITS Insulin Human NPH (novoLIN-N NPH) 5 units QDD SC 06/26/17 16:45 06/26/17 16:46 Last 24 Hours Test 06/25/17 16:14 06/25/17 18:20 06/25/17 20:15 06/26/17 02:15 Bedside Glucose 79 mg/dl 97 mg/dl 105 mg/dl Troponin I 0.247 ng/ml Test 06/26/17 08:00 06/26/17 11:20 White Blood Count 7.95 K/uL Red Blood Count 3.53 M/uL Hemoglobin 11.2 g/dL Hematocrit 34.2 % Mean Corpuscular Volume 96.9 fL Mean Corpuscular Hemoglobin 31.7 pg Mean Corpuscular Hemoglobin Concent 32.7 g/dl RDW Standard Deviation 59.0 fL RDW Coefficient of Variation 16.8 % Platelet Count 175 K/uL Mean Platelet Volume 9.0 fL Prothrombin Time 36.6 SECONDS Prothromb Time International Ratio 3.6 Sodium Level 138 mmol/L Potassium Level 3.8 mmol/L Chloride Level 103 mmol/L Carbon Dioxide Level 28 mmol/L Anion Gap 6.0 mmol/L Blood Urea Nitrogen 42 mg/dl Creatinine 2.87 mg/dl Est Creatinine Clear Calc Drug Dose 19.7 ml/min Estimated GFR () 22.4 Estimated GFR (Non- 19.4 BUN/Creatinine Ratio 14.5 Random Glucose 122 mg/dl Estimated Average Glucose 140 mg/dl Hemoglobin A1c 6.5 % Calcium Level 8.2 mg/dl Triglycerides Level 94 mg/dl Cholesterol Level 85 mg/dl HDL Cholesterol 43 mg/dl LDL Cholesterol, Calculated 23 mg/dl VLDL Cholesterol, Calculated 19 mg/dl Cholesterol/HDL Ratio 2.0 Bedside Glucose 296 mg/dl Assessment & Plan 82 y/o M w/ regis on ckd 4 in the setting of end stage heart failure w/ cardiomyopathy, systolic HF, CAD, afib, copd and cardiorenal syndrome. not a dialysis candidate. will attempt gentle diuresis in this complex pt to help with symptomatic volume overload; poor prognosis overall. for the moment, his serum chemistries (apart from BG which pharmacy is following closely), anemia, bp, HR are all acceptable -cont lasix 80 mg iv tid -strict I/O, fluid limit 1.5 L daily, < 2 gm Na daily all to continue ?if he has had/is candidate for torsemide as outpt b/c he clearly fails po lasix ; though also had some fluid indiscretions prior to admission -cont palliative care discussion >> emphasized w/ pt and this small improvement today is in setting of overall picture of end stage heart problems -daily bmp -will order ua for completeness<prior requests cancelled -cont increased K supplement at 20 mEq daily; may well need more appreciate consult; will follow with you. care coordinated w/ Dr Terrell and J LUIS Lewis
--- NOTE | 2017-06-26 14:08 | Pharmacy Progress Note ---
Pharmacy Glycemic Short Note 2 Date of Service Jun 26, 2017. OUTPATIENT ANTIDIABETIC REGIMEN: * Novolog 70-30 .... 28 units in the morning and 12 units in the evening ASSESSMENT: * Ms Redd is an 82 y/o M with a complicated PMH including cardiomyopathy with cardiorenal syndrome, CHF, COPD, Afib on warfarin, CAD with stents, pancreatic cancer s/p Whipple procedure, and very well controlled type 2 diabetes (goal HbA1C according to the Elements of Diabetes Care Scoring Scale is 7.6-8.0%). The patient is admitted with worsening shortness of breath and weight gain. * After speaking with Lisa Sabillon, she informed me that the patient has had several episodes of hypoglycemia especially yesterday. When the patient was admitted, his blood sugars were 100 mg/dL and then 55 mg/dL (treated with amp of D5). Subsequently, blood sugars were 79 -97 mg/dL. Fasting this morning is 122 mg/dL which is much improved. Started NPH today to prevent rebound hyperglycemia. Start with 40% of original dose. Utilize weight-based stress of 1 for Novolog dosing with high goal range. * The patient's lunch blood sugar was 296 mg/dL.... this was falsely elevated as it was taken only 1 hour after the breakfast Novolog was given. Did not react. Follow accordingly. PLAN FOR INPATIENT GLYCEMIC CONTROL: * Basal insulin * NPH 8 units SQ with breakfast and 5 units with dinner * Bolus insulin * NovoLog per scale ACHS or Q6hrs while NPO * Goal Range: Low 140 mg/dL - High 180 mg/dL * Correction Factor: 45 mg/dL/unit * Nutritional / Prandial insulin per carb ratio of 1 unit per 15 grams CHO consumed
--- NOTE | 2017-06-26 22:55 | Progress Note ---
Medicine Progress Note Date & Time of Visit: Jun 26, 2017 at 17:26. Subjective Pt was seen and examined Sitting in chair comfortable watching in TV Pt said that he feels much better today He said that he walked in the hallway today with no significant discomfort Denies any chest pain, palpitation and dizziness Objective Last 8 Hrs Date Time Temp Pulse Resp B/P (MAP) Pulse Ox O2 Delivery O2 Flow Rate FiO2 06/26/17 16:00 97 Room Air 06/26/17 15:42 36.6 66 16 124/69 (87) 97 06/26/17 12:03 36.5 79 18 117/71 (86) 96 06/26/17 12:00 97 Room Air 06/26/17 12:00 97 Room Air Physical Exam: General- No acute distress Head- atraumatic Eyes- PERRL, EOMI ENT- oropharynx clear Neck- supple, no JVD Lungs- clear to auscultation Heart- regular rhythm Abdomen- normal bowel sounds, soft Extremities- no calf tenderness Neuro- alert, oriented x 3; PERRL, Skin- warm & dry Laboratory Results: Last 24 Hours Test 06/25/17 18:20 06/25/17 20:15 06/26/17 02:15 06/26/17 07:10 Troponin I 0.247 ng/ml Bedside Glucose 97 mg/dl 105 mg/dl 115 mg/dl Test 06/26/17 08:00 06/26/17 11:20 06/26/17 12:52 06/26/17 15:02 White Blood Count 7.95 K/uL Red Blood Count 3.53 M/uL Hemoglobin 11.2 g/dL Hematocrit 34.2 % Mean Corpuscular Volume 96.9 fL Mean Corpuscular Hemoglobin 31.7 pg Mean Corpuscular Hemoglobin Concent 32.7 g/dl RDW Standard Deviation 59.0 fL RDW Coefficient of Variation 16.8 % Platelet Count 175 K/uL Mean Platelet Volume 9.0 fL Prothrombin Time 36.6 SECONDS Prothromb Time International Ratio 3.6 Sodium Level 138 mmol/L Potassium Level 3.8 mmol/L Chloride Level 103 mmol/L Carbon Dioxide Level 28 mmol/L Anion Gap 6.0 mmol/L Blood Urea Nitrogen 42 mg/dl Creatinine 2.87 mg/dl Est Creatinine Clear Calc Drug Dose 19.7 ml/min Estimated GFR () 22.4 Estimated GFR (Non- 19.4 BUN/Creatinine Ratio 14.5 Random Glucose 122 mg/dl Estimated Average Glucose 140 mg/dl Hemoglobin A1c 6.5 % Calcium Level 8.2 mg/dl Triglycerides Level 94 mg/dl Cholesterol Level 85 mg/dl HDL Cholesterol 43 mg/dl LDL Cholesterol, Calculated 23 mg/dl VLDL Cholesterol, Calculated 19 mg/dl Cholesterol/HDL Ratio 2.0 Bedside Glucose 296 mg/dl Assessment & Plan Patient is an 82-year-old male with a PMH of systolic CHF (EF 25-30%), nonischemic cardiomyopathy, bradycardia (s/p biventricular AICD placement), persistent A. fib (on Coumadin), CAD (s/p stents), h/o pancreatic cancer (s/p Whipple in 2005), DM II, HTN, COPD and other medical problems listed below who presents as a direct admit from Dr. Morales's office for worsening SOB and weight gain. Acute on chronic systolic CHF: gained about 10lbs from last hospital discharge few days ago On IV lasix 80mg Q8h Strict I&Os, daily weights Discussed with cardiology. Clinically improved Monitor creatine Persistent A Fib: rate control Continue amiodarone and metoprolol resume warfarin INR is 3.6 CKD: Baseline Cr ~mid-high 2s creatine on admission 2.7, creatine today 2.8 Nephro on board recommended to continue IV lasix at the cuurent dose Monitor renal function Hypoglycemia in setting of DM II: Low BS on admission HbA1c 6.5 pharmacy on board for glycemic management Continue monitor BS Elevated troponin: H/o elevated troponin in setting of ESRD, CHF EKG showed no ischemic changes Asymptomatic Continue monitor in tele COPD: Cont Breo, albuterol inhalers Cont Xopenex nebs PRN Stable CAD (s/p stents in 2005): No chest pain Most recent cath without new obstruction Continue plavix and metoprolol H/o CVA: Cont plavix stable Depression: Continue SSRI monitor for QTC prolongation H/o pancreatic cancer: S/p Whipple in 2005 Continue pancreatic enzyme supplementation stable Disposition: Continue monitor in tele Nephro/palliative/cardio on board DVT Ppx INR 3.6 Resume Warfarin Code status: DNR Current Inpatient Medications: Current Inpatient Medications Medications (Trade) Dose Ordered Sig/Quoc Route Start Time Stop Time Status Last Admin Dose Admin Acetaminophen (Tylenol Tab) 650 mg Q4H PRN PO 06/25/17 12:15 07/25/17 12:14 06/25/17 19:34 650 MG Insulin Aspart (novoLOG ASPART) SLIDING SCALE If C... ACHS SC 06/25/17 16:15 07/25/17 16:14 06/26/17 17:10 2 UNITS Glucose (Glucose 40% Gel) 15-30 GRAMS 15 GRAMS... UD PRN PO 06/25/17 12:15 07/25/17 12:14 Glucose (Glucose Chew Tab) 4-8 Tablets 4 Tabl... UD PRN PO 06/25/17 12:15 07/25/17 12:14 Dextrose (Dextrose 50% 50ML Syringe) 25-50ML OF 50% DW IV FOR... UD PRN IV 06/25/17 12:15 07/25/17 12:14 Glucagon (Glucagon Inj) 1 mg UD PRN SQ 06/25/17 12:15 07/25/17 12:14 Miscellaneous Information (Consult Glycemic Management Pharmacy) 1 ea UD PRN N/A 06/25/17 12:47 07/25/17 12:46 Furosemide 80 mg/ Syringe 8 ml @ 4 mls/min Q8H IV 06/25/17 14:00 07/25/17 12:14 06/26/17 14:38 4 MLS/MIN Amiodarone HCl (Cordarone Tab) 200 mg DAILY PO 06/26/17 09:00 07/26/17 08:59 06/26/17 08:43 200 MG Atorvastatin Calcium (Lipitor Tab) 10 mg DAILY PO 06/26/17 09:00 07/26/17 08:59 06/26/17 08:43 10 MG Calcitriol (Rocaltrol Cap) 0.25 mcg MoWeFr@0900 PO 06/26/17 09:00 07/26/17 08:59 06/26/17 08:43 0.25 MCG Cholecalciferol (Vitamin D Tab) 1,000 inter.unit DAILY PO 06/26/17 09:00 07/26/17 08:59 06/26/17 08:40 1,000 INTER.UNIT Docusate Sodium (coLACE CAP) 100 mg BID PRN PO 06/25/17 13:30 4/26/18 13:29 Finasteride (Proscar Tab) 5 mg DAILY PO 06/26/17 09:00 07/26/17 08:59 06/26/17 09:03 5 MG Fluticasone Propionate (Flonase Nasal Gregory) 2 sprays DAILY PRN RICHA 06/26/17 09:00 07/26/17 08:59 Levalbuterol (Xopenex Hfa Inhaler) 2 puffs Q4H PRN INH 06/25/17 13:30 07/25/17 13:29 06/26/17 08:44 2 PUFFS Metoprolol Succinate (Toprol Xl Tab) 50 mg DAILY PO 06/26/17 09:00 07/26/17 08:59 06/26/17 08:42 50 MG Amylase/Lipase/ Protease (Pancreaze (Lipase 10,500U) Cap) 1 cap QID PO 06/25/17 17:00 07/25/17 16:59 06/26/17 17:08 1 CAP Senna/Docusate Sodium (Senokot S Tab) 1 tab DAILY PO 06/26/17 09:00 07/26/17 08:59 06/26/17 08:40 1 TAB Tamsulosin HCl (Flomax Cap) 0.4 mg DAILY PO 06/26/17 09:00 07/26/17 08:59 06/26/17 08:40 0.4 MG Miscellaneous Information (Order Awaiting Action) 1 ea QS N/A 06/25/17 16:00 07/25/17 15:59 Oxycodone HCl (Roxicodone Immediate Rel Tab) 10 mg Q6 PRN PO 06/25/17 13:30 07/25/17 13:29 Pantoprazole Sodium (Protonix Tab) 40 mg QAM PO 06/26/17 09:00 07/26/17 08:59 06/26/17 08:40 40 MG Clopidogrel Bisulfate (plAVix TAB) 75 mg DAILY PO 06/26/17 09:00 07/26/17 08:59 06/26/17 08:40 75 MG Sertraline HCl (Zoloft Tab) 50 mg DAILY PO 06/26/17 09:00 07/26/17 08:59 06/26/17 08:40 50 MG Potassium Chloride (Klor-Con M10) 20 meq DAILY PO 06/26/17 09:00 07/26/17 08:59 06/26/17 08:41 20 MEQ Insulin Human NPH (novoLIN-N NPH) 8 units BIDM SC 06/26/17 09:00 07/26/17 08:59 Future hold 06/26/17 10:09 8 UNITS
[2017-06-27] VITALS (8 sets, daily range): BP systolic 92–115; BP diastolic 52–69; PULSE 68–72; TEMP 36.5–36.7; O2SAT 95–98
[2017-06-27] MEDS: FUROSEMIDE INJ 80 MG in SYRINGE 0 ML IV SCH ×3 (06:11→20:54)
[2017-06-27] MEDS ORDERED: INSULIN HUMAN NPH SC SCH ×2 (07:30→16:45)
[2017-06-27] MEDS: CLOPIDOGREL BISULFATE 75 MG TAB PO SCH (07:59)
[2017-06-27] MEDS: CHOLECALCIFEROL 1000 INTER.UNIT TAB PO SCH (07:59)
[2017-06-27] MEDS: AMIODARONE 200 MG TAB PO SCH (07:59)
[2017-06-27] MEDS: METOPROLOL SUCC 50MG EXT REL TAB PO SCH (08:00)
[2017-06-27] MEDS: SERTRALINE HCL 50 MG TAB PO SCH (08:00)
[2017-06-27] MEDS: FINASTERIDE 5 MG TAB PO SCH (08:00)
[2017-06-27] MEDS: PANTOprazole SOD 40 MG TAB PO SCH (08:00)
[2017-06-27] MEDS: DOCUSATE SODIUM/SENNA 50/8.6MG TAB PO SCH (08:00)
[2017-06-27] MEDS: PANCREAZE (LIPASE 10,500U) CAP PO SCH ×4 (08:00→20:54)
[2017-06-27] MEDS: TAMSULOSIN HCL 0.4 MG CAP PO SCH (08:01)
[2017-06-27] MEDS: POTASSIUM CHLORIDE 10 MEQ TABCR PO SCH (08:01)
[2017-06-27] MEDS: ATORVASTATIN 10 MG TAB PO SCH (08:01)
[2017-06-27] MEDS: LEValbuterol HFA 15GM INHALER INH PRN (08:02)
[2017-06-27] MEDS: INSULIN ASPART 100 UNITS/ML 3 ML PEN SC SCH ×4 (08:07→21:01)
[2017-06-27 08:21] LABS: HEMATOCRIT 33.9 % (42-52); HEMOGLOBIN 11.1 g/dL (14.0-18.0); MEAN CELL VOLUME 96.3 fL (80-100); MEAN CORPUSCULAR HEMOGLOBIN 31.5 pg (25-34); MEAN CORPUSCULAR HGB CONC 32.7 g/dl (32-36); MEAN PLATELET VOLUME 9.5 fL (7.4-10.4); PLATELET COUNT 185 K/uL (130-400); RED CELL DISTRIBUTION WIDTH CV 16.6 % (11.5-14.5); RED CELL DISTRIBUTION WIDTH SD 57.9 fL (36.4-46.3); WHITE BLOOD COUNT 8.23 K/uL (4.8-10.8)
[2017-06-27 08:31] LABS: INR 2.4 (0.9-1.1)
[2017-06-27 08:56] LABS: CALCIUM 8.6 mg/dl (8.5-10.1); CREATININE 2.74 mg/dl (0.60-1.40)
--- NOTE | 2017-06-27 10:08 | Pharmacy Progress Note ---
Pharmacy Glycemic Short Note 2 Date of Service Jun 27, 2017. OUTPATIENT ANTIDIABETIC REGIMEN: * Novolog 70-30 .... 28 units in the morning and 12 units in the evening ASSESSMENT: * Ms Redd is an 82 y/o M with a complicated PMH including cardiomyopathy with cardiorenal syndrome, CHF, COPD, Afib on warfarin, CAD with stents, pancreatic cancer s/p Whipple procedure, and very well controlled type 2 diabetes (goal HbA1C according to the Elements of Diabetes Care Scoring Scale is 7.6-8.0%). The patient is admitted with worsening shortness of breath and weight gain. * After speaking with Lisa Sabillon, she informed me that the patient has had several episodes of hypoglycemia especially on day of admission. When the patient was admitted, his blood sugars were 100 mg/dL and then 55 mg/dL ( treated with amp of D5). Subsequently, blood sugars were 79 -97 mg/dL. Started NPH yesterday at 40% of the original dose to prevent rebound hyperglycemia. * Blood sugars yesterday were 122-296 (1 hour after Novolog given so not reflective of true trend)- 124-117. Patient received 26 units of insulin yesterday with 13 units of basal. 7 units came from the elevated blood sugar at lunch. Fasting this morning is 98 mg/dL. * Reduce basal insulin by 20% to 6 units this morning and 4 units at dinner as this fasting is still too low for patient. Blood sugar at lunch significantly elevated so tightened Novolog to weight-based stress of 2. PLAN FOR INPATIENT GLYCEMIC CONTROL: * Basal insulin * NPH 6 units SQ with breakfast and 4 units with dinner * Bolus insulin * NovoLog per scale ACHS or Q6hrs while NPO * Goal Range: Low 140 mg/dL - High 180 mg/dL * Correction Factor: 25 mg/dL/unit * Nutritional / Prandial insulin per carb ratio of 1 unit per 9 grams CHO consumed PLAN FOR OUTPATIENT GLYCEMIC MANAGEMENT * While the patient is hospitalized, he will most likely receive around 20 units per day (half of outpatient dose). I would recommend cutting insulin in half for outpatient dosing. * Novolog 70/30 9-11 units in the morning and 6-8 units in the evening. Can titrate upwards as necessary.
--- NOTE | 2017-06-27 11:50 | Cardiology Follow-Up ---
Subjective General Date of Service: Jun 27, 2017. Chief Complaint: CHF Pt evaluation today including: conversation w/ patient, physical exam, chart review, lab review, review of studies, conversation w/ customer service sales consultant, review of inpatient medication list History of Present Illness Patient feeling better this AM. SOB improving. Edema improving. Not yet at baseline. Denies chest pain or dizziness. No orthopnea. Cough improving. Allergies Coded Allergies: Lisinopril (Verified Allergy, Intermediate, RASH, 05/31/17) Spironolactone (Verified Allergy, Unknown, unkn, 05/31/17) Zolpidem (Verified Adverse Reaction, Mild, HALLUCINATIONS, 05/31/17) Social History Smoking Status: Former Smoker Hx Tobacco Use In Past Year?: No Hx Alcohol Use - Type And Amou: No Hx Substance Use - Type And Am: No Problem List Medical Problems: (1) Acute bronchitis Status: Acute (2) Chronic renal disease Status: Acute (3) Elevated troponin Status: Acute (4) Elevated troponin Status: Acute (5) Elevated troponin Status: Acute (6) Falls Status: Acute (7) Hypokalemia Status: Acute (8) Hypokalemia Status: Acute (9) Influenza Status: Acute (10) Orthostasis Status: Acute (11) Pulmonary edema Status: Acute (12) SOB (shortness of breath) Status: Acute (13) Systolic congestive heart failure Status: Acute (14) UTI (urinary tract infection) Status: Acute Review of Systems Respiratory: + dyspnea on exertion, No cough, No wheezing, No shortness of breath, No dyspnea at rest, No hemoptysis Cardiac: + edema, No chest pain, No orthopnea, No PND, No palpitations Physical Exam Vital Signs Last Vital Signs Documentation Date Time Temp Pulse Resp B/P (MAP) Pulse Ox O2 Delivery O2 Flow Rate FiO2 06/27/17 08:00 97 Room Air 06/27/17 07:36 36.7 68 18 92/52 (65) 06/25/17 20:00 2.0 Physical Exam Constitutional: General Apperance: overweight Level of Distress: NAD, chronically ill Psychiatric: Mental Status: active & alert Orientation: to time, to place, to person Head: normocephalic Eyes: Pupils: PERRLA Neck: supple, pertinent finding (+JVD in the upright position) Lungs: Auscultation: breath sounds normal, no wheezing, no rales/crackles Cardiovascular: Heart Auscultation: RRR, II/ TIANNA Abdomen: Bowel Sounds: normal Inspection & Palpation: soft, distended Extremities: edema (1+ edema to knees) Assessment and Plan Assessment and Plan ASSESSMENT: 82-year-old male 1. Acute on chronic decompensated biventricular systolic HF exacerbation, with underlying moderate to severe valvular heart disease. 2. Mixed cardiomyopathy, ischemic/non ischemic 3. 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 Paroxysmal VT, asymptomatic. 5. CKD - stable PLAN: Good diuresis over the last 24 hours. Weight additional 1 kg since admission. Clinically improving. Renal function stable. Continue IV diuretics today. Continue metoprolol therapy. Prior intolerances of other medications noted including BRANDON, ARB, Entresto, and Aldactone. He was previously discharged on furosemide 80 mg BID, with resultant acute decompensation. May need to try alternative diuretic therapy such as torsemide. He was on Bumex and Torsemide previously as an outpatient in 2016 for short term. Upon discharge will request [facility] case coordinator to place [facility] scale in house for close monitoring. Close cardio f/u will also be arranged within CHF clinic. Case discussed with Dr. Srivastava Patient seen and chart reviewed. Assessment and plan as well outlined above, he has manifested some improvement with IV furosemide We will likely transition to oral medications in a.m. Romel Srivastava MD Case to be discussed with Dr. Srivastava. Will follow. Laboratory Results Last 24 Hours Test 06/26/17 16:13 06/26/17 20:29 06/27/17 04:55 06/27/17 06:29 Bedside Glucose 124 mg/dl 117 mg/dl 98 mg/dl Urine Color YELLOW Urine Appearance CLEAR Urine pH 5.0 Urine Specific [place] 1.010 Urine Protein NEG Urine Glucose (UA) NEG Urine Ketones NEG Urine Occult Blood NEG Urine Nitrite NEG Urine Bilirubin NEG Urine Urobilinogen NEG Urine Leukocyte Esterase NEG Urine WBC (Auto) 1-5 /hpf Urine RBC (Auto) 0-4 /hpf Urine Hyaline Casts (Auto) 0 /lpf Urine Epithelial Cells (Auto) 5-10 /lpf Urine Bacteria (Auto) NEG Test 06/27/17 08:01 06/27/17 11:16 White Blood Count 8.23 K/uL Red Blood Count 3.52 M/uL Hemoglobin 11.1 g/dL Hematocrit 33.9 % Mean Corpuscular Volume 96.3 fL Mean Corpuscular Hemoglobin 31.5 pg Mean Corpuscular Hemoglobin Concent 32.7 g/dl RDW Standard Deviation 57.9 fL RDW Coefficient of Variation 16.6 % Platelet Count 185 K/uL Mean Platelet Volume 9.5 fL Prothrombin Time 24.3 SECONDS Prothromb Time International Ratio 2.4 Sodium Level 140 mmol/L Potassium Level 4.0 mmol/L Chloride Level 105 mmol/L Carbon Dioxide Level 29 mmol/L Anion Gap 6.0 mmol/L Blood Urea Nitrogen 46 mg/dl Creatinine 2.74 mg/dl Est Creatinine Clear Calc Drug Dose 20.6 ml/min Estimated GFR () 23.7 Estimated GFR (Non- 20.5 BUN/Creatinine Ratio 16.7 Random Glucose 112 mg/dl Calcium Level 8.6 mg/dl Bedside Glucose 206 mg/dl
--- NOTE | 2017-06-27 11:52 | Palliative Care Consultation ---
Consultation Date of Consultation: Jun 27, 2017. Requesting Physician: Dr. Terrell Attending Physician: Dr. Terrell Reason for Consultation: Goals of Care History of Present Illness This patient is a pleasant 82-year-old male with a significant PMH of cardiomyopathy, bradycardia s/p AICD placement, A Fib, CAD (s/p stents), h/o pancreatic cancer (s/p Whipple in 2005), CHF with an EF of 25%, and COPD who presented as a direct admit from Dr. Morales's office as he was experiencing SOB and weight gain. Palliative care was consulted for goals of care. Patient is also having renal failure related to his heart condition for which his creatinine levels have braydon in the upper 2's. Patient expressed he does not want to pursue hemodialysis. We discussed the disease progression of renal failure and answered his questions. Patient is currently a patient of the heart failure clinic, but has reservations due to the distance of the clinic from his home. We discussed how the clinic can help adjust his medications appropriately and keep him from having to return to the hospital. He has stated that he would like to transition to hospice and remain at home. He currently is able to perform ADL's at home with the help of his significant other, Lisa, who has been a good support for him with medication compliance and performing daily weights. I did phone Lisa and advise her of the plan of continuing the heart failure clinic with the support of Hospice. She was in agreement with this. I also discussed this with IVANA Esteban, with case management. A POLST form was discussed and filled out with the patient. I did observe the patient walk from the bathroom to the bed and his SpO2 did not drop below 96% on RA. He denies pain at this time. Palliative Care will support this patient throughout his hospitalization and assist with transitioning him home as needed. Past Medical/Surgical History Medical History: Cardiomyopathy CHF COPD Afib H/O Pancreatic CA Social History Smoking Status: Former Smoker History of Alcohol Use: No Drug Use: none Marital Status: , in relationship Housing Status: lives with significant other Occupation Status: retired Review of Systems Constitutional: No see HPI, No fever, No chills, No sweats, No weight loss, No weakness, No fatigue, No problem reported Eyes: No see HPI, No worsening of vision, No eye pain, No redness, No discharge , No diplopia, No problem reported ENT: No see HPI, No hearing loss, No unusual epistaxis, No nasal symptoms, No sore throat, No tinnitus, No dental problems, No trouble swallowing, No problem reported Respiratory: No see HPI, No cough, No sputum, No wheezing, No shortness of breath, No dyspnea on exertion, No dyspnea at rest, No hemoptysis, No problem reported Cardiac: No see HPI, No chest pain, No orthopnea, No PND, No edema, No claudication, No palpitations, No problem reported Breast: No see HPI, No breast lump, No change in shape, No nipple discharge, No breast pain, No problem reported Abdomen: No see HPI, No pain, No nausea, No vomiting, No diarrhea, No constipation, No GI bleeding, No problem reported Musculoskeletal: No see HPI, No joint pain, No muscle pain, No swelling, No calf pain, No problem reported Male : No see HPI, No dysuria, No urinary frequency, No incontinence, No nocturia more than once/night, No slowing stream, No hematuria, No sexual dysfunction, No problem reported Neurologic: No see HPI, No memory loss, No paralysis, No weakness, No numbness/ tingling, No vertigo, No balance problems, No problem reported Psychiatric: No see HPI, No depression symptoms, No anhedonism, No anxiety, No insomnia, No substance abuse, No problem reported Heme: No see HPI, No abnormal bleeding/bruising, No clotting problems, No swollen lymph nodes, No night sweats, No problem reported Endo: No see HPI, No fatigue, No excessive thirst, No excessive urination, No problem reported Skin: No see HPI, No rash, No itch, No new/changing skin lesions, No color change, No bleeding, No problem reported Allergies Coded Allergies: Lisinopril (Verified Allergy, Intermediate, RASH, 05/31/17) Spironolactone (Verified Allergy, Unknown, unkn, 05/31/17) Zolpidem (Verified Adverse Reaction, Mild, HALLUCINATIONS, 05/31/17) Medications Current Inpatient Medications Medications (Trade) Dose Ordered Sig/Quoc Route Start Time Stop Time Status Last Admin Dose Admin Acetaminophen (Tylenol Tab) 650 mg Q4H PRN PO 06/25/17 12:15 07/25/17 12:14 06/25/17 19:34 650 MG Insulin Aspart (novoLOG ASPART) SLIDING SCALE If C... ACHS SC 06/25/17 16:15 07/25/17 16:14 06/27/17 08:07 1 UNITS Glucose (Glucose 40% Gel) 15-30 GRAMS 15 GRAMS... UD PRN PO 06/25/17 12:15 07/25/17 12:14 Glucose (Glucose Chew Tab) 4-8 Tablets 4 Tabl... UD PRN PO 06/25/17 12:15 07/25/17 12:14 Dextrose (Dextrose 50% 50ML Syringe) 25-50ML OF 50% DW IV FOR... UD PRN IV 06/25/17 12:15 07/25/17 12:14 Glucagon (Glucagon Inj) 1 mg UD PRN SQ 06/25/17 12:15 07/25/17 12:14 Miscellaneous Information (Consult Glycemic Management Pharmacy) 1 ea UD PRN N/A 06/25/17 12:47 07/25/17 12:46 Furosemide 80 mg/ Syringe 8 ml @ 4 mls/min Q8H IV 06/25/17 14:00 07/25/17 12:14 06/27/17 06:11 4 MLS/MIN Amiodarone HCl (Cordarone Tab) 200 mg DAILY PO 06/26/17 09:00 07/26/17 08:59 06/27/17 07:59 200 MG Atorvastatin Calcium (Lipitor Tab) 10 mg DAILY PO 06/26/17 09:00 07/26/17 08:59 06/27/17 08:01 10 MG Calcitriol (Rocaltrol Cap) 0.25 mcg MoWeFr@0900 PO 06/26/17 09:00 07/26/17 08:59 06/26/17 08:43 0.25 MCG Cholecalciferol (Vitamin D Tab) 1,000 inter.unit DAILY PO 06/26/17 09:00 07/26/17 08:59 06/27/17 07:59 1,000 INTER.UNIT Docusate Sodium (coLACE CAP) 100 mg BID PRN PO 06/25/17 13:30 07/25/17 13:29 Finasteride (Proscar Tab) 5 mg DAILY PO 06/26/17 09:00 07/26/17 08:59 3/29/18 08:00 5 MG Fluticasone Propionate (Flonase Nasal [place]) 2 sprays DAILY PRN RICHA 06/26/17 09:00 07/26/17 08:59 Levalbuterol (Xopenex Hfa Inhaler) 2 puffs Q4H PRN INH 06/25/17 13:30 07/25/17 13:29 06/27/17 08:02 2 PUFFS Metoprolol Succinate (Toprol Xl Tab) 50 mg DAILY PO 06/26/17 09:00 07/26/17 08:59 06/27/17 08:00 50 MG Amylase/Lipase/ Protease (Pancreaze (Lipase 10,500U) Cap) 1 cap QID PO 06/25/17 17:00 07/25/17 16:59 06/27/17 08:00 1 CAP Senna/Docusate Sodium (Senokot S Tab) 1 tab DAILY PO 06/26/17 09:00 07/26/17 08:59 06/27/17 08:00 1 TAB Tamsulosin HCl (Flomax Cap) 0.4 mg DAILY PO 06/26/17 09:00 07/26/17 08:59 06/27/17 08:01 0.4 MG Miscellaneous Information (Order Awaiting Action) 1 ea QS N/A 06/25/17 16:00 07/25/17 15:59 Oxycodone HCl (Roxicodone Immediate Rel Tab) 10 mg Q6 PRN PO 06/25/17 13:30 07/25/17 13:29 Pantoprazole Sodium (Protonix Tab) 40 mg QAM PO 06/26/17 09:00 07/26/17 08:59 06/27/17 08:00 40 MG Clopidogrel Bisulfate (plAVix TAB) 75 mg DAILY PO 06/26/17 09:00 07/26/17 08:59 06/27/17 07:59 75 MG Sertraline HCl (Zoloft Tab) 50 mg DAILY PO 06/26/17 09:00 07/26/17 08:59 06/27/17 08:00 50 MG Potassium Chloride (Klor-Con M10) 20 meq DAILY PO 06/26/17 09:00 07/26/17 08:59 06/27/17 08:01 20 MEQ Insulin Human NPH (novoLIN-N NPH) 6 units QDB MS 06/27/17 07:30 07/27/17 07:29 06/27/17 08:08 6 UNITS Insulin Human NPH (novoLIN-N NPH) 4 units QDD MS 06/27/17 16:45 07/27/17 16:44 Physical Exam Date Time Temp Pulse Resp B/P (MAP) Pulse Ox O2 Delivery O2 Flow Rate FiO2 06/27/17 08:00 97 Room Air 06/27/17 07:36 36.7 68 18 92/52 (65) 95 06/27/17 04:46 36.6 70 18 115/66 (82) 98 Room Air 06/27/17 04:00 Room Air 06/27/17 00:00 Room Air 06/26/17 23:34 36.5 71 22 112/73 (86) 94 Room Air 06/26/17 16:00 97 Room Air 06/26/17 15:42 36.6 66 16 124/69 (87) 97 06/26/17 12:03 36.5 79 18 117/71 (86) 96 06/26/17 12:00 97 Room Air 06/26/17 12:00 97 Room Air General Appearance: WD/WN, no apparent distress Respiratory: no respiratory distress, no accessory muscle use Abdomen: normal bowel sounds, non tender, soft Laboratory Results Last 24 Hours Test 06/26/17 11:20 06/26/17 16:13 06/26/17 20:29 06/27/17 04:55 Bedside Glucose 296 mg/dl 124 mg/dl 117 mg/dl Urine Color YELLOW Urine Appearance CLEAR Urine pH 5.0 Urine Specific [place] 1.010 Urine Protein NEG Urine Glucose (UA) NEG Urine Ketones NEG Urine Occult Blood NEG Urine Nitrite NEG Urine Bilirubin NEG Urine Urobilinogen NEG Urine Leukocyte Esterase NEG Urine WBC (Auto) 1-5 /hpf Urine RBC (Auto) 0-4 /hpf Urine Hyaline Casts (Auto) 0 /lpf Urine Epithelial Cells (Auto) 5-10 /lpf Urine Bacteria (Auto) NEG Test 06/27/17 06:29 06/27/17 08:01 Bedside Glucose 98 mg/dl White Blood Count 8.23 K/uL Red Blood Count 3.52 M/uL Hemoglobin 11.1 g/dL Hematocrit 33.9 % Mean Corpuscular Volume 96.3 fL Mean Corpuscular Hemoglobin 31.5 pg Mean Corpuscular Hemoglobin Concent 32.7 g/dl RDW Standard Deviation 57.9 fL RDW Coefficient of Variation 16.6 % Platelet Count 185 K/uL Mean Platelet Volume 9.5 fL Prothrombin Time 24.3 SECONDS Prothromb Time International Ratio 2.4 Sodium Level 140 mmol/L Potassium Level 4.0 mmol/L Chloride Level 105 mmol/L Carbon Dioxide Level 29 mmol/L Anion Gap 6.0 mmol/L Blood Urea Nitrogen 46 mg/dl Creatinine 2.74 mg/dl Est Creatinine Clear Calc Drug Dose 20.6 ml/min Estimated GFR () 23.7 Estimated GFR (Non- 20.5 BUN/Creatinine Ratio 16.7 Random Glucose 112 mg/dl Calcium Level 8.6 mg/dl Assessment & Plan Palliative Performance Scale: 50 % -Code Status - Remain DNR and confirmed such on the chart -Discharge planning - Continue to have patient follow at Heart Failure clinic from a medication adjustment standpoint and support symptom management when needed. Patient on board with home hospice services as he understands how they may be helpful as his disease and comborbidities worsen. SO, Lisa on board as well. Case management to perform a 2 step O2 evaluation to determine at home O2 needs upon his return home. POLST form filled out and placed on chart. -Thank you kindly for this consult. Palliative services will follow as needed with this patient and family. > 50 minutes spent with patient with > 75% of this time discussing goals of care.
--- NOTE | 2017-06-27 11:56 | Progress Note ---
Medicine Progress Note Date & Time of Visit: Jun 27, 2017 at 11:52. Subjective Pt was seen and examined Sitting in chair comfortable with no distress Pt said that he feels much better He walked around this morning with no significant respiratory problems Denies any chest pain, palpitation, dizziness and SOB Objective Last 8 Hrs Date Time Temp Pulse Resp B/P (MAP) Pulse Ox O2 Delivery O2 Flow Rate FiO2 06/27/17 08:00 97 Room Air 06/27/17 07:36 36.7 68 18 92/52 (65) 95 06/27/17 04:46 36.6 70 18 115/66 (82) 98 Room Air 06/27/17 04:00 Room Air Physical Exam: General- No acute distress Head- atraumatic Eyes- PERRL, EOMI ENT- oropharynx clear Neck- supple, no JVD Lungs- clear to auscultation Heart- regular rhythm Abdomen- normal bowel sounds, soft Extremities- no calf tenderness, +edema Neuro- alert, oriented x 3; PERRL, Skin- warm & dry Laboratory Results: Last 24 Hours Test 06/26/17 16:13 06/26/17 20:29 06/27/17 04:55 06/27/17 06:29 Bedside Glucose 124 mg/dl 117 mg/dl 98 mg/dl Urine Color YELLOW Urine Appearance CLEAR Urine pH 5.0 Urine Specific [place] 1.010 Urine Protein NEG Urine Glucose (UA) NEG Urine Ketones NEG Urine Occult Blood NEG Urine Nitrite NEG Urine Bilirubin NEG Urine Urobilinogen NEG Urine Leukocyte Esterase NEG Urine WBC (Auto) 1-5 /hpf Urine RBC (Auto) 0-4 /hpf Urine Hyaline Casts (Auto) 0 /lpf Urine Epithelial Cells (Auto) 5-10 /lpf Urine Bacteria (Auto) NEG Test 06/27/17 08:01 06/27/17 11:16 White Blood Count 8.23 K/uL Red Blood Count 3.52 M/uL Hemoglobin 11.1 g/dL Hematocrit 33.9 % Mean Corpuscular Volume 96.3 fL Mean Corpuscular Hemoglobin 31.5 pg Mean Corpuscular Hemoglobin Concent 32.7 g/dl RDW Standard Deviation 57.9 fL RDW Coefficient of Variation 16.6 % Platelet Count 185 K/uL Mean Platelet Volume 9.5 fL Prothrombin Time 24.3 SECONDS Prothromb Time International Ratio 2.4 Sodium Level 140 mmol/L Potassium Level 4.0 mmol/L Chloride Level 105 mmol/L Carbon Dioxide Level 29 mmol/L Anion Gap 6.0 mmol/L Blood Urea Nitrogen 46 mg/dl Creatinine 2.74 mg/dl Est Creatinine Clear Calc Drug Dose 20.6 ml/min Estimated GFR () 23.7 Estimated GFR (Non- 20.5 BUN/Creatinine Ratio 16.7 Random Glucose 112 mg/dl Calcium Level 8.6 mg/dl Bedside Glucose 206 mg/dl Assessment & Plan Patient is an 82-year-old male with a PMH of systolic CHF (EF 25-30%), nonischemic cardiomyopathy, bradycardia (s/p biventricular AICD placement), persistent A. fib (on Coumadin), CAD (s/p stents), h/o pancreatic cancer (s/p Whipple in 2005), DM II, HTN, COPD and other medical problems listed below who presents as a direct admit from Dr. Morales's office for worsening SOB and weight gain. Acute on chronic systolic CHF: gained about 10lbs from last hospital discharge few days ago On IV lasix 80mg Q8h Strict I&Os ( - 1.8L ) Discussed with cardiology, plan to change diuretic with Torsemide Clinically improved Monitor creatine Persistent A Fib: rate control Continue amiodarone and metoprolol Resume warfarin 2 mg INR is 2.4 CKD: Baseline Cr ~mid-high 2s creatine on admission 2.7 that is stable today Nephro on board recommended to continue IV lasix at the cuurent dose Monitor renal function Hypoglycemia in setting of DM II: Low BS on admission HbA1c 6.5 pharmacy on board for glycemic management Continue monitor BS Elevated troponin: H/o elevated troponin in setting of ESRD, CHF EKG showed no ischemic changes Asymptomatic Continue monitor in tele COPD: Cont Breo, albuterol inhalers Cont Xopenex nebs PRN Stable CAD (s/p stents in 2005): No chest pain Most recent cath without new obstruction Continue plavix and metoprolol H/o CVA: Cont plavix stable Depression: Continue SSRI monitor for QTC prolongation H/o pancreatic cancer: S/p Whipple in 2005 Continue pancreatic enzyme supplementation stable Disposition: Continue monitor in tele Nephro/palliative/cardio on board DVT Ppx INR 2.4 Resume Warfarin Code status: DNR Current Inpatient Medications: Current Inpatient Medications Medications (Trade) Dose Ordered Sig/Quoc Route Start Time Stop Time Status Last Admin Dose Admin Acetaminophen (Tylenol Tab) 650 mg Q4H PRN PO 06/25/17 12:15 07/25/17 12:14 06/25/17 19:34 650 MG Insulin Aspart (novoLOG ASPART) SLIDING SCALE If C... ACHS SC 06/25/17 16:15 07/25/17 16:14 06/27/17 08:07 1 UNITS Glucose (Glucose 40% Gel) 15-30 GRAMS 15 GRAMS... UD PRN PO 06/25/17 12:15 07/25/17 12:14 Glucose (Glucose Chew Tab) 4-8 Tablets 4 Tabl... UD PRN PO 06/25/17 12:15 07/25/17 12:14 Dextrose (Dextrose 50% 50ML Syringe) 25-50ML OF 50% DW IV FOR... UD PRN IV 06/25/17 12:15 07/25/17 12:14 Glucagon (Glucagon Inj) 1 mg UD PRN SQ 06/25/17 12:15 07/25/17 12:14 Miscellaneous Information (Consult Glycemic Management Pharmacy) 1 ea UD PRN N/A 06/25/17 12:47 07/25/17 12:46 Furosemide 80 mg/ Syringe 8 ml @ 4 mls/min Q8H IV 06/25/17 14:00 07/25/17 12:14 06/27/17 06:11 4 MLS/MIN Amiodarone HCl (Cordarone Tab) 200 mg DAILY PO 06/26/17 09:00 07/26/17 08:59 06/27/17 07:59 200 MG Atorvastatin Calcium (Lipitor Tab) 10 mg DAILY PO 06/26/17 09:00 07/26/17 08:59 06/27/17 08:01 10 MG Calcitriol (Rocaltrol Cap) 0.25 mcg MoWeFr@0900 PO 06/26/17 09:00 07/26/17 08:59 06/26/17 08:43 0.25 MCG Cholecalciferol (Vitamin D Tab) 1,000 inter.unit DAILY PO 06/26/17 09:00 07/26/17 08:59 06/27/17 07:59 1,000 INTER.UNIT Docusate Sodium (coLACE CAP) 100 mg BID PRN PO 06/25/17 13:30 07/25/17 13:29 Finasteride (Proscar Tab) 5 mg DAILY PO 06/26/17 09:00 07/26/17 08:59 06/27/17 08:00 5 MG Fluticasone Propionate (Flonase Nasal [place]) 2 sprays DAILY PRN RICHA 06/26/17 09:00 07/26/17 08:59 Levalbuterol (Xopenex Hfa Inhaler) 2 puffs Q4H PRN INH 06/25/17 13:30 07/25/17 13:29 06/27/17 08:02 2 PUFFS Metoprolol Succinate (Toprol Xl Tab) 50 mg DAILY PO 06/26/17 09:00 07/26/17 08:59 06/27/17 08:00 50 MG Amylase/Lipase/ Protease (Pancreaze (Lipase 10,500U) Cap) 1 cap QID PO 06/25/17 17:00 07/25/17 16:59 06/27/17 08:00 1 CAP Senna/Docusate Sodium (Senokot S Tab) 1 tab DAILY PO 06/26/17 09:00 07/26/17 08:59 06/27/17 08:00 1 TAB Tamsulosin HCl (Flomax Cap) 0.4 mg DAILY PO 06/26/17 09:00 07/26/17 08:59 06/27/17 08:01 0.4 MG Miscellaneous Information (Order Awaiting Action) 1 ea QS N/A 06/25/17 16:00 07/25/17 15:59 Oxycodone HCl (Roxicodone Immediate Rel Tab) 10 mg Q6 PRN PO 06/25/17 13:30 07/25/17 13:29 Pantoprazole Sodium (Protonix Tab) 40 mg QAM PO 06/26/17 09:00 07/26/17 08:59 06/27/17 08:00 40 MG Clopidogrel Bisulfate (plAVix TAB) 75 mg DAILY PO 06/26/17 09:00 07/26/17 08:59 06/27/17 07:59 75 MG Sertraline HCl (Zoloft Tab) 50 mg DAILY PO 06/26/17 09:00 07/26/17 08:59 06/27/17 08:00 50 MG Potassium Chloride (Klor-Con M10) 20 meq DAILY PO 06/26/17 09:00 07/26/17 08:59 06/27/17 08:01 20 MEQ Insulin Human NPH (novoLIN-N NPH) 6 units QDB SC 06/27/17 07:30 07/27/17 07:29 06/27/17 08:08 6 UNITS Insulin Human NPH (novoLIN-N NPH) 4 units QDD SC 06/27/17 16:45 07/27/17 16:44
[2017-06-27] MEDS ORDERED: WARFARIN SOD 2 MG TAB PO SCH (16:00)
--- NOTE | 2017-06-27 17:46 | Nephrology Progress Note ---
Nephrology Progress Note Date of Service: Jun 27, 2017. Subjective no pain; breathing better; no N, no chest pain; voiding ok Objective Date Time Temp Pulse Resp B/P (MAP) Pulse Ox O2 Delivery O2 Flow Rate FiO2 06/27/17 16:00 96 Room Air 06/27/17 15:30 36.6 71 20 107/69 (82) 97 Room Air 06/27/17 12:00 97 Room Air 06/27/17 11:47 36.6 69 16 104/59 (74) 98 06/27/17 08:00 97 Room Air 06/27/17 07:36 36.7 68 18 92/52 (65) 95 06/27/17 04:46 36.6 70 18 115/66 (82) 98 Room Air 06/27/17 04:00 Room Air 06/27/17 00:00 Room Air 06/26/17 23:34 36.5 71 22 112/73 (86) 94 Room Air Physical Exam: General Appearance: nad, lying flat + obese Eyes: EOMI ENT: normal ENT inspection Neck: supple Respiratory/Chest: + decreased breath sounds (BL bases), no crackles today Cardiovascular: regular rate, rhythm Abdomen: normal bowel sounds, non tender, soft (no barlow) Extremities: + pedal edema (and ble edema 2-3+ pretibial) Neurologic/Psych: alert, normal mood/affect, oriented x 3 Skin: no jaundice, warm/dry, no rash Current Inpatient Medications Medications (Trade) Dose Ordered Sig/Quoc Route Start Time Stop Time Status Last Admin Dose Admin Acetaminophen (Tylenol Tab) 650 mg Q4H PRN PO 06/25/17 12:15 07/25/17 12:14 06/25/17 19:34 650 MG Insulin Aspart (novoLOG ASPART) SLIDING SCALE If C... ACHS SC 06/25/17 16:15 07/25/17 16:14 06/27/17 13:33 7 UNITS Glucose (Glucose 40% Gel) 15-30 GRAMS 15 GRAMS... UD PRN PO 06/25/17 12:15 07/25/17 12:14 Glucose (Glucose Chew Tab) 4-8 Tablets 4 Tabl... UD PRN PO 06/25/17 12:15 07/25/17 12:14 Dextrose (Dextrose 50% 50ML Syringe) 25-50ML OF 50% DW IV FOR... UD PRN IV 06/25/17 12:15 07/25/17 12:14 Glucagon (Glucagon Inj) 1 mg UD PRN SQ 06/25/17 12:15 07/25/17 12:14 Miscellaneous Information (Consult Glycemic Management Pharmacy) 1 ea UD PRN N/A 06/25/17 12:47 07/25/17 12:46 Furosemide 80 mg/ Syringe 8 ml @ 4 mls/min Q8H IV 06/25/17 14:00 07/25/17 12:14 06/27/17 13:20 4 MLS/MIN Amiodarone HCl (Cordarone Tab) 200 mg DAILY PO 06/26/17 09:00 07/26/17 08:59 06/27/17 07:59 200 MG Atorvastatin Calcium (Lipitor Tab) 10 mg DAILY PO 06/26/17 09:00 07/26/17 08:59 06/27/17 08:01 10 MG Calcitriol (Rocaltrol Cap) 0.25 mcg MoWeFr@0900 PO 06/26/17 09:00 07/26/17 08:59 06/26/17 08:43 0.25 MCG Cholecalciferol (Vitamin D Tab) 1,000 inter.unit DAILY PO 06/26/17 09:00 07/26/17 08:59 06/27/17 07:59 1,000 INTER.UNIT Docusate Sodium (coLACE CAP) 100 mg BID PRN PO 06/25/17 13:30 07/25/17 13:29 Finasteride (Proscar Tab) 5 mg DAILY PO 06/26/17 09:00 07/26/17 08:59 06/27/17 08:00 5 MG Fluticasone Propionate (Flonase Nasal [place]) 2 sprays DAILY PRN RICHA 06/26/17 09:00 07/26/17 08:59 Levalbuterol (Xopenex Hfa Inhaler) 2 puffs Q4H PRN INH 06/25/17 13:30 07/25/17 13:29 06/27/17 08:02 2 PUFFS Metoprolol Succinate (Toprol Xl Tab) 50 mg DAILY PO 06/26/17 09:00 07/26/17 08:59 06/27/17 08:00 50 MG Amylase/Lipase/ Protease (Pancreaze (Lipase 10,500U) Cap) 1 cap QID PO 06/25/17 17:00 07/25/17 16:59 06/27/17 17:33 1 CAP Senna/Docusate Sodium (Senokot S Tab) 1 tab DAILY PO 06/26/17 09:00 07/26/17 08:59 06/27/17 08:00 1 TAB Tamsulosin HCl (Flomax Cap) 0.4 mg DAILY PO 06/26/17 09:00 07/26/17 08:59 06/27/17 08:01 0.4 MG Miscellaneous Information (Order Awaiting Action) 1 ea QS N/A 06/25/17 16:00 07/25/17 15:59 Oxycodone HCl (Roxicodone Immediate Rel Tab) 10 mg Q6 PRN PO 06/25/17 13:30 07/25/17 13:29 Pantoprazole Sodium (Protonix Tab) 40 mg QAM PO 06/26/17 09:00 07/26/17 08:59 06/27/17 08:00 40 MG Clopidogrel Bisulfate (plAVix TAB) 75 mg DAILY PO 06/26/17 09:00 07/26/17 08:59 06/27/17 07:59 75 MG Sertraline HCl (Zoloft Tab) 50 mg DAILY PO 06/26/17 09:00 07/26/17 08:59 06/27/17 08:00 50 MG Potassium Chloride (Klor-Con M10) 20 meq DAILY PO 06/26/17 09:00 07/26/17 08:59 06/27/17 08:01 20 MEQ Insulin Human NPH (novoLIN-N NPH) 6 units QDB SC 06/27/17 07:30 07/27/17 07:29 06/27/17 08:08 6 UNITS Insulin Human NPH (novoLIN-N NPH) 4 units QDD SC 06/27/17 16:45 07/27/17 16:44 06/27/17 17:35 4 UNITS Warfarin Sodium (Coumadin Tab) 2 mg DAILY@16 PO 06/27/17 16:00 07/27/17 15:59 06/27/17 15:24 2 MG Last 24 Hours Test 06/26/17 20:29 3/29/18 04:55 06/27/17 06:29 06/27/17 08:01 Bedside Glucose 117 mg/dl 98 mg/dl Urine Color YELLOW Urine Appearance CLEAR Urine pH 5.0 Urine Specific [place] 1.010 Urine Protein NEG Urine Glucose (UA) NEG Urine Ketones NEG Urine Occult Blood NEG Urine Nitrite NEG Urine Bilirubin NEG Urine Urobilinogen NEG Urine Leukocyte Esterase NEG Urine WBC (Auto) 1-5 /hpf Urine RBC (Auto) 0-4 /hpf Urine Hyaline Casts (Auto) 0 /lpf Urine Epithelial Cells (Auto) 5-10 /lpf Urine Bacteria (Auto) NEG White Blood Count 8.23 K/uL Red Blood Count 3.52 M/uL Hemoglobin 11.1 g/dL Hematocrit 33.9 % Mean Corpuscular Volume 96.3 fL Mean Corpuscular Hemoglobin 31.5 pg Mean Corpuscular Hemoglobin Concent 32.7 g/dl RDW Standard Deviation 57.9 fL RDW Coefficient of Variation 16.6 % Platelet Count 185 K/uL Mean Platelet Volume 9.5 fL Prothrombin Time 24.3 SECONDS Prothromb Time International Ratio 2.4 Sodium Level 140 mmol/L Potassium Level 4.0 mmol/L Chloride Level 105 mmol/L Carbon Dioxide Level 29 mmol/L Anion Gap 6.0 mmol/L Blood Urea Nitrogen 46 mg/dl Creatinine 2.74 mg/dl Est Creatinine Clear Calc Drug Dose 20.6 ml/min Estimated GFR () 23.7 Estimated GFR (Non- 20.5 BUN/Creatinine Ratio 16.7 Random Glucose 112 mg/dl Calcium Level 8.6 mg/dl Test 06/27/17 11:16 Bedside Glucose 206 mg/dl Assessment & Plan 82 y/o M w/ regis on ckd 4 in the setting of end stage heart failure w/ cardiomyopathy, systolic HF, CAD, afib, copd and cardiorenal syndrome. not a dialysis candidate. will attempt gentle diuresis in this complex pt to help with symptomatic volume overload; poor prognosis overall. for the moment, his serum chemistries (apart from BG which pharmacy is following closely), anemia, bp, HR are all acceptable. urine sediment bland -cont lasix 80 mg iv tid -strict I/O, fluid limit 1.5 L daily, < 2 gm Na daily all to continue ?if he has had/is candidate for torsemide as outpt b/c he clearly fails po lasix ; though also had some fluid indiscretions prior to admission -cont palliative care discussion >> emphasized w/ pt his small improvement is in setting of overall end stage heart problems -daily bmp -cont increased K supplement at 20 mEq daily; may well need more appreciate consult; will follow with you. care coordinated w/ Dr Terrell
[2017-06-28 00:27] VITALS: BP 111/71; PULSE 72; TEMP 36.6; O2SAT 100
[2017-06-28] MEDS: LEValbuterol HFA 15GM INHALER INH PRN (02:10)
[2017-06-28] MEDS: ACETAMINOPHEN 325 MG TAB PO PRN (02:12)
[2017-06-28 03:48] VITALS: BP 110/63; PULSE 69; TEMP 36.3; O2SAT 97
[2017-06-28 06:32] LABS: HEMATOCRIT 30.6 % (42-52); MEAN CELL VOLUME 95.6 fL (80-100); MEAN CORPUSCULAR HEMOGLOBIN 31.3 pg (25-34); MEAN CORPUSCULAR HGB CONC 32.7 g/dl (32-36); MEAN PLATELET VOLUME 9.4 fL (7.4-10.4); PLATELET COUNT 161 K/uL (130-400); RED CELL DISTRIBUTION WIDTH CV 16.5 % (11.5-14.5); RED CELL DISTRIBUTION WIDTH SD 57.3 fL (36.4-46.3); WHITE BLOOD COUNT 6.07 K/uL (4.8-10.8)
[2017-06-28 07:09] LABS: CALCIUM 8.1 mg/dl (8.5-10.1); CREATININE 2.6 mg/dl (0.60-1.40); POTASSIUM 3.5 mmol/L (3.5-5.1)
[2017-06-28] MEDS ORDERED: INSULIN HUMAN NPH SC SCH ×2 (07:30→16:45)
[2017-06-28] MEDS: FUROSEMIDE INJ 80 MG in SYRINGE 0 ML IV SCH ×2 (07:55→13:39)
[2017-06-28] MEDS: TAMSULOSIN HCL 0.4 MG CAP PO SCH (07:56)
[2017-06-28] MEDS: AMIODARONE 200 MG TAB PO SCH (07:56)
[2017-06-28] MEDS: ATORVASTATIN 10 MG TAB PO SCH (07:57)
[2017-06-28] MEDS: PANCREAZE (LIPASE 10,500U) CAP PO SCH ×2 (07:57→12:01)
[2017-06-28] MEDS: CLOPIDOGREL BISULFATE 75 MG TAB PO SCH (07:57)
[2017-06-28] MEDS: POTASSIUM CHLORIDE 10 MEQ TABCR PO SCH (07:57)
[2017-06-28] MEDS: DOCUSATE SODIUM/SENNA 50/8.6MG TAB PO SCH (07:58)
[2017-06-28] MEDS: PANTOprazole SOD 40 MG TAB PO SCH (07:58)
[2017-06-28] MEDS: FINASTERIDE 5 MG TAB PO SCH (07:58)
[2017-06-28] MEDS: METOPROLOL SUCC 50MG EXT REL TAB PO SCH (07:58)
[2017-06-28] MEDS: CALCITRIOL 0.25 MCG CAP PO SCH (07:58)
[2017-06-28] MEDS: SERTRALINE HCL 50 MG TAB PO SCH (07:59)
[2017-06-28] MEDS: CHOLECALCIFEROL 1000 INTER.UNIT TAB PO SCH (07:59)
[2017-06-28] MEDS: INSULIN ASPART 100 UNITS/ML 3 ML PEN SC SCH ×2 (08:01→12:03)
[2017-06-28 08:27] VITALS: BP 114/76; PULSE 66; TEMP 36.6; O2SAT 95
--- NOTE | 2017-06-28 09:13 | Cardiology Follow-Up ---
Subjective General Date of Service: Jun 28, 2017. Chief Complaint: CHF Pt evaluation today including: conversation w/ patient, physical exam, chart review, lab review, review of studies, review of inpatient medication list History of Present Illness Patient feeling good this AM. Requesting to go home. Denies chest pain or SOB. Abdominal bloating improved. Edema present but improved from admission. Allergies Coded Allergies: Lisinopril (Verified Allergy, Intermediate, RASH, 05/31/17) Spironolactone (Verified Allergy, Unknown, unkn, 05/31/17) Zolpidem (Verified Adverse Reaction, Mild, HALLUCINATIONS, 05/31/17) Social History Smoking Status: Former Smoker Hx Tobacco Use In Past Year?: No Hx Alcohol Use - Type And Amou: No Hx Substance Use - Type And Am: No Problem List Medical Problems: (1) Acute bronchitis Status: Acute (2) Chronic renal disease Status: Acute (3) Elevated troponin Status: Acute (4) Elevated troponin Status: Acute (5) Elevated troponin Status: Acute (6) Falls Status: Acute (7) Hypokalemia Status: Acute (8) Hypokalemia Status: Acute (9) Influenza Status: Acute (10) Orthostasis Status: Acute (11) Pulmonary edema Status: Acute (12) SOB (shortness of breath) Status: Acute (13) Systolic congestive heart failure Status: Acute (14) UTI (urinary tract infection) Status: Acute Review of Systems Respiratory: No cough, No shortness of breath, No hemoptysis Cardiac: + edema, No chest pain, No orthopnea, No PND, No palpitations Physical Exam Vital Signs Last Vital Signs Documentation Date Time Temp Pulse Resp B/P (MAP) Pulse Ox O2 Delivery O2 Flow Rate FiO2 06/28/17 08:27 36.6 66 16 114/76 (89) 95 06/28/17 04:00 Room Air 06/25/17 20:00 2.0 Physical Exam Constitutional: General Apperance: overweight Level of Distress: NAD, chronically ill Psychiatric: Mental Status: active & alert Orientation: to time, to place, to person Head: normocephalic Eyes: Pupils: PERRLA Neck: supple, pertinent finding (+JVD in the upright position) Lungs: Auscultation: breath sounds normal, no wheezing, no rales/crackles Cardiovascular: Heart Auscultation: RRR, II/ TIANNA Abdomen: Bowel Sounds: normal Inspection & Palpation: soft, distended Extremities: edema (1+ pretibial edema) Assessment and Plan Assessment and Plan ASSESSMENT: 82-year-old male 1. Acute on chronic decompensated biventricular systolic HF exacerbation, with underlying moderate to severe valvular heart disease. 2. Mixed cardiomyopathy, ischemic/non ischemic 3. 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 Paroxysmal VT, asymptomatic. 5. CKD - stable PLAN: Good diuresis since admission. Negative 5 L since admission. Down 3-4 kg Clinically improving. Renal function stable. Transition to torsemide 40 mg BID on discharge. Supplement potassium. Additional dose given this AM. Increase potassium to 20 meq on discharge (previously on 10 meq daily). BMP next week Prior intolerances of other medications noted including BRANDON, ARB, Entresto, and Aldactone. Upon discharge will request [facility] housing case manager to place [facility] scale in house for close monitoring. Close cardio f/u will also be arranged within CHF clinic within 1 week will be arranged. Case discussed with Dr. Srivastava Patient seen and examined assessment and plan as noted above. Patient is anxious to be discharged made clinical progress since admission and is symptomatically improved. Medication adjustments as noted above and outpatient follow-up has been arranged. Romel Srivastava MD Laboratory Results Last 24 Hours Test 06/27/17 11:16 06/27/17 20:20 06/28/17 06:14 06/28/17 06:38 Bedside Glucose 206 mg/dl 240 mg/dl 164 mg/dl White Blood Count 6.07 K/uL Red Blood Count 3.20 M/uL Hemoglobin 10.0 g/dL Hematocrit 30.6 % Mean Corpuscular Volume 95.6 fL Mean Corpuscular Hemoglobin 31.3 pg Mean Corpuscular Hemoglobin Concent 32.7 g/dl RDW Standard Deviation 57.3 fL RDW Coefficient of Variation 16.5 % Platelet Count 161 K/uL Mean Platelet Volume 9.4 fL Prothrombin Time 20.4 SECONDS Prothromb Time International Ratio 2.0 Sodium Level 140 mmol/L Potassium Level 3.5 mmol/L Chloride Level 105 mmol/L Carbon Dioxide Level 26 mmol/L Anion Gap 9.0 mmol/L Blood Urea Nitrogen 47 mg/dl Creatinine 2.60 mg/dl Est Creatinine Clear Calc Drug Dose 21.7 ml/min Estimated GFR () 25.3 Estimated GFR (Non- 21.8 BUN/Creatinine Ratio 18.0 Random Glucose 132 mg/dl Calcium Level 8.1 mg/dl
[2017-06-28] MEDS ORDERED: POTASSIUM CHLORIDE 20 MEQ TABCR PO ONE (09:15)
[2017-06-28 11:59] VITALS: BP 118/76; PULSE 71; TEMP 36.6; O2SAT 98
--- NOTE | 2017-06-28 12:55 | Pharmacy Progress Note ---
Pharmacy Glycemic Short Note 2 Date of Service Jun 28, 2017. OUTPATIENT ANTIDIABETIC REGIMEN: * Novolog 70-30 .... 28 units in the morning and 12 units in the evening ASSESSMENT: * Ms Redd is an 82 y/o M with a complicated PMH including cardiomyopathy with cardiorenal syndrome, CHF, COPD, Afib on warfarin, CAD with stents, pancreatic cancer s/p Whipple procedure, and very well controlled type 2 diabetes (goal HbA1C according to the Elements of Diabetes Care Scoring Scale is 7.6-8.0%). The patient is admitted with worsening shortness of breath and weight gain. * After speaking with Lisa Sabillon, she informed me that the patient has had several episodes of hypoglycemia especially on day of admission. When the patient was admitted, his blood sugars were 100 mg/dL and then 55 mg/dL ( treated with amp of D5). Subsequently, blood sugars were 79 -97 mg/dL. Started NPH yesterday at 40% of the original dose to prevent rebound hyperglycemia. * Blood sugars yesterday were 98-206-?-240. Fasting this morning was 164 mg/dL. The patient received 23 units of insulin yesterday with 10 units of NPH. For NPH , the patient's fasting blood sugar was elevated today so increased NPH to half of home dose for the morning and slightly more than half for evening. Does reflect a larger jump than normal but patient was initially cut back significantly. Tightened to weight-based stress of 2 yesterday for Novolog. Tightened carbohydrate ratio slightly this morning as the patient climbed throughout the day. Lowered goal range slightly to provide better glycemic coverage PLAN FOR INPATIENT GLYCEMIC CONTROL: * Basal insulin * NPH 10 units SQ with breakfast and 6 units with dinner * Bolus insulin * NovoLog per scale ACHS or Q6hrs while NPO * Goal Range: Low 140 mg/dL - High 180 mg/dL * Correction Factor: 25 mg/dL/unit * Nutritional / Prandial insulin per carb ratio of 1 unit per 8 grams CHO consumed PLAN FOR OUTPATIENT GLYCEMIC MANAGEMENT * While the patient is hospitalized, he will most likely receive around 20 units per day (half of outpatient dose). I would recommend cutting insulin in half for outpatient dosing. * Novolog 70/30 15 units in the morning and 9 units in the evening. Can titrate upwards as necessary.
[2017-06-28] MEDS ORDERED: DMD20 PO (13:32)
[2017-06-28] MEDS ORDERED: MCRK/10 PO (13:32)
[2017-06-28 13:54] VITALS: BP 118/76; PULSE 71; TEMP 36.6; O2SAT 98
--- NOTE | 2017-06-28 13:58 | Discharge Instructions ---
Discharge Instructions Date of Service Jun 28, 2017. Admission Reason for Admission: Acute On Chronic Systolic Heart Failure Discharge Discharge Diagnosis / Problem: Acute on chronic systolic CHF, Hypoglycemia, Diabetes Discharge Goals Goal(s): Decrease discomfort, Improve function, Improve disease control Activity Recommendations Activity Limitations: resume your previous activity (as tolerated) . Instructions / Follow-Up Instructions / Follow-Up Follow up with your primary care provider Dr. Cuello on 07/02 @ 1:15 PM Follow up with the heart failure clinic next week ( The clinic will contact you with the appointment) Follow up with nephrology Check BMP within 1 week Follow up with the Coumadin clinic (check Coumadin on Saturday) Monitor Blood sugar and your physician will titrate your insulin if needed Follow up a low salt diet and limited fluid intake Lemuel director of casework services will arrange to place a scale in house for close monitoring. Fall precaution Medication changes Lasix discontinued Potassium increased to 20mg daily insulin increase to 15 units in the morning and 9 units at night Starting on Torsemide 40mg twice a day. Next dose tonight Current Hospital Diet Patient's current hospital diet: Low Sodium Diet (2gm Na), Diabetes Type 2 Diet Discharge Diet Recommended Diet: Low Sodium Diet (2gm Na), Diabetes Type 2 Diet Pending Studies Studies pending at discharge: no Laboratory Results Hemoglobin A1c Test 06/26/17 08:00 Range/Units Estimated Average Glucose 140 mg/dl Hemoglobin A1c 6.5 H 4.5-5.6 % Lipid Panel Test 06/26/17 08:00 Range/Units Triglycerides Level 94 0-150 mg/dl Cholesterol Level 85 0-200 mg/dl HDL Cholesterol 43 mg/dl Cholesterol/HDL Ratio 2.0 LDL Cholesterol, Calculated 23 mg/dl Medical Emergencies . Who to Call and When: Medical Emergencies: If at any time you feel your situation is an emergency, please call 911 immediately. . Non-Emergent Contact Non-Emergency issues call your: Primary Care Provider Call Non-Emergent contact if: you have any medication questions . . "Provider Documentation" section prepared by Omar Terrell. .
--- NOTE | 2017-06-28 14:19 | Progress Note ---
Medicine Progress Note Date & Time of Visit: Jun 28, 2017 at 14:09. Subjective Pt was seen and examined Sitting in chair with no distress Pt is walking in the hallway with no distress Pt said that she feels good to go Denies any chest pain, palpitation and sob Objective Last 8 Hrs Date Time Temp Pulse Resp B/P (MAP) Pulse Ox O2 Delivery O2 Flow Rate FiO2 06/28/17 12:00 Room Air 06/28/17 11:59 36.6 71 16 118/76 (90) 98 Room Air 06/28/17 08:27 36.6 66 16 114/76 (89) 95 06/28/17 08:00 Room Air Physical Exam: General- No acute distress Head- atraumatic Eyes- PERRL, EOMI ENT- oropharynx clear Neck- supple, no JVD Lungs- clear to auscultation Heart- regular rhythm Abdomen- normal bowel sounds, soft Extremities- no calf tenderness, +edema Neuro- alert, oriented x 3; PERRL, Skin- warm & dry Laboratory Results: Last 24 Hours Test 06/27/17 20:20 06/28/17 06:14 06/28/17 06:38 06/28/17 11:50 Bedside Glucose 240 mg/dl 164 mg/dl 169 mg/dl White Blood Count 6.07 K/uL Red Blood Count 3.20 M/uL Hemoglobin 10.0 g/dL Hematocrit 30.6 % Mean Corpuscular Volume 95.6 fL Mean Corpuscular Hemoglobin 31.3 pg Mean Corpuscular Hemoglobin Concent 32.7 g/dl RDW Standard Deviation 57.3 fL RDW Coefficient of Variation 16.5 % Platelet Count 161 K/uL Mean Platelet Volume 9.4 fL Prothrombin Time 20.4 SECONDS Prothromb Time International Ratio 2.0 Sodium Level 140 mmol/L Potassium Level 3.5 mmol/L Chloride Level 105 mmol/L Carbon Dioxide Level 26 mmol/L Anion Gap 9.0 mmol/L Blood Urea Nitrogen 47 mg/dl Creatinine 2.60 mg/dl Est Creatinine Clear Calc Drug Dose 21.7 ml/min Estimated GFR () 25.3 Estimated GFR (Non- 21.8 BUN/Creatinine Ratio 18.0 Random Glucose 132 mg/dl Calcium Level 8.1 mg/dl Assessment & Plan Patient is an 82-year-old male with a PMH of systolic CHF (EF 25-30%), nonischemic cardiomyopathy, bradycardia (s/p biventricular AICD placement), persistent A. fib (on Coumadin), CAD (s/p stents), h/o pancreatic cancer (s/p Whipple in 2005), DM II, HTN, COPD and other medical problems listed below who presents as a direct admit from Dr. Morales's office for worsening SOB and weight gain. Acute on chronic systolic CHF: gained about 10lbs from last hospital discharge few days ago On IV lasix 80mg Q8h Strict I&Os, daily weights Discussed with cardiology. Clinically improved Monitor creatine 06/28 clinically improved case discussed with cardiology recommended to d/c lasix Starting on Torsemide 40mg BID Follow up with cardiology in 1 week OK from cardiology standpoint to d/c home Persistent A Fib: rate control Continue amiodarone and metoprolol Continue warfarin Follow up with the coag clinic INR is 2.0 CKD: Baseline Cr ~mid-high 2s creatine on admission 2.7, creatine today 2.6 Nephro on board [facility] Check BMP within 1 week Hypoglycemia in setting of DM II: Low BS on admission HbA1c 6.5 pharmacy on board for glycemic management Recommended to decrease insulin 70/30 to 15 units in am and 9 units pm continue monitor BS Elevated troponin: H/o elevated troponin in setting of ESRD, CHF EKG showed no ischemic changes Asymptomatic Stable COPD: Cont Breo, albuterol inhalers Cont Xopenex nebs PRN Stable CAD (s/p stents in 2005): No chest pain Most recent cath without new obstruction Continue plavix and metoprolol H/o CVA: Cont plavix stable Depression: Continue SSRI monitor for QTC prolongation H/o pancreatic cancer: S/p Whipple in 2006 Continue pancreatic enzyme supplementation stable Disposition: Continue monitor in tele Nephro/palliative/cardio on board DVT Ppx INR 2 Continue Warfarin Code status: DNR Disposition Discharge home today with home health Consultants: Cardio nephro Current Inpatient Medications: Current Inpatient Medications Medications (Trade) Dose Ordered Sig/Quoc Route Start Time Stop Time Status Last Admin Dose Admin Acetaminophen (Tylenol Tab) 650 mg Q4H PRN PO 06/25/17 12:15 07/25/17 12:14 06/28/17 02:12 650 MG Insulin Aspart (novoLOG ASPART) SLIDING SCALE If C... ACHS SC 06/25/17 16:15 07/25/17 16:14 06/28/17 12:03 4 UNITS Glucose (Glucose 40% Gel) 15-30 GRAMS 15 GRAMS... UD PRN PO 06/25/17 12:15 07/25/17 12:14 Glucose (Glucose Chew Tab) 4-8 Tablets 4 Tabl... UD PRN PO 06/25/17 12:15 07/25/17 12:14 Dextrose (Dextrose 50% 50ML Syringe) 25-50ML OF 50% DW IV FOR... UD PRN IV 06/25/17 12:15 07/25/17 12:14 Glucagon (Glucagon Inj) 1 mg UD PRN SQ 06/25/17 12:15 07/25/17 12:14 Miscellaneous Information (Consult Glycemic Management Pharmacy) 1 ea UD PRN N/A 06/25/17 12:47 07/25/17 12:46 Furosemide 80 mg/ Syringe 8 ml @ 4 mls/min Q8H IV 06/25/17 14:00 07/25/17 12:14 06/28/17 07:55 4 MLS/MIN Amiodarone HCl (Cordarone Tab) 200 mg DAILY PO 06/26/17 09:00 07/26/17 08:59 06/28/17 07:56 200 MG Atorvastatin Calcium (Lipitor Tab) 10 mg DAILY PO 06/26/17 09:00 07/26/17 08:59 06/28/17 07:57 10 MG Calcitriol (Rocaltrol Cap) 0.25 mcg MoWeFr@0900 PO 06/26/17 09:00 07/26/17 08:59 06/28/17 07:58 0.25 MCG Cholecalciferol (Vitamin D Tab) 1,000 inter.unit DAILY PO 06/26/17 09:00 07/26/17 08:59 06/28/17 07:59 1,000 INTER.UNIT Docusate Sodium (coLACE CAP) 100 mg BID PRN PO 06/25/17 13:30 07/25/17 13:29 Finasteride (Proscar Tab) 5 mg DAILY PO 06/26/17 09:00 07/26/17 08:59 06/28/17 07:58 5 MG Fluticasone Propionate (Flonase Nasal [place]) 2 sprays DAILY PRN RICHA 06/26/17 09:00 07/26/17 08:59 Levalbuterol (Xopenex Hfa Inhaler) 2 puffs Q4H PRN INH 06/25/17 13:30 07/25/17 13:29 06/28/17 02:10 2 PUFFS Metoprolol Succinate (Toprol Xl Tab) 50 mg DAILY PO 06/26/17 09:00 07/26/17 08:59 06/28/17 07:58 50 MG Amylase/Lipase/ Protease (Pancreaze (Lipase 10,500U) Cap) 1 cap QID PO 06/25/17 17:00 07/25/17 16:59 06/28/17 12:01 1 CAP Senna/Docusate Sodium (Senokot S Tab) 1 tab DAILY PO 06/26/17 09:00 07/26/17 08:59 06/28/17 07:58 1 TAB Tamsulosin HCl (Flomax Cap) 0.4 mg DAILY PO 06/26/17 09:00 07/26/17 08:59 06/28/17 07:56 0.4 MG Miscellaneous Information (Order Awaiting Action) 1 ea QS N/A 06/25/17 16:00 07/25/17 15:59 Oxycodone HCl (Roxicodone Immediate Rel Tab) 10 mg Q6 PRN PO 06/25/17 13:30 07/25/17 13:29 Pantoprazole Sodium (Protonix Tab) 40 mg QAM PO 06/26/17 09:00 07/26/17 08:59 06/28/17 07:58 40 MG Clopidogrel Bisulfate (plAVix TAB) 75 mg DAILY PO 06/26/17 09:00 07/26/17 08:59 06/28/17 07:57 75 MG Sertraline HCl (Zoloft Tab) 50 mg DAILY PO 06/26/17 09:00 07/26/17 08:59 06/28/17 07:59 50 MG Potassium Chloride (Klor-Con M10) 20 meq DAILY PO 06/26/17 09:00 07/26/17 08:59 06/28/17 07:57 20 MEQ Warfarin Sodium (Coumadin Tab) 2 mg DAILY@16 PO 06/27/17 16:00 07/27/17 15:59 06/27/17 15:24 2 MG Insulin Human NPH (novoLIN-N NPH) 10 units QDB SC 06/28/17 07:30 07/28/17 07:29 06/28/17 08:02 10 UNITS Insulin Human NPH (novoLIN-N NPH) 6 units QDD SC 06/28/17 16:45 07/28/17 16:44
--- NOTE | 2017-06-29 18:14 | Discharge Summary ---
Discharge Summary Date of Service Jun 29, 2017. Discharge Summary Admission Date: Jun 25, 2017 at 11:35 Discharge Date: Jun 28, 2017 Discharge Disposition: Home with services Principal Diagnosis: Acute on chronic systolic CHF Secondary Diagnoses/Problems: Persistent A Fib: Hypoglycemia in setting of DM II: CKD Elevated troponin COPD CAD Depression Hx CVA H/o pancreatic cancer Procedures: ABDOMEN COMPLETE (US) HISTORY: Pain abdominal pain. COMPARISON: None. FINDINGS: Pancreas: Not well seen due to overlying bowel content Liver: Uniform and neck region is Gallbladder: Prior cholecystectomy CBD: 5 mm Kidneys: 3 cm mid pole left renal cyst. No evidence for renal hydronephrosis. Spleen: Normal in size. Aorta: Normal in caliber. IVC: Patent. IMPRESSION: No significant abnormality identified within the within the abdomen. Prior Whipple procedure and cholecystectomy. Limited visibility of the pancreas The above report was generated using voice recognition software. It may contain grammatical, syntax or spelling errors. Electronically signed by: Korey Aguero M.D. 06/25/2017 9:43 PM Dictated Date/Time: 06/25/2017 9:41 PM SINGLE VIEW CHEST CLINICAL HISTORY: Congestive heart failure. FINDINGS: An AP, portable, upright chest radiograph is compared to study dated 06/01/2017. The examination is degraded by portable technique and apical lordotic positioning. A 2-lead cardiac AICD is unchanged in position and largely obscures the left upper chest. The heart is markedly enlarged and there is atherosclerotic calcification of the thoracic aorta. The pulmonary vasculature is noncongested. Linear atelectasis versus scarring is again seen in the right midlung. Bibasilar atelectasis is observed. No airspace consolidation or large pleural effusion is identified. No pneumothorax is seen. The skeletal structures are osteopenic. The bony thorax is grossly intact. IMPRESSION: 1. Cardiomegaly and AICD. There is no radiographic evidence of congestive failure. 2. No airspace consolidation or pleural effusion is identified. Electronically signed by: Denny Kang M.D. 06/25/2017 12:41 PM Dictated Date/Time: 06/25/2017 12:40 PM Consultations: Cardio nephro Medication Reconciliation New Medications: Torsemide (Torsemide) 20 Mg Tab 40 MG PO BID for 30 Days Changed Medications: Potassium Chloride (K-Tabs) 10 Meq Tabcr 20 MEQ PO DAILY for 30 Days, #60 1 Refill (Changed from: 10 MEQ; 30) Continued Medications: Albuterol Hfa (Ventolin Hfa) 200 Puffs/09143 Mcg Aers 2-4 PUFFS INH Q6H PRN for Shortness of Breath, #1 INHALER Amiodarone HCl (Amiodarone HCl) 200 Mg Tab 200 MG PO DAILY, #30 TAB 1 Refill Ascorbic Acid (Ascorbic Acid) 500 Mg Tab 1000 MG PO DAILY, TAB Atorvastatin (Lipitor) 10 Mg Tab 10 MG PO DAILY, TAB Calcitriol (Rocaltrol Cap) 0.25 Mcg Cap 0.25 MCG PO MWF, CAP Cholecalciferol (Vitamin D) 1,000 Unit Tab 1000 UNITS PO DAILY Clopidogrel Bisulfate (Plavix) 75 Mg Tab 75 MG PO DAILY, TAB Docusate Sodium (Colace) 100 Mg Cap 1 CAP PO BID PRN for Constipation for 15 Days, #30 CAP Esomeprazole Magnesium (Esomeprazole Magnesium) 40 Mg Cap 1 CAP PO DAILY Finasteride (Proscar) 5 Mg Tab 5 MG PO DAILY Fluticasone Furoate-Vilanterol (Breo Ellipta) 1 Inh Inh 1 PUFF INH DAILY Fluticasone Propionate (Nasal) (Flonase Allergy Relief) 50 Mcg/Act Spr 2 SPRAY RICHA DAILY Insulin Aspart 70/30 (Novolog Mix 70/30) Susp 15 UNIT SC am, BTL Insulin Aspart 70/30 (Novolog Mix 70/30) Susp 9 UNITS SC PM, BTL Levalbuterol Tartrate (Levalbuterol Tartrate Hfa) 45 Mcg/Act Aer 2 PUFFS INH Q4H PRN for SOB, cough, wheezing Metoprolol Succ (Toprol Xl) (Toprol-Xl) 50 Mg Tabcr 50 MG PO DAILY Multiple Vitamins W/ Minerals (Centrum Silver Adult 50+) 1 Tab Tab 1 TAB PO DAILY Oxycodone Hcl (Oxycodone Hcl) 10 Mg Tab 1 TAB PO Q6 PRN for Pain for 30 Days, #120 TAB Pancrelipase (Lipase-Protease- (Pancreaze) 1 Cap Cap 1 CAP PO QID Sennosides-Docusate Sodium ([place]-S) 1 Tab Tab 1 TAB PO DAILY Sertraline HCl (Sertraline HCl) 50 Mg Tab 50 MG PO DAILY Tamsulosin Hcl (Flomax) 0.4 Mg Cap 0.4 MG PO DAILY, CAP Warfarin Sod (Coumadin) 3 Mg Tab 0.5 TAB PO TuTh@1600 Warfarin Sod (Coumadin) 3 Mg Tab 1 TAB PO [id number]@1600 Discontinued Medications: Furosemide (Lasix) 80 Mg Tab 80 MG PO BID for 30 Days, #60 TAB 1 Refill Admission Information HPI (per Admitting provider): Patient is an 82-year-old male with a PMH of systolic CHF (EF 25-30%), nonischemic cardiomyopathy, bradycardia (s/p biventricular AICD placement), persistent A. fib (on Coumadin), CAD (s/p stents), h/o pancreatic cancer (s/p Whipple in 2005), DM II, HTN, COPD and other medical problems listed below who presents as a direct admit from Dr. Morales's office for worsening SOB and weight gain. Patient was recently admitted from 05/31-06/05 for acute on chronic systolic CHF and JOSUÉ on CKD. Echo performed during admission showed a decreased in estimated EF from 30-35% (August 2016) to 25-30%. Received IV Lasix 80 mg Q8 and was followed by cardiology and nephrology. Returned to cardiology clinic yesterday for hospital follow-up and was found to be short of breath with ~10 lb weight gain. Received IV Lasix 80 mg x1 and was told to return to clinic today. Was found to have gained an additional 2 lbs and creatinine function declined from 2.6 to 2.8. Was sent to [facility] for further treatment and evaluation. Patient endorses SOB with any type of exertion, even walking to and from the restroom. Endorses orthopnea and weight gain primarily in abdomen. Diffuse abdominal discomfort 2/2 fullness today. Decreased appetite over the last 2 weeks with intermittent episodes of symptomatic hypoglycemia (diaphoretic, shaking). Was found to be hypoglycemic in cardio clinic the previous 2 days with BSG in high 30s-40s. Receives 70/30 insulin BID at home. Denies fever, chills, lightheadedness, confusion, near-syncope, visual changes, chest pain, palpitations, nausea or vomiting. LE swelling (chronic). Physical Exam (per Admitting): General Appearance: + mild distress (diaphoretic, shaking from hypoglycemia. Resolved after dextrose) Head: normocephalic, atraumatic Eyes: normal inspection, PERRL, sclerae normal ENT: normal ENT inspection, hearing grossly normal, pharynx normal Neck: supple, thyroid normal, trachea midline Respiratory/Chest: chest non-tender, lungs clear, normal breath sounds, no respiratory distress, no accessory muscle use, + pertinent finding (Saturating well on NC O2) Cardiovascular: regular rate, rhythm, no murmur, normal peripheral pulses, + pertinent finding (1-2+ pitting edema in BLE ) Abdomen/GI: non tender (some distension ), soft, no organomegaly Back: normal inspection Extremities/Musculoskelatal: normal inspection, no calf tenderness, no pedal edema Neurologic/Psych: no motor/sensory deficits, alert, normal mood/affect, oriented x 3 Skin: normal color, warm/dry, no rash Hospital Course Patient is an 82-year-old male with a PMH of systolic CHF (EF 25-30%), nonischemic cardiomyopathy, bradycardia (s/p biventricular AICD placement), persistent A. fib (on Coumadin), CAD (s/p stents), h/o pancreatic cancer (s/p Whipple in 2005), DM II, HTN, COPD and other medical problems listed below who presents as a direct admit from Dr. Morales's office for worsening SOB and weight gain. Acute on chronic systolic CHF: gained about 10lbs from last hospital discharge few days ago On IV lasix 80mg Q8h Strict I&Os, daily weights Discussed with cardiology. Clinically improved Monitor creatine 06/28 clinically improved case discussed with cardiology recommended to d/c lasix Starting on Torsemide 40mg BID Follow up with cardiology in 1 week OK from cardiology standpoint to d/c home Persistent A Fib: rate control Continue amiodarone and metoprolol Continue warfarin Follow up with the coag clinic INR is 2.0 CKD: Baseline Cr ~mid-high 2s creatine on admission 2.7, creatine today 2.6 Nephro on board recommended to continue IV lasix at the cuurent dose Check BMP within 1 week Hypoglycemia in setting of DM II: Low BS on admission HbA1c 6.5 pharmacy on board for glycemic management Recommended to decrease insulin 70/30 to 15 units in am and 9 units pm continue monitor BS Elevated troponin: H/o elevated troponin in setting of ESRD, CHF EKG showed no ischemic changes Asymptomatic Stable COPD: Cont Breo, albuterol inhalers Cont Xopenex nebs PRN Stable CAD (s/p stents in 2005): No chest pain Most recent cath without new obstruction Continue plavix and metoprolol H/o CVA: Cont plavix stable Depression: Continue SSRI monitor for QTC prolongation H/o pancreatic cancer: S/p Whipple in 2005 Continue pancreatic enzyme supplementation stable Disposition: Continue monitor in tele Nephro/palliative/cardio on board DVT Ppx INR 2 Continue Warfarin Code status: DNR Disposition Discharge home today with home health Total time spent on discharge = 40 minutes This includes examination of the patient, discharge planning, medication reconciliation, and communication with other providers. Discharge Instructions Discharge Instructions Date of Service Jun 28, 2017. Admission Reason for Admission: Acute On Chronic Systolic Heart Failure Discharge Discharge Diagnosis / Problem: Acute on chronic systolic CHF, Hypoglycemia, Diabetes Discharge Goals Goal(s): Decrease discomfort, Improve function, Improve disease control Activity Recommendations Activity Limitations: resume your previous activity (as tolerated) . Instructions / Follow-Up Instructions / Follow-Up Follow up with your primary care provider Dr. Cuello on 07/02 @ 1:15 PM Follow up with the heart failure clinic next week ( The clinic will contact you with the appointment) Follow up with nephrology Check BMP within 1 week Follow up with the Coumadin clinic (check Coumadin on Saturday) Monitor Blood sugar and your physician will titrate your insulin if needed Follow up a low salt diet and limited fluid intake Inge major case detective will arrange to place a scale in house for close monitoring. Fall precaution Medication changes Lasix discontinued Potassium increased to 20mg daily insulin increase to 15 units in the morning and 9 units at night Starting on Torsemide 40mg twice a day. Next dose tonight Current Hospital Diet Patient's current hospital diet: Low Sodium Diet (2gm Na), Diabetes Type 2 Diet Discharge Diet Recommended Diet: Low Sodium Diet (2gm Na), Diabetes Type 2 Diet Pending Studies Studies pending at discharge: no Laboratory Results Hemoglobin A1c Test 06/26/17 08:00 Range/Units Estimated Average Glucose 140 mg/dl Hemoglobin A1c 6.5 H 4.5-5.6 % Lipid Panel Test 06/26/17 08:00 Range/Units Triglycerides Level 94 0-150 mg/dl Cholesterol Level 85 0-200 mg/dl HDL Cholesterol 43 mg/dl Cholesterol/HDL Ratio 2.0 LDL Cholesterol, Calculated 23 mg/dl Medical Emergencies . Who to Call and When: Medical Emergencies: If at any time you feel your situation is an emergency, please call 911 immediately. . Non-Emergent Contact Non-Emergency issues call your: Primary Care Provider Call Non-Emergent contact if: you have any medication questions . . "Provider Documentation" section prepared by Omar Terrell. . Signed: Signed: The status of this report is Draft * If report status is Draft, the document has not been finalized by the responsible provider. Additional Copies To Deana Cuello D.O.
== END 2017-06-28 14:37 | disposition home or self-care (01) ==
LOC: UNDOADMOB 11:13 → C.2T 11:13 → INTOOBSV 11:13 → C.2T 11:35
PROVIDERS: ADMIT Internal Medicine; ATTEND Internal Medicine
DX: I50.23 Acute on chronic systolic (congestive) heart failure (principal); I48.1 Persistent atrial fibrillation; Z51.5 Encounter for palliative care; E11.649 Type 2 diabetes mellitus with hypoglycemia without coma; N18.9 Chronic kidney disease, unspecified; R79.89 Other specified abnormal findings of blood chemistry; I25.10 Atherosclerotic heart disease of native coronary artery without angina pectoris; J44.9 Chronic obstructive pulmonary disease, unspecified; F32.9 Major depressive disorder, single episode, unspecified; I42.9 Cardiomyopathy, unspecified; Z86.73 Personal history of transient ischemic attack (TIA), and cerebral infarction without residual deficits; Z85.07 Personal history of malignant neoplasm of pancreas; Z79.4 Long term (current) use of insulin; Z79.01 Long term (current) use of anticoagulants; Z95.810 Presence of automatic (implantable) cardiac defibrillator; Z96.649 Presence of unspecified artificial hip joint; Z66 Do not resuscitate; Z87.891 Personal history of nicotine dependence; Z87.440 Personal history of urinary (tract) infections; Z83.3 Family history of diabetes mellitus; Z82.49 Family history of ischemic heart disease and other diseases of the circulatory system; Z84.1 Family history of disorders of kidney and ureter

== ENCOUNTER 2018-05-16 09:21 | Inpatient (IN) ==
[2018-05-16] MEDS ORDERED: ACETAMINOPHEN 1,000 MG/100 ML VIAL IV STA (09:41)
[2018-05-16] MEDS ORDERED: SODIUM CHLORIDE 0.9% 500 ML IV SCH (09:45)
[2018-05-16 10:03] LABS: Basophils # (auto) 0.03 K/uL (0-0.2); Basophils % (auto) 0.4 %; Eosinophils # (auto) 0.21 K/uL (0-0.5); Hematocrit (blood only) 38.2 % (42-52); Hemoglobin 11.9 g/dL (14.0-18.0); Immature Granulocytes # (auto) 0.03 K/uL (0.00-0.02); Immature Granulocytes % (auto) 0.4 %; Lymphocytes # (auto) 1.25 K/uL (1.2-3.4); Lymphocytes % (auto) 17.9 %; Mean Corpuscular Hgb Conc 31.2 g/dL (32-36); Mean Corpuscular Volume 98.2 fL (80-100); Mean Platelet Volume 10.5 fL (7.4-10.4); Monocytes # (auto) 0.69 K/uL (0.11-0.59); Monocytes % (auto) 9.9 %; Neutrophils # (auto) 4.77 K/uL (1.4-6.5); Neutrophils % (auto) 68.4 %; Platelet Count 142 K/uL (130-400); RDW Coefficient of Variation 17.5 % (11.5-14.5); RDW Standard Deviation 61.9 fL (36.4-46.3); Red Blood Count 3.89 M/uL (4.7-6.1); White Blood Count 6.98 K/uL (4.8-10.8)
--- NOTE | 2018-05-16 10:05 | Emergency Department Note ---
Entered by Ed Arango acting as a scribe for Denny Muhammad MD History of Present Illness General Chief complaint: Leg Weakness, Bilateral Stated complaint: WEAKNESS, FALLS, CONFUSION Time Seen by Provider: 05/16/18 09:35 Source: patient Limitations: no limitations History of Present Illness Provider complaint: Falls/Left hip pain. Onset (ago): day(s) Location: lower extremity and left Pain Consistency: + constant (hip pain) and + other (2 falls) Maximum Pain Intensity: 10 Quality: + other (hip pain from fall) Associated symptoms: + denies other symptoms (no diarrhea), + headaches and + shortness of breath; no nausea/vomiting Treatments prior to arrival: none The patient is an 83 year old male who presents to the Emergency Room with complaints of two falling episodes over the past couple of days. The patient states that he fell a couple of days ago, and again yesterday. Yesterday he notes that he was attempting to move the urinal that was attached to his bed when he went down. He did hit his head on the recliner on his way to the ground. The patient is now complaining of pain to the left hip, as well as a skin tear to his right arm. He does have a headache and neck pain as well. He adds that he may have injured his neck on the fall. The patient denies any vomiting or diarrhea, but notes that he has not had much of an appetite lately. He has been keeping up on his fluids per his at bedside. The patient's adds that he has been having hallucinations over the past couple of days as well. The patient describes the hallucinations as he thinks he is holding objects in his left hand, but then there is nothing there when he looks. He continues to mention that he has noticed feeling unusually short of breath when he goes about his normal morning routine. He is anticoagulated on both Plavix and Coumadin. The patient confirms he has had a tetanus shot within the past 10 years. Home Medications Home Medications Medication Instructions Recorded Confirmed Type albuterol sulfate [ProAir HFA] 2 puff INHALATION QID PRN 05/16/18 05/16/18 History amiodarone 200 mg PO DAILY 05/16/18 05/16/18 History ascorbic acid (vitamin C) [Vitamin 1,000 mg PO DAILY 05/16/18 05/16/18 History C] calcitriol 0.25 mg PO 3XWK 05/16/18 05/16/18 History cholecalciferol (vitamin D3) 1,000 units PO DAILY 05/16/18 05/16/18 History clopidogrel [Plavix] 75 mg PO DIRECTED 05/16/18 05/16/18 History docusate sodium [Stool Softener] 100 mg PO BID 05/16/18 05/16/18 History esomeprazole magnesium 40 mg PO DAILY 05/16/18 05/16/18 History finasteride 5 mg PO DAILY 05/16/18 05/16/18 History fluticasone 2 spray INTRANASAL DAILY 05/16/18 05/16/18 History fluticasone-vilanterol [Breo 1 puff INHALATION DAILY 05/16/18 05/16/18 History Ellipta] insulin asp prt-insulin aspart 9 unit SUBCUT QPM 05/16/18 05/16/18 History [Novolog Mix 70-30 U-100 Insuln] insulin asp prt-insulin aspart 15 unit SUBCUT QAM 05/16/18 05/16/18 History [Novolog Mix 70-30 U-100 Insuln] levalbuterol tartrate 2 puff INHALATION Q4 PRN 05/16/18 05/16/18 History [id number] [Pancreaze] 1 cap PO QID 05/16/18 05/16/18 History metoprolol succinate 50 mg PO BID 05/16/18 05/16/18 History potassium chloride 10 meq PO DAILY 05/16/18 05/16/18 History ranitidine HCl 150 mg PO BID 05/16/18 05/16/18 History sertraline 100 mg PO DAILY 05/16/18 05/16/18 History tamsulosin 0.4 mg PO DAILY 05/16/18 05/16/18 History torsemide 20 mg PO QPM 05/16/18 05/16/18 History torsemide 40 mg PO QAM 05/16/18 05/16/18 History warfarin 1.5 mg PO SUTUTHSA@1600 05/16/18 05/16/18 History warfarin 3 mg PO MOWEFR@1600 05/16/18 05/16/18 History Allergies Allergy/AdvReac Type Severity Reaction Status Date / Time lisinopril Allergy Intermediate RASH Verified 05/16/18 09:48 spironolactone Allergy Unknown unkn Verified 05/16/18 09:48 zolpidem AdvReac Mild HALLUCINATI Verified 05/16/18 09:48 ONS Past Med/Surg History Medical History Pancreatic cancer (Chronic) "[facility] 02/04 s/p neoadjuvant chemoradiotherapy 2005 Jason Urena MD " CKD (chronic kidney disease), stage III (Chronic) HLD (hyperlipidemia) (Chronic) HTN (hypertension) (Chronic) CAD (coronary artery disease) (Chronic) DM2 (diabetes mellitus, type 2) (Chronic) COPD (chronic obstructive pulmonary disease) (Chronic) Depression (Chronic) BPH (benign prostatic hyperplasia) (Chronic) GERD (gastroesophageal reflux disease) (Chronic) CVA (cerebral vascular accident) (Chronic) Current use of snf anticoagulation (Chronic) Surgical History H/O percutaneous transluminal coronary angioplasty (Resolved) Stented coronary artery (Chronic) History of hip replacement (Chronic) History of cardiac cath (Chronic) "with stent placement" H/O hernia repair (Chronic) S/P cholecystectomy (Chronic) S/P hip replacement (Chronic) H/O cervical spine surgery (Chronic) Family History Other HTN (hypertension) Heart disease Kidney disease Social History marital status: Life Partner Current Living Situation: Significant Other Current Living Situation Comment: Patient lives with his girlfriend. current occupational status: retired Other Information That Helps Us Care for You: No Feels Safe at Home: Yes Safety Concerns: Feels Safe At This Time Smoking Status: Former smoker Do You Dip or Chew Tobacco: No Smoking End Date: 40 years ago Second Hand Exposure: No Tobacco Cessation Education Requested by Patient: No Hx Alcohol Use: No Hx Substance Use: No Beliefs That Will Affect Care: None Communication Ability: Effective Review of Systems See HPI for pertinent positives & negatives. and A total of 10 systems reviewed and were otherwise negative Physical Exam Vital Signs Vital Signs - 24 hr 05/16/18 09:24 05/16/18 09:52 05/16/18 10:21 Temperature 36.6 C Temperature Source Oral Sepsis Recent Fever Within 48 Hours No Sepsis Action Taken by Nursing No Action Required Pulse Rate 78 Pulse Rate [Left Finger] 71 Pulse Rhythm [Left Finger] Pulse Strength [Left Finger] Respiratory Rate 20 18 Respiratory Effort / Characteristics Non-Labored Spontaneous Respiratory Depth Respiratory Pattern Blood Pressure 100/63 Blood Pressure [Right Arm] 101/58 L Blood Pressure Mean 75 Blood Pressure Mean [Right Arm] 72 Blood Pressure Position [Right Arm] Lying Pulse Oximetry 97 96 99 Pulse Oximetry [Middle Finger] Oxygen Delivery Method Room Air Room Air Room Air Oxygen Delivery Method [Middle Finger] 05/16/18 11:51 05/16/18 13:00 05/16/18 13:46 Temperature 36.5 C 36.5 C Temperature Source Axillary Axillary Sepsis Recent Fever Within 48 Hours Sepsis Action Taken by Nursing Pulse Rate 70 Pulse Rate [Left Finger] 70 94 H 72 Pulse Rhythm [Left Finger] Regular Pulse Strength [Left Finger] Normal Respiratory Rate 18 18 20 Respiratory Effort / Characteristics Non-Labored Spontaneous Non-Labored Spontaneous Non-Labored Spontaneous Respiratory Depth Normal Normal Normal Respiratory Pattern Regular Regular Regular Blood Pressure Blood Pressure [Right Arm] 112/68 108/67 108/67 Blood Pressure Mean Blood Pressure Mean [Right Arm] 82 80 80 Blood Pressure Position [Right Arm] Lying Pulse Oximetry 98 98 Pulse Oximetry [Middle Finger] Oxygen Delivery Method Room Air Room Air Room Air Oxygen Delivery Method [Middle Finger] 05/16/18 13:52 05/16/18 15:46 Temperature 36.7 C Temperature Source Oral Sepsis Recent Fever Within 48 Hours Sepsis Action Taken by Nursing Pulse Rate Pulse Rate [Left Finger] 70 Pulse Rhythm [Left Finger] Pulse Strength [Left Finger] Respiratory Rate 18 Respiratory Effort / Characteristics Respiratory Depth Respiratory Pattern Blood Pressure Blood Pressure [Right Arm] 100/62 Blood Pressure Mean Blood Pressure Mean [Right Arm] 74 Blood Pressure Position [Right Arm] Lying Pulse Oximetry 98 Pulse Oximetry [Middle Finger] 93 Oxygen Delivery Method Room Air Oxygen Delivery Method [Middle Finger] Room Air GENERAL: Patient is in no acute distress. HEENT: No acute trauma, normocephalic atraumatic, mucous membranes DRY, no nasal congestion, no scleral icterus. No scalp hematomas NECK: No stridor, no adenopathy, no meningismus, trachea is midline. The c- spine is diffusely tender, without stepoff. LUNGS: Clear to auscultation bilaterally, no wheeze, no rhonchi, breath sounds equal. HEART: Without murmurs gallops or rubs, regular rate and rhythm. ABDOMEN: Soft, nontender, bowel sounds positive, no hernias, no peritonitis. EXTREMITIES: No edema present, no erythema. There is a skin tear with contusion to the right medial elbow. Full ROM of the elbow joint without pain. NEUROLOGIC: Oriented x 3, no acute motor or sensory deficits, no focal weakness. No cerebellar deficits. SKIN: No rash, no jaundice, no diaphoresis. Course 0936: Past medical records reviewed. The patient was evaluated in room A2, and a complete history and physical examination were performed. 1043: I paged the [facility] service for admission. 1045: I checked on the patient. The son of the woman who lives with the patient is now at bedside. He notes that he checked the patient's house today. There are prescriptions from January that have not been filled yet. He does not believe that the patient can care for himself, and he does not believe that his mother can help anymore. 1047: [facility] She will evaluate the patient for further management. Consultations Consultation #1: [id number]: I reviewed the patient's [facility] She will evaluate the patient for further management. Administered Medications Acetaminophen (Tylenol) 1,000 mg PO Q8 MARCIAL Stop: 06/15/18 14:59 Last Admin: 05/16/18 14:54 Dose: 1,000 mg Lipase/Protease/Amylase (Pancreaze 83528 Unit) 1 cap PO QIDM MARCIAL Stop: 06/15/18 16:59 Last Admin: 05/16/18 17:05 Dose: 1 cap Insulin Aspart (Novolog Flexpen) 0 units SC ACHS MARCIAL Stop: 06/15/18 16:29 Last Admin: 05/16/18 16:58 Dose: 6 units Discontinued Medications Acetaminophen (Ofirmev) 1,000 mg in 100 mls @ 400 mls/hr IV NOW STA Stop: 05/16/18 09:55 Last Infusion: 05/16/18 10:18 Dose: 0 mls/hr Admin: 05/16/18 10:02 Dose: 400 mls/hr Sodium Chloride (Nss) 500 mls @ 999 mls/hr IV .Q31M MARCIAL Stop: 05/16/18 10:15 Last Infusion: 05/16/18 10:29 Dose: 0 mls/hr Admin: 05/16/18 10:02 Dose: 999 mls/hr Medical Decision Making Differential Diagnosis Differential Diagnosis includes: Dehydration, anemia, electrolyte or metabolic abnormality, renal or liver failure, UTI, pneumonia, bacteremia, intracranial bleed, c-spine injury, left hip fracture. Medical Records Attestation: I reviewed the patient's medical records. Home Medications Current Medication List: was personally reviewed by me Laboratory Data Attestation: I reviewed the patient's lab results. Result diagrams: 05/16/18 09:52 05/16/18 09:52 Lab Results 05/16/18 05/16/18 05/16/18 Range/Units 09:52 09:52 09:52 WBC 6.98 (4.8-10.8) K/uL RBC 3.89 L (4.7-6.1) M/uL Hgb 11.9 L (14.0-18.0) g/dL Hct 38.2 L (42-52) % MCV 98.2 (80-100) fL MCH 30.6 (25-34) pg MCHC 31.2 L (32-36) g/dL RDW Std Deviation 61.9 H (36.4-46.3) fL RDW Coeff of Kamari 17.5 H (11.5-14.5) % Plt Count 142 (130-400) K/uL MPV 10.5 H (7.4-10.4) fL Immature Gran % (Auto) 0.4 % Neut % (Auto) 68.4 % Lymph % (Auto) 17.9 % Bay % (Auto) 9.9 % Eos % (Auto) 3.0 % Baso % (Auto) 0.4 % Immature Gran # (Auto) 0.03 H (0.00-0.02) K/uL Neut # (Auto) 4.77 (1.4-6.5) K/uL Lymph # (Auto) 1.25 (1.2-3.4) K/uL Bay # (Auto) 0.69 H (0.11-0.59) K/uL Eos # (Auto) 0.21 (0-0.5) K/uL Baso # (Auto) 0.03 (0-0.2) K/uL PT 34.5 H (9.0-12.0) Seconds INR 3.7 H (0.9-1.1) APTT 40.3 H (21.0-31.0) Seconds PTT Ratio 1.5 Sodium (136-145) mmol/L Potassium (3.5-5.1) mmol/L Chloride (98-107) mmol/L Carbon Dioxide (21-32) mmol/L Anion Gap (3-11) BUN (7-18) mg/dl Creatinine (0.6-1.4) mg/dl Est Cr Clr Drug Dosing Est GFR ( Amer) Est GFR (Non-Af Amer) BUN/Creatinine Ratio (10-20) Glucose (70-99) mg/dl POC Glucose (70-99) Calcium (8.5-10.1) mg/dl Magnesium (1.8-2.4) mg/dl Total Bilirubin (0.2-1) mg/dl AST (15-37) U/L ALT (12-78) U/L Alkaline Phosphatase (45-117) U/L Ammonia 25.0 (11-32) umol/L Troponin I (0-0.045) ng/ml Total Protein (6.4-8.2) gm/dl Albumin (3.4-5.0) gm/dl Globulin (2.5-4.0) gm/dl Albumin/Globulin Ratio (0.9-2) TSH (0.300-4.500) uIu/ml Urine Color Urine Appearance (Clear) Urine pH (4.5-7.5) Ur Specific [place] (1.000-1.030) Urine Protein (Negative) Urine Glucose (UA) (Negative) Urine Ketones (Negative) Urine Blood (Negative) Urine Nitrite (Negative) Urine Bilirubin (Negative) Urine Urobilinogen (Negative) Ur Leukocyte Esterase (Negative) 05/16/18 05/16/18 05/16/18 Range/Units 09:52 10:00 16:24 WBC (4.8-10.8) K/uL RBC (4.7-6.1) M/uL Hgb (14.0-18.0) g/dL Hct (42-52) % MCV (80-100) fL MCH (25-34) pg MCHC (32-36) g/dL RDW Std Deviation (36.4-46.3) fL RDW Coeff of Kamari (11.5-14.5) % Plt Count (130-400) K/uL MPV (7.4-10.4) fL Immature Gran % (Auto) % Neut % (Auto) % Lymph % (Auto) % Bay % (Auto) % Eos % (Auto) % Baso % (Auto) % Immature Gran # (Auto) (0.00-0.02) K/uL Neut # (Auto) (1.4-6.5) K/uL Lymph # (Auto) (1.2-3.4) K/uL Bay # (Auto) (0.11-0.59) K/uL Eos # (Auto) (0-0.5) K/uL Baso # (Auto) (0-0.2) K/uL PT (9.0-12.0) Seconds INR (0.9-1.1) APTT (21.0-31.0) Seconds PTT Ratio Sodium 137 (136-145) mmol/L Potassium 3.7 (3.5-5.1) mmol/L Chloride 102 (98-107) mmol/L Carbon Dioxide 27 (21-32) mmol/L Anion Gap 8.0 (3-11) BUN 34 H (7-18) mg/dl Creatinine 2.59 H (0.6-1.4) mg/dl Est Cr Clr Drug Dosing Not Reportable Est GFR ( Amer) 25.2 Est GFR (Non-Af Amer) 21.8 BUN/Creatinine Ratio 13.1 (10-20) Glucose 187 H (70-99) mg/dl POC Glucose 153 H (70-99) Calcium 8.2 L (8.5-10.1) mg/dl Magnesium 2.4 (1.8-2.4) mg/dl Total Bilirubin 0.4 (0.2-1) mg/dl AST 11 L (15-37) U/L ALT 17 (12-78) U/L Alkaline Phosphatase 108 (45-117) U/L Ammonia (11-32) umol/L Troponin I 0.209 H* (0-0.045) ng/ml Total Protein 6.9 (6.4-8.2) gm/dl Albumin 2.9 L (3.4-5.0) gm/dl Globulin 4.0 (2.5-4.0) gm/dl Albumin/Globulin Ratio 0.7 L (0.9-2) TSH 1.940 (0.300-4.500) uIu/ml Urine Color Yellow Urine Appearance Clear (Clear) Urine pH 5.0 (4.5-7.5) Ur Specific [place] 1.015 (1.000-1.030) Urine Protein Negative (Negative) Urine Glucose (UA) Negative (Negative) Urine Ketones Negative (Negative) Urine Blood Negative (Negative) Urine Nitrite Negative (Negative) Urine Bilirubin Negative (Negative) Urine Urobilinogen Negative (Negative) Ur Leukocyte Esterase Negative (Negative) Imaging Data Radiologist's Impression: Radiology results as stated below per my review and the radiologist's interpretation: CT OF THE HEAD WITHOUT CONTRAST CLINICAL HISTORY: fall, confusion COMPARISON STUDY: Head CT September 20, 2017 TECHNIQUE: Helical axial images of the head were obtained without IV contrast. Automated exposure control was utilized for the study. A dose lowering technique was utilized adhering to the principles of ALARA. FINDINGS: No acute intracranial hemorrhage, midline shift or mass effect is present. Ventricular system is stable. The basilar cisterns are patent. There are no extra-axial collections. Exam is mildly, must by artifact. An old right frontoparietal infarct is noted. This is unchanged. Left frontal small hypodensity is also unchanged. This represents a small old infarct. The appearance of the brain is unchanged. There is no calvarial fracture. Visualized portions of the sinuses and mastoid air cells are clear. IMPRESSION: 1. No acute intracranial findings. No change since previous exam. 2. No calvarial fracture. Electronically signed by: Torsten Dorsey M.D. 05/16/2018 10:25 AM XR chest 1V portable CLINICAL HISTORY: weakness COMPARISON STUDY: Chest radiograph September 21, 2017. FINDINGS: A left subclavian biventricular pacer/AICD is in place. There is no pneumothorax. Lung volumes are diminished. There is no evidence for pulmonary edema. Cardiomegaly is unchanged. There may be a trace right pleural effusion. IMPRESSION: 1. Trace right pleural effusion. 2. Cardiomegaly without evidence for pulmonary edema. Electronically signed by: Torsten Dorsey M.D. 05/16/2018 10:28 AM XR hip LT 2-3V w pelvis CLINICAL HISTORY: fall, pain trauma. Pain. COMPARISON: 09/21/2017 DISCUSSION: Total right hip arthroplasty. Moderate degenerative change throughout all major bony structures. No evidence for fracture or dislocation. No evidence for acetabular protrusion. There is no evidence for soft tissue swelling. IMPRESSION: Degenerative and postoperative change. No acute process. The above report was generated using voice recognition software. It may contain grammatical, syntax or spelling errors. Electronically signed by: Korey Aguero M.D. 05/16/2018 10:[address] cervical spine wo con CT DOSE: 1110.48 mGy.cm HISTORY: Trauma fall, pain TECHNIQUE: Multiaxial CT images of the cervical spine were performed and reformatted in the sagittal and coronal plane without the use of contrast. A dose lowering technique was utilized adhering to the principles of ALARA. COMPARISON: 11/20/2017 FINDINGS: Considerable degenerative change throughout. Findings of postoperative laminectomy and fusion. No acute bony abnormality. No evidence for compression deformity. IMPRESSION: No fractures within the cervical spine. Degenerative and postoperative change The above report was generated using voice recognition software. It may contain grammatical, syntax or spelling errors. Electronically signed by: Korey Aguero M.D. 05/16/2018 10:36 AM ECG Data Attestation: I personally reviewed and interpreted this ECG as follows: Indication: weakness and other (Falls) Rate (beats per minute): 74 Rhythm: other (Ventricular paced) Findings: no PVC, no ST depression and no ST elevation Blood Pressure Blood Pressure Findings: Normal blood pressure MDM Narrative There is no leukocytosis. The patient is anemic but this appears baseline. There is renal insufficiency, also baseline looking back at previous testing. INR is elevated at 3.7, this is consistent with his Coumadin use. There was no hepatitis. Ammonia level was not elevated. The patient appeared to be in a euthyroid state. EKG showed a functioning ventricular pacemaker. Cardiac enzyme testing x1 does show some elevation, this has been documented in the past as well. Chest film did not show pneumonia or CHF. Brain CT shows no acute bleed or mass-effect. C-spine CT shows no acute fracture. Pelvis and left hip films do not show evidence for pelvic or hip fracture. Urinalysis does not show evidence for infection. The patient received IV Tylenol for pain, IV saline for hydration. The patient presents with confusion, a borderline lower blood pressure, frequent falls. He did seem dehydrated clinically. No acute traumatic findings found by workup. No source for infection by initial ED workup. The patient deserves a hospital stay. He is falling, he is weak. He has a change in mental status. Further workup/care is required. I spoke to the patient and case management. The on-call hospitalist was counseled. Of note, there is concern that the patient is not receiving his proper medications at home. He may require placement at a long-term care facility after this hospital stay. Impression & Plan Confusion, Dehydration, Frequent falls, Hip pain, left, Skin tear of right upper extremity, Elevated troponin Discharge Plan Visit Data *Final* Discharge Date/Time: 05/16/18 12:58 Chief Complaint: Leg Weakness, Bilateral Stated Complaint: WEAKNESS, FALLS, CONFUSION ED Provider: Denny Muhammad Discharge Problem: Confusion, Dehydration, Frequent falls, Hip pain, left, Skin tear of right upper extremity, Elevated troponin Patient Disposition: Admitted As Inpatient Discharge Instructions Interventions: ED Discharge Assessment Last Done: 05/16/18 12:58 The aleahe's documentation has been prepared under my direction and personally reviewed by me in its entirety. I confirm that the note above accurately reflects all work, treatment, procedures, and medical decision making performed by me.
[2018-05-16 10:12] LABS: Appearance Urine Clear (Clear); Bilirubin Urine Negative (Negative); Color Urine Yellow; Glucose Urine UA Negative (Negative); Ketones Urine Negative (Negative); Leukocyte Esterase Urine Negative (Negative); Nitrite Urine Negative (Negative); Protein Urine Negative (Negative); Specific Gravity Urine 1.015 (1.000-1.030); Urobilinogen Urine Negative (Negative)
[2018-05-16 10:16] LABS: Partial Thromboplastin Ratio 1.5; Partial Thromboplastin Time 40.3 Seconds (21.0-31.0); Prothrombin Time 34.5 Seconds (9.0-12.0)
[2018-05-16 10:21] LABS: Alanine Aminotransferase 17 U/L (12-78); Albumin Level 2.9 gm/dl (3.4-5.0); Aspartate Aminotransferase 11 U/L (15-37); BUN Creatinine Ratio 13.1 (10-20); Blood Urea Nitrogen 34 mg/dl (7-18); Calcium 8.2 mg/dl (8.5-10.1); Carbon Dioxide 27 mmol/L (21-32); Chloride 102 mmol/L (98-107); Est GFR (African American) 25.2; Est GFR (Non-African American) 21.8; Glucose 187 mg/dl (70-99); Magnesium 2.4 mg/dl (1.8-2.4); Potassium 3.7 mmol/L (3.5-5.1); Sodium 137 mmol/L (136-145)
[2018-05-16 10:23] LABS: INR 3.7 (0.9-1.1)
--- NOTE | 2018-05-16 10:27 | CT Scan Report ---
CT OF THE HEAD WITHOUT CONTRAST CLINICAL HISTORY: fall, confusion COMPARISON STUDY: Head CT September 20, 2017 TECHNIQUE: Helical axial images of the head were obtained without IV contrast. Automated exposure con trol was utilized for the study. A dose lowering technique was utilized adhering to the principles o f ALARA. FINDINGS: No acute intracranial hemorrhage, midline shift or mass effect is present. Ventricular syst em is stable. The basilar cisterns are patent. There are no extra-axial collections. Exam is mildly, must by artifact. An old right frontoparietal infarct is noted. This is unchanged. Left frontal small hypodensity is also unchanged. This represents a small old infarct. The appearance of the brain is u nchanged. There is no calvarial fracture. Visualized portions of the sinuses and mastoid air cells ar e clear. IMPRESSION: 1. No acute intracranial findings. No change since previous exam. 2. No calvarial fracture. Electronically signed by: Torsten Dorsey M.D. 05/16/2018 10:25 AM
--- NOTE | 2018-05-16 10:29 | XRay Report ---
XR chest 1V portable CLINICAL HISTORY: weakness COMPARISON STUDY: Chest radiograph September 21, 2017. FINDINGS: A left subclavian biventricular pacer/AICD is in place. There is no pneumothorax. Lung volu mes are diminished. There is no evidence for pulmonary edema. Cardiomegaly is unchanged. There may be a trace right pleural effusion. IMPRESSION: 1. Trace right pleural effusion. 2. Cardiomegaly without evidence for pulmonary edema. Electronically signed by: Torsten Dorsey M.D. 05/16/2018 10:28 AM
--- NOTE | 2018-05-16 10:30 | XRay Report ---
XR hip LT 2-3V w pelvis CLINICAL HISTORY: fall, pain trauma. Pain. COMPARISON: 09/21/2017 DISCUSSION: Total right hip arthroplasty. Moderate degenerative change throughout all major bony stru ctures. No evidence for fracture or dislocation. No evidence for acetabular protrusion. There is no e vidence for soft tissue swelling. IMPRESSION: Degenerative and postoperative change. No acute process. The above report was generated using voice recognition software. It may contain grammatical, syntax or spelling errors. Electronically signed by: Korey Aguero M.D. 05/16/2018 10:29 AM
[2018-05-16 10:37] LABS: Albumin Globulin Ratio 0.7 (0.9-2); Alkaline Phosphatase 108 U/L (45-117); Bilirubin,Total 0.4 mg/dl (0.2-1); Total Protein 6.9 gm/dl (6.4-8.2); Troponin I 0.209 ng/ml (0-0.045)
--- NOTE | 2018-05-16 10:38 | CT Scan Report ---
CT cervical spine wo con CT DOSE: 1110.48 mGy.cm HISTORY: Trauma fall, pain TECHNIQUE: Multiaxial CT images of the cervical spine were performed and reformatted in the sagittal and coronal plane without the use of contrast. A dose lowering technique was utilized adhering to th e principles of ALARA. COMPARISON: 11/20/2017 FINDINGS: Considerable degenerative change throughout. Findings of postoperative laminectomy and fusi on. No acute bony abnormality. No evidence for compression deformity. IMPRESSION: No fractures within the cervical spine. Degenerative and postoperative change The above report was generated using voice recognition software. It may contain grammatical, syntax or spelling errors. Electronically signed by: Korey Aguero M.D. 05/16/2018 10:36 AM
--- NOTE | 2018-05-16 12:36 | History & Physical Report ---
Date of Service May 16, 2018 Assessment & Plan (1) Frequent falls: (2) Generalized weakness: This is a 83 yo M with a PMH of systolic HF, non-ischemic cardiomyopathy, bradycardia s/p AICD, persistent Atrial Fibrillation on coumadin, CAD (s/p stents), h/o pancreatic cancer (s/p Whipple in 2005), DM II, HTN, COPD and other medical problems listed below who presents with progressive generalized weakness and frequent falls. -Friend/chlorine cell tender no longer able to care for patient, manage meds, etc. -CT head without acute abnormality, no evidence of fractures on CT cervical spine or L pelvis/hip -Likely unintentional medication non-compliance. Completed med rec but unclear which meds patient has been taking -PT/OT evaluation, conditioning -Discharge planning for likely SNF placement (3) Hip pain, left: Landed on left side with fall yesterday -L hip/pelvis XR without evidence of fracture, dislocation or soft tissue swelling -Degenerative changes -Tylenol PRN (4) Elevated troponin: Chronic elevated in the past in setting of CKD, h/o CAD -No chest pain or EKG changes -Initial troponin of 0.209. Trend for completeness (5) Depression: H/o depression on Zoloft -Recent suicidal ideation at home, mentioned using a gun -Tearful about transition from home to likely SNF but seems to understand its necessity -Psych consult for medication adjustment, appreciate recommendations (6) Persistent atrial fibrillation: Continue amiodarone, Toprol (with hold parameters) -Unclear if patient has been taking medications at home -INR supratherapeutic at 3.7. Hold coumadin for now -Repeat INR in AM (7) DM2 (diabetes mellitus, type 2): Most recent a1c of 7.4 in January. Will repeat -H/o frequent episodes of hypotension during past hospitalizations -Will order basal/bolus regimen per protocol -BSG checks AC HS (8) CKD (chronic kidney disease), stage IV: Kidney function at baseline with Cr of 2.5, GFR of 22 -Hold PM dose of Torsemide -Continue trending function with daily BMP (9) Chronic systolic HF (heart failure): Appears dry on exam -Given 500ml of NSS -CXR without evidence of volume overload -Most recent echo in May 2017 with severely reduced EF: 25-30% -Hold afternoon dose of torsemide. Continue tomorrow (10) HTN (hypertension): Normotensive. Continue torsemide, Toprol with hold parameters (11) Pancreatic cancer: S/p Whipple in 2005 -Continue pancreatic enzymes with meals (12) CVA (cerebral vascular accident): H/o CVA in the past without deficits -Continue plavix (13) GERD (gastroesophageal reflux disease): Continue PPI DVT Ppx: Home coumadin Code status: DNR PCP: Aline Cuello Dispo: Admitted to [facility]. Discharge planning ordered. Patient seen in collaboration with Dr. Terrell. Please see addendum. History of Present Illness Chief Complaint: weakness, confusion Primary Care Provider: Deana Cuello This is a 83 yo M with a PMH of systolic HF, non-ischemic cardiomyopathy, bradycardia s/p AICD, persistent Atrial Fibrillation on coumadin, CAD (s/p stents), h/o pancreatic cancer (s/p Whipple in 2005), DM II, HTN, COPD and other medical problems listed below who presents with progressive generalized weakness and frequent falls. Patient lives with a friend who serves as his chlorine cell tender. Notes that patient has become progressively weaker over the past 2 months, with a fall a few days ago and also yesterday. Patient endorses hitting his head on recliner as he fell and landed on his left side. Now experiencing left hip pain. Has had decreased appetite for the past few weeks and feels confused. Friend at bedside states that patient has been having hallucinations for the past few weeks. For example, he will attempt to set a cup down when he is not actually holding one. Has been tearful about decline of health and has mentioned the idea of shooting himself. Friend feels that she can no longer care for patient at home, since she is not able to help with transfers. There is also concern that patient is receiving all medications, since chlorine cell tender has difficulty keeping track of them. Patient is reluctant with the idea of placement at assisted but feels that it is the right decision. Denies any fever, chills, lightheadedness, chest pain, palpitations, shortness of breath, nausea, vomiting, abdominal pain, dysuria, diarrhea or constipation. No lower extremity swelling. Allergies Allergy/AdvReac Type Severity Reaction Status Date / Time lisinopril Allergy Intermediate RASH Verified 05/16/18 09:48 spironolactone Allergy Unknown unkn Verified 05/16/18 09:48 zolpidem AdvReac Mild HALLUCINATI Verified 05/16/18 09:48 ONS Home Medications Home Medications Medication Instructions Recorded Confirmed Type albuterol sulfate [ProAir HFA] 2 puff INHALATION QID PRN 05/16/18 05/16/18 History amiodarone 200 mg PO DAILY 05/16/18 05/16/18 History ascorbic acid (vitamin C) [Vitamin 1,000 mg PO DAILY 05/16/18 05/16/18 History C] calcitriol 0.25 mg PO 3XWK 05/16/18 05/16/18 History cholecalciferol (vitamin D3) 1,000 units PO DAILY 05/16/18 05/16/18 History clopidogrel [Plavix] 75 mg PO DIRECTED 05/16/18 05/16/18 History docusate sodium [Stool Softener] 100 mg PO BID 05/16/18 05/16/18 History esomeprazole magnesium 40 mg PO DAILY 05/16/18 05/16/18 History finasteride 5 mg PO DAILY 05/16/18 05/16/18 History fluticasone 2 spray INTRANASAL DAILY 05/16/18 05/16/18 History fluticasone-vilanterol [Breo 1 puff INHALATION DAILY 05/16/18 05/16/18 History Ellipta] insulin asp prt-insulin aspart 9 unit SUBCUT QPM 05/16/18 05/16/18 History [Novolog Mix 70-30 U-100 Insuln] insulin asp prt-insulin aspart 15 unit SUBCUT QAM 05/16/18 05/16/18 History [Novolog Mix 70-30 U-100 Insuln] levalbuterol tartrate 2 puff INHALATION Q4 PRN 05/16/18 05/16/18 History [id number] [Pancreaze] 1 cap PO QID 05/16/18 05/16/18 History metoprolol succinate 50 mg PO BID 05/16/18 05/16/18 History potassium chloride 10 meq PO DAILY 05/16/18 05/16/18 History ranitidine HCl 150 mg PO BID 05/16/18 05/16/18 History sertraline 100 mg PO DAILY 05/16/18 05/16/18 History tamsulosin 0.4 mg PO DAILY 05/16/18 05/16/18 History torsemide 20 mg PO QPM 05/16/18 05/16/18 History torsemide 40 mg PO QAM 05/16/18 05/16/18 History warfarin 1.5 mg PO SUTUTHSA@1600 05/16/18 05/16/18 History warfarin 3 mg PO MOWEFR@1600 05/16/18 05/16/18 History Past Med/Surg History Medical History Pancreatic cancer (Chronic) "Whipple 02/04 s/p neoadjuvant chemoradiotherapy 2005 Jason Urena MD " CKD (chronic kidney disease), stage III (Chronic) HLD (hyperlipidemia) (Chronic) HTN (hypertension) (Chronic) CAD (coronary artery disease) (Chronic) DM2 (diabetes mellitus, type 2) (Chronic) COPD (chronic obstructive pulmonary disease) (Chronic) Depression (Chronic) BPH (benign prostatic hyperplasia) (Chronic) GERD (gastroesophageal reflux disease) (Chronic) CVA (cerebral vascular accident) (Chronic) Current use of residential anticoagulation (Chronic) Surgical History H/O percutaneous transluminal coronary angioplasty (Resolved) Stented coronary artery (Chronic) History of hip replacement (Chronic) History of cardiac cath (Chronic) "with stent placement" H/O hernia repair (Chronic) S/P cholecystectomy (Chronic) S/P hip replacement (Chronic) H/O cervical spine surgery (Chronic) Family History Other HTN (hypertension) Heart disease Kidney disease Social History marital status: Life Partner Current Living Situation: Significant Other Current Living Situation Comment: Patient lives with his girlfriend. current occupational status: retired Other Information That Helps Us Care for You: No Feels Safe at Home: Yes Safety Concerns: Feels Safe At This Time Smoking Status: Former smoker Do You Dip or Chew Tobacco: No Smoking End Date: 40 years ago Second Hand Exposure: No Tobacco Cessation Education Requested by Patient: No Hx Alcohol Use: No Hx Substance Use: No Beliefs That Will Affect Care: None Communication Ability: Effective Review of Systems All systems reviewed & are unremarkable except as noted in HPI & below Physical Exam 2 Vital Signs (Past 24 Hours): Last Vital Signs Temp 36.6 C 05/16/18 09:24 Pulse 70 05/16/18 11:51 Resp 18 05/16/18 11:51 BP 112/68 05/16/18 11:51 Pulse Ox 98 05/16/18 11:51 Physical Exam: General Appearance: WD/WN, no apparent distress, tearful intermittently Head: normocephalic, atraumatic Eyes: normal inspection, PERRL, EOMI ENT: hard of hearing, pharynx normal (dry mucous membranes) Neck: supple, no JVD, no adenopathy Respiratory/Chest: lungs clear to auscultation. No wheezes, rales or rhonci. No respiratory distress or accessory muscle use Cardiovascular: regular rate, rhythm, no murmur, normal peripheral pulses Abdomen/GI: normal bowel sounds, soft, non-tender to palpation Extremities/Musculoskelatal: normal inspection, no calf tenderness, normal capillary refill, no pedal edema. + Skin tear with contusion to the right medial elbow. Full ROM Neurologic/Psych: alert, depressed mood/ flat affect, oriented x 3 Results & Data Laboratory Results Short CBC 05/16/18 Range/Units 09:52 WBC 6.98 (4.8-10.8) K/uL Hgb 11.9 L (14.0-18.0) g/dL Hct 38.2 L (42-52) % Plt Count 142 (130-400) K/uL BMP 05/16/18 09:52 Sodium 137 Potassium 3.7 Chloride 102 Carbon Dioxide 27 BUN 34 H Creatinine 2.59 H Glucose 187 H Calcium 8.2 L Cardiac Enzymes 05/16/18 Range/Units 09:52 Troponin I 0.209 H* (0-0.045) ng/ml Liver Function 05/16/18 Range/Units 09:52 Total Bilirubin 0.4 (0.2-1) mg/dl AST 11 L (15-37) U/L ALT 17 (12-78) U/L Alkaline Phosphatase 108 (45-117) U/L Albumin 2.9 L (3.4-5.0) gm/dl Urine 02/15/19 Range/Units 10:00 Urine Color Yellow Urine Appearance Clear (Clear) Urine pH 5.0 (4.5-7.5) Ur Specific [place] 1.015 (1.000-1.030) Urine Protein Negative (Negative) Urine Glucose (UA) Negative (Negative) Diagnostic Findings Head CT: IMPRESSION: 1. No acute intracranial findings. No change since previous exam. 2. No calvarial fracture. Cervical Spine CT: IMPRESSION: No fractures within the cervical spine. Degenerative and postoperative change CXR: IMPRESSION: 1. Trace right pleural effusion. 2. Cardiomegaly without evidence for pulmonary edema. Hip/pelvis XR: IMPRESSION: Degenerative and postoperative change. No acute process. Supervising Physician Co-Signing Physician Notes Pt was seen and examined. Agreed with Lisa CRUZ exam, assessment and plan. 83 yo M with a PMH of systolic HF, non-ischemic cardiomyopathy, bradycardia s/p AICD, persistent Atrial Fibrillation on coumadin, CAD (s/p stents), h/o pancreatic cancer (s/p Whipple in 2005), DM II, HTN, COPD present to the ER with worsening generalized weakness and falls. Pt has been very weak and requires promotions assistant sales marketing to transfer. He had 2 falls last week due to fall. He is complaint of left hip pain. CT head done in the ER showed no acute intracranial abnormality. No evidence of fracture on imaging. Will need placement because pt is not safe to be discharged home due to risk of falls and on anticoagulant with coumadin. If pt plan to go discharge home, will need to be eval for continuing the coumadin due to the falls. Will do PT/OT eval. Fall precaution. MD Nidhi
[2018-05-16] MEDS ORDERED: DOCUSATE SODIUM 100 MG CAP PO PRN (13:52)
[2018-05-16] MEDS ORDERED: CARBOHYDRATES FOR HYPOGLYCEMIA PO PRN (13:52)
[2018-05-16] MEDS ORDERED: DEXTROSE 50% 50 ML SYRINGE IV PRN (13:52)
[2018-05-16] MEDS ORDERED: GLUCOSE 40% GEL 15 GM TUBE PO PRN (13:52)
[2018-05-16] MEDS ORDERED: GLUCOSE 10 TABS/TUBE PO PRN (13:52)
[2018-05-16] MEDS ORDERED: GLUCAGON FOR INJ 1 MG VIAL SQ PRN (13:52)
[2018-05-16] MEDS ORDERED: LEVALBUTEROL TARTRATE 15 GM HFA.AER.AD INH PRN (13:52)
[2018-05-16] MEDS ORDERED: ALBUTEROL HFA 8 GM INHALER INH PRN (14:45)
[2018-05-16] MEDS: ACETAMINOPHEN 500 MG TAB PO SCH ×2 (14:54→21:42)
--- NOTE | 2018-05-16 16:34 | Psychiatric Consultation ---
Date of Consultation May 16, 2018 Impression / Recommendations Impression 83-year-old male admitted medically for frequent falls and generalized weakness. Psychiatric consultation for depression and SI. Pt does admit to making statements prior to admission regarding thoughts to "blow my head off" if ever admitted to a custodial. Pt states he is unsure that he would act on these thoughts. He provide no other plans for how he might proceed with harming himself if her were to be transferred to a SNF. Pt is appropriately concerned and frustrated by his declining physical health, and is having difficulty coming to terms with his recent limitations. Given mood has been low for several months, we do address these concerns with recommendation for higher dose of sertraline versus trial of mirtazapine, given reports of decreased appetite and difficulty sleeping. Risks and benefits of both were reviewed. Pt verbalized preference for mirtazapine. Will plan to initiate at 7.5mg tonight, with increase as needed/tolerated. Pt does not voice intent to harm himself within the hospital setting, but would recommend monitoring safety regularly during his admission. Given unknown duration of hospitalization and ambiguity to intent to harm, would recommend that patient be re-evaluated prior to discharge/transfer. Given age and medical complexity, it is not likely that inpatient hospitalization would be beneficial - though safety concerns must be adequately addressed. Will plan to gather collateral information for patient's partner to assess her level of concern and ability to safety plan prior to disposition. Dr. Jsaon Greenwood was directly involved in review and discussion of the patient' s case and participated in medical decision making regarding treatment recommendations. (1) Depression with suicidal ideation: 05/16 - Recommend continuation of sertraline 100mg - Will trial mirtazapine 7.5mg qHS to target depressive symptoms - Recommend safety precautions as needed for level of concern, would benefit from routine checks as indicated - At this time is likely too medically complex for psychiatric admission, but would recommend patient be reassessed prior to disposition. - Facilitate aftercare/follow-up as indicated Risk Factors Assessment Male: Yes : Yes Health Problems: Yes Mental Health Diagnoses: Yes (depression) Hopelessness: Yes Protective Factors Assessment : Yes (long-term, live-in girlfriend) Responsible for Young Children: No Employed: No Stable Relationships: No Supportive Family: No Good Rapport with Provider: No CPT Code 54793 Psych History Identifying Data 83-year-old male admitted medically for frequent falls and general weakness. History of depression. Psychiatric consultation requested to assess for depression and suicidal statements made. Information is gathered from previous medical records, however, information provided by patient is not overly reliable. Chief Complaint "I've been falling, that's what's been going on. That's why I'm here." History of Present Illness Eladio Redd is an 83-year-old male with PMH of stolic HF, non-ischemic cardiomyopathy, bradycardia s/p AICD, persistent Atrial Fibrillation on coumadin , CAD (s/p stents), h/o pancreatic cancer (s/p Whipple in 2005), DM II, HTN, COPD and other medical concerns. Pt admitted s/p fall with complaints of general weakness. Pt currently resides with a girlfriend of over 10 years, who also provides the patient with assistance with ambulation and medications. Planned disposition is for transfer to a correction facility given declining health and inability of partner to provide ongoing care. Prior to this hospitalization, the patient admitted to his partner that "if I ever had to go to a home, I'd blow my head off." Pt was seen on psychiatric consult service to evaluate depression and SI as well as for medication recommendations. Pt is hard of hearing, but is also limited in his ability to provide accurate history. Pt is in significant pain, often changing positions and voicing frustration with his decline in health. We reviewed history of low mood, which he states has worsened in the last two months. He admits to decreased appetite and difficulty falling asleep in the evengings. He describes his mood as "not good." He is not aware that he is on a medication to assist with mood, and is unsure of the duration of this medication. His primary stressors are guilt regarding the level of care he has been requiring, as well as frustration and hopelessness regarding his physical health. He is understanding of his need for more extensive care, but states, "I 've had 5 friends go to a home, and they're all gone now." He is unable to provide plans as to how he would follow through with harming himself in that setting, and gives vague reports of hopelessness. When inquired about intent, he continues to respond with, "I'm not sure". Provided support to patient, recognizing that this is a difficult time, but also emphasizing the need to know that he would be able to keep himself safe, regardless of his disposition. He remains ambivalent about his intentionality with comments made. History is greatly limited by hearing loss and difficulty communicating with the patient, as well as limited knowledge of medical and psychiatric history. Would be beneficial to gather collateral information from partner or family members. Past Psychiatric History Previous Psych History: unknown, patient is a limited historian Past Medication Trials: unknown Allergies Allergy/AdvReac Type Severity Reaction Status Date / Time lisinopril Allergy Intermediate RASH Verified 05/16/18 09:48 spironolactone Allergy Unknown unkn Verified 05/16/18 09:48 zolpidem AdvReac Mild HALLUCINATI Verified 05/16/18 09:48 ONS Home Medications Home Medications Medication Instructions Recorded Confirmed Type albuterol sulfate [ProAir HFA] 2 puff INHALATION QID PRN 05/16/18 05/16/18 History amiodarone 200 mg PO DAILY 05/16/18 05/16/18 History ascorbic acid (vitamin C) [Vitamin 1,000 mg PO DAILY 05/16/18 05/16/18 History C] calcitriol 0.25 mg PO 3XWK 05/16/18 05/16/18 History cholecalciferol (vitamin D3) 1,000 units PO DAILY 05/16/18 05/16/18 History clopidogrel [Plavix] 75 mg PO DIRECTED 05/16/18 05/16/18 History docusate sodium [Stool Softener] 100 mg PO BID 05/16/18 05/16/18 History esomeprazole magnesium 40 mg PO DAILY 05/16/18 05/16/18 History finasteride 5 mg PO DAILY 05/16/18 05/16/18 History fluticasone 2 spray INTRANASAL DAILY 05/16/18 05/16/18 History fluticasone-vilanterol [Breo 1 puff INHALATION DAILY 05/16/18 05/16/18 History Ellipta] insulin asp prt-insulin aspart 9 unit SUBCUT QPM 05/16/18 05/16/18 History [Novolog Mix 70-30 U-100 Insuln] insulin asp prt-insulin aspart 15 unit SUBCUT QAM 05/16/18 05/16/18 History [Novolog Mix 70-30 U-100 Insuln] levalbuterol tartrate 2 puff INHALATION Q4 PRN 05/16/18 05/16/18 History [id number]-buibqhtu-hdugxns [Pancreaze] 1 cap PO QID 05/16/18 05/16/18 History metoprolol succinate 50 mg PO BID 05/16/18 05/16/18 History potassium chloride 10 meq PO DAILY 05/16/18 05/16/18 History ranitidine HCl 150 mg PO BID 05/16/18 05/16/18 History sertraline 100 mg PO DAILY 05/16/18 05/16/18 History tamsulosin 0.4 mg PO DAILY 05/16/18 05/16/18 History torsemide 20 mg PO QPM 05/16/18 05/16/18 History torsemide 40 mg PO QAM 05/16/18 05/16/18 History warfarin 1.5 mg PO SUTUTHSA@1600 05/16/18 05/16/18 History warfarin 3 mg PO MOWEFR@1600 05/16/18 05/16/18 History Personal History Living Arrangements Comments: Currently living in [place], [place] with his long-term , live-in girlfriend Employment Status: Retired Beliefs That Will Affect Care: None Patient History Medical History Pancreatic cancer (Chronic) "Whipple 02/04 s/p neoadjuvant chemoradiotherapy 2005 Jason Urena MD " CKD (chronic kidney disease), stage III (Chronic) HLD (hyperlipidemia) (Chronic) HTN (hypertension) (Chronic) CAD (coronary artery disease) (Chronic) DM2 (diabetes mellitus, type 2) (Chronic) COPD (chronic obstructive pulmonary disease) (Chronic) Depression (Chronic) BPH (benign prostatic hyperplasia) (Chronic) GERD (gastroesophageal reflux disease) (Chronic) CVA (cerebral vascular accident) (Chronic) Current use of exterminator termite anticoagulation (Chronic) Surgical History H/O percutaneous transluminal coronary angioplasty (Resolved) Stented coronary artery (Chronic) History of hip replacement (Chronic) History of cardiac cath (Chronic) "with stent placement" H/O hernia repair (Chronic) S/P cholecystectomy (Chronic) S/P hip replacement (Chronic) H/O cervical spine surgery (Chronic) Family History Other HTN (hypertension) Heart disease Kidney disease Social History marital status: Life Partner Current Living Situation: Significant Other Current Living Situation Comment: Patient lives with his girlfriend. current occupational status: retired Other Information That Helps Us Care for You: No Feels Safe at Home: Yes Safety Concerns: Feels Safe At This Time Smoking Status: Former smoker Do You Dip or Chew Tobacco: No Smoking End Date: 40 years ago Second Hand Exposure: No Tobacco Cessation Education Requested by Patient: No Hx Alcohol Use: No Hx Substance Use: No Beliefs That Will Affect Care: None Communication Ability: Effective Physical Exam Psychiatric Orientation: alert, oriented to person, oriented to place and oriented to time Apperance: appropriately dressed and appeared stated age Eye Contact: + fair eye contact Motor Behavior: no abnormal motor movements (observed while laying in bed, frequent re-positioning due to pain) Speech: + loud speech (likely due to hearing impairment) and normal rate/rhythm/ volume of speech Affect: + depressed affect (tearful at times) Mood: + depressed mood ("not good") Thought Process: linear/logical thought process and clear/coherent thought process Thought Content: reality based without delusions Admits to thoughts to harm himself if transferred to SNF, admits to having made a comment to "blow my head off", is ambivalent about intent, does not voice alternative plans, likely does not have means given physical condition Homicidal Thoughts: denies homicidal thoughts Cognition: attention grossly intact and language grossly intact; + recent memory not intact and + remote memory not intact Estimated Intelligence: consistent with education level Insight: + limited insight Judgement: + limited judgement Vital Signs (Past 24 Hours) Last Vital Signs Temp 36.7 C 05/16/18 15:46 Pulse 70 05/16/18 15:46 Resp 18 05/16/18 15:46 BP 100/62 05/16/18 15:46 Pulse Ox 98 05/16/18 15:46 Review of Systems Constitutional: reports decreased appetite and difficulty sleeping Cardiovascular: denied Respiratory: denied Gastrointestinal: denied Musculoskeletal: reports left hip pain Neurological: denied Psychiatric: denies symptoms other than stated above Total of at least 10 systems reviewed, pertinent positives as above and in HPI. Results & Data Medications Administered Acetaminophen (Tylenol) 1,000 mg PO Q8 MARCIAL Stop: 06/15/18 14:59 Last Admin: 05/16/18 14:54 Dose: 1,000 mg
[2018-05-16] MEDS: INSULIN ASPART 100 UNITS/ML 3 ML PEN SC SCH ×2 (16:58→20:29)
[2018-05-16] MEDS: PANCREAZE (LIPASE 16,800U) CAP PO SCH ×2 (17:05→20:31)
[2018-05-16] MEDS: LIDOCAINE 5% 1 PATCH TD SCH (20:28)
[2018-05-16] MEDS: INSULIN GLARGINE SOLOSTAR 100 UNITS/ML 3 ML PEN SC SCH (20:28)
[2018-05-16] MEDS: MIRTAZAPINE TAB 15 MG TAB PO SCH (20:30)
[2018-05-16] MEDS: METOPROLOL SUCC 50MG EXT REL TAB PO SCH (20:32)
[2018-05-17] MEDS: ACETAMINOPHEN 500 MG TAB PO SCH ×3 (05:38→22:30)
[2018-05-17 06:44] LABS: Hematocrit (blood only) 36.4 % (42-52); Hemoglobin 11.7 g/dL (14.0-18.0); Mean Corpuscular Hgb Conc 32.1 g/dL (32-36); Mean Platelet Volume 10.2 fL (7.4-10.4); Platelet Count 142 K/uL (130-400); RDW Coefficient of Variation 17.5 % (11.5-14.5); RDW Standard Deviation 60.8 fL (36.4-46.3); Red Blood Count 3.79 M/uL (4.7-6.1); White Blood Count 6.77 K/uL (4.8-10.8)
[2018-05-17 07:07] LABS: BUN Creatinine Ratio 14.5 (10-20); Calcium 7.9 mg/dl (8.5-10.1); Creatinine Clr Calc Pharmacy 21.4 ml/min; Est GFR (Non-African American) 23.3; Potassium 3.9 mmol/L (3.5-5.1)
[2018-05-17 07:18] LABS: Estimated Average Glucose 180 mg/dl
[2018-05-17 07:24] LABS: INR 3.6 (0.9-1.1)
[2018-05-17] MEDS: AMIODARONE 200 MG TAB PO SCH (07:55)
[2018-05-17] MEDS: ASCORBIC ACID 500 MG TAB PO SCH (07:55)
[2018-05-17] MEDS: CLOPIDOGREL BISULFATE 75 MG TAB PO SCH (07:55)
[2018-05-17] MEDS: TAMSULOSIN HCL 0.4 MG CAP PO SCH (07:55)
[2018-05-17] MEDS: CHOLECALCIFEROL 1,000 UNITS TAB PO SCH (07:55)
[2018-05-17] MEDS: TORSEMIDE 20 MG TAB PO SCH (07:56)
[2018-05-17] MEDS: SERTRALINE HCL 100 MG TABLET PO SCH (07:56)
[2018-05-17] MEDS: PANCREAZE (LIPASE 16,800U) CAP PO SCH ×4 (07:56→20:34)
[2018-05-17] MEDS: POTASSIUM CHLORIDE 10 MEQ TABCR PO SCH (07:56)
[2018-05-17] MEDS: METOPROLOL SUCC 50MG EXT REL TAB PO SCH ×2 (07:56→20:34)
[2018-05-17] MEDS: FINASTERIDE 5 MG TAB PO SCH (07:57)
[2018-05-17] MEDS: PANTOprazole 40 MG TAB PO SCH (07:57)
[2018-05-17] MEDS: INSULIN ASPART 100 UNITS/ML 3 ML PEN SC SCH ×4 (07:58→20:34)
[2018-05-17] MEDS: FLUTICASONE PROPIONATE NA SPR 16 GM BTL NAE SCH (07:59)
[2018-05-17] MEDS: INSULIN GLARGINE SOLOSTAR 100 UNITS/ML 3 ML PEN SC SCH (07:59)
[2018-05-17] MEDS ORDERED: MoRPHine SULFATE 4 MG/ML 1 ML CARP\\VIAL IV PRN (11:16)
--- NOTE | 2018-05-17 17:52 | Hospitalist Progress Note ---
Date of Service May 17, 2018 Assessment & Plan (1) Frequent falls: (2) Generalized weakness: Patient is an 83 yr male with with H/O Non-ischemic cardiomyopathy, bradycardia s/p AICD, persistent Atrial Fibrillation on coumadin, CAD s/p stents , h/o pancreatic cancer (s/p Whipple in 2005), DM II, HTN, COPD who presents with progressive generalized weakness and frequent falls. Imaging studies negative for any fractures Friend/autotransfusionist no longer able to care for patient PT/OT Needs Placement Case management consulted (3) Hip pain, left: Secondary to fall Hip X ray:Degenerative and postoperative change. No acute process. Pain control PT/OT Fall precautions (4) Elevated troponin: Chronic elevation of Troponin in setting of CKD Denies chest pain EKG: No acute changes (5) Depression: Continue Sertraline Started on Mitrazapine 7.5mg Qhs Appreciate Psychiatry Input Psychiatry to reassess patient prior to discharge (6) Persistent atrial fibrillation: Continue amiodarone, Metoprolol INR supratherapeutic: 3.6 today Hold coumadin Monitor INR (7) DM2 (diabetes mellitus, type 2): Hb A1C: 7.9 Continue ISS, basal Insulin Monitor BGs (8) CKD (chronic kidney disease), stage IV: Cr at baseline Monitor renal function (9) Chronic systolic HF (heart failure): CXR without evidence of volume overload Last ECHO: May 2017 with severely reduced EF: 25-30% Continue home diuretics Monitor Volume Status (10) HTN (hypertension): Relatively low BP Continue torsemide, Metoprolol with hold parameters (11) Pancreatic cancer: S/p Whipple in 2005 Continue pancreatic enzymes with meals (12) CVA (cerebral vascular accident): H/o CVA in the past without deficits Continue plavix (13) GERD (gastroesophageal reflux disease): Continue PPI DVT Px: INR supratherapeutic Resume coumadin as able Code status: DNR PCP: Aline Cuello Dispo: May need placement Subjective Patient is seen and examined at bedside Complains of Left hip pain and mild left shoulder pain since the fall Denies chest pain, SOB, dizziness No other complaints Denies suicidal thoughts Physical Exam 2 Vital Signs (Past 24 Hours): Last Vital Signs Temp 36.4 C L 05/17/18 15:20 Pulse 70 02/16/19 15:20 Resp 18 05/17/18 15:20 BP 97/66 L 05/17/18 15:20 Pulse Ox 97 05/17/18 15:20 Physical Exam: Physical Exam: Vitals signs as noted above General Appearance:Moderately built and nourished, no apparent distress Head: normocephalic, Atraumatic Eyes: normal inspection, EOMI Neck: supple, Trachea midline Respiratory/Chest: Normal breath sounds, CTA Cardiovascular: S1, S2, No murmur Abdomen/GI:Soft, Non tender, Bowel sounds present Extremities/Musculoskelatal:normal inspection, left hip tender, no edema Neurologic/Psych:AAOX3, grossly no focal neurological deficits Skin: normal color, warm, +R elbow skin tear Results & Data Laboratory Results Short CBC 05/17/18 Range/Units 06:07 WBC 6.77 (4.8-10.8) K/uL Hgb 11.7 L (14.0-18.0) g/dL Hct 36.4 L (42-52) % Plt Count 142 (130-400) K/uL BMP 05/17/18 06:07 Sodium 139 Potassium 3.9 Chloride 106 Carbon Dioxide 26 BUN 36 H Creatinine 2.45 H Glucose 167 H Calcium 7.9 L Cardiac Enzymes 05/16/18 Range/Units 19:38 Troponin I 0.211 H* (0-0.045) ng/ml
[2018-05-17] MEDS: LIDOCAINE 5% 1 PATCH TD SCH (20:34)
[2018-05-17] MEDS: MIRTAZAPINE TAB 15 MG TAB PO SCH (20:34)
[2018-05-18] MEDS: ACETAMINOPHEN 500 MG TAB PO SCH ×3 (05:14→23:17)
[2018-05-18 05:42] LABS: Hematocrit (blood only) 37.7 % (42-52); Mean Corpuscular Hgb Conc 31.8 g/dL (32-36); Mean Corpuscular Volume 96.4 fL (80-100); Mean Platelet Volume 10.1 fL (7.4-10.4); Platelet Count 155 K/uL (130-400); RDW Coefficient of Variation 17.6 % (11.5-14.5); RDW Standard Deviation 61.5 fL (36.4-46.3); Red Blood Count 3.91 M/uL (4.7-6.1); White Blood Count 6.71 K/uL (4.8-10.8)
[2018-05-18 06:08] LABS: BUN Creatinine Ratio 15.7 (10-20); Calcium 7.9 mg/dl (8.5-10.1); Creatinine Clr Calc Pharmacy 20.3 ml/min; Est GFR (African American) 25.4; Est GFR (Non-African American) 21.9
[2018-05-18 06:22] LABS: INR 2.9 (0.9-1.1)
[2018-05-18] MEDS: CLOPIDOGREL BISULFATE 75 MG TAB PO SCH (08:24)
[2018-05-18] MEDS: INSULIN ASPART 100 UNITS/ML 3 ML PEN SC SCH ×4 (08:24→20:54)
[2018-05-18] MEDS: SERTRALINE HCL 100 MG TABLET PO SCH (08:24)
[2018-05-18] MEDS: CHOLECALCIFEROL 1,000 UNITS TAB PO SCH (08:24)
[2018-05-18] MEDS: METOPROLOL SUCC 50MG EXT REL TAB PO SCH ×2 (08:25→20:53)
[2018-05-18] MEDS: AMIODARONE 200 MG TAB PO SCH (08:25)
[2018-05-18] MEDS: FINASTERIDE 5 MG TAB PO SCH ×2 (08:25→17:52)
[2018-05-18] MEDS: TORSEMIDE 20 MG TAB PO SCH (08:25)
[2018-05-18] MEDS: PANTOprazole 40 MG TAB PO SCH (08:25)
[2018-05-18] MEDS: POTASSIUM CHLORIDE 10 MEQ TABCR PO SCH (08:25)
[2018-05-18] MEDS: PANCREAZE (LIPASE 16,800U) CAP PO SCH ×4 (08:26→20:52)
[2018-05-18] MEDS: TAMSULOSIN HCL 0.4 MG CAP PO SCH (08:26)
[2018-05-18] MEDS: ASCORBIC ACID 500 MG TAB PO SCH (08:26)
[2018-05-18] MEDS: FLUTICASONE PROPIONATE NA SPR 16 GM BTL NAE SCH (08:27)
[2018-05-18] MEDS: INSULIN GLARGINE SOLOSTAR 100 UNITS/ML 3 ML PEN SQ SCH (08:27)
--- NOTE | 2018-05-18 16:29 | Hospitalist Progress Note ---
Date of Service May 18, 2018 Assessment & Plan (1) Frequent falls: (2) Generalized weakness: Patient is an 83 yr male with with H/O Non-ischemic cardiomyopathy, bradycardia s/p AICD, persistent Atrial Fibrillation on coumadin, CAD s/p stents , h/o pancreatic cancer (s/p Whipple in 2005), DM II, HTN, COPD who presents with progressive generalized weakness and frequent falls. 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 No acute process. Pain control PT/OT Fall precautions Leg pain is improving Needs Placement (4) Elevated troponin: Chronic elevation of Troponin in setting of CKD Denies chest pain EKG: No acute changes (5) Depression: Continue Sertraline Started on Mitrazapine 7.5mg Qhs Appreciate Psychiatry Input Psychiatry to reassess patient prior to discharge (6) Persistent atrial fibrillation: Continue amiodarone, Metoprolol INR supratherapeutic: On presentation Hold coumadin Monitor INR: 2.9 (7) DM2 (diabetes mellitus, type 2): Hb A1C: 7.9 Continue ISS, basal Insulin Monitor BGs (8) CKD (chronic kidney disease), stage IV: Cr at baseline Monitor renal function Cr:2.5 today (9) Chronic systolic HF (heart failure): CXR without evidence of volume overload Last ECHO: May 2017 with severely reduced EF: 25-30% Continue home diuretics Monitor Volume Status (10) HTN (hypertension): Stable Continue torsemide, Metoprolol (11) Pancreatic cancer: S/p Whipple in 2005 Continue home medications (12) CVA (cerebral vascular accident): H/o CVA in the past without deficits Continue plavix (13) GERD (gastroesophageal reflux disease): Continue PPI DVT Px: INR therapeutic Resume coumadin as able Code status: DNR PCP: Aline Cuello Dispo: needs placement Subjective Patient is seen and examined at bedside Left hip pain improving No new complaints Denies chest pain, SOB, dizziness Denies suicidal thoughts Physical Exam 2 Vital Signs (Past 24 Hours): Last Vital Signs Temp 36.6 C 05/18/18 16:08 Pulse 97 H 05/18/18 16:08 Resp 20 05/18/18 16:08 BP 114/72 05/18/18 16:08 Pulse Ox 95 05/18/18 16:08 Physical Exam: Physical Exam: Vitals signs as noted above General Appearance:Moderately built and nourished, no apparent distress Head: normocephalic, Atraumatic Eyes: normal inspection, EOMI Neck: supple, Trachea midline Respiratory/Chest: Normal breath sounds, CTA Cardiovascular: S1, S2, No murmur Abdomen/GI:Soft, Non tender, Bowel sounds present Extremities/Musculoskelatal:normal inspection, left hip tenderness improving, no edema Neurologic/Psych:AAOX3, grossly no focal neurological deficits Skin: normal color, warm, +R elbow skin tear Results & Data Laboratory Results Short CBC 05/18/18 Range/Units 05:16 WBC 6.71 (4.8-10.8) K/uL Hgb 12.0 L (14.0-18.0) g/dL Hct 37.7 L (42-52) % Plt Count 155 (130-400) K/uL BMP 05/18/18 05:16 Sodium 140 Potassium 4.0 Chloride 105 Carbon Dioxide 27 BUN 41 H Creatinine 2.58 H Glucose 157 H Calcium 7.9 L
[2018-05-18] MEDS: LIDOCAINE 5% 1 PATCH TD SCH (20:53)
[2018-05-18] MEDS: MIRTAZAPINE TAB 15 MG TAB PO SCH (20:56)
[2018-05-19 06:18] LABS: INR 2.7 (0.9-1.1); Prothrombin Time 26.1 Seconds (9.0-12.0)
[2018-05-19 06:28] LABS: BUN Creatinine Ratio 18.5 (10-20); Calcium 7.6 mg/dl (8.5-10.1); Creatinine Clr Calc Pharmacy 20.6 ml/min; Est GFR (African American) 25.6; Est GFR (Non-African American) 22.1; Potassium 3.8 mmol/L (3.5-5.1)
[2018-05-19] MEDS: ACETAMINOPHEN 500 MG TAB PO SCH ×2 (06:31→12:15)
[2018-05-19] MEDS: PANCREAZE (LIPASE 16,800U) CAP PO SCH ×2 (07:56→12:14)
[2018-05-19] MEDS: FLUTICASONE PROPIONATE NA SPR 16 GM BTL NAE SCH (07:57)
[2018-05-19] MEDS: AMIODARONE 200 MG TAB PO SCH (07:57)
[2018-05-19] MEDS: TAMSULOSIN HCL 0.4 MG CAP PO SCH (07:58)
[2018-05-19] MEDS: CLOPIDOGREL BISULFATE 75 MG TAB PO SCH (07:59)
[2018-05-19] MEDS: PANTOprazole 40 MG TAB PO SCH (08:02)
[2018-05-19] MEDS: SERTRALINE HCL 100 MG TABLET PO SCH (08:02)
[2018-05-19] MEDS: CHOLECALCIFEROL 1,000 UNITS TAB PO SCH (08:02)
[2018-05-19] MEDS: METOPROLOL SUCC 50MG EXT REL TAB PO SCH (08:02)
[2018-05-19] MEDS: POTASSIUM CHLORIDE 10 MEQ TABCR PO SCH (08:03)
[2018-05-19] MEDS: ASCORBIC ACID 500 MG TAB PO SCH (08:04)
[2018-05-19] MEDS: INSULIN GLARGINE SOLOSTAR 100 UNITS/ML 3 ML PEN SQ SCH (08:06)
[2018-05-19] MEDS: INSULIN ASPART 100 UNITS/ML 3 ML PEN SC SCH ×2 (08:06→12:13)
[2018-05-19] MEDS ORDERED: TORSEMIDE 20 MG TAB PO SCH (09:00)
[2018-05-19] MEDS ORDERED: CALCITRIOL 0.25 MCG CAPSULE PO SCH (09:00)
--- NOTE | 2018-05-19 12:27 | Hospitalist Progress Note ---
Date of Service May 19, 2018 Assessment & Plan (1) Frequent falls: (2) Generalized weakness: Patient is an 83 yr male with with H/O Non-ischemic cardiomyopathy, bradycardia s/p AICD, persistent Atrial Fibrillation on coumadin, CAD s/p stents , h/o pancreatic cancer (s/p Whipple in 2005), DM II, HTN, COPD who presents with progressive generalized weakness and frequent falls. 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 No acute process. Pain control PT/OT Fall precautions Leg pain improved Needs Placement (4) Elevated troponin: Chronic elevation of Troponin in setting of CKD Denies chest pain EKG: No acute changes (5) Depression: Continue Sertraline Started on Mitrazapine 7.5mg Qhs Appreciate Psychiatry Input Discussed with Psychiatry today (05/19/18)--OK to discharge to discharge to Rehab facility (6) Persistent atrial fibrillation: Continue amiodarone, Metoprolol INR supratherapeutic: On presentation Resume coumadin Monitor INR: 2.7 (7) DM2 (diabetes mellitus, type 2): Hb A1C: 7.9 Continue ISS, basal Insulin Monitor BGs (8) CKD (chronic kidney disease), stage IV: Cr at baseline Monitor renal function Cr:2.5 today (9) Chronic systolic HF (heart failure): CXR without evidence of volume overload Last ECHO: May 2017 with severely reduced EF: 25-30% Continue home diuretics Monitor Volume Status (10) HTN (hypertension): Stable Continue torsemide, Metoprolol (11) Pancreatic cancer: S/p Whipple in 2005 Continue home medications (12) CVA (cerebral vascular accident): H/o CVA in the past without deficits Continue plavix (13) GERD (gastroesophageal reflux disease): Continue PPI DVT Px: INR therapeutic Resume coumadin Code status: DNR PCP: Aline Cuello Dispo: Plan to discharge to Acute Rehab facility Subjective Patient is seen and examined at bedside Mild Left hip pain with movement No other complaints Denies chest pain, SOB, dizziness Denies suicidal thoughts Discussed with Psychiatry today--Ok to discharge to Rehab Physical Exam 2 Vital Signs (Past 24 Hours): Last Vital Signs Temp 36.6 C 05/19/18 07:32 Pulse 70 05/19/18 07:32 Resp 20 05/19/18 07:32 BP 111/73 05/19/18 07:32 Pulse Ox 92 05/19/18 07:32 Physical Exam: Physical Exam: Vitals signs as noted above General Appearance:Moderately built and nourished, no apparent distress Head: normocephalic, Atraumatic Eyes: normal inspection, EOMI Neck: supple, Trachea midline Respiratory/Chest: Normal breath sounds, CTA Cardiovascular: S1, S2, No murmur Abdomen/GI:Soft, Non tender, Bowel sounds present Extremities/Musculoskelatal:normal inspection, left hip tenderness improving, no edema Neurologic/Psych:AAOX3, grossly no focal neurological deficits Skin: normal color, warm, +R elbow skin tear Results & Data Laboratory Results [facility] 05/19/18 05:29 Sodium 142 Potassium 3.8 Chloride 109 H Carbon Dioxide 25 BUN 47 H Creatinine 2.56 H Glucose 93 Calcium 7.6 L
--- NOTE | 2018-05-19 12:48 | Discharge Summary ---
Date of Service May 19, 2018 Admission HPI Per Admitting Provider This is a 83 yo M with a PMH of systolic HF, non-ischemic cardiomyopathy, bradycardia s/p AICD, persistent Atrial Fibrillation on coumadin, CAD (s/p stents), h/o pancreatic cancer (s/p Whipple in 2005), DM II, HTN, COPD and other medical problems listed below who presents with progressive generalized weakness and frequent falls. Patient lives with a friend who serves as his senior mainframe programmer analyst. Notes that patient has become progressively weaker over the past 2 months, with a fall a few days ago and also yesterday. Patient endorses hitting his head on recliner as he fell and landed on his left side. Now experiencing left hip pain. Has had decreased appetite for the past few weeks and feels confused. Friend at bedside states that patient has been having hallucinations for the past few weeks. For example, he will attempt to set a cup down when he is not actually holding one. Has been tearful about decline of health and has mentioned the idea of shooting himself. Friend feels that she can no longer care for patient at home, since she is not able to help with transfers. There is also concern that patient is receiving all medications, since senior mainframe programmer analyst has difficulty keeping track of them. Patient is reluctant with the idea of placement at [facility] but feels that it is the right decision. Denies any fever, chills, lightheadedness, chest pain, palpitations, shortness of breath, nausea, vomiting, abdominal pain, dysuria, diarrhea or constipation. No lower extremity swelling. Admission Exam Per Admitting Provider Physical Exam: Vitals signs as noted above General Appearance:Moderately built and nourished, no apparent distress Head: normocephalic, Atraumatic Eyes: normal inspection, EOMI Neck: supple, Trachea midline Respiratory/Chest: Normal breath sounds, CTA Cardiovascular: S1, S2, No murmur Abdomen/GI:Soft, Non tender, Bowel sounds present Extremities/Musculoskelatal:normal inspection, left hip tenderness improving, no edema Neurologic/Psych:AAOX3, grossly no focal neurological deficits Skin: normal color, warm, +R elbow skin tear Principal Diagnosis Discharge Information Discharge Diagnosis Frequent falls Left Hip Pain Depression CKD IV Supratherapeutic INR Discharge Goals Decrease discomfort,Improve disease control, Improve function Discharge Activity Limitations Resume your previous activity Discharge Data Allergies Allergy/AdvReac Type Severity Reaction Status Date / Time lisinopril Allergy Intermediate RASH Verified 05/16/18 09:48 spironolactone Allergy Unknown unkn Verified 05/16/18 09:48 zolpidem AdvReac Mild HALLUCINATI Verified 05/16/18 09:48 ONS Consultations 05/16/18 10:51 ED Decision to Admit Stat 05/16/18 13:52 Consult Case Management - Discharge Planning Routine 05/16/18 14:00 Consult Psychiatry Routine Procedures Performed CT Head: 1. No acute intracranial findings. No change since previous exam. 2. No calvarial fracture. CXR: 1. Trace right pleural effusion. 2. Cardiomegaly without evidence for pulmonary edema. Hip X ray: Degenerative and postoperative change. No acute process. Neck CT: No fractures within the cervical spine. Degenerative and postoperative change Ordered Studies 05/16/18 09:41 CT cervical spine wo con Stat 05/16/18 09:45 CT head/brain wo con Stat Hospital Course (1) Frequent falls: (2) Generalized weakness: Patient is an 83 yr male with with H/O Non-ischemic cardiomyopathy, bradycardia s/p AICD, persistent Atrial Fibrillation on coumadin, CAD s/p stents , h/o pancreatic cancer (s/p Whipple in 2005), DM II, HTN, COPD who presents with progressive generalized weakness and frequent falls. 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 No acute process. Pain control PT/OT Fall precautions Leg pain improved Needs Placement (4) Elevated troponin: Chronic elevation of Troponin in setting of CKD Denies chest pain EKG: No acute changes (5) Depression: Continue Sertraline Started on Mitrazapine 7.5mg Qhs Appreciate Psychiatry Input Discussed with Psychiatry today (05/19/18)--OK to discharge to discharge to Rehab facility (6) Persistent atrial fibrillation: Continue amiodarone, Metoprolol INR supratherapeutic: On presentation Resume coumadin Monitor INR: 2.7 (7) DM2 (diabetes mellitus, type 2): Hb A1C: 7.9 Continue ISS, basal Insulin Monitor BGs (8) CKD (chronic kidney disease), stage IV: Cr at baseline Monitor renal function Cr:2.5 today (9) Chronic systolic HF (heart failure): CXR without evidence of volume overload Last ECHO: May 2017 with severely reduced EF: 25-30% Continue home diuretics Monitor Volume Status (10) HTN (hypertension): Stable Continue torsemide, Metoprolol (11) Pancreatic cancer: S/p Whipple in 2005 Continue home medications (12) CVA (cerebral vascular accident): H/o CVA in the past without deficits Continue plavix (13) GERD (gastroesophageal reflux disease): Continue PPI DVT Px: INR therapeutic Resume coumadin Code status: DNR PCP: Aline Cuello Dispo: Plan to discharge to Acute Rehab facility Total Time Total Time Spent Total Time Spent (In Minutes): 39 minutes Total Time Includes: Examination of the Patient, Discharge Planning, Medication Reconciliation, Communication With Other Providers and Other Discharge Plan Discharge Items Patient Disposition: Transfer Inpatient Rehab Fac Reason For Visit: WEAKNESS, FALLS, CONFUSION Discharge Diagnosis: Frequent falls Left Hip Pain Depression CKD IV Supratherapeutic INR Discharge Goals: Decrease discomfort, Improve disease control and Improve function Activity: Resume your previous activity Exercise/Sports: Gradually increase as tolerated Non-emergency contact: Primary Care Provider Call non-emergency contact if: you have any medication questions, your symptoms worsen, your pain is not controlled, your pain is worsening, your pain is unusual for you, your pain is concerning for you and you have a fever Diet: Carb Consistent or DM2 and Heart Healthy Addtl Provider Instructions: Follow up with your PCP in 1 week after being discharged from Rehab facility Get PT/INR checked tomorrow (05/20/18) and follow up with your Physician at Rehab Facility for further Coumadin dosing Your PT/INR: is 2.7 today (05/19/18). Take 1mg coumadin today Seek immediate medical attention if your symptoms reoccur or worsen Prescriptions: New mirtazapine 15 mg Tablet 7.5 mg PO HS 30 Days Qty: 15 RF: 0 Continue torsemide 20 mg tablet 40 mg PO QAM RF: 0 torsemide 20 mg tablet 20 mg PO QPM RF: 0 sertraline 100 mg tablet 100 mg PO DAILY RF: 0 potassium chloride 10 mEq tablet extended release 10 meq PO DAILY RF: 0 warfarin 3 mg tablet 1.5 mg PO SUTUTHSA@1600 RF: 0 warfarin 3 mg tablet 3 mg PO MOWEFR@1600 RF: 0 tamsulosin 0.4 mg capsule 0.4 mg PO DAILY RF: 0 esomeprazole magnesium 40 mg capsule,delayed release(DR/EC) 40 mg PO DAILY RF: 0 ranitidine HCl 150 mg tablet 150 mg PO BID RF: 0 docusate sodium 100 mg capsule 100 mg PO BID RF: 0 fluticasone 50 mcg/actuation spray,suspension 2 spray Intranasal DAILY RF: 0 calcitriol 0.25 mcg capsule 0.25 mg PO [id number] RF: 0 insulin asp prt-insulin aspart [Novolog Mix 70-30 U-100 Insuln] 100 unit/mL ( 70-30) Solution 15 unit SUBCUT QAM RF: 0 insulin asp prt-insulin aspart [Novolog Mix 70-30 U-100 Insuln] 100 unit/mL ( 70-30) Solution 9 unit SUBCUT QPM RF: 0 levalbuterol tartrate 45 mcg/actuation HFA aerosol inhaler 2 puff Inhalation Q4 PRN (Reason: wheeze, sob, cough) RF: 0 [id number] 16,[id number],800- 98,400 unit capsule,delayed release(DR/ EC) 1 cap PO QID RF: 0 amiodarone 200 mg Tablet 200 mg PO DAILY RF: 0 clopidogrel [Plavix] 75 mg Tablet 75 mg PO DIRECTED RF: 0 metoprolol succinate 50 mg tablet extended release 24 hr 50 mg PO BID RF: 0 ascorbic acid (vitamin C) [Vitamin C] 500 mg Tablet 1,000 mg PO DAILY RF: 0 albuterol sulfate [ProAir HFA] 90 mcg/actuation Hfa Aerosol Inhaler 2 puff INHALATION QID PRN (Reason: Shortness Of Breath) RF: 0 finasteride 5 mg tablet 5 mg PO DAILY RF: 0 cholecalciferol (vitamin D3) 1,000 unit Tablet 1,000 units PO DAILY RF: 0 fluticasone-vilanterol 100-25 mcg/dose blister with device 1 puff Inhalation DAILY RF: 0 Stand-Alone Forms: [facility] Discharge Orders: Discharge Order (Routine); Ordered 05/19/18 Ordered By: Jason Colbert Skilled Items Patient informed of condition?: Yes DNR: Yes Discharge Level of Care: Acute rehab Communicable Disease: No Discharge Prognosis: Improving Admission Data Admit Date/Time: 05/16/18 12:21 Attending Provider: Jason Colbert Admit Provider: Jason Colbert Primary Care Provider: Deana Cuello Other Providers: Omar Terrell ; Alondra Gonzalez Service: Medical Other Interventions: Discharge Summary Assessment (RN) Last Done: 05/19/18 13:45 Pending Studies at Discharge: No DC Date/Time DO NOT enter until pt leaves facility: 05/19/18 14:39
[2018-05-19] MEDS ORDERED: WARFARIN SOD 1 MG TAB PO SCH (16:00)
== END 2018-05-19 14:39 | DRG 948 ==
LOC: ED 09:21 → 2S 12:21 → 4E 05-18 09:56